=== PATIENT | male | born 1955 | race Caucasian/White ===

== ENCOUNTER 2017-08-17 10:33 | Observation (INO) | payer OTHER, SELFPAY ==
[2017-08-17] VITALS (12 sets, daily range): BP systolic 98–136; BP diastolic 63–79; PULSE 70–93; RESP 14–18; TEMP 36.7–36.9; O2SAT 91–100; BMI 30.1; BMI 30.2
--- NOTE | 2017-08-17 10:46 | EKG12_ITS ---
Test Reason : SYNCOPE Blood Pressure : / mmHG Vent. Rate : 090 BPM Atrial Rate : 090 BPM P-R Int : 170 ms QRS Dur : 106 ms QT Int : 398 ms P-R-T Axes : 035 -45 090 degrees QTc Int : 486 ms Normal sinus rhythm Left axis deviation T wave abnormality, consider lateral ischemia Abnormal ECG Confirmed by ASIYA FERREIRA, MINNIE ([id number]), video tape editor LUIS JAMES ([id number]) on 08/19/2017 4:05:46 PM Referred By: TEGAN Confirmed By:MINNIE BRADEN MD
--- NOTE | 2017-08-17 10:46 | RAD_ITS ---
STUDY: X-RAY CHEST REASON FOR EXAM: Male, 62 years old. Syncopal episode today. TECHNIQUE: Single AP portable view of the chest. COMPARISON: April 17, 2016. FINDINGS: Cardiac monitoring leads are present. The lungs are underexpanded with crowding of the bronchovascular markings. There is no demonstrated pleural abnormality. There is borderline cardiomegaly. Normal mediastinum and orin. Normal visualized pulmonary arteries. There is atherosclerotic tortuosity of the aortic arch and descending thoracic aorta. There is demineralization of the osseous structures. Normal visualized ribs, clavicles, and shoulders. There is no demonstrated abnormality of the visualized soft tissue structures of the upper abdomen. RAD/Chest 1 View (Portable) IMPRESSION: No radiographic evidence of acute cardiopulmonary disease. Electronically Signed: Melvina Isaac MD at 11:39 EST , Service support ,
--- NOTE | 2017-08-17 10:46 | CT_ITS ---
STUDY: CT BRAIN WITHOUT CONTRAST REASON FOR EXAM: Male, 62 years old. Syncope. Patient fell on back of head. RADIATION DOSAGE (If Supplied By Facility): CTDIvol = ( 44.99 ) mGy, DLP = ( 745.49 ) mGycm TECHNIQUE: Transaxial CT imaging of the brain was performed without administration of intravenous contrast material. Multiplanar reformations are submitted for interpretation. Individualized dose optimization techniques were used for this CT. COMPARISON: None. FINDINGS: Normal soft tissue structures. Normal calvarium. There is mild cerebral atrophy with widening of the extra-axial spaces and ventricular dilatation. There are areas of decreased attenuation within the white matter tracts of the supratentorial brain, consistent with microvascular disease changes. Normal basal ganglia and thalami. Normal brainstem. There is mild cerebellar atrophy. There is no intracranial hemorrhage. There is moderate atherosclerotic calcification of intracranial arteries. There may be mucous retention cyst within the posterior left-sided ethmoid sinus. There is deviation nasal septum towards the left. CT/Brain/Head without Contrast IMPRESSION: 1. Chronic involutional changes of the brain. Electronically Signed: Melvina Isaac MD at 11:58 EST , Service support ,
[2017-08-17] MEDS: 0.9% Normal Saline 1,000 ML 150 ML IV (11:08)
[2017-08-17 11:16] LABS: Anion Gap 8 (5-15); BUN 32 mg/dL (7-18); BUN/Creat Ratio 24.2 RATIO (10-20); Calcium,Total 9.7 mg/dL (8.5-10.1); Chloride 100 mmol/L (98-107); Creatinine, Serum 1.32 mg/dL (0.70-1.30); EST Glomerular Filtration Rate 59 mL/min (>60); Est Glom Filt Rate - Afr Amer 71 mL/min (>60); Estimated Creatinine Clearance 54.94 ml/min; Glucose 101 mg/dL (74-106); Potassium 3.6 mmol/L (3.5-5.1); Sodium Level 137 mmol/L (136-145)
[2017-08-17 11:24] LABS: Absolute Lymphocyte Count 1.85 X10^3/ul (0.83-4.51); Absolute Neutrophil Count 5.2 X10^3/uL (2.0-7.7); Basophil# 0.02 X10^3/uL; Basophil% 0.3 % (0-1); Eosinophil# 0.16 X10^3/uL; Eosinophils% 2.1 % (0-5); Hemoglobin 15.2 g/dl (13.0-16.5); Lymphocyte # 1.85 X10^3/ul (4.0); Lymphocyte % 23.8 % (19-41); Mean Corp Hgb Conc 36.2 g/gl (32-36); Mean Platelet Vol. 10.3 fl (6.2-12.0); Monocyte# 0.56 X10^3/uL; Monocyte% 7.2 % (0-10); Neutrophil # 5.18 X10^3/uL (2.7-7.7); Neutrophil % 66.5 % (47-70); Platelet Count 182 K/mm3 (150-450); RBC Distribution Width CV 12.5 % (11.6-14.6); RBC Distribution Width SD 37.3 fl (35.1-43.9); Red Blood Count 5.06 M/mm3 (4.6-6.2); White Blood Count 7.8 K/mm3 (4.4-11.0)
[2017-08-17 11:25] LABS: POSITIVE COUNT NO; POSITIVE DIFFERENTIAL NO; POSITIVE MORPHOLOGY NO
--- NOTE | 2017-08-17 12:06 | HP.PCM_ITS ---
Problem List (1) Syncope and collapse Status: Acute (2) Essential (primary) hypertension Status: Chronic (3) DM2 (diabetes mellitus, type 2) Status: Chronic History of Present Illness Date of Admission: 08/17/17 Chief Complaint: Passed out The patient is a 62 year old M with past medical history cigar for hypertension BPH coronary artery disease managed with only medications who presents after passing out. 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 He did not recall feeling lightheaded prior to the fall. He did not experience any chest pain prior to his passing out there was no witness account of his seizure activity. He was brought to the emergency department where his initial workup was unremarkable. Patient filled his syncopal episode was related to his low glucose however glucose level on admission was 110. Past Medical History Past Medical History (Chronic Problems): Chronic Problems Essential (primary) hypertension (Chronic) DM2 (diabetes mellitus, type 2) (Chronic) Allergies No Known Allergies Allergy (Verified 08/17/17 10:34) Home Medications: Ambulatory Orders Medication Instructions Recorded Amlodipine [Norvasc] 5 mg PO DAILY 10/05/16 Insulin Aspart [Novolog Flexpen 0 units SC 4X/DAY 10/05/16 ([facility])] Lisinopril [Prinivil] 10 mg PO DAILY 10/05/16 Metformin HCl [Glucophage] 500 mg PO DAILY 10/05/16 Metoprolol Tartrate [Lopressor 150 mg PO BID 10/05/16 (Beta Keisha)] Nortriptyline HCl 30 mg PO DAILY 10/05/16 Calcium Carbonate [Calcium] 100 mg PO DAILY 08/17/17 Indomethacin [Indocin] 25 mg PO BIDCM 08/17/17 [place]-3 Fatty Acids/Fish Oil [Fish 100 mg PO BID 08/17/17 Oil 1,000 mg Capsule] Pregabalin [Lyrica] 25 mg PO BID 08/17/17 Tamsulosin HCl [Flomax] 0.4 mg PO DAILY 08/17/17 Smoking Status: Never smoker - *Family History Paternal History Items: Heart Disease Sibling History Items: Heart Disease Review of Systems Constitutional: Denies: Anorexia, Chills, Fever, Night Sweats, Weight Change HEENT: Denies: Head Aches, Sinus Congestion, Sinus Drainage Cardiovascular: Reports: Syncope. Denies: Chest Pain, Orthopnea, Palpitations, Paroxysmal Noc. Dyspnea Respiratory: Denies: Cough, Shortness of breath at rest, Shortness of breath upon exertion, Sputum production Gastrointestinal: Denies: Abdominal Pain, Hematemesis, Hematochezia, Nausea, Melena, Vomiting Genitourinary: Denies: Dysuria, Frequency, Hematuria, Urgency Musculoskeletal: Denies: Joint Pain, Joint Tenderness Skin: Denies: Rash Neurological: Denies: Focal weakness, Numbness, Tingling Psychiatric: Denies: Homicidal Ideations, Suicidal Ideations Hematologic/ Lymphatic: Denies: Easy Bruising, Easy Bleeding VTE Information - Inpt Only VTE Present on Admission: No VTE Mechan Device Prophylaxis: Knee High RICKIE Hose VTE Pharm Prophylaxis ordered?: Yes Patient Problems: Active and Suspected Problems Syncope and collapse (Acute) Objective: GENERAL: cooperative HEENT: Clear conjunctiva, NECK; supple, normal thyroid, CHEST: Clear to auscultation bilaterally, HEART: Regular S1 S2, no audible murmurs ABDOMEN: soft, non-tender, normoactive bowel sounds, RECTAL: deferred EXTREMITIES: No edema, no clubbing, no cyanosis. 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 SKIN: No rash - Physical Exam Vital Signs Temp Pulse Resp BP Pulse Ox 98.0 F 92 17 107/78 95 08/17/17 10:34 08/17/17 11:36 08/17/17 11:36 08/17/17 11:36 08/17/17 11:36 Oxygen Delivery Method Room Air Weight: 87.3 kg Body Mass Index (BMI) 30.1 Finger Stick Blood Glucose 76 Laboratory Tests Past 24 Hrs 08/17/17 08/17/17 10:54 10:54 WBC 7.8 RBC 5.06 Hgb 15.2 Hct 42.0 MCV 83.0 MCH 30.0 MCHC 36.2 H RDW 12.5 RDW Differential 37.3 Plt Count 182 MPV 10.3 Immature Gran % (Auto) 0.100 Neut % (Auto) 66.5 Lymph % (Auto) 23.8 [place] % (Auto) 7.2 Eos % (Auto) 2.1 Baso % (Auto) 0.3 Absolute Neuts (auto) 5.2 Absolute Lymphs (auto) 1.85 Total Counted Not Reportable Sodium 137 Potassium 3.6 Chloride 100 Carbon Dioxide 29.0 Anion Gap 8 BUN 32 H Creatinine 1.32 H Estim Creat Clear Calc 54.94 Est GFR (MDRD) Af Amer 71 Est GFR (MDRD) Non-Af 59 L BUN/Creatinine Ratio 24.2 H Glucose 101 Calcium 9.7 Troponin I < 0.02 Assessment/Plan Active and Suspected Problems Syncope and collapse (Acute) Patient is a 62-year-old gentleman presented with syncopal episode 1. Syncopal episode: Patient has been admitted to monitored bed for continuous telemetry monitoring. Requested for every shift orthostatic checks. As part of his management ordered serial cardiac enzymes 2D echo and a nuclear stress test in a.m. 2. CAD with no previous intervention per patient managed with only medical therapy 3. BPH symptoms controlled on Flomax 4. Diabetes mellitus type 2: he is on metformin held on admission please and Accu-Cheks before meals and at bedtime with sliding scale coverage 5. DVT prophylaxis SC Lovenox Code Visit OBSV E&M: [id number] Initial observation care L3
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
--- NOTE | 2017-08-17 12:19 | ED.RN ---
JACOB FROM [facility]; WILL PASS INFORMATION ON TO A NURSE AND WILL HAVE SOMEONE CALL US BACK
--- NOTE | 2017-08-17 14:03 | ED.RN ---
JACOB WITH [facility]; DOES NOT HAVE AN FURTHER INFORMATION IN REGARDS TO ADMITTING PT IF WE FEEL THE NEED TO ADMIT THE PT TO OUR FLOOR WE CAN BUT HE (JACOB) CANNOT AUTHORIZE IT
--- NOTE | 2017-08-17 15:31 | ED.RN ---
[facility] TO [facility]ACH [facility] WITH NO SUCCESS
--- NOTE | 2017-08-17 17:14 | ED.RN ---
ATTEMPTED CONTACTING THE [facility] FOR STATUS ON THE PT; TRIED ALL BED CONTROL EXTENSIONS LISTED AND THERE WAS NO ANSWER OR WAY TO LEAVE A MESSAGE
--- NOTE | 2017-08-17 17:53 | ED.RN ---
ATTEMPTED TO CALL [facility]; NO ANSWER AND NO OPTION TO LEAVE A MESSAGE
--- NOTE | 2017-08-17 19:06 | NURSING ---
CALLED [facility] AND SPOKE [facility] BENJI AND SHE SAID THEY ARE NOT TAKING ANY OUTSIDE TRANSFERS SO THE PATIENT IS ALLOWED TO STAY HERE.
[2017-08-17] MEDS: 0.9% Normal Saline 1,000 ML 100 ML IV (20:37)
[2017-08-17] MEDS: Metoprolol Tartrate 100 MG Tablet 150 MG PO (21:58)
[2017-08-17] MEDS: Pregabalin 25 MG Capsule PO (22:04)
[2017-08-18 03:00] VITALS: PULSE 79
[2017-08-18 03:04] LABS: Partial Thromboplast Time 27.9 Seconds (24.1-36.2)
[2017-08-18 03:20] LABS: Hematocrit 40.6 % (40-54); Hemoglobin 14.6 g/dl (13.0-16.5); Mean Corpuscular Hgb 29.7 pg (27.0-32.0); Mean Corpuscular Volume 82.7 fL (80-94); Mean Platelet Vol. 10.5 fl (6.2-12.0); Platelet Count 172 K/mm3 (150-450); RBC Distribution Width CV 12.4 % (11.6-14.6); Red Blood Count 4.91 M/mm3 (4.6-6.2)
[2017-08-18 03:23] LABS: Scan Indicated on CBC? Y/N NO
[2017-08-18 03:31] LABS: Anion Gap 10 (5-15); BUN 23 mg/dL (7-18); BUN/Creat Ratio 22.3 RATIO (10-20); Calcium,Total 8.7 mg/dL (8.5-10.1); Chloride 104 mmol/L (98-107); Creatinine, Serum 1.03 mg/dL (0.70-1.30); EST Glomerular Filtration Rate 78 mL/min (>60); Est Glom Filt Rate - Afr Amer 94 mL/min (>60); Estimated Creatinine Clearance 67.96 ml/min; Glucose 67 mg/dL (74-106); Magnesium 1.9 mg/dL (1.6-2.6); Sodium Level 142 mmol/L (136-145)
[2017-08-18 04:00] VITALS: BP 144/93; PULSE 78; RESP 16; TEMP 36.9; O2SAT 99
[2017-08-18 04:49] VITALS: BP 140/86; BP 144/93; BP 146/94; PULSE 77; PULSE 78; PULSE 80
[2017-08-18] MEDS: Lisinopril 10 MG Tablet PO (05:17)
--- NOTE | 2017-08-18 05:55 | EKGRS_ITS ---
Test Reason : AM EKG Blood Pressure : / mmHG Vent. Rate : 079 BPM Atrial Rate : 079 BPM P-R Int : 168 ms QRS Dur : 106 ms QT Int : 438 ms P-R-T Axes : 038 -21 098 degrees QTc Int : 502 ms Normal sinus rhythm T wave abnormality, consider lateral ischemia Abnormal ECG When compared with ECG of 17-AUG-2017 10:38, MANUAL COMPARISON REQUIRED, DATA IS UNCONFIRMED Confirmed by ASIYA FERREIRA, MINNIE ([id number]), legal editor LUIS JAMES ([id number]) on 08/20/2017 1:43:04 PM Referred By: Confirmed By:MINNIE BRADEN MD
--- NOTE | 2017-08-18 05:55 | ECHOD_ITS ---
Reason For Study: Syncope/Near Syncope Procedure This was a 2D Doppler, Color Flow transthoracic echocardiogram. Exam performed portable in patient room. Left Ventricle Normal LV size. Left ventricular systolic function is normal. The estimated ejection fraction is 60 %. No evidence for diastolic dysfunction. No regional wall motion abnormalities noted. Right Ventricle Normal RV size. Normal systolic function. Atria Normal left atrium. Normal right atrium. Mitral Valve Normal mitral valve. Trivial eccentric mitral valve insufficiency. Tricuspid Valve Normal tricuspid valve. Trivial tricuspid valve insufficiency. Normal pulmonary artery pressure. Aortic Valve Normal aortic valve. Trisinus/trileaflet aortic valve. Pulmonic Valve Normal pulmonic valve. Great Vessels Normal aortic root. The pulmonary artery is normal size. Normal inferior vena cava. Pericardium/Pleural No pericardial effusion. MMode/2D Measurements & Calculations LVIDd: 4.5 cm IVSd: 1.1 cm Ao root diam: 3.1 cm LVIDs: 3.0 cm LVPWd: 0.97 cm LA dimension: 4.5 cm RVDd: 3.0 cm FS: 33.6 % LAV(MOD-bp): 26.6 ml LA A4 area: 10.1 cm2 RA A4 area: 5.8 cm2 LAV(MOD-bp) Indexed: 13.7 ml/m2 LAV(MOD-sp2): 30.8 ml LAV(MOD-sp4): 20.6 ml Doppler Measurements & Calculations MV E max eric: 54.4 cm/sec Lat Peak E' Eric: 7.1 cm/sec Med Peak E' Eric: 4.4 cm/sec MV A max eric: 79.0 cm/sec E/E' lat: 7.7 E/E' med: 12.4 MV E/A: 0.69 Ao V2 max: 105.4 cm/sec LV V1 max: 89.8 cm/sec Ao max P.4 mmHg LV V1 max P.2 mmHg Ao V2 mean: 85.7 cm/sec Ao mean P.1 mmHg Ao V2 VTI: 21.4 cm Interpretation Summary No evidence for diastolic dysfunction. Normal LV size. Left ventricular systolic function is normal. The estimated ejection fraction is 60 %. Ordering Physician: Tr Gutierrez Referring Physician: [facility] Performed By: Chandni Hull RDCS, RVT
[2017-08-18 06:35] LABS: Bedside Glucose 92 mg/dL (70-110)
[2017-08-18 09:57] VITALS: BP 146/86; PULSE 88; RESP 15; TEMP 36.6; O2SAT 96
[2017-08-18 10:00] VITALS: BP 146/86; PULSE 88
[2017-08-18] MEDS: Tamsulosin HCl 0.4 MG Capsule PO (10:00)
[2017-08-18] MEDS: Metoprolol Tartrate 100 MG Tablet 150 MG PO (10:00)
[2017-08-18] MEDS: amLODIPine 5 MG Tablet PO (10:01)
--- NOTE | 2017-08-18 10:08 | CASEMGMT ---
Received message from Kathleen at [place] and she would like update on pt. Message left with Kathleen at this time and updated that pt is observation and is getting ECHO and Stress test here this am. Augustus TOLEDO CM
[2017-08-18] MEDS: Pregabalin 25 MG Capsule PO (10:13)
[2017-08-18] MEDS: Calcium (Elemental) 500 MG Tablet PO (10:14)
[2017-08-18] MEDS: Nortriptyline 10 MG Capsule 30 MG PO (10:15)
--- NOTE | 2017-08-18 12:09 | STRESSREP ---
Stress Test Report Pharmacologic myocardial perfusion stress test. 62-year-old man with a history of syncope. Stress protocol: Resting EKG demonstrated normal sinus rhythm with rate of 87 bpm. Resting blood pressure is 130/88 mmHg. The patient exercised according to the regular Elvis protocol for total duration of 3 minutes attaining 69% of the maximum predicted heart rate and a workload of 4.9 metabolic equivalents. The patient was noted to have shortness of breath and with failure to obtain the exercise goal it was switched to a pharmacologic stress test. 0.4 mg regadenoson was infused per usual protocol followed by rapid intravenous saline flush injection continuous EKG monitoring was performed. At rest there were no ST or T-wave changes noted suggest abnormal flow reserve at peak infusion no ST or T-wave changes were noted suggest abnormal flow reserve. The resting blood pressure was with a final blood pressure 132/80 mmHg. Myocardial perfusion protocol. 11.6 mCi of technetium 99m sestamibi was injected at rest. 0.4 mg regadenoson was infused per usual protocol. At peak infusion 33.9 mCi of technetium 99m sestamibi was injected. Stress images were obtained. Stress and rest images were reconstructed and compared in the short axis vertical long and horizontal long axis. Gated images were also obtained. Perfusion SPECT analysis. Review of the stress images demonstrated normal uptake of tracer noted in all areas of the myocardium. The resting images similarly demonstrated normal uptake of tracer in all areas of the myocardium. There is significant GI and diaphragmatic attenuation artifact noted. No obvious reversibility is noted and no previous infarct is noted. Gated SPECT analysis. Gated ejection fraction is 56%. Conclusion: Normal pharmacologic myocardial perfusion stress test. Normal ejection fraction.
[2017-08-18 12:30] LABS: Bedside Glucose 52 mg/dL (70-110)
--- NOTE | 2017-08-18 12:55 | PCM.PN.HOSP ---
Patient Problems: Active and Suspected Problems Syncope and collapse (Acute) Subjective: No new events. Vitals/I&O's: Vital Signs Temp Pulse Resp BP Pulse Ox 36.6 C 88 15 146/86 H 96 08/18/17 09:57 08/18/17 10:00 08/18/17 09:57 08/18/17 10:00 08/18/17 09:57 Oxygen Delivery Method Room Air Weight: 84.9 kg Body Mass Index (BMI) 30.2 Orthostatic Vital Signs Start: 08/18/17 04:49 Freq: q24h Status: Active Protocol: Activity Type Activity Date Activity User E-Sign Co-Sign Detail Recorded Client Recorded Date Recorded By Document 08/18/17 04:49 [employer] [id number] 08/18/17 04:51 [employer] 08/18/17 04:49 Orthostatic Vitals Standing -Blood Pressure (90/60-120/80 mm Hg) 140/86 H -Extremity Use Right Arm -Pulse Rate (60-100 beats/min) 80 Sitting -Blood Pressure (90/60-120/80 mm Hg) 146/94 H -Extremity Use Right Arm -Pulse Rate (60-100 beats/min) 77 Lying -Blood Pressure (90/60-120/80 mm Hg) 144/93 H -Extremity Use Right Arm -Pulse Rate (60-100 beats/min) 78 Intake and Output for Last 24 Hours 08/16/17 08/17/17 08/18/17 23:59 23:59 23:59 Intake Total 2318 / 2318 Output Total 250 / 250 Balance 2067 / 2067 General: Alert HEENT: Atraumatic, Normocephalic Neck: No Nodes, Thyroid Normal Size and Texture Lungs: Clear to auscultation, Normal air movement, No rhonchi, No wheeze Cardiovascular: Regular rate, Regular Rhythm, Normal S1, Normal S2, No murmurs Abdomen: Bowel Sounds Present, Soft, Non Tender, Non-Distended, No Hepato-splenomegaly Extremities: No edema, No Calf Tenderness Psych/Mental Status: Normal Affect, Appropriate Laboratory Results 08/18/17 02:20: WBC 8.0, RBC 4.91, Hgb 14.6, Hct 40.6, MCV 82.7, MCH 29.7, MCHC 36.0, RDW 12.4, RDW Differential 37.0, Plt Count 172, MPV 10.5 08/18/17 02:20: Sodium 142, Potassium 4.0, Chloride 104, Carbon Dioxide 28.0, Anion Gap 10, BUN 23 H, Creatinine 1.03, Estim Creat Clear Calc 67.96, Est GFR (MDRD) Af Amer 94, Est GFR (MDRD) Non-Af 78, BUN/Creatinine Ratio 22.3 H, Glucose 67 L, Calcium 8.7, Magnesium 1.9 08/18/17 02:20: APTT 27.9 08/18/17 02:20: Troponin I < 0.02 08/18/17 06:10: Troponin I < 0.02 08/18/17 06:18: POC Glucose 92 08/18/17 12:11: POC Glucose 52 L Current Medications Acetaminophen (Tylenol) 650 mg PO Q6H PRN PRN PRN Reason: Mild Pain (scale 0-3)/T>100.7 Al Hydroxide/Mg Hydroxide (Mylanta Ii) 30 ml PO Q6H PRN PRN PRN Reason: Gastric burning Amlodipine Besylate (Norvasc) 5 mg PO DAILY [facility] Last Admin: 08/18/17 10:01 Dose: 5 mg Calcium Carbonate (Os-Larry 500) 500 mg PO DAILY [facility] Last Admin: 08/18/17 10:14 Dose: 500 mg Dextrose (D50w Syringe) 0 gm IV X1 PRN; Protocol PRN Reason: Hypoglycemia Enoxaparin Sodium (Lovenox) 40 mg SC DAILY@1000 DIMPLE Glucagon () 1 mg IM .X1 PRN PRN Reason: Hypoglycemia Sodium Chloride () 1,000 mls @ 100 mls/hr IV .Q10H [facility] Stop: 08/19/17 01:24 Last Admin: 08/17/17 20:37 Dose: 100 mls/hr Insulin Aspart (Novolog Flexpen ([facility])) 0 units SC ACHS DIMPLE PRN Reason: Protocol Last Admin: 08/18/17 12:15 Dose: Not Given Lisinopril (Zestril) 10 mg PO DAILY [facility] Last Admin: 08/18/17 05:17 Dose: 10 mg Magnesium Hydroxide (Milk Of Magnesia) 30 ml PO DAILY PRN PRN Reason: Constipation Metoprolol Tartrate (Lopressor (Beta Keisha)) 150 mg PO BID [facility] Last Admin: 08/18/17 10:00 Dose: 150 mg Nortriptyline HCl (Pamelor) 30 mg PO DAILY [facility] Last Admin: 08/18/17 10:15 Dose: 30 mg Oxycodone HCl (Oxyir) 5 mg PO Q4H PRN PRN PRN Reason: Moderate Pain (pain scale 4-5) Pregabalin (Lyrica) 25 mg PO BID [facility] Last Admin: 08/18/17 10:13 Dose: 25 mg Promethazine HCl (Phenergan (Ll)) 12.5 mg IV Q6H PRN PRN PRN Reason: NAUSEA/VOMITING Sodium Chloride () 5 - 30 ml IV UD PRN PRN Reason: SALINE FLUSH Tamsulosin HCl (Flomax) 0.4 mg PO DAILY [facility] Last Admin: 08/18/17 10:00 Dose: 0.4 mg Zolpidem Tartrate (Ambien (Generic)) 5 mg PO QHS PRN PRN PRN Reason: INSOMNIA Assessment/Plan Active and Suspected Problems Syncope and collapse (Acute) 1. Syncope Suspect vasovagal but still unclear what the etiology was. Stress test and echocardiogram are unremarkable. Patient states that he does not drink alcohol and states that he drinks about a liter of non-caffeinated fluid per day. States he drinks about a cup of coffee per day and on relocation may be one more cup of coffee a later. Patient said he did have some ptosis in the morning. Patient blood sugar was in the 1 teens when I assessed him so and patient states that he has tolerated those blood sugars even though his blood sugars normally in the 200 300 range. No feel that it was related with hypoglycemia but this single episode may been a multifactorial issue in regards to lower blood sugar for him plus may be some dehydration as well. Advised patient to drink more fluids per day. But no additional cardiac workup is necessary at this time.
--- NOTE | 2017-08-18 12:58 | PCM.DC ---
- Discharge Diagnoses Current Active Problems: Current Active and Chronic Problems Syncope and collapse (Acute) Essential (primary) hypertension (Chronic) DM2 (diabetes mellitus, type 2) (Chronic) You will use the following diet at home:: Calorie/Carbohydrate Controlled (specify 1200, 1400, etc) - 1800 kcal/day., Other - drink more non-caffeinated fluids Your food should be the consistency of: Regular Discharge Activity: Return to Normal Activity Call your doctor if you observe: Fever of 101 or Higher, Shortness of breath, Fainting spells, Chest pain Allergies/Adverse Reactions: Allergies No Known Allergies Allergy (Verified 08/17/17 10:34) Medications to take at Discharge Amlodipine [Norvasc] 10 mg PO DAILY 10/05/16 Insulin Aspart [Novolog Flexpen] See Protocol SC 4X/DAY 10/05/16 Lisinopril [Prinivil] 20 mg PO DAILY 10/05/16 Metformin HCl [Glucophage] 500 mg PO DAILY 10/05/16 Metoprolol Tartrate [Lopressor (beta jay)] 150 mg PO BID 10/05/16 Nortriptyline HCl 20 mg PO DAILY 10/05/16 Calcium Carbonate [Calcium] 500 mg PO DAILY 08/17/17 Cholecalciferol (VIT D3) [Vitamin D3] 1,000 unit PO DAILY 08/17/17 Indomethacin [Indocin] 25 mg PO BIDCM 08/17/17 Insulin Glargine,Hum.rec.anlog [Lantus] 65 unit SQ BID 08/17/17 Liraglutide [Victoza] 1.8 mg SQ DAILY 08/17/17 [place]-3 Fatty Acids/Fish Oil [Fish Oil 1,000 mg Capsule] 1,000 mg PO BID 08/17/17 Pregabalin [Lyrica] 25 mg PO BID 08/17/17 Tamsulosin HCl [Flomax] 0.4 mg PO DAILY 08/17/17 Primary Care Physician: [facility] [Primary Care Provider] - Within 2 Weeks Proposed Discharge Date: 08/18/17
--- NOTE | 2017-08-18 13:00 | PCM.DC.SUM ---
Discharge Date and Diagnosis - Problem List Patient Problems: Active and Suspected Problems Syncope and collapse (Acute) Date of Admission: 08/17/17 Date of Discharge: 08/18/17 - Primary Discharge Diagnosis Active and Suspected Problems Syncope and collapse (Acute) - Secondary Discharge Diagnosis Chronic Problems Essential (primary) hypertension (Chronic) DM2 (diabetes mellitus, type 2) (Chronic) Hospital Course and Treatment Imaging Results: 08/18/17 05:55 Echo Complete [ECHO] AM (NON MEDS) Nuclear Stress Test - Chemical [NM] Routine Operations: None Procedures: 2-D Echocardiogram, Stress test Summary of Care Provided: The patient is a 62 year old M presented with a syncopal episode. 1. Syncope Suspect vasovagal but still unclear what the etiology was. Stress test and echocardiogram are unremarkable. Patient states that he does not drink alcohol and states that he drinks about a liter of non-caffeinated fluid per day. States he drinks about a cup of coffee per day and on relocation may be one more cup of coffee a later. Patient said he did have some ptosis in the morning. Patient blood sugar was in the 1 teens when I assessed him so and patient states that he has tolerated those blood sugars even though his blood sugars normally in the 200 300 range. No feel that it was related with hypoglycemia but this single episode may been a multifactorial issue in regards to lower blood sugar for him plus may be some dehydration as well. Advised patient to drink more fluids per day. But no additional cardiac workup is necessary at this time.[] Discharge Diet: 1800 Calorie Control Diet Discharge Activity: Return to Normal Activity Call your doctor if you observe: Fever of 101 or Higher, Shortness of breath, Fainting spells, Chest pain Home Medications: Medications to take at Discharge Amlodipine [Norvasc] 10 mg PO DAILY 10/05/16 Insulin Aspart [Novolog Flexpen] See Protocol SC 4X/DAY 10/05/16 Lisinopril [Prinivil] 20 mg PO DAILY 10/05/16 Metformin HCl [Glucophage] 500 mg PO DAILY 10/05/16 Metoprolol Tartrate [Lopressor (beta jay)] 150 mg PO BID 10/05/16 Nortriptyline HCl 20 mg PO DAILY 10/05/16 Calcium Carbonate [Calcium] 500 mg PO DAILY 08/17/17 Cholecalciferol (VIT D3) [Vitamin D3] 1,000 unit PO DAILY 08/17/17 Indomethacin [Indocin] 25 mg PO BIDCM 08/17/17 Insulin Glargine,Hum.rec.anlog [Lantus] 65 unit SQ BID 08/17/17 Liraglutide [Victoza] 1.8 mg SQ DAILY 08/17/17 [facility]-3 Fatty Acids/Fish Oil [Fish Oil 1,000 mg Capsule] 1,000 mg PO BID 08/17/17 Pregabalin [Lyrica] 25 mg PO BID 08/17/17 Tamsulosin HCl [Flomax] 0.4 mg PO DAILY 08/17/17 Primary Care Physician: [facility],[place] [Primary Care Provider] - Within 2 Weeks Disposition: Home Minutes spent on discharge:: 28 Patient Condition:: Fair Meaningful Use Info Meaningful Use Diagnoses (Choose all that apply): None applicable Code Visit OBSV E&M: 51138 Observation care discharge
[2017-08-18 13:57] VITALS: BP 127/78; PULSE 90; RESP 14; TEMP 36.5; O2SAT 99
[2017-08-19 09:36] LABS: Bedside Glucose 46 mg/dL (70-110)
[2017-08-19 09:36] LABS: Bedside Glucose 94 mg/dL (70-110)
[2017-08-19 09:36] LABS: Bedside Glucose 66 mg/dL (70-110)
--- NOTE | 2017-08-19 09:50 | CASEMGMT ---
Call received from JENNIFER Wang @ [facility] requesting clinical. Information faxed to [phone] and dc date given. Osorio HUIZARN RN ACM
== END 2017-08-18 12:59 | disposition home or self-care (01) ==
LOC: ED 11:23 → PCU 12:16
PROVIDERS: Admitting Provider Internal Medicine; Emergency Provider Emergency Medicine
DX: R55 Syncope and collapse (principal); I10 Essential (primary) hypertension; E11.9 Type 2 diabetes mellitus without complications; N40.0 Benign prostatic hyperplasia without lower urinary tract symptoms; I25.10 Atherosclerotic heart disease of native coronary artery without angina pectoris; Z79.899 Other long term (current) drug therapy; Z79.4 Long term (current) use of insulin
CPT/HCPCS: 36415; 70450; 71045; 78452; 80048; 82962; 83735; 84484; 85025; 85027; 85730; 93005; 93017; 93306; 96360; 96361; 99218; 99285; A9500; J7030; A4216; G0378; J2785

== ENCOUNTER 2018-01-26 21:44 | Emergency (ER) | payer OTHER, SELFPAY ==
[2018-01-26 21:44] VITALS: BP 147/94; PULSE 103; RESP 16; TEMP 37.1; O2SAT 95; BMI 31.4
--- NOTE | 2018-01-26 23:18 | ED.VISSUMM ---
- ER Visit Summary Date of Service: 01/26/18 Chief Complaint: Left earache History of Present Illness: The patient is a 62 M history of noncemented diabetes, hypertension and spinal stenosis. Basically states for 1 week he has had left ear pain. He was seen at the [facility] and started on both amoxicillin and eardrops. On Friday. States is getting worse instead of better. Denies other symptoms. Physical Examination: Well-appearing white male. Vital signs are stable afebrile. He does not look septic toxic. No acute distress. Posterior pharynx unremarkable. Some dental decay and cavities. Right ear is unremarkable. Left has obvious otitis externa and the ear canal is completely closed I cannot see the eardrum at all. Currently there is no discharge or blood. Neck nontender. No lymphadenopathy. Lungs are clear to auscultation. Heart regular rhythm no murmur. Abdomen soft nontender. Neurologically is awake and alert. Test Results: None Emergency Department Course and Treatment: I placed a left ear wick in his left ear. That should help and now we will get the eardrops down the ear. He will continue both the amoxicillin and the Corticosporin eardrops. He knows if this is not improving he will follow-up with ENT. Treatment Plan: Discharged on current therapy. Disposition: Discharge Impression: Acute left otitis externa Ear wick placed by ER physician This note was generated with [employer] dictation software. It may contain incorrect words, spelling, and punctuation that were not noted in review of the chart prior to signing ED Disposition - Plan for ED Patient: Chief Complaint: Ear Problem [facility]errals: [facility] [Primary Care Provider] -
--- NOTE | 2018-01-26 23:20 | ED.DEP ---
ED Disposition - Plan for ED Patient: Disposition: Home or Assisted Living Chief Complaint: Ear Problem Instructions: ED Otitis Externa Referrals: [facility] [Primary Care Provider] - As Needed Tito Cantu MD [STAFF PHYSICIAN] - 1-2 Days if not improving Additional Instructions: Continue eardrops to left ear 3 drops 4 times a day. The canal was too swollen for the drops to go in. The earwax should help that. Continue the amoxicillin 3 times a day. If not improving in 2 days follow-up with the ear nose and throat Dr. Cantu. Tylenol and Motrin for pain.
== END 2018-01-26 23:36 | disposition home or self-care (01) ==
PROVIDERS: Emergency Provider Emergency Medicine
DX: H60.502 Unspecified acute noninfective otitis externa, left ear (principal); K02.9 Dental caries, unspecified; E11.9 Type 2 diabetes mellitus without complications; I10 Essential (primary) hypertension
CPT/HCPCS: 99282

== ENCOUNTER 2018-01-29 21:33 | Emergency (ER) | payer OTHER, SELFPAY ==
[2018-01-29 21:34] VITALS: BP 154/101; PULSE 112; RESP 20; TEMP 37.1; O2SAT 95; BMI 31.8
--- NOTE | 2018-01-29 22:00 | ED.VISSUMM ---
- ER Visit Summary Date of Service: 01/29/18 Chief Complaint: [Left ear pain] History of Present Illness: The patient is a 62 M [presents the emergency department complaint left ear pain that he has had for about 5 days. Patient states that initially about 4 days ago was seen at the [place] [facility] and started on Cortisporin Otic drops and amoxicillin. Patient continued to have pain and was seen 2 days ago in this emergency department and had a wick placed to the left ear and continued on the same medications. Patient states that he felt better yesterday but today started having more discomfort. Patient denies any fevers.] Physical Examination: [HEENT-PERRLA, EOMI. Cranial nerves II through XII grossly intact. Right TM clear.. Mucous membranes moist. No adenopathy. Left ear-patient does have pain with traction on the left pinna. No drainage noted. Patient does have edema of the ear canal however with traction on the pinna I am able to open up the ear canal slightly and see that the wick is still in place. Patient has no tenderness over the mastoid. No erythema over the mastoid. Cardiovascular-regular rate and rhythm without murmur or ectopy Lungs-clear to auscultation, chest wall stable without crepitus or subcu emphysema Abdomen-normoactive bowel sounds, soft, nontender, no rebound or rigidity, no peritoneal signs. Extremities-intact ?4, normal range of motion, normal pulses, atraumatic] Test Results: [None indicated] Emergency Department Course and Treatment: [Case was discussed with Dr. Ventura Venegas who is on-call for ENT who recommended that we start patient on Cipro oral medication. Patient also will be given [place] for pain] Treatment Plan: [Cipro and [place] for pain.] Patient to follow-up with Dr. Ventura Venegas in the office early next week. Disposition: [Discharged home in stable condition] Impression: [Left otitis externa.] This note was generated with [employer] dictation software. It may contain incorrect words, spelling, and punctuation that were not noted in review of the chart prior to signing ED Disposition - Plan for ED Patient: Chief Complaint: Ear Problem Referrals: [facility] [Primary Care Provider] -
--- NOTE | 2018-01-29 22:03 | ED.DEP ---
ED Disposition - Plan for ED Patient: Chief Complaint: Ear Problem Instructions: ED Otitis Externa Prescriptions: Hydrocodone/Acetaminophen [[place] 5-325 Tablet] 1 - 2 ea PO 4X/DAY PRN PRN 3 Days #12 tab PRN Reason: Pain Ciprofloxacin [Cipro] 500 mg PO BID #14 tab Referrals: [facility],[place] [Primary Care Provider] - Ventura Meeks MD [STAFF PHYSICIAN] - 3-5 Days
[2018-01-29] MEDS: Ciprofloxacin 250 MG Tablet 500 MG PO (22:23)
[2018-01-29] MEDS: HYDROcodone Bitartrate/Apap 5/325 Tablet PO (22:23)
== END 2018-01-29 22:25 | disposition home or self-care (01) ==
LOC: ED 22:04
PROVIDERS: Emergency Provider Emergency Medicine
DX: H92.02 Otalgia, left ear (principal); H60.92 Unspecified otitis externa, left ear; E11.9 Type 2 diabetes mellitus without complications; I10 Essential (primary) hypertension
CPT/HCPCS: 99283

== ENCOUNTER 2018-03-21 22:01 | Emergency (ER) | payer OTHER, SELFPAY ==
[2018-03-21 22:01] VITALS: BP 161/96; PULSE 114; RESP 15; TEMP 37.3; O2SAT 97; BMI 32.3
--- NOTE | 2018-03-21 22:19 | ED.DCSUM_ITS ---
- ER Visit Summary Date of Service: 03/21/18 Chief Complaint: Left eye swelling History of Present Illness: The patient is a 63 M who has swelling around his left eye. It started today. He had [facility] on at the [facility]. He states that they operated on his mastoid bone. He was found to have a fungal infection. He is currently on ciprofloxacin and an antifungal. He states he woke up today with swelling around the left eye. He also has some throat discomfort as well. Denies any eye drainage. No fevers. Physical Examination: Vital signs reviewed. HEENT exam reveals some erythema around the left eye. He has no pain with extraocular movements. The left mastoid wound is clean dry and intact. There is no erythema. Heart is regular rate and rhythm. Lungs are clear. Abdomen is soft. Neurologic exam normal Test Results: None performed Emergency Department Course and Treatment: Patient has an element of preseptal cellulitis. I do not feel that this is orbital cellulitis. He will be treated with Augmentin and bacitracin ophthalmic. He will continue his other medications and [facility] Treatment Plan: [] Disposition: Discharge Impression: Pre-septal cellulitis This note was generated with [employer] dictation software. It may contain incorrect words, spelling, and punctuation that were not noted in review of the chart prior to signing ED Disposition - Plan for ED Patient: Chief Complaint: Other, Pain/Inj [facility] [Primary [facility]] -
--- NOTE | 2018-03-21 22:19 | ED.DEP ---
ED Disposition - Plan for ED Patient: Disposition: Home or Assisted Living Chief Complaint: Other, Pain/Inj Instructions: ED Cellulitis Facial Prescriptions: Amox/Clavulanate Tablet [Augmentin Tablet] 875 mg PO Q12H #14 tab [facility] [Primary [facility] Provider] -
[2018-03-21] MEDS: Amox/Clavulanate 875 MG Tablet PO (22:20)
[2018-03-21 22:22] VITALS: RESP 18
== END 2018-03-21 22:24 | disposition home or self-care (01) ==
PROVIDERS: Emergency Provider Emergency Medicine
DX: L03.213 Periorbital cellulitis (principal); B49 Unspecified mycosis; E11.9 Type 2 diabetes mellitus without complications; I10 Essential (primary) hypertension
CPT/HCPCS: 99283

== ENCOUNTER 2018-03-22 13:36 | Emergency (ER) | payer OTHER, SELFPAY ==
[2018-03-22 13:36] VITALS: BP 125/83; PULSE 118; RESP 19; TEMP 36.8; O2SAT 99; BMI 32.3
--- NOTE | 2018-03-22 13:53 | RAD_ITS ---
STUDY: X-RAY - ABDOMEN/PELVIS REASON FOR EXAM: Male, 63 years old. Constipation TECHNIQUE: 3 views COMPARISON: None. FINDINGS: Normal visualized lung bases. There is an unremarkable bowel gas pattern. Mild fecal retention. There is no demonstrated free abdominal air. Surgical clips in the right upper quadrant. Normal soft tissue structures. Degenerative vertebral changes. Prior vertebroplasty of L4. RAD/Abdomen Single View IMPRESSION: Mild fecal retention without bowel obstruction. Electronically Signed: Juan A Vargas DO at 14:57 EDT Tel [phone], Service support ,
--- NOTE | 2018-03-22 13:53 | ED.VISSUMM ---
- ER Visit Summary Date of Service: 03/22/18 Chief Complaint: Constipation History of Present Illness: The patient is a 63 M history of spinal stenosis and insulin-dependent diabetes and hypertension. Patient states that for the last 4-5 days he has not had any bowel movement since Friday or Friday. Denies nausea or vomiting. Mild abdominal and discomfort. He denies any diarrhea. He denies any dish she is able to urinate. Denies any fever. No abdominal trauma. He has had a prior cholecystectomy. Also 2 prior hernia surgeries. Physical Examination: Well-appearing older male vital signs are stable afebrile. Pulse ox 99% room air no signs of hypoxia. Initial blood pressure 125/83. HEENT exam unremarkable. Moist wheeze membranes. Neck nontender. Lungs clear to auscultation bilaterally. Heart regular rhythm rate about 100 no murmur. Abdomen soft. Nondistended. Normal bowel sounds. No peritoneal signs. No hernias or masses. No signs of obstruction. No right or left upper quadrant tenderness. Moving all 4 extremities. Neurovascular intact. No cauda equina. No saddle anesthesia. Normal medial thigh sensation. Normal dorsi and plantarflexion. Back nontender. Neurologically is awake alert with no focal motor deficits currently. Test Results: KUB was obtained shows stool in the rectum and throughout the colon. No signs of obstruction. No free air. Emergency Department Course and Treatment: Patient was initially treated with p.o. mag citrate 300 mL's. Pleasant have any significant results. Then received a soapsuds enema and is currently on the bedside commode having a bowel movement and states he is feeling better. Treatment Plan: Discharged home with treatment for constipation. Fluids. Fiber. Stool softener as needed. Disposition: Discharge Impression: Acute constipation This note was generated with [employer] dictation software. It may contain incorrect words, spelling, and punctuation that were not noted in review of the chart prior to signing ED Disposition - Plan for ED Patient: Chief Complaint: Constipation Referrals: [facility],[place] [Primary Care Provider] -
--- NOTE | 2018-03-22 13:59 | ED.DCSUM_ITS ---
- ER Visit Summary Date of Service: 03/22/18 Chief Complaint: Constipation History of Present Illness: The patient is a 63 M history of spinal stenosis and insulin-dependent diabetes and hypertension. Patient states that for the last 4-5 days he has not had any bowel movement since Friday or Friday. Denies nausea or vomiting. Mild abdominal and discomfort. He denies any diarrhea. He denies any dish she is able to urinate. Denies any fever. No abdominal trauma. He has had a prior cholecystectomy. Also 2 prior hernia surgeries. Physical Examination: Well-appearing older male vital signs are stable afebrile. Pulse ox 99% room air no signs of hypoxia. Initial blood pressure 125/83. HEENT exam unremarkable. Moist wheeze membranes. Neck nontender. Lungs clear to auscultation bilaterally. Heart regular rhythm rate about 100 no murmur. Abdomen soft. Nondistended. Normal bowel sounds. No peritoneal signs. No hernias or masses. No signs of obstruction. No right or left upper quadrant tenderness. Moving all 4 extremities. Neurovascular intact. No cauda equina. No saddle anesthesia. Normal medial thigh sensation. Normal dorsi and plantarflexion. Back nontender. Neurologically is awake alert with no focal motor deficits currently. Test Results: KUB was obtained shows stool in the rectum and throughout the colon. No signs of obstruction. No free air. Emergency Department Course and Treatment: Patient was initially treated with p.o. mag citrate 300 mL's. Pleasant have any significant results. Then received a soapsuds enema and is currently on the bedside commode having a bowel movement and states he is feeling better. Treatment Plan: Discharged home with treatment for constipation. Fluids. Fiber. Stool softener as needed. Disposition: Discharge Impression: Acute constipation This note was generated with [employer] dictation software. It may contain incorrect words, spelling, and punctuation that were not noted in review of the chart prior to signing ED Disposition - Plan for ED Patient: Chief Complaint: Constipation Referrals: [facility],[place] [Primary Care Provider] -
[2018-03-22] MEDS: Magnesium Citrate 300 ML PO (14:17)
--- NOTE | 2018-03-22 15:46 | ED.DEP ---
ED Disposition - Plan for ED Patient: Disposition: Home or Assisted Living Chief Complaint: Constipation Instructions: ED Constipation [facility] - As Needed Additional Instructions: Plenty of fluids, fruits, vegetables and fiber. Stool softener as needed. Xhcb-sab-tmorogn magnesium citrate as needed for constipation. Return to the ER if feeling worse such as increasing abdominal pain or fever. [facility] with [facility] as [facility].
[2018-03-22 16:23] VITALS: BP 124/79; PULSE 110; RESP 16
== END 2018-03-22 16:25 | disposition home or self-care (01) ==
PROVIDERS: Emergency Provider Emergency Medicine
DX: K59.00 Constipation, unspecified (principal); I10 Essential (primary) hypertension; E11.9 Type 2 diabetes mellitus without complications; Z79.4 Long term (current) use of insulin; Z90.49 Acquired absence of other specified parts of digestive tract
CPT/HCPCS: 74018; 99284

== ENCOUNTER 2019-06-17 01:36 | Emergency (ER) | payer OTHER, SELFPAY ==
[2019-06-17 01:37] VITALS: BP 155/88; PULSE 85; RESP 17; TEMP 36.9; O2SAT 96; BMI 29.4
[2019-06-17 01:46] LABS: Bedside Glucose > 500 mg/dL (70-110)
--- NOTE | 2019-06-17 01:47 | ED.RN ---
PT REPORTS TAKING LANTUS TONIGHT AROUND 11 PM.
[2019-06-17 02:16] LABS: Absolute Lymphocyte Count 1.78 X10^3/uL (0.83-4.51); Absolute Neutrophil Count 3.4 X10^3/uL (2.0-7.7); Basophil# 0.04 X10^3/uL; Basophil% 0.7 % (0-1); Eosinophil# 0.08 X10^3/uL; Eosinophils% 1.3 % (0-5); Hematocrit 39.8 % (40-54); Lymphocyte # 1.78 X10^3/ul (4.0); Lymphocyte % 29.8 % (19-41); Mean Corp Hgb Conc 35.2 g/dL (32-36); Mean Corpuscular Hgb 28.9 pg (27.0-32.0); Mean Corpuscular Volume 82.2 fL (80-94); Mean Platelet Vol. 10.7 fl (6.2-12.0); Monocyte# 0.68 X10^3/uL; Monocyte% 11.4 % (0-10); NRBC Flagged by Analyzer 0 % (0-5); Neutrophil # 3.39 X10^3/uL (2.7-7.7); Neutrophil % 56.6 % (47-70); Platelet Count 187 K/mm3 (150-450); RBC Distribution Width CV 11.9 % (11.6-14.6); RBC Distribution Width SD 35.5 fl (35.1-43.9); Red Blood Count 4.84 M/mm3 (4.6-6.2)
[2019-06-17 02:39] LABS: Anion Gap 9 (5-15); BUN 11 mg/dL (7-18); BUN/Creat Ratio 7.1 RATIO (10-20); Chloride 92 mmol/L (98-107); Creatinine, Serum 1.54 mg/dL (0.70-1.30); EST Glomerular Filtration Rate 49 mL/min (>60); Est Glom Filt Rate - Afr Amer 59 mL/min (>60); Estimated Creatinine Clearance 44.31 ml/min; Glucose 778 mg/dL (74-106); Potassium 4.2 mmol/L (3.5-5.1); Sodium Level 128 mmol/L (136-145)
--- NOTE | 2019-06-17 02:42 | ED.RN ---
DR DELGADILLO AWARE OF BLOOD SUGAR 778.
[2019-06-17] MEDS: Insulin Lispro 100 UNIT/ML INSULN.PEN 30 UNIT SC (02:55)
[2019-06-17] MEDS: 0.9% Normal Saline 1,000 ML 1000 ML IV ×2 (02:55→02:56)
[2019-06-17 03:40] VITALS: BP 133/85; RESP 18; O2SAT 95
[2019-06-17 04:06] LABS: Bedside Glucose 379 mg/dL (70-110)
--- NOTE | 2019-06-17 04:21 | ED.DCSUM_ITS ---
History of Present Illness Chief Complaint: Hyperglycemia Informant: Patient Narrative: Patient stated that he felt some numbness and tingling while he was trying to urinate side. He has chronic neuropathy in his lower extremities. He stated that his left lower leg started to cramp up and he had to be assisted to the ground and helped up by his family member. EMS brought him in for further evaluation. He stated he has been eating unhealthy throughout the holidays. He has not been checking his blood sugars frequently. He is on insulin therapy both long-acting and short acting as well as oral treatment. Denies any polyuria or polydipsia. States his neuropathy is at baseline. The cramping in his leg has resolved. He has no active symptoms at this time. - Past Medical History (1) Syncope and collapse Status: Acute (2) DM2 (diabetes mellitus, type 2) Status: Chronic (3) Essential (primary) hypertension Status: Chronic Past Medical History - Allergies and Home Meds Allergies/Adverse Reactions: Allergies No Known Allergies Allergy (Verified 06/17/19 01:36) Primary Care Physician: [facility],[place] [Primary Care Provider] - Prior records reviewed: Yes Past Medical History: - - See problem list Surgical History: noncontributory Smoking Status: Former smoker Alcohol: Occasional Drugs: None - Family History Paternal Family History: Reports: Heart Disease Sibling Family History: Reports: Heart Disease Review of Systems General: Denies: Chills, Fever, Sweats Eyes: Denies: Visual changes - bilaterally, Diplopia ENT: Denies: Rhinorrhea, Sore throat Cardiovascular: Denies: Chest pain, Palpitations Respiratory: Denies: Dyspnea, Cough, Dyspnea on exertion Gastrointestinal: Denies: Abdominal pain, Nausea, Vomiting, Diarrhea, Melena, Hematochezia Genitourinary: Denies: Dysuria, Hematuria, Frequency Musculoskeletal: Denies: Back pain, Extremity Pain Skin: Denies: Rash, Wounds Neurological: Reports: Parasthesia. Denies: Headache, Weakness, Numbness Physical Exam Vital Signs/Narrative: Vital Signs Temp Pulse Resp BP Pulse Ox 06/17/19 03:40 18 133/85 H 95 06/17/19 01:37 98.4 F 85 17 155/88 H 96 General: Well nourished, Well developed, No Acute Distress Head: Normocephalic, Atraumatic Eyes: Perrl, EOMI ENT: Moist mucous membranes, No rhinorrhea Neck: Supple, Nontender Cardiovascular: Regular rate, Regular rhythm, No murmurs Respiratory: No distress, CTA bilaterally, Chest nontender Abdomen: Soft, Nontender, Nondistended, Normal bowel sounds Back: Nontender, Normal Inspection Extremities: Nontender, No edema Skin: Normal color, No rash Neurological: Alert, Oriented x3, Cranial nerves II-XII grossly intact, Normal Strength, Normal Sensation Psychological: Normal affect, Normal Mood Diagnostic/Tx/Re-eval Laboratory Results 06/17/19 06/17/19 06/17/19 01:42 01:55 01:55 WBC 6.0 RBC 4.84 Hgb 14.0 Hct 39.8 L MCV 82.2 MCH 28.9 MCHC 35.2 RDW Std Deviation 35.5 RDW Coeff of Eben 11.9 Plt Count 187 MPV 10.7 Immature Gran % (Auto) 0.200 Neut % (Auto) 56.6 Lymph % (Auto) 29.8 Charles % (Auto) 11.4 H Eos % (Auto) 1.3 Baso % (Auto) 0.7 Absolute Neuts (auto) 3.4 Absolute Lymphs (auto) 1.78 Nucleated RBC % 0 Sodium 128 L Potassium 4.2 Chloride 92 L Carbon Dioxide 27.0 Anion Gap 9 BUN 11 Creatinine 1.54 H Estim Creat Clear Calc 44.31 Est GFR (MDRD) Af Amer 59 L Est GFR (MDRD) Non-Af 49 L BUN/Creatinine Ratio 7.1 L Glucose 778 H* Calcium 9.0 POC Glucose > 500 H* 06/17/19 04:00 WBC RBC Hgb Hct MCV MCH MCHC RDW Std Deviation RDW Coeff of Eben Plt Count MPV Immature Gran % (Auto) Neut % (Auto) Lymph % (Auto) Charles % (Auto) Eos % (Auto) Baso % (Auto) Absolute Neuts (auto) Absolute Lymphs (auto) Nucleated RBC % Sodium Potassium Chloride Carbon Dioxide Anion Gap BUN Creatinine Estim Creat Clear Calc Est GFR (MDRD) Af Amer Est GFR (MDRD) Non-Af BUN/Creatinine Ratio Glucose Calcium POC Glucose 379 H - Medical Decision Making Patient given IV fluids and insulin. Initial sodium was 128 secondary to pseudo-hyponatremia from hyperglycemia. Initial blood sugar 778. No evidence of diabetic ketoacidosis on lab work otherwise. Bicarb normal. Chloride mildly low. Creatinine 1.5. Patient felt much better after treatment is remains at baseline. Initial blood sugar was high. There is no evidence of altered mental status to suggest hyperosmotic state. Patient's blood sugar after treatment is 379. He is comfortable continuing his insulin therapy and monitoring his sugars at home. He will be discharged ED Disposition - Plan for ED Patient: Disposition: Home or Assisted Living Diagnosis: Diabetic neuropathy, Diabetes mellitus with hyperglycemia Instructions: ED Diabetic Hyperglycemia Referrals: [facility],[place] [Primary Care Provider] -
[2019-06-17 04:31] VITALS: BP 139/84; PULSE 79; RESP 16; O2SAT 95
== END 2019-06-17 04:32 | disposition home or self-care (01) ==
PROVIDERS: Emergency Provider Emergency Medicine
DX: E11.40 Type 2 diabetes mellitus with diabetic neuropathy, unspecified (principal); E11.65 Type 2 diabetes mellitus with hyperglycemia; I10 Essential (primary) hypertension; Z79.4 Long term (current) use of insulin; Z82.49 Family history of ischemic heart disease and other diseases of the circulatory system; Z87.891 Personal history of nicotine dependence
CPT/HCPCS: 80048; 82962; 85025; 96360; 96361; 99285; J7030; A4216

== ENCOUNTER 2019-08-17 01:58 | Inpatient (IN) | payer MEDICARE, OTHER, SELFPAY ==
[2019-08-17] VITALS (17 sets, daily range): BP systolic 126–174; BP diastolic 82–113; PULSE 79–113; RESP 16–20; TEMP 36.6–36.9; O2SAT 90–97; BMI 28.7; BMI 28.4
--- NOTE | 2019-08-17 02:33 | EKG12_ITS ---
Test Reason : DYSRHYTHMIA Blood Pressure : / mmHG Vent. Rate : 108 BPM Atrial Rate : 108 BPM P-R Int : 160 ms QRS Dur : 100 ms QT Int : 370 ms P-R-T Axes : 032 156 081 degrees QTc Int : 495 ms Sinus tachycardia Left posterior fascicular block Poor R- wave Progression Abnormal ECG Confirmed by REX FERREIRA, URSZULA ([id number]), editor greeting card CHINO MOHAN ([id number]) on 08/18/2019 1:39:36 PM Referred By: Confirmed By:URSZULA GOODMAN MD
[2019-08-17 02:53] LABS: Absolute Lymphocyte Count 1.59 X10^3/uL (0.83-4.51); Absolute Neutrophil Count 4.8 X10^3/uL (2.0-7.7); Basophil# 0.03 X10^3/uL; Basophil% 0.4 % (0-1); Eosinophil# 0.06 X10^3/uL; Eosinophils% 0.8 % (0-5); Hematocrit 44.1 % (40-54); Hemoglobin 15.9 g/dL (13.0-16.5); Lymphocyte # 1.59 X10^3/ul (4.0); Lymphocyte % 22.2 % (19-41); Mean Corp Hgb Conc 36.1 g/dL (32-36); Mean Corpuscular Hgb 30.2 pg (27.0-32.0); Mean Corpuscular Volume 83.8 fL (80-94); Monocyte# 0.67 X10^3/uL; Monocyte% 9.3 % (0-10); NRBC Flagged by Analyzer 0 % (0-5); Platelet Count 205 K/mm3 (150-450); RBC Distribution Width CV 11.7 % (11.6-14.6); RBC Distribution Width SD 35.3 fl (35.1-43.9); Red Blood Count 5.26 M/mm3 (4.6-6.2); White Blood Count 7.2 K/mm3 (4.4-11.0)
--- NOTE | 2019-08-17 02:55 | CT_ITS ---
HISTORY: N/V, VOMITED BLOOD CLOTS, DARKER STOOL, NG TUBE PLACED EXAMINATION: CT Abdomen And Pelvis W/ Contrast Injection TECHNIQUE: Helically acquired images were obtained of the abdomen and pelvis following IV contrast. A radiation dose optimization technique was used for this scan. IV Contrast dosage and agent: IV 100mL [id number] Oral contrast: None. COMPARISON: None FINDINGS: LOWER CHEST: NG tube in place with the tube tip within the body of the stomach. Mild circumferential mural thickening of the lower esophagus compatible with esophagitis. No pleural effusion or pericardial effusion. Age-indeterminate minimally displaced fractures of the anterior right fifth and sixth ribs. Cholecystectomy with surgical clips within the gallbladder fossa. No biliary dilatation. Fatty liver which is normal in size. Hepatic contour appears smooth and no overt CT findings of cirrhosis. The portal vein is patent and not enlarged. Normal spleen and pancreas. Both kidneys are normal in position. Bilateral renal opacification without evidence of hydronephrosis, pyelonephritis, or suspicious renal lesion. The adrenal glands are not enlarged. Abdominal aorta is atherosclerotic and normal in caliber. No ascites or retroperitoneal lymph node enlargement. Patent IVC. GI tract: No obstruction. Normal appendix. Moderate colonic stool. No colitis identified. Pelvis: The prostate gland is upper normal in size. Urinary bladder volume is upper normal. No free fluid or lymph node enlargement. Small fat-containing left inguinal hernia. Bones: No acute osseous abnormality. L4 remote compression fracture with kyphoplasty at this level and stable cement extravasation to the left of the L4 vertebral body at the left psoas region. Remote compression deformity with Schmorl's node of the L1 superior endplate. Ventral abdominal Wall: Tiny fat-containing umbilical hernia. CT/Abdomen/Pelvis W IV Cont ONLY IMPRESSION: 1. Good position of the NG tube. The lower esophagus shows mild circumferential mural thickening in keeping with esophagitis. 2. Fatty liver and otherwise no overt CT findings of cirrhosis or portal hypertension. No splenomegaly or ascites. 3. Age-indeterminate minimally displaced fractures of the anterior right fifth and sixth ribs. 4. Small fat-containing left inguinal hernia. Additional nonacute findings, as above. Individualized dose optimization techniques were used for this CT. at 0459 Reported and signed by: Peewee العراقي MD Electronically Signed: Peewee العراقي, at 4:58 EST Tel , Service support ,
[2019-08-17] MEDS: 0.9% Normal Saline 1,000 ML 1000 ML IV (02:59)
[2019-08-17] MEDS: Morphine 4 MG/ML Syringe IV (02:59)
[2019-08-17] MEDS: Ondansetron 4 MG/2 ML Vial IV (02:59)
[2019-08-17 03:02] LABS: International Normalized Ratio 1.1; Prothrombin Time (Protime)PT. 13.8 SECONDS (11.7-14.9)
[2019-08-17 03:03] LABS: Partial Thromboplast Time 23.2 Seconds (24.1-36.2)
[2019-08-17] MEDS: Lidocaine 4% 5 ML Ampul 2 ML INHALATION (03:08)
--- NOTE | 2019-08-17 03:13 | CPS ---
Lidocaine administered for NG tube placement
--- NOTE | 2019-08-17 03:30 | ED.VISSUMM ---
- ER Visit Summary Date of Service: 08/17/19 Chief Complaint: Vomiting History of Present Illness: The patient is a 64 M presenting with vomiting. Patient states this started on Friday. He has had several episodes of vomiting over the past 2 days. He states he had one episode where he vomited with blood clots. He believes his stool looks darker than usual. He denies diarrhea. Denies abdominal pain. Denies lightheadedness or syncope. He states he has acid reflux symptoms for the past 2 days prior to this starting. Denies fever. Denies other complaints. Physical Examination: Vitals are stable. Patient is afebrile. Alert no acute distress. HEENT exam is unremarkable. Neck is supple. Lungs are clear and equal bilaterally. Heart is regular rate and rhythm. Abdomen is soft nontender nondistended. No guarding or rebound Extremities are unremarkable. Skin is warm and dry. No focal neurologic deficit. Remainder of exam is unremarkable. Emergency Department Course and Treatment: EKG is sinus tachycardia rate of 108. Patient was given morphine, Zofran, IV fluids, lidocaine aerosol. NG tube was placed and coffee ground emesis returned. CBC, chemistries unremarkable other than sodium 131, glucose 482, creatinine 1.33. Lipase 440. INR 1.1. Troponin negative. CT abdomen pelvis shows good position of the NG tube. The lower esophagus shows mild circumferential mural thickening in keeping with esophagitis. Fatty liver and otherwise no overt CT findings of cirrhosis or portal hypertension. No splenomegaly or ascites. Age-indeterminate minimally displaced fractures of the anterior right fifth and sixth ribs. Small fat-containing left inguinal hernia. Discussed with Dr. Gutierrez. Patient was started on Protonix IV. Discussed with the hospitalist for admission. Disposition: Admission Impression: Upper GI Bleed This note was generated with Doorman dictation software. It may contain incorrect words, spelling, and punctuation that were not noted in review of the chart prior to signing ED Disposition - Plan for ED Patient: [facility] Provider] -
[2019-08-17 03:59] LABS: AST(SGOT) 18 U/L (15-37); Alanine Aminotransfer ALT/SGPT 29 U/L (16-61); Albumin, Serum 3.9 g/dL (3.2-5.0); Alkaline Phosphatase 100 U/L (45-117); Anion Gap 10 (5-15); BUN 17 mg/dL (7-18); BUN/Creat Ratio 12.8 RATIO (10-20); Calcium,Total 9.6 mg/dL (8.5-10.1); Chloride 90 mmol/L (98-107); Creatinine, Serum 1.33 mg/dL (0.70-1.30); EST Glomerular Filtration Rate 58 mL/min (>60); Est Glom Filt Rate - Afr Amer 70 mL/min (>60); Globulin 4.1 g/dL (2.2-4.2); Glucose 482 mg/dL (74-106); Lipase 440 U/L (73-393); Potassium 3.5 mmol/L (3.5-5.1); Sodium Level 131 mmol/L (136-145)
--- NOTE | 2019-08-17 03:59 | ED.RN ---
dr flanagan notified of glucose 482
--- NOTE | 2019-08-17 04:28 | EKG12_ITS ---
Test Reason : DYSRHYTHMIA Blood Pressure : / mmHG Vent. Rate : 114 BPM Atrial Rate : 114 BPM P-R Int : 156 ms QRS Dur : 102 ms QT Int : 356 ms P-R-T Axes : 022 189 044 degrees QTc Int : 490 ms Sinus tachycardia Right superior axis deviation Inferior infarct , age undetermined Cannot rule out Anterior infarct , age undetermined Nonspecific T- wave abnormality Abnormal ECG Confirmed by REX FERREIRA, URSZULA ([id number]), index editor CHINO MOHAN ([id number]) on 08/18/2019 1:40:05 PM Referred By: Confirmed By:URSZULA GOODMAN MD
--- NOTE | 2019-08-17 05:34 | HP.PCM_ITS ---
Problem List (1) Acute gastroenteritis Status: Acute (2) Essential (primary) hypertension Status: Chronic (3) DM2 (diabetes mellitus, type 2) Status: Chronic History of Present Illness Date of Admission: 08/17/19 Chief Complaint: nausea and vomiting The patient is a 64 year old M with a significant history of hypertension and diabetes mellitus who presents emergency department with nausea and vomiting. His symptoms started about 3 days ago after eating a sandwich from [facility]. Originally he attributed his symptoms from probable the dressing on the sandwich. His nausea and vomiting persisted. Patient reported that even with a popsicle he continued to throw up. Further he reports heartburn going up his throat. Further he reports hematemesis and dark stools. He denies any abdominal pain. At the emergency department his stool was found to be brown. Occult stools was negative. Emergency Department discussed the case with general surgery Dr. Gutierrez who will follow when consulted. Past Medical History Past Medical History (Chronic Problems): Chronic Problems Essential (primary) hypertension (Chronic) DM2 (diabetes mellitus, type 2) (Chronic) Allergies No Known Allergies Allergy (Verified 06/17/19 01:36) Home Medications: Ambulatory Orders Medication Instructions Recorded Amlodipine [Norvasc] 10 mg PO DAILY 10/05/16 Insulin Aspart [Novolog Flexpen] See Protocol SC 4X/DAY 10/05/16 Lisinopril [Prinivil] 20 mg PO DAILY 10/05/16 Metoprolol Tartrate [Lopressor 150 mg PO BID 10/05/16 (beta jay)] Nortriptyline HCl 20 mg PO DAILY 10/05/16 metFORMIN HCl [Glucophage] 100 mg PO DAILY 10/05/16 Calcium Carbonate [Calcium] 500 mg PO DAILY 08/17/17 Cholecalciferol (VIT D3) [Vitamin 1,000 unit PO DAILY 08/17/17 D3] Insulin Glargine,Hum.rec.anlog 100 unit SQ BID 08/17/17 [Lantus] Liraglutide [Victoza] 1.8 mg SQ DAILY 08/17/17 [place]-3 Fatty Acids/Fish Oil [Fish 1,000 mg PO BID 08/17/17 Oil 1,000 mg Capsule] Pregabalin [Lyrica] 25 mg PO BID 08/17/17 Tamsulosin HCl [Flomax] 0.4 mg PO DAILY 08/17/17 Buspirone HCl 10 mg PO DAILY 06/17/19 Modafinil 200 mg PO DAILY 06/17/19 Sertraline HCl [Zoloft] 150 mg PO DAILY 06/17/19 Surgical History: cholecystectomy, herniorrhaphy, - - Back surgery x3 with the last surgery being a repair for spinal stenosis. Smoking Status: Former smoker Alcohol: None - *Family History Paternal History Items: Diabetes, Heart Disease Sibling History Items: Heart Disease, Stroke Review of Systems Constitutional: Denies: Chills, Fever, Weight Change HEENT: Denies: Head Aches, Sinus Congestion, Sinus Drainage Cardiovascular: Denies: Chest Pain, Palpitations Respiratory: Denies: Cough, Shortness of breath at rest, Sputum production Gastrointestinal: Reports: Dyspepsia, Nausea, Vomiting. Denies: Abdominal Pain Genitourinary: Denies: Dysuria Musculoskeletal: Denies: Joint Pain, Joint Tenderness Skin: Denies: Rash, Wounds Neurological: Denies: Numbness, Tingling, Focal weakness Psychiatric: Denies: Anxiety, Depression, Homicidal Ideations, Suicidal Ideations Hematologic/ Lymphatic: Denies: Easy Bruising, Easy Bleeding VTE Information - Inpt Only VTE Present on Admission: No VTE Mechan Device Prophylaxis: SCD's VTE Pharm Prophylaxis ordered?: No Patient Problems: Active and Suspected Problems Acute gastroenteritis (Acute) - Physical Exam Vitals/I&O's: Vital Signs Temp Pulse Resp BP Pulse Ox 98.2 F 85 16 168/98 H 97 08/17/19 01:59 08/17/19 04:00 08/17/19 04:00 08/17/19 04:00 08/17/19 04:00 Oxygen Delivery Method Room Air Weight: 80.739 kg Body Mass Index (BMI) 28.7 Finger Stick Blood Glucose 379 General: Alert, Oriented x3, Cooperative HEENT: Atraumatic, PERRLA, EOMI, Normocephalic Neck: Supple, No JVD, Negative Carotid Bruits Lungs: Clear to auscultation, Normal air movement Cardiovascular: Regular rate, Normal S1, Normal S2, No murmurs Abdomen: Bowel Sounds Present, Soft, Non Tender, - - Emergency department that there was no masses or hemorrhoids with rectal exams. Extremities: No edema, Capillary Refill Less than 3 Seconds Skin: No rashes, No breakdown Musculoskeletal: No Tenderness to Palpation of Joints or Extremities Neurological: Cranial nerves II-XII grossly intact, Neuro grossly intact Psych/Mental Status: Normal Affect, Appropriate Microbiology Past 72 Hours 08/17/19 03:30 Stool Stool Occult Blood (ANJELICA) - Final Laboratory Results 08/17/19 02:45: WBC 7.2, RBC 5.26, Hgb 15.9, Hct 44.1, MCV 83.8, MCH 30.2, MCHC 36.1 H, RDW Std Deviation 35.3, RDW Coeff of Eben 11.7, Plt Count 205, MPV 10.0, Immature Gran % (Auto) 0.300, Neut % (Auto) 67.0, Lymph % (Auto) 22.2, [place] % (Auto) 9.3, Eos % (Auto) 0.8, Baso % (Auto) 0.4, Absolute Neuts (auto) 4.8, Absolute Lymphs (auto) 1.59, Nucleated RBC % 0 08/17/19 02:45: PT 13.8, INR 1.1, APTT 23.2 L 08/17/19 02:45: Sodium 131 L, Potassium 3.5, Chloride 90 L, Carbon Dioxide 31.0, Anion Gap 10, BUN 17, Creatinine 1.33 H, Estim Creat Clear Calc 51.30, Est GFR (MDRD) Af Amer 70, Est GFR (MDRD) Non-Af 58 L, BUN/Creatinine Ratio 12.8, Glucose 482 H*, Calcium 9.6, Total Bilirubin 0.80, AST 18, ALT 29, Alkaline Phosphatase 100, Troponin I < 0.015, Total Protein 8.0, Albumin 3.9, Globulin 4.1, Albumin/Globulin Ratio 1.0, Lipase 440 H Assessment/Plan All Active Problems Acute gastroenteritis (Acute) The patient is a 64 year old M with a significant history of hypertension and diabetes mellitus who presents emergency department with nausea and vomiting; and also reports of hematemesis and dark stool consistent with acute gastroenteritis with probable GI bleed. Gastroenteritis Likely viral Supportive treatment with normal saline with potassium supplementation. Check magnesium. Compazine for nausea vomiting. Of note patient has elevation QTC. Placed on NG tube with suction at emergency department; continue. Acute GI bleed Reports of hematemesis and dark stools. However occult blood was negative at emergency department. Of note hemoglobin is 15.9. We will trend hemoglobin. Received Protonix at the emergency department. Protonix IV continued. No chemical thromboprophylaxis. General surgery consult. Diabetes mellitus On presentation blood glucose was severely elevated. However patient reports that in the past couple days has not been taking his insulin because he has not been eating. Will de-escalate basal insulin. Hold metformin. Hold Victoza. Put on Accu-Chek every 4 hours with correction scale insulin. QTC prolongation His QTC on presentation was 495. Avoid QT C prolongation drugs. Depression/anxiety/Narcolepsy In the setting of n.p.o. hold buspirone,modafinil, nortriptyline, and Zoloft, Chronic back pain Home Lyrica hold for now. Hypertension Presentation blood pressure was not within goal. In the setting of patient being n.p.o. with NG tube hold home metoprolol and lisinopril. Hold amlodipine. Put on scheduled Vasotec and PRN labetalol. Trend blood pressure and adjust blood pressure medications. DVT prophylaxis SCD Code Visit Inpatient E&M: 08787 Init Hosp L3
[2019-08-17 06:26] LABS: Bedside Glucose 349 mg/dL (70-110)
[2019-08-17] MEDS: Enalaprilat 1.25 MG/ML Vial IV (06:51)
[2019-08-17] MEDS: Potassium Chloride 40 MEQ in 0.9% Normal Saline 1,000 ML 100 MEQ IV (06:52)
[2019-08-17] MEDS: Insulin Lispro 100 UNIT/ML INSULN.PEN SC ×2 (06:54→11:36)
[2019-08-17 07:16] LABS: Hematocrit 41.5 % (40-54); Hemoglobin 14.6 g/dL (13.0-16.5)
[2019-08-17 07:37] LABS: Magnesium 1.8 mg/dL (1.6-2.6)
--- NOTE | 2019-08-17 08:29 | CON.PCM_ITS ---
Reason for Consult Date of Consultation: 08/17/19 History of Present Illness: The patient is a 64 year old M presented to the ER due to nausea and vomiting and coffee-ground emesis. Patient states that he had been having nausea and vomiting since Friday night as well as having some diarrhea. However more re cently patient describes some coffee-ground emesis with his vomiting. Patient states he did have symptoms of reflux over the last 3 days however does not normally have issues with reflux maybe once a month. Patient has had a previous EGD when he was 51, patient states that was just something that was done at the [facility] denied any abdominal pain at that time. Patient also had a colonoscopy at that time as well as another one more recently-both were done at the [facility]. Patient currently has an NG in place denies any nausea or vomiting minimal output out of the NG, denies any abdominal pain, passing small amount of flatus. Past Medical History Past Medical History (Chronic Problems): Chronic Problems Essential (primary) hypertension (Chronic) DM2 (diabetes mellitus, type 2) (Chronic) Allergies No Known Allergies Allergy (Verified 06/17/19 01:36) Home Medications: Ambulatory Orders Medication Instructions Recorded Amlodipine [Norvasc] 10 mg PO DAILY 10/05/16 Insulin Aspart [Novolog Flexpen] 45 units SC TID 10/05/16 Lisinopril [Prinivil] 20 mg PO DAILY 10/05/16 Metoprolol Tartrate [Lopressor 150 mg PO BID 10/05/16 (beta jay)] Nortriptyline HCl 20 mg PO DAILY 10/05/16 metFORMIN HCl [Glucophage] 1,000 mg PO DAILY 10/05/16 Calcium Carbonate [Calcium] 500 mg PO BID 08/17/17 Cholecalciferol (VIT D3) [Vitamin 1,000 unit PO DAILY 08/17/17 D3] Insulin Glargine,Hum.rec.anlog 100 unit SQ BID 08/17/17 [Lantus] Liraglutide [Victoza] 1.8 mg SQ DAILY 08/17/17 [place]-3 Fatty Acids/Fish Oil [Fish 1,000 mg PO BID 08/17/17 Oil 1,000 mg Capsule] Pregabalin [Lyrica] 100 mg PO BID 08/17/17 Tamsulosin HCl [Flomax] 0.4 mg PO DAILY 08/17/17 Buspirone HCl 10 mg PO QHS 06/17/19 Modafinil 200 mg PO DAILY 06/17/19 Sertraline HCl [Zoloft] 150 mg PO DAILY 06/17/19 Aspirin [Aspirin, Baby] 81 mg PO DAILY@0800 08/17/19 Atorvastatin Calcium [Lipitor] 40 mg PO QHS 08/17/19 Pantoprazole Sodium [Protonix] 40 mg PO BID 14 Days #28 tab 08/18/19 Surgical History: cholecystectomy, herniorrhaphy, - - Back surgery x3 with the last surgery being a repair for spinal stenosis. Smoking Status: Former smoker Tobacco Use: Cigarettes Alcohol: None - *Family History Paternal History Items: Diabetes, Heart Disease Sibling History Items: Heart Disease, Stroke Review of Systems Constitutional: Denies: Fever Eyes: Denies: Blurred vision HEENT: Denies: Difficulty Swallowing Cardiovascular: Denies: Chest Pain Respiratory: Denies: Shortness of breath at rest Gastrointestinal: Denies: Abdominal Pain, Nausea, Vomiting Genitourinary: Denies: Dysuria Musculoskeletal: Denies: Joint Tenderness Skin: Denies: Rash Neurological: Denies: Balance problems Psychiatric: Denies: Depression Hematologic/ Lymphatic: Denies: Easy Bleeding - Physical Exam Vitals/I&O's: Vital Signs Temp Pulse Resp BP Pulse Ox 98.3 F 113 H 20 H 154/90 H 92 08/17/19 07:31 08/17/19 07:31 08/17/19 07:31 08/17/19 07:31 08/17/19 07:31 Oxygen Delivery Method Room Air Weight: 176 lb 2.389 oz Body Mass Index (BMI) 28.4 Finger Stick Blood Glucose 379 Intake and Output for Last 24 Hours 08/15/19 08/16/19 08/17/19 23:59 23:59 23:59 Intake Total 1035 / 1035 Balance 1035 / 1035 General: Alert, Oriented x3, Cooperative, No apparent distress HEENT: - - NG in place Lungs: Normal air movement Cardiovascular: Regular rate Abdomen: Soft, Non Tender, Non-Distended Extremities: No clubbing, No cyanosis, No edema Neurological: Cranial nerves II-XII grossly intact Psych/Mental Status: Normal Affect Microbiology Past 72 Hours 08/17/19 03:30 Stool Stool Occult Blood (ANJELICA) - Final Laboratory Results 08/17/19 02:45: WBC 7.2, RBC 5.26, Hgb 15.9, Hct 44.1, MCV 83.8, MCH 30.2, MCHC 36.1 H, RDW Std Deviation 35.3, RDW Coeff of Eben 11.7, Plt Count 205, MPV 10.0, Immature Gran % (Auto) 0.300, Neut % (Auto) 67.0, Lymph % (Auto) 22.2, [place] % (Auto) 9.3, Eos % (Auto) 0.8, Baso % (Auto) 0.4, Absolute Neuts (auto) 4.8, Absolute Lymphs (auto) 1.59, Nucleated RBC % 0 08/17/19 02:45: PT 13.8, INR 1.1, APTT 23.2 L 08/17/19 02:45: Sodium 131 L, Potassium 3.5, Chloride 90 L, Carbon Dioxide 31.0, Anion Gap 10, BUN 17, Creatinine 1.33 H, Estim Creat Clear Calc 51.30, Est GFR (MDRD) Af Amer 70, Est GFR (MDRD) Non-Af 58 L, BUN/Creatinine Ratio 12.8, Glucose 482 H*, Calcium 9.6, Total Bilirubin 0.80, AST 18, ALT 29, Alkaline Phosphatase 100, Troponin I < 0.015, Total Protein 8.0, Albumin 3.9, Globulin 4.1, Albumin/Globulin Ratio 1.0, Lipase 440 H 08/17/19 06:22: POC Glucose 349 H 08/17/19 07:06: Magnesium 1.8 08/17/19 07:06: Hgb 14.6, Hct 41.5 Current Medications Enalaprilat (Vasotec) 1.25 mg IV Q6 [facility] Last Admin: 08/17/19 06:51 Dose: 1.25 mg Documented by: Glucagon () 1 mg IM .X1 PRN PRN Reason: Hypoglycemia Potassium Chloride 40 meq/ (Sodium Chloride) 1,020 mls @ 130 mls/hr IV .Q7H51M [facility] Last Admin: 08/17/19 06:52 Dose: 100 mls/hr Documented by: Pantoprazole Sodium 40 mg/ (Sodium Chloride) 110 mls @ 330 mls/hr IV Q12 [facility] Dextrose (Dextrose 10%-Water) 250 mls @ 999 mls/hr IV .Q16M PRN; Protocol PRN Reason: HYPOGLYCEMIA Sodium Chloride () 1,000 mls @ 999 mls/hr IV .Q1H1M ONE Stop: 08/17/19 09:25 Insulin Glargine (Lantus (Bkc)) 50 units SC BID DIMPLE Insulin Human Lispro (Humalog Kwikpen (Bkc)) 0 unit SC Q4 DIMPLE; Protocol Last Admin: 08/17/19 06:54 Dose: 5 u Documented by: Labetalol HCl (Trandate) 10 mg IV Q4H PRN PRN PRN Reason: sbp > 160 Prochlorperazine Edisylate (Compazine Iv) 5 mg IV Q4H PRN PRN PRN Reason: Breakthrough nausea/vomiting Sodium Chloride () 10 - 40 ml IV UD PRN PRN Reason: SALINE FLUSH Assessment/Plan All Active Problems Acute gastroenteritis (Acute) 64-year-old male with nausea and vomiting x 3 days, coffee-ground emesis 1. We will clamp NG and have minimal output in 4 hours will remove and okay to start clears as long as patient's not having any nausea. 2. Continue IV Protonix, gave liter bolus & increased IVF to 130 3. Discussed with patient procedure of an esophagogastroduodenoscopy plan to schedule for tomorrow patient was agreeable with plan. I have discussed the above with the patient. I have offered the patient EGD for evaluation. I have explained the risks/benefits of the procedure and described the procedure. I have discussed the risks with the patient, including but not limited to: infection, bleeding, perforation of the GI tract requiring emergency surgery, inability to complete the procedure, injury to any internal organs, complications of anesthesia, etc. - the patient understands and agrees to proceed. I have answered all the patient's questions to the patient's satisfaction and the patient has no further questions. Vandana Gutierrez M.D. Pager: [phone] [facility] [address] [place] [address], [facility], [address] [place] [address] Office: [phone] Inpatient E&M: 29412 Init Hosp L2
[2019-08-17] MEDS: 0.9% Normal Saline 1,000 ML 999 ML IV (08:33)
--- NOTE | 2019-08-17 11:38 | CASEMGMT ---
RN CM Assessment Introduced role of RN CM to patient.? Patient is alert, oriented and able?to participate in RN CM Assessment. ?Care providers, pharmacy, and demographics verified. Presentation: N/V, Hematemesis and dark stools Admit Dx: Acute gastroenteritis & GIB Re-Admit: No Barriers/Issues: None. Patient is a and service connected. Discussed with patient wish to be transferred to [facility] hospital. Patient at this time is agreeable to transfer in order for [place] to cover this hospital Bill. No declination form signed at this time. Primary CM Kinsey Chao made aware. PCP: [facility] [place]- cannot recall PCP name, states that it switches often Specialists: Neuro- [facility] Philip, Endo- [facility] Jose Preferred Pharmacy: [facility]. States if able to give a written script- can fill with the [facility] and they fill immediate need medications. Insurance: [facility], [facility] A Rx Benefit:?Yes with the [place] ?LNOK: Viji Rodrigues LW/HPOA: States has both but needs to complete another HPOA as current is his friend Brian Toth but lives far and wants to change HPOA. Offered completion this admission with dept but patient declining as he states his needs to be here. Information with rack card provided and made aware if changes his mind to complete this admission to notify staff and also can return as an outpatient to complete. Living Arrangements:? Lives with his and adult step son in a [facility], no steps to enter ADL?s: Independent with ambulation, uses a 3 point cane or 4ww sometimes. Independent with ADLs. Transportation: or step son, [facility] DME: [facility], Glucometer, 4ww, 3-point cane, BP cuff, Shower chair- currently not using. HHC: None, states had a machine in the past that was hooked up to the phone that checked his blood sugar and VS. SNF: None Goal: Home and does not think will have any needs. Denies any issues, concerns, needs, or questions with DC planning at this time. Aware CM remains available should any emerging needs arise. DC PLAN: Home with no anticipated needs identified at this time. ZACH Rodriguez
[2019-08-17] MEDS: Metoprolol Tartrate 50 MG Tablet 150 MG PO ×2 (11:39→21:37)
--- NOTE | 2019-08-17 13:32 | NURSING ---
Student documentation reviewed.
[2019-08-17 14:20] LABS: Hematocrit 41.3 % (40-54); Hemoglobin 14.4 g/dL (13.0-16.5)
[2019-08-17] MEDS: Insulin Lispro 100 UNIT/ML INSULN.PEN 45 UNIT SC (14:20)
[2019-08-17 14:25] LABS: Bedside Glucose 321 mg/dL (70-110)
--- NOTE | 2019-08-17 15:55 | PCM.PN.BLA ---
Progress Note Patient was seen and examined. His NG tube has been clamped. His routine medications have been reordered. No melena or hematochezia seen. Denied any abdominal pain. Vitals are stable. Will continue per surgery meds STROKE Vital Signs/Narrative: Vital Signs Temp Pulse Resp BP Pulse Ox 08/17/19 12:10 98.5 F 101 H 20 H 158/92 H 90
--- NOTE | 2019-08-17 16:45 | NURSING ---
Patient found to be diaphoretic and stated that he felt really tired. This RN obtained an accucheck that read 46 mg/dl. Patients meal tray arrived in the meantime. Patient drank aglass of orange juice and started eating his meal. Patient educated on S&S of hypoglycemia and instructed to call out if he feels his glucose is dropping. Will continue to monitor and reassess
[2019-08-17 16:55] LABS: Bedside Glucose 46 mg/dL (70-110)
[2019-08-17] MEDS: Potassium Chloride 40 MEQ in 0.9% Normal Saline 1,000 ML 130 MEQ IV (17:15)
[2019-08-17] MEDS: Tamsulosin HCl 0.4 MG Capsule PO (17:18)
[2019-08-17 17:21] LABS: Bedside Glucose 134 mg/dL (70-110)
[2019-08-17] MEDS: Atorvastatin Calcium 10 MG Tablet PO (21:37)
[2019-08-17] MEDS: Pregabalin 25 MG Capsule PO (21:45)
[2019-08-17] MEDS: busPIRone 5 MG Tablet 10 MG PO (21:46)
[2019-08-17 22:26] LABS: Bedside Glucose 102 mg/dL (70-110)
[2019-08-17 22:34] LABS: Hematocrit 40.1 % (40-54)
[2019-08-18] VITALS (17 sets, daily range): BP systolic 88–143; BP diastolic 60–92; PULSE 75–80; RESP 16–20; TEMP 36.5–37.4; O2SAT 94–98; BMI 28.4
[2019-08-18] MEDS: Potassium Chloride 40 MEQ in 0.9% Normal Saline 1,000 ML 130 MEQ IV (03:19)
[2019-08-18 06:55] LABS: Anion Gap 5 (5-15); BUN 14 mg/dL (7-18); BUN/Creat Ratio 15.5 RATIO (10-20); Calcium,Total 7.9 mg/dL (8.5-10.1); Chloride 107 mmol/L (98-107); EST Glomerular Filtration Rate 90 mL/min (>60); Est Glom Filt Rate - Afr Amer 109 mL/min (>60); Estimated Creatinine Clearance 75.81 ml/min; Glucose 91 mg/dL (74-106); Potassium 3.8 mmol/L (3.5-5.1); Sodium Level 140 mmol/L (136-145)
[2019-08-18 07:51] LABS: Bedside Glucose 125 mg/dL (70-110)
[2019-08-18] MEDS: Metoprolol Tartrate 50 MG Tablet 150 MG PO (07:57)
[2019-08-18] MEDS: amLODIPine 10 MG Tablet PO (07:58)
--- NOTE | 2019-08-18 08:38 | PCM.PN.SRG ---
Patient Problems: Active and Suspected Problems Acute gastroenteritis (Acute) Subjective: Patient tolerating clears, denies any abdominal pain, having flatus does state he may have some abdominal bloating - Physical Exam Vitals/I&O's: Vital Signs Temp Pulse Resp BP Pulse Ox 99.3 F H 78 17 143/92 H 94 08/18/19 08:00 08/18/19 08:00 08/18/19 08:00 08/18/19 08:00 08/18/19 08:00 Oxygen Delivery Method Room Air Weight: 176 lb 2.389 oz Body Mass Index (BMI) 28.4 Finger Stick Blood Glucose 379 Intake and Output for Last 24 Hours 08/16/19 08/17/19 08/18/19 23:59 23:59 23:59 Intake Total 3838.83 / 4128.83 980.17 / 980.17 Output Total 280 / 705 425 / 425 Balance 3558.83 / 3423.83 555.17 / 555.17 General: Alert, Oriented x3, Cooperative, No apparent distress HEENT: Atraumatic Lungs: Normal air movement Cardiovascular: Regular rate Abdomen: Soft, Non Tender, Non-Distended Neurological: Cranial nerves II-XII grossly intact Psych/Mental Status: Normal Affect Microbiology Past 72 Hours 08/17/19 03:30 Stool Stool Occult Blood (ANJELICA) - Final Laboratory Results 08/17/19 11:34: POC Glucose 321 H 08/17/19 14:13: Hgb 14.4, Hct 41.3 08/17/19 16:42: POC Glucose 46 L 08/17/19 17:12: POC Glucose 134 H 08/17/19 21:59: POC Glucose 102 08/17/19 22:25: Hgb 14.0, Hct 40.1 08/18/19 05:30: Sodium 140, Potassium 3.8, Chloride 107, Carbon Dioxide 28.0, Anion Gap 5, BUN 14, Creatinine 0.90, Estim Creat Clear Calc 75.81, Est GFR (MDRD) Af Amer 109, Est GFR (MDRD) Non-Af 90, BUN/Creatinine Ratio 15.5, Glucose 91, Calcium 7.9 L 08/18/19 05:30: Hemoglobin A1c 12.0 H 08/18/19 07:45: POC Glucose 125 H Current Medications Amlodipine Besylate (Norvasc) 10 mg PO DAILY [facility] Last Admin: 08/18/19 07:58 Dose: 10 mg Documented by: Atorvastatin Calcium (Lipitor) 10 mg PO QHS [facility] Last Admin: 08/17/19 21:37 Dose: 10 mg Documented by: Buspirone HCl (Buspar) 10 mg PO QHS [facility] Last Admin: 08/17/19 21:46 Dose: 10 mg Documented by: Calcium Carbonate (Os-Larry 500) [facility] Cholecalciferol (Vitamin D (25mcg)) 1,000 unit PO [facility] Glucagon () 1 mg IM .X1 PRN PRN Reason: Hypoglycemia Potassium Chloride 40 meq/ (Sodium Chloride) 1,020 mls @ 130 mls/hr IV .Q7H51M [facility] Last Admin: 08/18/19 03:19 Dose: 130 mls/hr Documented by: Pantoprazole Sodium 40 mg/ (Sodium Chloride) 110 mls @ 330 mls/hr IV Q12 [facility] Last Infusion: 08/17/19 21:55 Dose: Infused Documented by: Dextrose (Dextrose 10%-Water) 250 mls @ 999 mls/hr IV .Q16M PRN; Protocol PRN Reason: HYPOGLYCEMIA Insulin Glargine (Lantus (Bkc)) 50 units SC BID [facility] Last Admin: 08/17/19 22:01 Dose: 50 u Documented by: Insulin Human Lispro (Humalog Kwikpen (Bk)) 45 unit SC 0800,1200,1700 [facility] Last Admin: 08/18/19 07:53 Dose: Not Given Documented by: Insulin Human Lispro (Humalog Kwikpen (Bk)) 0 unit SC ACHS [facility]; Protocol Last Admin: 08/18/19 07:52 Dose: Not Given Documented by: Labetalol HCl (Trandate) 10 mg IV Q4H PRN PRN PRN Reason: sbp > 160 Metoprolol Tartrate (Lopressor (Beta Keisha)) 150 mg PO BID [facility] Last Admin: 08/18/19 07:57 Dose: 150 mg Documented by: Pregabalin (Lyrica) 25 mg PO BID [facility] Last Admin: 08/17/19 21:45 Dose: 25 mg Documented by: Prochlorperazine Edisylate (Compazine Iv) 5 mg IV Q4H PRN PRN PRN Reason: Breakthrough nausea/vomiting Sertraline HCl (Zoloft) 150 mg PO DAILY [facility] Sodium Chloride () 10 - 40 ml IV UD PRN PRN Reason: SALINE FLUSH Tamsulosin HCl (Flomax) 0.4 mg PO DAILY@1730 [facility] Last Admin: 08/17/19 17:18 Dose: 0.4 mg Documented by: Medical Necessity - Tobacco Use Smoking Status: Former smoker Tobacco Use: Cigarettes Assessment/Plan All Active Problems Acute gastroenteritis (Acute) 64-year-old male with nausea and vomiting x 3 days?resolved, coffee-ground emesis?resolved 1. EGD today about 11 AM, continue Protonix Vandana Gutierrez M.D. Pager: [phone] [facility] [address] [place] [address], Outpatient [place], [address] [place] [address] Office: [phone] Code Visit Inpatient E&M: 32542 Subs Hosp L1
[2019-08-18] MEDS: 0.9% Normal Saline 1,000 ML 100 ML IV (10:10)
--- NOTE | 2019-08-18 11:00 | IMM_PTH ---
PATIENT: OPAL CRUZ LOC: MS3 U#:[id number] AGE/SX: 64/M ROOM: OR311 RE08/17/[address]: Dr. Carolin Carter MD : 1955 BED: 1 DIS: 08/18/2019 SPEC #: [id number] RECD: 08/18/19 15:30 STATUS: ARAMIS REQ #: [id number] BETTY: 08/18/19 11:[address]: Vandana Gutierrez DEPT: IMMUNOHISTOCHEMISTRY RECD BY: Gertrude Valles ENTERED: 08/18/19 15:32 SP TYPE: IMMUNO OTHR DR: MD Dr. Rocael Henry MD [facility] Tissues: A - Stomach, NOS B - Gastric mucous membrane Procedures: H Pylori (initial) P53 (initial) PHYSICIAN & INSTITUTION [place] [address] SPECIMEN INFORMATION: Tissue Source: A - Antrum biopsy, B - GE junction Clinical Info: Allan lion Specimen Number: [id number] A & B CPT code: 50240 x2 METHODOLOGY: Deparaffinized sections of prefer/formalin-fixed tissue or PAP/DQ stained slides are incubated with monoclonal/polyclonal antibodies/oligonucleotide probes. Localization is made via biotin free immunoperoxidase method. Appropriate controls are performed and reacted as expected. Results on target cell population are indicated in the following table: RESULTS: ANTIBODY / CLONE RESULT Block A H Pylori (polyclonal) negative Block B P53 (DO-7) positive, weak, a few cells These tests were developed and their performance characteristics determined by [facility]. They may not have been cleared or approved by the U.S. Food and Drug Administration. The FDA has determined that such clearance or approval is not necessary. The above immunohistochemical/dualISH markers are ordered and reviewed by the pathologist. INTERPRETATION: A. Antrum biopsy: Negative for Helicobacter pylori organisms. B. GE junction, biopsy: Indefinite for low grade dysplasia. SJ:ester 08/19/19
--- NOTE | 2019-08-18 11:00 | GASB_PTH ---
PATIENT: OPAL CRUZ LOC: MS3 U#:[id number] AGE/SX: 64/M ROOM: AK311 RE08/17/[address]: Dr. Carolin Carter MD : 1955 BED: 1 DIS: 08/18/2019 SPEC #: [id number] RECD: 08/18/19 11:40 STATUS: ARAMIS REQ #: [id number] BETTY: 08/18/19 11:[address]: Vandana Gutierrez DEPT: SURGICAL PATHOLOGY RECD BY: Efraín Sandhu ENTERED: 08/18/19 12:38 SP TYPE: Gastric Bx OTHR DR: MD Dr. Rocael Henry MD Dr. Tamera Robotham, MD [facility] Tissues: A - Gastric mucous membrane B - Gastric mucous membrane Procedures: Surgery Specimen Level IV Comments: @ Ordering doctor for SUIV edited from to @ by RGOOD at 08/19/19 0753 @ Submitting doctor edited from to @ by RGOOD at 08/19/19 0753 HEADER OPERATION: [facility] ([facility] PRE-OP DIAGNOSIS: Coffee ground emesis TISSUE SUBMITTED: A. Antrum biopsy for histo and H. pylori, B. GE junction MICROSCOPIC DIAGNOSIS A. Antrum, biopsy: Mild gastritis. See microscopic description and comment. B. GE junction, biopsy: Fragments of gastroesophageal mucosa with focal intestinal metaplasia (goblet cell metaplasia), consistent with Jeff's esophagus. Moderate chronic inflammation. Indefinite for low-grade dysplasia. See comment. SJ:rg 08/19/19 COMMENT A. The results of immunohistochemistry for Helicobacter pylori will be reported separately ([id number]). B. Immunohistochemistry ([id number]) supports the above diagnosis. MICROSCOPIC DESCRIPTION Slides are reviewed. A. The specimen shows fragments of gastric mucosa with chronic inflammatory cell infiltrates in the lamina propria consisting of lymphocytes and plasma cells, consistent with mild chronic gastritis. GROSS DESCRIPTION A - Received in fixative is one container labeled with the patient's name and designated antrum biopsy. The specimen consists of one irregular fragment of light li soft tissue that measures 0.3 x 0.2 x 0.1 cm. The specimen is totally submitted in one cassette. B - Received in fixative is one container labeled with the patient's name and designated GE junction biopsy. The specimen consists of two irregular fragments of light li soft tissue that in aggregate measure 0.4 x 0.2 x 0.1 cm. The specimen is totally submitted in one cassette. / SJ:rg 08/18/19 TC:3 CPT: 47547 x2
--- NOTE | 2019-08-18 11:23 | OP.EGD_ITS ---
Patient Name: Faraz Rodrigues Procedure Date: 08/18/2019 10:42 AM Date of : 1955 Age: 64 Procedure: Upper GI endoscopy Indications: Coffee-ground emesis Providers: Vandana Gutierrez MD Medicines: Monitored Anesthesia Care Patient Profile: This is a 64 year old male. Complications: No immediate complications. Procedure: Pre-Anesthesia Assessment: - Prior to the procedure, a History and Physical was performed, and patient medications and allergies were reviewed. The patient's tolerance of previous anesthesia was also reviewed. The risks and benefits of the procedure and the sedation options and risks were discussed with the patient. All questions were answered, and informed consent was obtained. Prior Anticoagulants: The patient has taken no previous anticoagulant or antiplatelet agents. ASA Grade Assessment: II - A patient with mild systemic disease. After reviewing the risks and benefits, the patient was deemed in satisfactory condition to undergo the procedure. After obtaining informed consent, the endoscope was passed under direct vision. Throughout the procedure, the patient's blood pressure, pulse, and oxygen saturations were monitored continuously. The gastroscope was introduced through the mouth, and advanced to the second part of duodenum. The upper GI endoscopy was accomplished without difficulty. The patient tolerated the procedure well. Scope In: 11:06:49 AM Scope Out: 11:13:02 AM Total Procedure Duration Time 0 hours 6 minutes 13 seconds Findings: The Z-line was irregular and was found 39 cm from the incisors. Biopsies were taken with a cold forceps for histology. Mildly erythematous mucosa without bleeding was found in the cardia and in the gastric antrum. Biopsies were taken with a cold forceps for histology. Biopsies were taken with a cold forceps for Helicobacter pylori cultures. The cardia and gastric fundus were normal on retroflexion. The examined duodenum was normal. Impression: - Z-line irregular, 39 cm from the incisors. Biopsied. - Erythematous mucosa in the cardia and antrum. Biopsied. - Normal examined duodenum. Recommendation: - Await pathology results. - [facility] patient [facility] for possible discharge same day. - Resume regular diet. - Use Protonix (pantoprazole) 40 mg PO daily for 2 weeks. - Continue present medications. Procedure Code(s): --- Professional --- 48499, Esophagogastroduodenoscopy, flexible, transoral; with biopsy, single or multiple Diagnosis Code(s): --- Professional --- K22.8, Other specified diseases of esophagus K31.89, Other diseases of stomach and duodenum K92.0, Hematemesis CPT copyright 2017 [employer]. All rights reserved. The codes documented in this report are preliminary and upon beef cattle farm manager review may be revised to meet current compliance requirements. MD Vandana Tian MD 08/18/2019 11:22:31 AM This report has been signed electronically. Number of Addenda: 0 Note Initiated On: 08/18/2019 10:42 AM
--- NOTE | 2019-08-18 11:23 | OP.CCLET_ITS ---
08/18/2019 [facility] Re : Upper GI endoscopy procedure for Faraz [facility] This procedure was performed on Sunday, August 18, 2019. My impressions and recommendations are as follows: Impressions : - Z-line irregular, 39 cm from the incisors. Biopsied. - Erythematous mucosa in the cardia and antrum. Biopsied. - Normal examined duodenum. Recommendations : - Await pathology results. - Return patient to [facility] for possible discharge same day. - Resume regular diet. - Use Protonix (pantoprazole) 40 mg PO daily for 2 weeks. - Continue present medications. My findings are described in the full procedure note, which is enclosed. If I can be of further assistance, please feel free to contact me at Doctor phone number(s): , Work: . Sincerely, MD Vandana Tian MD 08/18/2019 11:22:31 AM This report has been signed electronically.
[2019-08-18 12:30] LABS: Bedside Glucose 111 mg/dL (70-110)
--- NOTE | 2019-08-18 12:48 | DCINST_ITS ---
- Discharge Diagnoses Current Active Problems: Current Active and Chronic Problems Acute gastroenteritis (Acute) Reason(s) for Visit for Discharge Instructions: GI bleed You will use the following diet at home:: Regular Your food should be the consistency of: Regular Your liquids should be the consistency of: Regular/Thin Discharge Activity: Return to Normal Activity Instructions: Treating Gastritis, Understanding Gastritis Additional Instructions: Cotinue to hydrate yourself. Monitor your blood sugar closely. Allergies/Adverse Reactions: Allergies No Known Allergies Allergy (Verified 06/17/19 01:36) Medications to take at Discharge Amlodipine [Norvasc] 10 mg PO DAILY 10/05/16 Insulin Aspart [Novolog Flexpen] 45 units SC TID 10/05/16 Lisinopril [Prinivil] 20 mg PO DAILY 10/05/16 Metoprolol Tartrate [Lopressor (beta jay)] 150 mg PO BID 10/05/16 Nortriptyline HCl 20 mg PO DAILY 10/05/16 metFORMIN HCl [Glucophage] 1,000 mg PO DAILY 10/05/16 Calcium Carbonate [Calcium] 500 mg PO BID 08/17/17 Cholecalciferol (VIT D3) [Vitamin D3] 1,000 unit PO DAILY 08/17/17 Insulin Glargine,Hum.rec.anlog [Lantus] 100 unit SQ BID 08/17/17 Liraglutide [Victoza] 1.8 mg SQ DAILY 08/17/17 Freedom-3 Fatty Acids/Fish Oil [Fish Oil 1,000 mg Capsule] 1,000 mg PO BID 08/17/17 Pregabalin [Lyrica] 100 mg PO BID 08/17/17 Tamsulosin HCl [Flomax] 0.4 mg PO DAILY 08/17/17 Buspirone HCl 10 mg PO QHS 06/17/19 Modafinil 200 mg PO DAILY 06/17/19 Sertraline HCl [Zoloft] 150 mg PO DAILY 06/17/19 Aspirin [Aspirin, Baby] 81 mg PO DAILY@0800 08/17/19 Atorvastatin Calcium [Lipitor] 40 mg PO QHS 08/17/19 Pantoprazole Sodium [Protonix] 40 mg PO BID 14 Days #28 tab 08/18/19 The following prescriptions were given: Pantoprazole Sodium [Protonix] 40 mg PO BID 30 Days #60 tab Transmission Status: Pending to [id number] Primary Care Physician: [facility],[place] [Primary Care Provider] - Please follow up with your Primary Care Physician in: within 1-2 weeks Test Results: Test results from this visit will be discussed in further detail at your follow- up appointment, if applicable. Please Follow Up With: Vandana Gutierrez MD When: in 2 weeks Proposed Discharge Date: 08/18/19
--- NOTE | 2019-08-18 12:51 | DS.PCM_ITS ---
Discharge Date and Diagnosis - Problem List Patient Problems: Active and Suspected Problems Acute gastroenteritis (Acute) Date of Admission: 08/17/19 Date of Discharge: 08/18/19 - Primary Discharge Diagnosis Active and Suspected Problems Acute gastroenteritis (Acute) Acute gastritis Acute GI bleed secondary to gastritis - Secondary Discharge Diagnosis Chronic Problems Essential (primary) hypertension (Chronic) DM2 (diabetes mellitus, type 2) (Chronic) Hospital Course and Treatment Imaging Results: Clinical Impression(s) from Imaging Studies Abdomen/Pelvis CT 08/17/19 02:55 IMPRESSION: 1. Good position of the NG tube. The lower esophagus shows mild circumferential mural thickening in keeping with esophagitis. 2. Fatty liver and otherwise no overt CT findings of cirrhosis or portal hypertension. No splenomegaly or ascites. 3. Age-indeterminate minimally displaced fractures of the anterior right fifth and sixth ribs. 4. Small fat-containing left inguinal hernia. Additional nonacute findings, as above. Individualized dose optimization techniques were used for this CT. at 0459 Reported and signed by: Peewee العراقي MD Electronically Signed: Peewee العراقي, at 4:58 EST Tel , Service support , General surgery Operations: None Procedures: EGD Summary of Care Provided: The patient is a 64 year old M with past medical history of hypertension and type II DM who was admitted with intractable nausea and vomiting that started 3 days prior after eating a sandwich from [facility]. Associated with the nausea vomiting was hematemesis and dark stools. Work-up in the ED showed stable hemoglobin. FOBT was negative. General surgery was consulted. Patient had an NG tube placed. The NG tube was later clamped. No residuals. Patient started on clear liquid diet. He underwent EGD on 08/17/2014 showed mild gastritis. Biopsies were taken. Patient was discharged on oral PPIs. He would be on this for 2 weeks. He will follow-up with general surgery in 2 weeks for results of his biopsies. He was discharged in a stable state. Patient Problems: Active and Suspected Problems Acute gastroenteritis (Acute) Subjective: On the day of discharge, patient was seen and examined. He denied any new complaints. He had EGD that showed some gastritis. Biopsies were taken. - Physical Exam Vitals/I&O's: Vital Signs Temp Pulse Resp BP Pulse Ox 98.0 F 76 18 117/65 95 08/18/19 12:17 08/18/19 12:17 08/18/19 12:17 08/18/19 12:17 08/18/19 12:17 Oxygen Flow Rate (L/min) 3 Oxygen Delivery Method Room Air Weight: 79.9 kg Body Mass Index (BMI) 28.4 Finger Stick Blood Glucose 379 Intake and Output for Last 24 Hours 08/16/19 08/17/19 08/18/19 23:59 23:59 23:59 Intake Total 3838.83 / 4128.83 1090.17 / 1090.17 Output Total 280 / 705 425 / 425 Balance 3558.83 / 3423.83 665.17 / 665.17 General: Alert, Oriented x3, Cooperative, No apparent distress HEENT: Atraumatic, PERRLA, EOMI, Normocephalic Oral: Moist Mucosa Neck: Supple Lungs: Clear to auscultation, Normal air movement Cardiovascular: Regular rate, Regular Rhythm, Normal S1, Normal S2, No murmurs Abdomen: Bowel Sounds Present, Soft, Non Tender, Non-Distended, No Hepato- splenomegaly Extremities: No edema Skin: No rashes, No breakdown Musculoskeletal: No Tenderness to Palpation of Joints or Extremities Lymphatic: No Cervical, Supraclavicular, or Inguinal Adenopathy Neurological: Cranial nerves II-XII grossly intact, Neuro grossly intact Psych/Mental Status: Normal Affect, Appropriate Microbiology Past 72 Hours 08/17/19 03:30 Stool Stool Occult Blood (ANJELICA) - Final Laboratory Results 08/17/19 11:34: POC Glucose 321 H 08/17/19 14:13: Hgb 14.4, Hct 41.3 08/17/19 16:42: POC Glucose 46 L 08/17/19 17:12: POC Glucose 134 H 08/17/19 21:59: POC Glucose 102 08/17/19 22:25: Hgb 14.0, Hct 40.1 08/18/19 05:30: Sodium 140, Potassium 3.8, Chloride 107, Carbon Dioxide 28.0, Anion Gap 5, BUN 14, Creatinine 0.90, Estim Creat Clear Calc 75.81, Est GFR (MDRD) Af Amer 109, Est GFR (MDRD) Non-Af 90, BUN/Creatinine Ratio 15.5, Glucose 91, Calcium 7.9 L 08/18/19 05:30: Hemoglobin A1c 12.0 H 08/18/19 07:45: POC Glucose 125 H 08/18/19 12:27: POC Glucose 111 H Current Medications Amlodipine Besylate (Norvasc) 10 mg PO DAILY [facility] Last Admin: 08/18/19 07:58 Dose: 10 mg Documented by: Atorvastatin Calcium (Lipitor) 10 mg PO QHS [facility] Last Admin: 08/17/19 21:37 Dose: 10 mg Documented by: Buspirone HCl (Buspar) 10 mg PO QHS [facility] Last Admin: 08/17/19 21:46 Dose: 10 mg Documented by: Calcium Carbonate (Os-Larry 500) [facility] Last Admin: 08/18/19 08:55 Dose: Not Given Documented by: Cholecalciferol (Vitamin D (25mcg)) 1,000 [facility] Last Admin: 08/18/19 08:55 Dose: Not Given Documented by: Glucagon () 1 mg IM .X1 PRN PRN Reason: Hypoglycemia Potassium Chloride 40 meq/ (Sodium Chloride) 1,020 mls @ 130 mls/hr IV .Q7H51M [facility] Last Admin: 08/18/19 03:19 Dose: 130 mls/hr Documented by: Pantoprazole Sodium 40 mg/ (Sodium Chloride) 110 mls @ 330 mls/hr IV Q12 [facility] Last Infusion: 08/18/19 09:13 Dose: Infused Documented by: Dextrose (Dextrose 10%-Water) 250 mls @ 999 mls/hr IV .Q16M PRN; Protocol PRN Reason: HYPOGLYCEMIA Insulin Glargine (Lantus (Bkc)) 50 units SC BID [facility] Last Admin: 08/17/19 22:01 Dose: 50 u Documented by: Insulin Human Lispro (Humalog Kwikpen (Bkc)) 45 unit SC 0800,1200,1700 [facility] Last Admin: 08/18/19 07:53 Dose: Not Given Documented by: Insulin Human Lispro (Humalog Kwikpen (Bkc)) 0 unit SC ACHS [facility]; Protocol Last Admin: 08/18/19 07:52 Dose: Not Given Documented by: Labetalol HCl (Trandate) 10 mg IV Q4H PRN PRN PRN Reason: sbp > 160 Metoprolol Tartrate (Lopressor (Beta Keisha)) 150 mg PO BID [facility] Last Admin: 08/18/19 07:57 Dose: 150 mg Documented by: Pregabalin (Lyrica) 25 mg PO BID [facility] Last Admin: 08/17/19 21:45 Dose: 25 mg Documented by: Prochlorperazine Edisylate (Compazine Iv) 5 mg IV Q4H PRN PRN PRN Reason: Breakthrough nausea/vomiting Sertraline HCl (Zoloft) 150 mg PO DAILY [facility] Sodium Chloride () 10 - 40 ml IV UD PRN PRN Reason: SALINE FLUSH Tamsulosin HCl (Flomax) 0.4 mg PO DAILY@1730 [facility] Last Admin: 08/17/19 17:18 Dose: 0.4 mg Documented by: Discharge Diet: Low fat/ Low Cholesterol, 2000 mg Sodium Diet, Carb Control Diet Discharge Activity: Return to Normal Activity Home Medications: Medications to take at Discharge Amlodipine [Norvasc] 10 mg PO DAILY 10/05/16 Insulin Aspart [Novolog Flexpen] 45 units SC TID 10/05/16 Lisinopril [Prinivil] 20 mg PO DAILY 10/05/16 Metoprolol Tartrate [Lopressor (beta keisha)] 150 mg PO BID 10/05/16 Nortriptyline HCl 20 mg PO DAILY 10/05/16 metFORMIN HCl [Glucophage] 1,000 mg PO DAILY 10/05/16 Calcium Carbonate [Calcium] 500 mg PO BID 08/17/17 Cholecalciferol (VIT D3) [Vitamin D3] 1,000 unit PO DAILY 08/17/17 Insulin Glargine,Hum.rec.anlog [Lantus] 100 unit SQ BID 08/17/17 Liraglutide [Victoza] 1.8 mg SQ DAILY 08/17/17 [place]-3 Fatty Acids/Fish Oil [Fish Oil 1,000 mg Capsule] 1,000 mg PO BID 08/17/17 Pregabalin [Lyrica] 100 mg PO BID 08/17/17 Tamsulosin HCl [Flomax] 0.4 mg PO DAILY 08/17/17 Buspirone HCl 10 mg PO QHS 06/17/19 Modafinil 200 mg PO DAILY 06/17/19 Sertraline HCl [Zoloft] 150 mg PO DAILY 06/17/19 Aspirin [Aspirin, Baby] 81 mg PO DAILY@0800 08/17/19 Atorvastatin Calcium [Lipitor] 40 mg PO QHS 08/17/19 Pantoprazole Sodium [Protonix] 40 mg PO BID 14 Days #28 tab 08/18/19 Following Prescrptions Were Given to Patient: Pantoprazole Sodium [Protonix] 40 mg PO BID 14 Days #28 tab Transmission Status: Received by [facility] Primary Care Physician: [facility],[place] [Primary Care Provider] - Please follow up with your Primary Care Physician in: within 1-2 weeks Please Follow Up With: Vandana Gutierrez MD When: in 2 weeks Patient Instructions: Treating Gastritis, Understanding Gastritis Disposition: Home Minutes spent on discharge:: 38 Patient Condition:: Stable Medical Necessity - Tobacco Use Smoking Status: Former smoker Tobacco Use: Cigarettes Meaningful Use Info Meaningful Use Diagnoses (Choose all that apply): None applicable Code Visit Inpatient E&M: 82900 Disch Hosp
--- NOTE | 2019-08-18 12:59 | NURSING ---
Student documentation reviewed.
[2019-08-18] MEDS: Sertraline 50 MG Tablet 150 MG PO (13:35)
[2019-08-18] MEDS: Pregabalin 25 MG Capsule PO (13:53)
[2019-08-18] MEDS: Insulin Lispro 100 UNIT/ML INSULN.PEN 45 UNIT SC (15:03)
== END 2019-08-18 16:29 | disposition home or self-care (01) | DRG 391 ==
LOC: ED 05:40 → MS3 06:10
PROVIDERS: Anesthesiology; Surgery; Admitting Provider Hospitalist; Emergency Provider Emergency Medicine; Visit Provider Internal Medicine
PROC: 0DJ08ZZ Inspection of Upper Intestinal Tract, Via Natural or Artificial Opening Endoscopic (ICD-10-PCS; CPT 43235; principal; 2019-08-18 10:55)
DX: K52.9 Noninfective gastroenteritis and colitis, unspecified (principal); K29.01 Acute gastritis with bleeding; E11.9 Type 2 diabetes mellitus without complications; G89.29 Other chronic pain; M54.9 Dorsalgia, unspecified; I10 Essential (primary) hypertension; Z79.4 Long term (current) use of insulin; Z87.891 Personal history of nicotine dependence
CPT/HCPCS: 36415; 74177; 80048; 80053; 82274; 82962; 83036; 83690; 83735; 84484; 85014; 85018; 85025; 85610; 85730; 88305; 88342; 93005; 94640; 97802; 99285; J7030; J7050; Q9967; A4216; J2405; J3490

== ENCOUNTER 2021-03-29 19:08 | Observation (INO) | payer OTHER, MEDICARE, SELFPAY ==
[2021-03-29] VITALS (8 sets, daily range): BP systolic 145–180; BP diastolic 81–109; PULSE 92–140; RESP 18–22; TEMP 35.8–37.8; O2SAT 96–99; BMI 29.5
--- NOTE | 2021-03-29 20:00 | EKG12_ITS ---
Test Reason : SYNCOPE Blood Pressure : / mmHG Vent. Rate : 119 BPM Atrial Rate : 119 BPM P-R Int : 158 ms QRS Dur : 100 ms QT Int : 356 ms P-R-T Axes : 042 196 055 degrees QTc Int : 500 ms Sinus tachycardia Otherwise normal ECG Confirmed by ASIYA FERREIRA, MINNIE ([id number]), college scouting coordinator GENARO JIMENEZ ([id number]) on 04/03/2021 6:48:19 AM Referred By: ROSALIA Confirmed By:MINNIE BRADEN MD
--- NOTE | 2021-03-29 20:01 | EDS_ITS ---
HPI History of Present Illness Chief Complaint: Hypertension Narrative Narrative: 66-year-old male with history of GA and states he had 2 mild heart attacks. He states that a couple of years ago when he was at a wedding he had to go to the hospital for chest pain and he was told he had a mild heart attack. At that time he had a catheterization and was told he had blockages. He says he believes he has a 70% blockage as well. He does not know where these blockages were. Patient has hyperlipidemia, diabetes. Patient states that he became ill about 3 days ago. He tested positive for Covid 2 days ago. Patient has fevers as high as 101. These do respond to Tylenol or ibuprofen. Patient is able to eat and drink without vomiting but states he is sleeping a lot and not drinking enough fluids. He does have body aches and chills. He does have a little bit of dyspnea but states he is not severely short of breath. He denies chest pain. He does admit to some epigastric discomfort and nausea. [facility] Medical History (Updated 03/29/21 @ 19:52 by Mayra Adkins) Depression Diabetes Hypertension Myocardial infarct Home Medications amlodipine 10 mg PO DAILY 10/05/16 [History Last Taken 08/14/19] insulin aspart U-100 [Novolog Flexpen U-100 Insulin] 50 units SUBCUT TID 10/05/16 [History Last Taken 08/14/19] lisinopril [Prinivil] 20 mg PO DAILY 10/05/16 [History Last Taken 08/14/19] metformin 1,000 mg PO DAILY 10/05/16 [History Last Taken 08/14/19] metoprolol tartrate 150 mg PO BID 10/05/16 [History Last Taken 08/14/19] nortriptyline 20 mg PO DAILY 10/05/16 [History Last Taken 08/14/19] Fish Oil 1,000 mg PO BID 08/17/17 [History Last Taken 08/14/19] Lantus U-100 Insulin 100 unit SQ BID 08/17/17 [History Last Taken 08/14/19] Victoza 2-Adan 1.8 mg SQ DAILY 08/17/17 [History Last Taken 08/14/19] calcium carbonate 500 mg PO BID 08/17/17 [History Last Taken 08/14/19] cholecalciferol (vitamin D3) [Vitamin D3] 1,000 unit PO DAILY 08/17/17 [History Last Taken 08/14/19] pregabalin 100 mg PO BID 08/17/17 [History Last Taken 08/14/19] buspirone 10 mg PO QHS 06/17/19 [History Last Taken 08/14/19] modafinil 200 mg PO DAILY 06/17/19 [History Last Taken 08/14/19] sertraline 150 mg PO DAILY 06/17/19 [History Last Taken 08/14/19] aspirin 81 mg PO DAILY@0800 08/17/19 [History Last Taken Unknown] atorvastatin 40 mg PO QHS 08/17/19 [History Last Taken 08/14/19] Allergy/AdvReac Type Severity Reaction Status Date / Time No Known Allergies Allergy Verified 03/29/21 22:21 Social History Smoking Status: Former smoker ROS ROS ED Constitutional Constitutional ED: Denies chills, fever(s) or sweats Eyes Eyes: Denies blurry vision or change in vision ENT ENT ED: Denies ear pain or sore throat Cardiovascular Cardiovascular: Reports racing heartbeat; Denies chest pain Respiratory/Chest Respiratory/Chest: Reports cough and dyspnea; Denies sputum Gastrointestinal Gastrointestinal: Reports abdominal pain and nausea; Denies constipation, diarrhea or vomiting Genitourinary Genitourinary ED: Denies dysuria, hematuria or urinary frequency Musculoskeletal Musculoskeletal: Reports myalgias; Denies arthralgias or neck pain Integumentary Denies abscess, Abrasions or rash Neurologic Neurologic: Denies headache(s), paresthesias or weakness Psychiatric Psychiatric: Denies anxiety, depression, suicidal ideation or suicidal thoughts Endocrine Endocrinology: Denies polydipsia or polyuria EXAM Physical Exam Const Vital Signs: 03/29/21 19:09 03/29/21 19:51 03/29/21 20:28 Temperature 96.5 F L 100.1 F H Temperature Source Temporal Oral Pulse Rate 140 H 124 H Respiratory Rate 22 H 20 H Respiratory Effort Normal Respiratory Pattern Normal Blood Pressure 158/97 H 175/95 H 164/103 H Blood Pressure Mean 117 121 123 Pulse Ox 99 98 Oxygen Delivery Method Room Air Room Air 03/29/21 20:53 03/29/21 21:25 03/29/21 22:20 Temperature 99.5 F H 98 F Temperature Source Oral Oral Pulse Rate 122 H 107 H Respiratory Rate 20 H 18 Respiratory Effort Respiratory Pattern Blood Pressure 145/99 H 174/98 H 180/109 H Blood Pressure Mean 114 123 132 Pulse Ox 96 98 Oxygen Delivery Method Room Air Room Air 03/29/21 22:26 03/29/21 23:20 Temperature 98.9 F Temperature Source Oral Pulse Rate 94 92 Respiratory Rate 20 H Respiratory Effort Respiratory Pattern Blood Pressure 156/91 H 156/81 H Blood Pressure Mean 112 106 Pulse Ox 97 Oxygen Delivery Method Room Air Positive well nourished, oriented x3 and no apparent distress HEENT Reports normocephalic and moist mucous membranes atraumatic Eyes PERRL and EOMs intact bilaterally Resp Effort and Inspection: able to speak in complete sentences and symmetric chest movement; Negative for respiratory distress or decreased respiratory effort Auscultation: clear to auscultation bilaterally Cardio regular rhythm Cardio Narrative: tahcycardic GI GI Narrative: Mild epigastric discomfort. Abdomen nonperitoneal. Negative Mu rphy sign. Neuro Meningeal Signs: no meningeal signs Motor Exam: strength 5/5 throughout Psych Appearance: grossly normal Skin no rashes or lesions noted, no wounds and No no jaundice MDM MDM MDM Narrative Medical decision making narrative: Male with history of CAD, diabetes, hypertension presenting with elevated blood pressure, body aches, chills and shortness of breath. He states he does not have specifically any chest pain. He states he has had the sweats. Patient is on day 3 of Covid symptoms and has tested positive however do not have the results were did retest him today and he is positive. Patient CBC shows his white blood count is 4.8, hemoglobin 16.7, hematocrit 47.5, platelets 165, patient is lymphopenic. Creatinine is normal. Sodium slightly decreased but otherwise electrolytes are normal. Patient's LFTs are normal however his lipase is 853. D-dimer is elevated at 0.69. EKG on my interpretation shows a normal sinus rhythm with a ventricular rate of 119 bpm without sign of ischemic change or dysrhythmia. Chest x-ray my interpretation shows no acute cardiopulmonary process. The radiologist does agree. Troponin came back elevated at 147. CTA of the chest is performed which is negative for PE, dissection, other acute process. Given patient's elevated troponin I will delta delta. I believe the patient will need to be admitted due to his risk factors and elevated troponin with a negative work-up for PE and COVID-19 findings with exception of a positive COVID-19 test. Second troponin is pending. If this is elevated he will likely need heparin drip. Impression: 1. COVID-19 2. Hypertension established [id number] 3. Epigastric pain 4. Elevated troponin Lab Data Attestation: I reviewed the patient's lab results. Labs: Laboratory Results - last 24 hr 03/29/21 03/29/21 03/29/21 20:33 20:33 20:33 WBC 4.8 RBC 5.67 Hgb 16.7 H Hct 47.5 MCV 83.8 MCH 29.5 MCHC 35.2 RDW Std Deviation 36.1 RDW Coeff of Eben 12.0 Plt Count 165 MPV 9.3 Immature Gran % (Auto) 0.200 Neut % (Auto) 65.4 Lymph % (Auto) 17.0 L [place] % (Auto) 17.0 H Eos % (Auto) 0.0 Baso % (Auto) 0.4 Absolute Neuts (auto) 3.1 Absolute Lymphs (auto) 0.81 L Nucleated RBC % 0 D-Dimer Quant (PE/DVT) Sodium 133 L Potassium 3.5 Chloride 97 L Carbon Dioxide 27.0 Anion Gap 9 BUN 21 H Creatinine 1.28 Estim Creat Clear Calc 51.92 Est GFR (MDRD) Af Amer 73 Est GFR (MDRD) Non-Af 60 BUN/Creatinine Ratio 16.4 Glucose 250 H Calcium 8.8 Total Bilirubin 0.90 AST 41 H ALT 55 Alkaline Phosphatase 115 Troponin I High Sens 147 H* Total Protein 8.2 Albumin 3.4 Globulin 4.8 H Albumin/Globulin Ratio 0.7 L Lipase 853 H Procalcitonin 0.07 03/29/21 20:33 WBC RBC Hgb Hct MCV MCH MCHC RDW Std Deviation RDW Coeff of Eben Plt Count MPV Immature Gran % (Auto) Neut % (Auto) Lymph % (Auto) [place] % (Auto) Eos % (Auto) Baso % (Auto) Absolute Neuts (auto) Absolute Lymphs (auto) Nucleated RBC % D-Dimer Quant (PE/DVT) 0.69 H* Sodium Potassium Chloride Carbon Dioxide Anion Gap BUN Creatinine Estim Creat Clear Calc Est GFR (MDRD) Af Amer Est GFR (MDRD) Non-Af BUN/Creatinine Ratio Glucose Calcium Total Bilirubin AST ALT Alkaline Phosphatase Troponin I High Sens Total Protein Albumin Globulin Albumin/Globulin Ratio Lipase Procalcitonin Radiography Diagnostic Testing: Clinical Impression(s) from Imaging Studies Chest X-Ray 03/29/21 20:42 IMPRESSION: No acute cardiopulmonary disease or interval change. Electronically Signed: Jamaal SerinaDO at 21:23 EDT Tel [phone], Service support , Chest CTA 03/29/21 22:51 IMPRESSION: Normal CTA chest examination, without a demonstrated pulmonary embolism or arterial dissection. Electronically Signed: Jamaal SonoraDO pooja at 23:47 EDT Tel [phone], Service support , Discharge Plan Triage Chief Complaint: Hypertension ED Provider: Cralo Santana Dx/Rx/DC Orders Prescriptions: No Action metoprolol tartrate 100 MG tablet 150 mg PO BID RF: 0 amlodipine 5 MG tablet 10 mg PO DAILY RF: 0 nortriptyline 10 MG capsule 20 mg PO DAILY RF: 0 metformin 1,000 MG tablet 1,000 mg PO DAILY RF: 0 lisinopril [Prinivil] 10 MG tablet 20 mg PO DAILY RF: 0 insulin aspart U-100 [Novolog Flexpen U-100 Insulin] 100 UNITS/ML insulin pen 50 units subcut TID RF: 0 pregabalin 25 MG capsule 100 mg PO BID RF: 0 calcium carbonate 500 MG tablet 500 mg PO BID RF: 0 Fish Oil 1 EACH capsule 1,000 mg PO BID RF: 0 Lantus U-100 Insulin 100 UNIT/ML solution 100 unit SQ BID RF: 0 cholecalciferol (vitamin D3) [Vitamin D3] 1,000 UNIT tablet 1,000 unit PO DAILY RF: 0 Victoza 2-Adan 0.6 MG/0.1 ML pen injector 1.8 mg SQ DAILY RF: 0 sertraline 100 MG tablet 150 mg PO DAILY RF: 0 modafinil 200 MG tablet 200 mg PO DAILY RF: 0 buspirone 10 MG tablet 10 mg PO QHS RF: 0 atorvastatin 10 MG tablet 40 mg PO QHS RF: 0 aspirin 81 MG tablet,chewable 81 mg PO DAILY@0800 RF: 0 Primary Care Provider: [facility]
--- NOTE | 2021-03-29 20:42 | RAD_ITS ---
STUDY: X-RAY CHEST REASON FOR EXAM: Male, 66 years old. Cough for 3 days. COVID positive. Hypertension. TECHNIQUE: Single AP portable view of the chest. COMPARISON: 08/17/2017. FINDINGS: The lungs are mildly hypoexpanded. There is no infiltrate or mass within the lungs. There is no demonstrated pleural abnormality. Normal size heart. Normal mediastinum and orin. Normal visualized pulmonary arteries. Normal visualized aortic arch and descending thoracic aorta. No osseous changes. There is no demonstrated abnormality of the visualized soft tissue structures of the upper abdomen. RAD/Chest 1 View (Portable) IMPRESSION: No acute cardiopulmonary disease or interval change. Electronically Signed: Jamaal Smalls DO at 21:23 EDT Tel [phone], Service support ,
[2021-03-29 20:50] LABS: Absolute Lymphocyte Count 0.81 X10^3/uL (0.83-4.51); Absolute Neutrophil Count 3.1 X10^3/uL (2.0-7.7); Basophil# 0.02 X10^3/uL; Basophil% 0.4 % (0-1); Hematocrit 47.5 % (40-54); Hemoglobin 16.7 g/dL (13.0-16.5); Lymphocyte # 0.81 X10^3/ul (0.83-4.51); Mean Corp Hgb Conc 35.2 g/dL (32-36); Mean Corpuscular Hgb 29.5 pg (27.0-32.0); Mean Corpuscular Volume 83.8 fL (80-94); Mean Platelet Vol. 9.3 fl (6.2-12.0); Monocyte# 0.81 X10^3/uL; NRBC Flagged by Analyzer 0 % (0-5); Neutrophil # 3.12 X10^3/uL (2.7-7.7); Neutrophil % 65.4 % (47-70); Platelet Count 165 K/mm3 (150-450); RBC Distribution Width SD 36.1 fl (35.1-43.9); Red Blood Count 5.67 M/mm3 (4.6-6.2); White Blood Count 4.8 K/mm3 (4.4-11.0)
[2021-03-29 21:11] LABS: D-Dimer Quantitative (DVT/PE) 0.69 FEU/ug/m (0.27-0.49)
[2021-03-29 21:21] LABS: Procalcitonin 0.07 ng/mL (0.00-0.09)
[2021-03-29 21:25] LABS: ALB/GLOB Ratio 0.7 RATIO (0.9-2.4); AST(SGOT) 41 U/L (15-37); Alanine Aminotransfer ALT/SGPT 55 U/L (16-61); Albumin, Serum 3.4 g/dL (3.2-5.0); Alkaline Phosphatase 115 U/L (45-117); Anion Gap 9 (5-15); BUN 21 mg/dL (7-18); BUN/Creat Ratio 16.4 RATIO (10-20); Calcium,Total 8.8 mg/dL (8.5-10.1); Chloride 97 mmol/L (98-107); Creatinine, Serum 1.28 mg/dL (0.70-1.30); EST Glomerular Filtration Rate 60 mL/min (>60); Est Glom Filt Rate - Afr Amer 73 mL/min (>60); Estimated Creatinine Clearance 51.92 ml/min; Globulin 4.8 g/dL (2.2-4.2); Glucose 250 mg/dL (74-106); Lipase 853 U/L (73-393); Potassium 3.5 mmol/L (3.5-5.1); Protein, Total 8.2 g/dL (6.4-8.2); Sodium Level 133 mmol/L (136-145); Troponin-I HS 147 pg/mL (3.0-78.0)
[2021-03-29] MEDS: Aspirin 81 MG TAB.CHEW 324 MG PO (21:49)
[2021-03-29] MEDS: Labetalol (Prefilled) 20 MG/4 ML IV (22:18)
--- NOTE | 2021-03-29 22:51 | CT_ITS ---
STUDY: CTA CHEST REASON FOR EXAM: Male, 66 years old. Chest pain. Elevated blood pressure. Sweats. COVID +2 days ago. History of diabetes, hypertension reflux and prior CT. RADIATION DOSAGE (If Supplied By Facility): CTDIvol = ( 29.15 ) mGy, DLP = ( 515.97 ) mGycm TECHNIQUE: The examination was performed with the intravenous administration of IV 100mL Isovue-370. Post-processing of the angiographic images was performed, with multiplanar reformation and 3D reconstruction. Individualized dose optimization techniques were used for this CT. COMPARISON: Chest, 03/29/2021 FINDINGS: Normal enhancement of the main pulmonary artery and right and left pulmonary arteries. Normal enhancement of the bilateral peripheral pulmonary arteries. There is no demonstrated pulmonary embolism. Bilateral atherosclerotic changes of the thoracic aorta without aneurysm. There is no demonstrated aortic dissection. Normal heart and pericardium. There are calcifications of the coronary arteries. Normal mediastinum. Normal hilar regions. Normal visualized trachea and bronchi. The lungs are well expanded. Normal pulmonary parenchyma. Normal pleura. Normal chest wall structures. There are degenerative changes of thoracic spine. Normal visualized upper abdomen. CT/CTA Chest W/WO Contrast IMPRESSION: Normal CTA chest examination, without a demonstrated pulmonary embolism or arterial dissection. Electronically Signed: Jamaal Smalls DO at 23:47 EDT Tel [phone], Service support ,
[2021-03-30] VITALS (17 sets, daily range): BP systolic 139–171; BP diastolic 73–93; PULSE 74–99; RESP 13–20; TEMP 37.3–38.1; O2SAT 92–97; BMI 29.5
[2021-03-30 00:46] LABS: Troponin-I HS 140 pg/mL (3.0-78.0)
--- NOTE | 2021-03-30 01:07 | PCM.HP.STD ---
HPI - General General Date of Admission: 03/30/21 Date of Service: 03/30/21 Chief Complaint: Elevated blood pressure HPI Narrative OPAL CRUZ, is a 66 M with a significant history of high blood pressure; diabetes mellitus; and obstructive sleep apnea who presents to the emergency department because of elevated blood pressure. Of notes patient was diagnosed with Covid 2 days prior to presentation. He was told that if his blood pressure is [id number] he should return to the urgent care. Because of lethargy patient has not been taking her blood pressure medicine. He reported the last time he took his blood pressure medicine was Friday evening 03/27/2021. On the day of presentation his blood pressure was 156/98. And following the instructions given at the urgent care for elevated blood pressure above 140/80 patient came to the emergency department. Patient denies shortness of breath. He reports a profuse dry cough. He reports fatigue; myalgia; loss of appetite; and dysgeusia. He denies anosmia. He denies dyspnea. Patient his unvaccinated and his stepson tested positive before patient did. [facility] Medical History (Updated 03/30/21 @ 02:54 by Valerie Corona) Anxiety Chest pain Chronic pain Coronary artery disease CPAP (continuous positive airway pressure) dependence Depression Diabetes Former smoker GERD (gastroesophageal reflux disease) GI bleed Hearing loss, left Hearing loss, right Hypertension Hypothyroidism Migraines Myocardial infarct Osteoporosis Sleep apnea Vision loss of right eye Home Medications amlodipine 10 mg PO DAILY 10/05/16 [History Last Taken 08/14/19] insulin aspart U-100 [Novolog Flexpen U-100 Insulin] 50 units SUBCUT TID 10/05/16 [History Last Taken 08/14/19] lisinopril [Prinivil] 20 mg PO DAILY 10/05/16 [History Last Taken 08/14/19] metformin 1,000 mg PO DAILY 10/05/16 [History Last Taken 08/14/19] metoprolol tartrate 150 mg PO BID 10/05/16 [History Last Taken 08/14/19] nortriptyline 20 mg PO DAILY 10/05/16 [History Last Taken 08/14/19] Fish Oil 1,000 mg PO BID 08/17/17 [History Last Taken 08/14/19] Lantus U-100 Insulin 100 unit SQ BID 08/17/17 [History Last Taken 08/14/19] Victoza 2-Adan 1.8 mg SQ DAILY 08/17/17 [History Last Taken 08/14/19] calcium carbonate 500 mg PO BID 08/17/17 [History Last Taken 08/14/19] cholecalciferol (vitamin D3) [Vitamin D3] 1,000 unit PO DAILY 08/17/17 [History Last Taken 08/14/19] pregabalin 100 mg PO BID 08/17/17 [History Last Taken 08/14/19] buspirone 10 mg PO QHS 06/17/19 [History Last Taken 08/14/19] modafinil 200 mg PO DAILY 06/17/19 [History Last Taken 08/14/19] sertraline 150 mg PO DAILY 06/17/19 [History Last Taken 08/14/19] aspirin 81 mg PO DAILY@0800 08/17/19 [History Last Taken Unknown] atorvastatin 40 mg PO QHS 08/17/19 [History Last Taken 08/14/19] tamsulosin 0.4 mg PO DAILY 03/30/21 [History Last Taken Unknown] Allergy/AdvReac Type Severity Reaction Status Date / Time No Known Allergies Allergy Verified 03/29/21 22:21 Family History (Updated 03/30/21 @ 02:54 by Valerie Corona) Mother Diabetes Father Heart disease CVA (cerebral vascular accident) Surgical History History of back surgery History of cholecystectomy Social History household members: spouse and children housing: apartment financial difficulty paying for basics: not very hard service: Yes current occupational status: disabled Smoking Status: Former smoker Tobacco: How many years used: 30 diet: diabetic what type of physical activity do you participate in: walking How many days of moderate to strenuous exercise, like a brisk walk, did you do in the last 7 days: 7 ROS ROS Narrative Constitutional: Reports anorexia and fatigue. Denies fever, chills, and change in weight Eyes: Denies blurry vision, change in eye color, change in vision, discharge from eye(s), double vision, erythema, eye pain, loss of vision or other HEENT: Denies abnormal hearing, dysphagia, ear pain, epistaxis, headache(s), hearing loss, nasal congestion, nasal discharge, post nasal drip, sinus pressure, sore throat or other Cardiovascular: Denies chest pain or palpitations. Denies dyspnea on exertion, orthopnea and paroxysmal nocturnal dyspnea Respiratory/Chest: Reports dry cough. Denies excessive phlegm production, shortness of breath with exertion and wheezing Gastrointestinal: Reports epigastric pain. Denies coffee ground emesis, constipation, diarrhea, dyspepsia, hematemesis, hematochezia, loose stools, melena, nausea, vomiting or other Genitourinary: Denies burning urination, difficulty urinating, dysuria, hematuria, nocturia, urinary frequency, urinary hesitancy, urinary incontinence, urinary urgency or other Musculoskeletal: Reports myalgia. Denies arthralgias, back pain, joint pain, joint stiffness, joint swelling, neck pain or other Neurologic: Denies abnormal gait, abnormal speech, confusion, disequilibrium, dizziness, focal weakness, headache(s), numbness, paresthesias, seizure-like activity, seizures, syncope, tingling, tremor(s) or other Psychiatric: Denies anxiety, depression, homicidal ideation, suicidal ideation or other Endocrinology: Denies change in body appearance, cold intolerance, excessive sweating, heat intolerance, polydipsia, polyuria or other Hematologic/Lymphatic: Denies anemia, easy bleeding, easy bruising, lymphadenopathy or other Integumentary: Denies rashes Allergic/Immunologic: Denies rhinitis, hives, eczema, asthma or other Vital Signs Vital Signs Vital Signs: 03/29/21 19:09 03/29/21 19:51 03/29/21 20:28 Temperature 96.5 F L 100.1 F H Temperature Source Temporal Oral Pulse Rate 140 H 124 H Respiratory Rate 22 H 20 H Respiratory Effort Normal Respiratory Pattern Normal Blood Pressure 158/97 H 175/95 H 164/103 H Blood Pressure Mean 117 121 123 Pulse Ox 99 98 Oxygen Delivery Method Room Air Room Air 03/29/21 20:53 03/29/21 21:25 03/29/21 22:20 Temperature 99.5 F H 98 F Temperature Source Oral Oral Pulse Rate 122 H 107 H Respiratory Rate 20 H 18 Respiratory Effort Respiratory Pattern Blood Pressure 145/99 H 174/98 H 180/109 H Blood Pressure Mean 114 123 132 Pulse Ox 96 98 Oxygen Delivery Method Room Air Room Air 03/29/21 22:26 03/29/21 23:20 03/30/21 00:20 Temperature 98.9 F 99.1 F Temperature Source Oral Oral Pulse Rate 94 92 94 Respiratory Rate 20 H 20 H Respiratory Effort Respiratory Pattern Blood Pressure 156/91 H 156/81 H 169/93 H Blood Pressure Mean 112 106 118 Pulse Ox 97 94 Oxygen Delivery Method Room Air Room Air Weight Weight: 83.098 kg Body Mass Index (BMI) 29.5 Physical Exam Narrative Physical exam: General: Well-nourished, well-developed. Head: Normocephalic, atraumatic, no tenderness Eyes: PERRLA, EOMI ENT, no trauma, moist mucous membranes, no rhinorrhea Neck: Nontender, full range of motion, no spinal tenderness, deformities, step-off CVS: Regular rate and rhythm. S1-S2 present. No murmur, gallop or rub. Respiratory : clear to auscultation bilaterally, chest wall nontender, no wheezing Abdomen: Soft, nontender, nondistended, normal bowel sounds, no masses : Deferred Back: Nontender, no CVA tenderness, no midline spinal tenderness, deformities, step-offs Extremities: Nontender full range of motion, no trauma Skin: Normal color, no trauma, abrasions Neuro: Alert, oriented, cranial nerves II through XII grossly intact. Psychiatry: Normal mood. Normal affect. Not depressed. Not anxious. Results Lab / Micro Data Result Diagrams: 03/30/21 03:07 03/30/21 03:07 Labs: Laboratory Results - last 24 hr 03/29/21 20:33: Procalcitonin 0.07 03/29/21 20:33: WBC 4.8, RBC 5.67, Hgb 16.7 H, Hct 47.5, MCV 83.8, MCH 29.5, MCHC 35.2, RDW Std Deviation 36.1, RDW Coeff of Eben 12.0, Plt Count 165, MPV 9.3, Immature Gran % (Auto) 0.200, Neut % (Auto) 65.4, Lymph % (Auto) 17.0 L, [place] % (Auto) 17.0 H, Eos % (Auto) 0.0, Baso % (Auto) 0.4, Absolute Neuts (auto) 3.1, Absolute Lymphs (auto) 0.81 L, Nucleated RBC % 0 03/29/21 20:33: Sodium 133 L, Potassium 3.5, Chloride 97 L, Carbon Dioxide 27.0, Anion Gap 9, BUN 21 H, Creatinine 1.28, Estim Creat Clear Calc 51.92, Est GFR (MDRD) Af Amer 73, Est GFR (MDRD) Non-Af 60, BUN/Creatinine Ratio 16.4, Glucose 250 H, Calcium 8.8, Total Bilirubin 0.90, AST 41 H, ALT 55, Alkaline Phosphatase 115, Troponin I High Sens 147 H*, Total Protein 8.2, Albumin 3.4, Globulin 4.8 H, Albumin/Globulin Ratio 0.7 L, Lipase 853 H 03/29/21 20:33: D-Dimer Quant (PE/DVT) 0.69 H* 03/29/21 23:50: Troponin I High Sens 140 H* Micro: Microbiology 03/29/21 20:05 Nasal Secretion SARS-CoV-2 Antigen (Rapid) - Final SARS-CoV-2 (COVID 19) Radiology Impression Chest X-Ray 03/29/21 20:42 IMPRESSION: No acute cardiopulmonary disease or interval change. Electronically Signed: Jamaal Smalls DO at 21:23 EDT Tel [phone], Service support , Chest CTA 03/29/21 22:51 IMPRESSION: Normal CTA chest examination, without a demonstrated pulmonary embolism or arterial dissection. 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 Highest systolic blood pressure of 180. Received labetalol at the emergency department. Home blood pressure medication continued. Order to give home dose of metoprolol now. Trend blood pressure and adjust blood pressure medications. Elevated troponin High sensitive troponin at the ED initially was 140. Repeat was 147. Likely demand ischemia from hypertensive urgency. EKG with sinus tach. Received aspirin 324 mg at emergency department. Continue daily aspirin and daily high intensity Lipitor. Trend troponin. Elevated lipase His lipase is mildly elevated at 853. Review of records on 08/17/2019 his lipase was 440. Patient with no nausea or vomiting. Patient has epigastric pain that could be from coughing. We will trend lipase. Gentle IV hydration. We will not overload patient with IV fluids in the setting of COVID-19 infection. Patient is status post cholecystectomy. COVID-19 virus infection D-dimer was 0.69. Chest CTA independently interpreted did not show any pulmonary embolism or acute dissection. I agree with radiologist interpretation above. Patient is not hypoxic. Clinical monitoring. Diabetes mellitus with complications of neuropathy Patient with hyperglycemia presented Home basal insulin and prandial insulin continued. Accu-Chek with correction scale insulin ordered. Hold Metformin and Victoza. Pregabalin continued Depression/anxiety Sertraline continued DVT prophylaxis: SCD ordered. Charges/Coding Multi Select Codes Visit Charges Observation E&M Codin Initial observation care L3
--- NOTE | 2021-03-30 02:19 | EKG12_ITS ---
Test Reason : Blood Pressure : / mmHG Vent. Rate : 074 BPM Atrial Rate : 074 BPM P-R Int : 160 ms QRS Dur : 108 ms QT Int : 446 ms P-R-T Axes : 047 138 135 degrees QTc Int : 495 ms Normal sinus rhythm Left posterior fascicular block Inferior infarct , age undetermined Abnormal ECG When compared with ECG of 30-MAR-2021 05:43, MANUAL COMPARISON REQUIRED, DATA IS UNCONFIRMED Confirmed by ASIYA FERREIRA, MINNIE ([id number]), science editor GENARO JIMENEZ ([id number]) on 04/04/2021 9:32:42 AM Referred By: ARNIE Confirmed By:MINNIE BRADEN MD
[2021-03-30] MEDS: 0.9% Normal Saline 1,000 ML 75 ML IV ×2 (03:02→16:48)
[2021-03-30] MEDS: Metoprolol Tartrate 50 MG Tablet 150 MG PO ×3 (03:02→21:25)
[2021-03-30 03:26] LABS: Absolute Lymphocyte Count 1.09 X10^3/uL (0.83-4.51); Absolute Neutrophil Count 2.3 X10^3/uL (2.0-7.7); Basophil# 0.02 X10^3/uL; Basophil% 0.5 % (0-1); Eosinophil# 0.01 X10^3/uL; Eosinophils% 0.2 % (0-5); Hematocrit 48.3 % (40-54); Hemoglobin 16.7 g/dL (13.0-16.5); Lymphocyte # 1.09 X10^3/ul (0.83-4.51); Lymphocyte % 26.9 % (19-41); Mean Corp Hgb Conc 34.6 g/dL (32-36); Mean Corpuscular Volume 83.9 fL (80-94); Mean Platelet Vol. 9.5 fl (6.2-12.0); Monocyte# 0.59 X10^3/uL; Monocyte% 14.6 % (0-10); NRBC Flagged by Analyzer 0 % (0-5); Neutrophil # 2.33 X10^3/uL (2.7-7.7); Neutrophil % 57.6 % (47-70); Platelet Count 171 K/mm3 (150-450); RBC Distribution Width CV 12.2 % (11.6-14.6); RBC Distribution Width SD 36.4 fl (35.1-43.9); Red Blood Count 5.76 M/mm3 (4.6-6.2); White Blood Count 4.1 K/mm3 (4.4-11.0)
[2021-03-30 03:49] LABS: Troponin-I HS 169 pg/mL (3.0-78.0)
[2021-03-30 03:56] LABS: Anion Gap 9 (5-15); BUN 21 mg/dL (7-18); BUN/Creat Ratio 18.4 RATIO (10-20); Calcium,Total 8.7 mg/dL (8.5-10.1); Chloride 98 mmol/L (98-107); Cholesterol 98 mg/dL (200); Creatinine, Serum 1.14 mg/dL (0.70-1.30); EST Glomerular Filtration Rate 69 mL/min (>60); Est Glom Filt Rate - Afr Amer 83 mL/min (>60); Glucose 227 mg/dL (74-106); High Density Lipoprotein 29 mg/dL; Lipase 274 U/L (73-393); Potassium 3.6 mmol/L (3.5-5.1); Sodium Level 133 mmol/L (136-145); Triglycerides 134 mg/dL; Very Low Density Lipoprotein 27 mg/dL (5-40)
[2021-03-30] MEDS: Lisinopril 20 MG Tablet PO (08:33)
[2021-03-30] MEDS: Sertraline 50 MG Tablet 150 MG PO (08:33)
[2021-03-30] MEDS: Pregabalin 50 MG Capsule 100 MG PO ×2 (08:34→21:25)
[2021-03-30] MEDS: Cholecalciferol (VIT D3) 25 MCG TABLET (1,000 UNITS) PO (08:34)
[2021-03-30] MEDS: Insulin Lispro 100 UNIT/ML INSULN.PEN 50 UNIT SC ×2 (08:35→12:49)
[2021-03-30] MEDS: amLODIPine 10 MG Tablet PO (08:35)
[2021-03-30] MEDS: Omega-3 Acid Ethyl Esters 1 GM Capsule PO ×2 (08:35→21:26)
[2021-03-30] MEDS: Enoxaparin 30 MG/0.3 ML Syringe SC (08:35)
[2021-03-30] MEDS: Calcium (Elemental) 500 MG Tablet PO ×2 (08:35→21:26)
[2021-03-30] MEDS: Aspirin 81 MG TAB.CHEW PO (08:35)
[2021-03-30] MEDS: Insulin Lispro 100 UNIT/ML INSULN.PEN SC ×3 (08:36→21:27)
[2021-03-30] MEDS: Modafinil 200 MG Tablet PO (08:42)
[2021-03-30 08:51] LABS: Bedside Glucose 331 mg/dL (70-110)
--- NOTE | 2021-03-30 10:07 | CON.PCM.CA_ITS ---
Documented by User: Zeynep VIRK, PA 03/30/21 15:18 Assessment & Plan Assessment/Plan (1) Elevated troponin: (2) Hypertensive urgency: (3) COVID-19 virus infection: PLAN: * Pt does have elevated troponin, this could be demand ischemia from his elevated BP. Will obtain echo. Based on findings will decide further treatment. He does have active COVID infection this will also decide how to pursue cardiac care if he will require additional procedures besides aggressive medical management. * with his elevated troponin will start on Plavix. Discussed heparin drip, however with him being COVID + and that he is stable he will do further cardiac testing on OP basis. * will attempt to obtain [facility] cardiac medical records * Will continue with Norvasc, atorvastatin, ASA, metoprolol, Lisinopril HPI Consult Data Date of Consult: 03/30/21 HPI Narrative HPI Narrative: OPAL CRUZ, is a 66 M who presented to [facility] ER for elevated BP readings of 180/100. He notes that he was diagnosed with COVID earlier this week. he does have a cardiac HX of HTN, CAD, HL. High sensitivity troponin was noted to be 147/140/169. Pt had stopped his BP medications a few days prior to being seen this was d/t not feeling well. He notes that he he started with covid symptoms on Friday. Prior to this he was hospital stay he did not have cardiac symptoms. [facility]LY [facility] Medical History (Updated 03/30/21 @ 02:54 by Valerie Corona) Anxiety Chest pain Chronic pain Coronary artery disease CPAP (continuous positive airway pressure) dependence Depression Diabetes Former smoker GERD (gastroesophageal reflux disease) GI bleed Hearing loss, left Hearing loss, right Hypertension Hypothyroidism Migraines Myocardial infarct Osteoporosis Sleep apnea Vision loss of right eye Home Medications amlodipine 10 mg PO DAILY 10/05/16 [History Last Taken 08/14/19] insulin aspart U-100 [Novolog Flexpen U-100 Insulin] 50 units SUBCUT TID 10/05/16 [History Last Taken 08/14/19] lisinopril [Prinivil] 20 mg PO DAILY 10/05/16 [History Last Taken 08/14/19] metformin 1,000 mg PO DAILY 10/05/16 [History Last Taken 08/14/19] metoprolol tartrate 150 mg PO BID 10/05/16 [History Last Taken 08/14/19] nortriptyline 20 mg PO DAILY 10/05/16 [History Last Taken 08/14/19] Fish Oil 1,000 mg PO BID 08/17/17 [History Last Taken 08/14/19] Lantus U-100 Insulin 100 unit SQ BID 08/17/17 [History Last Taken 08/14/19] Victoza 2-Adan 1.8 mg SQ DAILY 08/17/17 [History Last Taken 08/14/19] calcium carbonate 500 mg PO BID 08/17/17 [History Last Taken 08/14/19] cholecalciferol (vitamin D3) [Vitamin D3] 1,000 unit PO DAILY 08/17/17 [History Last Taken 08/14/19] pregabalin 100 mg PO BID 08/17/17 [History Last Taken 08/14/19] buspirone 10 mg PO QHS 06/17/19 [History Last Taken 08/14/19] modafinil 200 mg PO DAILY 06/17/19 [History Last Taken 08/14/19] sertraline 150 mg PO DAILY 06/17/19 [History Last Taken 08/14/19] aspirin 81 mg PO DAILY@0800 08/17/19 [History Last Taken Unknown] atorvastatin 40 mg PO QHS 08/17/19 [History Last Taken 08/14/19] tamsulosin 0.4 mg PO DAILY 03/30/21 [History Last Taken Unknown] Allergy/AdvReac Type Severity Reaction Status Date / Time No Known Allergies Allergy Verified 03/29/21 22:21 Family History (Updated 03/30/21 @ 02:54 by Valerie Corona) Mother Diabetes Father Heart disease CVA (cerebral vascular accident) Surgical History History of back surgery History of cholecystectomy Social History household members: spouse and children housing: apartment current occupational status: disabled Smoking Status: Former smoker Tobacco: How many years used: 30 diet: diabetic what type of physical activity do you participate in: walking ROS Constitutional Constitutional: Reports systems reviewed and no addt'l complaints, except as documented Eyes Eyes: Reports systems reviewed and no addt'l complaints, except as documented ENT HEENT: Reports systems reviewed and no addt'l complaints, except as documented Cardiovascular Cardiovascular: Reports systems reviewed and no addt'l complaints, except as documented Respiratory/Chest Respiratory/Chest: Reports systems reviewed and no addt'l complaints, except as documented Gastrointestinal Gastrointestinal: Reports systems reviewed and no addt'l complaints, except as documented Genitourinary Genitourinary: Reports systems reviewed and no addt'l complaints, except as documented Musculoskeletal Musculoskeletal: Reports systems reviewed and no addt'l complaints, except as documented Physical Exam Const alert, oriented x3, no apparent distress, average body habitus, no limitations and healthy appearing HEENT normocephalic, head/scalp atraumatic, hearing grossly normal bilaterally, external ears normal, nasal mucous membranes and turbinates normal and moist oral mucous membranes Eyes PERRL, EOMs intact bilaterally, conjunctivae normal and no scleral icterus Neck full ROM, nuchal rigidity, no lymphadenopathy and supple Chest inspection of chest normal Resp normal respiratory effort, normal air movement, no retractions, no use of acce ssory muscles and clear to auscultation bilaterally Cardio regular rate, regular rhythm, S1 normal heart sound, S2 normal heart sound, no murmurs, no rub, no gallops, no clicks and no JVD GI normal to inspection, nondistended, normoactive bowel sounds, soft to palpation, non-tender and non-distended Extremity Peripheral Pulses: Yes posterior tibial pulses present bilateral diminished Neuro oriented x3, CN's II-XII intact bilaterally and moves all extremities Charges/Coding Visit Charges Office Visits / Consults: [id number] IP Consult L4 Objective Data Vital Signs: Vital Signs Temp Pulse Resp BP Pulse Ox 100.1 F H 76 16 162/83 H 95 03/30/21 06:06 03/30/21 08:34 03/30/21 06:06 03/30/21 06:06 03/30/21 06:06 Oxygen Delivery Method Room Air Weight: 182 lb 15.739 oz Body Mass Index (BMI) 29.5 Intake & Output: Intake and Output for Last 24 Hours 03/28/21 03/29/21 03/30/21 23:59 23:59 23:59 Intake Total 500 / 500 240 / 240 Balance 500 / 500 240 / 240 Lab / Micro Data Result Diagrams: 03/30/21 03:07 03/30/21 03:07 Labs: Laboratory Results - last 24 hr 03/29/21 20:33: Procalcitonin 0.07 03/29/21 20:33: WBC 4.8, RBC 5.67, Hgb 16.7 H, Hct 47.5, MCV 83.8, MCH 29.5, MCHC 35.2, RDW Std Deviation 36.1, RDW Coeff of Eben 12.0, Plt Count 165, MPV 9.3, Immature Gran % (Auto) 0.200, Neut % (Auto) 65.4, Lymph % (Auto) 17.0 L, [place] % (Auto) 17.0 H, Eos % (Auto) 0.0, Baso % (Auto) 0.4, Absolute Neuts (auto) 3.1, Absolute Lymphs (auto) 0.81 L, Nucleated RBC % 0 03/29/21 20:33: Sodium 133 L, Potassium 3.5, Chloride 97 L, Carbon Dioxide 27.0, Anion Gap 9, BUN 21 H, Creatinine 1.28, Estim Creat Clear Calc 51.92, Est GFR (MDRD) Af Amer 73, Est GFR (MDRD) Non-Af 60, BUN/Creatinine Ratio 16.4, Glucose 250 H, Calcium 8.8, Total Bilirubin 0.90, AST 41 H, ALT 55, Alkaline Phosphatase 115, Troponin I High Sens 147 H*, Total Protein 8.2, Albumin 3.4, Globulin 4.8 H , Albumin/Globulin Ratio 0.7 L, Lipase 853 H 03/29/21 20:33: D-Dimer Quant (PE/DVT) 0.69 H* 03/29/21 23:50: Troponin I High Sens 140 H* 03/30/21 03:07: WBC 4.1 L, RBC 5.76, Hgb 16.7 H, Hct 48.3, MCV 83.9, MCH 29.0, MCHC 34.6, RDW Std Deviation 36.4, RDW Coeff of Eben 12.2, Plt Count 171, MPV 9.5, Immature Gran % (Auto) 0.200, Neut % (Auto) 57.6, Lymph % (Auto) 26.9, [place] % (Auto) 14.6 H, Eos % (Auto) 0.2, Baso % (Auto) 0.5, Absolute Neuts (auto) 2.3, Absolute Lymphs (auto) 1.09, Nucleated RBC % 0 03/30/21 03:07: Sodium 133 L, Potassium 3.6, Chloride 98, Carbon Dioxide 26.0, Anion Gap 9, BUN 21 H, Creatinine 1.14, Estim Creat Clear Calc 58.30, Est GFR (MDRD) Af Amer 83, Est GFR (MDRD) Non-Af 69, BUN/Creatinine Ratio 18.4, Glucose 227 H, Calcium 8.7, Triglycerides 134, Cholesterol 98, LDL Cholesterol 42, VLDL Cholesterol 27, HDL Cholesterol 29 L, Lipase 274 03/30/21 03:07: Troponin I High Sens 169 H* 03/30/21 08:32: POC Glucose 331 H Micro: Microbiology 03/29/21 20:05 Nasal Secretion SARS-CoV-2 Antigen (Rapid) - Final SARS-CoV-2 (COVID 19) Cardiology Labs/Tests 03/29/21 20:33: WBC 4.8, RBC 5.67, Hgb 16.7 H, Hct 47.5, MCV 83.8, MCH 29.5, MCHC 35.2, Plt Count 165, MPV 9.3, Immature Gran % (Auto) 0.200, Neut % (Auto) 65.4, Lymph % (Auto) 17.0 L, [place] % (Auto) 17.0 H, Eos % (Auto) 0.0, Baso % (Auto) 0.4, Absolute Neuts (auto) 3.1, Nucleated RBC % 0 03/29/21 20:33: Sodium 133 L, Potassium 3.5, Chloride 97 L, Carbon Dioxide 27.0, Anion Gap 9, BUN 21 H, Creatinine 1.28, Est GFR (MDRD) Af Amer 73, Est GFR (MDRD) Non-Af 60, BUN/Creatinine Ratio 16.4, Glucose 250 H, Calcium 8.8, Total Bilirubin 0.90 03/29/21 20:33: D-Dimer Quant (PE/DVT) 0.69 H* 03/30/21 03:07: WBC 4.1 L, RBC 5.76, Hgb 16.7 H, Hct 48.3, MCV 83.9, MCH 29.0, MCHC 34.6, Plt Count 171, MPV 9.5, Immature Gran % (Auto) 0.200, Neut % (Auto) 57.6, Lymph % (Auto) 26.9, [place] % (Auto) 14.6 H, Eos % (Auto) 0.2, Baso % (Auto) 0.5, Absolute Neuts (auto) 2.3, Nucleated RBC % 0 03/30/21 03:07: Sodium 133 L, Potassium 3.6, Chloride 98, Carbon Dioxide 26.0, Anion Gap 9, BUN 21 H, Creatinine 1.14, Est GFR (MDRD) Af Amer 83, Est GFR (MDRD) Non-Af 69, BUN/Creatinine Ratio 18.4, Glucose 227 H, Calcium 8.7, Triglycerides 134, Cholesterol 98, LDL Cholesterol 42, VLDL Cholesterol 27, HDL Cholesterol 29 L Rhythm: EKG: ECHO: 2018: No evidence for diastolic dysfunction. Normal LV size. Left ventricular systolic function is normal. The estimated ejection fraction is 60 %. Stress Test: 2018 Pharmacologic myocardial perfusion stress test. 62-year-old man with a history of syncope. Stress protocol: Resting EKG demonstrated normal sinus rhythm with rate of 87 bpm. Resting blood pressure is 130/88 mmHg. The patient exercised according to the regular Elvis protocol for total duration of 3 minutes attaining 69% of the maximum predicted heart rate and a workload of 4.9 metabolic equivalents. The patient was noted to have shortness of breath and with failure to obtain the exercise goal it was switched to a pharmacologic stress test. 0.4 mg regadenoson was infused per usual protocol followed by rapid intravenous saline flush injection continuous EKG monitoring was performed. At rest there were no ST or T-wave changes noted suggest abnormal flow reserve at peak infusion no ST or T-wave changes were noted suggest abnormal flow reserve. The resting blood pressure was with a final blood pressure 132/80 mmHg. Myocardial perfusion protocol. 11.6 mCi of technetium 99m sestamibi was injected at rest. 0.4 mg regadenoson was infused per usual protocol. At peak infusion 33.9 mCi of technetium 99m sestamibi was injected. Stress images were obtained. Stress and rest images were reconstructed and compared in the short axis vertical long and horizontal long axis. Gated images were also obtained. Perfusion SPECT analysis. Review of the stress images demonstrated normal uptake of tracer noted in all areas of the myocardium. The resting images similarly demonstrated normal uptake of tracer in all areas of the myocardium. There is significant GI and diaphragmatic attenuation artifact noted. No obvious reversibility is noted and no previous infarct is noted. Gated SPECT analysis. Gated ejection fraction is 56%. Conclusion: Normal pharmacologic myocardial perfusion stress test. Normal ejection fraction. Radiography Diagnostic Testing: Radiology Impression Chest X-Ray 03/29/21 20:42 IMPRESSION: No acute cardiopulmonary disease or interval change. Electronically Signed: Jamaal Smalls DO at 21:23 EDT Tel [phone], Service support , Chest CTA 03/29/21 22:51 IMPRESSION: Normal CTA chest examination, without a demonstrated pulmonary embolism or arterial dissection. Electronically Signed: Jamaal Smalls DO at 23:47 EDT Tel [phone], Service support , Documented by User: Dr. 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 Patient establish as an outpatient and follow-up with the cardiology team at [facility]. HPI Consult Data Date of Consult: 03/30/21 [facility] Medical History (Updated 03/30/21 @ 02:54 by Valerie Corona) Anxiety Chest pain Chronic pain Coronary artery disease CPAP (continuous positive airway pressure) dependence Depression Diabetes Former smoker GERD (gastroesophageal reflux disease) GI bleed Hearing loss, left Hearing loss, right Hypertension Hypothyroidism Migraines Myocardial infarct Osteoporosis Sleep apnea Vision loss of right eye Home Medications amlodipine 10 mg PO DAILY 10/05/16 [History Last Taken 08/14/19] insulin aspart U-100 [Novolog Flexpen U-100 Insulin] 50 units SUBCUT TID 10/05/16 [History Last Taken 08/14/19] lisinopril [Prinivil] 20 mg PO DAILY 10/05/16 [History Last Taken 08/14/19] metformin 1,000 mg PO DAILY 10/05/16 [History Last Taken 08/14/19] metoprolol tartrate 150 mg PO BID 10/05/16 [History Last Taken 08/14/19] nortriptyline 20 mg PO DAILY 10/05/16 [History Last Taken 08/14/19] Fish Oil 1,000 mg PO BID 08/17/17 [History Last Taken 08/14/19] Lantus U-100 Insulin 100 unit SQ BID 08/17/17 [History Last Taken 08/14/19] Victoza 2-Adan 1.8 mg SQ DAILY 08/17/17 [History Last Taken 08/14/19] calcium carbonate 500 mg PO BID 08/17/17 [History Last Taken 08/14/19] cholecalciferol (vitamin D3) [Vitamin D3] 1,000 unit PO DAILY 08/17/17 [History Last Taken 08/14/19] pregabalin 100 mg PO BID 08/17/17 [History Last Taken 08/14/19] buspirone 10 mg PO QHS 06/17/19 [History Last Taken 08/14/19] modafinil 200 mg PO DAILY 06/17/19 [History Last Taken 08/14/19] sertraline 150 mg PO DAILY 06/17/19 [History Last Taken 08/14/19] aspirin 81 mg PO DAILY@0800 08/17/19 [History Last Taken Unknown] atorvastatin 40 mg PO QHS 08/17/19 [History Last Taken 08/14/19] tamsulosin 0.4 mg PO DAILY 10/15/21 [History Last Taken Unknown] Allergy/AdvReac Type Severity Reaction Status Date / Time No Known Allergies Allergy Verified 03/29/21 22:21 Family History (Updated 03/30/21 @ 02:54 by Valerie Corona) Mother Diabetes Father Heart disease CVA (cerebral vascular accident) Surgical History History of back surgery History of cholecystectomy Social History household members: spouse and children housing: apartment current occupational status: disabled Smoking Status: Former smoker Tobacco: How many years used: 30 diet: diabetic what type of physical activity do you participate in: walking Lab / Micro Data Result Diagrams: 03/30/21 03:07 03/30/21 03:07
--- NOTE | 2021-03-30 12:55 | ECHOD_ITS ---
Reason For Study: NSTEMI Procedure This was a 2D Doppler, Color Flow transthoracic echocardiogram. Exam performed portable in patient room. The exam was abbreviated due to the COVID 19 protocol. Left Ventricle Normal left ventricle. The estimated ejection fraction is EF 55-60 %. Right Ventricle Normal right ventricle. Normal systolic function. Atria Normal left atrium. Normal right atrium. Mitral Valve The mitral valve is structurally normal. No prolapse or stenosis seen. Mild (1+) mitral valve insufficiency. Tricuspid Valve Normal tricuspid valve. Trivial tricuspid valve insufficiency. Aortic Valve Normal aortic valve. Pulmonic Valve The pulmonic valve is not well visualized. Great Vessels Normal aortic root. Pericardium/Pleural No pericardial effusion. MMode/2D Measurements & Calculations LVIDd: 4.9 cm IVSd: 1.5 cm LA dimension: 3.5 cm LVIDs: 3.0 cm LVPWd: 1.3 cm FS: 38.7 % LAV(MOD-bp): 41.2 ml LA A4 area: 14.9 cm2 RA A4 area: 10.1 cm2 LAV(MOD-bp) Indexed: 21.4 ml/m2 LAV(MOD-sp2): 46.1 ml LAV(MOD-sp4): 35.8 ml ECHO/Echo Complete Interpretation Summary The estimated ejection fraction is EF 55-60 %. Normal LV systolic functhion Ordering Physician: Zeynep Blackman Referring Physician: [place] Performed By: Gilles Aleman RCS
[2021-03-30 13:19] LABS: Bedside Glucose 187 mg/dL (70-110)
--- NOTE | 2021-03-30 13:43 | PCM.PN.HOSP ---
Subjective Subjective Patient seen and examined at bedside. He reports no issues in the interim. He is chronically on 2 L via nasal cannula. He reports having intermittent palpitations and weird sensations within his chest, he denies shortness of breath or chest pain. Objective Data Objective Data Vital Signs: Vital Signs Temp Pulse Resp BP Pulse Ox 99.5 F H 76 18 140/77 H 95 03/30/21 12:46 03/30/21 12:46 03/30/21 12:46 03/30/21 12:46 03/30/21 12:46 Oxygen Delivery Method Room Air Weight: 83 kg Body Mass Index (BMI) 29.5 Intake & Output: Intake and Output for Last 24 Hours 03/28/21 03/29/21 03/30/21 23:59 23:59 23:59 Intake Total 500 / 500 680 / 680 Balance 500 / 500 680 / 680 Lab / Micro Data Result Diagrams: 03/30/21 03:07 03/30/21 03:07 Labs: Laboratory Results - last 24 hr 03/29/21 20:33: Procalcitonin 0.07 03/29/21 20:33: WBC 4.8, RBC 5.67, Hgb 16.7 H, Hct 47.5, MCV 83.8, MCH 29.5, MCHC 35.2, RDW Std Deviation 36.1, RDW Coeff of Eben 12.0, Plt Count 165, MPV 9.3, Immature Gran % (Auto) 0.200, Neut % (Auto) 65.4, Lymph % (Auto) 17.0 L, [place] % (Auto) 17.0 H, Eos % (Auto) 0.0, Baso % (Auto) 0.4, Absolute Neuts (auto) 3.1, Absolute Lymphs (auto) 0.81 L, Nucleated RBC % 0 03/29/21 20:33: Sodium 133 L, Potassium 3.5, Chloride 97 L, Carbon Dioxide 27.0, Anion Gap 9, BUN 21 H, Creatinine 1.28, Estim Creat Clear Calc 51.92, Est GFR (MDRD) Af Amer 73, Est GFR (MDRD) Non-Af 60, BUN/Creatinine Ratio 16.4, Glucose 250 H, Calcium 8.8, Total Bilirubin 0.90, AST 41 H, ALT 55, Alkaline Phosphatase 115, Troponin I High Sens 147 H*, Total Protein 8.2, Albumin 3.4, Globulin 4.8 H, Albumin/Globulin Ratio 0.7 L, Lipase 853 H 03/29/21 20:33: D-Dimer Quant (PE/DVT) 0.69 H* 03/29/21 23:50: Troponin I High Sens 140 H* 03/30/21 03:07: WBC 4.1 L, RBC 5.76, Hgb 16.7 H, Hct 48.3, MCV 83.9, MCH 29.0, MCHC 34.6, RDW Std Deviation 36.4, RDW Coeff of Been 12.2, Plt Count 171, MPV 9.5, Immature Gran % (Auto) 0.200, Neut % (Auto) 57.6, Lymph % (Auto) 26.9, [place] % (Auto) 14.6 H, Eos % (Auto) 0.2, Baso % (Auto) 0.5, Absolute Neuts (auto) 2.3, Absolute Lymphs (auto) 1.09, Nucleated RBC % 0 03/30/21 03:07: Sodium 133 L, Potassium 3.6, Chloride 98, Carbon Dioxide 26.0, Anion Gap 9, BUN 21 H, Creatinine 1.14, Estim Creat Clear Calc 58.30, Est GFR (MDRD) Af Amer 83, Est GFR (MDRD) Non-Af 69, BUN/Creatinine Ratio 18.4, Glucose 227 H, Calcium 8.7, Triglycerides 134, Cholesterol 98, LDL Cholesterol 42, VLDL Cholesterol 27, HDL Cholesterol 29 L, Lipase 274 03/30/21 03:07: Troponin I High Sens 169 H* 03/30/21 08:32: POC Glucose 331 H 03/30/21 12:42: POC Glucose 187 H Micro: Microbiology 03/29/21 20:05 Nasal Secretion SARS-CoV-2 Antigen (Rapid) - Final SARS-CoV-2 (COVID 19) Radiography Diagnostic Testing: Radiology Impression Chest X-Ray 03/29/21 20:42 IMPRESSION: No acute cardiopulmonary disease or interval change. Electronically Signed: Jamaal Smalls DO at 21:23 EDT Tel [phone], Service support , Chest CTA 03/29/21 22:51 IMPRESSION: Normal CTA chest examination, without a demonstrated pulmonary embolism or arterial dissection. Electronically Signed: Jamaal Smalls DO at 23:47 EDT Tel [phone], Service support , Physical Exam Narrative Physical exam: General: Well-nourished, well-developed. Head: Normocephalic, atraumatic, no tenderness Eyes: PERRLA, EOMI ENT, no trauma, moist mucous membranes, no rhinorrhea Neck: Nontender, full range of motion, no spinal tenderness, deformities, step-off CVS: Regular rate and rhythm. S1-S2 present. No murmur, gallop or rub. Respiratory : clear to auscultation bilaterally, chest wall nontender, no wheezing Abdomen: Soft, nontender, nondistended, normal bowel sounds, no masses : Deferred Back: Nontender, no CVA tenderness, no midline spinal tenderness, deformities, step-offs Extremities: Nontender full range of motion, no trauma Skin: Normal color, no trauma, abrasions Neuro: Alert, oriented, cranial nerves II through XII grossly intact. Psychiatry: Normal mood. Normal affect. Not depressed. Not anxious. Const oriented x3 and no apparent distress General Appearance: cooperative, comfortable, well kempt and well developed Orientation / Consciousness: awake, oriented to person, oriented to place and oriented to time Exam Limitations: no limitations Nutritional Appearance: obese HEENT normocephalic, head/scalp atraumatic, hearing grossly normal bilaterally and oropharynx normal Eyes PERRL and EOMs intact bilaterally Neck General: normal visual inspection and trachea midline Lymph Lymphatic: no lymphadenopathy noted Chest inspection of chest normal and palpation of chest normal Resp normal respiratory effort and normal air movement Auscultation: clear to auscultation bilaterally Cardio regular rate, regular rhythm, S1 normal heart sound, S2 normal heart sound, no murmurs, no rub and no gallops GI normal to inspection, nondistended, normoactive bowel sounds Extremity normal to inspection, normal capillary refill and no pedal edema Peripheral Pulses: Yes pulses 2+ throughout Skin no rashes or lesions noted General Skin Exam: no breakdown Neuro oriented x3, CN's II-XII intact bilaterally and moves all extremities Psych mental status grossly normal Assessment & Plan Assessment/Plan (1) Elevated troponin: (2) Hypertensive urgency: (3) COVID-19 virus infection: PLAN: 03/30/21: Cardiology placed on consult, recommended starting patient on heparin drip due to troponin trending up to 169, cardiac echo pending. #Hypertension urgency #Elevated troponin Etiology from not taking home blood pressure medication Highest systolic blood pressure of 180. Received labetalol at the emergency department. Home blood pressure medication continued Trend blood pressure and adjust blood pressure medications. High sensitive troponin at the ED initially was 140. Repeat was 147. up to 169. Received aspirin 324 mg at emergency department. Continue daily aspirin and daily high intensity Lipitor. cardiology placed on consult Echocardiogram pending Cardiology recommended patient be started on Heparin GTT #Elevated lipase His lipase is mildly elevated at 853. trended down Review of records on 08/17/2019 his lipase was 440. Patient with no nausea or vomiting, no epigastric pain Gentle IV hydration. We will not overload patient with IV fluids in the setting of COVID-19 infection. Patient is status post cholecystectomy. #COVID-19 virus infection D-dimer was 0.69. CTA negative for PE Patient is not hypoxic. Clinical monitoring. #Diabetes mellitus with complications of neuropathy Patient with hyperglycemia presented Home basal insulin and prandial insulin continued. Accu-Chek with correction scale insulin ordered. Hold Metformin and Victoza. Pregabalin continued #Depression/anxiety Sertraline continued #DVT prophylaxis: Heparin GTT Charges/Coding Visit Charges OBSV E&M: 84796 Subsequent observation care L3
--- NOTE | 2021-03-30 16:21 | EKG12_ITS ---
Test Reason : PRE-OP Blood Pressure : / mmHG Vent. Rate : 081 BPM Atrial Rate : 081 BPM P-R Int : 176 ms QRS Dur : 104 ms QT Int : 428 ms P-R-T Axes : 045 263 147 degrees QTc Int : 497 ms Normal sinus rhythm T wave abnormality, consider anterolateral ischemia Prolonged QT Abnormal ECG When compared with ECG of 29-MAR-2021 20:16, MANUAL COMPARISON REQUIRED, DATA IS UNCONFIRMED Confirmed by ASIYA FERREIRA, MINNIE ([id number]), society editor GENARO JIMENEZ ([id number]) on 04/04/2021 9:51:10 AM Referred By: SERVANDO Confirmed By:MINNIE BRADEN MD
[2021-03-30] MEDS: Heparin Injection (Vial) 5,000 UNIT/ML VIAL 5000 UNIT SC ×2 (16:50→21:26)
[2021-03-30 17:01] LABS: Bedside Glucose 80 mg/dL (70-110)
[2021-03-30] MEDS: Acetaminophen 325 MG Tablet 650 MG PO (17:19)
[2021-03-30] MEDS: 0.9% Saline Lock 10 ML Syringe IV (17:20)
[2021-03-30] MEDS: Nortriptyline 10 MG Capsule 20 MG PO (21:25)
[2021-03-30] MEDS: Atorvastatin Calcium 40 MG Tablet PO (21:26)
[2021-03-30] MEDS: busPIRone 5 MG Tablet 10 MG PO (21:26)
[2021-03-30 22:01] LABS: Bedside Glucose 264 mg/dL (70-110)
[2021-03-31] VITALS (10 sets, daily range): BP systolic 142–179; BP diastolic 79–99; PULSE 76–84; RESP 16–18; TEMP 37.8–38.2; O2SAT 94–98
[2021-03-31] MEDS: hydrALAZINE 20 MG/ML Vial 10 MG IV (04:11)
[2021-03-31] MEDS: 0.9% Normal Saline 1,000 ML 75 ML IV (04:11)
[2021-03-31] MEDS: Acetaminophen 325 MG Tablet 650 MG PO (04:11)
[2021-03-31] MEDS: 0.9% Saline Lock 10 ML Syringe IV (04:12)
[2021-03-31] MEDS: Benzonatate 100 MG Capsule PO (04:12)
[2021-03-31 07:42] LABS: Absolute Lymphocyte Count 1.28 X10^3/uL (0.83-4.51); Basophil# 0.02 X10^3/uL; Basophil% 0.3 % (0-1); Eosinophil# 0.03 X10^3/uL; Eosinophils% 0.5 % (0-5); Hematocrit 41.5 % (40-54); Hemoglobin 14.6 g/dL (13.0-16.5); Lymphocyte # 1.28 X10^3/ul (0.83-4.51); Lymphocyte % 21.4 % (19-41); Mean Corp Hgb Conc 35.2 g/dL (32-36); Mean Corpuscular Hgb 29.4 pg (27.0-32.0); Mean Corpuscular Volume 83.5 fL (80-94); Mean Platelet Vol. 9.3 fl (6.2-12.0); NRBC Flagged by Analyzer 0 % (0-5); Neutrophil # 4.04 X10^3/uL (2.7-7.7); Neutrophil % 67.5 % (47-70); Platelet Count 173 K/mm3 (150-450); RBC Distribution Width CV 12.1 % (11.6-14.6); RBC Distribution Width SD 36.6 fl (35.1-43.9); Red Blood Count 4.97 M/mm3 (4.6-6.2)
[2021-03-31 08:13] LABS: Anion Gap 8 (5-15); BUN 17 mg/dL (7-18); BUN/Creat Ratio 20.9 RATIO (10-20); Calcium,Total 8.5 mg/dL (8.5-10.1); Chloride 104 mmol/L (98-107); Creatinine, Serum 0.82 mg/dL (0.70-1.30); EST Glomerular Filtration Rate 101 mL/min (>60); Est Glom Filt Rate - Afr Amer 122 mL/min (>60); Estimated Creatinine Clearance 81.05 ml/min; Glucose 58 mg/dL (74-106); Potassium 3.4 mmol/L (3.5-5.1); Sodium Level 139 mmol/L (136-145); Troponin-I HS 144 pg/mL (3.0-78.0)
[2021-03-31] MEDS: Pregabalin 50 MG Capsule 100 MG PO (08:56)
[2021-03-31] MEDS: Metoprolol Tartrate 50 MG Tablet 150 MG PO (08:56)
[2021-03-31] MEDS: Modafinil 200 MG Tablet PO (08:57)
[2021-03-31] MEDS: Calcium (Elemental) 500 MG Tablet PO (08:57)
[2021-03-31] MEDS: Sertraline 50 MG Tablet 150 MG PO (08:58)
[2021-03-31] MEDS: Omega-3 Acid Ethyl Esters 1 GM Capsule PO (08:59)
[2021-03-31] MEDS: Aspirin 81 MG TAB.CHEW PO (08:59)
[2021-03-31] MEDS: amLODIPine 10 MG Tablet PO (08:59)
[2021-03-31] MEDS: Heparin Injection (Vial) 5,000 UNIT/ML VIAL 5000 UNIT SC (09:00)
[2021-03-31] MEDS: Clopidogrel Bisulfate 75 MG Tablet PO (09:01)
[2021-03-31] MEDS: Cholecalciferol (VIT D3) 25 MCG TABLET (1,000 UNITS) PO (09:02)
[2021-03-31] MEDS: Lisinopril 20 MG Tablet PO (09:15)
[2021-03-31 09:31] LABS: Bedside Glucose 101 mg/dL (70-110)
[2021-03-31 09:31] LABS: Bedside Glucose 57 mg/dL (70-110)
--- NOTE | 2021-03-31 12:46 | PCM.DC ---
Discharge Instructions Diet Discharge Diet: 1800 Calorie Control Diet Activity Discharge Activity: Return to Normal Activity Weight Bearing Status: Full weight bearing Follow Up Care Test Results: Test results from this visit will be discussed in further detail at your follow-up appointment, if applicable. Discharge Plan Admission Admit Date/Time: 03/30/21 00:52 Primary Reason for Your Visit: NSTEMI Attending Provider: Stevenson Rodriguez Primary Care Provider: [facility] Consulting Providers: Tank Ibanez ; Anant Artis ; Kt Trivedi ; Simone Perez ; Tito Moreno ; Michelle Conde ; Parveen Barrios ; Selwyn Yañez ; Adilson Gavin ; Shade Palmer ; Irwin Hull NP ; Aurora Vega NP ; Zeynep Blackman PA Instructions Additional Instructions / Restrictions: Quarantine for 10 days after onset of COVID symptoms Call [phone] if you are not contacted by Friday of this week to get the outpatient antibody infusion Discharge Orders/Prescriptions Prescriptions: New clopidogrel 75 mg Tablet 75 mg PO DAILY Qty: 30 RF: 0 Continued metoprolol tartrate 100 MG tablet 150 mg PO BID RF: 0 amlodipine 5 MG tablet 10 mg PO DAILY RF: 0 nortriptyline 10 MG capsule 20 mg PO DAILY RF: 0 metformin 1,000 MG tablet 1,000 mg PO DAILY RF: 0 lisinopril [Prinivil] 10 MG tablet 20 mg PO DAILY RF: 0 pregabalin 25 MG capsule 100 mg PO BID RF: 0 calcium carbonate 500 MG tablet 500 mg PO BID RF: 0 Fish Oil 1 EACH capsule 1,000 mg PO BID RF: 0 cholecalciferol (vitamin D3) [Vitamin D3] 1,000 UNIT tablet 1,000 unit PO DAILY RF: 0 Victoza 2-Adan 0.6 MG/0.1 ML pen injector 1.8 mg SQ DAILY RF: 0 sertraline 100 MG tablet 150 mg PO DAILY RF: 0 modafinil 200 MG tablet 200 mg PO DAILY RF: 0 buspirone 10 MG tablet 10 mg PO QHS RF: 0 atorvastatin 10 MG tablet 40 mg PO QHS RF: 0 aspirin 81 MG tablet,chewable 81 mg PO DAILY@0800 RF: 0 tamsulosin 0.4 mg Capsule 0.4 mg PO DAILY RF: 0 Discontinued insulin aspart U-100 [Novolog Flexpen U-100 Insulin] 100 UNITS/ML insulin pen 50 units subcut TID RF: 0 Lantus U-100 Insulin 100 UNIT/ML solution 100 unit SQ BID RF: 0 Referrals / Follow Up: Zeynep Blackman PA [PHYSICIAN HAND WOVEN CARPET AND RUG MENDER] - 05/01/21 3:30 pm [facility]Primary [facility] - Within 2 Weeks Disposition Disposition (needs filled in before D/C Order can be placed): Home, Self Care
--- NOTE | 2021-03-31 13:00 | CASEMGMT ---
TRE RODRIGUEZ Assessment: Face to Face with pt for initial transition planning/care coordination assessment. TRE RODRIGUEZ introduced self and role at [facility], pt voices understanding and consents to assessment. Pt is A/O x4 and answers all questions appropriately at this time. Pt lying in bed in no distress on RA. Care providers, pharmacy, and demographics verified/updated. Admitting Dx: COVID 19 infection, elevated troponin PCP:Pt is unsure of the name of his PCP at the [facility]. He states he goes to all branches of the [facility] depending on which physician he goes to. Specialists:Olivier, for rx; pt has a imaging manager but unsure of the name. Preferred Pharmacy: [facility] Insurance: [facility] benefit, [employer] Prescription Benefit: yes, through [facility] LW/HPOA: Pt states he has a LW/DPOA and his DPOA is his son Colt Rodrigues. LNOK: Colt Rodrigues, son; Viji Rodrigues, Living Arrangements: Pt lives with and stepson in a single story house with no steps to enter. Pt reports being I in ADL's and denies concerns at home. Transportation: Pt states he is able to drive but has not been because he has cataracts that are getting worse. Pt states his stepson transports him to medical appts. DME/HHC/SNF: Pt has a BP machine, pulse ox, BGM with all supplies and also insulin. [facility] During the assessment Dr. Rodriguez came in to pt room to discuss insulin. He is planning on not having pt take insulin as he is on a high dosage. Pt aware to follow up on this. Pt has previously had HHC through the [facility] and denies hx of SNF stays. Pt states no concerns with going home at time of dc. Pt states no further concerns/needs. CM to follow. Advised pt to ask CM if any further question/concerns/needs arise, voices understanding. Pt Goal: Home Plan: Home TRE RODRIGUEZ in to discuss CALLE form with patient. TRE RODRIGUEZ explained CALLE form, patient voiced understanding. Pt signed form and filed in chart. Pt provided with a copy of signed CALLE form. Patient had no further questions or concerns at this time.
[2021-03-31 13:05] LABS: Bedside Glucose 117 mg/dL (70-110)
--- NOTE | 2021-03-31 18:47 | PCM.DC.SUM ---
Providers Date of Admission: 03/30/21 Date of Discharge: 03/31/21 Primary Care Physician: [facility] Consultations 03/30/21 08:25 Consult: Cardiology Routine Consulting Provider: Katt Escalera Reason for Consult: elevated troponin EMERGENT Consult: No MD Notified: Yes Date Notified: 03/30/21 Time Notified: 08:25 Method of Notification: Text Reason For Visit: COVID 19 INFECTION, ELEVATED TROPONIN Diagnosis Discharge Diagnosis (1) Elevated troponin: Status: Acute Code(s): R77.8 - Other specified abnormalities of plasma proteins (2) Hypertensive urgency: Status: Acute Code(s): I16.0 - Hypertensive urgency (3) COVID-19 virus infection: Status: Acute Code(s): U07.1 - COVID-19 (4) Essential (primary) hypertension: Status: Chronic Code(s): I10 - Essential (primary) hypertension (5) DM2 (diabetes mellitus, type 2): Status: Chronic Code(s): E11.9 - Type 2 diabetes mellitus without complications Qualifiers: Diabetes mellitus complication status: without complication Diabetes mellitus fdc insulin use: with rat exterminator use Qualified Code(s): E11.9 - Type 2 diabetes mellitus without complications; Z79.4 - ferry terminal supervisor (current) use of insulin Plan: Final diagnosis: #1 elevated troponin-not a non-STEMI #2 uncontrolled hypertension #3 COVID-19 infection without pneumonia #4 type 2 diabetes #5 diabetic neuropathy #6 coronary artery disease Medications at Discharge Home Medications amlodipine 10 mg PO DAILY 10/05/16 lisinopril [Prinivil] 20 mg PO DAILY 10/05/16 metformin 1,000 mg PO DAILY 10/05/16 metoprolol tartrate 150 mg PO BID 10/05/16 nortriptyline 20 mg PO DAILY 10/05/16 Fish Oil 1,000 mg PO BID 08/17/17 Victoza 2-Adan 1.8 mg SQ DAILY 08/17/17 calcium carbonate 500 mg PO BID 08/17/17 cholecalciferol (vitamin D3) [Vitamin D3] 1,000 unit PO DAILY 08/17/17 pregabalin 100 mg PO BID 08/17/17 buspirone 10 mg PO QHS 06/17/19 modafinil 200 mg PO DAILY 06/17/19 sertraline 150 mg PO DAILY 06/17/19 aspirin 81 mg PO DAILY@0800 08/17/19 atorvastatin 40 mg PO QHS 08/17/19 tamsulosin 0.4 mg PO DAILY 03/30/21 clopidogrel 75 mg PO DAILY #30 tab 03/31/21 Hospital Course Operations None Procedures 2-D Echocardiogram Summary of Care Provided Minutes Spent on Discharge: 30 Hospital Course: 66-year-old white male was seen in the emergency room at [facility] with complaints of elevated blood pressure, he had been diagnosed with COVID-19 2 days prior, work-up in the emergency room included labs which showed a normal creatinine, normal white blood cell count, an EKG was performed which showed a tachycardia without ischemic changes, chest x-ray showed no acute process, CTA of the chest was performed which showed no evidence of PE dissection or other acute process. Patient had an elevated troponin. Patient's blood pressure was elevated at 164/103. Patient was placed in observation status on PCU, he had an echocardiogram performed shows normal ejection fraction was seen by cardiology, cardiology adjusted his medications. On 04/01/2021, patient was seen and examined: On examination he appeared in good health and spirits. Vital signs as documented. Skin warm and dry and without overt rashes. Neck without JVD, neck was supple, trachea midline, thyroid was normal. Lungs clear bilaterally, normal air movement was noted. Heart exam notable for regular rhythm, normal sounds and absence of murmurs, rubs or gallops. Abdomen unremarkable and without evidence of organomegaly, masses, or abdominal aortic enlargement. Bowel sounds are present, abdomen is not distended. Extremities nonedematous, no cyanosis was noted, no clubbing was noted. Neuro: Cranial nerves II through XII are grossly intact, no focal motor deficits were noted, sensation to light touch and pinprick intact, motor exam 5/5 throughout. Psych: Patient is alert and oriented x3, he does not appear anxious or depressed, he does not appear agitated. On 04/01/2021, patient was felt to be stable for discharge home. Weight / BMI Weight Weight: 83 kg Body Mass Index (BMI) 29.5 ABG / Lab / Microbiology Data Result Diagrams: 03/31/21 07:18 03/31/21 07:18 Laboratory: Laboratory Results - last 24 hr 03/30/21 21:20: POC Glucose 264 H 03/31/21 07:18: WBC 6.0, RBC 4.97, Hgb 14.6, Hct 41.5, MCV 83.5, MCH 29.4, MCHC 35.2, RDW Std Deviation 36.6, RDW Coeff of Eben 12.1, Plt Count 173, MPV 9.3, Immature Gran % (Auto) 0.300, Neut % (Auto) 67.5, Lymph % (Auto) 21.4, [place] % (Auto) 10.0, Eos % (Auto) 0.5, Baso % (Auto) 0.3, Absolute Neuts (auto) 4.0, Absolute Lymphs (auto) 1.28, Nucleated RBC % 0 03/31/21 07:18: Sodium 139, Potassium 3.4 L, Chloride 104, Carbon Dioxide 27.0, Anion Gap 8, BUN 17, Creatinine 0.82, Estim Creat Clear Calc 81.05, Est GFR (MDRD) Af Amer 122, Est GFR (MDRD) Non-Af 101, BUN/Creatinine Ratio 20.9 H, Glucose 58 L, Calcium 8.5, Troponin I High Sens 144 H* 03/31/21 08:51: POC Glucose 57 L 03/31/21 09:18: POC Glucose 101 03/31/21 12:13: POC Glucose 117 H Microbiology: Microbiology 03/29/21 20:05 Nasal Secretion SARS-CoV-2 Antigen (Rapid) - Final SARS-CoV-2 (COVID 19) D/C Instructions Discharge Diet: 1800 Calorie Control Diet Weight Bearing Status: Full weight bearing Meaningful Use Info Meaningful Use Diagnoses (Choose all that apply): None applicable Discharge Plan Admission Admit Date/Time: 03/30/21 00:52 Primary Reason for Your Visit: NSTEMI Attending Provider: Stevenson Rodriguez Primary Care Provider: [facility] Consulting Providers: Tank Ibanez ; Anant Artis ; Kt Trivedi ; Simone Perez ; Tito Moreno ; Michelle Conde ; Parveen Barrios ; Selwyn Yañez ; Adilson Gavin ; Shade Palmer ; Irwin Hull YOKER ; Aurora Vega YOKER ; Zeynep Blackman PA Instructions Additional Instructions / Restrictions: Quarantine for 10 days after onset of COVID symptoms Call [phone] if you are not contacted by Friday of this week to get the outpatient antibody infusion Discharge Orders/Prescriptions Prescriptions: New clopidogrel 75 mg Tablet 75 mg PO DAILY Qty: 30 RF: 0 Continued metoprolol tartrate 100 MG tablet 150 mg PO BID RF: 0 amlodipine 5 MG tablet 10 mg PO DAILY RF: 0 nortriptyline 10 MG capsule 20 mg PO DAILY RF: 0 metformin 1,000 MG tablet 1,000 mg PO DAILY RF: 0 lisinopril [Prinivil] 10 MG tablet 20 mg PO DAILY RF: 0 pregabalin 25 MG capsule 100 mg PO BID RF: 0 calcium carbonate 500 MG tablet 500 mg PO BID RF: 0 Fish Oil 1 EACH capsule 1,000 mg PO BID RF: 0 cholecalciferol (vitamin D3) [Vitamin D3] 1,000 UNIT tablet 1,000 unit PO DAILY RF: 0 Victoza 2-Adan 0.6 MG/0.1 ML pen injector 1.8 mg SQ DAILY RF: 0 sertraline 100 MG tablet 150 mg PO DAILY RF: 0 modafinil 200 MG tablet 200 mg PO DAILY RF: 0 buspirone 10 MG tablet 10 mg PO QHS RF: 0 atorvastatin 10 MG tablet 40 mg PO QHS RF: 0 aspirin 81 MG tablet,chewable 81 mg PO DAILY@0800 RF: 0 tamsulosin 0.4 mg Capsule 0.4 mg PO DAILY RF: 0 Discontinued insulin aspart U-100 [Novolog Flexpen U-100 Insulin] 100 UNITS/ML insulin pen 50 units subcut TID RF: 0 Lantus U-100 Insulin 100 UNIT/ML solution 100 unit SQ BID RF: 0 Referrals / Follow Up: Zeynep Blackman PA [PHYSICIAN SPRING MANUFACTURING SET UP TECHNICIAN] - 05/01/21 3:30 pm [facility] [Primary Care Provider] - Within 2 Weeks Disposition Disposition (needs filled in before D/C Order can be placed): Home, Self Care Charges/Coding Visit Charges OBSV E&M: 91119 Observation care discharge
== END 2021-03-31 14:38 | disposition home or self-care (01) ==
LOC: ED 23:50 → PCU 03-30 01:15
PROVIDERS: Internal Medicine; Admitting Provider Hospitalist; Emergency Provider Student in an Organized Health Care Education/Training Program; Visit Provider Internal Medicine
DX: U07.1 COVID-19 (principal); I16.0 Hypertensive urgency; I10 Essential (primary) hypertension; I25.2 Old myocardial infarction; E11.40 Type 2 diabetes mellitus with diabetic neuropathy, unspecified; G47.33 Obstructive sleep apnea (adult) (pediatric); E11.65 Type 2 diabetes mellitus with hyperglycemia; E78.5 Hyperlipidemia, unspecified; F32.A Depression, unspecified; F41.9 Anxiety disorder, unspecified; H91.93 Unspecified hearing loss, bilateral; K21.9 Gastro-esophageal reflux disease without esophagitis; I25.10 Atherosclerotic heart disease of native coronary artery without angina pectoris; Z79.899 Other long term (current) drug therapy; Z79.4 Long term (current) use of insulin; Z79.82 Long term (current) use of aspirin; Z87.891 Personal history of nicotine dependence; Z28.3 Underimmunization status
CPT/HCPCS: 36415; 71045; 71275; 80048; 80053; 80061; 82962; 83690; 84145; 84484; 85025; 85379; 85730; 87040; 87426; 93005; 93306; 96361; 96372; 96374; 96375; 99218; 99285; 99406; J7030; J7040; Q9967; A4216; G0378

== ENCOUNTER 2021-04-04 00:24 | Inpatient (IN) | payer OTHER, MEDICARE, SELFPAY ==
[2021-04-04] VITALS (17 sets, daily range): BP systolic 101–168; BP diastolic 56–89; PULSE 76–118; RESP 15–28; TEMP 36.8–38.8; O2SAT 91–95; BMI 29.5
--- NOTE | 2021-04-04 02:51 | RAD_ITS ---
STUDY: X-RAY CHEST REASON FOR EXAM: Male, 66 years old. COVID +, SOB TECHNIQUE: Portable, upright, AP chest radiograph COMPARISON: 03/29/2021 FINDINGS: Scattered streaky opacities in both mid to lower lungs. There is no demonstrated pleural abnormality. Normal size heart. Normal mediastinum and orin. Normal visualized pulmonary arteries. There is atherosclerotic calcification of the aortic arch with tortuosity. There is no demonstrated abnormality of the visualized soft tissue structures of the upper abdomen. RAD/Chest 1 View (Portable) IMPRESSION: Findings suggest developing multifocal pneumonia. Electronically Signed: Adilson Lezama MD at 3:43 EDT Tel , Service support ,
[2021-04-04] MEDS: Acetaminophen 500 MG Tablet 1000 MG PO (03:03)
[2021-04-04 03:28] LABS: Absolute Lymphocyte Count 0.61 X10^3/uL (0.83-4.51); Absolute Neutrophil Count 2.8 X10^3/uL (2.0-7.7); Basophil# 0.01 X10^3/uL; Basophil% 0.3 % (0-1); Hematocrit 41.9 % (40-54); Hemoglobin 15.1 g/dL (13.0-16.5); Lymphocyte # 0.61 X10^3/ul (0.83-4.51); Lymphocyte % 16.5 % (19-41); Mean Corpuscular Hgb 29.1 pg (27.0-32.0); Mean Corpuscular Volume 80.7 fL (80-94); Mean Platelet Vol. 9.6 fl (6.2-12.0); Monocyte# 0.27 X10^3/uL; Monocyte% 7.3 % (0-10); NRBC Flagged by Analyzer 0 % (0-5); Neutrophil # 2.79 X10^3/uL (2.7-7.7); Neutrophil % 75.6 % (47-70); Platelet Count 160 K/mm3 (150-450); RBC Distribution Width CV 11.7 % (11.6-14.6); RBC Distribution Width SD 34.2 fl (35.1-43.9); Red Blood Count 5.19 M/mm3 (4.6-6.2); White Blood Count 3.7 K/mm3 (4.4-11.0)
[2021-04-04 03:40] LABS: ALB/GLOB Ratio 0.5 RATIO (0.9-2.4); AST(SGOT) 47 U/L (15-37); Alanine Aminotransfer ALT/SGPT 35 U/L (16-61); Albumin, Serum 2.5 g/dL (3.2-5.0); Alkaline Phosphatase 91 U/L (45-117); Anion Gap 11 (5-15); BUN 29 mg/dL (7-18); BUN/Creat Ratio 27.4 RATIO (10-20); Calcium,Total 8.1 mg/dL (8.5-10.1); Chloride 94 mmol/L (98-107); Creatinine, Serum 1.06 mg/dL (0.70-1.30); EST Glomerular Filtration Rate 75 mL/min (>60); Est Glom Filt Rate - Afr Amer 90 mL/min (>60); Globulin 4.6 g/dL (2.2-4.2); Glucose 316 mg/dL (74-106); Potassium 3.3 mmol/L (3.5-5.1); Protein, Total 7.1 g/dL (6.4-8.2); Sodium Level 131 mmol/L (136-145)
[2021-04-04 03:48] LABS: Lactic Acid 1.9 mmol/L (0.4-1.9)
--- NOTE | 2021-04-04 04:19 | ED.RN ---
PT DID NOT TOLERATE THE WALK TEST. THIS RN ASSISTED HIM BY HOLDING ONE ARM. PT TOOK TWO STEPS AND HIS HR WENT TO 125 BPM, SPO2 86% ON RA AND PT BECAME VERY DIZZY, ALMOST FALLING. MADE AWARE OF WALK TEST RESULTS
--- NOTE | 2021-04-04 04:26 | PCM.HP.STD ---
HPI - General General Date of Admission: 04/04/21 Date of Service: 04/04/21 Chief Complaint: COVID +, worsening dyspnea. HPI Narrative The patient is a 66 y/o M w/ PMHx: CAD, HTN, HLD, Anxiety and Depression, Diabetes mellitus type II w/ neuropathy, SEBASTIAN, BPH, Hypothyroidism, Chronic pain syndrome, 03/30/21 admitted with COVID positive status initially testing positive per discussions on 03/27/2021 following onset of symptoms same day with immediate testing as his grandson had recently been tested positive with Covid, elevated trop at that time but per records reportedly not an NSTEMI with hypertensive urgency discharged on Plavix at that time who now represents to the [facility] ED on 04/04/21 with history of worsening Covid type symptoms including fever, chills, headache, sore throat, decreased sense of taste and smell and progressively worsening fatigue, malaise, cough and dyspnea prompting repeat evaluation. Work-up in the ED included T 99.5, heart rate 118, BP 136/89, respiratory rate up to 27, 91% on room air at rest however patient with exertions became hypoxic with oxygenation 87% with lightheadedness and dizziness, CBC with WBC 3.7, hemoglobin 15.1, platelet 160 with lymphopenia, CMP with sodium 131, potassium 3.3, chloride 94, BUN/creatinine 29/1.06, glucose 316, lactic acid 1.8, not marked appearing hepatic profile, chest x-ray with developing multifocal pneumonia. In ED patient ministered Tylenol as well as albuterol per ED physician. Patient is not vaccinated against COVID-19. [facility] Medical History (Updated 04/04/21 @ 05:[address] Naomi Starks MD) Anxiety Chest pain Chronic pain Coronary artery disease CPAP (continuous positive airway pressure) dependence Depression Diabetes Former smoker GERD (gastroesophageal reflux disease) GI bleed Hearing loss, left Hearing loss, right Hypertension Hypothyroidism Migraines Myocardial infarct Osteoporosis Sleep apnea Vision loss of right eye Home Medications amlodipine 10 mg PO DAILY 10/05/16 [History Last Taken 08/14/19] lisinopril [Prinivil] 20 mg PO DAILY 10/05/16 [History Last Taken 08/14/19] metformin 1,000 mg PO DAILY 10/05/16 [History Last Taken 08/14/19] metoprolol tartrate 150 mg PO BID 10/05/16 [History Last Taken 08/14/19] nortriptyline 20 mg PO DAILY 10/05/16 [History Last Taken 08/14/19] Fish Oil 1,000 mg PO BID 08/17/17 [History Last Taken 08/14/19] Victoza 2-Adan 1.8 mg SQ DAILY 08/17/17 [History Last Taken 08/14/19] calcium carbonate 500 mg PO BID 08/17/17 [History Last Taken 08/14/19] cholecalciferol (vitamin D3) [Vitamin D3] 1,000 unit PO DAILY 08/17/17 [History Last Taken 08/14/19] pregabalin 100 mg PO BID 08/17/17 [History Last Taken 08/14/19] buspirone 10 mg PO QHS 06/17/19 [History Last Taken 08/14/19] modafinil 200 mg PO DAILY 06/17/19 [History Last Taken 08/14/19] sertraline 150 mg PO DAILY 06/17/19 [History Last Taken 08/14/19] aspirin 81 mg PO DAILY@0800 08/17/19 [History Last Taken Unknown] atorvastatin 40 mg PO QHS 08/17/19 [History Last Taken 08/14/19] tamsulosin 0.4 mg PO DAILY 03/30/21 [History Last Taken Unknown] clopidogrel 75 mg PO DAILY #30 tab 03/31/21 [Rx Last Taken Unknown] Allergy/AdvReac Type Severity Reaction Status Date / Time No Known Allergies Allergy Verified 04/04/21 00:25 Family History (Updated 03/30/21 @ 02:54 by Valerie Corona) Mother Diabetes Father Heart disease CVA (cerebral vascular accident) Surgical History History of back surgery History of cholecystectomy Social History household members: spouse and children housing: apartment current occupational status: disabled Smoking Status: Former smoker Tobacco: How many years used: 30 diet: diabetic what type of physical activity do you participate in: walking ROS ROS Narrative Admission Review of Systems: CONSTITUTIONAL: No weight loss, + fever, chills, weakness or fatigue. HEENT: + STANTON, sore throat, decreased taste/smell. Eyes: No visual loss, blurred vision, double vision or yellow sclerae. Ears, Nose, Throat: No hearing loss, sneezing. SKIN: No rash or itching, lesions, wounds. CARDIOVASCULAR: No chest pain, chest pressure or chest discomfort, palpitations, edema, orthopnea, syncopal events. RESPIRATORY: + shortness of breath, cough, No marked sputum, wheezing, hemoptysis. GASTROINTESTINAL: + anorexia, No nausea, vomiting or diarrhea, abdominal pain, melena, BRBPR. GENITOURINARY: No dysuria, frequency, urgency or retention. NEUROLOGICAL: No headache, dizziness, syncope, paralysis, ataxia, numbness or tingling in the extremities, focal weakness, change in bowel or bladder control, seizure. MUSCULOSKELETAL: + muscle, back pain, joint pain or stiffness. HEMATOLOGIC: No anemia, bleeding or bruising. LYMPHATICS: No enlarged nodes. No history of splenectomy. PSYCHIATRIC: + history of depression or anxiety. ENDOCRINOLOGIC: No reports of sweating, cold or heat intolerance. No polyuria or polydipsia. ALLERGIES: No history of asthma, hives, eczema or rhinitis. Vital Signs Vital Signs Vital Signs: 04/04/21 00:26 04/04/21 01:25 04/04/21 03:06 Temperature 98.2 F 99.5 F H Temperature Source Temporal Oral Pulse Rate 118 H 118 H Respiratory Rate 15 22 H Respiratory Effort Normal Respiratory Depth Normal Respiratory Pattern Normal Blood Pressure 157/84 H 136/89 H Blood Pressure Mean 108 104 Pulse Ox 94 91 Oxygen Delivery Method Room Air Room Air 04/04/21 03:07 Temperature 99.5 F H Temperature Source Oral Pulse Rate 116 H Respiratory Rate 27 H Respiratory Effort Respiratory Depth Respiratory Pattern Blood Pressure 136/89 H Blood Pressure Mean 104 Pulse Ox 91 Oxygen Delivery Method Room Air Weight Weight: 183 lb Body Mass Index (BMI) 29.5 Physical Exam Narrative Physical Examination: General: Awake, alert, oriented x 3 and cooperative, seated upright in the ED bed, fatigued and ill-appearing. Skin: Normal color, normal turgor, no icterus, no cyanosis. HEENT: AT/NC, EOMI, PERRLA, mildly dry MM, no carotid bruits or JVD noted. Lungs: Diffusely diminished, greater bases, increased respiratory rate, no rales, ronchi or wheezing. Heart: Mildly tachycardic with regular rhythm; no gallop, rub audible. Abdomen: Soft, NTTP, ND, normal BS, no HSM. Extremities: No cyanosis, clubbing, or edema. Neurological: Patient awake, alert, oriented as noted, cognitive function intact; pupils equally reactive to light and accommodation, cranial nerves II-XII grossly normal, moving all 4 extremities, no focal deficits, strength severely global decrease secondary to acute presentation. Psychiatric: Affect appears fatigued, ill-appearing, no acute evidence of depressive or anxiety feelings. Results Lab / Micro Data Result Diagrams: 04/04/21 03:04 04/04/21 03:04 Labs: Laboratory Results - last 24 hr 04/04/21 03:04: WBC 3.7 L, RBC 5.19, Hgb 15.1, Hct 41.9, MCV 80.7, MCH 29.1, MCHC 36.0, RDW Std Deviation 34.2 L, RDW Coeff of Eben 11.7, Plt Count 160, MPV 9.6, Immature Gran % (Auto) 0.300, Neut % (Auto) 75.6 H, Lymph % (Auto) 16.5 L, [place] % (Auto) 7.3, Eos % (Auto) 0.0, Baso % (Auto) 0.3, Absolute Neuts (auto) 2.8, Absolute Lymphs (auto) 0.61 L, Nucleated RBC % 0 04/04/21 03:04: Sodium 131 L, Potassium 3.3 L, Chloride 94 L, Carbon Dioxide 26.0, Anion Gap 11, BUN 29 H, Creatinine 1.06, Estim Creat Clear Calc 62.70, Est GFR (MDRD) Af Amer 90, Est GFR (MDRD) Non-Af 75, BUN/Creatinine Ratio 27.4 H, Glucose 316 H, Calcium 8.1 L, Total Bilirubin 0.60, AST 47 H, ALT 35, Alkaline Phosphatase 91, Total Protein 7.1, Albumin 2.5 L, Globulin 4.6 H, Albumin/Globulin Ratio 0.5 L 04/04/21 03:04: Lactic Acid 1.9 Radiology Impression Chest X-Ray 04/04/21 02:51 IMPRESSION: Findings suggest developing multifocal pneumonia. Electronically Signed: Adilson Lezama MD at 3:43 EDT Tel , Service support , Assessment & Plan Assessment/Plan (1) Pneumonia due to COVID-19 virus: (2) Hypoxia: PLAN: The patient is a 66 y/o M w/ PMHx: CAD, HTN, HLD, Anxiety and Depression, Diabetes mellitus type II w/ neuropathy, SEBASTIAN, BPH, Hypothyroidism, Chronic pain syndrome, 03/30/21 admitted with COVID positive status initially testing positive per discussions on 03/27/2021 following onset of symptoms same day with immediate testing as his grandson had recently been tested positive with Covid, elevated trop at that time but per records reportedly not an NSTEMI with hypertensive urgency discharged on Plavix at that time who now represents to the [facility] ED on 04/04/21 with history of worsening Covid type symptoms including cough and dyspnea prompting repeat evaluation. 1. Acute Hypoxia secondary to Acute Bilateral Pneumonia secondary to Acute Viral Syndrome, COVID-19: Will admit to [facility] telemetry, maintain on COVID precautions, will need to extend patient quarantine given hypoxia presentation, will maintain on oxygen with wean as tolerated to room air, PRN albuterol, HOB, IS parameters w/ pending sputum cultures, respiratory viral panel and urine antigens, will obtain D-dimer, procalcitonin, CRP, CPK, Ferritin, LDH, trop and BNP, continue supportive care including q 2 hour turning including prone given no prone bed availability and judicious hydration, closely monitor for worsening status for ARDS and multiorgan failure, will initiate and continue IV decadron x 10 doses, given presentation will also initiate IV remdesivir but defer to discretion of Infectious disease. 2. Hypokalemia: Admission K+ 3.3, magnesium level requested, supplementation given, repeat level in AM. 3. CAD with recent troponin elevations: We will continue patient recently initiated Plavix, aspirin, statin, metoprolol, lisinopril regimen being clarified. Troponin x1 requested especially given recent presentation with mild elevation per review of records with last 03/31/2021 144 and up to 169 on 03/30/2021. Patient denies any chest discomfort and EKGs with sinus rhythm with no acute evidence of ischemia. 4. Hypertension: Continue home regimen including amlodipine, metoprolol, lisinopril being clarified, PRN hydralazine. 5. Hyperlipidemia: Continue home statin regimen. 6. Anxiety and depression: We will continue patient home BuSpar and sertraline regimen. 7. Diabetes mellitus type II with neuropathy: Hold oral home regimen, continue home insulin regimen, ADA diet, accu checks w/ ISS, continue patient home pregabalin regimen. 8. Hypothyroidism: Reported history, per current list not on regimen, TSH and free T4 requested. 9. SEBASTIAN: CPAP nightly. 10. BPH: We will continue patient home Flomax regimen. 11. DVT prophylaxis: SCDs, Lovenox. 12. CODE status: Given Covid pneumonia with hypoxia presentation, discussed CODE status at length including difference between FULL code, DNR-CCA and DNR-CC status. Following discussions about the differences in these status, requested Full Code status. Amenable to airvo and BIPAP usage if needed. Advanced Care Planning Face to Face Time: 16 minutes. Charges/Coding Visit Charges Inpatient E&M: 73380 Init Hosp L3 Procedures Hospitalists Procedures: 42032 Advncd Care Plan 30 Min
[2021-04-04 05:30] LABS: Ferritin 699 ng/mL (26-388); LDH 338 U/L (87-241); Magnesium 1.9 mg/dL (1.6-2.6); Troponin-I HS 128 pg/mL (3.0-78.0)
[2021-04-04 05:32] LABS: D-Dimer Quantitative (DVT/PE) 1.47 FEU/ug/m (0.27-0.49)
--- NOTE | 2021-04-04 05:45 | CT_ITS ---
STUDY: CTA CHEST REASON FOR EXAM: Male, 66 years old. Suspect pulmonary embolus RADIATION DOSAGE (If Supplied By Facility): CTDIvol = ( 10.81 ) mGy, DLP = ( 438.61 ) mGycm TECHNIQUE: The examination was performed with the intravenous administration of IV 100mL Isovue-370. Post-processing of the angiographic images was performed, with multiplanar reformation and 3D reconstruction. Individualized dose optimization techniques were used for this CT. COMPARISON: None. FINDINGS: Normal enhancement of the main pulmonary artery and right and left pulmonary arteries. Normal enhancement of the bilateral peripheral pulmonary arteries. There is no demonstrated pulmonary embolism. Normal thoracic aorta and visualized great vessels. There is no demonstrated aortic dissection. Normal heart and pericardium. Normal mediastinum. Normal hilar regions. Normal visualized trachea and bronchi. Diffuse bronchiectasis. The lungs are well expanded. Groundglass and consolidative opacities scattered throughout both lungs. Normal pleura. Normal chest wall structures. There are degenerative changes of thoracic spine. Normal visualized upper abdomen. CT/CTA Chest W/WO Contrast IMPRESSION: Multifocal pneumonia with bronchiectasis. Normal CTA chest examination, without a demonstrated pulmonary embolism or arterial dissection. Electronically Signed: Adilson Lezama MD at 7:17 EDT Tel , Service support ,
--- NOTE | 2021-04-04 05:50 | PCS.PANDOC ---
PANDEMIC DOCUMENTATION INITIATED: Date: 01/29/2021 Time: 190
--- NOTE | 2021-04-04 05:58 | PCS.PANDOC ---
PANDEMIC DOCUMENTATION INITIATED: Date: 04/04/2021 Time: 514
--- NOTE | 2021-04-04 06:22 | EDS_ITS ---
HPI History of Present Illness Chief Complaint: Shortness of Breath Informant: patient Onset/Context/Timing Onset: Weeks (1) Context: gradual Timing: Continuous Quality: Positive for Dyspnea on exertion Worsened by: Nothing Relieved by: Nothing Associated Symptoms cough, rhinorrhea, fever, sore throat and yellow sputum; Negative for post nasal drip, ear pain, chills, sweats, clear sputum, white sputum or green sputum Chest Pain: Positive for None Narrative Narrative: Patient presents with shortness of breath that has been getting worse over the past week. Patient was recently admitted for COVID-19 and elevated troponin. Patient was discharged home. Patient states that he feels like his breathing is heavy. Patient states nothing makes it worse and nothing makes it better. Patient admits to cough with some yellow sputum production. Patient also admits to some rhinorrhea and a sore throat. Patient states he had a fever of 101 at home. Patient denies any chest pain. [facility] Medical History Anxiety Chest pain Chronic pain Coronary artery disease CPAP (continuous positive airway pressure) dependence Depression Diabetes Former smoker GERD (gastroesophageal reflux disease) GI bleed Hearing loss, left Hearing loss, right Hypertension Hypothyroidism Migraines Myocardial infarct Osteoporosis Sleep apnea Vision loss of right eye Home Medications amlodipine 10 mg PO DAILY 10/05/16 [History Last Taken 04/03/21 22:00] lisinopril [Prinivil] 20 mg PO DAILY 10/05/16 [History Last Taken 04/03/21 08:00] metformin 1,000 mg PO DAILY 10/05/16 [History Last Taken 04/03/21 08:00] metoprolol tartrate 150 mg PO BID 10/05/16 [History Last Taken 04/03/21 08:00] nortriptyline 20 mg PO DAILY 10/05/16 [History Last Taken 04/03/21 08:00] Fish Oil 1,000 mg PO BID 08/17/17 [History Last Taken 04/03/21 08:00] Victoza 2-Adan 1.8 mg SQ DAILY 08/17/17 [History Last Taken 04/03/21 14:00] calcium carbonate 500 mg PO BID 08/17/17 [History Last Taken 04/03/21 08:00] cholecalciferol (vitamin D3) [Vitamin D3] 1,000 unit PO DAILY 08/17/17 [History Last Taken 04/03/21 08:00] pregabalin 100 mg PO BID 08/17/17 [History Last Taken 04/03/21 08:00] buspirone 10 mg PO QHS 06/17/19 [History Last Taken 04/03/21 22:00] modafinil 200 mg PO DAILY 06/17/19 [History Last Taken 04/03/21 08:00] sertraline 150 mg PO DAILY 06/17/19 [History Last Taken 04/03/21 08:00] aspirin 81 mg PO DAILY@0800 08/17/19 [History Last Taken 04/03/21 08:00] atorvastatin 40 mg PO QHS 08/17/19 [History Last Taken 04/03/21 22:00] tamsulosin 0.4 mg PO DAILY 03/30/21 [History Last Taken 04/03/21 08:00] clopidogrel 75 mg PO DAILY #30 tab 03/31/21 [Rx Last Taken 04/03/21 08:00] Allergy/AdvReac Type Severity Reaction Status Date / Time No Known Allergies Allergy Verified 04/04/21 00:25 Family History (Updated 03/30/21 @ 02:54 by Valerie Corona) Mother Diabetes Father Heart disease CVA (cerebral vascular accident) Surgical History History of back surgery History of cholecystectomy Social History household members: spouse and children housing: apartment current occupational status: disabled Smoking Status: Former smoker Tobacco: How many years used: 30 diet: diabetic what type of physical activity do you participate in: walking ROS ROS ED Constitutional Constitutional ED: Reports chills and fever(s) Eyes Eyes: Denies blurry vision or change in vision ENT ENT ED: Reports rhinorrhea and sore throat Cardiovascular Cardiovascular: Denies chest pain or palpitations Respiratory/Chest Respiratory/Chest: Reports cough and dyspnea Gastrointestinal Gastrointestinal: Denies nausea or vomiting Genitourinary Genitourinary ED: Denies dysuria or hematuria Musculoskeletal Musculoskeletal: Denies back pain or neck pain Integumentary Denies abscess or rash Neurologic Neurologic: Denies headache(s) or weakness Allergic/Immunologic Allergic/Immunologic ED: Denies mouth swelling or urticaria EXAM Physical Exam Const Vital Signs: 04/04/21 00:26 04/04/21 01:25 04/04/21 03:06 Temperature 98.2 F 99.5 F H Temperature Source Temporal Oral Pulse Rate 118 H 118 H Respiratory Rate 15 22 H Respiratory Effort Normal Respiratory Depth Normal Respiratory Pattern Normal Blood Pressure 157/84 H 136/89 H Blood Pressure Mean 108 104 Pulse Ox 94 91 Oxygen Delivery Method Room Air Room Air 04/04/21 03:07 Temperature 99.5 F H Temperature Source Oral Pulse Rate 116 H Respiratory Rate 27 H Respiratory Effort Respiratory Depth Respiratory Pattern Blood Pressure 136/89 H Blood Pressure Mean 104 Pulse Ox 91 Oxygen Delivery Method Room Air Positive well nourished and well developed General Appearance ED: well developed HEENT Reports moist mucous membranes Neck supple and no JVD Resp normal respiratory effort Auscultation: diminished lung sounds bilateral Cardio regular rate, regular rhythm and no murmurs GI normal to inspection, nondistended, normoactive bowel sounds and non-tender Palpation: soft Extremity normal to inspection General Extremety ED: Negative for edema or tenderness General Extremity: Negative for edema Neuro oriented x3, CN's II-XII intact bilaterally and no sensory deficits noted Sensorium / Orientation: alert Motor Exam: strength 5/5 throughout Psych mental status grossly normal Skin no rashes or lesions noted MDM MDM MDM Narrative Medical decision making narrative: Portable chest x-ray was obtained. There is one view. On my interpretation, there are bilateral lower lobe infiltrates. These are consistent with typical COVID-19 infiltrates. There is no cardiomegaly. Bony thorax is normal. Radiologist also interpreted the x-ray and agrees. CBC and comprehensive metabolic profile were obtained and were essentially within normal limits. Glucose was elevated at 316. Anion gap was normal. Lactate was normal. Patient ambulated in the emergency department and his oxygen saturations dropped to 86%. Case was discussed with the hospitalist. She will admit the patient to her service. Patient understood and was agreeable with the plan. All questions were answered. Lab Data Attestation: I reviewed the patient's lab results. Labs: Laboratory Results - last 24 hr 04/04/21 04/04/21 04/04/21 03:04 03:04 03:04 WBC 3.7 L RBC 5.19 Hgb 15.1 Hct 41.9 MCV 80.7 MCH 29.1 MCHC 36.0 RDW Std Deviation 34.2 L RDW Coeff of Eben 11.7 Plt Count 160 MPV 9.6 Immature Gran % (Auto) 0.300 Neut % (Auto) 75.6 H Lymph % (Auto) 16.5 L [place] % (Auto) 7.3 Eos % (Auto) 0.0 Baso % (Auto) 0.3 Absolute Neuts (auto) 2.8 Absolute Lymphs (auto) 0.61 L Nucleated RBC % 0 Sodium 131 L Potassium 3.3 L Chloride 94 L Carbon Dioxide 26.0 Anion Gap 11 BUN 29 H Creatinine 1.06 Estim Creat Clear Calc 62.70 Est GFR (MDRD) Af Amer 90 Est GFR (MDRD) Non-Af 75 BUN/Creatinine Ratio 27.4 H Glucose 316 H Lactic Acid 1.9 Calcium 8.1 L Total Bilirubin 0.60 AST 47 H ALT 35 Alkaline Phosphatase 91 Total Protein 7.1 Albumin 2.5 L Globulin 4.6 H Albumin/Globulin Ratio 0.5 L Radiography Chest X-Ray - ED: 1 View, Read by ED Physician, Read by Radiologist, Right Infiltrate and Left Infiltrate Diagnostic Testing: Clinical Impression(s) from Imaging Studies Chest X-Ray 04/04/21 02:51 IMPRESSION: Findings suggest developing multifocal pneumonia. Electronically Signed: Adilson Lezama MD at 3:43 EDT Tel , Service support , Treatment and Re-Evaluation Vital Sign Attestation:: Vital signs reviewed prior to admission. They are stable. Discharge Plan Triage Chief Complaint: Shortness of Breath ED Provider: Tito Alberto Dx/Rx/DC Orders Clinical Impression: Pneumonia due to COVID-19 virus, Hypoxia [facility] Dis[facility] Disposition: Acute Care Hospital [facility]
[2021-04-04] MEDS: Insulin Lispro 100 UNIT/ML INSULN.PEN SC ×4 (08:34→23:14)
[2021-04-04] MEDS: Potassium Chloride Oral Tablet 20 MEQ 40 MEQ PO (08:34)
[2021-04-04] MEDS: Tamsulosin HCl 0.4 MG Capsule PO (08:35)
[2021-04-04] MEDS: Enoxaparin 30 MG/0.3 ML Syringe SC ×2 (08:35→23:13)
[2021-04-04] MEDS: Metoprolol Tartrate 50 MG Tablet 150 MG PO ×2 (08:35→23:14)
[2021-04-04] MEDS: Sertraline 50 MG Tablet 150 MG PO (08:36)
[2021-04-04] MEDS: Clopidogrel Bisulfate 75 MG Tablet PO (08:36)
[2021-04-04] MEDS: Pregabalin 50 MG Capsule 100 MG PO ×2 (08:36→23:14)
[2021-04-04] MEDS: amLODIPine 10 MG Tablet PO (08:37)
[2021-04-04] MEDS: Aspirin 81 MG TAB.CHEW PO (08:37)
[2021-04-04] MEDS: Lisinopril 20 MG Tablet PO (08:37)
[2021-04-04 09:06] LABS: Bedside Glucose 286 mg/dL (70-110)
[2021-04-04 10:17] LABS: ALB/GLOB Ratio 0.6 RATIO (0.9-2.4); AST(SGOT) 45 U/L (15-37); Alanine Aminotransfer ALT/SGPT 34 U/L (16-61); Albumin, Serum 2.5 g/dL (3.2-5.0); Alkaline Phosphatase 83 U/L (45-117); Anion Gap 9 (5-15); BUN 31 mg/dL (7-18); BUN/Creat Ratio 26.5 RATIO (10-20); Calcium,Total 7.9 mg/dL (8.5-10.1); Chloride 95 mmol/L (98-107); Creatinine, Serum 1.17 mg/dL (0.70-1.30); EST Glomerular Filtration Rate 67 mL/min (>60); Est Glom Filt Rate - Afr Amer 80 mL/min (>60); Globulin 4.4 g/dL (2.2-4.2); Glucose 324 mg/dL (74-106); Potassium 3.1 mmol/L (3.5-5.1); Protein, Total 6.9 g/dL (6.4-8.2); Sodium Level 131 mmol/L (136-145); T4 Free Direct 1.12 ng/dL (0.76-1.46)
[2021-04-04 11:25] LABS: Bedside Glucose 330 mg/dL (70-110)
--- NOTE | 2021-04-04 11:42 | PN.HOSP_ITS ---
Subjective Subjective Patient seen and examined. He was admitted with a complaint of worsening COVID- 19 symptoms. Patient tested positive for Covid on 03/27/2021 was admitted on 03/30/2021 for fever with symptoms. He was discharged on 03/31/2021. However his symptoms have been worsening, with worsening shortness of breath, malaise a nd cough. He is being managed for covid 19 pneumonia HE still feels weak this morning, but denies shortness of breath. He denies cough, chest pain, palpitations, nausea or vomiting. Review of systems otherwise negative. Objective Data Objective Data Vital Signs: Vital Signs Temp Pulse Resp BP Pulse Ox 99.3 F H 99 28 H 168/82 H 91 04/04/21 08:26 04/04/21 08:35 04/04/21 08:26 04/04/21 08:26 04/04/21 08:26 Oxygen Flow Rate (L/min) 1 Oxygen Delivery Method Nasal Cannula Weight: 179 lb 10.828 oz Body Mass Index (BMI) 0.0 Lab / Micro Data Result Diagrams: 04/04/21 03:04 04/04/21 04:52 Labs: Laboratory Results - last 24 hr 04/04/21 03:04: WBC 3.7 L, RBC 5.19, Hgb 15.1, Hct 41.9, MCV 80.7, MCH 29.1, MCHC 36.0, RDW Std Deviation 34.2 L, RDW Coeff of Eben 11.7, Plt Count 160, MPV 9.6, Immature Gran % (Auto) 0.300, Neut % (Auto) 75.6 H, Lymph % (Auto) 16.5 L, [place] % (Auto) 7.3, Eos % (Auto) 0.0, Baso % (Auto) 0.3, Absolute Neuts (auto) 2.8, Absolute Lymphs (auto) 0.61 L, Nucleated RBC % 0 04/04/21 03:04: Sodium 131 L, Potassium 3.3 L, Chloride 94 L, Carbon Dioxide 26.0, Anion Gap 11, BUN 29 H, Creatinine 1.06, Estim Creat Clear Calc 62.70, Est GFR (MDRD) Af Amer 90, Est GFR (MDRD) Non-Af 75, BUN/Creatinine Ratio 27.4 H, Glucose 316 H, Calcium 8.1 L, Total Bilirubin 0.60, AST 47 H, ALT 35, Alkaline Phosphatase 91, Total Protein 7.1, Albumin 2.5 L, Globulin 4.6 H, Albumin /Globulin Ratio 0.5 L 04/04/21 03:04: Lactic Acid 1.9 04/04/21 04:52: D-Dimer Quant (PE/DVT) 1.47 H* 04/04/21 04:52: Magnesium 1.9, Ferritin 699 H, Lactate Dehydrogenase 338 H, Troponin I High Sens 128 H*, C-React Prot Ext Range 77.30 H 04/04/21 04:52: Sodium 131 L, Potassium 3.1 L, Chloride 95 L, Carbon Dioxide 27.0, Anion Gap 9, BUN 31 H, Creatinine 1.17, Estim Creat Clear Calc 56.80, Est GFR (MDRD) Af Amer 80, Est GFR (MDRD) Non-Af 67, BUN/Creatinine Ratio 26.5 H, Glucose 324 H, Calcium 7.9 L, Total Bilirubin 0.70, AST 45 H, ALT 34, Alkaline Phosphatase 83, Total Protein 6.9, Albumin 2.5 L, Globulin 4.4 H, Albumin/Globulin Ratio 0.6 L, TSH 1.10, Free T4 1.12 04/04/21 08:15: POC Glucose 286 H 04/04/21 10:58: POC Glucose 330 H Micro: Microbiology 04/04/21 07:49 Mucosa - Nasopharyngeal Respiratory Panel (PCR) - Final 04/04/21 08:50 Urine, Clean Catch Legionella Antigen - Final 04/04/21 08:50 Urine, Clean Catch Streptococcus pneumoniae Antigen (M - Final Radiography Diagnostic Testing: Radiology Impression Chest X-Ray 04/04/21 02:51 IMPRESSION: Findings suggest developing multifocal pneumonia. Electronically Signed: Adilson Lezama MD at 3:43 EDT Tel , Service support , Chest CTA 04/04/21 05:45 IMPRESSION: Multifocal pneumonia with bronchiectasis. Normal CTA chest examination, without a demonstrated pulmonary embolism or arterial dissection. Electronically Signed: Adilson Lezama MD at 7:17 EDT Tel , Service support , Physical Exam Const alert, oriented x3 and no apparent distress Orientation / Consciousness: lethargic Exam Limitations: no limitations HEENT head/scalp atraumatic and moist oral mucous membranes Head and Scalp: normocephalic Eyes PERRL, EOMs intact bilaterally and conjunctivae normal Neck no lymphadenopathy Resp Resp Narrative: tachypneic, bilateral crackles. No wheezes. now on 1L of oxygen by nasal cannula Cardio regular rate, regular rhythm, S1 normal heart sound, S2 normal heart sound and no murmurs GI normal to inspection, nondistended, normoactive bowel sounds, soft to palpation, non-tender and non-distended Extremity normal to inspection, full ROM and no clubbing, cyanosis or edema Peripheral Pulses: Yes pulses 2+ throughout Skin no rashes or lesions noted Neuro oriented x3, CN's II-XII intact bilaterally and moves all extremities Sensorium / Orientation: awake and alert Psych affect normal Assessment & Plan Assessment/Plan (1) Pneumonia due to COVID-19 virus: (2) Hypoxia: PLAN: #Acute hypoxic respiratory insufficiency due to COVID 19 pneumonia * now on 1L of oxygen * on decadron. On remdesivir * titrate oxygen to maintain sats >90% * breathing treatment with bronchodilators * #Hypokalemia: resolved #CAD * troponin was elevated during recent admission, with a peak of 169. * on aspirin and plavix as well as statin and metoprolol * check 2D echo. * #Hypertension: On amlodipine, metoprolol, lisinopril and IV hydralazine as needed #Hyperlipidemia: On statin #Anxiety and depression: On BuSpar and sertraline #TYpe 2 diabetes melllitus with neuropathy * on Victoza * ISS. Accuchecks ACHS. * on gabapentin * #SEBASTIAN: on CPAP qhs #BPH: on flomax DVT prophylaxis: lovenox 30mg bid Charges/Coding Visit Charges Inpatient E&M: 72040 Subs Hosp L3
[2021-04-04 12:17] LABS: BNP,B-Type NATRIURETIC PEPTIDE 21.7 pg/mL (0-100)
[2021-04-04] MEDS: Modafinil 200 MG Tablet PO (12:17)
[2021-04-04 12:45] LABS: Procalcitonin 0.13 ng/mL (0.00-0.09)
[2021-04-04] MEDS: Acetaminophen 325 MG Tablet 650 MG PO ×2 (14:21→23:24)
--- NOTE | 2021-04-04 16:10 | CASEMGMT ---
Addendum entered by Rae Mejias 04/05/21 11:26: Assessment done prior on 03/31/21. See assessment. Original Note: RN CM in to pt room. Pt dc'd this past weekend with no need for home O2. Pt states should he need O[facility], [facility] RN CM to follow with patient for any dc needs.
[2021-04-04] MEDS: 0.9% Saline Lock 10 ML Syringe IV (17:11)
[2021-04-04 22:05] LABS: Bedside Glucose 244 mg/dL (70-110)
--- NOTE | 2021-04-04 22:06 | NURSING ---
called in for update.
--- NOTE | 2021-04-04 22:19 | NURSING ---
Called respiratory therapy to see if they could take a look at this pt at some point since he went from 5L n/c to 11 L high flow. Hx of sleep apnea as well. Want to make sure we are doing everything we need to do for this pt.
[2021-04-04] MEDS: Atorvastatin Calcium 40 MG Tablet PO (23:14)
[2021-04-04] MEDS: Nortriptyline 10 MG Capsule 20 MG PO (23:36)
[2021-04-04] MEDS: busPIRone 5 MG Tablet 10 MG PO (23:36)
[2021-04-04 23:46] LABS: Bedside Glucose 229 mg/dL (70-110)
[2021-04-05] VITALS (19 sets, daily range): BP systolic 85–121; BP diastolic 44–67; PULSE 66–79; RESP 16–28; TEMP 36.2–38.9; O2SAT 91–96
[2021-04-05] MEDS: Acetaminophen 325 MG Tablet 650 MG PO (03:43)
[2021-04-05] MEDS: Ibuprofen 400 MG Tablet PO (04:32)
[2021-04-05] MEDS: Insulin Lispro 100 UNIT/ML INSULN.PEN SC ×4 (06:25→22:26)
[2021-04-05 06:35] LABS: Bedside Glucose 208 mg/dL (70-110)
[2021-04-05 08:38] LABS: Absolute Lymphocyte Count 0.82 X10^3/uL (0.83-4.51); Absolute Neutrophil Count 5.2 X10^3/uL (2.0-7.7); Basophil# 0.01 X10^3/uL; Basophil% 0.2 % (0-1); Hematocrit 37.5 % (40-54); Hemoglobin 13.4 g/dL (13.0-16.5); Lymphocyte # 0.82 X10^3/ul (0.83-4.51); Lymphocyte % 13.3 % (19-41); Mean Corp Hgb Conc 35.7 g/dL (32-36); Mean Corpuscular Hgb 29.4 pg (27.0-32.0); Mean Corpuscular Volume 82.2 fL (80-94); Mean Platelet Vol. 9.8 fl (6.2-12.0); Monocyte# 0.13 X10^3/uL; Monocyte% 2.1 % (0-10); NRBC Flagged by Analyzer 0 % (0-5); Neutrophil # 5.18 X10^3/uL (2.7-7.7); Neutrophil % 84.1 % (47-70); POSITIVE MORPHOLOGY YES; Platelet Count 169 K/mm3 (150-450); RBC Distribution Width CV 11.8 % (11.6-14.6); RBC Distribution Width SD 35.7 fl (35.1-43.9); Red Blood Count 4.56 M/mm3 (4.6-6.2); White Blood Count 6.2 K/mm3 (4.4-11.0)
[2021-04-05 08:43] LABS: Differential Indicated SCAN CRITERIA MET
[2021-04-05 09:03] LABS: Anion Gap 8 (5-15); BUN 47 mg/dL (7-18); BUN/Creat Ratio 28.1 RATIO (10-20); Calcium,Total 7.9 mg/dL (8.5-10.1); Chloride 96 mmol/L (98-107); Creatinine, Serum 1.67 mg/dL (0.70-1.30); EST Glomerular Filtration Rate 44 mL/min (>60); Est Glom Filt Rate - Afr Amer 53 mL/min (>60); Glucose 198 mg/dL (74-106); Potassium 3.4 mmol/L (3.5-5.1); Sodium Level 132 mmol/L (136-145)
[2021-04-05] MEDS: Sertraline 50 MG Tablet 150 MG PO (09:33)
[2021-04-05] MEDS: Enoxaparin 30 MG/0.3 ML Syringe SC ×2 (09:34→22:26)
[2021-04-05] MEDS: Clopidogrel Bisulfate 75 MG Tablet PO (09:34)
[2021-04-05] MEDS: Modafinil 200 MG Tablet PO (09:34)
[2021-04-05] MEDS: Aspirin 81 MG TAB.CHEW PO (09:36)
--- NOTE | 2021-04-05 11:23 | CASEMGMT ---
[facility] to [facility] to [facility], spoke with Theresa. Pt currently needed O2 increased to 11L. She states at this time, it would be too early to start O2 paperwork. Should pt need O2 for a weekend dc, paperwork would need to be turned in tomorrow by 1pm. TRE RODRIGUEZ to follow to see what liter flow pt is on tomorrow. She states if it is unknown, pt could use a local DME then the referral could be [facility] to the [facility]. TRE RODRIGUEZ to follow.
--- NOTE | 2021-04-05 11:43 | PN.HOSP_ITS ---
Subjective Subjective Patient seen and examined. He has no active complaints today. He was noted to be a bit more drowsy than usual. He is now up to 11 L of oxygen. He however does not feel his breathing is any worse. Review of systems otherwise negative. Potassium is 3.4 today. Objective Data Objective Data Vital Signs: Vital Signs Temp Pulse Resp BP Pulse Ox 97.2 F L 66 22 H 85/44 L 93 04/05/21 09:26 04/05/21 09:29 04/05/21 09:26 04/05/21 09:26 04/05/21 09:26 Oxygen Flow Rate (L/min) 11 Oxygen Delivery Method Nasal Cannula Weight: 184 lb 11.958 oz Body Mass Index (BMI) 0.0 Intake & Output: Intake and Output for Last 24 Hours 04/03/21 04/04/21 04/05/21 23:59 23:59 23:59 Intake Total 262.75 / 562.75 400 / 400 Output Total 400 / 525 250 / 250 Balance -137.25 / 37.75 150 / 150 Lab / Micro Data Result Diagrams: 04/05/21 08:26 04/05/21 08:26 Labs: Laboratory Results - last 24 hr 04/04/21 04:52: B-Natriuretic Peptide 21.7 04/04/21 04:52: Procalcitonin 0.13 H 04/04/21 15:53: POC Glucose 244 H 04/04/21 23:09: POC Glucose 229 H 04/05/21 06:22: POC Glucose 208 H 04/05/21 08:26: WBC 6.2, RBC 4.56 L, Hgb 13.4, Hct 37.5 L, MCV 82.2, MCH 29.4, MCHC 35.7, RDW Std Deviation 35.7, RDW Coeff of Eben 11.8, Plt Count 169, MPV 9.8, Immature Gran % (Auto) 0.300, Neut % (Auto) 84.1 H, Lymph % (Auto) 13.3 L, [place] % (Auto) 2.1, Eos % (Auto) 0.0, Baso % (Auto) 0.2, Absolute Neuts (auto) 5.2, Absolute Lymphs (auto) 0.82 L, Nucleated RBC % 0 04/05/21 08:26: Sodium 132 L, Potassium 3.4 L, Chloride 96 L, Carbon Dioxide 28.0, Anion Gap 8, BUN 47 H, Creatinine 1.67 H, Estim Creat Clear Calc 39.80, Est GFR (MDRD) Af Amer 53 L, Est GFR (MDRD) Non-Af 44 L, BUN/Creatinine Ratio 28.1 H, Glucose 198 H, Calcium 7.9 L Micro: Microbiology 04/04/21 07:49 Mucosa - Nasopharyngeal Respiratory Panel (PCR) - Final 04/04/21 08:50 Urine, Clean Catch Legionella Antigen - Final 04/04/21 08:50 Urine, Clean Catch Streptococcus pneumoniae Antigen (M - Final Physical Exam Const alert, oriented x3 and no apparent distress Orientation / Consciousness: lethargic Exam Limitations: no limitations HEENT head/scalp atraumatic and moist oral mucous membranes Head and Scalp: normocephalic Eyes PERRL, EOMs intact bilaterally and conjunctivae normal Neck no lymphadenopathy Resp Resp Narrative: tachypneic, bilateral crackles. No wheezes. now on 11L of oxygen by nasal cannula Cardio regular rate, regular rhythm, S1 normal heart sound, S2 normal heart sound and no murmurs GI normal to inspection, nondistended, normoactive bowel sounds, soft to palpation, non-tender and non-distended Extremity normal to inspection, full ROM and no clubbing, cyanosis or edema Skin no rashes or lesions noted Neuro oriented x3, CN's II-XII intact bilaterally and moves all extremities Sensorium / Orientation: awake and alert Psych affect normal Assessment & Plan Assessment/Plan (1) Pneumonia due to COVID-19 virus: (2) Hypoxia: PLAN: #Acute hypoxic respiratory insufficiency due to COVID 19 pneumonia * now on 11L of oxygen * on decadron. On remdesivir * titrate oxygen to maintain sats >90% * breathing treatment with bronchodilators * pulmonology consulted due to increasing oxygen requirements * #Hypokalemia: resolved #CAD * troponin was elevated during recent admission, with a peak of 169. * on aspirin and plavix as well as statin and metoprolol * 2D echo (03/30/2021): EF of 55-60%, with normal LV systolic function * #Hypertension: On amlodipine, metoprolol, lisinopril and IV hydralazine as needed #Hyperlipidemia: On statin #Anxiety and depression: On BuSpar and sertraline #TYpe 2 diabetes melllitus with neuropathy * on Victoza * ISS. Accuchecks ACHS. * on gabapentin * #SEBASTIAN: on CPAP qhs #BPH: on flomax DVT prophylaxis: lovenox 30mg bid Charges/Coding Visit Charges Inpatient E&M: 01909 Subs Hosp L3
[2021-04-05] MEDS: dexAMETHasone 10 MG/ML Vial 6 MG IV (11:50)
[2021-04-05 13:00] LABS: Base Excess 2 mmol/L (-2 to +2); Blood Gas Specimen Type ART; O2 Delivery Device Cannula; PO2 65 mmHG (75-100); SITE R Brach; SO2 93 % (95-99); Total Carbon Dioxide 27 mmol/L; pCO2 40.2 mmHg (35-45); pH 7.42 (7.35-7.45)
--- NOTE | 2021-04-05 13:15 | CON.PCM.CC_ITS ---
Assessment & Plan Assessment/Plan (1) Pneumonia due to COVID-19 virus: PLAN: RECOMMENDATIONS: 1. Continue supplemental oxygen to maintain saturations at or above 90%. 2. Continue remdesivir, Decadron and Lovenox as ordered. Continue to monitor liver and renal function. 3. Given interval worsening in oxygenation status, obtain infectious diseases consultation. 4. We will start empiric antimicrobials. We will check MRSA screen. 5. Awake prone positioning was encouraged. 6. Hemodynamic status and renal insufficiency would preclude the use of diuretics. 7. Heated high flow or BiPAP can be utilized, if escalation in oxygen delivery is required. IMPRESSIONS: 1. Acute hypoxemic respiratory failure secondary to COVID-19 pneumonia The patient presented to the hospital with worsening dyspnea and hypoxemia, having previously been diagnosed with COVID-19 pneumonia with symptom onset sometime around March 27. The patients oxygenation status is worsening with time. He has already been initiated on remdesivir, Decadron and Lovenox. Given clinical worsening, will start him empirically on antimicrobials. His current hemodynamic and renal status would preclude the use of diuretics. Awake prone positioning was encouraged. Consider infectious diseases consultation for consideration of baricitinib. 2. Acute kidney injury Likely prerenal in etiology. Continue to monitor urine output for now. No c urrent indication for renal replacement therapy. Avoid nephrotoxic medications. 3. Hypokalemia Electrolyte repletion as ordered. Recheck levels in the morning. 4. Hypertension/hyperlipidemia/anxiety/depression/diabetes mellitus/sleep apnea/hypothyroidism Complicates care, management, recovery and prognosis. Recommend holding antihypertensives given tenuous hemodynamics. This note was generated with [employer] dictation software. It may contain incorrect words, spelling, and punctuation that were not noted in checking the note before signing. HPI Consult Data Date of Consult: 04/06/21 HPI Narrative Reason for Consultation: Acute hypoxemic respiratory failure secondary to COVID- 19 pneumonia HPI Narrative: The patient is a 66-year-old male, with a history as outlined below, who presented to the emergency department on April 04 with progressive dyspnea. The patient had just been admitted to the hospital for 48 hours with COVID-19 pneumonia and NSTEMI. The patient was medically managed and discharged on March 31. The patient had initially tested positive on March 27. On presentation to the emergency department, the patient was noted to be febrile and tachycardic. Initial laboratory evaluation revealed no evidence of a l eukocytosis. Coagulation profile revealed a D-dimer of 1.47. Chemistry profile was notable for a sodium of 131, potassium of 3.3, chloride of 94 and creatinine of 1.06. CRP was elevated to 77. Procalcitonin was noted to be 0.13. CTA chest showed no evidence for PE, but did demonstrate significant bilateral airspace disease along with scattered bronchiectasis. The patient was subsequently placed on remdesivir, Decadron and Lovenox. Over the course of his hospitalization, to date, the patient's oxygenation requirement has been steadily increasing. He is currently documented to be overall net even, but has developed acute kidney injury with a creatinine of 1.67 this morning. [facility] Medical History Anxiety Chest pain Chronic pain Coronary artery disease CPAP (continuous positive airway pressure) dependence Depression Diabetes Former smoker GERD (gastroesophageal reflux disease) GI bleed Hearing loss, left Hearing loss, right Hypertension Hypothyroidism Migraines Myocardial infarct Osteoporosis Sleep apnea Vision loss of right eye Home Medications amlodipine 10 mg PO DAILY 10/05/16 [History Last Taken 04/03/21 22:00] lisinopril [Prinivil] 20 mg PO DAILY 10/05/16 [History Last Taken 04/03/21 08:00] metformin 1,000 mg PO DAILY 10/05/16 [History Last Taken 04/03/21 08:00] metoprolol tartrate 150 mg PO BID 10/05/16 [History Last Taken 04/03/21 08:00] nortriptyline 20 mg PO DAILY 10/05/16 [History Last Taken 04/03/21 08:00] Fish Oil 1,000 mg PO BID 08/17/17 [History Last Taken 04/03/21 08:00] Victoza 2-Adan 1.8 mg SQ DAILY 08/17/17 [History Last Taken 04/03/21 14:00] calcium carbonate 500 mg PO BID 08/17/17 [History Last Taken 04/03/21 08:00] cholecalciferol (vitamin D3) [Vitamin D3] 1,000 unit PO DAILY 08/17/17 [History Last Taken 04/03/21 08:00] pregabalin 100 mg PO BID 08/17/17 [History Last Taken 04/03/21 08:00] buspirone 10 mg PO QHS 06/17/19 [History Last Taken 04/03/21 22:00] modafinil 200 mg PO DAILY 06/17/19 [History Last Taken 04/03/21 08:00] sertraline 150 mg PO DAILY 06/17/19 [History Last Taken 04/03/21 08:00] aspirin 81 mg PO DAILY@0800 08/17/19 [History Last Taken 04/03/21 08:00] atorvastatin 40 mg PO QHS 08/17/19 [History Last Taken 04/03/21 22:00] tamsulosin 0.4 mg PO DAILY 03/30/21 [History Last Taken 04/03/21 08:00] clopidogrel 75 mg PO DAILY #30 tab 03/31/21 [Rx Last Taken 04/03/21 08:00] Allergy/AdvReac Type Severity Reaction Status Date / Time No Known Allergies Allergy Verified 04/04/21 00:25 Family History (Updated 03/30/21 @ 02:54 by Valerie Corona) Mother Diabetes Father Heart disease CVA (cerebral vascular accident) Surgical History History of back surgery History of cholecystectomy Social History household members: spouse and children housing: apartment current occupational status: disabled Smoking Status: Former smoker Tobacco: How many years used: 30 diet: diabetic what type of physical activity do you participate in: walking ROS Constitutional Constitutional: Reports fatigue and fever(s) Eyes Eyes: Denies blurry vision or change in vision ENT HEENT: Reports headache(s); Denies dizziness or dysphagia Cardiovascular Cardiovascular: Reports dyspnea; Denies chest pain Respiratory/Chest Respiratory/Chest: Reports cough and dyspnea Gastrointestinal Gastrointestinal: Denies abdominal pain, diarrhea, nausea or vomiting Genitourinary Genitourinary: Denies difficulty urinating or dysuria Musculoskeletal Musculoskeletal: Denies arthralgias or back pain Integumentary Integumentary: Denies lesions, rash or skin ulcer Neurologic Neurologic: Denies abnormal gait or abnormal speech Psychiatric Psychiatric: Denies anxiety or depression Endocrine Endocrinology: Reports fatigue Hematologic/Lymphatic Hematologic/Lymphatic: Denies easy bleeding or easy bruising Physical Exam Const alert and no apparent distress General Appearance: cooperative HEENT normocephalic and head/scalp atraumatic Eyes PERRL, EOMs intact bilaterally and conjunctivae normal Neck supple General: trachea midline Chest inspection of chest normal Resp Effort and Inspection: tachypneic; Negative for labored Auscultation: diminished lung sounds Cardio regular rate and regular rhythm GI normal to inspection, nondistended, normoactive bowel sounds Extremity no clubbing, cyanosis or edema Skin no rashes or lesions noted Neuro CN's II-XII intact bilaterally, moves all extremities and no focal motor deficits Psych Mood & Affect: flat affect Lab / Micro Data Result Diagrams: 04/06/21 08:45 04/06/21 08:45 Labs: Laboratory Results - last 24 hr 04/04/21 15:53: POC Glucose 244 H 04/04/21 23:09: POC Glucose 229 H 04/05/21 06:22: POC Glucose 208 H 04/05/21 08:26: WBC 6.2, RBC 4.56 L, Hgb 13.4, Hct 37.5 L, MCV 82.2, MCH 29.4, MCHC 35.7, RDW Std Deviation 35.7, RDW Coeff of Eben 11.8, Plt Count 169, MPV 9.8, Immature Gran % (Auto) 0.300, Neut % (Auto) 84.1 H, Lymph % (Auto) 13.3 L, [place] % (Auto) 2.1, Eos % (Auto) 0.0, Baso % (Auto) 0.2, Absolute Neuts (auto) 5.2, Absolute Lymphs (auto) 0.82 L, Nucleated RBC % 0 04/05/21 08:26: Sodium 132 L, Potassium 3.4 L, Chloride 96 L, Carbon Dioxide 28.0, Anion Gap 8, BUN 47 H, Creatinine 1.67 H, Estim Creat Clear Calc 39.80, Est GFR (MDRD) Af Amer 53 L, Est GFR (MDRD) Non-Af 44 L, BUN/Creatinine Ratio 28.1 H, Glucose 198 H, Calcium 7.9 L Micro: Microbiology 04/04/21 07:49 Mucosa - Nasopharyngeal Respiratory Panel (PCR) - Final 04/04/21 08:50 Urine, Clean Catch Legionella Antigen - Final 04/04/21 08:50 Urine, Clean Catch Streptococcus pneumoniae Antigen (M - Final ABG Data ABG results: ABG 04/05/21 12:42 Specimen Type ART Sample Site R Brach pH 7.42 Bicarbonate Actual 26.0 Total CO2 27 Base Excess 2 O2 Saturation 93 L ABG pCO2 40.2 ABG pO2 65 L Dash Test N/A O2 Delivery Device Cannula Liter Flow 9.0 Charges/Coding Visit Charges Inpatient E&M: 34406 Init Hosp L3
[2021-04-05] MEDS: 0.9% Saline Lock 10 ML Syringe IV ×3 (13:56→22:53)
[2021-04-05 19:17] LABS: M R Staph aureus DNA By PCR Negative (Negative); Probe Check PASS; Specimen Processing Control PASS
[2021-04-05] MEDS: Atorvastatin Calcium 40 MG Tablet PO (22:24)
[2021-04-05] MEDS: Metoprolol Tartrate 50 MG Tablet 150 MG PO (22:24)
[2021-04-05] MEDS: Nortriptyline 10 MG Capsule 20 MG PO (22:24)
[2021-04-05] MEDS: busPIRone 5 MG Tablet 10 MG PO (22:26)
[2021-04-05] MEDS: Pregabalin 50 MG Capsule 100 MG PO (22:26)
[2021-04-05 23:15] LABS: Bedside Glucose 253 mg/dL (70-110)
[2021-04-05 23:15] LABS: Bedside Glucose 390 mg/dL (70-110)
[2021-04-06] VITALS (22 sets, daily range): BP systolic 105–118; BP diastolic 55–68; PULSE 63–85; RESP 12–21; TEMP 35.4–36.8; O2SAT 90–96
[2021-04-06 00:21] LABS: Bedside Glucose 417 mg/dL (70-110)
[2021-04-06] MEDS: BENZOCAINE/MENTHOL 1 LOZENGE MUCOUS MEM (00:44)
[2021-04-06] MEDS: 0.9% Saline Lock 10 ML Syringe IV (06:29)
[2021-04-06] MEDS: Insulin Lispro 100 UNIT/ML INSULN.PEN SC ×3 (07:51→16:59)
[2021-04-06] MEDS: Potassium Chloride Oral Tablet 20 MEQ 60 MEQ PO (07:58)
--- NOTE | 2021-04-06 08:07 | PN.CC_ITS ---
Assessment & Plan Assessment/Plan (1) Pneumonia due to COVID-19 virus: PLAN: RECOMMENDATIONS: 1. Start patient on Airvo heated high flow and wean FiO2 for saturations greater than 90%. 2. Continue remdesivir, Decadron and Lovenox as ordered. Continue to monitor liver and renal function. 3. Consider initiation of baricitinib. 4. Continue empiric antimicrobials. 5. Awake prone positioning was encouraged. 6. Renal insufficiency would preclude the use of diuretics. 7. Start BiPAP therapy with naps and nightly. IMPRESSIONS: 1. Acute hypoxemic respiratory failure secondary to COVID-19 pneumonia The patient presented to the hospital with worsening dyspnea and hypoxemia, having previously been diagnosed with COVID-19 pneumonia with symptom onset sometime around March 27. The patients oxygenation status is worsening with time. He has already been initiated on remdesivir, Decadron and Lovenox. Given clinical worsening, the patient was also started empirically on antimicrobials. His current renal status would preclude the use of diuretics. Awake prone positioning was encouraged. Consider infectious diseases consultation for consideration of baricitinib. 2. Acute kidney injury Improving. Likely prerenal in etiology. Continue to monitor urine output for now. No current indication for renal replacement therapy. Avoid nephrotoxic medications. 3. Hypertension/hyperlipidemia/anxiety/depression/diabetes mellitus/sleep apnea/hypothyroidism Complicates care, management, recovery and prognosis. Continue home medications as indicated. Start nocturnal BiPAP therapy given history of SEBASTIAN. This note was generated with [employer] dictation software. It may contain incorrect words, spelling, and punctuation that were not noted in checking the note before signing. Subjective Subjective The patient was seen and examined at the bedside this morning. Events from the last 24 hours have been reviewed. The patient is currently afebrile, hemodynamically stable and maintaining appropriate oxygen saturations on a combination of high flow oxygen and nonrebreather. The patient does report feeling tired. He is currently documented to be overall net +500 mL for the hospital admission. He remains on remdesivir, empiric antimicrobials, Decadron and Lovenox. Creatinine remains elevated at 1.42. Objective Data Objective Data The patient's most recent lab work, culture data and imaging studies have all been personally reviewed. Strep and urine Legionella antigens were negative. Respiratory viral panel was negative. Vital Signs: Vital Signs Temp Pulse Resp BP Pulse Ox 97.2 F L 68 20 H 117/65 92 04/06/21 07:43 04/06/21 07:43 04/06/21 07:43 04/06/21 07:43 04/06/21 07:43 Oxygen Flow Rate (L/min) 15 Oxygen Delivery Method Non-Rebreather Weight: 83.5 kg Body Mass Index (BMI) 0.0 Intake & Output: Intake and Output for Last 24 Hours 04/04/21 04/05/21 04/06/21 23:59 23:59 23:59 Intake Total 262.75 / 562.75 450 / 450 300 / 300 Output Total 400 / 525 450 / 450 Balance -137.25 / 37.75 0 / 0 300 / 300 Lab / Micro Data Attestation: I reviewed the patient's lab results. Result Diagrams: 04/06/21 08:45 04/06/21 08:45 Labs: Laboratory Results - last 24 hr 04/05/21 08:26: WBC 6.2, RBC 4.56 L, Hgb 13.4, Hct 37.5 L, MCV 82.2, MCH 29.4, MCHC 35.7, RDW Std Deviation 35.7, RDW Coeff of Eben 11.8, Plt Count 169, MPV 9.8, Immature Gran % (Auto) 0.300, Neut % (Auto) 84.1 H, Lymph % (Auto) 13.3 L, [place] % (Auto) 2.1, Eos % (Auto) 0.0, Baso % (Auto) 0.2, Absolute Neuts (auto) 5.2, Absolute Lymphs (auto) 0.82 L, Nucleated RBC % 0 04/05/21 08:26: Sodium 132 L, Potassium 3.4 L, Chloride 96 L, Carbon Dioxide 28.0, Anion Gap 8, BUN 47 H, Creatinine 1.67 H, Estim Creat Clear Calc 39.80, Est GFR (MDRD) Af Amer 53 L, Est GFR (MDRD) Non-Af 44 L, BUN/Creatinine Ratio 28.1 H, Glucose 198 H, Calcium 7.9 L 04/05/21 11:16: POC Glucose 253 H 04/05/21 16:10: MRSA (PCR) Negative 04/05/21 16:17: POC Glucose 390 H 04/05/21 22:22: POC Glucose 417 H Micro: Microbiology 04/04/21 07:49 Mucosa - Nasopharyngeal Respiratory Panel (PCR) - Final 04/04/21 08:50 Urine, Clean Catch Legionella Antigen - Final 04/04/21 08:50 Urine, Clean Catch Streptococcus pneumoniae Antigen (M - Final ABG Data ABG results: ABG 04/05/21 12:42 Specimen Type ART Sample Site R Brach pH 7.42 Bicarbonate Actual 26.0 Total CO2 27 Base Excess 2 O2 Saturation 93 L ABG pCO2 40.2 ABG pO2 65 L Dash Test N/A O2 Delivery Device Cannula Liter Flow 9.0 Physical Exam Const alert General Appearance: cooperative and ill appearing HEENT normocephalic and head/scalp atraumatic Eyes PERRL, EOMs intact bilaterally and conjunctivae normal Neck supple General: trachea midline Chest inspection of chest normal Resp Effort and Inspection: tachypneic; Negative for labored Auscultation: rales and diminished lung sounds Cardio regular rate and regular rhythm GI normal to inspection, nondistended, normoactive bowel sounds Extremity no clubbing, cyanosis or edema Skin no rashes or lesions noted Neuro CN's II-XII intact bilaterally, moves all extremities and no focal motor deficits Psych Mood & Affect: flat affect Charges/Coding Visit Charges Inpatient E&M: 03200 Subs Hosp L3
[2021-04-06 08:58] LABS: Absolute Lymphocyte Count 0.65 X10^3/uL (0.83-4.51); Absolute Neutrophil Count 5.6 X10^3/uL (2.0-7.7); Basophil# 0.01 X10^3/uL; Basophil% 0.2 % (0-1); Hematocrit 41.2 % (40-54); Hemoglobin 14.3 g/dL (13.0-16.5); Lymphocyte # 0.65 X10^3/ul (0.83-4.51); Mean Corp Hgb Conc 34.7 g/dL (32-36); Mean Corpuscular Hgb 29.1 pg (27.0-32.0); Mean Corpuscular Volume 83.7 fL (80-94); Mean Platelet Vol. 9.5 fl (6.2-12.0); Monocyte# 0.21 X10^3/uL; Monocyte% 3.2 % (0-10); NRBC Flagged by Analyzer 0 % (0-5); Neutrophil % 86.1 % (47-70); POSITIVE MORPHOLOGY YES; Platelet Count 215 K/mm3 (150-450); RBC Distribution Width CV 11.9 % (11.6-14.6); Red Blood Count 4.92 M/mm3 (4.6-6.2); White Blood Count 6.5 K/mm3 (4.4-11.0)
[2021-04-06 09:01] LABS: Differential Indicated SCAN CRITERIA MET
[2021-04-06 09:13] LABS: ALB/GLOB Ratio 0.5 RATIO (0.9-2.4); AST(SGOT) 42 U/L (15-37); Alanine Aminotransfer ALT/SGPT 36 U/L (16-61); Albumin, Serum 2.3 g/dL (3.2-5.0); Alkaline Phosphatase 89 U/L (45-117); Anion Gap 7 (5-15); BUN 51 mg/dL (7-18); BUN/Creat Ratio 35.9 RATIO (10-20); Calcium,Total 8.3 mg/dL (8.5-10.1); Chloride 98 mmol/L (98-107); Creatinine, Serum 1.42 mg/dL (0.70-1.30); EST Glomerular Filtration Rate 53 mL/min (>60); Est Glom Filt Rate - Afr Amer 64 mL/min (>60); Globulin 4.7 g/dL (2.2-4.2); Glucose 328 mg/dL (74-106); Potassium 3.7 mmol/L (3.5-5.1); Sodium Level 134 mmol/L (136-145)
[2021-04-06 09:21] LABS: Atypical Lymphocyte RARE %; Differential Comment SCANNED
[2021-04-06] MEDS: Enoxaparin 30 MG/0.3 ML Syringe SC (09:48)
[2021-04-06] MEDS: Metoprolol Tartrate 50 MG Tablet 150 MG PO (09:48)
[2021-04-06] MEDS: Sertraline 50 MG Tablet 150 MG PO (09:48)
[2021-04-06] MEDS: Lisinopril 20 MG Tablet PO (09:49)
[2021-04-06] MEDS: Tamsulosin HCl 0.4 MG Capsule PO (09:49)
[2021-04-06] MEDS: dexAMETHasone 10 MG/ML Vial 6 MG IV (09:49)
[2021-04-06] MEDS: Clopidogrel Bisulfate 75 MG Tablet PO (09:49)
[2021-04-06] MEDS: amLODIPine 10 MG Tablet PO (09:49)
[2021-04-06] MEDS: Pregabalin 50 MG Capsule 100 MG PO (09:51)
[2021-04-06] MEDS: Aspirin 81 MG TAB.CHEW PO (09:51)
[2021-04-06 10:21] LABS: Bedside Glucose 317 mg/dL (70-110)
--- NOTE | 2021-04-06 10:52 | PN.HOSP_ITS ---
Subjective Subjective Patient seen and examined. He feels weak, but has no other active complaints. Review of systems otherwise negative. His oxygen requirements have gone up and he is now on 15L of oxygen. He is in cumulative positive balance by 162.75. Review of systems is otherwise negative. Objective Data Objective Data Vital Signs: Vital Signs Temp Pulse Resp BP Pulse Ox 97.2 F L 68 20 H 117/65 92 04/06/21 07:43 04/06/21 09:48 04/06/21 10:00 04/06/21 07:43 04/06/21 07:43 Oxygen Flow Rate (L/min) 15 Oxygen Delivery Method Nasal Cannula Weight: 184 lb 1.376 oz Body Mass Index (BMI) 0.0 Intake & Output: Intake and Output for Last 24 Hours 04/04/21 04/05/21 04/06/21 23:59 23:59 23:59 Intake Total 262.75 / 562.75 450 / 450 300 / 300 Output Total 400 / 525 450 / 450 Balance -137.25 / 37.75 0 / 0 300 / 300 Lab / Micro Data Result Diagrams: 04/06/21 08:45 04/06/21 08:45 Labs: Laboratory Results - last 24 hr 04/05/21 11:16: POC Glucose 253 H 04/05/21 16:10: MRSA (PCR) Negative 04/05/21 16:17: POC Glucose 390 H 04/05/21 22:22: POC Glucose 417 H 04/06/21 07:47: POC Glucose 317 H 04/06/21 08:45: WBC 6.5, RBC 4.92, Hgb 14.3, Hct 41.2, MCV 83.7, MCH 29.1, MCHC 34.7, RDW Std Deviation 36.0, RDW Coeff of Eben 11.9, Plt Count 215, MPV 9.5, Immature Gran % (Auto) 0.500, Neut % (Auto) 86.1 H, Lymph % (Auto) 10.0 L, [place] % (Auto) 3.2, Eos % (Auto) 0.0, Baso % (Auto) 0.2, Absolute Neuts (auto) 5.6, Absolute Lymphs (auto) 0.65 L, Nucleated RBC % 0, Differential Comment SCANNED, Atypical Lymphocytes RARE 04/06/21 08:45: Sodium 134 L, Potassium 3.7, Chloride 98, Carbon Dioxide 29.0, Anion Gap 7, BUN 51 H, Creatinine 1.42 H, Estim Creat Clear Calc 46.80, Est GFR (MDRD) Af Amer 64, Est GFR (MDRD) Non-Af 53 L, BUN/Creatinine Ratio 35.9 H, Glucose 328 H, Calcium 8.3 L, Total Bilirubin 0.60, AST 42 H, ALT 36, Alkaline Phosphatase 89, Total Protein 7.0, Albumin 2.3 L, Globulin 4.7 H, Albumin/Globulin Ratio 0.5 L Micro: Microbiology 04/04/21 07:49 Mucosa - Nasopharyngeal Respiratory Panel (PCR) - Final 04/04/21 08:50 Urine, Clean Catch Legionella Antigen - Final 04/04/21 08:50 Urine, Clean Catch Streptococcus pneumoniae Antigen (M - Final ABG Data ABG results: ABG 04/05/21 12:42 Specimen Type ART Sample Site R Brach pH 7.42 Bicarbonate Actual 26.0 Total CO2 27 Base Excess 2 O2 Saturation 93 L ABG pCO2 40.2 ABG pO2 65 L Dash Test N/A O2 Delivery Device Cannula Liter Flow 9.0 Physical Exam Const alert, oriented x3 and no apparent distress Orientation / Consciousness: lethargic Exam Limitations: no limitations HEENT head/scalp atraumatic and moist oral mucous membranes Head and Scalp: normocephalic Eyes PERRL, EOMs intact bilaterally and conjunctivae normal Neck no lymphadenopathy Resp Resp Narrative: tachypneic, bilateral crackles. No wheezes. now on 15L of oxygen by nasal cannula Cardio regular rate, regular rhythm, S1 normal heart sound, S2 normal heart sound and no murmurs GI normal to inspection, nondistended, normoactive bowel sounds, soft to palpation, non-tender and non-distended Extremity normal to inspection, full ROM and no clubbing, cyanosis or edema Peripheral Pulses: Yes pulses 2+ throughout Skin no rashes or lesions noted Neuro oriented x3, CN's II-XII intact bilaterally and moves all extremities Sensorium / Orientation: awake and alert Psych affect normal Assessment & Plan Assessment/Plan (1) Pneumonia due to COVID-19 virus: (2) Hypoxia: PLAN: #Acute hypoxic respiratory failure due to COVID 19 pneumonia * now on 15L of oxygen * on decadron. On remdesivir * titrate oxygen to maintain sats >90% * breathing treatment with bronchodilators * pulmonology on board. * Consult ID to see if patient will benefit from baricitinib. * will likely need to transition to AIrvo or BIPAP. Patient indicates he will want to be intubated if he gets to that point. * #Hypokalemia: resolved #CAD * on aspirin and plavix as well as statin and metoprolol * 2D echo (03/30/2021): EF of 55-60%, with normal LV systolic function * #Hypertension: On amlodipine, metoprolol, lisinopril and IV hydralazine as needed #Hyperlipidemia: On statin #Anxiety and depression: On BuSpar and sertraline #TYpe 2 diabetes melllitus with neuropathy * on Victoza * ISS. Accuchecks ACHS. * on gabapentin * #SEBASTIAN: on CPAP qhs #BPH: on flomax DVT prophylaxis: lovenox 30mg bid Charges/Coding Visit Charges Inpatient E&M: 81681 Subs Hosp L3
[2021-04-06] MEDS: Modafinil 200 MG Tablet PO (11:15)
[2021-04-06 11:55] LABS: Bedside Glucose 402 mg/dL (70-110)
--- NOTE | 2021-04-06 15:29 | CON.PCM.ID_ITS ---
Assessment & Plan Assessment/Plan (1) Pneumonia due to COVID-19 virus: PLAN: Sx started 03/28. Isolate until 04/18. Recommend vaccine in next 1-2 months. Unvaccinated. Now worsening O2. Some yellow sputum, encouraged him to give sample for culture. On dex, remdesivir. CT neg for PE, on lovenox 30mg bid. Reviewed EUA and risks/benefits, we agree to start baricitinib. Ordering labs for monitoring. Will follow, thank you (2) Hypoxia: HPI Consult Data Date of Consult: 04/06/21 HPI Narrative HPI Narrative: OPAL CRUZ, is a 66 M with h/o DM, CAD, depression, presented 04/04 with sx since 03/28. Son in law with covid. is asymptomatic, tested neg. He is unvaccinated. C/o fever, chills, cough with yellow sputum, progressive dyspnea, loss of taste. Came to ED, admitted on dex and remdesivir. Now worsened O2, zosyn started, pulm consulted. Full ROS performed and neg except as noted above. [facility] Medical History Anxiety Chest pain Chronic pain Coronary artery disease CPAP (continuous positive airway pressure) dependence Depression Diabetes Former smoker GERD (gastroesophageal reflux disease) GI bleed Hearing loss, left Hearing loss, right Hypertension Hypothyroidism Migraines Myocardial infarct Osteoporosis Sleep apnea Vision loss of right eye Home Medications amlodipine 10 mg PO DAILY 10/05/16 [History Last Taken 04/03/21 22:00] lisinopril [Prinivil] 20 mg PO DAILY 10/05/16 [History Last Taken 04/03/21 08:00] metformin 1,000 mg PO DAILY 10/05/16 [History Last Taken 04/03/21 08:00] metoprolol tartrate 150 mg PO BID 10/05/16 [History Last Taken 04/03/21 08:00] nortriptyline 20 mg PO DAILY 10/05/16 [History Last Taken 04/03/21 08:00] Fish Oil 1,000 mg PO BID 08/17/17 [History Last Taken 04/03/21 08:00] Victoza 2-Adan 1.8 mg SQ DAILY 08/17/17 [History Last Taken 04/03/21 14:00] calcium carbonate 500 mg PO BID 08/17/17 [History Last Taken 04/03/21 08:00] cholecalciferol (vitamin D3) [Vitamin D3] 1,000 unit PO DAILY 08/17/17 [History Last Taken 04/03/21 08:00] pregabalin 100 mg PO BID 08/17/17 [History Last Taken 04/03/21 08:00] buspirone 10 mg PO QHS 06/17/19 [History Last Taken 04/03/21 22:00] modafinil 200 mg PO DAILY 06/17/19 [History Last Taken 04/03/21 08:00] sertraline 150 mg PO DAILY 06/17/19 [History Last Taken 04/03/21 08:00] aspirin 81 mg PO DAILY@0800 08/17/19 [History Last Taken 04/03/21 08:00] atorvastatin 40 mg PO QHS 08/17/19 [History Last Taken 04/03/21 22:00] tamsulosin 0.4 mg PO DAILY 03/30/21 [History Last Taken 04/03/21 08:00] clopidogrel 75 mg PO DAILY #30 tab 03/31/21 [Rx Last Taken 04/03/21 08:00] Allergy/AdvReac Type Severity Reaction Status Date / Time No Known Allergies Allergy Verified 04/04/21 00:25 Family History (Updated 03/30/21 @ 02:54 by Valerie Corona) Mother Diabetes Father Heart disease CVA (cerebral vascular accident) Surgical History History of back surgery History of cholecystectomy Social History household members: spouse and children housing: apartment current occupational status: disabled Smoking Status: Former smoker Tobacco: How many years used: 30 diet: diabetic what type of physical activity do you participate in: walking Physical Exam Const alert and oriented x3 General Appearance: cooperative Exam Limitations: no limitations HEENT normocephalic and head/scalp atraumatic Eyes PERRL and EOMs intact bilaterally Neck supple and No nodes Resp Auscultation: diminished lung sounds Cardio regular rate and regular rhythm GI normal to inspection, nondistended, normoactive bowel sounds Extremity no clubbing, cyanosis or edema Skin no rashes or lesions noted Neuro CN's II-XII intact bilaterally Lab / Micro Data Result Diagrams: 04/06/21 08:45 04/06/21 08:45 Labs: Laboratory Results - last 24 hr 04/05/21 11:16: POC Glucose 253 H 04/05/21 16:10: MRSA (PCR) Negative 04/05/21 16:17: POC Glucose 390 H 04/05/21 22:22: POC Glucose 417 H 04/06/21 07:47: POC Glucose 317 H 04/06/21 08:45: WBC 6.5, RBC 4.92, Hgb 14.3, Hct 41.2, MCV 83.7, MCH 29.1, MCHC 34.7, RDW Std Deviation 36.0, RDW Coeff of Eben 11.9, Plt Count 215, MPV 9.5, Immature Gran % (Auto) 0.500, Neut % (Auto) 86.1 H, Lymph % (Auto) 10.0 L, [place] % (Auto) 3.2, Eos % (Auto) 0.0, Baso % (Auto) 0.2, Absolute Neuts (auto) 5.6, Absolute Lymphs (auto) 0.65 L, Nucleated RBC % 0, Differential Comment SCANNED, Atypical Lymphocytes RARE 04/06/21 08:45: Sodium 134 L, Potassium 3.7, Chloride 98, Carbon Dioxide 29.0, Anion Gap 7, BUN 51 H, Creatinine 1.42 H, Estim Creat Clear Calc 46.80, Est GFR (MDRD) Af Amer 64, Est GFR (MDRD) Non-Af 53 L, BUN/Creatinine Ratio 35.9 H, Glucose 328 H, Calcium 8.3 L, Total Bilirubin 0.60, AST 42 H, ALT 36, Alkaline Phosphatase 89, Total Protein 7.0, Albumin 2.3 L, Globulin 4.7 H, Albumin/Globulin Ratio 0.5 L 04/06/21 11:13: POC Glucose 402 H
[2021-04-07] VITALS (32 sets, daily range): BP systolic 89–138; BP diastolic 55–93; PULSE 61–76; RESP 12–25; TEMP 36.3–37.1; O2SAT 90–100
[2021-04-07 01:41] LABS: Bedside Glucose 314 mg/dL (70-110)
[2021-04-07 01:41] LABS: Bedside Glucose 334 mg/dL (70-110)
[2021-04-07 07:37] LABS: Hematocrit 40.6 % (40-54); Hemoglobin 13.8 g/dL (13.0-16.5); Mean Corpuscular Hgb 29.8 pg (27.0-32.0); Mean Corpuscular Volume 87.7 fL (80-94); Mean Platelet Vol. 10.5 fl (6.2-12.0); Platelet Count 208 K/mm3 (150-450); RBC Distribution Width CV 12.1 % (11.6-14.6); RBC Distribution Width SD 38.9 fl (35.1-43.9); Red Blood Count 4.63 M/mm3 (4.6-6.2); White Blood Count 7.9 K/mm3 (4.4-11.0)
[2021-04-07 07:56] LABS: Bedside Glucose 338 mg/dL (70-110)
[2021-04-07] MEDS: Insulin Lispro 100 UNIT/ML INSULN.PEN SC ×4 (08:03→17:36)
--- NOTE | 2021-04-07 08:55 | PCM.PN.INT ---
Assessment & Plan Assessment/Plan (1) Pneumonia due to COVID-19 virus: PLAN: RECOMMENDATIONS: 1. Given worsening respiratory status, transfer to ICU. 2. Continue AVAPS and wean FiO2 for saturations greater than 90%. 3. Continue remdesivir, Decadron, Lovenox and baricitinib as ordered. 4. Continue empiric antimicrobials. 5. Renal insufficiency would preclude the use of diuretics. IMPRESSIONS: 1. Acute hypoxemic respiratory failure secondary to COVID-19 pneumonia The patient presented to the hospital with worsening dyspnea and hypoxemia, having previously been diagnosed with COVID-19 pneumonia with symptom onset sometime around March 27. The patients oxygenation status is worsening with time. He has already been initiated on remdesivir, Decadron and Lovenox. Following evaluation by infectious diseases, the patient was initiated on baricitinib. His current renal status would preclude the use of diuretics. Given the rapid escalation in oxygen demand over the last 12 hours, recommend transfer to medical intensive care unit. For now, continue AVAPS and wean FiO2 to maintain oxygen saturations at or above 90%. 2. Acute kidney injury Improving. Likely prerenal in etiology. Continue to monitor urine output for now. No current indication for renal replacement therapy. Avoid nephrotoxic medications. 3. Hypertension/hyperlipidemia/anxiety/depression/diabetes mellitus/sleep apnea/hypothyroidism Complicates care, management, recovery and prognosis. Continue home medications as indicated. This note was generated with [employer] dictation software. It may contain incorrect words, spelling, and punctuation that were not noted in checking the note before signing. Subjective Subjective The patient was seen and examined at the bedside this morning. Events from the last 24 hours have been reviewed. The patient is currently afebrile and hemodynamically stable. The patient was ultimately started on AVAPS yesterday and currently has an FiO2 requirement of 100%. He is documented to be overall net +860 mL for the hospital admission. He remains on remdesivir, empiric antimicrobials, Decadron and Lovenox. In addition, he was started on baricitinib yesterday. Objective Data Objective Data The patient's most recent lab work, culture data and imaging studies have all been personally reviewed. Strep and urine Legionella antigens were negative. Respiratory viral panel was negative. Vital Signs: Vital Signs Temp Pulse Resp BP Pulse Ox 97.4 F L 64 19 H 117/62 95 04/07/21 07:45 04/07/21 07:45 04/07/21 07:45 04/07/21 07:45 04/07/21 07:45 Oxygen Flow Rate (L/min) 15 Oxygen Delivery Method Bi-pap Weight: 83.7 kg Body Mass Index (BMI) 0.0 Intake & Output: Intake and Output for Last 24 Hours 04/05/21 04/06/21 04/07/21 23:59 23:59 23:59 Intake Total 450 / 450 1100 / 1100 300 / 300 Output Total 450 / 450 400 / 400 Balance 0 / 0 1100 / 900 -100 / -100 Lab / Micro Data Attestation: I reviewed the patient's lab results. Result Diagrams: 04/07/21 07:09 04/06/21 08:45 Labs: Laboratory Results - last 24 hr 04/06/21 07:47: POC Glucose 317 H 04/06/21 08:45: WBC 6.5, RBC 4.92, Hgb 14.3, Hct 41.2, MCV 83.7, MCH 29.1, MCHC 34.7, RDW Std Deviation 36.0, RDW Coeff of Eben 11.9, Plt Count 215, MPV 9.5, Immature Gran % (Auto) 0.500, Neut % (Auto) 86.1 H, Lymph % (Auto) 10.0 L, [place] % (Auto) 3.2, Eos % (Auto) 0.0, Baso % (Auto) 0.2, Absolute Neuts (auto) 5.6, Absolute Lymphs (auto) 0.65 L, Nucleated RBC % 0, Differential Comment SCANNED, Atypical Lymphocytes RARE 04/06/21 08:45: Sodium 134 L, Potassium 3.7, Chloride 98, Carbon Dioxide 29.0, Anion Gap 7, BUN 51 H, Creatinine 1.42 H, Estim Creat Clear Calc 46.80, Est GFR (MDRD) Af Amer 64, Est GFR (MDRD) Non-Af 53 L, BUN/Creatinine Ratio 35.9 H, Glucose 328 H, Calcium 8.3 L, Total Bilirubin 0.60, AST 42 H, ALT 36, Alkaline Phosphatase 89, Total Protein 7.0, Albumin 2.3 L, Globulin 4.7 H, Albumin/Globulin Ratio 0.5 L 04/06/21 11:13: POC Glucose 402 H 04/06/21 16:58: POC Glucose 314 H 04/07/21 00:06: POC Glucose 334 H 04/07/21 07:09: WBC 7.9, RBC 4.63, Hgb 13.8, Hct 40.6, MCV 87.7, MCH 29.8, MCHC 34.0, RDW Std Deviation 38.9, RDW Coeff of Eben 12.1, Plt Count 208, MPV 10.5 04/07/21 07:43: POC Glucose 338 H Micro: Microbiology 04/04/21 07:49 Mucosa - Nasopharyngeal Respiratory Panel (PCR) - Final 04/04/21 08:50 Urine, Clean Catch Legionella Antigen - Final 04/04/21 08:50 Urine, Clean Catch Streptococcus pneumoniae Antigen (M - Final Physical Exam Const alert General Appearance: cooperative, ill appearing and on BiPAP HEENT normocephalic and head/scalp atraumatic Eyes PERRL, EOMs intact bilaterally and conjunctivae normal Neck supple General: trachea midline Chest inspection of chest normal Resp Effort and Inspection: tachypneic; Negative for labored Auscultation: diminished lung sounds Cardio regular rate and regular rhythm GI normal to inspection, nondistended, normoactive bowel sounds Extremity no clubbing, cyanosis or edema Skin no rashes or lesions noted Neuro CN's II-XII intact bilaterally, moves all extremities and no focal motor deficits Psych Mood & Affect: flat affect Charges/Coding Visit Charges Inpatient E&M: 82516 Subs Hosp L3
--- NOTE | 2021-04-07 09:29 | NURSING ---
report called to Sumaya TOLEDO.
--- NOTE | 2021-04-07 10:12 | NURSING ---
0950 transferred to ICU.
--- NOTE | 2021-04-07 10:19 | PN.HOSP_ITS ---
Subjective Subjective Patient seen and examined. He was on BiPAP at time of review. He was tachypneic. He had no active complaints and review of systems otherwise negative. He was started on baricitinib per ID yesterday. Patient emergently transferred to ICU at request of critical care attending due to his compromised respiratory status. Objective Data Objective Data Vital Signs: Vital Signs Temp Pulse Resp BP Pulse Ox 97.4 F L 73 22 H 117/62 92 04/07/21 07:45 04/07/21 09:55 04/07/21 09:55 04/07/21 07:45 04/07/21 09:55 Oxygen Flow Rate (L/min) 15 Oxygen Delivery Method Bi-pap Weight: 184 lb 8.43 oz Body Mass Index (BMI) 0.0 Intake & Output: Intake and Output for Last 24 Hours 04/05/21 04/06/21 04/07/21 23:59 23:59 23:59 Intake Total 450 / 450 1100 / 1100 300 / 300 Output Total 450 / 450 400 / 400 Balance 0 / 0 1100 / 900 -100 / -100 Lab / Micro Data Result Diagrams: 04/07/21 07:09 04/06/21 08:45 Labs: Laboratory Results - last 24 hr 04/06/21 07:47: POC Glucose 317 H 04/06/21 11:13: POC Glucose 402 H 04/06/21 16:58: POC Glucose 314 H 04/07/21 00:06: POC Glucose 334 H 04/07/21 07:09: WBC 7.9, RBC 4.63, Hgb 13.8, Hct 40.6, MCV 87.7, MCH 29.8, MCHC 34.0, RDW Std Deviation 38.9, RDW Coeff of Eben 12.1, Plt Count 208, MPV 10.5 04/07/21 07:43: POC Glucose 338 H Micro: Microbiology 04/04/21 07:49 Mucosa - Nasopharyngeal Respiratory Panel (PCR) - Final 04/04/21 08:50 Urine, Clean Catch Legionella Antigen - Final 04/04/21 08:50 Urine, Clean Catch Streptococcus pneumoniae Antigen (M - Fin al Physical Exam Const alert, oriented x3 and no apparent distress Orientation / Consciousness: lethargic Exam Limitations: no limitations HEENT head/scalp atraumatic and moist oral mucous membranes Head and Scalp: normocephalic Eyes PERRL, EOMs intact bilaterally and conjunctivae normal Neck no lymphadenopathy Resp Resp Narrative: tachypneic, bilateral crackles. No wheezes. on BIPAP Cardio regular rate, regular rhythm, S1 normal heart sound, S2 normal heart sound and no murmurs GI normal to inspection, nondistended, normoactive bowel sounds, soft to palpation, non-tender and non-distended Extremity normal to inspection, full ROM and no clubbing, cyanosis or edema Peripheral Pulses: Yes pulses 2+ throughout Skin no rashes or lesions noted Neuro oriented x3, CN's II-XII intact bilaterally and moves all extremities Sensorium / Orientation: awake and alert Psych affect normal Assessment & Plan Assessment/Plan (1) Pneumonia due to COVID-19 virus: (2) Hypoxia: PLAN: #Acute hypoxic respiratory failure due to COVID 19 pneumonia * now on BIPAP. * being emergently transferred to the ICU * ID on board; started on baricitinib yesterday * on decadron. On remdesivir * titrate oxygen to maintain sats >90% * breathing treatment with bronchodilators * pulmonology on board. * #Hypokalemia: resolved #CAD * on aspirin and plavix as well as statin and metoprolol * 2D echo (03/30/2021): EF of 55-60%, with normal LV systolic function * #Hypertension: On amlodipine, metoprolol, lisinopril and IV hydralazine as need ed #Hyperlipidemia: On statin #Anxiety and depression: On BuSpar and sertraline #TYpe 2 diabetes melllitus with neuropathy * on Victoza * ISS. Accuchecks ACHS. * on gabapentin * #SEBASTIAN: on CPAP qhs #BPH: on flomax DVT prophylaxis: lovenox 30mg bid Disposition: transferred to ICU today Charges/Coding Visit Charges Inpatient E&M: 76703 Subs Hosp L3
[2021-04-07] MEDS: dexAMETHasone 10 MG/ML Vial 6 MG IV (12:42)
[2021-04-07] MEDS: Metoprolol Tartrate 50 MG Tablet 150 MG PO ×3 (12:43→21:13)
[2021-04-07] MEDS: Pregabalin 50 MG Capsule 100 MG PO ×3 (12:43→21:14)
[2021-04-07] MEDS: Tamsulosin HCl 0.4 MG Capsule PO (12:44)
[2021-04-07] MEDS: Aspirin 81 MG TAB.CHEW PO (12:44)
[2021-04-07] MEDS: Clopidogrel Bisulfate 75 MG Tablet PO (12:44)
[2021-04-07] MEDS: Sertraline 50 MG Tablet 150 MG PO (12:44)
[2021-04-07] MEDS: Enoxaparin 30 MG/0.3 ML Syringe SC ×3 (12:45→21:12)
[2021-04-07] MEDS: Modafinil 200 MG Tablet PO (14:27)
[2021-04-07] MEDS: amLODIPine 10 MG Tablet PO (14:27)
[2021-04-07] MEDS: Lisinopril 20 MG Tablet PO (14:27)
[2021-04-07 14:37] LABS: Bedside Glucose 286 mg/dL (70-110)
[2021-04-07] MEDS: busPIRone 5 MG Tablet 10 MG PO ×2 (21:13)
[2021-04-07] MEDS: Atorvastatin Calcium 40 MG Tablet PO ×2 (21:13)
[2021-04-07] MEDS: Nortriptyline 10 MG Capsule 20 MG PO ×2 (21:14)
[2021-04-08] VITALS (35 sets, daily range): BP systolic 81–151; BP diastolic 56–97; PULSE 62–76; RESP 11–24; TEMP 36.7–37.4; O2SAT 87–98
[2021-04-08] MEDS: Insulin Lispro 100 UNIT/ML INSULN.PEN SC ×4 (00:44→21:55)
[2021-04-08 00:56] LABS: Bedside Glucose 231 mg/dL (70-110)
--- NOTE | 2021-04-08 05:31 | PCM.PN.INT ---
Objective Data Objective Data Vital Signs: Vital Signs Temp Pulse Resp BP Pulse Ox 98.2 F 65 17 108/68 93 04/08/21 04:00 04/08/21 04:45 04/08/21 04:45 04/08/21 04:00 04/08/21 04:45 Oxygen Flow Rate (L/min) 15 Oxygen Delivery Method Bi-pap Weight: 82.3 kg Body Mass Index (BMI) 0.0 Intake & Output: Intake and Output for Last 24 Hours 04/06/21 04/07/21 04/08/21 23:59 23:59 23:59 Intake Total 1100 / 1100 687.75 / 687.75 108.25 / 108.25 Output Total 1275 / 1275 Balance 1100 / 900 -587.25 / -587.25 108.25 / 108.25 Lab / Micro Data Result Diagrams: 04/07/21 07:09 04/06/21 08:45 Labs: Laboratory Results - last 24 hr 04/07/21 07:09: WBC 7.9, RBC 4.63, Hgb 13.8, Hct 40.6, MCV 87.7, MCH 29.8, MCHC 34.0, RDW Std Deviation 38.9, RDW Coeff of Eben 12.1, Plt Count 208, MPV 10.5 04/07/21 07:43: POC Glucose 338 H 04/07/21 12:28: POC Glucose 286 H 04/07/21 17:35: POC Glucose 231 H Micro: Microbiology 04/04/21 07:49 Mucosa - Nasopharyngeal Respiratory Panel (PCR) - Final 04/04/21 08:50 Urine, Clean Catch Legionella Antigen - Final 04/04/21 08:50 Urine, Clean Catch Streptococcus pneumoniae Antigen (M - Final
[2021-04-08 06:21] LABS: Absolute Lymphocyte Count 0.99 X10^3/uL (0.83-4.51); Absolute Neutrophil Count 7.1 X10^3/uL (2.0-7.7); Basophil# 0.02 X10^3/uL; Basophil% 0.2 % (0-1); Hemoglobin 14.2 g/dL (13.0-16.5); Lymphocyte # 0.99 X10^3/ul (0.83-4.51); Lymphocyte % 11.6 % (19-41); Mean Corp Hgb Conc 33.8 g/dL (32-36); Mean Corpuscular Hgb 28.9 pg (27.0-32.0); Mean Corpuscular Volume 85.4 fL (80-94); Mean Platelet Vol. 10.1 fl (6.2-12.0); Monocyte# 0.34 X10^3/uL; NRBC Flagged by Analyzer 0 % (0-5); Neutrophil # 7.13 X10^3/uL (2.7-7.7); Neutrophil % 83.3 % (47-70); POSITIVE MORPHOLOGY YES; Platelet Count 278 K/mm3 (150-450); RBC Distribution Width CV 11.9 % (11.6-14.6); Red Blood Count 4.92 M/mm3 (4.6-6.2); White Blood Count 8.6 K/mm3 (4.4-11.0)
[2021-04-08 06:30] LABS: Differential Indicated SCAN CRITERIA MET
[2021-04-08 06:34] LABS: Anion Gap 5 (5-15); BUN 38 mg/dL (7-18); BUN/Creat Ratio 36.2 RATIO (10-20); Calcium,Total 8.1 mg/dL (8.5-10.1); Chloride 106 mmol/L (98-107); Creatinine, Serum 1.05 mg/dL (0.70-1.30); EST Glomerular Filtration Rate 75 mL/min (>60); Est Glom Filt Rate - Afr Amer 91 mL/min (>60); Estimated Creatinine Clearance 63.29 ml/min; Glucose 200 mg/dL (74-106); Potassium 4.5 mmol/L (3.5-5.1); Sodium Level 140 mmol/L (136-145)
--- NOTE | 2021-04-08 06:38 | PN.CC_ITS ---
Assessment & Plan Assessment/Plan (1) Pneumonia due to COVID-19 virus: PLAN: RECOMMENDATIONS: 1. Continue Airvo heated high flow throughout the day. Wean FiO2 to maintain oxygen saturations at or above 90%. 2. Continue AVAPS therapy, at a minimum, on a nightly basis. 3. Continue remdesivir, Decadron, Lovenox and baricitinib as ordered. 4. Continue empiric antimicrobials. 5. Awake prone positioning was encouraged. 6. Diuretics, as needed, to maintain euvolemic state. IMPRESSIONS: 1. Acute hypoxemic respiratory failure secondary to COVID-19 pneumonia The patient presented to the hospital with worsening dyspnea and hypoxemia, having previously been diagnosed with COVID-19 pneumonia with symptom onset sometime around March 27. The patients oxygenation status worsened with time. He has already been initiated on remdesivir, Decadron and Lovenox. Following evaluation by infectious diseases, the patient was initiated on baricitinib. His current renal status would preclude the use of diuretics. The patient was ultimately transferred to the ICU on April 07 with increasing oxygen demand. For now, it is reasonable to continue the patient on heated high flow throughout the day to maintain oxygen saturations at or above 90%. I would recommend that he be continued on AVAPS therapy, at a minimum, on a nightly basis. 2. Acute kidney injury Improving. Likely prerenal in etiology. Continue to monitor urine output for now. No current indication for renal replacement therapy. Avoid nephrotoxic medications. 3. Hypertension/hyperlipidemia/anxiety/depression/diabetes mellitus/sleep apnea/hypothyroidism Complicates care, management, recovery and prognosis. Continue home medications as indicated. This note was generated with [employer] dictation software. It may contain incorrect words, spelling, and punctuation that were not noted in checking the note before signing. Subjective Subjective The patient was seen and examined at the bedside this morning. Events from the last 24 hours have been reviewed. The patient is currently afebrile, hemodynamically stable and maintaining appropriate oxygen saturations on Airvo heated high flow. The patient did have to be transferred to the ICU yesterday due to rapidly worsening respiratory status and increasing oxygen demand. He was maintained on AVAPS therapy overnight without complication. The patient remains on remdesivir, empiric antimicrobials, Decadron, prophylactic Lovenox and baricitinib. Creatinine has improved to 1.05. Objective Data Objective Data The patient's most recent lab work, culture data and imaging studies have all been personally reviewed. Strep and urine Legionella antigens were negative. Respiratory viral panel was negative. Vital Signs: Vital Signs Temp Pulse Resp BP Pulse Ox 98.1 F 65 17 142/77 H 96 04/08/21 05:00 04/08/21 06:25 04/08/21 06:25 04/08/21 06:25 04/08/21 06:25 Oxygen Flow Rate (L/min) 15 Oxygen Delivery Method Bi-pap Weight: 82.3 kg Body Mass Index (BMI) 0.0 Intake & Output: Intake and Output for Last 24 Hours 04/06/21 04/07/21 04/08/21 23:59 23:59 23:59 Intake Total 1100 / 1100 687.75 / 687.75 168.25 / 168.25 Output Total 1275 / 1275 300 / 300 Balance 1100 / 900 -587.25 / -587.25 -131.75 / -131.75 Lab / Micro Data Attestation: I reviewed the patient's lab results. Result Diagrams: 04/08/21 05:25 04/08/21 05:25 Labs: Laboratory Results - last 24 hr 04/07/21 07:09: WBC 7.9, RBC 4.63, Hgb 13.8, Hct 40.6, MCV 87.7, MCH 29.8, MCHC 34.0, RDW Std Deviation 38.9, RDW Coeff of Eben 12.1, Plt Count 208, MPV 10.5 04/07/21 07:43: POC Glucose 338 H 04/07/21 12:28: POC Glucose 286 H 04/07/21 17:35: POC Glucose 231 H 04/08/21 05:25: WBC 8.6, RBC 4.92, Hgb 14.2, Hct 42.0, MCV 85.4, MCH 28.9, MCHC 33.8, RDW Std Deviation 37.0, RDW Coeff of Eben 11.9, Plt Count 278, MPV 10.1, Immature Gran % (Auto) 0.900, Neut % (Auto) 83.3 H, Lymph % (Auto) 11.6 L, [place] % (Auto) 4.0, Eos % (Auto) 0.0, Baso % (Auto) 0.2, Absolute Neuts (auto) 7.1, Absolute Lymphs (auto) 0.99, Nucleated RBC % 0 04/08/21 05:25: Sodium 140, Potassium 4.5, Chloride 106, Carbon Dioxide 29.0, Anion Gap 5, BUN 38 H, Creatinine 1.05, Estim Creat Clear Calc 63.29, Est GFR (MDRD) Af Amer 91, Est GFR (MDRD) Non-Af 75, BUN/Creatinine Ratio 36.2 H, Glu cose 200 H, Calcium 8.1 L Micro: Microbiology 04/04/21 07:49 Mucosa - Nasopharyngeal Respiratory Panel (PCR) - Final 04/04/21 08:50 Urine, Clean Catch Legionella Antigen - Final 04/04/21 08:50 Urine, Clean Catch Streptococcus pneumoniae Antigen (M - Final Physical Exam Const alert Constitutional Narrative: Currently tolerating Airvo heated high flow. General Appearance: cooperative and ill appearing HEENT normocephalic and head/scalp atraumatic Eyes PERRL, EOMs intact bilaterally and conjunctivae normal Neck supple General: trachea midline Chest inspection of chest normal Resp Effort and Inspection: tachypneic; Negative for labored Auscultation: diminished lung sounds; Negative for rales, rhonchi or wheezes Cardio regular rate and regular rhythm GI normal to inspection, nondistended, normoactive bowel sounds Extremity no clubbing, cyanosis or edema Skin no rashes or lesions noted Neuro CN's II-XII intact bilaterally, moves all extremities and no focal motor deficits Psych Mood & Affect: flat affect Charges/Coding Visit Charges Inpatient E&M: 08458 Subs Hosp L3
[2021-04-08 06:57] LABS: Atypical Lymphocyte RARE %; Differential Comment SCANNED
[2021-04-08] MEDS: Enoxaparin 30 MG/0.3 ML Syringe SC ×2 (10:15→21:48)
[2021-04-08] MEDS: Pregabalin 50 MG Capsule 100 MG PO ×2 (10:15→21:47)
[2021-04-08] MEDS: dexAMETHasone 10 MG/ML Vial 6 MG IV (10:15)
[2021-04-08] MEDS: Lisinopril 20 MG Tablet PO (10:16)
[2021-04-08] MEDS: Modafinil 200 MG Tablet PO (10:16)
[2021-04-08] MEDS: Aspirin 81 MG TAB.CHEW PO (10:16)
[2021-04-08] MEDS: Tamsulosin HCl 0.4 MG Capsule PO (10:16)
[2021-04-08] MEDS: amLODIPine 10 MG Tablet PO (10:16)
[2021-04-08] MEDS: Clopidogrel Bisulfate 75 MG Tablet PO (10:16)
[2021-04-08] MEDS: Metoprolol Tartrate 50 MG Tablet 150 MG PO ×2 (10:16→21:47)
[2021-04-08] MEDS: Sertraline 50 MG Tablet 150 MG PO (10:16)
--- NOTE | 2021-04-08 11:19 | PN.HOSP_ITS ---
Subjective Subjective Patient seen and examined. He was alert but did look lethargic. He was now on air Vo. He has remained more dynamically stable otherwise. He had no active complaints and review of systems otherwise negative. Objective Data Objective Data Vital Signs: Vital Signs Temp Pulse Resp BP Pulse Ox 98.0 F 72 15 136/76 H 94 04/08/21 08:00 04/08/21 10:16 04/08/21 08:00 04/08/21 10:16 04/08/21 09:00 Oxygen Flow Rate (L/min) 60 Oxygen Delivery Method Airvo Weight: 181 lb 7.047 oz Body Mass Index (BMI) 0.0 Intake & Output: Intake and Output for Last 24 Hours 04/06/21 04/07/21 04/08/21 23:59 23:59 23:59 Intake Total 1100 / 1100 687.75 / 687.75 218.25 / 218.25 Output Total 1275 / 1275 300 / 300 Balance 1100 / 900 -587.25 / -587.25 -81.75 / -81.75 Lab / Micro Data Result Diagrams: 04/08/21 05:25 04/08/21 05:25 Labs: Laboratory Results - last 24 hr 04/07/21 12:28: POC Glucose 286 H 04/07/21 17:35: POC Glucose 231 H 04/08/21 05:25: WBC 8.6, RBC 4.92, Hgb 14.2, Hct 42.0, MCV 85.4, MCH 28.9, MCHC 33.8, RDW Std Deviation 37.0, RDW Coeff of Eben 11.9, Plt Count 278, MPV 10.1, Immature Gran % (Auto) 0.900, Neut % (Auto) 83.3 H, Lymph % (Auto) 11.6 L, [place] % (Auto) 4.0, Eos % (Auto) 0.0, Baso % (Auto) 0.2, Absolute Neuts (auto) 7.1, Absolute Lymphs (auto) 0.99, Nucleated RBC % 0, Differential Comment SCANNED, Atypical Lymphocytes RARE 04/08/21 05:25: Sodium 140, Potassium 4.5, Chloride 106, Carbon Dioxide 29.0, Anion Gap 5, BUN 38 H, Creatinine 1.05, Estim Creat Clear Calc 63.29, Est GFR (MDRD) Af Amer 91, Est GFR (MDRD) Non-Af 75, BUN/Creatinine Ratio 36.2 H, Glucose 200 H, Calcium 8.1 L Micro: Microbiology 04/04/21 07:49 Mucosa - Nasopharyngeal Respiratory Panel (PCR) - Final 04/04/21 08:50 Urine, Clean Catch Legionella Antigen - Final 04/04/21 08:50 Urine, Clean Catch Streptococcus pneumoniae Antigen (M - Final Physical Exam Const alert, oriented x3 and no apparent distress Orientation / Consciousness: lethargic Exam Limitations: no limitations HEENT head/scalp atraumatic and moist oral mucous membranes Eyes PERRL, EOMs intact bilaterally and conjunctivae normal Neck no lymphadenopathy Resp Resp Narrative: tachypneic, bilateral crackles. No wheezes. on AirVO Cardio regular rate, regular rhythm, S1 normal heart sound, S2 normal heart sound and no murmurs GI normal to inspection, nondistended, normoactive bowel sounds, soft to palpation, non-tender and non-distended Extremity normal to inspection, full ROM and no clubbing, cyanosis or edema Skin no rashes or lesions noted Neuro oriented x3, CN's II-XII intact bilaterally and moves all extremities Sensorium / Orientation: awake and alert Psych affect normal Assessment & Plan Assessment/Plan (1) Pneumonia due to COVID-19 virus: (2) Hypoxia: PLAN: #Acute hypoxic respiratory failure due to COVID 19 pneumonia * emergently transferred to the ICU yesterday * now on AirVo * on baricitinib, decadron and remdesivir. * started on zosyn due to concerns for superimposed bacterial pneumonia * titrate oxygen to maintain sats >90% * breathing treatment with bronchodilators * pulmonology on board. * diurese prn to maintain euvolemic status. #CAD * on aspirin and plavix as well as statin and metoprolol * 2D echo (03/30/2021): EF of 55-60%, with normal LV systolic function * #Hypertension: On amlodipine, metoprolol, lisinopril and IV hydralazine as needed #Hyperlipidemia: On statin #Anxiety and depression: On BuSpar and sertraline #TYpe 2 diabetes melllitus with neuropathy * on Victoza * ISS. Accuchecks ACHS. * on gabapentin * #SEBASTIAN: on CPAP qhs #BPH: on flomax DVT prophylaxis: lovenox 30mg bid Charges/Coding Visit Charges Inpatient E&M: 13048 Subs Hosp L3
[2021-04-08 11:45] LABS: Bedside Glucose 222 mg/dL (70-110)
[2021-04-08 12:05] LABS: Bedside Glucose 148 mg/dL (70-110)
--- NOTE | 2021-04-08 13:36 | CPS ---
Patient keeps removing he AIRVO cannula from his nose and placing it on the bridge of his nose or on is forehead. Needs frequent reminders to leave it in his nose.
[2021-04-08 16:55] LABS: Bedside Glucose 274 mg/dL (70-110)
[2021-04-08] MEDS: Atorvastatin Calcium 40 MG Tablet PO (21:47)
[2021-04-08] MEDS: busPIRone 5 MG Tablet 10 MG PO (21:47)
[2021-04-08] MEDS: Nortriptyline 10 MG Capsule 20 MG PO (21:48)
[2021-04-08 23:40] LABS: Bedside Glucose 288 mg/dL (70-110)
[2021-04-09] VITALS (36 sets, daily range): BP systolic 110–145; BP diastolic 61–107; PULSE 60–88; RESP 12–26; TEMP 36.8–38.2; O2SAT 87–99
[2021-04-09 05:38] LABS: Hematocrit 41.5 % (40-54); Hemoglobin 14.3 g/dL (13.0-16.5); Mean Corp Hgb Conc 34.5 g/dL (32-36); Mean Corpuscular Hgb 29.4 pg (27.0-32.0); Mean Corpuscular Volume 85.2 fL (80-94); Mean Platelet Vol. 9.9 fl (6.2-12.0); Platelet Count 291 K/mm3 (150-450); RBC Distribution Width CV 11.7 % (11.6-14.6); RBC Distribution Width SD 36.2 fl (35.1-43.9); Red Blood Count 4.87 M/mm3 (4.6-6.2); White Blood Count 7.8 K/mm3 (4.4-11.0)
[2021-04-09 05:57] LABS: ALB/GLOB Ratio 0.5 RATIO (0.9-2.4); AST(SGOT) 36 U/L (15-37); Alanine Aminotransfer ALT/SGPT 36 U/L (16-61); Albumin, Serum 2.1 g/dL (3.2-5.0); Alkaline Phosphatase 100 U/L (45-117); Anion Gap 6 (5-15); BUN 34 mg/dL (7-18); BUN/Creat Ratio 33.7 RATIO (10-20); Calcium,Total 8.2 mg/dL (8.5-10.1); Chloride 101 mmol/L (98-107); Creatinine, Serum 1.01 mg/dL (0.70-1.30); EST Glomerular Filtration Rate 79 mL/min (>60); Est Glom Filt Rate - Afr Amer 95 mL/min (>60); Globulin 4.5 g/dL (2.2-4.2); Glucose 204 mg/dL (74-106); Potassium 4.3 mmol/L (3.5-5.1); Protein, Total 6.6 g/dL (6.4-8.2); Sodium Level 136 mmol/L (136-145)
--- NOTE | 2021-04-09 07:00 | PN.CC_ITS ---
Assessment & Plan Assessment/Plan (1) Pneumonia due to COVID-19 virus: PLAN: RECOMMENDATIONS: 1. Continue Airvo heated high flow throughout the day. Wean FiO2 to maintain oxygen saturations at or above 90%. 2. Continue AVAPS therapy, at a minimum, on a nightly basis. 3. Completed Remdesivir. Continue Decadron, Lovenox and baricitinib as ordered. 4. Continue empiric antimicrobials. 5. Awake prone positioning was encouraged. 6. Diuretics, as needed, to maintain euvolemic state. IMPRESSIONS: 1. Acute hypoxemic respiratory failure secondary to COVID-19 pneumonia The patient presented to the hospital with worsening dyspnea and hypoxemia, having previously been diagnosed with COVID-19 pneumonia with symptom onset sometime around March 27. The patients oxygenation status worsened with time. He has already completed remdesivir. Continue Decadron and Lovenox. Following evaluation by infectious diseases, the patient was initiated on baricitinib. His current renal status would preclude the use of diuretics for another 24 hours. The patient was ultimately transferred to the ICU on April 07 with increasing oxygen demand. For now, it is reasonable to continue the patient on heated high flow throughout the day to maintain oxygen saturations at or above 90%. I would recommend that he be continued on AVAPS therapy, at a minimum, on a nightly basis. 2. Acute kidney injury Improving slowly. Likely prerenal in etiology. Continue to monitor urine output for now. No current indication for renal replacement therapy. Avoid nephrotoxic medications. Likely challenge with diuretics tomorrow 3. Hypertension/hyperlipidemia/anxiety/depression/diabetes mellitus/sleep apnea/hypothyroidism Complicates care, management, recovery and prognosis. Continue home medications as indicated. This note was generated with [employer] dictation software. It may contain incorrect words, spelling, and punctuation that were not noted in checking the note before signing. Subjective Subjective Patient did okay overnight. Patient is not reporting any dyspnea or pain this morning. Nursing continues to report confusion. Patient did have a bowel movement yesterday. Patient able to tolerate BiPAP with sleep, but has been on Airvo during the day. Objective Data Objective Data Vital Signs: Vital Signs Temp Pulse Resp BP Pulse Ox 36.9 C 72 18 138/78 H 90 04/09/21 06:00 04/09/21 06:00 04/09/21 06:00 04/09/21 06:00 04/09/21 06:00 Oxygen Flow Rate (L/min) 60 Oxygen Delivery Method Bi-pap Weight: 82.7 kg Body Mass Index (BMI) 0.0 Intake & Output: Intake and Output for Last 24 Hours 04/07/21 04/08/21 04/09/21 23:59 23:59 23:59 Intake Total 687.75 / 687.75 632.00 / 632.00 74.75 / 74.75 Output Total 1275 / 1275 1175 / 1175 500 / 500 Balance -587.25 / -587.25 -543.00 / -543.00 -425.25 / -425.25 Lab / Micro Data Result Diagrams: 04/09/21 03:50 04/09/21 03:50 Labs: Laboratory Results - last 24 hr 04/08/21 00:42: POC Glucose 222 H 04/08/21 11:52: POC Glucose 148 H 04/08/21 16:47: POC Glucose 274 H 04/08/21 21:46: POC Glucose 288 H 04/09/21 03:50: WBC 7.8, RBC 4.87, Hgb 14.3, Hct 41.5, MCV 85.2, MCH 29.4, MCHC 34.5, RDW Std Deviation 36.2, RDW Coeff of Eben 11.7, Plt Count 291, MPV 9.9 04/09/21 03:50: Sodium 136, Potassium 4.3, Chloride 101, Carbon Dioxide 29.0, Anion Gap 6, BUN 34 H, Creatinine 1.01, Estim Creat Clear Calc 65.80, Est GFR (MDRD) Af Amer 95, Est GFR (MDRD) Non-Af 79, BUN/Creatinine Ratio 33.7 H, Glucose 204 H, Calcium 8.2 L, Total Bilirubin 0.90, AST 36, ALT 36, Alkaline Phosphatase 100, Total Protein 6.6, Albumin 2.1 L, Globulin 4.5 H, Albumin/Globulin Ratio 0.5 L Micro: Microbiology 04/04/21 07:49 Mucosa - Nasopharyngeal Respiratory Panel (PCR) - Final 04/04/21 08:50 Urine, Clean Catch Legionella Antigen - Final 04/04/21 08:50 Urine, Clean Catch Streptococcus pneumoniae Antigen (M - Final Physical Exam Const alert Constitutional Narrative: Currently tolerating BiPAP with sleep General Appearance: cooperative HEENT normocephalic and head/scalp atraumatic Eyes PERRL, EOMs intact bilaterally and conjunctivae normal Neck supple General: trachea midline Chest inspection of chest normal Chest: symmetrical chest wall rise; Negative for crepitus Resp Effort and Inspection: tachypneic; Negative for labored Auscultation: diminished lung sounds; Negative for rales, rhonchi or wheezes Cardio regular rate and regular rhythm GI normal to inspection, nondistended, normoactive bowel sounds Extremity no clubbing, cyanosis or edema Skin no rashes or lesions noted Neuro CN's II-XII intact bilaterally, moves all extremities and no focal motor deficits Psych Mood & Affect: flat affect Charges/Coding Visit Charges Inpatient E&M: 79554 Subs Hosp L3
[2021-04-09] MEDS: Enoxaparin 30 MG/0.3 ML Syringe SC ×2 (08:51→20:57)
[2021-04-09] MEDS: Metoprolol Tartrate 50 MG Tablet 150 MG PO ×2 (08:51→20:58)
[2021-04-09] MEDS: Sertraline 50 MG Tablet 150 MG PO (08:52)
[2021-04-09] MEDS: Pregabalin 50 MG Capsule 100 MG PO ×2 (08:52→20:58)
[2021-04-09] MEDS: Lisinopril 20 MG Tablet PO (08:53)
[2021-04-09] MEDS: Tamsulosin HCl 0.4 MG Capsule PO (08:53)
[2021-04-09] MEDS: Aspirin 81 MG TAB.CHEW PO (08:53)
[2021-04-09] MEDS: amLODIPine 10 MG Tablet PO (08:54)
[2021-04-09] MEDS: Clopidogrel Bisulfate 75 MG Tablet PO (08:54)
[2021-04-09] MEDS: Insulin Lispro 100 UNIT/ML INSULN.PEN SC ×4 (08:57→21:12)
--- NOTE | 2021-04-09 10:32 | PN.HOSP_ITS ---
Subjective Subjective Patient seen and examined. He remains on BIPAP. He was alert but lethargic. He had no active complaints. He is tachypneic, but vitals are otherwise stable. Review of systems otherwise negative. Objective Data Objective Data Vital Signs: Vital Signs Temp Pulse Resp BP Pulse Ox 99.8 F H 80 26 H 121/97 H 95 04/09/21 09:00 04/09/21 09:51 04/09/21 09:51 04/09/21 09:00 04/09/21 09:51 Oxygen Flow Rate (L/min) 60 Oxygen Delivery Method Airvo Weight: 182 lb 5.156 oz Body Mass Index (BMI) 0.0 Intake & Output: Intake and Output for Last 24 Hours 04/07/21 04/08/21 04/09/21 23:59 23:59 23:59 Intake Total 687.75 / 687.75 632.00 / 632.00 74.75 / 74.75 Output Total 1275 / 1275 1175 / 1175 500 / 500 Balance -587.25 / -587.25 -543.00 / -543.00 -425.25 / -425.25 Lab / Micro Data Result Diagrams: 04/09/21 03:50 04/09/21 03:50 Labs: Laboratory Results - last 24 hr 04/08/21 00:42: POC Glucose 222 H 04/08/21 11:52: POC Glucose 148 H 04/08/21 16:47: POC Glucose 274 H 04/08/21 21:46: POC Glucose 288 H 04/09/21 03:50: WBC 7.8, RBC 4.87, Hgb 14.3, Hct 41.5, MCV 85.2, MCH 29.4, MCHC 34.5, RDW Std Deviation 36.2, RDW Coeff of Eben 11.7, Plt Count 291, MPV 9.9 04/09/21 03:50: Sodium 136, Potassium 4.3, Chloride 101, Carbon Dioxide 29.0, Anion Gap 6, BUN 34 H, Creatinine 1.01, Estim Creat Clear Calc 65.80, Est GFR (MDRD) Af Amer 95, Est GFR (MDRD) Non-Af 79, BUN/Creatinine Ratio 33.7 H, Glucose 204 H, Calcium 8.2 L, Total Bilirubin 0.90, AST 36, ALT 36, Alkaline Phosphatase 100, Total Protein 6.6, Albumin 2.1 L, Globulin 4.5 H, Albumin/Globu haylee Ratio 0.5 L Micro: Microbiology 04/04/21 07:49 Mucosa - Nasopharyngeal Respiratory Panel (PCR) - Final 04/04/21 08:50 Urine, Clean Catch Legionella Antigen - Final 04/04/21 08:50 Urine, Clean Catch Streptococcus pneumoniae Antigen (M - Final Physical Exam Const alert, oriented x3 and no apparent distress Orientation / Consciousness: lethargic Exam Limitations: no limitations HEENT head/scalp atraumatic and moist oral mucous membranes Head and Scalp: normocephalic Eyes PERRL, EOMs intact bilaterally and conjunctivae normal Neck no lymphadenopathy Resp Resp Narrative: tachypneic, bilateral crackles. No wheezes. on BIPAP Cardio regular rate, regular rhythm, S1 normal heart sound, S2 normal heart sound and no murmurs GI normal to inspection, nondistended, normoactive bowel sounds, soft to palpation, non-tender and non-distended Extremity normal to inspection, full ROM and no clubbing, cyanosis or edema Peripheral Pulses: Yes pulses 2+ throughout Skin no rashes or lesions noted Neuro oriented x3, CN's II-XII intact bilaterally and moves all extremities Sensorium / Orientation: awake and alert Psych affect normal Assessment & Plan Assessment/Plan (1) Pneumonia due to COVID-19 virus: (2) Hypoxia: PLAN: #Acute hypoxic respiratory failure due to COVID 19 pneumonia * on BIPAP. Remains tachypneic. * now on AirVo * on baricitinib, decadron and remdesivir. * on zosyn due to concerns for superimposed bacterial pneumonia * titrate oxygen to maintain sats >90% * breathing treatment with bronchodilators * pulmonology on board. * diurese prn to maintain euvolemic status. #CAD * on aspirin and plavix as well as statin and metoprolol * 2D echo (03/30/2021): EF of 55-60%, with normal LV systolic function * #Hypertension: On amlodipine, metoprolol, lisinopril and IV hydralazine as needed #Hyperlipidemia: On statin #Anxiety and depression: On BuSpar and sertraline #TYpe 2 diabetes melllitus with neuropathy * on Victoza * ISS. Accuchecks ACHS. * on gabapentin * #SEBASTIAN: on CPAP qhs #BPH: on flomax DVT prophylaxis: lovenox 30mg bid Charges/Coding Visit Charges Inpatient E&M: 37918 [facility] Hosp L3
[2021-04-09] MEDS: dexAMETHasone 10 MG/ML Vial 6 MG IV (12:42)
[2021-04-09] MEDS: Modafinil 200 MG Tablet PO (12:45)
[2021-04-09 12:55] LABS: Bedside Glucose 217 mg/dL (70-110)
--- NOTE | 2021-04-09 15:16 | PCM.PN.ID ---
Physical Exam Narrative Feeling about the same, no fever, some dyspnea Const no apparent distress Resp clear to auscultation bilaterally Auscultation: diminished lung sounds Cardio regular rate and regular rhythm GI normal to inspection, nondistended, normoactive bowel sounds Skin no rashes or lesions noted ID ID: Route of nutrition/ use of supplements: [] Nutritional Intake: [] IV Site: [] Hartley Catheter: [] Assessment & Plan Assessment/Plan (1) Pneumonia due to COVID-19 virus: PLAN: Sx started 03/28. Isolate until 04/18. Recommend vaccine in next 1-2 months. Unvaccinated. On dex, remdesivir (completed), baricitinib. CT neg for PE, on lovenox 30mg bid. Finishes zosyn tomorrow. Will follow, (2) Hypoxia:
[2021-04-09 16:51] LABS: Bedside Glucose 224 mg/dL (70-110)
[2021-04-09] MEDS: Nortriptyline 10 MG Capsule 20 MG PO (20:58)
[2021-04-09] MEDS: Atorvastatin Calcium 40 MG Tablet PO (20:59)
[2021-04-09] MEDS: busPIRone 5 MG Tablet 10 MG PO (20:59)
[2021-04-10] VITALS (37 sets, daily range): BP systolic 105–142; BP diastolic 61–111; PULSE 60–119; RESP 12–27; TEMP 36.4–37.3; O2SAT 88–100
[2021-04-10 01:12] LABS: Bedside Glucose 198 mg/dL (70-110)
[2021-04-10 05:36] LABS: Absolute Lymphocyte Count 0.51 X10^3/uL (0.83-4.51); Absolute Neutrophil Count 7.4 X10^3/uL (2.0-7.7); Basophil# 0.01 X10^3/uL; Basophil% 0.1 % (0-1); Hematocrit 38.9 % (40-54); Hemoglobin 13.6 g/dL (13.0-16.5); Lymphocyte # 0.51 X10^3/ul (0.83-4.51); Lymphocyte % 6.1 % (19-41); Mean Corpuscular Hgb 29.2 pg (27.0-32.0); Mean Corpuscular Volume 83.5 fL (80-94); Monocyte# 0.36 X10^3/uL; Monocyte% 4.3 % (0-10); NRBC Flagged by Analyzer 0 % (0-5); Neutrophil # 7.41 X10^3/uL (2.7-7.7); POSITIVE DIFFERENTIAL YES; Platelet Count 298 K/mm3 (150-450); RBC Distribution Width CV 11.7 % (11.6-14.6); RBC Distribution Width SD 35.4 fl (35.1-43.9); Red Blood Count 4.66 M/mm3 (4.6-6.2); White Blood Count 8.3 K/mm3 (4.4-11.0)
[2021-04-10 05:37] LABS: Differential Indicated SCAN CRITERIA MET
[2021-04-10 05:49] LABS: ALB/GLOB Ratio 0.4 RATIO (0.9-2.4); AST(SGOT) 25 U/L (15-37); Alanine Aminotransfer ALT/SGPT 30 U/L (16-61); Albumin, Serum 2.2 g/dL (3.2-5.0); Alkaline Phosphatase 92 U/L (45-117); Anion Gap 8 (5-15); BUN 32 mg/dL (7-18); BUN/Creat Ratio 30.8 RATIO (10-20); Calcium,Total 8.4 mg/dL (8.5-10.1); Chloride 101 mmol/L (98-107); Creatinine, Serum 1.04 mg/dL (0.70-1.30); EST Glomerular Filtration Rate 76 mL/min (>60); Est Glom Filt Rate - Afr Amer 92 mL/min (>60); Globulin 4.9 g/dL (2.2-4.2); Glucose 227 mg/dL (74-106); Potassium 4.4 mmol/L (3.5-5.1); Protein, Total 7.1 g/dL (6.4-8.2); Sodium Level 138 mmol/L (136-145)
[2021-04-10 05:57] LABS: Differential Comment SCANNED
--- NOTE | 2021-04-10 07:47 | PCM.PN.INT ---
Assessment & Plan Assessment/Plan (1) Pneumonia due to COVID-19 virus: PLAN: RECOMMENDATIONS: 1. Attempt Airvo heated high flow throughout the day. Wean FiO2 to maintain oxygen saturations at or above 90%. 2. Continue AVAPS therapy, at a minimum, on a nightly basis. 3. Completed Remdesivir. Continue Decadron, Lovenox and baricitinib as ordered. 4. Await ID recommendations to fever 5. Awake prone positioning was encouraged. 6. Diuretics, as needed, to maintain euvolemic state. Challenge today IMPRESSIONS: 1. Acute hypoxemic respiratory failure secondary to COVID-19 pneumonia The patient presented to the hospital with worsening dyspnea and hypoxemia, having previously been diagnosed with COVID-19 pneumonia with symptom onset sometime around March 27. The patients oxygenation status worsened with time. He has already completed remdesivir. Continue Decadron and Lovenox. Following evaluation by infectious diseases, the patient was initiated on baricitinib. His current renal status would preclude the use of diuretics for another 24 hours. The patient was ultimately transferred to the ICU on April 07 with increasing oxygen demand. For now, it is reasonable to continue the patient on heated high flow throughout the day to maintain oxygen saturations at or above 90%. Will attempt patient on Airvo during the day. Patient did have a fever in the last 24 hours and is on baricitinib. ID following. 2. Acute kidney injury Improving slowly. Likely prerenal in etiology. Continue to monitor urine output for now. No current indication for renal replacement therapy. Avoid nephrotoxic medications. We will challenge with diuretics 3. Hypertension/hyperlipidemia/anxiety/depression/diabetes mellitus/sleep apnea/hypothyroidism Complicates care, management, recovery and prognosis. Continue home medications as indicated. This note was generated with [employer] dictation software. It may contain incorrect words, spelling, and punctuation that were not noted in checking the note before signing. Subjective Subjective Patient did okay overnight. Patient did have a bowel movement. Patient did not have much time on Airvo yesterday, but oxygen requirements on BiPAP have not really changed. Patient did have a fever in the last 24 hours, but no hemodynamic instability was reported. Patient continues to be highly variable mental status with some possibility of hallucination. Nursing reporting patient is picking up pills that are not there. Objective Data Objective Data Vital Signs: Vital Signs Temp Pulse Resp BP Pulse Ox 36.4 C L 69 16 129/71 H 93 04/10/21 07:00 04/10/21 07:40 04/10/21 07:12 04/10/21 07:00 04/10/21 07:12 Oxygen Flow Rate (L/min) 60 Oxygen Delivery Method Bi-pap Weight: 82.6 kg Body Mass Index (BMI) 0.0 Intake & Output: Intake and Output for Last 24 Hours 04/08/21 04/09/21 04/10/21 23:59 23:59 23:59 Intake Total 632.00 / 632.00 374.75 / 374.75 50 / 50 Output Total 1175 / 1175 1000 / 1000 475 / 475 Balance -543.00 / -543.00 -625.25 / -625.25 -425 / -425 Lab / Micro Data Result Diagrams: 04/10/21 04:30 04/10/21 04:30 Labs: Laboratory Results - last 24 hr 04/09/21 12:40: POC Glucose 217 H 04/09/21 16:39: POC Glucose 224 H 04/09/21 20:56: POC Glucose 198 H 04/10/21 04:30: WBC 8.3, RBC 4.66, Hgb 13.6, Hct 38.9 L, MCV 83.5, MCH 29.2, MCHC 35.0, RDW Std Deviation 35.4, RDW Coeff of Eben 11.7, Plt Count 298, MPV 10.0, Immature Gran % (Auto) 0.500, Neut % (Auto) 89.0 H, Lymph % (Auto) 6.1 L, [place] % (Auto) 4.3, Eos % (Auto) 0.0, Baso % (Auto) 0.1, Absolute Neuts (auto) 7.4, Absolute Lymphs (auto) 0.51 L, Nucleated RBC % 0, Differential Comment SCANNED 04/10/21 04:30: Sodium 138, Potassium 4.4, Chloride 101, Carbon Dioxide 29.0, Anion Gap 8, BUN 32 H, Creatinine 1.04, Estim Creat Clear Calc 63.90, Est GFR (MDRD) Af Amer 92, Est GFR (MDRD) Non-Af 76, BUN/Creatinine Ratio 30.8 H, Glucose 227 H, Calcium 8.4 L, Total Bilirubin 1.00, AST 25, ALT 30, Alkaline Phosphatase 92, Total Protein 7.1, Albumin 2.2 L, Globulin 4.9 H, Albumin/Globulin Ratio 0.4 L Micro: Microbiology 04/04/21 07:49 Mucosa - Nasopharyngeal Respiratory Panel (PCR) - Final 04/04/21 08:50 Urine, Clean Catch Legionella Antigen - Final 04/04/21 08:50 Urine, Clean Catch Streptococcus pneumoniae Antigen (M - Final Physical Exam Const alert Constitutional Narrative: Currently tolerating BiPAP General Appearance: cooperative and on BiPAP Orientation / Consciousness: oriented to person; Negative for oriented to place or oriented to time HEENT normocephalic and head/scalp atraumatic Eyes PERRL, EOMs intact bilaterally and conjunctivae normal Neck supple General: trachea midline Chest inspection of chest normal Chest: symmetrical chest wall rise; Negative for crepitus Resp Effort and Inspection: Negative for labored Auscultation: diminished lung sounds; Negative for rales, rhonchi or wheezes Cardio regular rate and regular rhythm GI normal to inspection, nondistended, normoactive bowel sounds Extremity no clubbing, cyanosis or edema Skin no rashes or lesions noted Neuro CN's II-XII intact bilaterally, moves all extremities and no focal motor deficits Psych Mood & Affect: flat affect Charges/Coding Visit Charges Inpatient E&M: 26898 Subs Hosp L3
[2021-04-10] MEDS: Insulin Lispro 100 UNIT/ML INSULN.PEN SC ×4 (08:05→22:28)
[2021-04-10] MEDS: Enoxaparin 30 MG/0.3 ML Syringe SC ×2 (08:07→22:29)
[2021-04-10] MEDS: dexAMETHasone 10 MG/ML Vial 6 MG IV (08:08)
[2021-04-10] MEDS: Furosemide 40 MG/4 ML Vial IV (08:10)
[2021-04-10] MEDS: Pregabalin 50 MG Capsule 100 MG PO ×2 (08:15→22:30)
[2021-04-10] MEDS: Sertraline 50 MG Tablet 150 MG PO (08:15)
[2021-04-10] MEDS: Tamsulosin HCl 0.4 MG Capsule PO (08:16)
[2021-04-10] MEDS: Aspirin 81 MG TAB.CHEW PO (08:16)
[2021-04-10] MEDS: Metoprolol Tartrate 50 MG Tablet 150 MG PO ×2 (08:16→22:29)
[2021-04-10] MEDS: Clopidogrel Bisulfate 75 MG Tablet PO (08:17)
[2021-04-10] MEDS: Lisinopril 20 MG Tablet PO (08:17)
[2021-04-10] MEDS: Modafinil 200 MG Tablet PO (08:18)
[2021-04-10] MEDS: amLODIPine 10 MG Tablet PO (08:18)
[2021-04-10] MEDS: CHLORHEXIDINE GLUC 2% CLOTH 1 EACH TOWELETTE TOPICAL (08:42)
--- NOTE | 2021-04-10 10:54 | PCM.PN.ID ---
Physical Exam Narrative Feeling a little better, no fever overnight Const alert General Appearance: cooperative Resp clear to auscultation bilaterally Auscultation: diminished lung sounds Cardio regular rate and regular rhythm GI normal to inspection, nondistended, normoactive bowel sounds Skin no rashes or lesions noted ID ID: Route of nutrition/ use of supplements: [] Nutritional Intake: [] IV Site: [] Hartley Catheter: [] Assessment & Plan Assessment/Plan (1) Pneumonia due to COVID-19 virus: PLAN: Sx started 03/28. Isolate until 04/18. Recommend vaccine in next 1-2 months. Unvaccinated. On dex, remdesivir (completed), baricitinib. CT neg for PE, on lovenox 30mg bid. Low grade fever yesterday afternoon, none overnight. Wbc normal. O2 slowly improving over past few days. Will cont zosyn for now. Will follow, (2) Hypoxia:
[2021-04-10 12:31] LABS: Bedside Glucose 324 mg/dL (70-110)
[2021-04-10 17:00] LABS: Bedside Glucose 430 mg/dL (70-110)
--- NOTE | 2021-04-10 19:56 | PN.HOSP_ITS ---
Subjective Subjective Patient seen and examined today, he is currently on Airvo at the time my examination, he does not complain of any severe shortness of breath at rest, no complaints of any fevers or chills. Objective Data Objective Data Vital Signs: Vital Signs Temp Pulse Resp BP Pulse Ox 99 F 81 18 133/70 H 90 04/10/21 13:00 04/10/21 19:30 04/10/21 19:30 04/10/21 18:00 04/10/21 19:30 Oxygen Flow Rate (L/min) 60 Oxygen Delivery Method Airvo Weight: 82.6 kg Body Mass Index (BMI) 0.0 Intake & Output: Intake and Output for Last 24 Hours 04/08/21 04/09/21 04/10/21 23:59 23:59 23:59 Intake Total 632.00 / 632.00 374.75 / 374.75 1000 / 1000 Output Total 1175 / 1175 1000 / 1000 2375 / 2375 Balance -543.00 / -543.00 -625.25 / -625.25 -1375 / -1375 Lab / Micro Data Result Diagrams: 04/11/21 03:00 04/11/21 03:00 Labs: Laboratory Results - last 24 hr 04/09/21 20:56: POC Glucose 198 H 04/10/21 04:30: WBC 8.3, RBC 4.66, Hgb 13.6, Hct 38.9 L, MCV 83.5, MCH 29.2, MCHC 35.0, RDW Std Deviation 35.4, RDW Coeff of Eben 11.7, Plt Count 298, MPV 10.0, Immature Gran % (Auto) 0.500, Neut % (Auto) 89.0 H, Lymph % (Auto) 6.1 L, [place] % (Auto) 4.3, Eos % (Auto) 0.0, Baso % (Auto) 0.1, Absolute Neuts (auto) 7.4, Absolute Lymphs (auto) 0.51 L, Nucleated RBC % 0, Differential Comment SCANNED 04/10/21 04:30: Sodium 138, Potassium 4.4, Chloride 101, Carbon Dioxide 29.0, Anion Gap 8, BUN 32 H, Creatinine 1.04, Estim Creat Clear Calc 63.90, Est GFR (MDRD) Af Amer 92, Est GFR (MDRD) Non-Af 76, BUN/Creatinine Ratio 30.8 H, Glucose 227 H, Calcium 8.4 L, Total Bilirubin 1.00, AST 25, ALT 30, Alkaline Phosphatase 92, Total Protein 7.1, Albumin 2.2 L, Globulin 4.9 H, Albumin/Globulin Ratio 0.4 L 04/10/21 12:13: POC Glucose 324 H 04/10/21 16:52: POC Glucose 430 H Micro: Microbiology 04/04/21 07:49 Mucosa - Nasopharyngeal Respiratory Panel (PCR) - Final 04/04/21 08:50 Urine, Clean Catch Legionella Antigen - Final 04/04/21 08:50 Urine, Clean Catch Streptococcus pneumoniae Antigen (M - Final Physical Exam Const alert and no apparent distress Constitutional Narrative: Patient exhibits mild confusion General Appearance: cooperative, well kempt and well developed Orientation / Consciousness: awake, oriented to person, oriented to place and oriented to time HEENT normocephalic, head/scalp atraumatic and moist oral mucous membranes Head and Scalp: normocephalic Eyes PERRL, EOMs intact bilaterally and conjunctivae normal Neck nuchal rigidity, supple, no JVD, thyroid normal and no carotid bruits General: trachea midline Resp normal respiratory effort, no retractions, no use of accessory muscles and clear to auscultation bilaterally Auscultation: Negative for rales, rhonchi or wheezes Cardio regular rate, regular rhythm, S1 normal heart sound, S2 normal heart sound, no murmurs, no rub and no gallops GI normal to inspection, nondistended, normoactive bowel sounds, soft to palpation, non-tender and non-distended Extremity normal to inspection and no clubbing, cyanosis or edema Skin no rashes or lesions noted General Skin Exam: no breakdown Neuro CN's II-XII intact bilaterally, no focal motor deficits and no sensory deficits noted Sensorium / Orientation: awake and alert Speech: speech normal Psych thought process normal Psych Narrative: Patient exhibits mild confusion Assessment & Plan Assessment/Plan (1) Pneumonia due to COVID-19 virus: PLAN: 1. COVID-19 pneumonia-patient is currently on dexamethasone and baricitinib, pulmonary medicine is participating in his care as well as infectious diseases #2 acute hypoxic respiratory failure secondary to #1-pulmonary medicine is participating in his care, pulse ox will be monitored #3 type 2 diabetes-blood sugars will be monitored #4 essential hypertension #5 coronary artery disease-stable at this time #6 obstructive sleep apnea #7 hyperlipidemia #8 chronic depression/anxiety Charges/Coding Visit Charges Inpatient E&M: 59557 Subs Hosp L2
[2021-04-10] MEDS: busPIRone 5 MG Tablet 10 MG PO (22:29)
[2021-04-10] MEDS: Nortriptyline 10 MG Capsule 20 MG PO (22:29)
[2021-04-10] MEDS: Atorvastatin Calcium 40 MG Tablet PO (22:30)
[2021-04-10 22:46] LABS: Bedside Glucose 384 mg/dL (70-110)
[2021-04-11] VITALS (40 sets, daily range): BP systolic 92–160; BP diastolic 61–114; PULSE 58–107; RESP 12–24; TEMP 36.2–37.9; O2SAT 86–100
[2021-04-11 03:19] LABS: Hemoglobin 12.7 g/dL (13.0-16.5); Mean Corp Hgb Conc 34.3 g/dL (32-36); Mean Corpuscular Hgb 29.3 pg (27.0-32.0); Mean Corpuscular Volume 85.5 fL (80-94); Mean Platelet Vol. 9.7 fl (6.2-12.0); Platelet Count 321 K/mm3 (150-450); RBC Distribution Width CV 11.5 % (11.6-14.6); RBC Distribution Width SD 35.8 fl (35.1-43.9); Red Blood Count 4.33 M/mm3 (4.6-6.2); White Blood Count 9.4 K/mm3 (4.4-11.0)
[2021-04-11 03:56] LABS: ALB/GLOB Ratio 0.4 RATIO (0.9-2.4); AST(SGOT) 17 U/L (15-37); Alanine Aminotransfer ALT/SGPT 26 U/L (16-61); Albumin, Serum 1.9 g/dL (3.2-5.0); Alkaline Phosphatase 92 U/L (45-117); Anion Gap 7 (5-15); BUN 37 mg/dL (7-18); BUN/Creat Ratio 31.9 RATIO (10-20); Calcium,Total 8.3 mg/dL (8.5-10.1); Chloride 99 mmol/L (98-107); Creatinine, Serum 1.16 mg/dL (0.70-1.30); EST Glomerular Filtration Rate 67 mL/min (>60); Est Glom Filt Rate - Afr Amer 81 mL/min (>60); Estimated Creatinine Clearance 57.29 ml/min; Globulin 4.8 g/dL (2.2-4.2); Glucose 300 mg/dL (74-106); Potassium 3.8 mmol/L (3.5-5.1); Protein, Total 6.7 g/dL (6.4-8.2); Sodium Level 135 mmol/L (136-145)
[2021-04-11] MEDS: Furosemide 40 MG/4 ML Vial IV (05:53)
--- NOTE | 2021-04-11 07:29 | PCM.PN.INT ---
Assessment & Plan Assessment/Plan (1) Pneumonia due to COVID-19 virus: PLAN: RECOMMENDATIONS: 1. Attempt Airvo heated high flow throughout the day. Wean FiO2 to maintain oxygen saturations at or above 90%. 2. Continue AVAPS therapy, at a minimum, on a nightly basis. Increase EPAP by 2. Likely needs sleep study as an outpatient 3. Completed Remdesivir. Continue Decadron (04/14/2021), Lovenox and baricitinib (04/19/2021) as ordered. 4. Continue to monitor off antibiotics 5. Awake prone positioning was encouraged. 6. Diuretics, as needed, to maintain euvolemic state. Challenge today IMPRESSIONS: 1. Acute hypoxemic respiratory failure secondary to COVID-19 pneumonia The patient presented to the hospital with worsening dyspnea and hypoxemia, having previously been diagnosed with COVID-19 pneumonia with symptom onset sometime around March 27. The patients oxygenation status worsened with time. He has already completed remdesivir. Continue Decadron and Lovenox. Following evaluation by infectious diseases, the patient was initiated on baricitinib. His current renal status would preclude the use of diuretics for another 24 hours. The patient was ultimately transferred to the ICU on April 07 with increasing oxygen demand. For now, it is reasonable to continue the patient on heated high flow throughout the day to maintain oxygen saturations at or above 90%. Will attempt patient on Airvo during the day. Patient with periodic desaturation at night, likely secondary to obstructive sleep apnea. EPAP will be increased. 2. Acute kidney injury Improving slowly. Likely prerenal in etiology. Continue to monitor urine output for now. No current indication for renal replacement therapy. Avoid nephrotoxic medications. We will challenge with diuretics 3. Hypertension/hyperlipidemia/anxiety/depression/diabetes mellitus/sleep apnea/hypothyroidism Complicates care, management, recovery and prognosis. Continue home medications as indicated. Blood sugars are currently poorly controlled. Patient will be placed on Lantus. This note was generated with [employer] dictation software. It may contain incorrect words, spelling, and punctuation that were not noted in checking the note before signing. Subjective Subjective Patient did okay overnight. Nursing is reporting improved confusion compared to previous. Patient did have significantly elevated blood sugars. Patient was on BiPAP overnight with periodic desaturations. Objective Data Objective Data Vital Signs: Vital Signs Temp Pulse Resp BP Pulse Ox 36.8 C 64 19 H 141/75 H 90 04/11/21 07:00 04/11/21 07:00 04/11/21 07:00 04/11/21 07:00 04/11/21 07:00 Oxygen Flow Rate (L/min) 60 Oxygen Delivery Method Bi-pap Weight: 82.4 kg Body Mass Index (BMI) 0.0 Intake & Output: Intake and Output for Last 24 Hours 04/09/21 04/10/21 04/11/21 23:59 23:59 23:59 Intake Total 374.75 / 374.75 1050 / 1050 272 / 272 Output Total 1000 / 1000 2375 / 3050 800 / 800 Balance -625.25 / -625.25 -1325 / -2000 -528 / -528 Lab / Micro Data Result Diagrams: 04/11/21 03:00 04/11/21 03:00 Labs: Laboratory Results - last 24 hr 04/10/21 12:13: POC Glucose 324 H 04/10/21 16:52: POC Glucose 430 H 04/10/21 22:26: POC Glucose 384 H 04/11/21 03:00: WBC 9.4, RBC 4.33 L, Hgb 12.7 L, Hct 37.0 L, MCV 85.5, MCH 29.3, MCHC 34.3, RDW Std Deviation 35.8, RDW Coeff of Eben 11.5 L, Plt Count 321, MPV 9.7 04/11/21 03:00: Sodium 135 L, Potassium 3.8, Chloride 99, Carbon Dioxide 29.0, Anion Gap 7, BUN 37 H, Creatinine 1.16, Estim Creat Clear Calc 57.29, Est GFR (MDRD) Af Amer 81, Est GFR (MDRD) Non-Af 67, BUN/Creatinine Ratio 31.9 H, Glucose 300 H, Calcium 8.3 L, Total Bilirubin 0.50, AST 17, ALT 26, Alkaline Phosphatase 92, Total Protein 6.7, Albumin 1.9 L, Globulin 4.8 H, Albumin/Globulin Ratio 0.4 L Micro: Microbiology 04/04/21 07:49 Mucosa - Nasopharyngeal Respiratory Panel (PCR) - Final 04/04/21 08:50 Urine, Clean Catch Legionella Antigen - Final 04/04/21 08:50 Urine, Clean Catch Streptococcus pneumoniae Antigen (M - Final Physical Exam Const alert Constitutional Narrative: Currently tolerating BiPAP General Appearance: cooperative and on BiPAP Orientation / Consciousness: oriented to person; Negative for oriented to place or oriented to time HEENT normocephalic and head/scalp atraumatic Eyes PERRL, EOMs intact bilaterally and conjunctivae normal Neck supple General: trachea midline Chest inspection of chest normal Chest: symmetrical chest wall rise; Negative for crepitus Resp Effort and Inspection: Negative for labored Auscultation: diminished lung sounds; Negative for rales, rhonchi or wheezes Cardio regular rate and regular rhythm GI normal to inspection, nondistended, normoactive bowel sounds Extremity no clubbing, cyanosis or edema Skin no rashes or lesions noted Neuro CN's II-XII intact bilaterally, moves all extremities and no focal motor deficits Psych Mood & Affect: flat affect Charges/Coding Visit Charges Inpatient E&M: 16720 Subs Hosp L3
[2021-04-11] MEDS: dexAMETHasone 10 MG/ML Vial 6 MG IV (08:19)
[2021-04-11] MEDS: Metoprolol Tartrate 50 MG Tablet 150 MG PO ×2 (08:20→22:42)
[2021-04-11] MEDS: Lisinopril 20 MG Tablet PO (08:22)
[2021-04-11] MEDS: Sertraline 50 MG Tablet 150 MG PO (08:22)
[2021-04-11] MEDS: Modafinil 200 MG Tablet PO (08:23)
[2021-04-11] MEDS: amLODIPine 10 MG Tablet PO (08:23)
[2021-04-11] MEDS: Clopidogrel Bisulfate 75 MG Tablet PO (08:23)
[2021-04-11] MEDS: Tamsulosin HCl 0.4 MG Capsule PO (08:23)
[2021-04-11] MEDS: Aspirin 81 MG TAB.CHEW PO (08:23)
[2021-04-11] MEDS: Enoxaparin 30 MG/0.3 ML Syringe SC ×2 (08:26→22:44)
[2021-04-11] MEDS: Pregabalin 50 MG Capsule 100 MG PO ×2 (08:26→22:43)
[2021-04-11] MEDS: CHLORHEXIDINE GLUC 2% CLOTH 1 EACH TOWELETTE TOPICAL (08:28)
[2021-04-11] MEDS: Potassium Chloride Oral Tablet 20 MEQ PO ×2 (08:29→15:14)
[2021-04-11] MEDS: Insulin Lispro 100 UNIT/ML INSULN.PEN SC ×4 (08:33→22:45)
--- NOTE | 2021-04-11 10:51 | CASEMGMT ---
Social Work SW spoke to DONNA Washington at [facility] who confirms pt is service connected for [facility]. Facilities in network with [facility] are [facility] [place], [facility] and [facility]. DONNA will continue to follow for discharge planning and will provide this info to pt and if needed. ANA Summers
[2021-04-11 12:45] LABS: Bedside Glucose 340 mg/dL (70-110)
[2021-04-11 15:20] LABS: Bedside Glucose 337 mg/dL (70-110)
--- NOTE | 2021-04-11 17:18 | PCM.PN.HOSP ---
Subjective Subjective Patient was seen and examined today, he is currently on Airvo, he appears to be comfortable and less confused today. Objective Data Objective Data Vital Signs: Vital Signs Temp Pulse Resp BP Pulse Ox 97.1 F L 71 16 92/67 92 04/11/21 15:00 04/11/21 16:56 04/11/21 15:00 04/11/21 15:00 04/11/21 16:56 Oxygen Flow Rate (L/min) 60 Oxygen Delivery Method Mechanical Ventilator Weight: 82.4 kg Body Mass Index (BMI) 0.0 Intake & Output: Intake and Output for Last 24 Hours 04/09/21 04/10/21 04/11/21 23:59 23:59 23:59 Intake Total 374.75 / 374.75 1050 / 1050 722 / 722 Output Total 1000 / 1000 2375 / 3050 2350 / 2350 Balance -625.25 / -625.25 -1325 / -2000 -1628 / -1628 Lab / Micro Data Result Diagrams: 04/11/21 03:00 04/11/21 03:00 Labs: Laboratory Results - last 24 hr 04/10/21 22:26: POC Glucose 384 H 04/11/21 03:00: WBC 9.4, RBC 4.33 L, Hgb 12.7 L, Hct 37.0 L, MCV 85.5, MCH 29.3, MCHC 34.3, RDW Std Deviation 35.8, RDW Coeff of Eben 11.5 L, Plt Count 321, MPV 9.7 04/11/21 03:00: Sodium 135 L, Potassium 3.8, Chloride 99, Carbon Dioxide 29.0, Anion Gap 7, BUN 37 H, Creatinine 1.16, Estim Creat Clear Calc 57.29, Est GFR (MDRD) Af Amer 81, Est GFR (MDRD) Non-Af 67, BUN/Creatinine Ratio 31.9 H, Glucose 300 H, Calcium 8.3 L, Total Bilirubin 0.50, AST 17, ALT 26, Alkaline Phosphatase 92, Total Protein 6.7, Albumin 1.9 L, Globulin 4.8 H, Albumin/Globulin Ratio 0.4 L 04/11/21 12:27: POC Glucose 340 H 04/11/21 15:11: POC Glucose 337 H Micro: Microbiology 10/20/21 07:49 Mucosa - Nasopharyngeal Respiratory Panel (PCR) - Final 04/04/21 08:50 Urine, Clean Catch Legionella Antigen - Final 04/04/21 08:50 Urine, Clean Catch Streptococcus pneumoniae Antigen (M - Final Physical Exam Const alert, no apparent distress and healthy appearing Constitutional Narrative: Patient exhibits some mild confusion General Appearance: cooperative, well kempt and well developed Orientation / Consciousness: awake, oriented to person, oriented to place and oriented to time HEENT normocephalic, head/scalp atraumatic and moist oral mucous membranes Head and Scalp: normocephalic Eyes PERRL, EOMs intact bilaterally and conjunctivae normal Neck nuchal rigidity, supple, no JVD, thyroid normal and no carotid bruits General: trachea midline Resp normal respiratory effort, no retractions, no use of accessory muscles and clear to auscultation bilaterally Auscultation: Negative for rales, rhonchi or wheezes Cardio regular rate, regular rhythm, S1 normal heart sound, S2 normal heart sound, no murmurs, no rub and no gallops GI normal to inspection, nondistended, normoactive bowel sounds, soft to palpation, non-tender and non-distended Extremity no clubbing, cyanosis or edema Skin no rashes or lesions noted, no wounds and skin turgor normal General Skin Exam: no breakdown Neuro CN's II-XII intact bilaterally, no focal motor deficits and no sensory deficits noted Sensorium / Orientation: awake and alert Speech: speech normal Psych thought process normal Psych Narrative: Patient exhibits mild confusion, he does follow commands Assessment & Plan Assessment/Plan (1) Pneumonia due to COVID-19 virus: PLAN: 1. COVID-19 pneumonia-patient is currently on dexamethasone and baricitinib, pulmonary medicine is participating in his care as well as infectious diseases #2 acute hypoxic respiratory failure secondary to #1-pulmonary medicine is participating in his care, pulse ox will be monitored #3 type 2 diabetes-blood sugars will be monitored #4 essential hypertension #5 coronary artery disease-stable at this time #6 obstructive sleep apnea #7 hyperlipidemia #8 chronic depression/anxiety #9 mild encephalopathy due to #1-patient appears less confused today than yesterday Charges/Coding Visit Charges Inpatient E&M: 94890 Subs Hosp L2
[2021-04-11] MEDS: Nortriptyline 10 MG Capsule 20 MG PO (22:43)
[2021-04-11] MEDS: Atorvastatin Calcium 40 MG Tablet PO (22:43)
[2021-04-11] MEDS: busPIRone 5 MG Tablet 10 MG PO (22:44)
[2021-04-11 23:00] LABS: Bedside Glucose 338 mg/dL (70-110)
[2021-04-12] VITALS (39 sets, daily range): BP systolic 105–151; BP diastolic 58–89; PULSE 53–100; RESP 12–21; TEMP 36.7–37.2; O2SAT 90–98
--- NOTE | 2021-04-12 02:31 | CPS ---
Increased MaxP pressure to 26 for continued worsening tidal volumes observed. Have been ranging 300-350 when asleep. Change resulted in improved VT.
--- NOTE | 2021-04-12 07:57 | PN.CC_ITS ---
Assessment & Plan Assessment/Plan (1) Pneumonia due to COVID-19 virus: PLAN: RECOMMENDATIONS: 1. Continue Airvo heated high flow throughout the day. Wean FiO2 to maintain oxygen saturations at or above 90%. 2. Continue AVAPS therapy, at a minimum, on a nightly basis on the current settings. Likely needs sleep study as an outpatient 3. Completed Remdesivir. Continue Decadron (04/14/2021), Lovenox and baricitinib (04/19/2021) as ordered. 4. Continue to monitor off antibiotics 5. Awake prone positioning was encouraged. 6. Diuretics, as needed, to maintain euvolemic state. Await morning labs IMPRESSIONS: 1. Acute hypoxemic respiratory failure secondary to COVID-19 pneumonia The patient presented to the hospital with worsening dyspnea and hypoxemia, having previously been diagnosed with COVID-19 pneumonia with symptom onset sometime around March 27. The patients oxygenation status worsened with time. He has already completed remdesivir. Continue Decadron and Lovenox. Following evaluation by infectious diseases, the patient was initiated on baricitinib. His current renal status would preclude the use of diuretics for another 24 hours. The patient was ultimately transferred to the ICU on April 07 with increasing oxygen demand. For now, it is reasonable to continue the patient on heated high flow throughout the day to maintain oxygen saturations at or above 90%. We will continue Airvo during the day. Wean FiO2 as tolerated. 2. Acute kidney injury Improving slowly. Likely prerenal in etiology. Continue to monitor urine output for now. No current indication for renal replacement therapy. Avoid nephrotoxic medications. We will challenge with diuretics once morning labs are available. 3. Hypertension/hyperlipidemia/anxiety/depression/diabetes mellitus/sleep apnea/hypothyroidism Complicates care, management, recovery and prognosis. Continue home medications as indicated. Blood sugars are currently poorly controlled. Bert hernandez will be placed on Lantus. This note was generated with [email or web address] dictation software. It may contain incorrect words, spelling, and punctuation that were not noted in checking the note before signing. Subjective Subjective Patient did okay overnight. Patient was able to tolerate BiPAP therapy with sleep and Airvo during the day. Nursing continues to report some confusion during the day, but does respond to redirection. Objective Data Objective Data Vital Signs: Vital Signs Temp Pulse Resp BP Pulse Ox 37.2 C 61 16 131/86 H 98 10/28/21 05:00 04/12/21 07:10 04/12/21 07:10 04/12/21 07:00 04/12/21 07:10 Oxygen Flow Rate (L/min) 60 Oxygen Delivery Method Bi-pap Weight: 82.4 kg Body Mass Index (BMI) 0.0 Intake & Output: Intake and Output for Last 24 Hours 04/10/21 04/11/21 04/12/21 23:59 23:59 23:59 Intake Total 1050 / 1050 1412 / 1412 50 / 50 Output Total 2375 / 3050 3200 / 3600 550 / 550 Balance -1325 / -2000 -1788 / -2188 -500 / -500 Lab / Micro Data Result Diagrams: 04/11/21 03:00 04/11/21 03:00 Labs: Laboratory Results - last 24 hr 04/11/21 12:27: POC Glucose 340 H 04/11/21 15:11: POC Glucose 337 H 04/11/21 22:41: POC Glucose 338 H Micro: Microbiology 04/04/21 07:49 Mucosa - Nasopharyngeal Respiratory Panel (PCR) - Final 04/04/21 08:50 Urine, Clean Catch Legionella Antigen - Final 04/04/21 08:50 Urine, Clean Catch Streptococcus pneumoniae Antigen (M - Final Physical Exam Const alert Constitutional Narrative: Currently tolerating BiPAP General Appearance: cooperative and on BiPAP Orientation / Consciousness: oriented to person; Negative for oriented to place or oriented to time HEENT normocephalic and head/scalp atraumatic Eyes PERRL, EOMs intact bilaterally and conjunctivae normal Neck supple General: trachea midline Chest inspection of chest normal Chest: symmetrical chest wall rise; Negative for crepitus Resp Effort and Inspection: Negative for labored Auscultation: diminished lung sounds; Negative for rales, rhonchi or wheezes Cardio regular rate and regular rhythm GI normal to inspection, nondistended, normoactive bowel sounds Extremity no clubbing, cyanosis or edema Skin no rashes or lesions noted Neuro CN's II-XII intact bilaterally, moves all extremities and no focal motor deficits Psych Mood & Affect: flat affect Charges/Coding Visit Charges Inpatient E&M: 25656 Subs Hosp L3
[2021-04-12 09:05] LABS: Bedside Glucose 153 mg/dL (70-110)
[2021-04-12] MEDS: Metoprolol Tartrate 50 MG Tablet 150 MG PO ×2 (09:05→21:09)
[2021-04-12] MEDS: Enoxaparin 30 MG/0.3 ML Syringe SC ×2 (09:05→21:07)
[2021-04-12] MEDS: Tamsulosin HCl 0.4 MG Capsule PO (09:06)
[2021-04-12] MEDS: Clopidogrel Bisulfate 75 MG Tablet PO (09:06)
[2021-04-12] MEDS: Lisinopril 20 MG Tablet PO (09:06)
[2021-04-12] MEDS: Sertraline 50 MG Tablet 150 MG PO (09:06)
[2021-04-12] MEDS: Pregabalin 50 MG Capsule 100 MG PO ×2 (09:07→21:09)
[2021-04-12] MEDS: amLODIPine 10 MG Tablet PO (09:07)
[2021-04-12] MEDS: Aspirin 81 MG TAB.CHEW PO (09:07)
[2021-04-12] MEDS: dexAMETHasone 10 MG/ML Vial 6 MG IV (09:08)
[2021-04-12] MEDS: Modafinil 200 MG Tablet PO (09:16)
[2021-04-12] MEDS: CHLORHEXIDINE GLUC 2% CLOTH 1 EACH TOWELETTE TOPICAL (09:16)
[2021-04-12 10:06] LABS: Absolute Lymphocyte Count 0.66 X10^3/uL (0.83-4.51); Absolute Neutrophil Count 7.4 X10^3/uL (2.0-7.7); Basophil# 0.02 X10^3/uL; Basophil% 0.2 % (0-1); Eosinophil# 0.15 X10^3/uL; Eosinophils% 1.7 % (0-5); Hematocrit 42.8 % (40-54); Hemoglobin 14.6 g/dL (13.0-16.5); Lymphocyte # 0.66 X10^3/ul (0.83-4.51); Lymphocyte % 7.5 % (19-41); Mean Corp Hgb Conc 34.1 g/dL (32-36); Mean Corpuscular Hgb 29.1 pg (27.0-32.0); Mean Corpuscular Volume 85.4 fL (80-94); Mean Platelet Vol. 9.6 fl (6.2-12.0); Monocyte# 0.44 X10^3/uL; NRBC Flagged by Analyzer 0 % (0-5); Neutrophil # 7.43 X10^3/uL (2.7-7.7); Neutrophil % 84.6 % (47-70); Platelet Count 386 K/mm3 (150-450); RBC Distribution Width CV 11.8 % (11.6-14.6); RBC Distribution Width SD 37.1 fl (35.1-43.9); Red Blood Count 5.01 M/mm3 (4.6-6.2); White Blood Count 8.8 K/mm3 (4.4-11.0)
--- NOTE | 2021-04-12 10:37 | PCM.PN.ID ---
Physical Exam Narrative Feeling better, breathing easier. Const alert and no apparent distress General Appearance: cooperative Resp clear to auscultation bilaterally Auscultation: diminished lung sounds Cardio regular rate and regular rhythm GI normal to inspection, nondistended, normoactive bowel sounds Skin no rashes or lesions noted ID ID: Route of nutrition/ use of supplements: [] Nutritional Intake: [] IV Site: [] Hartley Catheter: [] Assessment & Plan Assessment/Plan (1) Pneumonia due to COVID-19 virus: PLAN: Sx started 03/28. Isolate until 04/18. Recommend vaccine in next 1-2 months. Unvaccinated. On dex, remdesivir (completed), baricitinib. CT neg for PE, on lovenox 30mg bid. Low grade temps occasionally. Wbc normal. O2 stable. Will stop zosyn today. Will follow (2) Hypoxia:
[2021-04-12 10:45] LABS: ALB/GLOB Ratio 0.4 RATIO (0.9-2.4); AST(SGOT) 23 U/L (15-37); Alanine Aminotransfer ALT/SGPT 34 U/L (16-61); Albumin, Serum 2.1 g/dL (3.2-5.0); Alkaline Phosphatase 96 U/L (45-117); Anion Gap 7 (5-15); BUN 35 mg/dL (7-18); BUN/Creat Ratio 28.7 RATIO (10-20); Calcium,Total 8.9 mg/dL (8.5-10.1); Chloride 101 mmol/L (98-107); Creatinine, Serum 1.22 mg/dL (0.70-1.30); EST Glomerular Filtration Rate 63 mL/min (>60); Est Glom Filt Rate - Afr Amer 77 mL/min (>60); Estimated Creatinine Clearance 54.47 ml/min; Globulin 5.2 g/dL (2.2-4.2); Glucose 202 mg/dL (74-106); Phosphorus 3.6 mg/dL (2.5-4.9); Potassium 4.6 mmol/L (3.5-5.1); Protein, Total 7.3 g/dL (6.4-8.2); Sodium Level 138 mmol/L (136-145)
[2021-04-12] MEDS: Insulin Lispro 100 UNIT/ML INSULN.PEN SC ×3 (11:34→21:04)
[2021-04-12 13:36] LABS: Bedside Glucose 289 mg/dL (70-110)
[2021-04-12 14:51] LABS: Bedside Glucose 419 mg/dL (70-110)
--- NOTE | 2021-04-12 16:48 | PN.HOSP_ITS ---
Subjective Subjective Patient was seen and examined today in ICU, he is alert and appropriate. Patient is currently on Airvo Objective Data Objective Data Vital Signs: Vital Signs Temp Pulse Resp BP Pulse Ox 98.5 F 69 18 105/66 92 04/12/21 16:00 04/12/21 16:00 04/12/21 16:00 04/12/21 16:00 04/12/21 16:00 Oxygen Flow Rate (L/min) 60 Oxygen Delivery Method Bi-pap Weight: 82.4 kg Body Mass Index (BMI) 0.0 Intake & Output: Intake and Output for Last 24 Hours 04/10/21 04/11/21 04/12/21 23:59 23:59 23:59 Intake Total 1050 / 1050 1412 / 1412 350 / 350 Output Total 2375 / 3050 3200 / 3600 550 / 550 Balance -1325 / -2000 -1788 / -2188 -200 / -200 Lab / Micro Data Result Diagrams: 04/12/21 09:50 04/12/21 09:50 Labs: Laboratory Results - last 24 hr 04/11/21 22:41: POC Glucose 338 H 04/12/21 08:54: POC Glucose 153 H 04/12/21 09:50: WBC 8.8, RBC 5.01, Hgb 14.6, Hct 42.8, MCV 85.4, MCH 29.1, MCHC 34.1, RDW Std Deviation 37.1, RDW Coeff of Eben 11.8, Plt Count 386, MPV 9.6, Immature Gran % (Auto) 1.000 H, Neut % (Auto) 84.6 H, Lymph % (Auto) 7.5 L, [place] % (Auto) 5.0, Eos % (Auto) 1.7, Baso % (Auto) 0.2, Absolute Neuts (auto) 7.4, Absolute Lymphs (auto) 0.66 L, Nucleated RBC % 0 04/12/21 09:50: Phosphorus Cancelled, Magnesium Cancelled 04/12/21 09:50: Sodium 138, Potassium 4.6, Chloride 101, Carbon Dioxide 30.0, Anion Gap 7, BUN 35 H, Creatinine 1.22, Estim Creat Clear Calc 54.47, Est GFR (MDRD) Af Amer 77, Est GFR (MDRD) Non-Af 63, BUN/Creatinine Ratio 28.7 H, Glucose 202 H, Calcium 8.9, Phosphorus 3.6, Magnesium 2.0, Total Bilirubin 0.60, AST 23, ALT 34, Alkaline Phosphatase 96, Total Protein 7.3, Albumin 2.1 L, Globulin 5.2 H, Albumin/Globulin Ratio 0.4 L 04/12/21 11:31: POC Glucose 289 H 04/12/21 14:47: POC Glucose 419 H Micro: Microbiology 04/04/21 07:49 Mucosa - Nasopharyngeal Respiratory Panel (PCR) - Final 04/04/21 08:50 Urine, Clean Catch Legionella Antigen - Final 04/04/21 08:50 Urine, Clean Catch Streptococcus pneumoniae Antigen (M - Final Physical Exam Const alert, oriented x3, no apparent distress and healthy appearing General Appearance: cooperative, well kempt and well developed Orientation / Consciousness: awake, oriented to person, oriented to place and oriented to time HEENT normocephalic, head/scalp atraumatic and moist oral mucous membranes Head and Scalp: normocephalic Eyes PERRL, EOMs intact bilaterally and conjunctivae normal Neck nuchal rigidity, supple, no JVD, thyroid normal and no carotid bruits General: trachea midline Resp normal respiratory effort, no retractions, no use of accessory muscles and clear to auscultation bilaterally Auscultation: Negative for rales, rhonchi or wheezes Cardio regular rate, regular rhythm, S1 normal heart sound, S2 normal heart sound, no murmurs, no rub and no gallops GI normal to inspection, nondistended, normoactive bowel sounds, soft to palpation, non-tender and non-distended Extremity no clubbing, cyanosis or edema Skin no rashes or lesions noted General Skin Exam: no breakdown Neuro oriented x3, CN's II-XII intact bilaterally, no focal motor deficits and no sensory deficits noted Sensorium / Orientation: awake and alert Speech: speech normal Psych thought process normal and affect normal Assessment & Plan Assessment/Plan (1) Pneumonia due to COVID-19 virus: PLAN: 1. COVID-19 pneumonia-patient is currently on dexamethasone and baricitinib, pulmonary medicine is participating in his care as well as infectious diseases #2 acute hypoxic respiratory failure secondary to #1-pulmonary medicine is participating in his care, pulse ox will be monitored #3 type 2 diabetes-blood sugars will be monitored #4 essential hypertension #5 coronary artery disease-stable at this time #6 obstructive sleep apnea #7 hyperlipidemia #8 chronic depression/anxiety #9 mild encephalopathy due to #1-patient is alert and appropriate today Charges/Coding Visit Charges Inpatient E&M: 81153 Subs Hosp L2
[2021-04-12] MEDS: Atorvastatin Calcium 40 MG Tablet PO (21:09)
[2021-04-12] MEDS: Nortriptyline 10 MG Capsule 20 MG PO (21:09)
[2021-04-12] MEDS: busPIRone 5 MG Tablet 10 MG PO (21:09)
[2021-04-12] MEDS: 0.9% Saline Lock 10 ML Syringe IV (21:10)
[2021-04-12 22:16] LABS: Bedside Glucose 388 mg/dL (70-110)
[2021-04-13] VITALS (33 sets, daily range): BP systolic 92–147; BP diastolic 62–101; PULSE 51–84; RESP 12–24; TEMP 36.5–37.7; O2SAT 86–98
[2021-04-13 05:20] LABS: Hematocrit 42.6 % (40-54); Hemoglobin 14.4 g/dL (13.0-16.5); Mean Corp Hgb Conc 33.8 g/dL (32-36); Mean Corpuscular Hgb 28.7 pg (27.0-32.0); Mean Platelet Vol. 9.3 fl (6.2-12.0); Platelet Count 367 K/mm3 (150-450); RBC Distribution Width CV 11.8 % (11.6-14.6); RBC Distribution Width SD 35.8 fl (35.1-43.9); Red Blood Count 5.01 M/mm3 (4.6-6.2)
[2021-04-13 05:57] LABS: ALB/GLOB Ratio 0.4 RATIO (0.9-2.4); AST(SGOT) 24 U/L (15-37); Alanine Aminotransfer ALT/SGPT 44 U/L (16-61); Albumin, Serum 2.2 g/dL (3.2-5.0); Alkaline Phosphatase 109 U/L (45-117); Anion Gap 5 (5-15); BUN 32 mg/dL (7-18); BUN/Creat Ratio 30.8 RATIO (10-20); Calcium,Total 9.2 mg/dL (8.5-10.1); Chloride 103 mmol/L (98-107); Creatinine, Serum 1.04 mg/dL (0.70-1.30); EST Glomerular Filtration Rate 76 mL/min (>60); Est Glom Filt Rate - Afr Amer 92 mL/min (>60); Globulin 5.5 g/dL (2.2-4.2); Glucose 211 mg/dL (74-106); Potassium 4.3 mmol/L (3.5-5.1); Protein, Total 7.7 g/dL (6.4-8.2); Sodium Level 138 mmol/L (136-145)
--- NOTE | 2021-04-13 07:52 | PN.CC_ITS ---
Assessment & Plan Assessment/Plan (1) Pneumonia due to COVID-19 virus: PLAN: RECOMMENDATIONS: 1. Continue Airvo heated high flow throughout the day. Wean FiO2 to maintain oxygen saturations at or above 90%. 2. Continue AVAPS therapy, at a minimum, on a nightly basis on the current settings. Likely needs sleep study as an outpatient 3. Completed Remdesivir. Continue Decadron (04/14/2021), Lovenox and baricitinib (04/19/2021) as ordered. 4. Continue to monitor off antibiotics 5. Awake prone positioning was encouraged. 6. Diuretics, as needed, to maintain euvolemic state. Challenge with diuretics 7. Stable for over 48 hours. Could leave the intensive care unit from my perspective IMPRESSIONS: 1. Acute hypoxemic respiratory failure secondary to COVID-19 pneumonia The patient presented to the hospital with worsening dyspnea and hypoxemia, having previously been diagnosed with COVID-19 pneumonia with symptom onset sometime around March 27. The patients oxygenation status worsened with time. He has already completed remdesivir. Continue Decadron and Lovenox. Following evaluation by infectious diseases, the patient was initiated on baricitinib. His current renal status would preclude the use of diuretics for another 24 hours. The patient was ultimately transferred to the ICU on April 07 with increasing oxygen demand. For now, it is reasonable to continue the patient on heated high flow throughout the day to maintain oxygen saturations at or above 90%. We will continue Airvo during the day. Wean FiO2 as tolerated. Patient still requiring BiPAP and Airvo, but has been stable for days. Likely okay to leave the intensive care unit. 2. Acute kidney injury Resolved. Likely prerenal in etiology. Continue to monitor urine output for now. No current indication for renal replacement therapy. Avoid nephrotoxic medications. Challenge with diuretics 3. Hypertension/hyperlipidemia/anxiety/depression/diabetes mellitus/sleep apnea/hypothyroidism Complicates care, management, recovery and prognosis. Continue home medications as indicated. Blood sugars are currently poorly controlled. Patient will be placed on Lantus. This note was generated with [employer] dictation software. It may contain incorrect words, spelling, and punctuation that were not noted in checking the note before signing. Subjective Subjective Patient did okay overnight. Nursing is reporting the patient is more receptive and appropriate. Patient has tolerated Airvo during the day and BiPAP with sleep. Objective Data Objective Data Vital Signs: Vital Signs Temp Pulse Resp BP Pulse Ox 36.7 C 55 L 14 114/68 91 04/13/21 07:00 04/13/21 07:13 04/13/21 07:13 04/13/21 07:00 04/13/21 07:13 Oxygen Flow Rate (L/min) 5 Oxygen Delivery Method Bi-pap Weight: 79.4 kg Body Mass Index (BMI) 0.0 Intake & Output: Intake and Output for Last 24 Hours 04/11/21 04/12/21 04/13/21 23:59 23:59 23:59 Intake Total 1412 / 1412 350 / 350 60 / 60 Output Total 3200 / 3600 1400 / 1800 550 / 550 Balance -1788 / -2188 -1050 / -1450 -490 / -490 Lab / Micro Data Result Diagrams: 04/13/21 05:10 04/13/21 05:10 Labs: Laboratory Results - last 24 hr 04/12/21 08:54: POC Glucose 153 H 04/12/21 09:50: WBC 8.8, RBC 5.01, Hgb 14.6, Hct 42.8, MCV 85.4, MCH 29.1, MCHC 34.1, RDW Std Deviation 37.1, RDW Coeff of Eben 11.8, Plt Count 386, MPV 9.6, Immature Gran % (Auto) 1.000 H, Neut % (Auto) 84.6 H, Lymph % (Auto) 7.5 L, [place] % (Auto) 5.0, Eos % (Auto) 1.7, Baso % (Auto) 0.2, Absolute Neuts (auto) 7.4, Absolute Lymphs (auto) 0.66 L, Nucleated RBC % 0 04/12/21 09:50: Phosphorus Cancelled, Magnesium Cancelled 04/12/21 09:50: Sodium 138, Potassium 4.6, Chloride 101, Carbon Dioxide 30.0, Anion Gap 7, BUN 35 H, Creatinine 1.22, Estim Creat Clear Calc 54.47, Est GFR (MDRD) Af Amer 77, Est GFR (MDRD) Non-Af 63, BUN/Creatinine Ratio 28.7 H, Glucose 202 H, Calcium 8.9, Phosphorus 3.6, Magnesium 2.0, Total Bilirubin 0.60, AST 23, ALT 34, Alkaline Phosphatase 96, Total Protein 7.3, Albumin 2.1 L, Globulin 5.2 H, Albumin/Globulin Ratio 0.4 L 04/12/21 11:31: POC Glucose 289 H 04/12/21 14:47: POC Glucose 419 H 04/12/21 21:02: POC Glucose 388 H 04/13/21 05:10: WBC 8.0, RBC 5.01, Hgb 14.4, Hct 42.6, MCV 85.0, MCH 28.7, MCHC 33.8, RDW Std Deviation 35.8, RDW Coeff of Eben 11.8, Plt Count 367, MPV 9.3 04/13/21 05:10: Sodium 138, Potassium 4.3, Chloride 103, Carbon Dioxide 30.0, Anion Gap 5, BUN 32 H, Creatinine 1.04, Estim Creat Clear Calc 63.90, Est GFR (MDRD) Af Amer 92, Est GFR (MDRD) Non-Af 76, BUN/Creatinine Ratio 30.8 H, Glucose 211 H, Calcium 9.2, Total Bilirubin 0.40, AST 24, ALT 44, Alkaline Phosphatase 109, Total Protein 7.7, Albumin 2.2 L, Globulin 5.5 H, Albumin/Globulin Ratio 0.4 L Micro: Microbiology 04/04/21 07:49 Mucosa - Nasopharyngeal Respiratory Panel (PCR) - Final 04/04/21 08:50 Urine, Clean Catch Legionella Antigen - Final 04/04/21 08:50 Urine, Clean Catch Streptococcus pneumoniae Antigen (M - Final Physical Exam Const alert Constitutional Narrative: Currently tolerating BiPAP General Appearance: cooperative and on BiPAP Orientation / Consciousness: oriented to person; Negative for oriented to place or oriented to time HEENT normocephalic and head/scalp atraumatic Eyes PERRL, EOMs intact bilaterally and conjunctivae normal Neck supple General: trachea midline Chest inspection of chest normal Chest: symmetrical chest wall rise; Negative for crepitus Resp Effort and Inspection: Negative for labored Auscultation: diminished lung sounds; Negative for rales, rhonchi or wheezes Cardio regular rate and regular rhythm GI normal to inspection, nondistended, normoactive bowel sounds Extremity no clubbing, cyanosis or edema Skin no rashes or lesions noted Neuro CN's II-XII intact bilaterally, moves all extremities and no focal motor deficits Psych thought process normal Appearance: grossly normal and appropriate Charges/Coding Visit Charges Inpatient E&M: 49686 Subs Hosp L3
[2021-04-13] MEDS: Furosemide 40 MG/4 ML Vial IV (08:45)
[2021-04-13 11:36] LABS: Bedside Glucose 136 mg/dL (70-110)
[2021-04-13] MEDS: Pregabalin 50 MG Capsule 100 MG PO ×2 (11:56→21:00)
[2021-04-13] MEDS: dexAMETHasone 10 MG/ML Vial 6 MG IV (11:56)
[2021-04-13] MEDS: Enoxaparin 30 MG/0.3 ML Syringe SC ×2 (11:56→21:00)
[2021-04-13] MEDS: Modafinil 200 MG Tablet PO (11:57)
[2021-04-13] MEDS: Tamsulosin HCl 0.4 MG Capsule PO (11:57)
[2021-04-13] MEDS: Sertraline 50 MG Tablet 150 MG PO (11:57)
[2021-04-13] MEDS: Aspirin 81 MG TAB.CHEW PO (11:57)
[2021-04-13] MEDS: Clopidogrel Bisulfate 75 MG Tablet PO (11:57)
[2021-04-13] MEDS: Lisinopril 20 MG Tablet PO (12:02)
[2021-04-13] MEDS: amLODIPine 10 MG Tablet PO (12:02)
[2021-04-13] MEDS: Metoprolol Tartrate 50 MG Tablet 150 MG PO ×2 (12:06→21:01)
[2021-04-13] MEDS: Insulin Lispro 100 UNIT/ML INSULN.PEN SC ×3 (12:10→22:00)
[2021-04-13] MEDS: CHLORHEXIDINE GLUC 2% CLOTH 1 EACH TOWELETTE TOPICAL (14:49)
--- NOTE | 2021-04-13 14:54 | CASEMGMT ---
Message received from [facility] that they have a bed available for patient if he wishes to transfer. TRE RODRIGUEZ updated patient and he would like to stay at [facility] and have stay billed under his MCR. Patient signed declination form [facility]. TRE RODRIGUEZ left message for [place] transfer center. Declination form also faxed to registration.
[2021-04-13 17:01] LABS: Bedside Glucose 290 mg/dL (70-110)
[2021-04-13 17:15] LABS: Bedside Glucose 324 mg/dL (70-110)
--- NOTE | 2021-04-13 18:43 | PN.HOSP_ITS ---
Subjective Subjective And examined today, he is alert and responds appropriately to simple questions. Patient remains on Airvo at this time Objective Data Objective Data Vital Signs: Vital Signs Temp Pulse Resp BP Pulse Ox 99.8 F H 71 22 H 129/101 H 97 04/13/21 12:00 04/13/21 18:00 04/13/21 18:00 04/13/21 18:00 04/13/21 18:00 Oxygen Flow Rate (L/min) 60 Oxygen Delivery Method Airvo Weight: 79.4 kg Body Mass Index (BMI) 0.0 Intake & Output: Intake and Output for Last 24 Hours 04/11/21 04/12/21 04/13/21 23:59 23:59 23:59 Intake Total 1412 / 1412 350 / 350 60 / 60 Output Total 3200 / 3600 1400 / 1800 1200 / 1200 Balance -1788 / -2188 -1050 / -1450 -1140 / -1140 Lab / Micro Data Result Diagrams: 04/13/21 05:10 04/13/21 05:10 Labs: Laboratory Results - last 24 hr 04/12/21 21:02: POC Glucose 388 H 04/13/21 05:10: WBC 8.0, RBC 5.01, Hgb 14.4, Hct 42.6, MCV 85.0, MCH 28.7, MCHC 33.8, RDW Std Deviation 35.8, RDW Coeff of Eben 11.8, Plt Count 367, MPV 9.3 04/13/21 05:10: Sodium 138, Potassium 4.3, Chloride 103, Carbon Dioxide 30.0, Anion Gap 5, BUN 32 H, Creatinine 1.04, Estim Creat Clear Calc 63.90, Est GFR (MDRD) Af Amer 92, Est GFR (MDRD) Non-Af 76, BUN/Creatinine Ratio 30.8 H, Glucose 211 H, Calcium 9.2, Total Bilirubin 0.40, AST 24, ALT 44, Alkaline Phos phatase 109, Total Protein 7.7, Albumin 2.2 L, Globulin 5.5 H, Albumin/Globulin Ratio 0.4 L 04/13/21 08:44: POC Glucose 136 H 04/13/21 11:54: POC Glucose 290 H 04/13/21 16:58: POC Glucose 324 H Micro: Microbiology 04/04/21 07:49 Mucosa - Nasopharyngeal Respiratory Panel (PCR) - Final 04/04/21 08:50 Urine, Clean Catch Legionella Antigen - Final 04/04/21 08:50 Urine, Clean Catch Streptococcus pneumoniae Antigen (M - Final Physical Exam Const alert, oriented x3 and no apparent distress General Appearance: cooperative, well kempt and well developed Orientation / Consciousness: awake, oriented to person, oriented to place and oriented to time HEENT normocephalic and moist oral mucous membranes Eyes PERRL, EOMs intact bilaterally and conjunctivae normal Neck nuchal rigidity, supple, no JVD, thyroid normal and no carotid bruits General: trachea midline Resp normal respiratory effort, no retractions, no use of accessory muscles and clear to auscultation bilaterally Auscultation: Negative for rales, rhonchi or wheezes Cardio regular rate, regular rhythm, S1 normal heart sound, S2 normal heart sound, no murmurs, no rub and no gallops GI normal to inspection, nondistended, normoactive bowel sounds, soft to palpation, non-tender and non-distended Extremity no clubbing, cyanosis or edema Skin no rashes or lesions noted General Skin Exam: no breakdown Neuro CN's II-XII intact bilaterally, no focal motor deficits and no sensory deficits noted Sensorium / Orientation: awake and alert Speech: speech normal Psych thought process normal and affect normal Assessment & Plan Assessment/Plan (1) Pneumonia due to COVID-19 virus: PLAN: 1. COVID-19 pneumonia-patient is currently on dexamethasone and baricitinib, pulmonary medicine is participating in his care as well as infectious diseases #2 acute hypoxic respiratory failure secondary to #1-pulmonary medicine is participating in his care, pulse ox will be monitored, patient continues on Airvo #3 type 2 diabetes-blood sugars will be monitored #4 essential hypertension #5 coronary artery disease-stable at this time #6 obstructive sleep apnea #7 hyperlipidemia #8 chronic depression/anxiety #9 mild encephalopathy due to #1-patient is alert and appropriate today
[2021-04-13] MEDS: Atorvastatin Calcium 40 MG Tablet PO (21:00)
[2021-04-13] MEDS: Nortriptyline 10 MG Capsule 20 MG PO (21:01)
[2021-04-13] MEDS: busPIRone 5 MG Tablet 10 MG PO (21:59)
[2021-04-13 22:16] LABS: Bedside Glucose 361 mg/dL (70-110)
[2021-04-14] VITALS (40 sets, daily range): BP systolic 107–157; BP diastolic 43–85; PULSE 53–86; RESP 12–25; TEMP 36.4–37.2; O2SAT 92–98
--- NOTE | 2021-04-14 07:03 | PN.CC_ITS ---
Assessment & Plan Assessment/Plan (1) Pneumonia due to COVID-19 virus: PLAN: RECOMMENDATIONS: 1. Continue Airvo heated high flow throughout the day. Wean FiO2 to maintain oxygen saturations at or above 90%. 2. Continue AVAPS therapy, at a minimum, on a nightly basis on the current settings. Likely needs sleep study as an outpatient. 3. Completed Remdesivir. Continue Decadron (04/14/2021), Lovenox and baricitinib (04/19/2021) as ordered. 4. Awake prone positioning was encouraged. 5. Diuretics, as needed, to maintain euvolemic state. IMPRESSIONS: 1. Acute hypoxemic respiratory failure secondary to COVID-19 pneumonia The patient presented to the hospital with worsening dyspnea and hypoxemia, having previously been diagnosed with COVID-19 pneumonia with symptom onset sometime around March 27. The patients oxygenation status worsened with time. He has already completed remdesivir. Continue Decadron and Lovenox. Following evaluation by infectious diseases, the patient was initiated on baricitinib. The patient was ultimately transferred to the ICU on April 07 with increasing oxygen demand. For now, it is reasonable to continue the patient on heated high flow throughout the day to maintain oxygen saturations at or above 90%. Continue AVAPS support nightly. 2. Acute kidney injury Resolved. Likely prerenal in etiology. Continue to monitor urine output for now. No current indication for renal replacement therapy. Avoid nephrotoxic medications. Continue diuretics as needed to maintain euvolemic state. 3. Hypertension/hyperlipidemia/anxiety/depression/diabetes mellitus/sleep apnea/hypothyroidism Complicates care, management, recovery and prognosis. Continue home medications as indicated. Continue basal and sliding scale insulin coverage. This note was generated with [employer] dictation software. It may contain incorrect words, spelling, and punctuation that were not noted in checking the note before signing. Subjective Subjective The patient was seen and examined at the bedside this morning. Events from the last 24 hours have been reviewed. The patient is currently afebrile, hemodynamically stable and maintaining appropriate oxygen saturations on BiPAP with an FiO2 requirement of 45%. The patient is currently documented to be overall net -6 L for the hospitalization. The patient remains on Decadron, Lovenox and baricitinib. Objective Data Objective Data The patient's most recent lab work, culture data and imaging studies have all been personally reviewed. Strep and urine Legionella antigens were negative. Respiratory viral panel was negative. Vital Signs: Vital Signs Temp Pulse Resp BP Pulse Ox 98.1 F 53 L 16 117/71 94 04/14/21 00:00 04/14/21 06:55 04/14/21 06:55 04/14/21 06:00 04/14/21 06:55 Oxygen Flow Rate (L/min) 60 Oxygen Delivery Method Bi-pap Weight: 79.8 kg Body Mass Index (BMI) 0.0 Intake & Output: Intake and Output for Last 24 Hours 04/12/21 04/13/21 04/14/21 23:59 23:59 23:59 Intake Total 350 / 350 60 / 60 50 / 50 Output Total 1400 / 1800 1200 / 1200 Balance -1050 / -1450 -1140 / -1140 Lab / Micro Data Attestation: I reviewed the patient's lab results. Result Diagrams: 04/13/21 05:10 04/13/21 05:10 Labs: Laboratory Results - last 24 hr 04/13/21 08:44: POC Glucose 136 H 04/13/21 11:54: POC Glucose 290 H 04/13/21 16:58: POC Glucose 324 H 04/13/21 21:57: POC Glucose 361 H Micro: Microbiology 04/04/21 07:49 Mucosa - Nasopharyngeal Respiratory Panel (PCR) - Final 04/04/21 08:50 Urine, Clean Catch Legionella Antigen - Final 04/04/21 08:50 Urine, Clean Catch Streptococcus pneumoniae Antigen (M - Fi nal Physical Exam Const no apparent distress General Appearance: cooperative and on BiPAP HEENT normocephalic and head/scalp atraumatic Eyes PERRL, EOMs intact bilaterally and conjunctivae normal Neck supple General: trachea midline Chest inspection of chest normal Resp Auscultation: diminished lung sounds; Negative for rales, rhonchi or wheezes Cardio regular rate and regular rhythm GI normal to inspection, nondistended, normoactive bowel sounds Extremity no clubbing, cyanosis or edema Skin no rashes or lesions noted Neuro moves all extremities and no focal motor deficits Psych cooperative Charges/Coding Visit Charges Inpatient E&M: 00508 Subs Hosp L3
[2021-04-14] MEDS: dexAMETHasone 10 MG/ML Vial 6 MG IV (08:44)
[2021-04-14] MEDS: Insulin Lispro 100 UNIT/ML INSULN.PEN SC ×4 (08:44→21:00)
[2021-04-14] MEDS: Clopidogrel Bisulfate 75 MG Tablet PO (08:44)
[2021-04-14] MEDS: Enoxaparin 30 MG/0.3 ML Syringe SC ×2 (08:44→20:58)
[2021-04-14] MEDS: Tamsulosin HCl 0.4 MG Capsule PO (08:45)
[2021-04-14] MEDS: Sertraline 50 MG Tablet 150 MG PO (08:45)
[2021-04-14] MEDS: Aspirin 81 MG TAB.CHEW PO (08:45)
[2021-04-14] MEDS: Metoprolol Tartrate 50 MG Tablet 150 MG PO ×2 (08:46→20:58)
[2021-04-14] MEDS: amLODIPine 10 MG Tablet PO (08:46)
[2021-04-14] MEDS: Lisinopril 20 MG Tablet PO (08:46)
[2021-04-14] MEDS: CHLORHEXIDINE GLUC 2% CLOTH 1 EACH TOWELETTE TOPICAL (08:54)
[2021-04-14] MEDS: Pregabalin 50 MG Capsule 100 MG PO ×2 (10:44→20:59)
[2021-04-14] MEDS: Modafinil 200 MG Tablet PO (10:44)
[2021-04-14 12:01] LABS: Bedside Glucose 276 mg/dL (70-110)
[2021-04-14 16:46] LABS: Bedside Glucose 414 mg/dL (70-110)
--- NOTE | 2021-04-14 18:54 | PCM.PN.HOSP ---
Subjective Subjective Patient was seen and examined today, he remains on Airvo, he does not appear dyspneic at rest however. Objective Data Objective Data Vital Signs: Vital Signs Temp Pulse Resp BP Pulse Ox 97.6 F L 81 18 132/70 H 97 04/14/21 15:00 04/14/21 17:27 04/14/21 16:01 04/14/21 16:00 04/14/21 17:27 Oxygen Flow Rate (L/min) 97 Oxygen Delivery Method Airvo Weight: 79.8 kg Body Mass Index (BMI) 0.0 Intake & Output: Intake and Output for Last 24 Hours 04/12/21 04/13/21 04/14/21 23:59 23:59 23:59 Intake Total 350 / 350 60 / 60 410 / 410 Output Total 1400 / 1800 1200 / 1200 200 / 200 Balance -1050 / -1450 -1140 / -1140 210 / 210 Lab / Micro Data Result Diagrams: 04/13/21 05:10 04/13/21 05:10 Labs: Laboratory Results - last 24 hr 04/13/21 21:57: POC Glucose 361 H 04/14/21 11:52: POC Glucose 276 H 04/14/21 16:21: POC Glucose 414 H Micro: Microbiology 04/04/21 07:49 Mucosa - Nasopharyngeal Respiratory Panel (PCR) - Final 04/04/21 08:50 Urine, Clean Catch Legionella Antigen - Final 04/04/21 08:50 Urine, Clean Catch Streptococcus pneumoniae Antigen (M - Final Physical Exam Narrative alert, oriented x3 and no apparent distress General Appearance: cooperative, well kempt and well developed Orientation / Consciousness: awake, oriented to person, oriented to place and oriented to time HEENT normocephalic and moist oral mucous membranes Eyes PERRL, EOMs intact bilaterally and conjunctivae normal Neck nuchal rigidity, supple, no JVD, thyroid normal and no carotid bruits General: trachea midline Resp normal respiratory effort, no retractions, no use of accessory muscles and clear to auscultation bilaterally Auscultation: Negative for rales, rhonchi or wheezes Cardio regular rate, regular rhythm, S1 normal heart sound, S2 normal heart sound, no murmurs, no rub and no gallops GI normal to inspection, nondistended, normoactive bowel sounds, soft to palpation, non-tender and non-distended Extremity no clubbing, cyanosis or edema Skin no rashes or lesions noted General Skin Exam: no breakdown Neuro CN's II-XII intact bilaterally, no focal motor deficits and no sensory deficits noted Sensorium / Orientation: awake and alert Speech: speech normal Psych thought process normal and affect normal Assessment & Plan Assessment/Plan (1) Pneumonia due to COVID-19 virus: PLAN: 1. COVID-19 pneumonia-patient is currently on baricitinib, pulmonary medicine is participating in his care as well as infectious diseases, patient completed his dexamethasone. #2 acute hypoxic respiratory failure secondary to #1-pulmonary medicine is participating in his care, pulse ox will be monitored, patient continues on Airvo #3 type 2 diabetes-blood sugars will be monitored #4 essential hypertension #5 coronary artery disease-stable at this time #6 obstructive sleep apnea #7 hyperlipidemia #8 chronic depression/anxiety #9 mild encephalopathy due to #1-patient is alert and appropriate today Charges/Coding Visit Charges Inpatient E&M: 16246 Subs Hosp L2
[2021-04-14] MEDS: busPIRone 5 MG Tablet 10 MG PO (20:59)
[2021-04-14] MEDS: Atorvastatin Calcium 40 MG Tablet PO (20:59)
[2021-04-14] MEDS: Nortriptyline 10 MG Capsule 20 MG PO (20:59)
[2021-04-14 21:45] LABS: Bedside Glucose 340 mg/dL (70-110)
[2021-04-15] VITALS (25 sets, daily range): BP systolic 102–160; BP diastolic 50–90; PULSE 64–78; RESP 12–94; TEMP 35.8–37.1; O2SAT 18–96
--- NOTE | 2021-04-15 06:35 | PCM.PN.INT ---
Assessment & Plan Assessment/Plan (1) Pneumonia due to COVID-19 virus: PLAN: RECOMMENDATIONS: 1. Continue Airvo heated high flow throughout the day. Wean FiO2 to maintain oxygen saturations at or above 90%. 2. Continue AVAPS therapy, at a minimum, on a nightly basis on the current settings. Likely needs sleep study as an outpatient. 3. Completed Remdesivir and Decadron. Continue Lovenox and baricitinib (04/19/2021) as ordered. 4. Diuretics, as needed, to maintain euvolemic state. 5. The patient can be transferred out of the ICU from my perspective. IMPRESSIONS: 1. Acute hypoxemic respiratory failure secondary to COVID-19 pneumonia The patient presented to the hospital with worsening dyspnea and hypoxemia, having previously been diagnosed with COVID-19 pneumonia with symptom onset sometime around March 27. The patients oxygenation status worsened with time. He has already completed remdesivir and decadron. Continue Lovenox and baricitinib. The patient was ultimately transferred to the ICU on April 07 with increasing oxygen demand. For now, it is reasonable to continue the patient on heated high flow throughout the day to maintain oxygen saturations at or above 90%. Continue AVAPS support nightly. 2. Acute kidney injury Resolved. Likely prerenal in etiology. Continue to monitor urine output for now. No current indication for renal replacement therapy. Avoid nephrotoxic medications. Continue diuretics as needed to maintain euvolemic state. 3. Hypertension/hyperlipidemia/anxiety/depression/diabetes mellitus/sleep apnea/hypothyroidism Complicates care, management, recovery and prognosis. Continue home medications as indicated. Continue basal and sliding scale insulin coverage. This note was generated with [facility] dictation software. It may contain incorrect words, spelling, and punctuation that were not noted in checking the note before signing. Subjective Subjective The patient was seen and examined at the bedside this morning. Events from the last 24 hours have been reviewed. The patient is afebrile and hemodynamically stable. The patient continues to alternate between heated high flow oxygen throughout the day and BiPAP at night. The patient was able to be maintained on Airvo heated high flow throughout the day yesterday with an FiO2 requirement of 65% and flow rate of 60 L/min. He has done well on BiPAP overnight with an FiO2 requirement of 40%. The patient is currently documented to be overall net -6.3 L for the hospitalization. The patient has completed his treatment course of Decadron. He remains on Lovenox and baricitinib. Objective Data Objective Data The patient's most recent lab work, culture data and imaging studies have all been personally reviewed. Strep and urine Legionella antigens were negative. Respiratory viral panel was negative. Vital Signs: Vital Signs Temp Pulse Resp BP Pulse Ox 98.6 F 66 19 H 129/70 H 94 04/15/21 04:00 04/15/21 06:00 04/15/21 06:00 04/15/21 06:00 04/15/21 06:00 Oxygen Flow Rate (L/min) 60 Oxygen Delivery Method Bi-pap Weight: 81.4 kg Body Mass Index (BMI) 0.0 Intake & Output: Intake and Output for Last 24 Hours 04/13/21 04/14/21 04/15/21 23:59 23:59 23:59 Intake Total 60 / 60 610 / 610 120 / 120 Output Total 1200 / 1200 300 / 300 675 / 675 Balance -1140 / -1140 310 / 310 -555 / -555 Lab / Micro Data Attestation: I reviewed the patient's lab results. Result Diagrams: 04/15/21 07:25 04/15/21 07:25 Labs: Laboratory Results - last 24 hr 04/14/21 11:52: POC Glucose 276 H 04/14/21 16:21: POC Glucose 414 H 04/14/21 20:56: POC Glucose 340 H Micro: Microbiology 04/04/21 07:49 Mucosa - Nasopharyngeal Respiratory Panel (PCR) - Final 04/04/21 08:50 Urine, Clean Catch Legionella Antigen - Final 04/04/21 08:50 Urine, Clean Catch Streptococcus pneumoniae Antigen (M - Final Physical Exam Const no apparent distress General Appearance: cooperative and on BiPAP HEENT normocephalic and head/scalp atraumatic Eyes PERRL, EOMs intact bilaterally and conjunctivae normal Neck supple General: trachea midline Chest inspection of chest normal Resp Auscultation: diminished lung sounds; Negative for rales, rhonchi or wheezes Cardio regular rate and regular rhythm GI normal to inspection, nondistended, normoactive bowel sounds Extremity no clubbing, cyanosis or edema Skin no rashes or lesions noted Neuro moves all extremities and no focal motor deficits Psych cooperative Charges/Coding Visit Charges Inpatient E&M: 41237 Subs Hosp L3
[2021-04-15 07:39] LABS: Absolute Lymphocyte Count 1.19 X10^3/uL (0.83-4.51); Absolute Neutrophil Count 7.6 X10^3/uL (2.0-7.7); Basophil# 0.02 X10^3/uL; Basophil% 0.2 % (0-1); Eosinophil# 0.07 X10^3/uL; Eosinophils% 0.7 % (0-5); Hematocrit 38.7 % (40-54); Hemoglobin 13.4 g/dL (13.0-16.5); Lymphocyte # 1.19 X10^3/ul (0.83-4.51); Lymphocyte % 12.7 % (19-41); Mean Corp Hgb Conc 34.6 g/dL (32-36); Mean Corpuscular Volume 83.8 fL (80-94); Mean Platelet Vol. 9.2 fl (6.2-12.0); Monocyte# 0.41 X10^3/uL; Monocyte% 4.4 % (0-10); NRBC Flagged by Analyzer 0 % (0-5); Neutrophil % 81.5 % (47-70); Platelet Count 326 K/mm3 (150-450); RBC Distribution Width CV 11.3 % (11.6-14.6); RBC Distribution Width SD 34.3 fl (35.1-43.9); Red Blood Count 4.62 M/mm3 (4.6-6.2); White Blood Count 9.3 K/mm3 (4.4-11.0)
[2021-04-15 08:05] LABS: Anion Gap 4 (5-15); BUN 31 mg/dL (7-18); BUN/Creat Ratio 35.3 RATIO (10-20); Calcium,Total 8.9 mg/dL (8.5-10.1); Chloride 101 mmol/L (98-107); Creatinine, Serum 0.88 mg/dL (0.70-1.30); EST Glomerular Filtration Rate 93 mL/min (>60); Est Glom Filt Rate - Afr Amer 112 mL/min (>60); Estimated Creatinine Clearance 75.52 ml/min; Glucose 169 mg/dL (74-106); Potassium 4.6 mmol/L (3.5-5.1); Sodium Level 137 mmol/L (136-145)
[2021-04-15] MEDS: Insulin Lispro 100 UNIT/ML INSULN.PEN SC ×4 (09:00→21:43)
[2021-04-15 09:10] LABS: Bedside Glucose 167 mg/dL (70-110)
[2021-04-15] MEDS: amLODIPine 10 MG Tablet PO (10:12)
[2021-04-15] MEDS: Lisinopril 20 MG Tablet PO (10:12)
[2021-04-15] MEDS: Aspirin 81 MG TAB.CHEW PO (10:12)
[2021-04-15] MEDS: Tamsulosin HCl 0.4 MG Capsule PO (10:12)
[2021-04-15] MEDS: Metoprolol Tartrate 50 MG Tablet 150 MG PO ×2 (10:13→21:42)
[2021-04-15] MEDS: Sertraline 50 MG Tablet 150 MG PO (10:13)
[2021-04-15] MEDS: Clopidogrel Bisulfate 75 MG Tablet PO (10:13)
[2021-04-15] MEDS: Enoxaparin 30 MG/0.3 ML Syringe SC ×2 (10:14→21:42)
[2021-04-15] MEDS: CHLORHEXIDINE GLUC 2% CLOTH 1 EACH TOWELETTE TOPICAL (10:14)
[2021-04-15] MEDS: Modafinil 200 MG Tablet PO (10:14)
[2021-04-15] MEDS: Pregabalin 50 MG Capsule 100 MG PO ×2 (10:16→21:42)
[2021-04-15 12:20] LABS: Bedside Glucose 253 mg/dL (70-110)
[2021-04-15 14:15] LABS: ALB/GLOB Ratio 0.4 RATIO (0.9-2.4); AST(SGOT) 36 U/L (15-37); Alanine Aminotransfer ALT/SGPT 70 U/L (16-61); Alkaline Phosphatase 135 U/L (45-117); Globulin 4.5 g/dL (2.2-4.2); Protein, Total 6.5 g/dL (6.4-8.2)
[2021-04-15 16:30] LABS: Bedside Glucose 293 mg/dL (70-110)
[2021-04-15] MEDS: busPIRone 5 MG Tablet 10 MG PO (21:42)
[2021-04-15] MEDS: Nortriptyline 10 MG Capsule 20 MG PO (21:42)
[2021-04-15] MEDS: Atorvastatin Calcium 40 MG Tablet PO (21:42)
[2021-04-15 21:56] LABS: Bedside Glucose 249 mg/dL (70-110)
[2021-04-16] VITALS (16 sets, daily range): BP systolic 106–140; BP diastolic 60–72; PULSE 65–86; RESP 12–20; TEMP 36.5–37.1; O2SAT 91–95
[2021-04-16] MEDS: Insulin Lispro 100 UNIT/ML INSULN.PEN SC ×4 (06:26→21:04)
[2021-04-16 06:31] LABS: Bedside Glucose 167 mg/dL (70-110)
[2021-04-16] MEDS: Sertraline 50 MG Tablet 150 MG PO (09:37)
[2021-04-16] MEDS: Metoprolol Tartrate 50 MG Tablet 150 MG PO ×2 (09:38→21:05)
[2021-04-16] MEDS: Lisinopril 20 MG Tablet PO (09:38)
[2021-04-16] MEDS: Clopidogrel Bisulfate 75 MG Tablet PO (09:38)
[2021-04-16] MEDS: amLODIPine 10 MG Tablet PO (09:38)
[2021-04-16] MEDS: Aspirin 81 MG TAB.CHEW PO (09:39)
[2021-04-16] MEDS: Tamsulosin HCl 0.4 MG Capsule PO (09:39)
[2021-04-16] MEDS: Enoxaparin 30 MG/0.3 ML Syringe SC ×2 (09:41→21:04)
[2021-04-16] MEDS: Pregabalin 50 MG Capsule 100 MG PO ×2 (09:55→21:12)
[2021-04-16] MEDS: Modafinil 200 MG Tablet PO (09:59)
[2021-04-16 11:20] LABS: Bedside Glucose 250 mg/dL (70-110)
--- NOTE | 2021-04-16 15:22 | NURSING ---
Dr Stevens spoke to this nurse concerning pt Faraz Rodrigues in room PCU 110. Pt may come out of Covid precautions.
[2021-04-16 16:20] LABS: Bedside Glucose 249 mg/dL (70-110)
--- NOTE | 2021-04-16 16:28 | PN.HOSP_ITS ---
Subjective Subjective Patient on air Vo. Was transferred from ICU on 04/15. Objective Data Objective Data Vital Signs: Vital Signs Temp Pulse Resp BP Pulse Ox 98.7 F 72 16 106/60 94 04/16/21 15:35 04/16/21 15:35 04/16/21 15:35 04/16/21 15:35 04/16/21 15:35 Oxygen Flow Rate (L/min) 5 Oxygen Delivery Method Nasal Cannula Weight: 177 lb 7.554 oz Body Mass Index (BMI) 0.0 Intake & Output: Intake and Output for Last 24 Hours 04/14/21 04/15/21 04/16/21 23:59 23:59 23:59 Intake Total 610 / 610 360 / 600 720 / 720 Output Total 300 / 300 1250 / 1450 1050 / 1050 Balance 310 / 310 -890 / -850 -330 / -330 Lab / Micro Data Result Diagrams: 04/15/21 07:25 04/15/21 07:25 Labs: Laboratory Results - last 24 hr 04/15/21 16:17: POC Glucose 293 H 04/15/21 21:41: POC Glucose 249 H 04/16/21 06:25: POC Glucose 167 H 04/16/21 11:12: POC Glucose 250 H 04/16/21 16:10: POC Glucose 249 H Micro: Microbiology 04/04/21 07:49 Mucosa - Nasopharyngeal Respiratory Panel (PCR) - Final 04/04/21 08:50 Urine, Clean Catch Legionella Antigen - Final 04/04/21 08:50 Urine, Clean Catch Streptococcus pneumoniae Antigen (M - Final Physical Exam Narrative General: Alert, Oriented x3, Cooperative HEENT: Atraumatic, PERRLA, EOMI, Normocephalic Oral: No Gingival or Mucosal Lesions/ Ulcerations Neck: Supple, No JVD, Negative Carotid Bruits Lungs: Air entry diminished in bilateral lung bases. No crepitation/rhonchi, no high flow oxygen/AIRVO Cardiovascular: Regular rate, Regular Rhythm, Normal S1, Normal S2, No murmurs Abdomen: Bowel Sounds Present, Soft, Non Tender, Non-Distended : No renal angle tenderness. No suprapubic tenderness. Extremities: No edema, Capillary Refill Less than 3 Seconds Skin: No rashes, No breakdown Musculoskeletal: No Tenderness to Palpation of Joints or Extremities Neurological: Cranial nerves II-XII grossly intact, DTR 2+/4 and Symmetrical Psych/Mental Status: Normal Affect, Appropriate. Assessment & Plan Assessment/Plan (1) Pneumonia due to COVID-19 virus: PLAN: 1. COVID-19 pneumonia-patient is currently on baricitinib. Patient completed dexamethasone and remdesivir. Seen by trucker/lead web application developer. Continue AVAPS with a nightly basis. #2 acute hypoxic respiratory failure secondary to to bilateral COVID-19 pneumonia-as mentioned above #3 type 2 diabetes-blood sugars are monitored. Blood sugars around 250. Started on Lantus 10 units subcutaneously at bedtime daily along with sliding scale insulin lispro coverage. #4 essential hypertension: Blood pressure normotensive. #5 coronary artery disease-stable at this time #6 obstructive sleep apnea #7 hyperlipidemia #8 chronic depression/anxiety #9 mild encephalopathy due to -patient is alert and appropriate today Charges/Coding Visit Charges Inpatient E&M: 76391 Subs Hosp L3
[2021-04-16] MEDS: Atorvastatin Calcium 40 MG Tablet PO (21:05)
[2021-04-16 21:20] LABS: Bedside Glucose 242 mg/dL (70-110)
[2021-04-16] MEDS: Nortriptyline 10 MG Capsule 20 MG PO (21:40)
[2021-04-16] MEDS: busPIRone 5 MG Tablet 10 MG PO (21:40)
[2021-04-17] VITALS (15 sets, daily range): BP systolic 96–144; BP diastolic 60–79; PULSE 0–78; RESP 12–19; TEMP 36.5–36.9; O2SAT 86–96
[2021-04-17 06:41] LABS: Bedside Glucose 84 mg/dL (70-110)
[2021-04-17] MEDS: Clopidogrel Bisulfate 75 MG Tablet PO (09:13)
[2021-04-17] MEDS: Metoprolol Tartrate 50 MG Tablet 150 MG PO ×2 (09:13→21:18)
[2021-04-17] MEDS: Sertraline 50 MG Tablet 150 MG PO (09:13)
[2021-04-17] MEDS: Enoxaparin 30 MG/0.3 ML Syringe SC ×2 (09:13→21:18)
[2021-04-17] MEDS: Lisinopril 20 MG Tablet PO (09:14)
[2021-04-17] MEDS: Tamsulosin HCl 0.4 MG Capsule PO (09:14)
[2021-04-17] MEDS: amLODIPine 10 MG Tablet PO (09:15)
[2021-04-17] MEDS: Aspirin 81 MG TAB.CHEW PO (09:15)
[2021-04-17] MEDS: Pregabalin 50 MG Capsule 100 MG PO ×2 (09:18→21:18)
[2021-04-17] MEDS: Modafinil 200 MG Tablet PO (09:20)
--- NOTE | 2021-04-17 10:37 | CASEMGMT ---
SW spoke with patient regarding d/c plan. Patient thinks he is okay to go home at d/c. SW explained Medicare coverage for SNF and home health. Patient was undecided. SW will talk with PT/OT regarding their recommendations. Mayte BRISENO
[2021-04-17] MEDS: Insulin Lispro 100 UNIT/ML INSULN.PEN SC ×3 (11:54→21:24)
[2021-04-17 12:10] LABS: Bedside Glucose 215 mg/dL (70-110)
--- NOTE | 2021-04-17 15:20 | PCM.PN.HOSP ---
Subjective Subjective Patient is still short of breath but not significant difference from yesterday. Objective Data Objective Data Vital Signs: Vital Signs Temp Pulse Resp BP Pulse Ox 97.7 F L 78 18 144/79 H 87 04/17/21 08:55 04/17/21 15:00 04/17/21 08:55 04/17/21 09:13 04/17/21 09:28 Oxygen Flow Rate (L/min) [ 6 AMBULATING with Oxygen #1] Oxygen Flow Rate (L/min) [At 3 REST with Oxygen] Oxygen Flow Rate (L/min) [At 0 REST on Room Air] Oxygen Flow Rate (L/min) 3 Oxygen Delivery Method Nasal Cannula Weight: 178 lb 9.191 oz Body Mass Index (BMI) 0.0 Intake & Output: Intake and Output for Last 24 Hours 04/15/21 04/16/21 04/17/21 23:59 23:59 23:59 Intake Total 360 / 600 1080 / 1200 480 / 480 Output Total 1250 / 1450 1275 / 1475 750 / 750 Balance -890 / -850 -195 / -275 -270 / -270 Lab / Micro Data Result Diagrams: 04/15/21 07:25 04/15/21 07:25 Labs: Laboratory Results - last 24 hr 04/16/21 16:10: POC Glucose 249 H 04/16/21 21:02: POC Glucose 242 H 04/17/21 06:33: POC Glucose 84 04/17/21 11:53: POC Glucose 215 H Micro: Microbiology 04/04/21 07:49 Mucosa - Nasopharyngeal Respiratory Panel (PCR) - Final 04/04/21 08:50 Urine, Clean Catch Legionella Antigen - Final 04/04/21 08:50 Urine, Clean Catch Streptococcus pneumoniae Antigen (M - Final Physical Exam Narrative General: Alert, Oriented x3, Cooperative HEENT: Atraumatic, PERRLA, EOMI, Normocephalic Oral: No Gingival or Mucosal Lesions/ Ulcerations Neck: Supple, No JVD, Negative Carotid Bruits Lungs: Air entry diminished in bilateral lung bases. No crepitation/rhonchi Cardiovascular: Regular rate, Regular Rhythm, Normal S1, Normal S2, No murmurs Abdomen: Bowel Sounds Present, Soft, Non Tender, Non-Distended : No renal angle tenderness. No suprapubic tenderness. Extremities: No edema, Capillary Refill Less than 3 Seconds Skin: No rashes, No breakdown Musculoskeletal: No Tenderness to Palpation of Joints or Extremities Neurological: Cranial nerves II-XII grossly intact, DTR 2+/4 and Symmetrical Psych/Mental Status: Normal Affect, Appropriate. Assessment & Plan Assessment/Plan (1) Pneumonia due to COVID-19 virus: PLAN: 1. COVID-19 pneumonia-patient is currently on baricitinib. Patient completed dexamethasone and remdesivir. Seen by supervisor of communications/reinforcing metal worker. Continue AVAPS with a nightly basis. #2 acute hypoxic respiratory failure secondary to to bilateral COVID-19 pneumonia-as mentioned above #3 type 2 diabetes-blood sugars are monitored. Blood sugars around 250. Started on Lantus 10 units subcutaneously at bedtime daily along with sliding scale insulin lispro coverage. 04/17: Patient has glucose 84 in the morning. Lantus dose decreased at night. Lantus was changed to twice daily along with scheduled Humalog insulin. #4 essential hypertension: Blood pressure normotensive. #5 coronary artery disease-stable at this time #6 obstructive sleep apnea #7 hyperlipidemia #8 chronic depression/anxiety #9 mild encephalopathy due to -patient is alert and appropriate today Charges/Coding Visit Charges Inpatient E&M: 26428 Subs Hosp L2
[2021-04-17] MEDS: Insulin Lispro 100 UNIT/ML INSULN.PEN 10 UNIT SC (17:08)
[2021-04-17 17:40] LABS: Bedside Glucose 262 mg/dL (70-110)
[2021-04-17] MEDS: Atorvastatin Calcium 40 MG Tablet PO (21:18)
[2021-04-17] MEDS: busPIRone 5 MG Tablet 10 MG PO (21:18)
[2021-04-17] MEDS: Nortriptyline 10 MG Capsule 20 MG PO (21:18)
[2021-04-17 22:25] LABS: Bedside Glucose 177 mg/dL (70-110)
[2021-04-18] VITALS (16 sets, daily range): BP systolic 113–133; BP diastolic 62–87; PULSE 66–78; RESP 12–18; TEMP 36.6–37.3; O2SAT 87–97
[2021-04-18 07:58] LABS: Hematocrit 34.7 % (40-54); Hemoglobin 11.8 g/dL (13.0-16.5); Mean Corpuscular Volume 85.3 fL (80-94); Mean Platelet Vol. 9.7 fl (6.2-12.0); Platelet Count 257 K/mm3 (150-450); RBC Distribution Width CV 11.4 % (11.6-14.6); RBC Distribution Width SD 35.5 fl (35.1-43.9); Red Blood Count 4.07 M/mm3 (4.6-6.2); White Blood Count 6.6 K/mm3 (4.4-11.0)
[2021-04-18 08:02] LABS: Scan Indicated on CBC? Y/N NO
[2021-04-18 08:20] LABS: ALB/GLOB Ratio 0.5 RATIO (0.9-2.4); AST(SGOT) 34 U/L (15-37); Alanine Aminotransfer ALT/SGPT 79 U/L (16-61); Alkaline Phosphatase 129 U/L (45-117); Anion Gap 3 (5-15); BUN 22 mg/dL (7-18); BUN/Creat Ratio 26.2 RATIO (10-20); Calcium,Total 8.4 mg/dL (8.5-10.1); Chloride 102 mmol/L (98-107); Creatinine, Serum 0.84 mg/dL (0.70-1.30); EST Glomerular Filtration Rate 98 mL/min (>60); Est Glom Filt Rate - Afr Amer 118 mL/min (>60); Estimated Creatinine Clearance 79.12 ml/min; Globulin 4.1 g/dL (2.2-4.2); Glucose 64 mg/dL (74-106); Potassium 4.1 mmol/L (3.5-5.1); Protein, Total 6.1 g/dL (6.4-8.2); Sodium Level 137 mmol/L (136-145)
[2021-04-18] MEDS: Enoxaparin 30 MG/0.3 ML Syringe SC ×2 (08:50→22:12)
[2021-04-18] MEDS: Tamsulosin HCl 0.4 MG Capsule PO (08:51)
[2021-04-18] MEDS: Sertraline 50 MG Tablet 150 MG PO (08:51)
[2021-04-18] MEDS: Aspirin 81 MG TAB.CHEW PO (08:51)
[2021-04-18] MEDS: Lisinopril 20 MG Tablet PO (08:52)
[2021-04-18] MEDS: amLODIPine 10 MG Tablet PO (08:52)
[2021-04-18] MEDS: Clopidogrel Bisulfate 75 MG Tablet PO (08:52)
[2021-04-18] MEDS: Metoprolol Tartrate 50 MG Tablet 150 MG PO ×2 (08:52→22:10)
[2021-04-18] MEDS: Insulin Lispro 100 UNIT/ML INSULN.PEN 10 UNIT SC ×3 (08:54→18:01)
[2021-04-18] MEDS: Pregabalin 50 MG Capsule 100 MG PO ×2 (09:07→22:09)
[2021-04-18] MEDS: Modafinil 200 MG Tablet PO (09:07)
[2021-04-18 09:11] LABS: Bedside Glucose 102 mg/dL (70-110)
[2021-04-18 11:56] LABS: Bedside Glucose 136 mg/dL (70-110)
--- NOTE | 2021-04-18 14:50 | CASEMGMT ---
This RN CM to room to discuss discharge plan with pt and pt states no concerns with going home at time of discharge. Pt states he would like the [place] for home oxygen if qualifies at discharge. Pt declines any further therapy at discharge, stating his /stepson can assist and he has a WW at home. CM to follow. Augustus TOLEDO CM
[2021-04-18 17:15] LABS: Bedside Glucose 171 mg/dL (70-110)
--- NOTE | 2021-04-18 17:15 | PCM.PN.HOSP ---
Subjective Subjective Patient is still on 4 L of oxygen. [facility] is [facility] and therefore it cannot be arranged until tomorrow because [facility] Objective Data Objective Data Vital Signs: Vital Signs Temp Pulse Resp BP Pulse Ox 98.2 F 72 17 113/67 87 04/18/21 15:01 04/18/21 16:41 04/18/21 15:01 04/18/21 15:01 04/18/21 15:10 Oxygen Flow Rate (L/min) [ 4 AMBULATING with Oxygen #1] Oxygen Flow Rate (L/min) [At 4 REST with Oxygen] Oxygen Flow Rate (L/min) [At 0 REST on Room Air] Oxygen Flow Rate (L/min) 4 Oxygen Delivery Method Nasal Cannula Weight: 179 lb 10.828 oz Body Mass Index (BMI) 0.0 Intake & Output: Intake and Output for Last 24 Hours 04/16/21 04/17/21 04/18/21 23:59 23:59 23:59 Intake Total 1080 / 1200 960 / 960 0 / 0 Output Total 1275 / 1475 1100 / 1100 1100 / 1100 Balance -195 / -275 -140 / -140 -1100 / -1100 Lab / Micro Data Result Diagrams: 04/18/21 06:05 04/18/21 06:05 Labs: Laboratory Results - last 24 hr 04/17/21 17:05: POC Glucose 262 H 04/17/21 21:23: POC Glucose 177 H 04/18/21 06:05: WBC 6.6, RBC 4.07 L, Hgb 11.8 L, Hct 34.7 L, MCV 85.3, MCH 29.0, MCHC 34.0, RDW Std Deviation 35.5, RDW Coeff of Eben 11.4 L, Plt Count 257, MPV 9.7 04/18/21 06:05: Sodium 137, Potassium 4.1, Chloride 102, Carbon Dioxide 32.0, Anion Gap 3 L, BUN 22 H, Creatinine 0.84, Estim Creat Clear Calc 79.12, Est GFR (MDRD) Af Amer 118, Est GFR (MDRD) Non-Af 98, BUN/Creatinine Ratio 26.2 H, Glucose 64 L, Calcium 8.4 L, Total Bilirubin 0.30, AST 34, ALT 79 H, Alkaline Phosphatase 129 H, Total Protein 6.1 L, Albumin 2.0 L, Globulin 4.1, Albumin/Globulin Ratio 0.5 L 04/18/21 08:39: POC Glucose 102 04/18/21 11:49: POC Glucose 136 H Micro: Microbiology 04/04/21 07:49 Mucosa - Nasopharyngeal Respiratory Panel (PCR) - Final 04/04/21 08:50 Urine, Clean Catch Legionella Antigen - Final 04/04/21 08:50 Urine, Clean Catch Streptococcus pneumoniae Antigen (M - Final Physical Exam Narrative Patient mild short of breath but otherwise much improvement. General: Alert, Oriented x3, Cooperative HEENT: Atraumatic, PERRLA, EOMI, Normocephalic Oral: No Gingival or Mucosal Lesions/ Ulcerations Neck: Supple, No JVD, Negative Carotid Bruits Lungs: Air entry diminished in bilateral lung bases. No crepitation/rhonchi Cardiovascular: Regular rate, Regular Rhythm, Normal S1, Normal S2, No murmurs Abdomen: Bowel Sounds Present, Soft, Non Tender, Non-Distended : No renal angle tenderness. No suprapubic tenderness. Extremities: No edema, Capillary Refill Less than 3 Seconds Skin: No rashes, No breakdown Musculoskeletal: No Tenderness to Palpation of Joints or Extremities Neurological: Cranial nerves II-XII grossly intact, DTR 2+/4 and Symmetrical Psych/Mental Status: Normal Affect, Appropriate. Assessment & Plan Assessment/Plan (1) Pneumonia due to COVID-19 virus: PLAN: 1. COVID-19 pneumonia-patient is currently on baricitinib. Patient completed dexamethasone and remdesivir. Seen by tangled yarn spool straightener/health clinician. Continue AVAPS with a nightly basis. 04/19: On 4 L of oxygen. Need oxygen set up through [facility] which might not be done until tomorrow. #2 acute hypoxic respiratory failure secondary to to bilateral COVID-19 pneumonia-as mentioned above #3 type 2 diabetes-blood sugars are monitored. Blood sugars around 250. Started on Lantus 10 units subcutaneously at bedtime daily along with sliding scale insulin lispro coverage. 04/17: Patient has glucose 84 in the morning. Lantus dose decreased at night. Lantus was changed to twice daily along with scheduled Humalog insulin. 04/18: Blood sugar low. Insulin dosage adjusted. #4 essential hypertension: Blood pressure normotensive. #5 coronary artery disease-stable at this time #6 obstructive sleep apnea #7 hyperlipidemia #8 chronic depression/anxiety #9 mild encephalopathy due to -patient is alert and appropriate today Charges/Coding Visit Charges Inpatient E&M: 37609 Subs Hosp L2
[2021-04-18] MEDS: Insulin Lispro 100 UNIT/ML INSULN.PEN SC ×2 (18:01→22:10)
[2021-04-18] MEDS: busPIRone 5 MG Tablet 10 MG PO (22:09)
[2021-04-18] MEDS: Nortriptyline 10 MG Capsule 20 MG PO (22:10)
[2021-04-18] MEDS: Atorvastatin Calcium 40 MG Tablet PO (22:10)
[2021-04-18 22:11] LABS: Bedside Glucose 169 mg/dL (70-110)
[2021-04-19] VITALS (13 sets, daily range): BP systolic 112–150; BP diastolic 65–76; PULSE 65–76; RESP 12–19; TEMP 36.5–36.8; O2SAT 93–96
[2021-04-19 08:35] LABS: Bedside Glucose 74 mg/dL (70-110)
[2021-04-19] MEDS: Pregabalin 50 MG Capsule 100 MG PO ×2 (08:36→20:00)
[2021-04-19] MEDS: Enoxaparin 30 MG/0.3 ML Syringe SC ×2 (08:36→19:55)
[2021-04-19] MEDS: Tamsulosin HCl 0.4 MG Capsule PO (08:37)
[2021-04-19] MEDS: Aspirin 81 MG TAB.CHEW PO (08:37)
[2021-04-19] MEDS: Clopidogrel Bisulfate 75 MG Tablet PO (08:38)
[2021-04-19] MEDS: Metoprolol Tartrate 50 MG Tablet 150 MG PO ×2 (08:38→19:50)
[2021-04-19] MEDS: Sertraline 50 MG Tablet 150 MG PO (08:38)
[2021-04-19] MEDS: Lisinopril 20 MG Tablet PO (08:38)
[2021-04-19] MEDS: amLODIPine 10 MG Tablet PO (08:38)
[2021-04-19] MEDS: Modafinil 200 MG Tablet PO (09:44)
--- NOTE | 2021-04-19 10:18 | CASEMGMT ---
Addendum entered by Kinsey Pichardo 04/19/21 10:34: Call from RT Aniya at [facility], and she states all necessary paperwork received and she will get it sent to [facility]. Augustus TOLEDO CM Original Note: Pt qualifies for home oxygen, 4L continuous and order faxed to [facility] after all paperwork completed. Pt states no need for any further therapy/resources at this time. Pt provided copy of [facility] paperwork. CM to follow. Augustus TOLEDO CM
--- NOTE | 2021-04-19 11:13 | DCINST_ITS ---
Discharge Instructions Diet Discharge Diet: Low fat / Low cholesterol, 1800 Calorie Control Diet and 2000 mg Sodium Diet Activity Discharge Activity: Return to Normal Activity and May Not Drive Weight Bearing Status: Weight bearing as tolerated Dressing / Incision Call your doctor if you observe: Fever of 101 or Higher, Coldness, Increased Pain, Numbness or Tingling, Change in Color, Inability to urinate, Inability to have a bowel movement, Shortness of breath, Dizziness, Fainting spells, Swelling in the ankles, Chest pain, Prolonged hiccupping, Increased palpitations (irregular heartbeat) and Calf discomfort Follow Up Care Test Results: Test results from this visit will be discussed in further detail at your follow-up appointment, if applicable. Discharge Plan Admission Admit Date/Time: 04/04/21 04:27 Primary Reason for Your Visit: COVID-19 pneumonia Attending Provider: Anthony Mason Primary Care Provider: [place] Consulting Providers: Darrell Stevens ; Elvis Bowie ; Terrell Rendon ; Criss Parish MANAGER OUTPATIENT Instructions Additional Instructions / Restrictions: [id number] Mucinex DM 1 tablet twice daily as needed for cough. Discharge Orders/Prescriptions Prescriptions: New Eliquis 2.5 mg tablet 2.5 mg PO BID Qty: 30 RF: 0 Continued metoprolol tartrate 100 MG tablet 150 mg PO BID RF: 0 amlodipine 5 MG tablet 10 mg PO DAILY RF: 0 nortriptyline 10 MG capsule 20 mg PO DAILY RF: 0 metformin 1,000 MG tablet 1,000 mg PO DAILY RF: 0 lisinopril [Prinivil] 10 MG tablet 20 mg PO DAILY RF: 0 pregabalin 25 MG capsule 100 mg PO BID RF: 0 calcium carbonate 500 MG tablet 500 mg PO BID RF: 0 Fish Oil 1 EACH capsule 1,000 mg PO BID RF: 0 cholecalciferol (vitamin D3) [Vitamin D3] 1,000 UNIT tablet 1,000 unit PO DAILY RF: 0 Victoza 2-Adan 0.6 MG/0.1 ML pen injector 1.8 mg SQ DAILY RF: 0 sertraline 100 MG tablet 150 mg PO DAILY RF: 0 modafinil 200 MG tablet 200 mg PO DAILY RF: 0 buspirone 10 MG tablet 10 mg PO QHS RF: 0 atorvastatin 10 MG tablet 40 mg PO QHS RF: 0 aspirin 81 MG tablet,chewable 81 mg PO DAILY@0800 RF: 0 tamsulosin 0.4 mg Capsule 0.4 mg PO DAILY RF: 0 clopidogrel 75 mg Tablet 75 mg PO DAILY Qty: 30 RF: 0 [facility] Provider[facility] -
[2021-04-19] MEDS: Insulin Lispro 100 UNIT/ML INSULN.PEN SC ×2 (11:17→16:21)
[2021-04-19] MEDS: Insulin Lispro 100 UNIT/ML INSULN.PEN 10 UNIT SC ×2 (11:18→16:21)
--- NOTE | 2021-04-19 11:19 | PCM.DC.SUM ---
Providers Date of Admission: 04/04/21 Primary Care Physician: [facility] Consultations 04/05/21 07:34 Consult: [place] [facility] / Pulmonary Medicine Routine Consulting Provider: Pulmonary Medicine billy Bolivar Reason for Consult: acute hypoxic respiratory failure due to covid EMERGENT Consult: No Notified: Yes Date Notified: 04/05/21 Time Notified: 07:34 Method of Notification: Text 04/06/21 07:25 Consult: Infectious Disease Routine Consulting Provider: Darrell Stevens Reason for Consult: acute hypoxic respiratory failure due to covid EMERGENT Consult: No Notified: Yes Date Notified: 04/06/21 Time Notified: 09:13 Method of Notification: Text Reason For Visit: COVID PNA, HYPOXIA Diagnosis Discharge Diagnosis (1) Pneumonia due to COVID-19 virus: Status: Acute Code(s): U07.1 - COVID-19; J12.82 - Pneumonia due to coronavirus disease 2019 Medications at Discharge Home Medications amlodipine 10 mg PO DAILY 10/05/16 lisinopril [Prinivil] 20 mg PO DAILY 10/05/16 metformin 1,000 mg PO DAILY 10/05/16 metoprolol tartrate 150 mg PO BID 10/05/16 nortriptyline 20 mg PO DAILY 10/05/16 Fish Oil 1,000 mg PO BID 08/17/17 Victoza 2-Adan 1.8 mg SQ DAILY 08/17/17 calcium carbonate 500 mg PO BID 08/17/17 cholecalciferol (vitamin D3) [Vitamin D3] 1,000 unit PO DAILY 08/17/17 pregabalin 100 mg PO BID 08/17/17 buspirone 10 mg PO QHS 06/17/19 modafinil 200 mg PO DAILY 06/17/19 sertraline 150 mg PO DAILY 06/17/19 aspirin 81 mg PO DAILY@0800 08/17/19 atorvastatin 40 mg PO QHS 08/17/19 tamsulosin 0.4 mg PO DAILY 03/30/21 clopidogrel 75 mg PO DAILY #30 tab 03/31/21 apixaban [Eliquis] 2.5 mg PO BID #30 tab 04/19/21 Hospital Course Summary of Care Provided Hospital Course: This 66-year-old gentleman with multiple comorbidities including diabetes mellitus type 2, hypertension was originally admitted on 03/30 Covid symptoms started on 03/27 headache, fever chills and decreased sense of taste. Patient was discharged and then readmitted on 04/04 for COVID-19 pneumonia. His further hospital course and management as follows. 1. COVID-19 pneumonia-patient is currently on baricitinib. Patient completed dexamethasone and remdesivir. 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 Patient had AVAPS with a nightly basis. Currently on 4 L of oxygen. The oxygen was set up through [facility]. Patient is ambulatory in home and in the community and requires home oxygen with portability. #2 acute hypoxic respiratory failure secondary to to bilateral COVID-19 pneumonia-as mentioned above #3 type 2 diabetes-blood sugars are monitored. Blood sugars around 250. Started on Lantus 10 units subcutaneously at bedtime daily along with sliding scale insulin lispro coverage. Lantus and lispro dose was adjusted while the patient was in the hospital. At home patient is on Victoza and continued. Follow with PCP. #4 essential hypertension: Blood pressure normotensive. #5 coronary artery disease-stable at this time #6 obstructive sleep apnea #7 hyperlipidemia #8 chronic depression/anxiety #9 mild encephalopathy due to -patient is alert and appropriate today: Resolved. Discharge medication reconciliation done. Discharge follow-up instructions completed. Discharge process discussed with the patient and all questions were answered to patient's satisfaction. Total time spent, exact 35 minutes on discharge meds reconciliation, examination, coordination of care with nurses and ancillary staff, review of imaging and blood test and discussion with the patient on follow-up instructions Physical Exam Narrative Patient not short of breath at rest. On 4 L of oxygen. General: Alert, Oriented x3, Cooperative HEENT: Atraumatic, PERRLA, EOMI, Normocephalic Oral: No Gingival or Mucosal Lesions/ Ulcerations Neck: Supple, No JVD, Negative Carotid Bruits Lungs: Air entry diminished in bilateral lung bases. No crepitation/rhonchi Cardiovascular: Regular rate, Regular Rhythm, Normal S1, Normal S2, No murmurs Abdomen: Bowel Sounds Present, Soft, Non Tender, Non-Distended : No renal angle tenderness. No suprapubic tenderness. Extremities: No edema, Capillary Refill Less than 3 Seconds Skin: No rashes, No breakdown Musculoskeletal: No Tenderness to Palpation of Joints or Extremities Neurological: Cranial nerves II-XII grossly intact, DTR 2+/4 and Symmetrical Psych/Mental Status: Normal Affect, Appropriate. Weight / BMI Weight Weight: 179 lb 0.246 oz Body Mass Index (BMI) 0.0 ABG / Lab / Microbiology Data Result Diagrams: 04/18/21 06:05 04/18/21 06:05 Laboratory: Laboratory Results - last 24 hr 04/18/21 11:49: POC Glucose 136 H 04/18/21 17:07: POC Glucose 171 H 04/18/21 22:04: POC Glucose 169 H 04/19/21 08:20: POC Glucose 74 Microbiology: Microbiology 04/04/21 07:49 Mucosa - Nasopharyngeal Respiratory Panel (PCR) - Final 04/04/21 08:50 Urine, Clean Catch Legionella Antigen - Final 04/04/21 08:50 Urine, Clean Catch Streptococcus pneumoniae Antigen (M - Final D/C Instructions Discharge Diet: Low fat / Low cholesterol, 1800 Calorie Control Diet and 2000 mg Sodium Diet Weight Bearing Status: Weight bearing as tolerated Call your doctor if you observe: Fever of 101 or Higher, Coldness, Increased Pain, Numbness or Tingling, Change in Color, Inability to urinate, Inability to have a bowel movement, Shortness of breath, Dizziness, Fainting spells, Swelling in the ankles, Chest pain, Prolonged hiccupping, Increased palpitations (irregular heartbeat) and Calf discomfort Meaningful Use Info Meaningful Use Diagnoses (Choose all that apply): None applicable Discharge Plan Admission Admit Date/Time: 04/04/21 04:27 Primary Reason for Your Visit: COVID-19 pneumonia Attending Provider: Anthony Mason Primary Care Provider: [facility] Consulting Providers: Darrell Stevens ; Elvis Bowie ; Terrell Rendon ; [place] GREEN MEAT PACKER Instructions Additional Instructions / Restrictions: [id number] Mucinex DM 1 tablet twice daily as needed for cough. Discharge Orders/Prescriptions Prescriptions: New Eliquis 2.5 mg tablet 2.5 mg PO BID Qty: 30 RF: 0 Continued metoprolol tartrate 100 MG tablet 150 mg PO BID RF: 0 amlodipine 5 MG tablet 10 mg PO DAILY RF: 0 nortriptyline 10 MG capsule 20 mg PO DAILY RF: 0 metformin 1,000 MG tablet 1,000 mg PO DAILY RF: 0 lisinopril [Prinivil] 10 MG tablet 20 mg PO DAILY RF: 0 pregabalin 25 MG capsule 100 mg PO BID RF: 0 calcium carbonate 500 MG tablet 500 mg PO BID RF: 0 Fish Oil 1 EACH capsule 1,000 mg PO BID RF: 0 cholecalciferol (vitamin D3) [Vitamin D3] 1,000 UNIT tablet 1,000 unit PO DAILY RF: 0 Victoza 2-Adan 0.6 MG/0.1 ML pen injector 1.8 mg SQ DAILY RF: 0 sertraline 100 MG tablet 150 mg PO DAILY RF: 0 modafinil 200 MG tablet 200 mg PO DAILY RF: 0 buspirone 10 MG tablet 10 mg PO QHS RF: 0 atorvastatin 10 MG tablet 40 mg PO QHS RF: 0 aspirin 81 MG tablet,chewable 81 mg PO DAILY@0800 RF: 0 tamsulosin 0.4 mg Capsule 0.4 mg PO DAILY RF: 0 clopidogrel 75 mg Tablet 75 mg PO DAILY Qty: 30 RF: 0 [facility] - Charges/Coding Visit Charges Inpatient E&M: 23224 Disch Hosp
[2021-04-19 11:31] LABS: Bedside Glucose 232 mg/dL (70-110)
[2021-04-19 17:05] LABS: Bedside Glucose 255 mg/dL (70-110)
[2021-04-19] MEDS: Atorvastatin Calcium 40 MG Tablet PO (19:49)
[2021-04-19] MEDS: Nortriptyline 10 MG Capsule 20 MG PO (19:49)
[2021-04-19] MEDS: busPIRone 5 MG Tablet 10 MG PO (20:00)
--- NOTE | 2021-04-19 20:02 | NURSING ---
Addendum entered by Maria Guadalupe Montiel 04/19/21 20:15: Krystian education on home oxygen use also given to the family. Emphasized the importance of having eliquis filled tomorrow at [facility] his preferred pharmacy Original Note: Discharge Instructions given pt and family state understanding. IV and tele removed. Discussed new prescription for eliquis. HS medications except insulins given prior to dc per family request. PT was discharged home at this time with belongings.
--- NOTE | 2021-04-20 15:20 | CASEMGMT ---
TRE RODRIGUEZ Discharge Follow-Up Phone Call. Lace: 10 Strata: 3 Discharge Date: 04/19/21 Adm Dx: COVID PNA, hypoxia Attempted discharge f/u phone call. No answer and VM full. Called pt's 's #. No answer and her VM also full. Noted pt discharged home on Eliquis and unsure if pt received Eliquis 30-day savings card prior to discharge. TC to Yocasta @ [facility] to inquire if pt has picked up the Eliquis. She states Eliquis is on hold and she is not sure why. Cost for Eliquis w/out the savings card is $266.03. Yocasta provided w/Eliquis savings card and she applied it. She confirms pt has no co-pay after savings card applied. TC to pt's daughter, Marie. She was made aware TRE RORDIGUEZ unable to reach pt or his for d/c f/u phone call and to inform pt about Eliquis savings card. She was informed that Eliquis savings card has been applied, Eliquis will be free for pt, and it is ready to be picked up @ [facility]. She states she will relay this information to her father and will have him contact TRE RODRIGUEZ if he has any questions re: medication or discharge instructions. She was provided w/this TRE RODRIGUEZ's #. Vijay HRENANDEZ RN, CM
== END 2021-04-19 20:15 | disposition home or self-care (01) | DRG 177 ==
LOC: ED 04:30 → MS3 05:13 → ICU 04-07 09:46 → PCU 04-15 12:59
PROVIDERS: Internal Medicine; Internal Medicine Critical Care Medicine; Internal Medicine Infectious Disease; Student in an Organized Health Care Education/Training Program; Admitting Provider Family Medicine; Emergency Provider Emergency Medicine; Visit Provider Internal Medicine
DX: U07.1 COVID-19 (principal); J12.82 Pneumonia due to coronavirus disease 2019; J96.01 Acute respiratory failure with hypoxia; N17.9 Acute kidney failure, unspecified; G93.49 Other encephalopathy; J47.0 Bronchiectasis with acute lower respiratory infection; E87.6 Hypokalemia; I25.10 Atherosclerotic heart disease of native coronary artery without angina pectoris; I10 Essential (primary) hypertension; E78.5 Hyperlipidemia, unspecified; E03.9 Hypothyroidism, unspecified; G47.33 Obstructive sleep apnea (adult) (pediatric); N40.0 Benign prostatic hyperplasia without lower urinary tract symptoms; E11.40 Type 2 diabetes mellitus with diabetic neuropathy, unspecified; E11.65 Type 2 diabetes mellitus with hyperglycemia; Z79.4 Long term (current) use of insulin; F41.9 Anxiety disorder, unspecified; F32.A Depression, unspecified; Z66 Do not resuscitate; G89.4 Chronic pain syndrome; Z28.3 Underimmunization status; H54.61 Unqualified visual loss, right eye, normal vision left eye; H91.93 Unspecified hearing loss, bilateral; K21.9 Gastro-esophageal reflux disease without esophagitis; M81.0 Age-related osteoporosis without current pathological fracture; Z79.02 Long term (current) use of antithrombotics/antiplatelets; Z79.82 Long term (current) use of aspirin; Z82.49 Family history of ischemic heart disease and other diseases of the circulatory system; Z83.3 Family history of diabetes mellitus; Z86.73 Personal history of transient ischemic attack (TIA), and cerebral infarction without residual deficits; Z90.49 Acquired absence of other specified parts of digestive tract; Z87.891 Personal history of nicotine dependence
CPT/HCPCS: 36415; 36600; 71045; 71275; 80048; 80053; 82728; 82803; 82962; 83605; 83615; 83735; 83880; 84100; 84145; 84439; 84443; 84484; 85025; 85027; 85379; 86140; 87449; 87633; 87641; 94002; 94003; 94660; 97110; 97150; 97162; 97166; 97530; 97535; 99285; J7050; Q9967; A4216; J1940

== ENCOUNTER 2021-10-05 14:35 | Emergency (ER) | payer OTHER, SELFPAY ==
[2021-10-05 14:36] VITALS: BP 168/107; PULSE 97; RESP 14; TEMP 36.4; O2SAT 100; BMI 29.7
--- NOTE | 2021-10-05 15:19 | EKG12_ITS ---
Test Reason : HIGH BP Blood Pressure : / mmHG Vent. Rate : 092 BPM Atrial Rate : 092 BPM P-R Int : 186 ms QRS Dur : 106 ms QT Int : 388 ms P-R-T Axes : 030 -17 092 degrees QTc Int : 479 ms Normal sinus rhythm Poor R wave progression Confirmed by REX FERREIRA, URSZULA ([id number]), photograph editor GENARO JIMENEZ ([id number]) on 10/09/2021 9:08:22 AM Referred By: Confirmed By:URSZULA GOODMAN MD
--- NOTE | 2021-10-05 15:22 | EDS_ITS ---
HPI <MARY Sung - Last Filed: 10/05/21 17:30> History of Present Illness Chief Complaint: Hypertension Narrative Narrative: 66-year-old male with history of CAD, hypertension, diabetes presents to the emergency department with left-sided chest pain, epigastric area, left arm muscle aches as well as left shoulder blade pain. Patient states this started on 10 AM when he was in bed. Patient has had increased blood pressure today, also states he felt more dizzy than he is usually. Patient's last echocardiogram was 1 year ago, patient denies any shortness of breath. Patient states the pain is still consistent at around a 4 and he describes it as a cramping, ache pain to his left arm, left shoulder blade. Patient denies any injury, fever chills nausea or vomiting. [facility] <MARY Sung - Last Filed: 10/05/21 17:30> [facility] Medical History (Updated 10/05/21 @ 16:57 by MARY Sung) Anxiety Chest pain Chronic pain Coronary artery disease CPAP (continuous positive airway pressure) dependence Depression Diabetes Elevated lipase Former smoker GERD (gastroesophageal reflux disease) GI bleed Hearing loss, left Hearing loss, right History of COVID-19 Hypertension Hypothyroidism Migraines Myocardial infarct Osteoporosis Sleep apnea Vision loss of right eye Home Medications amlodipine 10 mg PO DAILY 10/05/16 [History Last Taken 04/03/21 22:00] lisinopril [Prinivil] 20 mg PO DAILY 10/05/16 [History Last Taken 04/03/21 08:00] metformin 1,000 mg PO DAILY 10/05/16 [History Last Taken 04/03/21 08:00] metoprolol tartrate 150 mg PO BID 10/05/16 [History Last Taken 04/03/21 08:00] nortriptyline 20 mg PO DAILY 10/05/16 [History Last Taken 04/03/21 08:00] Fish Oil 1,000 mg PO BID 08/17/17 [History Last Taken 04/03/21 08:00] Victoza 2-Adan 1.8 mg SQ DAILY 08/17/17 [History Last Taken 04/03/21 14:00] calcium carbonate 500 mg PO BID 08/17/17 [History Last Taken 04/03/21 08:00] cholecalciferol (vitamin D3) [Vitamin D3] 1,000 unit PO DAILY 08/17/17 [History Last Taken 04/03/21 08:00] pregabalin 100 mg PO BID 08/17/17 [History Last Taken 04/03/21 08:00] buspirone 10 mg PO QHS 06/17/19 [History Last Taken 04/03/21 22:00] modafinil 200 mg PO DAILY 06/17/19 [History Last Taken 04/03/21 08:00] sertraline 150 mg PO DAILY 06/17/19 [History Last Taken 04/03/21 08:00] aspirin 81 mg PO DAILY@0800 08/17/19 [History Last Taken 04/03/21 08:00] atorvastatin 40 mg PO QHS 08/17/19 [History Last Taken 04/03/21 22:00] tamsulosin 0.4 mg PO DAILY 03/30/21 [History Last Taken 04/03/21 08:00] clopidogrel 75 mg PO DAILY #30 tab 03/31/21 [Rx Last Taken 04/03/21 08:00] apixaban [Eliquis] 2.5 mg PO BID #30 tab 04/19/21 [Rx Last Taken Unknown] hydrocodone-acetaminophen 1 tab PO Q6H PRN 3 Days #10 tab 10/05/21 [Rx Last Taken Unknown] ondansetron 4 mg PO Q8H PRN #10 tab 10/05/21 [Rx Last Taken Unknown] Allergy/AdvReac Type Severity Reaction Status Date / Time No Known Allergies Allergy Verified 10/05/21 14:36 Family History (Updated 03/30/21 @ 02:54 by Valerie Corona) Mother Diabetes Father Heart disease CVA (cerebral vascular accident) Surgical History History of back surgery History of cholecystectomy Social History household members: spouse and children housing: apartment current occupational status: disabled Smoking Status: Former smoker Tobacco: How many years used: 30 diet: diabetic what type of physical activity do you participate in: walking ROS <MARY Sung - Last Filed: 10/05/21 17:30> ROS ED ROS Narrative Constitutional: Negative for fever, chills, weight loss, weakness Eyes: Negative for vision loss, vision change, double vision ENT: Negative for any sore throat, ear pain, congestion Cardiovascular: Negative for any tightness, palpitations, racing heartbeat. Positive for chest pain, epigastric pain Respiratory: Negative for any cough, sputum production, hemoptysis, shortness of breath, shortness of breath on exertion, orthopnea Gastrointestinal: Negative for any abdominal pain, nausea, vomiting, diarrhea, constipation, blood in stool, blood in vomit : Negative for any urinary frequency, incontinence, dysuria, retention, blood in urine Muscle skeletal: Negative for any muscle joint pain, stiffness, myalgias, arthralgias, neck pain, back pain. Positive for left shoulder blade pain, left arm achiness Neurological: Negative for any headache, dizziness, syncope, numbness or tingling Skin: Negative for any rashes, lumps, itching, abrasions, lacerations Psychiatric: Negative for any depression, anxiety, stress, suicidal ideation, homicidal ideation Hematologic: Negative for any easy bruising, excessive bruising, easy bleeding Allergies: Negative for any eczema, hives, rash EXAM <MARY Sung - Last Filed: 10/05/21 17:30> Physical Exam Narrative Exam Narrative: Vital signs reviewed. Patient's blood pressure 160/112, patient is stable, no distress. HEET: Head normocephalic atraumatic, TMs clear bilaterally. Posterior pharynx is clear, moist mucous membranes. Nares clear bilaterally. Neck: Supple with no lymphadenopathy or tenderness. No signs of meningismus, negative jolt sign. Cardiac: Regular rate and rhythm no murmurs gallops or rubs, equal peripheral pulses bilaterally. Respiratory: Lungs clear to auscultation bilaterally. No chest tenderness. Abdomen: Soft, nontender, nondistended. No abdominal bruit or pulsatile masses. No hepatosplenomegaly Extremities: No peripheral edema, no signs of gross trauma or deformity. Active full range of motion of all extremities. Neuro: Cranial nerves II through XII intact, no focal neurological deficits. Skin: Clean dry and intact with no rash, purpura, petechiae, vesicles or pustules. Backslash flank: No CVA tenderness, no midline spinal tenderness, no deformity. Psych: Normal mood and affect. No SI, HI or acute psychosis. Const Vital Signs: 10/05/21 14:36 10/05/21 15:48 10/05/21 16:30 Temperature 97.6 F L Temperature Source Temporal Pulse Rate 97 94 95 Respiratory Rate 14 20 H 20 H Respiratory Effort Normal Non-Labored Blood Pressure 168/107 H 167/102 H 178/111 H Blood Pressure Mean 127 123 133 Pulse Ox 100 98 98 Oxygen Delivery Method Room Air Room Air Room Air 10/05/21 17:55 Temperature Temperature Source Pulse Rate 84 Respiratory Rate 17 Respiratory Effort Blood Pressure 176/100 H Blood Pressure Mean Pulse Ox 98 Oxygen Delivery Method Positive well nourished and well developed General Appearance ED: well developed <Dr. Real Mendoza MD - Last Filed: 10/05/21 22:14> Physical Exam Const Vital Signs: 10/05/21 14:36 10/05/21 15:48 10/05/21 16:30 Temperature 97.6 F L Temperature Source Temporal Pulse Rate 97 94 95 Respiratory Rate 14 20 H 20 H Respiratory Effort Normal Non-Labored Blood Pressure 168/107 H 167/102 H 178/111 H Blood Pressure Mean 127 123 133 Pulse Ox 100 98 98 Oxygen Delivery Method Room Air Room Air Room Air 10/05/21 17:55 Temperature Temperature Source Pulse Rate 84 Respiratory Rate 17 Respiratory Effort Blood Pressure 176/100 H Blood Pressure Mean Pulse Ox 98 Oxygen Delivery Method MDM <MARY Sung - Last Filed: 10/05/21 17:30> [facility] Narrative Medical decision making narrative: Patient appears well, patient appears nontoxi c, vital signs are stable. Patient presents to the emergency department with epigastric pain, left shoulder pain. Patient also states that he noticed his blood pressure was a bit more elevated today. Patient did receive a full work- up, patient CBC was unremarkable, patient's chemistries showed elevated blood glucose at 257, patient's ALT was 67 with an alkaline phosphatase of 120, this is baseline for the patient. However patient did have an elevated lipase at 1086. This is consistent with acute pancreatitis, this could also cause his symptoms. Patient's troponin was negative. Patient EKG showed normal sinus rhythm with no acute ST elevation. Patient's chest x-ray showed no cardiopulmonary process. At this time, patient is not vomiting, patient is not febrile, negative for any endorgan damage. Patient meets criteria to follow-up outpatient. Patient be given pain medicine, nausea medicine, he will follow-up with his PCP. Patient will also follow-up with his PCP regarding his blood pressure. At this time, patient is stable for discharge Lab Data Labs: Laboratory Results - last 24 hr 10/05/21 10/05/21 10/05/21 15:28 15:28 15:28 WBC 6.3 RBC 4.99 Hgb 14.7 Hct 41.6 MCV 83.4 MCH 29.5 MCHC 35.3 RDW Std Deviation 36.8 RDW Coeff of Eben 12.1 Plt Count 182 MPV 10.2 Immature Gran % (Auto) 0.300 Neut % (Auto) 59.9 Lymph % (Auto) 27.5 Bailey % (Auto) 8.5 Eos % (Auto) 3.3 Baso % (Auto) 0.5 Absolute Neuts (auto) 3.8 Absolute Lymphs (auto) 1.74 Nucleated RBC % 0 Sodium 137 Potassium 3.9 Chloride 102 Carbon Dioxide 31.0 Anion Gap 4 L BUN 13 Creatinine 1.09 Estim Creat Clear Calc 60.97 Est GFR (MDRD) Af Amer 87 Est GFR (MDRD) Non-Af 72 BUN/Creatinine Ratio 11.9 Glucose 257 H Calcium 8.9 Total Bilirubin 0.60 Direct Bilirubin 0.15 AST 34 ALT 67 H Alkaline Phosphatase 120 H Troponin I High Sens 54 Total Protein 7.6 Albumin 3.5 Globulin 4.1 Lipase 1086 H Radiography Chest X-Ray - ED: 1 View Diagnostic Testing: Clinical Impression(s) from Imaging Studies Chest X-Ray 10/05/21 15:56 IMPRESSION: Normal x-ray examination of the chest. Electronically Signed: Ventura Hoffman MD at 16:46 EDT Reading Location ID and State: [facility] / [place] , Service support , EKG Normal sinus rhythm: Attestation: I personally reviewed and interpreted this EKG as follows: Comments: Normal sinus rhythm, rate of 92 bpm, AZ interval 186 ms, QRS duration 106 ms, no acute ST elevation, no acute infarct noted <Dr. Real Mendoza MD - Last Filed: 10/05/21 22:14> MDM MDM Narrative Medical decision making narrative: I have personally performed a face to face assessment of the patient and have reviewed the TRANG Note. I performed a substantive portion of the visit including all aspects of the following. My mcmillan findings include: History is remarkable for pain in the left arm, scapula. Patient denies dyspnea on exertion. Denies orthopnea PND. He denies history of VTE. Denies leg pain, swelling discoloration. He denies fever, chills night sweats. He denies upper respiratory symptoms. He has a remote history of pancreatitis due to alcohol use. Has not had alcohol in 6 years. He denies hematemesis, melena medic easier. He denies change in color of urine or stool. Exam is is unremarkable for anything acute. HEENT exams unremarkable. Heart lung exams unremarkable. Abdomen soft nontender. There is no paraspinal megaly. There is negative clinical Akbar sign. There is no CVA tenderness noted. There is no neurovascular findings to the upper or lower extremities. Axillary, median, radial and ulnar function intact. Medical Decision Making differential diagnosis would be atypical presentation for cardiac versus GI etiology and specifically GERD. Will obtain EKG, chest x- ray and appropriate blood work. Other additions or changes: [None] Lab Data Attestation: I reviewed the patient's lab results. Lab results narrative: CBC is unremarkable. Comprehensive metabolic panel is remarkable for slight elevation ALT and alk phos with a lipase of 1086. Since patient is not vomiting has minimal discomfort he is a candidate for outpatient treatment with pain medicine and antiemetic. Labs: Laboratory Results - last 24 hr 10/05/21 10/05/21 10/05/21 15:28 15:28 15:28 WBC 6.3 RBC 4.99 Hgb 14.7 Hct 41.6 MCV 83.4 MCH 29.5 MCHC 35.3 RDW Std Deviation 36.8 RDW Coeff of Eben 12.1 Plt Count 182 MPV 10.2 Immature Gran % (Auto) 0.300 Neut % (Auto) 59.9 Lymph % (Auto) 27.5 Bailey % (Auto) 8.5 Eos % (Auto) 3.3 Baso % (Auto) 0.5 Absolute Neuts (auto) 3.8 Absolute Lymphs (auto) 1.74 Nucleated RBC % 0 Sodium 137 Potassium 3.9 Chloride 102 Carbon Dioxide 31.0 Anion Gap 4 L BUN 13 Creatinine 1.09 Estim Creat Clear Calc 60.97 Est GFR (MDRD) Af Amer 87 Est GFR (MDRD) Non-Af 72 BUN/Creatinine Ratio 11.9 Glucose 257 H Calcium 8.9 Total Bilirubin 0.60 Direct Bilirubin 0.15 AST 34 ALT 67 H Alkaline Phosphatase 120 H Troponin I High Sens 54 Total Protein 7.6 Albumin 3.5 Globulin 4.1 Lipase 1086 H Radiography Chest X-Ray - ED: 1 View, Read by ED Physician, Unchanged, Normal, Heart, Mediastinum, Bony Structures, No Acute Disease and Chronic Changes Diagnostic Testing: Clinical Impression(s) from Imaging Studies Chest X-Ray 10/05/21 15:56 IMPRESSION: Normal x-ray examination of the chest. Electronically Signed: Ventura Hoffman MD at 16:46 EDT Reading Location ID and State: [address] [place] [address] , Service support , Discharge Plan Triage Chief Complaint: Hypertension ED Midlevel Provider: Adilson Hankins ED Provider: Real Mendoza Dx/Rx/DC Orders Clinical Impression: Acute pancreatitis, Essential (primary) hypertension, DM2 (diabetes mellitus, type 2) Instructions: Diabetes and Heart Disease, Pancreatitis Acute Dc, ED Pancreatitis Prescriptions: New hydrocodone-acetaminophen 5-325 mg tablet 1 tab PO Q6H PRN (Reason: pain) 3 Days Qty: 10 RF: 0 ondansetron 4 mg tablet,disintegrating 4 mg PO Q8H PRN (Reason: nausea and vomiting) Qty: 10 RF: 0 No Action metoprolol tartrate 100 MG tablet 150 mg PO BID RF: 0 amlodipine 5 MG tablet 10 mg PO DAILY RF: 0 nortriptyline 10 MG capsule 20 mg PO DAILY RF: 0 metformin 1,000 MG tablet 1,000 mg PO DAILY RF: 0 lisinopril [Prinivil] 10 MG tablet 20 mg PO DAILY RF: 0 pregabalin 25 MG capsule 100 mg PO BID RF: 0 calcium carbonate 500 MG tablet 500 mg PO BID RF: 0 Fish Oil 1 EACH capsule 1,000 mg PO BID RF: 0 cholecalciferol (vitamin D3) [Vitamin D3] 1,000 UNIT tablet 1,000 unit PO DAILY RF: 0 Victoza 2-Adan 0.6 MG/0.1 ML pen injector 1.8 mg SQ DAILY RF: 0 sertraline 100 MG tablet 150 mg PO DAILY RF: 0 modafinil 200 MG tablet 200 mg PO DAILY RF: 0 buspirone 10 MG tablet 10 mg PO QHS RF: 0 atorvastatin 10 MG tablet 40 mg PO QHS RF: 0 aspirin 81 MG tablet,chewable 81 mg PO DAILY@0800 RF: 0 tamsulosin 0.4 mg Capsule 0.4 mg PO DAILY RF: 0 clopidogrel 75 mg Tablet 75 mg PO DAILY Qty: 30 RF: 0 Eliquis 2.5 mg tablet 2.5 mg PO BID Qty: 30 RF: 0 [facility] [Primary Care Provider] - Activity Restrictions/Additional Instructions: Please follow-up for your blood pressure, please follow-up with your acute pancreatitis with your PCP. Please have a bland diet, clear liquids for the nex t 24 hours. Please use pain medicine, nausea medicine as needed. Please return for any worsening symptoms. Print Language: Faroese Disposition Disposition: Home, Self Care Discharge Date/Time: 10/05/21 17:56
[2021-10-05 15:38] LABS: Absolute Lymphocyte Count 1.74 X10^3/uL (0.83-4.51); Absolute Neutrophil Count 3.8 X10^3/uL (2.0-7.7); Basophil# 0.03 X10^3/uL; Basophil% 0.5 % (0-1); Eosinophil# 0.21 X10^3/uL; Eosinophils% 3.3 % (0-5); Hematocrit 41.6 % (40-54); Hemoglobin 14.7 g/dL (13.0-16.5); Lymphocyte # 1.74 X10^3/ul (0.83-4.51); Lymphocyte % 27.5 % (19-41); Mean Corp Hgb Conc 35.3 g/dL (32-36); Mean Corpuscular Hgb 29.5 pg (27.0-32.0); Mean Corpuscular Volume 83.4 fL (80-94); Mean Platelet Vol. 10.2 fl (6.2-12.0); Monocyte# 0.54 X10^3/uL; Monocyte% 8.5 % (0-10); NRBC Flagged by Analyzer 0 % (0-5); Neutrophil # 3.79 X10^3/uL (2.7-7.7); Neutrophil % 59.9 % (47-70); Platelet Count 182 K/mm3 (150-450); RBC Distribution Width CV 12.1 % (11.6-14.6); RBC Distribution Width SD 36.8 fl (35.1-43.9); Red Blood Count 4.99 M/mm3 (4.6-6.2); White Blood Count 6.3 K/mm3 (4.4-11.0)
[2021-10-05 15:48] VITALS: BP 167/102; PULSE 94; RESP 20; O2SAT 98; O2SAT 99
[2021-10-05] MEDS: Aspirin 81 MG TAB.CHEW 324 MG PO (15:53)
--- NOTE | 2021-10-05 15:56 | RAD_ITS ---
STUDY: X-RAY CHEST REASON FOR EXAM: Male, 66 years old. chest pain TECHNIQUE: Single frontal view of the chest. COMPARISON: CT chest 04/04/2021 and chest x-ray 04/04/2021 FINDINGS: The lungs are clear and expanded. There is no demonstrated pleural abnormality. Normal size heart. Normal mediastinum and orin. Normal visualized pulmonary arteries. Normal visualized aortic arch and descending thoracic aorta. Normal visualized thoracic spine. Normal visualized ribs, clavicles, and shoulders. There is no demonstrated abnormality of the visualized soft tissue structures of the upper abdomen. RAD/Chest 1 View (Portable) IMPRESSION: Normal x-ray examination of the chest. Electronically Signed: Ventura Hoffman MD at 16:46 EDT ,
[2021-10-05 15:57] LABS: AST(SGOT) 34 U/L (15-37); Alanine Aminotransfer ALT/SGPT 67 U/L (16-61); Albumin, Serum 3.5 g/dL (3.2-5.0); Alkaline Phosphatase 120 U/L (45-117); Anion Gap 4 (5-15); BUN 13 mg/dL (7-18); BUN/Creat Ratio 11.9 RATIO (10-20); Bilirubin, Direct 0.15 mg/dL (0.00-0.30); Calcium,Total 8.9 mg/dL (8.5-10.1); Chloride 102 mmol/L (98-107); Creatinine, Serum 1.09 mg/dL (0.70-1.30); EST Glomerular Filtration Rate 72 mL/min (>60); Est Glom Filt Rate - Afr Amer 87 mL/min (>60); Estimated Creatinine Clearance 60.97 ml/min; Globulin 4.1 g/dL (2.2-4.2); Glucose 257 mg/dL (74-106); Lipase 1086 U/L (73-393); Potassium 3.9 mmol/L (3.5-5.1); Protein, Total 7.6 g/dL (6.4-8.2); Sodium Level 137 mmol/L (136-145)
[2021-10-05 16:30] VITALS: BP 178/111; PULSE 95; RESP 20; O2SAT 98
[2021-10-05 17:23] LABS: Troponin-I HS (w/2H Reflex) 54 pg/mL (3.0-78.0)
[2021-10-05] MEDS: Ondansetron ODT 4 MG Tablet PO (17:53)
[2021-10-05] MEDS: HYDROcodone Bitartrate/Apap 5/325 Tablet PO (17:53)
[2021-10-05 17:55] VITALS: BP 176/100; PULSE 84; RESP 17; O2SAT 98
[2021-10-05 18:46] LABS: Reflex Troponin-HS? (from REC) Y
== END 2021-10-05 17:56 | disposition home or self-care (01) ==
PROVIDERS: Nurse Practitioner; Emergency Provider Emergency Medicine; Visit Provider Emergency Medicine
DX: K85.90 Acute pancreatitis without necrosis or infection, unspecified (principal); E11.65 Type 2 diabetes mellitus with hyperglycemia; I25.10 Atherosclerotic heart disease of native coronary artery without angina pectoris; M79.622 Pain in left upper arm; R11.0 Nausea; Z87.891 Personal history of nicotine dependence; I10 Essential (primary) hypertension; R74.8 Abnormal levels of other serum enzymes
CPT/HCPCS: 71045; 80048; 80076; 83690; 84484; 85025; 93005; 99285; A4216

== ENCOUNTER 2022-03-16 06:12 | Inpatient (IN) | payer MEDICARE, SELFPAY ==
[2022-03-16] VITALS (17 sets, daily range): BP systolic 110–140; BP diastolic 70–101; PULSE 72–78; RESP 16–24; TEMP 36.2–36.7; O2SAT 95–100; BMI 31.8; BMI 31.6
--- NOTE | 2022-03-16 06:23 | CT_ITS ---
We are attempting to reach an attending provider to discuss findings. An addendum with communication details will be sent when the communication is complete. STUDY: CT BRAIN WITHOUT CONTRAST REASON FOR EXAM: Male, 67 years old. Acute neuro deficit. Left greater than right leg weakness. TECHNIQUE: Transaxial CT imaging of the brain was performed without administration of intravenous contrast material. Individualized dose optimization techniques were used for this CT. COMPARISON: 08/17/2017 CT brain. FINDINGS: INTRACRANIAL: No evidence of intracranial hemorrhage, mass, acute infarct, or hydrocephalus. Chronic microangiopathic changes in the white matter. ASPECTS 03/25 VESSELS: Calcific atherosclerosis of the carotid siphons and intracranial vertebral arteries. BONES: No skull fracture or acute osseous abnormality. Status post interval left canal wall up mastoidectomy. The inferior aspect of the mastoid bowl is opacified. There is a partial opacification of right mastoid air cells. PARANASAL SINUSES: No air-fluid levels within the visualized portions of the paranasal sinuses. EXTRACRANIAL SOFT TISSUES: Visualized extracranial soft tissues with no acute findings. CT/STROKE Brain/Head without Cont IMPRESSION: No acute intracranial findings. Status post interval left canal wall up mastoidectomy. Electronically Signed: Tristian Claudio MD at 6:54 EDT Reading Location ID and State: [facility] / [place] Tel , Service support ,
--- NOTE | 2022-03-16 06:23 | CT_ITS ---
STUDY: CTA HEAD AND NECK WITH CONTRAST REASON FOR EXAM: Male, 67 years old. Left greater than right lower extremity weakness. Hypertension. RADIATION DOSAGE (If Supplied By Facility): CTDIvol = ( 22.39 ) mGy, DLP = ( 672.28 ) mGycm TECHNIQUE: CT angiography was performed with a multi-detector CT scanner. Data acquisition was obtained from the skull base through the vertex following intravenous administration of IV 100mL [id number]-[id number] with MIP and 3D reconstructed images. Individualized dose optimization techniques were used for this CT. COMPARISON: CT brain earlier same date. CT chest 03/29/2021. FINDINGS: Cervical ICA narrowing is measured per NASCET criteria (% ICA stenosis = (1 - [narrowest ICA diameter/diameter normal distal cervical ICA]) x 100. CTA NECK: Aortic arch: Left-sided 3 vessel aortic arch with calcific atherosclerosis but only mild narrowing of the great vessel origins and visualized subclavian arteries. Right carotids: Right CCA: No significant narrowing or dissection. Right ICA: No significant narrowing or dissection. Calcific plaque causes mild narrowing proximally. Right ECA: No significant narrowing or dissection. Left carotids Left CCA:No significant narrowing or dissection. Left ICA: No significant narrowing or dissection. Calcific plaque causes mild narrowing proximally. Left ECA: No significant narrowing or dissection. Vertebrals: Codominant vertebral arteries with no significant narrowing and no dissection. CTA HEAD: Intracranial carotids:Multifocal mild narrowing due to calcific plaque. MCAs: Left M2 branch in the sylvian fissure shows poor filling and luminal narrowing for a length of 8 mm (series 2 images 358-367) secondary to low density filling defect. Otherwise only mild atherosclerotic irregularity bilaterally. Anatomic variant early takeoff of an anterior left MCA branch arising from the anterior communicating artery. ACAs:No aneurysm or significant stenosis. Basilar:Normal caliber. No aneurysm. plate glass grinder:Multifocal mild atherosclerotic irregularity. No high-grade narrowing. Fed by dominant P1 segments bilaterally. Patent bilateral posterior and anterior inferior and superior cerebellar arteries are identified. No evidence of AVM or aneurysm. No intracranial DVT. Nonvascular structures: Left canal wall down mastoidectomy, partial opacification of the residual left and many of the right mastoid air cells and of the mastoidectomy operative bed again demonstrated. Degenerative changes cervical spine. No evidence of high-grade spinal canal narrowing. Moderate to severe bilateral foraminal narrowing at C3-4 and C4-5 secondary to osteophytes. Mild superior mediastinal lymphadenopathy partially visible similar to 03/29/2021 CT chest. Numerous missing teeth and dental caries. CT/STROKE CTA Head AND Neck W/Con IMPRESSION: Left MCA M2 branch focal narrowing for a length of 8 mm due to low-density plaque. This could represent nonocclusive acute embolus or chronic atherosclerosis. No other significant arterial narrowing in the head or neck. N.B. : The above Results were Read Back by Tristian Claudio MD to Alfredo Oglesby MD, and understanding confirmed on 03/16/2022 07:23:32 (ET). Electronically Signed: Tristian Claudio MD at 7:24 EDT Reading Location ID and State: [facility] / [place] Tel , Service support ,
--- NOTE | 2022-03-16 06:23 | EKG12_ITS ---
Test Reason : STROKE TEAM Blood Pressure : / mmHG Vent. Rate : 075 BPM Atrial Rate : 075 BPM P-R Int : 172 ms QRS Dur : 108 ms QT Int : 460 ms P-R-T Axes : 032 002 146 degrees QTc Int : 513 ms Normal sinus rhythm Inferior infarct , age undetermined ST & T wave abnormality, consider lateral ischemia Prolonged QT Abnormal ECG Confirmed by ASIYA FERREIRA, MINNIE ([id number]), clinical editor GENARO JIMENEZ ([id number]) on 03/19/2022 12:35:53 PM Referred By: Confirmed By:MINNIE BRADEN MD
[2022-03-16 06:51] LABS: Absolute Lymphocyte Count 1.77 X10^3/uL (0.83-4.51); Absolute Neutrophil Count 4.5 X10^3/uL (2.0-7.7); Basophil# 0.06 X10^3/uL; Basophil% 0.8 % (0-1); Eosinophil# 0.12 X10^3/uL; Eosinophils% 1.6 % (0-5); Hemoglobin 14.5 g/dL (13.0-16.5); Lymphocyte # 1.77 X10^3/ul (0.83-4.51); Lymphocyte % 24.1 % (19-41); Mean Corp Hgb Conc 34.5 g/dL (32-36); Mean Corpuscular Hgb 29.8 pg (27.0-32.0); Mean Corpuscular Volume 86.4 fL (80-94); Monocyte# 0.84 X10^3/uL; Monocyte% 11.4 % (0-10); NRBC Flagged by Analyzer 0 % (0-5); Neutrophil # 4.54 X10^3/uL (2.7-7.7); Neutrophil % 61.8 % (47-70); Platelet Count 214 K/mm3 (150-450); RBC Distribution Width CV 12.4 % (11.6-14.6); RBC Distribution Width SD 38.6 fl (35.1-43.9); Red Blood Count 4.86 M/mm3 (4.6-6.2); White Blood Count 7.4 K/mm3 (4.4-11.0)
--- NOTE | 2022-03-16 06:55 | NURSING ---
blue top too short
--- NOTE | 2022-03-16 07:03 | RAD_ITS ---
STUDY: X-RAY CHEST REASON FOR EXAM: Male, 67 years old. Stroke symptoms. TECHNIQUE: AP COMPARISON: 10/05/2021 CXR FINDINGS: LUNGS: No evidence of pneumonia, pulmonary edema, pneumothorax or pleural effusion. Low lung volumes with mild subsegmental bibasilar atelectasis, similar to prior. MEDIASTINUM, ALKA: Cardiac silhouette, hilar and mediastinal contours with no acute findings. Heart size normal. Atherosclerosis of the thoracic aorta. BONES: Degenerative osseous changes with no acute osseous abnormality. UPPER ABDOMEN: No apparent free intraperitoneal air. Surgical clips right upper quadrant. RAD/Chest 1 View IMPRESSION: No acute findings. Mild hypoventilatory changes. Electronically Signed: Tristian Claudio MD at 7:48 EDT Reading Location ID and State: [facility] / [place] Tel , Service support ,
--- NOTE | 2022-03-16 07:04 | EX.ED.DYSGE1 ---
HPI History of Present Illness Chief Complaint: Stroke Alert Narrative Narrative: Patient is a 67-year-old male with past medical history of type 2 diabetes and hypertension. He states that he went to bed normally as he would at around 11 PM last night. He states he woke this morning and went to get a bed and realized that he had a weakness in his legs and could not walk secondary to this. He reports he fell because of the leg weakness but denies striking his head or any loss of consciousness. He states he only takes a baby aspirin and when he does this on the days he remembers. Because of his leg weakness there was concern for stroke and EMS was called [facility] Medical History Anxiety Chest pain Chronic pain Coronary artery disease CPAP (continuous positive airway pressure) dependence Depression Diabetes Elevated lipase Former smoker GERD (gastroesophageal reflux disease) GI bleed Hearing loss, left Hearing loss, right History of COVID-19 Hypertension Hypothyroidism Migraines Myocardial infarct Osteoporosis Sleep apnea Vision loss of right eye Home Medications amlodipine 5 mg tablet 10 mg PO DAILY blood pressure 10/05/16 [History Last Taken 04/03/21 22:00] lisinopril 10 mg tablet (Prinivil) 20 mg PO DAILY blood pressure 10/05/16 [History Last Taken 04/03/21 08:00] metformin 1,000 mg tablet 1,000 mg PO DAILY blood sugar 10/05/16 [History Last Taken 04/03/21 08:00] metoprolol tartrate 100 mg tablet 150 mg PO BID blood pressure 10/05/16 [History Last Taken 04/03/21 08:00] nortriptyline 10 mg capsule 20 mg PO DAILY migraines 10/05/16 [History Last Taken 04/03/21 08:00] calcium carbonate 500 mg calcium (1,250 mg) tablet 500 mg PO BID supplement 08/17/17 [History Last Taken 04/03/21 08:00] cholecalciferol (vitamin D3) 25 mcg (1,000 unit) tablet (Vitamin D3) 1,000 unit PO DAILY vitamin 08/17/17 [History Last Taken 04/03/21 08:00] liraglutide 0.6 mg/0.1 mL (18 mg/3 mL) subcutaneous pen injector (Victoza 2-Adan) 1.8 mg SQ DAILY blood sugar 08/17/17 [History Last Taken 04/03/21 14:00] omega-3 fatty acids-fish oil 340 mg-1,000 mg capsule (Fish Oil) 1,000 mg PO BID supplement 08/17/17 [History Last Taken 04/03/21 08:00] pregabalin 25 mg capsule 100 mg PO BID pain 08/17/17 [History Last Taken 04/03/21 08:00] buspirone 10 mg tablet 10 mg PO QHS mood 06/17/19 [History Last Taken 04/03/21 22:00] modafinil 200 mg tablet 200 mg PO DAILY narcolepsy 06/17/19 [History Last Taken 04/03/21 08:00] sertraline 100 mg tablet 150 mg PO DAILY mood 06/17/19 [History Last Taken 04/03/21 08:00] aspirin 81 mg chewable tablet 81 mg PO DAILY@0800 heart health 08/17/19 [History Last Taken 04/03/21 08:00] atorvastatin 10 mg tablet 40 mg PO QHS cholesterol 08/17/19 [History Last Taken 04/03/21 22:00] tamsulosin 0.4 mg capsule 0.4 mg PO DAILY urine 03/30/21 [History Last Taken 04/03/21 08:00] clopidogrel 75 mg tablet 75 mg PO DAILY #30 tabs 03/31/21 [Rx Last Taken 04/03/21 08:00] apixaban 2.5 mg tablet (Eliquis) 2.5 mg PO BID #30 tabs 04/19/21 [Rx Last Taken Unknown] hydrocodone-acetaminophen 5-325mg 5mg-325mg 1 tab PO Q6H PRN pain 3 days #10 tabs 10/05/21 [Rx Last Taken Unknown] ondansetron 4 mg disintegrating tablet 4 mg PO Q8H PRN nausea and vomiting #10 tabs 10/05/21 [Rx Last Taken Unknown] Allergy/AdvReac Type Severity Reaction Status Date / Time No Known Allergies Allergy Verified 10/05/21 14:36 Family History (Updated 03/30/21 @ 02:54 by Valerie Corona) Mother Diabetes Father Heart disease CVA (cerebral vascular accident) Surgical History History of back surgery History of cholecystectomy Social History household members: spouse and children housing: apartment current occupational status: disabled Smoking Status: Former smoker Tobacco: How many years used: 30 diet: diabetic what type of physical activity do you participate in: walking ROS ROS ED Constitutional Constitutional ED: Denies chills or fever(s) Eyes Eyes: Denies change in vision ENT ENT ED: Denies sore throat Cardiovascular Cardiovascular: Denies chest pain or palpitations Respiratory/Chest Respiratory/Chest: Denies cough or dyspnea Gastrointestinal Gastrointestinal: Denies abdominal pain, diarrhea, nausea or vomiting Genitourinary Genitourinary ED: Denies dysuria Musculoskeletal Musculoskeletal: Denies back pain, myalgias or neck pain Integumentary Denies rash Neurologic Neurologic: Reports paresthesias and weakness; Denies headache(s) Hematologic/Lymphatic Hematologic/Lymphatic: Denies easy bleeding or easy bruising EXAM Physical Exam Const Vital Signs: 03/16/22 06:13 03/16/22 06:23 03/16/22 06:20 Temperature 97.9 F Temperature Source Temporal Pulse Rate 78 78 Respiratory Rate 16 16 Blood Pressure 131/101 H 131/101 H Blood Pressure Mean 111 111 Pulse Ox 98 95 98 Oxygen Delivery Method Room Air Room Air Room Air 03/16/22 06:46 03/16/22 07:06 03/16/22 07:46 Temperature Temperature Source Pulse Rate 74 74 75 Respiratory Rate 18 21 H 19 H Blood Pressure 140/87 H 139/81 H 128/79 H Blood Pressure Mean 104 100 95 Pulse Ox 98 98 99 Oxygen Delivery Method Room Air Room Air Room Air Positive well nourished and well developed General Appearance ED: well developed HEENT Reports moist mucous membranes Eyes PERRL and EOMs intact bilaterally Neck supple Neck Narrative: No bony deformity or step-off of the cervical spine no midline pain with palpation Chest Wall palpation of chest normal Resp normal respiratory effort and clear to auscultation bilaterally Cardio regular rate and regular rhythm Rate: other Other Details: Radial pulses are plus 2 out of 4 bilaterally are equal and symmetric Carotid pulses are equal as well GI normal to inspection, nondistended, normoactive bowel sounds, non-tender, non-distended and no masses GI Narrative: No voluntary guarding or rigidity no pulsatile mass Auscultation: normoactive bowel sounds Palpation: soft Extremity normal to inspection Extremity Narrative: Pelvis is stable there is no shortening or external rotation of either lower extremity Neuro oriented x3 Neuro Narrative: Patient is awake and alert to person place and time. However he has slurred speech he has altered sensation in the left leg. He has weakness of both legs but it is greatest on the left as this leg will hit the bed and then be elevated afterwards. He also has dysmetria in the left arm and leg and these findings provide him with NIH stroke scale score of 7. Sensorium / Orientation: alert Psych mental status grossly normal Skin no rashes or lesions noted Skin Narrative: No abrasions or ecchymosis noted MDM MDM MDM Narrative Medical decision making narrative: Patient presented to the ER awake and alert with no signs of trauma from the fall. However he was slurring his speech and had weakness in his legs and altered sensation consistent with stroke. Secondary to this a stroke alert was activated. The noncontrast CT revealed no acute bleed but as the patient awoke with symptoms he is outside the window and we cannot provide tPA. The CTA showed a MCA M2 lesion which could be acute embolus versus atherosclerosis. Secondary to this I contacted [facility] stroke center once again. They feel that based on this reading his symptoms that patient was still being managed medically and that this is most likely atherosclerosis and not a large vessel occlusion. Therefore patient was medicated with aspirin and Plavix and he will be admitted to the hospital for further stroke care Lab Data Attestation: I reviewed the patient's lab results. Labs: Laboratory Results - last 24 hr 03/16/22 03/16/22 03/16/22 06:43 06:43 06:43 WBC 7.4 RBC 4.86 Hgb 14.5 Hct 42.0 MCV 86.4 MCH 29.8 MCHC 34.5 RDW Std Deviation 38.6 RDW Coeff of Eben 12.4 Plt Count 214 MPV 11.0 Immature Gran % (Auto) 0.300 Neut % (Auto) 61.8 Lymph % (Auto) 24.1 Guadalupe % (Auto) 11.4 H Eos % (Auto) 1.6 Baso % (Auto) 0.8 Absolute Neuts (auto) 4.5 Absolute Lymphs (auto) 1.77 Nucleated RBC % 0 PT Cancelled INR Cancelled APTT Cancelled Sodium 139 Potassium 3.6 Chloride 104 Carbon Dioxide 29.0 Anion Gap 6 BUN 21 H Creatinine 1.28 Estim Creat Clear Calc 71.94 Est GFR (MDRD) Af Amer 72 Est GFR (MDRD) Non-Af 60 BUN/Creatinine Ratio 16.4 Glucose 131 H Calcium 8.9 Troponin I High Sens 112 H 03/16/22 07:00 WBC RBC Hgb Hct MCV MCH MCHC RDW Std Deviation RDW Coeff of Eben Plt Count MPV Immature Gran % (Auto) Neut % (Auto) Lymph % (Auto) Guadalupe % (Auto) Eos % (Auto) Baso % (Auto) Absolute Neuts (auto) Absolute Lymphs (auto) Nucleated RBC % PT 12.9 INR 1.0 APTT 23.1 L Sodium Potassium Chloride Carbon Dioxide Anion Gap BUN Creatinine Estim Creat Clear Calc Est GFR (MDRD) Af Amer Est GFR (MDRD) Non-Af BUN/Creatinine Ratio Glucose Calcium Troponin I High Sens Radiography Diagnostic Testing: Clinical Impression(s) from Imaging Studies Brain CT 03/16/22 06:23 IMPRESSION: No acute intracranial findings. Status post interval left canal wall up mastoidectomy. Electronically Signed: Tristian Claudio MD at 6:54 EDT Reading Location ID and State: [address] [place] [address] Tel , Service support , ADDENDUM: 03/16/22 0702 IMPRESSION: No acute intracranial findings. Status post interval left canal wall up mastoidectomy. N.B. : The above Results were Read Back by Tristian Claudio MD to Alfredo Oglesby MD, and understanding confirmed on 03/16/2022 06:55:20 (ET). Electronically Signed: Tristian Claudio MD at 6:54 EDT Reading Location ID and State: [address] [place] [address] Tel , Service support , Head/Neck CTA 03/16/22 06:23 IMPRESSION: Left MCA M2 branch focal narrowing for a length of 8 mm due to low-density plaque. This could represent nonocclusive acute embolus or chronic atherosclerosis. No other significant arterial narrowing in the head or neck. N.B. : The above Results were Read Back by Tristian Claudio MD to Alfredo Oglesby MD, and understanding confirmed on 03/16/2022 07:23:32 (ET). Electronically Signed: Tristian Claudio MD at 7:24 EDT Reading Location ID and State: [address] [place] [address] Tel , Service support , ADDENDUM: 03/16/22 0731 IMPRESSION: Left MCA M2 branch focal narrowing for a length of 8 mm due to low-density plaque. This could represent nonocclusive acute embolus or chronic atherosclerosis. No other significant arterial narrowing in the head or neck. N.B. : The above Results were Read Back by Tristian Claudio MD to Alfredo Oglesby MD, and understanding confirmed on 03/16/2022 07:23:32 (ET). Electronically Signed: Tristian Claudio MD at 7:24 EDT Reading Location ID and State: [address] [place] [address] Tel , Service support , Chest X-Ray 03/16/22 07:03 IMPRESSION: No acute findings. Mild hypoventilatory changes. Electronically Signed: Tristian Claudio MD at 7:48 EDT Reading Location ID and State: [address] [place] [address] Tel , Service support , 1 view chest x-ray as interpreted by the emergency medicine physician reveals poor inspiration without infiltrate pneumothorax or pleural effusion Critical Care Time Critical Care Time: Yes Critical care time (excluding procedures): - (Please note critical care time of 33 minutes) Discharge Plan Dx/Rx/DC Orders Clinical Impression: Acute CVA (cerebrovascular accident), Elevated troponin, Essential (primary) hypertension, DM2 (diabetes mellitus, type 2) Disposition Disposition: Acute Care [facility]
[2022-03-16 07:15] LABS: Anion Gap 6 (5-15); BUN 21 mg/dL (7-18); BUN/Creat Ratio 16.4 RATIO (10-20); Calcium,Total 8.9 mg/dL (8.5-10.1); Chloride 104 mmol/L (98-107); Creatinine, Serum 1.28 mg/dL (0.70-1.30); EST Glomerular Filtration Rate 60 mL/min (>60); Est Glom Filt Rate - Afr Amer 72 mL/min (>60); Estimated Creatinine Clearance 71.94 ml/min; Glucose 131 mg/dL (74-106); Potassium 3.6 mmol/L (3.5-5.1); Sodium Level 139 mmol/L (136-145); Troponin-I HS 112 pg/mL (3.0-78.0)
[2022-03-16] MEDS: Aspirin 325 MG Tablet PO (07:20)
[2022-03-16 07:24] LABS: Prothrombin Time (Protime)PT. 12.9 SECONDS (11.7-14.9)
[2022-03-16 07:25] LABS: Partial Thromboplast Time 23.1 Seconds (24.1-36.2)
[2022-03-16] MEDS: Clopidogrel Bisulfate 300 MG Tablet PO (07:44)
--- NOTE | 2022-03-16 07:48 | NURSING ---
DR SRIVASTAVA FOR DR ROBLERO
--- NOTE | 2022-03-16 08:01 | NURSING ---
122 ATIF CVA OBS
--- NOTE | 2022-03-16 08:05 | NURSING ---
CALLED [facility]. TALKED TO KAITLIN IN TRANSFER. GAVE HIM ALL THE INFO
--- NOTE | 2022-03-16 08:44 | MRI_ITS ---
We are attempting to reach an attending provider to discuss findings. An addendum with communication details will be sent when the communication is complete. STUDY: MRI BRAIN WITHOUT CONTRAST REASON FOR EXAM: Male, 67 years old. leg weakness, dysarthria woke up this AM with L leg weakness and slurred speech TECHNIQUE: Standardized multiplanar fat and water weighted pulse sequences were obtained. COMPARISON: Head CT dated March 16, 2022 FINDINGS: Small acute infarct is present on the right side of the pina. No additional infarcts are seen in the bilateral cerebral hemispheres or in the posterior fossa. There is mild cerebral atrophy with widening of the extra-axial spaces and ventricular dilatation. There are a limited number of small white matter hyperintensities, distributed throughout the deep white matter tracts of the cerebral hemispheres, consistent with mild chronic white matter ischemic changes. Normal T2* images of the brain without demonstrated susceptibility artifact. There is no demonstrated hemosiderin stain. Normal bilateral basal ganglia. Normal thalami. There is no extra-axial fluid accumulation. Normal flow voids within the major intracranial circulation suggesting patency by spin echo criteria. Normal sella turcica, pituitary gland, infundibular stalk, optic chiasm and hypothalamus. Normal tectal plate and pineal gland. Normal midbrain and medulla. Normal cerebellum. Normal basal cisterns. Normal bilateral temporal bones. Normal bilateral internal auditory canals. No demonstrated orbital abnormality, within the constraints of a routine brain study. Normal visualized paranasal sinuses. Normal calvarium and skull base. Normal visualized soft tissue structures. Normal visualized upper cervical spine. Severe right mastoiditis/opacification of the air cells. Chronic postsurgical signal and defect from left mastoidectomy. MRI/Brain without Contrast IMPRESSION: Acute small right pontine infarct 1. Small acute infarct is present on the right side of the pina. No additional infarcts are seen in the bilateral cerebral hemispheres or in the posterior fossa. Electronically Signed: Joe Johnson MD at 11:45 EDT ,
--- NOTE | 2022-03-16 10:54 | CPS ---
continuous pulse ox placed at bedside.
--- NOTE | 2022-03-16 12:42 | NURSING ---
Blood glucose 89
[2022-03-16 13:06] LABS: Bedside Glucose 92 mg/dL (74-106)
[2022-03-16] MEDS: Tamsulosin HCl 0.4 MG Capsule PO (13:39)
[2022-03-16] MEDS: Metoprolol Tartrate 100 MG Tablet 150 MG PO ×2 (13:39→21:48)
[2022-03-16] MEDS: APIXABAN 2.5 MG TABLET PO ×2 (13:39→21:50)
[2022-03-16] MEDS: amLODIPine 10 MG Tablet PO (13:41)
[2022-03-16] MEDS: Pregabalin 50 MG Capsule 100 MG PO ×2 (13:41→21:49)
[2022-03-16] MEDS: Clopidogrel Bisulfate 75 MG Tablet PO (13:42)
[2022-03-16] MEDS: Lisinopril 20 MG Tablet PO (13:42)
[2022-03-16] MEDS: Nortriptyline 10 MG Capsule 20 MG PO (13:42)
[2022-03-16] MEDS: Sertraline 100 MG Tablet 150 MG PO (13:43)
--- NOTE | 2022-03-16 14:11 | CM.ED ---
Addendum entered by Sonal Tobar 03/16/22 14:26: DONNA provided patient with counseling list. Patient has a psychologist that he sees every 3 months. No current medications for psych. Sonal BRISENO Original Note: SW met with patient and his in patient's room. Patient gave this handbook writer verbal consent to speak to him in the presence of his . Patient voiced that he is retired. Patient reports he has been on psych med before but is currently not on psych medications. Patient reports he was on buspar and zoloft in the past. Patient not currently on medications. He felt that medication was helpful. SW discussed with patient that if he has any symptoms of depression to contact his PCP and then patient voiced that he a psychologist. Patient sees his psychologist every 3 months. Patient is bright and reactive. Good eye contact. Engaging in conversation easily. PHQ 9 completed with score of 5 Sonal NIEVES
--- NOTE | 2022-03-16 14:39 | CASEMGMT ---
RN CM in to pt room as therapy is recommending additional therapy. Pt is agreeable to outpt therapy. He states he has trouble with transportation as he does not drive. Discussed [facility] transportation should he chose to have his therapy at [facility]. He is aware they can coordinate his appts with the van. Script on chart for PT/OT and ST to be given to pt upon dc as well as van information. Pt states that he has to leave his home within 30 days per landlord. He states he is not sure what they will do for housing due to credit. Updated SW as pt was interested in any housing info. Pt has a FWW at home. Pt denies further homegoing needs.
--- NOTE | 2022-03-16 14:55 | CM.ED ---
SW went to patient's room as per CM patient has poor credit and difficulty securing housing and has to be out at the end of the month. SW spoke to patient and [facility] Patient said that he could pay 1200 -1300 month but the houses are small. Patient voiced frustration with his low credit score but is aware of agencies that state they will assist in increasing the credit score. SW also advised to call [facility]. SW also clarified and patient sees a psychologist at [facility] in [place] but was unable to recall the name of the provider. Sonal NIEVES
--- NOTE | 2022-03-16 15:58 | PCM.HP.STD ---
HPI - General General Date of Admission: 03/16/22 Date of Service: 03/16/22 Chief Complaint: Lower extremity weakness, slurred speech HPI Narrative OPAL CRUZ, is a 67 M who presents to the emergency room for evaluation of lower extremity weakness and slurred speech which he noticed this morning when he woke up from sleep. Patient went to bed at 11:00 last night and had the symptoms when he woke up. A stroke team was not called, patient underwent a CTA of the head and neck, there is no evidence of occlusive vascular disease and no evidence of an acute stroke on the CAT scan. Patient's NIH score was 7. Labs were remarkable for BUN of 21, patient's troponin was 112. Patient had no complaints of any chest discomfort or shortness of breath. Teleneurology was contacted by the emergency room physician, they recommended 300 mg of Plavix, patient was taking aspirin at home but only on an intermittent basis. Patient will be placed in observation status for lower extremity weakness and slurred speech, an MRI of the brain will be obtained today, patient will be maintained on Plavix and aspirin. Patient is already on a statin as an outpatient. [facility] Medical History (Updated 03/16/22 @ 10:49 by Lida Jennings) Anxiety Chest pain Chronic pain Coronary artery disease CPAP (continuous positive airway pressure) dependence Depression Diabetes Elevated lipase Former smoker GERD (gastroesophageal reflux disease) GI bleed Hearing loss, left Hearing loss, right Hernia History of COVID-19 Hypertension Hypothyroidism Migraines Myocardial infarct Osteoporosis Sleep apnea Vision loss of right eye Home Medications amlodipine 5 mg tablet 10 mg PO DAILY blood pressure 10/05/16 [History Last Taken 04/03/21 22:00] lisinopril 10 mg tablet (Prinivil) 20 mg PO DAILY blood pressure 10/05/16 [History Last Taken 04/03/21 08:00] metformin 1,000 mg tablet 1,000 mg PO DAILY blood sugar 10/05/16 [History Last Taken 04/03/21 08:00] metoprolol tartrate 100 mg tablet 150 mg PO BID blood pressure 10/05/16 [History Last Taken 04/03/21 08:00] nortriptyline 10 mg capsule 20 mg PO DAILY migraines 10/05/16 [History Last Taken 04/03/21 08:00] calcium carbonate 500 mg calcium (1,250 mg) tablet 500 mg PO BID supplement 08/17/17 [History Last Taken 04/03/21 08:00] cholecalciferol (vitamin D3) 25 mcg (1,000 unit) tablet (Vitamin D3) 1,000 unit PO DAILY vitamin 08/17/17 [History Last Taken 04/03/21 08:00] liraglutide 0.6 mg/0.1 mL (18 mg/3 mL) subcutaneous pen injector (Victoza 2-Adan) 1.8 mg SQ DAILY blood sugar 08/17/17 [History Last Taken 04/03/21 14:00] omega-3 fatty acids-fish oil 340 mg-1,000 mg capsule (Fish Oil) 1,000 mg PO BID supplement 08/17/17 [History Last Taken 04/03/21 08:00] pregabalin 25 mg capsule 100 mg PO BID pain 08/17/17 [History Last Taken 04/03/21 08:00] buspirone 10 mg tablet 10 mg PO QHS mood 06/17/19 [History Last Taken 04/03/21 22:00] modafinil 200 mg tablet 200 mg PO DAILY narcolepsy 06/17/19 [History Last Taken 04/03/21 08:00] sertraline 100 mg tablet 150 mg PO DAILY mood 06/17/19 [History Last Taken 04/03/21 08:00] aspirin 81 mg chewable tablet 81 mg PO DAILY@0800 heart health 08/17/19 [History Last Taken 04/03/21 08:00] atorvastatin 10 mg tablet 40 mg PO QHS cholesterol 08/17/19 [History Last Taken 04/03/21 22:00] tamsulosin 0.4 mg capsule 0.4 mg PO DAILY urine 03/30/21 [History Last Taken 04/03/21 08:00] clopidogrel 75 mg tablet 75 mg PO DAILY #30 tabs 03/31/21 [Rx Last Taken 04/03/21 08:00] apixaban 2.5 mg tablet (Eliquis) 2.5 mg PO BID #30 tabs 04/19/21 [Rx Last Taken Unknown] hydrocodone-acetaminophen 5-325mg 5mg-325mg 1 tab PO Q6H PRN pain 3 days #10 tabs 10/05/21 [Rx Last Taken Unknown] ondansetron 4 mg disintegrating tablet 4 mg PO Q8H PRN nausea and vomiting #10 tabs 10/05/21 [Rx Last Taken Unknown] Allergy/AdvReac Type Severity Reaction Status Date / Time No Known Allergies Allergy Verified 10/05/21 14:36 Family History (Updated 03/30/21 @ 02:54 by Valerie Corona) Mother Diabetes Father Heart disease CVA (cerebral vascular accident) Surgical History History of back surgery History of cholecystectomy Social History household members: spouse and children housing: apartment current occupational status: disabled Smoking Status: Former smoker Tobacco: How many years used: 30 diet: diabetic what type of physical activity do you participate in: walking ROS Constitutional Constitutional: Denies anorexia, change in weight, fever(s), night sweats or weakness Eyes Eyes: Denies blurry vision, change in vision, discharge from eye(s) or eye pain ENT HEENT: Denies dysphagia, ear pain or headache(s) Cardiovascular Cardiovascular: Denies chest pain, claudication, dyspnea on exertion, edema, lightheadedness, orthopnea or palpitations Respiratory/Chest Respiratory/Chest: Denies cough, dyspnea, excessive phlegm production, hemoptysis, shortness of breath at rest or shortness of breath with exertion Gastrointestinal Gastrointestinal: Denies abdominal pain, coffee ground emesis, constipation, diarrhea, hematemesis, hematochezia, melena, nausea or vomiting Genitourinary Genitourinary: Denies dysuria, hematuria, urinary frequency, urinary hesitancy, urinary incontinence or urinary urgency Musculoskeletal Musculoskeletal: Denies back pain, joint pain, joint stiffness, joint swelling, myalgias or neck pain Neurologic Neurologic: Reports abnormal speech and focal weakness; Denies abnormal gait, dizziness, headache(s), loss of vision, numbness, other visual disturbances, paresthesias, syncope or tingling Psychiatric Psychiatric: Denies anxiety, cognitive impairment, depression, irritability, mood swings or suicidal ideation Endocrine Endocrinology: Denies change in body appearance, cold intolerance, excessive sweating, heat intolerance, polydipsia or polyuria Hematologic/Lymphatic Hematologic/Lymphatic: Denies none, anemia, easy bleeding, easy bruising or lymphadenopathy Allergic/Immunologic Allergic/Immunologic: Denies rhinitis, urticaria, eczemia or asthma Vital Signs Vital Signs Vital Signs: 03/16/22 06:13 03/16/22 06:23 03/16/22 06:20 Temperature 97.9 F Temperature Source Temporal Pulse Rate 78 78 Respiratory Rate 16 16 Respiratory Effort Respiratory Depth Respiratory Pattern Blood Pressure 131/101 H 131/101 H Blood Pressure Mean 111 111 Blood Pressure Source Blood Pressure Position Blood Pressure Location Pulse Ox 98 95 98 Oxygen Delivery Method Room Air Room Air Room Air 03/16/22 06:46 03/16/22 07:06 03/16/22 07:46 Temperature Temperature Source Pulse Rate 74 74 75 Respiratory Rate 18 21 H 19 H Respiratory Effort Respiratory Depth Respiratory Pattern Blood Pressure 140/87 H 139/81 H 128/79 H Blood Pressure Mean 104 100 95 Blood Pressure Source Blood Pressure Position Blood Pressure Location Pulse Ox 98 98 99 Oxygen Delivery Method Room Air Room Air Room Air 03/16/22 08:01 03/16/22 08:01 03/16/22 08:30 Temperature 97.5 F L 97.9 F Temperature Source Oral Oral Pulse Rate 76 74 76 Respiratory Rate 24 H 19 H 16 Respiratory Effort Respiratory Depth Respiratory Pattern Blood Pressure 132/88 H 132/88 H 132/70 H Blood Pressure Mean 102 102 90 Blood Pressure Source Monitor Blood Pressure Position Semi-Fowlers Blood Pressure Location Right Arm Pulse Ox 97 97 97 Oxygen Delivery Method Room Air Room Air Room Air 03/16/22 08:30 03/16/22 08:59 03/16/22 13:10 Temperature 97.5 F L Temperature Source Oral Pulse Rate 73 74 Respiratory Rate 16 Respiratory Effort Normal Non-Labored Respiratory Depth Normal Respiratory Pattern Normal Blood Pressure 122/80 H Blood Pressure Mean 94 Blood Pressure Source Monitor Blood Pressure Position Sitting Blood Pressure Location Left Arm Pulse Ox 100 Oxygen Delivery Method Room Air Room Air 03/16/22 13:39 03/16/22 15:41 03/16/22 15:30 Temperature Temperature Source Pulse Rate 74 Respiratory Rate Respiratory Effort Normal Non-Labored Respiratory Depth Normal Respiratory Pattern Normal Blood Pressure 122/80 H Blood Pressure Mean Blood Pressure Source Blood Pressure Position Blood Pressure Location Pulse Ox 95 Oxygen Delivery Method Room Air Room Air Weight Weight: 88.8 kg Body Mass Index (BMI) 31.6 Physical Exam Const alert, oriented x3, no apparent distress, average body habitus and healthy appearing General Appearance: cooperative, well kempt and well developed Orientation / Consciousness: awake, oriented to person, oriented to place and oriented to time HEENT normocephalic, head/scalp atraumatic, hearing grossly normal bilaterally and moist oral mucous membranes Eyes PERRL, EOMs intact bilaterally and conjunctivae normal Neck supple, no JVD, thyroid normal and no carotid bruits General: trachea midline Resp normal respiratory effort, no retractions, no use of accessory muscles and clear to auscultation bilaterally Auscultation: Negative for rales, rhonchi or wheezes Cardio regular rate, regular rhythm, S1 normal heart sound, S2 normal heart sound, no murmurs, no rub and no gallops GI normal to inspection, nondistended, normoactive bowel sounds, soft to palpation, non-tender and non-distended Extremity no clubbing, cyanosis or edema Skin no rashes or lesions noted General Skin Exam: no breakdown Neuro oriented x3, CN's II-XII intact bilaterally and no sensory deficits noted Neuro Narrative: Patient has generalized left and right leg weakness, he does exhibit some slurred speech-patient is edentulous however Sensorium / Orientation: awake, alert, oriented to person, oriented to place and oriented to time Psych affect normal Results Lab / Micro Data Result Diagrams: 03/16/22 06:43 03/16/22 06:43 Labs: Laboratory Results - last 24 hr 03/16/22 06:43: WBC 7.4, RBC 4.86, Hgb 14.5, Hct 42.0, MCV 86.4, MCH 29.8, MCHC 34.5, RDW Std Deviation 38.6, RDW Coeff of Eben 12.4, Plt Count 214, MPV 11.0, Immature Gran % (Auto) 0.300, Neut % (Auto) 61.8, Lymph % (Auto) 24.1, [place] % (Auto) 11.4 H, Eos % (Auto) 1.6, Baso % (Auto) 0.8, Absolute Neuts (auto) 4.5, Absolute Lymphs (auto) 1.77, Nucleated RBC % 0 03/16/22 06:43: PT Cancelled, INR Cancelled, APTT Cancelled 03/16/22 06:43: Sodium 139, Potassium 3.6, Chloride 104, Carbon Dioxide 29.0, Anion Gap 6, BUN 21 H, Creatinine 1.28, Estim Creat Clear Calc 71.94, Est GFR (MDRD) Af Amer 72, Est GFR (MDRD) Non-Af 60, BUN/Creatinine Ratio 16.4, Glucose 131 H, Calcium 8.9, Troponin I High Sens 112 H 03/16/22 07:00: PT 12.9, INR 1.0, APTT 23.1 L 03/16/22 12:39: POC Glucose [address] 03/16/22 06:23 IMPRESSION: No acute intracranial findings. Status post interval left canal wall up mastoidectomy. Electronically Signed: Tristian Claudio MD at 6:54 EDT Reading Location ID and State: [address] [place] [address] Tel , Service support , ADDENDUM: 03/16/2202 IMPRESSION: No acute intracranial findings. Status post interval left canal wall up mastoidectomy. N.B. : The above Results were Read Back by Tristian Claudio MD to Alfredo Oglesby MD, and understanding confirmed on 03/16/2022 06:55:20 (ET). Electronically Signed: Tristian Claudio MD at 6:54 EDT Reading Location ID and State: [address] [place] [address] Tel , Service support , Head/Neck CTA 03/16/22 06:23 IMPRESSION: Left MCA M2 branch focal narrowing for a length of 8 mm due to low-density plaque. This could represent nonocclusive acute embolus or chronic atherosclerosis. No other significant arterial narrowing in the head or neck. N.B. : The above Results were Read Back by Tristian Claudio MD to Alfredo Oglesby MD, and understanding confirmed on 03/16/2022 07:23:32 (ET). Electronically Signed: Tristian Claudio MD at 7:24 EDT Reading Location ID and State: [address] [place] [address] Tel , Service support , ADDENDUM: 03/16/22 0731 IMPRESSION: Left MCA M2 branch focal narrowing for a length of 8 mm due to low-density plaque. This could represent nonocclusive acute embolus or chronic atherosclerosis. No other significant arterial narrowing in the head or neck. N.B. : The above Results were Read Back by Tristian Claudio MD to Alfredo Oglesby MD, and understanding confirmed on 03/16/2022 07:23:32 (ET). Electronically Signed: Tristian Claudio MD at 7:24 EDT Reading Location ID and State: [address] [place] [address] Tel , Service support , Chest X-Ray 03/16/22 07:03 IMPRESSION: No acute findings. Mild hypoventilatory changes. Electronically Signed: Tristian Claudio MD at 7:48 EDT Reading Location ID and State: [address] [place] [address] Tel , Service support , Brain MRI 03/16/22 08:44 IMPRESSION: Acute small right pontine infarct 1. Small acute infarct is present on the right side of the pina. No additional infarcts are seen in the bilateral cerebral hemispheres or in the posterior fossa. Electronically Signed: Joe Johnson MD at 11:45 EDT Reading Location ID and State: [id number] [employer] , Service support , ADDENDUM: 03/16/22 1158 IMPRESSION: Acute small right pontine infarct 1. Small acute infarct is present on the right side of the pina. No additional infarcts are seen in the bilateral cerebral hemispheres or in the posterior fossa. N.B. : The above Results were Read Back by Joe Johnson MD to Lida [id number], and understanding confirmed on 03/16/2022 11:51:41 (ET). Electronically Signed: Joe Johnson MD at 11:45 EDT , Assessment & Plan Assessment/Plan (1) Essential (primary) hypertension: PLAN: Plan 1. Bilateral leg weakness-etiology unclear, patient will be placed in observation status on PCU, NIH scores will be monitored, patient will undergo an MRI of the brain, patient will be maintained on a statin, aspirin 81 mg, and Plavix 75 mg. #2 type 2 diabetes-blood sugars will be monitored, sliding scale insulin will be given as needed #3 essential hypertension-patient will remain on his home medications #4 history of coronary artery disease-patient is currently on a beta-jay and a statin, again patient states that he does not take 81 mg aspirin daily-he is intermittent with the use of this aspirin Charges/Coding Visit Charges OBSV E&M: 52605 Initial observation care L3
[2022-03-16] MEDS: Insulin Lispro 100 UNIT/ML INSULN.PEN SC ×2 (17:18→21:50)
[2022-03-16 17:30] LABS: Bedside Glucose 169 mg/dL (74-106)
[2022-03-16] MEDS: Atorvastatin Calcium 40 MG Tablet PO (21:48)
[2022-03-16] MEDS: busPIRone 5 MG Tablet 10 MG PO (21:48)
[2022-03-16 22:15] LABS: Bedside Glucose 272 mg/dL (74-106)
[2022-03-17] VITALS (14 sets, daily range): BP systolic 101–123; BP diastolic 68–75; PULSE 65–74; RESP 16–20; TEMP 35.7–36.8; O2SAT 94–98; BMI 31.6
[2022-03-17 06:09] LABS: Cholesterol 137 mg/dL (200); High Density Lipoprotein 36 mg/dL; Triglycerides 215 mg/dL; Very Low Density Lipoprotein 43 mg/dL (5-40)
[2022-03-17] MEDS: Insulin Lispro 100 UNIT/ML INSULN.PEN SC ×4 (06:30→21:45)
[2022-03-17 06:51] LABS: Bedside Glucose 298 mg/dL (74-106)
[2022-03-17] MEDS: Aspirin 81 MG TAB.CHEW PO (10:09)
[2022-03-17] MEDS: Metoprolol Tartrate 100 MG Tablet 150 MG PO ×2 (10:09→21:38)
[2022-03-17] MEDS: APIXABAN 2.5 MG TABLET PO ×2 (10:09→21:38)
[2022-03-17] MEDS: Tamsulosin HCl 0.4 MG Capsule PO (10:09)
[2022-03-17] MEDS: amLODIPine 10 MG Tablet PO (10:11)
[2022-03-17] MEDS: Sertraline 100 MG Tablet 150 MG PO (10:13)
[2022-03-17] MEDS: Clopidogrel Bisulfate 75 MG Tablet PO (10:13)
[2022-03-17] MEDS: Lisinopril 20 MG Tablet PO (10:13)
[2022-03-17] MEDS: Pregabalin 50 MG Capsule 100 MG PO ×2 (11:59→21:46)
[2022-03-17 12:30] LABS: Bedside Glucose 397 mg/dL (74-106)
--- NOTE | 2022-03-17 15:32 | ECHOD_ITS ---
Version 2 Reason For Study: TIA/CVA Procedure This was a 2D Doppler, Color Flow transthoracic echocardiogram. Exam performed portable in patient room. Left Ventricle Normal LV size. The estimated ejection fraction is 45 %. There is mild global hypokinesis of the left ventricle. Right Ventricle Normal RV size. Normal systolic function. Atria Normal left atrium. Normal right atrium. Bubble contrast study negative for right to left interatrial shunt. Mitral Valve Normal mitral valve. Tricuspid Valve Normal tricuspid valve. Aortic Valve Normal aortic valve. Trisinus/trileaflet aortic valve. Pulmonic Valve Normal pulmonic valve. Great Vessels Normal aortic root. The pulmonary artery is normal size. Normal inferior vena cava. Pericardium/Pleural No pericardial effusion. Medication Performed a rapid injection of agitated mix of 9 cc saline and 1cc air to assess for atrial septal defect. MMode/2D Measurements & Calculations LVIDd: 4.8 cm IVSd: 1.1 cm Ao root diam: 2.9 cm LVIDs: 3.5 cm LVPWd: 1.3 cm RVDd: 2.9 cm FS: 27.9 % LAV(MOD-bp): 67.3 ml LVAd ap4: 29.5 cm2 SV(MOD-sp4): 45.7 ml LAV(MOD-bp) Indexed: 34.0 ml/m2 LVLd ap4: 7.8 cm LAV(MOD-sp2): 60.9 ml EDV(MOD-sp4): 89.2 ml LAV(MOD-sp4): 68.7 ml EDV(sp4-el): 94.8 ml LVAs ap4: 18.5 cm2 LVLs ap4: 6.7 cm ESV(MOD-sp4): 43.5 ml ESV(sp4-el): 43.2 ml EF(MOD-sp4): 51.2 % EF(sp4-el): 54.4 % SV(sp4-el): 51.6 ml LA A4 area: 21.9 cm2 LA dimension(2D): 3.8 cm RA A4 area: 11.9 cm2 Time Measurements MV dec time: 0.13 sec Doppler Measurements & Calculations MV E max eric: 74.2 cm/sec Lat Peak E' Eric: 6.2 cm/sec Med Peak E' Eric: 5.3 cm/sec MV A max eric: 41.7 cm/sec E/E' lat: 12.0 E/E' med: 14.1 MV E/A: 1.8 MV V2 max: 79.5 cm/sec MV dec slope: 586.6 cm/sec2 Ao V2 max: 81.4 cm/sec MV max P.5 mmHg Ao max P.7 mmHg MV V2 mean: 44.4 cm/sec Ao V2 mean: 53.9 cm/sec MV mean P.92 mmHg Ao mean P.3 mmHg MV V2 VTI: 22.5 cm Ao V2 VTI: 18.1 cm LV V1 max: 59.1 cm/sec PA V2 max: 66.9 cm/sec LV V1 max P.4 mmHg PA V2 mean: 51.7 cm/sec LV V1 mean P.87 mmHg LV V1 mean: 44.0 cm/sec LV V1 VTI: 13.8 cm ECHO/Echo Complete Interpretation Summary Normal LV size. The estimated ejection fraction is 45 %. There is mild global hypokinesis of the left ventricle. Bubble contrast study negative for right to left interatrial shunt. Structurally normal valves. Ordering Physician: Stevenson Rodriguez Referring Physician: [facility] Performed By: Preethi Krause RCS
--- NOTE | 2022-03-17 16:21 | PCM.PN.HOSP ---
Subjective Subjective Patient was seen and examined today, physical therapy has recommended that the patient have inpatient rehab services, I talked to the patient briefly about this, there is some confusion on the patient's part of what insurance he has-it appears that he has Medicare and B card but he also appears to have a Medicare see card. Patient is unable to ambulate without maximal assistance at this time, I feel he would be better served to go to an extended care facility for short-term rehab services or to a rehab department such as [facility] at [facility]. I asked the patient to talk with rn social work tomorrow concerning possible short-term placement. Objective Data Objective Data Vital Signs: Vital Signs Temp Pulse Resp BP Pulse Ox O2 Del Method 98.2 F 68 16 101/71 95 Room Air 03/17/22 13:30 03/17/22 15:00 03/17/22 13:30 03/17/22 13:30 03/17/22 13:30 03/17/22 13:30 Oxygen Delivery Method Room Air Weight: 88.8 kg Body Mass Index (BMI) 31.6 Intake & Output: Intake and Output for Last 24 Hours 03/15/22 03/16/22 03/17/22 23:59 23:59 23:59 Intake Total 1030 / 1030 60 / 60 Output Total 0 / 0 200 / 200 Balance 1030 / 1030 -140 / -140 Lab / Micro Data Result Diagrams: 03/16/22 06:43 03/16/22 06:43 Labs: Laboratory Results - last 24 hr 03/16/22 17:12: POC Glucose 169 H 03/16/22 21:47: POC Glucose 272 H 03/17/22 05:35: Triglycerides 215 H, Cholesterol 137, LDL Cholesterol 58, VLDL Cholesterol 43 H, HDL Cholesterol 36 L 03/17/22 06:29: POC Glucose 298 H 03/17/22 11:58: POC Glucose 397 H Physical Exam Const alert, oriented x3 and no apparent distress General Appearance: cooperative, well kempt and well developed Orientation / Consciousness: awake, oriented to person, oriented to place and oriented to time HEENT normocephalic and moist oral mucous membranes Eyes PERRL, EOMs intact bilaterally and conjunctivae normal Neck supple, no JVD, thyroid normal and no carotid bruits General: trachea midline Resp normal respiratory effort and clear to auscultation bilaterally Auscultation: Negative for rales, rhonchi or wheezes Cardio regular rate, regular rhythm, S1 normal heart sound, S2 normal heart sound, no murmurs, no rub and no gallops GI normal to inspection, nondistended, normoactive bowel sounds, soft to palpation, non-tender and non-distended Extremity no clubbing, cyanosis or edema Skin no rashes or lesions noted General Skin Exam: no breakdown Neuro oriented x3, CN's II-XII intact bilaterally, moves all extremities and no sensory deficits noted Neuro Narrative: Patient has overall weakness of both lower extremities and is unable to get up without maximal assistance. Patient has some slurring of his speech when he talks Sensorium / Orientation: awake and alert Psych affect normal Assessment & Plan Assessment/Plan (1) Ischemic stroke: PLAN: Plan 1. Acute ischemic infarction of the right pina-patient will continue to be seen by PT and OT and speech therapy, he will need short-term placement in a senior care facility or rehab facility, we will have to get approval from his insurance carrier regarding this. Patient will have an echocardiogram performed tomorrow due to the fact his previous echocardiogram did not mention whether he had an ASD or not. He remains on aspirin and Plavix at this time. I do not feel that teleneurology needs to see the patient at this time. #2 type 2 diabetes-blood sugars will be monitored, sliding scale insulin will be used if needed, I have decided to place the patient on long-acting insulin twice a day, I will start out with 15 units Lantus twice daily. #3 essential hypertension-patient will remain on his present medications #4 hyperlipidemia-patient is currently on a statin #5 chronic depression-patient is on Zoloft Charges/Coding Visit Charges Inpatient E&M: 35021 Init Hosp L3
--- NOTE | 2022-03-17 18:30 | NURSING ---
Reviewed charting with Mary Burnett RN
[2022-03-17 18:51] LABS: Bedside Glucose 313 mg/dL (74-106)
[2022-03-17] MEDS: Atorvastatin Calcium 40 MG Tablet PO (21:37)
[2022-03-17] MEDS: busPIRone 5 MG Tablet 10 MG PO (21:38)
[2022-03-17 22:05] LABS: Bedside Glucose 315 mg/dL (74-106)
[2022-03-18] VITALS (14 sets, daily range): BP systolic 103–117; BP diastolic 59–89; PULSE 64–74; RESP 16–20; TEMP 36.1–36.9; O2SAT 92–95; BMI 31.6
[2022-03-18] MEDS: Insulin Lispro 100 UNIT/ML INSULN.PEN SC ×4 (06:17→20:26)
[2022-03-18 06:40] LABS: Bedside Glucose 284 mg/dL (74-106)
[2022-03-18] MEDS: Lisinopril 20 MG Tablet PO (08:33)
[2022-03-18] MEDS: Nortriptyline 10 MG Capsule 20 MG PO (08:33)
[2022-03-18] MEDS: amLODIPine 10 MG Tablet PO (08:33)
[2022-03-18] MEDS: Clopidogrel Bisulfate 75 MG Tablet PO (08:33)
[2022-03-18] MEDS: Sertraline 100 MG Tablet 150 MG PO (08:33)
[2022-03-18] MEDS: Metoprolol Tartrate 100 MG Tablet 150 MG PO ×3 (08:33→20:25)
[2022-03-18] MEDS: Aspirin 81 MG TAB.CHEW PO (08:33)
[2022-03-18] MEDS: APIXABAN 2.5 MG TABLET PO (08:34)
[2022-03-18] MEDS: Tamsulosin HCl 0.4 MG Capsule PO (08:34)
[2022-03-18] MEDS: Pregabalin 50 MG Capsule 100 MG PO ×2 (08:38→20:25)
--- NOTE | 2022-03-18 10:12 | CASEMGMT ---
SW reviewed chart and noted that therapy is recommending rehab at d/c. SW met with patient, introduced self and role at [facility]. SW asked patient if he was planning on going somewhere for rehab. Patient said he and his decided they do not want him to go somewhere for rehab. They would prefer home health. SW asked patient if SW could call his and he said she is not allowed to get phone calls at work. Patient's works at [employer] and they are cracking down on phone calls. SW asked patient if he feels he can manage at home by himself while his works and patient said he thinks he will be fine. SW will talk with therapy to see if they feel patient would be safe for home with home health. Mayte BRISENO
--- NOTE | 2022-03-18 11:15 | CASEMGMT ---
Per therapy, they recommend IP rehab for pt and do not feel that pt should be home alone. Per therapy, pt is agreeable but his is not. Call to pt's to discuss therapy recommendations and is agreeable to pt going to rehab. aware of need for precert from insurance and would like to be updated when pt to move to rehab, if accepted/precerted. Cordelia THOMPSON aware, voices understanding. SStsara TOLEDO CM
--- NOTE | 2022-03-18 11:23 | CASEMGMT ---
SW spoke with patient and he was just getting off the phone with his . Patient confirms he is in agreement with going to [facility] 4th floor Rehab Unit. Patient declined a list for any other facilities as he wants to stay in [place]. SW let patient know that he will stay here until his insurance approves him which will be a day or so. DONNA notified Dasia and she will start the pre-cert. Plan: d/c to [facility] 4th floor Rehab pending insurance approval. Mayte BRISENO
[2022-03-18 11:30] LABS: Bedside Glucose 327 mg/dL (74-106)
--- NOTE | 2022-03-18 13:07 | PN.HOSP_ITS ---
Subjective Subjective Patient seen and examined. He is complaining of diarrhea. He denies any fever, chills, cough, chest pain, palpitations, dizziness, nausea, vomiting or diarrhea. Review of systems is otherwise negative. He has remained hemodynamically stable. Objective Data Objective Data Vital Signs: Vital Signs Temp Pulse Resp BP Pulse Ox O2 Del Method 98.4 F 65 16 103/65 95 Room Air 03/18/22 12:35 03/18/22 12:35 03/18/22 12:35 03/18/22 12:35 03/18/22 12:35 03/18/22 12:35 Oxygen Delivery Method Room Air Weight: 195 lb 12.328 oz Body Mass Index (BMI) 31.6 Intake & Output: Intake and Output for Last 24 Hours 03/16/22 03/17/22 03/18/22 23:59 23:59 23:59 Intake Total 1030 / 1030 1050 / 1050 640 / 640 Output Total 0 / 0 450 / 450 250 / 250 Balance 1030 / 1030 600 / 600 390 / 390 Lab / Micro Data Result Diagrams: 03/16/22 06:43 03/16/22 06:43 Labs: Laboratory Results - last 24 hr 03/17/22 17:58: POC Glucose 313 H 03/17/22 21:44: POC Glucose 315 H 03/18/22 06:15: POC Glucose 284 H 03/18/22 11:08: POC Glucose 327 H Micro: Microbiology 03/18/22 09:45 Stool Enteric Bacteriology - Final Physical Exam Const alert, oriented x3 and no apparent distress HEENT head/scalp atraumatic, moist oral mucous membranes and oropharynx normal Head and Scalp: normocephalic Mouth: oral and palatal mucosa normal Eyes PERRL, EOMs intact bilaterally and conjunctivae normal Neck no lymphadenopathy, supple and no JVD Resp normal respiratory effort, no retractions, no use of accessory muscles and clear to auscultation bilaterally Cardio regular rate, regular rhythm, S1 normal heart sound, S2 normal heart sound and no murmurs GI normal to inspection, nondistended, normoactive bowel sounds Extremity normal to inspection, full ROM and no clubbing, cyanosis or edema Neuro oriented x3, CN's II-XII intact bilaterally, moves all extremities and no focal motor deficits Sensorium / Orientation: awake and alert Motor Exam: strength 5/5 throughout Psych affect normal Assessment & Plan Assessment/Plan (1) Ischemic stroke: PLAN: Plan #Acute ischemic CVA * on aspirin and plavix as well as high intensity statin * MRi of the brain showed acute small right pontine infarct * 2D echo done today and read is pending * #Diarrhea * Patient complaining of profuse diarrhea over the last couple of days. C. difficile screen ordered. Will monitor. If C. difficile is negative will start on immodium * #TYpe 2 diabetes mellitus * on ISS. Accuchecks ACHS * on lantus 15 units bid * on metformin * #Hypertension: On amlodipine and lisinopril as well as metoprolol #Hyperlipidemia: on high intensity statin #Depression: on zoloft DVT prophylaxis: On Eliquis 2.5 mg twice daily; * it is unclear why he was on eliquis. The dosage of 2.5 mg twice daily would not really treat anything for his age and kidney function. And therefore wondering if he was likely on this as DVT prophylaxis after he got COVID and has carried over on his chart. * I am concerned because he is on aspirin, Plavix and Eliquis and so has an increased bleeding risk if he continues to take all 3. Charges/Coding Visit Charges Inpatient E&M: 46917 Subs Hosp L2
[2022-03-18 16:35] LABS: Bedside Glucose 253 mg/dL (74-106)
[2022-03-18] MEDS: Atorvastatin Calcium 40 MG Tablet PO (20:25)
[2022-03-18] MEDS: busPIRone 5 MG Tablet 10 MG PO (20:41)
[2022-03-18 22:40] LABS: Bedside Glucose 343 mg/dL (74-106)
[2022-03-19] VITALS (12 sets, daily range): BP systolic 105–119; BP diastolic 66–81; PULSE 64–68; RESP 16–20; TEMP 36.4–36.9; O2SAT 93–95; BMI 31.6
[2022-03-19] MEDS: Insulin Lispro 100 UNIT/ML INSULN.PEN SC ×2 (06:17→11:17)
[2022-03-19 06:22] LABS: Absolute Lymphocyte Count 1.35 X10^3/uL (0.83-4.51); Absolute Neutrophil Count 4.4 X10^3/uL (2.0-7.7); Basophil# 0.03 X10^3/uL; Basophil% 0.5 % (0-1); Eosinophil# 0.14 X10^3/uL; Eosinophils% 2.1 % (0-5); Hematocrit 35.7 % (40-54); Hemoglobin 12.8 g/dL (13.0-16.5); Lymphocyte # 1.35 X10^3/ul (0.83-4.51); Lymphocyte % 20.6 % (19-41); Mean Corp Hgb Conc 35.9 g/dL (32-36); Mean Corpuscular Hgb 30.3 pg (27.0-32.0); Mean Corpuscular Volume 84.4 fL (80-94); Mean Platelet Vol. 11.3 fl (6.2-12.0); Monocyte# 0.62 X10^3/uL; Monocyte% 9.5 % (0-10); NRBC Flagged by Analyzer 0 % (0-5); Neutrophil # 4.41 X10^3/uL (2.7-7.7); Neutrophil % 67.1 % (47-70); Platelet Count 144 K/mm3 (150-450); RBC Distribution Width CV 12.1 % (11.6-14.6); RBC Distribution Width SD 36.8 fl (35.1-43.9); Red Blood Count 4.23 M/mm3 (4.6-6.2); White Blood Count 6.6 K/mm3 (4.4-11.0)
[2022-03-19 06:41] LABS: Bedside Glucose 304 mg/dL (74-106)
[2022-03-19 06:47] LABS: Anion Gap 7 (5-15); BUN 42 mg/dL (7-18); BUN/Creat Ratio 29.6 RATIO (10-20); Calcium,Total 8.8 mg/dL (8.5-10.1); Chloride 101 mmol/L (98-107); Creatinine, Serum 1.42 mg/dL (0.70-1.30); EST Glomerular Filtration Rate 53 mL/min (>60); Est Glom Filt Rate - Afr Amer 64 mL/min (>60); Estimated Creatinine Clearance 46.18 ml/min; Glucose 289 mg/dL (74-106); Potassium 4.1 mmol/L (3.5-5.1); Sodium Level 135 mmol/L (136-145)
[2022-03-19] MEDS: Sertraline 100 MG Tablet 150 MG PO (08:19)
[2022-03-19] MEDS: Lisinopril 20 MG Tablet PO (08:19)
[2022-03-19] MEDS: Aspirin 81 MG TAB.CHEW PO (08:19)
[2022-03-19] MEDS: Tamsulosin HCl 0.4 MG Capsule PO (08:19)
[2022-03-19] MEDS: Nortriptyline 10 MG Capsule 20 MG PO (08:19)
[2022-03-19] MEDS: Pregabalin 50 MG Capsule 100 MG PO (08:19)
[2022-03-19] MEDS: Clopidogrel Bisulfate 75 MG Tablet PO (08:20)
[2022-03-19] MEDS: Enoxaparin 40 MG/0.4 ML Syringe SC (08:20)
[2022-03-19] MEDS: amLODIPine 10 MG Tablet PO (08:20)
--- NOTE | 2022-03-19 09:47 | PN.HOSP_ITS ---
Subjective Subjective Patient seen and examined. He had no complaints. He had an uneventful night. His diarrhea has stopped and he did not even need the loperamide. Review of systems otherwise negative. He is awaiting placement. He has remained hemodynamically stable. Objective Data Objective Data Vital Signs: Vital Signs Temp Pulse Resp BP Pulse Ox O2 Del Method 97.5 F L 66 16 119/81 H 93 Room Air 03/19/22 08:30 03/19/22 08:30 03/19/22 08:30 03/19/22 08:30 03/19/22 08:30 03/19/22 08:30 Oxygen Delivery Method Room Air Weight: 195 lb 12.328 oz Body Mass Index (BMI) 31.6 Intake & Output: Intake and Output for Last 24 Hours 03/17/22 03/18/22 03/19/22 23:59 23:59 23:59 Intake Total 1050 / 1050 1120 / 1320 260 / 260 Output Total 450 / 450 250 / 250 0 / 0 Balance 600 / 600 870 / 1070 260 / 260 Lab / Micro Data Result Diagrams: 03/19/22 05:54 03/19/22 05:54 Labs: Laboratory Results - last 24 hr 03/18/22 11:08: POC Glucose 327 H 03/18/22 16:03: POC Glucose 253 H 03/18/22 20:09: POC Glucose 343 H 03/19/22 05:54: WBC 6.6, RBC 4.23 L, Hgb 12.8 L, Hct 35.7 L, MCV 84.4, MCH 30.3, MCHC 35.9, RDW Std Deviation 36.8, RDW Coeff of Eben 12.1, Plt Count 144 L, MPV 11.3, Immature Gran % (Auto) 0.200, Neut % (Auto) 67.1, Lymph % (Auto) 20.6, [place] % (Auto) 9.5, Eos % (Auto) 2.1, Baso % (Auto) 0.5, Absolute Neuts (auto) 4.4, Absolute Lymphs (auto) 1.35, Nucleated RBC % 0 03/19/22 05:54: Sodium 135 L, Potassium 4.1, Chloride 101, Carbon Dioxide 27.0, Anion Gap 7, BUN 42 H, Creatinine 1.42 H, Estim Creat Clear Calc 46.18, Est GFR (MDRD) Af Amer 64, Est GFR (MDRD) Non-Af 53 L, BUN/Creatinine Ratio 29.6 H, Glucose 289 H, Calcium 8.8 03/19/22 06:16: POC Glucose 304 H Micro: Microbiology 03/18/22 09:59 Stool C. difficile DNA Amplification - Final 03/18/22 09:45 Stool Enteric Bacteriology - Final Radiography Diagnostic Testing: Radiology Impression Echocardiogram 03/17/22 15:32 Interpretation Summary Normal LV size. The estimated ejection fraction is 45 %. There is mild global hypokinesis of the left ventricle. Bubble contrast study negative for right to left interatrial shunt. Structurally normal valves. Ordering Physician: Stevenson Rodriguez Referring Physician: [facility] Performed By: Preethi Krause RCS Physical Exam Const alert, oriented x3, no apparent distress, average body habitus and healthy appearing General Appearance: cooperative, well kempt and well developed Orientation / Consciousness: awake, oriented to person, oriented to place and oriented to time HEENT normocephalic, head/scalp atraumatic, hearing grossly normal bilaterally, moist oral mucous membranes and oropharynx normal Head and Scalp: normocephalic Mouth: oral and palatal mucosa normal Eyes PERRL, EOMs intact bilaterally and conjunctivae normal Neck no lymphadenopathy, supple, no JVD, thyroid normal and no carotid bruits General: trachea midline Resp normal respiratory effort, no retractions, no use of accessory muscles and clear to auscultation bilaterally Auscultation: Negative for rales, rhonchi or wheezes Cardio regular rate, regular rhythm, S1 normal heart sound, S2 normal heart sound, no murmurs, no rub and no gallops GI normal to inspection, nondistended, normoactive bowel sounds, soft to palpation, non-tender and non-distended Extremity normal to inspection, full ROM and no clubbing, cyanosis or edema Skin no rashes or lesions noted General Skin Exam: no breakdown Neuro oriented x3, CN's II-XII intact bilaterally, moves all extremities, no focal motor deficits and no sensory deficits noted Sensorium / Orientation: awake, alert, oriented to person, oriented to place and oriented to time Motor Exam: strength 5/5 throughout Psych affect normal Assessment & Plan Assessment/Plan (1) Ischemic stroke: PLAN: Plan #Acute ischemic CVA * on aspirin and plavix as well as high intensity statin * MRi of the brain showed acute small right pontine infarct * 2D echo done showed EF of 45% with mild global hypokinesis of the left ventricle, and bubble contrast study negative for right to left interatrial shunt and structurally normal valves- to follow up with cardiology on outpatient basis. * #Diarrhea * C diff was negative * diarrhea resolved even without initiation of immodium * * #TYpe 2 diabetes mellitus * on ISS. Accuchecks ACHS * on lantus 15 units bid * on metformin * #Hypertension: On amlodipine and lisinopril as well as metoprolol #Hyperlipidemia: on high intensity statin #Cardiomyopathy * 2D echo as above. Echo from August 2017 showed EF of 60%, and no evidence of diastolic dysfunction * on lisinopril and metoprolol as well as aspirin and plavix * will benefit from follow up with cardiology on outpatient basis. * #Depression: on zoloft DVT prophylaxis: lovenox 40mg daily. * patient was on eliquis 2.5mg bid, but it appears he was placed on this for DVT prophylaxis after he had covid some months back. * eliquis therefore discontinued * * Disposition: awaiting placement. Charges/Coding Visit Charges Inpatient E&M: 06880 Subs Hosp L2
[2022-03-19 11:45] LABS: Bedside Glucose 347 mg/dL (74-106)
--- NOTE | 2022-03-19 15:06 | DS.PCM_ITS ---
Providers Date of Admission: 03/17/22 Date of Discharge: 03/19/22 Primary Care Physician: [facility] Reason For Visit: LOWER EXTREMITY WEAKNESS, DYSARTHRIA Diagnosis Discharge Diagnosis (1) Ischemic stroke: Status: Acute Code(s): I63.9 - Cerebral infarction, unspecified Plan #Acute ischemic CVA * on aspirin and plavix as well as high intensity statin * MRi of the brain showed acute small right pontine infarct * 2D echo done showed EF of 45% with mild global hypokinesis of the left ventricle, and bubble contrast study negative for right to left interatrial shunt and structurally normal valves- to follow up with cardiology on outpatient basis. * #Diarrhea * C diff was negative * diarrhea resolved even without initiation of immodium * * #TYpe 2 diabetes mellitus * on ISS. Accuchecks ACHS * on lantus 15 units bid * on metformin * #Hypertension: On amlodipine and lisinopril as well as metoprolol #Hyperlipidemia: on high intensity statin #Cardiomyopathy * 2D echo as above. Echo from August 2017 showed EF of 60%, and no evidence of diastolic dysfunction * on lisinopril and metoprolol as well as aspirin and plavix * will benefit from follow up with cardiology on outpatient basis. * #Depression: on zoloft DVT prophylaxis: lovenox 40mg daily. * patient was on eliquis 2.5mg bid, but it appears he was placed on this for DVT prophylaxis after he had covid some months back. * eliquis therefore discontinued * * Disposition: awaiting placement. Medications at Discharge Home Medications amlodipine 5 mg tablet 10 mg PO BID blood pressure 10/05/16 lisinopril 10 mg tablet (Prinivil) 40 mg PO DAILY blood pressure 10/05/16 metformin 1,000 mg tablet 500 mg PO BID blood sugar 10/05/16 metoprolol tartrate 100 mg tablet 150 mg PO BID blood pressure 10/05/16 nortriptyline 10 mg capsule 30 mg PO DAILY migraines 10/05/16 calcium carbonate 500 mg calcium (1,250 mg) tablet 650 mg PO BID supplement 08/17/17 cholecalciferol (vitamin D3) 25 mcg (1,000 unit) tablet (Vitamin D3) 1,000 unit PO BID vitamin 08/17/17 omega-3 fatty acids-fish oil 340 mg-1,000 mg capsule (Fish Oil) 1,000 mg PO BID supplement 08/17/17 pregabalin 25 mg capsule 100 mg PO BID pain 08/17/17 buspirone 10 mg tablet 10 mg PO BID mood 06/17/19 modafinil 200 mg tablet 200 mg PO DAILY narcolepsy 06/17/19 sertraline 100 mg tablet 150 mg PO DAILY mood 06/17/19 aspirin 81 mg chewable tablet 81 mg PO DAILY@0800 heart health 08/17/19 atorvastatin 10 mg tablet 40 mg PO QHS cholesterol 08/17/19 tamsulosin 0.4 mg capsule 0.4 mg PO DAILY urine 03/30/21 clopidogrel 75 mg tablet 75 mg PO DAILY #30 tabs 03/31/21 ondansetron 4 mg disintegrating tablet 4 mg PO Q8H PRN nausea and vomiting #10 tabs 10/05/21 Hospital Course Operations None Procedures 2-D Echocardiogram Summary of Care Provided Minutes Spent on Discharge: 45 Hospital Course: Patient is a 67-year-old male with a past medical history as outlined was admitted through the ED on 03/16/2022 with a complaint of lower extremity weakness and slurred speech which started on the morning of admission when he woke up from sleep. He had gone to bed at around 11 PM on the night before admission and woke up with the above-mentioned symptoms. CT of the brain showed no evidence of acute stroke. NIH stroke scale was 7. CTA of the head and neck showed no evidence of hemodynamically significant occlusion. Teleneurology was contacted and he was placed on 300 mg of Plavix as well as aspirin. MRI of the brain done showed a small right acute pontine infarct. 2D echo done showed EF of 45% with mild global hypokinesis of the left ventricle and negative bubble study. He was placed on aspirin, Plavix and high intensity statin. He was scheduled for rehab. He was discharged to the inpatient rehab unit on 03/19/2022 and is to follow-up with his primary care doctor and outpatient neurology within 2 weeks. Patient seen and examined prior to discharge. He had no active complaints and had an uneventful night. He had had diarrhea and C. difficile was negative but diarrhea subsequently resolved on its own. Labs and vitals reviewed. [facility] ication reviewed and reconciled. Physical Exam Const alert, oriented x3, no apparent distress, average body habitus, no limitations and healthy appearing General Appearance: cooperative, comfortable, well kempt and well developed Orientation / Consciousness: awake, oriented to person, oriented to place and oriented to time HEENT normocephalic, head/scalp atraumatic, hearing grossly normal bilaterally, moist oral mucous membranes and oropharynx normal Eyes PERRL, EOMs intact bilaterally and conjunctivae normal Neck no lymphadenopathy, supple, no JVD, thyroid normal and no carotid bruits General: trachea midline Resp normal respiratory effort, no retractions, no use of accessory muscles and clear to auscultation bilaterally Auscultation: Negative for rales, rhonchi or wheezes Cardio regular rate, regular rhythm, S1 normal heart sound, S2 normal heart sound, no murmurs, no rub and no gallops GI normal to inspection, nondistended, normoactive bowel sounds, soft to palpation, non-tender and non-distended Extremity normal to inspection, full ROM and no clubbing, cyanosis or edema Skin no rashes or lesions noted General Skin Exam: no breakdown Neuro oriented x3, CN's II-XII intact bilaterally, moves all extremities, no focal motor deficits and no sensory deficits noted Sensorium / Orientation: awake, alert, oriented to person, oriented to place and oriented to time Motor Exam: strength 5/5 throughout Psych affect normal Weight / BMI Weight Weight: 195 lb 12.328 oz Body Mass Index (BMI) 31.6 ABG / Lab / Microbiology Data Result Diagrams: 03/19/22 05:54 03/19/22 05:54 Laboratory: Laboratory Results - last 24 hr 03/18/22 16:03: POC Glucose 253 H 03/18/22 20:09: POC Glucose 343 H 03/19/22 05:54: WBC 6.6, RBC 4.23 L, Hgb 12.8 L, Hct 35.7 L, MCV 84.4, MCH 30.3, MCHC 35.9, RDW Std Deviation 36.8, RDW Coeff of Eben 12.1, Plt Count 144 L, MPV 11.3, Immature Gran % (Auto) 0.200, Neut % (Auto) 67.1, Lymph % (Auto) 20.6, [place] % (Auto) 9.5, Eos % (Auto) 2.1, Baso % (Auto) 0.5, Absolute Neuts (auto) 4.4, Absolute Lymphs (auto) 1.35, Nucleated RBC % 0 03/19/22 05:54: Sodium 135 L, Potassium 4.1, Chloride 101, Carbon Dioxide 27.0, Anion Gap 7, BUN 42 H, Creatinine 1.42 H, Estim Creat Clear Calc 46.18, Est GFR (MDRD) Af Amer 64, Est GFR (MDRD) Non-Af 53 L, BUN/Creatinine Ratio 29.6 H, Gluc ose 289 H, Calcium 8.8 03/19/22 06:16: POC Glucose 304 H 03/19/22 11:15: POC Glucose 347 H Microbiology: Microbiology 03/18/22 09:59 Stool C. difficile DNA Amplification - Final 03/18/22 09:45 Stool Enteric Bacteriology - Final Radiography Diagnostic Testing: Radiology Impression Echocardiogram 03/17/22 15:32 Interpretation Summary Normal LV size. The estimated ejection fraction is 45 %. There is mild global hypokinesis of the left ventricle. Bubble contrast study negative for right to left interatrial shunt. Structurally normal valves. Ordering Physician: Stevenson Rodriguez Referring Physician: [facility] Performed By: Preethi Krause RCS D/C Instructions Discharge Diet: Low fat / Low cholesterol Discharge Activity: Return to Normal Activity Weight Bearing Status: Weight bearing as tolerated Call your doctor if you observe: Fever of 101 or Higher, Shortness of breath, Dizziness, Swelling in the ankles and Chest pain Meaningful Use Info Meaningful Use Diagnoses (Choose all that apply): Ischemic CVA CVA Therapy Assessed for PT,OT and/or ST?: Yes Ischemic Stroke Antithrombotic order at d/c?: Yes Dx of Atrial fib/flutter?: No Anticoagulant at discharge?: No Reason anticoagulant not ordered: Treatment not Indicated Statins at discharge?: Yes Primary Dx Acute Ischemic CVA?: Yes IV tPA ordered during stay?: No Reason IV t-PA not ordered: Treatment not Indicated Discharge Plan Admission Admit Date/Time: 03/17/22 15:32 Primary Reason for Your Visit: acute CVA Attending Provider: Julianna Malagon Primary Care Provider: [facility],[place] Consulting Providers: Stevenson Rodriguez Instructions Patient Instructions: Booklet - [facility] Stroke ED - Living After Stroke Discharge Orders/Prescriptions Prescriptions: Continued metoprolol tartrate 100 MG tablet 150 mg PO BID amlodipine 5 MG tablet 10 mg PO BID nortriptyline 10 MG capsule 30 mg PO DAILY metformin 1,000 MG tablet 500 mg PO BID lisinopril [Prinivil] 10 MG tablet 40 mg PO DAILY pregabalin 25 MG capsule 100 mg PO BID calcium carbonate 500 MG tablet 650 mg PO BID Fish Oil 1 EACH capsule 1,000 mg PO BID cholecalciferol (vitamin D3) [Vitamin D3] 1,000 UNIT tablet 1,000 unit PO BID sertraline 100 MG tablet 150 mg PO DAILY modafinil 200 MG tablet 200 mg PO DAILY buspirone 10 MG tablet 10 mg PO BID atorvastatin 10 MG tablet 40 mg PO QHS aspirin 81 MG tablet,chewable 81 mg PO DAILY@0800 tamsulosin 0.4 mg Capsule 0.4 mg PO DAILY clopidogrel 75 mg Tablet 75 mg PO DAILY Qty: 30 0RF ondansetron 4 mg tablet,disintegrating 4 mg PO Q8H PRN (Reason: nausea and vomiting) Qty: 10 0RF Discontinued Eliquis 2.5 mg tablet 2.5 mg PO BID Qty: 30 0RF hydrocodone-acetaminophen 5-325 mg tablet 1 tab PO Q6H PRN (Reason: pain) 3 Days Qty: 10 0RF Referrals / Follow Up: Osei Enciso MD [Non-Staff -Ordering Privileges] - Within 2 Weeks [facility],[place] [Primary Care Provider] - Within 2 Weeks Anant Artis MD [Med Staff - Active Staff] - Within 2 Weeks (see to establish care o/a of reduced EF on echo) Disposition Disposition (needs filled in before D/C Order can be placed): Inpatient Rehab Unit/Facility Charges/Coding Visit Charges Inpatient E&M: 43263 Disch Hosp
--- NOTE | 2022-03-19 15:09 | CASEMGMT ---
Patient was approved to go to Inpatient Rehab Unit. SW notified RN, medical unit secretary, lithopone charger, patient, physician, and patient's via phone. Plan: d/c to [facility] Inpatient Rehab Unit. Mayte BRISENO
--- NOTE | 2022-03-19 15:41 | NURSING ---
Report called to TRE Doherty at in patient rehab at 1537.
--- NOTE | 2022-03-19 16:21 | PHA.DC.MR ---
Pharmacy Service has performed discharge medication reconciliation for this patient. The patient's discharge medication list was reviewed for discrepancies and discrepancies were resolved. Home Medications amlodipine 5 mg tablet 10 mg PO BID blood pressure 10/05/16 lisinopril 10 mg tablet (Prinivil) 40 mg PO DAILY blood pressure 10/05/16 metformin 1,000 mg tablet 500 mg PO BID blood sugar 10/05/16 metoprolol tartrate 100 mg tablet 150 mg PO BID blood pressure 10/05/16 nortriptyline 10 mg capsule 30 mg PO DAILY migraines 10/05/16 calcium carbonate 500 mg calcium (1,250 mg) tablet 650 mg PO BID supplement 08/17/17 cholecalciferol (vitamin D3) 25 mcg (1,000 unit) tablet (Vitamin D3) 1,000 unit PO BID vitamin 08/17/17 omega-3 fatty acids-fish oil 340 mg-1,000 mg capsule (Fish Oil) 1,000 mg PO BID supplement 08/17/17 pregabalin 25 mg capsule 100 mg PO BID pain 08/17/17 buspirone 10 mg tablet 10 mg PO BID mood 06/17/19 modafinil 200 mg tablet 200 mg PO DAILY narcolepsy 06/17/19 sertraline 100 mg tablet 150 mg PO DAILY mood 06/17/19 aspirin 81 mg chewable tablet 81 mg PO DAILY@0800 heart health 08/17/19 atorvastatin 10 mg tablet 40 mg PO QHS cholesterol 08/17/19 tamsulosin 0.4 mg capsule 0.4 mg PO DAILY urine 03/30/21 clopidogrel 75 mg tablet 75 mg PO DAILY #30 tabs 03/31/21 ondansetron 4 mg disintegrating tablet 4 mg PO Q8H PRN nausea and vomiting #10 tabs 10/05/21
== END 2022-03-19 16:30 | DRG 65 ==
LOC: ED 07:54 → PCU 08:53
PROVIDERS: Admitting Provider Internal Medicine; Emergency Provider Emergency Medicine; Visit Provider Student in an Organized Health Care Education/Training Program
DX: I63.9 Cerebral infarction, unspecified (principal); I42.9 Cardiomyopathy, unspecified; E11.9 Type 2 diabetes mellitus without complications; I25.10 Atherosclerotic heart disease of native coronary artery without angina pectoris; I10 Essential (primary) hypertension; E78.5 Hyperlipidemia, unspecified; R19.7 Diarrhea, unspecified; G89.29 Other chronic pain; Z87.891 Personal history of nicotine dependence; Z79.01 Long term (current) use of anticoagulants; Z82.3 Family history of stroke; Z79.02 Long term (current) use of antithrombotics/antiplatelets; Z79.84 Long term (current) use of oral hypoglycemic drugs; Z86.16 Personal history of COVID-19; Z79.82 Long term (current) use of aspirin; F32.A Depression, unspecified
CPT/HCPCS: 36415; 70450; 70496; 70498; 70551; 71045; 80048; 80061; 82962; 84484; 85025; 85610; 85730; 87493; 87506; 92507; 92523; 92610; 93005; 93306; 94762; 97116; 97162; 97166; 97530; 97535; 97802; 99285; Q9967; A4216

== ENCOUNTER 2022-03-19 16:40 | Inpatient (IN) | payer MEDICARE, SELFPAY ==
[2022-03-19 16:53] VITALS: BMI 32.3
[2022-03-19 17:34] VITALS: BP 112/65; PULSE 71; RESP 16; TEMP 36.3; O2SAT 96
[2022-03-19 17:45] VITALS: BMI 32.3
[2022-03-19 19:04] VITALS: BP 112/65; PULSE 71; RESP 16; TEMP 36.3; O2SAT 96
--- NOTE | 2022-03-19 19:18 | HP.PCM_ITS ---
HPI - General General Date of Admission: 03/19/22 Date of Service: 03/20/22 Chief Complaint: Here for greater than 3 hours daily rehabilitation. HPI Narrative 03/16/2022 OPAL CRUZ, is a 67 Male who presents to [facility] Emergency Department with stroke alert. 03/16/2022 EKG normal sinus rhythm, inferior infarct, age undetermined, ST&T wave abnormality, consider lateral ischemia, prolonged QT. Went to bed 11PM, woke up with leg weakness, unable to walk. Fell due to leg weakness, no head injury, no loss of consciousness. He takes aspirin intermittently. Slurred speech, altered sensation consistent with stroke. CT head negative, TPA not recommended, outside window. CTA head showed MDA M2 lesion, [facility] recommended medical management. Aspirin, Plavix given. 03/16/2022 Admit to Hospital. MRI brain, aspirin, plavix, statin for stroke. 03/17/2022 Echo Normal LV size. EF 45%. Mild global LV hypokinesis. bubble study negative shunt. 03/17/2022 PT/OT recommended RU. MRI brain showed acute right pina infarct. Start Lantus 15 units twice daily for diabetes control. 03/18/2022 Diarrhea. Aspirin, Plavix, high intensity statin for stroke. Check c. diff for diarrhea. Consider stopping Eliquis 2.5mg bid, ?post covid DVT/PE prophylaxis. 03/19/2022 Diarrhea resolved. Follow up with cardiology outpatient for decrease EF 60% August 2017 to 45% 03/17/2022. 03/19/2022 Admit to for > 3 hours daily rehabilitation, strengthening, prior to discharge home with . [facility] Medical History Anxiety Chest pain Chronic pain Coronary artery disease CPAP (continuous positive airway pressure) dependence Depression Diabetes Elevated lipase Former smoker GERD (gastroesophageal reflux disease) GI bleed Hearing loss, left Hearing loss, right Hernia History of COVID-19 Hypertension Hypothyroidism Migraines Myocardial infarct Osteoporosis Sleep apnea Vision loss of right eye Home Medications amlodipine 5 mg tablet 10 mg PO BID blood pressure 10/05/16 [History Last Taken 03/19/22 08:00] lisinopril 10 mg tablet (Prinivil) 40 mg PO DAILY blood pressure 10/05/16 [History Last Taken 03/19/22 08:00] metoprolol tartrate 100 mg tablet 150 mg PO BID blood pressure 10/05/16 [History Last Taken 03/19/22 08:00] nortriptyline 10 mg capsule 30 mg PO DAILY migraines 10/05/16 [History Last Taken 03/19/22 08:00] calcium carbonate 500 mg calcium (1,250 mg) tablet 650 mg PO BID supplement 08/17/17 [History Last Taken 04/03/21 08:00] cholecalciferol (vitamin D3) 25 mcg (1,000 unit) tablet (Vitamin D3) 1,000 unit PO BID vitamin 08/17/17 [History Last Taken 04/03/21 08:00] omega-3 fatty acids-fish oil 340 mg-1,000 mg capsule (Fish Oil) 1,000 mg PO BID supplement 08/17/17 [History Last Taken 04/03/21 08:00] buspirone 10 mg tablet 10 mg PO BID mood 06/17/19 [History Last Taken 04/03/21 22:00] modafinil 200 mg tablet 200 mg PO DAILY narcolepsy 06/17/19 [History Last Taken 04/03/21 08:00] aspirin 81 mg chewable tablet 81 mg PO DAILY heart health 08/17/19 [History Last Taken 03/19/22 08:00] atorvastatin 10 mg tablet 40 mg PO QHS cholesterol 08/17/19 [History Last Taken 04/03/21 22:00] tamsulosin 0.4 mg capsule 0.4 mg PO DAILY urine 03/30/21 [History Last Taken 03/19/22 08:00] ondansetron 4 mg disintegrating tablet 4 mg PO Q8H PRN nausea and vomiting #10 tabs 10/05/21 [Rx Last Taken Unknown] clopidogrel 75 mg tablet 75 mg PO DAILY Check with primary doctor 03/19/22 [History Last Taken 03/19/22 08:00] enoxaparin 40 mg/0.4 mL subcutaneous syringe (Lovenox) 40 mg subcut DAILY DTV prevetnion 03/19/22 [History Last Taken Unknown] metformin 500 mg tablet 500 mg PO BID blood sugar 03/19/22 [History Last Taken Unknown] pregabalin 100 mg capsule 100 mg PO BID pain 03/19/22 [History Last Taken 03/19/22 08:00] sertraline 150 mg capsule 150 mg PO DAILY mood 03/19/22 [History Last Taken 03/19/22 08:00] Allergy/AdvReac Type Severity Reaction Status Date / Time No Known Allergies Allergy Verified 10/05/21 14:36 Family History Mother Diabetes Father Heart disease CVA (cerebral vascular accident) Surgical History History of back surgery History of cholecystectomy Social History (Updated 03/19/22 @ 19:[address] Asad Lester MD) household members: spouse and children housing: apartment current occupational status: disabled Smoking Status: Former smoker Tobacco: How many years used: 30 alcohol intake: never substance use type: does not use diet: diabetic what type of physical activity do you participate in: walking ROS Constitutional Constitutional: Denies chills, fever(s) or weight gain ENT HEENT: Denies headache(s), nasal congestion or nasal discharge Cardiovascular Cardiovascular: Denies chest pain or palpitations Respiratory/Chest Respiratory/Chest: Denies cough, excessive phlegm production or shortness of breath with exertion Gastrointestinal Gastrointestinal: Denies abdominal pain, nausea or vomiting Genitourinary Genitourinary: Denies dysuria Musculoskeletal Musculoskeletal: Denies joint pain or joint swelling Integumentary Integumentary: Denies rash or wounds Neurologic Neurologic: Reports abnormal speech and focal weakness; Denies numbness or tingling Psychiatric Psychiatric: Denies anxiety, auditory hallucinations, depression, homicidal ideation or suicidal ideation Vital Signs Vital Signs Vital Signs: 03/19/22 17:34 03/19/22 18:07 03/19/22 19:04 Temperature 97.4 F L 97.4 F L Temperature Source Temporal Oral Pulse Rate 71 71 Pulse Strength Normal (2+) Respiratory Rate 16 16 Blood Pressure 112/65 112/65 Blood Pressure Mean 80 80 Blood Pressure Source Monitor Monitor Blood Pressure Position Semi-Fowlers Semi-Fowlers Blood Pressure Location Left Arm Left Arm Pulse Ox 96 96 Oxygen Delivery Method Room Air Room Air Weight Weight: 90.718 kg Body Mass Index (BMI) 32.3 Indicators for Scoring Admitted with or Primary Diagnosis of CVA/Stroke: Yes Hx of CVA/Stroke: No Modified Ba Score MRS Score at time of Evaluation: 4-Moderate/severe disability NIHSS NIHSS 1a. Level of Consciousness: Alert; keenly responsive 1b. LOC Questions: Answers BOTH questions correctly. 1c. LOC Commands: Performs both tasks correctly. 2. Best Gaze: Normal 3. Visual: No visual loss 4. Facial Palsy: Minor paralysis (flattened nasolabial fold, asymmetry on smiling) 5a. Left Arm: Drift; arm drifts downward but doesn?t hit the bed 5b. Right Arm: No drift; arm holds 90 (or 45) degrees for full 10 seconds 6a. Left Leg: No effort against gravity; leg falls to bed immediately 6b. Right Leg: No drift; leg holds 30-degree position for full 5 seconds 7. Limb Ataxia: Absent 8. Sensory: Normal; no sensory loss 9. Best Language: [id number] aphasia; 10. Dysarthria: [id number] dysarthria; 11. Extinction and Inattention: No abnormality Total: 7 Stroke Questions Stroke Team Activated: Yes a.Reviewed Inclusion/Exclusion criteria: Yes Was Patient considered for Endovascular Intervention?: No IV TPA Administered: No No contraindications for IV Alteplase (t-PA) administration.: Yes Risks, Benefits, Alternatives Discussed: Yes Not given: Patient refusal: No Critical care time (excluding procedures): 30-74 minutes Physical Exam Const alert General Appearance: cooperative HEENT normocephalic Eyes PERRL and EOMs intact bilaterally Neck supple, no JVD and no carotid bruits Resp normal respiratory effort, normal air movement and clear to auscultation bilaterally Cardio regular rate and regular rhythm GI normal to inspection, nondistended, normoactive bowel sounds, non-tender and non-distended Extremity normal capillary refill General Extremity: Negative for edema Skin no rashes or lesions noted General Skin Exam: no breakdown Neuro Neuro Narrative: Left hemiparesis. 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 * Debility - PT/OT/ST. * Pain - Tylenol 1000mg q6h prn pain (1-10). * Bowel - senna/colace 2 tablets bid, Dulcolax 10mg pr x 1 prn, MOM 30ml po x 1 prn. * DVT prophylaxis - Lovenox 40mg sc daily. * Hypertension - Metoprolol 150mg bid, Lisinopril 40mg daily, Amlodipine 10mg daily. * Acute right pontine stroke - Aspirin 81mg daily, Plavix 75mg daily thru 04/16/2022. * Hyperlipidemia - Atorvastatin 40mg qhs, [place]-3 1gm bid. * Anxiety - Buspar 10mg bid. * Calcium deficiency - Calcium 500mg bidcm. * Diabetes Mellitus II - Metformin 500mg bidcm, Glucagon 1mg im x1 prn, Humalog 10 units tid. * Narcolepsy - Provigil 200mg daily. * Migraine - Nortriptyline 30mg daily. * Nausea - Zofran 4mg q8h prn. * Depression - Sertraline 150mg daily. * BPH - Tamsulosin 0.4mg daily, straight cath to empty PVR > 300ml. * Vitamin D deficiency - D3 25mcg daily. * Abnormal Echo - Patient goes to [place], will discuss with him where he would like to go for cardiology follow up.
[2022-03-19 20:05] VITALS: O2SAT 95
[2022-03-19 20:52] VITALS: BMI 32.3
[2022-03-19 21:40] VITALS: PULSE 73
[2022-03-19] MEDS: Metoprolol Tartrate 100 MG Tablet 150 MG PO (21:40)
[2022-03-19] MEDS: Omega-3 Acid Ethyl Esters 1 GM Capsule PO (21:40)
[2022-03-19] MEDS: busPIRone 5 MG Tablet 10 MG PO (21:41)
[2022-03-19] MEDS: Atorvastatin Calcium 40 MG Tablet PO (21:41)
[2022-03-19] MEDS: Pregabalin 50 MG Capsule 100 MG PO (21:48)
[2022-03-19 22:00] VITALS: PULSE 78; RESP 16; O2SAT 95
[2022-03-19 22:20] LABS: Bedside Glucose 415 mg/dL (74-106)
[2022-03-19] MEDS: Insulin Lispro 100 UNIT/ML INSULN.PEN 9 UNIT SC (22:52)
[2022-03-19 22:56] LABS: Bedside Glucose 299 mg/dL (74-106)
--- NOTE | 2022-03-19 22:59 | NURSING ---
Pt BS @ hs was 419. Pt states he usually takes U500 TID at home and Humalog DIMPLE had been cancelled. This RN paged the Hospitalist, Dr Piero Walls to make him aware of pt developments. Dr Walls asked for a BS recheck now which was 299. Dr Walls placed x1 dose of 9u Humalog order to MAR and that was administered. BS is ordered to be checked at 02:00 with a SS of Humalog is ordered.
[2022-03-20] MEDS: Insulin Lispro 100 UNIT/ML INSULN.PEN SC ×5 (02:19→21:53)
[2022-03-20 02:46] LABS: Bedside Glucose 269 mg/dL (74-106)
--- NOTE | 2022-03-20 05:38 | NURSING ---
pt set off BA for urinal use. Pt found attempting to get out of bed by staff. Pt had poor stability standing up and a heavy x1 assist, leaning heavily to the left. Staff was unavailable for x2 assist at that moment and pt had poor safety awareness.
[2022-03-20] MEDS: Enoxaparin 40 MG/0.4 ML Syringe SC ×2 (06:13→10:57)
[2022-03-20] MEDS: 0.9% Saline Lock 10 ML Syringe IV (06:15)
[2022-03-20 06:50] LABS: Bedside Glucose 181 mg/dL (74-106)
[2022-03-20 07:27] VITALS: BP 129/72; PULSE 71; RESP 15; TEMP 36.6; O2SAT 93
[2022-03-20] MEDS: Calcium (Elemental) 500 MG Tablet PO ×2 (07:48→16:39)
[2022-03-20] MEDS: busPIRone 5 MG Tablet 10 MG PO ×2 (07:48→21:48)
[2022-03-20] MEDS: Lisinopril 40 MG Tablet PO (07:49)
[2022-03-20] MEDS: Senna/Docusate Sodium 1 Tablet 2 TABLET PO ×2 (07:49→21:48)
[2022-03-20] MEDS: Sertraline 100 MG Tablet 150 MG PO (07:49)
[2022-03-20] MEDS: amLODIPine 10 MG Tablet PO (07:49)
[2022-03-20] MEDS: Aspirin 81 MG TAB.CHEW PO (07:49)
[2022-03-20] MEDS: Cholecalciferol (VIT D3) 25 MCG TABLET (1,000 UNITS) PO ×2 (07:49→16:39)
[2022-03-20] MEDS: Clopidogrel Bisulfate 75 MG Tablet PO (07:49)
[2022-03-20] MEDS: metFORMIN HCl 500 MG Tablet PO ×2 (07:49→16:39)
[2022-03-20] MEDS: Omega-3 Acid Ethyl Esters 1 GM Capsule PO ×2 (07:49→21:48)
[2022-03-20] MEDS: Tamsulosin HCl 0.4 MG Capsule PO (07:49)
[2022-03-20 07:50] VITALS: PULSE 72
[2022-03-20] MEDS: Nortriptyline 10 MG Capsule 30 MG PO (07:50)
[2022-03-20] MEDS: Metoprolol Tartrate 100 MG Tablet 150 MG PO ×2 (07:50→21:48)
[2022-03-20] MEDS: Pregabalin 50 MG Capsule 100 MG PO ×2 (07:55→21:48)
[2022-03-20 08:47] VITALS: BMI 32.3
[2022-03-20] MEDS: Modafinil 200 MG Tablet PO (08:51)
[2022-03-20 10:00] VITALS: O2SAT 93
[2022-03-20] MEDS: Insulin Lispro 100 UNIT/ML INSULN.PEN 10 UNIT SC ×2 (11:03→16:39)
[2022-03-20 11:25] LABS: Bedside Glucose 379 mg/dL (74-106)
--- NOTE | 2022-03-20 12:07 | NURSING ---
Notified Dr Lester of pt current B.S. after receiving 10 units of Humalog at 11am. Dr Lester ordered to give sliding scale of 14 units.
[2022-03-20 12:15] LABS: Bedside Glucose 404 mg/dL (74-106)
[2022-03-20 16:50] LABS: Bedside Glucose 188 mg/dL (74-106)
--- NOTE | 2022-03-20 17:29 | REHABEVAL_ITS ---
Admission Information Primary Diagnosis:: Acute right pontine stroke. Status Changes from Prescreening?: No changes Identified Actual Problem List:: Cognitve Impr/Memory Loss, Alteration in Sleep, Mobility Impaired, Self Care Deficit, Ineffective Communication, Diabetes, Hyperglycemia, BP, Hypertension and Alteration-Leisure Activ. Potential Problem List:: DVT, Bleeding, Infection, UTI, Aspiration, Falls, Skin Integrity and Depression Risk of Complications DVT: RICKIE Villarreal Bleeding: Monitor Lab Values, Nursing to Teach Precautions for anti-coagulation therapy. and Stroke patients assessed for lethargy or change in status. Infection: Clinical Staff to Monitor for S/S of infection: and S/S of infection include fever, redness, warmth, etc. Urinary Tract Infection: Monitor for frequency, burning, discomfort, or incontinence. and Nursing will obtain urine sample for urinalysis and C&S when ordered. Aspiration: Clinical staff will monitor for coughing, drooling, congestion., Speech will evaluate swallowing and dsyphasia. and Nursing will monitor patient swallowing during meals. Falls: Patient will be evaluated for Fall Precautions and Patient will be placed on Fall Precautions as indicated per protocol. Skin Breakdown: Nursing will assess skin daily using assessment tool. and Nursing will place on Skin Breakdown Precautions as indicated. Pain: Clinical staff will assess patient's pain level per protocol., Medications will be given, if needed, and the pain level reassessed. and Other methods: Massage, distraction, decrease stimulus, etc. used PRN. Plan of Care Patient requires physician specializing in physical medicine and rehab oversight to provide close medical supervision of rehab issues including: Pain Management, Sleep Problems, Bowel and Bladder, Medical and co-morbidity Management, DVT prophylaxis, Rehabilitation Leadership and Coordination of treatment team Patient needs Physical Therapy: For a minimum of 1 hour and At least 5 out of 7 days Patient needs Physical Therapy to improve:: Mobility, Strengthening, Transfers, Stretching, ROM, Endurance, Gait and Balance Patient needs Occupational Therapy: For a minimum of 1 hour and At least 5 out of 7 days Patient needs Occupational Therapy to improve ADL's incl.: Eating, Grooming, Bathing, Dressing, Toileting, Community Reintegration, Higher functioning activities, Household tasks, Adaptive Equipment, Splinting and Other activities as determined Patient requires speech therapy: For a minimum of 1 hour and At least 5 out of 7 days Patient requires speech therapy for: Swallowing, Cognition and Language Skills Patient requires / Rehabilitation Nursing for: Pain Issues, Identifying and preventing risk factors, Monitoring and reporting current medical conditions, Assisting with ambulation, transfer, and all ADL's, Teaching patients about disease process and medications, Family teaching, Providing safe environment, Bowel and Bladder Issues, Skin integrity and Medication Management Patient needs Water Treatment Plant Operator/ Case Management for: Discharge Planning, Arranging Home Equipment or Services and Family Interventions Patient needs Dietary and Nutrition Services for: Adequate Nutrition, Nutritional Supplements and Nutritional Education Goals Patient will remain: free from falls Patient will perform bed mobility at: Standby Assist. Patient will complete transfers from bed to chair at: MOD I level of assist. Patient will ambulate: 100 feet and with MOD I assist Patient will complete upper body dressing at: Standby Assist. Patient will complete lower body dressing at: Standby Assist. Patient will complete toileting at: Standby Assist. Patient will perform bathing at: Standby Assist. Patient will complete grooming at: Standby Assist. Patient will complete home management skills at: Standby Assist. Patient will have pain level of: of 3 or less Patient's skin will: remain intact and free from infection. Patient will receive: adequate nutrition. Discharge Planning Pt Prognosis for Sig. Practical Improv. w/in Reasonable Time: Good Estimated Length of stay (days): 14 Anticipated D/C Destination: Home with Home Health Was Preadmission Assessment Accurate?: Yes
[2022-03-20 19:25] VITALS: BP 114/58; PULSE 71; RESP 16; TEMP 36.9; O2SAT 93
[2022-03-20 21:00] VITALS: O2SAT 95
[2022-03-20 21:48] VITALS: BP 107/66; PULSE 67
[2022-03-20] MEDS: Atorvastatin Calcium 40 MG Tablet PO (21:48)
[2022-03-20] MEDS: Insulin Glargine-YFGN 100 UNIT/ML Pen 30 UNIT SC (21:53)
[2022-03-20 21:55] LABS: Bedside Glucose 212 mg/dL (74-106)
[2022-03-21 02:16] LABS: Bedside Glucose 203 mg/dL (74-106)
[2022-03-21] MEDS: Insulin Lispro 100 UNIT/ML INSULN.PEN SC ×5 (02:30→21:18)
[2022-03-21 06:45] LABS: Bedside Glucose 175 mg/dL (74-106)
[2022-03-21 07:31] VITALS: BP 102/59; PULSE 61; RESP 17; TEMP 36.1; O2SAT 94
[2022-03-21] MEDS: Insulin Lispro 100 UNIT/ML INSULN.PEN 10 UNIT SC ×3 (07:40→16:58)
[2022-03-21] MEDS: Calcium (Elemental) 500 MG Tablet PO ×2 (07:42→16:59)
[2022-03-21] MEDS: Aspirin 81 MG TAB.CHEW PO (07:42)
[2022-03-21] MEDS: busPIRone 5 MG Tablet 10 MG PO ×2 (07:42→20:38)
[2022-03-21] MEDS: Cholecalciferol (VIT D3) 25 MCG TABLET (1,000 UNITS) PO ×2 (07:42→16:59)
[2022-03-21] MEDS: metFORMIN HCl 500 MG Tablet PO ×2 (07:42→16:58)
[2022-03-21] MEDS: Sertraline 100 MG Tablet 150 MG PO (07:43)
[2022-03-21] MEDS: Omega-3 Acid Ethyl Esters 1 GM Capsule PO ×2 (07:43→20:35)
[2022-03-21] MEDS: Clopidogrel Bisulfate 75 MG Tablet PO (07:43)
[2022-03-21] MEDS: amLODIPine 10 MG Tablet PO (07:43)
[2022-03-21] MEDS: Lisinopril 40 MG Tablet PO (07:43)
[2022-03-21] MEDS: Nortriptyline 10 MG Capsule 30 MG PO (07:43)
[2022-03-21] MEDS: Senna/Docusate Sodium 1 Tablet 2 TABLET PO (07:43)
[2022-03-21] MEDS: Tamsulosin HCl 0.4 MG Capsule PO ×2 (07:43→20:38)
[2022-03-21 07:44] VITALS: PULSE 66
[2022-03-21] MEDS: Metoprolol Tartrate 100 MG Tablet 150 MG PO ×2 (07:44→20:36)
[2022-03-21] MEDS: Enoxaparin 40 MG/0.4 ML Syringe SC (07:44)
[2022-03-21] MEDS: Pregabalin 50 MG Capsule 100 MG PO ×2 (07:46→20:35)
[2022-03-21] MEDS: Modafinil 200 MG Tablet PO (07:47)
--- NOTE | 2022-03-21 08:54 | PN_ITS ---
Subjective Subjective Patient seen, examined. His blood sugars are improved. He notes at home he takes Humulin R U-500 80 units, 80 units, 90 units, and his CGM gave him average blood sugar of 204, A1c 8.2. His diet is different at home, because I am certain that high dose insulin would lead to hypoglycemia. Objective Data Objective Data Vital Signs: Vital Signs Temp Pulse Resp BP Pulse Ox O2 Del Method 96.9 F L 66 17 102/59 L 94 Room Air 03/21/22 07:31 03/21/22 07:44 03/21/22 07:31 03/21/22 07:31 03/21/22 07:31 03/21/22 07:31 Oxygen Delivery Method Room Air Weight: 90.7 kg Body Mass Index (BMI) 32.3 Intake & Output: Intake and Output for Last 24 Hours 03/19/22 03/20/22 03/21/22 23:59 23:59 23:59 Intake Total 200 / 200 Output Total 950 / 950 250 / 250 Balance -750 / -750 -250 / -250 Lab / Micro Data Labs: Laboratory Results - last 24 hr 03/20/22 11:00: POC Glucose 379 H 03/20/22 11:56: POC Glucose 404 H 03/20/22 16:29: POC Glucose 188 H 03/20/22 21:37: POC Glucose 212 H 03/21/22 01:55: POC Glucose 203 H 03/21/22 06:28: POC Glucose 175 H Physical Exam Const alert General Appearance: cooperative HEENT normocephalic Eyes PERRL and EOMs intact bilaterally Neck supple, no JVD and no carotid bruits Resp normal respiratory effort, normal air movement and clear to auscultation bilaterally Cardio regular rate and regular rhythm GI normal to inspection, nondistended, normoactive bowel sounds, non-tender and non-distended Extremity normal capillary refill General Extremity: Negative for edema Skin no rashes or lesions noted General Skin Exam: no breakdown Neuro Neuro Narrative: Left hemiparesis. Psych affect normal Appearance: appropriate Assessment & Plan Assessment/Plan (1) Debility: (2) Right pontine stroke: (3) DM2 (diabetes mellitus, type 2): QUALIFIERS: Diabetes mellitus complication status: without complication Diabetes mellitus long-term insulin use: with long-term use Qualified Code(s): E11.9 - Type 2 diabetes mellitus without complications; Z79.4 - care home (current) use of insulin (4) Essential (primary) hypertension: (5) Coronary artery disease: (6) Hyperlipidemia: (7) Obstructive sleep apnea: (8) Migraine headache: (9) Vitamin D deficiency: (10) Diabetic polyneuropathy: (11) Anxiety: (12) Depression: (13) Narcolepsy: PLAN: Plan 67 year old male with below past medical history hospitalized for acute right pontine stroke, complicated by decrease ejection fraction, admitted to for greater than 3 hours daily rehabilitation, strengthening, prior to discharge home with , family. * Debility - PT/OT/ST. * Pain - Tylenol 1000mg q6h prn pain (1-10). * Bowel - senna/colace 2 tablets bid, Dulcolax 10mg pr x 1 prn, MOM 30ml po x 1 prn. * DVT prophylaxis - Lovenox 40mg sc daily. * Hypertension - Metoprolol 150mg bid, Lisinopril 40mg daily, Amlodipine 10mg daily. * Acute right pontine stroke - Aspirin 81mg daily, Plavix 75mg daily thru 04/16/2022. * Hyperlipidemia - Atorvastatin 40mg qhs, [place]-3 1gm bid. * Anxiety - Buspar 10mg bid. * Calcium deficiency - Calcium 500mg bidcm. * Diabetes Mellitus II - Metformin 500mg bidcm, Glucagon 1mg im x1 prn, Lantus 30 units at bedtime, Humalog 10 units tid, Humalog sliding scale. * Narcolepsy - Provigil 200mg daily. * Migraine - Nortriptyline 30mg daily. * Nausea - Zofran 4mg q8h prn. * Depression - Sertraline 150mg daily. * BPH - Tamsulosin 0.4mg daily, straight cath to empty PVR > 300ml. * Vitamin D deficiency - D3 25mcg daily. * Abnormal Echo - Patient goes to [place], will discuss with him where he would like to go for cardiology follow up. Capacity Capacity Assessment Tool Can the patient make a choice & communicate that choice?: Yes Can the patient understand benefits, risks and alternatives?: Yes Can the patient make a logical, rational choice?: Yes Is the choice the patient makes consistent w/ their values?: Yes Is there an impending, emergent risk to the patient?: No Does the patient have an Advance Directive?: No Is there a Surrogate Available?: Yes i.e. HCPOA: Yes i.e. close relative (spouse, child, parent, sibling)?: Yes
[2022-03-21 11:15] LABS: Bedside Glucose 206 mg/dL (74-106)
[2022-03-21 11:19] VITALS: BMI 32.3
--- NOTE | 2022-03-21 11:33 | CASEMGMT ---
Patient requesting to complete advanced directives. SW to complete prior to pt DC. Taylor Lomeli, ENTRY LEVEL BUSINESS ANALYST BASE ENGINEER
--- NOTE | 2022-03-21 14:24 | CASEMGMT ---
Addendum entered by Taylor Lomeli 03/21/22 16:05: Spoke with pt to update on below conversation. Provided pt with application and listings of available and coming soon apartment choices from website. Pt would like to stay in the local area for 's job, but is open to relocating to [place] as could potentially transfer jobs. Completed HCPOA and LW documents with pt. Original and copy provided to pt. Copies placed on chart. Original Note: Social Work Met with patient for initial assessment. Educated to [facility] insurance with [employer] 03/25 and continued stay is not guaranteed. Explored housing situation per chart review. Pt explained he received a notice from his landlord stating pt is needing to move out of his rented duplex on or by April 15. Pt stated his and he have been trying to find housing, but have been unsuccessful so far. Pt stated the need for moving is because the storage solutions architect wants to remodel the duplex. Pt states the other side of the duplex has been started on renovations but not finished, but the storage solutions architect wants to start on pt's unit. SW offered to contact landlord/storage solutions architect to get further details and attempt to assist with housing placement. Pt agreed and will have bring in copy of notice with information. Pt stated the realtor is Jamil (?) through [employer] that owns the duplex. SW to inquire further. SW contacted [facility] and spoke with Jamil. Simtor confirmed the reason for displacement is due to remodeling and the notice was given February 22 to give the tenant extra time to find new housing. SW explained pt is having difficulty finding safe, affordable and available housing. Mary had no solution or suggestion to this. SW inquired if the storage solutions architect can finish remodeling the other side of the duplex, then pt move into that side, while storage solutions architect remodels pt's current unit and then pt can return. Mary was not clear on answering that question and said the storage solutions architect will work with the [pt] if housing is secured by April 15 and directed pt/SW to website to view available housing options through [employer]. SW viewed website during call and noted to mary that there is only one apartment currently available and 7 'coming soon'. Mary unable to provide specific timelines of when units will be available as contractors may have issues that stall the openings. Also, the realtor stated they must review all applications, then schedule a showing of the unit, and then make determination if pt is approved to rent. DONNA stated pt reports to have been a renter/tenant for the last 6 years, but he still needs to submit a new application, which has a fee by mail or person drop off in office in [place], and is not guaranteed housing through the same [employer] company? Mary replied their company just became owners in February and does not have pt's first application on file. Mary did confirm with this worker that the company cannot guarantee housing for the pt but would try to work with the tenant but needs to see tenant making progress, attempts in looking for housing. DONNA educated mary to current housing crisis for available and affordable housing, and if the company is the one displacing a tenant, for this realtor to assist pt in finding housing. Educated to mary this worker is assisting pt in searching for housing while pt remains in the hospital and unsure of discharge date. Mary still could not provide resolution or suggestion other than pt submitting new application for apartment preferences and the company to approve or deny for rental based on pts qualifications. SW to update pt with above information and will assist with application, if pt elects. DONNA thanked mary for information. DONNA to continue to follow. Taylor Lomeli, REJI PEREZ
--- NOTE | 2022-03-21 15:38 | NURSING ---
STRAIGHT CATHED PATIENT D/T URINARY RETENTION. BLADDER SCAN SHOWED 510CC. STRAIGHT CATH COMPLETED USING ASEPTIC TECHNIQUE. 450 CC CLEAR/YELLOW URINE OBTAINED. PT TOLERATED WELL. WILL CONTINUE VOIDING TRIALS.
[2022-03-21 16:20] LABS: Bedside Glucose 154 mg/dL (74-106)
[2022-03-21 19:07] VITALS: BP 113/68; PULSE 69; RESP 16; TEMP 36.7; O2SAT 97
[2022-03-21 20:36] VITALS: BP 113/68; PULSE 69
[2022-03-21] MEDS: Atorvastatin Calcium 40 MG Tablet PO (20:37)
[2022-03-21] MEDS: Insulin Glargine-YFGN 100 UNIT/ML Pen 30 UNIT SC (21:17)
[2022-03-21 21:40] LABS: Bedside Glucose 189 mg/dL (74-106)
[2022-03-22] MEDS: Insulin Lispro 100 UNIT/ML INSULN.PEN SC ×5 (02:31→22:11)
[2022-03-22 02:56] LABS: Bedside Glucose 244 mg/dL (74-106)
[2022-03-22 07:11] LABS: Bedside Glucose 190 mg/dL (74-106)
[2022-03-22] MEDS: Insulin Lispro 100 UNIT/ML INSULN.PEN 10 UNIT SC ×2 (07:42→12:13)
[2022-03-22 07:43] VITALS: PULSE 75
[2022-03-22] MEDS: Metoprolol Tartrate 100 MG Tablet 150 MG PO ×2 (07:43→22:20)
[2022-03-22] MEDS: Enoxaparin 40 MG/0.4 ML Syringe SC (07:43)
[2022-03-22] MEDS: Lisinopril 40 MG Tablet PO (07:45)
[2022-03-22] MEDS: Sertraline 100 MG Tablet 150 MG PO (07:45)
[2022-03-22] MEDS: metFORMIN HCl 500 MG Tablet PO ×2 (07:46→16:59)
[2022-03-22] MEDS: amLODIPine 10 MG Tablet PO (07:46)
[2022-03-22] MEDS: Omega-3 Acid Ethyl Esters 1 GM Capsule PO ×2 (07:46→22:09)
[2022-03-22] MEDS: Clopidogrel Bisulfate 75 MG Tablet PO (07:46)
[2022-03-22] MEDS: Cholecalciferol (VIT D3) 25 MCG TABLET (1,000 UNITS) PO ×2 (07:46→17:02)
[2022-03-22] MEDS: Nortriptyline 10 MG Capsule 30 MG PO (07:47)
[2022-03-22] MEDS: Aspirin 81 MG TAB.CHEW PO (07:47)
[2022-03-22] MEDS: Calcium (Elemental) 500 MG Tablet PO ×2 (07:48→17:02)
[2022-03-22] MEDS: busPIRone 5 MG Tablet 10 MG PO ×2 (07:48→22:10)
[2022-03-22 07:49] VITALS: BP 125/75; PULSE 64; RESP 16; TEMP 36.3; O2SAT 95
[2022-03-22] MEDS: Tamsulosin HCl 0.4 MG Capsule PO ×2 (10:55→22:09)
[2022-03-22] MEDS: Pregabalin 50 MG Capsule 100 MG PO ×2 (10:55→22:09)
[2022-03-22] MEDS: Modafinil 200 MG Tablet PO (10:56)
[2022-03-22 10:59] VITALS: BMI 32.3
[2022-03-22 11:21] LABS: Bedside Glucose 250 mg/dL (74-106)
--- NOTE | 2022-03-22 13:48 | PN_ITS ---
Subjective Subjective Patient seen. He is sleeping with CPAP. Objective Data Objective Data Vital Signs: Vital Signs Temp Pulse Resp BP Pulse Ox O2 Del Method 97.3 F L 64 16 125/75 H 95 Room Air 03/22/22 07:49 03/22/22 07:49 03/22/22 07:49 03/22/22 07:49 03/22/22 07:49 03/22/22 07:49 Oxygen Delivery Method Room Air Weight: 92.4 kg Body Mass Index (BMI) 32.3 Intake & Output: Intake and Output for Last 24 Hours 03/20/22 03/21/22 03/22/22 23:59 23:59 23:59 Intake Total 200 / 200 480 / 480 Output Total 950 / 950 250 / 250 575 / 575 Balance -750 / -750 -250 / -250 -95 / -95 Lab / Micro Data Labs: Laboratory Results - last 24 hr 03/21/22 16:00: POC Glucose 154 H 03/21/22 21:15: POC Glucose 189 H 03/22/22 02:30: POC Glucose 244 H 03/22/22 06:43: POC Glucose 190 H 03/22/22 11:01: POC Glucose 250 H Physical Exam Const alert General Appearance: cooperative HEENT normocephalic Eyes PERRL and EOMs intact bilaterally Neck supple, no JVD and no carotid bruits Resp normal respiratory effort, normal air movement and clear to auscultation bilaterally Cardio regular rate and regular rhythm GI normal to inspection, nondistended, normoactive bowel sounds, non-tender and non-distended Extremity normal capillary refill General Extremity: Negative for edema Skin no rashes or lesions noted General Skin Exam: no breakdown Neuro Neuro Narrative: Left hemiparesis. 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 Qualified Code(s): E11.9 - Type 2 diabetes mellitus without complications; Z79.4 - intermodal customer service (current) use of insulin (4) Essential (primary) hypertension: (5) Coronary artery disease: (6) Hyperlipidemia: (7) Obstructive sleep apnea: (8) Migraine headache: (9) Vitamin D deficiency: (10) Diabetic polyneuropathy: (11) Anxiety: (12) Depression: (13) Narcolepsy: PLAN: Plan 67 year old male with below past medical history hospitalized for acute right pontine stroke, complicated by decrease ejection fraction, admitted to for greater than 3 hours daily rehabilitation, strengthening, prior to discharge home with , family. * Debility - PT/OT/ST. * Pain - Tylenol 1000mg q6h prn pain (1-10). * Bowel - senna/colace 2 tablets bid, Dulcolax 10mg pr x 1 prn, MOM 30ml po x 1 prn. * DVT prophylaxis - Lovenox 40mg sc daily. * Hypertension - Metoprolol 150mg bid, Lisinopril 40mg daily, Amlodipine 10mg daily. * Acute right pontine stroke - Aspirin 81mg daily, Plavix 75mg daily thru 04/16/2022. * Hyperlipidemia - Atorvastatin 40mg qhs, [place]-3 1gm bid. * Anxiety - Buspar 10mg bid. * Calcium deficiency - Calcium 500mg bidcm. * Diabetes Mellitus II - Metformin 500mg bidcm, Glucagon 1mg im x1 prn, Increase Lantus 40 units at bedtime, Increase Humalog 13 units tid, Humalog sliding scale. * Narcolepsy - Provigil 200mg daily. * Migraine - Nortriptyline 30mg daily. * Nausea - Zofran 4mg q8h prn. * Depression - Sertraline 150mg daily. * BPH - Tamsulosin 0.4mg daily, straight cath to empty PVR > 300ml. * Vitamin D deficiency - D3 25mcg daily. * Abnormal Echo - Patient goes to [place], will discuss with him where he would like to go for cardiology follow up. Capacity Capacity Assessment Tool Can the patient make a choice & communicate that choice?: Yes Can the patient understand benefits, risks and alternatives?: Yes Can the patient make a logical, rational choice?: Yes Is the choice the patient makes consistent w/ their values?: Yes Is there an impending, emergent risk to the patient?: No Does the patient have an Advance Directive?: No Is there a Surrogate Available?: Yes i.e. HCPOA: Yes i.e. close relative (spouse, child, parent, sibling)?: Yes
[2022-03-22 16:40] LABS: Bedside Glucose 171 mg/dL (74-106)
[2022-03-22] MEDS: Insulin Lispro 100 UNIT/ML INSULN.PEN 13 UNIT SC (16:58)
[2022-03-22 19:05] VITALS: BP 112/56; PULSE 68; RESP 18; TEMP 36.5; O2SAT 93
[2022-03-22] MEDS: Atorvastatin Calcium 40 MG Tablet PO (22:09)
[2022-03-22] MEDS: Senna/Docusate Sodium 1 Tablet 2 TABLET PO (22:09)
[2022-03-22] MEDS: Insulin Glargine-YFGN 100 UNIT/ML Pen 40 UNIT SC (22:10)
[2022-03-22 22:19] VITALS: BP 139/76; PULSE 69
[2022-03-22 22:20] VITALS: BP 139/76; PULSE 69
[2022-03-22 22:45] LABS: Bedside Glucose 153 mg/dL (74-106)
[2022-03-23] MEDS: Insulin Lispro 100 UNIT/ML INSULN.PEN SC ×3 (02:45→21:32)
[2022-03-23 03:06] LABS: Bedside Glucose 165 mg/dL (74-106)
[2022-03-23 07:15] LABS: Bedside Glucose 166 mg/dL (74-106)
[2022-03-23] MEDS: Insulin Lispro 100 UNIT/ML INSULN.PEN 13 UNIT SC ×3 (07:43→16:46)
[2022-03-23 07:44] VITALS: BP 112/47; PULSE 61; RESP 16; TEMP 36.3; O2SAT 95
[2022-03-23] MEDS: Cholecalciferol (VIT D3) 25 MCG TABLET (1,000 UNITS) PO ×2 (07:44→16:46)
[2022-03-23] MEDS: Calcium (Elemental) 500 MG Tablet PO ×2 (07:44→16:46)
[2022-03-23] MEDS: Aspirin 81 MG TAB.CHEW PO (07:44)
[2022-03-23] MEDS: metFORMIN HCl 500 MG Tablet PO ×2 (07:44→16:46)
[2022-03-23] MEDS: Nortriptyline 10 MG Capsule 30 MG PO (09:02)
[2022-03-23] MEDS: Omega-3 Acid Ethyl Esters 1 GM Capsule PO ×2 (09:03→20:36)
[2022-03-23] MEDS: Sertraline 100 MG Tablet 150 MG PO (09:03)
[2022-03-23] MEDS: Tamsulosin HCl 0.4 MG Capsule PO ×2 (09:03→20:36)
[2022-03-23] MEDS: busPIRone 5 MG Tablet 10 MG PO ×2 (09:03→20:36)
[2022-03-23] MEDS: Clopidogrel Bisulfate 75 MG Tablet PO (09:03)
[2022-03-23] MEDS: Senna/Docusate Sodium 1 Tablet 2 TABLET PO ×2 (09:03→20:36)
[2022-03-23] MEDS: Enoxaparin 40 MG/0.4 ML Syringe SC (09:05)
[2022-03-23] MEDS: Modafinil 200 MG Tablet PO (09:08)
[2022-03-23] MEDS: Pregabalin 50 MG Capsule 100 MG PO ×2 (09:08→20:37)
[2022-03-23] MEDS: amLODIPine 10 MG Tablet PO (09:09)
[2022-03-23] MEDS: Lisinopril 40 MG Tablet PO (09:09)
[2022-03-23 09:10] VITALS: BP 116/74; PULSE 65
[2022-03-23] MEDS: Metoprolol Tartrate 100 MG Tablet 150 MG PO ×2 (09:10→20:35)
[2022-03-23 09:56] VITALS: PULSE 65; O2SAT 95
[2022-03-23 10:01] VITALS: BMI 32.3
[2022-03-23 12:10] LABS: Bedside Glucose 138 mg/dL (74-106)
[2022-03-23 16:20] LABS: Bedside Glucose 128 mg/dL (74-106)
[2022-03-23 20:15] VITALS: O2SAT 95
[2022-03-23 20:35] VITALS: BP 123/70; PULSE 68
[2022-03-23] MEDS: Atorvastatin Calcium 40 MG Tablet PO (20:36)
[2022-03-23 20:39] VITALS: BP 123/70; PULSE 68; RESP 18; TEMP 36.3; O2SAT 96
[2022-03-23] MEDS: Insulin Glargine-YFGN 100 UNIT/ML Pen 40 UNIT SC (21:32)
[2022-03-23 22:05] LABS: Bedside Glucose 162 mg/dL (74-106)
[2022-03-24] MEDS: Insulin Lispro 100 UNIT/ML INSULN.PEN SC ×4 (02:13→21:35)
[2022-03-24 02:36] LABS: Bedside Glucose 191 mg/dL (74-106)
[2022-03-24 07:20] LABS: Bedside Glucose 143 mg/dL (74-106)
[2022-03-24 08:04] VITALS: BMI 32.3
[2022-03-24 08:14] VITALS: BP 104/69; PULSE 65; RESP 18; TEMP 36.6; O2SAT 96
[2022-03-24] MEDS: Insulin Lispro 100 UNIT/ML INSULN.PEN 13 UNIT SC ×3 (08:39→17:02)
[2022-03-24] MEDS: Cholecalciferol (VIT D3) 25 MCG TABLET (1,000 UNITS) PO ×2 (08:40→17:02)
[2022-03-24] MEDS: metFORMIN HCl 500 MG Tablet PO ×2 (08:40→17:02)
[2022-03-24] MEDS: Aspirin 81 MG TAB.CHEW PO (08:40)
[2022-03-24] MEDS: Calcium (Elemental) 500 MG Tablet PO ×2 (08:40→17:02)
[2022-03-24] MEDS: Omega-3 Acid Ethyl Esters 1 GM Capsule PO ×2 (08:41→20:30)
[2022-03-24] MEDS: busPIRone 5 MG Tablet 10 MG PO ×2 (08:41→20:29)
[2022-03-24] MEDS: Tamsulosin HCl 0.4 MG Capsule PO ×2 (08:41→20:30)
[2022-03-24] MEDS: amLODIPine 10 MG Tablet PO (08:42)
[2022-03-24] MEDS: Enoxaparin 40 MG/0.4 ML Syringe SC (08:42)
[2022-03-24] MEDS: Lisinopril 40 MG Tablet PO (08:43)
[2022-03-24] MEDS: Clopidogrel Bisulfate 75 MG Tablet PO (08:43)
[2022-03-24] MEDS: Senna/Docusate Sodium 1 Tablet 2 TABLET PO ×2 (08:43→20:30)
[2022-03-24] MEDS: Sertraline 100 MG Tablet 150 MG PO (08:43)
[2022-03-24] MEDS: Nortriptyline 10 MG Capsule 30 MG PO (08:43)
[2022-03-24 08:50] VITALS: BP 112/61; PULSE 63
[2022-03-24] MEDS: Metoprolol Tartrate 100 MG Tablet 150 MG PO ×2 (08:50→20:30)
[2022-03-24] MEDS: Pregabalin 50 MG Capsule 100 MG PO ×2 (08:51→20:39)
[2022-03-24] MEDS: Modafinil 200 MG Tablet PO (08:51)
[2022-03-24 12:21] LABS: Bedside Glucose 156 mg/dL (74-106)
[2022-03-24] MEDS: Magnesium Hydroxide 30 ML UDC PO (16:08)
[2022-03-24 16:30] LABS: Bedside Glucose 169 mg/dL (74-106)
[2022-03-24 20:30] VITALS: BP 144/75; PULSE 77
[2022-03-24] MEDS: Atorvastatin Calcium 40 MG Tablet PO (20:30)
[2022-03-24 20:45] VITALS: O2SAT 95
[2022-03-24 20:48] VITALS: BP 144/75; PULSE 77; RESP 19; TEMP 36.3; O2SAT 95
[2022-03-24] MEDS: Insulin Glargine-YFGN 100 UNIT/ML Pen 40 UNIT SC (21:35)
[2022-03-24 22:06] LABS: Bedside Glucose 214 mg/dL (74-106)
[2022-03-25] MEDS: Insulin Lispro 100 UNIT/ML INSULN.PEN SC ×5 (02:18→21:33)
[2022-03-25 02:41] LABS: Bedside Glucose 249 mg/dL (74-106)
[2022-03-25] MEDS: Bisacodyl 10 MG Suppository RC (05:52)
[2022-03-25 07:22] VITALS: BP 136/82; PULSE 74; RESP 16; TEMP 36.2; O2SAT 94
[2022-03-25 07:31] LABS: Bedside Glucose 292 mg/dL (74-106)
[2022-03-25] MEDS: Modafinil 200 MG Tablet PO (07:46)
[2022-03-25] MEDS: busPIRone 5 MG Tablet 10 MG PO ×2 (07:46→21:12)
[2022-03-25] MEDS: Omega-3 Acid Ethyl Esters 1 GM Capsule PO ×2 (07:46→21:13)
[2022-03-25] MEDS: amLODIPine 10 MG Tablet PO (07:46)
[2022-03-25] MEDS: Sertraline 100 MG Tablet 150 MG PO (07:46)
[2022-03-25] MEDS: Lisinopril 40 MG Tablet PO (07:46)
[2022-03-25] MEDS: Calcium (Elemental) 500 MG Tablet PO ×2 (07:46→17:04)
[2022-03-25 07:47] VITALS: BP 136/82; PULSE 74
[2022-03-25] MEDS: Enoxaparin 40 MG/0.4 ML Syringe SC (07:47)
[2022-03-25] MEDS: Metoprolol Tartrate 100 MG Tablet 150 MG PO ×2 (07:47→21:13)
[2022-03-25] MEDS: Nortriptyline 10 MG Capsule 30 MG PO (07:47)
[2022-03-25] MEDS: metFORMIN HCl 500 MG Tablet PO ×2 (07:47→17:04)
[2022-03-25] MEDS: Aspirin 81 MG TAB.CHEW PO (07:47)
[2022-03-25] MEDS: Cholecalciferol (VIT D3) 25 MCG TABLET (1,000 UNITS) PO ×2 (07:47→17:04)
[2022-03-25] MEDS: Tamsulosin HCl 0.4 MG Capsule PO ×2 (07:47→21:13)
[2022-03-25] MEDS: Insulin Lispro 100 UNIT/ML INSULN.PEN 13 UNIT SC ×3 (07:48→17:04)
[2022-03-25] MEDS: Pregabalin 50 MG Capsule 100 MG PO ×2 (07:51→21:11)
--- NOTE | 2022-03-25 08:18 | CASEMGMT ---
Social Work IDT met with patient for Team meeting. not present. SW offered to call but pt stated worked late last night and declined the phone call. Discussed patient's progress in PT/OT/ST/SN. Educated to [facility] with [employer] 03/25 and continued stay is not guaranteed. Pts goal is to return home at [place] however, pt has a notice to move out of current home by 04/15/22. Currently, pt/family has not secured another house. SW to continue to assist as able. [facility] to inquire about list of available apartments. SW provided suggestions for pt to contact [facility], [facility] apartments for possible availability. Pt appreciative and voiced no other concerns. Will ReTeam next week. SW to continue to follow. REJI Guthrie [employer]
[2022-03-25] MEDS: Clopidogrel Bisulfate 75 MG Tablet PO (08:44)
[2022-03-25 11:21] LABS: Bedside Glucose 268 mg/dL (74-106)
--- NOTE | 2022-03-25 12:30 | PN_ITS ---
Subjective Subjective Patient seen, examined during IDT rounds. His blood sugars higher today due to [employer] for dinner last night. He has no new complaints, he is progressing in therapy. Objective Data Objective Data Vital Signs: Vital Signs Temp Pulse Resp BP Pulse Ox O2 Del Method 97.1 F L 74 16 136/82 H 94 Room Air 03/25/22 07:22 03/25/22 07:47 03/25/22 07:22 03/25/22 07:47 03/25/22 07:22 03/25/22 07:22 Oxygen Delivery Method Room Air Weight: 92.4 kg Body Mass Index (BMI) 32.3 Intake & Output: Intake and Output for Last 24 Hours 03/23/22 03/24/22 03/25/22 23:59 23:59 23:59 Intake Total 480 / 480 200 / 200 Output Total 900 / 900 Balance -420 / -420 200 / 200 Lab / Micro Data Labs: Laboratory Results - last 24 hr 03/24/22 16:13: POC Glucose 169 H 03/24/22 21:33: POC Glucose 214 H 03/25/22 02:12: POC Glucose 249 H 03/25/22 07:08: POC Glucose 292 H 03/25/22 11:00: POC Glucose 268 H Physical Exam Const alert General Appearance: cooperative HEENT normocephalic Eyes PERRL and EOMs intact bilaterally Neck supple, no JVD and no carotid bruits Resp normal respiratory effort, normal air movement and clear to auscultation bilaterally Cardio regular rate and regular rhythm GI normal to inspection, nondistended, normoactive bowel sounds, non-tender and non-distended Extremity normal capillary refill General Extremity: Negative for edema Skin no rashes or lesions noted General Skin Exam: no breakdown Neuro Neuro Narrative: Left hemiparesis. Psych affect normal Appearance: appropriate Assessment & Plan Assessment/Plan (1) Debility: (2) Right pontine stroke: (3) DM2 (diabetes mellitus, type 2): QUALIFIERS: Diabetes mellitus complication status: without complication Diabetes mellitus medical terminologist insulin use: with medical terminologist use Qualified Code(s): E11.9 - Type 2 diabetes mellitus without complications; Z79.4 - [facility] (current) use of insulin (4) Essential (primary) hypertension: (5) Coronary artery disease: (6) Hyperlipidemia: (7) Obstructive sleep apnea: (8) Migraine headache: (9) Vitamin D deficiency: (10) Diabetic polyneuropathy: (11) Anxiety: (12) Depression: (13) Narcolepsy: PLAN: Plan 67 year old male with below past medical history hospitalized for acute right pontine stroke, complicated by decrease ejection fraction, admitted to for greater than 3 hours daily rehabilitation, strengthening, prior to discharge home with , family. * Debility - PT/OT/ST. * Pain - Tylenol 1000mg q6h prn pain (1-10). * Bowel - senna/colace 2 tablets bid, Dulcolax 10mg pr x 1 prn, MOM 30ml po x 1 prn. * DVT prophylaxis - Lovenox 40mg sc daily. * Hypertension - Metoprolol 150mg bid, Lisinopril 40mg daily, Amlodipine 10mg daily. * Acute right pontine stroke - Aspirin 81mg daily, Plavix 75mg daily thru 04/16/2022. * Hyperlipidemia - Atorvastatin 40mg qhs, [place]-3 1gm bid. * Anxiety - Buspar 10mg bid. * Calcium deficiency - Calcium 500mg bidcm. * Diabetes Mellitus II - Metformin 500mg bidcm, Glucagon 1mg im x1 prn, Increase Lantus 40 units at bedtime, Increase Humalog 13 units tid, Humalog sliding scale. * Narcolepsy - Provigil 200mg daily. * Migraine - Nortriptyline 30mg daily. * Nausea - Zofran 4mg q8h prn. * Depression - Sertraline 150mg daily. * BPH - Tamsulosin 0.4mg daily, straight cath to empty PVR > 300ml. * Vitamin D deficiency - D3 25mcg daily. * Abnormal Echo - Patient goes to [place], will discuss with him where he would like to go for cardiology follow up. Capacity Capacity Assessment Tool Can the patient make a choice & communicate that choice?: Yes Can the patient understand benefits, risks and alternatives?: Yes Can the patient make a logical, rational choice?: Yes Is the choice the patient makes consistent w/ their values?: Yes Is there an impending, emergent risk to the patient?: No Does the patient have an Advance Directive?: No Is there a Surrogate Available?: Yes i.e. HCPOA: Yes i.e. close relative (spouse, child, parent, sibling)?: Yes
[2022-03-25 12:52] VITALS: BMI 32.3
--- NOTE | 2022-03-25 16:14 | NURSING ---
pt voided 100ml, bladder scanned for 326ml. pt request to wait until after dinner to tried and void again and to be rescanned before being st cathed. denies pressure or discomfort.
[2022-03-25 16:26] LABS: Bedside Glucose 239 mg/dL (74-106)
[2022-03-25 19:13] VITALS: BP 136/63; PULSE 73; RESP 18; TEMP 36.6; O2SAT 96
[2022-03-25] MEDS: Atorvastatin Calcium 40 MG Tablet PO (21:12)
[2022-03-25 21:13] VITALS: BP 136/63; PULSE 73
[2022-03-25] MEDS: Senna/Docusate Sodium 1 Tablet 2 TABLET PO (21:15)
[2022-03-25] MEDS: Insulin Glargine-YFGN 100 UNIT/ML Pen 40 UNIT SC (21:33)
[2022-03-25 21:50] LABS: Bedside Glucose 254 mg/dL (74-106)
[2022-03-26] MEDS: Insulin Lispro 100 UNIT/ML INSULN.PEN SC ×5 (02:27→20:28)
[2022-03-26 02:51] LABS: Bedside Glucose 206 mg/dL (74-106)
--- NOTE | 2022-03-26 03:17 | NURSING ---
Reviewed and agree with Mando Jimenez LPN documentation and assessment charting.
[2022-03-26] MEDS: Enoxaparin 40 MG/0.4 ML Syringe SC (05:09)
[2022-03-26 07:00] LABS: Bedside Glucose 165 mg/dL (74-106)
[2022-03-26] MEDS: Nortriptyline 10 MG Capsule 30 MG PO (07:27)
[2022-03-26] MEDS: Tamsulosin HCl 0.4 MG Capsule PO ×2 (07:27→20:19)
[2022-03-26] MEDS: Sertraline 100 MG Tablet 150 MG PO (07:27)
[2022-03-26] MEDS: Lisinopril 40 MG Tablet PO (07:27)
[2022-03-26] MEDS: Pregabalin 50 MG Capsule 100 MG PO ×2 (07:27→20:22)
[2022-03-26 07:28] VITALS: BP 125/62; PULSE 71
[2022-03-26] MEDS: Metoprolol Tartrate 100 MG Tablet 150 MG PO ×2 (07:28→20:19)
[2022-03-26] MEDS: Clopidogrel Bisulfate 75 MG Tablet PO (07:28)
[2022-03-26] MEDS: metFORMIN HCl 500 MG Tablet PO ×2 (07:28→17:23)
[2022-03-26] MEDS: Omega-3 Acid Ethyl Esters 1 GM Capsule PO ×2 (07:28→20:19)
[2022-03-26] MEDS: amLODIPine 10 MG Tablet PO (07:28)
[2022-03-26] MEDS: busPIRone 5 MG Tablet 10 MG PO ×2 (07:28→20:21)
[2022-03-26] MEDS: Calcium (Elemental) 500 MG Tablet PO ×2 (07:28→17:24)
[2022-03-26] MEDS: Aspirin 81 MG TAB.CHEW PO (07:28)
[2022-03-26] MEDS: Senna/Docusate Sodium 1 Tablet 2 TABLET PO ×2 (07:28→20:19)
[2022-03-26] MEDS: Cholecalciferol (VIT D3) 25 MCG TABLET (1,000 UNITS) PO ×2 (07:28→17:24)
[2022-03-26] MEDS: Insulin Lispro 100 UNIT/ML INSULN.PEN 13 UNIT SC ×3 (07:29→17:21)
[2022-03-26 08:27] VITALS: BP 125/62; PULSE 71; RESP 14; TEMP 36.7; O2SAT 93
--- NOTE | 2022-03-26 08:45 | PN_ITS ---
Subjective Subjective Patient seen, examined. We discussed his EF drop from 60% to 45% over 4 years. Patient used to have a cutter barrel drum at [facility], but reportedly is no longer there. Patient lives in [place], and would benefit from having a local cutter barrel drum. Schedule appt with Dr. Artis with [facility] for outpatient follow up. Objective Data Objective Data Vital Signs: Vital Signs Temp Pulse Resp BP Pulse Ox O2 Del Method 98.0 F 71 14 125/62 H 93 Room Air 03/26/22 08:27 03/26/22 08:27 03/26/22 08:27 03/26/22 08:27 03/26/22 08:27 03/26/22 08:27 Oxygen Delivery Method Room Air Weight: 92.4 kg Body Mass Index (BMI) 32.3 Intake & Output: Intake and Output for Last 24 Hours 03/24/22 03/25/22 03/26/22 23:59 23:59 23:59 Intake Total 1060 / 1060 Output Total 600 / 600 600 / 600 Balance 460 / 460 -600 / -600 Lab / Micro Data Labs: Laboratory Results - last 24 hr 03/25/22 11:00: POC Glucose 268 H 03/25/22 16:00: POC Glucose 239 H 03/25/22 21:08: POC Glucose 254 H 03/26/22 02:23: POC Glucose 206 H 03/26/22 06:42: POC Glucose 165 H Physical Exam Const alert General Appearance: cooperative HEENT normocephalic Eyes PERRL and EOMs intact bilaterally Neck supple, no JVD and no carotid bruits Resp normal respiratory effort, normal air movement and clear to auscultation bilaterally Cardio regular rate and regular rhythm GI normal to inspection, nondistended, normoactive bowel sounds, non-tender and non-distended Extremity normal capillary refill General Extremity: Negative for edema Skin no rashes or lesions noted General Skin Exam: no breakdown Neuro Neuro Narrative: Left hemiparesis. 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 * Debility - PT/OT/ST. * Pain - Tylenol 1000mg q6h prn pain (1-10). * Bowel - senna/colace 2 tablets bid, Dulcolax 10mg pr x 1 prn, MOM 30ml po x 1 prn. * DVT prophylaxis - Lovenox 40mg sc daily. * Hypertension - Metoprolol 150mg bid, Lisinopril 40mg daily, Amlodipine 10mg daily. * Acute right pontine stroke - Aspirin 81mg daily, Plavix 75mg daily thru 04/16/2022. * Hyperlipidemia - Atorvastatin 40mg qhs, [place]-3 1gm bid. * Anxiety - Buspar 10mg bid. * Calcium deficiency - Calcium 500mg bidcm. * Diabetes Mellitus II - Metformin 500mg bidcm, Glucagon 1mg im x1 prn, Increase Lantus 40 units at bedtime, Increase Humalog 13 units tid, Humalog sliding scale. * Narcolepsy - Provigil 200mg daily. * Migraine - Nortriptyline 30mg daily. * Nausea - Zofran 4mg q8h prn. * Depression - Sertraline 150mg daily. * BPH - Tamsulosin 0.4mg daily, straight cath to empty PVR > 300ml. * Vitamin D deficiency - D3 25mcg daily. * Abnormal Echo - EF 60% to 45% over 4 years, schedule [facility] appointment for outpatient followup. Capacity Capacity Assessment Tool Can the patient make a choice & communicate that choice?: Yes Can the patient understand benefits, risks and alternatives?: Yes Can the patient make a logical, rational choice?: Yes Is the choice the patient makes consistent w/ their values?: Yes Is there an impending, emergent risk to the patient?: No Does the patient have an Advance Directive?: No Is there a Surrogate Available?: Yes i.e. HCPOA: Yes i.e. close relative (spouse, child, parent, sibling)?: Yes
[2022-03-26 12:05] LABS: Bedside Glucose 170 mg/dL (74-106)
[2022-03-26] MEDS: Modafinil 200 MG Tablet PO (12:18)
--- NOTE | 2022-03-26 14:04 | CASEMGMT ---
Social Work Updated pt on insurance approval with [employer] 04/02. Inquired about housing search. Pt stated his and son are actively searching for rentals but are unsuccessful so far. Encouraged to keep records of search and denials to show landlord on progress. Pt agrees. Offered continued assistance as able. Taylor Lomeli, SEARCH ENGINE MARKETING SPECIALIST [employer]
[2022-03-26 14:31] VITALS: BMI 32.3
[2022-03-26 17:10] LABS: Bedside Glucose 164 mg/dL (74-106)
[2022-03-26 19:30] VITALS: BP 136/72; PULSE 72; RESP 17; TEMP 36.7; O2SAT 94; O2SAT 97; BMI 32.3
[2022-03-26 20:19] VITALS: BP 136/72; PULSE 72
[2022-03-26] MEDS: Atorvastatin Calcium 40 MG Tablet PO (20:22)
[2022-03-26] MEDS: Insulin Glargine-YFGN 100 UNIT/ML Pen 40 UNIT SC (20:29)
[2022-03-26 22:25] LABS: Bedside Glucose 155 mg/dL (74-106)
[2022-03-27] VITALS (7 sets, daily range): BP systolic 130–140; BP diastolic 71–78; PULSE 77–150; RESP 16–18; TEMP 36.2–36.8; O2SAT 94–98; BMI 32.3
--- NOTE | 2022-03-27 01:39 | NURSING ---
Reviewed and agree with Kelly Mckinney LPN, documentation and assessment charting.
[2022-03-27 02:16] LABS: Bedside Glucose 128 mg/dL (74-106)
[2022-03-27] MEDS: Enoxaparin 40 MG/0.4 ML Syringe SC (05:02)
[2022-03-27 06:40] LABS: Bedside Glucose 95 mg/dL (74-106)
[2022-03-27] MEDS: Insulin Lispro 100 UNIT/ML INSULN.PEN 13 UNIT SC ×3 (08:10→17:30)
[2022-03-27] MEDS: Aspirin 81 MG TAB.CHEW PO (08:17)
[2022-03-27] MEDS: metFORMIN HCl 500 MG Tablet PO ×2 (08:17→17:31)
[2022-03-27] MEDS: Sertraline 100 MG Tablet 150 MG PO (08:17)
[2022-03-27] MEDS: Calcium (Elemental) 500 MG Tablet PO ×2 (08:17→17:31)
[2022-03-27] MEDS: Metoprolol Tartrate 100 MG Tablet 150 MG PO ×2 (08:18→20:02)
[2022-03-27] MEDS: busPIRone 5 MG Tablet 10 MG PO ×2 (08:18→20:02)
[2022-03-27] MEDS: Omega-3 Acid Ethyl Esters 1 GM Capsule PO ×2 (08:18→20:02)
[2022-03-27] MEDS: Lisinopril 40 MG Tablet PO (08:18)
[2022-03-27] MEDS: Nortriptyline 10 MG Capsule 30 MG PO (08:19)
[2022-03-27] MEDS: Senna/Docusate Sodium 1 Tablet 2 TABLET PO ×2 (08:20→20:01)
[2022-03-27] MEDS: Clopidogrel Bisulfate 75 MG Tablet PO (08:21)
[2022-03-27] MEDS: Tamsulosin HCl 0.4 MG Capsule PO ×2 (08:21→20:03)
[2022-03-27] MEDS: amLODIPine 10 MG Tablet PO (08:21)
[2022-03-27] MEDS: Cholecalciferol (VIT D3) 25 MCG TABLET (1,000 UNITS) PO ×2 (08:22→17:31)
[2022-03-27] MEDS: Pregabalin 50 MG Capsule 100 MG PO ×2 (08:25→20:04)
[2022-03-27] MEDS: Modafinil 200 MG Tablet PO (08:26)
--- NOTE | 2022-03-27 09:15 | RAD_ITS ---
STUDY: X-RAY CHEST REASON FOR EXAM: Male, 67 years old. Bibasilar crackles. TECHNIQUE: PA and lateral views of the chest. COMPARISON: Comparison is made with prior study dated 03/16/2022. FINDINGS: Since prior study, there is an increase in the interstitial markings with areas of complex more prominent at the lung bases. This may represent either CHF versus bibasilar atelectasis. Follow-up is recommended. There is no demonstrated pleural abnormality. Normal size heart. Normal mediastinum and orin. Normal visualized pulmonary arteries. There is atherosclerotic calcification of the aortic arch with tortuosity. Normal visualized thoracic spine. Normal visualized ribs, clavicles, and shoulders. Surgical clips are seen in the right upper quadrant. RAD/Chest PA and Lateral IMPRESSION: Progressive increased linear markings at the lung bases as compared to prior study. Electronically Signed: Adi Burroughs MD at 14:49 EDT ,
[2022-03-27] MEDS: Potassium Chloride Oral Tablet 20 MEQ PO (10:09)
[2022-03-27] MEDS: Furosemide 40 MG Tablet PO (10:09)
--- NOTE | 2022-03-27 10:40 | PN_ITS ---
Subjective Subjective Patient seen, examined. Overnight, patient had crackles on exam, shortness of breath, bilateral lower extremity swelling. He notes swelling in feet is new. Objective Data Objective Data Vital Signs: Vital Signs Temp Pulse Resp BP Pulse Ox O2 Del Method 97.1 F L 150 H 16 130/71 H 94 Room Air 03/27/22 07:47 03/27/22 08:18 03/27/22 07:47 03/27/22 07:47 03/27/22 07:47 03/27/22 07:47 Oxygen Delivery Method Room Air Weight: 92.4 kg Body Mass Index (BMI) 32.3 Intake & Output: Intake and Output for Last 24 Hours 03/25/22 03/26/22 03/27/22 23:59 23:59 23:59 Intake Total 1060 / 1060 Output Total 600 / 600 600 / 600 Balance 460 / 460 -600 / -600 Lab / Micro Data Labs: Laboratory Results - last 24 hr 03/26/22 11:48: POC Glucose 170 H 03/26/22 16:31: POC Glucose 164 H 03/26/22 20:27: POC Glucose 155 H 03/27/22 01:58: POC Glucose 128 H 03/27/22 06:22: POC Glucose 95 Physical Exam Const alert General Appearance: cooperative HEENT normocephalic Eyes PERRL and EOMs intact bilaterally Neck supple, no JVD and no carotid bruits Resp normal air movement Auscultation: rales bilateral Cardio regular rate and regular rhythm GI normal to inspection, nondistended, normoactive bowel sounds, non-tender and non-distended Extremity normal capillary refill Extremity Narrative: Bilateral lower extremity edema. General Extremity: Negative for edema Skin no rashes or lesions noted General Skin Exam: no breakdown Neuro Neuro Narrative: Left hemiparesis. Psych affect normal Appearance: appropriate Assessment & Plan Assessment/Plan (1) Debility: (2) Right pontine stroke: (3) DM2 (diabetes mellitus, type 2): QUALIFIERS: Diabetes mellitus complication status: without complication Diabetes mellitus detention insulin use: with detention use Qualified Code(s): E11.9 - Type 2 diabetes mellitus without complications; Z79.4 - [facility] (current) use of insulin (4) Essential (primary) hypertension: (5) Coronary artery disease: (6) Hyperlipidemia: (7) Obstructive sleep apnea: (8) Migraine headache: (9) Vitamin D deficiency: (10) Diabetic polyneuropathy: (11) Anxiety: (12) Depression: (13) Narcolepsy: PLAN: Plan 67 year old male with below past medical history hospitalized for acute right pontine stroke, complicated by decrease ejection fraction, admitted to for greater than 3 hours daily rehabilitation, strengthening, prior to discharge home with , family. * Debility - PT/OT/ST. * Pain - Tylenol 1000mg q6h prn pain (1-10). * Bowel - senna/colace 2 tablets bid, Dulcolax 10mg pr x 1 prn, MOM 30ml po x 1 prn. * DVT prophylaxis - Lovenox 40mg sc daily. * Hypertension - Metoprolol 150mg bid, Lisinopril 40mg daily, Amlodipine 10mg daily. * Acute right pontine stroke - Aspirin 81mg daily, Plavix 75mg daily thru 04/16/2022. * Hyperlipidemia - Atorvastatin 40mg qhs, [place]-3 1gm bid. * Anxiety - Buspar 10mg bid. * Calcium deficiency - Calcium 500mg bidcm. * Diabetes Mellitus II - Metformin 500mg bidcm, Glucagon 1mg im x1 prn, Increase Lantus 40 units at bedtime, Increase Humalog 13 units tid, Humalog sliding scale. * Narcolepsy - Provigil 200mg daily. * Migraine - Nortriptyline 30mg daily. * Nausea - Zofran 4mg q8h prn. * Depression - Sertraline 150mg daily. * BPH - Tamsulosin 0.4mg daily, straight cath to empty PVR > 300ml. * Vitamin D deficiency - D3 25mcg daily. * Abnormal Echo - EF 60% to 45% over 4 years, schedule [facility] appointment for outpatient followup. * Fluid overload - Chest X-ray appears fluid overload by my read, wait for radiology interpretation, Rx Furosemide 40mg daily x 5 days, Rx Potassium chloride 20meq daily x 5 days. Capacity Capacity Assessment Tool Can the patient make a choice & communicate that choice?: Yes Can the patient understand benefits, risks and alternatives?: Yes Can the patient make a logical, rational choice?: Yes Is the choice the patient makes consistent w/ their values?: Yes Is there an impending, emergent risk to the patient?: No Does the patient have an Advance Directive?: No Is there a Surrogate Available?: Yes i.e. HCPOA: Yes i.e. close relative (spouse, child, parent, sibling)?: Yes
[2022-03-27 11:55] LABS: Bedside Glucose 111 mg/dL (74-106)
[2022-03-27 16:30] LABS: Bedside Glucose 109 mg/dL (74-106)
[2022-03-27] MEDS: Atorvastatin Calcium 40 MG Tablet PO (20:02)
[2022-03-27] MEDS: Insulin Glargine-YFGN 100 UNIT/ML Pen 40 UNIT SC (20:22)
[2022-03-27 23:31] LABS: Bedside Glucose 139 mg/dL (74-106)
[2022-03-28 02:45] LABS: Bedside Glucose 71 mg/dL (74-106)
--- NOTE | 2022-03-28 03:30 | NURSING ---
Reviewed and agree with Kelly SWANSON, documentation and assessment charting.
[2022-03-28] MEDS: Enoxaparin 40 MG/0.4 ML Syringe SC (05:20)
--- NOTE | 2022-03-28 05:49 | NURSING ---
pt noted to have some wheezes this am when siting up on the side of the bed along with some mild sob. this lessened the longer the pt sat up. rn to listen to lungs sounds and faint crackles were heard in the rt post field.
[2022-03-28 07:10] LABS: Bedside Glucose 82 mg/dL (74-106)
[2022-03-28 07:27] VITALS: BP 129/68; PULSE 70; RESP 16; TEMP 36.7; O2SAT 96
[2022-03-28] MEDS: Nortriptyline 10 MG Capsule 30 MG PO (07:57)
[2022-03-28] MEDS: busPIRone 5 MG Tablet 10 MG PO ×2 (07:57→21:07)
[2022-03-28] MEDS: Clopidogrel Bisulfate 75 MG Tablet PO (07:58)
[2022-03-28] MEDS: Omega-3 Acid Ethyl Esters 1 GM Capsule PO ×2 (07:58→21:05)
[2022-03-28] MEDS: Aspirin 81 MG TAB.CHEW PO (07:58)
[2022-03-28] MEDS: Cholecalciferol (VIT D3) 25 MCG TABLET (1,000 UNITS) PO ×2 (07:59→16:57)
[2022-03-28] MEDS: metFORMIN HCl 500 MG Tablet PO ×2 (07:59→16:57)
--- NOTE | 2022-03-28 09:03 | SP.MBSS_ITS ---
Modified Barium Swallow - Patient Information Study Date: 03/28/22 Study Time: 08:30 Direct Billable Minutes: 70 Total Minutes procedure & reportin Diagnosis: Right pontine stroke (I63.50) Referring Physician: Asad Lester Chi Reason for Referral: Objectively assess swallow function, risk for aspiration, and determine recommendations for least restrictive diet textures and compensatory strategies to improve safety of swallow. Medical History: Clay Rodrigues is a 67-year-old male who presented to [facility] ED 03/16/2022 who presented to ED after waking with leg weakness and the inability to walk. He suffered a fall with no head injury prior to admission. Associated with leg weakness was slurred speech. Brain MRI showed acute right pina infarct. He was managed on acute care for CVA with PT and OT services ordered. 03/19/2022 he was transferred to inpatient RU for >3 hours daily rehabilitation, strengthening, prior to discharge home with . Pt was referred for ST consult and underwent cognitive-linguistic evaluation, BSE, and assessment of speech production. He was recommended for Easy to Chew textures / Thin liquids. Cognitive-linguistic function grossly WNL. ST POC initiated to target dysarthria. During stay on inpatient rehab, he presented with new shortness of breath and crackles. He was recommended for MBSS to rule out risk for silent aspiration. PMHX: Anxiety, Chest pain, Chronic pain, Coronary artery disease, CPAP (continuous positive airway pressure) dependence, Depression, Diabetes, Elevated lipase, Former smoker, GERD (gastroesophageal reflux disease), GI bleed, Hearing loss, left, Hearing loss, right, Hernia, History of COVID-19, Hypertension, Hypothyroidism, Migraines, Myocardial infarct, Osteoporosis, Sleep apnea, Vision loss of right eye Current Diet Ordered: Easy to Chew textures / Thin liquids Dentition: Missing Teeth - 4 teeth total - pt reports he is in the process of getting dentures Mental Status: WNL Respiratory Status: Oxygenating on Room Air - Penetration-Aspiration Scale Penetration-Aspiration Scale: OBJECTIVE ASSESSMENT OF SWALLOW FUNCTION (QUANTITATIVE ? PER TRIAL): PENETRATION / ASPIRATION SCALE (YIN): 1 = does not enter airway 2 = enters airway/above vocal folds/ejected 3 = enters airway/above vocal folds/not ejected 4 = enters airway/contacts vocal folds/ejected 5 = enters airway/contacts vocal folds/not ejected 6 = enters airway/below vocal folds/ejected 7 = enters airway/below vocal folds/not ejected despite effort 8 = enters airway/below vocal folds/no effort VIDEOFLOROSCOPIC SCALE SCORE (YIN): Grade I = aspiration of material that has penetrated into the laryngeal vestibule, intact cough reflex Grade II = aspiration < 10 % of the bolus, intact cough reflex Grade III = aspiration of < 10 % of the bolus, reduced cough reflex or aspiration of > 10 % of the bolus, intact cough reflex Grade IV = aspiration of > 10 % of the bolus, reduced cough reflex - Penetration-Aspiration Scale Score Thin Liquid via teaspoon Result: 1= does not enter airway Thin Liquid via teaspoon Trial 2 Result: 1= does not enter airway Thin Liquid via small single sip from cup Result: 1= does not enter airway Thin Liquid via sequential sips from cup Result: 2= enter airway/above vocal folds/ejected [place] Thick Liquid via small single sip from cup Result: 1= does not enter airway [place] Thick Liquid via small single sip from cup Result: 1= does not enter airway Pudding via teaspoon Result: 1= does not enter airway Thin Liquid via sequential sips from straw Result: 2= enter airway/above vocal folds/ejected 1/2 Cookie with pudding coating Result: 1= does not enter airway - Oral Phase Labial Seal: No Labial Escape Tongue Control During Bolus Hold: Posterior escape of less than half of bolus Bolus Preparation/Mastication: Slow prolonged chewing/mashing with complete recollection Bolus Transport/Lingual Motion: Repetitive/disorganized tongue motion Oral Residue: Residue collection on oral structures - piecemeal deglutition of cookie with pudding coating - Pharyngeal Phase Initiation of Pharyngeal Swallow: Bolus head in pyriforms Soft Palate Elevation: No bolus between soft palate and pharyngeal wall Laryngeal Elevation: Comp. Superior move thyroid cart w/comp. apprx arytenoid cart-epig pet Anterior Hyoid Excursion: Partial anterior movement Epiglottic Movement: Complete inversion Laryngeal Vestibule Closure at Height of Swallow: Incomplete; narrow column of air/contrast in laryngeal vestibule Pharyngeal Stripping Wave: Present - complete Pharyngoesophageal Segment Opening: Complete distension and complete duration; no obstruction of flow Tongue Base Retraction: Narrow column of contrast between tongue base & post. pharyngeal wall Pharyngeal Residue: Trace residue within or on pharyngeal structures - Diagnosis/Impression Diagnosis: Mild oral phase dysphagia (R13.11) Impression: The oral phase is primarily marked by... -Decreased bolus control with <1/2 of the bolus spilling posteriorly to the pyriforms prior to swallow onset, which was especially observed with sequential sips of thin liquids -Prolonged mastication of cookie, likely due to presence of only 4 teeth. He does not currently have dentures, but he is in the process of getting them. -Lingual pumping for A-P transport of cookie. -Piecemeal deglutition observed with cookie. Pt effectively cleared oral residues with independent initiation of a second swallow. -The patient demonstrated decreased bolus control and delay in swallow onset with large, sequential sips of thin liquids. Trace, shallow laryngeal penetration of thin liquids via sequential sips by cup and straw was observed; however, the contrast fully ejected from the laryngeal vestibule after the swallow. Overall, he demonstrates good airway closure during the swallow and no aspiration was observed during the study. - Recommendations Diet: Thin Liquids - Easy to Chew textures (IDDSI Level 7) Compensatory Strategies: Small Bites, Small Sips, Slow Rate, Sitting upright Recommend Repeat Modified Barium Swallow: No Need for Skilled Speech Therapy Services: Yes Comment: The patient verbalized good understanding of results and recommendations of MBSS. Dysphagia therapy is not warranted at this time; however, will recommend continuation of oral motor exercises in current dysarthria therapy to promote improved lingual strength and coordination provided findings of mild oral phase deficits. Education Completed: 1. Described result of evaluation., 5. Patient demonstrates recommended strategies. - Status Active ST Patient: Active - Contact Information [facility] Speech Therapy:: Sumaya Carranza M.A. [facility]-[employer] Speech-Language Pathologist [facility] [address] [place] [address] [email or web address] [phone] 03/28/22 09:21
[2022-03-28] MEDS: Pregabalin 50 MG Capsule 100 MG PO ×2 (09:23→21:04)
[2022-03-28] MEDS: Potassium Chloride Oral Tablet 20 MEQ PO ×2 (09:23→16:57)
[2022-03-28 09:24] VITALS: PULSE 67
[2022-03-28] MEDS: Calcium (Elemental) 500 MG Tablet PO ×2 (09:24→16:56)
[2022-03-28] MEDS: Tamsulosin HCl 0.4 MG Capsule PO ×2 (09:24→21:07)
[2022-03-28] MEDS: Metoprolol Tartrate 100 MG Tablet 150 MG PO ×2 (09:24→21:05)
[2022-03-28] MEDS: amLODIPine 10 MG Tablet PO (09:28)
[2022-03-28] MEDS: Sertraline 100 MG Tablet 150 MG PO (09:29)
[2022-03-28] MEDS: Lisinopril 40 MG Tablet PO (09:30)
[2022-03-28] MEDS: 0.9% Saline Lock 10 ML Syringe IV ×2 (09:31→18:27)
[2022-03-28] MEDS: Furosemide 40 MG/4 ML Vial IV ×3 (09:36→18:13)
[2022-03-28] MEDS: Senna/Docusate Sodium 1 Tablet 2 TABLET PO ×2 (09:39→21:04)
[2022-03-28] MEDS: Modafinil 200 MG Tablet PO (09:39)
[2022-03-28 11:40] LABS: Bedside Glucose 145 mg/dL (74-106)
[2022-03-28] MEDS: Insulin Lispro 100 UNIT/ML INSULN.PEN 10 UNIT SC ×2 (12:27→16:58)
[2022-03-28 14:01] VITALS: BMI 32.3
[2022-03-28 16:56] LABS: Bedside Glucose 124 mg/dL (74-106)
[2022-03-28 19:15] VITALS: BP 132/74; PULSE 79; RESP 18; TEMP 37; O2SAT 92
--- NOTE | 2022-03-28 19:35 | PN_ITS ---
Subjective Subjective Patient seen, examined. He is still short of breath, with swelling in arms, hands, legs, feet. His Chest X-ray was consistent with congestive heart failure. Objective Data Objective Data Vital Signs: Vital Signs Temp Pulse Resp BP Pulse Ox O2 Del Method 98.6 F 79 18 132/74 H 92 Room Air 03/28/22 19:15 03/28/22 19:15 03/28/22 19:15 03/28/22 19:15 03/28/22 19:15 03/28/22 19:15 Oxygen Delivery Method Room Air Weight: 92.4 kg Body Mass Index (BMI) 32.3 Intake & Output: Intake and Output for Last 24 Hours 03/26/22 03/27/22 03/28/22 23:59 23:59 23:59 Intake Total 1760 / 1760 Output Total 600 / 600 1700 / 1700 Balance -600 / -600 60 / 60 Lab / Micro Data Labs: Laboratory Results - last 24 hr 03/27/22 20:20: POC Glucose 139 H 03/28/22 02:24: POC Glucose 71 L 03/28/22 06:37: POC Glucose 82 03/28/22 11:17: POC Glucose 145 H 03/28/22 16:37: POC Glucose 124 H Physical Exam Const alert General Appearance: cooperative HEENT normocephalic Eyes PERRL and EOMs intact bilaterally Neck supple, no JVD and no carotid bruits Resp normal respiratory effort, normal air movement and clear to auscultation bilaterally Auscultation: rales bilateral Cardio regular rate and regular rhythm GI normal to inspection, nondistended, normoactive bowel sounds, non-tender and non-distended Extremity normal capillary refill Extremity Narrative: Bilateral lower extremity edema. General Extremity: edema bilateral Skin no rashes or lesions noted General Skin Exam: no breakdown Neuro Neuro Narrative: Left hemiparesis. Psych affect normal Appearance: appropriate Assessment & Plan Assessment/Plan (1) Debility: (2) Right pontine stroke: (3) DM2 (diabetes mellitus, type 2): QUALIFIERS: Diabetes mellitus complication status: without complication Diabetes mellitus fdc insulin use: with roasterman use Qualified Code(s): E11.9 - Type 2 diabetes mellitus without complications; Z79.4 - salvage determiner (current) use of insulin (4) Essential (primary) hypertension: (5) Coronary artery disease: (6) Hyperlipidemia: (7) Obstructive sleep apnea: (8) Migraine headache: (9) Vitamin D deficiency: (10) Diabetic polyneuropathy: (11) Anxiety: (12) Depression: (13) Narcolepsy: PLAN: Plan 67 year old male with below past medical history hospitalized for acute right pontine stroke, complicated by decrease ejection fraction, admitted to for greater than 3 hours daily rehabilitation, strengthening, prior to discharge home with , family. * Debility - PT/OT/ST. * Pain - Tylenol 1000mg q6h prn pain (1-10). * Bowel - senna/colace 2 tablets bid, Dulcolax 10mg pr x 1 prn, MOM 30ml po x 1 prn. * DVT prophylaxis - Lovenox 40mg sc daily. * Hypertension - Metoprolol 150mg bid, Lisinopril 40mg daily, Amlodipine 10mg daily. * Acute right pontine stroke - Aspirin 81mg daily, Plavix 75mg daily thru 04/16/2022. * Hyperlipidemia - Atorvastatin 40mg qhs, [place]-3 1gm bid. * Anxiety - Buspar 10mg bid. * Calcium deficiency - Calcium 500mg bidcm. * Diabetes Mellitus II - Metformin 500mg bidcm, Glucagon 1mg im x1 prn, Increase Lantus 40 units at bedtime, Increase Humalog 13 units tid, Humalog sliding scale. * Narcolepsy - Provigil 200mg daily. * Migraine - Nortriptyline 30mg daily. * Nausea - Zofran 4mg q8h prn. * Depression - Sertraline 150mg daily. * BPH - Tamsulosin 0.4mg daily, straight cath to empty PVR > 300ml. * Vitamin D deficiency - D3 25mcg daily. * Abnormal Echo - EF 60% to 45% over 4 years, schedule [facility]. [facility] appointment for outpatient followup. * Acute on chronic heart failure with reduced ejection fractioni - Chest X-ray shows CHF, He had very little response to oral furosemide 40mg yesterday, he was given Furosemide 40mg IV this AM, then 80mg this PM, he is also on potassium chloride ER 20meq bid, tomorrow he will be on Furosemide 40mg iv twice daily. BMP ordered for tomorrow when Dr. Dee will return. Capacity Capacity Assessment Tool Can the patient make a choice & communicate that choice?: Yes Can the patient understand benefits, risks and alternatives?: Yes Can the patient make a logical, rational choice?: Yes Is the choice the patient makes consistent w/ their values?: Yes Is there an impending, emergent risk to the patient?: No Does the patient have an Advance Directive?: No Is there a Surrogate Available?: Yes i.e. HCPOA: Yes i.e. close relative (spouse, child, parent, sibling)?: Yes
[2022-03-28 21:00] VITALS: BP 144/69; PULSE 76
[2022-03-28 21:05] VITALS: BP 144/69; PULSE 76
[2022-03-28] MEDS: Atorvastatin Calcium 40 MG Tablet PO (21:06)
[2022-03-28] MEDS: Insulin Glargine-YFGN 100 UNIT/ML Pen 30 UNIT SC (21:06)
[2022-03-28 21:45] LABS: Bedside Glucose 130 mg/dL (74-106)
[2022-03-29] MEDS: Insulin Lispro 100 UNIT/ML INSULN.PEN SC ×3 (03:00→22:12)
[2022-03-29 03:20] LABS: Bedside Glucose 207 mg/dL (74-106)
[2022-03-29] MEDS: Enoxaparin 40 MG/0.4 ML Syringe SC (06:20)
[2022-03-29 06:25] LABS: Anion Gap 5 (5-15); BUN 27 mg/dL (7-18); BUN/Creat Ratio 23.7 RATIO (10-20); Calcium,Total 8.6 mg/dL (8.5-10.1); Chloride 101 mmol/L (98-107); Creatinine, Serum 1.14 mg/dL (0.70-1.30); EST Glomerular Filtration Rate 68 mL/min (>60); Est Glom Filt Rate - Afr Amer 83 mL/min (>60); Estimated Creatinine Clearance 57.52 ml/min; Glucose 147 mg/dL (74-106); Potassium 3.5 mmol/L (3.5-5.1); Sodium Level 137 mmol/L (136-145)
[2022-03-29 07:20] LABS: Bedside Glucose 141 mg/dL (74-106)
[2022-03-29 08:00] VITALS: BP 123/67; PULSE 67; RESP 20; TEMP 36.8; O2SAT 94
[2022-03-29] MEDS: Insulin Lispro 100 UNIT/ML INSULN.PEN 10 UNIT SC ×3 (08:05→16:44)
[2022-03-29] MEDS: Omega-3 Acid Ethyl Esters 1 GM Capsule PO ×2 (08:06→20:29)
[2022-03-29] MEDS: amLODIPine 10 MG Tablet PO (08:06)
[2022-03-29] MEDS: Tamsulosin HCl 0.4 MG Capsule PO ×2 (08:06→20:30)
[2022-03-29] MEDS: Lisinopril 40 MG Tablet PO (08:07)
[2022-03-29] MEDS: Aspirin 81 MG TAB.CHEW PO (08:07)
[2022-03-29] MEDS: Clopidogrel Bisulfate 75 MG Tablet PO (08:07)
[2022-03-29] MEDS: Nortriptyline 10 MG Capsule 30 MG PO (08:07)
[2022-03-29] MEDS: Cholecalciferol (VIT D3) 25 MCG TABLET (1,000 UNITS) PO ×2 (08:07→16:46)
[2022-03-29] MEDS: metFORMIN HCl 500 MG Tablet PO ×2 (08:07→16:45)
[2022-03-29] MEDS: Sertraline 100 MG Tablet 150 MG PO (08:12)
[2022-03-29] MEDS: Modafinil 200 MG Tablet PO (08:12)
[2022-03-29] MEDS: Pregabalin 50 MG Capsule 100 MG PO ×2 (08:12→20:34)
[2022-03-29] MEDS: Furosemide 40 MG/4 ML Vial IV ×2 (08:13→18:53)
[2022-03-29] MEDS: 0.9% Saline Lock 10 ML Syringe IV (08:13)
[2022-03-29] MEDS: busPIRone 5 MG Tablet 10 MG PO ×2 (08:14→20:29)
[2022-03-29 08:16] VITALS: PULSE 70
[2022-03-29] MEDS: Metoprolol Tartrate 100 MG Tablet 150 MG PO ×2 (08:16→20:30)
[2022-03-29] MEDS: Potassium Chloride Oral Tablet 20 MEQ PO ×2 (08:16→16:46)
[2022-03-29] MEDS: Calcium (Elemental) 500 MG Tablet PO ×2 (08:18→16:45)
[2022-03-29] MEDS: Senna/Docusate Sodium 1 Tablet 2 TABLET PO ×2 (08:19→20:29)
[2022-03-29 11:20] LABS: Bedside Glucose 139 mg/dL (74-106)
[2022-03-29 13:15] VITALS: BMI 32.3
--- NOTE | 2022-03-29 14:58 | PCM.PROGNOTE ---
Subjective Subjective I reviewed Dr. Lester's history and physical from 03/20/2022. Mr. Rodrigues is a 67-year-old male who went to bed at 11 PM on 03/15/2022 feeling well. The next morning he woke up with lower extremity weakness and slurred speech. NIH score was 7 at presentation to the emergency department. Stat noncontrast CT brain revealed no acute abnormalities. CTA of the head and neck showed no evidence of occlusive vascular disease and no evidence of acute stroke. Teleneurology was consulted and the patient received no tPA because he was outside of the window. They recommended 300 mg of Plavix. He had been taking intermittent aspirin daily at home. MRI of the brain showed a small acute infarct in the right pina. Echocardiogram showed an ejection fraction of 45% with mild global hypokinesis. EF in March 2021 was normal at 55 to 60%. Bubble contrast study was negative for intra-atrial shunt. There was no significant valvular heart disease. Past medical history significant for anxiety, chronic pain syndrome, coronary artery disease, sleep apnea, depression, diabetes mellitus, tobacco dependence in remission, GERD, noncompliance with medication follow-up, history of GI bleed, bilateral hearing loss, hypertension, hypothyroidism, migraines, osteoporosis and BPH. He was transferred to the acute inpatient rehab unit at [facility] on 03/19/2022 for 3 hours of therapy daily to restore function at or near his prior level of independence. He lives with his and family. He has recently been diuresed with Lasix IV for acute CHF. His weight at admission to the hospital on 03/16/2022 was 195 pounds and 12 ounces and today is 212 pounds and 5 ounces. So far today he has had 1740 in and 2049 out for a balance of -310 cc. This is likely not accurate due to incontinence. Post void residuals checked since admission to rehab have been erratic. They have been as high as 480 and on 1 occasion it was 0. All lab from today was personally reviewed. Potassium is 3.5 and the BUN is 27 with a creatinine of 1.14. BUN was 42 on 03/19/2022 with a creatinine of 1.42. LDL at admission to the hospital was 58 with a low HDL at 36. Triglycerides were mildly elevated at 215, likely secondary to uncontrolled diabetes mellitus. Hemoglobin A1c in the past has been as high as 12 on 08/18/2019. Afebrile VSS Maintaining appropriate oxygen saturation on RA Oral intake is being monitored. Blood sugar record was reviewed. Blood sugars are currently fairly well controlled. He did have 1 hypoglycemic episode on 03/28/2022 at 0224. He did not have hypoglycemia last night. No HGBA1C was done this admission. The last TSH on record was 04/04/2021 and it was 1.1. Also on that date T4 was within normal limits. Discussed with nursing - no problems that need addressed Reviewed the PT/OT/ST notes Medication list reviewed. Tells me that his breathing is much better since the Lasix. He used to be on Lasix once a day and then his doctor stopped it.......he says it was stopped because he no longer had swelling. 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 He tells me that he takes U 500 insulin 3 times a day at home and that he has a dex scan and his BS's at home have been all less than 130 recently. Had 1 low BS at night in the 70's at home and he uses glucose tabs when it is low. Denies palpitations, hx of CHF, recent CP, hx of AF. He does not drink alcohol. Tells me that he had a stress test about 6 months ago and it looked good. He has PERALTA. Slept with the HOB raised only a little at night. His stepson does the cooking at home.......he does not add salt BUT, he has a box of Cheez IT's and a bag of cheese balls in his room currently. He denies dysuria, nausea, abd pain, calf pain. Tells me that he has had a few times in the past when he could not get his words out and it passed without him having to go to the hospital or the ED. He admits to having trouble with balance prior to this stroke and also admits to numbness in both feet and in the 4th and little finger on each hand. Objective Data Objective Data Vital Signs: Vital Signs Temp Pulse Resp BP Pulse Ox O2 Del Method 98.2 F 70 20 H 123/67 H 94 Room Air 03/29/22 08:00 03/29/22 08:16 03/29/22 08:00 03/29/22 08:00 03/29/22 08:00 03/29/22 08:00 Oxygen Delivery Method Room Air Weight: 212 lb 4.882 oz Body Mass Index (BMI) 32.3 Intake & Output: Intake and Output for Last 24 Hours 03/27/22 03/28/22 03/29/22 23:59 23:59 23:59 Intake Total 1760 / 1760 680 / 680 Output Total 2400 / 2400 600 / 600 Balance -640 / -640 80 / 80 Lab / Micro Data Result Diagrams: 03/29/22 05:43 Labs: Laboratory Results - last 24 hr 03/28/22 16:37: POC Glucose 124 H 03/28/22 21:02: POC Glucose 130 H 03/29/22 02:57: POC Glucose 207 H 03/29/22 05:43: Sodium 137, Potassium 3.5, Chloride 101, Carbon Dioxide 31.0, Anion Gap 5, BUN 27 H, Creatinine 1.14, Estim Creat Clear Calc 57.52, Est GFR (MDRD) Af Amer 83, Est GFR (MDRD) Non-Af 68, BUN/Creatinine Ratio 23.7 H, Glucose 147 H, Calcium 8.6 03/29/22 06:24: POC Glucose 141 H 03/29/22 11:02: POC Glucose 139 H Physical Exam Const alert, oriented x3 and no apparent distress Constitutional Narrative: Sitting in the recliner at the bedside resting. General Appearance: cooperative and well developed HEENT HEENT Narrative: Mucous membranes are very dry. The tongue protrudes on the midline. Eyes PERRL and EOMs intact bilaterally Eyes Narrative: He tells me that he has blurred vision in the R eye and that he needs to have a laser done to stop the bleeding. Neck No nuchal rigidity General: trachea midline Resp normal respiratory effort Resp Narrative: Decreased BS's throughout. No crackles and no wheezes. No conversational dyspnea. Not tachypneic when speaking to me. Cardio Cardio Narrative: Distant heart sounds. Regular rhythm with no ectopy. No gallop appreciated and no MM or rub. GI non-tender GI Narrative: No guarding with palpation. BS's present in all quadrants. Inspection: Negative for abdominal distention Extremity no calf tenderness Extremity Narrative: He has pitting edema of both ankles and some pitting in the posterior thighs BL. No pitting in the flanks. He has non-pitting edema of the Left hand....but, not the R. He has weakness on the left side from the stroke and may not be moving it as much. Skin General Skin Exam: no breakdown Rashes: no rashes Neuro Neuro Narrative: L facial droop. Some weakness in the LUE when compared to the left but with no drift. No Ataxia. The left leg has a slight drift but did not fall to the bed. No tremors. No slurred speech and no trouble with word finding. No nystagmus Coordination / Balance: [id number] test normal and [id number] test normal Speech: speech normal Psych cooperative and affect normal Appearance: appropriate Activity / Motor Behavior: Negative for restless Assessment & Plan Assessment/Plan (1) Debility: (2) Right pontine stroke: (3) Facial droop due to acute cerebrovascular accident (CVA): (4) Acute left-sided weakness: (5) Acute systolic CHF (congestive heart failure): (6) Cardiomyopathy: (7) DM2 (diabetes mellitus, type 2): QUALIFIERS: Diabetes mellitus complication status: without complication Diabetes mellitus terminal makeup operator insulin use: with terminal makeup operator use Qualified Code(s): E11.9 - Type 2 diabetes mellitus without complications; Z79.4 - correction (current) use of insulin (8) Diabetic retinopathy: PLAN: Needs laser coagulation but has not had it yet. (9) Diabetic polyneuropathy: (10) Obstructive sleep apnea: (11) Coronary artery disease: (12) Hyperlipidemia: (13) Vitamin D deficiency: (14) Migraine headache: (15) Anxiety: (16) Depression: (17) Narcolepsy: PLAN: Plan 1. Continue PT/OT/ST 2. daily weights and accurate I&O's. 3. order 3 more post void residuals. 4. BNP, BMP, MAG, TSH HGBA1C in the AM 5. Obtain records from PCP and cardiology at [facility]. Why does he have a CM now? does not drink. No hx of AF. No significant vascular disease on the Head or neck. 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 This can contribute to the chronic dysequilibrium he c/o .....uses a WW to ambulate at home. 6. Continue the current insulin dosing........BS's controlled on Lantus, Lispro and Glucophage currently......tells me he takes U 500 insulin at home? will have his bring in his medications. Charges/Coding Visit Charges Inpatient E&M: 60732 Subs Hosp L2
[2022-03-29 16:40] LABS: Bedside Glucose 171 mg/dL (74-106)
[2022-03-29] MEDS: Potassium Chloride Oral Tablet 20 MEQ 40 MEQ PO (16:44)
[2022-03-29 20:30] VITALS: BP 138/71; PULSE 71
[2022-03-29] MEDS: Atorvastatin Calcium 40 MG Tablet PO (20:30)
[2022-03-29 21:55] LABS: Bedside Glucose 197 mg/dL (74-106)
[2022-03-29 22:00] VITALS: BP 107/61; PULSE 71; RESP 18; TEMP 36.8; O2SAT 95
[2022-03-29] MEDS: Insulin Glargine-YFGN 100 UNIT/ML Pen 30 UNIT SC (22:14)
--- NOTE | 2022-03-30 01:55 | NURSING ---
pt inc of a large amt of urine, voided per the urinal 200, bladder scanned for [address] cathed for 600.
[2022-03-30 03:31] LABS: Bedside Glucose 166 mg/dL (74-106)
[2022-03-30] MEDS: Insulin Lispro 100 UNIT/ML INSULN.PEN SC (03:37)
[2022-03-30 03:47] VITALS: BMI 32.3
[2022-03-30 04:56] LABS: Bedside Glucose 164 mg/dL (74-106)
[2022-03-30] MEDS: Enoxaparin 40 MG/0.4 ML Syringe SC (06:52)
[2022-03-30 07:10] LABS: Bedside Glucose 113 mg/dL (74-106)
[2022-03-30 07:20] LABS: BNP,B-Type NATRIURETIC PEPTIDE 82.5 pg/mL (0-100)
[2022-03-30 07:25] LABS: Hemoglobin A1c 7.7 % (3.8-5.6)
[2022-03-30 07:26] VITALS: BP 117/68; PULSE 63; RESP 16; TEMP 36.9; O2SAT 94
[2022-03-30] MEDS: Senna/Docusate Sodium 1 Tablet 2 TABLET PO (07:33)
[2022-03-30] MEDS: Nortriptyline 10 MG Capsule 30 MG PO (07:33)
[2022-03-30] MEDS: Lisinopril 40 MG Tablet PO (07:33)
[2022-03-30] MEDS: Calcium (Elemental) 500 MG Tablet PO ×2 (07:33→17:09)
[2022-03-30 07:34] VITALS: PULSE 78
[2022-03-30 07:34] LABS: Anion Gap 4 (5-15); BUN 28 mg/dL (7-18); BUN/Creat Ratio 22.2 RATIO (10-20); Calcium,Total 8.7 mg/dL (8.5-10.1); Chloride 104 mmol/L (98-107); Creatinine, Serum 1.26 mg/dL (0.70-1.30); EST Glomerular Filtration Rate 61 mL/min (>60); Est Glom Filt Rate - Afr Amer 74 mL/min (>60); Estimated Creatinine Clearance 52.04 ml/min; Glucose 131 mg/dL (74-106); Magnesium 1.9 mg/dL (1.6-2.6); Sodium Level 140 mmol/L (136-145); Thyroid Stim Hormone (TSH) 5.79 uIU/mL (0.358-3.74)
[2022-03-30] MEDS: Cholecalciferol (VIT D3) 25 MCG TABLET (1,000 UNITS) PO ×2 (07:34→17:09)
[2022-03-30] MEDS: Metoprolol Tartrate 100 MG Tablet 150 MG PO ×2 (07:34→22:17)
[2022-03-30] MEDS: metFORMIN HCl 500 MG Tablet PO ×2 (07:34→17:09)
[2022-03-30] MEDS: Clopidogrel Bisulfate 75 MG Tablet PO (07:35)
[2022-03-30] MEDS: busPIRone 5 MG Tablet 10 MG PO ×2 (07:35→22:17)
[2022-03-30] MEDS: Aspirin 81 MG TAB.CHEW PO (07:35)
[2022-03-30] MEDS: Insulin Lispro 100 UNIT/ML INSULN.PEN 10 UNIT SC ×3 (07:39→17:10)
[2022-03-30] MEDS: Tamsulosin HCl 0.4 MG Capsule PO ×2 (09:05→22:16)
[2022-03-30] MEDS: Omega-3 Acid Ethyl Esters 1 GM Capsule PO ×2 (09:05→22:17)
[2022-03-30] MEDS: Potassium Chloride Oral Tablet 20 MEQ PO ×2 (09:05→17:09)
[2022-03-30] MEDS: Sertraline 100 MG Tablet 150 MG PO (09:05)
[2022-03-30] MEDS: Furosemide 40 MG Tablet PO (09:06)
[2022-03-30] MEDS: 0.9% Saline Lock 10 ML Syringe IV (10:27)
[2022-03-30] MEDS: amLODIPine 10 MG Tablet PO (10:27)
[2022-03-30] MEDS: Pregabalin 50 MG Capsule 100 MG PO ×2 (10:27→22:16)
[2022-03-30] MEDS: Modafinil 200 MG Tablet PO (10:27)
[2022-03-30 11:50] LABS: Bedside Glucose 144 mg/dL (74-106)
[2022-03-30 13:24] LABS: T4 Free Direct 0.96 ng/dL (0.76-1.46)
[2022-03-30 14:59] VITALS: BMI 32.3
[2022-03-30 17:11] LABS: Bedside Glucose 164 mg/dL (74-106)
--- NOTE | 2022-03-30 19:27 | NURSING ---
This nurse has tried to fax to [facility] several times yesterday and today with no success. Will have nurse Friday call office again.
[2022-03-30 22:00] VITALS: BP 168/96; PULSE 75; RESP 18; TEMP 36.6; O2SAT 94
[2022-03-30 22:10] LABS: Bedside Glucose 234 mg/dL (74-106)
[2022-03-30 22:17] VITALS: PULSE 75
[2022-03-30] MEDS: Insulin Glargine-YFGN 100 UNIT/ML Pen 30 UNIT SC (22:17)
[2022-03-30] MEDS: Atorvastatin Calcium 40 MG Tablet PO (22:17)
[2022-03-31 03:51] VITALS: BMI 32.3
[2022-03-31] MEDS: Enoxaparin 40 MG/0.4 ML Syringe SC (05:38)
[2022-03-31 06:46] LABS: Bedside Glucose 232 mg/dL (74-106)
[2022-03-31 07:24] VITALS: BP 124/75; PULSE 68; RESP 16; TEMP 36.6; O2SAT 94
[2022-03-31 08:02] VITALS: PULSE 77
[2022-03-31] MEDS: busPIRone 5 MG Tablet 10 MG PO ×2 (08:02→21:03)
[2022-03-31] MEDS: Sertraline 100 MG Tablet 150 MG PO (08:02)
[2022-03-31] MEDS: Nortriptyline 10 MG Capsule 30 MG PO (08:02)
[2022-03-31] MEDS: Metoprolol Tartrate 100 MG Tablet 150 MG PO ×2 (08:02→21:04)
[2022-03-31] MEDS: Insulin Lispro 100 UNIT/ML INSULN.PEN 10 UNIT SC ×3 (08:02→16:54)
[2022-03-31] MEDS: metFORMIN HCl 500 MG Tablet PO ×2 (08:03→16:53)
[2022-03-31] MEDS: Calcium (Elemental) 500 MG Tablet PO ×2 (08:03→16:52)
[2022-03-31] MEDS: Aspirin 81 MG TAB.CHEW PO (08:03)
[2022-03-31] MEDS: amLODIPine 10 MG Tablet PO (08:03)
[2022-03-31] MEDS: Potassium Chloride Oral Tablet 20 MEQ PO ×2 (08:05→16:52)
[2022-03-31] MEDS: Cholecalciferol (VIT D3) 25 MCG TABLET (1,000 UNITS) PO ×2 (08:05→16:53)
[2022-03-31] MEDS: Pregabalin 50 MG Capsule 100 MG PO ×2 (09:50→21:23)
[2022-03-31] MEDS: Modafinil 200 MG Tablet PO (09:50)
[2022-03-31] MEDS: Tamsulosin HCl 0.4 MG Capsule PO ×2 (09:51→21:05)
[2022-03-31] MEDS: Omega-3 Acid Ethyl Esters 1 GM Capsule PO ×2 (09:51→21:03)
[2022-03-31] MEDS: Clopidogrel Bisulfate 75 MG Tablet PO (09:51)
[2022-03-31] MEDS: Furosemide 40 MG Tablet PO (09:52)
[2022-03-31] MEDS: Lisinopril 40 MG Tablet PO (09:55)
[2022-03-31 12:35] LABS: Bedside Glucose 178 mg/dL (74-106)
[2022-03-31 13:06] VITALS: BMI 32.3
[2022-03-31 17:31] LABS: Bedside Glucose 178 mg/dL (74-106)
[2022-03-31 19:55] VITALS: BP 132/74; PULSE 73; RESP 18; TEMP 36.4; O2SAT 97
[2022-03-31 21:04] VITALS: BP 132/74; PULSE 73
[2022-03-31] MEDS: Atorvastatin Calcium 40 MG Tablet PO (21:05)
[2022-03-31] MEDS: Insulin Glargine-YFGN 100 UNIT/ML Pen 30 UNIT SC (21:05)
[2022-03-31 21:50] LABS: Bedside Glucose 294 mg/dL (74-106)
[2022-04-01] VITALS (8 sets, daily range): BP systolic 125–154; BP diastolic 73–84; PULSE 69–74; RESP 16–18; TEMP 36.2–36.9; O2SAT 94–97; BMI 32.3
--- NOTE | 2022-04-01 03:35 | PCM.HOSP.N ---
Hospitalist Note Patient with fall onto his bottom, no injury visible, no head trauma or LOC. Will place patient on fall precautions and place bed alarm.
--- NOTE | 2022-04-01 03:42 | NURSING ---
Pt found on his bottom, sitting on the floor with florecita walker next to him and cpap on, stating he was trying to go to the bathroom, forgot to use call light. BP 125/80, T 97.6, P 73, SpO2 96 RA, BS 290. Denies pain, no signs of injury. Assisted back to bed, bed alarm applied.
[2022-04-01 03:56] LABS: Bedside Glucose 290 mg/dL (74-106)
[2022-04-01] MEDS: 0.9% Saline Lock 10 ML Syringe IV ×3 (05:12→21:27)
[2022-04-01] MEDS: Enoxaparin 40 MG/0.4 ML Syringe SC (05:19)
[2022-04-01 06:33] LABS: Anion Gap 6 (5-15); BUN 24 mg/dL (7-18); BUN/Creat Ratio 20.7 RATIO (10-20); Calcium,Total 8.7 mg/dL (8.5-10.1); Chloride 103 mmol/L (98-107); Creatinine, Serum 1.16 mg/dL (0.70-1.30); EST Glomerular Filtration Rate 67 mL/min (>60); Est Glom Filt Rate - Afr Amer 81 mL/min (>60); Estimated Creatinine Clearance 56.53 ml/min; Glucose 280 mg/dL (74-106); Magnesium 1.5 mg/dL (1.6-2.6); Potassium 4.1 mmol/L (3.5-5.1); Sodium Level 139 mmol/L (136-145)
--- NOTE | 2022-04-01 07:30 | NURSING ---
MESSAGE LEFT ON PT'S 'S PHONE ([phone]) INFORMING HER THAT PT FELL ON HIS BUTTOCKS DURING NIGHT WHEN HE GOT OOB, BUT THAT HE IS DOING FINE. PT HAD REQUESTED THAT NOT BE CALLED DURING THE NIGHT AFTER HIS FALL HE DID NOT WANT TO ALARM HER.
[2022-04-01] MEDS: Insulin Lispro 100 UNIT/ML INSULN.PEN 10 UNIT SC ×3 (07:52→17:15)
[2022-04-01] MEDS: busPIRone 5 MG Tablet 10 MG PO ×2 (07:53→21:13)
[2022-04-01] MEDS: Aspirin 81 MG TAB.CHEW PO (07:53)
[2022-04-01] MEDS: Metoprolol Tartrate 100 MG Tablet 150 MG PO ×2 (07:53→21:11)
[2022-04-01] MEDS: Calcium (Elemental) 500 MG Tablet PO ×2 (07:55→17:15)
[2022-04-01] MEDS: Lisinopril 40 MG Tablet PO (07:55)
[2022-04-01] MEDS: Tamsulosin HCl 0.4 MG Capsule PO ×2 (07:55→21:13)
[2022-04-01] MEDS: Sertraline 100 MG Tablet 150 MG PO (07:55)
[2022-04-01] MEDS: amLODIPine 10 MG Tablet PO (07:55)
[2022-04-01] MEDS: Cholecalciferol (VIT D3) 25 MCG TABLET (1,000 UNITS) PO ×2 (07:55→17:15)
[2022-04-01] MEDS: metFORMIN HCl 500 MG Tablet PO ×2 (07:55→17:16)
[2022-04-01] MEDS: Furosemide 40 MG Tablet PO (07:55)
[2022-04-01] MEDS: Clopidogrel Bisulfate 75 MG Tablet PO (07:56)
[2022-04-01] MEDS: Omega-3 Acid Ethyl Esters 1 GM Capsule PO ×2 (07:56→21:11)
[2022-04-01] MEDS: Nortriptyline 10 MG Capsule 30 MG PO (07:56)
[2022-04-01] MEDS: Modafinil 200 MG Tablet PO (08:00)
[2022-04-01] MEDS: Pregabalin 50 MG Capsule 100 MG PO ×2 (08:00→21:11)
[2022-04-01] MEDS: Potassium Chloride Oral Tablet 20 MEQ PO ×2 (08:00→17:15)
[2022-04-01] MEDS: Senna/Docusate Sodium 1 Tablet 2 TABLET PO ×2 (08:00→21:10)
--- NOTE | 2022-04-01 08:39 | NURSING ---
Contacted [facility] and spoke with Kinsey. Their fax# is [phone]. Faxed records request to them.
[2022-04-01 11:30] LABS: Bedside Glucose 254 mg/dL (74-106)
--- NOTE | 2022-04-01 13:54 | CASEMGMT ---
Social Work IDT met with patient in room for Team meeting. SW encouraged pt to contact via conference to be involved in Team meeting. did participate via phone. Discussed patients progress in PT/OT/ST/SN. Educated to [facility] insurance with [employer] 04/02 and continued stay is not guaranteed. expressed not being at Team meeting due to trying to pack in preparation for moving. SW inquired if housing has been secured. denied, stated they do not want an apartment, only a house. SW asked if is keeping landlord updated on progress - confirmed. SW reiterated to contact [facility] or other housing resources this worker provided, and offered ongoing assistance. SW wants to ensure pt has a DC location. Pt replied, I will; I'll be fine. Will ReTeam next week. Taylor Lomeli, TECHNOLOGY SERVICES MANAGER INTERNET MARKETING STRATEGIST
--- NOTE | 2022-04-01 14:19 | PN_ITS ---
Subjective Subjective Clay was seen on team rounds today. His Anastasia Albright participated by phone. Afebrile VSS - BP is often mildly above goal of < 130/80 Maintaining appropriate oxygen saturation on RA Oral intake is good. His family is bringing him food from outside and this is likely contributing to the uncontrolled BS's Discussed with nursing - no problems that need addressed Reviewed the PT/OT/ST notes Medication list reviewed. The blood sugar record was reviewed and the blood sugars are not adequately controlled. Part of this is due to the fact that he is not compliant with the hospital diet and also because he was taking U 500 insulin at home and he is not currently on U 500, he is on Glargine and mealtime Lispro. At home he was taking 80 units of U 500 with breakfast and lunch and 100 units at suppertime. He is also on Metformin. Lab from today was personally reviewed. Potassium is stable at 4.1 and the sodium is 139. The BUN is 24, down from 28 on 03/30/2022 and his creatinine is stable at 1.16. Magnesium is low at 1.5. SOB is much better. He had some PERALTA with ambulation today but, he walked f urther than he has been able to in the past. He denies CP, Cephalgia, lightheadedness, abd pain, nausea, dysuria, constipation, calf pain. Objective Data Objective Data Vital Signs: Vital Signs Temp Pulse Resp BP Pulse Ox O2 Del Method 98.5 F 74 18 144/77 H 97 Room Air 04/01/22 07:49 04/01/22 09:19 04/01/22 09:19 04/01/22 07:49 04/01/22 09:19 04/01/22 09:19 Oxygen Delivery Method Room Air Weight: 208 lb 8 oz Body Mass Index (BMI) 32.3 Intake & Output: Intake and Output for Last 24 Hours 03/30/22 03/31/22 04/01/22 23:59 23:59 23:59 Intake Total 1050 / 1050 1200 / 1200 660 / 660 Output Total 1350 / 1350 1375 / 1375 1850 / 1850 Balance -300 / -300 -175 / -175 -1190 / -1190 Lab / Micro Data Result Diagrams: 04/01/22 04:55 Labs: Laboratory Results - last 24 hr 03/31/22 16:48: POC Glucose 178 H 03/31/22 21:01: POC Glucose 294 H 04/01/22 03:35: POC Glucose 290 H 04/01/22 04:55: Sodium 139, Potassium 4.1, Chloride 103, Carbon Dioxide 30.0, Anion Gap 6, BUN 24 H, Creatinine 1.16, Estim Creat Clear Calc 56.53, Est GFR (MDRD) Af Amer 81, Est GFR (MDRD) Non-Af 67, BUN/Creatinine Ratio 20.7 H, Glucose 280 H, Calcium 8.7, Magnesium 1.5 L 04/01/22 10:59: POC Glucose 254 H Physical Exam Const alert, oriented x3 and no apparent distress Constitutional Narrative: Has not been eating the cheese balls since I told him not to last Friday. He was sitting in the recliner and looked to be in no distress. General Appearance: cooperative and well developed Resp normal respiratory effort, normal air movement and clear to auscultation bilaterally Cardio regular rate, regular rhythm and no gallops Cardio Narrative: heart sounds are somewhat distant. 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 Continue therapy 2. Start magnesium chloride 128 mg twice daily and recheck a magnesium level toward the end of the week. Continue current dose of potassium. 3. DC the Glargine and Lispro and start U 500 40 units with breakfast and lunch and 50 units with supper. Continue QID accuchecks AC and HS. 4. Continue Lasix 40 mg once daily and potassium 20 BID 5. Continue RICKIE hose......I suspect the ankle edema at this time is more likely due to SE of Narvasc and not CHF. Charges/Coding Visit Charges Inpatient E&M: 05177 Subs Hosp L2
[2022-04-01 16:40] LABS: Bedside Glucose 229 mg/dL (74-106)
[2022-04-01] MEDS: Magnesium Chloride 64 MG Delay Rel.Tablet 128 MG PO (21:11)
[2022-04-01] MEDS: Atorvastatin Calcium 40 MG Tablet PO (21:12)
[2022-04-01] MEDS: Insulin Glargine-YFGN 100 UNIT/ML Pen 30 UNIT SC (21:12)
[2022-04-01 22:06] LABS: Bedside Glucose 201 mg/dL (74-106)
[2022-04-02] MEDS: Enoxaparin 40 MG/0.4 ML Syringe SC (05:28)
[2022-04-02 06:40] LABS: Bedside Glucose 122 mg/dL (74-106)
[2022-04-02] MEDS: Omega-3 Acid Ethyl Esters 1 GM Capsule PO ×2 (07:57→21:11)
[2022-04-02] MEDS: Clopidogrel Bisulfate 75 MG Tablet PO (07:57)
[2022-04-02] MEDS: busPIRone 5 MG Tablet 10 MG PO ×2 (07:57→21:09)
[2022-04-02] MEDS: Calcium (Elemental) 500 MG Tablet PO ×2 (07:57→16:43)
[2022-04-02] MEDS: Aspirin 81 MG TAB.CHEW PO (07:57)
[2022-04-02] MEDS: Potassium Chloride Oral Tablet 20 MEQ PO ×2 (07:57→16:43)
[2022-04-02] MEDS: Sertraline 100 MG Tablet 150 MG PO (07:57)
[2022-04-02] MEDS: metFORMIN HCl 500 MG Tablet PO ×2 (07:57→16:42)
[2022-04-02] MEDS: Nortriptyline 10 MG Capsule 30 MG PO (07:58)
[2022-04-02 08:00] VITALS: PULSE 77
[2022-04-02] MEDS: Metoprolol Tartrate 100 MG Tablet 150 MG PO ×2 (08:00→21:10)
[2022-04-02] MEDS: Insulin Lispro 100 UNIT/ML INSULN.PEN 10 UNIT SC (08:02)
[2022-04-02 08:06] VITALS: BP 122/71; PULSE 61; RESP 16; TEMP 37.3; O2SAT 96
--- NOTE | 2022-04-02 09:16 | PCM.PROGNOTE ---
Subjective Subjective Afebrile VSS Maintaining appropriate oxygen saturation on RA Oral intake is good Fluid balance yesterday was -590 mL Discussed with nursing - no problems that need addressed Reviewed the PT/OT/ST notes Medication list reviewed. Magnesium supplement ordered yesterday and the insulin has been changed to U 500 Clay denies CP, SOB at rest, lightheadedness, abd pain, nausea, diarrhea, dysuria, calf pain. FBS today is 122 and I suspect that after our talk about fast food yesterday he is being more compliant with eating the hospital food and not [employer]. Objective Data Objective Data Vital Signs: Vital Signs Temp Pulse Resp BP Pulse Ox O2 Del Method 99.1 F 61 16 122/71 H 96 Room Air 04/02/22 08:06 04/02/22 08:06 04/02/22 08:06 04/02/22 08:06 04/02/22 08:06 04/02/22 08:06 Oxygen Delivery Method Room Air Weight: 208 lb 8 oz Body Mass Index (BMI) 32.3 Intake & Output: Intake and Output for Last 24 Hours 03/31/22 04/01/22 04/02/22 23:59 23:59 23:59 Intake Total 1200 / 1200 1510 / 1510 0 / 0 Output Total 1375 / 1375 2100 / 2100 400 / 400 Balance -175 / -175 -590 / -590 -400 / -400 Lab / Micro Data Result Diagrams: 04/05/22 23:16 Labs: Laboratory Results - last 24 hr 04/01/22 10:59: POC Glucose 254 H 04/01/22 16:07: POC Glucose 229 H 04/01/22 21:06: POC Glucose 201 H 04/02/22 06:19: POC Glucose 122 H Physical Exam Const alert, oriented x3 and no apparent distress Resp Resp Narrative: diminished in the bases but no rales. No conversational dypnea. Still with some PERALTA.....due to deconditioning? or CHF? BNP was normal. Effort and Inspection: Negative for tachypneic Cardio regular rate, regular rhythm and no gallops Cardio Narrative: distant heart sounds GI normal to inspection, nondistended, normoactive bowel sounds, soft to palpation and non-tender Extremity Extremity Narrative: still with piting edema of the ankles. No thigh edema today and no pretibial edema. Skin General Skin Exam: no breakdown Rashes: no rashes Assessment & Plan Assessment/Plan (1) Right pontine stroke: PLAN: Continue therapy. (2) Debility: (3) Acute systolic CHF (congestive heart failure): (4) Cardiomyopathy: PLAN: Etiology is unknown at this time......he has no wall motion abnormality but could be ischemic......could he have had PAF and tachycardia lead to the CM? Mag is low. Continue Lasix but, decrease to once a day and have him follow up with cardiology at the [place]......still awaiting the records from the [place]. (5) DM2 (diabetes mellitus, type 2): QUALIFIERS: Diabetes mellitus complication status: without complication Diabetes mellitus supervisor printing and stamping insulin use: with mcfp use Qualified Code(s): E11.9 - Type 2 diabetes mellitus without complications; Z79.4 - contract attorney (current) use of insulin Charges/Coding Visit Charges Inpatient E&M: 36422 Subs Hosp L2
[2022-04-02] MEDS: Lisinopril 40 MG Tablet PO (10:04)
[2022-04-02] MEDS: Magnesium Chloride 64 MG Delay Rel.Tablet 128 MG PO ×2 (10:04→21:12)
[2022-04-02] MEDS: Tamsulosin HCl 0.4 MG Capsule PO ×2 (10:04→21:10)
[2022-04-02] MEDS: Cholecalciferol (VIT D3) 25 MCG TABLET (1,000 UNITS) PO ×2 (10:04→16:43)
[2022-04-02] MEDS: Furosemide 40 MG Tablet PO (10:04)
[2022-04-02] MEDS: amLODIPine 10 MG Tablet PO (10:04)
[2022-04-02] MEDS: Modafinil 200 MG Tablet PO (10:04)
[2022-04-02] MEDS: Pregabalin 50 MG Capsule 100 MG PO ×2 (10:04→21:14)
[2022-04-02 11:35] LABS: Bedside Glucose 164 mg/dL (74-106)
[2022-04-02] MEDS: Insulin U-500 UNITS/ML PEN 40 UNITS SC (12:35)
[2022-04-02] MEDS: Insulin U-500 UNITS/ML PEN 50 UNITS SC (16:43)
[2022-04-02 17:00] VITALS: BMI 32.3
[2022-04-02 17:20] LABS: Bedside Glucose 126 mg/dL (74-106)
[2022-04-02 20:36] VITALS: BP 143/76; PULSE 69; RESP 16; TEMP 36.4; O2SAT 94
[2022-04-02 20:40] VITALS: BMI 32.3
[2022-04-02 21:10] VITALS: PULSE 69
[2022-04-02] MEDS: Atorvastatin Calcium 40 MG Tablet PO (21:10)
[2022-04-02 21:40] LABS: Bedside Glucose 131 mg/dL (74-106)
[2022-04-02 22:00] VITALS: PULSE 69; RESP 16; O2SAT 94
[2022-04-03] MEDS: Enoxaparin 40 MG/0.4 ML Syringe SC (06:11)
[2022-04-03 07:26] LABS: Bedside Glucose 154 mg/dL (74-106)
[2022-04-03 08:29] VITALS: BP 146/72; PULSE 64; RESP 15; TEMP 36.2; O2SAT 95
[2022-04-03] MEDS: Insulin U-500 UNITS/ML PEN 40 UNITS SC ×2 (09:06→11:36)
[2022-04-03] MEDS: Potassium Chloride Oral Tablet 20 MEQ PO ×2 (09:08→17:06)
[2022-04-03] MEDS: Aspirin 81 MG TAB.CHEW PO (09:08)
[2022-04-03] MEDS: Calcium (Elemental) 500 MG Tablet PO ×2 (09:08→17:06)
[2022-04-03] MEDS: metFORMIN HCl 500 MG Tablet PO ×2 (09:08→17:06)
[2022-04-03] MEDS: Cholecalciferol (VIT D3) 25 MCG TABLET (1,000 UNITS) PO ×2 (09:08→17:07)
[2022-04-03] MEDS: busPIRone 5 MG Tablet 10 MG PO ×2 (09:08→20:44)
[2022-04-03 09:09] VITALS: PULSE 64
[2022-04-03] MEDS: Metoprolol Tartrate 100 MG Tablet 150 MG PO ×2 (09:09→20:45)
[2022-04-03] MEDS: Tamsulosin HCl 0.4 MG Capsule PO ×2 (09:09→20:45)
[2022-04-03] MEDS: Furosemide 40 MG Tablet PO (09:09)
[2022-04-03] MEDS: Omega-3 Acid Ethyl Esters 1 GM Capsule PO ×2 (09:09→20:44)
[2022-04-03] MEDS: Sertraline 100 MG Tablet 150 MG PO (09:10)
[2022-04-03] MEDS: amLODIPine 10 MG Tablet PO (09:10)
[2022-04-03] MEDS: Nortriptyline 10 MG Capsule 30 MG PO (09:10)
[2022-04-03] MEDS: Clopidogrel Bisulfate 75 MG Tablet PO (09:10)
[2022-04-03] MEDS: Lisinopril 40 MG Tablet PO (09:10)
[2022-04-03] MEDS: Magnesium Chloride 64 MG Delay Rel.Tablet 128 MG PO ×2 (09:10→20:44)
[2022-04-03] MEDS: Modafinil 200 MG Tablet PO (09:18)
[2022-04-03] MEDS: Pregabalin 50 MG Capsule 100 MG PO ×2 (09:18→20:43)
[2022-04-03 11:50] LABS: Bedside Glucose 213 mg/dL (74-106)
[2022-04-03 14:07] VITALS: BMI 32.3
[2022-04-03 17:05] LABS: Bedside Glucose 84 mg/dL (74-106)
[2022-04-03] MEDS: Insulin U-500 UNITS/ML PEN 50 UNITS SC (17:09)
[2022-04-03 19:17] VITALS: BP 150/82; PULSE 70; RESP 17; TEMP 36.4; O2SAT 95
[2022-04-03] MEDS: 0.9% Saline Lock 10 ML Syringe IV (20:43)
[2022-04-03] MEDS: Senna/Docusate Sodium 1 Tablet 2 TABLET PO (20:44)
[2022-04-03 20:45] VITALS: PULSE 76
[2022-04-03] MEDS: Atorvastatin Calcium 40 MG Tablet PO (20:45)
[2022-04-03 21:20] LABS: Bedside Glucose 85 mg/dL (74-106)
[2022-04-03 21:22] VITALS: BMI 32.3
[2022-04-03 21:26] VITALS: PULSE 68; RESP 16; O2SAT 95
[2022-04-04] MEDS: Enoxaparin 40 MG/0.4 ML Syringe SC (05:19)
[2022-04-04 06:56] LABS: Bedside Glucose 100 mg/dL (74-106)
[2022-04-04 07:30] VITALS: BP 135/71; PULSE 59; RESP 17; TEMP 36.3; O2SAT 95
[2022-04-04] MEDS: Insulin U-500 UNITS/ML PEN 40 UNITS SC ×2 (08:11→13:29)
[2022-04-04] MEDS: Potassium Chloride Oral Tablet 20 MEQ PO ×2 (08:11→17:18)
[2022-04-04 08:12] VITALS: PULSE 59
[2022-04-04] MEDS: Metoprolol Tartrate 100 MG Tablet 150 MG PO ×2 (08:12→22:22)
[2022-04-04] MEDS: Calcium (Elemental) 500 MG Tablet PO ×2 (08:12→17:18)
[2022-04-04] MEDS: busPIRone 5 MG Tablet 10 MG PO ×2 (08:12→22:22)
[2022-04-04] MEDS: Nortriptyline 10 MG Capsule 30 MG PO (08:14)
[2022-04-04] MEDS: amLODIPine 10 MG Tablet PO (08:14)
[2022-04-04] MEDS: Sertraline 100 MG Tablet 150 MG PO (08:15)
[2022-04-04] MEDS: Magnesium Chloride 64 MG Delay Rel.Tablet 128 MG PO ×2 (08:16→22:23)
[2022-04-04] MEDS: Lisinopril 40 MG Tablet PO (08:17)
[2022-04-04] MEDS: Aspirin 81 MG TAB.CHEW PO (08:17)
[2022-04-04] MEDS: metFORMIN HCl 500 MG Tablet PO ×2 (08:17→17:18)
[2022-04-04] MEDS: Cholecalciferol (VIT D3) 25 MCG TABLET (1,000 UNITS) PO ×2 (08:17→17:18)
[2022-04-04] MEDS: Clopidogrel Bisulfate 75 MG Tablet PO (08:18)
[2022-04-04] MEDS: Omega-3 Acid Ethyl Esters 1 GM Capsule PO ×2 (08:18→22:23)
[2022-04-04] MEDS: Tamsulosin HCl 0.4 MG Capsule PO ×2 (08:18→22:23)
[2022-04-04] MEDS: Furosemide 40 MG Tablet PO (08:18)
[2022-04-04] MEDS: Pregabalin 50 MG Capsule 100 MG PO ×2 (08:22→22:23)
[2022-04-04] MEDS: Modafinil 200 MG Tablet PO (08:22)
--- NOTE | 2022-04-04 11:04 | CASEMGMT ---
Social Work Spoke with pt to update on insurance NRD 04/09 and inquired about housing. Pt stated there still isn't anything secured, but his is working on it, and I'm not going to stress out about it because I'm pretty sure the court isn't going to like knowing why they're kicking us out of the house. They can work around us until we find a new place. SW offered ongoing assistance and wants to ensure there is a discharge location when insurance cuts. Pt reiterated he has been in contact with [facility] and will be returning to his house until they secure another house. SW acknowledged. Taylor Lomeli ,DRUM STOCK CLERK SENIOR MECHANICAL ENGINEER
[2022-04-04 12:15] LABS: Bedside Glucose 153 mg/dL (74-106)
--- NOTE | 2022-04-04 16:27 | PN_ITS ---
Subjective Subjective Afebrile VSS Maintaining appropriate oxygen saturation on RA Oral intake is good The blood sugar record was reviewed and blood sugars are now under better control with the transition to U5 100 insulin with meals. No hypoglycemia. Discussed with nursing - no problems that need addressed Reviewed the PT/OT/ST notes Medication list reviewed. Breathing has improved with diuresis. He denies orthopnea. No cephalgia and no lightheadedness. No CP, palpitations, abd pain, dysuria, calf pain. Objective Data Objective Data Vital Signs: Vital Signs Temp Pulse Resp BP Pulse Ox O2 Del Method 97.3 F L 59 L 17 135/71 H 95 Room Air 04/04/22 07:30 04/04/22 08:12 04/04/22 07:30 04/04/22 07:30 04/04/22 07:30 04/04/22 07:30 Oxygen Delivery Method Room Air Weight: 202 lb 2.622 oz Body Mass Index (BMI) 32.3 Intake & Output: Intake and Output for Last 24 Hours 04/02/22 04/03/22 04/04/22 23:59 23:59 23:59 Intake Total 1050 / 1050 560 / 560 960 / 960 Output Total 1450 / 1450 1100 / 1100 350 / 350 Balance -400 / -400 -540 / -540 610 / 610 Lab / Micro Data Result Diagrams: 04/05/22 23:16 Labs: Laboratory Results - last 24 hr 04/03/22 16:45: POC Glucose 84 04/03/22 21:03: POC Glucose 85 04/04/22 06:33: POC Glucose 100 04/04/22 11:55: POC Glucose 153 H Physical Exam Const alert, oriented x3 and no apparent distress Constitutional Narrative: General Appearance: cooperative and well developed HEENT moist oral mucous membranes Eyes Eyes Narrative: He tells me that he has blurred vision in the R eye and that he needs to have a laser done to stop the bleeding. Neck General: trachea midline Resp normal respiratory effort, normal air movement and clear to auscultation bilaterally Resp Narrative: few coarse crackles in the bases and BS's in the bases are diminished. I encouraged him to do 10 breaths on the IS while he is awake. Effort and Inspection: Negative for tachypneic Cardio regular rate, regular rhythm and no gallops Cardio Narrative: Heart sounds are distant. I did not appreciate any MM's or gallops. He had no ectopy. GI normal to inspection, nondistended, normoactive bowel sounds, soft to palpation and non-tender GI Narrative: No guarding with palpation. Inspection: Negative for abdominal distention Extremity no calf tenderness Extremity Narrative: He has pitting edema of both ankles and some pitting in the posterior thighs BL. No pitting in the flanks. He has non-pitting edema of the Left hand....but, not the R. He has weakness on the left side from the stroke and may not be moving it as much. General Extremity: edema bilateral (trace ankle edema. TEDS are in place. ) Skin General Skin Exam: no breakdown Rashes: no rashes Neuro Neuro Narrative: Increased strength in the LUE now and in the leg. MRS is down to a 3 from a 5 at admission to rehab. He is walking up to 80 feet with a hemiwalker and also ambulated 65 feet and 80 feet with a Rollator at [facility]. Speech is improved and he rarely slurs now. He is now able to do biceps curls with the LUE now.......but, with the increased activity he is c/o shoulder pain. Coordination / Balance: [id number] test normal and [id number] test normal Speech: speech normal Psych cooperative and affect normal Appearance: appropriate Activity / Motor Behavior: Negative for restless Assessment & Plan Assessment/Plan (1) Debility: PLAN: Continue therapy. (2) Right pontine stroke: PLAN: Today for education we discussed the risk factors for strokes and heart attacks and what can be done to control the risk factors and prevent cardiovascu lar events going forward. 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 He will need to follow-up with his mail messenger contractor at the [place] post discharge. (6) DM2 (diabetes mellitus, type 2): QUALIFIERS: Diabetes mellitus complication status: without complication Diabetes mellitus regional intermodal truck driver insulin use: with alf use Qualified Code(s): E11.9 - Type 2 diabetes mellitus without complications; Z79.4 - regional intermodal truck driver (current) use of insulin PLAN: Diabetes has not been well controlled as an outpatient. He has been using U5 100 insulin at home and takes 80 units in the morning, 80 units at lunchtime and 100 units with breakfast. (7) Cardiomyopathy: PLAN: Etiology? (8) Hypomagnesemia: PLAN: Supplement and recheck the magnesium level next week. Charges/Coding Visit Charges Inpatient E&M: 61150 Subs Hosp L2
[2022-04-04 17:00] VITALS: BMI 32.3
[2022-04-04] MEDS: Insulin U-500 UNITS/ML PEN 50 UNITS SC (17:18)
[2022-04-04 17:50] LABS: Bedside Glucose 83 mg/dL (74-106)
[2022-04-04 19:26] VITALS: BMI 32.3
[2022-04-04 22:21] VITALS: BP 146/76; PULSE 70; RESP 16; TEMP 36.6; O2SAT 95
[2022-04-04 22:22] VITALS: PULSE 70
[2022-04-04] MEDS: Atorvastatin Calcium 40 MG Tablet PO (22:23)
[2022-04-04 22:50] LABS: Bedside Glucose 89 mg/dL (74-106)
--- NOTE | 2022-04-05 01:36 | NURSING ---
Pt had not yet voided on this nurse's shift. This nurse bladder scanned patient for 460ml. Patient stated he would try to void in urinal. Patient voided 225ml in urinal and stated Ok, thats half, that is good for now. This nurse informed patient to try to urinate again before 7a and patient agreed. Will continue to monitor.
[2022-04-05] MEDS: Enoxaparin 40 MG/0.4 ML Syringe SC (06:09)
--- NOTE | 2022-04-05 06:29 | NURSING ---
Pt did not void again on this nurse's shift. Patient refused to be bladder scanned at this time. Stated he will try and use the bathroom after breakfast.
--- NOTE | 2022-04-05 06:46 | NURSING ---
pt blood sugar this am was 56. patient asymptomatic and was given orange juice. patient rechecked and blood sugar was 114.
[2022-04-05 07:05] LABS: Bedside Glucose 56 mg/dL (74-106)
[2022-04-05 07:06] LABS: Bedside Glucose 114 mg/dL (74-106)
[2022-04-05] MEDS: Magnesium Chloride 64 MG Delay Rel.Tablet 128 MG PO ×2 (08:22→20:28)
[2022-04-05] MEDS: Nortriptyline 10 MG Capsule 30 MG PO (08:23)
[2022-04-05] MEDS: Clopidogrel Bisulfate 75 MG Tablet PO (08:23)
[2022-04-05] MEDS: Cholecalciferol (VIT D3) 25 MCG TABLET (1,000 UNITS) PO ×2 (08:23→17:05)
[2022-04-05] MEDS: Omega-3 Acid Ethyl Esters 1 GM Capsule PO ×2 (08:23→20:28)
[2022-04-05] MEDS: Tamsulosin HCl 0.4 MG Capsule PO ×2 (08:23→20:30)
[2022-04-05] MEDS: Senna/Docusate Sodium 1 Tablet 2 TABLET PO ×2 (08:23→20:28)
[2022-04-05] MEDS: busPIRone 5 MG Tablet 10 MG PO ×2 (08:23→20:29)
[2022-04-05] MEDS: Potassium Chloride Oral Tablet 20 MEQ PO ×2 (08:23→17:06)
[2022-04-05] MEDS: Aspirin 81 MG TAB.CHEW PO (08:23)
[2022-04-05] MEDS: Calcium (Elemental) 500 MG Tablet PO ×2 (08:23→17:05)
[2022-04-05] MEDS: Sertraline 100 MG Tablet 150 MG PO (08:24)
[2022-04-05] MEDS: Lisinopril 40 MG Tablet PO (08:24)
[2022-04-05] MEDS: Furosemide 40 MG Tablet PO (08:24)
[2022-04-05] MEDS: amLODIPine 10 MG Tablet PO (08:24)
[2022-04-05] MEDS: metFORMIN HCl 500 MG Tablet PO ×2 (08:24→17:07)
[2022-04-05 08:25] VITALS: PULSE 69
[2022-04-05] MEDS: Metoprolol Tartrate 100 MG Tablet 150 MG PO ×2 (08:25→20:28)
[2022-04-05] MEDS: Insulin U-500 UNITS/ML PEN 40 UNITS SC ×2 (08:26→11:57)
[2022-04-05 08:28] VITALS: BP 144/79; PULSE 63; RESP 16; TEMP 36.6; O2SAT 98
[2022-04-05] MEDS: Modafinil 200 MG Tablet PO (08:33)
[2022-04-05] MEDS: Pregabalin 50 MG Capsule 100 MG PO ×2 (08:34→20:28)
[2022-04-05 10:00] VITALS: PULSE 69; RESP 18; O2SAT 97
[2022-04-05 10:10] VITALS: BMI 32.3
[2022-04-05 11:36] LABS: Bedside Glucose 182 mg/dL (74-106)
[2022-04-05 16:35] LABS: Bedside Glucose 149 mg/dL (74-106)
[2022-04-05] MEDS: Insulin U-500 UNITS/ML PEN 50 UNITS SC (17:06)
[2022-04-05 19:18] VITALS: BP 128/68; PULSE 71; RESP 20; TEMP 36.5; O2SAT 97
[2022-04-05 20:25] VITALS: O2SAT 97
[2022-04-05 20:28] VITALS: BP 128/68; PULSE 71
[2022-04-05] MEDS: Atorvastatin Calcium 40 MG Tablet PO (20:29)
--- NOTE | 2022-04-05 22:54 | NURSING ---
Pt blood sugar 42, awakens easily, alert and oriented x3, skin warm and dry, pt denies feeling dizzy, shaky, lethargic. Rechecked on different finger, 45. Pt given orange juice with sugar, peanut butter and crackers, llab called for glucose lab backup per policy.
[2022-04-05 23:33] LABS: Glucose 60 mg/dL (74-106)
--- NOTE | 2022-04-05 23:35 | NURSING ---
Blood sugar up to 79. Pt sitting up in bed, ate another peanut butter and yogurt. Still denies symptoms, states usually at home when his blood sugar was low, he would get dizzy and have slurred speech. None noted at this time. Will recheck blood sugar at 0300 am.
[2022-04-05 23:55] LABS: Bedside Glucose 56 mg/dL (74-106)
[2022-04-05 23:55] LABS: Bedside Glucose 79 mg/dL (74-106)
[2022-04-06 03:26] LABS: Bedside Glucose 92 mg/dL (74-106)
[2022-04-06] MEDS: Enoxaparin 40 MG/0.4 ML Syringe SC (05:20)
[2022-04-06 07:06] LABS: Bedside Glucose 81 mg/dL (74-106)
[2022-04-06 08:31] VITALS: BP 147/80; PULSE 67; RESP 18; TEMP 36.4; O2SAT 96
[2022-04-06] MEDS: Magnesium Chloride 64 MG Delay Rel.Tablet 128 MG PO ×2 (08:38→21:29)
[2022-04-06] MEDS: Potassium Chloride Oral Tablet 20 MEQ PO ×2 (08:38→16:39)
[2022-04-06] MEDS: Clopidogrel Bisulfate 75 MG Tablet PO (08:38)
[2022-04-06] MEDS: Omega-3 Acid Ethyl Esters 1 GM Capsule PO ×2 (08:38→21:29)
[2022-04-06 08:39] VITALS: PULSE 67
[2022-04-06] MEDS: Calcium (Elemental) 500 MG Tablet PO ×2 (08:39→16:39)
[2022-04-06] MEDS: Metoprolol Tartrate 100 MG Tablet 150 MG PO ×2 (08:39→21:29)
[2022-04-06] MEDS: Tamsulosin HCl 0.4 MG Capsule PO ×2 (08:39→21:30)
[2022-04-06] MEDS: Cholecalciferol (VIT D3) 25 MCG TABLET (1,000 UNITS) PO ×2 (08:39→16:39)
[2022-04-06] MEDS: Aspirin 81 MG TAB.CHEW PO (08:39)
[2022-04-06] MEDS: Nortriptyline 10 MG Capsule 30 MG PO (08:39)
[2022-04-06] MEDS: Insulin U-500 UNITS/ML PEN 40 UNITS SC ×3 (08:41→16:40)
[2022-04-06] MEDS: Pregabalin 50 MG Capsule 100 MG PO ×2 (08:46→21:29)
[2022-04-06] MEDS: Modafinil 200 MG Tablet PO (08:46)
[2022-04-06] MEDS: busPIRone 5 MG Tablet 10 MG PO ×2 (08:48→21:30)
[2022-04-06] MEDS: metFORMIN HCl 500 MG Tablet PO ×2 (08:48→16:39)
[2022-04-06] MEDS: Senna/Docusate Sodium 1 Tablet 2 TABLET PO ×2 (08:49→21:29)
[2022-04-06] MEDS: Sertraline 100 MG Tablet 150 MG PO (08:50)
[2022-04-06] MEDS: Furosemide 40 MG Tablet PO (08:51)
[2022-04-06] MEDS: Lisinopril 40 MG Tablet PO (08:51)
[2022-04-06] MEDS: amLODIPine 10 MG Tablet PO (08:52)
--- NOTE | 2022-04-06 09:00 | NURSING ---
Dr. Dee aware of blood sugar readings. NNO's.
[2022-04-06 11:25] LABS: Bedside Glucose 199 mg/dL (74-106)
[2022-04-06 13:35] VITALS: BMI 32.3
[2022-04-06 16:21] LABS: Bedside Glucose 145 mg/dL (74-106)
[2022-04-06] MEDS: Magnesium Hydroxide 30 ML UDC PO (16:48)
[2022-04-06 19:06] VITALS: BP 139/77; PULSE 60; RESP 18; TEMP 36.8; O2SAT 95
[2022-04-06 21:29] VITALS: PULSE 60
[2022-04-06] MEDS: Atorvastatin Calcium 40 MG Tablet PO (21:30)
[2022-04-06 21:36] VITALS: BMI 32.3
[2022-04-06 21:45] LABS: Bedside Glucose 60 mg/dL (74-106)
[2022-04-06 22:00] VITALS: RESP 17; O2SAT 95
[2022-04-06 22:16] LABS: Bedside Glucose 70 mg/dL (74-106)
[2022-04-06 23:25] LABS: Bedside Glucose 103 mg/dL (74-106)
[2022-04-07 03:21] LABS: Bedside Glucose 123 mg/dL (74-106)
[2022-04-07] MEDS: Enoxaparin 40 MG/0.4 ML Syringe SC (05:56)
[2022-04-07] MEDS: Bisacodyl 10 MG Suppository RC (06:04)
[2022-04-07 06:40] LABS: Bedside Glucose 136 mg/dL (74-106)
[2022-04-07] MEDS: Omega-3 Acid Ethyl Esters 1 GM Capsule PO ×2 (07:41→22:07)
[2022-04-07] MEDS: amLODIPine 10 MG Tablet PO (07:41)
[2022-04-07] MEDS: Clopidogrel Bisulfate 75 MG Tablet PO (07:41)
[2022-04-07] MEDS: Cholecalciferol (VIT D3) 25 MCG TABLET (1,000 UNITS) PO ×2 (07:41→16:42)
[2022-04-07] MEDS: Magnesium Chloride 64 MG Delay Rel.Tablet 128 MG PO ×2 (07:41→22:07)
[2022-04-07] MEDS: Aspirin 81 MG TAB.CHEW PO (07:41)
[2022-04-07] MEDS: busPIRone 5 MG Tablet 10 MG PO ×2 (07:41→22:07)
[2022-04-07 07:42] VITALS: PULSE 80
[2022-04-07] MEDS: metFORMIN HCl 500 MG Tablet PO ×2 (07:42→16:42)
[2022-04-07] MEDS: Sertraline 100 MG Tablet 150 MG PO (07:42)
[2022-04-07] MEDS: Potassium Chloride Oral Tablet 20 MEQ PO ×2 (07:42→16:42)
[2022-04-07] MEDS: Senna/Docusate Sodium 1 Tablet 2 TABLET PO ×2 (07:42→22:07)
[2022-04-07] MEDS: Metoprolol Tartrate 100 MG Tablet 150 MG PO ×2 (07:42→22:12)
[2022-04-07] MEDS: Modafinil 200 MG Tablet PO (07:42)
[2022-04-07] MEDS: Furosemide 40 MG Tablet PO (07:43)
[2022-04-07] MEDS: Nortriptyline 10 MG Capsule 30 MG PO (07:43)
[2022-04-07] MEDS: Insulin U-500 UNITS/ML PEN 40 UNITS SC ×3 (07:44→16:42)
[2022-04-07 10:00] VITALS: BP 134/72; PULSE 65; RESP 16; TEMP 36.4; O2SAT 94
[2022-04-07] MEDS: Calcium (Elemental) 500 MG Tablet PO ×2 (10:32→16:41)
[2022-04-07] MEDS: Lisinopril 40 MG Tablet PO (10:32)
[2022-04-07] MEDS: Pregabalin 50 MG Capsule 100 MG PO ×2 (10:32→22:36)
[2022-04-07] MEDS: Tamsulosin HCl 0.4 MG Capsule PO ×2 (10:32→22:07)
[2022-04-07 11:35] LABS: Bedside Glucose 192 mg/dL (74-106)
[2022-04-07 13:05] VITALS: BMI 32.3
[2022-04-07 16:25] LABS: Bedside Glucose 163 mg/dL (74-106)
[2022-04-07 19:35] VITALS: BP 134/77; PULSE 74; RESP 16; TEMP 36.8; O2SAT 98
[2022-04-07 21:41] LABS: Bedside Glucose 152 mg/dL (74-106)
[2022-04-07 21:53] VITALS: BMI 32.3
[2022-04-07 22:00] VITALS: PULSE 74; RESP 15; O2SAT 96
[2022-04-07] MEDS: Atorvastatin Calcium 40 MG Tablet PO (22:07)
[2022-04-07 22:12] VITALS: PULSE 74
[2022-04-08 03:36] LABS: Bedside Glucose 95 mg/dL (74-106)
[2022-04-08] MEDS: Enoxaparin 40 MG/0.4 ML Syringe SC (05:41)
[2022-04-08 06:56] LABS: Bedside Glucose 129 mg/dL (74-106)
[2022-04-08 07:19] VITALS: BP 149/82; PULSE 72; RESP 17; TEMP 35.7; O2SAT 94
[2022-04-08] MEDS: Clopidogrel Bisulfate 75 MG Tablet PO (07:33)
[2022-04-08] MEDS: Magnesium Chloride 64 MG Delay Rel.Tablet 128 MG PO ×2 (07:33→21:01)
[2022-04-08] MEDS: Calcium (Elemental) 500 MG Tablet PO ×2 (07:33→17:04)
[2022-04-08] MEDS: busPIRone 5 MG Tablet 10 MG PO ×2 (07:34→21:00)
[2022-04-08] MEDS: Senna/Docusate Sodium 1 Tablet 2 TABLET PO ×2 (07:34→21:02)
[2022-04-08] MEDS: Potassium Chloride Oral Tablet 20 MEQ PO ×2 (07:34→17:04)
[2022-04-08] MEDS: Aspirin 81 MG TAB.CHEW PO (07:34)
[2022-04-08] MEDS: Omega-3 Acid Ethyl Esters 1 GM Capsule PO ×2 (07:34→21:01)
[2022-04-08] MEDS: Furosemide 40 MG Tablet PO (07:34)
[2022-04-08] MEDS: Lisinopril 40 MG Tablet PO (07:34)
[2022-04-08] MEDS: Sertraline 100 MG Tablet 150 MG PO (07:36)
[2022-04-08] MEDS: metFORMIN HCl 500 MG Tablet PO ×2 (07:36→17:04)
[2022-04-08] MEDS: Insulin U-500 UNITS/ML PEN 40 UNITS SC ×3 (07:37→17:06)
[2022-04-08] MEDS: amLODIPine 10 MG Tablet PO (07:39)
[2022-04-08] MEDS: Cholecalciferol (VIT D3) 25 MCG TABLET (1,000 UNITS) PO ×2 (07:40→17:03)
[2022-04-08] MEDS: Nortriptyline 10 MG Capsule 30 MG PO (07:40)
[2022-04-08] MEDS: Modafinil 200 MG Tablet PO (07:41)
[2022-04-08 08:36] LABS: Bedside Glucose 42 mg/dL (74-106)
[2022-04-08 08:36] LABS: Bedside Glucose 45 mg/dL (74-106)
[2022-04-08] MEDS: Pregabalin 50 MG Capsule 100 MG PO ×2 (10:31→21:00)
[2022-04-08] MEDS: Tamsulosin HCl 0.4 MG Capsule PO ×2 (10:31→21:01)
[2022-04-08 11:47] VITALS: PULSE 77
[2022-04-08] MEDS: Metoprolol Tartrate 100 MG Tablet 150 MG PO ×2 (11:47→21:01)
[2022-04-08 12:10] LABS: Bedside Glucose 166 mg/dL (74-106)
--- NOTE | 2022-04-08 12:18 | PN_ITS ---
Subjective Subjective Clay was seen on team rounds today. No family was present or available by phone. afebrile VSS Maintaining appropriate oxygen saturation on RA Oral intake is good The blood sugar record was reviewed. He is currently taking 40 units of U5 100 insulin 3 times daily with meals. The dose at suppertime had to be decreased to 40 from 58 due to hypoglycemia at night. The blood sugar last night at 3 AM was 95 and his fasting this morning was 129. Discussed with nursing - no problems that need addressed Reviewed the PT/OT/ST notes Medication list reviewed. He is feeling good. He sent the cheese balls and the cheez its home with family. He denies orthopnea. He denies PERALTA. Clay denies lightheadedness, chest pain, palpitations, nausea, vomiting, abdominal pain, dysuria, calf pain. He is sleeping well at night and he has been compliant with the hospital diet. I pointed out to him that he is on < 1/2 the insulin he was on at home and he knows it is because he was eating chips and soda and had a poor diet at home. We discussed the goal for his HGBA1C and he now understands that if he wants to prevent other cardiovascular events going forward he needs to keep the HGBA1C < 7.0. Objective Data Objective Data Vital Signs: Vital Signs Temp Pulse Resp BP Pulse Ox O2 Del Method 96.2 F L 77 17 149/82 H 94 Room Air 04/08/22 07:19 04/08/22 11:47 04/08/22 07:19 04/08/22 07:19 04/08/22 07:19 04/08/22 07:19 Oxygen Delivery Method Room Air Weight: 205 lb 0.478 oz Body Mass Index (BMI) 32.3 Intake & Output: Intake and Output for Last 24 Hours 04/06/22 04/07/22 04/08/22 23:59 23:59 23:59 Intake Total 1850 / 1850 1250 / 1250 Output Total 1100 / 1100 900 / 900 450 / 450 Balance 750 / 750 350 / 350 -450 / -450 Lab / Micro Data Result Diagrams: 04/05/22 23:16 Labs: Laboratory Results - last 24 hr 04/05/22 22:48: POC Glucose 42 L* 04/05/22 22:52: POC Glucose 45 L 04/07/22 16:06: POC Glucose 163 H 04/07/22 21:00: POC Glucose 152 H 04/08/22 03:12: POC Glucose 95 04/08/22 06:34: POC Glucose 129 H 04/08/22 11:35: POC Glucose 166 H Physical Exam Const alert, oriented x3 and no apparent distress Constitutional Narrative: Sitting in the recliner at the bedside and he is in NAD. He is pleasant and cooperative. General Appearance: cooperative HEENT moist oral mucous membranes Resp normal respiratory effort Resp Narrative: Better air exchange in the bases today. He has been using the IS. No cough. Lungs are CTA after several deep breaths. He had a few crackles in the left base initially but, they completely resolved by the end of the exam. No conversational dyspnea Effort and Inspection: Negative for tachypneic Cardio regular rate, regular rhythm and no gallops Cardio Narrative: Heart sounds are distant. I did not appreciate any MM's or gallops. He had no ectopy. GI normal to inspection, nondistended, normoactive bowel sounds and non-tender GI Narrative: No guarding with palpation. Extremity General Extremity: edema bilateral (trace ankle edema. TEDS are in place. ) Skin General Skin Exam: no breakdown Rashes: no rashes Neuro Neuro Narrative: Increased strength in the LUE now and in the leg. MRS is down to a 3 from a 5 at admission to rehab. He is walking up to 80 feet with a hemiwalker and also ambulated 65 feet and 80 feet with a Rollator at [facility]. Speech is improved and he rarely slurs now. He is now able to do biceps curls with the LUE now.......but, with the increased activity he is c/o shoulder pain. 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 Continue therapy. He is making good progress and will be able to go home at discharge rather than onto an SNF. 2. Continue compounded arthritis cream to the shoulder. 3. Check a BMP, magnesium and an H&H in the AM. 4. Educated him today on the goals for HGBA1C, LDL and BP to help prevent Strokes and heart attacks going forward. Charges/Coding Visit Charges Inpatient E&M: 05604 Subs Hosp L2
--- NOTE | 2022-04-08 13:07 | CASEMGMT ---
Social Work IDT met with patient for Team meeting. Discussed patient's progress in PT/OT/ST/SN. Educated to [facility] insurance with NRD 04/08 and continued stay is not guaranteed with each review. Pts goal is to return home with and son. SW to order [facility] PT/OT/ST/SN/SW and luiza, 3-in-1 commode at [place]. SW continued to offer to with housing assistance, but pt is adamant about returning to his current home until a new one is properly secured. SW to continue to follow. Taylor Lomeli, INSEMINATOR DYNAMITE RECLAIMER
[2022-04-08 13:39] VITALS: BMI 32.3
[2022-04-08 16:20] LABS: Bedside Glucose 82 mg/dL (74-106)
[2022-04-08 19:51] VITALS: BP 131/80; PULSE 62; RESP 14; TEMP 36.7; O2SAT 93
[2022-04-08 20:58] VITALS: BMI 32.3
[2022-04-08] MEDS: Arthritis Pain Compound 60 CLICK TUBE TOPICAL (21:00)
[2022-04-08 21:01] VITALS: PULSE 63
[2022-04-08] MEDS: Atorvastatin Calcium 40 MG Tablet PO (21:01)
[2022-04-08 22:00] VITALS: PULSE 73; RESP 15; O2SAT 95
[2022-04-08 22:26] LABS: Bedside Glucose 92 mg/dL (74-106)
[2022-04-09 03:05] LABS: Bedside Glucose 146 mg/dL (74-106)
[2022-04-09] MEDS: Enoxaparin 40 MG/0.4 ML Syringe SC (05:44)
[2022-04-09 06:15] LABS: Bedside Glucose 177 mg/dL (74-106)
[2022-04-09 06:18] LABS: ALB/GLOB Ratio 0.8 RATIO (0.9-2.4); AST(SGOT) 37 U/L (15-37); Alanine Aminotransfer ALT/SGPT 53 U/L (16-61); Albumin, Serum 3.3 g/dL (3.2-5.0); Alkaline Phosphatase 153 U/L (45-117); Anion Gap 4 (5-15); BUN 21 mg/dL (7-18); BUN/Creat Ratio 19.1 RATIO (10-20); Calcium,Total 8.6 mg/dL (8.5-10.1); Chloride 104 mmol/L (98-107); EST Glomerular Filtration Rate 71 mL/min (>60); Est Glom Filt Rate - Afr Amer 86 mL/min (>60); Estimated Creatinine Clearance 59.61 ml/min; Globulin 3.9 g/dL (2.2-4.2); Glucose 166 mg/dL (74-106); Magnesium 1.9 mg/dL (1.6-2.6); Potassium 3.9 mmol/L (3.5-5.1); Protein, Total 7.2 g/dL (6.4-8.2); Sodium Level 138 mmol/L (136-145)
[2022-04-09 07:21] VITALS: BP 130/69; PULSE 71; RESP 18; TEMP 37.1; O2SAT 97
[2022-04-09] MEDS: Insulin U-500 UNITS/ML PEN 40 UNITS SC ×2 (08:44→12:14)
[2022-04-09] MEDS: Nortriptyline 10 MG Capsule 30 MG PO (08:44)
[2022-04-09] MEDS: Arthritis Pain Compound 60 CLICK TUBE TOPICAL ×2 (08:44→22:14)
[2022-04-09] MEDS: Cholecalciferol (VIT D3) 25 MCG TABLET (1,000 UNITS) PO ×2 (08:45→18:33)
[2022-04-09] MEDS: busPIRone 5 MG Tablet 10 MG PO ×2 (08:45→22:19)
[2022-04-09] MEDS: Sertraline 100 MG Tablet 150 MG PO (08:45)
[2022-04-09] MEDS: Magnesium Chloride 64 MG Delay Rel.Tablet 128 MG PO ×2 (08:45→22:20)
[2022-04-09] MEDS: Omega-3 Acid Ethyl Esters 1 GM Capsule PO ×2 (08:45→22:20)
[2022-04-09] MEDS: Tamsulosin HCl 0.4 MG Capsule PO ×2 (08:46→22:19)
[2022-04-09] MEDS: metFORMIN HCl 500 MG Tablet PO ×2 (08:46→18:32)
[2022-04-09] MEDS: Potassium Chloride Oral Tablet 20 MEQ PO ×2 (08:46→18:33)
[2022-04-09] MEDS: Clopidogrel Bisulfate 75 MG Tablet PO (08:46)
[2022-04-09] MEDS: amLODIPine 10 MG Tablet PO (08:46)
[2022-04-09] MEDS: Lisinopril 40 MG Tablet PO (08:46)
[2022-04-09] MEDS: Calcium (Elemental) 500 MG Tablet PO ×2 (08:46→18:33)
[2022-04-09] MEDS: Furosemide 40 MG Tablet PO (08:46)
[2022-04-09] MEDS: Aspirin 81 MG TAB.CHEW PO (08:46)
[2022-04-09 08:47] VITALS: PULSE 71
[2022-04-09] MEDS: Metoprolol Tartrate 100 MG Tablet 150 MG PO ×2 (08:47→22:19)
[2022-04-09] MEDS: Pregabalin 50 MG Capsule 100 MG PO ×2 (08:54→22:22)
[2022-04-09 12:15] LABS: Bedside Glucose 239 mg/dL (74-106)
[2022-04-09 15:54] VITALS: BMI 32.3
--- NOTE | 2022-04-09 16:26 | PN_ITS ---
Subjective Subjective Afebrile VSS Maintaining appropriate oxygen saturation on RA Oral intake is good Blood sugar record was reviewed. Fasting blood sugar today was 177. The BS at 2 AM was 146 and the fasting was 177. Lunch was 239. The Lunch sugar is always a little high. Discussed with nursing - no problems that need addressed Reviewed the PT/OT/ST notes Medication list reviewed. The BMP today shows potassium of 3.9 and a normal sodium. The BUN is stable at 21 and the creatinine is down to 1.1 from a high of 1.42 on 03/19/2022. Is now baseline. Magnesium is 1.9, up from 1.5 on 04/01/2022 with supplementation. LFTs are within normal limits with the exception of the alkaline phosphatase which is mildly elevated at 153. Clay denies orthopnea. He has no CP and no lightheadedness. Denies palpitations. PERALTA is getting better as his strength and endurance improve. Denies N/V/D/C/abd pain/dysuria. He has been sticking with the hospital diet most of the time and he is no longer eating cheez its and cheese balls. He has a better understanding of how salt causes CHF and ankle swelling. We have also talked about the goals for BP control, BS control and LDL several times. Objective Data Objective Data Vital Signs: Vital Signs Temp Pulse Resp BP Pulse Ox O2 Del Method 98.7 F 71 18 130/69 H 97 Room Air 04/09/22 07:21 04/09/22 08:47 04/09/22 07:21 04/09/22 07:21 04/09/22 07:21 04/09/22 07:21 Oxygen Delivery Method Room Air Weight: 205 lb 4.006 oz Body Mass Index (BMI) 32.3 Intake & Output: Intake and Output for Last 24 Hours 04/07/22 04/08/22 04/09/22 23:59 23:59 23:59 Intake Total 1250 / 1250 1660 / 1660 640 / 640 Output Total 900 / 900 1400 / 1400 Balance 350 / 350 260 / 260 640 / 640 Lab / Micro Data Result Diagrams: 04/09/22 18:26 04/15/22 05:50 Labs: Laboratory Results - last 24 hr 04/08/22 22:00: POC Glucose 92 04/09/22 02:44: POC Glucose 146 H 04/09/22 05:35: Sodium 138, Potassium 3.9, Chloride 104, Carbon Dioxide 30.0, Anion Gap 4 L, BUN 21 H, Creatinine 1.10, Estim Creat Clear Calc 59.61, Est GFR (MDRD) Af Amer 86, Est GFR (MDRD) Non-Af 71, BUN/Creatinine Ratio 19.1, Glucose 166 H, Calcium 8.6, Magnesium 1.9, Total Bilirubin 0.30, AST 37, ALT 53, Alkaline Phosphatase 153 H, Total Protein 7.2, Albumin 3.3, Globulin 3.9, Albumin/Globulin Ratio 0.8 L 04/09/22 05:53: POC Glucose 177 H 04/09/22 11:48: POC Glucose 239 H Physical Exam Const alert and no apparent distress Resp normal respiratory effort and clear to auscultation bilaterally Cardio regular rate, regular rhythm and no gallops GI normal to inspection, nondistended, normoactive bowel sounds and soft to palp ation Extremity no calf tenderness General Extremity: edema bilateral (mild ankle edema, TEDS are in place) Assessment & Plan Assessment/Plan (1) Debility: (2) Right pontine stroke: (3) Hyperlipidemia: (4) DM2 (diabetes mellitus, type 2): QUALIFIERS: Diabetes mellitus complication status: without complication Diabetes mellitus long term acute care registered nurse insulin use: with correction use Qualified Code(s): E11.9 - Type 2 diabetes mellitus without complications; Z79.4 - [facility] (current) use of insulin (5) Cardiomyopathy: PLAN: Etiology is ? at this time. Will need to follow up with his underwriting account representative at the [place] post [place]. (6) Acute systolic CHF (congestive heart failure): PLAN: Much better. will continue with Lasix 40 mg daily. PLAN: Plan 1. Continue therapy 2. Went over the goals for BS, BP and LDL management. 3. He had no significant vascular stenosis on the CTA of the head and neck.....etiology of the stroke? Had been taking ASA but, not consistently at home. He has a hx of CAD. May need to consider and event monitor going forward but, will defer to cardiology. Charges/Coding Visit Charges Inpatient E&M: 14578 Subs Hosp L2
[2022-04-09 17:40] LABS: Bedside Glucose 252 mg/dL (74-106)
[2022-04-09 18:32] LABS: Hematocrit 39.8 % (40-54); Hemoglobin 13.6 g/dL (13.0-16.5)
[2022-04-09 22:00] VITALS: BP 130/70; PULSE 72; RESP 16; TEMP 36.7; O2SAT 96
[2022-04-09 22:19] VITALS: PULSE 72
[2022-04-09] MEDS: Atorvastatin Calcium 40 MG Tablet PO (22:19)
[2022-04-09] MEDS: Senna/Docusate Sodium 1 Tablet 2 TABLET PO (22:20)
[2022-04-09 22:35] VITALS: BMI 32.3
[2022-04-09 22:50] LABS: Bedside Glucose 191 mg/dL (74-106)
--- NOTE | 2022-04-10 05:23 | NURSING ---
pt to the br and bright red blood was noted in the attends, this was a small amt. pt did report that he has some burning with urination at hs but no other sx. staff checked surrounding tissue and found no open areas rn was made aware .
--- NOTE | 2022-04-10 05:28 | NURSING ---
will hold lovenox until we talk to the doctor, rn aware
[2022-04-10] MEDS: Enoxaparin 40 MG/0.4 ML Syringe SC (06:45)
[2022-04-10 07:21] LABS: Bedside Glucose 130 mg/dL (74-106)
[2022-04-10 07:49] VITALS: BP 154/81; PULSE 67; RESP 18; TEMP 36.4; O2SAT 96
[2022-04-10] MEDS: Pregabalin 50 MG Capsule 100 MG PO ×2 (08:41→21:38)
[2022-04-10] MEDS: Modafinil 200 MG Tablet PO (08:41)
[2022-04-10 08:42] VITALS: PULSE 67
[2022-04-10] MEDS: busPIRone 5 MG Tablet 10 MG PO (08:42)
[2022-04-10] MEDS: Metoprolol Tartrate 100 MG Tablet 150 MG PO ×2 (08:42→21:39)
[2022-04-10] MEDS: Nortriptyline 10 MG Capsule 30 MG PO (08:42)
[2022-04-10] MEDS: Lisinopril 40 MG Tablet PO (08:43)
[2022-04-10] MEDS: Tamsulosin HCl 0.4 MG Capsule PO ×2 (08:43→21:38)
[2022-04-10] MEDS: Furosemide 40 MG Tablet PO (08:44)
[2022-04-10] MEDS: Sertraline 100 MG Tablet 150 MG PO (08:44)
[2022-04-10] MEDS: Magnesium Chloride 64 MG Delay Rel.Tablet 128 MG PO ×2 (08:44→21:39)
[2022-04-10] MEDS: Potassium Chloride Oral Tablet 20 MEQ PO ×2 (08:44→17:14)
[2022-04-10] MEDS: metFORMIN HCl 500 MG Tablet PO (08:44)
[2022-04-10] MEDS: Cholecalciferol (VIT D3) 25 MCG TABLET (1,000 UNITS) PO ×2 (08:45→17:14)
[2022-04-10] MEDS: Aspirin 81 MG TAB.CHEW PO (08:45)
[2022-04-10] MEDS: Clopidogrel Bisulfate 75 MG Tablet PO (08:45)
[2022-04-10] MEDS: Omega-3 Acid Ethyl Esters 1 GM Capsule PO ×2 (08:45→21:38)
[2022-04-10] MEDS: Calcium (Elemental) 500 MG Tablet PO ×2 (08:46→17:14)
[2022-04-10] MEDS: Insulin U-500 UNITS/ML PEN 6 UNITS SC (08:46)
[2022-04-10] MEDS: amLODIPine 10 MG Tablet PO (08:46)
[2022-04-10] MEDS: Arthritis Pain Compound 60 CLICK TUBE TOPICAL ×2 (08:49→21:39)
[2022-04-10] MEDS: Insulin U-500 UNITS/ML PEN 40 UNITS SC ×2 (12:26→17:15)
[2022-04-10 12:30] LABS: Bedside Glucose 254 mg/dL (74-106)
--- NOTE | 2022-04-10 13:14 | PN_ITS ---
Subjective Subjective Afebrile VSS Maintaining appropriate oxygen saturation on RA Oral intake is good Discussed with nursing - he had a spot of blood in the Depends today per therapy. Denies any hx of hemorrhoids and BM's are soft. Tells me that his urine is pale yellow and clear with no blood. Reviewed the PT/OT/ST notes Medication list reviewed. Denies dysuria, rectal pain, hx of hemorrhoids. Has not noticed any blood in the urine. No CP, SOB, palpitations, orthopnea, PERALTA. Objective Data Objective Data Vital Signs: Vital Signs Temp Pulse Resp BP Pulse Ox O2 Del Method 97.6 F L 67 18 154/81 H 96 Room Air 04/10/22 07:49 04/10/22 08:42 04/10/22 07:49 04/10/22 07:49 04/10/22 07:49 04/10/22 07:49 Oxygen Delivery Method Room Air Weight: 205 lb 4.006 oz Body Mass Index (BMI) 32.3 Intake & Output: Intake and Output for Last 24 Hours 04/08/22 04/09/22 04/10/22 23:59 23:59 23:59 Intake Total 1660 / 1660 1010 / 1010 480 / 480 Output Total 1400 / 1400 300 / 300 Balance 260 / 260 1010 / 1010 180 / 180 Lab / Micro Data Result Diagrams: 04/09/22 18:26 04/15/22 05:50 Labs: Laboratory Results - last 24 hr 04/09/22 17:17: POC Glucose 252 H 04/09/22 18:26: Hgb 13.6, Hct 39.8 L 04/09/22 22:29: POC Glucose 191 H 04/10/22 06:44: POC Glucose 130 H 04/10/22 12:02: POC Glucose 254 H Physical Exam Narrative No lesions or blood on the glans penis. No DC from the urethra. No scabs or openings of the skin in the scrotum or groin area. No external hemorrhoids. No masses in the rectum. Stool is light brown. Tells me that he had a little burning with urination today. Resp clear to auscultation bilaterally Cardio regular rate and regular rhythm GI normal to inspection, nondistended, normoactive bowel sounds and soft to palpation Extremity General Extremity: Negative for edema Assessment & Plan Assessment/Plan (1) Debility: (2) Right pontine stroke: (3) Cardiomyopathy: (4) DM2 (diabetes mellitus, type 2): QUALIFIERS: Diabetes mellitus complication status: without complication Diabetes mellitus intermediate insulin use: with intermediate use Qualified Code(s): E11.9 - Type 2 diabetes mellitus without complications; Z79.4 - FPC (current) use of insulin PLAN: Plan 1. UA today. 2. Increase the breakfast U-500 to 50 units and continue to monitor the accuchecks AC and HS. 3. Continue therapy. 4. Is the BID Metformin really necessary in controlling the BS's? Will hold for a few days and see if there is any difference in the blood sugar control. Charges/Coding Visit Charges Inpatient E&M: 53413 Subs Hosp L2
[2022-04-10 14:38] LABS: Bacteria 0 SEEN /hpf (None Seen); Mucous, Urine 0 SEEN /hpf (<or=2+); Red Blood Cells-Urine 0 SEEN /hpf (0-5); Squamous Epithelial Cells - UA 0 SEEN /hpf (0-5); White Blood Cells 0 SEEN /hpf (0-5)
[2022-04-10 14:40] LABS: Color, Urine Yellow (Yellow); Glucose, Dipstick 50 mg/dl (Normal); Ketone-Dipstick Negative (Negative); Leukocyte Esterase-Dipstick Negative /ul (Negative); Nitrite-Dipstick Negative (Negative); Occult Blood-Urine Negative /ul (Negative); Protein-Dipstick 15 mg/dl (Negative); Urine Bilirubin Dipstick Negative (Negative); Urine Clarity Clear (Clear); Urine Urobilinogen Normal (Normal)
[2022-04-10 16:16] VITALS: BMI 32.3
[2022-04-10 18:20] LABS: Bedside Glucose 360 mg/dL (74-106)
[2022-04-10 21:36] VITALS: BP 167/85; PULSE 70; RESP 17; TEMP 36.5; O2SAT 95
[2022-04-10 21:39] VITALS: BP 167/85; PULSE 70
[2022-04-10] MEDS: Atorvastatin Calcium 40 MG Tablet PO (21:39)
[2022-04-10 22:10] LABS: Bedside Glucose 272 mg/dL (74-106)
[2022-04-10 22:35] VITALS: O2SAT 95
[2022-04-11] MEDS: Enoxaparin 40 MG/0.4 ML Syringe SC (06:15)
[2022-04-11 07:15] LABS: Bedside Glucose 222 mg/dL (74-106)
[2022-04-11 09:03] VITALS: BP 148/79; PULSE 65
[2022-04-11] MEDS: Sertraline 100 MG Tablet 150 MG PO (09:03)
[2022-04-11] MEDS: Metoprolol Tartrate 100 MG Tablet 150 MG PO ×2 (09:03→21:27)
[2022-04-11] MEDS: Clopidogrel Bisulfate 75 MG Tablet PO (09:03)
[2022-04-11] MEDS: Furosemide 40 MG Tablet PO (09:03)
[2022-04-11] MEDS: Lisinopril 40 MG Tablet PO (09:03)
[2022-04-11] MEDS: Calcium (Elemental) 500 MG Tablet PO ×2 (09:04→17:07)
[2022-04-11] MEDS: Modafinil 200 MG Tablet PO (09:04)
[2022-04-11] MEDS: amLODIPine 10 MG Tablet PO (09:04)
[2022-04-11] MEDS: Tamsulosin HCl 0.4 MG Capsule PO ×2 (09:04→21:29)
[2022-04-11] MEDS: Nortriptyline 10 MG Capsule 30 MG PO (09:04)
[2022-04-11] MEDS: Magnesium Chloride 64 MG Delay Rel.Tablet 128 MG PO ×2 (09:04→21:29)
[2022-04-11] MEDS: Pregabalin 50 MG Capsule 100 MG PO ×2 (09:05→21:30)
[2022-04-11] MEDS: Omega-3 Acid Ethyl Esters 1 GM Capsule PO ×2 (09:05→21:30)
[2022-04-11] MEDS: Aspirin 81 MG TAB.CHEW PO (09:05)
[2022-04-11] MEDS: Cholecalciferol (VIT D3) 25 MCG TABLET (1,000 UNITS) PO ×2 (09:05→17:07)
[2022-04-11] MEDS: Potassium Chloride Oral Tablet 20 MEQ PO ×2 (09:05→17:07)
[2022-04-11] MEDS: Insulin U-500 UNITS/ML PEN 50 UNITS SC (09:05)
[2022-04-11] MEDS: Arthritis Pain Compound 60 CLICK TUBE TOPICAL ×2 (09:13→21:29)
[2022-04-11 09:16] VITALS: BP 148/79; PULSE 65; RESP 18; TEMP 36.6; O2SAT 96
[2022-04-11 11:36] LABS: Bedside Glucose 245 mg/dL (74-106)
[2022-04-11] MEDS: Insulin U-500 UNITS/ML PEN 40 UNITS SC ×2 (12:25→17:07)
[2022-04-11 13:30] VITALS: O2SAT 99
[2022-04-11 14:00] VITALS: BMI 32.3
[2022-04-11 17:00] LABS: Bedside Glucose 200 mg/dL (74-106)
[2022-04-11 21:27] VITALS: BP 168/87; PULSE 72
[2022-04-11] MEDS: Atorvastatin Calcium 40 MG Tablet PO (21:30)
[2022-04-11 22:00] VITALS: BP 168/87; PULSE 72; RESP 18; TEMP 36.7; O2SAT 98
[2022-04-11 22:25] LABS: Bedside Glucose 189 mg/dL (74-106)
--- NOTE | 2022-04-12 03:36 | NURSING ---
REVIEWED AND AGREE WITH MOLD SHEET CLEANER'S FUNCTIONAL ASSESSMENT AND HANDOFF CHARTING.
[2022-04-12] MEDS: Enoxaparin 40 MG/0.4 ML Syringe SC (05:29)
[2022-04-12 07:26] LABS: Bedside Glucose 124 mg/dL (74-106)
[2022-04-12] MEDS: Arthritis Pain Compound 60 CLICK TUBE TOPICAL ×2 (08:29→22:08)
[2022-04-12] MEDS: Insulin U-500 UNITS/ML PEN 50 UNITS SC (08:34)
[2022-04-12] MEDS: Sertraline 100 MG Tablet 150 MG PO (08:35)
[2022-04-12] MEDS: Lisinopril 40 MG Tablet PO (08:36)
[2022-04-12] MEDS: Senna/Docusate Sodium 1 Tablet 2 TABLET PO (08:36)
[2022-04-12] MEDS: Modafinil 200 MG Tablet PO (08:36)
[2022-04-12] MEDS: Nortriptyline 10 MG Capsule 30 MG PO (08:36)
[2022-04-12] MEDS: amLODIPine 10 MG Tablet PO (08:36)
[2022-04-12] MEDS: Pregabalin 50 MG Capsule 100 MG PO ×2 (08:36→22:07)
[2022-04-12 08:37] VITALS: BP 140/75; PULSE 62
[2022-04-12] MEDS: Furosemide 40 MG Tablet PO (08:37)
[2022-04-12] MEDS: Metoprolol Tartrate 100 MG Tablet 150 MG PO ×2 (08:37→22:10)
[2022-04-12] MEDS: Calcium (Elemental) 500 MG Tablet PO ×2 (08:37→17:13)
[2022-04-12] MEDS: Omega-3 Acid Ethyl Esters 1 GM Capsule PO ×2 (08:37→22:07)
[2022-04-12] MEDS: Aspirin 81 MG TAB.CHEW PO (08:37)
[2022-04-12] MEDS: Tamsulosin HCl 0.4 MG Capsule PO ×2 (08:37→22:07)
[2022-04-12] MEDS: Magnesium Chloride 64 MG Delay Rel.Tablet 128 MG PO ×2 (08:37→22:06)
[2022-04-12] MEDS: Potassium Chloride Oral Tablet 20 MEQ PO ×2 (08:37→17:14)
[2022-04-12] MEDS: Clopidogrel Bisulfate 75 MG Tablet PO (08:38)
[2022-04-12] MEDS: Cholecalciferol (VIT D3) 25 MCG TABLET (1,000 UNITS) PO ×2 (08:38→17:13)
[2022-04-12 09:16] VITALS: BP 140/75; PULSE 62; RESP 14; TEMP 36.5; O2SAT 96
[2022-04-12 11:40] LABS: Bedside Glucose 189 mg/dL (74-106)
[2022-04-12] MEDS: Insulin U-500 UNITS/ML PEN 40 UNITS SC ×2 (12:13→17:14)
--- NOTE | 2022-04-12 13:19 | NURSING ---
Dr Dee made aware of Urine Culture results
[2022-04-12 14:34] VITALS: BMI 32.3
[2022-04-12 16:20] LABS: Bedside Glucose 252 mg/dL (74-106)
[2022-04-12] MEDS: Atorvastatin Calcium 40 MG Tablet PO (22:07)
[2022-04-12 22:09] VITALS: BP 155/75; PULSE 67; RESP 18; TEMP 36.7; O2SAT 97
[2022-04-12 22:10] VITALS: BP 155/75; PULSE 67
[2022-04-12 22:30] LABS: Bedside Glucose 224 mg/dL (74-106)
[2022-04-13] MEDS: Enoxaparin 40 MG/0.4 ML Syringe SC (05:51)
[2022-04-13 06:21] LABS: Bedside Glucose 143 mg/dL (74-106)
[2022-04-13] MEDS: Tamsulosin HCl 0.4 MG Capsule PO ×2 (07:27→21:50)
[2022-04-13] MEDS: Calcium (Elemental) 500 MG Tablet PO ×2 (07:27→17:39)
[2022-04-13] MEDS: Potassium Chloride Oral Tablet 20 MEQ PO ×2 (07:27→17:39)
[2022-04-13] MEDS: Aspirin 81 MG TAB.CHEW PO (07:27)
[2022-04-13] MEDS: Cholecalciferol (VIT D3) 25 MCG TABLET (1,000 UNITS) PO ×2 (07:27→07:43)
[2022-04-13 07:41] VITALS: PULSE 67
[2022-04-13] MEDS: Metoprolol Tartrate 100 MG Tablet 150 MG PO ×2 (07:41→21:49)
[2022-04-13] MEDS: Modafinil 200 MG Tablet PO (07:41)
[2022-04-13] MEDS: Sertraline 100 MG Tablet 150 MG PO (07:41)
[2022-04-13] MEDS: Pregabalin 50 MG Capsule 100 MG PO ×2 (07:41→21:49)
[2022-04-13] MEDS: Magnesium Chloride 64 MG Delay Rel.Tablet 128 MG PO ×2 (07:42→21:49)
[2022-04-13] MEDS: Nortriptyline 10 MG Capsule 30 MG PO (07:42)
[2022-04-13] MEDS: Lisinopril 40 MG Tablet PO (07:43)
[2022-04-13] MEDS: Furosemide 40 MG Tablet PO (07:43)
[2022-04-13] MEDS: amLODIPine 10 MG Tablet PO (07:44)
[2022-04-13] MEDS: Omega-3 Acid Ethyl Esters 1 GM Capsule PO ×2 (07:44→21:49)
[2022-04-13] MEDS: Clopidogrel Bisulfate 75 MG Tablet PO (07:44)
[2022-04-13] MEDS: Insulin U-500 UNITS/ML PEN 50 UNITS SC (07:46)
[2022-04-13] MEDS: Arthritis Pain Compound 60 CLICK TUBE TOPICAL ×2 (07:47→21:50)
[2022-04-13 07:55] VITALS: BP 148/71; PULSE 64; RESP 18; TEMP 36.6; O2SAT 94
--- NOTE | 2022-04-13 08:11 | NURSING ---
MEDICATIONS GIVEN EARLY THIS AM D/T PT ACUITY.
[2022-04-13] MEDS: Insulin U-500 UNITS/ML PEN 40 UNITS SC ×2 (12:09→17:39)
[2022-04-13 12:25] LABS: Bedside Glucose 166 mg/dL (74-106)
[2022-04-13 15:37] VITALS: BMI 32.3
[2022-04-13] MEDS: Magnesium Hydroxide 30 ML UDC PO (16:00)
[2022-04-13 16:15] LABS: Bedside Glucose 172 mg/dL (74-106)
[2022-04-13 20:03] VITALS: BP 144/75; PULSE 67; RESP 18; TEMP 36.4; O2SAT 98
[2022-04-13 20:05] VITALS: O2SAT 98
[2022-04-13 21:49] VITALS: BP 144/75; PULSE 67
[2022-04-13] MEDS: Senna/Docusate Sodium 1 Tablet 2 TABLET PO (21:49)
[2022-04-13] MEDS: Atorvastatin Calcium 40 MG Tablet PO (21:50)
[2022-04-13 23:15] LABS: Bedside Glucose 230 mg/dL (74-106)
[2022-04-14] MEDS: Enoxaparin 40 MG/0.4 ML Syringe SC (06:56)
[2022-04-14 07:21] VITALS: BP 146/78; PULSE 66; RESP 18; TEMP 37.1; O2SAT 96
[2022-04-14 07:25] LABS: Bedside Glucose 103 mg/dL (74-106)
[2022-04-14] MEDS: Senna/Docusate Sodium 1 Tablet 2 TABLET PO ×2 (07:53→21:17)
[2022-04-14] MEDS: Arthritis Pain Compound 60 CLICK TUBE TOPICAL ×2 (07:53→21:13)
[2022-04-14] MEDS: Insulin U-500 UNITS/ML PEN 50 UNITS SC ×2 (07:53→17:13)
[2022-04-14] MEDS: Magnesium Chloride 64 MG Delay Rel.Tablet 128 MG PO ×2 (07:54→21:17)
[2022-04-14] MEDS: Calcium (Elemental) 500 MG Tablet PO ×2 (07:54→17:14)
[2022-04-14] MEDS: Potassium Chloride Oral Tablet 20 MEQ PO ×2 (07:54→17:14)
[2022-04-14] MEDS: Nortriptyline 10 MG Capsule 30 MG PO (07:54)
[2022-04-14] MEDS: Aspirin 81 MG TAB.CHEW PO (07:55)
[2022-04-14] MEDS: Tamsulosin HCl 0.4 MG Capsule PO ×2 (07:56→21:16)
[2022-04-14] MEDS: Clopidogrel Bisulfate 75 MG Tablet PO (07:56)
[2022-04-14] MEDS: Omega-3 Acid Ethyl Esters 1 GM Capsule PO ×2 (07:56→21:17)
[2022-04-14 07:57] VITALS: PULSE 66
[2022-04-14] MEDS: Metoprolol Tartrate 100 MG Tablet 150 MG PO ×2 (07:57→21:16)
[2022-04-14] MEDS: Furosemide 40 MG Tablet PO (07:58)
[2022-04-14] MEDS: amLODIPine 10 MG Tablet PO (07:59)
[2022-04-14] MEDS: Sertraline 100 MG Tablet 150 MG PO (08:00)
[2022-04-14] MEDS: Lisinopril 40 MG Tablet PO (08:00)
[2022-04-14] MEDS: Cholecalciferol (VIT D3) 25 MCG TABLET (1,000 UNITS) PO ×2 (08:01→17:14)
[2022-04-14] MEDS: Modafinil 200 MG Tablet PO (08:10)
[2022-04-14] MEDS: Pregabalin 50 MG Capsule 100 MG PO ×2 (08:10→21:24)
[2022-04-14] MEDS: Insulin U-500 UNITS/ML PEN 40 UNITS SC (12:01)
[2022-04-14 12:11] LABS: Bedside Glucose 164 mg/dL (74-106)
--- NOTE | 2022-04-14 12:16 | PCM.PROGNOTE ---
Subjective Subjective Afebrile VSS Maintaining appropriate oxygen saturation on RA Oral intake is good Discussed with nursing - no problems that need addressed Reviewed the PT/OT/ST notes Medication list reviewed. The blood sugar record was reviewed. BS's are creeping up again. Denies SOB, orthopnea, calf tenderness, palpitations, dysuria, lightheadedness, abd pain, nausea and CP. No complaints. Objective Data Objective Data Vital Signs: Vital Signs Temp Pulse Resp BP Pulse Ox O2 Del Method 98.8 F 66 18 146/78 H 96 Room Air 04/14/22 07:21 04/14/22 07:57 04/14/22 07:21 04/14/22 07:21 04/14/22 07:21 04/14/22 07:21 Oxygen Delivery Method Room Air Weight: 202 lb 2.622 oz Body Mass Index (BMI) 32.3 Intake & Output: Intake and Output for Last 24 Hours 04/12/22 04/13/22 04/14/22 23:59 23:59 23:59 Intake Total 1100 / 1100 960 / 960 480 / 480 Output Total 1100 / 1100 1700 / 1700 900 / 900 Balance 0 / 0 -740 / -740 -420 / -420 Lab / Micro Data Result Diagrams: 04/09/22 18:26 04/15/22 05:50 Labs: Laboratory Results - last 24 hr 04/13/22 11:44: POC Glucose 166 H 04/13/22 15:57: POC Glucose 172 H 04/13/22 22:56: POC Glucose 230 H 04/14/22 06:59: POC Glucose 103 04/14/22 11:48: POC Glucose 164 H Micro: Microbiology 04/10/22 11:30 Urine, Catheterized Urine Culture - Final Enterococcus faecalis Physical Exam Const alert, oriented x3 and no apparent distress Constitutional Narrative: Sitting in the recliner at the bedside. General Appearance: cooperative Resp normal respiratory effort and normal air movement Resp Narrative: no rales Cardio regular rate, regular rhythm and no gallops Cardio Narrative: no ectopy GI normal to inspection, nondistended, normoactive bowel sounds, soft to palpation and non-tender Extremity no calf tenderness General Extremity: Negative for edema Skin General Skin Exam: no breakdown Rashes: no rashes Psych affect normal Appearance: appropriate Assessment & Plan Assessment/Plan (1) Debility: (2) Right pontine stroke: (3) DM2 (diabetes mellitus, type 2): QUALIFIERS: Diabetes mellitus complication status: without complication 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 Continue therapy 2. BMP and magnesium in the a.m. 3. Change the insulin dosing to 50 units of U5 100 insulin 3 times daily AC 4. Will need to follow up at the [place] with his appraiser land regarding new CM diagnosis Charges/Coding Visit Charges Inpatient E&M: 03112 Subs Hosp L2
[2022-04-14 15:26] VITALS: BMI 32.3
[2022-04-14 16:41] LABS: Bedside Glucose 213 mg/dL (74-106)
[2022-04-14 21:16] VITALS: BP 129/64; PULSE 73
[2022-04-14] MEDS: Atorvastatin Calcium 40 MG Tablet PO (21:17)
[2022-04-14 21:51] VITALS: BP 129/64; PULSE 73; RESP 16; TEMP 36.7; O2SAT 97
[2022-04-14 22:06] LABS: Bedside Glucose 204 mg/dL (74-106)
[2022-04-15 03:07] VITALS: BMI 32.3
[2022-04-15 06:28] LABS: Anion Gap 4 (5-15); BUN 25 mg/dL (7-18); BUN/Creat Ratio 20.5 RATIO (10-20); Calcium,Total 8.7 mg/dL (8.5-10.1); Chloride 104 mmol/L (98-107); Creatinine, Serum 1.22 mg/dL (0.70-1.30); EST Glomerular Filtration Rate 63 mL/min (>60); Est Glom Filt Rate - Afr Amer 76 mL/min (>60); Estimated Creatinine Clearance 53.75 ml/min; Glucose 164 mg/dL (74-106); Magnesium 1.9 mg/dL (1.6-2.6); Potassium 3.9 mmol/L (3.5-5.1); Sodium Level 138 mmol/L (136-145)
[2022-04-15] MEDS: Enoxaparin 40 MG/0.4 ML Syringe SC (06:35)
[2022-04-15 07:35] LABS: Bedside Glucose 186 mg/dL (74-106)
[2022-04-15] MEDS: Cholecalciferol (VIT D3) 25 MCG TABLET (1,000 UNITS) PO ×2 (08:01→17:00)
[2022-04-15] MEDS: Sertraline 100 MG Tablet 150 MG PO (08:01)
[2022-04-15] MEDS: Magnesium Chloride 64 MG Delay Rel.Tablet 128 MG PO ×2 (08:01→21:17)
[2022-04-15] MEDS: Calcium (Elemental) 500 MG Tablet PO ×2 (08:01→17:01)
[2022-04-15] MEDS: Lisinopril 40 MG Tablet PO (08:01)
[2022-04-15] MEDS: Nortriptyline 10 MG Capsule 30 MG PO (08:01)
[2022-04-15 08:02] VITALS: PULSE 65
[2022-04-15] MEDS: Modafinil 200 MG Tablet PO (08:02)
[2022-04-15] MEDS: Potassium Chloride Oral Tablet 20 MEQ PO ×2 (08:02→17:00)
[2022-04-15] MEDS: Aspirin 81 MG TAB.CHEW PO (08:02)
[2022-04-15] MEDS: Metoprolol Tartrate 100 MG Tablet 150 MG PO ×2 (08:02→21:17)
[2022-04-15] MEDS: Omega-3 Acid Ethyl Esters 1 GM Capsule PO ×2 (08:04→21:17)
[2022-04-15] MEDS: Insulin U-500 UNITS/ML PEN 50 UNITS SC ×3 (08:05→17:00)
[2022-04-15 08:58] VITALS: BP 150/82; PULSE 65; RESP 18; TEMP 36.6; O2SAT 95
[2022-04-15] MEDS: Arthritis Pain Compound 60 CLICK TUBE TOPICAL ×2 (09:00→21:19)
[2022-04-15] MEDS: amLODIPine 10 MG Tablet PO (09:00)
[2022-04-15] MEDS: Pregabalin 50 MG Capsule 100 MG PO ×2 (09:00→21:11)
[2022-04-15] MEDS: Furosemide 40 MG Tablet PO (09:00)
[2022-04-15] MEDS: Tamsulosin HCl 0.4 MG Capsule PO ×2 (09:00→21:18)
[2022-04-15] MEDS: Clopidogrel Bisulfate 75 MG Tablet PO (09:02)
[2022-04-15 09:30] VITALS: BMI 32.3
[2022-04-15 11:10] LABS: Bedside Glucose 266 mg/dL (74-106)
--- NOTE | 2022-04-15 13:10 | CASEMGMT ---
Addendum entered by Taylor Lomeli 04/16/22 11:21: [facility] responded and unable to accept d/t unable to meet pt's needs Addendum entered by Taylor Lomeli 04/16/22 09:44: [facility] is out of the service area. SW referred to the following agencies: [facility], [facility], [facility], [facility]. [facility], [facility] do not service pt's area. [facility] has not responded. [facility] can accept. SW spoke with pt on [facility]. Pt agreeable to use. Will send DC paperwork once completed by Addendum entered by Taylor Lomeli 04/15/22 14:08: Per [facility] website, [facility] is the agency that accepts pt's insurance. Spoke with pt if he is okay with that agency/referral. Pt states he has no preference and okay to referral. Referral sent via [employer]. Original Note: Social Work IDT met with patient for Team meeting. Discussed patient's progress in PT/OT/ST/SN. Educated to [facility] insurance with [facility] 04/17. Pt expressed wanting to go to his previously scheduled dentist appt to get his teeth on 04/17 at the [facility]. IDT agreeable to set DC for 04/17 for pt to make that appt. Pt appreciative. Pt agreeable to [facility] recommendation for PT/OT/SN/SW. SW to continue to assist with housing resources. Pt to provide [facility] list that accepts insurance. Confirmed pt needs luiza and ANGELIA. [facility]. Plan: DC home with and son 04/17, [facility] PT/OT/SN/DONNA, ANGELIA ajrrett, BRANCH ACCOUNT MANAGER HEADSTART TEACHER
[2022-04-15 16:35] LABS: Bedside Glucose 223 mg/dL (74-106)
--- NOTE | 2022-04-15 16:51 | PCM.PROGNOTE ---
Subjective Subjective Clay was seen on team rounds today. No family was present in the room for rounds or participated on the phone. Afebrile VSS Maintaining appropriate oxygen saturation on RA Oral intake is good Discussed with nursing - no problems that need addressed Reviewed the PT/OT/ST notes Medication list reviewed. The blood sugar record was reviewed. Blood sugar control is not as good since the Metformin was discontinued. The blood sugar prior to lunch today was still significantly elevated despite recently increasing the a.m. U 500 insulin to 50 units. Will increase to 60 units. He is eating 75-100% of all his meals and I do not see any snacks in the room. He has lost about 5 lbs since admission to rehab. Clay has no complaints today. He is looking forward to going home and is especially looking forward to seeing his dentist on Friday afternoon so that he can have teeth for [place]. Objective Data Objective Data Vital Signs: Vital Signs Temp Pulse Resp BP Pulse Ox O2 Del Method 97.8 F 65 18 150/82 H 95 Room Air 04/15/22 08:58 04/15/22 08:58 04/15/22 08:58 04/15/22 08:58 04/15/22 08:58 04/15/22 08:58 Oxygen Delivery Method Room Air Weight: 201 lb 14.4 oz Body Mass Index (BMI) 32.3 Intake & Output: Intake and Output for Last 24 Hours 04/13/22 04/14/22 04/15/22 23:59 23:59 23:59 Intake Total 960 / 960 1200 / 1200 540 / 540 Output Total 1700 / 1700 1925 / 1925 125 / 125 Balance -740 / -740 -725 / -725 415 / 415 Lab / Micro Data Result Diagrams: 04/09/22 18:26 04/15/22 05:50 Labs: Laboratory Results - last 24 hr 04/14/22 21:47: POC Glucose 204 H 04/15/22 05:50: Sodium 138, Potassium 3.9, Chloride 104, Carbon Dioxide 30.0, Anion Gap 4 L, BUN 25 H, Creatinine 1.22, Estim Creat Clear Calc 53.75, Est GFR (MDRD) Af Amer 76, Est GFR (MDRD) Non-Af 63, BUN/Creatinine Ratio 20.5 H, Glucose 164 H, Calcium 8.7, Magnesium 1.9 10/31/22 07:14: POC Glucose 186 H 04/15/22 10:50: POC Glucose 266 H 04/15/22 16:16: POC Glucose 223 H Micro: Microbiology 04/10/22 11:30 Urine, Catheterized Urine Culture - Final Enterococcus faecalis Physical Exam Const alert and no apparent distress General Appearance: cooperative Resp normal respiratory effort and clear to auscultation bilaterally Resp Narrative: No conversational dyspnea Cardio regular rate, regular rhythm and no gallops Cardio Narrative: No ectopy. No atrial fibrillation anytime I have examined him while he has been in rehab. GI normal to inspection, nondistended, normoactive bowel sounds and soft to palpation Extremity no calf tenderness General Extremity: Negative for edema Assessment & Plan Assessment/Plan (1) Debility: (2) Right pontine stroke: (3) DM2 (diabetes mellitus, type 2): QUALIFIERS: Diabetes mellitus complication status: without complication Diabetes mellitus long term care pharmacist insulin use: with longterm use Qualified Code(s): E11.9 - Type 2 diabetes mellitus without complications; Z79.4 - [facility] (current) use of insulin (4) Cardiomyopathy: (5) Hypomagnesemia: PLAN: Plan 1. The plan is to DC on Friday, before 9 AM, so that he can keep his dental appt in [place] that day. 2. will need to follow up with Neurology post DC. 3. Stressed the importance of taking his medication every day as instructed if he is to prevent TN's and strokes and other CV events going forward. 4. Restart Metformin. Increase the AM U500 to 60 units daily. Charges/Coding Visit Charges Inpatient E&M: 56940 Subs Hosp L2
[2022-04-15 19:41] VITALS: BP 135/72; PULSE 71; RESP 18; TEMP 36.9; O2SAT 95
[2022-04-15 21:17] VITALS: PULSE 71
[2022-04-15] MEDS: Atorvastatin Calcium 40 MG Tablet PO (21:17)
[2022-04-15] MEDS: Senna/Docusate Sodium 1 Tablet 2 TABLET PO (21:19)
[2022-04-15 21:35] LABS: Bedside Glucose 180 mg/dL (74-106)
[2022-04-15 22:32] VITALS: BMI 32.3
[2022-04-16] MEDS: Enoxaparin 40 MG/0.4 ML Syringe SC (05:17)
[2022-04-16 06:40] LABS: Bedside Glucose 120 mg/dL (74-106)
[2022-04-16 07:42] VITALS: BP 133/72; PULSE 60; RESP 16; TEMP 36.1; O2SAT 95
[2022-04-16] MEDS: Insulin U-500 UNITS/ML PEN 50 UNITS SC ×3 (08:15→17:33)
[2022-04-16] MEDS: Tamsulosin HCl 0.4 MG Capsule PO ×2 (08:15→21:36)
[2022-04-16 08:16] VITALS: BP 133/72; PULSE 60
[2022-04-16] MEDS: Potassium Chloride Oral Tablet 20 MEQ PO ×2 (08:16→17:34)
[2022-04-16] MEDS: Metoprolol Tartrate 100 MG Tablet 150 MG PO ×2 (08:16→21:35)
[2022-04-16] MEDS: Aspirin 81 MG TAB.CHEW PO (08:16)
[2022-04-16] MEDS: Magnesium Chloride 64 MG Delay Rel.Tablet 128 MG PO ×2 (08:16→21:35)
[2022-04-16] MEDS: Clopidogrel Bisulfate 75 MG Tablet PO (08:17)
[2022-04-16] MEDS: Sertraline 100 MG Tablet 150 MG PO (08:17)
[2022-04-16] MEDS: Furosemide 40 MG Tablet PO (08:17)
[2022-04-16] MEDS: Modafinil 200 MG Tablet PO (08:17)
[2022-04-16] MEDS: Omega-3 Acid Ethyl Esters 1 GM Capsule PO ×2 (08:17→21:36)
[2022-04-16] MEDS: Cholecalciferol (VIT D3) 25 MCG TABLET (1,000 UNITS) PO ×2 (08:17→17:34)
[2022-04-16] MEDS: amLODIPine 10 MG Tablet PO (08:17)
[2022-04-16] MEDS: Nortriptyline 10 MG Capsule 30 MG PO (08:17)
[2022-04-16] MEDS: Senna/Docusate Sodium 1 Tablet 2 TABLET PO ×2 (08:18→21:36)
[2022-04-16] MEDS: Lisinopril 40 MG Tablet PO (08:18)
[2022-04-16] MEDS: Arthritis Pain Compound 60 CLICK TUBE TOPICAL ×2 (08:24→21:36)
[2022-04-16] MEDS: Calcium (Elemental) 500 MG Tablet PO ×2 (10:05→17:35)
[2022-04-16 11:25] LABS: Bedside Glucose 262 mg/dL (74-106)
[2022-04-16] MEDS: Pregabalin 50 MG Capsule 100 MG PO ×2 (11:57→21:36)
--- NOTE | 2022-04-16 13:16 | PCM.DC ---
Discharge Instructions Diet Discharge Diet: - (1800 calorie, low salt and low fat diet. Do not skip meals. ) Activity Discharge Activity: May Not Drive (No driiving until released to drive by neurology. ) and May Shower (use a shower chair) May resume sexual activity in: No Restrictions Weight Bearing Status: Full weight bearing Lifting Restrictions: 10 lbs Keep extremity elevated above heart level: Legs Dressing / Incision Call your doctor if you observe: Fever of 101 or Higher, Dizziness, Fainting spells, Swelling in the ankles, Chest pain, Increased palpitations (irregular heartbeat), Calf discomfort and Uncontrolled pain Follow Up Care When: Please follow up with your PCP at the [facility] and with your head of transport logistics within the next 1-2 weeks. You will also need to follow up with a neurologist. Your PCP can probably recommend a neurologist at the [facility] for you to see. Test Results: Test results from this visit will be discussed in further detail at your follow-up appointment, if applicable. Pending Tests Upon Discharge: none Discharge Plan Admission Admit Date/Time: 03/19/22 16:40 Primary Reason for Your Visit: post stroke debility Attending Provider: Alison Dee Primary Care Provider: [facility] Consulting Providers: Asad Lester Chi Instructions Patient Instructions: Living with Cardiomyopathy, Discharge Instructions for Stroke, Low Salt Diet Dc Additional Instructions / Restrictions: 1. I do not know why you had a stroke. You have a lot of risk factors for strokes and heart attacks. These risks include diabetes, high blood pressure, high cholesterol, being a man over the age of 45, having a family history of heart disease and being a smoker in the past. In order to prevent strokes in the future we need to control your risk factors. Your HGBA1C should be 7 or less (yours was 7.7 recently). The LDL (bad cholesterol) should be < 70 Your LDL was good at 58 but, the good cholesterol (HDL) is low at 36. Regular daily exercise (30 minutes a day) will help to increase the HDL.....I would like to see the HDL > 40). the goal for BP is < 130/80 and most of the time your BP is less than 130/80. Losing a little weight will help decrease the BP and also help to control the Blood sugars. You should ALWAYS know your LDL and your HGBA1C. 2. Check your blood sugars before meals and at bedtime and write the dates and times down to take to your next visit with your PCP to review. This will help you to know what your blood sugars are doing and how well you are controlling you sugars. It will also help your doctor when making changes to your insulin regimen. You should not be having blood sugars over 200. If the blood sugars are consistently over 200 then you are eating too many calories and carbohydrates and you need to adjust your diet. 3. You had an ECHO while you were in the hospital. This is an ultra sound of the heart. Normally every time the heart beats it squeezes 55-65% of the blood out of the heart and this is called the ejection fraction or EF. Your heart is weak and now is squeezing only 45% of the blood out with each beat. The rest of the blood was backing up into the lungs and causing shortness of breath when exercising and when lying flat in bed. It also causes swelling in the ankles. We started you back on a water pill to get rid of the excess fluid. You are taking Lasix(also called Furosemide) 40 mg daily and you are doing well. the congestive heart failure has resolved. Eating too much salt makes your body hold onto fluid and can cause CHF. Make sure to read the literature you got about salt. One of the first signs you are retaining fluid is your weight will start increasing. Before you ever notice swelling in the legs your weight will have increased about 4 and 1/2 pounds. If this is addressed early then you can prevent admissions to the hospital for congestive heart failure. Buy a good scale. Weigh yourself daily in the AM after urinating with no clothes on and keep a record. If your weight increases by 5 pounds or more in 1 week then you are retaining fluid. Cut back on salt intake and fluids and increase Lasix to 2 times a day until your weight is back to baseline. If your weight continues to increase call your PCP or head of transport logistics for instructions. 4. You should know the symptoms of a stroke. If you have any symptoms of a stroke, even if they go away, you should call 911 and go to an ER. The debility caused by a stroke can often be minimized IF you get to an ER within 3 hours of onset of symptoms and get a clot busting drug called TPA or TNK. Time is brain so do not waste any time getting to the ED and DO NOT DRIVE YOURSELF. CALL 911. Go the ED or call 911 immediately if sudden onset: 1. facial droop 2. slurred speech or inability to get words out 3. weakness or numbness on 1 side of the face, arm or leg. 4. vertigo or room spinning 5. loss of vision or trouble seeing in one eye 6. Confusion 7. Trouble walking or maintaining balance and trouble with coordination 8. Sudden severe headache with no known cause 5. It has been a pleasure meeting you Clay and I hope we have been able to teach you how to better take care of yourself. If you have any questions after you leave rehab please do not hesitate to call me. Office: [phone] CELL: [phone] Discharge Orders/Prescriptions Prescriptions: New amlodipine 10 mg Tablet 10 mg PO DAILY Qty: 30 0RF lisinopril 40 mg Tablet 40 mg PO DAILY Qty: 30 0RF furosemide 40 mg Tablet 40 mg PO DAILY Qty: 30 0RF acetaminophen 500 mg Tablet 1,000 mg PO Q6H PRN PRN (Reason: Pain Score 1-10) Qty: 1 0RF potassium chloride [Klor-Con M20] 20 mEq Tablet,Er Particles/Crystals 20 meq PO BIDCM Qty: 60 0RF Mag 64 64 mg Tablet,Delayed Release (Dr/Ec) 128 mg PO BID Qty: 60 0RF Humulin R U-500 (Conc) Kwikpen 500 unit/mL (3 mL) Insulin Pen 60 units subcut BREAKFAST Qty: 0 0RF Humulin R U-500 (Conc) Kwikpen 500 unit/mL (3 mL) Insulin Pen 50 units subcut 1130 Qty: 0 0RF Humulin R U-500 (Conc) Kwikpen 500 unit/mL (3 mL) Insulin Pen 50 units subcut 1630 Qty: 0 0RF Continued metoprolol tartrate 100 MG tablet 150 mg PO BID nortriptyline 10 MG capsule 30 mg PO DAILY calcium carbonate 500 MG tablet 650 mg PO BID Fish Oil 1 EACH capsule 1,000 mg PO BID cholecalciferol (vitamin D3) [Vitamin D3] 1,000 UNIT tablet 1,000 unit PO BID modafinil 200 MG tablet 200 mg PO DAILY buspirone 10 MG tablet 10 mg PO BID atorvastatin 10 MG tablet 40 mg PO QHS aspirin 81 MG tablet,chewable 81 mg PO DAILY tamsulosin 0.4 mg Capsule 0.4 mg PO DAILY pregabalin 100 mg Capsule 100 mg PO BID sertraline 150 mg Capsule 150 mg PO DAILY clopidogrel 75 mg tablet 75 mg PO DAILY Qty: 30 0RF Changed metformin 500 mg Tablet 500 mg PO TID Qty: 90 0RF Rx Instructions: take this medication with meals Discontinued amlodipine 5 MG tablet 10 mg PO BID lisinopril [Prinivil] 10 MG tablet 40 mg PO DAILY ondansetron 4 mg tablet,disintegrating 4 mg PO Q8H PRN (Reason: nausea and vomiting) Qty: 10 0RF enoxaparin [Lovenox] 40 mg/0.4 mL Syringe 40 mg SUBCUT DAILY Referrals / Follow Up: Zeynep Blackman PA [Med Staff - Adv Practice Prof] - 04/30/22 1:[facility] - Disposition Disposition (needs filled in before D/C Order can be placed): Home Health Service
--- NOTE | 2022-04-16 14:25 | EX.DISCHREH ---
Providers Date of Admission: 03/19/22 Date of Discharge: 04/17/22 Primary Care Physician: [facility] Reason For Visit: Post stroke Debility Diagnosis Discharge Diagnosis (1) Debility: Status: Acute Code(s): R53.81 - Other malaise (2) Right pontine stroke: Status: Acute Code(s): I63.50 - Cerebral infarction due to unspecified occlusion or stenosis of unspecified cerebral artery (3) DM2 (diabetes mellitus, type 2): Status: Chronic Code(s): E11.9 - Type 2 diabetes mellitus without complications Qualifiers: Diabetes mellitus complication status: without complication Diabetes mellitus penitentiary insulin use: with penitentiary use Qualified Code(s): E11.9 - Type 2 diabetes mellitus without complications; Z79.4 - intermediate (current) use of insulin Plan: Not adequately controlled with HGBA1C of 7.7. Has been much higher in the past. (4) Cardiomyopathy: Status: Acute Code(s): I42.9 - Cardiomyopathy, unspecified Plan: EF in 2018 was 60% and now is 45% with global hypokinesis. (5) Hypomagnesemia: Status: Resolved Code(s): E83.42 - Hypomagnesemia Plan: Continue 128 mg BID of Magnesium chloride. (6) Facial droop due to acute cerebrovascular accident (CVA): Status: Acute Code(s): I63.9 - Cerebral infarction, unspecified; R29.810 - Facial weakness (7) Acute left-sided weakness: Status: Acute Code(s): R53.1 - Weakness (8) Acute systolic CHF (congestive heart failure): Status: Resolved Code(s): I50.21 - Acute systolic (congestive) heart failure Plan: On Lasix 40 mg daily at [facility]. (9) Hyperlipidemia: Status: Chronic Code(s): E78.5 - Hyperlipidemia, unspecified Plan: LDL was 58 and the HDL was low at 36 at the time of admission for stroke. (10) Hypertension: Status: Chronic Code(s): I10 - Essential (primary) hypertension Plan: Controlled (11) Obstructive sleep apnea: Status: Chronic Code(s): G47.33 - Obstructive sleep apnea (adult) (pediatric) Plan: Compliant with CPAP (12) Coronary artery disease: Status: Chronic Code(s): I25.10 - Atherosclerotic heart disease of [place] coronary artery without angina pectoris (13) Diabetic polyneuropathy: Status: Chronic Code(s): E11.42 - Type 2 diabetes mellitus with diabetic polyneuropathy (14) Narcolepsy: Status: Chronic Code(s): G47.419 - Narcolepsy without cataplexy Plan 1. DC home with [facility] for PT/OT/SW/SN. 2. DME at DC - florecita-walker, [facility] 3. Follow up with Zeynep Blackman for cardiology 4. Follow up with PCP at the [facility] 5. Follow up with neurology at the [facility] or with Dr. Enciso Medications at Discharge Home Medications metoprolol tartrate 100 mg tablet 150 mg PO BID blood pressure 10/05/16 nortriptyline 10 mg capsule 30 mg PO DAILY migraines 10/05/16 calcium carbonate 500 mg calcium (1,250 mg) tablet 650 mg PO BID supplement 08/17/17 cholecalciferol (vitamin D3) 25 mcg (1,000 unit) tablet (Vitamin D3) 1,000 unit PO BID vitamin 08/17/17 omega-3 fatty acids-fish oil 340 mg-1,000 mg capsule (Fish Oil) 1,000 mg PO BID supplement 08/17/17 buspirone 10 mg tablet 10 mg PO BID mood 06/17/19 modafinil 200 mg tablet 200 mg PO DAILY narcolepsy 06/17/19 aspirin 81 mg chewable tablet 81 mg PO DAILY heart health 08/17/19 atorvastatin 10 mg tablet 40 mg PO QHS cholesterol 08/17/19 tamsulosin 0.4 mg capsule 0.4 mg PO DAILY urine 03/30/21 pregabalin 100 mg capsule 100 mg PO BID pain 03/19/22 sertraline 150 mg capsule 150 mg PO DAILY mood 03/19/22 acetaminophen 500 mg tablet 1,000 mg PO Q6H PRN PRN Pain Score 1-10 #1 TAB 04/16/22 amlodipine 10 mg tablet 10 mg PO DAILY #30 tabs 04/16/22 clopidogrel 75 mg tablet 75 mg PO DAILY Check with primary doctor #30 tabs 04/16/22 furosemide 40 mg tablet 40 mg PO DAILY #30 tabs 04/16/22 insulin regular hum U-500 conc 500 unit/mL(3 mL) subcut pen (Humulin R U-500 (Conc) Insulin Kwikpen) 50 units (0.1 mL) subcut 1130 #0 mL 04/16/22 insulin regular hum U-500 conc 500 unit/mL(3 mL) subcut pen (Humulin R U-500 (Conc) Insulin Kwikpen) 50 units (0.1 mL) subcut 1630 #0 mL 04/16/22 insulin regular hum U-500 conc 500 unit/mL(3 mL) subcut pen (Humulin R U-500 (Conc) Insulin Kwikpen) 60 units (0.12 mL) subcut BREAKFAST #0 mL 04/16/22 lisinopril 40 mg tablet 40 mg PO DAILY #30 tabs 04/16/22 magnesium chloride 64 mg (magnesium chloride) tablet,delayed release (Mag 64) 128 mg PO BID #60 tabs 04/16/22 metformin 500 mg tablet 500 mg PO TID blood sugar #90 tabs 04/16/22 potassium chloride 20 mEq tablet,extended release(part/cryst) (Klor-Con M) 20 meq PO BIDCM #60 tabs 04/16/22 Hospital Course Operations None Procedures 2-D Echocardiogram (Interpretation Summary Normal LV size. The estimated ejection fraction is 45 %. There is mild globokinesis of the left ventricle. Bubble contrast study negative for right to left interatrial shunt. Structurally normal valves.) Summary of Care Provided Minutes Spent on Discharge: 45 Hospital Course: Mr. Rodrigues is a 67-year-old male who went to bed at 11 PM on 03/15/2022 feeling well.? The next morning he woke up with lower extremity weakness and slurred speech.? NIH score was 7 at presentation to the emergency department.? Stat noncontrast CT brain revealed no acute abnormalities.? CTA of the head and neck showed no evidence of occlusive vascular disease and no evidence of acute stroke.? Tele-neurology was consulted and the patient received no tPA because he was outside of the window.? They recommended 300 mg of Plavix.? He was prescribed ASA 81 mg daily but, had been missing doses prior to admission.? MRI of the brain showed a small acute infarct in the right pina.? Echocardiogram showed an ejection fraction of 45% with mild global hypokinesis.? EF in March 2021 was normal at 55 to 60%.? Bubble contrast study was negative for intra-atrial shunt.? There was no significant valvular heart disease.? Past medical history significant for anxiety, chronic pain syndrome, coronary artery disease, sleep apnea, depression, diabetes mellitus, tobacco dependence in remission, GERD, noncompliance with medication follow-up, history of GI bleed, bilateral hearing loss, hypertension, hypothyroidism, migraines, osteoporosis and BPH.? He was transferred to the acute inpatient rehab unit at [facility] on 03/19/2022 for 3 hours of therapy daily to restore function at or near his prior level of independence.? He lives with his and family. While in the hospital his wt had increased from 195 lbs to 212 lbs and he developed orthopnea and ankle edema. He was diuresed and at the time of DC the wt is stable at 202 lbs. He denied orthopnea, PERALTA and ankle swelling at the time of DC. At the time he arrived on rehab he was on Glargine and Lispro and the BS's were uncontrolled. After talking with him he related that he had been taking U 500 insulin at home. 80 units with breakfast and lunch and 100 units with supper. HGBA1C was 7.7%. Glargine and lispro were discontinued and he was started on U 500 insulin, 40 units with breakfast and lunch and 50 units with supper. He was also taking Metformin 500 mg BID. BS's came under good control with some adjustments in the dosing. For a short time the Metformin was discontinued to see if the blood sugars would remain controlled and the blood sugars increased and the Metformin was restarted. He had a low magnesium in rehab at 1.5 and he was placed on a supplement. Potassium was low with the initiation of Lasix and a supplement was added. At the time of DC the mag was 1.9 and the K was 3.9. Clay did well in therapy. He was cooperative and made excellent progress. At the time of discharge Clay was able to do 8 sit to stands in 30 seconds at standby assist using his upper extremities. He was able to complete a curb step with a hemiwalker at minimal assistance and also able to do 2 steps with bilateral handrails at contact-guard assist. He had ambulated up to 165 feet with a straight cane at min assist and he could also ambulate 200 feet on various surfaces with a Rollator walker at minimal assistance. Occasionally the left foot catches.......may be due to the Crocs he wears. He was independent with eating and supervision/set up with grooming. He was supervision/set up for upper body dressing and standby assist for lower body dressing. He was also standby assist for toileting and toilet transfer. With tub/shower transfer he was contact-guard assist. He was released from ST 2 days prior to DC and additional ST post DC was not recommended. Clay was discharged home on 04/17/22 with [facility] for PT/OT/SN and SW. He has an appt to follow up with Zeynep VIRK on 04/30 at 1300. He was also instructed to [facility] and to ask for a referral to neurology at the [facility]. Physical Exam Const alert, oriented x3 and no apparent distress Constitutional Narrative: Sitting in the recliner at the bedside. General Appearance: cooperative and well developed HEENT moist oral mucous membranes Eyes PERRL and EOMs intact bilaterally Eyes Narrative: He tells me that he has blurred vision in the R eye and that he needs to have a laser done to stop the bleeding. Neck No nuchal rigidity General: trachea midline Resp normal respiratory effort, normal air movement and clear to auscultation bilaterally Resp Narrative: No conversational dyspnea Effort and Inspection: Negative for tachypneic Cardio regular rate, regular rhythm and no gallops Cardio Narrative: No ectopy. No atrial fibrillation anytime I have examined him while he has been in rehab. GI normal to inspection, nondistended, normoactive bowel sounds, soft to palpation and non-tender GI Narrative: No guarding with palpation. Inspection: Negative for abdominal distention Extremity no calf tenderness Extremity Narrative: still with piting edema of the ankles. No thigh edema today and no pretibial edema. General Extremity: Negative for edema Skin General Skin Exam: no breakdown Rashes: no rashes Neuro Neuro Narrative: Increased strength in the LUE now and in the leg. is down to a 3 from a 5 at admission to rehab. He is walking up to 80 feet with a hemiwalker and also ambulated 65 feet and 80 feet with a Rollator at [facility]. Speech is improved and he rarely slurs now. He is now able to do biceps curls with the LUE now.......but, with the increased activity he is c/o shoulder pain. Coordination / Balance: [id number] test normal and [id number] test normal Speech: speech normal Psych cooperative and affect normal Appearance: appropriate Activity / Motor Behavior: Negative for restless Weight / BMI Weight Weight: 202 lb 2.622 oz Body Mass Index (BMI) 32.3 ABG / Lab / Microbiology Data Result Diagrams: 04/09/22 18:26 04/15/22 05:50 Laboratory: Laboratory Results - last 24 hr 04/15/22 16:16: POC Glucose 223 H 04/15/22 21:14: POC Glucose 180 H 04/16/22 06:20: POC Glucose 120 H 04/16/22 11:03: POC Glucose 262 H Microbiology: Microbiology 04/10/22 11:30 Urine, Catheterized Urine Culture - Final Enterococcus faecalis Indicators for Scoring Admitted with or Primary Diagnosis of CVA/Stroke: Yes Hx of CVA/Stroke: No Modified Ba Score MRS Score at time of Evaluation: 3-Moderate disability NIHSS NIHSS 1a. Level of Consciousness: Alert; keenly responsive 1b. LOC Questions: Answers BOTH questions correctly. 1c. LOC Commands: Performs both tasks correctly. 2. Best Gaze: Normal 3. Visual: No visual loss 4. Facial Palsy: Normal symmetrical movements 5a. Left Arm: No drift; arm holds 90 (or 45) degrees for full 10 seconds 5b. Right Arm: No drift; arm holds 90 (or 45) degrees for full 10 seconds 6a. Left Leg: No drift; leg holds 30-degree position for full 5 seconds 6b. Right Leg: No drift; leg holds 30-degree position for full 5 seconds 7. Limb Ataxia: Absent 8. Sensory: Axzi-pl-skvltdsr sensory loss; 9. Best Language: No aphasia; normal 10. Dysarthria: Normal 11. Extinction and Inattention: No abnormality Total: 1 D/C Instructions Discharge Diet: - (1800 calorie, low salt and low fat diet. Do not skip meals. ) May resume sexual activity in: No Restrictions Weight Bearing Status: Full weight bearing Keep extremity elevated above heart level: Legs Call your doctor if you observe: Fever of 101 or Higher, Dizziness, Fainting spells, Swelling in the ankles, Chest pain, Increased palpitations (irregular heartbeat), Calf discomfort and Uncontrolled pain Pending Tests Upon Discharge: none When: Please follow up with your PCP at the [facility] and with your broadcast operations manager within the next 1-2 weeks. You will also need to follow up with a neurologist. Your PCP can probably recommend a neurologist at the [facility] for you to see. Meaningful Use Info Meaningful Use Diagnoses (Choose all that apply): Ischemic CVA CVA Therapy Assessed for PT,OT and/or ST?: Yes Ischemic Stroke Antithrombotic order at d/c?: Yes Dx of Atrial fib/flutter?: No Anticoagulant at discharge?: No Reason anticoagulant not ordered: Treatment not Indicated Statins at discharge?: Yes Primary Dx Acute Ischemic CVA?: Yes IV tPA ordered during stay?: No Reason IV t-PA not ordered: Treatment not Indicated Discharge Plan Admission Admit Date/Time: 03/19/22 16:40 Primary Reason for Your Visit: post stroke debility Attending Provider: Alison Dee Primary Care Provider: [facility] Consulting Providers: Asad Lester Chi Instructions Patient Instructions: Living with Cardiomyopathy, Discharge Instructions for Stroke, Low Salt Diet Dc Additional Instructions / Restrictions: 1. I do not know why you had a stroke. You have a lot of risk factors for strokes and heart attacks. These risks include diabetes, high blood pressure, high cholesterol, being a man over the age of 45, having a family history of heart disease and being a smoker in the past. In order to prevent strokes in the future we need to control your risk factors. Your HGBA1C should be 7 or less (yours was 7.7 recently). The LDL (bad cholesterol) should be < 70 Your LDL was good at 58 but, the good cholesterol (HDL) is low at 36. Regular daily exercise (30 minutes a day) will help to increase the HDL.....I would like to see the HDL > 40). the goal for BP is < 130/80 and most of the time your BP is less than 130/80. Losing a little weight will help decrease the BP and also help to control the Blood sugars. You should ALWAYS know your LDL and your HGBA1C. 2. Check your blood sugars before meals and at bedtime and write the dates and times down to take to your next visit with your PCP to review. This will help you to know what your blood sugars are doing and how well you are controlling you sugars. It will also help your doctor when making changes to your insulin regimen. You should not be having blood sugars over 200. If the blood sugars are consistently over 200 then you are eating too many calories and carbohydrates and you need to adjust your diet. 3. You had an ECHO while you were in the hospital. This is an ultra sound of the heart. Normally every time the heart beats it squeezes 55-65% of the blood out of the heart and this is called the ejection fraction or EF. Your heart is weak and now is squeezing only 45% of the blood out with each beat. The rest of the blood was backing up into the lungs and causing shortness of breath when exercising and when lying flat in bed. It also causes swelling in the ankles. We started you back on a water pill to get rid of the excess fluid. You are taking Lasix(also called Furosemide) 40 mg daily and you are doing well. the congestive heart failure has resolved. Eating too much salt makes your body hold onto fluid and can cause CHF. Make sure to read the literature you got about salt. One of the first signs you are retaining fluid is your weight will start increasing. Before you ever notice swelling in the legs your weight will have increased about 4 and 1/2 pounds. If this is addressed early then you can prevent admissions to the hospital for congestive heart failure. Buy a good scale. Weigh yourself daily in the AM after urinating with no clothes on and keep a record. If your weight increases by 5 pounds or more in 1 week then you are retaining fluid. Cut back on salt intake and fluids and increase Lasix to 2 times a day until your weight is back to baseline. If your weight continues to increase call your PCP or broadcast operations manager for instructions. 4. You should know the symptoms of a stroke. If you have any symptoms of a stroke, even if they go away, you should call 911 and go to an ER. The debility caused by a stroke can often be minimized IF you get to an ER within 3 hours of onset of symptoms and get a clot busting drug called TPA or TNK. Time is brain so do not waste any time getting to the ED and DO NOT DRIVE YOURSELF. CALL 911. Go the ED or call 911 immediately if sudden onset: 1. facial droop 2. slurred speech or inability to get words out 3. weakness or numbness on 1 side of the face, arm or leg. 4. vertigo or room spinning 5. loss of vision or trouble seeing in one eye 6. Confusion 7. Trouble walking or maintaining balance and trouble with coordination 8. Sudden severe headache with no known cause 5. It has been a pleasure meeting you Clay and I hope we have been able to teach you how to better take care of yourself. If you have any questions after you leave rehab please do not hesitate to call me. Office: [phone] CELL: [phone] Discharge Orders/Prescriptions Prescriptions: New amlodipine 10 mg Tablet 10 mg PO DAILY Qty: 30 0RF lisinopril 40 mg Tablet 40 mg PO DAILY Qty: 30 0RF furosemide 40 mg Tablet 40 mg PO DAILY Qty: 30 0RF acetaminophen 500 mg Tablet 1,000 mg PO Q6H PRN PRN (Reason: Pain Score 1-10) Qty: 1 0RF potassium chloride [Klor-Con M20] 20 mEq Tablet,Er Particles/Crystals 20 meq PO BIDCM Qty: 60 0RF Mag 64 64 mg Tablet,Delayed Release (Dr/Ec) 128 mg PO BID Qty: 60 0RF Humulin R U-500 (Conc) Kwikpen 500 unit/mL (3 mL) Insulin Pen 60 units subcut BREAKFAST Qty: 0 0RF Humulin R U-500 (Conc) Kwikpen 500 unit/mL (3 mL) Insulin Pen 50 units subcut 1130 Qty: 0 0RF Humulin R U-500 (Conc) Kwikpen 500 unit/mL (3 mL) Insulin Pen 50 units subcut 1630 Qty: 0 0RF Continued metoprolol tartrate 100 MG tablet 150 mg PO BID nortriptyline 10 MG capsule 30 mg PO DAILY calcium carbonate 500 MG tablet 650 mg PO BID Fish Oil 1 EACH capsule 1,000 mg PO BID cholecalciferol (vitamin D3) [Vitamin D3] 1,000 UNIT tablet 1,000 unit PO BID modafinil 200 MG tablet 200 mg PO DAILY buspirone 10 MG tablet 10 mg PO BID atorvastatin 10 MG tablet 40 mg PO QHS aspirin 81 MG tablet,chewable 81 mg PO DAILY tamsulosin 0.4 mg Capsule 0.4 mg PO DAILY pregabalin 100 mg Capsule 100 mg PO BID sertraline 150 mg Capsule 150 mg PO DAILY clopidogrel 75 mg tablet 75 mg PO DAILY Qty: 30 0RF Changed metformin 500 mg Tablet 500 mg PO TID Qty: 90 0RF Rx Instructions: take this medication with meals Discontinued amlodipine 5 MG tablet 10 mg PO BID lisinopril [Prinivil] 10 MG tablet 40 mg PO DAILY ondansetron 4 mg tablet,disintegrating 4 mg PO Q8H PRN (Reason: nausea and vomiting) Qty: 10 0RF enoxaparin [Lovenox] 40 mg/0.4 mL Syringe 40 mg SUBCUT DAILY Referrals / Follow Up: Zeynep Blackman PA [Med Staff - Adv Practice Prof] - 04/30/22 1:00 [facility] [Primary [facility] - Disposition Disposition (needs filled in before D/C Order can be placed): Home Health Service Charges/Coding Visit Charges Inpatient E&M: 88229 Disch Hosp
[2022-04-16 16:45] LABS: Bedside Glucose 248 mg/dL (74-106)
[2022-04-16 16:57] VITALS: BMI 32.3
[2022-04-16] MEDS: metFORMIN HCl 500 MG Tablet PO (17:35)
[2022-04-16 19:24] VITALS: BP 111/72; PULSE 80; RESP 16; TEMP 36.5; O2SAT 96
[2022-04-16 19:46] VITALS: BMI 32.3
[2022-04-16 19:47] VITALS: PULSE 73; RESP 16
[2022-04-16 21:35] VITALS: PULSE 73
[2022-04-16] MEDS: Atorvastatin Calcium 40 MG Tablet PO (21:36)
[2022-04-16 21:45] LABS: Bedside Glucose 131 mg/dL (74-106)
[2022-04-17] MEDS: Enoxaparin 40 MG/0.4 ML Syringe SC (05:29)
[2022-04-17 06:45] LABS: Bedside Glucose 92 mg/dL (74-106)
[2022-04-17] MEDS: amLODIPine 10 MG Tablet PO (07:39)
[2022-04-17] MEDS: Tamsulosin HCl 0.4 MG Capsule PO (07:39)
[2022-04-17] MEDS: Nortriptyline 10 MG Capsule 30 MG PO (07:39)
[2022-04-17] MEDS: Pregabalin 50 MG Capsule 100 MG PO (07:39)
[2022-04-17] MEDS: Arthritis Pain Compound 60 CLICK TUBE TOPICAL (07:39)
[2022-04-17] MEDS: Modafinil 200 MG Tablet PO (07:39)
[2022-04-17] MEDS: Insulin U-500 UNITS/ML PEN 60 UNITS SC (07:40)
[2022-04-17] MEDS: Omega-3 Acid Ethyl Esters 1 GM Capsule PO (07:40)
[2022-04-17] MEDS: Magnesium Chloride 64 MG Delay Rel.Tablet 128 MG PO (07:40)
[2022-04-17] MEDS: Aspirin 81 MG TAB.CHEW PO (07:40)
[2022-04-17] MEDS: Potassium Chloride Oral Tablet 20 MEQ PO (07:40)
[2022-04-17] MEDS: Cholecalciferol (VIT D3) 25 MCG TABLET (1,000 UNITS) PO (07:40)
[2022-04-17] MEDS: Furosemide 40 MG Tablet PO (07:40)
[2022-04-17] MEDS: Calcium (Elemental) 500 MG Tablet PO (07:40)
[2022-04-17] MEDS: metFORMIN HCl 500 MG Tablet PO (07:40)
[2022-04-17 07:41] VITALS: BP 159/85; PULSE 62
[2022-04-17] MEDS: Metoprolol Tartrate 100 MG Tablet 150 MG PO (07:41)
[2022-04-17] MEDS: Lisinopril 40 MG Tablet PO (07:44)
[2022-04-17] MEDS: Sertraline 100 MG Tablet 150 MG PO (07:44)
[2022-04-17 08:26] VITALS: BP 159/85; PULSE 62; RESP 17; TEMP 36.2; O2SAT 100
[2022-04-17 08:51] VITALS: BMI 32.3
--- NOTE | 2022-04-17 08:55 | NURSING ---
discharged home with . discharge instructions, medications and appointments reviewed with [t denies question or concerns
== END 2022-04-17 08:56 | disposition home health service (06) | DRG 56 ==
PROVIDERS: Admitting Provider Family Medicine Geriatric Medicine; Visit Provider Internal Medicine
DX: I69.354 Hemiplegia and hemiparesis following cerebral infarction affecting left non-dominant side (principal); I50.23 Acute on chronic systolic (congestive) heart failure; I42.9 Cardiomyopathy, unspecified; E11.319 Type 2 diabetes mellitus with unspecified diabetic retinopathy without macular edema; E11.42 Type 2 diabetes mellitus with diabetic polyneuropathy; I11.0 Hypertensive heart disease with heart failure; Z79.4 Long term (current) use of insulin; G43.909 Migraine, unspecified, not intractable, without status migrainosus; E55.9 Vitamin D deficiency, unspecified; I25.10 Atherosclerotic heart disease of native coronary artery without angina pectoris; F41.9 Anxiety disorder, unspecified; E78.5 Hyperlipidemia, unspecified; G47.33 Obstructive sleep apnea (adult) (pediatric); K21.9 Gastro-esophageal reflux disease without esophagitis; I69.328 Other speech and language deficits following cerebral infarction; I69.392 Facial weakness following cerebral infarction; I25.2 Old myocardial infarction; Z87.891 Personal history of nicotine dependence; F32.A Depression, unspecified; Z79.02 Long term (current) use of antithrombotics/antiplatelets; Z79.84 Long term (current) use of oral hypoglycemic drugs; G47.419 Narcolepsy without cataplexy; G89.4 Chronic pain syndrome; Z79.82 Long term (current) use of aspirin; Z79.01 Long term (current) use of anticoagulants; Z79.899 Other long term (current) drug therapy; Z86.16 Personal history of COVID-19; N40.0 Benign prostatic hyperplasia without lower urinary tract symptoms
CPT/HCPCS: 36415; 71046; 74230; 80048; 80053; 81001; 82947; 82962; 83036; 83735; 83880; 84439; 84443; 85014; 85018; 87077; 87086; 87088; 87186; 92507; 92523; 92526; 92610; 92611; 97110; 97112; 97116; 97162; 97166; 97530; 97535; 97802; 99251; A4216; G0463; J1940

== ENCOUNTER 2022-05-07 07:21 | Emergency (ER) | payer MEDICARE, SELFPAY ==
[2022-05-07 07:22] VITALS: BP 104/68; PULSE 70; RESP 14; TEMP 36.2; O2SAT 100; BMI 29.0
[2022-05-07 07:30] VITALS: BP 117/81; PULSE 72; RESP 12; O2SAT 97
--- NOTE | 2022-05-07 07:35 | EKG12_ITS ---
Test Reason : LOW BP Blood Pressure : / mmHG Vent. Rate : 070 BPM Atrial Rate : 070 BPM P-R Int : 170 ms QRS Dur : 100 ms QT Int : 444 ms P-R-T Axes : 033 -16 133 degrees QTc Int : 479 ms Normal sinus rhythm Inferior infarct , age undetermined ST & T wave abnormality, consider lateral ischemia Abnormal ECG Confirmed by ASIYA FERREIRA, MINNIE ([id number]), subeditor GENARO JIMENEZ ([id number]) on 05/08/2022 9:15:58 AM Referred By: Confirmed By:MINNIE BRADEN MD
--- NOTE | 2022-05-07 07:35 | CT_ITS ---
STUDY: CT BRAIN WITHOUT CONTRAST REASON FOR EXAM: Male, 67 years old. weakness -- recent CVA, increased weakness RADIATION DOSAGE (If Supplied By Facility): CTDIvol = ( 28.57 ) mGy, DLP = ( 1521.80 ) mGycm TECHNIQUE: Transaxial CT imaging of the brain was performed without administration of intravenous contrast material. Individualized dose optimization techniques were used for this CT. COMPARISON: Head CT dated March 16, 2022 FINDINGS: Normal soft tissue structures. Normal calvarium. Normal size ventricles and extra-axial spaces for the patient''s age. There are areas of decreased attenuation within the white matter tracts of the supratentorial brain, consistent with microvascular disease changes. Normal basal ganglia and thalami. Normal brainstem. Normal cerebellum. There is no intracranial hemorrhage. There are no findings of an acute ischemic infarction. Normal visualized paranasal sinuses. IMPRESSION: Chronic ischemic changes of the brain. STUDY: CTA HEAD AND NECK WITH CONTRAST REASON FOR EXAM: Male, 67 years old. weakness -- recent CVA, increased weakness RADIATION DOSAGE (If Supplied By Facility): CTDIvol = ( 28.57 ) mGy, DLP = ( 1521.80 ) mGycm TECHNIQUE: CT angiography was performed with a multi-detector CT scanner. Data acquisition was obtained from the skull base through the vertex following intravenous administration of IV 100mL Isovue-300. MIP images were reconstructed from the axial data set. Post-processing of the angiographic images was performed, with multiplanar reformation and 3D reconstruction. Individualized dose optimization techniques were used for this CT. COMPARISON: CTA of the brain dated March 16, 2022 FINDINGS: Normal bilateral petrous carotid arteries. There is calcified plaque formation of the right cavernous carotid artery, with a moderate stenosis (50-75%). A short segment in the mid aspect of the right cavernous ICA demonstrates 75% focal luminal stenosis due to significant atherosclerotic calcified plaque. There is calcified plaque formation of the left cavernous carotid artery, with a moderate stenosis (50-75%). Normal right A1 segments of the anterior cerebral artery. Normal left A1 segments of the anterior cerebral artery. Normal intact anterior communicating artery (ACOM). Normal bilateral A2 segments of the anterior cerebral arteries. Normal right M1 and M2 segments of the middle cerebral arteries, with a normal M1 bifurcation. Normal left M1 and M2 segments of the middle cerebral arteries, with a normal M1 bifurcation. Normal right posterior communicating artery (PCOM). Normal left posterior communicating artery (PCOM). Normal bilateral vertebral arteries. Normal basilar artery with a normal basilar bifurcation. The visualized bilateral superior cerebellar (SCA) arteries are normal. Normal bilateral P1, P2 and visualized P3 segments of the posterior cerebral arteries. There is no demonstrated aneurysm of the [place]. There is no demonstrated abnormality of the visualized brain. AORTIC ARCH: There is atherosclerotic calcific plaque formation of the aortic arch and great vessels arising from the aortic arch, without a hemodynamically significant stenosis. There is a normal origin of the brachiocephalic, left common carotid, and left subclavian arteries. Mild atherosclerotic plaque calcified and noncalcified is present at the origins of the brachiocephalic, left common carotid, and left subclavian arteries, without a significant stenosis. RIGHT CAROTID ARTERIES: Normal right common carotid artery (CCA). There is moderate atherosclerotic plaque formation with moderate narrowing of the right carotid bulb. There is mild atherosclerotic plaque formation of the origin of the right internal carotid artery with less than 50% cross sectional diameter stenosis. Normal visualized cervical portion of the right internal carotid artery. Normal origin of the right external carotid artery (ECA). LEFT CAROTID ARTERIES: Normal left common carotid artery (CCA). Normal left common carotid bulb. There is moderate atherosclerotic plaque formation of the proximal one third of the left internal carotid artery with an estimated stenosis of 50-69% stenosis. Normal visualized cervical portion of the left internal carotid artery. Normal origin of the left external carotid artery (ECA). VERTEBRAL ARTERIES: Normal bilateral vertebral arteries. CT/CTA Head AND Neck W/ Contrast IMPRESSION: 1. Normal [place] without a demonstrated aneurysm or hemodynamically significant stenosis or intraluminal thrombus or occlusion. 2. 50-69% luminal stenosis of the proximal one third aspect of the left internal carotid artery of the neck due to atherosclerotic plaque 3. Less than 50% at the sclerotic stenosis of the right carotid bulb and origin of the ICA Electronically Signed: Joe Johnson MD at 9:20 EST ,
--- NOTE | 2022-05-07 07:37 | EDS_ITS ---
HPI History of Present Illness Chief Complaint: Hypotension Informant: patient and spouse/S.O. Onset/Context/Timing Onset: Today Narrative Narrative: Patient presents secondary to low blood pressure and dizziness. Patient had a stroke on March 16 with left-sided weakness and slurred speech. He states his strength in his left side is now about 60% of what it was. He states last evening his blood pressure was elevated. He took his blood pressure medication as prescribed and this morning woke up with blood pressure in the 90s systolic. He feels that his left-sided weakness is slightly worse than what it had been. Due to concern for another stroke he presented to the emergency room. Patient denies headache. He has no chest pain or shortness of breath. [facility] Medical History (Updated 05/07/22 @ 13:[address] Jil Dinero MD) Anxiety Chest pain Chronic pain Coronary artery disease CPAP (continuous positive airway pressure) dependence Depression Diabetic polyneuropathy Diabetic retinopathy DM2 (diabetes mellitus, type 2) Elevated lipase Elevated troponin Essential (primary) hypertension Former smoker GERD (gastroesophageal reflux disease) GI bleed Hearing loss, left Hearing loss, right Hernia History of COVID-19 Hyperlipidemia Hypothyroidism Ischemic stroke Migraine headache Myocardial infarct Narcolepsy Obstructive sleep apnea Osteoporosis Sleep apnea Vision loss of right eye Vitamin D deficiency Home Medications metoprolol tartrate 100 mg tablet 150 mg PO BID blood pressure 10/05/16 [History Last Taken 03/19/22 08:00] nortriptyline 10 mg capsule 30 mg PO DAILY migraines 10/05/16 [History Last Taken 03/19/22 08:00] calcium carbonate 500 mg calcium (1,250 mg) tablet 650 mg PO BID supplement 08/17/17 [History Last Taken 04/03/21 08:00] cholecalciferol (vitamin D3) 25 mcg (1,000 unit) tablet (Vitamin D3) 1,000 unit PO BID vitamin 08/17/17 [History Last Taken 04/03/21 08:00] omega-3 fatty acids-fish oil 340 mg-1,000 mg capsule (Fish Oil) 1,000 mg PO BID supplement 08/17/17 [History Last Taken 04/03/21 08:00] buspirone 10 mg tablet 10 mg PO BID mood 06/17/19 [History Last Taken 04/03/21 22:00] modafinil 200 mg tablet 200 mg PO DAILY narcolepsy 06/17/19 [History Last Taken 04/03/21 08:00] aspirin 81 mg chewable tablet 81 mg PO DAILY heart health 08/17/19 [History Last Taken 03/19/22 08:00] atorvastatin 10 mg tablet 40 mg PO QHS cholesterol 08/17/19 [History Last Taken 04/03/21 22:00] tamsulosin 0.4 mg capsule 0.4 mg PO DAILY urine 03/30/21 [History Last Taken 03/19/22 08:00] pregabalin 100 mg capsule 100 mg PO BID pain 03/19/22 [History Last Taken 03/19/22 08:00] sertraline 150 mg capsule 150 mg PO DAILY mood 03/19/22 [History Last Taken 03/19/22 08:00] acetaminophen 500 mg tablet 1,000 mg PO Q6H PRN PRN Pain Score 1-10 #1 TAB 04/16/22 [Rx Last Taken Unknown] insulin regular hum U-500 conc 500 unit/mL(3 mL) subcut pen (Humulin R U-500 (Conc) Insulin Kwikpen) 50 units (0.1 mL) subcut 1130 #0 mL 04/16/22 [Rx Last Taken Unknown] insulin regular hum U-500 conc 500 unit/mL(3 mL) subcut pen (Humulin R U-500 (Conc) Insulin Kwikpen) 50 units (0.1 mL) subcut 1630 #0 mL 04/16/22 [Rx Last Taken Unknown] insulin regular hum U-500 conc 500 unit/mL(3 mL) subcut pen (Humulin R U-500 (Conc) Insulin Kwikpen) 60 units (0.12 mL) subcut BREAKFAST #0 mL 04/16/22 [Rx Last Taken Unknown] magnesium chloride 64 mg (magnesium chloride) tablet,delayed release (Mag 64) 128 mg PO BID #60 tabs 04/16/22 [Rx Last Taken Unknown] metformin 500 mg tablet 500 mg PO TID blood sugar #90 tabs 04/16/22 [Rx Last Taken Unknown] potassium chloride 20 mEq tablet,extended release(part/cryst) (Klor-Con M) 20 meq PO BIDCM #60 tabs 04/16/22 [Rx Last Taken Unknown] amlodipine 10 mg tablet 10 mg PO DAILY 04/30/22 [History Last Taken Unknown] clopidogrel 75 mg tablet 75 mg PO DAILY Check with primary doctor #90 tabs 04/30/22 [Rx Last Taken Unknown] furosemide 40 mg tablet 40 mg PO DAILY #90 tabs 04/30/22 [Rx Last Taken Unknown] sacubitril 49 mg-valsartan 51 mg tablet (Entresto) 1 tab PO BID #180 tabs 04/30/22 [Rx Last Taken Unknown] Allergy/AdvReac Type Severity Reaction Status Date / Time No Known Allergies Allergy Verified 05/07/22 07:24 Family History Mother Diabetes Father Heart disease CVA (cerebral vascular accident) Surgical History History of back surgery History of cholecystectomy History of hernia surgery Social History household members: spouse and children housing: apartment current occupational status: disabled Smoking Status: Former smoker Tobacco: How many years used: 30 how long ago did patient quit smokin alcohol intake: never substance use type: does not use diet: diabetic caffeine: Yes Type: coffee Number of servings: 1 what type of physical activity do you participate in: walking ROS ROS ED Constitutional Constitutional ED: Denies chills or fever(s) Eyes Eyes: Denies change in vision or discharge from eye(s) ENT ENT ED: Denies discharge from eye(s), rhinorrhea or sore throat Cardiovascular Cardiovascular: Denies chest pain or palpitations Respiratory/Chest Respiratory/Chest: Denies cough or dyspnea Gastrointestinal Gastrointestinal: Denies abdominal pain, diarrhea, nausea or vomiting Genitourinary Genitourinary ED: Denies dysuria Musculoskeletal Musculoskeletal: Denies back pain or extremity pain Integumentary Denies Abrasions or rash Neurologic Neurologic: Reports weakness; Denies headache(s) Psychiatric Psychiatric: Denies anxiety or depression Allergic/Immunologic Allergic/Immunologic ED: Denies lip swelling or urticaria EXAM Physical Exam Const Vital Signs: 05/07/22 07:22 05/07/22 07:30 05/07/22 07:31 Temperature 97.1 F L Temperature Source Temporal Pulse Rate 70 72 Respiratory Rate 14 12 Respiratory Effort Normal Non-Labored Respiratory Pattern Normal Blood Pressure 104/68 117/81 H Blood Pressure Mean 80 93 Pulse Ox 100 97 Oxygen Delivery Method Room Air Room Air 05/07/22 10:34 Temperature Temperature Source Pulse Rate 67 Respiratory Rate 18 Respiratory Effort Respiratory Pattern Blood Pressure 134/76 H Blood Pressure Mean 95 Pulse Ox 97 Oxygen Delivery Method Room Air Positive well nourished and well developed General Appearance ED: well developed HEENT Reports normocephalic and head/scalp atraumatic Eyes PERRL and EOMs intact bilaterally Neck supple Chest Wall inspection of chest normal and palpation of chest normal Resp normal respiratory effort and clear to auscultation bilaterally Cardio regular rate and regular rhythm GI normal to inspection, nondistended, normoactive bowel sounds Palpation: soft Extremity normal to inspection Neuro oriented x3 Neuro Narrative: Left lower extremity weakness and unable to lift leg off bed. Good range of motion and strength in the left upper extremity. Sensorium / Orientation: alert Psych mental status grossly normal Skin no rashes or lesions noted MDM MDM MDM Narrative Medical decision making narrative: EKG and lab work obtained. Patient given 500 cc IV fluid bolus. CTA of the head and neck ordered. Lab Data Attestation: I reviewed the patient's lab results. Labs: Laboratory Results - last 24 hr 05/07/22 05/07/22 07:50 07:50 WBC 8.7 RBC 4.99 Hgb 14.9 Hct 40.7 MCV 81.6 MCH 29.9 MCHC 36.6 H RDW Std Deviation 35.1 RDW Coeff of Eben 11.9 Plt Count 234 MPV 10.2 Immature Gran % (Auto) 0.200 Neut % (Auto) 69.8 Lymph % (Auto) 19.9 [place] % (Auto) 8.3 Eos % (Auto) 1.5 Baso % (Auto) 0.3 Absolute Neuts (auto) 6.1 Absolute Lymphs (auto) 1.73 Nucleated RBC % 0 Sodium 136 Potassium 4.0 Chloride 101 Carbon Dioxide 27.0 Anion Gap 8 BUN 32 H Creatinine 1.63 H Estim Creat Clear Calc 40.23 Est GFR (MDRD) Af Amer 55 L Est GFR (MDRD) Non-Af 45 L BUN/Creatinine Ratio 19.6 Glucose 252 H Calcium 9.4 Radiography Diagnostic Testing: Clinical Impression(s) from Imaging Studies Head/Neck CTA 05/07/22 07:35 IMPRESSION: 1. Normal [place] without a demonstrated aneurysm or hemodynamically significant stenosis or intraluminal thrombus or occlusion. 2. 50-69% luminal stenosis of the proximal one third aspect of the left internal carotid artery of the neck due to atherosclerotic plaque 3. Less than 50% at the sclerotic stenosis of the right carotid bulb and origin of the ICA Electronically Signed: Joe Johnson MD at 9:20 EST , Brain MRI 05/07/22 10:19 IMPRESSION: 1. Near complete resolution of previously seen bright diffusion weighted signal on the right side of the pina related to a recent acute infarct as seen on March 16, 2022 study. Only faint signal remains in this region, see image #11/[id number] series 4. There are no new areas of diffusion weighted signal abnormality to indicate acute infarction. Electronically Signed: Joe Johnson MD at 13:12 EST , EKG Initial EKG: Attestation: I personally reviewed and interpreted this EKG as follows: Interpretation: Sinus Rhythm (Sinus at 70 with no acute ischemia.) Treatment and Re-Evaluation Narrative: Lab work is unremarkable. CTA of the head and neck reveal 50 to 69% luminal stenosis of the proximal left internal carotid. Less than 50% stenosis of the right carotid bulb. Patient continues to feel slightly more weak when compared to his previous. In light of this MRI of the brain is obtained. MRI reveals near complete resolution of this previously seen bright signal from his stroke. There is no new area of signal abnormality to indicate acute infarct. Patient is reassured with this. Blood pressure has been stable here. He will be discharged to home for follow-up. Discharge Plan Triage Chief Complaint: Hypotension ED Provider: Jil Dinero Dx/Rx/DC Orders Clinical Impression: Transient hypotension, Weakness Instructions: ED Low Blood Pressure, All Causes, ED Weakness (Uncertain Cause) Prescriptions: No Action amlodipine 10 mg tablet 10 mg PO DAILY Entresto 49-51 mg tablet 1 tab PO BID Qty: 180 3RF clopidogrel 75 mg tablet 75 mg PO DAILY Qty: 90 3RF furosemide 40 mg tablet 40 mg PO DAILY Qty: 90 3RF metoprolol tartrate 100 MG tablet 150 mg PO BID nortriptyline 10 MG capsule 30 mg PO DAILY calcium carbonate 500 MG tablet 650 mg PO BID Fish Oil 1 EACH capsule 1,000 mg PO BID cholecalciferol (vitamin D3) [Vitamin D3] 1,000 UNIT tablet 1,000 unit PO BID modafinil 200 MG tablet 200 mg PO DAILY buspirone 10 MG tablet 10 mg PO BID atorvastatin 10 MG tablet 40 mg PO QHS aspirin 81 MG tablet,chewable 81 mg PO DAILY tamsulosin 0.4 mg Capsule 0.4 mg PO DAILY pregabalin 100 mg Capsule 100 mg PO BID sertraline 150 mg Capsule 150 mg PO DAILY acetaminophen 500 mg Tablet 1,000 mg PO Q6H PRN PRN (Reason: Pain Score 1-10) Qty: 1 0RF potassium chloride [Klor-Con M20] 20 mEq Tablet,Er Particles/Crystals 20 meq PO BIDCM Qty: 60 0RF Mag 64 64 mg Tablet,Delayed Release (Dr/Ec) 128 mg PO BID Qty: 60 0RF Humulin R U-500 (Conc) Kwikpen 500 unit/mL (3 mL) Insulin Pen 60 units subcut BREAKFAST Qty: 0 0RF Humulin R U-500 (Conc) Kwikpen 500 unit/mL (3 mL) Insulin Pen 50 units subcut 1130 Qty: 0 0RF Humulin R U-500 (Conc) Kwikpen 500 unit/mL (3 mL) Insulin Pen 50 units subcut 1630 Qty: 0 0RF metformin 500 mg Tablet 500 mg PO TID Qty: 90 0RF Rx Instructions: take this medication with meals Primary Care Provider: [facility] Referrals: [facility] [Primary Care Provider] - 1-2 Weeks Disposition Disposition: Home, Self Care
[2022-05-07 08:00] LABS: Absolute Lymphocyte Count 1.73 X10^3/uL (0.83-4.51); Absolute Neutrophil Count 6.1 X10^3/uL (2.0-7.7); Basophil# 0.03 X10^3/uL; Basophil% 0.3 % (0-1); Eosinophil# 0.13 X10^3/uL; Eosinophils% 1.5 % (0-5); Hematocrit 40.7 % (40-54); Hemoglobin 14.9 g/dL (13.0-16.5); Lymphocyte # 1.73 X10^3/ul (0.83-4.51); Lymphocyte % 19.9 % (19-41); Mean Corp Hgb Conc 36.6 g/dL (32-36); Mean Corpuscular Hgb 29.9 pg (27.0-32.0); Mean Corpuscular Volume 81.6 fL (80-94); Mean Platelet Vol. 10.2 fl (6.2-12.0); Monocyte# 0.72 X10^3/uL; Monocyte% 8.3 % (0-10); NRBC Flagged by Analyzer 0 % (0-5); Neutrophil # 6.05 X10^3/uL (2.7-7.7); Neutrophil % 69.8 % (47-70); Platelet Count 234 K/mm3 (150-450); RBC Distribution Width CV 11.9 % (11.6-14.6); RBC Distribution Width SD 35.1 fl (35.1-43.9); Red Blood Count 4.99 M/mm3 (4.6-6.2); White Blood Count 8.7 K/mm3 (4.4-11.0)
[2022-05-07 08:10] LABS: Anion Gap 8 (5-15); BUN 32 mg/dL (7-18); BUN/Creat Ratio 19.6 RATIO (10-20); Calcium,Total 9.4 mg/dL (8.5-10.1); Chloride 101 mmol/L (98-107); Creatinine, Serum 1.63 mg/dL (0.70-1.30); EST Glomerular Filtration Rate 45 mL/min (>60); Est Glom Filt Rate - Afr Amer 55 mL/min (>60); Estimated Creatinine Clearance 40.23 ml/min; Glucose 252 mg/dL (74-106); Sodium Level 136 mmol/L (136-145)
--- NOTE | 2022-05-07 10:19 | MRI_ITS ---
STUDY: MRI BRAIN WITHOUT CONTRAST REASON FOR EXAM: Male, 67 years old. weakness -- recent stroke, increased weakness TECHNIQUE: Standardized multiplanar fat and water weighted pulse sequences were obtained. COMPARISON: Head CT dated May 07, 2022. MRI of the brain dated March 16, 2022 FINDINGS: Near complete resolution of previously seen bright diffusion weighted signal on the right side of the pina related to a recent acute infarct as seen on March 16, 2022 study. Only faint signal remains in this region, see image #[id number] series 4. There are no new areas of diffusion weighted signal abnormality to indicate acute infarction. There is mild cerebral atrophy with widening of the extra-axial spaces and ventricular dilatation. There are a limited number of small white matter hyperintensities, distributed throughout the deep white matter tracts of the cerebral hemispheres, consistent with mild chronic white matter ischemic changes. Normal T2* images of the brain without demonstrated susceptibility artifact. There is no demonstrated hemosiderin stain. Normal bilateral basal ganglia. Normal thalami. There is no extra-axial fluid accumulation. Normal flow voids within the major intracranial circulation suggesting patency by spin echo criteria. Normal sella turcica, pituitary gland, infundibular stalk, optic chiasm and hypothalamus. Normal tectal plate and pineal gland. Normal midbrain and medulla. Normal cerebellum. Normal basal cisterns. Normal bilateral temporal bones. Normal bilateral internal auditory canals. No demonstrated orbital abnormality, within the constraints of a routine brain study. Normal visualized paranasal sinuses. Normal calvarium and skull base. Normal visualized soft tissue structures. Normal visualized upper cervical spine. MRI/Brain without Contrast IMPRESSION: 1. Near complete resolution of previously seen bright diffusion weighted signal on the right side of the pina related to a recent acute infarct as seen on March 16, 2022 study. Only faint signal remains in this region, see image #[id number] series 4. There are no new areas of diffusion weighted signal abnormality to indicate acute infarction. Electronically Signed: Joe Johnson MD at 13:12 EST ,
[2022-05-07 10:34] VITALS: BP 134/76; PULSE 67; RESP 18; O2SAT 97
[2022-05-07 14:06] VITALS: BP 140/91; PULSE 65; RESP 16; O2SAT 95
== END 2022-05-07 14:07 | disposition home or self-care (01) ==
PROVIDERS: Emergency Provider Emergency Medicine; Visit Provider Emergency Medicine
DX: I95.89 Other hypotension (principal); E11.42 Type 2 diabetes mellitus with diabetic polyneuropathy; R53.1 Weakness; G47.33 Obstructive sleep apnea (adult) (pediatric); I10 Essential (primary) hypertension; I25.10 Atherosclerotic heart disease of native coronary artery without angina pectoris; E55.9 Vitamin D deficiency, unspecified; Z82.3 Family history of stroke; E78.5 Hyperlipidemia, unspecified; Z87.891 Personal history of nicotine dependence; M81.0 Age-related osteoporosis without current pathological fracture; E03.9 Hypothyroidism, unspecified
CPT/HCPCS: 70496; 70498; 70551; 80048; 85025; 93005; 96360; 99284; J7040; Q9967; A4216

== ENCOUNTER 2022-06-01 14:17 | Observation (INO) | payer MEDICARE, SELFPAY ==
[2022-06-01] VITALS (10 sets, daily range): BP systolic 136–204; BP diastolic 70–100; PULSE 61–80; RESP 15–23; TEMP 36.6–36.9; O2SAT 95–98; BMI 30.7; BMI 29.7
--- NOTE | 2022-06-01 14:22 | ED.RN ---
DR. FOSTER TO TRIAGE TO EVALUATE PATIENT. NO STROKE ALERT.
--- NOTE | 2022-06-01 14:31 | CT_ITS ---
STUDY: CTA HEAD AND NECK WITH CONTRAST REASON FOR EXAM: Male, 67 years old. dizziness RADIATION DOSAGE (If Supplied By Facility): CTDIvol = ( 20.18 ) mGy, DLP = ( 1482.27 ) mGycm TECHNIQUE: CT angiography was performed with a multi-detector CT scanner. Data acquisition was obtained from the skull base through the vertex following intravenous administration of ISOVUE 370 100 ML. MIP images were reconstructed from the axial data set. Post-processing of the angiographic images was performed, with multiplanar reformation and 3D reconstruction. Individualized dose optimization techniques were used for this CT. COMPARISON: CT June 01, 2022. CTA brain May 07, 2022 . MRI brain May 07, 2023. FINDINGS: Normal bilateral petrous carotid arteries. Normal right cavernous carotid artery with a normal supraclinoid bifurcation. Normal left cavernous carotid artery with a normal supraclinoid bifurcation. Normal right A1 segments of the anterior cerebral artery. Normal left A1 segments of the anterior cerebral artery. There is non-visualization of the anterior communicating artery (ACOM). Normal bilateral A2 segments of the anterior cerebral arteries. Normal right M1 and M2 segments of the middle cerebral arteries, with a normal M1 bifurcation. Normal left M1 and M2 segments of the middle cerebral arteries, with a normal M1 bifurcation. There is non-visualization of the right posterior communicating artery (PCOM). There is non-visualization of the left posterior communicating artery (PCOM). Normal bilateral vertebral arteries. Normal basilar artery with a normal basilar bifurcation. The visualized bilateral superior cerebellar (SCA) arteries are normal. Normal bilateral P1, P2 and visualized P3 segments of the posterior cerebral arteries. There is no demonstrated aneurysm of the [place]. There is no demonstrated abnormality of the visualized brain. AORTIC ARCH: Normal visualized aortic arch. Normal origins of the brachiocephalic, left common carotid, and left subclavian arteries. RIGHT CAROTID ARTERIES: Normal right common carotid artery (CCA). Normal right common carotid bulb. Normal origin of the right internal carotid (ICA) artery without a hemodynamically significant stenosis. Normal visualized cervical portion of the right internal carotid artery. Normal origin of the right external carotid artery (ECA). LEFT CAROTID ARTERIES: Normal left common carotid artery (CCA). Normal left common carotid bulb. Normal origin of the left internal carotid (ICA) artery without a hemodynamically significant stenosis. Normal visualized cervical portion of the left internal carotid artery. Normal origin of the left external carotid artery (ECA). VERTEBRAL ARTERIES: Small amount of plaque at the origins of the right and left vertebral arteries with no significant stenosis. CT/CTA Head AND Neck W/ Contrast IMPRESSION: Plaques the origin of the vertebral arteries bilaterally. No significant stenosis. Electronically Signed: Ventura Hoffman MD at 17:25 EST ,
--- NOTE | 2022-06-01 14:31 | CT_ITS ---
STUDY: CT BRAIN WITHOUT CONTRAST REASON FOR EXAM: Male, 67 years old. dizziness RADIATION DOSAGE (If Supplied By Facility): CTDIvol = ( 44.99 ) mGy, DLP = ( 1482.27 ) mGycm TECHNIQUE: Transaxial CT imaging of the brain was performed without administration of intravenous contrast material. Individualized dose optimization techniques were used for this CT. COMPARISON: MRI brain May 07, 2022. CTA brain May 07, 2012. CT brain March 16, 2022 FINDINGS: Normal soft tissue structures. Normal calvarium. Intracranial atherosclerosis. There is mild cerebral atrophy with widening of the extra-axial spaces and ventricular dilatation. There are areas of decreased attenuation within the white matter tracts of the supratentorial brain, consistent with microvascular disease changes. Normal basal ganglia and thalami. Normal brainstem. Normal cerebellum. There is no intracranial hemorrhage. There are no findings of an acute ischemic infarction. Normal visualized paranasal sinuses. CT/Brain/Head without Contrast IMPRESSION: Chronic involutional changes of the brain. Electronically Signed: Ventura Hoffman MD at 17:07 EST ,
--- NOTE | 2022-06-01 14:32 | EKG12_ITS ---
Test Reason : FALL Blood Pressure : / mmHG Vent. Rate : 072 BPM Atrial Rate : 072 BPM P-R Int : 184 ms QRS Dur : 094 ms QT Int : 460 ms P-R-T Axes : 052 013 108 degrees QTc Int : 503 ms Normal sinus rhythm Inferior infarct , age undetermined T wave abnormality, consider lateral ischemia Abnormal ECG Confirmed by ASIYA FERREIRA, MINNIE ([id number]), offline editor GENARO JIMENEZ [id number]) on 06/03/2022 12:47:02 PM Referred By: ROSALIA Confirmed By:MINNIE BRADEN MD
--- NOTE | 2022-06-01 14:33 | EX.ED.DYSGE1 ---
HPI History of Present Illness Chief Complaint: Dizziness Narrative Narrative: 67-year-old male presenting with lightheadedness. He describes it as feeling dizzy. Does not think it is vertiginous in nature. He states this started when he woke up at about 11 AM. He is not had any facial droop, slurred speech, paresthesias. He does feel weak. He states he felt well enough to go to breakfast today and when he arrived at [facility] he had a fall because he was feeling lightheaded. No head injury or LOC. Patient is on aspirin 81 mg p.o. daily and Plavix 75 mg p.o. daily. He is not on any other blood thinners. Patient is concerned because he has a history of stroke. He states it was then [facility] Medical History (Updated 05/15/22 @ 00:01 by Delia Guido) Anxiety Chest pain Chronic pain Coronary artery disease CPAP (continuous positive airway pressure) dependence Depression Diabetic polyneuropathy Diabetic retinopathy DM2 (diabetes mellitus, type 2) Elevated lipase Elevated troponin Essential (primary) hypertension Former smoker GERD (gastroesophageal reflux disease) GI bleed Hearing loss, left Hearing loss, right Hernia History of COVID-19 Hyperlipidemia Hypothyroidism Ischemic stroke Migraine headache Myocardial infarct Narcolepsy Obstructive sleep apnea Osteoporosis Sleep apnea Vision loss of right eye Vitamin D deficiency Home Medications metoprolol tartrate 100 mg tablet 150 mg PO BID blood pressure 10/05/16 [History Last Taken 03/19/22 08:00] nortriptyline 10 mg capsule 30 mg PO DAILY migraines 10/05/16 [History Last Taken 03/19/22 08:00] calcium carbonate 500 mg calcium (1,250 mg) tablet 650 mg PO BID supplement 08/17/17 [History Last Taken 04/03/21 08:00] cholecalciferol (vitamin D3) 25 mcg (1,000 unit) tablet (Vitamin D3) 1,000 unit PO BID vitamin 08/17/17 [History Last Taken 04/03/21 08:00] omega-3 fatty acids-fish oil 340 mg-1,000 mg capsule (Fish Oil) 1,000 mg PO BID supplement 08/17/17 [History Last Taken 04/03/21 08:00] buspirone 10 mg tablet 10 mg PO BID mood 06/17/19 [History Last Taken 04/03/21 22:00] modafinil 200 mg tablet 200 mg PO DAILY narcolepsy 06/17/19 [History Last Taken 04/03/21 08:00] aspirin 81 mg chewable tablet 81 mg PO DAILY heart health 08/17/19 [History Last Taken 03/19/22 08:00] atorvastatin 10 mg tablet 40 mg PO QHS cholesterol 08/17/19 [History Last Taken 04/03/21 22:00] tamsulosin 0.4 mg capsule 0.4 mg PO DAILY urine 03/30/21 [History Last Taken 03/19/22 08:00] pregabalin 100 mg capsule 100 mg PO BID pain 03/19/22 [History Last Taken 03/19/22 08:00] sertraline 150 mg capsule 150 mg PO DAILY mood 03/19/22 [History Last Taken 03/19/22 08:00] acetaminophen 500 mg tablet 1,000 mg PO Q6H PRN PRN Pain Score 1-10 #1 TAB 04/16/22 [Rx Last Taken Unknown] insulin regular hum U-500 conc 500 unit/mL(3 mL) subcut pen (Humulin R U-500 (Conc) Insulin Kwikpen) 50 units (0.1 mL) subcut 1130 #0 mL 04/16/22 [Rx Last Taken Unknown] insulin regular hum U-500 conc 500 unit/mL(3 mL) subcut pen (Humulin R U-500 (Conc) Insulin Kwikpen) 50 units (0.1 mL) subcut 1630 #0 mL 04/16/22 [Rx Last Taken Unknown] insulin regular hum U-500 conc 500 unit/mL(3 mL) subcut pen (Humulin R U-500 (Conc) Insulin Kwikpen) 60 units (0.12 mL) subcut BREAKFAST #0 mL 04/16/22 [Rx Last Taken Unknown] magnesium chloride 64 mg (magnesium chloride) tablet,delayed release (Mag 64) 128 mg PO BID #60 tabs 04/16/22 [Rx Last Taken Unknown] metformin 500 mg tablet 500 mg PO TID blood sugar #90 tabs 04/16/22 [Rx Last Taken Unknown] potassium chloride 20 mEq tablet,extended release(part/cryst) (Klor-Con M) 20 meq PO BIDCM #60 tabs 04/16/22 [Rx Last Taken Unknown] amlodipine 10 mg tablet 10 mg PO DAILY 04/30/22 [History Last Taken Unknown] clopidogrel 75 mg tablet 75 mg PO DAILY Check with primary doctor #90 tabs 04/30/22 [Rx Last Taken Unknown] furosemide 40 mg tablet 40 mg PO DAILY #90 tabs 04/30/22 [Rx Last Taken Unknown] sacubitril 49 mg-valsartan 51 mg tablet (Entresto) 1 tab PO BID #180 tabs 04/30/22 [Rx Last Taken Unknown] Allergy/AdvReac Type Severity Reaction Status Date / Time No Known Allergies Allergy Verified 06/01/22 14:20 Family History Mother Diabetes Father Heart disease CVA (cerebral vascular accident) Surgical History History of back surgery History of cholecystectomy History of hernia surgery Social History household members: spouse and children housing: apartment current occupational status: disabled Smoking Status: Former smoker Tobacco: How many years used: 30 how long ago did patient quit smokin alcohol intake: never substance use type: does not use diet: diabetic caffeine: Yes Type: coffee Number of servings: 1 what type of physical activity do you participate in: walking EXAM Physical Exam Const Vital Signs: 06/01/22 14:17 Temperature 98.4 F Temperature Source Temporal Pulse Rate 80 Respiratory Rate 16 Blood Pressure 159/98 H Blood Pressure Mean 118 Pulse Ox 95 Oxygen Delivery Method Room Air Discharge Plan Triage Chief Complaint: Dizziness Dx/Rx/DC Orders Prescriptions: No Action amlodipine 10 mg tablet 10 mg PO DAILY Entresto 49-51 mg tablet 1 tab PO BID Qty: 180 3RF clopidogrel 75 mg tablet 75 mg PO DAILY Qty: 90 3RF furosemide 40 mg tablet 40 mg PO DAILY Qty: 90 3RF metoprolol tartrate 100 MG tablet 150 mg PO BID nortriptyline 10 MG capsule 30 mg PO DAILY calcium carbonate 500 MG tablet 650 mg PO BID Fish Oil 1 EACH capsule 1,000 mg PO BID cholecalciferol (vitamin D3) [Vitamin D3] 1,000 UNIT tablet 1,000 unit PO BID modafinil 200 MG tablet 200 mg PO DAILY buspirone 10 MG tablet 10 mg PO BID atorvastatin 10 MG tablet 40 mg PO QHS aspirin 81 MG tablet,chewable 81 mg PO DAILY tamsulosin 0.4 mg Capsule 0.4 mg PO DAILY pregabalin 100 mg Capsule 100 mg PO BID sertraline 150 mg Capsule 150 mg PO DAILY acetaminophen 500 mg Tablet 1,000 mg PO Q6H PRN PRN (Reason: Pain Score 1-10) Qty: 1 0RF potassium chloride [Klor-Con M20] 20 mEq Tablet,Er Particles/Crystals 20 meq PO BIDCM Qty: 60 0RF Mag 64 64 mg Tablet,Delayed Release (Dr/Ec) 128 mg PO BID Qty: 60 0RF Humulin R U-500 (Conc) Kwikpen 500 unit/mL (3 mL) Insulin Pen 60 units subcut BREAKFAST Qty: 0 0RF Humulin R U-500 (Conc) Kwikpen 500 unit/mL (3 mL) Insulin Pen 50 units subcut 1130 Qty: 0 0RF Humulin R U-500 (Conc) Kwikpen 500 unit/mL (3 mL) Insulin Pen 50 units subcut 1630 Qty: 0 0RF metformin 500 mg Tablet 500 mg PO TID Qty: 90 0RF Rx Instructions: take this medication with meals [facility] [facility] [Primary Care Provider] -
--- NOTE | 2022-06-01 14:37 | EDS_ITS ---
HPI History of Present Illness Chief Complaint: Dizziness Narrative Narrative: 67-year-old male presenting with lightheadedness. He describes it as feeling dizzy. Does not think it is vertiginous in nature. He states this started when he woke up at about 11 AM. He is not had any facial droop, slurred speech, paresthesias. He does feel weak. He states he felt well enough to go to breakfast today and when he arrived at [facility] he had a fall because he was feeling lightheaded. No head injury or LOC. Patient is on aspirin 81 mg p.o. daily and Plavix 75 mg p.o. daily. He is not on any other blood thinners. Patient is concerned because he has a history of stroke. He states it was in March. He is in rehab currently for stroke. At that point he had weakness on the left side of his body. He reports that it is improved over time. He does not have a return of the weakness on the left side of the body. He denies chest pain or shortness of breath. No fever, chills. He felt otherwise well before going to last evening. [facility] Medical History Anxiety Chest pain Chronic pain Coronary artery disease CPAP (continuous positive airway pressure) dependence Depression Diabetic polyneuropathy Diabetic retinopathy DM2 (diabetes mellitus, type 2) Elevated lipase Elevated troponin Essential (primary) hypertension Former smoker GERD (gastroesophageal reflux disease) GI bleed Hearing loss, left Hearing loss, right Hernia History of COVID-19 Hyperlipidemia Hypothyroidism Ischemic stroke Migraine headache Myocardial infarct Narcolepsy Obstructive sleep apnea Osteoporosis Sleep apnea Vision loss of right eye Vitamin D deficiency Home Medications metoprolol tartrate 100 mg tablet 150 mg PO BID blood pressure 10/05/16 [History Last Taken 03/19/22 08:00] nortriptyline 10 mg capsule 30 mg PO DAILY migraines 10/05/16 [History Last Taken 03/19/22 08:00] calcium carbonate 500 mg calcium (1,250 mg) tablet 650 mg PO BID supplement 08/17/17 [History Last Taken 04/03/21 08:00] cholecalciferol (vitamin D3) 25 mcg (1,000 unit) tablet (Vitamin D3) 1,000 unit PO BID vitamin 08/17/17 [History Last Taken 04/03/21 08:00] omega-3 fatty acids-fish oil 340 mg-1,000 mg capsule (Fish Oil) 1,000 mg PO BID supplement 08/17/17 [History Last Taken 04/03/21 08:00] buspirone 10 mg tablet 10 mg PO BID mood 06/17/19 [History Last Taken 04/03/21 22:00] modafinil 200 mg tablet 200 mg PO DAILY narcolepsy 06/17/19 [History Last Taken 04/03/21 08:00] aspirin 81 mg chewable tablet 81 mg PO DAILY heart health 08/17/19 [History Last Taken 03/19/22 08:00] atorvastatin 10 mg tablet 40 mg PO QHS cholesterol 08/17/19 [History Last Taken 04/03/21 22:00] tamsulosin 0.4 mg capsule 0.4 mg PO DAILY urine 03/30/21 [History Last Taken 03/19/22 08:00] pregabalin 100 mg capsule 100 mg PO BID pain 03/19/22 [History Last Taken 03/19/22 08:00] sertraline 150 mg capsule 150 mg PO DAILY mood 03/19/22 [History Last Taken 03/19/22 08:00] acetaminophen 500 mg tablet 1,000 mg PO Q6H PRN PRN Pain Score 1-10 #1 TAB 04/16/22 [Rx Last Taken Unknown] insulin regular hum U-500 conc 500 unit/mL(3 mL) subcut pen (Humulin R U-500 (Conc) Insulin Kwikpen) 50 units (0.1 mL) subcut 1130 #0 mL 04/16/22 [Rx Last Taken Unknown] insulin regular hum U-500 conc 500 unit/mL(3 mL) subcut pen (Humulin R U-500 (Conc) Insulin Kwikpen) 50 units (0.1 mL) subcut 1630 #0 mL 04/16/22 [Rx Last Taken Unknown] insulin regular hum U-500 conc 500 unit/mL(3 mL) subcut pen (Humulin R U-500 (Conc) Insulin Kwikpen) 60 units (0.12 mL) subcut BREAKFAST #0 mL 04/16/22 [Rx Last Taken Unknown] magnesium chloride 64 mg (magnesium chloride) tablet,delayed release (Mag 64) 128 mg PO BID #60 tabs 04/16/22 [Rx Last Taken Unknown] potassium chloride 20 mEq tablet,extended release(part/cryst) (Klor-Con M) 20 meq PO BIDCM #60 tabs 04/16/22 [Rx Last Taken Unknown] amlodipine 10 mg tablet 10 mg PO DAILY 04/30/22 [History Last Taken Unknown] clopidogrel 75 mg tablet 75 mg PO DAILY Check with primary doctor #90 tabs 04/30/22 [Rx Last Taken Unknown] furosemide 40 mg tablet 40 mg PO DAILY #90 tabs 04/30/22 [Rx Last Taken Unknown] sacubitril 49 mg-valsartan 51 mg tablet (Entresto) 1 tab PO BID #180 tabs 04/30/22 [Rx Last Taken Unknown] Allergy/AdvReac Type Severity Reaction Status Date / Time No Known Allergies Allergy Verified 06/01/22 14:20 Family History Mother Diabetes Father Heart disease CVA (cerebral vascular accident) Surgical History History of back surgery History of cholecystectomy History of hernia surgery Social History household members: spouse and children housing: apartment current occupational status: disabled Smoking Status: Former smoker Tobacco: How many years used: 30 how long ago did patient quit smokin alcohol intake: never substance use type: does not use diet: diabetic caffeine: Yes Type: coffee Number of servings: 1 what type of physical activity do you participate in: walking ROS ROS ED ROS Narrative Lightheadedness Constitutional Constitutional ED: Denies chills or fever(s) Eyes Eyes: Denies change in vision or diplopia ENT ENT ED: Denies rhinorrhea or sore throat Cardiovascular Cardiovascular: Denies chest pain or palpitations Respiratory/Chest Respiratory/Chest: Denies cough or dyspnea Gastrointestinal Gastrointestinal: Denies abdominal pain or constipation Genitourinary Genitourinary ED: Denies dysuria or hematuria Musculoskeletal Musculoskeletal: Denies arthralgias or back pain Integumentary Denies abscess Neurologic Neurologic: Denies headache(s) or paresthesias Psychiatric Psychiatric: Denies anxiety or depression EXAM Physical Exam Const Vital Signs: 06/01/22 14:17 06/01/22 15:27 06/01/22 15:27 Temperature 98.4 F Temperature Source Temporal Pulse Rate 80 70 Pulse Rate [Lying] Pulse Rate [Sitting (for 1 minute prior to obtaining)] Pulse Rate [Standing (for 1 minute prior to obtaining)] Respiratory Rate 16 23 H Respiratory Effort Normal Respiratory Pattern Normal Blood Pressure 159/98 H 166/89 H Blood Pressure [Lying] Blood Pressure [Sitting (for 1 minute prior to obtaining)] Blood Pressure [Standing (for 1 minute prior to obtaining)] Blood Pressure Mean 118 114 Blood Pressure Mean [Lying] Blood Pressure Mean [Sitting (for 1 minute prior to obtaining)] Blood Pressure Mean [Standing (for 1 minute prior to obtaining)] Pulse Ox 95 95 Oxygen Delivery Method Room Air Room Air 06/01/22 16:56 06/01/22 17:34 06/01/22 19:04 Temperature Temperature Source Pulse Rate 70 65 Pulse Rate [Lying] 72 Pulse Rate [Sitting (for 1 minute prior to obtaining)] 73 Pulse Rate [Standing (for 1 minute prior to obtaining)] 75 Respiratory Rate 20 H 15 Respiratory Effort Respiratory Pattern Blood Pressure 185/97 H 204/100 H Blood Pressure [Lying] 188/91 H Blood Pressure [Sitting (for 1 minute prior to obtaining)] 174/78 H Blood Pressure [Standing (for 1 minute prior to obtaining)] 152/78 H Blood Pressure Mean 126 134 Blood Pressure Mean [Lying] 123 Blood Pressure Mean [Sitting (for 1 minute prior to obtaining)] 110 Blood Pressure Mean [Standing (for 1 minute prior to obtaining)] 102 Pulse Ox 97 98 Oxygen Delivery Method Room Air Room Air Positive well nourished General Appearance ED: NAD HEENT Reports moist mucous membranes and dry mucous membranes Mouth ED: Yes dry mucous membranes Mouth: dry mucous membranes Eyes PERRL and EOMs intact bilaterally Neck no lymphadenopathy Chest Wall inspection of chest normal and palpation of chest normal Resp normal respiratory effort and clear to auscultation bilaterally Auscultation: Negative for rales, rhonchi or wheezes GI normal to inspection, nondistended, normoactive bowel sounds Back/Spine no CVA tenderness Neuro oriented x3 and CN's II-XII intact bilaterally Sensorium / Orientation: alert Speech: speech normal Motor Exam: strength 5/5 throughout Psych mental status grossly normal Skin no wounds NIHSS NIHSS Initial: 1a Level of Consciousness: 0 1b LOC Questions (Score 2 if aphasic/stupor): 0 1c LOC Commands (Only score 1st attempt): 0 2 Best Gaze (If aphasic, use reflexive mvmts.): 0 3 Visual: 0 4 Facial Palsy: 0 5 Motor Arm Right (UN = amputation/fusion): 0 5 Motor Arm Left: 0 6 Motor Leg Right: 0 6 Motor Leg Left: 0 7 Limb ataxia (Only + if out of proportion): 0 8 Sensory (Aphasia/stupor=0 or 1, coma=2): 0 9 Best Language: 0 10 Dysarthria (mute, coma=2, intubated=UN): 0 11 Extinction and Inattention (only scored if +): 0 Total Score: 0 MDM MDM MDM Narrative Medical decision making narrative: Patient presenting with lightheadedness. He is concerned because he has a history of stroke although he does not have any neurologic deficits. His NIH stroke scale score is 0. Blood work today shows a normal CBC. Creatinine is actually improving to 1.37. Electrolytes unremarkable. LFTs are normal. Glucose is elevated at 426 without anion gap. High-sensitivity troponin 44. EKG on my interpretation shows sinus rhythm with a ventricular rate of 72 bpm. T wave inversions noted with depressions in 1 and aVL. There is no significant interval change from previous EKG. Chest x-ray on my interpretation shows no acute cardiopulmonary process. CT brain and CTA show no significant findings. I checked orthostatic vital signs and he has significantly orthostatic. He is blood pressure drops from 188/52-152/78. He is symptomatic with this. He was given a liter of IV fluids. Did attempt to ambulate him again and he is very symptomatic and unstable. Given this I feel he would benefit from admission. Discussed with the hospitalist. I do not believe he is had a stroke. Impression: 1. Orthostatic hypotension 2. Lightheadedness 3. Falls Lab Data Attestation: I reviewed the patient's lab results. Labs: Laboratory Results - last 24 hr 06/01/22 06/01/22 06/01/22 15:03 15:03 15:34 WBC 5.9 RBC 5.35 Hgb 15.3 Hct 45.0 MCV 84.1 MCH 28.6 MCHC 34.0 RDW Std Deviation 36.8 RDW Coeff of Eben 12.2 Plt Count 189 MPV 10.2 Immature Gran % (Auto) 0.300 Neut % (Auto) 75.2 H Lymph % (Auto) 15.6 L [place] % (Auto) 7.0 Eos % (Auto) 1.2 Baso % (Auto) 0.7 Absolute Neuts (auto) 4.4 Absolute Lymphs (auto) 0.92 Nucleated RBC % 0 Sodium 133 L Potassium 3.9 Chloride 97 L Carbon Dioxide 30.0 Anion Gap 6 BUN 18 Creatinine 1.37 H Estim Creat Clear Calc 47.86 Est GFR (MDRD) Af Amer 67 Est GFR (MDRD) Non-Af 55 L BUN/Creatinine Ratio 13.1 Glucose 426 H Calcium 9.3 Total Bilirubin 0.70 AST 16 ALT 40 Alkaline Phosphatase 112 Troponin I High Sens 44 Total Protein 8.1 Albumin 3.8 Globulin 4.3 H Albumin/Globulin Ratio 0.9 POC Glucose 372 H Radiography Diagnostic Testing: Clinical Impression(s) from Imaging Studies Brain CT 06/01/22 14:31 IMPRESSION: Chronic involutional changes of the brain. Electronically Signed: Ventura Hoffman MD at 17:07 EST Reading Location ID and State: [facility] / [place] , Service support , Head/Neck CTA 06/01/22 14:31 IMPRESSION: Plaques the origin of the vertebral arteries bilaterally. No significant stenosis. Electronically Signed: Ventura Hoffman MD at 17:25 EST , Discharge Plan Triage Chief Complaint: Dizziness ED Provider: Carlo Santana Dx/Rx/DC Orders Primary Care Provider: [facility]
[2022-06-01 15:28] LABS: Absolute Lymphocyte Count 0.92 X10^3/uL (0.83-4.51); Absolute Neutrophil Count 4.4 X10^3/uL (2.0-7.7); Basophil# 0.04 X10^3/uL; Basophil% 0.7 % (0-1); Eosinophil# 0.07 X10^3/uL; Eosinophils% 1.2 % (0-5); Hemoglobin 15.3 g/dL (13.0-16.5); Lymphocyte # 0.92 X10^3/ul (0.83-4.51); Lymphocyte % 15.6 % (19-41); Mean Corpuscular Hgb 28.6 pg (27.0-32.0); Mean Corpuscular Volume 84.1 fL (80-94); Mean Platelet Vol. 10.2 fl (6.2-12.0); Monocyte# 0.41 X10^3/uL; NRBC Flagged by Analyzer 0 % (0-5); Neutrophil # 4.43 X10^3/uL (2.7-7.7); Neutrophil % 75.2 % (47-70); Platelet Count 189 K/mm3 (150-450); RBC Distribution Width CV 12.2 % (11.6-14.6); RBC Distribution Width SD 36.8 fl (35.1-43.9); Red Blood Count 5.35 M/mm3 (4.6-6.2); White Blood Count 5.9 K/mm3 (4.4-11.0)
[2022-06-01 15:51] LABS: ALB/GLOB Ratio 0.9 RATIO (0.9-2.4); AST(SGOT) 16 U/L (15-37); Alanine Aminotransfer ALT/SGPT 40 U/L (16-61); Albumin, Serum 3.8 g/dL (3.2-5.0); Alkaline Phosphatase 112 U/L (45-117); Anion Gap 6 (5-15); BUN 18 mg/dL (7-18); BUN/Creat Ratio 13.1 RATIO (10-20); Calcium,Total 9.3 mg/dL (8.5-10.1); Chloride 97 mmol/L (98-107); Creatinine, Serum 1.37 mg/dL (0.70-1.30); EST Glomerular Filtration Rate 55 mL/min (>60); Est Glom Filt Rate - Afr Amer 67 mL/min (>60); Estimated Creatinine Clearance 47.86 ml/min; Globulin 4.3 g/dL (2.2-4.2); Glucose 426 mg/dL (74-106); Potassium 3.9 mmol/L (3.5-5.1); Protein, Total 8.1 g/dL (6.4-8.2); Sodium Level 133 mmol/L (136-145); Troponin-I HS 44 pg/mL (3.0-78.0)
[2022-06-01 15:55] LABS: Bedside Glucose 372 mg/dL (74-106)
[2022-06-01] MEDS: 0.9% Normal Saline 1,000 ML 999 ML IV (17:33)
--- NOTE | 2022-06-01 19:46 | PCM.HP.STD ---
HPI - General General Date of Admission: 06/01/22 Date of Service: 06/01/22 Chief Complaint: Lightheadedness HPI Narrative OPAL CRUZ, is a 67 M with a significant history of a CVA in March 2022 who presented to the emergency department with persistent lightheadedness. Reportedly patient's was lightheaded when he woke up from the bed. His lightheadedness persisted. Patient and family was going to eat out at [facility]. When patient was opening the door at [facility] he was so lightheaded that he fell. At the emergency department patient was found to be orthostatic positive. Patient was too lightheaded to walk at the ED so decision was made for patient to stay at the hospital. Of notes in March 2022 patient's CVA affected his left side. He reports gaining about 90% of his strength back. In April 2022 he got lightheaded and he fell. Imaging at that time showed near complete resolution of his previous infarct. [facility] Medical History Anxiety Chest pain Chronic pain Coronary artery disease CPAP (continuous positive airway pressure) dependence Depression Diabetic polyneuropathy Diabetic retinopathy DM2 (diabetes mellitus, type 2) Elevated lipase Elevated troponin Essential (primary) hypertension Former smoker GERD (gastroesophageal reflux disease) GI bleed Hearing loss, left Hearing loss, right Hernia History of COVID-19 Hyperlipidemia Hypothyroidism Ischemic stroke Migraine headache Myocardial infarct Narcolepsy Obstructive sleep apnea Osteoporosis Sleep apnea Vision loss of right eye Vitamin D deficiency Home Medications metoprolol tartrate 100 mg tablet 150 mg PO BID blood pressure 10/05/16 [History Last Taken 03/19/22 08:00] nortriptyline 10 mg capsule 30 mg PO DAILY migraines 10/05/16 [History Last Taken 03/19/22 08:00] calcium carbonate 500 mg calcium (1,250 mg) tablet 650 mg PO BID supplement 08/17/17 [History Last Taken 04/03/21 08:00] cholecalciferol (vitamin D3) 25 mcg (1,000 unit) tablet (Vitamin D3) 1,000 unit PO BID vitamin 08/17/17 [History Last Taken 04/03/21 08:00] omega-3 fatty acids-fish oil 340 mg-1,000 mg capsule (Fish Oil) 1,000 mg PO BID supplement 08/17/17 [History Last Taken 04/03/21 08:00] buspirone 10 mg tablet 10 mg PO BID mood 06/17/19 [History Last Taken 04/03/21 22:00] modafinil 200 mg tablet 200 mg PO DAILY narcolepsy 06/17/19 [History Last Taken 04/03/21 08:00] aspirin 81 mg chewable tablet 81 mg PO DAILY heart health 08/17/19 [History Last Taken 03/19/22 08:00] atorvastatin 10 mg tablet 40 mg PO QHS cholesterol 08/17/19 [History Last Taken 04/03/21 22:00] tamsulosin 0.4 mg capsule 0.4 mg PO DAILY urine 03/30/21 [History Last Taken 03/19/22 08:00] pregabalin 100 mg capsule 100 mg PO BID pain 03/19/22 [History Last Taken 03/19/22 08:00] sertraline 150 mg capsule 150 mg PO DAILY mood 03/19/22 [History Last Taken 03/19/22 08:00] acetaminophen 500 mg tablet 1,000 mg PO Q6H PRN PRN Pain Score 1-10 #1 TAB 04/16/22 [Rx Last Taken Unknown] insulin regular hum U-500 conc 500 unit/mL(3 mL) subcut pen (Humulin R U-500 (Conc) Insulin Kwikpen) 50 units (0.1 mL) subcut 1130 #0 mL 04/16/22 [Rx Last Taken Unknown] insulin regular hum U-500 conc 500 unit/mL(3 mL) subcut pen (Humulin R U-500 (Conc) Insulin Kwikpen) 50 units (0.1 mL) subcut 1630 #0 mL 04/16/22 [Rx Last Taken Unknown] insulin regular hum U-500 conc 500 unit/mL(3 mL) subcut pen (Humulin R U-500 (Conc) Insulin Kwikpen) 60 units (0.12 mL) subcut BREAKFAST #0 mL 04/16/22 [Rx Last Taken Unknown] magnesium chloride 64 mg (magnesium chloride) tablet,delayed release (Mag 64) 128 mg PO BID #60 tabs 04/16/22 [Rx Last Taken Unknown] potassium chloride 20 mEq tablet,extended release(part/cryst) (Klor-Con M) 20 meq PO BIDCM #60 tabs 04/16/22 [Rx Last Taken Unknown] amlodipine 10 mg tablet 10 mg PO DAILY 04/30/22 [History Last Taken Unknown] clopidogrel 75 mg tablet 75 mg PO DAILY Check with primary doctor #90 tabs 04/30/22 [Rx Last Taken Unknown] furosemide 40 mg tablet 40 mg PO DAILY #90 tabs 04/30/22 [Rx Last Taken Unknown] sacubitril 49 mg-valsartan 51 mg tablet (Entresto) 1 tab PO BID #180 tabs 04/30/22 [Rx Last Taken Unknown] Allergy/AdvReac Type Severity Reaction Status Date / Time No Known Allergies Allergy Verified 06/01/22 14:20 Family History Mother Diabetes Father Heart disease CVA (cerebral vascular accident) Surgical History History of back surgery History of cholecystectomy History of hernia surgery Social History household members: spouse and children housing: apartment current occupational status: disabled Smoking Status: Former smoker Tobacco: How many years used: 30 how long ago did patient quit smokin alcohol intake: never substance use type: does not use diet: diabetic caffeine: Yes Type: coffee Number of servings: 1 what type of physical activity do you participate in: walking ROS ROS Narrative Pertinent positives and pertinent negatives as noted in HPI. All other systems were reviewed and are negative Vital Signs Vital Signs Vital Signs: 06/01/22 14:17 06/01/22 15:27 06/01/22 15:27 Temperature 98.4 F Temperature Source Temporal Pulse Rate 80 70 Pulse Rate [Lying] Pulse Rate [Sitting (for 1 minute prior to obtaining)] Pulse Rate [Standing (for 1 minute prior to obtaining)] Respiratory Rate 16 23 H Respiratory Effort Normal Respiratory Pattern Normal Blood Pressure 159/98 H 166/89 H Blood Pressure [Lying] Blood Pressure [Sitting (for 1 minute prior to obtaining)] Blood Pressure [Standing (for 1 minute prior to obtaining)] Blood Pressure Mean 118 114 Blood Pressure Mean [Lying] Blood Pressure Mean [Sitting (for 1 minute prior to obtaining)] Blood Pressure Mean [Standing (for 1 minute prior to obtaining)] Pulse Ox 95 95 Oxygen Delivery Method Room Air Room Air 06/01/22 16:56 06/01/22 17:34 06/01/22 19:04 Temperature Temperature Source Pulse Rate 70 65 Pulse Rate [Lying] 72 Pulse Rate [Sitting (for 1 minute prior to obtaining)] 73 Pulse Rate [Standing (for 1 minute prior to obtaining)] 75 Respiratory Rate 20 H 15 Respiratory Effort Respiratory Pattern Blood Pressure 185/97 H 204/100 H Blood Pressure [Lying] 188/91 H Blood Pressure [Sitting (for 1 minute prior to obtaining)] 174/78 H Blood Pressure [Standing (for 1 minute prior to obtaining)] 152/78 H Blood Pressure Mean 126 134 Blood Pressure Mean [Lying] 123 Blood Pressure Mean [Sitting (for 1 minute prior to obtaining)] 110 Blood Pressure Mean [Standing (for 1 minute prior to obtaining)] 102 Pulse Ox 97 98 Oxygen Delivery Method Room Air Room Air Weight Weight: 86.183 kg Body Mass Index (BMI) 30.7 Physical Exam Narrative Physical exam: General: Well-nourished, well-developed. Head: Normocephalic, atraumatic, no tenderness Eyes: Vision is grossly intact. EOMI ENT, no trauma, moist mucous membranes, no rhinorrhea Neck: Nontender, No thyromegaly. CVS: Regular rate and rhythm. S1-S2 present. No murmur, gallop or rub. Respiratory : clear to auscultation bilaterally, chest wall nontender, no wheezing Abdomen: Soft, nontender, nondistended, normal bowel sounds, no masses : Deferred Back: Nontender, no CVA tenderness, no midline spinal tenderness, deformities, step-offs Extremities: Nontender full range of motion, no trauma Skin: Normal color, no trauma, abrasions Neuro: Alert, oriented, cranial nerves II through XII grossly intact. Strength in left upper and left lower extremity 4 out of 5. Strength in the right upper and right lower extremity 5 out of 5. No dysmetria with [id number] test or clark to heel test Psychiatry: Normal mood. Normal affect. Not depressed. Not anxious. Results Lab / Micro Data Result Diagrams: 06/01/22 15:03 06/01/22 15:03 Labs: Laboratory Results - last 24 hr 06/01/22 15:03: WBC 5.9, RBC 5.35, Hgb 15.3, Hct 45.0, MCV 84.1, MCH 28.6, MCHC 34.0, RDW Std Deviation 36.8, RDW Coeff of Eben 12.2, Plt Count 189, MPV 10.2, Immature Gran % (Auto) 0.300, Neut % (Auto) 75.2 H, Lymph % (Auto) 15.6 L, [place] % (Auto) 7.0, Eos % (Auto) 1.2, Baso % (Auto) 0.7, Absolute Neuts (auto) 4.4, Absolute Lymphs (auto) 0.92, Nucleated RBC % 0 06/01/22 15:03: Sodium 133 L, Potassium 3.9, Chloride 97 L, Carbon Dioxide 30.0, Anion Gap 6, BUN 18, Creatinine 1.37 H, Estim Creat Clear Calc 47.86, Est GFR (MDRD) Af Amer 67, Est GFR (MDRD) Non-Af 55 L, BUN/Creatinine Ratio 13.1, Glucose 426 H, Calcium 9.3, Total Bilirubin 0.70, AST 16, ALT 40, Alkaline Phosphatase 112, Troponin I High Sens 44, Total Protein 8.1, Albumin 3.8, Globulin 4.3 H, Albumin/Globulin Ratio 0.9 06/01/22 15:34: POC Glucose 372 H Radiology Impression Brain CT 06/01/22 14:31 IMPRESSION: Chronic involutional changes of the brain. Electronically Signed: Ventura Hoffman MD at 17:07 EST Reading Location ID and State: [facility] / [place] , Service support , Head/Neck CTA 06/01/22 14:31 IMPRESSION: Plaques the origin of the vertebral arteries bilaterally. No significant stenosis. Electronically Signed: Ventura Hoffman MD at 17:25 EST , Assessment & Plan Assessment/Plan (1) Lightheadedness: (2) Orthostatic hypotension: (3) Fall: (4) Essential hypertension: (5) Diabetes: PLAN: Plan Lightheadedness/orthostatic hypotension/fall Although blood pressure was elevated at the emergency department patient was found to be orthostatic positive. Repeat orthostatic blood pressures. Hold home Flomax. Head/neck CTA on presentation did not show hemodynamically significant stenosis. Brain CT was visualized and independently interpreted. Brain CT with chronic involutional changes. I agree with radiologist interpretation With history of stroke check MRI of brain. Observe at progressive care unit with telemetry. Essential hypertension Blood pressure is not within goal Amlodipine, metoprolol and Lasix continued. Trend blood pressures. Depression/anxiety Stable Buspirone, sertraline and nortriptyline continued. BPH With orthostasis Flomax discontinued at this time. Heart failure with reduced ejection fraction Echocardiogram on 03/17/2022 showed ejection fraction of 50% with mild global hypokinesis of the left ventricle. Lasix continue Metoprolol continued Entresto continued. Diabetes mellitus Patient with hyperglycemia on presentation Home regular insulin continued. Monitor Accu-Cheks Basal insulin ordered. DVT prophylaxis Subcutaneous Lovenox ordered. Charges/Coding Visit Charges OBSV E&M: 35162 Initial observation care L3
[2022-06-01] MEDS: 0.9% Normal Saline 1,000 ML 100 ML IV (21:31)
[2022-06-01 22:01] LABS: Bedside Glucose 183 mg/dL (74-106)
[2022-06-01] MEDS: Insulin Glargine-YFGN 100 UNIT/ML Pen 20 UNIT SC (23:48)
[2022-06-02] VITALS (9 sets, daily range): BP systolic 134–179; BP diastolic 65–86; PULSE 60–70; RESP 16; TEMP 36.5–36.9; O2SAT 94–99
[2022-06-02] MEDS: CLARIFY ORDER 1 EACH NOTE (04:35)
[2022-06-02 06:15] LABS: Absolute Lymphocyte Count 1.63 X10^3/uL (0.83-4.51); Absolute Neutrophil Count 3.5 X10^3/uL (2.0-7.7); Basophil# 0.03 X10^3/uL; Basophil% 0.5 % (0-1); Eosinophil# 0.13 X10^3/uL; Eosinophils% 2.2 % (0-5); Hematocrit 39.4 % (40-54); Hemoglobin 13.5 g/dL (13.0-16.5); Lymphocyte # 1.63 X10^3/ul (0.83-4.51); Lymphocyte % 27.9 % (19-41); Mean Corp Hgb Conc 34.3 g/dL (32-36); Mean Corpuscular Hgb 28.7 pg (27.0-32.0); Mean Corpuscular Volume 83.8 fL (80-94); Mean Platelet Vol. 10.1 fl (6.2-12.0); Monocyte# 0.59 X10^3/uL; Monocyte% 10.1 % (0-10); NRBC Flagged by Analyzer 0 % (0-5); Neutrophil # 3.46 X10^3/uL (2.7-7.7); Neutrophil % 59.1 % (47-70); Platelet Count 164 K/mm3 (150-450); RBC Distribution Width SD 36.2 fl (35.1-43.9); White Blood Count 5.9 K/mm3 (4.4-11.0)
[2022-06-02 06:48] LABS: Anion Gap 6 (5-15); BUN 15 mg/dL (7-18); BUN/Creat Ratio 17.9 RATIO (10-20); Calcium,Total 8.4 mg/dL (8.5-10.1); Chloride 102 mmol/L (98-107); Creatinine, Serum 0.84 mg/dL (0.70-1.30); EST Glomerular Filtration Rate 97 mL/min (>60); Est Glom Filt Rate - Afr Amer 118 mL/min (>60); Estimated Creatinine Clearance 78.06 ml/min; Glucose 210 mg/dL (74-106); Potassium 3.1 mmol/L (3.5-5.1); Sodium Level 136 mmol/L (136-145)
[2022-06-02 07:00] LABS: Bedside Glucose 218 mg/dL (74-106)
--- NOTE | 2022-06-02 08:49 | PN.HOSP_ITS ---
Subjective Subjective Patient is a 67-year-old gentleman admitted with lightheadedness. Placed on monitored bed where he is currently undergoing evaluation including MRI of the brain to rule out posterior circulation CVA. Patient was reported to be orthostatic in the ED Objective Data Objective Data Vital Signs: Vital Signs Temp Pulse Resp BP Pulse Ox O2 Del Method 97.8 F 61 16 158/82 H 96 Room Air 06/02/22 04:26 06/02/22 06:59 06/02/22 04:26 06/02/22 06:46 06/02/22 04:26 06/02/22 04:31 Oxygen Delivery Method Room Air Weight: 83.4 kg Body Mass Index (BMI) 29.7 Intake & Output: Intake and Output for Last 24 Hours 05/31/22 06/01/22 06/02/22 23:59 23:59 23:59 Intake Total 1000 / 1000 Balance 1000 / 1000 Lab / Micro Data Result Diagrams: 06/02/22 05:39 06/02/22 05:39 Labs: Laboratory Results - last 24 hr 06/01/22 15:03: WBC 5.9, RBC 5.35, Hgb 15.3, Hct 45.0, MCV 84.1, MCH 28.6, MCHC 34.0, RDW Std Deviation 36.8, RDW Coeff of Eben 12.2, Plt Count 189, MPV 10.2, Immature Gran % (Auto) 0.300, Neut % (Auto) 75.2 H, Lymph % (Auto) 15.6 L, [place] % (Auto) 7.0, Eos % (Auto) 1.2, Baso % (Auto) 0.7, Absolute Neuts (auto) 4.4, Absolute Lymphs (auto) 0.92, Nucleated RBC % 0 06/01/22 15:03: Sodium 133 L, Potassium 3.9, Chloride 97 L, Carbon Dioxide 30.0, Anion Gap 6, BUN 18, Creatinine 1.37 H, Estim Creat Clear Calc 47.86, Est GFR (MDRD) Af Amer 67, Est GFR (MDRD) Non-Af 55 L, BUN/Creatinine Ratio 13.1, Glucose 426 H, Calcium 9.3, Total Bilirubin 0.70, AST 16, ALT 40, Alkaline Phosphatase 112, Troponin I High Sens 44, Total Protein 8.1, Albumin 3.8, Globulin 4.3 H, Albumin/Globulin Ratio 0.9 06/01/22 15:34: POC Glucose 372 H 06/01/22 21:40: POC Glucose 183 H 06/02/22 05:39: WBC 5.9, RBC 4.70, Hgb 13.5, Hct 39.4 L, MCV 83.8, MCH 28.7, MCHC 34.3, RDW Std Deviation 36.2, RDW Coeff of Eben 12.0, Plt Count 164, MPV 10.1, Immature Gran % (Auto) 0.200, Neut % (Auto) 59.1, Lymph % (Auto) 27.9, [place] % (Auto) 10.1 H, Eos % (Auto) 2.2, Baso % (Auto) 0.5, Absolute Neuts (auto) 3.5, Absolute Lymphs (auto) 1.63, Nucleated RBC % 0 06/02/22 05:39: Sodium 136, Potassium 3.1 L, Chloride 102, Carbon Dioxide 28.0, Anion Gap 6, BUN 15, Creatinine 0.84, Estim Creat Clear Calc 78.06, Est GFR (MDRD) Af Amer 118, Est GFR (MDRD) Non-Af 97, BUN/Creatinine Ratio 17.9, Glucose 210 H, Calcium 8.4 L 06/02/22 06:36: POC Glucose 218 H Radiography Diagnostic Testing: Radiology Impression Brain CT 06/01/22 14:31 IMPRESSION: Chronic involutional changes of the brain. Electronically Signed: Ventura Hoffman MD at 17:07 EST Reading Location ID and State: [address] [place] [address] , Service support , Head/Neck CTA 06/01/22 14:31 IMPRESSION: Plaques the origin of the vertebral arteries bilaterally. No significant stenosis. Electronically Signed: Ventura Hoffman MD at 17:25 EST , Physical Exam Narrative GENERAL: cooperative HEENT: Atraumatic; normocephalic EYES; Anicteric, Normal Conjunctiva NECK; supple, normal thyroid, RESPIRATORY: Diminished to auscultation CARDIOVASCULAR: Regular S1 S2, GI: soft, normoactive bowel sounds, : No Renal angle tenderness; EXTREMITIES: No edema, no clubbing, MUSCULOSKELETAL: no muscle wasting NEURO: Awake; no lateralizing signs. SKIN: No Rash PSYCH; Flat affect Assessment & Plan Assessment/Plan (1) Lightheadedness: (2) Orthostatic hypotension: PLAN: Plan Patient is a 67-year-old gentleman admitted with lightheadedness. Placed on monitored bed where he is currently undergoing evaluation including MRI of the brain to rule out posterior circulation CVA. Patient was reported to be orthostatic in the ED 1. Dizziness ? Patient was reported to be orthostatic in the ED.. Patient is on Flomax held on admission. An MRI was ordered to rule out posterior circulation CVA 2. Essential hypertension ? Patient blood pressure labile Home medications include amlodipine metoprolol continued with close monitoring 3. Depression with anxiety ? Patient is on sertraline and nortriptyline as well as buspirone did continue 5. BPH ? Patient Flomax held in view of orthostatic hypotension 6. Diabetes mellitus type II -patient's oral hypoglycemics held. Placed on long acting insulin, Accu-Cheks a.c. and at bedtime and covered with sliding scale insulin 7. Dyslipidemia -Patient is on statin therapy, continued at home dose 8. 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 Currently with no residual effect patient is on dual antiplatelet therapy as well as statin therapy continue 9. Vitamin D deficiency ? Vitamin D supplement 10. Nonischemic cardiomyopathy ? With known EF of 45%. Patient is on Entresto continue 11. DVT prophylaxis SC Lovenox Charges/Coding Visit Charges OBSV E&M: 38232 Subsequent observation care L2
[2022-06-02] MEDS: Enoxaparin 40 MG/0.4 ML Syringe SC (09:23)
[2022-06-02] MEDS: Potassium Chloride Oral Tablet 20 MEQ PO ×2 (09:23→16:33)
[2022-06-02] MEDS: Modafinil 200 MG Tablet PO (09:23)
[2022-06-02] MEDS: Cholecalciferol (VIT D3) 25 MCG TABLET (1,000 UNITS) PO (09:24)
[2022-06-02] MEDS: Nortriptyline 10 MG Capsule 30 MG PO (09:24)
[2022-06-02] MEDS: Furosemide 40 MG Tablet PO (09:24)
[2022-06-02] MEDS: Metoprolol Tartrate 100 MG Tablet 150 MG PO (09:24)
[2022-06-02] MEDS: SACUBITRIL/VALSARTAN 49-51 MG TABLET 1 EACH PO (09:25)
[2022-06-02] MEDS: amLODIPine 10 MG Tablet PO (09:25)
[2022-06-02] MEDS: busPIRone 5 MG Tablet 10 MG PO (09:25)
[2022-06-02] MEDS: Aspirin 81 MG TAB.CHEW PO (09:25)
[2022-06-02] MEDS: Calcium (Elemental) 500 MG Tablet PO (09:25)
[2022-06-02] MEDS: Clopidogrel Bisulfate 75 MG Tablet PO (09:25)
[2022-06-02] MEDS: Pregabalin 50 MG Capsule 100 MG PO (09:25)
[2022-06-02] MEDS: Magnesium Chloride 64 MG Delay Rel.Tablet 128 MG PO (09:25)
[2022-06-02] MEDS: Sertraline 50 MG Tablet 150 MG PO (09:29)
[2022-06-02] MEDS: 0.9% Normal Saline 1,000 ML 100 ML IV (09:29)
--- NOTE | 2022-06-02 10:20 | MRI_ITS ---
HISTORY: STROKE. TECHNIQUE: Multiplanar and multisequence MR images of the brain were obtained without contrast. 279 images. COMPARISON: CT prior day, MRI 05/07/2022. FINDINGS: BRAIN PARENCHYMA: Multiple foci and small zones of increased T2 FLAIR signal in the bilateral cerebral white matter. No abnormal focus of restricted diffusion. No acute intracranial hemorrhage identified. CSF SPACES: Mild generalized volume loss. No significant midline shift or other mass effect.No extra-axial fluid collection. VASCULAR SYSTEM: Major intracranial flow voids are maintained. PARANASAL SINUSES AND MASTOID AIR CELLS: Small left sphenoid mucous retention cyst and mild fluid in the bilateral mastoid air cells again seen. ORBITS: Right lens resection. MRI/Brain without Contrast IMPRESSION: No evidence for acute infarct. Chronic involutional and white matter changes. Electronically Signed: Iram Zelaya MD at 11:04 EST ,
[2022-06-02] MEDS: Insulin U-500 UNITS/ML PEN 50 UNITS SC ×2 (11:34→16:32)
[2022-06-02 12:00] LABS: Bedside Glucose 401 mg/dL (74-106)
[2022-06-02 16:50] LABS: Bedside Glucose 408 mg/dL (74-106)
--- NOTE | 2022-06-02 16:54 | DS.PCM_ITS ---
Providers Date of Admission: 06/01/22 Date of Discharge: 06/02/22 Primary Care Physician: [facility] Reason For Visit: ORTHOSTATIC HYPOTENSION Diagnosis Discharge Diagnosis (1) Lightheadedness: Status: Acute Code(s): R42 - Dizziness and giddiness (2) Orthostatic hypotension: Status: Acute Code(s): I95.1 - Orthostatic hypotension Plan Patient is a 67-year-old gentleman admitted with lightheadedness. Placed on monitored bed where he is currently undergoing evaluation including MRI of the brain to rule out posterior circulation CVA. Patient was reported to be orthostatic in the ED 1. Dizziness ? Patient was reported to be orthostatic in the ED.. Patient is on Flomax held on admission. An MRI was ordered to rule out posterior circulation CVA ? Flomax was resumed on discharge. MRI was negative for acute CVA patient was discharged instructed to follow-up with primary care physician for subsequent management 2. Essential hypertension ? Patient blood pressure labile Home medications include amlodipine metoprolol continued with close monitoring 3. Depression with anxiety ? Patient is on sertraline and nortriptyline as well as buspirone did continue 5. BPH ? Patient Flomax held in view of orthostatic hypotension 6. Diabetes mellitus type II -patient's oral hypoglycemics held. Placed on long acting insulin, Accu-Cheks a.c. and at bedtime and covered with sliding scale insulin 7. Dyslipidemia -Patient is on statin therapy, continued at home dose 8. 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 Currently with no residual effect patient is on dual antiplatelet therapy as well as statin therapy continue 9. Vitamin D deficiency ? Vitamin D supplement 10. Nonischemic cardiomyopathy ? With known EF of 45%. Patient is on Entresto continue 11. DVT prophylaxis SC Lovenox Medications at Discharge Home Medications metoprolol tartrate 100 mg tablet 150 mg PO BID blood pressure 10/05/16 nortriptyline 10 mg capsule 30 mg PO DAILY migraines 10/05/16 calcium carbonate 500 mg calcium (1,250 mg) tablet 650 mg PO BID supplement 08/17/17 cholecalciferol (vitamin D3) 25 mcg (1,000 unit) tablet (Vitamin D3) 1,000 unit PO BID vitamin 08/17/17 omega-3 fatty acids-fish oil 340 mg-1,000 mg capsule (Fish Oil) 1,000 mg PO BID supplement 08/17/17 buspirone 10 mg tablet 10 mg PO BID mood 06/17/19 modafinil 200 mg tablet 200 mg PO DAILY narcolepsy 06/17/19 aspirin 81 mg chewable tablet 81 mg PO DAILY heart health 08/17/19 atorvastatin 10 mg tablet 40 mg PO QHS cholesterol 08/17/19 tamsulosin 0.4 mg capsule 0.4 mg PO DAILY urine 03/30/21 pregabalin 100 mg capsule 100 mg PO BID pain 03/19/22 sertraline 150 mg capsule 150 mg PO DAILY mood 03/19/22 acetaminophen 500 mg tablet 1,000 mg PO Q6H PRN PRN Pain Score 1-10 #1 TAB 04/16/22 insulin regular hum U-500 conc 500 unit/mL(3 mL) subcut pen (Humulin R U-500 (Conc) Insulin Kwikpen) 50 units (0.1 mL) subcut 1130 #0 mL 04/16/22 insulin regular hum U-500 conc 500 unit/mL(3 mL) subcut pen (Humulin R U-500 (Conc) Insulin Kwikpen) 50 units (0.1 mL) subcut 1630 #0 mL 04/16/22 insulin regular hum U-500 conc 500 unit/mL(3 mL) subcut pen (Humulin R U-500 (Conc) Insulin Kwikpen) 60 units (0.12 mL) subcut BREAKFAST #0 mL 04/16/22 magnesium chloride 64 mg (magnesium chloride) tablet,delayed release (Mag 64) 128 mg PO BID #60 tabs 04/16/22 potassium chloride 20 mEq tablet,extended release(part/cryst) (Klor-Con M) 20 meq PO BIDCM #60 tabs 04/16/22 amlodipine 10 mg tablet 10 mg PO DAILY 04/30/22 clopidogrel 75 mg tablet 75 mg PO DAILY Check with primary doctor #90 tabs 04/30/22 furosemide 40 mg tablet 40 mg PO DAILY #90 tabs 04/30/22 sacubitril 49 mg-valsartan 51 mg tablet (Entresto) 1 tab PO BID #180 tabs 04/30/22 Hospital Course Summary of Care Provided Minutes Spent on Discharge: 35 Physical Exam Narrative GENERAL: cooperative HEENT: Atraumatic; normocephalic EYES; Anicteric, Normal Conjunctiva NECK; supple, normal thyroid, RESPIRATORY: Diminished to auscultation CARDIOVASCULAR: Regular S1 S2, GI: soft, normoactive bowel sounds, : No Renal angle tenderness; EXTREMITIES: No edema, no clubbing, MUSCULOSKELETAL: no muscle wasting NEURO: Awake; no lateralizing signs. SKIN: No Rash PSYCH; Flat affect Weight / BMI Weight Weight: 83.4 kg Body Mass Index (BMI) 29.7 ABG / Lab / Microbiology Data Result Diagrams: 06/02/22 05:39 06/02/22 05:39 Laboratory: Laboratory Results - last 24 hr 06/01/22 21:40: POC Glucose 183 H 06/02/22 05:39: WBC 5.9, RBC 4.70, Hgb 13.5, Hct 39.4 L, MCV 83.8, MCH 28.7, MCHC 34.3, RDW Std Deviation 36.2, RDW Coeff of Eben 12.0, Plt Count 164, MPV 10.1, Immature Gran % (Auto) 0.200, Neut % (Auto) 59.1, Lymph % (Auto) 27.9, [place] % (Auto) 10.1 H, Eos % (Auto) 2.2, Baso % (Auto) 0.5, Absolute Neuts (auto) 3.5, Absolute Lymphs (auto) 1.63, Nucleated RBC % 0 06/02/22 05:39: Sodium 136, Potassium 3.1 L, Chloride 102, Carbon Dioxide 28.0, Anion Gap 6, BUN 15, Creatinine 0.84, Estim Creat Clear Calc 78.06, Est GFR (MDRD) Af Amer 118, Est GFR (MDRD) Non-Af 97, BUN/Creatinine Ratio 17.9, Glucose 210 H, Calcium 8.4 L 06/02/22 06:36: POC Glucose 218 H 06/02/22 11:30: POC Glucose 401 H 06/02/22 16:30: POC Glucose 408 H Radiography Diagnostic Testing: Radiology Impression Brain CT 06/01/22 14:31 IMPRESSION: Chronic involutional changes of the brain. Electronically Signed: Ventura Hoffman MD at 17:07 EST Reading Location ID and State: [facility] / [place] , Service support , Head/Neck CTA 06/01/22 14:31 IMPRESSION: Plaques the origin of the vertebral arteries bilaterally. No significant stenosis. Electronically Signed: Ventura Hoffman MD at 17:25 EST , Brain MRI 06/02/22 10:20 IMPRESSION: No evidence for acute infarct. Chronic involutional and white matter changes. Electronically Signed: Iram Zelaya MD at 11:04 EST , D/C Instructions Discharge Diet: 1800 Calorie Control Diet Discharge Activity: Return to Normal Activity Call your doctor if you observe: Fever of 101 or Higher, Shortness of breath, Fainting spells and Chest pain Meaningful Use Info Meaningful Use Diagnoses (Choose all that apply): None applicable Discharge Plan Admission Admit Date/Time: 06/01/22 19:50 Attending Provider: Tr Gutierrez Primary Care Provider: [facility],[place] Consulting Providers: Rocael Walls Discharge Orders/Prescriptions Prescriptions: Continued amlodipine 10 mg tablet 10 mg PO DAILY Entresto 49-51 mg tablet 1 tab PO BID Qty: 180 3RF clopidogrel 75 mg tablet 75 mg PO DAILY Qty: 90 3RF furosemide 40 mg tablet 40 mg PO DAILY Qty: 90 3RF metoprolol tartrate 100 MG tablet 150 mg PO BID nortriptyline 10 MG capsule 30 mg PO DAILY calcium carbonate 500 MG tablet 650 mg PO BID Fish Oil 1 EACH capsule 1,000 mg PO BID cholecalciferol (vitamin D3) [Vitamin D3] 1,000 UNIT tablet 1,000 unit PO BID modafinil 200 MG tablet 200 mg PO DAILY buspirone 10 MG tablet 10 mg PO BID atorvastatin 10 MG tablet 40 mg PO QHS aspirin 81 MG tablet,chewable 81 mg PO DAILY tamsulosin 0.4 mg Capsule 0.4 mg PO DAILY pregabalin 100 mg Capsule 100 mg PO BID sertraline 150 mg Capsule 150 mg PO DAILY acetaminophen 500 mg Tablet 1,000 mg PO Q6H PRN PRN (Reason: Pain Score 1-10) Qty: 1 0RF potassium chloride [Klor-Con M20] 20 mEq Tablet,Er Particles/Crystals 20 meq PO BIDCM Qty: 60 0RF Mag 64 64 mg Tablet,Delayed Release (Dr/Ec) 128 mg PO BID Qty: 60 0RF Humulin R U-500 (Conc) Kwikpen 500 unit/mL (3 mL) Insulin Pen 60 units subcut BREAKFAST Qty: 0 0RF Humulin R U-500 (Conc) Kwikpen 500 unit/mL (3 mL) Insulin Pen 50 units subcut 1130 Qty: 0 0RF Humulin R U-500 (Conc) Kwikpen 500 unit/mL (3 mL) Insulin Pen 50 units subcut 1630 Qty: 0 0RF Referrals / Follow Up: [facility] [Primary Care Provider] - Within 2 Weeks Disposition Disposition (needs filled in before D/C Order can be placed): Home, Self Care Charges/Coding Visit Charges OBSV E&M: 88829 Observation care discharge
== END 2022-06-02 16:59 | disposition home or self-care (01) ==
LOC: ED 14:41 → PCU 20:01
PROVIDERS: Admitting Provider Hospitalist; Emergency Provider Student in an Organized Health Care Education/Training Program; Visit Provider Internal Medicine
DX: I95.1 Orthostatic hypotension (principal); I11.0 Hypertensive heart disease with heart failure; I50.20 Unspecified systolic (congestive) heart failure; E11.42 Type 2 diabetes mellitus with diabetic polyneuropathy; Z79.4 Long term (current) use of insulin; E78.5 Hyperlipidemia, unspecified; H54.7 Unspecified visual loss; G47.33 Obstructive sleep apnea (adult) (pediatric); Z86.16 Personal history of COVID-19; I25.10 Atherosclerotic heart disease of native coronary artery without angina pectoris; G89.29 Other chronic pain; Z79.82 Long term (current) use of aspirin; E55.9 Vitamin D deficiency, unspecified; Z87.891 Personal history of nicotine dependence; Z86.73 Personal history of transient ischemic attack (TIA), and cerebral infarction without residual deficits; Z79.02 Long term (current) use of antithrombotics/antiplatelets; Z79.899 Other long term (current) drug therapy; F41.9 Anxiety disorder, unspecified; F32.A Depression, unspecified; N40.0 Benign prostatic hyperplasia without lower urinary tract symptoms
CPT/HCPCS: 36415; 70450; 70496; 70498; 70551; 80048; 80053; 82962; 84484; 85025; 93005; 96360; 96361; 96372; 97161; 97166; 99218; 99285; J7030; Q9967; A4216; G0378

== ENCOUNTER 2022-06-28 10:28 | Observation (INO) | payer MEDICARE, SELFPAY ==
[2022-06-28] VITALS (12 sets, daily range): BP systolic 166–193; BP diastolic 76–108; PULSE 66–71; RESP 16–20; TEMP 36.2–36.9; O2SAT 95–97; BMI 31.1; BMI 32.5
--- NOTE | 2022-06-28 10:30 | CT_ITS ---
STUDY: CT HEAD STROKE PROTOCOL W/O CONTRAST INJECTION REASON FOR EXAM: Male, 67 years old. Neuro deficit, acute, stroke suspected RADIATION DOSAGE (If Supplied By Facility): CTDIvol = ( 44.99 ) mGy, DLP = ( 745.49 ) mGycm TECHNIQUE: Transaxial CT imaging of the brain was performed without administration of intravenous contrast material. Individualized dose optimization techniques were used for this CT. COMPARISON: Comparison is made with prior study dated 06/01/2022. FINDINGS: Normal soft tissue structures. Normal calvarium. There is mild cerebral atrophy with widening of the extra-axial spaces and ventricular dilatation. There are areas of decreased attenuation within the white matter tracts of the supratentorial brain, consistent with microvascular disease changes. Normal basal ganglia and thalami. Normal brainstem. Normal cerebellum. There is no intracranial hemorrhage. There are no findings of an acute ischemic infarction. Atherosclerotic calcific plaques of the cavernous portions of the internal carotid arteries bilaterally. 1 cm retention cyst or polyp along the posterior aspect of the left sphenoid sinus. ASPECT score: 10 CT/STROKE Brain/Head without Cont IMPRESSION: Chronic involutional changes of the brain. N.B. : The above Results were Read Back by Adi Burroughs MD to Dr Max DO, and understanding confirmed on 06/28/2022 10:43:22 (ET). Electronically Signed: Adi Burroughs MD at 10:44 EST ,
--- NOTE | 2022-06-28 10:30 | EKG12_ITS ---
Test Reason : STROKE TEAM Blood Pressure : / mmHG Vent. Rate : 065 BPM Atrial Rate : 065 BPM P-R Int : 174 ms QRS Dur : 108 ms QT Int : 478 ms P-R-T Axes : 029 005 114 degrees QTc Int : 497 ms Normal sinus rhythm T wave abnormality, consider lateral ischemia Prolonged QT Abnormal ECG Confirmed by ASIYA FERREIRA, MINNIE ([id number]), editorial writer GENARO JIMENEZ ([id number]) on 07/01/2022 11:45:53 AM Referred By: Confirmed By:MINNIE BRADEN MD
--- NOTE | 2022-06-28 10:31 | EDS_ITS ---
HPI History of Present Illness Chief Complaint: Stroke Alert Narrative Narrative: 67-year-old male presenting with left-sided weakness. He states that he woke up this morning at about 8 AM and noticed weakness in the left arm and left leg. He states he could not swing either leg out of bed however. Patient went to bed about 8:00 last evening. He did not have any symptoms then. EMS states that when they arrived on scene the patient was staggering. They did help him to the cot. EMS reports that he had a slight facial droop which appears to be improving on arrival. They also report that he was able to lift his left leg prior to arrival and now he cannot. He denies any sensation difference. He has residual left-sided deficits from previous stroke and states that his left hand and leg are weaker than they were. He denies any head trauma. He states he thinks he might be on Eliquis. He does not appear to have slurred speech or difficulty speaking. He denies headache. He denies visual complaints. [facility] Medical History Anxiety Chest pain Chronic pain Coronary artery disease CPAP (continuous positive airway pressure) dependence Depression Diabetic polyneuropathy Diabetic retinopathy DM2 (diabetes mellitus, type 2) Elevated lipase Elevated troponin Essential (primary) hypertension Former smoker GERD (gastroesophageal reflux disease) GI bleed Hearing loss, left Hearing loss, right Hernia History of COVID-19 Hyperlipidemia Hypothyroidism Ischemic stroke Migraine headache Myocardial infarct Narcolepsy Obstructive sleep apnea Osteoporosis Sleep apnea Vision loss of right eye Vitamin D deficiency Home Medications metoprolol tartrate 100 mg tablet 150 mg PO BID blood pressure 10/05/16 [History Last Taken 06/28/22] nortriptyline 10 mg capsule 30 mg PO DAILY migraines 10/05/16 [History Last Taken 2 Days Ago ~06/26/22] calcium carbonate 500 mg calcium (1,250 mg) tablet 650 mg PO BID supplement 08/17/17 [History Last Taken 06/28/22] cholecalciferol (vitamin D3) 25 mcg (1,000 unit) tablet (Vitamin D3) 1,000 unit PO BID vitamin 08/17/17 [History Last Taken 06/28/22] omega-3 fatty acids-fish oil 340 mg-1,000 mg capsule (Fish Oil) 1,000 mg PO BID supplement 08/17/17 [History Last Taken 06/28/22] buspirone 10 mg tablet 10 mg PO BID mood 06/17/19 [History Last Taken 06/28/22] modafinil 200 mg tablet 200 mg PO DAILY narcolepsy 06/17/19 [History Last Taken 04/03/21 08:00] aspirin 81 mg chewable tablet 81 mg PO DAILY heart health 08/17/19 [History Last Taken 06/28/22] tamsulosin 0.4 mg capsule 0.4 mg PO DAILY urine 03/30/21 [History Last Taken 06/27/22] pregabalin 100 mg capsule 200 - 300 mg PO BID pain 03/19/22 [History Last Taken 06/28/22] sertraline 150 mg capsule 150 mg PO DAILY mood 03/19/22 [History Last Taken 06/28/22] acetaminophen 500 mg tablet 1,000 mg PO Q6H PRN PRN Pain Score 1-10 #1 TAB 04/16/22 [Rx Last Taken Unknown] magnesium chloride 64 mg (magnesium chloride) tablet,delayed release (Mag 64) 128 mg PO BID #60 tabs 04/16/22 [Rx Last Taken 06/28/22] potassium chloride 20 mEq tablet,extended release(part/cryst) (Klor-Con M) 20 meq PO BIDCM #60 tabs 04/16/22 [Rx Last Taken 06/28/22] amlodipine 10 mg tablet 10 mg PO DAILY 04/30/22 [History Last Taken 06/28/22] clopidogrel 75 mg tablet 75 mg PO DAILY Check with primary doctor #90 tabs 04/30/22 [Rx Last Taken 06/28/22] furosemide 40 mg tablet 40 mg PO DAILY #90 tabs 04/30/22 [Rx Last Taken 06/28/22] sacubitril 49 mg-valsartan 51 mg tablet (Entresto) 1 tab PO BID #180 tabs 04/30/22 [Rx Last Taken 06/28/22] atorvastatin 40 mg tablet 40 mg PO DAILY CHOLESTEROL 06/28/22 [History Last Taken 06/27/22] insulin regular hum U-500 conc 500 unit/mL(3 mL) subcut pen (Humulin R U-500 (Conc) Insulin Kwikpen) 75 units subcut 1130 06/28/22 [History Last Taken 06/27/22] insulin regular hum U-500 conc 500 unit/mL(3 mL) subcut pen (Humulin R U-500 (Conc) Insulin Kwikpen) 85 units subcut 1630 06/28/22 [History Last Taken 06/27/22] insulin regular hum U-500 conc 500 unit/mL(3 mL) subcut pen (Humulin R U-500 (Conc) Insulin Kwikpen) 85 units subcut BREAKFAST 06/28/22 [History Last Taken 06/28/22] Allergy/AdvReac Type Severity Reaction Status Date / Time No Known Allergies Allergy Verified 06/28/22 10:51 Family History Mother Diabetes Father Heart disease CVA (cerebral vascular accident) Surgical History History of back surgery History of cholecystectomy History of hernia surgery Social History household members: spouse and children housing: apartment current occupational status: disabled Smoking Status: Former smoker Tobacco: How many years used: 30 how long ago did patient quit smokin alcohol intake: never substance use type: does not use diet: diabetic caffeine: Yes Type: coffee Number of servings: 1 what type of physical activity do you participate in: walking ROS ROS ED Constitutional Constitutional ED: Denies chills or fever(s) Eyes Eyes: Denies blurry vision or change in vision ENT ENT ED: Denies rhinorrhea Cardiovascular Cardiovascular: Denies chest pain or palpitations Respiratory/Chest Respiratory/Chest: Denies cough or dyspnea Gastrointestinal Gastrointestinal: Denies abdominal pain, nausea or vomiting Genitourinary Genitourinary ED: Denies dysuria or hematuria Musculoskeletal Musculoskeletal: Denies arthralgias or back pain Integumentary Denies abscess or Abrasions Neurologic Neurologic: Reports weakness; Denies headache(s) EXAM Physical Exam Const Vital Signs: 06/28/22 10:40 06/28/22 10:49 06/28/22 10:52 Temperature 97.2 F L Temperature Source Temporal Pulse Rate 70 68 Respiratory Rate 19 H 16 Blood Pressure 193/86 H 193/86 H 183/105 H Blood Pressure Mean 121 121 131 Pulse Ox 95 96 Oxygen Delivery Method Room Air Room Air 06/28/22 10:53 06/28/22 10:30 06/28/22 11:00 Temperature 97.2 F L Temperature Source Temporal Pulse Rate 68 68 Respiratory Rate 16 20 H Blood Pressure 193/86 H 167/108 H Blood Pressure Mean 121 127 Pulse Ox 97 95 Oxygen Delivery Method Room Air Room Air Room Air 06/28/22 11:30 06/28/22 12:00 Temperature Temperature Source Pulse Rate 67 66 Respiratory Rate 18 17 Blood Pressure 184/91 H 184/88 H Blood Pressure Mean 122 120 Pulse Ox 96 96 Oxygen Delivery Method Room Air Room Air Positive well nourished General Appearance ED: NAD HEENT Reports moist mucous membranes Eyes PERRL and EOMs intact bilaterally Chest Wall inspection of chest normal and palpation of chest normal Resp normal respiratory effort and clear to auscultation bilaterally Auscultation: Negative for rales, rhonchi or wheezes Cardio Rate: regular rate Rhythm: regular rhythm GI normal to inspection, nondistended, normoactive bowel sounds Extremity General Extremety ED: Negative for deformity General Extremity: Negative for deformity Neuro oriented x3 and CN's II-XII intact bilaterally [place] Coma Scale: document GCS findings Spontaneous Obeys Commands Oriented 15 Sensorium / Orientation: alert Psych mental status grossly normal Skin General Skin Exam: Negative for jaundice NIHSS NIHSS Initial: 1a Level of Consciousness: 0 1b LOC Questions (Score 2 if aphasic/stupor): 0 1c LOC Commands (Only score 1st attempt): 0 2 Best Gaze (If aphasic, use reflexive mvmts.): 0 3 Visual: 0 4 Facial Palsy: 0 5 Motor Arm Right (UN = amputation/fusion): 0 5 Motor Arm Left: 0 6 Motor Leg Right: 2 6 Motor Leg Left: 4 7 Limb ataxia (Only + if out of proportion): 2 8 Sensory (Aphasia/stupor=0 or 1, coma=2): 0 9 Best Language: 0 10 Dysarthria (mute, coma=2, intubated=UN): 0 11 Extinction and Inattention (only scored if +): 0 Total Score: 8 MDM MDM MDM Narrative Medical decision making narrative: Patient seen and evaluated for strokelike symptoms and was met at the door. Last known well 8 PM last evening. Patient woke up at 8 AM this morning. He reports initially he could not move either leg up into bed. NIH stroke scale score does seem to be improving as he is now able to hold his right leg up and do [id number]. He is not able to do this on the left side. Stroke neurologist Dr. Justice stated he should not have tPA. This is a wake-up stroke and his last known well was 8 PM last evening. He did recommend that the patient be admitted for MRI. He also states that if his MRI is negative this time he would recommend outpatient EMG and neurologic follow-up from that standpoint. Patient is on Plavix and I cannot find a record of Eliquis which he had described when I first saw him. NIH stroke scale score initially was 8 and currently it is 4. EMS also reported that his facial droop had improved before arriving to the ER. CT brain was negative for acute stroke. CBC shows a normal white blood cell count and normal hemoglobin and hematocrit. Platelets are normal at 165. PT/INR normal. Renal function electrolytes within normal limits with exception of potassium 3.3. High-sensitivity troponin is 36. Chest x-ray on my interpretation does not show any acute cardiopulmonary process. EKG on my interpretation is sinus rhythm with a ventricular rate of 65 bpm parable 174 ms, QRS duration one-point milliseconds, QTC 497 ms. Patient will be discussed with the hospitalist for admission. Impression: 1. Stroke 2. Left leg weakness 3. Left arm weakness 4. Hypokalemia Lab Data Attestation: I reviewed the patient's lab results. Labs: Laboratory Results - last 24 hr 06/28/22 06/28/22 06/28/22 10:40 10:40 10:40 WBC 6.0 RBC 4.24 L Hgb 12.4 L Hct 36.6 L MCV 86.3 MCH 29.2 MCHC 33.9 RDW Std Deviation 39.4 RDW Coeff of Eben 12.5 Plt Count 165 MPV 10.0 Immature Gran % (Auto) 0.700 Neut % (Auto) 58.3 Lymph % (Auto) 27.3 Garvin % (Auto) 11.6 H Eos % (Auto) 1.8 Baso % (Auto) 0.3 Absolute Neuts (auto) 3.5 Absolute Lymphs (auto) 1.65 Nucleated RBC % 0 PT 13.5 INR 1.1 APTT 22.7 L Sodium 137 Potassium 3.3 L Chloride 100 Carbon Dioxide 32.0 Anion Gap 5 BUN 16 Creatinine 0.92 Estim Creat Clear Calc 71.27 Est GFR (MDRD) Af Amer 106 Est GFR (MDRD) Non-Af 87 BUN/Creatinine Ratio 17.4 Glucose 92 Calcium 7.9 L Troponin I High Sens 36 Radiography Diagnostic Testing: Clinical Impression(s) from Imaging Studies Brain CT 06/28/22 10:30 IMPRESSION: Chronic involutional changes of the brain. N.B. : The above Results were Read Back by Adi Burroughs MD to Dr Max DO, and understanding confirmed on 06/28/2022 10:43:22 (ET). Electronically Signed: Adi Burroughs MD at 10:44 EST , ADDENDUM: 06/28/22 1051 IMPRESSION: Chronic involutional changes of the brain. N.B. : The above Results were Read Back by Adi Burroughs MD to Dr Max DO, and understanding confirmed on 06/28/2022 10:43:22 (ET). Electronically Signed: Adi Burroughs MD at 10:44 EST , Head/Neck CTA 06/28/22 10:31 IMPRESSION: Calcific plaques at the origin of both internal carotid arteries causing less than 50% luminal stenosis. N.B. : The above Results were Read Back by Adi Burroughs MD to Carlo Santana and understanding confirmed on 06/28/2022 10:52:23 (ET). Electronically Signed: Adi Burroughs MD at 10:54 EST , Chest X-Ray 06/28/22 11:30 IMPRESSION: Mild residual increased linear markings at the lung bases although there has been improvement as compared to prior study. Electronically Signed: Adi Burroughs MD at 11:43 EST , Discharge Plan Disposition Disposition: Acute Care Hospital [facility] Discharge Date/Time: 06/28/22 12:50
--- NOTE | 2022-06-28 10:31 | CT_ITS ---
STUDY: CTA HEAD AND NECK WITH CONTRAST REASON FOR EXAM: Male, 67 years old. Neuro deficit, acute, stroke suspected RADIATION DOSAGE (If Supplied By Facility): CTDIvol = ( 24.81 ) mGy, DLP = ( 770.02 ) mGycm TECHNIQUE: CT angiography was performed with a multi-detector CT scanner. Data acquisition was obtained from the skull base through the vertex following intravenous administration of IV 100mL [id number]-[id number]. MIP images were reconstructed from the axial data set. Post-processing of the angiographic images was performed, with multiplanar reformation and 3D reconstruction. Individualized dose optimization techniques were used for this CT. COMPARISON: Comparison is made with prior study dated 06/01/2022. FINDINGS: Normal bilateral petrous carotid arteries. There is calcified plaque formation of the right cavernous carotid artery, with a mild stenosis (less than 50%). There is calcified plaque formation of the left cavernous carotid artery, with a mild stenosis (less than 50%). Normal right A1 segments of the anterior cerebral artery. Normal left A1 segments of the anterior cerebral artery. Normal intact anterior communicating artery (ACOM). Normal bilateral A2 segments of the anterior cerebral arteries. Normal right M1 and M2 segments of the middle cerebral arteries, with a normal M1 bifurcation. Normal left M1 and M2 segments of the middle cerebral arteries, with a normal M1 bifurcation. Normal right posterior communicating artery (PCOM). Normal left posterior communicating artery (PCOM). Normal bilateral vertebral arteries. Normal basilar artery with a normal basilar bifurcation. The visualized bilateral superior cerebellar (SCA) arteries are normal. Normal bilateral P1, P2 and visualized P3 segments of the posterior cerebral arteries. There is no demonstrated aneurysm of the [place]. AORTIC ARCH: There is a mild degree of atherosclerotic calcific plaque formation of the aortic arch and great vessels arising from the aortic arch, without a hemodynamically significant stenosis. There is a normal origin of the brachiocephalic, left common carotid, and left subclavian arteries. RIGHT CAROTID ARTERIES: Normal right common carotid artery (CCA). Normal right common carotid bulb. There is mild atherosclerotic plaque formation of the origin of the right internal carotid artery with less than 50% cross sectional diameter stenosis. Normal visualized cervical portion of the right internal carotid artery. Normal origin of the right external carotid artery (ECA). LEFT CAROTID ARTERIES: There is scattered atherosclerotic plaque formation of the common carotid artery, but without a hemodynamically significant stenosis. Normal left common carotid bulb. There is mild atherosclerotic plaque formation of the origin of the left internal carotid artery with less than 50% cross sectional diameter stenosis. Normal visualized cervical portion of the left internal carotid artery. Normal origin of the left external carotid artery (ECA). VERTEBRAL ARTERIES: Normal bilateral vertebral arteries. CT/STROKE CTA Head AND Neck W/Con IMPRESSION: Calcific plaques at the origin of both internal carotid arteries causing less than 50% luminal stenosis. N.B. : The above Results were Read Back by Adi Burroughs MD to Carlo Santana and understanding confirmed on 06/28/2022 10:52:23 (ET). Electronically Signed: Adi Burroughs MD at 10:54 EST ,
[2022-06-28 10:51] LABS: Absolute Lymphocyte Count 1.65 X10^3/uL (0.83-4.51); Absolute Neutrophil Count 3.5 X10^3/uL (2.0-7.7); Basophil# 0.02 X10^3/uL; Basophil% 0.3 % (0-1); Eosinophil# 0.11 X10^3/uL; Eosinophils% 1.8 % (0-5); Hematocrit 36.6 % (40-54); Hemoglobin 12.4 g/dL (13.0-16.5); Lymphocyte # 1.65 X10^3/ul (0.83-4.51); Lymphocyte % 27.3 % (19-41); Mean Corp Hgb Conc 33.9 g/dL (32-36); Mean Corpuscular Hgb 29.2 pg (27.0-32.0); Mean Corpuscular Volume 86.3 fL (80-94); Monocyte% 11.6 % (0-10); NRBC Flagged by Analyzer 0 % (0-5); Neutrophil # 3.52 X10^3/uL (2.7-7.7); Neutrophil % 58.3 % (47-70); Platelet Count 165 K/mm3 (150-450); RBC Distribution Width CV 12.5 % (11.6-14.6); RBC Distribution Width SD 39.4 fl (35.1-43.9); Red Blood Count 4.24 M/mm3 (4.6-6.2)
[2022-06-28 10:59] LABS: International Normalized Ratio 1.1; Prothrombin Time (Protime)PT. 13.5 SECONDS (11.7-14.9)
[2022-06-28 11:00] LABS: Partial Thromboplast Time 22.7 Seconds (24.1-36.2)
[2022-06-28 11:07] LABS: Anion Gap 5 (5-15); BUN 16 mg/dL (7-18); BUN/Creat Ratio 17.4 RATIO (10-20); Calcium,Total 7.9 mg/dL (8.5-10.1); Chloride 100 mmol/L (98-107); Creatinine, Serum 0.92 mg/dL (0.70-1.30); EST Glomerular Filtration Rate 87 mL/min (>60); Est Glom Filt Rate - Afr Amer 106 mL/min (>60); Estimated Creatinine Clearance 71.27 ml/min; Glucose 92 mg/dL (74-106); Potassium 3.3 mmol/L (3.5-5.1); Sodium Level 137 mmol/L (136-145); Troponin-I HS 36 pg/mL (3.0-78.0)
--- NOTE | 2022-06-28 11:30 | RAD_ITS ---
STUDY: X-RAY CHEST REASON FOR EXAM: Male, 67 years old. Neuro deficit, acute, stroke suspected TECHNIQUE: Single AP portable view of the chest. COMPARISON: Comparison is made with prior study 03/27/2022. FINDINGS: EKG electrodes are seen. Stable elevation of the right hemidiaphragm. Mild increased linear markings at the lung bases although there has been improvement as compared to prior study. There is no demonstrated pleural abnormality. Normal size heart. Normal mediastinum and orin. Normal visualized pulmonary arteries. Normal visualized aortic arch and descending thoracic aorta. Normal visualized thoracic spine. Normal visualized ribs, clavicles, and shoulders. There is no demonstrated abnormality of the visualized soft tissue structures of the upper abdomen. RAD/Chest 1 View IMPRESSION: Mild residual increased linear markings at the lung bases although there has been improvement as compared to prior study. Electronically Signed: Adi Burroughs MD at 11:43 EST ,
--- NOTE | 2022-06-28 12:23 | HP.PCM.HOS_ITS ---
HPI - General General Date of Admission: 06/28/22 Date of Service: 06/28/22 Chief Complaint: Left-sided weakness HPI Narrative OPAL CRUZ, is a 67 M who presents with left-sided weakness. Patient has similar past medical history including hypertension diabetes mellitus type 2 and dyslipidemia. Per patient he was in his usual state of health prior to going back he however woke up on the morning of his presentation with significant le ft-sided weakness. He subsequently presented to the emergency department as a result. CT of the head obtained on admission demonstrated chronic involutional changes of the brain. Patient subsequently admitted to a monitored bed for further management [facility] Medical History Anxiety Chest pain Chronic pain Coronary artery disease CPAP (continuous positive airway pressure) dependence Depression Diabetic polyneuropathy Diabetic retinopathy DM2 (diabetes mellitus, type 2) Elevated lipase Elevated troponin Essential (primary) hypertension Former smoker GERD (gastroesophageal reflux disease) GI bleed Hearing loss, left Hearing loss, right Hernia History of COVID-19 Hyperlipidemia Hypothyroidism Ischemic stroke Migraine headache Myocardial infarct Narcolepsy Obstructive sleep apnea Osteoporosis Sleep apnea Vision loss of right eye Vitamin D deficiency Home Medications metoprolol tartrate 100 mg tablet 150 mg PO BID blood pressure 10/05/16 [History Last Taken 06/28/22] nortriptyline 10 mg capsule 30 mg PO DAILY migraines 10/05/16 [History Last Taken 2 Days Ago ~06/26/22] calcium carbonate 500 mg calcium (1,250 mg) tablet 650 mg PO BID supplement 08/17/17 [History Last Taken 06/28/22] cholecalciferol (vitamin D3) 25 mcg (1,000 unit) tablet (Vitamin D3) 1,000 unit PO BID vitamin 08/17/17 [History Last Taken 06/28/22] omega-3 fatty acids-fish oil 340 mg-1,000 mg capsule (Fish Oil) 1,000 mg PO BID supplement 08/17/17 [History Last Taken 06/28/22] buspirone 10 mg tablet 10 mg PO BID mood 06/17/19 [History Last Taken 06/28/22] modafinil 200 mg tablet 200 mg PO DAILY narcolepsy 06/17/19 [History Last Taken 04/03/21 08:00] aspirin 81 mg chewable tablet 81 mg PO DAILY heart health 08/17/19 [History Last Taken 06/28/22] tamsulosin 0.4 mg capsule 0.4 mg PO DAILY urine 03/30/21 [History Last Taken 06/27/22] pregabalin 100 mg capsule 200 - 300 mg PO BID pain 03/19/22 [History Last Taken 06/28/22] sertraline 150 mg capsule 150 mg PO DAILY mood 03/19/22 [History Last Taken 06/28/22] acetaminophen 500 mg tablet 1,000 mg PO Q6H PRN PRN Pain Score 1-10 #1 TAB 04/16/22 [Rx Last Taken Unknown] magnesium chloride 64 mg (magnesium chloride) tablet,delayed release (Mag 64) 128 mg PO BID #60 tabs 04/16/22 [Rx Last Taken 06/28/22] potassium chloride 20 mEq tablet,extended release(part/cryst) (Klor-Con M) 20 meq PO BIDCM #60 tabs 04/16/22 [Rx Last Taken 06/28/22] amlodipine 10 mg tablet 10 mg PO DAILY 04/30/22 [History Last Taken 06/28/22] clopidogrel 75 mg tablet 75 mg PO DAILY Check with primary doctor #90 tabs 04/30/22 [Rx Last Taken 06/28/22] furosemide 40 mg tablet 40 mg PO DAILY #90 tabs 04/30/22 [Rx Last Taken 06/28/22] sacubitril 49 mg-valsartan 51 mg tablet (Entresto) 1 tab PO BID #180 tabs 04/30/22 [Rx Last Taken 06/28/22] atorvastatin 40 mg tablet 40 mg PO DAILY CHOLESTEROL 06/28/22 [History Last Taken 06/27/22] insulin regular hum U-500 conc 500 unit/mL(3 mL) subcut pen (Humulin R U-500 (Conc) Insulin Kwikpen) 75 units subcut 1130 06/28/22 [History Last Taken 06/27/22] insulin regular hum U-500 conc 500 unit/mL(3 mL) subcut pen (Humulin R U-500 (Conc) Insulin Kwikpen) 85 units subcut 1630 06/28/22 [History Last Taken 06/27/22] insulin regular hum U-500 conc 500 unit/mL(3 mL) subcut pen (Humulin R U-500 ( Conc) Insulin Kwikpen) 85 units subcut BREAKFAST 06/28/22 [History Last Taken 06/28/22] Allergy/AdvReac Type Severity Reaction Status Date / Time No Known Allergies Allergy Verified 06/28/22 10:51 Family History Mother Diabetes Father Heart disease CVA (cerebral vascular accident) Surgical History History of back surgery History of cholecystectomy History of hernia surgery Social History household members: spouse and children housing: apartment current occupational status: disabled Smoking Status: Former smoker Tobacco: How many years used: 30 how long ago did patient quit smokin alcohol intake: never substance use type: does not use diet: diabetic caffeine: Yes Type: coffee Number of servings: 1 what type of physical activity do you participate in: walking ROS ROS Narrative GENERAL: denies fever, chills, night sweats, weight loss, anorexia HEENT: denies headache, sinus congestion, or drainage, dysphagia RESPIRATORY: denies cough, sputum production, shortness of breath, CARDIAC: denies chest pain, palpitations, orthopnea, PND GASTROINTESTINAL: denies abdominal pain, nausea, vomiting, melena, GENITOURINARY: denies dysuria, urgency, frequency, heamaturia EXTREMITY: denies swelling MUSCULOSKELETAL: denies current joint pain or tenderness NEUROLOGIC: Left-sided weakness HEMATOLOGIC: denies easy bruising and/or hemorrhage INTEGUMENT: denies rashes PSYCHIATRIC: denies suicidal or homicidal ideation Vital Signs Vital Signs Vital Signs: 06/28/22 10:40 06/28/22 10:49 06/28/22 10:52 Temperature 97.2 F L Temperature Source Temporal Pulse Rate 70 68 Respiratory Rate 19 H 16 Blood Pressure 193/86 H 193/86 H 183/105 H Blood Pressure Mean 121 121 131 Pulse Ox 95 96 Oxygen Delivery Method Room Air Room Air 06/28/22 10:53 06/28/22 10:30 06/28/22 11:00 Temperature 97.2 F L Temperature Source Temporal Pulse Rate 68 68 Respiratory Rate 16 20 H Blood Pressure 193/86 H 167/108 H Blood Pressure Mean 121 127 Pulse Ox 97 95 Oxygen Delivery Method Room Air Room Air Room Air 06/28/22 11:30 06/28/22 12:00 06/28/22 12:19 Temperature 97.1 F L Temperature Source Temporal Pulse Rate 67 66 68 Respiratory Rate 18 17 20 H Blood Pressure 184/91 H 184/88 H 182/90 H Blood Pressure Mean 122 120 120 Pulse Ox 96 96 95 Oxygen Delivery Method Room Air Room Air Room Air Weight Weight: 91.4 kg Body Mass Index (BMI) 32.5 Results Lab / Micro Data Result Diagrams: 06/28/22 10:40 06/28/22 10:40 Labs: Laboratory Results - last 24 hr 06/28/22 10:40: WBC 6.0, RBC 4.24 L, Hgb 12.4 L, Hct 36.6 L, MCV 86.3, MCH 29.2, MCHC 33.9, RDW Std Deviation 39.4, RDW Coeff of Eben 12.5, Plt Count 165, MPV 10.0, Immature Gran % (Auto) 0.700, Neut % (Auto) 58.3, Lymph % (Auto) 27.3, Latimer % (Auto) 11.6 H, Eos % (Auto) 1.8, Baso % (Auto) 0.3, Absolute Neuts (auto) 3.5, Absolute Lymphs (auto) 1.65, Nucleated RBC % 0 06/28/22 10:40: PT 13.5, INR 1.1, APTT 22.7 L 06/28/22 10:40: Sodium 137, Potassium 3.3 L, Chloride 100, Carbon Dioxide 32.0, Anion Gap 5, BUN 16, Creatinine 0.92, Estim Creat Clear Calc 71.27, Est GFR (MDRD) Af Amer 106, Est GFR (MDRD) Non-Af 87, BUN/Creatinine Ratio 17.4, Glucose 92, Calcium 7.9 L, Troponin I High Sens [address] 06/28/22 10:30 IMPRESSION: Chronic involutional changes of the brain. N.B. : The above Results were Read Back by Adi Burroughs MD to Dr Max DO, and understanding confirmed on 06/28/2022 10:43:22 (ET). Electronically Signed: Adi Burroughs MD at 10:44 EST , ADDENDUM: 06/28/22 1051 IMPRESSION: Chronic involutional changes of the brain. N.B. : The above Results were Read Back by Adi Burroughs MD to Dr Max DO, and understanding confirmed on 06/28/2022 10:43:22 (ET). Electronically Signed: Adi Burroughs MD at 10:44 EST , Head/Neck CTA 06/28/22 10:31 IMPRESSION: Calcific plaques at the origin of both internal carotid arteries causing less than 50% luminal stenosis. N.B. : The above Results were Read Back by Adi Burroughs MD to Carlo Santana and understanding confirmed on 06/28/2022 10:52:23 (ET). Electronically Signed: Adi Burroughs MD at 10:54 EST , Chest X-Ray 06/28/22 11:30 IMPRESSION: Mild residual increased linear markings at the lung bases although there has been improvement as compared to prior study. Electronically Signed: Adi Burroughs MD at 11:43 EST , Assessment & Plan Assessment/Plan (1) Acute left-sided weakness: PLAN: Plan Patient is a 67-year-old gentleman with multiple comorbidities presenting with acute left-sided weakness 1. Acute left-sided weakness ? Initial head CT obtained on admission came back unremarkable. Admitted to monitored bed for subsequent eval. As part of his management ordered MRI of the head as well as MRI of the cervical spine. Patient is already on antiplatelet therapy with aspirin as well as statin therapy with atorvastatin did continue 2.? Essential hypertension ? Patient blood pressure labile Home medications including amlodipine metoprolol continued with close monitoring 3.? Depression with anxiety ? Patient is on sertraline and nortriptyline as well as buspirone did continue 5.? BPH ? Patient Flomax held in view of orthostatic hypotension 6.? Diabetes mellitus type II -patient's oral hypoglycemics held. Placed on long acting insulin, Accu-Cheks a.c. and at bedtime and covered with sliding scale insulin 7.? Dyslipidemia -Patient is on statin therapy, continued at home dose 8.? 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 Currently with no residual effect patient is on dual antiplatelet therapy as well as statin therapy continue 9.? Vitamin D deficiency ? Vitamin D supplement 10.? Nonischemic cardiomyopathy ? With known EF of 45%.? Patient is on Entresto continue 11.? DVT prophylaxis SC Lovenox Time spent in the patient's overall evaluation,decision-making process, review of diagnostic data, adjustment of management, discussion with other providers, nursing nursing and ancillary staff involved in patient's care documentation, 55 Minutes Charges/Coding Visit Charges Inpatient E&M: 62131 Init Hosp L2
--- NOTE | 2022-06-28 12:47 | MRI_ITS ---
We are attempting to reach an attending provider to discuss findings. An addendum with communication details will be sent when the communication is complete. STUDY: MRI BRAIN WITHOUT CONTRAST REASON FOR EXAM: Male, 67 years old. CVA TECHNIQUE: Standardized multiplanar fat and water weighted pulse sequences were obtained. COMPARISON: CT of the brain June 28, 2022 MRI of the brain May 31, 2022 HEMISPHERES, CEREBELLUM AND BRAINSTEM: 1. The cerebral parenchyma, ventricular system, subarachnoid spaces have normal configuration and density. There is a normal gyral pattern. There is normal eng/white differentiation. No midline shift.. 2. Moderate periventricular white matter ischemic change without mass effect or restricted diffusion. 3. No intraparenchymal mass, hemorrhage, or acute territorial infarct. 4. The, basilar and suprasellar cisterns have normal appearance. No Chiari malformation. Mild chronic ischemic changes in the left cerebellar hemisphere Chronic ischemic changes within the right pina. Tiny focus of restricted diffusion in the left pontine nucleus which may be consistent with acute ischemia. PITUITARY: Infundibulum and pituitary have normal configuration. Midline structures appear normal. CSF SPACES: Mild atrophy No hydrocephalus. Basal cisterns are patent. VESSELS: 1. There are normal flow voids noted in the great vessels at the skull base ORBITS AND PARANASAL SINUSES: 1. Postsurgical changes of the right orbit. 2. Minor mucosal thickening of the ethmoid air cells and small polyp in left sphenoid sinus BONY ELEMENTS: Bony elements of the cranial vault, facial skeleton and skull base have normal appearance. Increased signal intensity within the mastoid air cells which may be on the basis of inflammatory changes SCALP AND SOFT TISSUES: Normal appearance of the soft tissues of the scalp and the visualized face OTHER: None MRI/Brain without Contrast IMPRESSION: 1. Periventricular white matter ischemic changes without evidence for acute infarct. Chronic ischemic changes within the left cerebellar hemisphere and right pontine nucleus. Acute ischemic changes of the left pontine nucleus. 2. Mild mucosal thickening of the ethmoid air cells and small polyp in left sphenoid sinus Electronically Signed: Padilla Deras MD at 20:19 EST ,
--- NOTE | 2022-06-28 12:57 | MRI_ITS ---
MRI of the cervical spine INDICATION: Paresthesia TECHNIQUE: MRI of the cervical spine was performed in the sagittal and axial projections utilizing T1, T2 and STIR imaging sequences. FINDINGS: Bony structures are homogeneous in signal intensity. No evidence for acute fracture or subluxation. The craniocervical junction is intact as is the atlantoaxial complex. C2-3: Normal disc space height and disc morphology. Normal central canal and bilateral neuroforamina C3-4: Narrowed disc space and minor bulging disc osteophyte complex. Mild narrowing of the central canal. Moderate left neural foraminal stenosis and severe narrowing on the right secondary to disc and bony hypertrophy C4-5: Narrowed disc space and minor bulging disc complex. Minor narrowing of the central canal. Severe bilateral neural foraminal stenosis secondary to bony hypertrophy. C5-6: Normal disc space height and morphology. Normal central canal and bilateral neuroforamina. C6-7: Normal disc space height and morphology. Normal central canal and bilateral neuroforamina. C7-T1: Normal disc space height and morphology. Normal central canal and bilateral neuroforamina Spinal cord is normal size and homogeneous signal intensity. MRI/Spine Cervical (Routine) IMPRESSION: No evidence for acute fracture or other significant bony pathology. Mild spondylosis and bilateral neural foraminal stenosis at C3-4 C4-5 secondary to disc and bony hypertrophy. Electronically Signed: Padilla Deras MD at 20:39 EST Reading Location ID and State: [facility] / [place] , Service support ,
[2022-06-28] MEDS: Aspirin 81 MG TAB.CHEW 324 MG PO (13:24)
[2022-06-28 13:27] LABS: Troponin-I HS 43 pg/mL (3.0-78.0)
[2022-06-28] MEDS: 0.9% Normal Saline 1,000 ML 100 ML IV (13:28)
[2022-06-28] MEDS: Insulin Lispro 100 UNIT/ML INSULN.PEN SC ×2 (16:13→20:32)
[2022-06-28 16:30] LABS: Bedside Glucose 206 mg/dL (74-106)
[2022-06-28] MEDS: SACUBITRIL/VALSARTAN 49-51 MG TABLET 1 EACH PO (22:00)
[2022-06-28] MEDS: Omega-3 Acid Ethyl Esters 1 GM Capsule PO (22:02)
[2022-06-28] MEDS: Magnesium Chloride 64 MG Delay Rel.Tablet 128 MG PO (22:02)
[2022-06-28] MEDS: busPIRone 5 MG Tablet 10 MG PO (22:02)
[2022-06-28] MEDS: Calcium Carb/Vitamin D 1 TABLET Tablet PO (22:03)
[2022-06-28] MEDS: Cholecalciferol (VIT D3) 25 MCG TABLET (1,000 UNITS) PO (22:03)
[2022-06-28] MEDS: Pregabalin 50 MG Capsule 200 MG PO (22:08)
[2022-06-28 22:11] LABS: Bedside Glucose 313 mg/dL (74-106)
[2022-06-28] MEDS: Atorvastatin Calcium 40 MG Tablet PO (22:34)
--- NOTE | 2022-06-28 22:35 | NURSING ---
Pt reports he still needs lipitor tonight. Administered tonight since has not had today.
[2022-06-29] VITALS (10 sets, daily range): BP systolic 76–154; BP diastolic 57–93; PULSE 70–96; RESP 13–18; TEMP 36.6–37.1; O2SAT 91–95; BMI 31.1
[2022-06-29] MEDS: 0.9% Normal Saline 1,000 ML 100 ML IV (00:10)
[2022-06-29 08:14] LABS: Absolute Lymphocyte Count 1.29 X10^3/uL (0.83-4.51); Absolute Neutrophil Count 4.8 X10^3/uL (2.0-7.7); Basophil# 0.03 X10^3/uL; Basophil% 0.4 % (0-1); Eosinophil# 0.09 X10^3/uL; Eosinophils% 1.3 % (0-5); Hematocrit 46.5 % (40-54); Hemoglobin 15.9 g/dL (13.0-16.5); Lymphocyte # 1.29 X10^3/ul (0.83-4.51); Lymphocyte % 18.6 % (19-41); Mean Corp Hgb Conc 34.2 g/dL (32-36); Mean Corpuscular Hgb 29.2 pg (27.0-32.0); Mean Corpuscular Volume 85.3 fL (80-94); Mean Platelet Vol. 10.4 fl (6.2-12.0); Monocyte# 0.68 X10^3/uL; Monocyte% 9.8 % (0-10); NRBC Flagged by Analyzer 0 % (0-5); Neutrophil % 69.3 % (47-70); Platelet Count 208 K/mm3 (150-450); RBC Distribution Width CV 12.5 % (11.6-14.6); RBC Distribution Width SD 38.5 fl (35.1-43.9); Red Blood Count 5.45 M/mm3 (4.6-6.2); White Blood Count 6.9 K/mm3 (4.4-11.0)
[2022-06-29 08:32] LABS: Anion Gap 9 (5-15); BUN 14 mg/dL (7-18); BUN/Creat Ratio 14.7 RATIO (10-20); Calcium,Total 8.6 mg/dL (8.5-10.1); Chloride 99 mmol/L (98-107); Cholesterol 158 mg/dL (200); Creatinine, Serum 0.95 mg/dL (0.70-1.30); EST Glomerular Filtration Rate 84 mL/min (>60); Est Glom Filt Rate - Afr Amer 102 mL/min (>60); Estimated Creatinine Clearance 69.02 ml/min; Glucose 277 mg/dL (74-106); High Density Lipoprotein 46 mg/dL; Magnesium 1.8 mg/dL (1.6-2.6); Phosphorus 2.7 mg/dL (2.5-4.9); Potassium 3.8 mmol/L (3.5-5.1); Sodium Level 136 mmol/L (136-145); Triglycerides 174 mg/dL; Very Low Density Lipoprotein 35 mg/dL (5-40)
[2022-06-29] MEDS: Insulin U-500 UNITS/ML PEN 85 UNITS SC ×2 (08:35→18:43)
[2022-06-29] MEDS: Insulin Lispro 100 UNIT/ML INSULN.PEN SC ×4 (08:36→20:50)
[2022-06-29] MEDS: Aspirin 81 MG TAB.CHEW PO (08:41)
[2022-06-29] MEDS: Potassium Chloride Oral Tablet 20 MEQ PO ×2 (08:41→16:11)
[2022-06-29] MEDS: Calcium Carb/Vitamin D 1 TABLET Tablet PO ×2 (08:41→16:11)
[2022-06-29 09:06] LABS: Bedside Glucose 279 mg/dL (74-106)
[2022-06-29] MEDS: Furosemide 40 MG Tablet PO (09:38)
[2022-06-29] MEDS: Tamsulosin HCl 0.4 MG Capsule PO (09:38)
[2022-06-29] MEDS: Enoxaparin 40 MG/0.4 ML Syringe SC (09:39)
[2022-06-29] MEDS: Omega-3 Acid Ethyl Esters 1 GM Capsule PO ×2 (09:39→20:40)
[2022-06-29] MEDS: busPIRone 5 MG Tablet 10 MG PO ×2 (09:40→20:40)
[2022-06-29] MEDS: Magnesium Chloride 64 MG Delay Rel.Tablet 128 MG PO ×2 (09:40→20:40)
[2022-06-29] MEDS: Sertraline 100 MG Tablet 150 MG PO (09:41)
[2022-06-29] MEDS: Nortriptyline 10 MG Capsule 30 MG PO (09:42)
[2022-06-29] MEDS: Clopidogrel Bisulfate 75 MG Tablet PO (09:43)
[2022-06-29] MEDS: Cholecalciferol (VIT D3) 25 MCG TABLET (1,000 UNITS) PO ×2 (09:44→20:42)
[2022-06-29] MEDS: Pregabalin 50 MG Capsule 200 MG PO ×2 (09:47→20:43)
--- NOTE | 2022-06-29 10:12 | TELEMED_ITS ---
[facility] Telemed has confirmed receipt of a request for visit. This document confirms receipt of the order initiating the consult. To find the results of the consultation, please view the patient's reports for the scanned Telemed Consult.
[2022-06-29] MEDS: Modafinil 200 MG Tablet PO (11:22)
[2022-06-29 11:50] LABS: Bedside Glucose 317 mg/dL (74-106)
[2022-06-29] MEDS: Insulin U-500 UNITS/ML PEN 75 UNITS SC (12:29)
--- NOTE | 2022-06-29 13:07 | PN.HOSP_ITS ---
Subjective Subjective Follow-up left-sided weakness Patient seen he is experiencing significant improvement in the left-sided weakness. MRI of the brain was negative for CVA MRI of the cervical spine was questionable for possible demyelinating disease. Consult has been placed to telemetry neurology Objective Data Objective Data Vital Signs: Vital Signs Temp Pulse Resp BP Pulse Ox O2 Del Method 98.5 F 82 15 153/93 H 95 Room Air 06/29/22 09:33 06/29/22 09:33 06/29/22 09:33 06/29/22 09:33 06/29/22 09:33 06/29/22 09:33 Oxygen Delivery Method Room Air Weight: 87.6 kg Body Mass Index (BMI) 31.1 Intake & Output: Intake and Output for Last 24 Hours 06/27/22 06/28/22 06/29/22 23:59 23:59 23:59 Intake Total 1480 / 1780 786.67 / 786.67 Output Total 600 / 1050 1950 / 1950 Balance 880 / 730 -1163.33 / -1163.33 Lab / Micro Data Result Diagrams: 06/29/22 07:07 06/29/22 07:07 Labs: Laboratory Results - last 24 hr 06/28/22 13:00: Troponin I High Sens 43 06/28/22 16:07: POC Glucose 206 H 06/28/22 20:26: POC Glucose 313 H 06/29/22 07:07: WBC 6.9, RBC 5.45, Hgb 15.9, Hct 46.5, MCV 85.3, MCH 29.2, MCHC 34.2, RDW Std Deviation 38.5, RDW Coeff of Eben 12.5, Plt Count 208, MPV 10.4, Immature Gran % (Auto) 0.600, Neut % (Auto) 69.3, Lymph % (Auto) 18.6 L, Garrett % (Auto) 9.8, Eos % (Auto) 1.3, Baso % (Auto) 0.4, Absolute Neuts (auto) 4.8, Absolute Lymphs (auto) 1.29, Nucleated RBC % 0 06/29/22 07:07: Sodium 136, Potassium 3.8, Chloride 99, Carbon Dioxide 28.0, Anion Gap 9, BUN 14, Creatinine 0.95, Estim Creat Clear Calc 69.02, Est GFR (MDRD) Af Amer 102, Est GFR (MDRD) Non-Af 84, BUN/Creatinine Ratio 14.7, Glucose 277 H, Calcium 8.6, Phosphorus 2.7, Magnesium 1.8, Triglycerides 174, Cholesterol 158, LDL Cholesterol 77, VLDL Cholesterol 35, HDL Cholesterol 46 06/29/22 08:34: POC Glucose 279 H 06/29/22 11:23: POC Glucose 317 H Radiography Diagnostic Testing: Radiology Impression Brain MRI 06/28/22 12:47 IMPRESSION: 1. Periventricular white matter ischemic changes without evidence for acute infarct. Chronic ischemic changes within the left cerebellar hemisphere and right pontine nucleus. Acute ischemic changes of the left pontine nucleus. 2. Mild mucosal thickening of the ethmoid air cells and small polyp in left sphenoid sinus Electronically Signed: Padilla Deras MD at 20:19 EST , ADDENDUM: 06/28/222131 IMPRESSION: 1. Periventricular white matter ischemic changes without evidence for acute infarct. Chronic ischemic changes within the left cerebellar hemisphere and right pontine nucleus. Acute ischemic changes of the left pontine nucleus. 2. Mild mucosal thickening of the ethmoid air cells and small polyp in left sphenoid sinus N.B. : The above Results were Read Back by Padilla Deras MD to Eliana Sanabria RN, and understanding confirmed on 06/28/2022 21:25:55 (ET). Electronically Signed: Padilla Deras MD at 20:19 EST , ADDENDUM: 06/28/222135 IMPRESSION: undefined Cervical Spine MRI 06/28/22 12:57 IMPRESSION: No evidence for acute fracture or other significant bony pathology. Mild spondylosis and bilateral neural foraminal stenosis at C3-4 C4-5 secondary to disc and bony hypertrophy. Electronically Signed: Padilla Deras MD at 20:39 EST , Physical Exam Narrative GENERAL: cooperative HEENT: Atraumatic; normocephalic EYES; Anicteric, Normal Conjunctiva NECK; supple, normal thyroid, RESPIRATORY: Diminished to auscultation CARDIOVASCULAR: Regular S1 S2, GI: soft, normoactive bowel sounds, : No Renal angle tenderness; EXTREMITIES: No edema, no clubbing, MUSCULOSKELETAL: no muscle wasting NEURO: Awake; no lateralizing signs. SKIN: No Rash PSYCH; Flat affect Assessment & Plan Assessment/Plan (1) Acute left-sided weakness: PLAN: Plan Patient is a 67-year-old gentleman with multiple comorbidities presenting with acute left-sided weakness 1. Acute left-sided weakness ? Initial head CT obtained on admission came back unremarkable. Admitted to monitored bed for subsequent eval. As part of his management ordered MRI of the head as well as MRI of the cervical spine. Patient is already on antiplatelet therapy with aspirin as well as statin therapy with atorvastatin did continue -06/29/2022; Patient seen he is experiencing significant improvement in the left- sided weakness. MRI of the brain was negative for CVA MRI of the cervical spine was questionable for possible demyelinating disease. Consult has been placed to telemetry neurology 2.? Essential hypertension ? Patient blood pressure labile Home medications including amlodipine metoprolol continued with close monitoring 3.? Depression with anxiety ? Patient is on sertraline and nortriptyline as well as buspirone did continue 5.? BPH ? Patient Flomax held in view of orthostatic hypotension 6.? Diabetes mellitus type II -patient's oral hypoglycemics held. Placed on long acting insulin, Accu-Cheks a.c. and at bedtime and covered with sliding scale insulin 7.? Dyslipidemia -Patient is on statin therapy, continued at home dose 8.? 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 Currently with no residual effect patient is on dual antiplatelet therapy as well as statin therapy continue 9.? Vitamin D deficiency ? Vitamin D supplement 10.? Nonischemic cardiomyopathy ? With known EF of 45%.? Patient is on Entresto continue 11.? DVT prophylaxis SC Lovenox Time spent in the patient's overall evaluation,decision-making process, review of diagnostic data, adjustment of management, discussion with other providers, nursing nursing and ancillary staff involved in patient's care documentation, 38 Minutes Charges/Coding Visit Charges Inpatient E&M: 01701 Subs Hosp L2
--- NOTE | 2022-06-29 13:45 | CASEMGMT ---
TRE RODRIGUEZ [place] Planning Assessment: Face to Face with patient for initial transition planning/care coordination assessment. TRE RODRIGUEZ introduced self and role at [facility], pt voices understanding. Pt alert, sitting up in chair with his present. Pt agreeable to participating in assessment and in the presence of his . Care providers, pharmacy, and demographics verified. Admission dx: CVA PCP: PETE, states he was assigned a PCP in [place] through his [facility] but states he has not visited this provider Specialists: scrap sorter and accounts payable specialist at the [place] Preferred Pharmacy: uses [facility] but prefers [facility] on discharge. Insurance: [facility] and [place] benefits Prescription Benefit: Yes, get medications primarily thru the [place] Living Will/HPOA: Yes, Yes- [facility] LNOK: [facility] Living Arrangements: Pt lives in a single story home with no steps to enter with his and stepson. Pt states he requires assistance with ADLs which his assists him with. Pt has had previous CVA with left sided weakness and uses a florecita-cane when ambulating but also has a straight cane and a rollator. Pt states he has a medical alert button but it is currently missing. They have received an eviction notice and are renting month to month. States they are trying to find a two bedroom home to rent but are having difficulty. States he did receive housing resources from during his previous stay. [facility] finances are not prohibitive but finding the right kind of home for them is challenging. Transportation: Pt's drives DME: florecita-cane, rollator, straight cane, medical alert (missing), shower chair, Cpap (from [place]), raised toilet seat SNF: None but pt was in [facility]'s acute rehab unit in March,. HHC: Home PT/OT/ST but states he was discharged a couple of weeks ago. Pt unable to recall provider and states it was from [place]. Based on documentation from pt's acute rehab stay, this was set up with [facility] . Plan: Pt with unclear plan at this time. Reviewed PT notes which state pt ambulate 5 feet on this date. Pt states he feels his left leg is become easier to move. Discussed need to determine what level of acute rehab pt might need at [place] which may include acute rehab unit, SNF, or HH. Will continue to monitor and assist with final DC LOC determination and transition care planning. Rory Melendrez RN CM
--- NOTE | 2022-06-29 15:24 | CASEMGMT ---
SW Note SW met with patient and patient's and introduced herself and role as [facility] General Operations Agent. SW requested permission to speak to the patient with his present, patient agreed. SW provided education regarding the correlation between strokes and depression. SW verified patient was able to read and write to complete the PHQ9 himself, patient agreed to complete the PHQ9. Patient's PHQ9 score was 13, indicating moderate depression. SW inquired if patient was connected to any counseling services, patient stated he wasn't. SW inquired if patient was interested in counseling services, patient stated he was not interested. SW reviewed with patient his PHQ9 score and encouraged him to review resources at a later date, patient was receptive. SW provided patient with a list of local counseling agencies and informed him of local crisis contact information. Patient was receptive and reported [facility] with [facility] on it as well. No other needs voiced at this time. Sadaf Bender MSW, SUZANNA
[2022-06-29 16:36] LABS: Bedside Glucose 328 mg/dL (74-106)
[2022-06-29] MEDS: Atorvastatin Calcium 40 MG Tablet PO (20:40)
[2022-06-29 23:05] LABS: Bedside Glucose 207 mg/dL (74-106)
[2022-06-30] VITALS (8 sets, daily range): BP systolic 98–129; BP diastolic 60–75; PULSE 84–96; RESP 15–17; TEMP 36.5–36.7; O2SAT 89–99; BMI 31.1
[2022-06-30] MEDS: Dextrose 50%-Water 25 GM/50 ML DISP.SYRIN IV ×2 (03:30→03:33)
[2022-06-30 04:01] LABS: Bedside Glucose 44 mg/dL (74-106)
[2022-06-30 04:05] LABS: Bedside Glucose 205 mg/dL (74-106)
[2022-06-30 06:45] LABS: Bedside Glucose 110 mg/dL (74-106)
[2022-06-30 07:33] LABS: Absolute Lymphocyte Count 1.19 X10^3/uL (0.83-4.51); Basophil# 0.02 X10^3/uL; Basophil% 0.2 % (0-1); Eosinophil# 0.04 X10^3/uL; Eosinophils% 0.4 % (0-5); Hematocrit 44.1 % (40-54); Lymphocyte # 1.19 X10^3/ul (0.83-4.51); Lymphocyte % 13.1 % (19-41); Mean Corpuscular Hgb 29.1 pg (27.0-32.0); Mean Corpuscular Volume 85.6 fL (80-94); Mean Platelet Vol. 10.1 fl (6.2-12.0); Monocyte# 0.74 X10^3/uL; Monocyte% 8.2 % (0-10); NRBC Flagged by Analyzer 0 % (0-5); Neutrophil # 7.04 X10^3/uL (2.7-7.7); Neutrophil % 77.9 % (47-70); Platelet Count 200 K/mm3 (150-450); RBC Distribution Width CV 12.6 % (11.6-14.6); RBC Distribution Width SD 39.2 fl (35.1-43.9); Red Blood Count 5.15 M/mm3 (4.6-6.2); White Blood Count 9.1 K/mm3 (4.4-11.0)
[2022-06-30 07:46] LABS: Bedside Glucose 115 mg/dL (74-106)
--- NOTE | 2022-06-30 07:58 | MRI_ITS ---
EXAM: MR HEAD WITH INTRAVENOUS CONTRAST CLINICAL INDICATION: Demyelinating disease TECHNIQUE: Multiplanar and multisequence MR images of the brain were obtained with intravenous contrast. This report was created using [employer] report generation technology. CONTRAST: IV 18ML CLARISCAN COMPARISON: MRI brain without contrast 06/28/2022. FINDINGS: BRAIN AND EXTRA-AXIAL SPACES: Unremarkable. No intra- or extra-axial hemorrhage. No evidence of acute infarct. No intracranial mass or mass effect. There is preservation of the eng/white matter interface. Posterior fossa structures are unremarkable. No hydrocephalus. Basal cisterns are patent. No contrast enhancement of the periventricular white matter T2 FLAIR hyperintensity foci in both cerebral hemispheres. No abnormal enhancing lesions intra-axially and extra-axially. SELLA: Unremarkable. Normal sella turcica, pituitary gland, infundibular stalk, optic chiasm and hypothalamus. AUDITORY SYSTEM: Unremarkable. The internal auditory canals are patent. BONES/JOINTS: Unremarkable. No discrete lytic or blastic abnormalities. SINUSES: Mucous retention cyst in the left sphenoid sinus is unchanged. MASTOID AIR CELLS: Unremarkable as visualized. Clear. ORBITS: Unremarkable as visualized. Both globes, extraocular muscles, optic nerves and retrobulbar fat appear unremarkable. VASCULATURE: Unremarkable as visualized. Normal flow voids in the major intracranial circulation. MRI/Brain WITH Contrast IMPRESSION: 1. No contrast enhancing lesions intra-axially and extra-axially and particularly in the periventricular white matter and the central pontine tegmentum. In my opinion, these are most likely chronic white matter ischemic changes. 2. No significant interval change when compared to 06/28/2022. Electronically Signed: Nelson Kaiser MD at 12:19 EST ,
--- NOTE | 2022-06-30 07:58 | MRI_ITS ---
STUDY: MRI CERVICAL SPINE WITH CONTRAST REASON FOR EXAM: Male, 67 years old. Demyelinating disease TECHNIQUE: Postcontrast T1 sagittal and axial following administration of IV 18ML CLARISCAN. COMPARISON: MRI cervical spine without contrast 06/28/2022. FINDINGS: No abnormal enhancing lesions intradurally and extradurally. Normal cervical cord. Normal included upper thoracic spinal cord. Normal visualized soft tissue structures. MRI/Spine Cervical WITH Contrast IMPRESSION: 1. Limited study due to motion but there are no abnormally enhancing lesions intradurally and extradurally. 2. Normal cervical spinal cord and the included upper thoracic spinal cord. 3. No significant interval change when compared to noncontrast MRI cervical spine 06/28/2022. Electronically Signed: Nelson Kaiser MD at 12:21 EST ,
--- NOTE | 2022-06-30 08:00 | PCM.PN.HOSP ---
Subjective Subjective Follow-up left-sided weakness Case was discussed with telecare teleneurology the day prior. The neurologist recommended obtaining further studies with contrast subsequently ordered MRI of the brain as well as cervical spine with contrast Objective Data Objective Data Vital Signs: Vital Signs Temp Pulse Resp BP Pulse Ox O2 Del Method O2 Flow Rate 97.7 F L 84 16 98/60 96 Nasal Cannula 2 06/30/22 07:25 06/30/22 07:25 06/30/22 07:25 06/30/22 07:25 06/30/22 07:25 06/30/22 07:25 06/30/22 07:25 Oxygen Flow Rate (L/min) 2 Oxygen Delivery Method Nasal Cannula Weight: 87.6 kg Body Mass Index (BMI) 31.1 Intake & Output: Intake and Output for Last 24 Hours 06/28/22 06/29/22 06/30/22 23:59 23:59 23:59 Intake Total 1480 / 1780 2006.67 / 2006.67 480 / 480 Output Total 600 / 1050 2275 / 2275 150 / 150 Balance 880 / 730 -268.33 / -268.33 330 / 330 Lab / Micro Data Result Diagrams: 06/30/22 07:03 06/30/22 07:03 Labs: Laboratory Results - last 24 hr 06/29/22 07:07: WBC 6.9, RBC 5.45, Hgb 15.9, Hct 46.5, MCV 85.3, MCH 29.2, MCHC 34.2, RDW Std Deviation 38.5, RDW Coeff of Eben 12.5, Plt Count 208, MPV 10.4, Immature Gran % (Auto) 0.600, Neut % (Auto) 69.3, Lymph % (Auto) 18.6 L, Addison % (Auto) 9.8, Eos % (Auto) 1.3, Baso % (Auto) 0.4, Absolute Neuts (auto) 4.8, Absolute Lymphs (auto) 1.29, Nucleated RBC % 0 06/29/22 07:07: Sodium 136, Potassium 3.8, Chloride 99, Carbon Dioxide 28.0, Anion Gap 9, BUN 14, Creatinine 0.95, Estim Creat Clear Calc 69.02, Est GFR (MDRD) Af Amer 102, Est GFR (MDRD) Non-Af 84, BUN/Creatinine Ratio 14.7, Glucose 277 H, Calcium 8.6, Phosphorus 2.7, Magnesium 1.8, Triglycerides 174, Cholesterol 158, LDL Cholesterol 77, VLDL Cholesterol 35, HDL Cholesterol 46 06/29/22 08:34: POC Glucose 279 H 06/29/22 11:23: POC Glucose 317 H 06/29/22 16:09: POC Glucose 328 H 06/29/22 20:49: POC Glucose 207 H 06/30/22 03:22: POC Glucose 44 L* 06/30/22 03:43: POC Glucose 205 H 06/30/22 06:09: POC Glucose 110 H 06/30/22 07:03: WBC 9.1, RBC 5.15, Hgb 15.0, Hct 44.1, MCV 85.6, MCH 29.1, MCHC 34.0, RDW Std Deviation 39.2, RDW Coeff of Eben 12.6, Plt Count 200, MPV 10.1, Immature Gran % (Auto) 0.200, Neut % (Auto) 77.9 H, Lymph % (Auto) 13.1 L, Addison % (Auto) 8.2, Eos % (Auto) 0.4, Baso % (Auto) 0.2, Absolute Neuts (auto) 7.0, Absolute Lymphs (auto) 1.19, Nucleated RBC % 0 06/30/22 07:23: POC Glucose 115 H Physical Exam Narrative GENERAL: cooperative HEENT: Atraumatic; normocephalic EYES; Anicteric, Normal Conjunctiva NECK; supple, normal thyroid, RESPIRATORY: Diminished to auscultation CARDIOVASCULAR: Regular S1 S2, GI: soft, normoactive bowel sounds, : No Renal angle tenderness; EXTREMITIES: No edema, no clubbing, MUSCULOSKELETAL: no muscle wasting NEURO: Awake; no lateralizing signs. SKIN: No Rash PSYCH; Flat affect Assessment & Plan Assessment/Plan (1) Acute left-sided weakness: PLAN: Plan Patient is a 67-year-old gentleman with multiple comorbidities presenting with acute left-sided weakness 1. Acute left-sided weakness ? Initial head CT obtained on admission came back unremarkable. Admitted to monitored bed for subsequent eval. As part of his management ordered MRI of the head as well as MRI of the cervical spine. Patient is already on antiplatelet therapy with aspirin as well as statin therapy with atorvastatin did continue -06/29/2022; MRI of the brain was negative for acute CVA -06/30/2022 Case was discussed with telecare teleneurology the day prior. The neurologist recommended obtaining further studies with contrast subsequently ordered MRI of the brain as well as cervical spine with contrast 2.? Essential hypertension ? Patient blood pressure labile Home medications including amlodipine metoprolol continued with close monitoring 3.? Depression with anxiety ? Patient is on sertraline and nortriptyline as well as buspirone did continue 5.? BPH ? Patient Flomax held in view of orthostatic hypotension 6.? Diabetes mellitus type II -patient's oral hypoglycemics held. Placed on long acting insulin, Accu-Cheks a.c. and at bedtime and covered with sliding scale insulin 7.? Dyslipidemia -Patient is on statin therapy, continued at home dose 8.? 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 Currently with no residual effect patient is on dual antiplatelet therapy as well as statin therapy continue 9.? Vitamin D deficiency ? Vitamin D supplement 10.? Nonischemic cardiomyopathy ? With known EF of 45%.? Patient is on Entresto continue 11.? DVT prophylaxis SC Lovenox Time spent in the patient's overall evaluation,decision-making process, review of diagnostic data, adjustment of management, discussion with other providers, nursing nursing and ancillary staff involved in patient's care documentation, 38 Minutes Charges/Coding Visit Charges Inpatient E&M: 15409 Subs Hosp L2
[2022-06-30 08:09] LABS: Anion Gap 7 (5-15); BUN 36 mg/dL (7-18); BUN/Creat Ratio 22.4 RATIO (10-20); Calcium,Total 9.4 mg/dL (8.5-10.1); Chloride 103 mmol/L (98-107); Creatinine, Serum 1.61 mg/dL (0.70-1.30); EST Glomerular Filtration Rate 46 mL/min (>60); Est Glom Filt Rate - Afr Amer 55 mL/min (>60); Estimated Creatinine Clearance 40.73 ml/min; Glucose 106 mg/dL (74-106); Potassium 4.4 mmol/L (3.5-5.1); Sodium Level 138 mmol/L (136-145)
[2022-06-30] MEDS: Calcium Carb/Vitamin D 1 TABLET Tablet PO (08:45)
[2022-06-30] MEDS: Enoxaparin 40 MG/0.4 ML Syringe SC (08:45)
[2022-06-30] MEDS: Cholecalciferol (VIT D3) 25 MCG TABLET (1,000 UNITS) PO (08:45)
[2022-06-30] MEDS: Clopidogrel Bisulfate 75 MG Tablet PO (08:46)
[2022-06-30] MEDS: Magnesium Chloride 64 MG Delay Rel.Tablet 128 MG PO (08:46)
[2022-06-30] MEDS: Potassium Chloride Oral Tablet 20 MEQ PO ×2 (08:46→16:24)
[2022-06-30] MEDS: Omega-3 Acid Ethyl Esters 1 GM Capsule PO (08:47)
[2022-06-30] MEDS: Tamsulosin HCl 0.4 MG Capsule PO (08:47)
[2022-06-30] MEDS: Nortriptyline 10 MG Capsule 30 MG PO (08:48)
[2022-06-30] MEDS: Aspirin 81 MG TAB.CHEW PO (08:48)
[2022-06-30] MEDS: busPIRone 5 MG Tablet 10 MG PO (08:49)
[2022-06-30] MEDS: Sertraline 100 MG Tablet 150 MG PO (08:50)
[2022-06-30] MEDS: Pregabalin 50 MG Capsule 200 MG PO (08:54)
[2022-06-30] MEDS: Modafinil 200 MG Tablet PO (08:54)
--- NOTE | 2022-06-30 11:53 | NURSING ---
1153 This RN gave update to on change in condition from this past night. Explained why patient is receiving another MRI. verbalized understanding.
[2022-06-30 12:50] LABS: Bedside Glucose 104 mg/dL (74-106)
--- NOTE | 2022-06-30 13:01 | PCM.DC.SUM ---
Providers Date of Admission: 06/28/22 Date of Discharge: 06/30/22 Primary Care Physician: [facility] Reason For Visit: POSSIBLE CVA Diagnosis Discharge Diagnosis (1) Acute left-sided weakness: Status: Acute Code(s): R53.1 - Weakness Plan Patient is a 67-year-old gentleman with multiple comorbidities presenting with acute left-sided weakness 1. Acute left-sided weakness ? Initial head CT obtained on admission came back unremarkable. Admitted to monitored bed for subsequent eval. As part of his management ordered MRI of the head as well as MRI of the cervical spine. Patient is already on antiplatelet therapy with aspirin as well as statin therapy with atorvastatin did continue -06/29/2022; MRI of the brain was negative for acute CVA -06/30/2022 Case was discussed with telecare teleneurology the day prior. The neurologist recommended obtaining further studies with contrast subsequently ordered MRI of the brain as well as cervical spine with contrast -Repeat imaging studies did not demonstrate any ring-enhancing lesion. With patient symptoms have been resolved decision was made to discharge patient 2.? Essential hypertension ? Patient blood pressure labile Home medications including amlodipine metoprolol continued with close monitoring 3.? Depression with anxiety ? Patient is on sertraline and nortriptyline as well as buspirone did continue 5.? BPH ? Patient Flomax held in view of orthostatic hypotension 6.? Diabetes mellitus type II -patient's oral hypoglycemics held. Placed on long acting insulin, Accu-Cheks a.c. and at bedtime and covered with sliding scale insulin 7.? Dyslipidemia -Patient is on statin therapy, continued at home dose 8.? 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 Currently with no residual effect patient is on dual antiplatelet therapy as well as statin therapy continue 9.? Vitamin D deficiency ? Vitamin D supplement 10.? Nonischemic cardiomyopathy ? With known EF of 45%.? Patient is on Entresto continue 11.? DVT prophylaxis SC Lovenox Time spent in the patient's overall evaluation,decision-making process, review of diagnostic data, adjustment of management, discussion with other providers, nursing nursing and ancillary staff involved in patient's care documentation, 38 Minutes Medications at Discharge Home Medications metoprolol tartrate 100 mg tablet 150 mg PO BID blood pressure 10/05/16 nortriptyline 10 mg capsule 30 mg PO DAILY migraines 10/05/16 calcium carbonate 500 mg calcium (1,250 mg) tablet 650 mg PO BID supplement 08/17/17 cholecalciferol (vitamin D3) 25 mcg (1,000 unit) tablet (Vitamin D3) 1,000 unit PO BID vitamin 08/17/17 omega-3 fatty acids-fish oil 340 mg-1,000 mg capsule (Fish Oil) 1,000 mg PO BID supplement 08/17/17 buspirone 10 mg tablet 10 mg PO BID mood 06/17/19 modafinil 200 mg tablet 200 mg PO DAILY narcolepsy 06/17/19 aspirin 81 mg chewable tablet 81 mg PO DAILY heart health 08/17/19 tamsulosin 0.4 mg capsule 0.4 mg PO DAILY urine 03/30/21 pregabalin 100 mg capsule 200 - 300 mg PO BID pain 03/19/22 sertraline 150 mg capsule 150 mg PO DAILY mood 03/19/22 acetaminophen 500 mg tablet 1,000 mg PO Q6H PRN PRN Pain Score 1-10 #1 TAB 04/16/22 magnesium chloride 64 mg (magnesium chloride) tablet,delayed release (Mag 64) 128 mg PO BID #60 tabs 04/16/22 potassium chloride 20 mEq tablet,extended release(part/cryst) (Klor-Con M) 20 meq PO BIDCM #60 tabs 04/16/22 amlodipine 10 mg tablet 10 mg PO DAILY 04/30/22 clopidogrel 75 mg tablet 75 mg PO DAILY Check with primary doctor #90 tabs 04/30/22 furosemide 40 mg tablet 40 mg PO DAILY #90 tabs 04/30/22 sacubitril 49 mg-valsartan 51 mg tablet (Entresto) 1 tab PO BID #180 tabs 04/30/22 atorvastatin 40 mg tablet 40 mg PO DAILY CHOLESTEROL 06/28/22 insulin regular hum U-500 conc 500 unit/mL(3 mL) subcut pen (Humulin R U-500 (Conc) Insulin Kwikpen) 75 units subcut 1130 06/28/22 insulin regular hum U-500 conc 500 unit/mL(3 mL) subcut pen (Humulin R U-500 (Conc) Insulin Kwikpen) 85 units subcut 1630 06/28/22 insulin regular hum U-500 conc 500 unit/mL(3 mL) subcut pen (Humulin R U-500 (Conc) Insulin Kwikpen) 85 units subcut BREAKFAST 06/28/22 Hospital Course Summary of Care Provided Minutes Spent on Discharge: 38 Physical Exam Narrative GENERAL: cooperative HEENT: Atraumatic; normocephalic EYES; Anicteric, Normal Conjunctiva NECK; supple, normal thyroid, RESPIRATORY: Diminished to auscultation CARDIOVASCULAR: Regular S1 S2, GI: soft, normoactive bowel sounds, : No Renal angle tenderness; EXTREMITIES: No edema, no clubbing, MUSCULOSKELETAL: no muscle wasting NEURO: Awake; no lateralizing signs. SKIN: No Rash PSYCH; Flat affect Weight / BMI Weight Weight: 87.6 kg Body Mass Index (BMI) 31.1 ABG / Lab / Microbiology Data Result Diagrams: 06/30/22 07:03 06/30/22 07:03 Laboratory: Laboratory Results - last 24 hr 06/29/22 16:09: POC Glucose 328 H 06/29/22 20:49: POC Glucose 207 H 06/30/22 03:22: POC Glucose 44 L* 06/30/22 03:43: POC Glucose 205 H 06/30/22 06:09: POC Glucose 110 H 06/30/22 07:03: WBC 9.1, RBC 5.15, Hgb 15.0, Hct 44.1, MCV 85.6, MCH 29.1, MCHC 34.0, RDW Std Deviation 39.2, RDW Coeff of Eben 12.6, Plt Count 200, MPV 10.1, Immature Gran % (Auto) 0.200, Neut % (Auto) 77.9 H, Lymph % (Auto) 13.1 L, Bracken % (Auto) 8.2, Eos % (Auto) 0.4, Baso % (Auto) 0.2, Absolute Neuts (auto) 7.0, Absolute Lymphs (auto) 1.19, Nucleated RBC % 0 06/30/22 07:03: Sodium 138, Potassium 4.4, Chloride 103, Carbon Dioxide 28.0, Anion Gap 7, BUN 36 H, Creatinine 1.61 H, Estim Creat Clear Calc 40.73, Est GFR (MDRD) Af Amer 55 L, Est GFR (MDRD) Non-Af 46 L, BUN/Creatinine Ratio 22.4 H, Glucose 106, Calcium 9.4 06/30/22 07:23: POC Glucose 115 H 06/30/22 12:20: POC Glucose 104 Radiography Diagnostic Testing: Radiology Impression Brain MRI 06/30/22 07:58 IMPRESSION: 1. No contrast enhancing lesions intra-axially and extra-axially and particularly in the periventricular white matter and the central pontine tegmentum. In my opinion, these are most likely chronic white matter ischemic changes. 2. No significant interval change when compared to 06/28/2022. Electronically Signed: Nelson Kaiser MD at 12:19 EST , Cervical Spine MRI 06/30/22 07:58 IMPRESSION: 1. Limited study due to motion but there are no abnormally enhancing lesions intradurally and extradurally. 2. Normal cervical spinal cord and the included upper thoracic spinal cord. 3. No significant interval change when compared to noncontrast MRI cervical spine 06/28/2022. Electronically Signed: Nelson Kaiser MD at 12:21 EST , D/C Instructions Discharge Diet: 1800 Calorie Control Diet Discharge Activity: Return to Normal Activity Call your doctor if you observe: Fever of 101 or Higher, Shortness of breath, Fainting spells and Chest pain Meaningful Use Info Meaningful Use Diagnoses (Choose all that apply): None applicable Discharge Plan Admission Admit Date/Time: 06/28/22 12:14 Attending Provider: Tr Gutierrez Primary Care Provider: [facility] Discharge Orders/Prescriptions Prescriptions: Continued amlodipine 10 mg tablet 10 mg PO DAILY Entresto 49-51 mg tablet 1 tab PO BID Qty: 180 3RF clopidogrel 75 mg tablet 75 mg PO DAILY Qty: 90 3RF furosemide 40 mg tablet 40 mg PO DAILY Qty: 90 3RF metoprolol tartrate 100 MG tablet 150 mg PO BID nortriptyline 10 MG capsule 30 mg PO DAILY calcium carbonate 500 MG tablet 650 mg PO BID Fish Oil 1 EACH capsule 1,000 mg PO BID cholecalciferol (vitamin D3) [Vitamin D3] 1,000 UNIT tablet 1,000 unit PO BID modafinil 200 MG tablet 200 mg PO DAILY buspirone 10 MG tablet 10 mg PO BID aspirin 81 MG tablet,chewable 81 mg PO DAILY tamsulosin 0.4 mg Capsule 0.4 mg PO DAILY pregabalin 100 mg Capsule 200 - 300 mg PO BID sertraline 150 mg Capsule 150 mg PO DAILY acetaminophen 500 mg Tablet 1,000 mg PO Q6H PRN PRN (Reason: Pain Score 1-10) Qty: 1 0RF potassium chloride [Klor-Con M20] 20 mEq Tablet,Er Particles/Crystals 20 meq PO BIDCM Qty: 60 0RF Mag 64 64 mg Tablet,Delayed Release (Dr/Ec) 128 mg PO BID Qty: 60 0RF atorvastatin 40 mg Tablet 40 mg PO DAILY Humulin R U-500 (Conc) Kwikpen 500 unit/mL (3 mL) insulin pen 85 units subcut BREAKFAST Humulin R U-500 (Conc) Kwikpen 500 unit/mL (3 mL) insulin pen 75 units subcut 1130 Humulin R U-500 (Conc) Kwikpen 500 unit/mL (3 mL) insulin pen 85 units subcut 1630 Referrals / Follow Up: [facility] [Primary Care Provider] - Disposition Disposition (needs filled in before D/C Order can be placed): Home, Self Care Charges/Coding Visit Charges Inpatient E&M: 33717 Disch Hosp >30min
[2022-06-30] MEDS: Insulin Lispro 100 UNIT/ML INSULN.PEN SC (16:17)
[2022-06-30 16:45] LABS: Bedside Glucose 276 mg/dL (74-106)
== END 2022-06-30 18:17 | disposition home health service (06) ==
LOC: ED 11:58 → PCU 12:34
PROVIDERS: Admitting Provider Internal Medicine; Emergency Provider Student in an Organized Health Care Education/Training Program; Visit Provider Internal Medicine
DX: R53.1 Weakness (principal); I69.354 Hemiplegia and hemiparesis following cerebral infarction affecting left non-dominant side; I42.8 Other cardiomyopathies; E11.42 Type 2 diabetes mellitus with diabetic polyneuropathy; Z79.4 Long term (current) use of insulin; E55.9 Vitamin D deficiency, unspecified; E87.6 Hypokalemia; F41.8 Other specified anxiety disorders; E78.5 Hyperlipidemia, unspecified; G47.33 Obstructive sleep apnea (adult) (pediatric); I10 Essential (primary) hypertension; I25.10 Atherosclerotic heart disease of native coronary artery without angina pectoris; H54.7 Unspecified visual loss; M81.0 Age-related osteoporosis without current pathological fracture; Z87.891 Personal history of nicotine dependence; G89.29 Other chronic pain; Z86.16 Personal history of COVID-19; Z79.02 Long term (current) use of antithrombotics/antiplatelets; Z79.82 Long term (current) use of aspirin; N40.0 Benign prostatic hyperplasia without lower urinary tract symptoms; R29.810 Facial weakness; Z79.899 Other long term (current) drug therapy; R29.708 NIHSS score 8; R20.2 Paresthesia of skin
CPT/HCPCS: 36415; 70450; 70496; 70498; 70551; 70552; 71045; 72141; 72142; 80048; 80061; 82962; 83735; 84100; 84484; 85025; 85610; 85730; 92523; 92610; 93005; 94762; 96361; 96372; 96374; 97162; 97166; 97802; 99221; 99285; A9575; J7030; J7040; Q9967; A4216; G0378

== ENCOUNTER 2022-08-23 13:55 | Emergency (ER) | payer MEDICARE, SELFPAY ==
[2022-08-23 13:56] VITALS: BP 160/76; PULSE 68; RESP 16; TEMP 36.9; O2SAT 97; BMI 31.2
[2022-08-23 14:34] LABS: Absolute Lymphocyte Count 1.24 X10^3/uL (0.83-4.51); Absolute Neutrophil Count 5.3 X10^3/uL (2.0-7.7); Basophil# 0.02 X10^3/uL; Basophil% 0.3 % (0-1); Eosinophil# 0.09 X10^3/uL; Eosinophils% 1.2 % (0-5); Hematocrit 43.1 % (40-54); Lymphocyte # 1.24 X10^3/ul (0.83-4.51); Lymphocyte % 16.9 % (19-41); Mean Corp Hgb Conc 34.8 g/dL (32-36); Mean Corpuscular Hgb 29.8 pg (27.0-32.0); Mean Corpuscular Volume 85.5 fL (80-94); Monocyte# 0.66 X10^3/uL; NRBC Flagged by Analyzer 0 % (0-5); Neutrophil # 5.31 X10^3/uL (2.7-7.7); Neutrophil % 72.2 % (47-70); Platelet Count 190 K/mm3 (150-450); RBC Distribution Width CV 12.3 % (11.6-14.6); RBC Distribution Width SD 37.9 fl (35.1-43.9); Red Blood Count 5.04 M/mm3 (4.6-6.2); White Blood Count 7.4 K/mm3 (4.4-11.0)
[2022-08-23 14:42] LABS: Anion Gap 5 (5-15); BUN 23 mg/dL (7-18); BUN/Creat Ratio 17.7 RATIO (10-20); Calcium,Total 9.1 mg/dL (8.5-10.1); Chloride 101 mmol/L (98-107); EST Glomerular Filtration Rate 59 mL/min (>60); Est Glom Filt Rate - Afr Amer 71 mL/min (>60); Estimated Creatinine Clearance 50.44 ml/min; Glucose 184 mg/dL (74-106); Potassium 3.6 mmol/L (3.5-5.1); Sodium Level 138 mmol/L (136-145)
[2022-08-23 15:22] LABS: Bacteria 0 SEEN /hpf (None Seen); Mucous, Urine 0 SEEN /hpf (<or=2+); Red Blood Cells-Urine 0 SEEN /hpf (0-5); Squamous Epithelial Cells - UA 0 SEEN /hpf (0-5); White Blood Cells 0 SEEN /hpf (0-5)
--- NOTE | 2022-08-23 15:34 | EDS_ITS ---
HPI History of Present Illness Chief Complaint: Confusion Detail of Chief Complaint: Disoriented to time while [facility] the [facility] Informant: patient Onset/Context/Timing Onset: Hours Context: Sudden Onset Timing: Intermittent Quality: Disorientation to time Location: Was at home speaking with the [facility] nurse Current Severity: Gone Maximum Severity: Mild Worsened by: Disorientation to time nothing Relieved by: Nothing Associated Symptoms Associated Symptoms: Slight discomfort with urination and urgency Narrative Narrative: Patient is a 67-year-old male with history of diabetes, hypertension, hyperlipidemia, cardiomyopathy, facial droop due to CVA who presents because of disorientation to time when he was speaking with someone prior to arrival. His symptoms are resolved. He also reports blurred vision for 1 week. He states his blood sugar was less than 200 this morning. He has not had any significantly elevated blood sugars. He does report urgency without hematuria or frequency. He did report slight discomfort with urination. He does not describe it as burning. He denies scrotal pain. Denies scrotal swelling or testicular pain. He denies fever, chills night sweats. He denies headache, double vision or change in vision. He denies ringing's ears decreased hearing. He denies trouble speech or swallowing. He denies problems with coordination or balance. He denies cardiac or respiratory symptoms. He denies abdominal pain. He denies nausea, vomiting or diarrhea. Prior similar symptoms: No Recent Illness/Hospitalization: No PFSH PFS Medical History Anxiety Chest pain Chronic pain Coronary artery disease CPAP (continuous positive airway pressure) dependence Depression Diabetic polyneuropathy Diabetic retinopathy DM2 (diabetes mellitus, type 2) Elevated lipase Elevated troponin Essential (primary) hypertension Former smoker GERD (gastroesophageal reflux disease) GI bleed Hearing loss, left Hearing loss, right Hernia History of COVID-19 Hyperlipidemia Hypothyroidism Ischemic stroke Migraine headache Myocardial infarct Narcolepsy Obstructive sleep apnea Osteoporosis Sleep apnea Vision loss of right eye Vitamin D deficiency Home Medications metoprolol tartrate 100 mg tablet 150 mg PO BID blood pressure 10/05/16 [History Last Taken 06/28/22] nortriptyline 10 mg capsule 30 mg PO DAILY migraines 10/05/16 [History Last Taken 2 Days Ago ~06/26/22] calcium carbonate 500 mg calcium (1,250 mg) tablet 650 mg PO BID supplement 08/17/17 [History Last Taken 06/28/22] cholecalciferol (vitamin D3) 25 mcg (1,000 unit) tablet (Vitamin D3) 1,000 unit PO BID vitamin 08/17/17 [History Last Taken 06/28/22] omega-3 fatty acids-fish oil 340 mg-1,000 mg capsule (Fish Oil) 1,000 mg PO BID supplement 08/17/17 [History Last Taken 06/28/22] buspirone 10 mg tablet 10 mg PO BID mood 06/17/19 [History Last Taken 06/28/22] modafinil 200 mg tablet 200 mg PO DAILY narcolepsy 06/17/19 [History Last Taken 04/03/21 08:00] aspirin 81 mg chewable tablet 81 mg PO DAILY heart health 08/17/19 [History Last Taken 06/28/22] tamsulosin 0.4 mg capsule 0.4 mg PO DAILY urine 03/30/21 [History Last Taken 0 06/27/22] pregabalin 100 mg capsule 200 - 300 mg PO BID pain 03/19/22 [History Last Taken 06/28/22] sertraline 150 mg capsule 150 mg PO DAILY mood 03/19/22 [History Last Taken 06/28/22] acetaminophen 500 mg tablet 1,000 mg PO Q6H PRN PRN Pain Score 1-10 #1 TAB 04/16/22 [Rx Last Taken Unknown] magnesium chloride 64 mg (magnesium chloride) tablet,delayed release (Mag 64) 128 mg PO BID #60 tabs 04/16/22 [Rx Last Taken 06/28/22] potassium chloride 20 mEq tablet,extended release(part/cryst) (Klor-Con M) 20 meq PO BIDCM #60 tabs 04/16/22 [Rx Last Taken 06/28/22] amlodipine 10 mg tablet 10 mg PO DAILY 04/30/22 [History Last Taken 06/28/22] clopidogrel 75 mg tablet 75 mg PO DAILY Check with primary doctor #90 tabs 04/30/22 [Rx Last Taken 06/28/22] furosemide 40 mg tablet 40 mg PO DAILY #90 tabs 04/30/22 [Rx Last Taken 06/28/22] sacubitril 49 mg-valsartan 51 mg tablet (Entresto) 1 tab PO BID #180 tabs 04/30/22 [Rx Last Taken 06/28/22] atorvastatin 40 mg tablet 40 mg PO DAILY CHOLESTEROL 06/28/22 [History Last Taken 06/27/22] insulin regular hum U-500 conc 500 unit/mL(3 mL) subcut pen (Humulin R U-500 (Conc) Insulin Kwikpen) 75 units subcut 1130 06/28/22 [History Last Taken 06/27/22] insulin regular hum U-500 conc 500 unit/mL(3 mL) subcut pen (Humulin R U-500 (Conc) Insulin Kwikpen) 85 units subcut 1630 06/28/22 [History Last Taken 06/27/22] insulin regular hum U-500 conc 500 unit/mL(3 mL) subcut pen (Humulin R U-500 (Conc) Insulin Kwikpen) 85 units subcut BREAKFAST 06/28/22 [History Last Taken 06/28/22] Allergy/AdvReac Type Severity Reaction Status Date / Time No Known Allergies Allergy Verified 06/28/22 10:51 Family History Mother Diabetes Father Heart disease CVA (cerebral vascular accident) Surgical History History of back surgery History of cholecystectomy History of hernia surgery Social History household members: spouse and children housing: apartment current occupational status: disabled Smoking Status: Former smoker Tobacco: How many years used: 30 how long ago did patient quit smokin alcohol intake: never substance use type: does not use diet: diabetic caffeine: Yes Type: coffee Number of servings: 1 what type of physical activity do you participate in: walking ROS ROS ED Constitutional Constitutional ED: Denies chills, fever(s), subjective, sweats or weight loss Eyes Eyes: Reports blurry vision bilateral; Denies change in vision or diplopia ENT ENT ED: Denies ear pain, rhinorrhea or sore throat Cardiovascular Cardiovascular: Denies chest pain, orthopnea, palpitations or paroxysmal nocturnal dyspnea Respiratory/Chest Respiratory/Chest: Denies cough, dyspnea, dyspnea on exertion, orthopnea or paroxysmal nocturnal dyspnea Gastrointestinal Gastrointestinal: Denies abdominal pain, diarrhea, nausea or vomiting Genitourinary Genitourinary ED: Reports dysuria; Denies hematuria or urinary frequency Musculoskeletal Musculoskeletal: Denies arthralgias, back pain, myalgias or neck pain Integumentary Denies abscess, Abrasions or rash Neurologic Neurologic: Reports weakness; Denies headache(s) or paresthesias Psychiatric Psychiatric: Reports anxiety Endocrine Endocrinology: Reports polydipsia and polyuria; Denies cold intolerance or heat intolerance Hematologic/Lymphatic Hematologic/Lymphatic: Reports systems reviewed and no addt'l complaints, except as documented EXAM Physical Exam Const Vital Signs: 08/23/22 13:56 Temperature 98.4 F Temperature Source Temporal Pulse Rate 68 Respiratory Rate 16 Blood Pressure 160/76 H Blood Pressure Mean 104 Pulse Ox 97 Oxygen Delivery Method Room Air Positive well nourished, well developed, obese and unkempt General Appearance ED: unkempt, well developed and NAD; Negative for cyanotic, diaphoretic or pallor Nutritional Appearance: obese HEENT Reports dry mucous membranes HEENT Narrative: Head is atraumatic normocephalic. Ears are normal. Nares are patent. Posterior pharynx is normal. Uvula is midline. There is no protrusion. Mouth ED: Yes dry mucous membranes Mouth: dry mucous membranes Eyes PERRL and EOMs intact bilaterally General Eye ED: Negative for pale conjunctiva or scleral icterus Neck no lymphadenopathy, supple and no JVD Chest Wall inspection of chest normal and palpation of chest normal Resp normal respiratory effort and clear to auscultation bilaterally Cardio regular rate, regular rhythm, S1 normal heart sound, S2 normal heart sound and no murmurs GI normal to inspection, nondistended, normoactive bowel sounds, non-tender, non- distended and no masses; Negative for hepatosplenomegaly Narrative: There is no pain over the suprapubic region. Back/Spine no CVA tenderness Extremity normal to inspection Extremity Narrative: Stigmata of peripheral arterial disease. General Extremety ED: Yes edema; Negative for tenderness General Extremity: edema Neuro oriented x3, CN's II-XII intact bilaterally and no sensory deficits noted Sensorium / Orientation: alert Motor Exam: strength 5/5 throughout Psych mental status grossly normal Appearance: unkempt Skin no rashes or lesions noted, no wounds and No skin turgor normal General Skin Exam: Negative for jaundice or pallor MDM MDM MDM Narrative Medical decision making narrative: Patient with transient disorientation to time. He also has urinary symptoms. Will obtain UA and assess for UTI, infection encephalopathy. CBC was obtained assess white count and rule out anemia. Basic metabolic panel to assess renal function and glucose. History & Record Review Additional record(s) reviewed:: Prior outpatient record and Prior labs Lab Data Attestation: I reviewed the patient's lab results. Lab results narrative: See BC is normal. Basic metabolic panel reveals an elevated BUN of 23. Creatinine is 1.3. GFR is 59. Glucose is 184 with a normal CO2 and Anion gap. UA is negative. Labs: Laboratory Results - last 24 hr 08/23/22 08/23/22 08/23/22 14:00 14:00 15:14 WBC 7.4 RBC 5.04 Hgb 15.0 Hct 43.1 MCV 85.5 MCH 29.8 MCHC 34.8 RDW Std Deviation 37.9 RDW Coeff of Eben 12.3 Plt Count 190 MPV 10.0 Immature Gran % (Auto) 0.400 Neut % (Auto) 72.2 H Lymph % (Auto) 16.9 L Letcher % (Auto) 9.0 Eos % (Auto) 1.2 Baso % (Auto) 0.3 Absolute Neuts (auto) 5.3 Absolute Lymphs (auto) 1.24 Nucleated RBC % 0 Sodium 138 Potassium 3.6 Chloride 101 Carbon Dioxide 32.0 Anion Gap 5 BUN 23 H Creatinine 1.30 Estim Creat Clear Calc 50.44 Est GFR (MDRD) Af Amer 71 Est GFR (MDRD) Non-Af 59 L BUN/Creatinine Ratio 17.7 Glucose 184 H Calcium 9.1 Urine Color Yellow Urine Clarity Clear Urine pH 6.5 Ur Specific [place] 1.015 Urine Protein 30 H Urine Glucose (UA) Normal Urine Ketones Negative Urine Occult Blood 10 H Urine Nitrite Negative Urine Bilirubin Negative Urine Urobilinogen 1 H Ur Leukocyte Esterase Negative Urine RBC 0 SEEN Urine WBC 0 SEEN Ur Squamous Epith Cells 0 SEEN Urine Bacteria 0 SEEN Urine Mucus 0 SEEN Treatment and Re-Evaluation :: Patient was informed of his results. Since he had a transient period of disorientation to time he was discharged to home. This could be due to age/dementia. Discharge Plan Triage Chief Complaint: Confusion ED Provider: Real Mendoza Dx/Rx/DC Orders Clinical Impression: Disoriented to time, Cardiomyopathy, Hyperlipemia, Essential hypertension, Diabetes Instructions: ED ALOC Prescriptions: No Action amlodipine 10 mg tablet 10 mg PO DAILY Entresto 49-51 mg tablet 1 tab PO BID Qty: 180 3RF clopidogrel 75 mg tablet 75 mg PO DAILY Qty: 90 3RF furosemide 40 mg tablet 40 mg PO DAILY Qty: 90 3RF metoprolol tartrate 100 MG tablet 150 mg PO BID nortriptyline 10 MG capsule 30 mg PO DAILY calcium carbonate 500 MG tablet 650 mg PO BID Fish Oil 1 EACH capsule 1,000 mg PO BID cholecalciferol (vitamin D3) [Vitamin D3] 1,000 UNIT tablet 1,000 unit PO BID modafinil 200 MG tablet 200 mg PO DAILY buspirone 10 MG tablet 10 mg PO BID aspirin 81 MG tablet,chewable 81 mg PO DAILY tamsulosin 0.4 mg Capsule 0.4 mg PO DAILY pregabalin 100 mg Capsule 200 - 300 mg PO BID sertraline 150 mg Capsule 150 mg PO DAILY acetaminophen 500 mg Tablet 1,000 mg PO Q6H PRN PRN (Reason: Pain Score 1-10) Qty: 1 0RF potassium chloride [Klor-Con M20] 20 mEq Tablet,Er Particles/Crystals 20 meq PO BIDCM Qty: 60 0RF Mag 64 64 mg Tablet,Delayed Release (Dr/Ec) 128 mg PO BID Qty: 60 0RF atorvastatin 40 mg Tablet 40 mg PO DAILY Humulin R U-500 (Conc) Kwikpen 500 unit/mL (3 mL) insulin pen 85 units subcut BREAKFAST Humulin R U-500 (Conc) Kwikpen 500 unit/mL (3 mL) insulin pen 75 units subcut 1130 Humulin R U-500 (Conc) Kwikpen 500 unit/mL (3 mL) insulin pen 85 units subcut 1630 [facility] [[facility] Provider[facility] - Disposition Disposition: Home, Self Care
[2022-08-23 15:44] LABS: Color, Urine Yellow (Yellow); Glucose, Dipstick Normal (Normal); Ketone-Dipstick Negative (Negative); Leukocyte Esterase-Dipstick Negative /ul (Negative); Nitrite-Dipstick Negative (Negative); Occult Blood-Urine 10 /ul (Negative); Protein-Dipstick 30 mg/dl (Negative); Specific Gravity, Urine 1.015 (1.002-1.030); Urine Bilirubin Dipstick Negative (Negative); Urine Clarity Clear (Clear); Urine Urobilinogen 1 mg/dl (Normal); Urine pH 6.5 (5.0 - 8.0)
[2022-08-23 16:49] VITALS: BP 176/93; PULSE 84; RESP 16; O2SAT 97
== END 2022-08-23 16:51 | disposition home or self-care (01) ==
PROVIDERS: Emergency Provider Emergency Medicine; Visit Provider Emergency Medicine
DX: R41.0 Disorientation, unspecified (principal); I42.9 Cardiomyopathy, unspecified; E11.9 Type 2 diabetes mellitus without complications; I25.10 Atherosclerotic heart disease of native coronary artery without angina pectoris; R39.15 Urgency of urination; Z87.891 Personal history of nicotine dependence; H54.7 Unspecified visual loss; Z82.3 Family history of stroke; G47.33 Obstructive sleep apnea (adult) (pediatric); I10 Essential (primary) hypertension; E55.9 Vitamin D deficiency, unspecified; E78.5 Hyperlipidemia, unspecified; M81.0 Age-related osteoporosis without current pathological fracture; Z86.73 Personal history of transient ischemic attack (TIA), and cerebral infarction without residual deficits; Z86.16 Personal history of COVID-19
CPT/HCPCS: 80048; 81001; 85025; 99285; A4216

== ENCOUNTER 2023-01-18 07:34 | Emergency (ER) | payer MEDICARE, SELFPAY ==
[2023-01-18 07:34] VITALS: BP 120/70; PULSE 70; RESP 18; TEMP 35.8; O2SAT 98
--- NOTE | 2023-01-18 08:14 | CT_ITS ---
STUDY: CT BRAIN WITHOUT CONTRAST REASON FOR EXAM: Male, 67 years old. Head trauma RADIATION DOSAGE (If Supplied By Facility): CTDIvol = ( 44.99 ) mGy, DLP = ( 796.11 ) mGycm TECHNIQUE: Transaxial CT imaging of the brain was performed without administration of intravenous contrast material. Individualized dose optimization techniques were used for this CT. COMPARISON: No relevant priors. FINDINGS: Normal soft tissue structures. Normal calvarium. There is mild cerebral atrophy with widening of the extra-axial spaces and ventricular dilatation. There are areas of decreased attenuation within the white matter tracts of the supratentorial brain, consistent with microvascular disease changes. Normal basal ganglia and thalami. Normal brainstem. Normal cerebellum. There is no intracranial hemorrhage. There are no findings of an acute ischemic infarction. Normal visualized paranasal sinuses. CT/Brain/Head without Contrast IMPRESSION: Chronic involutional changes of the brain. Electronically Signed: Isaias Kiran MD at 9:27 EDT ,
--- NOTE | 2023-01-18 08:14 | EKG12_ITS ---
Test Reason : FALL Blood Pressure : / mmHG Vent. Rate : 067 BPM Atrial Rate : 067 BPM P-R Int : 174 ms QRS Dur : 098 ms QT Int : 462 ms P-R-T Axes : 015 010 112 degrees QTc Int : 488 ms Normal sinus rhythm T wave abnormality, consider lateral ischemia Abnormal ECG Confirmed by ASIYA FERREIRA, MINNIE ([id number]), newspaper managing editor GENARO JIMENEZ ([id number]) on 01/20/2023 1:15:24 PM Referred By: Confirmed By:MINNIE BRADEN MD
--- NOTE | 2023-01-18 08:45 | RAD_ITS ---
STUDY: X-RAY CHEST REASON FOR EXAM: Male, 67 years old. FELL LAST NIGHT, +LOC TECHNIQUE: Single AP portable view of the chest. COMPARISON: June 28, 2022 FINDINGS: The lungs are clear and expanded. There is no demonstrated pleural abnormality. Normal size heart. Normal mediastinum and orin. Normal visualized pulmonary arteries. There is atherosclerotic calcification of the aortic arch with tortuosity. There are diffuse degenerative changes of the visualized thoracic spine. Normal visualized ribs, clavicles, and shoulders. There is no demonstrated abnormality of the visualized soft tissue structures of the upper abdomen. RAD/Chest 1 View (Portable) IMPRESSION: Degenerative changes, as described above. No demonstrated acute cardiopulmonary process. Electronically Signed: Joe Johnson MD at 9:46 EDT ,
[2023-01-18 08:49] LABS: Absolute Lymphocyte Count 1.37 X10^3/uL (0.83-4.51); Absolute Neutrophil Count 6.5 X10^3/uL (2.0-7.7); Basophil# 0.03 X10^3/uL; Basophil% 0.3 % (0-1); Eosinophil# 0.17 X10^3/uL; Eosinophils% 1.9 % (0-5); Hematocrit 41.6 % (40-54); Hemoglobin 14.4 g/dL (13.0-16.5); Lymphocyte # 1.37 X10^3/ul (0.83-4.51); Lymphocyte % 15.4 % (19-41); Mean Corp Hgb Conc 34.6 g/dL (32-36); Mean Corpuscular Hgb 29.5 pg (27.0-32.0); Mean Corpuscular Volume 85.2 fL (80-94); Mean Platelet Vol. 9.9 fl (6.2-12.0); Monocyte# 0.77 X10^3/uL; Monocyte% 8.7 % (0-10); NRBC Flagged by Analyzer 0 % (0-5); Neutrophil # 6.53 X10^3/uL (2.7-7.7); Neutrophil % 73.4 % (47-70); Platelet Count 186 K/mm3 (150-450); RBC Distribution Width CV 12.4 % (11.6-14.6); Red Blood Count 4.88 M/mm3 (4.6-6.2); White Blood Count 8.9 K/mm3 (4.4-11.0)
[2023-01-18 08:56] LABS: Anion Gap 5 (5-15); BUN 26 mg/dL (7-18); BUN/Creat Ratio 17.6 RATIO (10-20); Calcium,Total 9.1 mg/dL (8.5-10.1); Chloride 101 mmol/L (98-107); Creatinine, Serum 1.48 mg/dL (0.70-1.30); EST Glomerular Filtration Rate 50 mL/min (>60); Est Glom Filt Rate - Afr Amer 61 mL/min (>60); Glucose 78 mg/dL (74-106); Potassium 3.7 mmol/L (3.5-5.1); Sodium Level 137 mmol/L (136-145); Troponin-I HS 44 pg/mL (3.0-78.0)
[2023-01-18 09:07] LABS: BNP,B-Type NATRIURETIC PEPTIDE 53.7 pg/mL (0-100)
[2023-01-18 09:34] VITALS: RESP 16
--- NOTE | 2023-01-18 11:48 | EX.ED.DYSGE1 ---
HPI History of Present Illness Chief Complaint: Head Injury Narrative Narrative: 67-year-old male presenting after a fall. It is unclear to me whether he fell last night or this morning. Patient states that he has baseline difficulty walking secondary to a stroke and he is also developed visual problems secondary to cataracts which she supposed to have repaired tomorrow. He states that he has been holding his Plavix for this reason. He is not on any other anticoagulation. Apparently got up to go to the bathroom sometime overnight and fell hitting his head. No LOC is reported. He sustained a superficial abrasion to the bridge of his nose and to the left eyebrow. His vision is poor but is unchanged. Denies neck pain. States has been more lightheaded recently but nothing acutely has changed with his balance, however with his poor vision it makes it very hard to get around. [facility] Medical History Anxiety Chest pain Chronic pain Coronary artery disease CPAP (continuous positive airway pressure) dependence Depression Diabetic polyneuropathy Diabetic retinopathy DM2 (diabetes mellitus, type 2) Elevated lipase Elevated troponin Essential (primary) hypertension Former smoker GERD (gastroesophageal reflux disease) GI bleed Hearing loss, left Hearing loss, right Hernia History of COVID-19 Hyperlipidemia Hypothyroidism Ischemic stroke Migraine headache Myocardial infarct Narcolepsy Obstructive sleep apnea Osteoporosis Sleep apnea Vision loss of right eye Vitamin D deficiency Home Medications metoprolol tartrate 100 mg tablet 150 mg PO BID blood pressure 10/05/16 [History Last Taken 06/28/22] nortriptyline 10 mg capsule 30 mg PO DAILY migraines 10/05/16 [History Last Taken 2 Days Ago ~06/26/22] calcium carbonate 500 mg calcium (1,250 mg) tablet 650 mg PO BID supplement 08/17/17 [History Last Taken 06/28/22] cholecalciferol (vitamin D3) 25 mcg (1,000 unit) tablet (Vitamin D3) 1,000 unit PO BID vitamin 08/17/17 [History Last Taken 06/28/22] omega-3 fatty acids-fish oil 340 mg-1,000 mg capsule (Fish Oil) 1,000 mg PO BID supplement 08/17/17 [History Last Taken 06/28/22] buspirone 10 mg tablet 10 mg PO BID mood 06/17/19 [History Last Taken 06/28/22] modafinil 200 mg tablet 200 mg PO DAILY narcolepsy 06/17/19 [History Last Taken 04/03/21 08:00] aspirin 81 mg chewable tablet 81 mg PO DAILY heart health 08/17/19 [History Last Taken 06/28/22] tamsulosin 0.4 mg capsule 0.4 mg PO DAILY urine 03/30/21 [History Last Taken 06/27/22] pregabalin 100 mg capsule 200 - 300 mg PO BID pain 03/19/22 [History Last Taken 06/28/22] sertraline 150 mg capsule 150 mg PO DAILY mood 03/19/22 [History Last Taken 06/28/22] acetaminophen 500 mg tablet 1,000 mg (2 x 500 mg) PO Q6H PRN PRN Pain Score 1-10 #1 TAB 04/16/22 [Rx Last Taken Unknown] magnesium chloride 64 mg (magnesium chloride) tablet,delayed release (Mag 64) 128 mg (2 x 64 mg) PO BID #60 tabs 04/16/22 [Rx Last Taken 06/28/22] potassium chloride 20 mEq tablet,extended release(part/cryst) (Klor-Con M) 20 meq PO BIDCM #60 tabs 04/16/22 [Rx Last Taken 06/28/22] amlodipine 10 mg tablet 10 mg PO DAILY 04/30/22 [History Last Taken 06/28/22] clopidogrel 75 mg tablet 75 mg PO DAILY Check with primary doctor #90 tabs 04/30/22 [Rx Last Taken 06/28/22] furosemide 40 mg tablet 40 mg PO DAILY #90 tabs 04/30/22 [Rx Last Taken 06/28/22] sacubitril 49 mg-valsartan 51 mg tablet (Entresto) 1 tab PO BID #180 tabs 04/30/22 [Rx Last Taken 06/28/22] atorvastatin 40 mg tablet 40 mg PO DAILY CHOLESTEROL 06/28/22 [History Last Taken 06/27/22] insulin regular hum U-500 conc 500 unit/mL(3 mL) subcut pen (Humulin R U-500 (Conc) Insulin Kwikpen) 75 units subcut 1130 06/28/22 [History Last Taken 06/27/22] insulin regular hum U-500 conc 500 unit/mL(3 mL) subcut pen (Humulin R U-500 (Conc) Insulin Kwikpen) 85 units subcut 1630 06/28/22 [History Last Taken 06/27/22] insulin regular hum U-500 conc 500 unit/mL(3 mL) subcut pen (Humulin R U-500 (Conc) Insulin Kwikpen) 85 units subcut BREAKFAST 06/28/22 [History Last Taken 06/28/22] Allergy/AdvReac Type Severity Reaction Status Date / Time No Known Allergies Allergy Verified 06/28/22 10:51 Family History Mother Diabetes Father Heart disease CVA (cerebral vascular accident) Surgical History History of back surgery History of cholecystectomy History of hernia surgery Social History household members: spouse and children housing: apartment current occupational status: disabled Smoking Status: Former smoker Tobacco: How many years used: 30 how long ago did patient quit smokin alcohol intake: never substance use type: does not use diet: diabetic caffeine: Yes Type: coffee Number of servings: 1 what type of physical activity do you participate in: walking ROS ROS ED ROS Narrative Lightheadedness Constitutional Constitutional ED: Denies chills, fever(s) or sweats Eyes Eyes: Denies blurry vision or change in vision ENT ENT ED: Denies ear pain or sore throat Cardiovascular Cardiovascular: Denies chest pain, palpitations or racing heartbeat Respiratory/Chest Respiratory/Chest: Denies cough, dyspnea or sputum Gastrointestinal Gastrointestinal: Denies abdominal pain, constipation, diarrhea, nausea or vomiting Genitourinary Genitourinary ED: Denies dysuria, hematuria or urinary frequency Musculoskeletal Musculoskeletal: Denies arthralgias, myalgias or neck pain Integumentary Reports rash and other Details: Superficial abrasions to the face ; Denies abscess or Abrasions Neurologic Neurologic: Denies headache(s), paresthesias or weakness Psychiatric Psychiatric: Denies anxiety, depression, suicidal ideation or suicidal thoughts Endocrine Endocrinology: Denies polydipsia or polyuria EXAM Physical Exam Const Vital Signs: 01/18/23 07:34 01/18/23 08:33 08/05/23 09:34 Temperature 96.5 F L Temperature Source Temporal Pulse Rate 70 Respiratory Rate 18 16 Blood Pressure 120/70 Blood Pressure Mean 86 Pulse Ox 98 Oxygen Delivery Method Room Air Room Air Positive well nourished General Appearance ED: NAD HEENT Reports moist mucous membranes HEENT Narrative: 1 cm superficial laceration to the bridge of the nose. 1 superficial laceration to the medial eyebrow. Both are about 1 cm. There is no deformity of the nasal bone. Nasal septum midline. No nasal septal hematoma. No hemotympanum. Eyes PERRL and EOMs intact bilaterally Neck no lymphadenopathy Chest Wall inspection of chest normal Resp normal respiratory effort and clear to auscultation bilaterally Auscultation: Negative for rales, rhonchi or wheezes Cardio regular rate and regular rhythm GI normal to inspection, nondistended, normoactive bowel sounds Neuro oriented x3, CN's II-XII intact bilaterally and no sensory deficits noted Sensorium / Orientation: alert Motor Exam: strength 5/5 throughout Skin Skin Narrative: As described above MDM MDM MDM Narrative Medical decision making narrative: Patient presenting with lightheadedness and he fell and hit his head. No LOC. Patient is on Plavix but has been holding it for surgery tomorrow on his cataracts. He has superficial lacerations to the face that do not need suturing. Patient feels well but he is little more lightheaded. Differential includes dehydration, anemia, electrolyte abnormalities, intracranial hemorrhage, dysrhythmia, acute coronary syndrome. Patient not reporting any chest pain however. EKG was obtained and on my interpretation shows a normal sinus rhythm with a ventricular rate of 67 bpm. Chest x-ray my today shows no acute process. CBC was obtained and shows no evidence of leukocytosis or anemia. Platelets are normal. Creatinine slightly elevated today at 1.48. The rest of his BMP is unremarkable. High-sensitivity troponin 44. BNP 53.7. Discussed findings with the patient and he is amenable to going home. I do not believe needs a delta troponin is not reporting any chest pain. He does have chronic debility and this is confirmed by his son who is at the bedside. [facility] getting and followed [facility]. Patient will be discharged home in stable condition. Return precautions were discussed. Impression: 1. mechanical fall 2. Superficial facial lacerations 3. Closed head injury 4. Lightheadedness Lab Data Attestation: I reviewed the patient's lab results. Labs: Laboratory Results - last 24 hr 01/18/23 08:14 WBC 8.9 RBC 4.88 Hgb 14.4 Hct 41.6 MCV 85.2 MCH 29.5 MCHC 34.6 RDW Std Deviation 38.0 RDW Coeff of Eben 12.4 Plt Count 186 MPV 9.9 Immature Gran % (Auto) 0.300 Neut % (Auto) 73.4 H Lymph % (Auto) 15.4 L [place] % (Auto) 8.7 Eos % (Auto) 1.9 Baso % (Auto) 0.3 Absolute Neuts (auto) 6.5 Absolute Lymphs (auto) 1.37 Nucleated RBC % 0 Sodium 137 Potassium 3.7 Chloride 101 Carbon Dioxide 31.0 Anion Gap 5 BUN 26 H Creatinine 1.48 H Est GFR (MDRD) Af Amer 61 Est GFR (MDRD) Non-Af 50 L BUN/Creatinine Ratio 17.6 Glucose 78 Calcium 9.1 Troponin I High Sens 44 B-Natriuretic Peptide 53.7 Radiography Diagnostic Testing: Clinical Impression(s) from Imaging Studies Brain CT 01/18/23 08:14 IMPRESSION: Chronic involutional changes of the brain. Electronically Signed: Isaias Kiran MD at 9:27 EDT , Chest X-Ray 01/18/23 08:45 IMPRESSION: Degenerative changes, as described above. No demonstrated acute cardiopulmonary process. Electronically Signed: Joe Johnson MD at 9:46 EDT , Discharge Plan Triage Chief Complaint: Head Injury Other Complaint: Fall ED Provider: Carlo Santana Dx/Rx/DC Orders Instructions: ED Dizziness, Uncertain Cause, ED Head Injury (Adult), ED Laceration Small or ..., ED Fall Prevention Prescriptions: No Action amlodipine 10 mg tablet 10 mg PO DAILY Entresto 49-51 mg tablet 1 tab PO BID Qty: 180 3RF clopidogrel 75 mg tablet 75 mg PO DAILY Qty: 90 3RF furosemide 40 mg tablet 40 mg PO DAILY Qty: 90 3RF metoprolol tartrate 100 MG tablet 150 mg PO BID nortriptyline 10 MG capsule 30 mg PO DAILY calcium carbonate 500 MG tablet 650 mg PO BID Fish Oil 1 EACH capsule 1,000 mg PO BID cholecalciferol (vitamin D3) [Vitamin D3] 1,000 UNIT tablet 1,000 unit PO BID modafinil 200 MG tablet 200 mg PO DAILY buspirone 10 MG tablet 10 mg PO BID aspirin 81 MG tablet,chewable 81 mg PO DAILY tamsulosin 0.4 mg Capsule 0.4 mg PO DAILY pregabalin 100 mg Capsule 200 - 300 mg PO BID sertraline 150 mg Capsule 150 mg PO DAILY acetaminophen 500 mg Tablet 1,000 mg PO Q6H PRN PRN (Reason: Pain Score 1-10) Qty: 1 0RF potassium chloride [Klor-Con M20] 20 mEq Tablet,Er Particles/Crystals 20 meq PO BIDCM Qty: 60 0RF Mag 64 64 mg Tablet,Delayed Release (Dr/Ec) 128 mg PO BID Qty: 60 0RF atorvastatin 40 mg Tablet 40 mg PO DAILY Humulin R U-500 (Conc) Kwikpen 500 unit/mL (3 mL) insulin pen 85 units subcut BREAKFAST Humulin R U-500 (Conc) Kwikpen 500 unit/mL (3 mL) insulin pen 75 units subcut 1130 Humulin R U-500 (Conc) Kwikpen 500 unit/mL (3 mL) insulin pen 85 units subcut 1630 [facility] [facility] [Primary Care Provider] - Disposition Disposition: Home, Self Care Discharge Date/Time: 01/18/23 11:05
== END 2023-01-18 11:05 | disposition home or self-care (01) ==
PROVIDERS: Emergency Provider Student in an Organized Health Care Education/Training Program; Visit Provider Student in an Organized Health Care Education/Training Program
DX: S01.81XA Laceration without foreign body of other part of head, initial encounter (principal); E11.42 Type 2 diabetes mellitus with diabetic polyneuropathy; E55.9 Vitamin D deficiency, unspecified; E78.5 Hyperlipidemia, unspecified; R42 Dizziness and giddiness; I10 Essential (primary) hypertension; G47.33 Obstructive sleep apnea (adult) (pediatric); I25.10 Atherosclerotic heart disease of native coronary artery without angina pectoris; W19.XXXA Unspecified fall, initial encounter; M81.0 Age-related osteoporosis without current pathological fracture; Z87.891 Personal history of nicotine dependence; S09.90XA Unspecified injury of head, initial encounter; R94.31 Abnormal electrocardiogram [ECG] [EKG]
CPT/HCPCS: 70450; 71045; 80048; 83880; 84484; 85025; 93005; 99285

== ENCOUNTER 2023-04-27 13:55 | Emergency (ER) | payer MEDICARE, SELFPAY ==
[2023-04-27 13:56] VITALS: BP 119/86; PULSE 105; RESP 14; TEMP 37.2; O2SAT 98
--- NOTE | 2023-04-27 14:10 | EKG12_ITS ---
Test Reason : HTN Blood Pressure : / mmHG Vent. Rate : 102 BPM Atrial Rate : 102 BPM P-R Int : 182 ms QRS Dur : 146 ms QT Int : 394 ms P-R-T Axes : 037 105 021 degrees QTc Int : 513 ms Sinus tachycardia Right bundle branch block Abnormal ECG Confirmed by MINNIE BRADEN MD ([id number]), senior technical editor GENARO JIMENEZ ([id number]) on 05/06/2023 2:10:53 PM Referred By: NOEL Confirmed By:MINNIE BRADEN MD
--- NOTE | 2023-04-27 14:11 | EX.ED.DYSGE1 ---
HPI History of Present Illness Chief Complaint: Abd Pain Detail of Chief Complaint: Weakness, nausea, and vomiting. Informant: patient and family Narrative Narrative: Patient presents with family today secondary to generalized weakness with nausea and vomiting. Patient was seen at urgent care yesterday after suffering a dog bite to his right hand and wrist 2 weeks ago. Area is scabbed and he was started on doxycycline. Family reports this morning he seemed very fatigued. They were bringing him to the hospital to be evaluated for his weakness when he had nausea and vomiting in the car. He denies chest or abdominal pain. Family does not believe he is ever had doxycycline in the past. They are unsure if this may be a reaction to the medication. [facility] Medical History Anxiety Chest pain Chronic pain Coronary artery disease CPAP (continuous positive airway pressure) dependence Depression Diabetic polyneuropathy Diabetic retinopathy DM2 (diabetes mellitus, type 2) Elevated lipase Elevated troponin Essential (primary) hypertension Former smoker GERD (gastroesophageal reflux disease) GI bleed Hearing loss, left Hearing loss, right Hernia History of COVID-19 Hyperlipidemia Hypothyroidism Ischemic stroke Migraine headache Myocardial infarct Narcolepsy Obstructive sleep apnea Osteoporosis Sleep apnea Vision loss of right eye Vitamin D deficiency Home Medications metoprolol tartrate 100 mg tablet 150 mg PO BID blood pressure 10/05/16 [History Last Taken 06/28/22] nortriptyline 10 mg capsule 30 mg PO DAILY migraines 10/05/16 [History Last Taken 2 Days Ago ~06/26/22] calcium carbonate 500 mg calcium (1,250 mg) tablet 650 mg PO BID supplement 08/17/17 [History Last Taken 06/28/22] cholecalciferol (vitamin D3) 25 mcg (1,000 unit) tablet (Vitamin D3) 1,000 unit PO BID vitamin 08/17/17 [History Last Taken 06/28/22] omega-3 fatty acids-fish oil 340 mg-1,000 mg capsule (Fish Oil) 1,000 mg PO BID supplement 08/17/17 [History Last Taken 06/28/22] buspirone 10 mg tablet 10 mg PO BID mood 06/17/19 [History Last Taken 06/28/22] modafinil 200 mg tablet 200 mg PO DAILY narcolepsy 06/17/19 [History Last Taken 04/03/21 08:00] aspirin 81 mg chewable tablet 81 mg PO DAILY heart health 08/17/19 [History Last Taken 06/28/22] tamsulosin 0.4 mg capsule 0.4 mg PO DAILY urine 03/30/21 [History Last Taken 06/27/22] pregabalin 100 mg capsule 200 - 300 mg PO BID pain 03/19/22 [History Last Taken 06/28/22] sertraline 150 mg capsule 150 mg PO DAILY mood 03/19/22 [History Last Taken 06/28/22] acetaminophen 500 mg tablet 1,000 mg (2 x 500 mg) PO Q6H PRN PRN Pain Score 1-10 #1 TAB 04/16/22 [Rx Last Taken Unknown] magnesium chloride 64 mg (magnesium chloride) tablet,delayed release (Mag 64) 128 mg (2 x 64 mg) PO BID #60 tabs 04/16/22 [Rx Last Taken 06/28/22] potassium chloride 20 mEq tablet,extended release(part/cryst) (Klor-Con M) 20 meq PO BIDCM #60 tabs 04/16/22 [Rx Last Taken 06/28/22] amlodipine 10 mg tablet 10 mg PO DAILY 04/30/22 [History Last Taken 06/28/22] clopidogrel 75 mg tablet 75 mg PO DAILY Check with primary doctor #90 tabs 04/30/22 [Rx Last Taken 06/28/22] furosemide 40 mg tablet 40 mg PO DAILY #90 tabs 04/30/22 [Rx Last Taken 06/28/22] sacubitril 49 mg-valsartan 51 mg tablet (Entresto) 1 tab PO BID #180 tabs 04/30/22 [Rx Last Taken 06/28/22] atorvastatin 40 mg tablet 40 mg PO DAILY CHOLESTEROL 06/28/22 [History Last Taken 06/27/22] insulin regular hum U-500 conc 500 unit/mL(3 mL) subcut pen (Humulin R U-500 (Conc) Insulin Kwikpen) 75 units subcut 1130 06/28/22 [History Last Taken 06/27/22] insulin regular hum U-500 conc 500 unit/mL(3 mL) subcut pen (Humulin R U-500 (Conc) Insulin Kwikpen) 85 units subcut 1630 06/28/22 [History Last Taken 06/27/22] insulin regular hum U-500 conc 500 unit/mL(3 mL) subcut pen (Humulin R U-500 (Conc) Insulin Kwikpen) 85 units subcut BREAKFAST 06/28/22 [History Last Taken 06/28/22] metoclopramide HCl 10 mg tablet (Reglan) 10 mg PO Q6H PRN nausea and vomiting #10 tabs 04/27/23 [Rx Last Taken Unknown] Allergy/AdvReac Type Severity Reaction Status Date / Time No Known Allergies Allergy Verified 04/27/23 13:56 Family History Mother Diabetes Father Heart disease CVA (cerebral vascular accident) Surgical History History of back surgery History of cholecystectomy History of hernia surgery Social History household members: spouse and children housing: apartment current occupational status: disabled Smoking Status: Former smoker Tobacco: How many years used: 30 how long ago did patient quit smokin alcohol intake: never substance use type: does not use diet: diabetic caffeine: Yes Type: coffee Number of servings: 1 what type of physical activity do you participate in: walking ROS ROS ED Constitutional Constitutional ED: Denies chills or fever(s) Eyes Eyes: Denies discharge from eye(s) ENT ENT ED: Denies discharge from eye(s), rhinorrhea or sore throat Cardiovascular Cardiovascular: Denies chest pain or palpitations Respiratory/Chest Respiratory/Chest: Denies cough or dyspnea Gastrointestinal Gastrointestinal: Reports nausea and vomiting; Denies abdominal pain or diarrhea Genitourinary Genitourinary ED: Denies dysuria Musculoskeletal Musculoskeletal: Denies back pain or extremity pain Integumentary Reports other Details: Scabbed wounds to right wrist and hand Neurologic Neurologic: Reports weakness; Denies headache(s) Psychiatric Psychiatric: Denies anxiety or depression Allergic/Immunologic Allergic/Immunologic ED: Denies lip swelling or urticaria EXAM Physical Exam Const Vital Signs: 04/27/23 13:56 Temperature 99 F Temperature Source Temporal Pulse Rate 105 H Respiratory Rate 14 Blood Pressure 119/86 H Blood Pressure Mean 97 Pulse Ox 98 Oxygen Delivery Method Room Air Positive well nourished and well developed General Appearance ED: well developed Eyes EOMs intact bilaterally Chest Wall inspection of chest normal and palpation of chest normal Resp normal respiratory effort and clear to auscultation bilaterally Cardio regular rate and regular rhythm GI GI Narrative: Abdomen soft with no focal tenderness. Active bowel sounds are noted. No guarding or rebound. Extremity Extremity Narrative: Scabbed wounds noted to the right hand and wrist. No sign of secondary infection at this time. 2-3+ bilateral lower extremity edema, symmetric. Neuro Neuro Narrative: Chronic weakness secondary to prior stroke. No new deficits noted in discussion with family. MDM MDM MDM Narrative Medical decision making narrative: Patient placed on quality assurance monitor. IV line established. EKG obtained to evaluate for cardiac arrhythmia/ischemia. Labwork obtained to evaluate for leukocytosis, anemia, and electrolyte derangement. Patient given IV fluids and reglan. History & Record Review Discussion w/independent historian: Patient and Family Additional record(s) reviewed:: Prior ED visit and Prior labs Lab Data Attestation: I reviewed the patient's lab results. Labs: Laboratory Results - last 24 hr 04/27/23 14:12 WBC 8.5 RBC 4.74 Hgb 13.9 Hct 41.7 MCV 88.0 MCH 29.3 MCHC 33.3 RDW Std Deviation 39.4 RDW Coeff of Eben 12.3 Plt Count 162 MPV 9.5 Immature Gran % (Auto) 0.600 Neut % (Auto) 89.8 H Lymph % (Auto) 2.8 L [place] % (Auto) 5.5 Eos % (Auto) 0.9 Baso % (Auto) 0.4 Absolute Neuts (auto) 7.6 Absolute Lymphs (auto) 0.24 L Nucleated RBC % 0 Sodium 134 L Potassium 4.0 Chloride 100 Carbon Dioxide 29.0 Anion Gap 5 BUN 26 H Creatinine 1.54 H Est GFR (MDRD) Af Amer 58 L Est GFR (MDRD) Non-Af 48 L BUN/Creatinine Ratio 16.9 Glucose 284 H Calcium 8.9 Total Bilirubin 0.60 Direct Bilirubin 0.24 AST 105 H ALT 168 H Alkaline Phosphatase 117 Total Protein 7.8 Albumin 3.6 Globulin 4.2 Lipase 21 Radiography Diagnostic Testing: Clinical Impression(s) from Imaging Studies Abdomen/Pelvis CT 04/27/23 16:42 IMPRESSION: 1. No definite acute visceral pathology in the abdomen and pelvis. 2. Fatty liver. 3. L4 compression fractures status post vertebral augmentation. No definite acute osseous abnormalities. 4. Subpleural banding bilaterally. This is most commonly due to atelectasis. Consider mild pulmonary edema or partially visualized fibrotic changes. Electronically Signed: Jakub Sarabia, at 17:23 EST , EKG Initial EKG: Attestation: I personally reviewed and interpreted this EKG as follows: Interpretation: Sinus Tachycardia (Sinus tach at 102. No acute ischemia. Right bundle branch block noted. QTc is 513.) Treatment and Re-Evaluation :: CBC was normal white count 8.5 with a hemoglobin of 13.9. 89% neutrophils are noted. Chemistry studies reveal a sodium of 134, BUN 26, creatinine 1.54. This is only slightly increased over his baseline. His glucose is 284. ALT and AST are slightly bumped at 168 and 105 respectively. This does not appear to be a chronic condition for him. Lipase is normal at 21. EKG is sinus tach with no acute ischemia. Given the patient's elevated LFTs he was sent for CT scan with IV contrast. This reveals evidence of fatty liver and L4 compression fracture with prior treatment. No acute findings noted. On repeat evaluation test results discussed with patient and family. He does feel improved and his nausea has resolved. I will give him a prescription for Reglan at home to use if needed. In regards to the patient's right wrist and hand wounds from prior dog bite. These appear to be healing well and I do not believe these are infected. I advised family he does not need to continue the antibiotic. Wound will be cleansed and antibiotic ointment placed along with a dressing prior to discharge. Discharge Plan Triage Chief Complaint: Abd Pain ED Provider: Jil Dinero Dx/Rx/DC Orders Clinical Impression: Visit for wound check, Vomiting Instructions: ED Vomiting (Adult), ED Wound Care Prescriptions: New metoclopramide HCl [Reglan] 10 mg tablet 10 mg PO Q6H PRN (Reason: nausea and vomiting) Qty: 10 0RF No Action amlodipine 10 mg tablet 10 mg PO DAILY Entresto 49-51 mg tablet 1 tab PO BID Qty: 180 3RF clopidogrel 75 mg tablet 75 mg PO DAILY Qty: 90 3RF furosemide 40 mg tablet 40 mg PO DAILY Qty: 90 3RF metoprolol tartrate 100 MG tablet 150 mg PO BID nortriptyline 10 MG capsule 30 mg PO DAILY calcium carbonate 500 MG tablet 650 mg PO BID Fish Oil 1 EACH capsule 1,000 mg PO BID cholecalciferol (vitamin D3) [Vitamin D3] 1,000 UNIT tablet 1,000 unit PO BID modafinil 200 MG tablet 200 mg PO DAILY buspirone 10 MG tablet 10 mg PO BID aspirin 81 MG tablet,chewable 81 mg PO DAILY tamsulosin 0.4 mg Capsule 0.4 mg PO DAILY pregabalin 100 mg Capsule 200 - 300 mg PO BID sertraline 150 mg Capsule 150 mg PO DAILY acetaminophen 500 mg Tablet 1,000 mg PO Q6H PRN PRN (Reason: Pain Score 1-10) Qty: 1 0RF potassium chloride [Klor-Con M20] 20 mEq Tablet,Er Particles/Crystals 20 meq PO BIDCM Qty: 60 0RF Mag 64 64 mg Tablet,Delayed Release (Dr/Ec) 128 mg PO BID Qty: 60 0RF atorvastatin 40 mg Tablet 40 mg PO DAILY Humulin R U-500 (Conc) Kwikpen 500 unit/mL (3 mL) insulin pen 85 units subcut BREAKFAST Humulin R U-500 (Conc) Kwikpen 500 unit/mL (3 mL) insulin pen 75 units subcut 1130 Humulin R U-500 (Conc) Kwikpen 500 unit/mL (3 mL) insulin pen 85 units subcut 1630 [facility] [facility] [facility] [Primary Care Provider] - 1 Week if not improving Disposition Disposition: Home, Self Care
[2023-04-27 14:17] LABS: Absolute Lymphocyte Count 0.24 X10^3/uL (0.83-4.51); Absolute Neutrophil Count 7.6 X10^3/uL (2.0-7.7); Basophil# 0.03 X10^3/uL; Basophil% 0.4 % (0-1); Eosinophil# 0.08 X10^3/uL; Eosinophils% 0.9 % (0-5); Hematocrit 41.7 % (40-54); Hemoglobin 13.9 g/dL (13.0-16.5); Lymphocyte # 0.24 X10^3/ul (0.83-4.51); Lymphocyte % 2.8 % (19-41); Mean Corp Hgb Conc 33.3 g/dL (32-36); Mean Corpuscular Hgb 29.3 pg (27.0-32.0); Mean Platelet Vol. 9.5 fl (6.2-12.0); Monocyte# 0.47 X10^3/uL; Monocyte% 5.5 % (0-10); NRBC Flagged by Analyzer 0 % (0-5); Neutrophil # 7.64 X10^3/uL (2.7-7.7); Neutrophil % 89.8 % (47-70); POSITIVE DIFFERENTIAL YES; Platelet Count 162 K/mm3 (150-450); RBC Distribution Width CV 12.3 % (11.6-14.6); RBC Distribution Width SD 39.4 fl (35.1-43.9); Red Blood Count 4.74 M/mm3 (4.6-6.2); White Blood Count 8.5 K/mm3 (4.4-11.0)
[2023-04-27 14:21] LABS: Differential Indicated SCAN CRITERIA MET
[2023-04-27] MEDS: DiphenhydrAMINE 50 MG/ML Syringe 12.5 MG IV (14:37)
[2023-04-27] MEDS: 0.9% Normal Saline (1000mL) 1,000 ML 150 ML IV (14:37)
[2023-04-27 14:38] LABS: AST(SGOT) 105 U/L (15-37); Alanine Aminotransfer ALT/SGPT 168 U/L (16-61); Albumin, Serum 3.6 g/dL (3.2-5.0); Alkaline Phosphatase 117 U/L (45-117); Anion Gap 5 (5-15); BUN 26 mg/dL (7-18); BUN/Creat Ratio 16.9 RATIO (10-20); Bilirubin, Direct 0.24 mg/dL (0.00-0.30); Calcium,Total 8.9 mg/dL (8.5-10.1); Chloride 100 mmol/L (98-107); Creatinine, Serum 1.54 mg/dL (0.70-1.30); EST Glomerular Filtration Rate 48 mL/min (>60); Est Glom Filt Rate - Afr Amer 58 mL/min (>60); Globulin 4.2 g/dL (2.2-4.2); Glucose 284 mg/dL (74-106); Lipase 21 U/L (13-75); Protein, Total 7.8 g/dL (6.4-8.2); Sodium Level 134 mmol/L (136-145)
[2023-04-27] MEDS: Metoclopramide 10 MG/2 ML Vial 5 MG IV (14:40)
--- NOTE | 2023-04-27 16:42 | CT_ITS ---
EXAM: CT ABDOMEN AND PELVIS WITH INTRAVENOUS CONTRAST CLINICAL INDICATION: vomiting, elevated LFTs TECHNIQUE: Helically acquired images were obtained of the abdomen and pelvis with intravenous contrast. This CT exam was performed using one or more of the following dose reduction techniques: automated exposure control, adjustment of the mA and/or kV according to patient size, and/or use of iterative reconstruction technique. CONTRAST: IV 100mL Isovue-370 COMPARISON: CT abdomen and pelvis, 08/17/2019; CT chest exams, 03/29 and 04/04/2021 FINDINGS: LOWER THORAX: Coronary artery calcifications and/or stents. Subpleural banding bilaterally. This is most commonly due to atelectasis. Consider mild pulmonary edema or partially visualized fibrotic changes. Small hiatal hernia. No cardiomegaly. No significant pericardial effusion. ABDOMEN: LIVER: Diffuse low-attenuation throughout the liver suggesting fatty infiltration. GALLBLADDER AND BILE DUCTS: Status post cholecystectomy. No intra- or extrahepatic biliary ductal dilation. PANCREAS: No significant abnormality. No focal cystic or solid mass. SPLEEN: No significant abnormality. Normal size without focal cystic or solid mass. ADRENALS: No significant abnormality. No nodules. KIDNEYS AND URETERS: No significant abnormality. Normal renal size and position. No hydronephrosis. STOMACH AND BOWEL: No significant abnormality. No stomach or bowel distention. No focal inflammatory change. PELVIS: APPENDIX: A normal appendix is identified in the right lower quadrant. BLADDER: No significant abnormality. REPRODUCTIVE: Borderline prostatomegaly. ABDOMEN and PELVIS: INTRAPERITONEAL SPACE: No significant abnormality. No ascites or other fluid collection. No free air. BONES/JOINTS: There are degenerative changes in the spine. L1 compression fracture similar to the 2020 CT chest examinations. L4 compression fractures status post vertebral augmentation. No definite acute osseous abnormalities. No suspicious lytic or blastic abnormality. SOFT TISSUES: Small fat-containing umbilical hernia. VASCULATURE: Atherosclerosis of the aorta and its branch vessels. LYMPH NODES: No significant abnormality. No enlarged lymph nodes. CT/Abdomen/Pelvis W IV Cont ONLY IMPRESSION: 1. No definite acute visceral pathology in the abdomen and pelvis. 2. Fatty liver. 3. L4 compression fractures status post vertebral augmentation. No definite acute osseous abnormalities. 4. Subpleural banding bilaterally. This is most commonly due to atelectasis. Consider mild pulmonary edema or partially visualized fibrotic changes. Electronically Signed: Jakub Sarabia DO at 17:23 EST ,
[2023-04-27 18:07] VITALS: BP 128/77; PULSE 72; RESP 15; O2SAT 98
== END 2023-04-27 18:09 | disposition home or self-care (01) ==
PROVIDERS: Emergency Provider Emergency Medicine; Visit Provider Emergency Medicine
DX: R53.1 Weakness (principal); E11.42 Type 2 diabetes mellitus with diabetic polyneuropathy; Z79.4 Long term (current) use of insulin; R11.2 Nausea with vomiting, unspecified; Z51.89 Encounter for other specified aftercare; Z87.891 Personal history of nicotine dependence; I25.10 Atherosclerotic heart disease of native coronary artery without angina pectoris; E78.5 Hyperlipidemia, unspecified; I10 Essential (primary) hypertension; I25.2 Old myocardial infarction; Z79.899 Other long term (current) drug therapy; G43.909 Migraine, unspecified, not intractable, without status migrainosus; F41.9 Anxiety disorder, unspecified; Z79.82 Long term (current) use of aspirin; Z79.02 Long term (current) use of antithrombotics/antiplatelets; Z90.49 Acquired absence of other specified parts of digestive tract
CPT/HCPCS: 74177; 80048; 80076; 83690; 85025; 93005; 96361; 96374; 96375; 99284; J7030; Q9967

== ENCOUNTER 2023-12-30 15:27 | Inpatient (IN) | payer OTHER, SELFPAY ==
[2023-12-30] VITALS (28 sets, daily range): BP systolic 97–141; BP diastolic 54–103; PULSE 78–87; RESP 14–21; TEMP 36.3–37.3; O2SAT 92–100; BMI 34.8; BMI 34.1
--- NOTE | 2023-12-30 16:16 | ED.VIS.STROK ---
HPI History of Present Illness Chief Complaint: Weakness Narrative Narrative: 68-year-old male presenting with initial complaint of weakness and shortness of breath. Patient states that he was at the [place] today and had his eyes dilated for some testing and then on the way home he started to get a mild headache. When he started walking to his house he states he felt like he was going to collapse. He felt like he was short of breath. He states he is typically short of breath when he walks around the house. He does not wear oxygen. He does deny chest pain. After several minutes of talking with him about his weakness he stated to me that the only other time he had this was when he had a stroke. He states that his left arm feels weaker and his left leg is weaker. [facility] Medical History Diabetic retinopathy Narcolepsy Depression Anxiety Diabetic polyneuropathy Vitamin D deficiency Migraine headache Obstructive sleep apnea Hyperlipidemia Coronary artery disease Ischemic stroke Hernia History of COVID-19 Vision loss of right eye Hearing loss, left Hearing loss, right Hypothyroidism Chronic pain Osteoporosis GERD (gastroesophageal reflux disease) GI bleed Former smoker CPAP (continuous positive airway pressure) dependence Sleep apnea Chest pain Elevated troponin Elevated lipase Myocardial infarct DM2 (diabetes mellitus, type 2) Essential (primary) hypertension Home Medications ?Medication ?Instructions ?Recorded ?Last Taken ?Type metoprolol tartrate 100 mg tablet 25 mg PO BID blood pressure 10/05/16 06/28/22 History nortriptyline 10 mg capsule 30 mg PO DAILY migraines 10/05/16 2 Days Ago History ~06/26/22 modafinil 200 mg tablet 200 mg PO DAILY narcolepsy 06/17/19 04/03/21 08:00 History aspirin 81 mg chewable tablet 81 mg PO DAILY heart health 08/17/19 06/28/22 History tamsulosin 0.4 mg capsule 0.4 mg PO DAILY urine 03/30/21 06/27/22 History pregabalin 100 mg capsule 200 - 300 mg PO BID pain 03/19/22 06/28/22 History sertraline 150 mg capsule 150 mg PO DAILY mood 03/19/22 06/28/22 History acetaminophen 500 mg tablet 1,000 mg (2 x 500 mg) PO Q6H PRN 04/16/22 Unknown Rx PRN Pain Score 1-10 #1 TAB magnesium chloride 64 mg 128 mg (2 x 64 mg) PO BID #60 tabs 04/16/22 06/28/22 Rx (magnesium chloride) tablet,delayed release (Mag 64) potassium chloride 20 mEq 20 meq PO BIDCM #60 tabs 04/16/22 06/28/22 Rx tablet,extended release(part/cryst) (Klor-Con M) amlodipine 10 mg tablet 5 mg PO DAILY 04/30/22 06/28/22 History sacubitril 49 mg-valsartan 51 mg 1 tab PO BID #180 tabs 04/30/22 06/28/22 Rx tablet (Entresto) insulin regular hum U-500 conc 500 75 units subcut 1130 06/28/22 06/27/22 History unit/mL(3 mL) subcut pen (Humulin R U-500 (Conc) Insulin Kwikpen) insulin regular hum U-500 conc 500 85 units subcut 1630 06/28/22 06/27/22 History unit/mL(3 mL) subcut pen (Humulin R U-500 (Conc) Insulin Kwikpen) insulin regular hum U-500 conc 500 85 units subcut BREAKFAST 06/28/22 06/28/22 History unit/mL(3 mL) subcut pen (Humulin R U-500 (Conc) Insulin Kwikpen) metoclopramide HCl 10 mg tablet 10 mg PO Q6H PRN nausea and 04/27/23 Unknown Rx (Reglan) vomiting #10 tabs atorvastatin 40 mg tablet (Lipitor) 40 mg PO QHS 12/30/23 Unknown History furosemide 20 mg tablet 20 mg PO DAILY 12/30/23 Unknown History sertraline 100 mg tablet 100 mg PO DAILY 12/30/23 Unknown History spironolactone 25 mg tablet 25 mg PO DAILY 12/30/23 Unknown History (Aldactone) Allergy/AdvReac Type Severity Reaction Status Date / Time No Known Allergies Allergy Verified 04/27/23 13:56 Family History Mother Diabetes Father Heart disease CVA (cerebral vascular accident) Surgical History History of hernia surgery History of cholecystectomy History of back surgery Social History household members: spouse and children housing: apartment current occupational status: disabled Smoking Status: Former smoker Tobacco: How many years used: 30 how long ago did patient quit smokin alcohol intake: never substance use type: does not use diet: diabetic caffeine: Yes Type: coffee Number of servings: 1 what type of physical activity do you participate in: walking ROS ROS ED Constitutional Constitutional ED: Denies chills, fever(s) or sweats Eyes Eyes: Denies blurry vision or change in vision ENT ENT ED: Denies ear pain or sore throat Cardiovascular Cardiovascular: Denies chest pain, palpitations or racing heartbeat Respiratory/Chest Respiratory/Chest: Reports dyspnea; Denies cough or sputum Gastrointestinal Gastrointestinal: Denies abdominal pain, constipation, diarrhea, nausea or vomiting Genitourinary Genitourinary ED: Denies dysuria, hematuria or urinary frequency Musculoskeletal Musculoskeletal: Denies arthralgias, myalgias or neck pain Integumentary Denies abscess, Abrasions or rash Neurologic Neurologic: Reports paresthesias LUE; Denies headache(s) or weakness Psychiatric Psychiatric: Denies anxiety, depression, suicidal ideation or suicidal thoughts Endocrine Endocrinology: Denies polydipsia or polyuria EXAM Physical Exam Const Vital Signs: 12/30/23 15:28 12/30/23 15:34 12/30/23 16:23 Temperature 99.1 F Temperature Source Oral Pulse Rate 87 Respiratory Rate 16 Respiratory Effort Normal Respiratory Pattern Normal Blood Pressure 109/70 Blood Pressure Mean 83 Blood Pressure Source Blood Pressure Position Blood Pressure Location Pulse Ox 93 Oxygen Delivery Method Room Air Room Air 12/30/23 16:58 12/30/23 17:04 12/30/23 17:13 Temperature Temperature Source Pulse Rate 84 82 Respiratory Rate 16 19 H Respiratory Effort Respiratory Pattern Blood Pressure 123/60 H 124/63 H 132/68 H Blood Pressure Mean 83 89 Blood Pressure Source Monitor Monitor Blood Pressure Position Supine Sitting Blood Pressure Location Left Arm Left Arm Pulse Ox 94 92 Oxygen Delivery Method Room Air Room Air 12/30/23 17:19 12/30/23 17:34 12/30/23 17:36 Temperature 98.1 F Temperature Source Pulse Rate 82 82 82 Respiratory Rate 19 H 16 17 Respiratory Effort Respiratory Pattern Blood Pressure 116/76 133/72 H Blood Pressure Mean 89 92 Blood Pressure Source Monitor Blood Pressure Position Blood Pressure Location Pulse Ox 93 94 93 Oxygen Delivery Method Room Air Room Air Positive well nourished HEENT Reports moist mucous membranes Eyes General Eye ED: Negative for pale conjunctiva Resp normal respiratory effort and clear to auscultation bilaterally Auscultation: Negative for rales, rhonchi or wheezes Cardio Rate: regular rate Rhythm: regular rhythm GI normal to inspection, nondistended, normoactive bowel sounds Extremity General Extremety ED: Negative for deformity General Extremity: Negative for deformity Neuro oriented x3 and CN's II-XII intact bilaterally Sensorium / Orientation: alert Psych mental status grossly normal Skin General Skin Exam: Negative for jaundice NIHSS NIHSS Initial: 1a Level of Consciousness: 0 1b LOC Questions (Score 2 if aphasic/stupor): 0 1c LOC Commands (Only score 1st attempt): 0 2 Best Gaze (If aphasic, use reflexive mvmts.): 0 3 Visual: 0 4 Facial Palsy: 0 5 Motor Arm Right (UN = amputation/fusion): 0 5 Motor Arm Left: 1 6 Motor Leg Right: 1 6 Motor Leg Left: 0 7 Limb ataxia (Only + if out of proportion): 1 8 Sensory (Aphasia/stupor=0 or 1, coma=2): 1 9 Best Language: 0 10 Dysarthria (mute, coma=2, intubated=UN): 0 11 Extinction and Inattention (only scored if +): 0 Total Score: 4 MDM MDM MDM Narrative Medical decision making narrative: Patient had a initially with chief complaint of dyspnea and generalized weakness. After several minutes of speaking with him he then told me that the only other time he felt this way is when he had a stroke. He does have a little bit of weakness in the left arm and left leg. He is having trouble with [id number] with the left leg. He has decreased sensation over the left leg which is chronic but he feels is worse. NIH stroke scale score 4. For this reason a stroke team was called. Last known well was [address] brain and CTA were negative. Discussed with the stroke neurologist. He recommended tenecteplase and this was given. Patient's NIH stroke scale score is now down to a 2. CBC unremarkable. Creatinine slightly elevated at 1.75. PT/INR unremarkable. High-sensitivity troponin is 22. Chest x-ray interpreted by myself shows no acute cardiopulmonary process. Radiologist interprets this and agrees. EKG sinus rhythm at 85 bpm without sign ischemic change. Discussed with hospitalist for admission. Impression: 1. acute CVA 2. Dyspnea Lab Data Attestation: I reviewed the patient's lab results. Labs: Laboratory Results - last 24 hr 12/30/23 15:15 WBC 8.4 RBC 4.89 Hgb 14.2 Hct 42.1 MCV 86.1 MCH 29.0 MCHC 33.7 RDW Std Deviation 39.2 RDW Coeff of Eben 12.6 Plt Count 191 MPV 10.9 Immature Gran % (Auto) 0.500 Neut % (Auto) 62.6 Lymph % (Auto) 23.3 [place] % (Auto) 10.7 H Eos % (Auto) 2.3 Baso % (Auto) 0.6 Absolute Neuts (auto) 5.3 Absolute Lymphs (auto) 1.96 Nucleated RBC % 0 PT 13.6 INR 1.0 APTT 23.0 L Sodium 136 Potassium 4.2 Chloride 101 Carbon Dioxide 25.0 Anion Gap 10 BUN 33 H Creatinine 1.75 H Estim Creat Clear Calc 44.87 Est GFR (MDRD) Af Amer 50 L Est GFR (MDRD) Non-Af 41 L BUN/Creatinine Ratio 18.9 Glucose 161 H Calcium 9.2 Troponin I High Sens 22 Radiography Diagnostic Testing: Clinical Impression(s) from Imaging Studies Brain CT 12/30/23 16:20 IMPRESSION: Chronic involutional changes of the brain. Electronically Signed: Sunil Ann MD at 16:33 EDT , ADDENDUM: 12/30/23 0693 IMPRESSION: Chronic involutional changes of the brain. N.B. : The above Results were Read Back by Sunil Ann MD to Carlo Santana DO, and understanding confirmed on 12/30/2023 17:12:21 (ET). Electronically Signed: Sunil Ann MD at 16:33 EDT , Head/Neck CTA 12/30/23 16:21 IMPRESSION: Normal CTA Head with contrast. Mild (40%) right carotid stenosis. Mild (20%) (left carotid stenosis. Patent vertebral arteries bilaterally. Electronically Signed: Sunil Ann MD at 17:09 EDT , ADDENDUM: 12/30/23 1719 IMPRESSION: Normal CTA Head with contrast. Mild (40%) right carotid stenosis. Mild (20%) (left carotid stenosis. Patent vertebral arteries bilaterally. N.B. : The above Results were Read Back by Sunil Ann MD to Carlo Santana DO, and understanding confirmed on 12/30/2023 17:12:15 (ET). Electronically Signed: Sunil Ann MD at 17:09 EDT , Chest X-Ray 12/30/23 17:10 IMPRESSION: Normal x-ray examination of the chest. Electronically Signed: Jose Mcbride MD at 17:39 EDT , Discharge Plan Triage Chief Complaint: Weakness ED Provider: Carlo Santana Dx/Rx/DC Orders Prescriptions: No Action amlodipine 10 mg tablet 5 mg PO DAILY Entresto 49-51 mg tablet 1 tab PO BID Qty: 180 3RF metoprolol tartrate 100 MG tablet 25 mg PO BID Patient Comments: states yes but it is not on his list nortriptyline 10 MG capsule 30 mg PO DAILY modafinil 200 MG tablet 200 mg PO DAILY aspirin 81 MG tablet,chewable 81 mg PO DAILY tamsulosin 0.4 mg Capsule 0.4 mg PO DAILY pregabalin 100 mg Capsule 200 - 300 mg PO BID Patient Comments: pt. states he takes 50 mg? sertraline 150 mg Capsule 150 mg PO DAILY acetaminophen 500 mg Tablet 1,000 mg PO Q6H PRN PRN (Reason: Pain Score 1-10) Qty: 1 0RF potassium chloride [Klor-Con M20] 20 mEq Tablet,Er Particles/Crystals 20 meq PO BIDCM Qty: 60 0RF Mag 64 64 mg Tablet,Delayed Release (Dr/Ec) 128 mg PO BID Qty: 60 0RF Humulin R U-500 (Conc) Kwikpen 500 unit/mL (3 mL) insulin pen 85 units subcut BREAKFAST Humulin R U-500 (Conc) Kwikpen 500 unit/mL (3 mL) insulin pen 75 units subcut 1130 Humulin R U-500 (Conc) Kwikpen 500 unit/mL (3 mL) insulin pen 85 units subcut 1630 metoclopramide HCl [Reglan] 10 mg tablet 10 mg PO Q6H PRN (Reason: nausea and vomiting) Qty: 10 0RF atorvastatin [Lipitor] 40 mg tablet 40 mg PO QHS furosemide 20 mg tablet 20 mg PO DAILY spironolactone [Aldactone] 25 mg tablet 25 mg PO DAILY sertraline 100 mg tablet 100 mg PO DAILY [facility] [Primary Care Provider] - Print Language: Chinese
--- NOTE | 2023-12-30 16:18 | EKG12_ITS ---
Test Reason : POSS STROKE Blood Pressure : / mmHG Vent. Rate : 083 BPM Atrial Rate : 083 BPM P-R Int : 196 ms QRS Dur : 146 ms QT Int : 426 ms P-R-T Axes : 048 -38 020 degrees QTc Int : 500 ms Sinus rhythm with Fusion complexes Left axis deviation Right bundle branch block Inferior infarct , age undetermined Abnormal ECG Confirmed by VIRGILIO FERREIRA, MATTEO ([id number]), material expeditor GENARO JIMENEZ ([id number]) on 01/01/2024 10:37:34 A M Referred By: Confirmed By:LUNA POOLE MD
--- NOTE | 2023-12-30 16:20 | CT_ITS ---
We are attempting to reach an attending provider to discuss findings. An addendum with communication details will be sent when the communication is complete. STUDY: CT BRAIN WITHOUT CONTRAST REASON FOR EXAM: Male, 68 years old. Neuro deficit, acute, stroke suspected RADIATION DOSAGE (If Supplied By Facility): CTDIvol = ( ) mGy, DLP = ( ) mGycm TECHNIQUE: Transaxial CT imaging of the brain was performed without administration of intravenous contrast material. Individualized dose optimization techniques were used for this CT. COMPARISON: 01/18/2023 FINDINGS: Normal soft tissue structures. Normal calvarium. There is mild cerebral atrophy with widening of the extra-axial spaces and ventricular dilatation. There are areas of decreased attenuation within the white matter tracts of the supratentorial brain, consistent with microvascular disease changes. Normal basal ganglia and thalami. Normal brainstem. Normal cerebellum. There is no intracranial hemorrhage. There are no findings of an acute ischemic infarction. Normal visualized paranasal sinuses. CT/STROKE Brain/Head without Cont IMPRESSION: Chronic involutional changes of the brain. Electronically Signed: Sunil Ann MD at 16:33 EDT ,
--- NOTE | 2023-12-30 16:21 | CT_ITS ---
We are attempting to reach an attending provider to discuss findings. An addendum with communication details will be sent when the communication is complete. STUDY: CTA HEAD AND NECK WITH CONTRAST REASON FOR EXAM: Male, 68 years old. Neuro deficit, acute, stroke suspected RADIATION DOSAGE (If Supplied By Facility): CTDIvol = ( 18.85 ) mGy, DLP = ( 800.86 ) mGycm TECHNIQUE: CT angiography was performed with a multi-detector CT scanner. Data acquisition was obtained from the skull base through the vertex following intravenous administration of IV 100mL Isovue-370. MIP images were reconstructed from the axial data set. Post-processing of the angiographic images was performed, with multiplanar reformation and 3D reconstruction. Individualized dose optimization techniques were used for this CT. COMPARISON: No relevant priors. FINDINGS: Normal bilateral petrous carotid arteries. There is calcified plaque formation of the right cavernous carotid artery, without a cross-sectional luminal stenosis. There is calcified plaque formation of the left cavernous carotid artery, without a cross-sectional luminal stenosis. Normal right A1 segments of the anterior cerebral artery. Normal left A1 segments of the anterior cerebral artery. Normal intact anterior communicating artery (ACOM). Normal bilateral A2 segments of the anterior cerebral arteries. Normal right M1 and M2 segments of the middle cerebral arteries, with a normal M1 bifurcation. Normal left M1 and M2 segments of the middle cerebral arteries, with a normal M1 bifurcation. Normal right posterior communicating artery (PCOM). Normal left posterior communicating artery (PCOM). Normal bilateral vertebral arteries. Normal basilar artery with a normal basilar bifurcation. The visualized bilateral superior cerebellar (SCA) arteries are normal. Normal bilateral P1, P2 and visualized P3 segments of the posterior cerebral arteries. There is no demonstrated aneurysm of the [place]. There is no demonstrated abnormality of the visualized brain. AORTIC ARCH: Normal visualized aortic arch. Normal origins of the brachiocephalic, left common carotid, and left subclavian arteries. RIGHT CAROTID ARTERIES: Normal right common carotid artery (CCA). There is mild atherosclerotic plaque formation with minimal narrowing of the right carotid bulb. There is mild atherosclerotic plaque formation of the origin of the right internal carotid artery with less than 50% cross sectional diameter stenosis. Normal visualized cervical portion of the right internal carotid artery. Normal origin of the right external carotid artery (ECA). LEFT CAROTID ARTERIES: Thin calcified plaque in the left common carotid artery. There is mild atherosclerotic plaque formation with minimal narrowing of the left carotid bulb. There is mild atherosclerotic plaque formation of the origin of the left internal carotid artery with less than 50% cross sectional diameter stenosis. Normal visualized cervical portion of the left internal carotid artery. Normal origin of the left external carotid artery (ECA). VERTEBRAL ARTERIES: Normal bilateral vertebral arteries. CT/STROKE CTA Head AND Neck W/Con IMPRESSION: Normal CTA Head with contrast. Mild (40%) right carotid stenosis. Mild (20%) (left carotid stenosis. Patent vertebral arteries bilaterally. Electronically Signed: Sunil Ann MD at 17:09 EDT ,
[2023-12-30 16:32] LABS: Absolute Lymphocyte Count 1.96 X10^3/uL (0.83-4.51); Absolute Neutrophil Count 5.3 X10^3/uL (2.0-7.7); Basophil# 0.05 X10^3/uL; Basophil% 0.6 % (0-1); Eosinophil# 0.19 X10^3/uL; Eosinophils% 2.3 % (0-5); Hematocrit 42.1 % (40-54); Hemoglobin 14.2 g/dL (13.0-16.5); Lymphocyte # 1.96 X10^3/ul (0.83-4.51); Lymphocyte % 23.3 % (19-41); Mean Corp Hgb Conc 33.7 g/dL (32-36); Mean Corpuscular Volume 86.1 fL (80-94); Mean Platelet Vol. 10.9 fl (6.2-12.0); Monocyte% 10.7 % (0-10); NRBC Flagged by Analyzer 0 % (0-5); Neutrophil # 5.28 X10^3/uL (2.7-7.7); Neutrophil % 62.6 % (47-70); Platelet Count 191 K/mm3 (150-450); RBC Distribution Width CV 12.6 % (11.6-14.6); RBC Distribution Width SD 39.2 fl (35.1-43.9); Red Blood Count 4.89 M/mm3 (4.6-6.2); White Blood Count 8.4 K/mm3 (4.4-11.0)
[2023-12-30 16:51] LABS: Prothrombin Time (Protime)PT. 13.6 SECONDS (11.7-14.9)
[2023-12-30 16:54] LABS: Anion Gap 10 (5-15); BUN 33 mg/dL (7-18); BUN/Creat Ratio 18.9 RATIO (10-20); Calcium,Total 9.2 mg/dL (8.5-10.1); Chloride 101 mmol/L (98-107); Creatinine, Serum 1.75 mg/dL (0.70-1.30); EST Glomerular Filtration Rate 41 mL/min (>60); Est Glom Filt Rate - Afr Amer 50 mL/min (>60); Estimated Creatinine Clearance 44.87 ml/min; Glucose 161 mg/dL (74-106); Potassium 4.2 mmol/L (3.5-5.1); Sodium Level 136 mmol/L (136-145); Troponin-I HS 22 pg/mL (3.0-78.0)
[2023-12-30] MEDS: 0.9% Saline Lock 10 ML Syringe IV ×2 (16:57→16:59)
[2023-12-30] MEDS: TENECTEPLASE 3528 MG IV (16:58)
--- NOTE | 2023-12-30 17:10 | RAD_ITS ---
STUDY: X-RAY CHEST REASON FOR EXAM: Male, 68 years old. Neuro deficit, acute, stroke suspected TECHNIQUE: Single AP portable view of the chest. COMPARISON: 01/18/2023. FINDINGS: The lungs are clear and expanded. There is no demonstrated pleural abnormality. Normal size heart. Normal mediastinum and orin. Normal visualized pulmonary arteries. Normal visualized aortic arch and descending thoracic aorta. Normal visualized thoracic spine. Normal visualized ribs, clavicles, and shoulders. There is no demonstrated abnormality of the visualized soft tissue structures of the upper abdomen. RAD/Chest 1 View IMPRESSION: Normal x-ray examination of the chest. Electronically Signed: Jose Mcbride MD at 17:39 EDT ,
[2023-12-30] MEDS: 0.9% Normal Saline (1000mL) 1,000 ML 100 ML IV (17:19)
--- NOTE | 2023-12-30 17:48 | HP.PCM.HOS_ITS ---
HPI - General General Date of Admission: 12/30/23 Date of Service: 12/30/23 Chief Complaint: Left-sided weakness HPI Narrative OPAL CRUZ, is a 68 M who presented to the emergency department at [facility] on 12/30/2023 with a chief complaint of weakness and shortness of breath. Patient was at the [facility] today and had his eyes dilated for some testing and then on the way home he started to get a mild headache and while he was walking into the house he felt like he was going to collapse due to left- sided weakness. He reported he typically has some mild shortness of breath when he walks and does not wear oxygen at baseline. When the patient was asked by the emergency department physician if he never had anything previously like this he stated he had symptoms like this when he had previous stroke. He did complain that his left arm feels weaker and his left leg felt weaker than his baseline. He does have left-sided residual deficits from previous stroke. Stroke team was then called the emergency department and workup was pursued. He did indicate that he is currently being treated for lower extremity cellulitis and is on Augmentin. He was on a 7-day course with the last day being on the . He states that his legs are better but not completely back to his baseline. Vital signs on presentation showed temperature of 99.1, heart rate 87, respiratory rate 16, blood pressure is 109/70 and oxygen saturations were 93 to 94% on room air. His CBC was unremarkable. Chemistry panel showed CKD stage IIIb with relatively stable serum creatinine at 1.75 (baseline appears to be between 1.45 and 1.6). Blood glucose was 161. Troponin was 22. Coags were normal. CT of the brain showed chronic emotional changes with no acute changes. CTA of the head and neck show mild 40% right carotid stenosis and mild 20% left carotid artery stenosis with patent vertebral arteries bilaterally and no LVO. Chest x-ray is unremarkable. EKG showed normal sinus rhythm with a incomplete right bundle branch block and no ST-T wave changes concerning for acute ischemia. Stroke team was activated emergency department and neurology saw the patient from [facility] in the emergency department and recommended tenecteplase be given. At the time of tenecteplase dosing his NIH was 3. Current NIH is 2. [facility] Medical History (Updated 12/30/23 @ 18:[address] Sofia Treadwell, DO) Right pontine stroke Diabetic retinopathy Narcolepsy Depression Anxiety Diabetic polyneuropathy Vitamin D deficiency Migraine headache Obstructive sleep apnea Hyperlipidemia Coronary artery disease Ischemic stroke Hernia History of COVID-19 Vision loss of right eye Hearing loss, left Hearing loss, right Hypothyroidism Chronic pain Osteoporosis GERD (gastroesophageal reflux disease) GI bleed Former smoker CPAP (continuous positive airway pressure) dependence Sleep apnea Chest pain Elevated troponin Elevated lipase Myocardial infarct DM2 (diabetes mellitus, type 2) Essential (primary) hypertension Home Medications ?Medication ?Instructions ?Recorded ?Last Taken ?Type metoprolol tartrate 100 mg tablet 25 mg PO BID blood pressure 10/05/16 06/28/22 History nortriptyline 10 mg capsule 30 mg PO DAILY migraines 10/05/16 2 Days Ago History ~06/26/22 modafinil 200 mg tablet 200 mg PO DAILY narcolepsy 06/17/19 04/03/21 08:00 History aspirin 81 mg chewable tablet 81 mg PO DAILY heart health 08/17/19 06/28/22 History tamsulosin 0.4 mg capsule 0.4 mg PO DAILY urine 03/30/21 06/27/22 History pregabalin 100 mg capsule 200 - 300 mg PO BID pain 03/19/22 06/28/22 History sertraline 150 mg capsule 150 mg PO DAILY mood 03/19/22 06/28/22 History acetaminophen 500 mg tablet 1,000 mg (2 x 500 mg) PO Q6H PRN 04/16/22 Unknown Rx PRN Pain Score 1-10 #1 TAB magnesium chloride 64 mg 128 mg (2 x 64 mg) PO BID #60 tabs 04/16/22 06/28/22 Rx (magnesium chloride) tablet,delayed release (Mag 64) amlodipine 10 mg tablet 5 mg PO DAILY 04/30/22 06/28/22 History sacubitril 49 mg-valsartan 51 mg 1 tab PO BID #180 tabs 04/30/22 06/28/22 Rx tablet (Entresto) insulin regular hum U-500 conc 500 75 units subcut 1130 06/28/22 06/27/22 History unit/mL(3 mL) subcut pen (Humulin R U-500 (Conc) Insulin Kwikpen) insulin regular hum U-500 conc 500 85 units subcut 1630 06/28/22 06/27/22 History unit/mL(3 mL) subcut pen (Humulin R U-500 (Conc) Insulin Kwikpen) insulin regular hum U-500 conc 500 85 units subcut BREAKFAST 06/28/22 06/28/22 History unit/mL(3 mL) subcut pen (Humulin R U-500 (Conc) Insulin Kwikpen) metoclopramide HCl 10 mg tablet 10 mg PO Q6H PRN nausea and 04/27/23 Unknown Rx (Reglan) vomiting #10 tabs amoxicillin 875 mg-potassium 1 tab PO BID 12/30/23 Unknown History clavulanate 125 mg tablet atorvastatin 40 mg tablet (Lipitor) 40 mg PO QHS 12/30/23 Unknown History furosemide 20 mg tablet 20 mg PO DAILY 12/30/23 Unknown History sertraline 100 mg tablet 100 mg PO DAILY 12/30/23 Unknown History spironolactone 25 mg tablet 25 mg PO DAILY 12/30/23 Unknown History (Aldactone) Allergy/AdvReac Type Severity Reaction Status Date / Time No Known Allergies Allergy Verified 04/27/23 13:56 Family History Mother Diabetes Father Heart disease CVA (cerebral vascular accident) Surgical History History of hernia surgery History of cholecystectomy History of back surgery Social History household members: spouse and children housing: apartment current occupational status: disabled Smoking Status: Former smoker Tobacco: How many years used: 30 how long ago did patient quit smokin alcohol intake: never substance use type: does not use diet: diabetic caffeine: Yes Type: coffee Number of servings: 1 what type of physical activity do you participate in: walking ROS Constitutional Constitutional: Reports weakness; Denies anorexia, change in weight, chills, fatigue, fever(s), malaise, night sweats or other Eyes Eyes: Denies blurry vision, change in eye color, change in vision, discharge from eye(s), double vision, erythema, eye pain, loss of vision or other ENT HEENT: Denies abnormal hearing, dysphagia, ear pain, epistaxis, headache(s), hearing loss, nasal congestion, nasal discharge, post nasal drip, sinus pressure, sore throat or other Cardiovascular Cardiovascular: Reports dyspnea on exertion and edema; Denies chest pain, claudication, lightheadedness, orthopnea, palpitations, paroxysmal nocturnal dyspnea, rapid heart rate, syncope or other Respiratory/Chest Respiratory/Chest: Reports shortness of breath with exertion; Denies cough, dyspnea, excessive phlegm production, hemoptysis, productive cough, shortness of breath at rest, wheezing or other Gastrointestinal Gastrointestinal: Denies abdominal pain, coffee ground emesis, constipation, diarrhea, dyspepsia, hematemesis, hematochezia, loose stools, melena, nausea, vomiting or other Genitourinary Genitourinary: Denies burning urination, difficulty urinating, dysuria, hematuria, nocturia, urinary frequency, urinary hesitancy, urinary incontinence, urinary urgency or other Musculoskeletal Musculoskeletal: Reports joint pain and joint stiffness Neurologic Neurologic: Reports abnormal gait, focal weakness and numbness; Denies abnormal speech, confusion, disequilibrium, dizziness, headache(s), paresthesias, seizure-like activity, seizures, syncope, tingling, tremor(s) or other Psychiatric Psychiatric: Reports anxiety and depression; Denies homicidal ideation, suicidal ideation or other Endocrine Endocrinology: Denies change in body appearance, cold intolerance, excessive sweating, heat intolerance, polydipsia, polyuria or other Hematologic/Lymphatic Hematologic/Lymphatic: Denies anemia, easy bleeding, easy bruising, lymphadenopathy or other Allergic/Immunologic Allergic/Immunologic: Denies rhinitis, hives, eczemia, asthma or other Vital Signs Vital Signs Vital Signs: 12/30/23 15:28 12/30/23 15:34 12/30/23 16:23 Temperature 99.1 F Temperature Source Oral Pulse Rate 87 Respiratory Rate 16 Respiratory Effort Normal Respiratory Pattern Normal Blood Pressure 109/70 Blood Pressure Mean 83 Blood Pressure Source Blood Pressure Position Blood Pressure Location Pulse Ox 93 Oxygen Delivery Method Room Air Room Air 12/30/23 16:58 12/30/23 17:04 12/30/23 17:13 Temperature Temperature Source Pulse Rate 84 82 Respiratory Rate 16 19 H Respiratory Effort Respiratory Pattern Blood Pressure 123/60 H 124/63 H 132/68 H Blood Pressure Mean 83 89 Blood Pressure Source Monitor Monitor Blood Pressure Position Supine Sitting Blood Pressure Location Left Arm Left Arm Pulse Ox 94 92 Oxygen Delivery Method Room Air Room Air 12/30/23 17:19 12/30/23 17:34 12/30/23 17:36 Temperature 98.1 F Temperature Source Pulse Rate 82 82 82 Respiratory Rate 19 H 16 17 Respiratory Effort Respiratory Pattern Blood Pressure 116/76 133/72 H Blood Pressure Mean 89 92 Blood Pressure Source Monitor Blood Pressure Position Blood Pressure Location Pulse Ox 93 94 93 Oxygen Delivery Method Room Air Room Air Weight Weight: 97.9 kg Body Mass Index (BMI) 34.8 Physical Exam Const alert, oriented x3, no apparent distress and well nourished; Negative for average body habitus or healthy appearing Constitutional Narrative: Obese, upper middle-aged, white male, sitting up in bed, appears much older than stated age and appears chronically ill, spouse at bedside, appears comfortable currently, does not appear toxic General Appearance: cooperative HEENT normocephalic, head/scalp atraumatic, hearing grossly normal bilaterally and moist oral mucous membranes HEENT Narrative: Dentition is poor, Mallampati is 3, no thrush Eyes PERRL, EOMs intact bilaterally and conjunctivae normal Eyes Narrative: No scleral icterus Neck no lymphadenopathy and supple Neck Narrative: Neck is short and thick, trachea is midline Resp normal respiratory effort, no retractions, no use of accessory muscles and clear to auscultation bilaterally Auscultation: Negative for rales, rhonchi or wheezes Cardio regular rate, regular rhythm, S1 normal heart sound, S2 normal heart sound, no murmurs, no rub, no gallops and no clicks GI normal to inspection, nondistended, normoactive bowel sounds, soft to palpation and non-tender GI Narrative: Large protuberant abdomen Extremity Extremity Narrative: Trace bilateral lower extremity edema noted, no clubbing or cyanosis, radial pulses are 2+, lower extremity pulses are 1+ bilaterally Skin No no rashes or lesions noted, No no wounds, skin turgor normal, no jaundice and no mottling Skin Narrative: Lower extremity wounds with surrounding erythema however appear to be healing, no significant drainage, mild eschar noted but all wounds appear to be superficial, decreased sensation distal bilateral lower extremities to mid distal leg Neuro oriented x3, CN's II-XII intact bilaterally, moves all extremities and No no focal motor deficits Neuro Narrative: Left-sided weakness lower extremity greater than upper, bilateral lower extremity paresthesias noted left slightly greater than right Speech: speech normal Psych affect normal Psych Narrative: Very pleasant, eye contact is good and patient interacts appropriately Results Lab / Micro Data 12/30/23 15:15 12/30/23 15:15 Labs: Laboratory Results - last 24 hr 12/30/23 15:15: WBC 8.4, RBC 4.89, Hgb 14.2, Hct 42.1, MCV 86.1, MCH 29.0, MCHC 33.7, RDW Std Deviation 39.2, RDW Coeff of Eben 12.6, Plt Count 191, MPV 10.9, Immature Gran % (Auto) 0.500, Neut % (Auto) 62.6, Lymph % (Auto) 23.3, [place] % (Auto) 10.7 H, Eos % (Auto) 2.3, Baso % (Auto) 0.6, Absolute Neuts (auto) 5.3, Absolute Lymphs (auto) 1.96, Nucleated RBC % 0, PT 13.6, INR 1.0, APTT 23.0 L, Sodium 136, Potassium 4.2, Chloride 101, Carbon Dioxide 25.0, Anion Gap 10, BUN 33 H, Creatinine 1.75 H, Estim Creat Clear Calc 44.87, Est GFR (MDRD) Af Amer 50 L, Est GFR (MDRD) Non-Af 41 L, BUN/Creatinine Ratio 18.9, Glucose 161 H, Calcium 9.2, Troponin I High Sens 22 Imaging Radiology Impression Brain CT 12/30/23 16:20 IMPRESSION: Chronic involutional changes of the brain. Electronically Signed: Sunil Ann MD at 16:33 EDT , ADDENDUM: 12/30/23 2619 IMPRESSION: Chronic involutional changes of the brain. N.B. : The above Results were Read Back by Sunil Ann MD to Carlo Santana DO, and understanding confirmed on 12/30/2023 17:12:21 (ET). Electronically Signed: Sunil Ann MD at 16:33 EDT , Head/Neck CTA 12/30/23 16:21 IMPRESSION: Normal CTA Head with contrast. Mild (40%) right carotid stenosis. Mild (20%) (left carotid stenosis. Patent vertebral arteries bilaterally. Electronically Signed: Sunil Ann MD at 17:09 EDT , ADDENDUM: 12/30/23 1719 IMPRESSION: Normal CTA Head with contrast. Mild (40%) right carotid stenosis. Mild (20%) (left carotid stenosis. Patent vertebral arteries bilaterally. N.B. : The above Results were Read Back by Sunil Ann MD to Carlo Santana DO, and understanding confirmed on 12/30/2023 17:12:15 (ET). Electronically Signed: Sunil Ann MD at 17:09 EDT , Chest X-Ray 12/30/23 17:10 IMPRESSION: Normal x-ray examination of the chest. Electronically Signed: Jose Mcbride MD at 17:39 EDT , Assessment & Plan Assessment/Plan (1) Debility: (2) Left-sided weakness: PLAN: Plan Left-sided weakness -Status post tenecteplase at 1648 on 12/30/2023 -NIH 3 with tenecteplase given and follow-up is to currently -Hold home antihypertensives and allow for some permissive hypertension with PRNs available per stroke protocol -NIH per stroke protocol -Check lipids -check hemoglobin A1c -Continue statin but increase dose from 40 mg to 80 mg -Hold aspirin until 24 hours out from tenecteplase dosing and no signs of hemorrhagic transformation on MRI -MRI tomorrow afternoon -Check echocardiogram with bubble study -PT/OT/speech therapy consultation -Bed rest per protocol Left lower extremity cellulitis -Consult wound care -Patient is currently on a course of Augmentin and states he is clinically improving -Will continue Augmentin for another 8 days to complete a 14-day course History of stroke -Previous stroke appears to be pontine -Had left-sided weakness including left facial weakness at that time -Patient indicates current weakness is worse -Treatment as above CAD/essential HTN/HPL/cardiomyopathy-chronic HFrEF -Allowing for permissive hypertension so we will hold most of his hypertensives today and reinitiate as appropriate -Continue home Lasix -Continue home statin but increase dose to 80 mg and check lipid profile -Hold home Aldactone DM-2 -Patient is on U-500 insulin -Will continue home dosing -Cardiac/carb controlled diet once passes bedside swallow -SSI as ordered -Accu-Cheks as ordered -Check hemoglobin A1c CKD stage IIIb -Baseline serum creatinine appears to run between 1.4 and 1.7 -Currently 1.75 -Continue to monitor and repeat in a.m. Diabetic neuropathy -Hold home gabapentin until we can clarify his home dosing as it is written for range currently Narcolepsy -Continue home modafinil Depression -Awaiting confirmation for sertraline and will restart once confirmed BPH with obstruction -Continue home Flomax Migraine headaches -Continue home nortriptyline SEBASTIAN -Continue home CPAP - to bring in home unit Obesity -BMI 34.8 -Recommend weight loss -Complicates treatment, prognosis, outcomes History of tobacco abuse -Remote -Encourage ongoing cessation DVT prophylaxis -SCDs -Chemoprophylaxis contraindicated due to tenecteplase dosing CODE STATUS -Full code as verified at admission Charges/Coding Visit Charges Inpatient E&M: 80011 Init Hosp L2
[2023-12-30 18:19] LABS: Cholesterol 133 mg/dL (200); High Density Lipoprotein 47 mg/dL; Triglycerides 280 mg/dL; Very Low Density Lipoprotein 56 mg/dL (5-40)
--- NOTE | 2023-12-30 19:06 | ECHOD_ITS ---
Reason For Study: TIA/CVA Procedure This was a 2D Doppler, Color Flow transthoracic echocardiogram. Exam performed portable in ICU/CCU. Left Ventricle Normal LV size. The estimated ejection fraction is 65 %. No evidence for diastolic dysfunction. No regional wall motion abnormalities noted. Right Ventricle Normal RV size. Normal systolic function. Atria Normal left atrium. Normal right atrium. No doppler evidence for ASD. Mitral Valve There is no mitral valve stenosis. No mitral valve insufficiency. Tricuspid Valve There is no tricuspid stenosis. No tricuspid valve insufficiency. Aortic Valve Trisinus/trileaflet aortic valve. There is no aortic stenosis. No aortic valve insufficiency. Pulmonic Valve There is no pulmonic valvular stenosis. No pulmonic valve insufficiency. Great Vessels Normal aortic root. Pericardium/Pleural No pericardial effusion. Medication Negative bubble on previous echo. MMode/2D Measurements & Calculations LVIDd: 4.0 cm IVSd: 1.2 cm LVOT diam: 2.1 cm LVIDs: 1.7 cm LVPWd: 1.2 cm RVDd: 3.1 cm FS: 56.4 % LVOT area: 3.4 cm2 Ao root diam: 3.2 cm LAV(MOD-bp): 26.6 ml LVAd ap4: 23.1 cm2 LAV(MOD-bp) Indexed: 13.0 ml/m2 LVLd ap4: 7.7 cm LAV(MOD-sp2): 30.1 ml EDV(MOD-sp4): 58.1 ml LAV(MOD-sp4): 20.5 ml EDV(sp4-el): 58.8 ml LVAs ap4: 14.5 cm2 LVLs ap4: 7.0 cm ESV(MOD-sp4): 25.7 ml ESV(sp4-el): 25.3 ml EF(MOD-sp4): 55.8 % EF(sp4-el): 56.9 % LVAd ap2: 22.9 cm2 SV(MOD-sp4): 32.4 ml SV(MOD-sp2): 31.0 ml LVLd ap2: 8.4 cm EDV(MOD-sp2): 54.8 ml EDV(sp2-el): 53.1 ml LVAs ap2: 13.3 cm2 LVLs ap2: 7.2 cm ESV(MOD-sp2): 23.7 ml ESV(sp2-el): 20.9 ml EF(MOD-sp2): 56.7 % SV(sp4-el): 33.4 ml LA dimension(2D): 3.7 cm LA A4 area: 10.4 cm2 RA A4 area: 9.8 cm2 TAPSE: 1.6 cm Time Measurements MV dec time: 0.22 sec Doppler Measurements & Calculations MV E max eric: 60.0 cm/sec Lat Peak E' Eric: 7.5 cm/sec Med Peak E' Eric: 4.6 cm/sec MV A max eric: 88.2 cm/sec E/E' lat: 8.0 E/E' med: 13.0 MV E/A: 0.68 Ao V2 max: 118.5 cm/sec LV V1 max: 104.3 cm/sec MV dec slope: 271.9 cm/sec2 Ao max P.6 mmHg LV V1 max P.4 mmHg Ao V2 mean: 88.4 cm/sec LV V1 mean P.1 mmHg Ao mean P.4 mmHg LV V1 mean: 66.6 cm/sec Ao V2 VTI: 22.6 cm LV V1 VTI: 19.0 cm AV (velocity ratio): 0.84 ROSA(I,D): 2.9 cm2 ROSA(V,D): 3.0 cm2 SV(LVOT): 65.3 ml PA V2 max: 100.1 cm/sec PA max PG (full): 0.81 mmHg ECHO/Echo Complete Interpretation Summary The estimated ejection fraction is 65 %. No evidence for diastolic dysfunction. Ordering Physician: Sofia Treadwell Referring Physician: [facility] Performed By: Veronica Palomo RDCS and Student
[2023-12-30 20:47] LABS: Hemoglobin A1c 10.3 % (3.8-5.6)
[2023-12-30] MEDS: Atorvastatin Calcium 80 MG Tablet PO (22:04)
[2023-12-30] MEDS: Amox/Clavulanate 875 MG Tablet PO (22:04)
[2023-12-30 22:37] LABS: Bedside Glucose 229 mg/dL (74-106)
[2023-12-31] VITALS (34 sets, daily range): BP systolic 103–179; BP diastolic 64–103; PULSE 78–103; RESP 12–23; TEMP 36.3–36.8; O2SAT 93–100; BMI 34.1
[2023-12-31 05:08] LABS: Absolute Lymphocyte Count 0.94 X10^3/uL (0.83-4.51); Absolute Neutrophil Count 7.2 X10^3/uL (2.0-7.7); Basophil# 0.03 X10^3/uL; Basophil% 0.3 % (0-1); Eosinophil# 0.11 X10^3/uL; Eosinophils% 1.2 % (0-5); Hematocrit 43.7 % (40-54); Hemoglobin 14.5 g/dL (13.0-16.5); Lymphocyte # 0.94 X10^3/ul (0.83-4.51); Lymphocyte % 10.5 % (19-41); Mean Corp Hgb Conc 33.2 g/dL (32-36); Mean Corpuscular Hgb 29.1 pg (27.0-32.0); Mean Corpuscular Volume 87.8 fL (80-94); Mean Platelet Vol. 10.4 fl (6.2-12.0); Monocyte# 0.64 X10^3/uL; Monocyte% 7.1 % (0-10); NRBC Flagged by Analyzer 0 % (0-5); Neutrophil # 7.23 X10^3/uL (2.7-7.7); Neutrophil % 80.5 % (47-70); Platelet Count 142 K/mm3 (150-450); RBC Distribution Width CV 12.9 % (11.6-14.6); RBC Distribution Width SD 41.2 fl (35.1-43.9); Red Blood Count 4.98 M/mm3 (4.6-6.2)
[2023-12-31 05:32] LABS: ALB/GLOB Ratio 0.8 RATIO (0.9-2.4); AST(SGOT) 55 U/L (15-37); Alanine Aminotransfer ALT/SGPT 89 U/L (16-61); Albumin, Serum 3.4 g/dL (3.2-5.0); Alkaline Phosphatase 126 U/L (45-117); Anion Gap 6 (5-15); BUN 28 mg/dL (7-18); BUN/Creat Ratio 19.4 RATIO (10-20); Calcium,Total 8.7 mg/dL (8.5-10.1); Chloride 101 mmol/L (98-107); Creatinine, Serum 1.44 mg/dL (0.70-1.30); EST Glomerular Filtration Rate 52 mL/min (>60); Est Glom Filt Rate - Afr Amer 63 mL/min (>60); Globulin 4.4 g/dL (2.2-4.2); Glucose 250 mg/dL (74-106); Magnesium 2.3 mg/dL (1.6-2.6); Phosphorus 3.5 mg/dL (2.5-4.9); Potassium 5.4 mmol/L (3.5-5.1); Protein, Total 7.8 g/dL (6.4-8.2); Sodium Level 135 mmol/L (136-145)
--- NOTE | 2023-12-31 06:37 | PCMCONS.TICU ---
HPI Consult Data Date of Consult: 12/31/23 HPI Narrative Reason for Consultation: Stroke HPI Narrative: OPAL CRUZ, is a 68 M SEBASTIAN on CPAP, CVA with residual weakness on left, DM, CKD, CAD, HTN, Hypothyroid, GERD, h/o GI bleed, HLD, Depression and Anxiety presented for worsening left sided weakness. Patient had been to his eye appointment on 12/29 at [facility] and after returning home at around 2:30PM he started noticing worsening of his left sided weakness causing him to ambulate with difficult. Patient denies fever, chills, nausea, vomiting, headache, diaphoresis. Patient did have dizziness associated with the above symptoms. Patient LKN 2:30PM and received TNK at round 4:50PM. Patient had no bleeding on CT head. [facility] Medical History (Updated 12/30/23 @ 18:[address] Sofia Treadwell, DO) Right pontine stroke Diabetic retinopathy Narcolepsy Depression Anxiety Diabetic polyneuropathy Vitamin D deficiency Migraine headache Obstructive sleep apnea Hyperlipidemia Coronary artery disease Ischemic stroke Hernia History of COVID-19 Vision loss of right eye Hearing loss, left Hearing loss, right Hypothyroidism Chronic pain Osteoporosis GERD (gastroesophageal reflux disease) GI bleed Former smoker CPAP (continuous positive airway pressure) dependence Sleep apnea Chest pain Elevated troponin Elevated lipase Myocardial infarct DM2 (diabetes mellitus, type 2) Essential (primary) hypertension Home Medications ?Medication ?Instructions ?Recorded ?Last Taken ?Type metoprolol tartrate 100 mg tablet 25 mg PO BID blood pressure 10/05/16 06/28/22 History nortriptyline 10 mg capsule 30 mg PO DAILY migraines 10/05/16 2 Days Ago History ~06/26/22 modafinil 200 mg tablet 200 mg PO DAILY narcolepsy 06/17/19 04/03/21 08:00 History aspirin 81 mg chewable tablet 81 mg PO DAILY heart health 08/17/19 06/28/22 History tamsulosin 0.4 mg capsule 0.4 mg PO DAILY urine 03/30/21 06/27/22 History pregabalin 100 mg capsule 200 - 300 mg PO BID pain 03/19/22 06/28/22 History sertraline 150 mg capsule 150 mg PO DAILY mood 03/19/22 06/28/22 History acetaminophen 500 mg tablet 1,000 mg (2 x 500 mg) PO Q6H PRN 04/16/22 Unknown Rx PRN Pain Score 1-10 #1 TAB magnesium chloride 64 mg 128 mg (2 x 64 mg) PO BID #60 tabs 04/16/22 06/28/22 Rx (magnesium chloride) tablet,delayed release (Mag 64) amlodipine 10 mg tablet 5 mg PO DAILY 04/30/22 06/28/22 History sacubitril 49 mg-valsartan 51 mg 1 tab PO BID #180 tabs 04/30/22 06/28/22 Rx tablet (Entresto) insulin regular hum U-500 conc 500 75 units subcut 1130 06/28/22 06/27/22 History unit/mL(3 mL) subcut pen (Humulin R U-500 (Conc) Insulin Kwikpen) insulin regular hum U-500 conc 500 85 units subcut 1630 06/28/22 06/27/22 History unit/mL(3 mL) subcut pen (Humulin R U-500 (Conc) Insulin Kwikpen) insulin regular hum U-500 conc 500 85 units subcut BREAKFAST 06/28/22 06/28/22 History unit/mL(3 mL) subcut pen (Humulin R U-500 (Conc) Insulin Kwikpen) metoclopramide HCl 10 mg tablet 10 mg PO Q6H PRN nausea and 04/27/23 Unknown Rx (Reglan) vomiting #10 tabs amoxicillin 875 mg-potassium 1 tab PO BID 12/30/23 Unknown History clavulanate 125 mg tablet atorvastatin 40 mg tablet (Lipitor) 40 mg PO QHS 12/30/23 Unknown History furosemide 20 mg tablet 20 mg PO DAILY 12/30/23 Unknown History sertraline 100 mg tablet 100 mg PO DAILY 12/30/23 Unknown History spironolactone 25 mg tablet 25 mg PO DAILY 12/30/23 Unknown History (Aldactone) Allergy/AdvReac Type Severity Reaction Status Date / Time No Known Allergies Allergy Verified 04/27/23 13:56 Family History Mother Diabetes Father Heart disease CVA (cerebral vascular accident) Surgical History History of hernia surgery History of cholecystectomy History of back surgery Social History household members: spouse and children housing: apartment current occupational status: disabled Smoking Status: Unknown if ever smoked Tobacco: How many years used: 30 how long ago did patient quit smokin alcohol intake: never substance use type: does not use diet: diabetic caffeine: Yes Type: coffee Number of servings: 1 what type of physical activity do you participate in: walking ROS ROS Narrative As per HPI Objective Data Objective Data Vital Signs: Vital Signs Last response Temperature 36.6 C 12/31/23 06:00 Temperature Source Temporal 12/31/23 06:00 Pulse Rate 82 12/31/23 06:00 Pulse Strength Normal (2+) 12/30/23 21:48 Respiratory Rate 16 12/31/23 06:00 Respiratory Effort Normal, Non-Labored 12/31/23 04:54 Respiratory Depth Normal 12/31/23 04:54 Respiratory Pattern Normal 12/31/23 04:54 Blood Pressure 159/94 H 12/31/23 06:00 Blood Pressure Mean 115 12/31/23 06:00 Blood Pressure Source Monitor 12/31/23 06:00 Blood Pressure Position Semi-Fowlers 12/31/23 06:00 Blood Pressure Location Right Arm 12/31/23 06:00 Pulse Ox 99 12/31/23 06:00 Oxygen Delivery Method CPAP 12/31/23 06:00 I&O: I&O Last 24 Hours 12/30/23 12/30/23 12/31/23 11:59 23:59 11:59 Intake Total 0 / 0 1000 / 1000 Output Total 2950 / 2950 Balance 0 / -1500 -1950 / -1950 I&O: Total Stay 12/30/23 15:27 thru 12/31/23 06:19 Intake Total 1000 Output Total 2950 Balance -1950 Current Meds Ordered / Administered: Current meds ordered / Administered Generic Name Dose Route Start Last Admin Trade Name Freq PRN Reason Stop Dose Admin Acetaminophen 650 mg 12/30/23 19:06 Acetaminophen 325 Mg Tablet PO Q6H PRN PRN Pain 1-10 Or Fever>100.7 Albuterol Sulfate 2.5 mg 12/30/23 19:06 Albuterol 2.5 Mg/3 Ml Vial.Neb. INHALATION Q2H PRN PRN SOB &/OR WHEEZING Amoxicillin/Clavulanate Potassium 875 mg 12/30/23 22:00 12/30/23 22:04 Amox/Clavulanate 875 Mg Tablet PO 01/07/24 22:01 875 mg BID [facility] Administration Atorvastatin Calcium 80 mg 12/30/23 22:00 12/30/23 22:04 Atorvastatin Calcium 80 Mg Tablet PO 80 mg QHS [facility] Administration Furosemide 20 mg 12/31/23 10:00 Furosemide 20 Mg Tablet PO DAILY [facility] Protocol Nicardipine/Sodium Chloride 20 mg in 200 mls @ 50 mls/hr 12/30/23 19:06 Cardene-Aakash 20 Mg/200 Ml Soln CONT INF Q4H PRN See Instructions Protocol 5 MG/HR Insulin Human Regular 85 units 12/31/23 08:00 Insulin U-500 Units/Ml Pen SC BREAKFAST [facility] Insulin Human Regular 75 units 12/31/23 11:30 Insulin U-500 Units/Ml Pen SC 1130 [facility] Insulin Human Regular 85 units 12/31/23 16:30 Insulin U-500 Units/Ml Pen SC 1630 [facility] Labetalol HCl 20 mg 12/30/23 19:06 Labetalol (Prefilled) 20 Mg/4 Ml IV 12/31/23 19:07 X1 PRN BP Goals Melatonin 3 mg 12/30/23 19:06 Melatonin 3 Mg Tablet PO QHS PRN PRN INSOMNIA Metoclopramide HCl 10 mg 12/30/23 19:06 Metoclopramide 10 Mg Tablet PO Q6H PRN nausea and vomiting Modafinil 200 mg 12/31/23 10:00 Modafinil 200 Mg Tablet PO DAILY [facility] Nortriptyline HCl 30 mg 12/31/23 10:00 Nortriptyline 10 Mg Capsule PO DAILY [facility] Ondansetron HCl 4 mg 12/30/23 19:06 Ondansetron 4 Mg/2 Ml Vial IV Q8H PRN PRN NAUSEA/VOMITING Senna/Docusate Sodium 2 tablet 12/30/23 19:06 Senna/Docusate Sodium 1 Tablet PO BID PRN Constipation Sodium Chloride 10 - 40 ml 12/30/23 18:44 0.9% Saline Lock 10 Ml Syringe IV UD PRN SALINE FLUSH Tamsulosin HCl 0.4 mg 12/31/23 08:30 Tamsulosin Hcl 0.4 Mg Capsule PO DAILY@0830 [facility] Physical Exam Narrative General: no acute distress; alert and oriented x 4 HEENT: PERRL; EOMI; Anicteric Sclera; No thyromegaly, JVD, Lymphadenopathy Cardiovascular: Regular Rate and Rhythm; No murmurs, rubs, gallops; no displaced PMI Respiratory: no crackles, wheezes, or rhonchi Abdominal: Non-tender; Non-distended; Active BS x 4; No Hepatosplenomegaly Extremities: Warm, well perfused; No clubbing, cyanosis, edema; capillary refill < 2sec Neurological: Left lower ext weaknees. Initial NIH of 3 and current NIH is 1 Medical Records Data Attestation: I reviewed the patient's medical records Lab / Micro Data Attestation: I reviewed the patient's lab results. 12/31/23 04:48 12/31/23 04:48 Labs: Laboratory Results - last 24 hr 12/30/23 15:15: WBC 8.4, RBC 4.89, Hgb 14.2, Hct 42.1, MCV 86.1, MCH 29.0, MCHC 33.7, RDW Std Deviation 39.2, RDW Coeff of Eben 12.6, Plt Count 191, MPV 10.9, Immature Gran % (Auto) 0.500, Neut % (Auto) 62.6, Lymph % (Auto) 23.3, Benton % (Auto) 10.7 H, Eos % (Auto) 2.3, Baso % (Auto) 0.6, Absolute Neuts (auto) 5.3, Absolute Lymphs (auto) 1.96, Nucleated RBC % 0, PT 13.6, INR 1.0, APTT 23.0 L, Sodium 136, Potassium 4.2, Chloride 101, Carbon Dioxide 25.0, Anion Gap 10, BUN 33 H, Creatinine 1.75 H, Estim Creat Clear Calc 44.87, Est GFR (MDRD) Af Amer 50 L, Est GFR (MDRD) Non-Af 41 L, BUN/Creatinine Ratio 18.9, Glucose 161 H, Hemoglobin A1c 10.3 H, Calcium 9.2, Troponin I High Sens 22, Triglycerides 280 H, Cholesterol 133, LDL Cholesterol 30, VLDL Cholesterol 56 H, HDL Cholesterol 47 12/30/23 22:03: POC Glucose 229 H 12/31/23 04:48: WBC 9.0, RBC 4.98, Hgb 14.5, Hct 43.7, MCV 87.8, MCH 29.1, MCHC 33.2, RDW Std Deviation 41.2, RDW Coeff of Eben 12.9, Plt Count 142 L, MPV 10.4, Immature Gran % (Auto) 0.400, Neut % (Auto) 80.5 H, Lymph % (Auto) 10.5 L, Benton % (Auto) 7.1, Eos % (Auto) 1.2, Baso % (Auto) 0.3, Absolute Neuts (auto) 7.2, Absolute Lymphs (auto) 0.94, Nucleated RBC % 0, Sodium 135 L, Potassium 5.4 H, Chloride 101, Carbon Dioxide 28.0, Anion Gap 6, BUN 28 H, Creatinine 1.44 H, Estim Creat Clear Calc 54.10, Est GFR (MDRD) Af Amer 63, Est GFR (MDRD) Non-Af 52 L, BUN/Creatinine Ratio 19.4, Glucose 250 H, Calcium 8.7, Phosphorus 3.5, Magnesium 2.3, Total Bilirubin 0.60, AST 55 H, ALT 89 H, Alkaline Phosphatase 126 H, Total Protein 7.8, Albumin 3.4, Globulin 4.4 H, Albumin/Globulin Ratio 0.8 L Imaging Radiology Impression Brain CT 12/30/23 16:20 IMPRESSION: Chronic involutional changes of the brain. Electronically Signed: Sunil Ann MD at 16:33 EDT , ADDENDUM: 12/30/23 1719 IMPRESSION: Chronic involutional changes of the brain. N.B. : The above Results were Read Back by Sunil Ann MD to Carlo Santana DO, and understanding confirmed on 12/30/2023 17:12:21 (ET). Electronically Signed: Sunil Ann MD at 16:33 EDT , Head/Neck CTA 12/30/23 16:21 IMPRESSION: Normal CTA Head with contrast. Mild (40%) right carotid stenosis. Mild (20%) (left carotid stenosis. Patent vertebral arteries bilaterally. Electronically Signed: Sunil Ann MD at 17:09 EDT , ADDENDUM: 12/30/23 1719 IMPRESSION: Normal CTA Head with contrast. Mild (40%) right carotid stenosis. Mild (20%) (left carotid stenosis. Patent vertebral arteries bilaterally. N.B. : The above Results were Read Back by Sunil Ann MD to Carlo Santana DO, and understanding confirmed on 12/30/2023 17:12:15 (ET). Electronically Signed: Sunil Ann MD at 17:09 EDT , Chest X-Ray 12/30/23 17:10 IMPRESSION: Normal x-ray examination of the chest. Electronically Signed: Jose Mcbride MD at 17:39 EDT , Assessment and Plan . Assessment and plan: # Acute Stroke # TONNY # Hyperkalemia # Celluitis # DM # HTN #HLD # SEBASTIAN # CAD Plan -Continue to monitor patient's hemodynamics, neurological status and respiratory status in ICU -Stroke protocol -TNKase as per protocol -Neurochecks every hour -CT head if patient's neurological status worsening -Blood pressure control with goal SBP less than 180 -Start on Cardene drip to keep blood pressure less than 180 -CTA head and neck -Consult neurology -Neurosurgery will be involved if patient has hemorrhage -Repeat CT head in 24 hours -Hemoglobin A1c and lipid panel -2DEcho - At 24 hours after IV TNK administration, start Aspirin EC 81mg orally daily if no contraindications otherwise. -DVT prophylaxis-SCDs for stroke prevention for now, chemoprophylaxis 24 hours post TNKase -Consult PT OT and speech per protocol -Consult case management for rehab needs -Monitor Renal Function daily -Avoid nephrotoxic medications -IVF if no other contraindications -Renal US -Hartley catheter to monitor I/O?s -+/- Nephrology consult -Repeat K+ -Patient started on Lasix -Continue insulin -Continue Augmentin for Cellulitis -Code status - full code. Critical Care Time: 63mins The entirety of this encounter was done via Telemedicine
[2023-12-31 07:26] LABS: Bedside Glucose 222 mg/dL (74-106)
[2023-12-31] MEDS: Furosemide 20 MG Tablet PO (09:05)
[2023-12-31] MEDS: Insulin U-500 UNITS/ML PEN 85 UNITS SC ×2 (09:05→16:24)
[2023-12-31] MEDS: Amox/Clavulanate 875 MG Tablet PO ×2 (09:05→21:42)
[2023-12-31] MEDS: Tamsulosin HCl 0.4 MG Capsule PO (09:05)
[2023-12-31] MEDS: Modafinil 200 MG Tablet PO (09:05)
[2023-12-31] MEDS: Nortriptyline 10 MG Capsule 30 MG PO (09:06)
--- NOTE | 2023-12-31 09:29 | CASEMGMT ---
Addendum entered by Vicente Isaac 12/31/23 09:41: Pt also has scanned insurance cards for [employer] (A/B) and [employer] Original Note: TRE RODRIGUEZ Assessment Face to Face with patient for initial transition planning/care coordination assessment. TRE RODRIGUEZ introduced self and role at [facility], pt voices understanding. Pt is A&Ox4 and is resting comfortably in bed and is calm. Care providers, pharmacy, and demographics verified. Admitting dx: Lt Sided Weakness LACE Strata: 2 [facility] Specialists: Carido, Endo, and Podiatry through the [facility] Preferred [facility]acy: [facility] [place]: [place] Prescription Benefit: Yes LNOK: Viji Ravi (W), Irwin Armando (SSON) Living Arrangements: Pt lives with his and 25 y/o SS in a single level townhouse with a flat entrance ADLs/IADLs: Pt assists the pt and is his service advisor Transportation: , denies concerns DME: CPAP @ HS with no additional oxygen. W/C. Cane. Rollator. Shower chair. Raised toilet seat. Knee scooter HHC/SNF: Hx with [facility]x at [facility] in Mar Pt?s goal: Home Plan: Home with HHC vs Home with no needs. 6-Click is 22. PT is pending as the pt has TNK administered. Pt states that he is unsure if he would like HHC set up or not at this time. Pt educated that therapy will see the pt and then CM will follow. Kaila Isaac RN, CM
--- NOTE | 2023-12-31 10:11 | CASEMGMT ---
Social Work Pt has a living will and health care POA naming his Viji Rodrigues on file at [facility]. ANA Summers
[2023-12-31] MEDS: 0.9% Saline Lock 10 ML Syringe IV (10:40)
[2023-12-31] MEDS: Pregabalin 50 MG Capsule 200 MG PO ×2 (10:40→21:43)
--- NOTE | 2023-12-31 10:47 | WOUNDNOTE ---
wound photo: right lower leg
--- NOTE | 2023-12-31 10:47 | WOUNDNOTE ---
wound photo: left lower leg
[2023-12-31 11:06] LABS: Anion Gap 5 (5-15); BUN 25 mg/dL (7-18); BUN/Creat Ratio 16.9 RATIO (10-20); Calcium,Total 8.9 mg/dL (8.5-10.1); Chloride 101 mmol/L (98-107); Creatinine, Serum 1.48 mg/dL (0.70-1.30); EST Glomerular Filtration Rate 50 mL/min (>60); Est Glom Filt Rate - Afr Amer 61 mL/min (>60); Estimated Creatinine Clearance 52.64 ml/min; Glucose 248 mg/dL (74-106); Sodium Level 134 mmol/L (136-145)
[2023-12-31] MEDS: Insulin U-500 UNITS/ML PEN 75 UNITS SC (11:46)
[2023-12-31 12:07] LABS: Bedside Glucose 218 mg/dL (74-106)
[2023-12-31] MEDS: Acetaminophen 325 MG Tablet 650 MG PO (16:18)
[2023-12-31 16:38] LABS: Bedside Glucose 260 mg/dL (74-106)
--- NOTE | 2023-12-31 16:49 | MRI_ITS ---
STUDY: MRI BRAIN WITHOUT CONTRAST REASON FOR EXAM: Male, 68 years old. Acute CVA 24hrs after Tenecteplase administration. Additional history- prior stroke, lt side weakness, mild headache, prior MR 2022, 2021 TECHNIQUE: Standardized multiplanar fat and water weighted pulse sequences were obtained. MRI examination brain fusion protocol including multiplanar multiecho noncontrast imaging. Contrast: No contrast administered. COMPARISON: CT examination of 12/30/2023 MRI examination of 06/30/2022. HEMISPHERES, CEREBELLUM AND BRAINSTEM: 1. The cerebral parenchyma, ventricular system and gyral pattern have normal configuration. Diffuse involutional change and chronic microvascular deep white matter disease. 2. No areas of fluid restriction or acute ischemia. No areas of intraparenchymal hemorrhage. 3. Prominent perivascular spaces throughout the basal ganglia. 4. Remote lacunar infarct within the RIGHT thalamus. Additional remote lacunar infarct in the RIGHT pina. 5. No intraparenchymal mass, hemorrhage, or acute territorial infarct. 6. The cerebellum, brainstem, basilar and suprasellar cisterns have normal configuration. No Chiari malformation. PITUITARY: Infundibulum and pituitary have normal configuration. Midline structures appear normal. CSF SPACES: Appropriate for age. No hydrocephalus. Basal cisterns are patent. VESSELS: 1. There are normal flow voids noted in the great vessels at the skull base ORBITS AND PARANASAL SINUSES: 1. Both globes, extraocular muscles, optic nerves and retrobulbar fat appear unremarkable. 2. Diffuse mucosal thickening ethmoid complexes without air-fluid levels. 3. Moderate to extensive bilateral mastoid air cell disease. BONY ELEMENTS: Bony elements of the cranial vault, facial skeleton and skull base have normal appearance. SCALP AND SOFT TISSUES: Normal appearance of the soft tissues of the scalp and the visualized face OTHER: None MRI/Brain without Contrast IMPRESSION: 1. Stable exam. 2. Diffuse involutional changes, chronic microvascular deep white matter disease and areas of remote lacunar infarct. 3. No mass, hemorrhage, or acute territorial infarct. 4. Chronic ethmoid sinus mucosal thickening and significant bilateral mastoid air cell disease. Electronically Signed: Sunil Kenny MD at 21:37 EDT ,
--- NOTE | 2023-12-31 18:21 | PN.HOSP_ITS ---
Reason for Visit Reason for Visit: Diagnoses Weakness (12/30/23) Other malaise (12/30/23) Subjective Subjective Patient was seen and examined today, he is having an MRI of the brain performed this afternoon. Patient states he has some cloudy vision over his right eye-he has had a history of an eye bleed on that side in the past. Objective Data Objective Data Vital Signs: Vital Signs Temp Pulse Resp BP Pulse Ox O2 Del Method 98.1 F 100 23 H 103/91 H 93 Room Air 12/31/23 16:00 12/31/23 17:00 12/31/23 17:00 12/31/23 17:00 12/31/23 17:00 12/31/23 17:00 Oxygen Delivery Method Room Air Weight: 96.4 kg Body Mass Index (BMI) 34.1 Intake & Output: Intake and Output for Last 24 Hours 12/29/23 12/30/23 12/31/23 23:59 23:59 23:59 Intake Total 0 / 0 1500 / 1500 Output Total 4500 / 4500 Balance 0 / -1500 -3000 / -3000 Lab / Micro Data 12/31/23 04:48 12/31/23 10:40 Labs: Laboratory Results - last 24 hr 12/30/23 15:15: Hemoglobin A1c 10.3 H 12/30/23 22:03: POC Glucose 229 H 12/31/23 04:48: WBC 9.0, RBC 4.98, Hgb 14.5, Hct 43.7, MCV 87.8, MCH 29.1, MCHC 33.2, RDW Std Deviation 41.2, RDW Coeff of Eben 12.9, Plt Count 142 L, MPV 10.4, Immature Gran % (Auto) 0.400, Neut % (Auto) 80.5 H, Lymph % (Auto) 10.5 L, Miller % (Auto) 7.1, Eos % (Auto) 1.2, Baso % (Auto) 0.3, Absolute Neuts (auto) 7.2, Absolute Lymphs (auto) 0.94, Nucleated RBC % 0, Sodium 135 L, Potassium 5.4 H, Chloride 101, Carbon Dioxide 28.0, Anion Gap 6, BUN 28 H, Creatinine 1.44 H, Estim Creat Clear Calc 54.10, Est GFR (MDRD) Af Amer 63, Est GFR (MDRD) Non-Af 52 L, BUN/Creatinine Ratio 19.4, Glucose 250 H, Calcium 8.7, Phosphorus 3.5, Magnesium 2.3, Total Bilirubin 0.60, AST 55 H, ALT 89 H, Alkaline Phosphatase 126 H, Total Protein 7.8, Albumin 3.4, Globulin 4.4 H, Albumin/Globulin Ratio 0.8 L 12/31/23 07:08: POC Glucose 222 H 12/31/23 10:40: Sodium 134 L, Potassium 5.0, Chloride 101, Carbon Dioxide 28.0, Anion Gap 5, BUN 25 H, Creatinine 1.48 H, Estim Creat Clear Calc 52.64, Est GFR (MDRD) Af Amer 61, Est GFR (MDRD) Non-Af 50 L, BUN/Creatinine Ratio 16.9, G lucose 248 H, Calcium 8.9 12/31/23 11:45: POC Glucose 218 H 12/31/23 16:17: POC Glucose 260 H Radiography Diagnostic Testing: Radiology Impression Echocardiogram 12/30/23 19:06 Interpretation Summary The estimated ejection fraction is 65 %. No evidence for diastolic dysfunction. Ordering Physician: Sofia Treadwell Referring Physician: [facility] Performed By: Veronica Palomo RDCS and Student Physical Exam Const alert, oriented x3 and no apparent distress General Appearance: cooperative, well kempt and well developed Orientation / Consciousness: awake, oriented to person, oriented to place and oriented to time HEENT normocephalic, head/scalp atraumatic and moist oral mucous membranes Eyes PERRL, EOMs intact bilaterally and conjunctivae normal Neck supple, no JVD, thyroid normal and no carotid bruits General: trachea midline Resp normal respiratory effort, no retractions, no use of accessory muscles and clear to auscultation bilaterally Auscultation: Negative for rales, rhonchi or wheezes Cardio regular rate, regular rhythm, S1 normal heart sound, S2 normal heart sound, no murmurs, no rub and no gallops GI normal to inspection, nondistended, normoactive bowel sounds, soft to palpation, non-tender and non-distended Extremity no clubbing, cyanosis or edema Skin no rashes or lesions noted General Skin Exam: no breakdown Neuro oriented x3, CN's II-XII intact bilaterally, no focal motor deficits and no sensory deficits noted Sensorium / Orientation: awake, alert, oriented to person, oriented to place and oriented to time Speech: speech normal Psych affect normal Assessment & Plan Assessment/Plan (1) Left-sided weakness: PLAN: Plan 1. Left-sided weakness-etiology unclear, patient will have an MRI of the brain performed this afternoon, he got tenecteplase yesterday. Continue PT and OT #2 type 2 diabetes-blood sugars will be monitored, sliding scale insulin will be given as indicated #3 essential hypertension-patient will remain on his present medications #4 chronic kidney disease stage IIIb-continue to monitor labs as indicated, complicates care, management, recovery, and prognosis #5 cerebrovascular disease-patient has had a past history of stroke #6 diabetic retinopathy-patient has had a history of diabetic retinopathy and sees an maintenance tech. #7 coronary artery disease-this appears stable at this time, complicates care, management, recovery, and prognosis Total clinical time spent by myself addressing patient's medical issues, reviewing all of his data, and collaborating with the patient's care team: 35 minutes Charges/Coding Visit Charges Inpatient E&M: 93741 Subs Hosp L2
[2023-12-31] MEDS: Atorvastatin Calcium 80 MG Tablet PO (21:42)
[2024-01-01] VITALS (22 sets, daily range): BP systolic 117–166; BP diastolic 69–102; PULSE 72–108; RESP 14–21; TEMP 36–36.6; O2SAT 94–100; BMI 33.9
[2024-01-01 06:56] LABS: Bedside Glucose 88 mg/dL (74-106)
[2024-01-01] MEDS: Pregabalin 50 MG Capsule 200 MG PO ×2 (08:31→20:29)
[2024-01-01] MEDS: Tamsulosin HCl 0.4 MG Capsule PO ×2 (08:31→11:39)
[2024-01-01] MEDS: Nortriptyline 10 MG Capsule 30 MG PO (08:31)
[2024-01-01] MEDS: Insulin U-500 UNITS/ML PEN 85 UNITS SC ×2 (08:31→17:50)
[2024-01-01] MEDS: Furosemide 20 MG Tablet PO (08:32)
[2024-01-01] MEDS: Modafinil 200 MG Tablet PO (08:32)
[2024-01-01] MEDS: Amox/Clavulanate 875 MG Tablet PO ×2 (08:32→20:29)
--- NOTE | 2024-01-01 10:26 | CASEMGMT ---
Social Work SW met with pt and introduced self and role of SW. Pt admitted for stroke, PHQ9 depression screen completed with score of 3 indicating minimal depression. Pt states he does take an anti depressant which is helpful in regulating pt's mood. Pt states he has services through the [facility] including a PCP although pt cannot remember PCP's name. Pt also states that he is 100% service connected. SW left for DONNA Washington at [facility] to veryify. SW spoke with pt regarding discharge plan. Pt states he has been to [facility] in the past. Pt open to possible need for RU/SNF at time of dc. Pt to be evaluated by PT/OT and Care Coordination will follow for dc planning. ANA Summers
--- NOTE | 2024-01-01 10:52 | CASEMGMT ---
Social Work Pt state he has Medicare A&B. Phone call to registration who reports pt has Keith PALOMINO PPO (policy# [id number]). Return call from PETE Washington who states pt is service connected and qualifies for [place] to pay for a SNF stay if needed. DONNA to continue to follow for dc needs. ANA Summers
[2024-01-01] MEDS: Insulin U-500 UNITS/ML PEN 75 UNITS SC (11:39)
[2024-01-01 12:02] LABS: Bedside Glucose 167 mg/dL (74-106)
--- NOTE | 2024-01-01 14:53 | CASEMGMT ---
Social Work SW met with pt and discussed discharge plan. SW reviewed pt ability with therapy. Pt hopeful he can return home. Pt required assist of 2 for transfers and ambulation and pt was unsteady. Pt agreeable SW speak with his . Phone call to pt and updated on pt functional ability with therapy and pt wishes to return home. Pt states that she cannot care for pt at this level and is agreeable to placement. Pt's first choice with [facility] where pt was previously. SW met with pt and a list of SNF and RU providers including quality and resource use data and consistent with the patient?s preferred geographic region, medical needs, and insurance network were provided from the [employer] Guide. Pt's first choice is [facility]. SW is uncertain if insurance will approve this level of care. Referral made to Mae in RU to review. SW requested pt also choose a SNF. Pt preferred provider is [facility]. DC preschool teacher assistant updated and referral to be made. Plan: [facility] vs. [facility], pending acceptance and insurance ANA Ye
--- NOTE | 2024-01-01 15:06 | CASEMGMT ---
Discharge Planning Referral sent to [facility] via [facility]. Pastora Lozano DC Planning Asst.
--- NOTE | 2024-01-01 15:43 | PCM.PN.HOSP ---
Reason for Visit Reason for Visit: Diagnoses Weakness (12/30/23) Other malaise (12/30/23) Subjective Subjective Patient was seen and examined today, he had some urinary retention and I had him undergo straight catheterization. Patient was seen by physical therapy and it was recommended that the patient go to a intermediate facility or rehab facility for inpatient rehab services. Patient does have a Medicare advantage plan in addition to his [place] coverage. MRI yesterday did not show an acute or subacute stroke. Objective Data Objective Data Vital Signs: Vital Signs Temp Pulse Resp BP Pulse Ox O2 Del Method 97 F L 99 19 H 131/79 H 98 Room Air 01/01/24 14:00 01/01/24 15:05 01/01/24 14:00 01/01/24 14:00 01/01/24 14:00 01/01/24 14:00 Oxygen Delivery Method Room Air Weight: 95.7 kg Body Mass Index (BMI) 33.9 Intake & Output: Intake and Output for Last 24 Hours 12/30/23 12/31/23 01/01/24 23:59 23:59 23:59 Intake Total 0 / 0 1700 / 1700 940 / 940 Output Total 5300 / 5300 950 / 950 Balance 0 / -1500 -3600 / -3600 -10 / -10 Lab / Micro Data 12/31/23 04:48 12/31/23 10:40 Labs: Laboratory Results - last 24 hr 12/31/23 16:17: POC Glucose 260 H 01/01/24 06:39: POC Glucose 88 01/01/24 11:42: POC Glucose 167 H Radiography Diagnostic Testing: Radiology Impression Echocardiogram 12/30/23 19:06 Interpretation Summary The estimated ejection fraction is 65 %. No evidence for diastolic dysfunction. Ordering Physician: Sofia Treadwell Referring Physician: [facility] Performed By: Veronica Palomo RDCS and Student Brain MRI 12/31/23 16:49 IMPRESSION: 1. Stable exam. 2. Diffuse involutional changes, chronic microvascular deep white matter disease and areas of remote lacunar infarct. 3. No mass, hemorrhage, or acute territorial infarct. 4. Chronic ethmoid sinus mucosal thickening and significant bilateral mastoid air cell disease. Electronically Signed: uSnil Kenny MD at 21:37 EDT , Physical Exam Narrative alert, oriented x3 and no apparent distress General Appearance: cooperative, well kempt and well developed Orientation / Consciousness: awake, oriented to person, oriented to place and oriented to time HEENT normocephalic, head/scalp atraumatic and moist oral mucous membranes Eyes PERRL, EOMs intact bilaterally and conjunctivae normal Neck supple, no JVD, thyroid normal and no carotid bruits General: trachea midline Resp normal respiratory effort, no retractions, no use of accessory muscles and clear to auscultation bilaterally Auscultation: Negative for rales, rhonchi or wheezes Cardio regular rate, regular rhythm, S1 normal heart sound, S2 normal heart sound, no murmurs, no rub and no gallops GI normal to inspection, nondistended, normoactive bowel sounds, soft to palpation, non-tender and non-distended Extremity no clubbing, cyanosis or edema Skin no rashes or lesions noted General Skin Exam: no breakdown Neuro oriented x3, CN's II-XII intact bilaterally, no focal motor deficits and no sensory deficits noted Sensorium / Orientation: awake, alert, oriented to person, oriented to place and oriented to time Speech: speech normal Psych affect normal Assessment & Plan Assessment/Plan (1) Left-sided weakness: PLAN: Plan 1. Left-sided weakness-etiology unclear, ischemic stroke was ruled out, patient will continue to receive PT and OT, he will need placement in a intermediate facility or rehab facility for inpatient rehab #2 type 2 diabetes-blood sugars will be monitored, sliding scale insulin will be given as indicated #3 essential hypertension-patient will remain on his present medications #4 chronic kidney disease stage IIIb-continue to monitor labs as indicated, complicates care, management, recovery, and prognosis #5 cerebrovascular disease-patient has had a past history of stroke #6 diabetic retinopathy-patient has had a history of diabetic retinopathy and sees an small business banking officer. #7 coronary artery disease-this appears stable at this time, complicates care, management, recovery, and prognosis #8 urinary retention-secondary to BPH, patient's Flomax was increased Total clinical time spent by myself addressing patient's medical issues, reviewing all of his data, and collaborating with the patient's care team: 35 minutes Charges/Coding Visit Charges Inpatient E&M: 49279 Subs Hosp L2
[2024-01-01 16:54] LABS: Bedside Glucose 168 mg/dL (74-106)
[2024-01-01] MEDS: Heparin Injection (Vial) 5,000 UNIT/ML VIAL 5000 UNIT SC (20:29)
[2024-01-01] MEDS: Atorvastatin Calcium 80 MG Tablet PO (20:29)
--- NOTE | 2024-01-01 20:30 | NURSING ---
Bladder scanned patient post-void. Less than 250 left in bladder. Patient emptied 300. Will not straight cath or place vidal at this time.
[2024-01-01 21:44] LABS: Bedside Glucose 208 mg/dL (74-106)
[2024-01-02] VITALS (7 sets, daily range): BP systolic 112–139; BP diastolic 69–82; PULSE 80–108; RESP 16–18; TEMP 36.2–37; O2SAT 93–97; BMI 34.0
[2024-01-02] MEDS: Insulin U-500 UNITS/ML PEN 85 UNITS SC ×2 (08:11→16:49)
[2024-01-02] MEDS: Nortriptyline 10 MG Capsule 30 MG PO (08:12)
[2024-01-02] MEDS: Furosemide 20 MG Tablet PO (08:12)
[2024-01-02] MEDS: Amox/Clavulanate 875 MG Tablet PO ×2 (08:12→21:00)
[2024-01-02] MEDS: Pregabalin 50 MG Capsule 200 MG PO ×2 (08:17→21:00)
[2024-01-02] MEDS: Heparin Injection (Vial) 5,000 UNIT/ML VIAL 5000 UNIT SC ×2 (08:17→21:01)
[2024-01-02 09:22] LABS: Bedside Glucose 158 mg/dL (74-106)
[2024-01-02] MEDS: Modafinil 200 MG Tablet PO (10:06)
[2024-01-02] MEDS: Insulin U-500 UNITS/ML PEN 75 UNITS SC (12:23)
--- NOTE | 2024-01-02 12:28 | CASEMGMT ---
[facility] has declined patient. [facility] has accepted patient and will start pre-cert. will notify patient and his . Plan: d/c to [facility] pending pre-cert. Mayte BRISENO
--- NOTE | 2024-01-02 12:39 | CASEMGMT ---
DONNA notified patient and his that Rehab has declined, but [facility] has accepted. DONNA explained once insurance approves patient will be transferred. Plan: d/c to [facility] pending insurance approval. Mayte BRISENO
[2024-01-02 12:42] LABS: Bedside Glucose 229 mg/dL (74-106)
--- NOTE | 2024-01-02 14:54 | CASEMGMT ---
Addendum entered by Danelle Portillo 01/02/24 16:13: Social Work SW received an email stating the hospital exemption is approved, so pt would be able to go to SNF if he were to get insurance authorization. SW will place green sheet on chart with the caveat that pt can only go if precert is attained. ROBERTO Rice Original Note: Social Work SW completed the Hospital exemption and faxed it to [facility]. SW faxed hospital exemption to [place]. SW called [employer] for clarification, they will send an email stating the exemption is approved. Once SW receives the email, SW will place green sheet on the chart, stating pt can go only if SNF calls to say that precert was attained. ROBERTO Rice
[2024-01-02 16:49] LABS: Bedside Glucose 178 mg/dL (74-106)
[2024-01-02] MEDS: Tamsulosin HCl 0.4 MG Capsule 0.8 MG PO (16:50)
--- NOTE | 2024-01-02 17:23 | PCM.PN.HOSP ---
Reason for Visit Reason for Visit: Diagnoses Weakness (12/30/23) Other malaise (12/30/23) Subjective Subjective Patient was seen and examined today, he is being seen by PT and OT and we are awaiting approval from his insurance carrier for the patient to go to a jail facility or rehab. Objective Data Objective Data Vital Signs: Vital Signs Temp Pulse Resp BP Pulse Ox O2 Del Method 98.6 F 108 H 16 139/82 H 93 Room Air 01/02/24 15:00 01/02/24 15:00 01/02/24 15:00 01/02/24 15:00 01/02/24 15:00 01/02/24 15:00 Oxygen Delivery Method Room Air Weight: 95.9 kg Body Mass Index (BMI) 34.0 Intake & Output: Intake and Output for Last 24 Hours 12/31/23 01/01/24 01/02/24 23:59 23:59 23:59 Intake Total 1700 / 1700 940 / 940 500 / 500 Output Total 5300 / 5300 1400 / 1400 450 / 450 Balance -3600 / -3600 -460 / -460 50 / 50 Lab / Micro Data 12/31/23 04:48 12/31/23 10:40 Labs: Laboratory Results - last 24 hr 01/01/24 21:26: POC Glucose 208 H 01/02/24 08:16: POC Glucose 158 H 01/02/24 12:22: POC Glucose 229 H 01/02/24 16:31: POC Glucose 178 H Physical Exam Narrative alert, oriented x3 and no apparent distress General Appearance: cooperative, well kempt and well developed Orientation / Consciousness: awake, oriented to person, oriented to place and oriented to time HEENT normocephalic, head/scalp atraumatic and moist oral mucous membranes Eyes PERRL, EOMs intact bilaterally and conjunctivae normal Neck supple, no JVD, thyroid normal and no carotid bruits General: trachea midline Resp normal respiratory effort, no retractions, no use of accessory muscles and clear to auscultation bilaterally Auscultation: Negative for rales, rhonchi or wheezes Cardio regular rate, regular rhythm, S1 normal heart sound, S2 normal heart sound, no murmurs, no rub and no gallops GI normal to inspection, nondistended, normoactive bowel sounds, soft to palpation, non-tender and non-distended Extremity no clubbing, cyanosis or edema Skin no rashes or lesions noted General Skin Exam: no breakdown Neuro oriented x3, CN's II-XII intact bilaterally, no focal motor deficits and no sensory deficits noted Sensorium / Orientation: awake, alert, oriented to person, oriented to place and oriented to time Speech: speech normal Psych affect normal Assessment & Plan Assessment/Plan (1) Diabetes: (2) Left-sided weakness: PLAN: Plan 1. Left-sided weakness-etiology unclear, ischemic stroke was ruled out, patient will continue to receive PT and OT, he will need placement in a jail facility or rehab facility for inpatient rehab #2 type 2 diabetes-blood sugars will be monitored, sliding scale insulin will be given as indicated #3 essential hypertension-patient will remain on his present medications #4 chronic kidney disease stage IIIb-continue to monitor labs as indicated, complicates care, management, recovery, and prognosis #5 cerebrovascular disease-patient has had a past history of stroke #6 diabetic retinopathy-patient has had a history of diabetic retinopathy and sees an certified income tax preparer. #7 coronary artery disease-this appears stable at this time, complicates care, management, recovery, and prognosis #8 urinary retention-secondary to BPH, patient is currently on Flomax Total clinical time spent by myself addressing patient's medical issues, reviewing all of his data, and collaborating with the patient's care team: 35 minutes Charges/Coding Visit Charges Inpatient E&M: 52470 Subs Hosp L2
[2024-01-02] MEDS: MELATONIN 3 MG TABLET PO (20:58)
[2024-01-02] MEDS: Senna/Docusate Sodium 1 Tablet 2 TABLET PO (20:59)
[2024-01-02] MEDS: Atorvastatin Calcium 80 MG Tablet PO (21:00)
[2024-01-02] MEDS: 0.9% Saline Lock 10 ML Syringe IV (21:02)
[2024-01-03 00:55] LABS: Bedside Glucose 301 mg/dL (74-106)
[2024-01-03 02:51] VITALS: BP 130/77; PULSE 95; RESP 18; TEMP 36.9; O2SAT 97
[2024-01-03 03:12] LABS: Bedside Glucose 167 mg/dL (74-106)
[2024-01-03 06:00] VITALS: BMI 34.0
[2024-01-03 08:05] VITALS: BP 128/88; PULSE 89; RESP 18; TEMP 35.9; O2SAT 98
[2024-01-03] MEDS: Amox/Clavulanate 875 MG Tablet PO ×2 (08:06→21:54)
[2024-01-03] MEDS: Heparin Injection (Vial) 5,000 UNIT/ML VIAL 5000 UNIT SC ×2 (08:06→21:54)
[2024-01-03] MEDS: Nortriptyline 10 MG Capsule 30 MG PO (08:07)
[2024-01-03] MEDS: Furosemide 20 MG Tablet PO (08:07)
[2024-01-03] MEDS: Modafinil 200 MG Tablet PO (08:14)
[2024-01-03] MEDS: Pregabalin 50 MG Capsule 200 MG PO ×2 (08:14→21:54)
[2024-01-03 08:37] LABS: Bedside Glucose 105 mg/dL (74-106)
--- NOTE | 2024-01-03 09:23 | PCM.PN.HOSP ---
Reason for Visit Reason for Visit: Diagnoses Type 2 diabetes mellitus without complications (12/30/23) Weakness (12/30/23) Other malaise (12/30/23) Subjective Subjective Patient was seen and examined today, he voices no complaints. We are currently awaiting approval for him to go to penitentiary facility. Blood sugar this morning was 105, I have decided to reduce his U-500 insulin and continue to observe his blood sugar. Objective Data Objective Data Vital Signs: Vital Signs Temp Pulse Resp BP Pulse Ox O2 Del Method 96.6 F L 89 18 128/88 H 98 Room Air 01/03/24 08:05 01/03/24 08:05 01/03/24 08:05 01/03/24 08:05 01/03/24 08:05 01/03/24 08:10 Oxygen Delivery Method Room Air Weight: 96.2 kg Body Mass Index (BMI) 34.0 Intake & Output: Intake and Output for Last 24 Hours 01/01/24 01/02/24 01/03/24 23:59 23:59 23:59 Intake Total 940 / 940 500 / 900 800 / 800 Output Total 1400 / 1400 450 / 450 500 / 500 Balance -460 / -460 50 / 450 300 / 300 Lab / Micro Data 12/31/23 04:48 12/31/23 10:40 Labs: Laboratory Results - last 24 hr 01/02/24 08:16: POC Glucose 158 H 01/02/24 12:22: POC Glucose 229 H 01/02/24 16:31: POC Glucose 178 H 01/02/24 21:20: POC Glucose 301 H 01/03/24 02:54: POC Glucose 167 H 01/03/24 08:02: POC Glucose 105 Physical Exam Narrative alert, oriented x3 and no apparent distress General Appearance: cooperative, well kempt and well developed Orientation / Consciousness: awake, oriented to person, oriented to place and oriented to time HEENT normocephalic, head/scalp atraumatic and moist oral mucous membranes Eyes PERRL, EOMs intact bilaterally and conjunctivae normal Neck supple, no JVD, thyroid normal and no carotid bruits General: trachea midline Resp normal respiratory effort, no retractions, no use of accessory muscles and clear to auscultation bilaterally Auscultation: Negative for rales, rhonchi or wheezes Cardio regular rate, regular rhythm, S1 normal heart sound, S2 normal heart sound, no murmurs, no rub and no gallops GI normal to inspection, nondistended, normoactive bowel sounds, soft to palpation, non-tender and non-distended Extremity no clubbing, cyanosis or edema Skin no rashes or lesions noted General Skin Exam: no breakdown Neuro oriented x3, CN's II-XII intact bilaterally, no focal motor deficits and no sensory deficits noted Sensorium / Orientation: awake, alert, oriented to person, oriented to place and oriented to time Speech: speech normal Psych affect normal Assessment & Plan Assessment/Plan (1) Left-sided weakness: (2) Diabetes: PLAN: Plan 1. Left-sided weakness-etiology unclear, ischemic stroke was ruled out, patient will continue to receive PT and OT, he will need placement in a penitentiary facility or rehab facility for inpatient rehab #2 type 2 diabetes-blood sugars will be monitored, sliding scale insulin will be given as indicated, I adjusted his U-500 insulin today, it may be necessary to remove him from the U-500 completely and use Lantus insulin, I will continue to observe his blood sugars. #3 essential hypertension-patient will remain on his present medications #4 chronic kidney disease stage IIIb-continue to monitor labs as indicated, complicates care, management, recovery, and prognosis #5 cerebrovascular disease-patient has had a past history of stroke #6 diabetic retinopathy-patient has had a history of diabetic retinopathy and sees an plaster maker. #7 coronary artery disease-this appears stable at this time, complicates care, management, recovery, and prognosis #8 urinary retention-secondary to BPH, patient is currently on Flomax Total clinical time spent by myself addressing patient's medical issues, reviewing all of his data, and collaborating with the patient's care team: 35 minutes Charges/Coding Visit Charges Inpatient E&M: 17713 Subs Hosp L2
[2024-01-03 11:28] LABS: Bedside Glucose 207 mg/dL (74-106)
[2024-01-03] MEDS: Insulin U-500 UNITS/ML PEN 35 UNITS SC (12:15)
[2024-01-03 13:05] VITALS: BMI 34.0
[2024-01-03 14:36] VITALS: BP 151/90; PULSE 110; RESP 18; TEMP 36.9; O2SAT 98
--- NOTE | 2024-01-03 14:50 | CASEMGMT ---
Social Work SW sent updates to [place] via [employer]. ROBERTO Rice
[2024-01-03] MEDS: Tamsulosin HCl 0.4 MG Capsule 0.8 MG PO (16:17)
[2024-01-03] MEDS: Insulin U-500 UNITS/ML PEN 40 UNITS SC (16:18)
[2024-01-03 16:39] LABS: Bedside Glucose 305 mg/dL (74-106)
[2024-01-03 18:15] VITALS: BP 132/78; PULSE 102; RESP 18; TEMP 37; O2SAT 97
[2024-01-03 20:51] VITALS: BMI 34.0
[2024-01-03 21:45] VITALS: BP 140/82; PULSE 100; RESP 18; TEMP 36.9; O2SAT 96
[2024-01-03] MEDS: Atorvastatin Calcium 80 MG Tablet PO (21:54)
[2024-01-03] MEDS: Senna/Docusate Sodium 1 Tablet 2 TABLET PO (21:54)
[2024-01-03] MEDS: 0.9% Saline Lock 10 ML Syringe IV (21:55)
[2024-01-03 22:45] LABS: Bedside Glucose 261 mg/dL (74-106)
[2024-01-04 04:09] VITALS: BP 150/70; PULSE 93; RESP 18; TEMP 36.4; O2SAT 98
[2024-01-04 04:38] VITALS: BMI 34.4
[2024-01-04] MEDS: Insulin U-500 UNITS/ML PEN 50 UNITS SC (08:04)
[2024-01-04] MEDS: Amox/Clavulanate 875 MG Tablet PO ×2 (08:05→21:33)
[2024-01-04] MEDS: Furosemide 20 MG Tablet PO (08:05)
[2024-01-04] MEDS: Nortriptyline 10 MG Capsule 30 MG PO (08:06)
[2024-01-04] MEDS: Heparin Injection (Vial) 5,000 UNIT/ML VIAL 5000 UNIT SC ×2 (08:06→21:33)
--- NOTE | 2024-01-04 08:08 | PN.HOSP_ITS ---
Reason for Visit Reason for Visit: Diagnoses Type 2 diabetes mellitus without complications (12/30/23) Weakness (12/30/23) Other malaise (12/30/23) Subjective Subjective Patient was seen and examined today, he is in no distress and he is resting quietly. Objective Data Objective Data Vital Signs: Vital Signs Temp Pulse Resp BP Pulse Ox O2 Del Method 97.6 F L 93 18 150/70 H 98 Room Air 01/04/24 04:09 01/04/24 04:09 01/04/24 04:09 01/04/24 04:09 01/04/24 04:09 01/04/24 04:18 Oxygen Delivery Method Room Air Weight: 97.069 kg Body Mass Index (BMI) 34.4 Intake & Output: Intake and Output for Last 24 Hours 01/02/24 01/03/24 01/04/24 23:59 23:59 23:59 Intake Total 500 / 900 1100 / 1100 Output Total 450 / 450 500 / 500 Balance 50 / 450 600 / 600 Lab / Micro Data 12/31/23 04:48 12/31/23 10:40 Labs: Laboratory Results - last 24 hr 01/03/24 08:02: POC Glucose 105 01/03/24 11:04: POC Glucose 207 H 01/03/24 16:16: POC Glucose 305 H 01/03/24 21:53: POC Glucose 261 H Physical Exam Narrative alert, oriented x3 and no apparent distress General Appearance: cooperative, well kempt and well developed Orientation / Consciousness: awake, oriented to person, oriented to place and oriented to time HEENT normocephalic, head/scalp atraumatic and moist oral mucous membranes Eyes PERRL, EOMs intact bilaterally and conjunctivae normal Neck supple, no JVD, thyroid normal and no carotid bruits General: trachea midline Resp normal respiratory effort, no retractions, no use of accessory muscles and clear to auscultation bilaterally Auscultation: Negative for rales, rhonchi or wheezes Cardio regular rate, regular rhythm, S1 normal heart sound, S2 normal heart sound, no murmurs, no rub and no gallops GI normal to inspection, nondistended, normoactive bowel sounds, soft to palpation, non-tender and non-distended Extremity no clubbing, cyanosis or edema Skin no rashes or lesions noted General Skin Exam: no breakdown Neuro oriented x3, CN's II-XII intact bilaterally, no focal motor deficits and no sensory deficits noted Sensorium / Orientation: awake, alert, oriented to person, oriented to place and oriented to time Speech: speech normal Psych affect normal Assessment & Plan Assessment/Plan (1) Left-sided weakness: (2) Diabetes: PLAN: Plan 1. Left-sided weakness-etiology unclear, ischemic stroke was ruled out, patient will continue to receive PT and OT, he will need placement in a [facility] facility or rehab facility for inpatient rehab #2 type 2 diabetes-blood sugars will be monitored, sliding scale insulin will be given as indicated, I adjusted his U-500 insulin today, patient's blood sugars elevated a little bit since yesterday #3 essential hypertension-patient will remain on his present medications #4 chronic kidney disease stage IIIb-continue to monitor labs as indicated, complicates care, management, recovery, and prognosis #5 cerebrovascular disease-patient has had a past history of stroke #6 diabetic retinopathy-patient has had a history of diabetic retinopathy and sees an nautical instrument mechanic. #7 coronary artery disease-this appears stable at this time, complicates care, management, recovery, and prognosis #8 urinary retention-secondary to BPH, patient is currently on Flomax Total clinical time spent by myself addressing patient's medical issues, reviewing all of his data, and collaborating with the patient's care team: 35 minutes Charges/Coding Visit Charges Inpatient E&M: 90875 Subs Hosp L2
[2024-01-04] MEDS: 0.9% Saline Lock 10 ML Syringe IV ×3 (08:29→21:40)
[2024-01-04 08:54] LABS: Bedside Glucose 180 mg/dL (74-106)
[2024-01-04] MEDS: Modafinil 200 MG Tablet PO (10:16)
[2024-01-04] MEDS: Pregabalin 50 MG Capsule 200 MG PO ×2 (10:16→21:35)
[2024-01-04 10:17] VITALS: BP 141/78; PULSE 78; RESP 18; TEMP 36.8; O2SAT 100
[2024-01-04 10:24] VITALS: BP 141/78; PULSE 78; RESP 18; TEMP 36.8; O2SAT 100
[2024-01-04 11:35] LABS: Bedside Glucose 310 mg/dL (74-106)
[2024-01-04] MEDS: Insulin U-500 UNITS/ML PEN 40 UNITS SC (11:37)
[2024-01-04 12:02] VITALS: BMI 34.4
[2024-01-04 15:50] VITALS: BP 143/82; PULSE 92; RESP 18; TEMP 36.9; O2SAT 94
[2024-01-04] MEDS: Insulin U-500 UNITS/ML PEN 45 UNITS SC (16:52)
[2024-01-04] MEDS: Tamsulosin HCl 0.4 MG Capsule 0.8 MG PO (16:52)
[2024-01-04 17:15] LABS: Bedside Glucose 223 mg/dL (74-106)
[2024-01-04 21:18] VITALS: BP 150/97; PULSE 96; RESP 18; TEMP 36.5; O2SAT 98
[2024-01-04] MEDS: Atorvastatin Calcium 80 MG Tablet PO (21:33)
[2024-01-04 22:06] LABS: Bedside Glucose 169 mg/dL (74-106)
[2024-01-04 22:47] VITALS: BMI 34.4
[2024-01-05 03:37] VITALS: BP 138/79; PULSE 83; RESP 18; TEMP 36.4; O2SAT 96
[2024-01-05 04:15] VITALS: BMI 34.4
[2024-01-05 07:00] VITALS: PULSE 80
[2024-01-05] MEDS: Insulin U-500 UNITS/ML PEN 50 UNITS SC (08:39)
[2024-01-05] MEDS: Nortriptyline 10 MG Capsule 30 MG PO (08:40)
[2024-01-05] MEDS: Furosemide 20 MG Tablet PO (08:40)
[2024-01-05] MEDS: Amox/Clavulanate 875 MG Tablet PO (08:40)
[2024-01-05] MEDS: Heparin Injection (Vial) 5,000 UNIT/ML VIAL 5000 UNIT SC (08:40)
--- NOTE | 2024-01-05 08:52 | CASEMGMT ---
Discharge Planning [facility] has obtained auth to admit. SW updated. Pastora Lozano DC Planning Asst.
--- NOTE | 2024-01-05 08:57 | TREXTCAR_ITS ---
Diet Diet Order/Speech Therapy: 12/31/23 08:49 Diet: Cardiac: Calorie-Controlled 1800 [place] Is pt able to select menu?: Yes Diet Comments: Distant sup; Assist cutting food d/t LUE weakness How many daily calories?: 1800 calorie Routine Orders/Code Status O2 Liters per Minute: Patient to use his CPAP machine at night and while sleeping Routine Lab Work: - (Fingerstick blood sugars AC nightly, coverage with Humalog subcu sliding scale: 200-250: 5 units, 251-300: 10 units, 301-350: 12 units) Code Status: Full Code Wound(s) LLE: Wound Type: scabbed over blisters Dressing Change: Adaptic RLE: Wound Type: cluster of open and scabbed over blisters Dressing Change: Adaptic Therapies Physical Therapy: Eval and Treat Occupational Therapy: Eval and Treat Problem/Diagnosis (1) Left-sided weakness: Status: Acute Code(s): R53.1 - Weakness (2) Diabetes: Status: Acute Code(s): E11.9 - Type 2 diabetes mellitus without complications Plan 1. Left-sided weakness-etiology unclear, ischemic stroke was ruled out, patient will continue to receive PT and OT, he will need placement in a [facility] facility or rehab facility for inpatient rehab #2 type 2 diabetes-blood sugars will be monitored, sliding scale insulin will be given as indicated, I adjusted his U-500 insulin today, patient's blood sugars elevated a little bit since yesterday #3 essential hypertension-patient will remain on his present medications #4 chronic kidney disease stage IIIb-continue to monitor labs as indicated, complicates care, management, recovery, and prognosis #5 cerebrovascular disease-patient has had a past history of stroke #6 diabetic retinopathy-patient has had a history of diabetic retinopathy and sees an resin mixer. #7 coronary artery disease-this appears stable at this time, complicates care, management, recovery, and prognosis #8 urinary retention-secondary to BPH, patient is currently on Flomax Total clinical time spent by myself addressing patient's medical issues, reviewing all of his data, and collaborating with the patient's care team: 35 minutes Allergies/Procedures Done in Hospital Allergies No Known Allergies Allergy (Verified 04/27/23 13:56) Procedures: 2-D Echocardiogram Type of Care/Length of Stay Estimated LOS: Convalescent Care Less Than 30 days Type of Care Needed: Skilled Rehab Potential: Good Prognosis: Good Additional Orders/Day of Discharge H&P will serve as current which was dated: 12/30/23 Day of Discharge: 01/05/24 Dietary and Speech Recommendations Dietitian Recommendations/Changes: Continue 1800CCD/Cardiac diet to manage medical conditions. Discharge Plan Admission Admit Date/Time: 12/30/23 17:33 Primary Reason for Your Visit: Debility, left-sided weakness Attending Provider: Stevenson Rodriguez Primary Care Provider: [facility] Consulting Providers: Sofia Treadwell Discharge Orders/Prescriptions Prescriptions: New melatonin 3 mg Tablet 3 mg PO QHS PRN PRN (Reason: Insomnia) Qty: 0 0RF pregabalin 50 mg Capsule 200 mg PO BID Qty: 0 0RF Humulin R U-500 (Conc) Kwikpen 500 unit/mL (3 mL) Insulin Pen 40 unit subcut 1130 Qty: 0 0RF Humulin R U-500 (Conc) Kwikpen 500 unit/mL (3 mL) Insulin Pen 45 unit subcut 1630 Qty: 0 0RF tamsulosin 0.4 mg Capsule 0.8 mg PO DAILY@1730 Qty: 0 0RF Humulin R U-500 (Conc) Kwikpen 500 unit/mL (3 mL) Insulin Pen 50 unit subcut BREAKFAST Qty: 0 0RF Continued amlodipine 10 mg tablet 5 mg PO DAILY Entresto 49-51 mg tablet 1 tab PO BID Qty: 180 3RF metoprolol tartrate 100 MG tablet 25 mg PO BID Patient Comments: states yes but it is not on his list nortriptyline 10 MG capsule 30 mg PO DAILY modafinil 200 MG tablet 200 mg PO DAILY aspirin 81 MG tablet,chewable 81 mg PO DAILY sertraline 150 mg Capsule 150 mg PO DAILY acetaminophen 500 mg Tablet 1,000 mg PO Q6H PRN PRN (Reason: Pain Score 1-10) Qty: 1 0RF magnesium chloride [Mag 64] 64 mg Tablet,Delayed Release (Dr/Ec) 128 mg PO BID Qty: 60 0RF metoclopramide HCl [Reglan] 10 mg tablet 10 mg PO Q6H PRN (Reason: nausea and vomiting) Qty: 10 0RF atorvastatin [Lipitor] 40 mg tablet 40 mg PO QHS furosemide 20 mg tablet 20 mg PO DAILY spironolactone [Aldactone] 25 mg tablet 25 mg PO DAILY sertraline 100 mg tablet 100 mg PO DAILY Discontinued tamsulosin 0.4 mg Capsule 0.4 mg PO DAILY pregabalin 100 mg Capsule 200 - 300 mg PO BID Patient Comments: pt. states he takes 50 mg? Humulin R U-500 (Conc) Kwikpen 500 unit/mL (3 mL) insulin pen 85 units subcut BREAKFAST Humulin R U-500 (Conc) Kwikpen 500 unit/mL (3 mL) insulin pen 75 units subcut 1130 Humulin R U-500 (Conc) Kwikpen 500 unit/mL (3 mL) insulin pen 85 units subcut 1630 amoxicillin-pot clavulanate 875-125 mg tablet 1 tab PO BID Referrals / [facility] [[facility] Provider[facility] - Disposition Disposition (needs filled in before D/C Order can be placed): Detention Facility
--- NOTE | 2024-01-05 09:17 | DS.PCM_ITS ---
Providers Date of Admission: 12/30/23 Date of Discharge: 01/05/24 Primary Care Physician: [facility] Consultations 12/30/23 16:49 Consult: First Line Production Supervisor / Pulmonary Medicine Routine Consulting Provider: Pulmonary Medicine billy Bolivar Reason for Consult: stroke for thrombolytic administration EMERGENT Consult: Yes MD Notified: Yes Date Notified: 12/30/23 Time Notified: 16:49 Method of Notification: Text Comments:: Consult may be done in ED or ICU 12/30/23 18:59 Consult: Onc/Wound/chauffeur airport limousine Routine Comment: Reason for Consult:: Bilateral lower ext cellulitis w/ open wounds 12/30/23 19:06 Consult: Onc/Wound/chauffeur airport limousine Routine Comment: Consult: Tele-Neurology Routine Consulting Provider: [facility] Reason for Consult: Acute Stroke Post Tenecteplase administration EMERGENT Consult: No Notified: No Date Notified: 12/30/23 Time Notified: 17:36 Nursing Unit Staff Notify [facility] of Tele-Neurology Consult: Yes Reason For Visit: L SIDED WEAKNESS Diagnosis Discharge Diagnosis (1) Left-sided weakness: Status: Acute Code(s): R53.1 - Weakness (2) Diabetes: Status: Acute Code(s): E11.9 - Type 2 diabetes mellitus without complications Plan 1. Left-sided weakness-etiology unclear, ischemic stroke was ruled out, patient will continue to receive PT and OT, he will need placement in a correction facility or rehab facility for inpatient rehab #2 type 2 diabetes-blood sugars will be monitored, sliding scale insulin will be given as indicated, I adjusted his U-500 insulin today, patient's blood sugars elevated a little bit since yesterday #3 essential hypertension-patient will remain on his present medications #4 chronic kidney disease stage IIIb-continue to monitor labs as indicated, complicates care, management, recovery, and prognosis #5 cerebrovascular disease-patient has had a past history of stroke #6 diabetic retinopathy-patient has had a history of diabetic retinopathy and 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 #7 coronary artery disease-this appears stable at this time, complicates care, management, recovery, and prognosis #8 urinary retention-secondary to BPH, patient is currently on Flomax #9 dyspnea-etiology unknown Total clinical time spent by myself addressing patient's medical issues, reviewing all of his data, and collaborating with the patient's care team: 35 minutes Medications at Discharge Home Medications metoprolol tartrate 100 mg tablet 25 mg PO BID blood pressure 10/05/16 nortriptyline 10 mg capsule 30 mg PO DAILY migraines 10/05/16 modafinil 200 mg tablet 200 mg PO DAILY narcolepsy 06/17/19 aspirin 81 mg chewable tablet 81 mg PO DAILY heart health 08/17/19 sertraline 150 mg capsule 150 mg PO DAILY mood 03/19/22 acetaminophen 500 mg tablet 1,000 mg (2 x 500 mg) PO Q6H PRN PRN Pain Score 1-10 #1 TAB 04/16/22 magnesium chloride 64 mg (magnesium chloride) tablet,delayed release (Mag 64) 128 mg (2 x 64 mg) PO BID #60 tabs 04/16/22 amlodipine 10 mg tablet 5 mg PO DAILY 04/30/22 sacubitril 49 mg-valsartan 51 mg tablet (Entresto) 1 tab PO BID #180 tabs 04/30/22 metoclopramide HCl 10 mg tablet (Reglan) 10 mg PO Q6H PRN nausea and vomiting #10 tabs 04/27/23 atorvastatin 40 mg tablet (Lipitor) 40 mg PO QHS 12/30/23 furosemide 20 mg tablet 20 mg PO DAILY 12/30/23 sertraline 100 mg tablet 100 mg PO DAILY 12/30/23 spironolactone 25 mg tablet (Aldactone) 25 mg PO DAILY 12/30/23 insulin regular hum U-500 conc 500 unit/mL(3 mL) subcut pen (Humulin R U-500 (Conc) Insulin Kwikpen) 40 unit (0.08 mL) subcut 1130 #0 mL 01/05/24 insulin regular hum U-500 conc 500 unit/mL(3 mL) subcut pen (Humulin R U-500 (Conc) Insulin Kwikpen) 45 unit (0.09 mL) subcut 1630 #0 mL 01/05/24 insulin regular hum U-500 conc 500 unit/mL(3 mL) subcut pen (Humulin R U-500 (Conc) Insulin Kwikpen) 50 unit (0.1 mL) subcut BREAKFAST #0 mL 01/05/24 melatonin 3 mg tablet 3 mg PO QHS PRN PRN Insomnia #0 tabs 01/05/24 pregabalin 50 mg capsule 200 mg (4 x 50 mg) PO BID #0 caps 01/05/24 tamsulosin 0.4 mg capsule 0.8 mg (2 x 0.4 mg) PO DAILY@1730 #0 caps 01/05/24 Hospital Course Operations None Procedures 2-D Echocardiogram Summary of Care Provided Minutes Spent on Discharge: 32 Hospital Course: This 68-year-old white male was seen in the emergency room at [facility] with complaints of weakness and shortness of breath. Patient had been seen at the [facility] for a visit today and on his way back home started having a mild headache, he then stated that he was walking into his house and felt as if he was going to pass out. He also complained of shortness of breath. Patient stated his left arm felt weaker and his left leg was weak. Patient's NIH score was 4, the stroke team was called, they recommended tenecteplase after his CT brain and CTA of his head and neck were unremarkable. Labs showed a slightly elevated creatinine of 1.75, chest x-ray showed no acute cardiopulmonary process. Patient was given tenecteplase and transferred to ICU for further care, MRI was obtained the next day which showed no evidence of acute stroke. Patient was seen by PT and OT and had an echocardiogram performed. Due to persistent weakness and generalized deconditioning, it was recommended that the patient go to an extended care facility for short-term rehab services. Patient was transferred to PCU and on 01/05/2024, patient was seen and examined: On examination he appeared in good health and spirits. Vital signs as documented. Skin warm and dry and without overt rashes. Neck without JVD, neck was supple, trachea midline, thyroid was normal. Lungs clear bilaterally, normal air movement was noted. Heart exam notable for regular rhythm, normal sounds and absence of murmurs, rubs or gallops. Abdomen unremarkable and without evidence of organomegaly, masses, or abdominal aortic enlargement. Bowel sounds are present, abdomen is not distended. Extremities nonedematous, no cyanosis was noted, no clubbing was noted. Neuro: Cranial nerves II through XII are grossly intact, no focal motor deficits were noted, sensation to light touch and pinprick intact, motor exam 5/5 throughout. Psych: Patient is alert and oriented x3, he does not appear anxious or depressed, he does not appear agitated. Patient was felt to be stable for discharge to an extended care facility for inpatient rehab services on 01/05/2024 Weight / BMI Weight Weight: 97.4 kg Body Mass Index (BMI) 34.4 ABG / Lab / Microbiology Data 12/31/23 04:48 12/31/23 10:40 Laboratory: Laboratory Results - last 24 hr 01/04/24 11:16: POC Glucose 310 H 01/04/24 16:51: POC Glucose 223 H 01/04/24 21:26: POC Glucose 169 H Meaningful Use Info Meaningful Use Meaningful Use Diagnoses (Choose all that apply): None applicable Ischemic Stroke Statin Dosing Therapy Reference: STATIN DOSE THERAPY REFERENCE: * Patients > 75 years receive moderate or high dose statin therapy. * Patients 75 years or YOUNGER should receive HIGH intensity statin dose unless contraindicated. You will be required to document reason for non-treatment if statin daily dose does not meet guidelines. HIGH DOSE STATIN THERAPY DAILY Atorvastatin > than or = to 40 mg Rosuvastatin > than or = to 20 mg Amlodipine + Atorvastatin > than or = to 2.5/40 mg Ezetimibe + Simvastatin 10/80 mg Simvastatin 80mg Discharge Plan Admission Admit Date/Time: 12/30/23 17:33 Primary Reason for Your Visit: Debility, left-sided weakness Attending Provider: Stevenson Rodriguez Primary Care Provider: [facility] Consulting Providers: Sofia Treadwell Discharge Orders/Prescriptions Prescriptions: New melatonin 3 mg Tablet 3 mg PO QHS PRN PRN (Reason: Insomnia) Qty: 0 0RF pregabalin 50 mg Capsule 200 mg PO BID Qty: 0 0RF Humulin R U-500 (Conc) Kwikpen 500 unit/mL (3 mL) Insulin Pen 40 unit subcut 1130 Qty: 0 0RF Humulin R U-500 (Conc) Kwikpen 500 unit/mL (3 mL) Insulin Pen 45 unit subcut 1630 Qty: 0 0RF tamsulosin 0.4 mg Capsule 0.8 mg PO DAILY@1730 Qty: 0 0RF Humulin R U-500 (Conc) Kwikpen 500 unit/mL (3 mL) Insulin Pen 50 unit subcut BREAKFAST Qty: 0 0RF Continued amlodipine 10 mg tablet 5 mg PO DAILY Entresto 49-51 mg tablet 1 tab PO BID Qty: 180 3RF metoprolol tartrate 100 MG tablet 25 mg PO BID Patient Comments: states yes but it is not on his list nortriptyline 10 MG capsule 30 mg PO DAILY modafinil 200 MG tablet 200 mg PO DAILY aspirin 81 MG tablet,chewable 81 mg PO DAILY sertraline 150 mg Capsule 150 mg PO DAILY acetaminophen 500 mg Tablet 1,000 mg PO Q6H PRN PRN (Reason: Pain Score 1-10) Qty: 1 0RF magnesium chloride [Mag 64] 64 mg Tablet,Delayed Release (Dr/Ec) 128 mg PO BID Qty: 60 0RF metoclopramide HCl [Reglan] 10 mg tablet 10 mg PO Q6H PRN (Reason: nausea and vomiting) Qty: 10 0RF atorvastatin [Lipitor] 40 mg tablet 40 mg PO QHS furosemide 20 mg tablet 20 mg PO DAILY spironolactone [Aldactone] 25 mg tablet 25 mg PO DAILY sertraline 100 mg tablet 100 mg PO DAILY Discontinued tamsulosin 0.4 mg Capsule 0.4 mg PO DAILY pregabalin 100 mg Capsule 200 - 300 mg PO BID Patient Comments: pt. states he takes 50 mg? Humulin R U-500 (Conc) Kwikpen 500 unit/mL (3 mL) insulin pen 85 units subcut BREAKFAST Humulin R U-500 (Conc) Kwikpen 500 unit/mL (3 mL) insulin pen 75 units subcut 1130 Humulin R U-500 (Conc) Kwikpen 500 unit/mL (3 mL) insulin pen 85 units subcut 1630 amoxicillin-pot clavulanate 875-125 mg tablet 1 tab PO BID Referrals / [facility]: [facility] [[facility] - Disposition Disposition (needs filled in before D/C Order can be placed): Detention Facility Charges/Coding Visit Charges Inpatient E&M: 60545 Disch Hosp >30min
--- NOTE | 2024-01-05 09:26 | CASEMGMT ---
SW notified physician patient was approved for [facility]. Patient will discharge to [facility] today. Plan: d/c to [facility] under skilled level of care on a convalescent stay. Physicians will transport patient via wheelchair van. Mayte BRISENO
[2024-01-05 09:30] VITALS: BP 153/88; PULSE 85; RESP 16; TEMP 36.8; O2SAT 100
--- NOTE | 2024-01-05 09:34 | PHA.DC_ITS ---
Pharmacy [place] Med Reconciliation Pharmacy Service has performed discharge medication reconciliation for this patient upon transfer to [facility] The patient's discharge medication list was reviewed for discrepancies and discrepancies were resolved. Medications at Discharge Home Medications metoprolol tartrate 100 mg tablet 25 mg PO BID blood pressure 10/05/16 nortriptyline 10 mg capsule 30 mg PO DAILY migraines 10/05/16 modafinil 200 mg tablet 200 mg PO DAILY narcolepsy 06/17/19 aspirin 81 mg chewable tablet 81 mg PO DAILY heart health 08/17/19 sertraline 150 mg capsule 150 mg PO DAILY mood 03/19/22 acetaminophen 500 mg tablet 1,000 mg (2 x 500 mg) PO Q6H PRN PRN Pain Score 1-10 #1 TAB 04/16/22 magnesium chloride 64 mg (magnesium chloride) tablet,delayed release (Mag 64) 128 mg (2 x 64 mg) PO BID #60 tabs 04/16/22 amlodipine 10 mg tablet 5 mg PO DAILY 04/30/22 sacubitril 49 mg-valsartan 51 mg tablet (Entresto) 1 tab PO BID #180 tabs 04/30/22 metoclopramide HCl 10 mg tablet (Reglan) 10 mg PO Q6H PRN nausea and vomiting #10 tabs 04/27/23 atorvastatin 40 mg tablet (Lipitor) 40 mg PO QHS 12/30/23 furosemide 20 mg tablet 20 mg PO DAILY 12/30/23 sertraline 100 mg tablet 100 mg PO DAILY 12/30/23 spironolactone 25 mg tablet (Aldactone) 25 mg PO DAILY 12/30/23 insulin regular hum U-500 conc 500 unit/mL(3 mL) subcut pen (Humulin R U-500 (Conc) Insulin Kwikpen) 40 unit (0.08 mL) subcut 1130 #0 mL 01/05/24 insulin regular hum U-500 conc 500 unit/mL(3 mL) subcut pen (Humulin R U-500 (Conc) Insulin Kwikpen) 45 unit (0.09 mL) subcut 1630 #0 mL 01/05/24 insulin regular hum U-500 conc 500 unit/mL(3 mL) subcut pen (Humulin R U-500 (Conc) Insulin Kwikpen) 50 unit (0.1 mL) subcut BREAKFAST #0 mL 01/05/24 melatonin 3 mg tablet 3 mg PO QHS PRN PRN Insomnia #0 tabs 01/05/24 pregabalin 50 mg capsule 200 mg (4 x 50 mg) PO BID #0 caps 01/05/24 tamsulosin 0.4 mg capsule 0.8 mg (2 x 0.4 mg) PO DAILY@1730 #0 caps 01/05/24
[2024-01-05] MEDS: Pregabalin 50 MG Capsule 200 MG PO (10:09)
[2024-01-05] MEDS: Modafinil 200 MG Tablet PO (10:09)
--- NOTE | 2024-01-05 12:44 | CASEMGMT ---
Discharge Planning Discharge orders, signed med list, covid results, and transport time sent to [facility] via [facility]. Physicians will transport patient by wheelchair at 12p. Nursing, SW, patient, and his updated. Pastora Lozano DC Planning Asst.
--- NOTE | 2024-01-05 12:49 | NURSING ---
Report called to Nurse at [facility]
[2024-01-05 12:54] VITALS: BMI 34.4
[2024-01-05 15:03] LABS: Bedside Glucose 178 mg/dL (74-106)
== END 2024-01-05 12:18 | disposition skilled nursing facility (03) | DRG 556 ==
LOC: ED 17:14 → ICU 12-31 07:55 → PCU 01-02 07:27 → ICU 01-02 07:53
PROVIDERS: Internal Medicine; Admitting Provider Internal Medicine; Emergency Provider Student in an Organized Health Care Education/Training Program; Visit Provider Internal Medicine
DX: R29.898 Other symptoms and signs involving the musculoskeletal system (principal); I42.9 Cardiomyopathy, unspecified; I13.0 Hypertensive heart and chronic kidney disease with heart failure and stage 1 through stage 4 chronic kidney disease, or unspecified chronic kidney disease; L03.116 Cellulitis of left lower limb; N17.9 Acute kidney failure, unspecified; I50.22 Chronic systolic (congestive) heart failure; I69.354 Hemiplegia and hemiparesis following cerebral infarction affecting left non-dominant side; N13.8 Other obstructive and reflux uropathy; E11.319 Type 2 diabetes mellitus with unspecified diabetic retinopathy without macular edema; E11.22 Type 2 diabetes mellitus with diabetic chronic kidney disease; N18.32 Chronic kidney disease, stage 3b; E11.42 Type 2 diabetes mellitus with diabetic polyneuropathy; Z79.4 Long term (current) use of insulin; E03.9 Hypothyroidism, unspecified; F32.A Depression, unspecified; I65.23 Occlusion and stenosis of bilateral carotid arteries; I25.10 Atherosclerotic heart disease of native coronary artery without angina pectoris; F41.9 Anxiety disorder, unspecified; G47.33 Obstructive sleep apnea (adult) (pediatric); K21.9 Gastro-esophageal reflux disease without esophagitis; E78.5 Hyperlipidemia, unspecified; H54.7 Unspecified visual loss; I25.2 Old myocardial infarction; I69.392 Facial weakness following cerebral infarction; E87.5 Hyperkalemia; G47.419 Narcolepsy without cataplexy; E66.9 Obesity, unspecified; R33.8 Other retention of urine; N40.1 Benign prostatic hyperplasia with lower urinary tract symptoms; G89.29 Other chronic pain; R53.81 Other malaise; R29.703 NIHSS score 3; H91.93 Unspecified hearing loss, bilateral; M81.0 Age-related osteoporosis without current pathological fracture; Z68.34 Body mass index [BMI] 34.0-34.9, adult; Z86.16 Personal history of COVID-19; Z87.891 Personal history of nicotine dependence; Z82.3 Family history of stroke
CPT/HCPCS: 51702; 70450; 70496; 70498; 70551; 71045; 80048; 80053; 80061; 82962; 83036; 83735; 84100; 84484; 85025; 85610; 85730; 87426; 92523; 92610; 93005; 93306; 94668; 97110; 97116; 97129; 97162; 97166; 97530; 97535; 97802; 99285; J3101; Q9967; A4216

== ENCOUNTER 2024-02-10 14:36 | Inpatient (IN) | payer OTHER, SELFPAY ==
[2024-02-10 14:38] VITALS: BP 113/55; PULSE 80; RESP 17; TEMP 37; O2SAT 92; BMI 34.6
--- NOTE | 2024-02-10 15:07 | EKG12_ITS ---
Test Reason : WEAKNESS Blood Pressure : / mmHG Vent. Rate : 077 BPM Atrial Rate : 077 BPM P-R Int : 200 ms QRS Dur : 154 ms QT Int : 450 ms P-R-T Axes : 023 -22 033 degrees QTc Int : 509 ms Normal sinus rhythm Right bundle branch block Inferior infarct , age undetermined Abnormal ECG Confirmed by Miguel Mejia ([id number]), content editor GENARO JIMENEZ ([id number]) on 02/11/2024 10:14:46 AM Referred By: Confirmed By:Miguel Mejia
--- NOTE | 2024-02-10 15:12 | EX.ED.DYSGE1 ---
HPI History of Present Illness Chief Complaint: Weakness Narrative Narrative: Patient is a 68-year-old male with past medical history of CVA with left-sided weakness, depression, anxiety, hyperlipidemia, SEBASTIAN, GERD, GI bleed, type 2 diabetes, hypertension who presents to the emergency department chief complaint of inability to ambulate. Patient states that prior to him going to bed around 1030 last night he was fine and able to ambulate. He states that when he woke up this morning which was around 9 AM he noted that he was unable to stand up out of his bed. He states that he crawled on the floor to let his dog outside and try to get up however he was unable to do so. Patient states he made it back into a chair and noted that he was evaluated by a nurse that advised him to come here for the evaluation management. Patient denies any recent illnesses or sick contacts. He states that otherwise he feels fine he is just too weak to walk. Patient denies any falls where he hit his head denies any blood thinner medications. [facility] Medical History Left-sided weakness Right pontine stroke Diabetic retinopathy Narcolepsy Depression Anxiety Diabetic polyneuropathy Vitamin D deficiency Migraine headache Obstructive sleep apnea Hyperlipidemia Coronary artery disease Ischemic stroke Hernia History of COVID-19 Vision loss of right eye Hearing loss, left Hearing loss, right Hypothyroidism Chronic pain Osteoporosis GERD (gastroesophageal reflux disease) GI bleed Former smoker CPAP (continuous positive airway pressure) dependence Sleep apnea Chest pain Elevated troponin Elevated lipase Myocardial infarct DM2 (diabetes mellitus, type 2) Essential (primary) hypertension Home Medications ?Medication ?Instructions ?Recorded ?Last Taken ?Type metoprolol tartrate 100 mg tablet 25 mg PO DAILY blood pressure 10/05/16 06/28/22 History nortriptyline 10 mg capsule 30 mg PO DAILY migraines 10/05/16 2 Days Ago History ~06/26/22 aspirin 81 mg chewable tablet 81 mg PO DAILY heart health 08/17/19 06/28/22 History acetaminophen 500 mg tablet 1,000 mg (2 x 500 mg) PO Q6H PRN 04/16/22 Unknown Rx PRN Pain Score 1-10 #1 TAB magnesium chloride 64 mg 128 mg (2 x 64 mg) PO BID #60 tabs 04/16/22 06/28/22 Rx (magnesium chloride) tablet,delayed release (Mag 64) amlodipine 10 mg tablet 5 mg PO DAILY 04/30/22 06/28/22 History sacubitril 49 mg-valsartan 51 mg 1 tab PO BID #180 tabs 04/30/22 06/28/22 Rx tablet (Entresto) metoclopramide HCl 10 mg tablet 10 mg PO Q6H PRN nausea and 04/27/23 Unknown Rx (Reglan) vomiting #10 tabs atorvastatin 40 mg tablet (Lipitor) 40 mg PO QHS 12/30/23 Unknown History furosemide 20 mg tablet 20 mg PO DAILY 12/30/23 Unknown History sertraline 100 mg tablet 100 mg PO DAILY 12/30/23 Unknown History spironolactone 25 mg tablet 25 mg PO DAILY 12/30/23 Unknown History (Aldactone) insulin regular hum U-500 conc 500 50 unit (0.1 mL) subcut BREAKFAST 01/05/24 Unknown Rx unit/mL(3 mL) subcut pen (Humulin #0 mL R U-500 (Conc) Insulin Kwikpen) melatonin 3 mg tablet 3 mg PO QHS PRN PRN Insomnia #0 01/05/24 Unknown Rx tabs tamsulosin 0.4 mg capsule 0.8 mg (2 x 0.4 mg) PO DAILY@1730 01/05/24 Unknown Rx #0 caps insulin regular hum U-500 conc 500 90 unit subcut BID 02/10/24 Unknown History unit/mL(3 mL) subcut pen (Humulin R U-500 (Conc) Insulin Kwikpen) Allergy/AdvReac Type Severity Reaction Status Date / Time No Known Allergies Allergy Verified 02/10/24 14:46 Family History Mother Diabetes Father Heart disease CVA (cerebral vascular accident) Surgical History History of hernia surgery History of cholecystectomy History of back surgery Social History household members: spouse and children housing: apartment current occupational status: disabled Smoking Status: Unknown if ever smoked Tobacco: How many years used: 30 how long ago did patient quit smokin alcohol intake: never substance use type: does not use diet: diabetic caffeine: Yes Type: coffee Number of servings: 1 what type of physical activity do you participate in: walking ROS ROS ED ROS Narrative Constitutional: Denies any fevers, chills, headaches, lightheadedness, dizziness Eyes: Denies any change in vision double vision blurry vision Cardiovascular: Denies chest pain or palpitations Respiratory: Denies coughing wheezing shortness of breath Abdomen: Denies any abdominal pain nausea vomiting diarrhea : Denies any painful urination, hematuria, polyuria Neurological: Complains of bilateral lower extremity weakness as noted above denies any numbness or tingling Musculoskeletal: Denies any back pain Skin: Denies rashes or lesions EXAM Physical Exam Narrative Exam Narrative: General: Patient lying in bed rest comfortably did not appear to be in acute distress Head: Atraumatic, normocephalic Eyes: PERRL bilaterally, EOMI bilateral, no conjunctival injection noted Neck: Soft, supple, trachea midline Cardiovascular: Regular rate and rhythm no murmurs gallops or rubs noted Respiratory: Clear to auscultation bilaterally Abdomen: Soft, nondistended, nontender to palpation, bowel sounds present x 4 Extremities: Plus 4/5 strength in the bilateral upper extremities, +3/5 strength in the bilateral lower extremities, 1+ pitting edema in the bilateral lower extremities Neurological: Patient is following commands knew that he was at [facility] the year is 2023 and that we are in summer. NIH of 0 GCS of 15 sensation is grossly intact Skin: Patient has chronic's wounds noted to his bilateral extremities his right lower extremity is erythematous on the anterior clark that is warm to the touch and has minimal change in redness with elevation of his right leg Psychiatric: Mood affect appropriate Const Vital Signs: 02/10/24 14:38 02/10/24 14:42 02/10/24 16:38 Temperature 98.6 F Temperature Source Oral Pulse Rate 80 79 Respiratory Rate 17 18 Respiratory Pattern Normal Blood Pressure 113/55 L 125/70 H Blood Pressure Mean 74 88 Pulse Ox 92 97 Oxygen Delivery Method Room Air Room Air 02/10/24 17:06 02/10/24 17:06 Temperature 97.8 F Temperature Source Pulse Rate 79 79 Respiratory Rate 18 18 Respiratory Pattern Blood Pressure 136/77 H 136/77 H Blood Pressure Mean 96 96 Pulse Ox 98 97 Oxygen Delivery Method Room Air MDM MDM MDM Narrative Medical decision making narrative: Patient is a 68-year-old male who presented to the emergency department with a chief complaint of bilateral lower extremity weakness and inability ambulate. Patient will have a workup performed here on the differential diagnose includes but not limited to ACS, electrolyte abnormality, UTI, pneumonia. Once workup is obtained and reviewed he will be reevaluated. Patient will be given IV fluids for hydration. Insert general: Patient CBC reviewed and was largely unremarkable no evidence of leukocytosis white blood count normal 8.8, hemoglobin stable 13.6, platelet count was 146. Patient's sodium was noted to be 1 normal at 136, potassium normal at 4.6, creatinine was elevated 1.91 indicating acute kidney injury as his previous kidney function from earlier this year was noted to be normal at 1.18. Patient's glucose noted to be elevated to 21, magnesium was noted to be 2.8. Patient's urinalysis did not reveal any evidence of infection and his TSH was noted to be normal at 0.93. Patient's EKG was reviewed and showed sinus rhythm with a rate of 77 bpm. Patient's chest x-ray reviewed and showed no acute cardiopulmonary processes. Patient was attempted to be ambulated here in the emergency department and was extremely weak. Patient will require admission to the hospital for a right lower extremity cellulitis which she was given a gram of Rocephin, generalized weakness and acute kidney injury. Patient case was discussed with hospitalist Dr. Nava who accept patient for admission. Patient was notified and is agreeable to plan all question concerns answered bedside. Lab Data Labs: Laboratory Results - last 24 hr 02/10/24 02/10/24 15:23 15:55 WBC 8.8 RBC 4.61 Hgb 13.6 Hct 40.8 MCV 88.5 MCH 29.5 MCHC 33.3 RDW Std Deviation 41.0 RDW Coeff of Eben 12.7 Plt Count 146 L MPV 10.7 Immature Gran % (Auto) 0.300 Neut % (Auto) 80.7 H Lymph % (Auto) 10.1 L [place] % (Auto) 7.6 Eos % (Auto) 1.1 Baso % (Auto) 0.2 Absolute Neuts (auto) 7.1 Absolute Lymphs (auto) 0.89 Nucleated RBC % 0 Sodium 136 Potassium 4.6 Chloride 102 Carbon Dioxide 27.0 Anion Gap 7 BUN 38 H Creatinine 1.91 H Estim Creat Clear Calc 41.00 Est GFR (MDRD) Af Amer 45 L Est GFR (MDRD) Non-Af 37 L BUN/Creatinine Ratio 19.9 Glucose 221 H Calcium 8.9 Magnesium 2.8 H Total Bilirubin 0.50 AST 30 ALT 39 Alkaline Phosphatase 96 Troponin I High Sens 23 Total Protein 7.8 Albumin 3.4 Globulin 4.4 H Albumin/Globulin Ratio 0.8 L TSH 0.930 Urine Color Yellow Urine Clarity Clear Urine pH 6.0 Ur Specific [place] 1.015 Urine Protein 15 H Urine Glucose (UA) 1000 H Urine Ketones Negative Urine Occult Blood Negative Urine Nitrite Negative Urine Bilirubin Negative Urine Urobilinogen Normal Ur Leukocyte Esterase Negative Urine RBC 0 SEEN Urine WBC 0 SEEN Ur Squamous Epith Cells 0 SEEN Urine Bacteria 0 SEEN Urine Mucus RARE Radiography Diagnostic Testing: Clinical Impression(s) from Imaging Studies Chest X-Ray 02/10/24 15:29 IMPRESSION: Limited inspiratory effort. The lungs are clear. Electronically Signed: Adi Burroughs MD at 15:38 EDT , Discharge Plan Triage Chief Complaint: Weakness ED Provider: Gerald John Dx/Rx/DC Orders Clinical Impression: Acute kidney injury, Cellulitis of leg, right, Generalized weakness Primary Care Provider: [place] [place]
[2024-02-10] MEDS: 0.9% Normal Saline (1000mL) 1,000 ML 999 ML IV (15:17)
--- NOTE | 2024-02-10 15:29 | RAD_ITS ---
STUDY: X-RAY CHEST REASON FOR EXAM: Male, 68 years old. Weakness TECHNIQUE: Single AP portable view of the chest. COMPARISON: Comparison is made with prior study dated December 30, 2023. FINDINGS: EKG electrodes are seen. Limited inspiratory effort. The lungs are clear. There is no demonstrated pleural abnormality. Normal size heart. Normal mediastinum and orin. Normal visualized pulmonary arteries. Normal visualized aortic arch and descending thoracic aorta. Normal visualized thoracic spine. Normal visualized ribs, clavicles, and shoulders. There is no demonstrated abnormality of the visualized soft tissue structures of the upper abdomen. RAD/Chest 1 View (Portable) IMPRESSION: Limited inspiratory effort. The lungs are clear. Electronically Signed: Adi Burroughs MD at 15:38 EDT ,
[2024-02-10 15:34] LABS: Absolute Lymphocyte Count 0.89 X10^3/uL (0.83-4.51); Absolute Neutrophil Count 7.1 X10^3/uL (2.0-7.7); Basophil# 0.02 X10^3/uL; Basophil% 0.2 % (0-1); Eosinophils% 1.1 % (0-5); Hematocrit 40.8 % (40-54); Hemoglobin 13.6 g/dL (13.0-16.5); Lymphocyte # 0.89 X10^3/ul (0.83-4.51); Lymphocyte % 10.1 % (19-41); Mean Corp Hgb Conc 33.3 g/dL (32-36); Mean Corpuscular Hgb 29.5 pg (27.0-32.0); Mean Corpuscular Volume 88.5 fL (80-94); Mean Platelet Vol. 10.7 fl (6.2-12.0); Monocyte# 0.67 X10^3/uL; Monocyte% 7.6 % (0-10); NRBC Flagged by Analyzer 0 % (0-5); Neutrophil # 7.11 X10^3/uL (2.7-7.7); Neutrophil % 80.7 % (47-70); Platelet Count 146 K/mm3 (150-450); RBC Distribution Width CV 12.7 % (11.6-14.6); Red Blood Count 4.61 M/mm3 (4.6-6.2); White Blood Count 8.8 K/mm3 (4.4-11.0)
[2024-02-10 15:59] LABS: ALB/GLOB Ratio 0.8 RATIO (0.9-2.4); AST(SGOT) 30 U/L (15-37); Alanine Aminotransfer ALT/SGPT 39 U/L (16-61); Albumin, Serum 3.4 g/dL (3.2-5.0); Alkaline Phosphatase 96 U/L (45-117); Anion Gap 7 (5-15); BUN 38 mg/dL (7-18); BUN/Creat Ratio 19.9 RATIO (10-20); Calcium,Total 8.9 mg/dL (8.5-10.1); Chloride 102 mmol/L (98-107); Creatinine, Serum 1.91 mg/dL (0.70-1.30); EST Glomerular Filtration Rate 37 mL/min (>60); Est Glom Filt Rate - Afr Amer 45 mL/min (>60); Globulin 4.4 g/dL (2.2-4.2); Glucose 221 mg/dL (74-106); Magnesium 2.8 mg/dL (1.6-2.6); Potassium 4.6 mmol/L (3.5-5.1); Protein, Total 7.8 g/dL (6.4-8.2); Sodium Level 136 mmol/L (136-145); Troponin-I HS 23 pg/mL (3.0-78.0)
[2024-02-10 16:02] LABS: Bacteria 0 SEEN /hpf (None Seen); Red Blood Cells-Urine 0 SEEN /hpf (0-5); Squamous Epithelial Cells - UA 0 SEEN /hpf (0-5); White Blood Cells 0 SEEN /hpf (0-5)
[2024-02-10 16:38] VITALS: BP 125/70; PULSE 79; RESP 18; O2SAT 97
[2024-02-10 16:38] LABS: Color, Urine Yellow (Yellow); Glucose, Dipstick 1000 mg/dl (Normal); Ketone-Dipstick Negative (Negative); Leukocyte Esterase-Dipstick Negative /ul (Negative); Nitrite-Dipstick Negative (Negative); Occult Blood-Urine Negative /ul (Negative); Protein-Dipstick 15 mg/dl (Negative); Specific Gravity, Urine 1.015 (1.002-1.030); Urine Bilirubin Dipstick Negative (Negative); Urine Clarity Clear (Clear); Urine Urobilinogen Normal (Normal)
[2024-02-10 17:06] VITALS: BP 136/77; PULSE 79; RESP 18; TEMP 36.6; O2SAT 97; O2SAT 98
[2024-02-10 17:14] LABS: Mucous, Urine RARE /hpf (<or=2+)
--- NOTE | 2024-02-10 17:22 | PCM.HP.STD ---
HPI - General General Date of Admission: 02/10/24 Date of Service: 02/10/24 Chief Complaint: Generalized weakness HPI Narrative OPAL CRUZ, is a 68-year-old male history of CVA with chronic left-sided weakness, CAD, bph, depression and anxiety, SEBASTIAN, GERD, type 2 diabetes presented to [facility] ED 02/10/2024 with inability to ambulate. Went to bed at 1030 last night was able to ambulate and was doing fine but woke up this morning at 9 AM and was unable to get out of bed prompting him to present to the hospital for evaluation. Patient has no other acute complaints but just feels too weak to walk. In the ED patient found to have elevated BUN/creatinine at 38 and 1.91 up from 22 and 1.18 less than a month ago but workup otherwise unremarkable, was noted to have some increased erythema on right lower extremity concerning for cellulitis and given Rocephin. Due to weakness, right lower extremity cellulitis, and TONNY hospitalist contacted for admission. Patient evaluated at bedside with significant other present. Patient reports he was in his usual health last night but at 9 AM he was too weak to get up, has had some chronic lower extremity wounds but his right lower extremity is more erythematous compared to the left and that started this morning. Had diarrhea 2 days ago but no present bowel problems. Other than the weakness and right lower extremity cellulitis he denies any new or acute complaints. Was unable to ambulate more than a few steps when attempted in the ED, still feeling generally weak [facility] Medical History Left-sided weakness Right pontine stroke Diabetic retinopathy Narcolepsy Depression Anxiety Diabetic polyneuropathy Vitamin D deficiency Migraine headache Obstructive sleep apnea Hyperlipidemia Coronary artery disease Ischemic stroke Hernia History of COVID-19 Vision loss of right eye Hearing loss, left Hearing loss, right Hypothyroidism Chronic pain Osteoporosis GERD (gastroesophageal reflux disease) GI bleed Former smoker CPAP (continuous positive airway pressure) dependence Sleep apnea Chest pain Elevated troponin Elevated lipase Myocardial infarct DM2 (diabetes mellitus, type 2) Essential (primary) hypertension Home Medications ?Medication ?Instructions ?Recorded ?Last Taken ?Type metoprolol tartrate 100 mg tablet 25 mg PO DAILY blood pressure 10/05/16 06/28/22 History nortriptyline 10 mg capsule 30 mg PO DAILY migraines 10/05/16 2 Days Ago History ~06/26/22 aspirin 81 mg chewable tablet 81 mg PO DAILY heart health 08/17/19 06/28/22 History acetaminophen 500 mg tablet 1,000 mg (2 x 500 mg) PO Q6H PRN 04/16/22 Unknown Rx PRN Pain Score 1-10 #1 TAB magnesium chloride 64 mg 128 mg (2 x 64 mg) PO BID #60 tabs 04/16/22 06/28/22 Rx (magnesium chloride) tablet,delayed release (Mag 64) amlodipine 10 mg tablet 5 mg PO DAILY 04/30/22 06/28/22 History sacubitril 49 mg-valsartan 51 mg 1 tab PO BID #180 tabs 04/30/22 06/28/22 Rx tablet (Entresto) metoclopramide HCl 10 mg tablet 10 mg PO Q6H PRN nausea and 04/27/23 Unknown Rx (Reglan) vomiting #10 tabs atorvastatin 40 mg tablet (Lipitor) 40 mg PO QHS 12/30/23 Unknown History furosemide 20 mg tablet 20 mg PO DAILY 12/30/23 Unknown History sertraline 100 mg tablet 100 mg PO DAILY 12/30/23 Unknown History spironolactone 25 mg tablet 25 mg PO DAILY 12/30/23 Unknown History (Aldactone) insulin regular hum U-500 conc 500 50 unit (0.1 mL) subcut BREAKFAST 01/05/24 Unknown Rx unit/mL(3 mL) subcut pen (Humulin #0 mL R U-500 (Conc) Insulin Kwikpen) melatonin 3 mg tablet 3 mg PO QHS PRN PRN Insomnia #0 01/05/24 Unknown Rx tabs tamsulosin 0.4 mg capsule 0.8 mg (2 x 0.4 mg) PO DAILY@1730 01/05/24 Unknown Rx #0 caps insulin regular hum U-500 conc 500 90 unit subcut BID 02/10/24 Unknown History unit/mL(3 mL) subcut pen (Humulin R U-500 (Conc) Insulin Kwikpen) Allergy/AdvReac Type Severity Reaction Status Date / Time No Known Allergies Allergy Verified 02/10/24 14:46 Family History Mother Diabetes Father Heart disease CVA (cerebral vascular accident) Surgical History History of hernia surgery History of cholecystectomy History of back surgery Social History household members: spouse and children housing: apartment current occupational status: disabled Smoking Status: Unknown if ever smoked Tobacco: How many years used: 30 how long ago did patient quit smokin alcohol intake: never substance use type: does not use diet: diabetic caffeine: Yes Type: coffee Number of servings: 1 what type of physical activity do you participate in: walking ROS ROS Narrative General: Denies fever/chills HENT: Denies headache, denies stuffy nose, denies sore throat EYES: Chronic problems with vision due to his diabetes Resp: Denies cough, denies shortness of breath Cardiac: Denies chest pain GI: Denies abdominal pain, denies changes in bowel, episode of diarrhea 2 days ago that is resolved,, denies nausea/vomiting : Denies changes in urination Extremity: Denies swelling MSK: Weakness especially in legs but bilateral nature Neuro: Denies any numbness/tingling Heme: Denies any bleeding or bruising Skin: Increased right lower extremity erythema around the chronic wound Psychiatric: No complaints voiced Vital Signs Vital Signs Vital Signs: 02/10/24 14:38 02/10/24 14:42 02/10/24 16:38 Temperature 98.6 F Temperature Source Oral Pulse Rate 80 79 Respiratory Rate 17 18 Respiratory Pattern Normal Blood Pressure 113/55 L 125/70 H Blood Pressure Mean 74 88 Pulse Ox 92 97 Oxygen Delivery Method Room Air Room Air 02/10/24 17:06 02/10/24 17:06 Temperature 97.8 F Temperature Source Pulse Rate 79 79 Respiratory Rate 18 18 Respiratory Pattern Blood Pressure 136/77 H 136/77 H Blood Pressure Mean 96 96 Pulse Ox 98 97 Oxygen Delivery Method Room Air Weight Weight: 97.4 kg Body Mass Index (BMI) 34.6 Physical Exam Narrative General: Alert, oriented, no apparent distress HEENT: Atraumatic, normocephalic Eyes: Anicteric, normal conjunctiva, extraocular movements grossly intact Neck: Supple Respiratory: Clear to auscultation bilaterally, normal respiratory effort Cardiovascular: Regular rate and rhythm GI: Nontender, no rebound, guarding, rigidity Extremities: Trace bilateral lower extremity edema Musculoskeletal: Moving all extremities Neuro: No overt focal neurological deficits Skin: Chronic wounds in bilateral lower extremities, some erythema surrounding on right lower extremity Psych: Cooperative Results Lab / Micro Data 02/10/24 15:23 02/10/24 15:23 Labs: Laboratory Results - last 24 hr 02/10/24 15:23: WBC 8.8, RBC 4.61, Hgb 13.6, Hct 40.8, MCV 88.5, MCH 29.5, MCHC 33.3, RDW Std Deviation 41.0, RDW Coeff of Eben 12.7, Plt Count 146 L, MPV 10.7, Immature Gran % (Auto) 0.300, Neut % (Auto) 80.7 H, Lymph % (Auto) 10.1 L, [place] % (Auto) 7.6, Eos % (Auto) 1.1, Baso % (Auto) 0.2, Absolute Neuts (auto) 7.1, Absolute Lymphs (auto) 0.89, Nucleated RBC % 0, Sodium 136, Potassium 4.6, Chloride 102, Carbon Dioxide 27.0, Anion Gap 7, BUN 38 H, Creatinine 1.91 H, Estim Creat Clear Calc 41.00, Est GFR (MDRD) Af Amer 45 L, Est GFR (MDRD) Non-Af 37 L, BUN/Creatinine Ratio 19.9, Glucose 221 H, Calcium 8.9, Magnesium 2.8 H, Total Bilirubin 0.50, AST 30, ALT 39, Alkaline Phosphatase 96, Troponin I High Sens 23, Total Protein 7.8, Albumin 3.4, Globulin 4.4 H, Albumin/Globulin Ratio 0.8 L, TSH 0.930 02/10/24 15:55: Urine Color Yellow, Urine Clarity Clear, Urine pH 6.0, Ur Specific [place] 1.015, Urine Protein 15 H, Urine Glucose (UA) 1000 H, Urine Ketones Negative, Urine Occult Blood Negative, Urine Nitrite Negative, Urine Bilirubin Negative, Urine Urobilinogen Normal, Ur Leukocyte Esterase Negative, Urine RBC 0 SEEN, Urine WBC 0 SEEN, Ur Squamous Epith Cells 0 SEEN, Urine Bacteria 0 SEEN, Urine Mucus RARE Imaging Radiology Impression Chest X-Ray 02/10/24 15:29 IMPRESSION: Limited inspiratory effort. The lungs are clear. Electronically Signed: Adi Burroughs MD at 15:38 EDT , Assessment & Plan Assessment/Plan (1) Cellulitis: PLAN: Plan #TONNY -BUN 38 creatinine 1.91 up from 07/07.18 less than a month ago -IV fluids -Hold diuretics at this time, reports he is on the diuretics as he has had significant swelling in lower extremities before leading to blisters that have popped and caused chronic wounds -Daily weights, I's and O's -Last echo 12/31/2023 with EF of 65 and no evidence of diastolic dysfunction, unclear reason for lower extremity swelling necessitating multiple diuretics however has been maintained on these for period of time -Hold LEON, med list listed as being on Entresto however thinks he is on lisinopril, will need to clarify however given TONNY will hold in the meantime either way # Right lower extremity cellulitis -Has some chronic wounds but worsening cellulitic changes of right lower extremity -Will start patient on Unasyn, no drainage suggestive of purulence, do not suspect MRSA coverage indicated at this time # Generalized weakness -Suspect secondary to dehydration given elevated BUN and creatinine and right lower extremity cellulitis -IVF -PT/OT #Type 2 diabetes mellitus -Glucose checks and sliding scale insulin -Will continue patient's U-500 however at lower dose, can escalate if glucoses remain elevated #SEBASTIAN -Continue home NIPPV if applicable #GERD -Continue PPI #Chronic BPH with obstruction -Continue home medications # Depression -Continue home sertraline # History of CVA/CAD -Cont aspirin and statin -Cont BB, med list lists metoprolol tartrate however on discussion with sounded as though patient was metoprolol succinate. Continue metoprolol succinate, Wilfredo clarified prior to discharge #DVT ppx: Lovenox subcu Emely Nava MD Time spent in the patient's overall evaluation,decision-making process, review of diagnostic data, adjustment of management, discussion with other providers, nursing nursing and ancillary staff involved in patient's care documentation, 57 Minutes Charges/Coding Visit Charges Inpatient E&M: 07823 Init Hosp L2
[2024-02-10] MEDS: Ceftriaxone 1 GM/50 ML BAG IV (17:29)
[2024-02-10 19:02] VITALS: BMI 34.6
[2024-02-10 19:41] VITALS: BP 146/77; PULSE 77; RESP 16; TEMP 36.6; O2SAT 98
[2024-02-10] MEDS: 0.9% Normal Saline (1000mL) 1,000 ML 75 ML IV (19:51)
[2024-02-10] MEDS: Tamsulosin HCl 0.4 MG Capsule 0.8 MG PO (22:21)
[2024-02-10] MEDS: Atorvastatin Calcium 40 MG Tablet PO (22:22)
[2024-02-10] MEDS: Heparin Injection (Vial) 5,000 UNIT/ML VIAL 5000 UNIT SC (22:22)
[2024-02-10] MEDS: Insulin Lispro 100 UNIT/ML INSULN.PEN SC (22:25)
[2024-02-10 22:51] LABS: Bedside Glucose 221 mg/dL (74-106)
[2024-02-11 05:05] VITALS: BP 155/85; PULSE 83; RESP 16; TEMP 36.6; O2SAT 97
[2024-02-11 05:06] VITALS: BMI 33.7
[2024-02-11] MEDS: Ampicillin/Sulbactam 3 GM in 0.9% Normal Saline (100mL MB+) 100 ML IV ×3 (05:19→19:43)
[2024-02-11] MEDS: Insulin Lispro 100 UNIT/ML INSULN.PEN SC ×3 (05:20→17:00)
[2024-02-11 07:05] LABS: Absolute Lymphocyte Count 0.97 X10^3/uL (0.83-4.51); Absolute Neutrophil Count 4.3 X10^3/uL (2.0-7.7); Basophil# 0.03 X10^3/uL; Basophil% 0.5 % (0-1); Eosinophil# 0.12 X10^3/uL; Hematocrit 37.9 % (40-54); Hemoglobin 12.6 g/dL (13.0-16.5); Lymphocyte # 0.97 X10^3/ul (0.83-4.51); Lymphocyte % 16.4 % (19-41); Mean Corp Hgb Conc 33.2 g/dL (32-36); Mean Corpuscular Hgb 29.3 pg (27.0-32.0); Mean Corpuscular Volume 88.1 fL (80-94); Mean Platelet Vol. 10.6 fl (6.2-12.0); Monocyte% 8.5 % (0-10); NRBC Flagged by Analyzer 0 % (0-5); Neutrophil # 4.26 X10^3/uL (2.7-7.7); Neutrophil % 72.3 % (47-70); Platelet Count 134 K/mm3 (150-450); RBC Distribution Width CV 12.3 % (11.6-14.6); RBC Distribution Width SD 39.8 fl (35.1-43.9); White Blood Count 5.9 K/mm3 (4.4-11.0)
[2024-02-11 07:31] LABS: Anion Gap 7 (5-15); BUN 31 mg/dL (7-18); BUN/Creat Ratio 22.8 RATIO (10-20); Calcium,Total 8.7 mg/dL (8.5-10.1); Chloride 104 mmol/L (98-107); Creatinine, Serum 1.36 mg/dL (0.70-1.30); EST Glomerular Filtration Rate 55 mL/min (>60); Est Glom Filt Rate - Afr Amer 67 mL/min (>60); Estimated Creatinine Clearance 56.93 ml/min; Glucose 229 mg/dL (74-106); Magnesium 2.6 mg/dL (1.6-2.6); Potassium 4.5 mmol/L (3.5-5.1); Sodium Level 135 mmol/L (136-145)
[2024-02-11 07:41] LABS: International Normalized Ratio 1.1; Prothrombin Time (Protime)PT. 13.7 SECONDS (11.7-14.9)
[2024-02-11 08:05] LABS: Bedside Glucose 233 mg/dL (74-106)
--- NOTE | 2024-02-11 08:56 | CASEMGMT ---
Social Work- Pt has directives on chart naming Viji, , as primary agent and Irwin, son, as secondary agent on chart. ANA Gifford
[2024-02-11] MEDS: Insulin U-500 UNITS/ML PEN 70 UNITS SC ×2 (09:02→17:01)
[2024-02-11] MEDS: Aspirin 81 MG TAB.CHEW PO (09:04)
[2024-02-11 09:12] LABS: Hemoglobin A1c 9.8 % (3.8-5.6)
[2024-02-11 09:15] VITALS: BP 120/68; PULSE 84; RESP 18; TEMP 36.9; O2SAT 95
[2024-02-11 09:17] VITALS: BP 120/68; PULSE 84
[2024-02-11] MEDS: Metoprolol(XL)Succ 25 MG Tablet PO (09:17)
[2024-02-11] MEDS: amLODIPine 5 MG Tablet PO (09:17)
[2024-02-11] MEDS: Nortriptyline 10 MG Capsule 30 MG PO (09:17)
[2024-02-11] MEDS: Heparin Injection (Vial) 5,000 UNIT/ML VIAL 5000 UNIT SC ×2 (09:18→21:22)
[2024-02-11] MEDS: Sertraline 100 MG Tablet PO (09:18)
[2024-02-11] MEDS: Acetaminophen 325 MG Tablet 650 MG PO ×2 (09:21→19:49)
--- NOTE | 2024-02-11 10:10 | CASEMGMT ---
RN JENNIFER PROPERTY UTILIZATION OFFICER JENNIFER?to room to meet with patient for initial transition planning/care coordination assessment. RN JENNIFER?introduced self and role at [facility]. Pt voices understanding and consents to assessment?at this time. Pt sitting up in chair in no distress at this time. Pt is A/O at this time and answers all questions appropriately. Care providers, pharmacy, and demographics verified/updated at this time. Strata:?3 PCP: [facility] Specialists: drying can worker, diving coach, and resolution specialist--all @ the [place] Preferred Pharmacy: [facility] Insurance:DZZOM, [facility] A/B, [place] Prescription Benefit: Yes LNOK: , Viji. Step-son, Irwin Living Arrangements: Lives w/ and step-son, Irwin, in one-story townhouse w/no steps to enter. assists pt w/ADL's (bathing/dressing), manages pt's medications, and does all IADL's. Transportation: DME: States has the following DME:shower chair, RTS, cane, rollator, W/C, knee scooter, CPAP, CGM/Lea 3. Pt states he is out of the transmitters, but they have been ordered and they are awaiting delivery. He is using back-up glucometer until transmitters arrive. He states has sufficient supply of insulin and needles. He has all pills needed, except ran out of gabapentin and his is in the process of getting this refilled. Pt would like info on medical alert. GUERDA Mcbride RN, CM, made aware. Pt states no need for further DME at this time. HHC/SNF: Pt has been to [facility] and [facility] in the past. Pt's last admit to [facility] was 01/05/24. He states he was only there for about a week before discharging home. Hx of [facility]. He states he is active w/[facility] and would like to resume [place] them [place]. He denies wanting list of other HHC options. GUERDA Mcbride RN, CM, made aware. Pt wishes to return home and states has no concerns with going home at time of discharge. CM?to follow for any further discharge planning/needs. Pt voices no further concerns/needs at this time. Advised pt to ask for CM?if any further questions/concerns/needs arise. Voices understanding. PLAN: Home w/[facility] Vijay HUIZARN RN CM
--- NOTE | 2024-02-11 10:52 | CASEMGMT ---
Per handoff, pt is requesting a list of other HH providers and medic alert information. TRE CM into pt room, pt provided with [facility] medic alert pamphlet and handout of other companies who provide. Pt also provided a list of C providers including quality and resource use data and consistent with the patient?s preferred geographic region, medical needs, and insurance network were provided from the [employer] Guide. Pt denies any further needs at this time.
[2024-02-11] MEDS: 0.9% Saline Lock 10 ML Syringe IV (13:10)
[2024-02-11] MEDS: 0.9% Normal Saline (250mL Bag) 250 ML 15 ML IV (13:13)
[2024-02-11 13:20] LABS: Bedside Glucose 212 mg/dL (74-106)
[2024-02-11 15:36] VITALS: BP 127/61; PULSE 76; RESP 16; TEMP 36.7; O2SAT 94
[2024-02-11 16:32] LABS: Bedside Glucose 199 mg/dL (74-106)
[2024-02-11] MEDS: Tamsulosin HCl 0.4 MG Capsule 0.8 MG PO (18:25)
--- NOTE | 2024-02-11 18:49 | PN.HOSP_ITS ---
Reason for Visit Reason for Visit: Diagnoses Cellulitis, unspecified (02/10/24) Subjective Subjective Patient was seen and examined today, his creatinine has improved, he still has redness and warmth over the his right lower leg particularly on the lateral aspect. I talked briefly with his by phone about his medications. She confirmed he is no longer taking Entresto. Objective Data Objective Data Vital Signs: Vital Signs Temp Pulse Resp BP Pulse Ox O2 Del Method 98.1 F 76 16 127/61 H 94 Room Air 02/11/24 15:36 02/11/24 15:36 02/11/24 15:36 02/11/24 15:36 02/11/24 15:36 02/11/24 16:00 Oxygen Delivery Method Room Air Weight: 95.2 kg Body Mass Index (BMI) 33.7 Intake & Output: Intake and Output for Last 24 Hours 02/09/24 02/10/24 02/11/24 23:59 23:59 23:59 Intake Total 1450 / 1450 2074 / 2074 Output Total 750 / 750 Balance 1450 / 1450 1324 / 1324 Lab / Micro Data 02/11/24 06:29 02/11/24 06:29 Labs: Laboratory Results - last 24 hr 02/10/24 22:19: POC Glucose 221 H 02/11/24 05:18: POC Glucose 233 H 02/11/24 06:29: WBC 5.9, RBC 4.30 L, Hgb 12.6 L, Hct 37.9 L, MCV 88.1, MCH 29.3, MCHC 33.2, RDW Std Deviation 39.8, RDW Coeff of Eben 12.3, Plt Count 134 L, MPV 10.6, Immature Gran % (Auto) 0.300, Neut % (Auto) 72.3 H, Lymph % (Auto) 16.4 L, [place] % (Auto) 8.5, Eos % (Auto) 2.0, Baso % (Auto) 0.5, Absolute Neuts (auto) 4.3, Absolute Lymphs (auto) 0.97, Nucleated RBC % 0, PT 13.7, INR 1.1, Sodium 135 L, Potassium 4.5, Chloride 104, Carbon Dioxide 24.0, Anion Gap 7, BUN 31 H, Creatinine 1.36 H, Estim Creat Clear Calc 56.93, Est GFR (MDRD) Af Amer 67, Est GFR (MDRD) Non-Af 55 L, BUN/Creatinine Ratio 22.8 H, Glucose 229 H, Hemoglobin A1c 9.8 H, Calcium 8.7, Magnesium 2.6 02/11/24 13:00: POC Glucose 212 H 02/11/24 16:13: POC Glucose 199 H Physical Exam Const alert, oriented x3, no apparent distress, average body habitus and healthy appearing General Appearance: cooperative, well kempt and well developed Orientation / Consciousness: awake, oriented to person, oriented to place and oriented to time HEENT normocephalic and moist oral mucous membranes Eyes PERRL, EOMs intact bilaterally and conjunctivae normal Neck supple, no JVD, thyroid normal and no carotid bruits General: trachea midline Resp normal respiratory effort and clear to auscultation bilaterally Auscultation: Negative for rales, rhonchi or wheezes Cardio regular rate, regular rhythm, no murmurs, no rub and no gallops GI normal to inspection, nondistended, normoactive bowel sounds, soft to palpation, non-tender and non-distended Extremity Extremity Narrative: There is generalized edema noted over both lower extremities more so on the right, there is redness and induration with warmth over the lateral aspect of the right lower leg. Skin Skin Narrative: Patient has a reddened area over the right lower leg particularly on the lateral aspect Neuro oriented x3, CN's II-XII intact bilaterally, moves all extremities, no focal motor deficits and no sensory deficits noted Sensorium / Orientation: awake and alert Speech: speech normal Psych affect normal Assessment & Plan Assessment/Plan (1) Cellulitis of leg, right: PLAN: Plan 1. Cellulitis of the right lower leg-patient has reddened areas over both lower extremities indicative of stasis dermatitis changes, the right lower leg however is more indurated and warm to the touch. Continue IV Unasyn at this time, evaluates patient tomorrow #2 generalized debility-PT and OT are seeing the patient #3 acute kidney injury-patient's creatinine is improved today, I have elected to restart his spironolactone, metoprolol, and lisinopril #4 type 2 diabetes-patient's blood sugars will be monitored, sliding scale insulin will be administered as needed Total clinical time spent by myself addressing the patient's medical issues, reviewing all of his data, and collaborating with patient's care team: 35 minutes Charges/Coding Visit Charges Inpatient E&M: 64557 Subs Hosp L2
[2024-02-11] MEDS: Pregabalin 50 MG Capsule PO (21:21)
[2024-02-11] MEDS: Atorvastatin Calcium 40 MG Tablet PO (21:23)
[2024-02-11 22:45] LABS: Bedside Glucose 138 mg/dL (74-106)
[2024-02-12] MEDS: Ampicillin/Sulbactam 3 GM in 0.9% Normal Saline (100mL MB+) 100 ML IV ×3 (00:41→12:14)
[2024-02-12] MEDS: 0.9% Saline Lock 10 ML Syringe IV ×2 (00:41→06:27)
[2024-02-12 02:11] VITALS: BP 152/71; PULSE 75; RESP 16; TEMP 36.4; O2SAT 93
[2024-02-12 06:00] VITALS: BMI 33.6
[2024-02-12 06:20] VITALS: BP 159/82; PULSE 68; RESP 18; TEMP 36.3; O2SAT 100
[2024-02-12 06:58] LABS: Bedside Glucose 78 mg/dL (74-106)
[2024-02-12] MEDS: Insulin U-500 UNITS/ML PEN 70 UNITS SC (08:10)
[2024-02-12] MEDS: Aspirin 81 MG TAB.CHEW PO (08:10)
[2024-02-12 09:07] VITALS: BP 146/81; PULSE 77; RESP 18; TEMP 36.6; O2SAT 97
[2024-02-12] MEDS: Nortriptyline 10 MG Capsule 30 MG PO (09:11)
[2024-02-12 09:12] VITALS: BP 146/81; PULSE 77
[2024-02-12] MEDS: Sertraline 100 MG Tablet PO (09:12)
[2024-02-12] MEDS: amLODIPine 5 MG Tablet PO (09:12)
[2024-02-12] MEDS: Metoprolol(XL)Succ 25 MG Tablet PO (09:12)
[2024-02-12] MEDS: Heparin Injection (Vial) 5,000 UNIT/ML VIAL 5000 UNIT SC (09:13)
[2024-02-12] MEDS: Spironolactone 25 MG Tablet PO (09:15)
[2024-02-12] MEDS: Lisinopril 40 MG Tablet PO (09:15)
[2024-02-12] MEDS: Pregabalin 50 MG Capsule PO (09:17)
[2024-02-12 12:02] LABS: Bedside Glucose 147 mg/dL (74-106)
[2024-02-12] MEDS: Acetaminophen 325 MG Tablet 650 MG PO (12:13)
[2024-02-12] MEDS: Insulin Lispro 100 UNIT/ML INSULN.PEN SC (12:14)
--- NOTE | 2024-02-12 13:26 | DCINST_ITS ---
Discharge Instructions Diet Discharge Diet: No restrictions Activity Discharge Activity: Return to Normal Activity Weight Bearing Status: Full weight bearing Follow Up Care Test Results: Test results from this visit will be discussed in further detail at your follow- up appointment, if applicable. Discharge Plan Admission Admit Date/Time: 02/10/24 17:21 Primary Reason for Your Visit: cellulitis Attending Provider: Stevenson Rodriguez Primary Care Provider: [facility] Consulting Providers: Emely Nava Instructions Additional Instructions / Restrictions: start your home antibiotics tomorrow Discharge Orders/Prescriptions Prescriptions: New cefdinir 300 mg capsule 300 mg PO BID Qty: 14 0RF Continued amlodipine 10 mg tablet 5 mg PO DAILY Entresto 49-51 mg tablet 1 tab PO BID Qty: 180 3RF nortriptyline 10 MG capsule 30 mg PO DAILY aspirin 81 MG tablet,chewable 81 mg PO DAILY acetaminophen 500 mg Tablet 1,000 mg PO Q6H PRN PRN (Reason: Pain Score 1-10) Qty: 1 0RF magnesium chloride [Mag 64] 64 mg Tablet,Delayed Release (Dr/Ec) 128 mg PO BID Qty: 60 0RF metoclopramide HCl [Reglan] 10 mg tablet 10 mg PO Q6H PRN (Reason: nausea and vomiting) Qty: 10 0RF atorvastatin [Lipitor] 40 mg tablet 40 mg PO QHS furosemide 20 mg tablet 20 mg PO DAILY spironolactone [Aldactone] 25 mg tablet 25 mg PO DAILY sertraline 100 mg tablet 100 mg PO DAILY melatonin 3 mg Tablet 3 mg PO QHS PRN PRN (Reason: Insomnia) Qty: 0 0RF tamsulosin 0.4 mg Capsule 0.8 mg PO DAILY@1730 Qty: 0 0RF Humulin R U-500 (Conc) Kwikpen 500 unit/mL (3 mL) Insulin Pen 90 unit subcut BID metoprolol succinate 25 mg tablet extended release 24 hr 25 mg PO DAILY pregabalin [Lyrica] 50 mg capsule 50 mg PO BID empagliflozin 25 mg tablet 25 mg PO DAILY Rx Instructions: patient takes 1/2 tablet daily lisinopril 40 mg tablet 40 mg PO DAILY Referrals / Follow Up: [facility] [Primary Care Provider] - Disposition Disposition (needs filled in before D/C Order can be placed): Home Health Service
--- NOTE | 2024-02-12 13:33 | PCM.DC.SUM ---
Providers Date of Admission: 02/10/24 Date of Discharge: 02/12/24 Primary Care Physician: [facility] Reason For Visit: CELLULITIS RLE, TONNY Diagnosis Discharge Diagnosis (1) Cellulitis of leg, right: Status: Acute Code(s): L03.115 - Cellulitis of right lower limb Plan 1. Cellulitis of the right lower leg-patient has reddened areas over both lower extremities indicative of stasis dermatitis changes, the right lower leg however is more indurated and warm to the touch. Continue IV Unasyn at this time, evaluates patient tomorrow #2 generalized debility-PT and OT are seeing the patient #3 acute kidney injury-patient's creatinine is improved today, I have elected to restart his spironolactone, metoprolol, and lisinopril #4 type 2 diabetes-patient's blood sugars will be monitored, sliding scale insulin will be administered as needed Total clinical time spent by myself addressing the patient's medical issues, reviewing all of his data, and collaborating with patient's care team: 35 minutes Medications at Discharge Home Medications nortriptyline 10 mg capsule 30 mg PO DAILY migraines 10/05/16 aspirin 81 mg chewable tablet 81 mg PO DAILY heart health 08/17/19 acetaminophen 500 mg tablet 1,000 mg (2 x 500 mg) PO Q6H PRN PRN Pain Score 1-10 #1 TAB 04/16/22 magnesium chloride 64 mg (magnesium chloride) tablet,delayed release (Mag 64) 128 mg (2 x 64 mg) PO BID supplement #60 tabs 04/16/22 amlodipine 10 mg tablet 5 mg PO DAILY blood pressure 04/30/22 sacubitril 49 mg-valsartan 51 mg tablet (Entresto) 1 tab PO BID blood pressure #180 tabs 04/30/22 metoclopramide HCl 10 mg tablet (Reglan) 10 mg PO Q6H PRN nausea and vomiting #10 tabs 04/27/23 atorvastatin 40 mg tablet (Lipitor) 40 mg PO QHS cholesterol 12/30/23 furosemide 20 mg tablet 20 mg PO DAILY blood pressure 12/30/23 sertraline 100 mg tablet 100 mg PO DAILY depression 12/30/23 spironolactone 25 mg tablet (Aldactone) 25 mg PO DAILY blood pressure 12/30/23 melatonin 3 mg tablet 3 mg PO QHS PRN PRN Insomnia #0 tabs 01/05/24 tamsulosin 0.4 mg capsule 0.8 mg (2 x 0.4 mg) PO DAILY@1730 #0 caps 01/05/24 empagliflozin 25 mg tablet 25 mg PO DAILY diabetes 02/10/24 insulin regular hum U-500 conc 500 unit/mL(3 mL) subcut pen (Humulin R U-500 (Conc) Insulin Kwikpen) 90 unit subcut BID diabetes 02/10/24 lisinopril 40 mg tablet 40 mg PO DAILY blood pressure 02/10/24 metoprolol succinate 25 mg tablet,extended release 24 hr 25 mg PO DAILY blood pressure 02/10/24 pregabalin 50 mg capsule (Lyrica) 50 mg PO BID neuropathy 02/10/24 cefdinir 300 mg capsule 300 mg PO BID #14 caps 02/12/24 Hospital Course Operations None Procedures None Summary of Care Provided Minutes Spent on Discharge: 31 Hospital Course: This 68-year-old white male was seen in the emergency room at [facility] with complaints of a reddened area over the patient's right lower leg with warmth and tenderness. Patient also complained of generalized fatigue. Workup in the emergency room included labs which were abnormal for a creatinine of 1.91, BUN was 38, patient's white blood cell count was normal. Patient was admitted to [place] [address] for cellulitis of the right lower extremity, he was placed on IV antibiotics and given IV fluids, he was seen by PT and OT. Patient was active as an outpatient with PT and OT. The appearance of the patient's right lower leg improved during his hospitalization, on 02/12/2024, patient was seen and examined: On examination he appeared in good health and spirits. Vital signs as documented. Skin warm and dry and without overt rashes. Neck without JVD, neck was supple, trachea midline, thyroid was normal. Lungs clear bilaterally, normal air movement was noted. Heart exam notable for regular rhythm, normal sounds and absence of murmurs, rubs or gallops. Abdomen unremarkable and without evidence of organomegaly, masses, or abdominal aortic enlargement. Bowel sounds are present, abdomen is not distended. Extremities-there is evidence of edema in both lower legs, there is evidence of stasis dermatitis in both lower legs, there was evidence of increased redness of the right lower leg, no cyanosis was noted, no clubbing was noted. Neuro: Cranial nerves II through XII are grossly intact, no focal motor deficits were noted, sensation to light touch and pinprick intact, motor exam 5/5 throughout. Psych: Patient is alert and oriented x3, he does not appear anxious or depressed, he does not appear agitated. On 02/12/2024, patient was seen and examined and felt to be in stable condition for discharge home Weight / BMI Weight Weight: 95 kg Body Mass Index (BMI) 33.6 ABG / Lab / Microbiology Data 02/11/24 06:29 02/11/24 06:29 Laboratory: Laboratory Results - last 24 hr 02/11/24 16:13: POC Glucose 199 H 02/11/24 21:21: POC Glucose 138 H 02/12/24 06:23: POC Glucose 78 02/12/24 11:33: POC Glucose 147 H D/C Instructions Discharge Diet: No restrictions Weight Bearing Status: Full weight bearing Meaningful Use Info Meaningful Use Meaningful Use Diagnoses (Choose all that apply): None applicable Ischemic Stroke Statin Dosing Therapy Reference: STATIN DOSE THERAPY REFERENCE: * Patients > 75 years receive moderate or high dose statin therapy. * Patients 75 years or YOUNGER should receive HIGH intensity statin dose unless contraindicated. You will be required to document reason for non-treatment if statin daily dose does not meet guidelines. HIGH DOSE STATIN THERAPY DAILY Atorvastatin > than or = to 40 mg Rosuvastatin > than or = to 20 mg Amlodipine + Atorvastatin > than or = to 2.5/40 mg Ezetimibe + Simvastatin 10/80 mg Simvastatin 80mg Discharge Plan Admission Admit Date/Time: 02/10/24 17:21 Primary Reason for Your Visit: cellulitis Attending Provider: Stevenson Rodriguez Primary Care Provider: [facility] Consulting Providers: Emely Nava Instructions Additional Instructions / Restrictions: start your home antibiotics tomorrow Discharge Orders/Prescriptions Prescriptions: New cefdinir 300 mg capsule 300 mg PO BID Qty: 14 0RF Continued amlodipine 10 mg tablet 5 mg PO DAILY Entresto 49-51 mg tablet 1 tab PO BID Qty: 180 3RF nortriptyline 10 MG capsule 30 mg PO DAILY aspirin 81 MG tablet,chewable 81 mg PO DAILY acetaminophen 500 mg Tablet 1,000 mg PO Q6H PRN PRN (Reason: Pain Score 1-10) Qty: 1 0RF magnesium chloride [Mag 64] 64 mg Tablet,Delayed Release (Dr/Ec) 128 mg PO BID Qty: 60 0RF metoclopramide HCl [Reglan] 10 mg tablet 10 mg PO Q6H PRN (Reason: nausea and vomiting) Qty: 10 0RF atorvastatin [Lipitor] 40 mg tablet 40 mg PO QHS furosemide 20 mg tablet 20 mg PO DAILY spironolactone [Aldactone] 25 mg tablet 25 mg PO DAILY sertraline 100 mg tablet 100 mg PO DAILY melatonin 3 mg Tablet 3 mg PO QHS PRN PRN (Reason: Insomnia) Qty: 0 0RF tamsulosin 0.4 mg Capsule 0.8 mg PO DAILY@1730 Qty: 0 0RF Humulin R U-500 (Conc) Kwikpen 500 unit/mL (3 mL) Insulin Pen 90 unit subcut BID metoprolol succinate 25 mg tablet extended release 24 hr 25 mg PO DAILY pregabalin [Lyrica] 50 mg capsule 50 mg PO BID empagliflozin 25 mg tablet 25 mg PO DAILY Rx Instructions: patient takes 1/2 tablet daily lisinopril 40 mg tablet 40 mg PO DAILY Referrals / [facility] [[facility] Provider[facility] - Disposition Disposition (needs filled in before D/C Order can be placed): Home Health Service Charges/Coding Visit Charges Inpatient E&M: 78056 Disch Hosp >30min
[2024-02-12] MEDS: Cefdinir 300 MG Capsule 600 MG PO (13:53)
[2024-02-12 14:08] VITALS: BP 155/89; PULSE 77; RESP 16; TEMP 36.7; O2SAT 97
--- NOTE | 2024-02-12 14:28 | CASEMGMT ---
RN CM into pt room, pt still is agreeable to [facility] and is ready for dc. TC to Jinny at [facility], she is aware pt will be dc'd today. plans to see pt tomorrow. Updated pt.
== END 2024-02-12 16:46 | disposition home health service (06) | DRG 603 ==
LOC: ED 16:22 → MS3 17:09
PROVIDERS: Admitting Provider Internal Medicine; Emergency Provider Emergency Medicine; Visit Provider Internal Medicine
DX: L03.115 Cellulitis of right lower limb (principal); I69.854 Hemiplegia and hemiparesis following other cerebrovascular disease affecting left non-dominant side; N17.9 Acute kidney failure, unspecified; N13.8 Other obstructive and reflux uropathy; E11.42 Type 2 diabetes mellitus with diabetic polyneuropathy; I10 Essential (primary) hypertension; F32.A Depression, unspecified; E03.9 Hypothyroidism, unspecified; E78.5 Hyperlipidemia, unspecified; G47.33 Obstructive sleep apnea (adult) (pediatric); G43.909 Migraine, unspecified, not intractable, without status migrainosus; K21.9 Gastro-esophageal reflux disease without esophagitis; E11.65 Type 2 diabetes mellitus with hyperglycemia; Z79.4 Long term (current) use of insulin; E55.9 Vitamin D deficiency, unspecified; I25.10 Atherosclerotic heart disease of native coronary artery without angina pectoris; H54.7 Unspecified visual loss; F41.9 Anxiety disorder, unspecified; I87.2 Venous insufficiency (chronic) (peripheral); H91.93 Unspecified hearing loss, bilateral; Z82.3 Family history of stroke; Z87.891 Personal history of nicotine dependence; Z79.82 Long term (current) use of aspirin; G89.29 Other chronic pain; R53.1 Weakness; M81.0 Age-related osteoporosis without current pathological fracture; N40.1 Benign prostatic hyperplasia with lower urinary tract symptoms; R53.81 Other malaise
CPT/HCPCS: 36415; 71045; 80048; 80053; 81001; 82962; 83036; 83735; 84443; 84484; 85025; 85610; 93005; 97110; 97162; 97166; 97530; 99284; J7030; J7050; A4216; J0295

== ENCOUNTER 2024-04-04 16:50 | Emergency (ER) | payer OTHER, SELFPAY ==
[2024-04-04 16:50] VITALS: BP 137/78; PULSE 101; RESP 18; TEMP 36.8; O2SAT 99
[2024-04-04 18:50] VITALS: BP 148/80; PULSE 92; RESP 16; O2SAT 100
--- NOTE | 2024-04-04 18:57 | RAD_ITS ---
STUDY: XR Chest 1 View 04/04/2024 7:27 PM REASON FOR EXAM: Male, 69 years old. Vomiting with hyperglycemia COMPARISON: 8.27.24 TECHNIQUE: XR Chest 1 View FINDINGS: There is no demonstrated pleural abnormality. There is an elevated right hemidiaphragm. Normal heart size. Normal mediastinum. Normal orin. Prominent appearing increased interstitial lung markings. Normal visualized pulmonary arteries. There is atherosclerotic calcification of the aortic arch with tortuosity. There are diffuse degenerative changes of the visualized thoracic spine. There is degenerative osteoarthritis of the bilateral shoulders. There are no acute findings of the upper abdomen. RAD/Chest 1 View (Portable) IMPRESSION: There are no acute findings. Electronically Signed: Stef Lyles MD at 20:10 EDT ,
--- NOTE | 2024-04-04 19:04 | EX.ED.DYSGE1 ---
HPI History of Present Illness Chief Complaint: Hyperglycemia Narrative Narrative: Chief complaint and HPI: Hyperglycemia. 69-year-old male with history of DM2, HTN, HLD, CHF presents for evaluation of hyperglycemia and nausea and vomiting. Patient states yesterday he developed nausea and vomiting. He states he checked his blood sugar and it was in the 300s. He states his baseline is usually in the 200s or lower. He takes 95 units of insulin in the morning. He states he takes 70 units of insulin in the evening. He states that he checked his blood sugar again this afternoon and it was in the 300s. He states he does not come until now secondary to him not having a ride. He denies any fever, chills, shortness of breath, chest pain, cough, URI symptoms, abdominal pain, diarrhea, dysuria. He states he did develop a sore throat after the vomiting. Review of systems: See HPI Medications: As listed on the chart Allergies: As listed on the chart PFSH: Per chart Vital signs: As listed on the chart. Reviewed. Physical exam: Gen: A&O x3, NAD Head: Normocephalic, atraumatic Eyes: No sclera icterus, conjunctiva clear, PERRL, EOMI ENT: TMs clear BL, moist mucous membranes, posterior oropharynx unremarkable, uvula midline, tonsils not enlarged, no tonsillar exudate, poor dentition Neck: Trachea midline, No JVD, Full ROM, No meningismus CV: RRR, no murmurs, no peripheral edema Resp: Lungs CTA BL, no w/r/c GI: Abd soft, non-distended, non-tender, no r/r/g Musc: Full ROM, no deformity Skin: Warm, dry, no rash Neuro: Alert, oriented, grossly intact, sensation intact Psych: Cooperative, appropriate mood and affect [facility] Medical History Left-sided weakness Right pontine stroke Diabetic retinopathy Narcolepsy Depression Anxiety Diabetic polyneuropathy Vitamin D deficiency Migraine headache Obstructive sleep apnea Hyperlipidemia Coronary artery disease Ischemic stroke Hernia History of COVID-19 Vision loss of right eye Hearing loss, left Hearing loss, right Hypothyroidism Chronic pain Osteoporosis GERD (gastroesophageal reflux disease) GI bleed Former smoker CPAP (continuous positive airway pressure) dependence Sleep apnea Chest pain Elevated troponin Elevated lipase Myocardial infarct DM2 (diabetes mellitus, type 2) Essential (primary) hypertension Home Medications ?Medication ?Instructions ?Recorded ?Last Taken ?Type nortriptyline 10 mg capsule 30 mg PO DAILY migraines 10/05/16 02/10/24 History aspirin 81 mg chewable tablet 81 mg PO DAILY heart health 08/17/19 02/10/24 History acetaminophen 500 mg tablet 1,000 mg (2 x 500 mg) PO Q6H PRN 04/16/22 Unknown Rx PRN Pain Score 1-10 #1 TAB magnesium chloride 64 mg 128 mg (2 x 64 mg) PO BID 04/16/22 02/09/24 Rx (magnesium chloride) supplement #60 tabs tablet,delayed release (Mag 64) amlodipine 10 mg tablet 5 mg PO DAILY blood pressure 04/30/22 02/09/24 21:00 History sacubitril 49 mg-valsartan 51 mg 1 tab PO BID blood pressure #180 04/30/22 06/28/22 Rx tablet (Entresto) tabs metoclopramide HCl 10 mg tablet 10 mg PO Q6H PRN nausea and 04/27/23 Unknown Rx (Reglan) vomiting #10 tabs atorvastatin 40 mg tablet (Lipitor) 40 mg PO QHS cholesterol 12/30/23 02/09/24 History furosemide 20 mg tablet 20 mg PO DAILY blood pressure 12/30/23 02/10/24 History sertraline 100 mg tablet 100 mg PO DAILY depression 12/30/23 02/10/24 History spironolactone 25 mg tablet 25 mg PO DAILY blood pressure 12/30/23 02/10/24 History (Aldactone) melatonin 3 mg tablet 3 mg PO QHS PRN PRN Insomnia #0 01/05/24 Unknown Rx tabs tamsulosin 0.4 mg capsule 0.8 mg (2 x 0.4 mg) PO DAILY@1730 01/05/24 02/09/24 Rx #0 caps empagliflozin 25 mg tablet 25 mg PO DAILY diabetes 02/10/24 02/10/24 History insulin regular hum U-500 conc 500 90 unit subcut BID diabetes 02/10/24 02/10/24 History unit/mL(3 mL) subcut pen (Humulin R U-500 (Conc) Insulin Kwikpen) lisinopril 40 mg tablet 40 mg PO DAILY blood pressure 02/10/24 02/10/24 History metoprolol succinate 25 mg 25 mg PO DAILY blood pressure 02/10/24 02/09/24 History tablet,extended release 24 hr pregabalin 50 mg capsule (Lyrica) 50 mg PO BID neuropathy 02/10/24 02/10/24 History cefdinir 300 mg capsule 300 mg PO BID #14 caps 02/12/24 Unknown Rx Allergy/AdvReac Type Severity Reaction Status Date / Time No Known Allergies Allergy Verified 04/04/24 16:54 Family History Mother Diabetes Father Heart disease CVA (cerebral vascular accident) Surgical History History of hernia surgery History of cholecystectomy History of back surgery Social History household members: spouse and children housing: apartment current occupational status: disabled Smoking Status: Former smoker Tobacco: How many years used: 30 how long ago did patient quit smokin alcohol intake: never substance use type: does not use diet: diabetic caffeine: Yes Type: coffee Number of servings: 1 what type of physical activity do you participate in: walking EXAM Physical Exam Const Vital Signs: 04/04/24 16:50 04/04/24 17:42 04/04/24 18:50 Temperature 98.3 F Temperature Source Oral Pulse Rate 101 H 92 Respiratory Rate 18 16 Respiratory Effort Normal Non-Labored Respiratory Pattern Normal Blood Pressure 137/78 H 148/80 H Blood Pressure Mean 97 102 Pulse Ox 99 100 Oxygen Delivery Method Room Air Room Air 04/04/24 20:00 04/04/24 20:49 Temperature 97.8 F Temperature Source Pulse Rate 86 85 Respiratory Rate 18 18 Respiratory Effort Respiratory Pattern Blood Pressure 163/94 H 177/96 H Blood Pressure Mean 117 123 Pulse Ox 99 98 Oxygen Delivery Method Room Air MDM MDM MDM Narrative Medical decision making narrative: 69-year-old male who is a type II diabetic presents for evaluation of nausea and vomiting with hyperglycemia. Differential diagnosis includes but is not limited to viral illness, symptomatic hyperglycemia, pneumonia, UTI, electrolyte abnormality, TONNY, HSS. Zofran and 500 cc NS bolus ordered. Diabetic and infectious workup ordered. Chest x-ray and EKG reviewed, see below. CBC without leukocytosis or anemia. VBG without acidosis. Acetone negative. Glucose is mildly elevated at 166. Patient is not in HHS or DKA. CMP relatively unremarkable. Patient has mild ALT elevation at 82. He has baseline renal insufficiency with a creatinine of 1.48. Lipase elevated at 809. Patient not having any abdominal pain. He is nontender on physical exam. On chart review, patient has had elevated lipase in the past. Patient not clinically presenting like pancreatitis. UA positive for glucose but negative for UTI. On reevaluation, patient states his nausea has improved. He has not had any vomiting. He again denies any abdominal pain and is nontender on physical exam. He was able to tolerate p.o. intake without abdominal pain or nausea and vomiting. Patient and his family member were updated on all the results. They were informed that the patient's lipase was elevated and that this can be concerning for pancreatitis however given that patient is not having any abdominal pain and is eating and drinking patient will be discharged home. Return precautions were explained. Patient needs to continue to monitor his sugars at home. He is minimally hyperglycemic here. Follow-up with PCP. They confirmed understand the plan. EKG: Interpreted by me/EM physician: EKG shows normal sinus rhythm with known right bundle branch block. Heart rate 84. This was compared to previous EKG and similar. Diagnostic: Interpreted by me/EM physician: Chest x-ray without pneumonia, effusion, pneumothorax, cardiomegaly Impression: 1. Hyperglycemia with known type 2 diabetes 2. Nausea and vomiting 3. Elevated lipase 4. Renal insufficiency Lab Data Labs: Laboratory Results - last 24 hr 04/04/24 04/04/24 19:25 20:05 WBC 9.3 RBC 5.39 Hgb 15.8 Hct 45.7 MCV 84.8 MCH 29.3 MCHC 34.6 RDW Std Deviation 37.3 RDW Coeff of Eben 12.3 Plt Count 179 MPV 10.2 Immature Gran % (Auto) 0.300 Neut % (Auto) 79.7 H Lymph % (Auto) 11.8 L [place] % (Auto) 7.5 Eos % (Auto) 0.3 Baso % (Auto) 0.4 Absolute Neuts (auto) 7.4 Absolute Lymphs (auto) 1.10 Nucleated RBC % 0 Sodium Cancelled Potassium Cancelled Chloride Cancelled Carbon Dioxide Cancelled Anion Gap Cancelled BUN Cancelled Creatinine Cancelled Estim Creat Clear Calc Cancelled Est GFR (MDRD) Af Amer Cancelled Est GFR (MDRD) Non-Af Cancelled BUN/Creatinine Ratio Cancelled Glucose Cancelled Calcium Cancelled Total Bilirubin Cancelled AST Cancelled ALT Cancelled Alkaline Phosphatase Cancelled Total Protein Cancelled Albumin Cancelled Globulin Cancelled Albumin/Globulin Ratio Cancelled Lipase Cancelled Urine Color Yellow Urine Clarity Clear Urine pH 6.0 Ur Specific [place] 1.015 Urine Protein 30 H Urine Glucose (UA) 1000 H Urine Ketones 15 H Urine Occult Blood 10 H Urine Nitrite Negative Urine Bilirubin Negative Urine Urobilinogen Normal Ur Leukocyte Esterase Negative Urine RBC 0-5 SEEN Urine WBC 0 SEEN Ur Squamous Epith Cells 0 SEEN Urine Bacteria 0 SEEN Urine Mucus 0 SEEN Acetone Level NEGATIVE ABG Data ABG results: ABG 04/04/24 20:11 Specimen Type TARIK Sample Site Not entered VBG pH 7.37 VBG pO2 51 H VBG HCO3 31 H VBG Total CO2 32 VBG O2 Sat (Calc) 84 H VBG Base Excess 5 H POC Mix VBG pCO2 Pt Tmp 52.7 H O2 Delivery Device Room Air Radiography Diagnostic Testing: Clinical Impression(s) from Imaging Studies Chest X-Ray 04/04/24 18:57 IMPRESSION: There are no acute findings. Electronically Signed: Stef Lyles MD at 20:10 EDT Reading Location ID and State: [facility] / [place] , Service support , Discharge Plan Triage Chief Complaint: Hyperglycemia ED Provider: Gilles Cowart Dx/Rx/DC Orders Clinical Impression: Hyperglycemia, Mild nausea and vomiting Instructions: How to Check Your Blood Sugar, Self-Care for Vomiting and Diarrhea, ED Diabetic Hyperglycemia Prescriptions: No Action amlodipine 10 mg tablet 5 mg PO DAILY Entresto 49-51 mg tablet 1 tab PO BID Qty: 180 3RF nortriptyline 10 MG capsule 30 mg PO DAILY aspirin 81 MG tablet,chewable 81 mg PO DAILY acetaminophen 500 mg Tablet 1,000 mg PO Q6H PRN PRN (Reason: Pain Score 1-10) Qty: 1 0RF magnesium chloride [Mag 64] 64 mg Tablet,Delayed Release (Dr/Ec) 128 mg PO BID Qty: 60 0RF metoclopramide HCl [Reglan] 10 mg tablet 10 mg PO Q6H PRN (Reason: nausea and vomiting) Qty: 10 0RF atorvastatin [Lipitor] 40 mg tablet 40 mg PO QHS furosemide 20 mg tablet 20 mg PO DAILY spironolactone [Aldactone] 25 mg tablet 25 mg PO DAILY sertraline 100 mg tablet 100 mg PO DAILY melatonin 3 mg Tablet 3 mg PO QHS PRN PRN (Reason: Insomnia) Qty: 0 0RF tamsulosin 0.4 mg Capsule 0.8 mg PO DAILY@1730 Qty: 0 0RF Humulin R U-500 (Conc) Kwikpen 500 unit/mL (3 mL) Insulin Pen 90 unit subcut BID metoprolol succinate 25 mg tablet extended release 24 hr 25 mg PO DAILY pregabalin [Lyrica] 50 mg capsule 50 mg PO BID empagliflozin 25 mg tablet 25 mg PO DAILY Rx Instructions: patient takes 1/2 tablet daily lisinopril 40 mg tablet 40 mg PO DAILY cefdinir 300 mg capsule 300 mg PO BID Qty: 14 0RF [facility] Referrals[place] [facility] [Primary Care Provider] - 3-5 Days Activity Restrictions/Additional Instructions: Return back to the emergency department if symptoms change or worsen Print Language: Ghanaian Disposition Disposition: Home, Self Care Discharge Date/Time: 04/04/24 20:55
[2024-04-04] MEDS: Ondansetron 4 MG/2 ML Vial IV (19:22)
[2024-04-04] MEDS: 0.9% Normal Saline (500mL Bag) 500 ML 1000 ML IV (19:30)
[2024-04-04 19:39] LABS: Absolute Neutrophil Count 7.4 X10^3/uL (2.0-7.7); Basophil# 0.04 X10^3/uL; Basophil% 0.4 % (0-1); Eosinophil# 0.03 X10^3/uL; Eosinophils% 0.3 % (0-5); Hematocrit 45.7 % (40-54); Hemoglobin 15.8 g/dL (13.0-16.5); Lymphocyte % 11.8 % (19-41); Mean Corp Hgb Conc 34.6 g/dL (32-36); Mean Corpuscular Hgb 29.3 pg (27.0-32.0); Mean Corpuscular Volume 84.8 fL (80-94); Mean Platelet Vol. 10.2 fl (6.2-12.0); Monocyte% 7.5 % (0-10); NRBC Flagged by Analyzer 0 % (0-5); Neutrophil # 7.44 X10^3/uL (2.7-7.7); Neutrophil % 79.7 % (47-70); Platelet Count 179 K/mm3 (150-450); RBC Distribution Width CV 12.3 % (11.6-14.6); RBC Distribution Width SD 37.3 fl (35.1-43.9); Red Blood Count 5.39 M/mm3 (4.6-6.2); White Blood Count 9.3 K/mm3 (4.4-11.0)
[2024-04-04 19:40] LABS: POSITIVE COUNT NO; POSITIVE DIFFERENTIAL NO; POSITIVE MORPHOLOGY NO
[2024-04-04 20:00] VITALS: BP 163/94; PULSE 86; RESP 18; O2SAT 99
[2024-04-04 20:12] LABS: ALB/GLOB Ratio 0.9 RATIO (0.9-2.4); AST(SGOT) 35 U/L (15-37); Alanine Aminotransfer ALT/SGPT 82 U/L (16-61); Albumin, Serum 4.2 g/dL (3.2-5.0); Alkaline Phosphatase 115 U/L (45-117); Anion Gap 7 (5-15); BUN 29 mg/dL (7-18); BUN/Creat Ratio 19.6 RATIO (10-20); Calcium,Total 9.8 mg/dL (8.5-10.1); Chloride 101 mmol/L (98-107); Creatinine, Serum 1.48 mg/dL (0.70-1.30); EST Glomerular Filtration Rate 50 mL/min (>60); Est Glom Filt Rate - Afr Amer 61 mL/min (>60); Globulin 4.8 g/dL (2.2-4.2); Glucose 166 mg/dL (74-106); Lipase 809 U/L (13-75); Potassium 4.2 mmol/L (3.5-5.1); Sodium Level 138 mmol/L (136-145)
[2024-04-04 20:14] LABS: Blood Gas Specimen Type VEN; O2 Delivery Device Room Air; SITE Not entered; VBG BASE EXCESS 5 mmol/L (-1.0-3.5); VBG Bicarbonate 31 mmol/L (22-26); VBG PO2 51 mmHg (25-40); VBG SO2 84 % (50-70); VBG TCO2 32 mmol/L (23-33); VBG pCO2 52.7 mmHg (41-51); VBG pH 7.37 (7.32-7.42)
[2024-04-04 20:27] LABS: Bacteria 0 SEEN /hpf (None Seen); Mucous, Urine 0 SEEN /hpf (<or=2+); Squamous Epithelial Cells - UA 0 SEEN /hpf (0-5); White Blood Cells 0 SEEN /hpf (0-5)
[2024-04-04 20:30] LABS: Color, Urine Yellow (Yellow); Glucose, Dipstick 1000 mg/dl (Normal); Ketone-Dipstick 15 mg/dl (Negative); Leukocyte Esterase-Dipstick Negative /ul (Negative); Nitrite-Dipstick Negative (Negative); Occult Blood-Urine 10 /ul (Negative); Protein-Dipstick 30 mg/dl (Negative); Specific Gravity, Urine 1.015 (1.002-1.030); Urine Bilirubin Dipstick Negative (Negative); Urine Clarity Clear (Clear); Urine Urobilinogen Normal (Normal)
[2024-04-04 20:36] LABS: Red Blood Cells-Urine 0-5 SEEN /hpf (0-5)
[2024-04-04 20:49] VITALS: BP 177/96; PULSE 85; RESP 18; TEMP 36.6; O2SAT 98
== END 2024-04-04 20:55 | disposition home or self-care (01) ==
PROVIDERS: Emergency Provider Surgery; Visit Provider Surgery
DX: E11.65 Type 2 diabetes mellitus with hyperglycemia (principal); E11.42 Type 2 diabetes mellitus with diabetic polyneuropathy; Z79.4 Long term (current) use of insulin; H54.7 Unspecified visual loss; E78.5 Hyperlipidemia, unspecified; F41.9 Anxiety disorder, unspecified; E55.9 Vitamin D deficiency, unspecified; G89.29 Other chronic pain; Z87.891 Personal history of nicotine dependence; H91.93 Unspecified hearing loss, bilateral; N28.9 Disorder of kidney and ureter, unspecified; I10 Essential (primary) hypertension; G43.909 Migraine, unspecified, not intractable, without status migrainosus; E03.9 Hypothyroidism, unspecified; G47.33 Obstructive sleep apnea (adult) (pediatric); I25.10 Atherosclerotic heart disease of native coronary artery without angina pectoris; M81.0 Age-related osteoporosis without current pathological fracture; Z86.16 Personal history of COVID-19; Z90.49 Acquired absence of other specified parts of digestive tract; R11.2 Nausea with vomiting, unspecified; Z99.89 Dependence on other enabling machines and devices
CPT/HCPCS: 71045; 80053; 81001; 82009; 82803; 83690; 85025; 87631; 93005; 96361; 96374; 99284; J7030; A4216; J2405

== ENCOUNTER 2024-04-05 13:47 | Emergency (ER) | payer OTHER, SELFPAY ==
[2024-04-05 13:47] VITALS: BP 140/73; PULSE 81; RESP 16; TEMP 36.4; O2SAT 100
--- NOTE | 2024-04-05 14:44 | CT_ITS ---
STUDY: CT ABDOMEN AND PELVIS WITH CONTRAST REASON FOR EXAM: Male, 69 years old. Pancreatitis, no history of alcohol, status post c RADIATION DOSAGE (If Supplied By Facility): CTDIvol = ( 17.64 ) mGy, DLP = ( 1238.95 ) mGycm TECHNIQUE: Transaxial images were obtained from the dome of the diaphragm to the symphysis pubis without oral contrast. IV 100mL Isovue-300 was administered. Sagittal and coronal images were reconstructed. Individualized dose optimization techniques were used for this CT. COMPARISON: None. FINDINGS: The visualized lung bases are unremarkable. The visualized portions of the heart are within normal limits. Normal liver. There are surgical clips in the gallbladder fossa consistent with a prior cholecystectomy. Normal spleen. Normal pancreas. Normal bilateral adrenal glands. Normal right kidney. Normal left kidney. Evaluation of the GI tract is limited by absence of oral contrast. Cannot exclude stomach wall thickening. No dilated loops of bowel or evidence for obstruction. Cannot exclude segmental thickening of the bhatti of the small or large bowel. Cannot exclude enteritis or colitis. Moderate diffuse fecal retention. Appendix within normal limits. There is diffuse atherosclerotic calcification of the abdominal aorta, without a demonstrated aneurysm. Normal inferior vena cava. Normal retroperitoneum. Normal urinary bladder. There is a small left-sided inguinal hernia containing adipose tissue. There are diffuse degenerative changes of the visualized lumbar spine. Compression fractures are seen of L1 and L4, probably old. CT/Abdomen/Pelvis W IV Cont ONLY IMPRESSION: No definite acute or significant abnormality seen. Electronically Signed: Jose Mcbride MD at 16:40 EDT ,
[2024-04-05] MEDS: 0.9% Normal Saline (1000mL) 1,000 ML 1000 ML IV (15:01)
[2024-04-05] MEDS: Ondansetron 4 MG/2 ML Vial IV (15:02)
[2024-04-05] MEDS: Morphine 4 MG/ML Syringe IV (15:02)
[2024-04-05 15:10] LABS: Hematocrit 43.3 % (40-54); Hemoglobin 14.4 g/dL (13.0-16.5); Mean Corp Hgb Conc 33.3 g/dL (32-36); Mean Corpuscular Hgb 28.9 pg (27.0-32.0); Mean Corpuscular Volume 86.9 fL (80-94); Mean Platelet Vol. 10.2 fl (6.2-12.0); Platelet Count 168 K/mm3 (150-450); RBC Distribution Width CV 12.6 % (11.6-14.6); RBC Distribution Width SD 39.7 fl (35.1-43.9); Red Blood Count 4.98 M/mm3 (4.6-6.2); White Blood Count 8.7 K/mm3 (4.4-11.0)
[2024-04-05 15:42] LABS: Anion Gap 7 (5-15); BUN 23 mg/dL (7-18); BUN/Creat Ratio 16.4 RATIO (10-20); Calcium,Total 9.2 mg/dL (8.5-10.1); Chloride 102 mmol/L (98-107); EST Glomerular Filtration Rate 54 mL/min (>60); Est Glom Filt Rate - Afr Amer 65 mL/min (>60); Glucose 130 mg/dL (74-106); Lipase 199 U/L (13-75); Potassium 3.9 mmol/L (3.5-5.1); Sodium Level 138 mmol/L (136-145)
[2024-04-05 15:47] VITALS: BP 165/91; PULSE 71
--- NOTE | 2024-04-05 16:02 | EX.ED.DYSGE1 ---
HPI History of Present Illness Chief Complaint: Nausea/Vomiting Detail of Chief Complaint: Upper epigastric/left upper quadrant abdominal pain with nausea and vomitin Informant: patient Onset/Context/Timing Onset: Yesterday (Lipase was greater than 800 yesterday.) Timing: Continuous and Intermittent Quality: Pain Location: Upper abdomen previously described Current Severity: Mild Maximum Severity: Moderate Worsened by: Palpation and movement Relieved by: Nothing Associated Symptoms Associated Symptoms: Nausea and vomiting Narrative Narrative: Patient is a 69-year-old male. He was seen yesterday for hyperglycemia and found to have an elevated lipase. Lipase at that time was 809. He is status postcholecystectomy. He has not had a any alcoholic beverage in decades. He is vomited several times since yesterday. He does endorse thirst, dry mouth and lightheadedness. Patient's creatinine yesterday was elevated 1.48. Patient's creatinine was normal January 12, 2024. It has varied between 1.36 and 1.91. He denies history of pancreatitis. He was seen today by Dr. Bridges who sent him to the ER for CAT scan of the abdomen. Patient does endorse decreased urine output. He denies dysuria, frequency, urgency or hematuria. He does have a history of diabetes, essential hypertension, hyperlipidemia and cardiomyopathy. Prior similar symptoms: Yes Recent Illness/Hospitalization: Yes [facility] Medical History Generalized weakness Cellulitis of leg, right Acute kidney injury Cellulitis Left-sided weakness Right pontine stroke Diabetic retinopathy Narcolepsy Depression Anxiety Diabetic polyneuropathy Vitamin D deficiency Migraine headache Obstructive sleep apnea Hyperlipidemia Coronary artery disease Ischemic stroke Hernia History of COVID-19 Vision loss of right eye Hearing loss, left Hearing loss, right Hypothyroidism Chronic pain Osteoporosis GERD (gastroesophageal reflux disease) GI bleed Former smoker CPAP (continuous positive airway pressure) dependence Sleep apnea Chest pain Elevated troponin Elevated lipase Myocardial infarct DM2 (diabetes mellitus, type 2) Essential (primary) hypertension Home Medications ?Medication ?Instructions ?Recorded ?Last Taken ?Type nortriptyline 10 mg capsule 30 mg PO DAILY migraines 10/05/16 02/10/24 History aspirin 81 mg chewable tablet 81 mg PO DAILY heart health 08/17/19 02/10/24 History acetaminophen 500 mg tablet 1,000 mg (2 x 500 mg) PO Q6H PRN 04/16/22 Unknown Rx PRN Pain Score 1-10 #1 TAB amlodipine 10 mg tablet 5 mg PO DAILY blood pressure 04/30/22 02/09/24 21:00 History atorvastatin 40 mg tablet (Lipitor) 40 mg PO QHS cholesterol 12/30/23 02/09/24 History furosemide 20 mg tablet 20 mg PO DAILY blood pressure 12/30/23 02/10/24 History spironolactone 25 mg tablet 25 mg PO DAILY blood pressure 12/30/23 02/10/24 History (Aldactone) tamsulosin 0.4 mg capsule 0.8 mg (2 x 0.4 mg) PO DAILY@1730 01/05/24 02/09/24 Rx #0 caps insulin regular hum U-500 conc 500 90 unit subcut BID diabetes 02/10/24 02/10/24 History unit/mL(3 mL) subcut pen (Humulin R U-500 (Conc) Insulin Kwikpen) lisinopril 40 mg tablet 40 mg PO DAILY blood pressure 02/10/24 02/10/24 History metoprolol succinate 25 mg 25 mg PO DAILY blood pressure 02/10/24 02/09/24 History tablet,extended release 24 hr empagliflozin 25 mg tablet 12.5 mg PO DAILY diabetes 04/05/24 Unknown History magnesium oxide 420 mg tablet 420 mg PO ONCE 04/05/24 Unknown History omega 1-rhy-liu-fish oil 300 1 cap PO BID 04/05/24 Unknown History mg-1,000 mg capsule,delayed release (Fish Oil) ondansetron 4 mg disintegrating 4 mg PO Q8H PRN PRN Nausea #10 tabs 04/05/24 Unknown Rx tablet pregabalin 50 mg capsule (Lyrica) 150 mg PO BID neuropathy 04/05/24 Unknown History sertraline 100 mg tablet 150 mg PO DAILY depression 04/05/24 Unknown History Allergy/AdvReac Type Severity Reaction Status Date / Time No Known Allergies Allergy Verified 04/05/24 13:25 Family History Mother Diabetes Father Heart disease CVA (cerebral vascular accident) Surgical History History of hernia surgery History of cholecystectomy History of back surgery Social History household members: spouse and children housing: apartment current occupational status: disabled Smoking Status: Former smoker Tobacco: How many years used: 30 how long ago did patient quit smokin alcohol intake: never substance use type: does not use diet: diabetic caffeine: Yes Type: coffee Number of servings: 1 what type of physical activity do you participate in: walking ROS ROS ED Constitutional Constitutional ED: Denies chills, fever(s), subjective or sweats Eyes Eyes: Denies blurry vision or change in vision ENT ENT ED: Denies ear pain, rhinorrhea or sore throat Cardiovascular Cardiovascular: Denies chest pain or palpitations Respiratory/Chest Respiratory/Chest: Denies cough, dyspnea or dyspnea on exertion Gastrointestinal Gastrointestinal: Reports nausea, vomiting and other Details: He denies hematemesis or coffee-ground emesis. ; Denies abdominal pain, constipation, diarrhea or melena Genitourinary Genitourinary ED: Denies dysuria, hematuria or urinary frequency Musculoskeletal Musculoskeletal: Denies back pain, myalgias or neck pain Integumentary Denies rash Neurologic Neurologic: Reports weakness Psychiatric Psychiatric: Denies anxiety or depression Endocrine Endocrinology: Denies cold intolerance or heat intolerance Hematologic/Lymphatic Hematologic/Lymphatic: Reports systems reviewed and no addt'l complaints, except as documented EXAM Physical Exam Const Vital Signs: 04/05/24 13:47 04/05/24 15:47 04/05/24 17:00 Temperature 97.5 F L Temperature Source Temporal Pulse Rate 81 71 Respiratory Rate 16 Blood Pressure 140/73 H 165/91 H 154/82 H Blood Pressure Mean 95 115 106 Pulse Ox 100 Oxygen Delivery Method Room Air Positive well nourished and well developed General Appearance ED: well developed and NAD; Negative for cyanotic, diaphoretic or pallor HEENT Reports dry mucous membranes HEENT Narrative: Head is atraumatic and normocephalic. Ears are normal. Nares are patent. he denies sore throat. Mouth ED: Yes dry mucous membranes Mouth: dry mucous membranes Eyes PERRL and EOMs intact bilaterally General Eye ED: Negative for pale conjunctiva or scleral icterus Neck no lymphadenopathy and supple Chest Wall inspection of chest normal and palpation of chest normal Resp normal respiratory effort and clear to auscultation bilaterally Cardio regular rate, regular rhythm, S1 normal heart sound, S2 normal heart sound and no murmurs GI non-distended; Negative for normal to inspection, nondistended, normoactive bowel sounds, non-tender or hepatosplenomegaly Inspection: Negative for abdominal distention Auscultation: hypoactive bowel sounds Palpation: soft and tender epigastric and LUQ; Negative for guarding, splenomegaly or mass Back/Spine no CVA tenderness Cervical Spine: Negative for cervical spine tenderness Thoracic Spine / Upper Back: Negative for thoracic spinal tenderness Lumbar Spine / Lower Back: Negative for lumbar spinal tenderness Extremity normal to inspection Extremity Narrative: Patient has stigmata of peripheral arterial disease. He has a wound that is healing without evidence infection. General Extremety ED: Negative for edema or tenderness General Extremity: Negative for edema Neuro oriented x3 and CN's II-XII intact bilaterally Sensorium / Orientation: alert Psych mental status grossly normal Skin no rashes or lesions noted, no wounds and skin turgor normal Skin Narrative: Patient has shiny skin. Absence of hair lower extremity exam area General Skin Exam: Negative for jaundice or pallor MDM MDM MDM Narrative Medical decision making narrative: Clinically patient is dehydrated. Since his creatinine has risen from baseline we will administer 1 L of normal saline. Lipase was repeated. CBC was obtained as well. Since Dr. Bridges did call down and requested a CAT scan this was ordered. Lab Data Attestation: I reviewed the patient's lab results. Lab results narrative: CBC is normal. Basic metabolic panel was elevated BUN/creatinine of 23 and 1.40. Lipase is 2-1/2 times normal at 199. There is a significant improvement from yesterday. Patient was treated with Zofran and morphine for his nausea vomiting and pain. Labs: Laboratory Results - last 24 hr 04/05/24 14:59 WBC 8.7 RBC 4.98 Hgb 14.4 Hct 43.3 MCV 86.9 MCH 28.9 MCHC 33.3 RDW Std Deviation 39.7 RDW Coeff of Eben 12.6 Plt Count 168 MPV 10.2 Sodium 138 Potassium 3.9 Chloride 102 Carbon Dioxide 29.0 Anion Gap 7 BUN 23 H Creatinine 1.40 H Est GFR (MDRD) Af Amer 65 Est GFR (MDRD) Non-Af 54 L BUN/Creatinine Ratio 16.4 Glucose 130 H Calcium 9.2 Lipase 199 H Radiography Diagnostic Testing: Clinical Impression(s) from Imaging Studies Abdomen/Pelvis CT 04/05/24 14:44 IMPRESSION: No definite acute or significant abnormality seen. Electronically Signed: Jose Mcbride MD at 16:40 EDT , Treatment and Re-Evaluation :: Spoke to Dr. Miguel Larson who is on-call. He contacted Dr. Bridges after I informed him of patient's history, CAT scan results and the fact that he was sent to the emergency room by Dr. Bridges. She states he was vomiting. She was seeing him for screening colonoscopy. Plan is to discharge if he passes p.o. challenge. Passing did pass p.o. challenge. Discharge Plan Triage Chief Complaint: Nausea/Vomiting Other Complaint: Abd Pain ED Provider: Mendoza,Real Dx/Rx/DC Orders Clinical Impression: Nausea & vomiting, Elevated lipase, Debility, Cardiomyopathy, Diabetes, Hypertension, Acute dehydration, Mild renal insufficiency Instructions: ED Vomiting (Adult), ED Renal Insufficiency Prescriptions: New ondansetron 4 mg tablet,disintegrating 4 mg PO Q8H PRN PRN (Reason: Nausea) Qty: 10 0RF No Action amlodipine 10 mg tablet 5 mg PO DAILY omega 2-tir-rie-fish oil [Fish Oil] 300-1,000 mg capsule,delayed release(DR/EC) 1 cap PO BID magnesium oxide 420 mg tablet 420 mg PO ONCE nortriptyline 10 MG capsule 30 mg PO DAILY aspirin 81 MG tablet,chewable 81 mg PO DAILY acetaminophen 500 mg Tablet 1,000 mg PO Q6H PRN PRN (Reason: Pain Score 1-10) Qty: 1 0RF atorvastatin [Lipitor] 40 mg tablet 40 mg PO QHS furosemide 20 mg tablet 20 mg PO DAILY spironolactone [Aldactone] 25 mg tablet 25 mg PO DAILY tamsulosin 0.4 mg Capsule 0.8 mg PO DAILY@1730 Qty: 0 0RF sertraline 100 mg tablet 150 mg PO DAILY Humulin R U-500 (Conc) Kwikpen 500 unit/mL (3 mL) Insulin Pen 90 unit subcut BID metoprolol succinate 25 mg tablet extended release 24 hr 25 mg PO DAILY lisinopril 40 mg tablet 40 mg PO DAILY empagliflozin 25 mg tablet 12.5 mg PO DAILY Rx Instructions: patient takes 1/2 tablet daily pregabalin [Lyrica] 50 mg capsule 150 mg PO BID [facility] [Primary Care Provider] - 5-7 Days Activity Restrictions/Additional Instructions: 1. You should contact your doctor for repeat blood work to assess your kidney function 2. Take the Zofran for nausea and vomiting 3. If you are unable to eat or drink anything over the next 12 hours return to the emergency department Print Language: Kyrgyz Disposition Disposition: Home, Self Care
[2024-04-05] MEDS: Morphine 4 MG/ML Syringe 2 MG IV (16:28)
[2024-04-05 17:00] VITALS: BP 154/82
== END 2024-04-05 17:58 | disposition home or self-care (01) ==
PROVIDERS: Emergency Provider Emergency Medicine; Visit Provider Emergency Medicine
DX: R11.2 Nausea with vomiting, unspecified (principal); I42.9 Cardiomyopathy, unspecified; E11.9 Type 2 diabetes mellitus without complications; R10.12 Left upper quadrant pain; H91.93 Unspecified hearing loss, bilateral; G43.909 Migraine, unspecified, not intractable, without status migrainosus; R10.13 Epigastric pain; F41.9 Anxiety disorder, unspecified; E86.0 Dehydration; G89.29 Other chronic pain; R53.81 Other malaise; M81.0 Age-related osteoporosis without current pathological fracture; I25.10 Atherosclerotic heart disease of native coronary artery without angina pectoris; E78.5 Hyperlipidemia, unspecified; N28.9 Disorder of kidney and ureter, unspecified; R74.8 Abnormal levels of other serum enzymes; I10 Essential (primary) hypertension; E03.9 Hypothyroidism, unspecified; E55.9 Vitamin D deficiency, unspecified; Z87.891 Personal history of nicotine dependence; G47.33 Obstructive sleep apnea (adult) (pediatric); Z86.16 Personal history of COVID-19; Z90.49 Acquired absence of other specified parts of digestive tract
CPT/HCPCS: 74177; 80048; 83690; 85027; 96361; 96374; 96375; 96376; 99284; J7030; Q9967; A4216; J2405

== ENCOUNTER 2024-06-15 05:56 | Day surgery (SDC) | payer OTHER, SELFPAY ==
--- NOTE | 2024-06-14 08:25 | H&P.OPEN ---
HPI - General General Date of Service: 06/14/24 [facility] Narrative OPAL CRUZ, is a 69 M who presents for colonoscopy due to history of colon polyps and EGD due to GERD. Patient denies any further nausea and vomiting which she had previously at the time of office visit. Patient has been has bowel movements mostly daily denies any blood. Patient's prep is currently liquid brown. Office visit 04/05/2024 [facility] HPI: 69-year-old male presents for colonoscopy due to history of colon polyps. Patient last colonoscopy of 2016 with tubular adenomas at that time, patient did receive movie prep from the [place]. Patient has bowel movements about every 2 to 3 days. Denies any blood. Patient denies any family history of colon cancer. Patient still having nausea and vomiting unable to keep anything down since yesterday. Patient did go to the ER yesterday was found to have lipase of 809 as well as an ALT that was elevated the rest liver functions were normal. Patient states that he is has had some reflux and burning upper esophagus for the past couple days states its constant did try Pepcid however he did throw back up. Patient denies any long history of reflux states he has been on omeprazole previously maybe about 3 months total. Patient also denies any heavy alcohol use or history of pancreatitis prior to the elevated lipase yesterday. Patient had an EGD screen greater than 20 years ago in the . [facility] Medical History Wears glasses Wears dentures Depression Anxiety History of edema Blister Walker as ambulation aid BPH (benign prostatic hyperplasia) Prostate disease Low iron High cholesterol Migraine headache Stroke/cerebrovascular accident Heartburn Gastric reflux Shortness of breath on exertion Non-smoker History of stress test History of echocardiogram Cardiology follow-up encounter Generalized weakness Cellulitis of leg, right Acute kidney injury Cellulitis Left-sided weakness Diabetic retinopathy Narcolepsy Depression Anxiety Diabetic polyneuropathy Vitamin D deficiency Migraine headache Obstructive sleep apnea Hyperlipidemia Coronary artery disease Right pontine stroke Ischemic stroke Hernia History of COVID-19 Vision loss of right eye Hearing loss, left Hearing loss, right Hypothyroidism Chronic pain Osteoporosis GERD (gastroesophageal reflux disease) GI bleed Former smoker CPAP (continuous positive airway pressure) dependence Sleep apnea Chest pain Elevated troponin Elevated lipase Myocardial infarct DM2 (diabetes mellitus, type 2) Essential (primary) hypertension Home Medications ?Medication ?Instructions ?Recorded ?Last Taken ?Type nortriptyline 10 mg capsule 30 mg PO QHS migraines 10/05/16 02/10/24 History aspirin 81 mg chewable tablet 81 mg PO DAILY heart health 08/17/19 06/07/24 History acetaminophen 500 mg tablet 1,000 mg (2 x 500 mg) PO Q6H PRN 04/16/22 Unknown Rx PRN Pain Score 1-10 #1 TAB atorvastatin 40 mg tablet (Lipitor) 40 mg PO QHS cholesterol 12/30/23 02/09/24 History furosemide 20 mg tablet 20 mg PO DAILY blood pressure 12/30/23 02/10/24 History spironolactone 25 mg tablet 25 mg PO DAILY blood pressure 12/30/23 02/10/24 History (Aldactone) tamsulosin 0.4 mg capsule 0.8 mg (2 x 0.4 mg) PO DAILY@1730 01/05/24 06/09/24 Rx #0 caps insulin regular hum U-500 conc 500 90 unit subcut BID diabetes 02/10/24 02/10/24 History unit/mL(3 mL) subcut pen (Humulin R U-500 (Conc) Insulin Kwikpen) lisinopril 40 mg tablet 40 mg PO DAILY blood pressure 02/10/24 02/10/24 History metoprolol succinate 25 mg 25 mg PO QHS blood pressure 02/10/24 06/09/24 History tablet,extended release 24 hr empagliflozin 25 mg tablet 12.5 mg PO DAILY diabetes 04/05/24 Unknown History magnesium oxide 420 mg tablet 420 mg PO ONCE 04/05/24 Unknown History omega 9-hkt-ylb-fish oil 300 1 cap PO BID 04/05/24 Unknown History mg-1,000 mg capsule,delayed release (Fish Oil) pregabalin 50 mg capsule (Lyrica) 150 mg PO BID neuropathy 04/05/24 Unknown History sertraline 100 mg tablet 150 mg PO DAILY depression 04/05/24 Unknown History Allergy/AdvReac Type Severity Reaction Status Date / Time No Known Allergies Allergy Verified 06/14/24 08:33 Family History Mother Diabetes Father Heart disease CVA (cerebral vascular accident) Surgical History History of cataract extraction with lens replacement History of colonoscopy History of esophagogastroduodenoscopy (EGD) History of hernia surgery History of cholecystectomy History of back surgery Social History household members: spouse and children housing: apartment current occupational status: disabled Smoking Status: Former smoker Tobacco: How many years used: 30 how long ago did patient quit smokin alcohol intake: never substance use type: does not use diet: diabetic caffeine: Yes Type: coffee Number of servings: 1 what type of physical activity do you participate in: walking Past Medical/Surgical History Planned Operation Planned Operative Procedure(s): EGD, CSCOPE Previous Hospitalizations/Surgeries HX Hospitalizations: Yes (POSSIBLE STROKE 01/2024) HX of Surgeries: sx Spinal Stenosis Mar, Cement for compression fx in [place] Jul, [place], x2 inginal hernia repair, Vasectomy, Teeth removed Any Problems With Anesthesia: No You/Your Family Experience Fever (Hyperthermia) With Anes: No Cholinesterase deficiency: No Cardiovascular Hx Chest Pain within Last 2 months: Yes Hx of Irregular Heartbeat and/or Afib: No Hx Heart Attack: No (not quite sure) Hx Congestive Heart Failure: No Hx Rheumatic Fever: No Hx Hypertension: Yes (CONTROLLED WITH MED) Hx Internal Defibrillator: No Hx Pacemaker: No Hx Cardiac Catheterization: Yes (heart cath in jul, 2013) Hx Cardiac Surgery/Stents/Etc.: No Hx Stress Test: Yes Hx Pain in Legs when Walking/Leg Cramps: Yes (leg cramps) Respiratory Chronic Cough: No HX of Shortness of Breath: No Hoarseness: No Hx Chronic Obstructive Pulmonary Disease (COPD): No Hx Asthma: No Hx Emphysema: No Hx Sleep Apnea: Yes CPAP: Yes BIPAP: No Hx Respiratory Tract Infection/Cold (presently): No Result (for STOP score): Positive Hx Smoking: Yes Smoking Status: Former smoker Gastrointestinal Controlled With Meds: No Hx Gastrointestinal Disorders: No Hx Gastrointestinal Bleed: Yes Hx Ulcer: No Hx Hiatal Hernia: No Difficulty Chewing/Swallowing: No Hx Unplanned Weight Loss of 20#: Yes Neurological Hx Seizures: No HX Syncope/Blackout Spells/Unconsciousness: Yes (passed out possibably d/t DM) Hx Transient Ischemic Attacks (TIA): No Hx Multiple Sclerosis: No Hx Parkinson's Disease: No Hx Head/Neck Injury: No Hx Headaches: Yes Hx Back Injury/Pain: Yes (sx aug 02/ stenosis Mar) Restless Legs: No Does patient have nerve stimulator: No Blood Disorder Hx Leukemia: No Bleeding Tendencies: No Hx Deep Vein Thrombosis: No Hx High Cholesterol: Yes Hx Hepatitis: No Hx Cirrhosis: No Hx Anemia: No Hx Blood Disorders: No Genitourinary Hx Renal Disease: No Hx Dialysis: No Musculoskeletal Hx Arthritis: Yes Hx Rheumatoid Arthritis: No Endocrine Hx Diabetes: Yes Insulin: Yes Thyroid Disease: No Hx Steroid Therapy: No Psycho/Social Hx Substance Use: No Hx Alcohol Use: No Hx Anxiety: Yes Hx Depression: Yes Mental Illness: No Hx Dementia: No Miscellaneous Hx Cancer: No Recent Exposure to Contagious Disease: No Any Loose Teeth: No Allergies No Known Allergies Allergy (Verified 06/14/24 08:33) Paternal: Family History Mother Diabetes Father Heart disease CVA (cerebral vascular accident) Diabetes and Heart Disease Sibling: Family History Mother Diabetes Father Heart disease CVA (cerebral vascular accident) Heart Disease and Stroke Discharge Is Pt Admitted From a [facility]ci, or a Snf: No After D/C, Where Do you Plan to Go: Return Home From the PAT History Number of Risk Factors: 7 Physical Exam Const alert, oriented x3 and no apparent distress HEENT normocephalic and head/scalp atraumatic Resp normal respiratory effort Cardio regular rate GI soft to palpation and non-tender; Negative for non-distended Palpation: Negative for guarding Extremity no clubbing, cyanosis or edema Skin no rashes or lesions noted Neuro CN's II-XII intact bilaterally Psych mental status grossly normal Assessment & Plan Assessment/Plan (1) Hx of colonic polyps: (2) GERD (gastroesophageal reflux disease): Surgery Risks - Colonoscopy I discussed with the patient the risks of the procedure: Yes Risks Include but are not Limited To: Plan for an EGD and colonoscopy risks include but are not limited to: Bleeding, perforation requiring further surgery, inability to complete colonoscopy requiring barium enema.
[2024-06-14 08:34] VITALS: BP 178/87; PULSE 81; RESP 16; TEMP 36.1; O2SAT 100; BMI 33.2
--- NOTE | 2024-06-14 08:58 | PRE.ANES_ITS ---
ASA Classification* ASA Classification ASA Classification: 3 Assessment & Plan Anesthesia* Anesthesia Assessment Anesthesia Assessment: Discussed sedation and/or anesthesia options, risks, benefits, and alternatives with patient/parents/legal guardian/POA. Questions invited. The patient/parents/legal guardian/POA seems to understand and agrees to proceed with anesthesia plan. Reviewed the physical assessment, medical history, allergy history and patient home medications list prior to surgery/procedure/anesthetic and documented any changes. Performed airway and anesthesia risk assessments. Anesthesia Type Anesthesia Type: MAC History Source History Obtained from:: Patient and Chart Anesthesia Focused Assessment* Temperature: 96.9 F Pulse Rate: 81 Blood Pressure: 178/87 Respiratory Rate: 16 Pulse Ox: 100 Oxygen Delivery Method: Room Air Airway Assessment Mouth opens: >3 cm Mallampati Score: IV Teeth Condition: Missing (Patient has multiple missing teeth. Rest are tight.) Neck Range of motion (ROM): Limited ROM (Slight decrease in extension) Focused Labs Anesthesia Preop lab: CBC WBC 8.7 K/mm3 (4.4-11.0) 04/05/24 14:59 RBC 4.98 M/mm3 (4.6-6.2) 04/05/24 14:59 Hgb 14.4 g/dL (13.0-16.5) 04/05/24 14:59 Hct 43.3 % (40-54) 04/05/24 14:59 Plt Count 168 K/mm3 (150-450) 04/05/24 14:59 CHEMISTRY Potassium 3.9 mmol/L (3.5-5.1) 04/05/24 14:59 Sodium 138 mmol/L (136-145) 04/05/24 14:59 Magnesium 2.6 mg/dL (1.6-2.6) 02/11/24 06:29 Phosphorus 3.5 mg/dL (2.5-4.9) 12/31/23 04:48 BUN 23 mg/dL (7-18) H 04/05/24 14:59 Creatinine 1.40 mg/dL (0.70-1.30) H 04/05/24 14:59 Glucose 130 mg/dL (74-106) H 04/05/24 14:59 POC Glucose 147 mg/dL (74-106) H 02/12/24 11:33 TSH 0.930 uIU/mL (0.358-3.740) 02/10/24 15:23 COAG PT 13.7 SECONDS (11.7-14.9) 02/11/24 06:29 Pre-Assessment Diagnosis/Proposed Procedure Planned Operative Procedure(s): EGD, CSCOPE Anesthesia History Anesthesia History - supply chain coordinator: Anesthesia History - supply chain coordinator Hx Hospitalization Yes: POSSIBLE STROKE 01/202406/14/24 08:26 Any Problems With Anesthesia No 06/14/24 08:26 Cholinesterase deficiency No 06/14/24 08:26 You/Your Family Experience No 06/14/24 08:26 fever (hyperthermia) with Relationship Recent Exposure to Contagious No 06/14/24 08:34 Disease Does patient have nerve No 06/14/24 08:26 stimulator Patient instructed to have device shut off --Does patient have Pacemaker No 06/14/24 08:34 or ICD? When Was Last Pacemaker Check QUESTION #4 FULL TEXT: You/Your Family Experience fever (hyperthermia) with Anesthesia Last Oral Intake Last Oral intake: Last Oral Intake NPO since 07:30 06/14/24 08:34 Meds taken in AM with sips of water? Meds patient instructed to take am of surgery Any additional information?: Yes NPO since: 07:30 (Patient took some prep at 7:30 AM.) PONV PONV - supply chain coordinator: PONV - supply chain coordinator Female No 05/10/24 14:23 HX of Motion Sickness No 05/10/24 14:23 HX of N/V After Surgery No 05/10/24 14:23 Non-Smoker Yes 05/10/24 14:23 Duration of Surgery greater No 05/10/24 14:23 than 60 minutes Number of Risk Factors 1 05/10/24 14:23 PONV Score Low Risk 05/10/24 14:23 Height & Weight Height & Weight: Anesthesia: Height & Weight Height 5 ft 6 in 06/14/24 08:34 Weight: 93.44 kg 06/14/24 08:34 Body Mass Index (BMI) 33.2 06/14/24 08:34 Respiratory Assessment Respiratory Assessment - supply chain coordinator: Respiratory Tract Infection Hx - supply chain coordinator Hx Respiratory Tract Infection No 06/14/24 08:26 STOP Sleep Apnea STOP Sleep Apnea - supply chain coordinator: STOP Sleep Apnea - supply chain coordinator Hx Hypertension Yes: CONTROLLED WITH MED 06/14/24 08:26 Hx Sleep Apnea Yes 06/14/24 08:26 CPAP Yes 06/14/24 08:26 BIPAP No 06/14/24 08:26 Do you snore loudly (louder than talking or can be heard Do you often feel tired/ fatigued/ sleepy during daytime? Has anyone observed you stop breathing during sleep? STOP Results Positive 06/14/24 08:26 QUESTION #5 FULL TEXT : Do you snore loudly (louder than talking or can be heard through closed doors)? 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 Specify any problems Hx of Preganancy in last 3 N/A 05/10/24 14:23 Months Nurse Filling Out Transfusion NBU[facility]ER 05/10/24 14:23 & Questions: Date: 05/10/24 05/10/24 14:23 Time: 14:25 05/10/24 14:23 Patient unable to answer at this time (ie. confused, unrespo /Reproduction History /Reproductive History - supply chain coordinator: /Reproductive Hx- supply chain coordinator Hx Now Gestational Age (in weeks): EDC: Hx Hx Para Hx Section SAB PFSH Medical History Wears glasses Wears dentures Depression Anxiety History of edema Blister Walker as ambulation aid BPH (benign prostatic hyperplasia) Prostate disease Low iron High cholesterol Migraine headache Stroke/cerebrovascular accident Heartburn Gastric reflux Shortness of breath on exertion Non-smoker History of stress test History of echocardiogram Cardiology follow-up encounter Generalized weakness Cellulitis of leg, right Acute kidney injury Cellulitis Left-sided weakness Diabetic retinopathy Narcolepsy Depression Anxiety Diabetic polyneuropathy Vitamin D deficiency Migraine headache Obstructive sleep apnea Hyperlipidemia Coronary artery disease Right pontine stroke Ischemic stroke Hernia History of COVID-19 Vision loss of right eye Hearing loss, left Hearing loss, right Hypothyroidism Chronic pain Osteoporosis GERD (gastroesophageal reflux disease) GI bleed Former smoker CPAP (continuous positive airway pressure) dependence Sleep apnea Chest pain Elevated troponin Elevated lipase Myocardial infarct DM2 (diabetes mellitus, type 2) Essential (primary) hypertension Home Medications ?Medication ?Instructions ?Recorded ?Last Taken ?Type nortriptyline 10 mg capsule 30 mg PO QHS migraines 10/05/16 02/10/24 History aspirin 81 mg chewable tablet 81 mg PO DAILY heart health 08/17/19 06/07/24 History acetaminophen 500 mg tablet 1,000 mg (2 x 500 mg) PO Q6H PRN 04/16/22 Unknown Rx PRN Pain Score 1-10 #1 TAB atorvastatin 40 mg tablet (Lipitor) 40 mg PO QHS cholesterol 12/30/23 02/09/24 History furosemide 20 mg tablet 20 mg PO DAILY blood pressure 12/30/23 02/10/24 History spironolactone 25 mg tablet 25 mg PO DAILY blood pressure 12/30/23 02/10/24 History (Aldactone) tamsulosin 0.4 mg capsule 0.8 mg (2 x 0.4 mg) PO DAILY@1730 01/05/24 06/09/24 Rx #0 caps insulin regular hum U-500 conc 500 90 unit subcut BID diabetes 02/10/24 02/10/24 History unit/mL(3 mL) subcut pen (Humulin R U-500 (Conc) Insulin Kwikpen) lisinopril 40 mg tablet 40 mg PO DAILY blood pressure 02/10/24 02/10/24 History metoprolol succinate 25 mg 25 mg PO QHS blood pressure 02/10/24 06/09/24 History tablet,extended release 24 hr empagliflozin 25 mg tablet 12.5 mg PO DAILY diabetes 04/05/24 Unknown History magnesium oxide 420 mg tablet 420 mg PO ONCE 04/05/24 Unknown History omega 1-amx-vze-fish oil 300 1 cap PO BID 04/05/24 Unknown History mg-1,000 mg capsule,delayed release (Fish Oil) pregabalin 50 mg capsule (Lyrica) 150 mg PO BID neuropathy 04/05/24 Unknown History sertraline 100 mg tablet 150 mg PO DAILY depression 04/05/24 Unknown History Allergy/AdvReac Type Severity Reaction Status Date / Time No Known Allergies Allergy Verified 06/14/24 08:33 Family History Mother Diabetes Father Heart disease CVA (cerebral vascular accident) Surgical History History of cataract extraction with lens replacement History of colonoscopy History of esophagogastroduodenoscopy (EGD) History of hernia surgery History of cholecystectomy History of back surgery Social History household members: spouse and children housing: apartment current occupational status: disabled Smoking Status: Former smoker Tobacco: How many years used: 30 how long ago did patient quit smokin alcohol intake: never substance use type: does not use diet: diabetic caffeine: Yes Type: coffee Number of servings: 1 what type of physical activity do you participate in: walking Review of Systems (Anesthesia) ROS Narrative System reviewed and no additional complaints, except as documented.
[2024-06-14 09:05] VITALS: BP 178/87; PULSE 81; RESP 16; TEMP 36.1; O2SAT 100
[2024-06-14 09:08] LABS: Bedside Glucose 119 mg/dL (74-106)
[2024-06-15] VITALS (9 sets, daily range): BP systolic 79–142; BP diastolic 52–83; PULSE 68–85; RESP 16; TEMP 36.3–36.4; O2SAT 95–98; BMI 33.0
--- NOTE | 2024-06-15 06:50 | PCM.PRE.AN2 ---
ASA Classification* ASA Classification ASA Classification: 3 Assessment & Plan Anesthesia* Anesthesia Assessment Anesthesia Assessment: Discussed sedation and/or anesthesia options, risks, benefits, and alternatives with patient/parents/legal guardian/POA. Questions invited. The patient/parents/legal guardian/POA seems to understand and agrees to proceed with anesthesia plan. Reviewed the physical assessment, medical history, allergy history and patient home medications list prior to surgery/procedure/anesthetic and documented any changes. Performed airway and anesthesia risk assessments. Anesthesia Type Anesthesia Type: MAC Anesthesia Focused Assessment* Temperature: 97.5 F Pulse Rate: 85 Blood Pressure: 142/78 Respiratory Rate: 16 Pulse Ox: 98 Airway Assessment Mouth opens: >3 cm Mallampati Score: II Focused Labs Anesthesia Preop lab: CBC WBC 8.7 K/mm3 (4.4-11.0) 04/05/24 14:59 RBC 4.98 M/mm3 (4.6-6.2) 04/05/24 14:59 Hgb 14.4 g/dL (13.0-16.5) 04/05/24 14:59 Hct 43.3 % (40-54) 04/05/24 14:59 Plt Count 168 K/mm3 (150-450) 04/05/24 14:59 CHEMISTRY Potassium 3.9 mmol/L (3.5-5.1) 04/05/24 14:59 Sodium 138 mmol/L (136-145) 04/05/24 14:59 Magnesium 2.6 mg/dL (1.6-2.6) 02/11/24 06:29 Phosphorus 3.5 mg/dL (2.5-4.9) 12/31/23 04:48 BUN 23 mg/dL (7-18) H 04/05/24 14:59 Creatinine 1.40 mg/dL (0.70-1.30) H 04/05/24 14:59 Glucose 130 mg/dL (74-106) H 04/05/24 14:59 POC Glucose 119 mg/dL (74-106) H 06/14/24 08:39 TSH 0.930 uIU/mL (0.358-3.740) 02/10/24 15:23 COAG PT 13.7 SECONDS (11.7-14.9) 02/11/24 06:29 Pre-Assessment Diagnosis/Proposed Procedure Planned Operative Procedure(s): EGD, CSCOPE Anesthesia History Anesthesia History - hospital wellness coordinator: Anesthesia History - hospital wellness coordinator Hx Hospitalization Yes: POSSIBLE STROKE 01/202406/14/24 08:26 Any Problems With Anesthesia No 06/14/24 08:26 Cholinesterase deficiency No 06/14/24 08:26 You/Your Family Experience No 06/14/24 08:26 fever (hyperthermia) with Relationship Recent Exposure to Contagious No 06/15/24 06:36 Disease Does patient have nerve No 06/14/24 08:26 stimulator Patient instructed to have device shut off --Does patient have Pacemaker No 06/15/24 06:40 or ICD? When Was Last Pacemaker Check QUESTION #4 FULL TEXT: You/Your Family Experience fever (hyperthermia) with Anesthesia Last Oral Intake Last Oral intake: Last Oral Intake NPO since 00:00 06/15/24 06:40 Meds taken in AM with sips of No 06/15/24 06:40 water? Meds patient instructed to take am of surgery PONV PONV - hospital wellness coordinator: PONV - hospital wellness coordinator Female No 05/10/24 14:23 HX of Motion Sickness No 05/10/24 14:23 HX of N/V After Surgery No 05/10/24 14:23 Non-Smoker Yes 05/10/24 14:23 Duration of Surgery greater No 05/10/24 14:23 than 60 minutes Number of Risk Factors 1 05/10/24 14:23 PONV Score Low Risk 05/10/24 14:23 Height & Weight Height & Weight: Anesthesia: Height & Weight Height 5 ft 6 in 06/15/24 06:40 Weight: 93 kg 06/15/24 06:40 Body Mass Index (BMI) 33.0 06/15/24 06:40 Respiratory Assessment Respiratory Assessment - hospital wellness coordinator: Respiratory Tract Infection Hx - hospital wellness coordinator Hx Respiratory Tract Infection No 06/14/24 08:26 STOP Sleep Apnea STOP Sleep Apnea - hospital wellness coordinator: STOP Sleep Apnea - hospital wellness coordinator Hx Hypertension Yes: CONTROLLED WITH MED 06/14/24 08:26 Hx Sleep Apnea Yes 06/14/24 08:26 CPAP Yes 06/14/24 08:26 BIPAP No 06/14/24 08:26 Do you snore loudly (louder than talking or can be heard Do you often feel tired/ fatigued/ sleepy during daytime? Has anyone observed you stop breathing during sleep? STOP Results Positive 06/14/24 09:50 QUESTION #5 FULL TEXT : Do you snore loudly (louder than talking or can be heard through closed doors)? 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 Specify any problems Hx of Preganancy in last 3 N/A 05/10/24 14:23 Months Nurse Filling Out Transfusion [facility] 05/10/24 14:23 & Questions: Date: 05/10/24 05/10/24 14:23 Time: 14:25 05/10/24 14:23 Patient unable to answer at this time (ie. confused, unrespo /Reproduction History /Reproductive History - hospital wellness coordinator: /Reproductive Hx- hospital wellness coordinator Hx Now Gestational Age (in weeks): EDC: Hx Hx Para Hx Section SAB PFSH Medical History Wears glasses Wears dentures Depression Anxiety History of edema Blister Walker as ambulation aid BPH (benign prostatic hyperplasia) Prostate disease Low iron High cholesterol Migraine headache Stroke/cerebrovascular accident Heartburn Gastric reflux Shortness of breath on exertion Non-smoker History of stress test History of echocardiogram Cardiology follow-up encounter Generalized weakness Cellulitis of leg, right Acute kidney injury Cellulitis Left-sided weakness Diabetic retinopathy Narcolepsy Depression Anxiety Diabetic polyneuropathy Vitamin D deficiency Migraine headache Obstructive sleep apnea Hyperlipidemia Coronary artery disease Right pontine stroke Ischemic stroke Hernia History of COVID-19 Vision loss of right eye Hearing loss, left Hearing loss, right Hypothyroidism Chronic pain Osteoporosis GERD (gastroesophageal reflux disease) GI bleed Former smoker CPAP (continuous positive airway pressure) dependence Sleep apnea Chest pain Elevated troponin Elevated lipase Myocardial infarct DM2 (diabetes mellitus, type 2) Essential (primary) hypertension Home Medications ?Medication ?Instructions ?Recorded ?Last Taken ?Type nortriptyline 10 mg capsule 30 mg PO QHS migraines 10/05/16 06/14/24 History aspirin 81 mg chewable tablet 81 mg PO DAILY heart health 08/17/19 06/07/24 History acetaminophen 500 mg tablet 1,000 mg (2 x 500 mg) PO Q6H PRN 04/16/22 Unknown Rx PRN Pain Score 1-10 #1 TAB atorvastatin 40 mg tablet (Lipitor) 40 mg PO QHS cholesterol 12/30/23 02/09/24 History furosemide 20 mg tablet 20 mg PO DAILY blood pressure 12/30/23 02/10/24 History spironolactone 25 mg tablet 25 mg PO DAILY blood pressure 12/30/23 02/10/24 History (Aldactone) tamsulosin 0.4 mg capsule 0.8 mg (2 x 0.4 mg) PO DAILY@1730 01/05/24 06/09/24 Rx #0 caps insulin regular hum U-500 conc 500 90 unit subcut BID diabetes 02/10/24 02/10/24 History unit/mL(3 mL) subcut pen (Humulin R U-500 (Conc) Insulin Kwikpen) lisinopril 40 mg tablet 40 mg PO DAILY blood pressure 02/10/24 02/10/24 History metoprolol succinate 25 mg 25 mg PO QHS blood pressure 02/10/24 06/09/24 History tablet,extended release 24 hr empagliflozin 25 mg tablet 12.5 mg PO DAILY diabetes 04/05/24 Unknown History magnesium oxide 420 mg tablet 420 mg PO ONCE 04/05/24 Unknown History omega 6-uvi-eyc-fish oil 300 1 cap PO BID 04/05/24 Unknown History mg-1,000 mg capsule,delayed release (Fish Oil) pregabalin 50 mg capsule (Lyrica) 150 mg PO BID neuropathy 04/05/24 06/14/24 History sertraline 100 mg tablet 150 mg PO DAILY depression 04/05/24 Unknown History Allergy/AdvReac Type Severity Reaction Status Date / Time No Known Allergies Allergy Verified 06/14/24 08:33 Family History Mother Diabetes Father Heart disease CVA (cerebral vascular accident) Surgical History History of cataract extraction with lens replacement History of colonoscopy History of esophagogastroduodenoscopy (EGD) History of hernia surgery History of cholecystectomy History of back surgery Social History household members: spouse and children housing: apartment current occupational status: disabled Smoking Status: Former smoker Tobacco: How many years used: 30 how long ago did patient quit smokin alcohol intake: never substance use type: does not use diet: diabetic caffeine: Yes Type: coffee Number of servings: 1 what type of physical activity do you participate in: walking Review of Systems (Anesthesia) ROS Narrative System reviewed and no additional complaints, except as documented.
[2024-06-15 07:09] LABS: Bedside Glucose 179 mg/dL (74-106)
--- NOTE | 2024-06-15 07:11 | PCM.HP.BLA ---
History and Physical Date of Admission: 06/15/24 06/14/24 0825 MR#: [id number] Acct: [id number] Name: OPAL CRUZ Rep #: [id number] : 1955 69 From: Vandana Gutierrez MD PCP: [facility] Hospital Status: REG [facility] [place] Location: [place] [address] HPI - General General Date of Service: 06/14/24 HPI Narrative OPAL CRUZ, is a 69 M who presents for colonoscopy due to history of colon polyps and EGD due to GERD. Patient denies any further nausea and vomiting which she had previously at the time of office visit. Patient has been has bowel movements mostly daily denies any blood. Patient's prep is currently liquid brown. Office visit 04/05/2024 HPI HPI: 69-year-old male presents for colonoscopy due to history of colon polyps. Patient last colonoscopy of 2016 with tubular adenomas at that time, patient did receive movie prep from the [place]. Patient has bowel movements about every 2 to 3 days. Denies any blood. Patient denies any family history of colon cancer. Patient still having nausea and vomiting unable to keep anything down since yesterday. Patient did go to the ER yesterday was found to have lipase of 809 as well as an ALT that was elevated the rest liver functions were normal. Patient states that he is has had some reflux and burning upper esophagus for the past couple days states its constant did try Pepcid however he did throw back up. Patient denies any long history of reflux states he has been on omeprazole previously maybe about 3 months total. Patient also denies any heavy alcohol use or history of pancreatitis prior to the elevated lipase yesterday. Patient had an EGD screen greater than 20 years ago in the . [facility] Medical History Wears glasses Wears dentures Depression Anxiety History of edema Blister Walker as ambulation aid BPH (benign prostatic hyperplasia) Prostate disease Low iron High cholesterol Migraine headache Stroke/cerebrovascular accident Heartburn Gastric reflux Shortness of breath on exertion Non-smoker History of stress test History of echocardiogram Cardiology follow-up encounter Generalized weakness Cellulitis of leg, right Acute kidney injury Cellulitis Left-sided weakness Diabetic retinopathy Narcolepsy Depression Anxiety Diabetic polyneuropathy Vitamin D deficiency Migraine headache Obstructive sleep apnea Hyperlipidemia Coronary artery disease Right pontine stroke Ischemic stroke Hernia History of COVID-19 Vision loss of right eye Hearing loss, left Hearing loss, right Hypothyroidism Chronic pain Osteoporosis GERD (gastroesophageal reflux disease) GI bleed Former smoker CPAP (continuous positive airway pressure) dependence Sleep apnea Chest pain Elevated troponin Elevated lipase Myocardial infarct DM2 (diabetes mellitus, type 2) Essential (primary) hypertension Home Medications ?Medication ?Instructions ?Recorded ?Last Taken ?Type nortriptyline 10 mg capsule 30 mg PO QHS migraines 10/05/16 02/10/24 History aspirin 81 mg chewable tablet 81 mg PO DAILY heart health 08/17/19 06/07/24 History acetaminophen 500 mg tablet 1,000 mg (2 x 500 mg) PO Q6H PRN 04/16/22 Unknown Rx PRN Pain Score 1-10 #1 TAB atorvastatin 40 mg tablet (Lipitor) 40 mg PO QHS cholesterol 12/30/23 02/09/24 History furosemide 20 mg tablet 20 mg PO DAILY blood pressure 12/30/23 02/10/24 History spironolactone 25 mg tablet 25 mg PO DAILY blood pressure 12/30/23 02/10/24 History (Aldactone) tamsulosin 0.4 mg capsule 0.8 mg (2 x 0.4 mg) PO DAILY@1730 01/05/24 06/09/24 Rx #0 caps insulin regular hum U-500 conc 500 90 unit subcut BID diabetes 02/10/24 02/10/24 History unit/mL(3 mL) subcut pen (Humulin R U-500 (Conc) Insulin Kwikpen) lisinopril 40 mg tablet 40 mg PO DAILY blood pressure 02/10/24 02/10/24 History metoprolol succinate 25 mg 25 mg PO QHS blood pressure 02/10/24 06/09/24 History tablet,extended release 24 hr empagliflozin 25 mg tablet 12.5 mg PO DAILY diabetes 04/05/24 Unknown History magnesium oxide 420 mg tablet 420 mg PO ONCE 04/05/24 Unknown History omega 5-oii-ttq-fish oil 300 1 cap PO BID 04/05/24 Unknown History mg-1,000 mg capsule,delayed release (Fish Oil) pregabalin 50 mg capsule (Lyrica) 150 mg PO BID neuropathy 04/05/24 Unknown History sertraline 100 mg tablet 150 mg PO DAILY depression 04/05/24 Unknown History Allergy/AdvReac Type Severity Reaction Status Date / Time No Known Allergies Allergy Verified 06/14/24 08:33 Family History Mother DiabetesFather Heart disease CVA (cerebral vascular accident) Surgical History History of cataract extraction with lens replacement History of colonoscopy History of esophagogastroduodenoscopy (EGD) History of hernia surgery History of cholecystectomy History of back surgery Social History household members: spouse and children housing: apartment current occupational status: disabled Smoking Status: Former smoker Tobacco: How many years used: 30 how long ago did patient quit smokin alcohol intake: never substance use type: does not use diet: diabetic caffeine: Yes Type: coffee Number of servings: 1 what type of physical activity do you participate in: walking Past Medical/Surgical History Planned Operation Planned Operative Procedure(s): EGD, CSCOPE Previous Hospitalizations/Surgeries HX Hospitalizations: Yes (POSSIBLE STROKE 01/2024) HX of Surgeries: sx Spinal Stenosis Mar, Cement for compression fx in [place] Jul, [place], x2 inginal hernia repair, Vasectomy, Teeth removed Any Problems With Anesthesia: No You/Your Family Experience Fever (Hyperthermia) With Anes: No Cholinesterase deficiency: No Cardiovascular Hx Chest Pain within Last 2 months: Yes Hx of Irregular Heartbeat and/or Afib: No Hx Heart Attack: No (not quite sure) Hx Congestive Heart Failure: No Hx Rheumatic Fever: No Hx Hypertension: Yes (CONTROLLED WITH MED) Hx Internal Defibrillator: No Hx Pacemaker: No Hx Cardiac Catheterization: Yes (heart cath in jul, 2013) Hx Cardiac Surgery/Stents/Etc.: No Hx Stress Test: Yes Hx Pain in Legs when Walking/Leg Cramps: Yes (leg cramps) Respiratory Chronic Cough: No HX of Shortness of Breath: No Hoarseness: No Hx Chronic Obstructive Pulmonary Disease (COPD): No Hx Asthma: No Hx Emphysema: No Hx Sleep Apnea: Yes CPAP: Yes BIPAP: No Hx Respiratory Tract Infection/Cold (presently): No Result (for STOP score): Positive Hx Smoking: Yes Smoking Status: Former smoker Gastrointestinal Controlled With Meds: No Hx Gastrointestinal Disorders: No Hx Gastrointestinal Bleed: Yes Hx Ulcer: No Hx Hiatal Hernia: No Difficulty Chewing/Swallowing: No Hx Unplanned Weight Loss of 20#: Yes Neurological Hx Seizures: No HX Syncope/Blackout Spells/Unconsciousness: Yes (passed out possibably d/t DM) Hx Transient Ischemic Attacks (TIA): No Hx Multiple Sclerosis: No Hx Parkinson's Disease: No Hx Head/Neck Injury: No Hx Headaches: Yes Hx Back Injury/Pain: Yes (sx aug 02/ stenosis Mar) Restless Legs: No Does patient have nerve stimulator: No Blood Disorder Hx Leukemia: No Bleeding Tendencies: No Hx Deep Vein Thrombosis: No Hx High Cholesterol: Yes Hx Hepatitis: No Hx Cirrhosis: No Hx Anemia: No Hx Blood Disorders: No Genitourinary Hx Renal Disease: No Hx Dialysis: No Musculoskeletal Hx Arthritis: Yes Hx Rheumatoid Arthritis: No Endocrine Hx Diabetes: Yes Insulin: Yes Thyroid Disease: No Hx Steroid Therapy: No Psycho/Social Hx Substance Use: No Hx Alcohol Use: No Hx Anxiety: Yes Hx Depression: Yes Mental Illness: No Hx Dementia: No Miscellaneous Hx Cancer: No Recent Exposure to Contagious Disease: No Any Loose Teeth: No Allergies No Known Allergies Allergy (Verified 06/14/24 08:33) Paternal: Family History Mother DiabetesFather Heart disease CVA (cerebral vascular accident) Diabetes and Heart Disease Sibling: Family History Mother DiabetesFather Heart disease CVA (cerebral vascular accident) Heart Disease and Stroke Discharge Is Pt Admitted From a Jail, or a Care Home: No After D/C, Where Do you Plan to Go: Return Home From the PAT History Number of Risk Factors: 7 Physical Exam Const alert, oriented x3 and no apparent distress HEENT normocephalic and head/scalp atraumatic Resp normal respiratory effort Cardio regular rate GI soft to palpation and non-tender; Negative for non-distended Palpation: Negative for guarding Extremity no clubbing, cyanosis or edema Skin no rashes or lesions noted Neuro CN's II-XII intact bilaterally Psych mental status grossly normal Assessment & Plan Assessment/Plan (1) Hx of colonic polyps: (2) GERD (gastroesophageal reflux disease): Surgery Risks - Colonoscopy I discussed with the patient the risks of the procedure: Yes Risks Include but are not Limited To: Plan for an EGD and colonoscopy risks include but are not limited to: Bleeding, perforation requiring further surgery, inability to complete colonoscopy requiring barium enema. 06/14/24 0950 <Electronically signed by Vandana Gutierrez MD> Cosigner Signature (if applicable): CC: Dr. Vandana Gutierrez MD; [facility]~ Signed ADDENDUM by Dr. Vandana Gutierrez MD on 06/14/24 at 1023 Addendum Patient did have a poor prep still having dark brown stools even after several attempts at tapwater enemas. Discussed with patient and his will plan to have patient redo prep today and come back for 730 tomorrow morning. Did tell patient and his okay for eggs and toast as he is diabetic today ideally earlier today. 06/14/24 1023<Electronically signed by Vandana Gutierrez MD>
--- NOTE | 2024-06-15 07:30 | COLBX_PTH ---
PATIENT: OPAL CRUZ LOC: EN U#:[id number] AGE/SX: 69/M ROOM: RE06/15/[address]: Dr. Vandana Gutierrez MD : 1955 BED: DIS: 06/15/2024 SPEC #: [id number] RECD: 06/15/24 10:57 STATUS: ARAMIS MARK #: [id number] BETTY: 06/15/24 07:[address]: Vandana Gutierrez DEPT: SURGICAL PATHOLOGY RECD BY: Efraín Sandhu ENTERED: 06/15/24 11:40 SP TYPE: COLON BX OTHR DR: [facility] Tissues: A - Gastric mucous membrane B - Esophagus, NOS C - Sigmoid colon biopsy D - Sigmoid colon biopsy Procedures: Surgery Specimen Level IV HEADER OPERATION: Colonoscopy with biopsy, EGD with biopsy PRE-OP DIAGNOSIS: History of colonic polyps, GERD TISSUE SUBMITTED: A- Gastric antrum biopsy, B- Distal esophagus biopsy, C- Sigmoid colon polyp biopsy #1, D- Sigmoid colon biopsy #2 MICROSCOPIC DIAGNOSIS A. Gastric antrum, biopsy: Mild gastritis. See microscopic description and comment. B. Distal esophagus, biopsy: Fragments of squamous mucosa with changes consistent with gastroesophageal reflux disease. See comment. C. Sigmoid colon polyp #1, biopsy: Fragments of tubular adenoma. Fragments of hyperplastic polyp. D. Sigmoid colon polyp #2, biopsy: Hyperplastic polyp. . 06/17/2024 COMMENT A. The results of immunohistochemistry for Helicobacter pylori will be reported separately ([id number]). B. Mild increase of eosinophils is also noted. MICROSCOPIC DESCRIPTION Slides are reviewed. A. The specimen shows fragments of gastric mucosa with chronic inflammatory cell infiltrates in the lamina propria consisting of lymphocytes and plasma cells, consistent with mild chronic gastritis. GROSS DESCRIPTION A. Received in fixative is one container labeled with the patient's name and designated Gastric antrum biopsy. The specimen consists of one irregular fragment of light li soft tissue that measures 0.5 x 0.2 x 0.1 cm. The specimen is totally submitted in one cassette. B. Received in fixative is one container labeled with the patient's name and designated Distal esophagus biopsy. The specimen consists of multiple irregular fragments of light li soft tissue that in aggregate measure 1.2 x 0.5 x 0.2 cm. The specimen is totally submitted in one cassette. C. Received in fixative is one container labeled with the patient's name and designated Sigmoid colon polyp biopsy #1. The specimen consists of multiple irregular fragments of light li soft tissue that in aggregate measure 1.5 x 0.3 x 0.2 cm. The specimen is totally submitted in one cassette. D. Received in fixative is one container labeled with the patient's name and designated Sigmoid colon biopsy #2. The specimen consists of one irregular fragment of light li soft tissue that measures 0.5 x 0.4 x 0.2 cm. The specimen is totally submitted in one cassette. 06/15/2024 TC:1 CPT:76869a7
--- NOTE | 2024-06-15 07:30 | IMM_PTH ---
PATIENT: OPAL CRUZ LOC: EN U#:[id number] AGE/SX: 69/M ROOM: RE06/15/[address]: Dr. Vandana Gutierrez MD : 1955 BED: DIS: 06/15/2024 SPEC #: [id number] RECD: 06/15/24 11:23 STATUS: ARAMIS REAfua #: [id number] BETTY: 06/15/24 07:[address]: Vandana Gutierrez DEPT: IMMUNOHISTOCHEMISTRY RECD BY: Yunier Tejada ENTERED: 06/15/24 11:23 SP TYPE: IMMUNO OTHR DR: [facility] Tissues: A - Gastric mucous membrane Procedures: H Pylori (initial) PHYSICIAN & INSTITUTION [place] [address] SPECIMEN INFORMATION: Tissue Source: A- Gastric antrum biopsy Clinical Info: History of colonic polyps, GERD Specimen Number: [id number] CPT code: 18434 METHODOLOGY: Deparaffinized sections of prefer/formalin-fixed tissue or PAP/DQ stained slides are incubated with monoclonal/polyclonal antibodies/oligonucleotide probes. Localization is made via biotin free immunoperoxidase method. Appropriate controls are performed and reacted as expected. Results on target cell population are indicated in the following table: RESULTS: ANTIBODY / CLONE RESULT Block A H Pylori (polyclonal) negative These tests were developed and their performance characteristics determined by [facility]. They may not have been cleared or approved by the U.S. Food and Drug Administration. The FDA has determined that such clearance or approval is not necessary. The above immunohistochemical/dualISH markers are ordered and reviewed by the Pathologist. INTERPRETATION: A. Gastric antrum, biopsy: Negative for Helicobacter pylori organisms. 06/17/2024
--- NOTE | 2024-06-15 08:17 | PCM.POST.ANE ---
Anesthesia: Postop Eval I Current Vital Signs Temperature: 97.3 F Pulse Rate: 74 Blood Pressure: 85/52 Respiratory Rate: 16 Pulse Ox: 97 Oxygen Delivery Method: Room Air Assessment Airway patent: Yes Spontaneous unlabored respirations: Yes Mental status: Asleep nausea: No Vomiting: No Anesthesia Complication: No Fluid Hydration Crystalloid volume administer (ml): 60 Total IV fluid infused: 60 Progress Note Anesthesia document: Postop Eval 1 completed: Yes
--- NOTE | 2024-06-15 08:19 | OP.COLON_ITS ---
Patient Name: Faraz Rodrigues Procedure Date: 06/15/2024 7:49 AM Date of : 1955 Age: 69 Procedure: Colonoscopy Indications: High risk colon cancer surveillance: Personal history of colonic polyps Providers: Vandana Gutierrez MD Referring MD: [facility] Medicines: Monitored Anesthesia Care Patient Profile: This is a 69 year old male. Last Colonoscopy: 2017. Complications: No immediate complications. Procedure: Pre-Anesthesia Assessment: - Prior to the procedure, a History and Physical was performed, and patient medications and allergies were reviewed. The patient's tolerance of previous anesthesia was also reviewed. The risks and benefits of the procedure and the sedation options and risks were discussed with the patient. All questions were answered, and informed consent was obtained. Prior Anticoagulants: The patient has taken no anticoagulant or antiplatelet agents except for aspirin. ASA Grade Assessment: Per anesthesia. After reviewing the risks and benefits, the patient was deemed in satisfactory condition to undergo the procedure. After I obtained informed consent, the scope was passed under direct vision. Throughout the procedure, the patient's blood pressure, pulse, and oxygen saturations were monitored continuously. The colonoscope was introduced through the anus and advanced to the cecum, identified by the appendiceal orifice, ileocecal valve and palpation. The colonoscopy was performed without difficulty. The patient tolerated the procedure well. The quality of the bowel preparation was adequate to identify polyps. Scope In: 7:49:56 AM Scope Withdrawal Time 0 hours 13 minutes 30 seconds Scope Out: 8:07:14 AM Total Procedure Duration Time 0 hours 17 minutes 18 seconds Findings: The perianal and digital rectal examinations were normal. Five sessile polyps were found in the sigmoid colon. The polyps were less than 5 mm in size. These polyps were removed with a cold biopsy forceps. Resection and retrieval were complete. The exam was otherwise without abnormality on direct and retroflexion views. Impression: - Five less than 5 mm polyps in the sigmoid colon, removed with a cold biopsy forceps. Resected and retrieved. - The examination was otherwise normal on direct and retroflexion views. Recommendation: - Discharge patient to home. - Resume previous diet. - Continue present medications. - Await pathology results. - Repeat colonoscopy in 3 - 5 years for surveillance based on pathology results. Procedure Code(s): --- Professional --- 83381, PT, Colonoscopy, flexible; with biopsy, single or multiple Diagnosis Code(s): --- Professional --- Z86.010, Personal history of colonic polyps D12.5, Benign neoplasm of sigmoid colon CPT copyright 2021 [employer]. All rights reserved. The codes documented in this report are preliminary and upon survey project manager review may be revised to meet current compliance requirements. MD Vandana Tian MD 06/15/2024 8:19:12 AM This report has been signed electronically. Number of Addenda: 0 Note Initiated On: 06/15/2024 7:49 AM
--- NOTE | 2024-06-15 08:19 | OP.CCLET_ITS ---
06/15/2024 [facility] Re : Colonoscopy procedure for [facility] This procedure was performed on Saturday, June 15, 2024. My impressions and recommendations are as follows: Impressions : - Five less than 5 mm polyps in the sigmoid colon, removed with a cold biopsy forceps. Resected and retrieved. - The examination was otherwise normal on direct and retroflexion views. Recommendations : - Discharge patient to home. - Resume previous diet. - Continue present medications. - Await pathology results. - Repeat colonoscopy in 3 - 5 years for surveillance based on pathology results. My findings are described in the full procedure note, which is enclosed. If I can be of further assistance, please feel free to contact me at Doctor phone number(s): , Work: . Sincerely, MD Vandana Tian MD 06/15/2024 8:19:12 AM This report has been signed electronically.
--- NOTE | 2024-06-15 08:23 | OP.EGD_ITS ---
Patient Name: Faraz Rodrigues Procedure Date: 06/15/2024 7:27 AM Date of : 1955 Age: 69 Procedure: Upper GI endoscopy Indications: Heartburn Providers: Vandana Gutierrez MD Referring MD: [facility] Medicines: Monitored Anesthesia Care Patient Profile: This is a 69 year old male. Complications: No immediate complications. Procedure: Pre-Anesthesia Assessment: - Prior to the procedure, a History and Physical was performed, and patient medications and allergies were reviewed. The patient's tolerance of previous anesthesia was also reviewed. The risks and benefits of the procedure and the sedation options and risks were discussed with the patient. All questions were answered, and informed consent was obtained. Prior Anticoagulants: The patient has taken no anticoagulant or antiplatelet agents. ASA Grade Assessment: Per anesthesia. After reviewing the risks and benefits, the patient was deemed in satisfactory condition to undergo the procedure. After obtaining informed consent, the endoscope was passed under direct vision. Throughout the procedure, the patient's blood pressure, pulse, and oxygen saturations were monitored continuously. The colonoscope was introduced through the mouth, and advanced to the second part of duodenum. The upper GI endoscopy was accomplished without difficulty. The patient tolerated the procedure well. Scope In: 7:42:37 AM Scope Out: 7:48:55 AM Total Procedure Duration Time 0 hours 6 minutes 18 seconds Findings: LA Grade D (one or more mucosal breaks involving at least 75% of esophageal circumference) esophagitis with no bleeding was found 40 to 44 cm from the incisors. Biopsies were taken with a cold forceps for histology. Moderately erythematous mucosa without bleeding was found in the gastric antrum. Biopsies were taken with a cold forceps for histology. Biopsies were taken with a cold forceps for Helicobacter pylori cultures. The cardia and gastric fundus were normal on retroflexion. The examined duodenum was normal. The Z-line was irregular and was found 40 cm from the incisors. Impression: - LA Grade D esophagitis with no bleeding. Biopsied. - Erythematous mucosa in the antrum. Biopsied. - Normal examined duodenum. Recommendation: - Await pathology results. - Discharge patient to home. - Resume previous diet. - Continue present medications. - Use Prilosec (omeprazole) 40 mg PO daily. - Use sucralfate tablets 1 gram PO QID for 1 month. Procedure Code(s): --- Professional --- 65905, Esophagogastroduodenoscopy, flexible, transoral; with biopsy, single or multiple Diagnosis Code(s): --- Professional --- K20.90, Esophagitis, unspecified without bleeding K31.89, Other diseases of stomach and duodenum R12, Heartburn CPT copyright 2021 [employer]. All rights reserved. The codes documented in this report are preliminary and upon cranberry sorter review may be revised to meet current compliance requirements. MD Vandana Tian MD 06/15/2024 8:23:14 AM This report has been signed electronically. Number of Addenda: 0 Note Initiated On: 06/15/2024 7:27 AM
--- NOTE | 2024-06-15 08:23 | OP.CCLET_ITS ---
06/15/2024 [facility] Re : Upper GI endoscopy procedure for [facility] This procedure was performed on Saturday, June 15, 2024. My impressions and recommendations are as follows: Impressions : - LA Grade D esophagitis with no bleeding. Biopsied. - Erythematous mucosa in the antrum. Biopsied. - Normal examined duodenum. Recommendations : - Await pathology results. - Discharge patient to home. - Resume previous diet. - Continue present medications. - Use Prilosec (omeprazole) 40 mg PO daily. - Use sucralfate tablets 1 gram PO QID for 1 month. My findings are described in the full procedure note, which is enclosed. If I can be of further assistance, please feel free to contact me at Doctor phone number(s): , Work: . Sincerely, MD Vandana Tian MD 06/15/2024 8:23:14 AM This report has been signed electronically.
[2024-06-15] MEDS: Pantoprazole Sodium 40 MG in 0.9% Normal Saline (100mL MB+) 100 ML 330 MG IV (08:30)
--- NOTE | 2024-06-15 08:34 | PCM.POSTANE2 ---
Anesthesia Postop Eval I Sum Postop Eval Completion status Anesthesia document: Postop Eval 1 completed: Yes Anesthesia Postop Eval I Summary Anesthesia Postop Eval I Summary: Anesthesia Postop Eval I: Assessment Summary Airway patent Yes 06/15/24 08:23 [email or web address] Spontaneous unlabored Yes 06/15/24 08:23 [email or web address] respirations Mental status Asleep 06/15/24 08:23 [email or web address] nausea No 06/15/24 08:23 [email or web address] Vomiting No 06/15/24 08:23 [email or web address] Anesthesia Postop Eval I: Fluid Summary Crystalloid volume administer 60 06/15/24 08:23 [email or web address] (ml) Colloids volume administered ( ml) Blood Product volume administered (ml) Total IV fluid infused 60 06/15/24 08:23 [email or web address] Anesthesia Postop Eval I: Summary Notes Anesthesia Complication No 06/15/24 08:23 [email or web address] Anesthesia Complication Comment: Post-operative progress note Anesthesia: Postop Eval II Evaluation Mental status: Awake Pain Level: 0 nausea: No Vomiting: No
== END 2024-06-15 09:45 | disposition home or self-care (01) ==
LOC: EN 05:57 → AC 05:58
PROVIDERS: Visit Provider Surgery
PROC: 0DJD8ZZ Inspection of Lower Intestinal Tract, Via Natural or Artificial Opening Endoscopic (ICD-10-PCS; CPT 45378; principal; 2024-06-15 07:25)
DX: Z12.11 Encounter for screening for malignant neoplasm of colon (principal); Z79.4 Long term (current) use of insulin; E11.9 Type 2 diabetes mellitus without complications; Z86.0100 Personal history of colon polyps, unspecified; I25.10 Atherosclerotic heart disease of native coronary artery without angina pectoris; I10 Essential (primary) hypertension; Z79.84 Long term (current) use of oral hypoglycemic drugs; Z87.891 Personal history of nicotine dependence; G43.909 Migraine, unspecified, not intractable, without status migrainosus; K21.00 Gastro-esophageal reflux disease with esophagitis, without bleeding; E03.9 Hypothyroidism, unspecified; F32.A Depression, unspecified; F41.9 Anxiety disorder, unspecified; G47.33 Obstructive sleep apnea (adult) (pediatric); E78.00 Pure hypercholesterolemia, unspecified; I25.2 Old myocardial infarction; Z99.89 Dependence on other enabling machines and devices; Z86.73 Personal history of transient ischemic attack (TIA), and cerebral infarction without residual deficits; Z79.82 Long term (current) use of aspirin; Z79.899 Other long term (current) drug therapy; N40.0 Benign prostatic hyperplasia without lower urinary tract symptoms; Z98.49 Cataract extraction status, unspecified eye; Z90.49 Acquired absence of other specified parts of digestive tract; K22.89 Other specified disease of esophagus; K29.70 Gastritis, unspecified, without bleeding; K63.5 Polyp of colon
CPT/HCPCS: 43239; 45380; 82962; 88305; 88342; A4216; J2405

== ENCOUNTER 2025-04-30 11:37 | Emergency (ER) | payer OTHER, SELFPAY ==
[2025-04-30 11:37] VITALS: BP 143/76; PULSE 91; RESP 14; TEMP 36.1; O2SAT 98
[2025-04-30 11:41] VITALS: BMI 34.6
--- NOTE | 2025-04-30 11:56 | EDS_ITS ---
HPI History of Present Illness Chief Complaint: Weakness Detail of Chief Complaint: Neuropathy and medication refill Informant: patient Narrative Narrative: Patient presents to the emergency department with complaint of pain in his left foot related to neuropathy. He has had the same pain multiple times in the past. He normally takes pregabalin and he ran out yesterday. He was told by the [facility] to come in and get a refill as they cannot get it to him for more than 10 days. Patient has an appointment with his primary care physician in 2 days. Patient also sees a automotive parts specialist that he saw 2 days ago and had dressings applied to both lower extremities and is scheduled to see him again next week as well. No new injury. He had no fever chills or sweats. His states that the legs look the same as they did on . They were hoping to get a prescription for the pregabalin. Patient does have history of prior stroke with some left-sided weakness and he does ambulate. [facility] Medical History Wears glasses Wears dentures Depression Anxiety History of edema Blister Walker as ambulation aid BPH (benign prostatic hyperplasia) Prostate disease Low iron High cholesterol Migraine headache Stroke/cerebrovascular accident Heartburn Gastric reflux Shortness of breath on exertion Non-smoker History of stress test History of echocardiogram Cardiology follow-up encounter Generalized weakness Cellulitis of leg, right Acute kidney injury Cellulitis Left-sided weakness Diabetic retinopathy Narcolepsy Depression Anxiety Diabetic polyneuropathy Vitamin D deficiency Migraine headache Obstructive sleep apnea Hyperlipidemia Coronary artery disease Right pontine stroke Ischemic stroke Hernia History of COVID-19 Vision loss of right eye Hearing loss, left Hearing loss, right Hypothyroidism Chronic pain Osteoporosis GERD (gastroesophageal reflux disease) GI bleed Former smoker CPAP (continuous positive airway pressure) dependence Sleep apnea Chest pain Elevated troponin Elevated lipase Myocardial infarct DM2 (diabetes mellitus, type 2) Essential (primary) hypertension Home Medications Medication Instructions Recorded Last Taken Type nortriptyline 10 mg capsule 30 mg PO QHS migraines 06/14/24 History aspirin 81 mg chewable tablet 81 mg PO DAILY heart hea lth 08/17/19 06/07/24 History Held on 06/15/24. Instructions: Resume on 06/16/24. acetaminophen 500 mg tablet 1,000 mg (2 x 500 mg) PO Q 6H PRN 04/16/22 Unknown Rx PRN Pain Score 1-10 #1 TAB atorvastatin 40 mg tablet (Lipitor) 40 mg PO QHS javier sterol 12/30/23 02/09/24 History furosemide 20 mg tablet 20 mg PO DAILY blood pressur e 12/30/23 02/10/24 History spironolactone 25 mg tablet 25 mg PO DAILY blood press ure 12/30/23 02/10/24 History (Aldactone) tamsulosin 0.4 mg capsule 0.8 mg (2 x 0.4 mg) PO DAILY @1730 01/05/24 06/09/24 Rx #0 caps insulin regular hum U-500 conc 500 90 unit subcut BID diabetes 02/10/24 02/10/24 History unit/mL(3 mL) subcut pen (Humulin R U-500 (Conc) Insulin Kwikpen) lisinopril 40 mg tablet 40 mg PO DAILY blood pressur e 02/10/24 02/10/24 History metoprolol succinate 25 mg 25 mg PO QHS blood pressure 02/10/24 06/09/24 History tablet,extended release 24 hr empagliflozin 25 mg tablet 12.5 mg PO DAILY diabetes 1 Unknown History magnesium oxide 420 mg tablet 420 mg PO ONCE 04/05/24 Unknown History omega 5-ahp-san-fish oil 300 1 cap PO BID 04/05/24 Unk nown History mg-1,000 mg capsule,delayed release (Fish Oil) pregabalin 50 mg capsule (Lyrica) 150 mg PO BID neurop athy 04/05/24 06/14/24 History sertraline 100 mg tablet 150 mg PO DAILY depression 1 Unknown History omeprazole 40 mg capsule,delayed 40 mg PO DAILY #30 ca ps 06/15/24 Unknown Rx release sucralfate 1 gram tablet 1 g PO 4X/DAY #56 tabs 06/15 Unknown Rx pregabalin 150 mg capsule 150 mg PO BID #60 caps 04/30 Unknown Rx Allergy/AdvReac Type Severity Reaction Status Date / Time No Known Allergies Allergy Verified 04/30/25 11:38 Family History Mother Diabetes Father Heart disease CVA (cerebral vascular accident) Surgical History History of cataract extraction with lens replacement History of colonoscopy History of esophagogastroduodenoscopy (EGD) History of hernia surgery History of cholecystectomy History of back surgery Social History household members: spouse and children housing: apartment current occupational status: disabled Smoking Status: Former smoker Tobacco: How many years used: 30 how long ago did patient quit smokin alcohol intake: never substance use type: does not use diet: diabetic caffeine: Yes Type: coffee Number of servings: 1 what type of physical activity do you participate in: walking ROS ROS ED Review of Systems ROS Unobtainable: other Constitutional Constitutional ED: Reports lethargy; Denies chills, fever(s), sweats or weight loss Eyes Eyes: Denies blurry vision, change in vision or diplopia ENT ENT ED: Denies rhinorrhea or sore throat Cardiovascular Cardiovascular: Denies chest pain, orthopnea or racing heartbeat Respiratory/Chest Respiratory/Chest: Denies cough, dyspnea, dyspnea on exertion, orthopnea or sputum Gastrointestinal Gastrointestinal: Denies abdominal pain, diarrhea, nausea or vomiting Genitourinary Genitourinary ED: Denies dysuria, hematuria or urinary frequency Musculoskeletal Musculoskeletal: Reports other Details: Left foot pain ; Denies arthralgias, back pain, myalgias or neck pain Integumentary Denies abscess, Abrasions or rash Neurologic Neurologic: Denies headache(s) or weakness Psychiatric Psychiatric: Denies anxiety, depression or suicidal thoughts Endocrine Endocrinology: Denies polydipsia, polyphagia or polyuria Hematologic/Lymphatic Hematologic/Lymphatic: Denies easy bleeding, easy bruising or lymphadenopathy Allergic/Immunologic Allergic/Immunologic ED: Denies mouth swelling, tongue swelling or urticaria EXAM Physical Exam Const Vital Signs: 04/30/25 11:37 Temperature 96.9 F L Temperature Source Temporal Pulse Rate 91 Respiratory Rate 14 Blood Pressure 143/76 H Blood Pressure Mean 98 Pulse Ox 98 Oxygen Delivery Method Room Air Positive well nourished and well developed General Appearance ED: well developed and NAD HEENT Reports TM's clear and moist mucous membranes normocephalic and atraumatic; Negative for trauma or tenderness Tympanic Membrane ED: Yes TM's clear Eyes PERRL and EOMs intact bilaterally General Eye ED: Negative for pale conjunctiva or scleral icterus Neck no lymphadenopathy, supple and no JVD General: Negative for tenderness Chest Wall inspection of chest normal and palpation of chest normal Chest: Negative for tenderness Resp normal respiratory effort and clear to auscultation bilaterally Effort and Inspection: Negative for respiratory distress or pain with movement Auscultation: Negative for rhonchi, wheezes or diminished lung sounds Cardio regular rate, regular rhythm, S1 normal heart sound, S2 normal heart sound and no murmurs Peripheral Pulses: pulses 2+ throughout GI normal to inspection, nondistended, normoactive bowel sounds, soft to palpation, non-tender, non-distended and no masses Back/Spine no CVA tenderness and no thoracic nor lumbar tenderness Extremity Negative for normal to inspection Extremity Narrative: Lower extremities-patient has have dressings covering both lower extremities from the knees to the feet. Toes are pink. No foul odor noted. Per he just had these dressings placed because he has some blisters to the anterior shins bilaterally. Patient able to move his toes and has normal cap refill. General Extremety ED: Negative for edema General Extremity: Negative for edema Neuro oriented x3, CN's II-XII intact bilaterally, no sensory deficits noted and gait normal Sensorium / Orientation: awake, alert, oriented to person, oriented to place and oriented to time Motor Exam: strength 5/5 throughout and strength abnormal Psych mental status grossly normal Skin no rashes or lesions noted and no wounds MDM MDM MDM Narrative Medical decision making narrative: Patient presents with left foot pain that he chronically has from time to time this is no different than his neuropathy pain. His only request is to get a prescription for his pregabalin. He does not want a thing else for pain. I will write him a prescription for pregabalin and he will keep his appointment with his primary care physician in 2 days and he will follow-up with the wound specialists and keep his appointment. Discharge Plan Triage Chief Complaint: Weakness ED Provider: Frances Merida Dx/Rx/DC Orders Clinical Impression: Arch pain of left foot, Neuropathy Instructions: ED Neuropathy, Peripheral Prescriptions: New pregabalin 150 mg capsule 150 mg PO BID Qty: 60 0RF No Action omega 3-wdl-uao-fish oil [Fish Oil] 300-1,000 mg capsule,delayed release(DR/EC) 1 cap PO BID magnesium oxide 420 mg tablet 420 mg PO ONCE nortriptyline 10 MG capsule 30 mg PO QHS aspirin 81 MG tablet,chewable 81 mg PO DAILY acetaminophen 500 mg Tablet 1,000 mg PO Q6H PRN PRN (Reason: Pain Score 1-10) Qty: 1 0RF atorvastatin [Lipitor] 40 mg tablet 40 mg PO QHS furosemide 20 mg tablet 20 mg PO DAILY spironolactone [Aldactone] 25 mg tablet 25 mg PO DAILY tamsulosin 0.4 mg Capsule 0.8 mg PO DAILY@1730 Qty: 0 0RF sertraline 100 mg tablet 150 mg PO DAILY Humulin R U-500 (Conc) Kwikpen 500 unit/mL (3 mL) Insulin Pen 90 unit subcut BID metoprolol succinate 25 mg tablet extended release 24 hr 25 mg PO QHS lisinopril 40 mg tablet 40 mg PO DAILY empagliflozin 25 mg tablet 12.5 mg PO DAILY Rx Instructions: patient takes 1/2 tablet daily pregabalin [Lyrica] 50 mg capsule 150 mg PO BID sucralfate 1 gram tablet 1 g PO 4X/DAY Qty: 56 1RF Rx Instructions: Take 1 hour before meals and at bedtime-if you miss a dose okay just take the next dose as scheduled, must be taken on empty stomach omeprazole 40 mg capsule,delayed release(DR/EC) 40 mg PO DAILY Qty: 30 5RF [facility] [Primary Care Provider, None] - 2 Days Print Language: Korean Disposition Disposition: Home, Self Care
[2025-04-30 12:00] VITALS: BP 137/70; PULSE 86; RESP 14; TEMP 37.1; O2SAT 93
--- OUTSIDE RECORDS SUMMARY | 2025-04-30 12:13 | XMS RPT_ITS | CCD ---
Author Organization [facility] Care Team Providers Care Supervisor Cartography Name Role Phone [place] Primary Care Provider Dr. Alfredo Cohen Emergency Provider Dr. Stevenson Rodriguez Admit Provider Dr. Stevenson Rodriguez Attending Provider Dr. Stevenson Rodriguez Other Provider Dr. Anant Artis Attending Provider Korandrea, Dr. Julianna Carreon Attending Provider Korandrea, Dr. Julianna Carreon Other Provider Trevon, Dr. Asad Castano Admit Provider Trevon, Dr. Asad Castano Other Provider Dr. Alison Dee Attending Provider Semenjadon, Dr. Alison Walden Other Provider [place] Primary Care Provider Dr. Alfredo Cohen Emergency Provider Dr. Stevenson Rodriguez Admit Provider Dr. Stevenson Rodriguez Attending Provider Dr. Stevenson Rodriguez Other Provider Dr. Anant Artis Attending Provider Korandrea, Dr. Julianna Carreon Attending Provider Korandrea, Dr. Julianna Carreon Other Provider Trevon, Dr. Asad Castano Admit Provider Trevon, Dr. Asad Castano Other Provider Sementi, Dr. Alison Walden Attending Provider Leila, Dr. Alison Walden Other Provider [facility], [place] Referring Provider Unavailable MOOSE Garcia Attending Provider Dr. Carlo Santana Emergency Provider Kavita, Dr. Cote Admit Provider Kavita, Dr. Cote Other Provider [phone] Tr Gutierrez Attending Provider Unavailable Dr. Tr Gutierrez Other Provider Unavailable Brenda, Dr. Armando Admit Provider Unavailable [facility], [place] [facility] Gilles Cowart Attending [place] Primary [facility] Unavailable Sofia Treadwell Admitting Unavailable Sofia Treadwell Consulting Unavailable [facility], [place] Primary Care Unavailable Sofia Treadwell Attending Unavailable Emely Nava Consulting Unavailable Elijah, Emely Admitting Unavailable [facility] Primary [facility] Unavailable Stevenson Rodriguez Attending Unavailable Stevenson Rodriguez Consulting Unavailable Stevenson Rodriguez Attending Unavailable Stevenson Rodriguez Consulting Unavailable Nava, Emely Admitting Unavailable Nava, Emely Consulting Unavailable Emely Nava Attending Unavailable [facility], [place] Primary Care Unavailable Shaye Dutton [place] Unavailable Sofia Treadwell Admitting Unavailable Sofia Treadwell Consulting Unavailable Stevenson Rodriguez Attending Unavailable [facility], [place] Primary Care Unavailable Nava, Emely Admitting Unavailable Nava, Emely Consulting Unavailable [facility] Primary [place] Unavailable Stevenson Rodriguez Attending Unavailable Vandana Gutierrez Attending Unavailable [facility], [place] Referring [place] [facility] [facility] [place] [facility]utton [facility] [place] [facility] Tobi Spencer Consulting Unavailable Angel Cline Consulting Unavailable Terrell Rendon Consulting Unavailable Tristian Aguero Consulting Unavailable Sharif Lacey Consulting Unavailable Kasia Navarrete Consulting Unavailab Golden Avalos Consulting Unavailable Lugo, Wilmar Consulting Unavailable El, July Consulting Unavailable Aljundi, Lamia Consulting Unavailable Red, Neville Consulting Unavailable Sampson Rosadoan Consulting Unavailable Hollis, Francesco Consulting Unavailable Panchabhai, Jaun Consulting Unavailable Bobo Florez Consulting Unavailable Brian Abdi Consulting Unavailable Марина REVIEW ENGINEER, Criss Consulting Unavailable Selwyn Yañez Attending [facility] [place] [facility] Unavailable Robotham, Vandana Consulting Unavailable Robotham, Vandana Attending [facility] [place] [facility] [place] [facility] Unavailable Robotham, Vandana Consulting Unavailable Robotham, Vandana Attending Un[facility] [place] [facility] [place] [facility] Unavailable Rosalva Durand NP Attending [facility] [place] [facility] Unavailable Robotham, Vandana Attending Un[facility] [place] [facility] Unavailable Mendoza, Real Attending Unavailable Medications Current Medications Medication Drug Class(es) Dates Sig (Normalized) Sig (Original) acetaminophen 500 mg oral tablet (8 sources) Start: 04-16-2022 take 1000 mg by mouth every six hours as needed Acetaminophen Active 1000 MG PO EVERY 6 HOURS NEEDED April 16, 2022 12:00am aspirin 81 mg chewable tablet (11 sources) Platelet Aggregation Inhibitor, Nonsteroidal Anti-inflammatory Drug Start: 08-17-2019 take 81 mg by mouth once daily Aspirin Active 81 MG PO DAILY August 17, 2019 1:00am atorvastatin 40 mg oral tablet (12 sources) HMG-CoA Reductase Inhibitor Start: 06-28-2022 take 40 mg by mouth once daily Atorvastatin Active 40 MG PO DAILY June 28, 2022 1:00am Start: 08-17-2019 take 40 mg by mouth at bedtime Atorvastatin Active 40 MG PO AT BEDTIME August 17, 2019 12:00am take 1 tablet by lisa th once daily atorvastatin (LIPITOR) 20 mg tablet Take 20 mg by mouth once daily. 0 Active Comment on above: Take 20 mg by mouth once daily. busPIRone hydrochloride 10 mg oral tablet (12 sources) Start: 06-17-2019 take 10 mg by mouth twice daily Buspirone Active 10 MG PO TWICE A DAY June 17, 2019 1:00am take 1 tablet by mouth three nicole es daily busPIRone (BUSPAR) 10 mg tablet Take 10 mg by mouth three times daily. 0 Active Comment on above: Take 10 mg by mouth three times daily. calcium carbonate 1250 mg oral tablet (11 sources) Start: 08-17-2017 take 650 mg by mouth twice daily Calcium Carbonate Active 650 MG PO TWICE A DAY August 17, 2017 1:00am Start: 08-17-2017 take 500 mg by mouth twice precious ly Calcium Carbonate Active 500 MG PO TWICE A DAY August 17, 2017 11:52am cholecalciferol 0.025 mg oral tablet (11 sources) Vitamin D Start: 08-17-2017 take 1 tablet by mouth twice daily Cholecalciferol (Vitamin D3) (Vitamin D3) 1,000 UNIT tablet Active 1000 UNIT PO TWICE A DAY August 17, 2017 1:00am Start: 08-17-2017 take 1 tablet by lisa th once daily Cholecalciferol (Vitamin D3) (Vitamin D3) 1,000 UNIT tablet Active 1000 UNIT PO DAILY August 17, 2017 9:04pm doxycycline monohydrate 100 mg oral tablet (1 source) Tetracycline-class Drug Start: 04-26-2023 End: 05-03-2023 take 1 tablet by mouth twice daily doxycycline monohydrate 100 mg tablet Indications: Puncture wound Take 1 tablet by mouth two times a day for 7 days. 14 tablet 0 04/26/2023 05/03/2023 Active Comment on above: Take 1 tablet by lisa th two times a day for 7 days. furosemide 40 mg oral tablet (15 sources) Loop Diuretic Start: 04-16-2022 End: 04-30-2022 take 40 mg by mouth once daily Furosemide Active 40 MG PO DAILY April 30, 2022 2:59pm 3 ml insulin, regular, human 500 unt/ml pen injector (20 sources) Insulin Start: 06-28-2022 Insulin Regular Hum U-500 Conc (Humulin R U-500 (Conc) Kwikpen) 500 unit/mL (3 mL) insulin pen Active 85 UNITS SC WITH BREAKFAST June 28, 2022 1:27pm Start: 06-28-2022 Insulin Regula r Hum U-500 Conc (Humulin R U-500 (Conc) Kwikpen) 500 unit/mL (3 mL) insulin pen Active 75 UNITS SC 1130 June 28, 2022 1:27pm Start: 04-16-2022 End: 06-28-2022 Insulin Regular Hum U-500 Co nc (Humulin R U-500 (Conc) Kwikpen) 500 unit/mL (3 mL) Insulin Pen Discontinued 60 UNITS SC WITH BREAKFAST 0 April 16, 2022 12:00am June 28, 2022 1:27pm Start: 04-16-2022 End: 06-28-2022 Insulin Regular Hum U-500 Co nc (Humulin R U-500 (Conc) Meraryikpen) 500 unit/mL (3 mL) Insulin Pen Discontinued 50 UNITS SC 1130 0 April 16, 2022 12:00am June 28, 2022 1:27pm 3 ml liraglutide 6 mg/ml pen injector (3 sources) GLP-1 Receptor Agonist Start: 08-17-2017 Liraglutide (Victoza 2-Ahsan) 0.6 MG/0.1 ML pen injector Active 1.8 MG SQ DAILY August 17, 2017 9:04pm liraglutide (MARIFER TOZA 3-AHSAN SUBCUTANEOUS) Inject subcutaneously. 0 Active Comment on above: Inject subcutaneousl y. magnesium chloride 535 mg delayed release oral tablet (8 sources) Start: 04-16-20 Magnesium Chloride (Mag 64) 64 mg Tablet,Delayed Release (Dr/Ec) Active 128 MG PO TWICE A DAY 60 April 16, 2022 12:00am metFORMIN hydrochloride 500 mg oral tablet (14 sources) Biguanide Start: 04-16-20 take 500 mg by mouth three times daily at mealtime Metformin Active 500 MG PO THREE TIMES A DAY April 16, 2022 1:09pm take this medication with meals Start: 03-19-2022 End: 04-16-2022 take 500 mg by mouth twice daily Metformin Discontinue d 500 MG PO TWICE A DAY March 19, 2022 12:00am April 16, 2022 2:09pm Start: 10-05-2016 take 500 mg by mouth twice precious ly Metformin Active 500 MG PO TWICE A DAY October 05, 2016 12:00am Start: 10-05-2016 take 1000 mg by mouth once precious ly Metformin Active 1000 MG PO DAILY October 05, 2016 6:19pm take 1 tablet by lisa th once daily at breakfast metFORMIN ER (FORTAMET) 500 mg 24 hr tablet Take 500 mg by mouth daily with breakfast. 0 Active Comment on above: Take 500 mg by mouth daily with breakfast. metoprolol tartrate 100 mg oral tablet (12 sources) beta-Adrenergic Keisha Start: 10-05-2016 take 150 mg by mouth twice daily Metoprolol Tartrate Active 150 MG PO TWICE A DAY October 05, 2016 12:00am take 1 tablet by mouth twice precious ly metoprolol tartrate, short acting, (LOPRESSOR) 100 mg tablet Take 100 mg by mouth twice daily. 0 Active Comment on above: Take 100 mg by mouth twice daily. modafinil 200 mg oral tablet (12 sources) Sympathomimetic-like Agent Start: 06-17-19 20 take 200 mg by mouth once daily Modafinil Active 200 MG PO DAILY June 17, 2019 1:00am Comment on above: Take 200 mg by mouth once daily. nortriptyline 10 mg oral capsule (12 sources) Tricyclic Antidepressant Start: 10-06-19 17 take 30 mg by mouth once daily Nortriptyline Active 30 MG PO DAILY October 05, 2016 12:00am Start: 10-05-2016 take 20 mg by mouth once daily Nortriptyline Active 20 MG PO DAILY October 05, 2016 6:19pm take 1 capsule by [facility] once daily at bedtime nortriptyline (PAMELOR) 10 mg capsule Take 10 mg by mouth daily at bedtime. 0 Active Comment on above: Take 10 mg by mouth daily at bedtime. [place]-3 Fatty Acids-Fish Oil (Fish Oil) 1 EACH capsule (11 sources) Start: 08-17-2017 take 1 capsule by mouth twice daily [place]-3 Fatty Acids-Fish Oil (Fish Oil) 1 EACH capsule Active 1000 MG PO TWICE A DAY August 17, 2017 11:52am Start: 08-17-2017 take 1 capsule by [facility] twice daily Kingston-3 Fatty Acids-Fish Oil (Fish Oil) 1 EACH capsule Active 1000 MG PO TWICE A DAY August 17, 2017 12:00am Start: 08-17-2017 take 1 capsule by [facility] twice daily Kingston-3 Fatty Acids-Fish Oil (Fish Oil) 1 EACH capsule Active 1000 MG PO TWICE A DAY August 17, 2017 1:00am microencapsulated potassium chloride 20 meq extended release oral tablet (8 sources) Start: 04-16-2022 Potassium Chlo ride (Klor-Con M20) 20 mEq Tablet,Er Particles/Crystals Active 20 MEQ PO TWICE DAILY WITH MEALS 60 April 16, 2022 12:00am pregabalin 100 mg oral capsule (12 sources) Start: 03-19-2022 take 200-300 mg by mouth twice daily Pregabalin Active 200 - 300 MG PO TWICE A DAY March 19, 2022 12:00am Start: 08-17-2017 take 100 mg by mouth twice precious ly Pregabalin Active 100 MG PO TWICE A DAY August 17, 2017 1:00am take 1 capsule by [facility] twice daily Pregabalin (LYRICA) 200 mg capsule Take 200 mg by mouth twice daily. 0 Active Comment on above: Take 200 mg by mouth twice daily. sacubitril 49 mg / valsartan 51 mg oral tablet (7 sources) Angiotensin 2 Receptor Keisha Start: 04-30-2022 take 1 tablet by mouth twice daily Sacubitril-Valsarta n (Entresto) 49-51 mg tablet Active 1 TABLET PO TWICE A DAY 180 April 30, 2022 1:00am sertraline 150 mg oral tablet (12 sources) Serotonin Reuptake Inhibitor Start: 03-19-2022 take 150 mg by mouth once daily Sertraline Active 150 MG PO DAILY March 19, 2022 12:00am Start: 06-17-2019 take 150 mg by mouth once erik y Sertraline Active 150 MG PO DAILY June 17, 2019 1:00am take 1 tablet by [facility] once daily sertraline (ZOLOFT) 100 mg tablet Take 100 mg by mouth once daily. 0 Active Comment on above: Take 100 mg by mouth once daily. tamsulosin hydrochloride 0.4 mg oral capsule (12 sources) alpha-Adrenergic Keisha Start: 03-30-2021 take 0.4 mg by mouth once daily Tamsulosin Active 0.4 MG PO DAILY March 30, 2021 12:00am Comment on above: Take 0.4 mg by mouth once daily. Completed/Discontinued Medications Medication Drug Class(es) Dates Sig (Normalized) Sig (Original) acetaminophen 325 mg / HYDROcodone bitartrate 5 mg oral tablet (11 sources) Opioid Agonist Start: 10-05-2021 End: 03-19-2022 take 1 tablet by mouth every six hours Hydrocodone-Aceta minophen Discontinued 1 TABLET PO EVERY 6 HOURS 03 18October 05, 2021 March 19, 2022 3:14pm amLODIPine 10 mg oral tablet (20 sources) Dihydropyridine Calcium Channel Keisha Start: 04-30-2022 End: 04-30-2022 take 10 mg by mouth twice daily Amlodipine Discontinued 10 MG PO TWICE A DAY April 30, 2022 2:28pm April 30, 2022 2:59pm Start: 04-16-2022 End: 04-30-2022 take 10 mg by mouth once daily Amlodipine Active 10 MG PO DAILY April 30, 2022 2:54pm Start: 10-05-2016 End: 04-16-2022 take 10 mg by mouth twice daily Amlodipine Discontinued 10 MG PO TWICE A DAY October 05, 2016 12:00am April 16, 2022 1:59pm Start: 10-05-2016 take 10 mg by mouth once daily Amlodipine Active 10 MG PO DAILY October 05, 2016 6:19pm amLODIPine (NORV ASC) 5 mg tablet Take by mouth once daily. 0 Active Comment on above: Take by mouth once d aily. apixaban 2.5 mg oral tablet (11 sources) Factor Xa Inhibitor Start: 1 End: 2 take 1 tablet by mouth twice daily Apixaban (Eliquis) 2.5 mg tablet Discontinued 2.5 MG PO TWICE A DAY April 19, 2021 12:00am March 19, 2022 3:14pm clopidogrel 75 mg oral tablet (20 sources) P2Y12 Platelet Inhibitor Start: 1 End: 2 take 75 mg by mouth once daily Clopidogrel Discontinued 75 MG PO DAILY April 16, 2022 2:09pm April 30, 2022 3:00pm 0.4 ml enoxaparin sodium 100 mg/ml prefilled syringe (8 sources) Low Molecular Weight Heparin Start: 2 End: 2 Enoxaparin (Lovenox) 40 mg/0.4 mL Syringe Discontinued 40 MG SC DAILY March 19, 2022 12:00am April 16, 2022 2:01pm 3 ml insulin aspart, human 100 unt/ml pen injector (12 sources) Insulin Analog Start: 7 End: 1 Insulin Aspart U-100 (Novolog Flexpen U-100 Insulin) 100 UNITS/ML insulin pen Discontinued 50 UNITS SC THREE TIMES A DAY October 05, 2016 12:00am March 31, 2021 12:54pm with every meal insulin aspart ( NOVOLOG FLEXPEN U-100 INSULIN SUBCUTANEOUS) Inject subcutaneously. 0 Active Comment on above: Inject subcutaneousl y. insulin glargine 100 unt/ml injectable solution (11 sources) Insulin Analog Start: 018 End: inject 100 [IU] by subcutaneous injection twice daily Insulin Glargine (Lantus U-100 Insulin) 100 UNIT/ML solution Discontinued 100 UNIT SQ TWICE A DAY August 17, 2017 1:00am March 31, 2021 12:54pm insulin glargine,hum.rec.a nlog (LANTUS SUBCUTANEOUS) (1 source) insulin glargine,hum.rec.an log (LANTUS SUBCUTANEOUS) Inject subcutaneously. 0 Active Comment on above: Inject subcutaneousl y. lisinopril 40 mg oral tablet (20 sources) Angiotensin Converting Enzyme Inhibitor Start: 022 End: take 40 mg by mouth once daily Lisinopril Discontinued 40 MG PO DAILY April 16, 2022 12:00am April 30, 2022 2:57pm Start: 10-05-2016 End: 04-16-2022 take 4 tablets by mouth once daily Lisinopril (Prinivil) 10 MG tablet Discontinued 40 MG PO DAILY October 05, 2016 12:00am April 16, 2022 2:01pm Start: 10-05-2016 take 2 tablets by mo uth once daily Lisinopril (Prinivil) 10 MG tablet Active 20 MG PO DAILY October 05, 2016 6:19pm take 1 tablet by lisa th once daily lisinopril (ZESTRIL, PRINIVIL) 20 mg tablet Take 20 mg by mouth once daily. 0 Active Comment on above: Take 20 mg by mouth once daily. ondansetron 4 mg disintegrating oral tablet (11 sources) Serotonin-3 Receptor Antagonist Start: 2 End: 2 take 4 mg by mouth every eight hours Ondansetron Discontinued 4 MG PO Q8H October 05, 2021 12:00am April 16, 2022 2:03pm pantoprazole 40 mg delayed release oral tablet (11 sources) Proton Pump Inhibitor Start: 0 End: 0 take 40 mg by mouth twice daily Pantoprazole Discontinued 40 MG PO TWICE A DAY 28 14 August 18, 2019 1:00am September 01, 2019 12:07am Problems Active Problems Problem Classification Problem Date Documented Date Episodic/Chronic Abdominal pain (1 source) Epigastric pain; Translations: [Epigastric pain] Onset: 04-27-2024 Episodic Acute cerebrovascular disease (20 sources) Cerebrovascular accident; Translations: [Cerebral infarction, unspecified] Onset: 02-24-2024 Chronic Anxiety disorders (8 sources) Anxiety; Translations: [Anxiety disorder, unspecified] 04-25-2022 Chronic Conditions associated with dizziness or vertigo (11 sources) Lightheadedness; Translations: [Dizziness and giddiness] Episodic Congestive heart failure; nonhypertensive (14 sources) Acute systolic heart failure; Translations: [Acute systolic (congestive) heart failure] Chronic Coronary atherosclerosis and other heart disease (9 sources) Coronary arteriosclerosis; Translations: [Atherosclerotic heart disease of [place] coronary artery without angina pectoris] Chronic Diabetes mellitus with complications (20 sources) Neuropathy due to diabetes mellitus; Translations: [Type 2 diabetes mellitus with diabetic neuropathy, unspecified] Onset: 04-26-2024 Chronic Diabetes mellitus without complication (20 sources) Type 2 diabetes mellitus; Translations: [Type 2 diabetes mellitus without complications] Onset: 01-05-2024 Chronic Disorders of lipid metabolism (20 sources) Hyperlipidemia; Translations: [Hyperlipidemia, unspecified] Chronic E Codes: Fall (11 sources) Fall; Translations: [Unspecified fall, initial encounter] Episodic Esophageal disorders (1 source) Gastro-esophageal reflux disease without esophagitis; Translations: [Gastro-esophageal reflux disease without esophagitis] Onset: 07-06-2024 Chronic Essential hypertension (20 sources) Essential hypertension; Translations: [Essential (primary) hypertension] Chronic Headache; including migraine (8 sources) Migraine; Translations: [Migraine, unspecified, not intractable, without status migrainosus] 04-25-2022 Chronic Hypertension with complications and secondary hypertension (11 sources) Hypertensive urgency ; Translations: [Hypertensive urgency] 04-08-2021 Chronic Mood disorders (8 sources) Depressive disorder; Translations: [Depression] 04-25-2022 Chronic Noninfectious gastroenteritis (11 sources) Acute gastroenteritis; Translations: [Noninfective gastroenteritis and colitis, unspecified] 03-29-2022 Episodic Nutritional deficiencies (8 sources) Vitamin D deficiency; Translations: [Vitamin D deficiency, unspecified] 04-25-2022 Chronic Other circulatory disease (7 sources) Transient hypotension; Translations: [Hypotension, unspecified] 05-15-2022 Episodic Other circulatory disease (6 sources) Orthostatic hypotension; Translations: [Orthostatic hypotension] 06-10-2022 Episodic Other circulatory disease (5 sources) Orthostatic hypotension; Translations: [Orthostatic hypotension] Episodic Other hematologic conditions (11 sources) Raised cardiac enzyme or marker; Translations: [Other specified abnormalities of plasma proteins] 03-27-2022 Episodic Other hematologic conditions (2 sources) Other specified abnormalities of plasma proteins; Translations: [Other abnormal blood chemistry] Episodic Other injuries and conditions due to external causes (1 source) Puncture wound - injury; Translations: [Other injury of unspecified body region, initial encounter] 04-26-2023 Episodic Other lower respiratory disease (11 sources) Hypoxia; Translations: [Hypoxemia] 03-29-2022 Episodic Other nervous system disorders (8 sources) Narcolepsy; Translations: [Narcolepsy without cataplexy] 04-25-2022 Chronic Other nervous system disorders (1 source) Narcolepsy without cataplexy; Translations: [Narcolepsy, without cataplexy] Chronic Other nutritional; endocrine; and metabolic disorders (8 sources) Hypomagnesemia; Translations: [Hypomagnesemia] 04-25-2022 Chronic Other nutritional; endocrine; and metabolic disorders (6 sources) Hypomagnesemia; Translations: [Disorders of magnesium metabolism] Chronic Other screening for suspected conditions (not mental disorders or infectious disease) (1 source) Encounter for screening for malignant neoplasm of colon; Translations: [Encounter for screening for malignant neoplasm of colon] Onset: 07-06-2024 Episodic Pancreatic disorders (not diabetes) (11 sources) Acute pancreatitis; Translations: [Acute pancreatitis without necrosis or infection, unspecified] 10-13-2021 Episodic Inna-; endo-; and myocarditis; cardiomyopathy (except that caused by tuberculosis or sexually transmitted disease) (20 sources) Cardiomyopathy; Translations: [Cardiomyopathy, unspecified] Chronic Residual codes; unclassified (11 sources) Obstructive sleep apnea syndrome; Translations: [Obstructive sleep apnea (adult) (pediatric)] 04-25-2022 Chronic Residual codes; unclassified (1 source) Obstructive sleep apnea (adult) (pediatric); Translations: [Obstructive sleep apnea (adult)(pediatric)] Chronic Residual codes; unclassified (2 sources) Disorientated in time; Translations: [Other specified health status] 08-23-2022 Episodic Syncope (3 sources) Syncope and collapse; Translations: [Syncope and collapse] Episodic Unclassified (1 source) Personal history of colon polyps, unspecified; Translations: [Personal history of colon polyps, unspecified] Onset: 07-06-2024 Viral infection (20 sources) Disease caused by 2019-nCoV; Translations: [COVID-19] 03-29-2022 Episodic Past or Other Problems Problem Classification Problem Date Documented Da te Episodic/Chronic Malaise and fatigue (20 sources) Muscle weakness; Translations: [Weakness] Onset: 01-05-2024 Episodic Skin and subcutaneous tissue infections (3 sources) Cellulitis of right lower limb; Translations: [Cellulitis, unspecified] Onset: 02-14-2024 Episodic Results Test Name Value Interpretation Reference Range Facility Bedside Glucoseon 06-15-2024 [facility] GLU 179 mg/dL High 74-[address] [facility] Comment on above: Result Comment: [place] OF PATIENT CARE PER NURSING PROTOCOL Performed By: #### L [id number], L500.2500, L300.4310, L300.3900, L100.0100 #### [facility] [address] [place], [address] Colonoscopy Reporton 024 Colonoscopy Report [facility] Medical Records Department [address] [place] [address] Colonoscopy Report MR#: [id number] Acct: [id number] Name: OPAL CRUZ Rep #: [id number] : 1955 69 From: Vandana Gutierrez MD PCP: [facility] Status:REG [facility] Patient Name: Opal Cruz Procedure Date: 06/15/2024 7:49 AM Date of : 1955 Age: 69 Procedure: Colonoscopy Indications: High risk colon cancer surveillance: Personal history of colonic polyps Providers: Vandana Gutierrez MD Referring MD: Medicines: Monitored Anesthesia Care Patient Profile: This is a 69 year old male. Last Colonoscopy: 2016. Complications: No immediate complications. Procedure: Pre-Anesthesia Assessment: - Prior to the procedure, a History and Physical was performed, and patient medications and allergies were reviewed. The patient's tolerance of previous anesthesia was also reviewed. The risks and benefits of the procedure and the sedation options and risks were discussed with the patient. All questions were answered, and informed consent was obtained. Prior Anticoagulants: The patient has taken no anticoagulant or antiplatelet agents except for aspirin. ASA Grade Assessment: Per anesthesia. After reviewing the risks and benefits, the patient was deemed in satisfactory condition to undergo the procedure. After I obtained informed consent, the scope was passed under direct vision. Throughout the procedure, the patient's blood pressure, pulse, and oxygen saturations were monitored continuously. The colonoscope was introduced through the anus and advanced to the cecum, identified by the appendiceal orifice, ileocecal valve and palpation. The colonoscopy was performed without difficulty. The patient tolerated the procedure well. The quality of the bowel preparation was adequate to identify polyps. Scope In: 7:49:56 AM Scope Withdrawal Time 0 hours 13 minutes 30 seconds Scope Out: 8:07:14 AM Total Procedure Duration Time 0 hours 17 minutes 18 seconds Findings: The perianal and digital rectal examinations were normal. Five sessile polyps were found in the sigmoid colon. The polyps were less than 5 mm in size. These polyps were removed with a cold biopsy forceps. Resection and retrieval were complete. The exam was otherwise without abnormality on direct and retroflexion views. Impression: - Five less than 5 mm polyps in the sigmoid colon, removed with a cold biopsy forceps. Resected and retrieved. - The examination was otherwise normal on direct and retroflexion views. Recommendation: - Discharge patient to home. - Resume previous diet. - Continue present medications. - Await pathology results. - Repeat colonoscopy in 3 - 5 years for surveillance based on pathology results. Procedure Code(s): --- Professional --- 36464, PT, Colonoscopy, flexible; with biopsy, single or multiple Diagnosis Code(s): --- Professional --- Z86.010, Personal history of colonic polyps D12.5, Benign neoplasm of sigmoid colon CPT copyright 2021 [employer]. All rights reserved. The codes documented in this report are preliminary and upon health information director review may be revised to meet current compliance requirements. MD Vandana Tian MD 06/15/2024 8:19:12 AM This report has been signed electronically. Number of Addenda: 0 Note Initiated On: 06/15/2024 7:49 AM 06/15/24 0819 Date Vandana Gutierrez MD Cosigner Signature: Date (if indicated) CC: Dr. Vandana Gutierrez MD; [facility] Date Dictated: 06/15/24 0749 Date Transcribed: Towel Distributor: TR Signed Normal [facility] EGD Reporton 06-15-2024 EGD Report [facility] Medical Records Department [address] [place] [address] EGD Report MR#: [id number] Acct: [id number] Name: OPLA CRUZ Rep #: [id number] : 1955 69 From: Vandana Gutierrez MD PCP: [facility] Status:REG [facility] Patient Name: Opal Cruz Procedure Date: 06/15/2024 7:27 AM Date of : 1955 Age: 69 Procedure: Upper GI endoscopy Indications: Heartburn Providers: Vandana Gutierrez MD Referring MD: Medicines: Monitored Anesthesia Care Patient Profile: This is a 69 year old male. Complications: No immediate complications. Procedure: Pre-Anesthesia Assessment: - Prior to the procedure, a History and Physical was performed, and patient medications and allergies were reviewed. The patient's tolerance of previous anesthesia was also reviewed. The risks and benefits of the procedure and the sedation options and risks were discussed with the patient. All questions were answered, and informed consent was obtained. Prior Anticoagulants: The patient has taken no anticoagulant or antiplatelet agents. ASA Grade Assessment: Per anesthesia. After reviewing the risks and benefits, the patient was deemed in satisfactory condition to undergo the procedure. After obtaining informed consent, the endoscope was passed under direct vision. Throughout the procedure, the patient's blood pressure, pulse, and oxygen saturations were monitored continuously. The colonoscope was introduced through the mouth, and advanced to the second part of duodenum. The upper GI endoscopy was accomplished without difficulty. The patient tolerated the procedure well. Scope In: 7:42:37 AM Scope Out: 7:48:55 AM Total Procedure Duration Time 0 hours 6 minutes 18 seconds Findings: LA Grade D (one or more mucosal breaks involving at least 75% of esophageal circumference) esophagitis with no bleeding was found 40 to 44 cm from the incisors. Biopsies were taken with a cold forceps for histology. Moderately erythematous mucosa without bleeding was found in the gastric antrum. Biopsies were taken with a cold forceps for histology. Biopsies were taken with a cold forceps for Helicobacter pylori cultures. The cardia and gastric fundus were normal on retroflexion. The examined duodenum was normal. The Z-line was irregular and was found 40 cm from the incisors. Impression: - LA Grade D esophagitis with no bleeding. Biopsied. - Erythematous mucosa in the antrum. Biopsied. - Normal examined duodenum. Recommendation: - Await pathology results. - Discharge patient to home. - Resume previous diet. - Continue present medications. - Use Prilosec (omeprazole) 40 mg PO daily. - Use sucralfate tablets 1 gram PO QID for 1 month. Procedure Code(s): --- Professional --- 59449, Esophagogastroduodenosc opy, flexible, transoral; with biopsy, single or multiple Diagnosis Code(s): --- Professional --- K20.90, Esophagitis, unspecified without bleeding K31.89, Other diseases of stomach and duodenum R12, Heartburn CPT copyright 2021 [employer]. All rights reserved. The codes documented in this report are preliminary and upon health information director review may be revised to meet current compliance requirements. MD Vandana Tian MD 06/15/2024 8:23:14 AM This report has been signed electronically. Number of Addenda: 0 Note Initiated On: 06/15/2024 7:27 AM 06/15/24 0823 Date Vandana Gutierrez MD Cosigner Signature: Date (if indicated) CC: Dr. Vandana Gutierrez MD; [facility] Date Dictated: 06/15/24726 Date Transcribed: Towel Distributor: TR Signed Normal [facility] H Pylori (initial)on 024 H Pylori (initial) --- Patient Age/Sex Location Account Attending Physician OPAL CRUZ 69/M EN [id number] Dr. Vandana Gutierrez MD Specimen: [id number] Received: 06/15/24 Status: ARAMIS Yeager Num: [id number] Spec Type: IMMUNO Subm Dr: Dr. Vandana Gutierrez MD PHYSICIAN INSTITUTION [place] [address] SPECIMEN INFORMATION: Tissue Source: A- Gastric antrum biopsy Clinical Info: History of colonic polyps, GERD Specimen Number: [id number] CPT code: 30807 METHODOLOGY: Deparaffinized sections of prefer/formalin-fixed tissue or PAP/DQ stained slides are incubated with monoclonal/polyclonal antibodies/oligonucleot judit probes. Localization is made via biotin free immunoperoxidase method. Appropriate controls are performed and reacted as expected. Results on target cell population are indicated in the following table: RESULTS: ANTIBODY / CLONE RESULT Block A H Pylori (polyclonal) negative These tests were developed and their performance characteristics determined by [facility]. They may not have been cleared or approved by the U.S. Food and Drug Administration. The FDA has determined that such clearance or approval is not necessary. The above immunohistochemical/mg Felix markers are ordered and reviewed by the Pathologist. INTERPRETATION: A. Gastric antrum, biopsy: Negative for Helicobacter pylori organisms. 06/17/2024 Signed (signature on file) Dr. Enmanuel Hawthorne MD 06/17/[address] [facility] Comment on above: Performed By: #### L 501.4020, L500.2500, L300.4310, L300.3900, L100.0100 #### [facility] [address] [place], [address] MR/POSTOP.Kg 06-15-2024 MR/POSTOP.[facility] Medical Records Department [address] [place] [address] Anesthesia Postop Eval I 06/15/24 0817 MR#: [id number] Acct: [id number] Name: OPAL CRUZ Rep #: [id number] : 1955 69 From: Fernando John PCP: [facility] Status:REG SDC Y Race: C Location: [place] [address] Anesthesia: Postop Eval I Current Vital Signs Temperature: 97.3 F Pulse Rate: 74 Blood Pressure: 85/52 Respiratory Rate: 16 Pulse Ox: 97 Oxygen Delivery Method: Room Air Assessment Airway patent: Yes Spontaneous unlabored respirations: Yes Mental status: Asleep nausea: No Vomiting: No Anesthesia Complication: No Fluid Hydration Crystalloid volume administer (ml): 60 Total IV fluid infused: 60 Progress Note Anesthesia document: Postop Eval 1 completed: Yes 06/15/24822 Date Fernando Bunnignjovana Signature: Date CC: Signed Normal [facility] MR/[id number] 06-15-2024 [facility] Medical Records Department [address] [place] [address] Anesthesia Postop Eval II 06/15/24833 MR#: [id number] Acct: [id number] Name: OPAL CRUZ Rep #: [id number] : 1955 69 From: Lamont Ledesma MD PCP: [facility] Status:REG [facility] Y Race: C Location: [place] [address] Anesthesia Postop Eval I Sum Postop Eval Completion status Anesthesia document: Postop Eval 1 completed: Yes Anesthesia Postop Eval I Summary Anesthesia Postop Eval I Summary: Anesthesia Postop Eval I: Assessment Summary Airway patent Yes 06/15/24 08:23 [email or web address] Spontaneous unlabored Yes 06/15/24 08:23 [email or web address] respirations Mental status Asleep 06/15/24 08:23 [email or web address] nausea No 06/15/24 08:23 [email or web address] Vomiting No 06/15/24 08:23 [email or web address] Anesthesia Postop Eval I: Fluid Summary Crystalloid volume administer 60 06/15/24 08:23 [email or web address] (ml) Colloids volume administered ( ml) Blood Product volume administered (ml) Total IV fluid infused 60 06/15/24 08:23 [email or web address] Anesthesia Postop Eval I: Summary Notes Anesthesia Complication No 06/15/24 08:23 [email or web address] Anesthesia Complication Comment: Post-operative progress note Anesthesia: Postop Eval II Evaluation Mental status: Awake Pain Level: 0 nausea: No Vomiting: No 06/15/2434 Date Lamont Graham Signature: Date CC: Signed Normal [facility] Surgery Specimen Level Wu 06-15-2024 Surgery Specimen Level IV Patient Age/Sex Location Account Attending Physician OPAL CRUZ 69/M EN [id number] Dr. Vandana Gutierrez MD Specimen: [id number] Received: 06/15/24 Status: ARAMIS Yeager Num: [id number] Spec Type: COLON BX Subm Dr: Dr. Vandana Gutierrez MD HEADER OPERATION: Colonoscopy with biopsy, EGD with biopsy PRE-OP DIAGNOSIS: History of colonic polyps, GERD TISSUE SUBMITTED: A- Gastric antrum biopsy, B- Distal esophagus biopsy, C- Sigmoid colon polyp biopsy #1, D- Sigmoid colon biopsy #2 MICROSCOPIC DIAGNOSIS A. Gastric antrum, biopsy: Mild gastritis. See microscopic description and comment. B. Distal esophagus, biopsy: Fragments of squamous mucosa with changes consistent with gastroesophageal reflux disease. See comment. C. Sigmoid colon polyp #1, biopsy: Fragments of tubular adenoma. Fragments of hyperplastic polyp. D. Sigmoid colon polyp #2, biopsy: Hyperplastic polyp. SJ.mr 06/17/2024 COMMENT A. The results of immunohistochemistry for Helicobacter pylori will be reported separately ([id number]). B. Mild increase of eosinophils is also noted. MICROSCOPIC DESCRIPTION Slides are reviewed. A. The specimen shows fragments of gastric mucosa with chronic inflammatory cell infiltrates in the lamina propria consisting of lymphocytes and plasma cells, consistent with mild chronic gastritis. GROSS DESCRIPTION A. Received in fixative is one container labeled with the patient's name and designated Gastric antrum biopsy." The specimen consists of one irregular fragment of light li soft tissue that measures 0.5 x 0.2 x 0.1 cm. The specimen is totally submitted in one cassette. B. Received in fixative is one container labeled with the patient's name and designated Distal esophagus biopsy." The specimen consists of multiple irregular fragments of light li soft tissue that in aggregate measure 1.2 x 0.5 x 0.2 cm. The specimen is totally submitted in one cassette. Patient Age/Sex Location Account Attending Physician OPAL CRUZ 69/M EN [id number] Dr. Vandana Gutierrez MD C. Received in fixative is one container labeled with the patient's name and designated Sigmoid colon polyp biopsy #1." The specimen consists of multiple irregular fragments of light li soft tissue that in aggregate measure 1.5 x 0.3 x 0.2 cm. The specimen is totally submitted in one cassette. D. Received in fixative is one container labeled with the patient's name and designated Sigmoid colon biopsy #2." The specimen consists of one irregular fragment of light li soft tissue that measures 0.5 x 0.4 x 0.2 cm. The specimen is totally submitted in one cassette. 06/15/2024 TC:1 [facility]:[id number] Patient Age/Sex Location Account Attending Physician OPAL CRUZ 69/M EN [id number] Dr. Vandana Gutierrez MD Signed (signature on file) Dr. Enmanuel Hawthorne MD 06/17/[address] [facility] Comment on above: Performed By: #### L 500.4050, L501.6900, L100.0100, L501.2450 #### [facility] [address] [place], [place], [id number] Bedside Glucoseon 06-14-2024 FINGERSTICK GLU 119 mg/dL High 74-[address] [facility] Comment on above: Result Comment: REN LOCKWOOD OF PATIENT CARE PER NURSING PROTOCOL Performed By: #### L 501.080 #### [facility] [address] [place], [place], [id number] Abdomen/Pelvis W IV Cont ONL Yon 04-05-2024 Abdomen/Pelvis W IV Cont ONLY [facility] Imaging Services [address] [place], [place] [address] Abdomen/Pelvis W IV Cont ONLY MR#: [id number] Acct: [id number] Name: OPAL CRUZ Rep #: [id number] : 1955 M 69 From: Jose lyle MD PCP: [facility] Status: REG ER Study: Abdomen/Pelvis W IV Cont ONLY Date of Exam: Exam# [id number] Ordering Dr: [place] [id number] STUDY: CT ABDOMEN AND PELVIS WITH CONTRAST REASON FOR EXAM: Male, 69 years old. Pancreatitis, no history of alcohol, status post c RADIATION DOSAGE (If Supplied By Facility): CTDIvol = ( 17.64 ) mGy, DLP = ( 1238.95 ) mGycm TECHNIQUE: Transaxial images were obtained from the dome of the diaphragm to the symphysis pubis without oral contrast. IV 100mL Isovue-300 was administered. Sagittal and coronal images were reconstructed. Individualized dose optimization techniques were used for this CT. COMPARISON: None. FINDINGS: The visualized lung bases are unremarkable. The visualized portions of the heart are within normal limits. Normal liver. There are surgical clips in the gallbladder fossa consistent with a prior cholecystectomy. Normal spleen. Normal pancreas. Normal bilateral adrenal glands. Normal right kidney. Normal left kidney. Evaluation of the GI tract is limited by absence of oral contrast. Cannot exclude stomach wall thickening. No dilated loops of bowel or evidence for obstruction. Cannot exclude segmental thickening of the bahtti of the small or large bowel. Cannot exclude enteritis or colitis. Moderate diffuse fecal retention. Appendix within normal limits. There is diffuse atherosclerotic calcification of the abdominal aorta, without a demonstrated aneurysm. Normal inferior vena cava. Normal retroperitoneum. Normal urinary bladder. There is a small left-sided inguinal hernia containing adipose tissue. There are diffuse degenerative changes of the visualized lumbar spine. Compression fractures are seen of L1 and L4, probably old. CT/Abdomen/Pelvis W IV Cont ONLY IMPRESSION: No definite acute or significant abnormality seen. Electronically Signed: Jose Mcbride MD at 16:40 EDT , CC: Dr. Real Mendoza MD; [facility] Towel Distributor: Signed Normal [facility] Basic Metabolic Profile (BMP )on 04-05-2024 BUN/CRE 16.4 RATIO Normal 04-[address] [facility] Comment on above: Performed By: #### L 501.4020, L500.2500, L300.4310, L300.3900, L100.0100 #### [facility] [address] [place], [address] CA,Total 9.2 mg/dL Normal 8.5-10.[address] [facility] Comment on above: Performed By: #### L 501.4020, L500.2500, L300.4310, L300.3900, L100.0100 #### [facility] [address] [place], [address] Chloride [Moles/Vol] 102 mmol/L Normal 98-107 [facility] Comment on above: Performed By: #### L 501.4020, L500.2500, L300.4310, L300.3900, L100.0100 #### [facility] [address] [place], [address] CO2 [Moles/Vol] 29.0 mmol/L Normal 21.0-32.[address] [facility] Comment on above: Performed By: #### L 501.4020, L500.2500, L300.4310, L300.3900, L100.0100 #### [facility] [address] [place], [address] Creatinine [Mass/Vol] 1.40 mg/dL High 0.70-1.30 [facility] Comment on above: Result Comment: The validity of the calculated GFR GFRAA in patients over 70 years has not been determined. Clinical correlation is essential. Performed By: #### L 501.4020, L500.2500, L300.4310, L300.3900, L100.0100 #### [facility] [address] [place], [address] EST GFR - AA 65 mL/min Normal >[address] [facility] Comment on above: Result Comment: Afri can [place] GFR Calc Performed By: #### L 501.4020, L500.2500, L300.4310, L300.3900, L100.0100 #### [facility] [address] [place], [address] GAP 7 Normal 5-[address] [facility] Comment on above: Performed By: #### L 501.4020, L500.2500, L300.4310, L300.3900, L100.0100 #### [facility] [address] [place], [address] GFR/1.73 sq M.predicted among non-blacks MDRD (S/P/Bld) [Vol rate/Area] 54 mL/min/{1.73_m2} Low >[address] [facility] Comment on above: Result Comment: Non- GFR Calc Performed By: #### L 501.4020, L500.2500, L300.4310, L300.3900, L100.0100 #### [facility] [address] [place], [address] Glucose [Mass/Vol] 130 mg/dL High 74-106 [facility] Comment on above: Result Comment: Fast ing Glucose result greater than or equal to 126 mg/dL suggests DIABETES MELLITUS per A.D.A. criteria. Performed By: #### L 501.4020, L500.2500, L300.4310, L300.3900, L100.0100 #### [facility] [address] [place], [address] Potassium [Moles/Vol] 3.9 mmol/L Normal 3.5-5.1 [facility] Comment on above: Performed By: #### L 501.4020, L500.2500, L300.4310, L300.3900, L100.0100 #### [facility] [address] [place], [address] Sodium [Moles/Vol] 138 mmol/L Normal 136-145 [facility] Comment on above: Performed By: #### L 501.4020, L500.2500, L300.4310, L300.3900, L100.0100 #### [facility] [address] [place], [address] Urea nitrogen [Mass/Vol] 23 mg/dL High 7-[address] [facility] Comment on above: Performed By: #### L 501.4020, L500.2500, L300.4310, L300.3900, L100.0100 #### [facility] [address] [place], [address] CBC-Complete Blood Cnt No Di ffon 04-05-2024 Erythrocyte distribution width (RBC) [Ratio] 12.6 % Normal 11.6-14.[address] [facility] Comment on above: Performed By: #### L 501.4020, L500.2500, L300.4310, L300.3900, L100.0100 #### [facility] [address] [place], [address] Hematocrit (Bld) [Volume fraction] 43.3 % Normal 40-[address] [facility] Comment on above: Performed By: #### L 501.4020, L500.2500, L300.4310, L300.3900, L100.0100 #### [facility] [address] [place], [address] Hemoglobin (Bld) [Mass/Vol] 14.4 g/dL Normal 13.0-16.[address] [facility] Comment on above: Performed By: #### L 501.4020, L500.2500, L300.4310, L300.3900, L100.0100 #### [facility] [address] [place], [address] MCH (RBC) [Entitic mass] 28.9 pg Normal 27.0-32.[address] [facility] Comment on above: Performed By: #### L 501.4020, L500.2500, L300.4310, L300.3900, L100.0100 #### [facility] [address] [place], [address] MCHC (RBC) [Mass/Vol] 33.3 g/dL Normal 32-36 [facility] Comment on above: Performed By: #### L 501.4020, L500.2500, L300.4310, L300.3900, L100.0100 #### [facility] [address] [place], [address] MCV (RBC) [Entitic vol] 86.9 fL Normal 80-94 [facility] Comment on above: Performed By: #### L 501.4020, L500.2500, L300.4310, L300.3900, L100.0100 #### [facility] [address] [place], [address] Platelet mean volume (Bld) [Entitic vol] 10.2 fL Normal 6.2-12.[address] [facility] Comment on above: Performed By: #### L 501.4020, L500.2500, L300.4310, L300.3900, L100.0100 #### [facility] [address] [place], [address] Platelets (Bld) [#/Vol] 168 10*3/uL Normal 150-[address] [facility] Comment on above: Performed By: #### L 501.4020, L500.2500, L300.4310, L300.3900, L100.0100 #### [facility] [address] [place], [address] RBC (Bld) [#/Vol] 4.98 10*6/uL Normal 4.6-6.2 [facility] Comment on above: Performed By: #### L 501.4020, L500.2500, L300.4310, L300.3900, L100.0100 #### [facility] [address] [place], [address] RDW SD 39.7 fl Normal 35.1-43.[address] [facility] Comment on above: Performed By: #### L 501.4020, L500.2500, L300.4310, L300.3900, L100.0100 #### [facility] [address] [place], [address] WBC (Bld) [#/Vol] 8.7 10*3/uL Normal 4.4-11.0 [facility] Comment on above: Performed By: #### L 501.4020, L500.2500, L300.4310, L300.3900, L100.0100 #### [facility] [address] [place], [address] Emergency Department Summary on 04-05-2024 Emergency Department Summary [facility] Medical Records Department [address] [place] [address] Emergency Department Summary 04/05/24 MR#: [id number] Acct: [id number] Name: OPAL CRUZ Rep #: [id number] : 1955 69 From: Real Mendoza MD PCP: [facility] Status:REG ER Location: ED HPI History of Present Illness Chief Complaint: Nausea/Vomiting Detail of Chief Complaint: Upper epigastric/left upper quadrant abdominal pain with nausea and vomitin Informant: patient Onset/Context/Timing Onset: Yesterday (Lipase was greater than 800 yesterday.) Timing: Continuous and Intermittent Quality: Pain Location: Upper abdomen previously described Current Severity: Mild Maximum Severity: Moderate Worsened by: Palpation and movement Relieved by: Nothing Associated Symptoms Associated Symptoms: Nausea and vomiting Narrative Narrative: Patient is a 69-year-old male. He was seen yesterday for hyperglycemia and found to have an elevated lipase. Lipase at that time was 809. He is status postcholecystectomy. He has not had a any alcoholic beverage in decades. He is vomited several times since yesterday. He does endorse thirst, dry mouth and lightheadedness. Patient's creatinine yesterday was elevated 1.48. Patient's creatinine was normal January 12, 2024. It has varied between 1.36 and 1.91. He denies history of pancreatitis. He was seen today by Dr. Bridges who sent him to the ER for CAT scan of the abdomen. Patient does endorse decreased urine output. He denies dysuria, frequency, urgency or hematuria. He does have a history of diabetes, essential hypertension, hyperlipidemia and cardiomyopathy. Prior similar symptoms: Yes Recent Illness/Hospitalization : Yes [facility] Medical History Generalized weakness Cellulitis of leg, right Acute kidney injury Cellulitis Left-sided weakness Right pontine stroke Diabetic retinopathy Narcolepsy Depression Anxiety Diabetic polyneuropathy Vitamin D deficiency Migraine headache Obstructive sleep apnea Hyperlipidemia Coronary artery disease Ischemic stroke Hernia History of COVID-19 Vision loss of right eye Hearing loss, left Hearing loss, right Hypothyroidism Chronic pain Osteoporosis GERD (gastroesophageal reflux disease) GI bleed Former smoker CPAP (continuous positive airway pressure) dependence Sleep apnea Chest pain Elevated troponin Elevated lipase Myocardial infarct DM2 (diabetes mellitus, type 2) Essential (primary) hypertension Home Medications ???Medication ???Instructions ???Recorded ???Last Taken ???Type nortriptyline 10 mg capsule 30 mg PO DAILY migraines 10/05/16 02/10/24 History aspirin 81 mg chewable tablet 81 mg PO DAILY heart health 08/17/19 02/10/24 History acetaminophen 500 mg tablet 1,000 mg (2 x 500 mg) PO Q6H PRN 04/16/22 Unknown Rx PRN Pain Score 1-10 #1 TAB amlodipine 10 mg tablet 5 mg PO DAILY blood pressure 04/30/22 02/09/24 21:00 History atorvastatin 40 mg tablet (Lipitor) 40 mg PO QHS cholesterol 12/30/23 02/09/24 History furosemide 20 mg tablet 20 mg PO DAILY blood pressure 12/30/23 02/10/24 History spironolactone 25 mg tablet 25 mg PO DAILY blood pressure 12/30/23 02/10/24 History (Aldactone) tamsulosin 0.4 mg capsule 0.8 mg (2 x 0.4 mg) PO DAILY@1730 01/05/24 02/09/24 Rx #0 caps insulin regular hum U-500 conc 500 90 unit subcut BID diabetes 02/10/24 02/10/24 History unit/mL(3 mL) subcut pen (Humulin R U-500 (Conc) Insulin Kwikpen) lisinopril 40 mg tablet 40 mg PO DAILY blood pressure 02/10/24 02/10/24 History metoprolol succinate 25 mg 25 mg PO DAILY blood pressure 02/10/24 02/09/24 History tablet,extended release 24 hr empagliflozin 25 mg tablet 12.5 mg PO DAILY diabetes 04/05/24 Unknown History magnesium oxide 420 mg tablet 420 mg PO ONCE 04/05/24 Unknown History omega 0-ezh-fvs-fish oil 300 1 cap PO BID 04/05/24 Unknown History mg-1,000 mg capsule,delayed release (Fish Oil) ondansetron 4 mg disintegrating 4 mg PO Q8H PRN PRN Nausea #10 tabs 04/05/24 Unknown Rx tablet pregabalin 50 mg capsule (Lyrica) 150 mg PO BID neuropathy 04/05/24 Unknown History sertraline 100 mg tablet 150 mg PO DAILY depression 04/05/24 Unknown History Allergy/AdvReac Type Severity Reaction Status Date / Time No Known Allergies Allergy Verified 04/05/24 13:25 Family History Mother Diabetes Father Heart disease CVA (cerebral vascular accident) Surgical History History of hernia surgery History of cholecystectomy History of back surgery Social History household members: spouse and children housing: apartment current occupational status: (more content not included)... Normal [facility] Lipaseon 04-05-2024 Lipase [Catalytic activity/Vol] 199 U/L High 13-[address] [facility] Comment on above: Result Comment: Andrez lugo note: LIPASE revised reference range effective 22. New Lipase methodology. Expected to produce lower values than the previous assay method. NEW Reference Range: 13 - 75 U/L Performed By: #### L 501.4020, L500.2500, L300.4310, L300.3900, L100.0100 #### [facility] [address] [place], [address] Surgery Visit Reporton 04-05 Surgery Visit Report [facility] [address] [place] [address] OFFICE VISIT Date of Service: 04/05/24 MR#: [id number] Acct: [id number] Name: OPAL CRUZ Rep #: [id number] : 1955 Provider: Dr. Vandana denton MD Age/Sex: 69/M Location: [facility] Status: Signed Intake Vital Signs 02/10/24 19:02 04/04/24 16:50 04/05/24 13:24 Height 5 ft 6 in 5 ft 6 in 5 ft 6 in Weight: 201 lb BMI 32.4 BP 177/91 H Blood Pressure Location Lt brachial Position Sitting Respiration 18 Intake Visit Reasons: COLONOSCOPY Chief Complaint: c-scope Chief Lending Officer Required: No Is patient in pain?: Yes (ruq abd) Allergies No Known Allergies Allergy (Verified 04/05/24 13:25) Medications ???Medication ???Instructions ???Recorded ???Confirmed ???Type nortriptyline 10 mg capsule 30 mg PO DAILY migraines 10/05/16 04/05/24 History aspirin 81 mg chewable tablet 81 mg PO DAILY heart health 08/17/19 04/05/24 History acetaminophen 500 mg tablet 1,000 mg (2 x 500 mg) PO Q6H PRN 04/16/22 04/05/24 Rx PRN Pain Score 1-10 #1 TAB amlodipine 10 mg tablet 5 mg PO DAILY blood pressure 04/30/22 04/05/24 History atorvastatin 40 mg tablet (Lipitor) 40 mg PO QHS cholesterol 12/30/23 04/05/24 History furosemide 20 mg tablet 20 mg PO DAILY blood pressure 12/30/23 04/05/24 History spironolactone 25 mg tablet 25 mg PO DAILY blood pressure 12/30/23 04/05/24 History (Aldactone) tamsulosin 0.4 mg capsule 0.8 mg (2 x 0.4 mg) PO DAILY@1730 01/05/24 04/05/24 Rx #0 caps insulin regular hum U-500 conc 500 90 unit subcut BID diabetes 02/10/24 04/05/24 History unit/mL(3 mL) subcut pen (Humulin R U-500 (Conc) Insulin Kwikpen) lisinopril 40 mg tablet 40 mg PO DAILY blood pressure 02/10/24 04/05/24 History metoprolol succinate 25 mg 25 mg PO DAILY blood pressure 02/10/24 04/05/24 History tablet,extended release 24 hr empagliflozin 25 mg tablet 12.5 mg PO DAILY diabetes 04/05/24 04/05/24 History magnesium oxide 420 mg tablet 420 mg PO ONCE 04/05/24 04/05/24 History omega 0-gmu-qro-fish oil 300 1 cap PO BID 04/05/24 04/05/24 History mg-1,000 mg capsule,delayed release (Fish Oil) ondansetron 4 mg disintegrating 4 mg PO Q8H PRN PRN Nausea #10 tabs 04/05/24 Rx tablet pregabalin 50 mg capsule (Lyrica) 150 mg PO BID neuropathy 04/05/24 04/05/24 History sertraline 100 mg tablet 150 mg PO DAILY depression 04/05/24 04/05/24 History Have you fallen in the past year?: Yes PFSH Medical History Generalized weakness Cellulitis of leg, right Acute kidney injury Cellulitis Left-sided weakness Right pontine stroke Diabetic retinopathy Narcolepsy Depression Anxiety Diabetic polyneuropathy Vitamin D deficiency Migraine headache Obstructive sleep apnea Hyperlipidemia Coronary artery disease Ischemic stroke Hernia History of COVID-19 Vision loss of right eye Hearing loss, left Hearing loss, right Hypothyroidism Chronic pain Osteoporosis GERD (gastroesophageal reflux disease) GI bleed Former smoker CPAP (continuous positive airway pressure) dependence Sleep apnea Chest pain Elevated troponin Elevated lipase Myocardial infarct DM2 (diabetes mellitus, type 2) Essential (primary) hypertension Surgical History History of hernia surgery History of cholecystectomy History of back surgery Family History Mother Diabetes Father Heart disease CVA (cerebral vascular accident) Social History household members: spouse and children housing: apartment current occupational status: disabled Smoking Status: Former smoker Tobacco: How many years used: 30 how long ago did patient quit smokin alcohol intake: never substance use type: does not use diet: diabetic caffeine: Yes Type: coffee Number of servings: 1 what type of physical activity do you participate in: walking HPI HPI HPI: 69-year-old male presents for colonoscopy due to history of colon polyps. Patient last colonoscopy of 2016 with tubular adenomas at that time, [facility] Patient has bowel movements about every 2 to 3 days. Denies any blood. Patient denies any family history of colon cancer. Patient still having nausea and vomiting unable to keep anything down since yesterday. Patient did go to the ER yesterday was found to have lipase of 809 as well as an ALT that was elevated the rest liver functions were normal. Patient states that he is has had some reflux and burning upper esophagus for the past couple days states its constant did try Pepcid however he did (more content not included)... Normal [facility] Acetone Serumon 04-04-2024 ACETONE SERUM Negative Normal NEG [facility] Comment on above: Performed By: #### L 500.4050, L501.6900, L100.0100, L501.2450 #### [facility] [place], [address] CBC W/Diff, Automatedon 10-2 0-2024 Absolute Lymph 1.10 X10 3/uL Normal 0.83-4.[address] [facility] Comment on above: Performed By: #### L 500.4050, L501.6900, L100.0100, L501.2450 #### [facility] [address] [place], [address] Absolute Neut 7.4 X10 3/uL Normal 2.0-7.[address] [facility] Comment on above: Performed By: #### L 500.4050, L501.6900, L100.0100, L501.2450 #### [facility] [address] [place], [address] Basophils/100 WBC (Bld) 0.4 % Normal 0-1 [facility] Comment on above: Performed By: #### L 500.4050, L501.6900, L100.0100, L501.2450 #### [facility] [address] [place], [address] Eosinophils/100 WBC (Bld) 0.3 % Normal 0-[address] [facility] Comment on above: Performed By: #### L 500.4050, L501.6900, L100.0100, L501.2450 #### [facility] [address] [place], [address] Erythrocyte distribution width (RBC) [Ratio] 12.3 % Normal 11.6-14.[address] [facility] Comment on above: Performed By: #### L 500.4050, L501.6900, L100.0100, L501.2450 #### [facility] [address] [place], [address] Hematocrit (Bld) [Volume fraction] 45.7 % Normal 40-[address] [facility] Comment on above: Performed By: #### L 500.4050, L501.6900, L100.0100, L501.2450 #### [facility] [address] [place], [address] Hemoglobin (Bld) [Mass/Vol] 15.8 g/dL Normal 13.0-16.[address] [facility] Comment on above: Performed By: #### L 500.4050, L501.6900, L100.0100, L501.2450 #### [facility] [address] [place], [address] IG% 0.300 Normal 0.0-0.[address] [facility] Comment on above: Result Comment: IG% - Immature Granulocytes (promyelocytes, myelocytes and metamyelocytes) > 1% indicates that a LEFT SHIFT is Present. Performed By: #### L 500.4050, L501.6900, L100.0100, L501.2450 #### [facility] [address] [place], [address] Lymphocytes/100 WBC (Bld) 11.8 % Low 19-[address] [facility] Comment on above: Performed By: #### L 500.4050, L501.6900, L100.0100, L501.2450 #### [facility] [address] [place], [address] MCH (RBC) [Entitic mass] 29.3 pg Normal 27.0-32.[address] [facility] Comment on above: Performed By: #### L 500.4050, L501.6900, L100.0100, L501.2450 #### [facility] [address] [place], [address] MCHC (RBC) [Mass/Vol] 34.6 g/dL Normal 32-36 [facility] Comment on above: Performed By: #### L 500.4050, L501.6900, L100.0100, L501.2450 #### [facility] [address] [place], [address] MCV (RBC) [Entitic vol] 84.8 fL Normal 80-94 [facility] Comment on above: Performed By: #### L 500.4050, L501.6900, L100.0100, L501.2450 #### [facility] [address] [place], [address] Monocytes/100 WBC (Bld) 7.5 % Normal 0-10 [facility] Comment on above: Performed By: #### L 500.4050, L501.6900, L100.0100, L501.2450 #### [facility] [address] [place], [address] Neutrophils/100 WBC (Bld) 79.7 % High 47-[address] [facility] Comment on above: Performed By: #### L 500.4050, L501.6900, L100.0100, L501.2450 #### [facility] [address] [place], [address] Nucleated RBC (Bld) [#/Vol] 0 10*3/uL Normal 0-[address] [facility] Comment on above: Performed By: #### L 500.4050, L501.6900, L100.0100, L501.2450 #### [facility] [address] [place], [address] Platelet mean volume (Bld) [Entitic vol] 10.2 fL Normal 6.2-12.[address] [facility] Comment on above: Performed By: #### L 500.4050, L501.6900, L100.0100, L501.2450 #### [facility] [address] [place], [address] Platelets (Bld) [#/Vol] 179 10*3/uL Normal 150-[address] [facility] Comment on above: Performed By: #### L 500.4050, L501.6900, L100.0100, L501.2450 #### [facility] [address] [place], [address] RBC (Bld) [#/Vol] 5.39 10*6/uL Normal 4.6-6.2 [facility] Comment on above: Performed By: #### L 500.4050, L501.6900, L100.0100, L501.2450 #### [facility] [address] [place], [address] RDW SD 37.3 fl Normal 35.1-43.[address] [facility] Comment on above: Performed By: #### L 500.4050, L501.6900, L100.0100, L501.2450 #### [facility] [address] [place], [address] WBC (Bld) [#/Vol] 9.3 10*3/uL Normal 4.4-11.0 [facility] Comment on above: Performed By: #### L 500.4050, L501.6900, L100.0100, L501.2450 #### [facility] [address] [place] [place], [address] Chest 1 View (Portable)on Chest 1 View (Portable) [facility] Imaging Services [address] [place] [address] Chest 1 View (Portable) MR#: [id number] Acct: [id number] Name: OPAL CRUZ Rep #: [id number] : 1955 M 69 From: Stef Spear PCP: [facility] Status: REG ER Study: Chest 1 View (Portable) Date of Exam: 04/04/24 Exam# [id number] Ordering [place]: [place] [id number] STUDY: XR Chest 1 View 04/04/2024 7:27 PM REASON FOR EXAM: Male, 69 years old. Vomiting with hyperglycemia COMPARISON: 8.27.24 TECHNIQUE: XR Chest 1 View FINDINGS: There is no demonstrated pleural abnormality. There is an elevated right hemidiaphragm. Normal heart size. Normal mediastinum. Normal orin. Prominent appearing increased interstitial lung markings. Normal visualized pulmonary arteries. There is atherosclerotic calcification of the aortic arch with tortuosity. There are diffuse degenerative changes of the visualized thoracic spine. There is degenerative osteoarthritis of the bilateral shoulders. There are no acute findings of the upper abdomen. RAD/Chest 1 View (Portable) IMPRESSION: There are no acute findings. Electronically Signed: Stef Lyles MD at 20:10 EDT , CC: Dr. Gilles Miranda-Caden, ; [facility] Towel Distributor: Signed Normal [facility] Comprehensive Metabolic Prof ilon 04-04-2024 Albumin [Mass/Vol] 4.2 g/dL Normal 3.2-5.0 [facility] Comment on above: Result Comment: PT D ISCHARGED Performed By: #### L 500.4050, L501.6900, L100.0100, L501.2450 #### [facility] [address] [place], [address] Albumin/Globulin [Mass ratio] 0.9 {ratio} Normal 0.9-2.[address] [facility] Comment on above: Result Comment: PT D ISCHARGED Performed By: #### L 500.4050, L501.6900, L100.0100, L501.2450 #### [facility] [address] [place], [address] ALK P 115 U/L Normal 45-[address] [facility] Comment on above: Result Comment: PT D ISCHARGED Performed By: #### L 500.4050, L501.6900, L100.0100, L501.2450 #### [facility] [address] [place], [address] ALT [Catalytic activity/Vol] 82 U/L High 16-[address] [facility] Comment on above: Result Comment: PT D ISCHARGED Performed By: #### L 500.4050, L501.6900, L100.0100, L501.2450 #### [facility] [address] [place], [address] AST [Catalytic activity/Vol] 35 U/L Normal 15-[address] [facility] Comment on above: Result Comment: PT D ISCHARGED Performed By: #### L 500.4050, L501.6900, L100.0100, L501.2450 #### [facility] [address] [place], [address] Bilirubin [Mass/Vol] 0.50 mg/dL Normal 0.20-1.00 [facility] Comment on above: Result Comment: For patients on eltrombopag therapy, use of Dimension [place] TBIL is not recommended. Performed By: #### L 500.4050, L501.6900, L100.0100, L501.2450 #### [facility] [address] [place], [address] BUN/CRE 19.6 RATIO Normal 10-[address] [facility] Comment on above: Result Comment: PT D ISCHARGED Performed By: #### L 500.4050, L501.6900, L100.0100, L501.2450 #### [facility] [address] [place], [address] CA,Total 9.8 mg/dL Normal 8.5-10.[address] [facility] Comment on above: Result Comment: PT D ISCHARGED Performed By: #### L 500.4050, L501.6900, L100.0100, L501.2450 #### [facility] [address] [place], [address] Chloride [Moles/Vol] 101 mmol/L Normal 98-107 [facility] Comment on above: Result Comment: PT D ISCHARGED Performed By: #### L 500.4050, L501.6900, L100.0100, L501.2450 #### [facility] [address] [place], [address] CO2 [Moles/Vol] 29.0 mmol/L Normal 21.0-32.[address] [facility] Comment on above: Result Comment: PT D ISCHARGED Performed By: #### L 500.4050, L501.6900, L100.0100, L501.2450 #### [facility] [address] [place], [address] Creatinine [Mass/Vol] 1.48 mg/dL High 0.70-1.30 [facility] Comment on above: Result Comment: The validity of the calculated GFR GFRAA in patients over 70 years has not been determined. Clinical correlation is essential. Performed By: #### L 500.4050, L501.6900, L100.0100, L501.2450 #### [facility] [address] [place], [address] EST GFR - AA 61 mL/min Normal >[address] [facility] Comment on above: Result Comment: Afri can Ecuadorean GFR Calc Performed By: #### L 500.4050, L501.6900, L100.0100, L501.2450 #### [facility] [address] [place], [address] GAP 7 Normal 5-[address] [facility] Comment on above: Result Comment: PT D ISCHARGED Performed By: #### L 500.4050, L501.6900, L100.0100, L501.2450 #### [facility] [address] [place], [address] GFR/1.73 sq M.predicted among non-blacks MDRD (S/P/Bld) [Vol rate/Area] 50 mL/min/{1.73_m2} Low >[address] [facility] Comment on above: Result Comment: Non- GFR Calc Performed By: #### L 500.4050, L501.6900, L100.0100, L501.2450 #### [facility] [address] [place], [address] Globulin (S) [Mass/Vol] 4.8 g/dL High 2.2-4.2 [facility] Comment on above: Result Comment: PT D ISCHARGED Performed By: #### L 500.4050, L501.6900, L100.0100, L501.2450 #### [facility] [address] [place], [address] Glucose [Mass/Vol] 166 mg/dL High 74-106 [facility] Comment on above: Result Comment: Fast ing Glucose result greater than or equal to 126 mg/dL suggests DIABETES MELLITUS per A.D.A. criteria. Performed By: #### L 500.4050, L501.6900, L100.0100, L501.2450 #### [facility] [address] [place], [address] Potassium [Moles/Vol] 4.2 mmol/L Normal 3.5-5.1 [facility] Comment on above: Result Comment: PT D ISCHARGED Performed By: #### L 500.4050, L501.6900, L100.0100, L501.2450 #### [facility] [address] [place], [address] Sodium [Moles/Vol] 138 mmol/L Normal 136-145 [facility] Comment on above: Result Comment: PT D ISCHARGED Performed By: #### L 500.4050, L501.6900, L100.0100, L501.2450 #### [facility] [address] [place], [address] T PROT 9.0 g/dL High 6.4-8.[address] [facility] Comment on above: Result Comment: PT D ISCHARGED Performed By: #### L 500.4050, L501.6900, L100.0100, L501.2450 #### [facility] [address] [place], [address] Urea nitrogen [Mass/Vol] 29 mg/dL High 7-[address] [facility] Comment on above: Result Comment: PT D ISCHARGED Performed By: #### L 500.4050, L501.6900, L100.0100, L501.2450 #### [facility] [address] [place], [address] Emergency Department Summary on 04-04-2024 Emergency Department Summary [facility] Medical Records Department [address] [place] [address] Emergency Department Summary 04/04/24 MR#: [id number] Acct: [id number] Name: OPAL CRUZ Rep #: [id number] : 1955 69 From: Gilles Cowart DO PCP: [facility] Status:[facility] ER Location: ED HPI History of Present Illness Chief Complaint: Hyperglycemia Narrative Narrative: Chief complaint and HPI: Hyperglycemia. 69-year-old male with history of DM2, HTN, HLD, CHF presents for evaluation of hyperglycemia and nausea and vomiting. Patient states yesterday he developed nausea and vomiting. He states he checked his blood sugar and it was in the 300s. He states his baseline is usually in the 200s or lower. He takes 95 units of insulin in the morning. He states he takes 70 units of insulin in the evening. He states that he checked his blood sugar again this afternoon and it was in the 300s. He states he does not come until now secondary to him not having a ride. He denies any fever, chills, shortness of breath, chest pain, cough, URI symptoms, abdominal pain, diarrhea, dysuria. He states he did develop a sore throat after the vomiting. Review of systems: See HPI Medications: As listed on the chart Allergies: As listed on the chart PFSH: Per chart Vital signs: As listed on the chart. Reviewed. Physical exam: Gen: A O x3, NAD Head: Normocephalic, atraumatic Eyes: No sclera icterus, conjunctiva clear, PERRL, EOMI ENT: TMs clear BL, moist mucous membranes, posterior oropharynx unremarkable, uvula midline, tonsils not enlarged, no tonsillar exudate, poor dentition Neck: Trachea midline, No JVD, Full ROM, No meningismus CV: RRR, no murmurs, no peripheral edema Resp: Lungs CTA BL, no w/r/c GI: Abd soft, non-distended, non-tender, no r/r/g Musc: Full ROM, no deformity Skin: Warm, dry, no rash Neuro: Alert, oriented, grossly intact, sensation intact Psych: Cooperative, appropriate mood and affect [facility] Medical History Left-sided weakness Right pontine stroke Diabetic retinopathy Narcolepsy Depression Anxiety Diabetic polyneuropathy Vitamin D deficiency Migraine headache Obstructive sleep apnea Hyperlipidemia Coronary artery disease Ischemic stroke Hernia History of COVID-19 Vision loss of right eye Hearing loss, left Hearing loss, right Hypothyroidism Chronic pain Osteoporosis GERD (gastroesophageal reflux disease) GI bleed Former smoker CPAP (continuous positive airway pressure) dependence Sleep apnea Chest pain Elevated troponin Elevated lipase Myocardial infarct DM2 (diabetes mellitus, type 2) Essential (primary) hypertension Home Medications ???Medication ???Instructions ???Recorded ???Last Taken ???Type nortriptyline 10 mg capsule 30 mg PO DAILY migraines 10/05/16 02/10/24 History aspirin 81 mg chewable tablet 81 mg PO DAILY heart health 08/17/19 02/10/24 History acetaminophen 500 mg tablet 1,000 mg (2 x 500 mg) PO Q6H PRN 04/16/22 Unknown Rx PRN Pain Score 1-10 #1 TAB magnesium chloride 64 mg 128 mg (2 x 64 mg) PO BID 04/16/22 02/09/24 Rx (magnesium chloride) supplement #60 tabs tablet,delayed release (Mag 64) amlodipine 10 mg tablet 5 mg PO DAILY blood pressure 04/30/22 02/09/24 21:00 History sacubitril 49 mg-valsartan 51 mg 1 tab PO BID blood pressure #180 04/30/22 06/28/22 Rx tablet (Entresto) tabs metoclopramide HCl 10 mg tablet 10 mg PO Q6H PRN nausea and 04/27/23 Unknown Rx (Reglan) vomiting #10 tabs atorvastatin 40 mg tablet (Lipitor) 40 mg PO QHS cholesterol 12/30/23 02/09/24 History furosemide 20 mg tablet 20 mg PO DAILY blood pressure 12/30/23 02/10/24 History sertraline 100 mg tablet 100 mg PO DAILY depression 12/30/23 02/10/24 History spironolactone 25 mg tablet 25 mg PO DAILY blood pressure 12/30/23 02/10/24 History (Aldactone) melatonin 3 mg tablet 3 mg PO QHS PRN PRN Insomnia #0 01/05/24 Unknown Rx tabs tamsulosin 0.4 mg capsule 0.8 mg (2 x 0.4 mg) PO DAILY@1730 01/05/24 02/09/24 Rx #0 caps empagliflozin 25 mg tablet 25 mg PO DAILY diabetes 02/10/24 02/10/24 History insulin regular hum U-500 conc 500 90 unit subcut BID diabetes 02/10/24 02/10/24 History unit/mL(3 mL) subcut pen (Humulin R U-500 (Conc) Insulin Kwikpen) lisinopril 40 mg tablet 40 mg PO DAILY blood pressure 02/10/24 02/10/24 History metoprolol succinate 25 mg 25 mg PO DAILY blood pressure 02/10/24 02/09/24 History tablet,extended release 24 hr pregabalin 50 mg capsule (Lyrica) 50 mg PO BID neuropathy 02/10/24 02/10/24 History cefdinir 300 mg capsule 300 mg PO BID #14 caps 02/12/24 Unknown Rx Allergy/AdvReac Type Severity Reaction Status Date / Time No Known Allergies Allergy Verified 04/04/24 16:54 Family History (Reviewed (more content not included)... Normal [facility] Lipaseon 10-20-2024 Lipase [Catalytic activity/Vol] 809 U/L High 13-[address] [facility] Comment on above: Order Comment: LYLA WAGNER Result Comment: Andrez lugo note: LIPASE revised reference range effective 22. New Lipase methodology. Expected to produce lower values than the previous assay method. NEW Reference Range: 13 - 75 U/L Performed By: #### L 500.4050, L501.6900, L100.0100, L501.2450 #### [facility] [address] [place], [address] M100.678on 04-04-2024 M100.678 Pending SARS-CoV-2 (COVID 19) Negative INFLUENZA A Negative INFLUENZA B Negative RSV PCR Negative Normal [facility] Comment on above: Performed By: #### L 501.4020, L500.2500, L300.4310, L300.3900, L100.0100 #### [facility] [address] [place], [address] Urinalysis, Completeon 04-04 RBC 0-5 SEEN Normal 0-[address] [facility] Comment on above: Order Comment: 'TROP ' Serial specimen #1, #2 or #3: 1 Performed By: #### L 501.4020, L500.2500, L300.4310, L300.3900, L100.0100 #### [facility] [address] [place], [address] BACTERIA 0 SEEN Normal None Seen [facility] Comment on above: Order Comment: 'TROP ' Serial specimen #1, #2 or #3: 1 Performed By: #### L 501.4020, L500.2500, L300.4310, L300.3900, L100.0100 #### [facility] [address] [place], [address] EPI,SQUAMOUS 0 SEEN Normal 0-[address] [facility] Comment on above: Order Comment: 'TROP ' Serial specimen #1, #2 or #3: 1 Performed By: #### L 501.4020, L500.2500, L300.4310, L300.3900, L100.0100 #### [facility] [address] [place], [address] Mucus Ql (Urine sed) 0 SEEN Normal [facility] Comment on above: Order Comment: 'TROP ' Serial specimen #1, #2 or #3: 1 Performed By: #### L 501.4020, L500.2500, L300.4310, L300.3900, L100.0100 #### [facility] [address] [place], [address] WBC 0 SEEN Normal 0-[address] [facility] Comment on above: Order Comment: 'TROP ' Serial specimen #1, #2 or #3: 1 Performed By: #### L 501.4020, L500.2500, L300.4310, L300.3900, L100.0100 #### [facility] [address] [place], [address] Venous Blood Gason 4 Blood Gas Type TARIK Normal [facility] Comment on above: Performed By: #### L 500.4050, L501.6900, L100.0100, L501.2450 #### [facility] [address] [place], [address] CO2 [Moles/Vol] 32 mmol/L Normal 23-[address] [facility] Comment on above: Performed By: #### L 500.4050, L501.6900, L100.0100, L501.2450 #### [facility] [address] [place], [address] HCO3 (Bld) [Moles/Vol] 31 mmol/L High 22-26 [facility] Comment on above: Performed By: #### L 500.4050, L501.6900, L100.0100, L501.2450 #### [facility] [address] [place], [address] O2 Delivery Dev Room Air Normal [facility] Comment on above: Performed By: #### L 500.4050, L501.6900, L100.0100, L501.2450 #### [facility] [address] [place], [address] SITE Not entered Normal [facility] Comment on above: Performed By: #### L 500.4050, L501.6900, L100.0100, L501.2450 #### [facility] [address] [place], [address] VBG BE 5 mmol/L High -1.0-3.[address] [facility] Comment on above: Performed By: #### L 500.4050, L501.6900, L100.0100, L501.2450 #### [facility] [address] [place], [address] VBG pCO2 52.7 mmHg High 41-[address] [facility] Comment on above: Performed By: #### L 500.4050, L501.6900, L100.0100, L501.2450 #### [facility] [address] [place], [address] VBG pH 7.37 Normal 7.32-7.[address] [facility] Comment on above: Performed By: #### L 500.4050, L501.6900, L100.0100, L501.2450 #### [facility] [address] [place], [address] VBG PO2 51 mmHg High 25-[address] [facility] Comment on above: Performed By: #### L 500.4050, L501.6900, L100.0100, L501.2450 #### [facility] [address] [place], [address] VBG SO2 84 High 50-[address] [facility] Comment on above: Performed By: #### L 500.4050, L501.6900, L100.0100, L501.2450 #### [facility] [address] [place], [address] Bedside Glucoseon 02-12-2024 FINGERSTICK GLU 147 mg/dL High 74-[address] [facility] Comment on above: Result Comment: REN GEMENT OF PATIENT CARE PER NURSING PROTOCOL Performed By: #### L 501.4020, L500.2500, L300.4310, L300.3900, L100.0100 #### [facility] [address] [place], [address] FINGERSTICK GLU 78 mg/dL Normal 74-[address] [facility] Comment on above: Result Comment: REN GEMENT OF PATIENT CARE PER NURSING PROTOCOL Performed By: #### L 501.4020, L500.2500, L300.4310, L300.3900, L100.0100 #### [facility] [address] [place], [address] Discharge Instructionon 01-15 Discharge Instruction [facility] Medical Records Department [address] [place] [address] Instructions for Home/Discharge Instructions 02/12/24 1326 MR#: [id number] Acct: [id number] Name: NANCYOPAL JON Rep #: [id number] : [id number] From: Stevenson Rodriguez DO PCP: [facility] Status:ADM IN Discharge Instructions Diet Discharge Diet: No restrictions Activity Discharge Activity: Return to Normal Activity Weight Bearing Status: Full weight bearing Follow Up Care Test Results: Test results from this visit will be discussed in further detail at your follow-up appointment, if applicable. Discharge Plan Admission Admit Date/Time: 02/10/24 17:21 Primary Reason for Your Visit: cellulitis Attending Provider: Stevenson Rodriguez Primary Care Provider: [facility] Consulting Providers: Emely Nava Instructions Additional Instructions / Restrictions: start your home antibiotics tomorrow Discharge Orders/Prescriptions Prescriptions: New cefdinir 300 mg capsule 300 mg PO BID Qty: 14 0RF Continued amlodipine 10 mg tablet 5 mg PO DAILY Entresto 49-51 mg tablet 1 tab PO BID Qty: 180 3RF nortriptyline 10 MG capsule 30 mg PO DAILY aspirin 81 MG tablet,chewable 81 mg PO DAILY acetaminophen 500 mg Tablet 1,000 mg PO Q6H PRN PRN (Reason: Pain Score 1-10) Qty: 1 0RF magnesium chloride [Mag 64] 64 mg Tablet,Delayed Release (Dr/Ec) 128 mg PO BID Qty: 60 0RF metoclopramide HCl [Reglan] 10 mg tablet 10 mg PO Q6H PRN (Reason: nausea and vomiting) Qty: 10 0RF atorvastatin [Lipitor] 40 mg tablet 40 mg PO QHS furosemide 20 mg tablet 20 mg PO DAILY spironolactone [Aldactone] 25 mg tablet 25 mg PO DAILY sertraline 100 mg tablet 100 mg PO DAILY melatonin 3 mg Tablet 3 mg PO QHS PRN PRN (Reason: Insomnia) Qty: 0 0RF tamsulosin 0.4 mg Capsule 0.8 mg PO DAILY@1730 Qty: 0 0RF Humulin R U-500 (Conc) Kwikpen 500 unit/mL (3 mL) Insulin Pen 90 unit subcut BID metoprolol succinate 25 mg tablet extended release 24 hr 25 mg PO DAILY pregabalin [Lyrica] 50 mg capsule 50 mg PO BID empagliflozin 25 mg tablet 25 mg PO DAILY Rx Instructions: patient takes 1/2 tablet daily lisinopril 40 mg tablet 40 mg PO DAILY Referrals / Follow Up[facility] [[facility] - Disposition Disposition (needs filled in before D/C Order can be placed): Home Health Service 02/12/24 1333 Stevenson Rodriguez DO CC: Dr. Emely Nava MD; [facility] Signed Normal [facility] Basic Metabolic Profile (BMP )on 02-11-2024 BUN/CRE 22.8 RATIO High 10- [facility] Comment on above: Performed By: #### L 501.4020, L500.2500, L300.4310, L300.3900, L100.0100 #### [facility] [address] [place], [address] CA,Total 8.7 mg/dL Normal 8.5-10.[address] [facility] Comment on above: Performed By: #### L 501.4020, L500.2500, L300.4310, L300.3900, L100.0100 #### [facility] [address] [place], [address] Chloride [Moles/Vol] 104 mmol/L Normal 98-107 [facility] Comment on above: Performed By: #### L 501.4020, L500.2500, L300.4310, L300.3900, L100.0100 #### [facility] [address] [place], [address] CO2 [Moles/Vol] 24.0 mmol/L Normal 21.0-32.[address] [facility] Comment on above: Performed By: #### L 501.4020, L500.2500, L300.4310, L300.3900, L100.0100 #### [facility] [address] [place], [address] Creatinine [Mass/Vol] 1.36 mg/dL High 0.70-1.30 [facility] Comment on above: Result Comment: The validity of the calculated GFR GFRAA in patients over 70 years has not been determined. Clinical correlation is essential. Performed By: #### L 501.4020, L500.2500, L300.4310, L300.3900, L100.0100 #### [facility] [address] [place], [address] ECRCL 56.93 ml/min Normal [facility] Comment on above: Performed By: #### L 501.4020, L500.2500, L300.4310, L300.3900, L100.0100 #### [facility] [address] [place], [address] EST GFR - AA 67 mL/min Normal >[address] [facility] Comment on above: Result Comment: Afri can Ecuadorean GFR Calc Performed By: #### L 501.4020, L500.2500, L300.4310, L300.3900, L100.0100 #### [facility] [address] [place], [address] GAP 7 Normal 5-[address] [facility] Comment on above: Performed By: #### L 501.4020, L500.2500, L300.4310, L300.3900, L100.0100 #### [facility] [address] [place], [address] GFR/1.73 sq M.predicted among non-blacks MDRD (S/P/Bld) [Vol rate/Area] 55 mL/min/{1.73_m2} Low >[address] [facility] Comment on above: Result Comment: Non- GFR Calc Performed By: #### L 501.4020, L500.2500, L300.4310, L300.3900, L100.0100 #### [facility] [address] [place], [address] Glucose [Mass/Vol] 229 mg/dL High 74-106 [facility] Comment on above: Result Comment: Gluc ose result greater than or equal to 200 mg/dL suggests DIABETES MELLITUS per A.D.A. criteria. Performed By: #### L 501.4020, L500.2500, L300.4310, L300.3900, L100.0100 #### [facility] [address] [place], [address] Potassium [Moles/Vol] 4.5 mmol/L Normal 3.5-5.1 [facility] Comment on above: Performed By: #### L 501.4020, L500.2500, L300.4310, L300.3900, L100.0100 #### [facility] [address] [place], [address] Sodium [Moles/Vol] 135 mmol/L Low 136-145 [facility] Comment on above: Performed By: #### L 501.4020, L500.2500, L300.4310, L300.3900, L100.0100 #### [facility] [address] [place], [address] Urea nitrogen [Mass/Vol] 31 mg/dL High 7-[address] [facility] Comment on above: Performed By: #### L 501.4020, L500.2500, L300.4310, L300.3900, L100.0100 #### [facility] [address] [place], [address] Bedside Glucoseon 02-11-2024 FINGERSTICK GLU 138 mg/dL High 74-[address] [facility] Comment on above: Result Comment: REN GEMENT OF PATIENT CARE PER NURSING PROTOCOL Performed By: #### L 501.4020, L500.2500, L300.4310, L300.3900, L100.0100 #### [facility] [address] [place], [address] FINGERSTICK GLU 199 mg/dL High 74-[address] [facility] Comment on above: Result Comment: REN GEMENT OF PATIENT CARE PER NURSING PROTOCOL Performed By: #### L 500.4050, L501.6900, L100.0100, L501.2450 #### [facility] [address] [place], [address] FINGERSTICK GLU 212 mg/dL High 74-[address] [facility] Comment on above: Result Comment: REN GEMENT OF PATIENT CARE PER NURSING PROTOCOL Performed By: #### L 500.4050, L501.6900, L100.0100, L501.2450 #### [facility] [address] [place], [address] FINGERSTICK GLU 233 mg/dL High 74-[address] [facility] Comment on above: Result Comment: REN GEMENT OF PATIENT CARE PER NURSING PROTOCOL Performed By: #### L 500.4050, L501.6900, L100.0100, L501.2450 #### [facility] [address] [place], [address] CBC W/Diff, Automatedon 08-2 Absolute Lymph 0.97 X10 3/uL Normal 0.83-4.[address] [facility] Comment on above: Performed By: #### L 501.4020, L500.2500, L300.4310, L300.3900, L100.0100 #### [facility] [address] [place], [address] Absolute Neut 4.3 X10 3/uL Normal 2.0-7.[address] [facility] Comment on above: Performed By: #### L 501.4020, L500.2500, L300.4310, L300.3900, L100.0100 #### [facility] [address] [place], [address] Basophils/100 WBC (Bld) 0.5 % Normal 0-1 [facility] Comment on above: Performed By: #### L 501.4020, L500.2500, L300.4310, L300.3900, L100.0100 #### [facility] [address] [place], [address] Eosinophils/100 WBC (Bld) 2.0 % Normal 0-[address] [facility] Comment on above: Performed By: #### L 501.4020, L500.2500, L300.4310, L300.3900, L100.0100 #### [facility] [address] [place], [address] Erythrocyte distribution width (RBC) [Ratio] 12.3 % Normal 11.6-14.[address] [facility] Comment on above: Performed By: #### L 501.4020, L500.2500, L300.4310, L300.3900, L100.0100 #### [facility] [address] [place], [address] Hematocrit (Bld) [Volume fraction] 37.9 % Low 40-[address] [facility] Comment on above: Performed By: #### L 501.4020, L500.2500, L300.4310, L300.3900, L100.0100 #### [facility] [address] [place], [address] Hemoglobin (Bld) [Mass/Vol] 12.6 g/dL Low 13.0-16.[address] [facility] Comment on above: Performed By: #### L 501.4020, L500.2500, L300.4310, L300.3900, L100.0100 #### [facility] [address] [place], [address] IG% 0.300 Normal 0.0-0.[address] [facility] Comment on above: Result Comment: IG% - Immature Granulocytes (promyelocytes, myelocytes and metamyelocytes) > 1% indicates that a LEFT SHIFT is Present. Performed By: #### L 501.4020, L500.2500, L300.4310, L300.3900, L100.0100 #### [facility] [address] [place], [address] Lymphocytes/100 WBC (Bld) 16.4 % Low 19-[address] [facility] Comment on above: Performed By: #### L 501.4020, L500.2500, L300.4310, L300.3900, L100.0100 #### [facility] [address] [place], [address] MCH (RBC) [Entitic mass] 29.3 pg Normal 27.0-32.[address] [facility] Comment on above: Performed By: #### L 501.4020, L500.2500, L300.4310, L300.3900, L100.0100 #### [facility] [address] [place], [address] MCHC (RBC) [Mass/Vol] 33.2 g/dL Normal 32-36 [facility] Comment on above: Performed By: #### L 501.4020, L500.2500, L300.4310, L300.3900, L100.0100 #### [facility] [address] [place], [address] MCV (RBC) [Entitic vol] 88.1 fL Normal 80-94 [facility] Comment on above: Performed By: #### L 501.4020, L500.2500, L300.4310, L300.3900, L100.0100 #### [facility] [address] [place], [address] Monocytes/100 WBC (Bld) 8.5 % Normal 0-10 [facility] Comment on above: Performed By: #### L 501.4020, L500.2500, L300.4310, L300.3900, L100.0100 #### [facility] [address] [place], [address] Neutrophils/100 WBC (Bld) 72.3 % High 47-[address] [facility] Comment on above: Performed By: #### L 501.4020, L500.2500, L300.4310, L300.3900, L100.0100 #### [facility] [address] [place], [address] Nucleated RBC (Bld) [#/Vol] 0 10*3/uL Normal 0-[address] [facility] Comment on above: Performed By: #### L 501.4020, L500.2500, L300.4310, L300.3900, L100.0100 #### [facility] [address] [place], [address] Platelet mean volume (Bld) [Entitic vol] 10.6 fL Normal 6.2-12.[address] [facility] Comment on above: Performed By: #### L 501.4020, L500.2500, L300.4310, L300.3900, L100.0100 #### [facility] [address] [place], [address] Platelets (Bld) [#/Vol] 134 10*3/uL Low 150-[address] [facility] Comment on above: Performed By: #### L 501.4020, L500.2500, L300.4310, L300.3900, L100.0100 #### [facility] [address] [place], [address] RBC (Bld) [#/Vol] 4.30 10*6/uL Low 4.6-6.2 [facility] Comment on above: Performed By: #### L 501.4020, L500.2500, L300.4310, L300.3900, L100.0100 #### [facility] [address] [place], [address] RDW SD 39.8 fl Normal 35.1-43.[address] [facility] Comment on above: Performed By: #### L 501.4020, L500.2500, L300.4310, L300.3900, L100.0100 #### [facility] [address] [place], [address] WBC (Bld) [#/Vol] 5.9 10*3/uL Normal 4.4-11.0 [facility] Comment on above: Performed By: #### L 501.4020, L500.2500, L300.4310, L300.3900, L100.0100 #### [facility] [address] [place], [address] Hemoglobin A1con 02-11-2024 HbA1c (Bld) [Mass fraction] 9.8 % High 3.8-5.[address] [facility] Comment on above: Result Comment: Norm al < 5.7 % Prediabetic 5.7 - 6.4 % Diabetic >or= 6.5 % Please note range changes. Performed By: #### L 501.4020, L500.2500, L300.4310, L300.3900, L100.0100 #### [facility] [address] [place], [address] Magnesiumon 02-11-2024 Magnesium [Mass/Vol] 2.6 mg/dL Normal 1.6-2.6 [facility] Comment on above: Performed By: #### L 501.4020, L500.2500, L300.4310, L300.3900, L100.0100 #### [facility] [address] [place], [address] Prothrombin Time w/INRon INR Coag (PPP) [Relative time] 1.1 {INR} Normal [facility] Comment on above: Performed By: #### L 501.4020, L500.2500, L300.4310, L300.3900, L100.0100 #### [facility] [address] [place], [address] PT Coag (PPP) [Time] 13.7 s Normal 11.7-14.9 [facility] Comment on above: Performed By: #### L 501.4020, L500.2500, L300.4310, L300.3900, L100.0100 #### [facility] [address] [place], [address] 12 Lead EKGon 02-10-2024 12 Lead EKG [facility] [address] [place] [address] 12 Lead EKG 02/10/24 1519 MR#: [id number] Acct: [id number] Name: OPAL CRUZ Rep #: [id number] : [id number] From: Miguel Mejia MD Attending Dr: Dr. Stevenson Rodriguez DO Status: A DM IN Ordering Dr: Gerald John DO Date: 02/10/24 Location: MS3 Sex: M C Admitted: 02/10/24 Test Reason : WEAKNESS Blood Pressure : / mmHG Vent. Rate : 077 BPM Atrial Rate : 077 BPM P-R Int : 200 ms QRS Dur : 154 ms QT Int : 450 ms P-R-T Axes : 023 -22 033 degrees QTc Int : 509 ms Normal sinus rhythm Right bundle branch block Inferior infarct , age undetermined Abnormal ECG Confirmed by Miguel Mejia ([id number]), news video editor GENARO JIMENEZ ([id number]) on 02/11/2024 10:14:46 AM Referred By: Confirmed By:Miguel Mejia 02/11/24 1014 Date Miguel Mejia MD CC: Dr. Stevenson Rodriguez, ; Dr. Gerald John, DO; [facility] Signed Normal [facility] Bedside Glucoseon 02-10-2024 FINGERSTICK GLU 221 mg/dL High 74-[address] [facility] Comment on above: Result Comment: REN LOCKWOOD OF PATIENT CARE PER NURSING PROTOCOL Performed By: #### L 501.4020, L500.2500, L300.4310, L300.3900, L100.0100 #### [facility] [address] [place], [address] CBC W/Diff, Automatedon 01-15 Absolute Lymph 0.89 X10 3/uL Normal 0.83-4.[address] [facility] Comment on above: Performed By: #### L 501.4020, L500.2500, L300.4310, L300.3900, L100.0100 #### [facility] [address] [place], [address] Absolute Neut 7.1 X10 3/uL Normal 2.0-7.[address] [facility] Comment on above: Performed By: #### L 501.4020, L500.2500, L300.4310, L300.3900, L100.0100 #### [facility] [address] [place], [address] Basophils/100 WBC (Bld) 0.2 % Normal 0-1 [facility] Comment on above: Performed By: #### L 501.4020, L500.2500, L300.4310, L300.3900, L100.0100 #### [facility] [address] [place], [address] Eosinophils/100 WBC (Bld) 1.1 % Normal 0-[address] [facility] Comment on above: Performed By: #### L 501.4020, L500.2500, L300.4310, L300.3900, L100.0100 #### [facility] [address] [place], [address] Erythrocyte distribution width (RBC) [Ratio] 12.7 % Normal 11.6-14.[address] [facility] Comment on above: Performed By: #### L 501.4020, L500.2500, L300.4310, L300.3900, L100.0100 #### [facility] [address] [place], [address] Hematocrit (Bld) [Volume fraction] 40.8 % Normal 40-[address] [facility] Comment on above: Performed By: #### L 501.4020, L500.2500, L300.4310, L300.3900, L100.0100 #### [facility] [address] [place], [address] Hemoglobin (Bld) [Mass/Vol] 13.6 g/dL Normal 13.0-16.[address] [facility] Comment on above: Performed By: #### L 501.4020, L500.2500, L300.4310, L300.3900, L100.0100 #### [facility] [address] [place], [address] IG% 0.300 Normal 0.0-0.[address] [facility] Comment on above: Result Comment: IG% - Immature Granulocytes (promyelocytes, myelocytes and metamyelocytes) > 1% indicates that a LEFT SHIFT is Present. Performed By: #### L 501.4020, L500.2500, L300.4310, L300.3900, L100.0100 #### [facility] [address] [place], [address] Lymphocytes/100 WBC (Bld) 10.1 % Low 19-[address] [facility] Comment on above: Performed By: #### L 501.4020, L500.2500, L300.4310, L300.3900, L100.0100 #### [facility] [address] [place], [address] MCH (RBC) [Entitic mass] 29.5 pg Normal 27.0-32.[address] [facility] Comment on above: Performed By: #### L 501.4020, L500.2500, L300.4310, L300.3900, L100.0100 #### [facility] [address] [place], [address] MCHC (RBC) [Mass/Vol] 33.3 g/dL Normal 32-36 [facility] Comment on above: Performed By: #### L 501.4020, L500.2500, L300.4310, L300.3900, L100.0100 #### [facility] [address] [place], [address] MCV (RBC) [Entitic vol] 88.5 fL Normal 80-94 [facility] Comment on above: Performed By: #### L 501.4020, L500.2500, L300.4310, L300.3900, L100.0100 #### [facility] [address] [place], [address] Monocytes/100 WBC (Bld) 7.6 % Normal 0-10 [facility] Comment on above: Performed By: #### L 501.4020, L500.2500, L300.4310, L300.3900, L100.0100 #### [facility] [address] [place], [address] Neutrophils/100 WBC (Bld) 80.7 % High 47-[address] [facility] Comment on above: Performed By: #### L 501.4020, L500.2500, L300.4310, L300.3900, L100.0100 #### [facility] [address] [place], [address] Nucleated RBC (Bld) [#/Vol] 0 10*3/uL Normal 0-[address] [facility] Comment on above: Performed By: #### L 501.4020, L500.2500, L300.4310, L300.3900, L100.0100 #### [facility] [address] [place], [address] Platelet mean volume (Bld) [Entitic vol] 10.7 fL Normal 6.2-12.[address] [facility] Comment on above: Performed By: #### L 501.4020, L500.2500, L300.4310, L300.3900, L100.0100 #### [facility] [address] [place], [address] Platelets (Bld) [#/Vol] 146 10*3/uL Low 150-[address] [facility] Comment on above: Performed By: #### L 501.4020, L500.2500, L300.4310, L300.3900, L100.0100 #### [facility] [address] [place], [address] RBC (Bld) [#/Vol] 4.61 10*6/uL Normal 4.6-6.2 [facility] Comment on above: Performed By: #### L 501.4020, L500.2500, L300.4310, L300.3900, L100.0100 #### [facility] [address] [place], [address] RDW SD 41.0 fl Normal 35.1-43.[address] [facility] Comment on above: Performed By: #### L 501.4020, L500.2500, L300.4310, L300.3900, L100.0100 #### [facility] [address] [place], [address] WBC (Bld) [#/Vol] 8.8 10*3/uL Normal 4.4-11.0 [facility] Comment on above: Performed By: #### L 501.4020, L500.2500, L300.4310, L300.3900, L100.0100 #### [facility] [address] [place] [place], [address] Chest 1 View (Portable)on Chest 1 View (Portable) [facility] Imaging Services [address] [place] [address] Chest 1 View (Portable) MR#: [id number] Acct: [id number] Name: OPAL CRUZ Rep #: [id number] : 1955 M 68 From: Adi trevizo MD PCP: [facility] Status: [facility] ER Study: Chest 1 View (Portable) Date of Exam: 02/10/24 Exam# [id number] Ordering [place]: [place] [id number] STUDY: X-RAY CHEST REASON FOR EXAM: Male, 68 years old. Weakness TECHNIQUE: Single AP portable view of the chest. COMPARISON: Comparison is made with prior study dated December 30, 2023. FINDINGS: EKG electrodes are seen. Limited inspiratory effort. The lungs are clear. There is no demonstrated pleural abnormality. Normal size heart. Normal mediastinum and orin. Normal visualized pulmonary arteries. Normal visualized aortic arch and descending thoracic aorta. Normal visualized thoracic spine. Normal visualized ribs, clavicles, and shoulders. There is no demonstrated abnormality of the visualized soft tissue structures of the upper abdomen. RAD/Chest 1 View (Portable) IMPRESSION: Limited inspiratory effort. The lungs are clear. Electronically Signed: Adi Burroughs MD at 15:38 EDT Reading Location ID and State: [facility] / [place] , Service support , CC: Dr. Gerald John, DO; [facility] Towel Distributor: Signed Normal [facility] Comprehensive Metabolic Prof wvon 02-10-2024 Albumin [Mass/Vol] 3.4 g/dL Normal 3.2-5.0 [facility] Comment on above: Order Comment: 'TROP ' Serial specimen #1, #2 or #3: 1 Performed By: #### L 501.4020, L500.2500, L300.4310, L300.3900, L100.0100 #### [facility] [address] [place], [address] Albumin/Globulin [Mass ratio] 0.8 {ratio} Low 0.9-2.[address] [facility] Comment on above: Order Comment: 'TROP ' Serial specimen #1, #2 or #3: 1 Performed By: #### L 501.4020, L500.2500, L300.4310, L300.3900, L100.0100 #### [facility] [address] [place], [address] ALK P 96 U/L Normal 45-[address] [facility] Comment on above: Order Comment: 'TROP ' Serial specimen #1, #2 or #3: 1 Performed By: #### L 501.4020, L500.2500, L300.4310, L300.3900, L100.0100 #### [facility] [address] [place], [address] ALT [Catalytic activity/Vol] 39 U/L Normal 16-[address] [facility] Comment on above: Order Comment: 'TROP ' Serial specimen #1, #2 or #3: 1 Performed By: #### L 501.4020, L500.2500, L300.4310, L300.3900, L100.0100 #### [facility] [address] [place], [address] AST [Catalytic activity/Vol] 30 U/L Normal 15-[address] [facility] Comment on above: Order Comment: 'TROP ' Serial specimen #1, #2 or #3: 1 Performed By: #### L 501.4020, L500.2500, L300.4310, L300.3900, L100.0100 #### [facility] [address] [place], [address] Bilirubin [Mass/Vol] 0.50 mg/dL Normal 0.20-1.00 [facility] Comment on above: Order Comment: 'TROP ' Serial specimen #1, #2 or #3: 1 Result Comment: For patients on eltrombopag therapy, use of Dimension Keenes TBIL is not recommended. Performed By: #### L 501.4020, L500.2500, L300.4310, L300.3900, L100.0100 #### [facility] [address] [place], [address] BUN/CRE 19.9 RATIO Normal 10-[address] [facility] Comment on above: Order Comment: 'TROP ' Serial specimen #1, #2 or #3: 1 Performed By: #### L 501.4020, L500.2500, L300.4310, L300.3900, L100.0100 #### [facility] [address] [place], [address] CA,Total 8.9 mg/dL Normal 8.5-10.[address] [facility] Comment on above: Order Comment: 'TROP ' Serial specimen #1, #2 or #3: 1 Performed By: #### L 501.4020, L500.2500, L300.4310, L300.3900, L100.0100 #### [facility] [address] [place], [address] Chloride [Moles/Vol] 102 mmol/L Normal 98-107 [facility] Comment on above: Order Comment: 'TROP ' Serial specimen #1, #2 or #3: 1 Performed By: #### L 501.4020, L500.2500, L300.4310, L300.3900, L100.0100 #### [facility] [address] [place], [address] CO2 [Moles/Vol] 27.0 mmol/L Normal 21.0-32.[address] [facility] Comment on above: Order Comment: 'TROP ' Serial specimen #1, #2 or #3: 1 Performed By: #### L 501.4020, L500.2500, L300.4310, L300.3900, L100.0100 #### [facility] [address] [place], [address] Creatinine [Mass/Vol] 1.91 mg/dL High 0.70-1.30 [facility] Comment on above: Order Comment: 'TROP ' Serial specimen #1, #2 or #3: 1 Result Comment: The validity of the calculated GFR GFRAA in patients over 70 years has not been determined. Clinical correlation is essential. Performed By: #### L 501.4020, L500.2500, L300.4310, L300.3900, L100.0100 #### [facility] [address] [place], [address] ECRCL 41.00 ml/min Normal [facility] Comment on above: Order Comment: 'TROP ' Serial specimen #1, #2 or #3: 1 Performed By: #### L 501.4020, L500.2500, L300.4310, L300.3900, L100.0100 #### [facility] [address] [place], [address] EST GFR - AA 45 mL/min Low >[address] [facility] Comment on above: Order Comment: 'TROP ' Serial specimen #1, #2 or #3: 1 Result Comment: Afri can Ecuadorean GFR Calc Performed By: #### L 501.4020, L500.2500, L300.4310, L300.3900, L100.0100 #### [facility] [address] [place], [address] GAP 7 Normal 5-[address] [facility] Comment on above: Order Comment: 'TROP ' Serial specimen #1, #2 or #3: 1 Performed By: #### L 501.4020, L500.2500, L300.4310, L300.3900, L100.0100 #### [facility] [address] [place], [address] GFR/1.73 sq M.predicted among non-blacks MDRD (S/P/Bld) [Vol rate/Area] 37 mL/min/{1.73_m2} Low >[address] [facility] Comment on above: Order Comment: 'TROP ' Serial specimen #1, #2 or #3: 1 Result Comment: Non- GFR Calc Performed By: #### L 501.4020, L500.2500, L300.4310, L300.3900, L100.0100 #### [facility] [address] [place], [address] Globulin (S) [Mass/Vol] 4.4 g/dL High 2.2-4.2 [facility] Comment on above: Order Comment: 'TROP ' Serial specimen #1, #2 or #3: 1 Performed By: #### L 501.4020, L500.2500, L300.4310, L300.3900, L100.0100 #### [facility] [address] [place], [address] Glucose [Mass/Vol] 221 mg/dL High 74-106 [facility] Comment on above: Order Comment: 'TROP ' Serial specimen #1, #2 or #3: 1 Result Comment: Gluc ose result greater than or equal to 200 mg/dL suggests DIABETES MELLITUS per A.D.A. criteria. Performed By: #### L 501.4020, L500.2500, L300.4310, L300.3900, L100.0100 #### [facility] [address] [place], [address] Potassium [Moles/Vol] 4.6 mmol/L Normal 3.5-5.1 [facility] Comment on above: Order Comment: 'TROP ' Serial specimen #1, #2 or #3: 1 Performed By: #### L 501.4020, L500.2500, L300.4310, L300.3900, L100.0100 #### [facility] [address] [place], [address] Sodium [Moles/Vol] 136 mmol/L Normal 136-145 [facility] Comment on above: Order Comment: 'TROP ' Serial specimen #1, #2 or #3: 1 Performed By: #### L 501.4020, L500.2500, L300.4310, L300.3900, L100.0100 #### [facility] [address] [place], [address] T PROT 7.8 g/dL Normal 6.4-8.[address] [facility] Comment on above: Order Comment: 'TROP ' Serial specimen #1, #2 or #3: 1 Performed By: #### L 501.4020, L500.2500, L300.4310, L300.3900, L100.0100 #### [facility] [address] [place], [address] Urea nitrogen [Mass/Vol] 38 mg/dL High 7-[address] [facility] Comment on above: Order Comment: 'TROP ' Serial specimen #1, #2 or #3: 1 Performed By: #### L 501.4020, L500.2500, L300.4310, L300.3900, L100.0100 #### [facility] [address] [place], [address] Emergency Department Summary on 02-10-2024 Emergency Department Summary [facility] Medical Records Department [address] [facility] [place] [address] Emergency Department Summary 02/10/24 MR#: [id number] Acct: [id number] Name: OPAL CRUZ Rep #: [id number] : 1955 68 From: Gerald John DO PCP: [facility] Status:ADM ARLENE Location: [address] History of Present Illness Chief Complaint: Weakness Narrative Narrative: Patient is a 68-year-old male with past medical history of CVA with left-sided weakness, depression, anxiety, hyperlipidemia, SEBASTIAN, GERD, GI bleed, type 2 diabetes, hypertension who presents to the emergency department chief complaint of inability to ambulate. Patient states that prior to him going to bed around 1030 last night he was fine and able to ambulate. He states that when he woke up this morning which was around 9 AM he noted that he was unable to stand up out of his bed. He states that he crawled on the floor to let his dog outside and try to get up however he was unable to do so. Patient states he made it back into a chair and noted that he was evaluated by a nurse that advised him to come here for the evaluation management. Patient denies any recent illnesses or sick contacts. He states that otherwise he feels fine he is just too weak to walk. Patient denies any falls where he hit his head denies any blood thinner medications. [facility] Medical History Left-sided weakness Right pontine stroke Diabetic retinopathy Narcolepsy Depression Anxiety Diabetic polyneuropathy Vitamin D deficiency Migraine headache Obstructive sleep apnea Hyperlipidemia Coronary artery disease Ischemic stroke Hernia History of COVID-19 Vision loss of right eye Hearing loss, left Hearing loss, right Hypothyroidism Chronic pain Osteoporosis GERD (gastroesophageal reflux disease) GI bleed Former smoker CPAP (continuous positive airway pressure) dependence Sleep apnea Chest pain Elevated troponin Elevated lipase Myocardial infarct DM2 (diabetes mellitus, type 2) Essential (primary) hypertension Home Medications ???Medication ???Instructions ???Recorded ???Last Taken ???Type metoprolol tartrate 100 mg tablet 25 mg PO DAILY blood pressure 10/05/16 06/28/22 History nortriptyline 10 mg capsule 30 mg PO DAILY migraines 10/05/16 2 Days Ago History 06/26/22 aspirin 81 mg chewable tablet 81 mg PO DAILY heart health 08/17/19 06/28/22 History acetaminophen 500 mg tablet 1,000 mg (2 x 500 mg) PO Q6H PRN 04/16/22 Unknown Rx PRN Pain Score 1-10 #1 TAB magnesium chloride 64 mg 128 mg (2 x 64 mg) PO BID #60 tabs 04/16/22 06/28/22 Rx (magnesium chloride) tablet,delayed release (Mag 64) amlodipine 10 mg tablet 5 mg PO DAILY 04/30/22 06/28/22 History sacubitril 49 mg-valsartan 51 mg 1 tab PO BID #180 tabs 04/30/22 06/28/22 Rx tablet (Entresto) metoclopramide HCl 10 mg tablet 10 mg PO Q6H PRN nausea and 04/27/23 Unknown Rx (Reglan) vomiting #10 tabs atorvastatin 40 mg tablet (Lipitor) 40 mg PO QHS 12/30/23 Unknown History furosemide 20 mg tablet 20 mg PO DAILY 12/30/23 Unknown History sertraline 100 mg tablet 100 mg PO DAILY 12/30/23 Unknown History spironolactone 25 mg tablet 25 mg PO DAILY 12/30/23 Unknown History (Aldactone) insulin regular hum U-500 conc 500 50 unit (0.1 mL) subcut BREAKFAST 01/05/24 Unknown Rx unit/mL(3 mL) subcut pen (Humulin #0 mL R U-500 (Conc) Insulin Kwikpen) melatonin 3 mg tablet 3 mg PO QHS PRN PRN Insomnia #0 01/05/24 Unknown Rx tabs tamsulosin 0.4 mg capsule 0.8 mg (2 x 0.4 mg) PO DAILY@1730 01/05/24 Unknown Rx #0 caps insulin regular hum U-500 conc 500 90 unit subcut BID 02/10/24 Unknown History unit/mL(3 mL) subcut pen (Humulin R U-500 (Conc) Insulin Kwikpen) Allergy/AdvReac Type Severity Reaction Status Date / Time No Known Allergies Allergy Verified 02/10/24 14:46 Family History Mother Diabetes Father Heart disease CVA (cerebral vascular accident) Surgical History History of hernia surgery History of cholecystectomy History of back surgery Social History household members: spouse and children housing: apartment current occupational status: disabled Smoking Status: Unknown if ever smoked Tobacco: How many years used: 30 how long ago did patient quit smokin alcohol intake: never substance use type: does not use diet: diabetic caffeine: Yes Type: coffee Number of servings: 1 what type of physical activity do you participate in: walking ROS ROS ED ROS Narrative Constitutional: Denies any fevers, chills, headaches, lightheadedness, dizziness Eyes: Denies any change in visio (more content not included)... Normal [facility] H AND P Exam - Hospitaliston 02-10-2024 H&P Exam - Hospitalist [facility] Medical Records Department [address] [place] [address] H P Exam - Hospitalist 02/10/24 1722 MR#: [id number] Acct: [id number] Name: OPAL CRUZ Rep #: [id number] : 1955 68 From: Emely Nava MD PCP: [facility] Status:ADM [facility] Location: MS3 [id number] HPI - General General Date of Admission: 02/10/24 Date of Service: 02/10/24 Chief Complaint: Generalized weakness HPI Narrative OPAL CRUZ, is a 68-year-old male history of CVA with chronic left-sided weakness, CAD, bph, depression and anxiety, SEBASTIAN, GERD, type [address] [facility] ED 02/10/2024 with inability to ambulate. Went to bed at 1030 last night was able to ambulate and was doing fine but woke up this morning at 9 AM and was unable to get out of bed prompting him to present to the hospital for evaluation. Patient has no other acute complaints but just feels too weak to walk. In the ED patient found to have elevated BUN/creatinine at 38 and 1.91 up from 22 and 1.18 less than a month ago but workup otherwise unremarkable, was noted to have some increased erythema on right lower extremity concerning for cellulitis and given Rocephin. Due to weakness, right lower extremity cellulitis, and TONNY hospitalist contacted for admission. Patient evaluated at bedside with significant other present. Patient reports he was in his usual health last night but at 9 AM he was too weak to get up, has had some chronic lower extremity wounds but his right lower extremity is more erythematous compared to the left and that started this morning. Had diarrhea 2 days ago but no present bowel problems. Other than the weakness and right lower extremity cellulitis he denies any new or acute complaints. Was unable to ambulate more than a few steps when attempted in the ED, still feeling generally weak [facility] Medical History Left-sided weakness Right pontine stroke Diabetic retinopathy Narcolepsy Depression Anxiety Diabetic polyneuropathy Vitamin D deficiency Migraine headache Obstructive sleep apnea Hyperlipidemia Coronary artery disease Ischemic stroke Hernia History of COVID-19 Vision loss of right eye Hearing loss, left Hearing loss, right Hypothyroidism Chronic pain Osteoporosis GERD (gastroesophageal reflux disease) GI bleed Former smoker CPAP (continuous positive airway pressure) dependence Sleep apnea Chest pain Elevated troponin Elevated lipase Myocardial infarct DM2 (diabetes mellitus, type 2) Essential (primary) hypertension Home Medications ???Medication ???Instructions ???Recorded ???Last Taken ???Type metoprolol tartrate 100 mg tablet 25 mg PO DAILY blood pressure 10/05/16 06/28/22 History nortriptyline 10 mg capsule 30 mg PO DAILY migraines 10/05/16 2 Days Ago History 06/26/22 aspirin 81 mg chewable tablet 81 mg PO DAILY [facility] health 08/17/19 06/28/22 History acetaminophen 500 mg tablet 1,000 mg (2 x 500 mg) PO Q6H PRN 04/16/22 Unknown Rx PRN Pain Score 1-10 #1 TAB magnesium chloride 64 mg 128 mg (2 x 64 mg) PO BID #60 tabs 04/16/22 06/28/22 Rx (magnesium chloride) tablet,delayed release (Mag 64) amlodipine 10 mg tablet 5 mg PO DAILY 04/30/22 06/28/22 History sacubitril 49 mg-valsartan 51 mg 1 tab PO BID #180 tabs 04/30/22 06/28/22 Rx tablet (Entresto) metoclopramide HCl 10 mg tablet 10 mg PO Q6H PRN nausea and 04/27/23 Unknown Rx (Reglan) vomiting #10 tabs atorvastatin 40 mg tablet (Lipitor) 40 mg PO QHS 12/30/23 Unknown History furosemide 20 mg tablet 20 mg PO DAILY 12/30/23 Unknown History sertraline 100 mg tablet 100 mg PO DAILY 12/30/23 Unknown History spironolactone 25 mg tablet 25 mg PO DAILY 12/30/23 Unknown History (Aldactone) insulin regular hum U-500 conc 500 50 unit (0.1 mL) subcut BREAKFAST 01/05/24 Unknown Rx unit/mL(3 mL) subcut pen (Humulin #0 mL R U-500 (Conc) Insulin Kwikpen) melatonin 3 mg tablet 3 mg PO QHS PRN PRN Insomnia #0 01/05/24 Unknown Rx tabs tamsulosin 0.4 mg capsule 0.8 mg (2 x 0.4 mg) PO DAILY@1730 01/05/24 Unknown Rx #0 caps insulin regular hum U-500 conc 500 90 unit subcut BID 02/10/24 Unknown History unit/mL(3 mL) subcut pen (Humulin R U-500 (Conc) Insulin Kwikpen) Allergy/AdvReac Type Severity Reaction Status Date / Time No Known Allergies Allergy Verified 02/10/24 14:46 Family History Mother Diabetes Father Heart disease CVA (cerebral vascular accident) Surgical History History of hernia surgery History of cholecystectomy History of back surgery Social History household members: spouse and children housing: apartme (more content not included)... Normal [facility] L501.4020on 02-10-2024 TROPONIN-I HS 23 pg/mL Normal 3.0-78.[address] [facility] Comment on above: Order Comment: 'TROP ' Serial specimen #1, #2 or #3: 1 Result Comment: Andrez lugo Note: New Test Units and Gender Specific Reference Ranges. For more information see Policy Stat Procedure Keenes High Sensitivity Troponin (TNIH) and attachments. Performed By: #### L 501.4020, L500.2500, L300.4310, L300.3900, L100.0100 #### [facility] [address] [place], [address] Magnesiumon 02-10-2024 Magnesium [Mass/Vol] 2.8 mg/dL High 1.6-2.6 [facility] Comment on above: Order Comment: 'TROP ' Serial specimen #1, #2 or #3: 1 Performed By: #### L 501.4020, L500.2500, L300.4310, L300.3900, L100.0100 #### [facility] [address] [place], [address] Thyroid Stim Hormone (TSH)on 02-10-2024 TSH 0.930 uIU/mL Normal 0.358-3.[address] [facility] Comment on above: Order Comment: 'TROP ' Serial specimen #1, #2 or #3: 1 Performed By: #### L 501.4020, L500.2500, L300.4310, L300.3900, L100.0100 #### [facility] [address] [place], [address] Urinalysis, Completeon 02-09 Mucus Ql (Urine sed) RARE Normal [facility] Comment on above: Order Comment: CLEAN CATCH Performed By: #### L 501.4020, L500.2500, L300.4310, L300.3900, L100.0100 #### [facility] [address] [place], [address] BACTERIA 0 SEEN Normal None Seen [facility] Comment on above: Order Comment: CLEAN CATCH Performed By: #### L 501.4020, L500.2500, L300.4310, L300.3900, L100.0100 #### [facility] [address] [place], [address] EPI,SQUAMOUS 0 SEEN Normal 0-[address] [facility] Comment on above: Order Comment: CLEAN CATCH Performed By: #### L 501.4020, L500.2500, L300.4310, L300.3900, L100.0100 #### [facility] [address] [place], [address] RBC 0 SEEN Normal 0-[address] [facility] Comment on above: Order Comment: CLEAN CATCH Performed By: #### L 501.4020, L500.2500, L300.4310, L300.3900, L100.0100 #### [facility] [address] [place], [address] WBC 0 SEEN Normal 0-[address] [facility] Comment on above: Order Comment: CLEAN CATCH Performed By: #### L 501.4020, L500.2500, L300.4310, L300.3900, L100.0100 #### [facility] [address] [place], [address] Bedside Glucoseon 01-05-2024 FINGERSTICK GLU 178 mg/dL High 74-[address] [facility] Comment on above: Result Comment: REN LOCKWOOD OF PATIENT CARE PER NURSING PROTOCOL Performed By: #### L 501.4020, L500.2500, L300.4310, L300.3900, L100.0100 #### [facility] [address] [place], [address] COVID 19 AG RAPID (TRE Mabry)on 01-05-2024 SARS-CoV-2 (COVID-19) RNA MATILDA+probe Ql (Unsp spec) *Negative results from patients with symptom onset beyond five days should be treated as presumptive and confirmed by a molecular assay if clinically necessary. Negative results should not be used as the sole basis for treatment or for patient management. SARS-CoV-2 Ag Resp Ql IA.rapid *Positive results do not differentiate between SARS-CoV and SARS-CoV-2. If differentiation of the specific SARS virus is desired an additional sample and an additional order is required. SARS-CoV-2 Ag Resp Ql IA.rapid * This test has not been FDA cleared or approved; the test has been authorized by FDA under an Emergency Use Authorization (EAU) for use by laboratories certified under CLIA that meet the requirements to perform moderate, high, or waived complexity tests. SARS-CoV-2 Ag Resp Ql IA.rapid Normal Reference Range: Negative SARS-CoV-2 (COVID 19) Negative RAPID METHOD Quidel Ro Analyzer JENIFFER Normal [facility] Comment on above: Performed By: #### L 501.4020, L500.2500, L300.4310, L300.3900, L100.0100 #### [facility] [address] [facility] [place], [address] Bedside Glucoseon 01-04-2024 FINGERSTICK GLU 169 mg/dL High 74-[address] [facility] Comment on above: Result Comment: REN GEMENT OF PATIENT CARE PER NURSING PROTOCOL Performed By: #### L 501.4020, L500.2500, L300.4310, L300.3900, L100.0100 #### [facility] [address] [place], [address] FINGERSTICK GLU 223 mg/dL High 74-[address] [facility] Comment on above: Result Comment: REN GEMENT OF PATIENT CARE PER NURSING PROTOCOL Performed By: #### L 501.4020, L500.2500, L300.4310, L300.3900, L100.0100 #### [facility] [address] [place], [address] FINGERSTICK GLU 310 mg/dL High [address] [place] [address] Comment on above: Result Comment: REN GEMENT OF PATIENT CARE PER NURSING PROTOCOL Performed By: #### L 501.4020, L500.2500, L300.4310, L300.3900, L100.0100 #### [facility] [address] [place], [address] FINGERSTICK GLU 180 mg/dL High -[address] [facility] Comment on above: Result Comment: REN GEMENT OF PATIENT CARE PER NURSING PROTOCOL Performed By: #### L 501.080 #### [facility] [address] [place], [address] Bedside Glucoseon 01-03-2024 FINGERSTICK GLU 261 mg/dL High [address] [place] [address] Comment on above: Result Comment: REN GEMENT OF PATIENT CARE PER NURSING PROTOCOL Performed By: #### L 501.4020, L500.2500, L300.4310, L300.3900, L100.0100 #### [facility] [address] [place], [address] FINGERSTICK GLU 305 mg/dL High [address] [place] [address] Comment on above: Result Comment: REN GEMENT OF PATIENT CARE PER NURSING PROTOCOL Performed By: #### L 501.4020, L500.2500, L300.4310, L300.3900, L100.0100 #### [facility] [address] [place], [address] FINGERSTICK GLU 207 mg/dL High [address] [place] [address] Comment on above: Result Comment: REN GEMENT OF PATIENT CARE PER NURSING PROTOCOL Performed By: #### L 501.4020, L500.2500, L300.4310, L300.3900, L100.0100 #### [facility] [address] [place], [address] FINGERSTICK GLU 105 mg/dL Normal 74-[address] [facility] Comment on above: Result Comment: REN GEMENT OF PATIENT CARE PER NURSING PROTOCOL Performed By: #### L 501.4020, L500.2500, L300.4310, L300.3900, L100.0100 #### [facility] [address] [place], [address] FINGERSTICK GLU 167 mg/dL High 74-[address] [facility] Comment on above: Result Comment: REN GEMENT OF PATIENT CARE PER NURSING PROTOCOL Performed By: #### L 500.4050, L501.6900, L100.0100, L501.2450 #### [facility] [address] [place], [address] FINGERSTICK GLU 301 mg/dL High 74-[address] [facility] Comment on above: Result Comment: REN GEMENT OF PATIENT CARE PER NURSING PROTOCOL Performed By: #### L 500.4050, L501.6900, L100.0100, L501.2450 #### [facility] [address] [place], [address] Bedside Glucoseon 01-02-2024 FINGERSTICK GLU 178 mg/dL High -[address] [place] [address] Comment on above: Result Comment: REN GEMENT OF PATIENT CARE PER NURSING PROTOCOL Performed By: #### L 501.4020, L500.2500, L300.4310, L300.3900, L100.0100 #### [facility] [address] [place], [address] FINGERSTICK GLU 229 mg/dL High [facility] [facility] Comment on above: Result Comment: REN GEMENT OF PATIENT CARE PER NURSING PROTOCOL Performed By: #### L 501.4020, L500.2500, L300.4310, L300.3900, L100.0100 #### [facility] [address] [place], [address] FINGERSTICK GLU 158 mg/dL High 74-[address] [facility] Comment on above: Result Comment: REN GEMENT OF PATIENT CARE PER NURSING PROTOCOL Performed By: #### L 501.080 #### [facility] [address] [place], [address] Bedside Glucoseon 01-01-2024 FINGERSTICK GLU 208 mg/dL High -[address] [facility] Comment on above: Result Comment: REN GEMENT OF PATIENT CARE PER NURSING PROTOCOL Performed By: #### L 501.4020, L500.2500, L300.4310, L300.3900, L100.0100 #### [facility] [address] [place], [address] FINGERSTICK GLU 168 mg/dL High -[address] [facility] Comment on above: Result Comment: REN GEMENT OF PATIENT CARE PER NURSING PROTOCOL Performed By: #### L 501.080 #### [facility] [address] [place], [address] FINGERSTICK GLU 167 mg/dL High -[address] [place] [address] Comment on above: Result Comment: REN GEMENT OF PATIENT CARE PER NURSING PROTOCOL Performed By: #### L 501.4020, L500.2500, L300.4310, L300.3900, L100.0100 #### [facility] [address] [place], [address] FINGERSTICK GLU 88 mg/dL Normal -[address] [facility] Comment on above: Result Comment: REN GEMENT OF PATIENT CARE PER NURSING PROTOCOL Performed By: #### L 501.4020, L500.2500, L300.4310, L300.3900, L100.0100 #### [facility] [address] [place], [address] Basic Metabolic Profile (BMP )on 12-31-2023 BUN/CRE 16.9 RATIO Normal 10-[address] [facility] Comment on above: Performed By: #### L 500.4050, L501.6900, L100.0100, L501.2450 #### [facility] [address] [place], [address] CA,Total 8.9 mg/dL Normal 8.5-10.[address] [facility] Comment on above: Performed By: #### L 500.4050, L501.6900, L100.0100, L501.2450 #### [facility] [address] [place], [address] Chloride [Moles/Vol] 101 mmol/L Normal 98-107 [facility] Comment on above: Performed By: #### L 500.4050, L501.6900, L100.0100, L501.2450 #### [facility] [address] [place], [address] CO2 [Moles/Vol] 28.0 mmol/L Normal 21.0-32.[address] [facility] Comment on above: Performed By: #### L 500.4050, L501.6900, L100.0100, L501.2450 #### [facility] [address] [place], [address] Creatinine [Mass/Vol] 1.48 mg/dL High 0.70-1.30 [facility] Comment on above: Result Comment: The validity of the calculated GFR GFRAA in patients over 70 years has not been determined. Clinical correlation is essential. Performed By: #### L 500.4050, L501.6900, L100.0100, L501.2450 #### [facility] [address] [place], [address] ECRCL 52.64 ml/min Normal [facility] Comment on above: Performed By: #### L 500.4050, L501.6900, L100.0100, L501.2450 #### [facility] [address] [place], [address] EST GFR - AA 61 mL/min Normal >[address] [facility] Comment on above: Result Comment: Afri can Ecuadorean GFR Calc Performed By: #### L 500.4050, L501.6900, L100.0100, L501.2450 #### [facility] [address] [place], [address] GAP 5 Normal 5-[address] [facility] Comment on above: Performed By: #### L 500.4050, L501.6900, L100.0100, L501.2450 #### [facility] [address] [place], [address] GFR/1.73 sq M.predicted among non-blacks MDRD (S/P/Bld) [Vol rate/Area] 50 mL/min/{1.73_m2} Low >[address] [facility] Comment on above: Result Comment: Non- GFR Calc Performed By: #### L 500.4050, L501.6900, L100.0100, L501.2450 #### [facility] [address] [place], [address] Glucose [Mass/Vol] 248 mg/dL High 74-106 [facility] Comment on above: Result Comment: Gluc ose result greater than or equal to 200 mg/dL suggests DIABETES MELLITUS per A.D.A. criteria. Performed By: #### L 500.4050, L501.6900, L100.0100, L501.2450 #### [facility] [address] [place], [address] Potassium [Moles/Vol] 5.0 mmol/L Normal 3.5-5.1 [facility] Comment on above: Result Comment: Slig ht Hemolysis, Result may be falsely increased. Performed By: #### L 500.4050, L501.6900, L100.0100, L501.2450 #### [facility] [address] [place], [address] Sodium [Moles/Vol] 134 mmol/L Low 136-145 [facility] Comment on above: Performed By: #### L 500.4050, L501.6900, L100.0100, L501.2450 #### [facility] [address] [place], [address] Urea nitrogen [Mass/Vol] 25 mg/dL High 7-[address] [facility] Comment on above: Performed By: #### L 500.4050, L501.6900, L100.0100, L501.2450 #### [facility] [address] [place], [address] Bedside Glucoseon 12-31-2023 FINGERSTICK GLU 260 mg/dL High 74-[address] [facility] Comment on above: Result Comment: REN GEMENT OF PATIENT CARE PER NURSING PROTOCOL Performed By: #### L 501.4020, L500.2500, L300.4310, L300.3900, L100.0100 #### [facility] [address] [place], [address] FINGERSTICK GLU 218 mg/dL High 74-[address] [facility] Comment on above: Result Comment: REN GEMENT OF PATIENT CARE PER NURSING PROTOCOL Performed By: #### L 501.080 #### [facility] [address] [place], [address] FINGERSTICK GLU 222 mg/dL High 74-[address] [facility] Comment on above: Result Comment: REN GEMENT OF PATIENT CARE PER NURSING PROTOCOL Performed By: #### L 500.4050, L501.6900, L100.0100, L501.2450 #### [facility] [address] [place], [address] Brain without Contraston Brain without Contrast [facility] Services [address] [place] [address] Brain without Contrast MR#: [id number] Acct: [id number] Name: OPAL CRUZ Rep #: [id number] : 1955 M 68 From: Sunil Spear PCP: [facility] Status: ADM IN Study: Brain without Contrast Date of Exam: 12/31/23 Exam# [id number] Ordering Dr: [place] [id number] STUDY: MRI BRAIN WITHOUT CONTRAST REASON FOR EXAM: Male, 68 years old. Acute CVA 24hrs after Tenecteplase administration. Additional history- prior stroke, lt side weakness, mild headache, prior MR 2022, 2021 TECHNIQUE: Standardized multiplanar fat and water weighted pulse sequences were obtained. MRI examination brain fusion protocol including multiplanar multiecho noncontrast imaging. Contrast: No contrast administered. COMPARISON: CT examination of 12/30/2023 MRI examination of 06/30/2022. HEMISPHERES, CEREBELLUM AND BRAINSTEM: 1. The cerebral parenchyma, ventricular system and gyral pattern have normal configuration. Diffuse involutional change and chronic microvascular deep white matter disease. 2. No areas of fluid restriction or acute ischemia. No areas of intraparenchymal hemorrhage. 3. Prominent perivascular spaces throughout the basal ganglia. 4. Remote lacunar infarct within the RIGHT thalamus. Additional remote lacunar infarct in the RIGHT pina. 5. No intraparenchymal mass, hemorrhage, or acute territorial infarct. 6. The cerebellum, brainstem, basilar and suprasellar cisterns have normal configuration. No Chiari malformation. PITUITARY: Infundibulum and pituitary have normal configuration. Midline structures appear normal. CSF SPACES: Appropriate for age. No hydrocephalus. Basal cisterns are patent. VESSELS: 1. There are normal flow voids noted in the great vessels at the skull base ORBITS AND PARANASAL SINUSES: 1. Both globes, extraocular muscles, optic nerves and retrobulbar fat appear unremarkable. 2. Diffuse mucosal thickening ethmoid complexes without air-fluid levels. 3. Moderate to extensive bilateral mastoid air cell disease. BONY ELEMENTS: Bony elements of the cranial vault, facial skeleton and skull base have normal appearance. SCALP AND SOFT TISSUES: Normal appearance of the soft tissues of the scalp and the visualized face OTHER: None MRI/Brain without Contrast IMPRESSION: 1. Stable exam. 2. Diffuse involutional changes, chronic microvascular deep white matter disease and areas of remote lacunar infarct. 3. No mass, hemorrhage, or acute territorial infarct. 4. Chronic ethmoid sinus mucosal thickening and significant bilateral mastoid air cell disease. Electronically Signed: Sunil Kenny MD at 21:37 EDT , CC: Dr. Sofia Treadwell, DO; [facility] Towel Distributor: Signed Normal [facility] CBC W/Diff, Automatedon 12-14 Absolute Lymph 0.94 X10 3/uL Normal 0.83-4.[address] [facility] Comment on above: Performed By: #### L 501.080 #### [facility] [address] [place], [address] Absolute Neut 7.2 X10 3/uL Normal 2.0-7.[address] [facility] Comment on above: Performed By: #### L 501.080 #### [facility] [address] [place], [address] Basophils/100 WBC (Bld) 0.3 % Normal 0-1 [facility] Comment on above: Performed By: #### L 501.080 #### [facility] [address] [place], [address] Eosinophils/100 WBC (Bld) 1.2 % Normal 0-[address] [facility] Comment on above: Performed By: #### L 501.080 #### [facility] [address] [place], [address] Erythrocyte distribution width (RBC) [Ratio] 12.9 % Normal 11.6-14.[address] [facility] Comment on above: Performed By: #### L 501.080 #### [facility] [address] [place], [address] Hematocrit (Bld) [Volume fraction] 43.7 % Normal 40-[address] [facility] Comment on above: Performed By: #### L 501.080 #### [facility] [address] [place], [address] Hemoglobin (Bld) [Mass/Vol] 14.5 g/dL Normal 13.0-16.[address] [facility] Comment on above: Performed By: #### L 501.080 #### [facility] [address] [place], [address] IG% 0.400 Normal 0.0-0.[address] [facility] Comment on above: Result Comment: IG% - Immature Granulocytes (promyelocytes, myelocytes and metamyelocytes) > 1% indicates that a LEFT SHIFT is Present. Performed By: #### L 501.080 #### [facility] [address] [place], [address] Lymphocytes/100 WBC (Bld) 10.5 % Low 19-[address] [facility] Comment on above: Performed By: #### L 501.080 #### [facility] [address] [place], [address] MCH (RBC) [Entitic mass] 29.1 pg Normal 27.0-32.[address] [facility] Comment on above: Performed By: #### L 501.080 #### [facility] [address] [place], [address] MCHC (RBC) [Mass/Vol] 33.2 g/dL Normal 32-36 [facility] Comment on above: Performed By: #### L 501.080 #### [facility] [address] [place], [address] MCV (RBC) [Entitic vol] 87.8 fL Normal 80-94 [facility] Comment on above: Performed By: #### L 501.080 #### [facility] [address] [place], [address] Monocytes/100 WBC (Bld) 7.1 % Normal 0-10 [facility] Comment on above: Performed By: #### L 501.080 #### [facility] [address] [place], [address] Neutrophils/100 WBC (Bld) 80.5 % High 47-[address] [facility] Comment on above: Performed By: #### L 501.080 #### [facility] [address] [place], [address] Nucleated RBC (Bld) [#/Vol] 0 10*3/uL Normal 0-[address] [facility] Comment on above: Performed By: #### L 501.080 #### [facility] [address] [place], [address] Platelet mean volume (Bld) [Entitic vol] 10.4 fL Normal 6.2-12.[address] [facility] Comment on above: Performed By: #### L 501.080 #### [facility] [address] [place], [address] Platelets (Bld) [#/Vol] 142 10*3/uL Low 150-[address] [facility] Comment on above: Performed By: #### L 501.080 #### [facility] [address] [place], [address] RBC (Bld) [#/Vol] 4.98 10*6/uL Normal 4.6-6.2 [facility] Comment on above: Performed By: #### L 501.080 #### [facility] [address] [place], [address] RDW SD 41.2 fl Normal 35.1-43.[address] [facility] Comment on above: Performed By: #### L 501.080 #### [facility] [address] [place], [address] WBC (Bld) [#/Vol] 9.0 10*3/uL Normal 4.4-11.0 [facility] Comment on above: Performed By: #### L 501.080 #### [facility] [address] [place], [address] Comprehensive Metabolic Prof ilon 12-31-2023 Albumin [Mass/Vol] 3.4 g/dL Normal 3.2-5.0 [facility] Comment on above: Performed By: #### L 501.080 #### [facility] [address] [place], [address] Albumin/Globulin [Mass ratio] 0.8 {ratio} Low 0.9-2.[address] [facility] Comment on above: Performed By: #### L 501.080 #### [facility] [address] [place], [address] ALK P 126 U/L High 45-[address] [facility] Comment on above: Performed By: #### L 501.080 #### [facility] [address] [place], [address] ALT [Catalytic activity/Vol] 89 U/L High 16-[address] [facility] Comment on above: Performed By: #### L 501.080 #### [facility] [address] [place], [address] AST [Catalytic activity/Vol] 55 U/L High 15-[address] [facility] Comment on above: Result Comment: Mode rate Hemolysis, Result may be falsely increased. Performed By: #### L 501.080 #### [facility] [address] [place], [address] Bilirubin [Mass/Vol] 0.60 mg/dL Normal 0.20-1.00 [facility] Comment on above: Result Comment: For patients on eltrombopag therapy, use of Dimension [place] TBIL is not recommended. Performed By: #### L 501.080 #### [facility] [address] [place], [address] BUN/CRE 19.4 RATIO Normal 10-[address] [facility] Comment on above: Performed By: #### L 501.080 #### [facility] [address] [place], [address] CA,Total 8.7 mg/dL Normal 8.5-10.[address] [facility] Comment on above: Performed By: #### L 501.080 #### [facility] [address] [place], [address] Chloride [Moles/Vol] 101 mmol/L Normal 98-107 [facility] Comment on above: Performed By: #### L 501.080 #### [facility] [address] [place], [address] CO2 [Moles/Vol] 28.0 mmol/L Normal 21.0-32.[address] [facility] Comment on above: Performed By: #### L 501.080 #### [facility] [address] [place], [address] Creatinine [Mass/Vol] 1.44 mg/dL High 0.70-1.30 [facility] Comment on above: Result Comment: The validity of the calculated GFR GFRAA in patients over 70 years has not been determined. Clinical correlation is essential. Performed By: #### L 501.080 #### [facility] [address] [place], [address] ECRCL 54.10 ml/min Normal [facility] Comment on above: Performed By: #### L 501.080 #### [facility] [address] [place], [address] EST GFR - AA 63 mL/min Normal >[address] [facility] Comment on above: Result Comment: Afri can Ecuadorean GFR Calc Performed By: #### L 501.080 #### [facility] [address] [place], [address] GAP 6 Normal 5-[address] [facility] Comment on above: Performed By: #### L 501.080 #### [facility] [address] [place], [address] GFR/1.73 sq M.predicted among non-blacks MDRD (S/P/Bld) [Vol rate/Area] 52 mL/min/{1.73_m2} Low >[address] [facility] Comment on above: Result Comment: Non- GFR Calc Performed By: #### L 501.080 #### [facility] [address] [place], [address] Globulin (S) [Mass/Vol] 4.4 g/dL High 2.2-4.2 [facility] Comment on above: Performed By: #### L 501.080 #### [facility] [address] [place], [address] Glucose [Mass/Vol] 250 mg/dL High 74-106 [facility] Comment on above: Result Comment: Gluc ose result greater than or equal to 200 mg/dL suggests DIABETES MELLITUS per A.D.A. criteria. Performed By: #### L 501.080 #### [facility] [address] [place], [address] Potassium [Moles/Vol] 5.4 mmol/L High 3.5-5.1 [facility] Comment on above: Result Comment: Mode rate Hemolysis, Result may be falsely increased. Performed By: #### L 501.080 #### [facility] [address] [place], [address] Sodium [Moles/Vol] 135 mmol/L Low 136-145 [facility] Comment on above: Performed By: #### L 501.080 #### [facility] [address] [place], [address] T PROT 7.8 g/dL Normal 6.4-8.[address] [facility] Comment on above: Performed By: #### L 501.080 #### [facility] [address] [place], [address] Urea nitrogen [Mass/Vol] 28 mg/dL High 7-[address] [facility] Comment on above: Performed By: #### L 501.080 #### [facility] [address] [place], [address] Consultation - Intensiviston 12-31-2023 Consultation - Beam Department Supervisor [facility] Medical Records Department [address] [place] [address] Consultation - Beam Department Supervisor 12/31/23 0637 MR#: [id number] Acct: [id number] Name: OPAL CRUZ Rep #: [id number] : 1955 68 From: Elias Rosado MD PCP: [facility] Status:ADM IN Location: ICU ICU01-1 HPI Consult Data Date of Consult: 12/31/23 HPI Narrative Reason for Consultation: Stroke HPI Narrative: OPAL CRUZ, is a 68 M SEBASTIAN on CPAP, CVA with residual weakness on left, DM, CKD, CAD, HTN, Hypothyroid, GERD, h/o GI bleed, HLD, Depression and Anxiety presented for worsening left sided weakness. Patient had been to his eye appointment on 12/29 at [facility] and after returning home at around 2:30PM he started noticing worsening of his left sided weakness causing him to ambulate with difficult. Patient denies fever, chills, nausea, vomiting, headache, diaphoresis. Patient did have dizziness associated with the above symptoms. Patient LKN 2:30PM and received TNK at round 4:50PM. Patient had no bleeding on CT head. [facility] Medical History (Updated 12/30/23 @ 18:[address] Sofia Treadwell, DO) Right pontine stroke Diabetic retinopathy Narcolepsy Depression Anxiety Diabetic polyneuropathy Vitamin D deficiency Migraine headache Obstructive sleep apnea Hyperlipidemia Coronary artery disease Ischemic stroke Hernia History of COVID-19 Vision loss of right eye Hearing loss, left Hearing loss, right Hypothyroidism Chronic pain Osteoporosis GERD (gastroesophageal reflux disease) GI bleed Former smoker CPAP (continuous positive airway pressure) dependence Sleep apnea Chest pain Elevated troponin Elevated lipase Myocardial infarct DM2 (diabetes mellitus, type 2) Essential (primary) hypertension Home Medications ???Medication ???Instructions ???Recorded ???Last Taken ???Type metoprolol tartrate 100 mg tablet 25 mg PO BID blood pressure 10/05/16 06/28/22 History nortriptyline 10 mg capsule 30 mg PO DAILY migraines 10/05/16 2 Days Ago History 06/26/22 modafinil 200 mg tablet 200 mg PO DAILY narcolepsy 06/17/19 04/03/21 08:00 History aspirin 81 mg chewable tablet 81 mg PO DAILY heart health 08/17/19 06/28/22 History tamsulosin 0.4 mg capsule 0.4 mg PO DAILY urine 03/30/21 06/27/22 History pregabalin 100 mg capsule 200 - 300 mg PO BID pain 03/19/22 06/28/22 History sertraline 150 mg capsule 150 mg PO DAILY mood 03/19/22 06/28/22 History acetaminophen 500 mg tablet 1,000 mg (2 x 500 mg) PO Q6H PRN 04/16/22 Unknown Rx PRN Pain Score 1-10 #1 TAB magnesium chloride 64 mg 128 mg (2 x 64 mg) PO BID #60 tabs 04/16/22 06/28/22 Rx (magnesium chloride) tablet,delayed release (Mag 64) amlodipine 10 mg tablet 5 mg PO DAILY 04/30/22 06/28/22 History sacubitril 49 mg-valsartan 51 mg 1 tab PO BID #180 tabs 04/30/22 06/28/22 Rx tablet (Entresto) insulin regular hum U-500 conc 500 75 units subcut 1130 06/28/22 06/27/22 History unit/mL(3 mL) subcut pen (Humulin R U-500 (Conc) Insulin Kwikpen) insulin regular hum U-500 conc 500 85 units subcut 1630 06/28/22 06/27/22 History unit/mL(3 mL) subcut pen (Humulin R U-500 (Conc) Insulin Kwikpen) insulin regular hum U-500 conc 500 85 units subcut BREAKFAST 06/28/22 06/28/22 History unit/mL(3 mL) subcut pen (Humulin R U-500 (Conc) Insulin Kwikpen) metoclopramide HCl 10 mg tablet 10 mg PO Q6H PRN nausea and 04/27/23 Unknown Rx (Reglan) vomiting #10 tabs amoxicillin 875 mg-potassium 1 tab PO BID 12/30/23 Unknown History clavulanate 125 mg tablet atorvastatin 40 mg tablet (Lipitor) 40 mg PO QHS 12/30/23 Unknown History furosemide 20 mg tablet 20 mg PO DAILY 12/30/23 Unknown History sertraline 100 mg tablet 100 mg PO DAILY 12/30/23 Unknown History spironolactone 25 mg tablet 25 mg PO DAILY 12/30/23 Unknown History (Aldactone) Allergy/AdvReac Type Severity Reaction Status Date / Time No Known Allergies Allergy Verified 04/27/23 13:56 Family History Mother Diabetes Father Heart disease CVA (cerebral vascular accident) Surgical History History of hernia surgery History of cholecystectomy History of back surgery Social History household members: spouse and children housing: apartment current occupational status: disabled Smoking Status: Unknown if ever smoked Tobacco: How many years used: 30 how long ago did patient quit smokin alcohol intake: never substance use type: does not use diet: diabetic caffeine: Yes Type: coffee Number of servings: 1 what type of physical activity do you participate in: walking ROS ROS Narrative As per HPI Objective Data Objective Data Vital Signs: (more content not included)... Normal [facility] Magnesiumon 12-31-2023 Magnesium [Mass/Vol] 2.3 mg/dL Normal 1.6-2.6 [facility] Comment on above: Result Comment: Mode rate Hemolysis, Result may be falsely increased. Performed By: #### L 501.080 #### [facility] [address] [place], [address] Phosphoruson 12-31-2023 Phosphate [Mass/Vol] 3.5 mg/dL Normal 2.5-4.9 [facility] Comment on above: Performed By: #### L 501.080 #### [facility] [address] [place], [address] 12 Lead EKGon 12-30-2023 12 Lead EKG [facility] Services [address] [facility] [place] [address] 12 Lead EKG 12/30/23 1653 MR#: [id number] Acct: [id number] Name: OPAL CRUZ Rep #: [id number] : 1955 68 From: Selwyn Yañez MD Attending Dr: Dr. Stevenson Rodriguez DO Status: A DM IN Ordering Dr: Carlo Santana DO Date: 12/30/23 Location: ICU Sex: M C Admitted: 12/30/23 Test Reason : POSS STROKE Blood Pressure : / mmHG Vent. Rate : 083 BPM Atrial Rate : 083 BPM P-R Int : 196 ms QRS Dur : 146 ms QT Int : 426 ms P-R-T Axes : 048 -38 020 degrees QTc Int : 500 ms Sinus rhythm with Fusion complexes Left axis deviation Right bundle branch block Inferior infarct , age undetermined Abnormal ECG Confirmed by VIRGILIO FERREIRA, BLAYNE ([id number]), news video editor GENARO JIMENEZ ([id number]) on 01/01/2024 10:37:34 AM Referred By: Confirmed By:LUNA YAÑEZ MD 01/01/24 1037 Date Selwyn Yañez MD CC: Dr. Carlo Santana DO; Dr. Stevenson Rodriguez DO; [facility] Signed Normal [facility] Basic Metabolic Profile (BMP )on 12-30-2023 BUN/CRE 18.9 RATIO Normal 10-[address] [facility] [facility] Comment on above: Order Comment: 'TROP ' Serial specimen #1, #2 or #3: 1 Performed By: #### L 501.4020, L500.2500, L300.4310, L300.3900, L100.0100 #### [facility] [address] [place], [address] CA,Total 9.2 mg/dL Normal 8.5-10.[address] [facility] Comment on above: Order Comment: 'TROP ' Serial specimen #1, #2 or #3: 1 Performed By: #### L 501.4020, L500.2500, L300.4310, L300.3900, L100.0100 #### [facility] [address] [place], [address] Chloride [Moles/Vol] 101 mmol/L Normal 98-107 [facility] Comment on above: Order Comment: 'TROP ' Serial specimen #1, #2 or #3: 1 Performed By: #### L 501.4020, L500.2500, L300.4310, L300.3900, L100.0100 #### [facility] [address] [place], [address] CO2 [Moles/Vol] 25.0 mmol/L Normal 21.0-32.[address] [facility] Comment on above: Order Comment: 'TROP ' Serial specimen #1, #2 or #3: 1 Performed By: #### L 501.4020, L500.2500, L300.4310, L300.3900, L100.0100 #### [facility] [address] [place], [address] Creatinine [Mass/Vol] 1.75 mg/dL High 0.70-1.30 [facility] Comment on above: Order Comment: 'TROP ' Serial specimen #1, #2 or #3: 1 Result Comment: The validity of the calculated GFR GFRAA in patients over 70 years has not been determined. Clinical correlation is essential. Performed By: #### L 501.4020, L500.2500, L300.4310, L300.3900, L100.0100 #### [facility] [address] [place], [address] ECRCL 44.87 ml/min Normal [facility] Comment on above: Order Comment: 'TROP ' Serial specimen #1, #2 or #3: 1 Performed By: #### L 501.4020, L500.2500, L300.4310, L300.3900, L100.0100 #### [facility] [address] [place], [address] EST GFR - AA 50 mL/min Low >[address] [facility] Comment on above: Order Comment: 'TROP ' Serial specimen #1, #2 or #3: 1 Result Comment: Afri can Ecuadorean GFR Calc Performed By: #### L 501.4020, L500.2500, L300.4310, L300.3900, L100.0100 #### [facility] [address] [place], [address] GAP 10 Normal 5-[address] [facility] Comment on above: Order Comment: 'TROP ' Serial specimen #1, #2 or #3: 1 Performed By: #### L 501.4020, L500.2500, L300.4310, L300.3900, L100.0100 #### [facility] [address] [place], [address] GFR/1.73 sq M.predicted among non-blacks MDRD (S/P/Bld) [Vol rate/Area] 41 mL/min/{1.73_m2} Low >[address] [facility] Comment on above: Order Comment: 'TROP ' Serial specimen #1, #2 or #3: 1 Result Comment: Non- GFR Calc Performed By: #### L 501.4020, L500.2500, L300.4310, L300.3900, L100.0100 #### [facility] [address] [place], [address] Glucose [Mass/Vol] 161 mg/dL High 74-106 [facility] Comment on above: Order Comment: 'TROP ' Serial specimen #1, #2 or #3: 1 Result Comment: Fast ing Glucose result greater than or equal to 126 mg/dL suggests DIABETES MELLITUS per A.D.A. criteria. Performed By: #### L 501.4020, L500.2500, L300.4310, L300.3900, L100.0100 #### [facility] [address] [place], [address] Potassium [Moles/Vol] 4.2 mmol/L Normal 3.5-5.1 [facility] Comment on above: Order Comment: 'TROP ' Serial specimen #1, #2 or #3: 1 Performed By: #### L 501.4020, L500.2500, L300.4310, L300.3900, L100.0100 #### [facility] [address] [place], [address] Sodium [Moles/Vol] 136 mmol/L Normal 136-145 [facility] Comment on above: Order Comment: 'TROP ' Serial specimen #1, #2 or #3: 1 Performed By: #### L 501.4020, L500.2500, L300.4310, L300.3900, L100.0100 #### [facility] [address] [place], [address] Urea nitrogen [Mass/Vol] 33 mg/dL High 7-[address] [facility] Comment on above: Order Comment: 'TROP ' Serial specimen #1, #2 or #3: 1 Performed By: #### L 501.4020, L500.2500, L300.4310, L300.3900, L100.0100 #### [facility] [address] [place], [address] Bedside Glucoseon 12-30-2023 FINGERSTICK GLU 229 mg/dL High 74-[address] [facility] Comment on above: Result Comment: REN LOCKWOOD OF PATIENT CARE PER NURSING PROTOCOL Performed By: #### L 501.4020, L500.2500, L300.4310, L300.3900, L100.0100 #### [facility] [address] [place], [address] CBC W/Diff, Automatedon 12-14 Absolute Lymph 1.96 X10 3/uL Normal 0.83-4.[address] [facility] Comment on above: Performed By: #### L 501.4020, L500.2500, L300.4310, L300.3900, L100.0100 #### [facility] [address] [place], [address] Absolute Neut 5.3 X10 3/uL Normal 2.0-7.[address] [facility] Comment on above: Performed By: #### L 501.4020, L500.2500, L300.4310, L300.3900, L100.0100 #### [facility] [address] [place], [address] Basophils/100 WBC (Bld) 0.6 % Normal 0-1 [facility] Comment on above: Performed By: #### L 501.4020, L500.2500, L300.4310, L300.3900, L100.0100 #### [facility] [address] [place], [address] Eosinophils/100 WBC (Bld) 2.3 % Normal 0-[address] [facility] Comment on above: Performed By: #### L 501.4020, L500.2500, L300.4310, L300.3900, L100.0100 #### [facility] [address] [place], [address] Erythrocyte distribution width (RBC) [Ratio] 12.6 % Normal 11.6-14.[address] [facility] Comment on above: Performed By: #### L 501.4020, L500.2500, L300.4310, L300.3900, L100.0100 #### [facility] [address] [place], [address] Hematocrit (Bld) [Volume fraction] 42.1 % Normal 40-[address] [facility] Comment on above: Performed By: #### L 501.4020, L500.2500, L300.4310, L300.3900, L100.0100 #### [facility] [address] [place], [address] Hemoglobin (Bld) [Mass/Vol] 14.2 g/dL Normal 13.0-16.[address] [facility] Comment on above: Performed By: #### L 501.4020, L500.2500, L300.4310, L300.3900, L100.0100 #### [facility] [address] [place], [address] IG% 0.500 Normal 0.0-0.[address] [facility] Comment on above: Result Comment: IG% - Immature Granulocytes (promyelocytes, myelocytes and metamyelocytes) > 1% indicates that a LEFT SHIFT is Present. Performed By: #### L 501.4020, L500.2500, L300.4310, L300.3900, L100.0100 #### [facility] [address] [place], [address] Lymphocytes/100 WBC (Bld) 23.3 % Normal 19-[address] [facility] Comment on above: Performed By: #### L 501.4020, L500.2500, L300.4310, L300.3900, L100.0100 #### [facility] [address] [place], [address] MCH (RBC) [Entitic mass] 29.0 pg Normal 27.0-32.[address] [facility] Comment on above: Performed By: #### L 501.4020, L500.2500, L300.4310, L300.3900, L100.0100 #### [facility] [address] [place], [address] MCHC (RBC) [Mass/Vol] 33.7 g/dL Normal 32-36 [facility] Comment on above: Performed By: #### L 501.4020, L500.2500, L300.4310, L300.3900, L100.0100 #### [facility] [address] [place], [address] MCV (RBC) [Entitic vol] 86.1 fL Normal 80-94 [facility] Comment on above: Performed By: #### L 501.4020, L500.2500, L300.4310, L300.3900, L100.0100 #### [facility] [address] [place], [address] Monocytes/100 WBC (Bld) 10.7 % High 0-10 [facility] Comment on above: Performed By: #### L 501.4020, L500.2500, L300.4310, L300.3900, L100.0100 #### [facility] [address] [place], [address] Neutrophils/100 WBC (Bld) 62.6 % Normal 47-[address] [facility] Comment on above: Performed By: #### L 501.4020, L500.2500, L300.4310, L300.3900, L100.0100 #### [facility] [address] [place], [address] Nucleated RBC (Bld) [#/Vol] 0 10*3/uL Normal 0-[address] [facility] Comment on above: Performed By: #### L 501.4020, L500.2500, L300.4310, L300.3900, L100.0100 #### [facility] [address] [place], [address] Platelet mean volume (Bld) [Entitic vol] 10.9 fL Normal 6.2-12.[address] [facility] Comment on above: Performed By: #### L 501.4020, L500.2500, L300.4310, L300.3900, L100.0100 #### [facility] [address] [place], [address] Platelets (Bld) [#/Vol] 191 10*3/uL Normal 150-[address] [facility] Comment on above: Performed By: #### L 501.4020, L500.2500, L300.4310, L300.3900, L100.0100 #### [facility] [address] [place], [address] RBC (Bld) [#/Vol] 4.89 10*6/uL Normal 4.6-6.2 [facility] Comment on above: Performed By: #### L 501.4020, L500.2500, L300.4310, L300.3900, L100.0100 #### [facility] [address] [place], [address] RDW SD 39.2 fl Normal 35.1-43.[address] [facility] Comment on above: Performed By: #### L 501.4020, L500.2500, L300.4310, L300.3900, L100.0100 #### [facility] [address] [place], [address] WBC (Bld) [#/Vol] 8.4 10*3/uL Normal 4.4-11.0 [facility] Comment on above: Performed By: #### L 501.4020, L500.2500, L300.4310, L300.3900, L100.0100 #### [facility] [address] [place], [address] Chest 1 Viewon 12-30-2023 Chest 1 View [facility] [address] [place] [address] Chest 1 View MR#: [id number] Acct: [id number] Name: OPAL CRUZ Rep #: [id number] : 1955 M 68 From: Jose lyle MD PCP: [facility] Status: REG ER Study: Chest 1 View Date of Exam: 12/30/23 Exam# [id number] Ordering Dr: [place] [id number] STUDY: X-RAY CHEST REASON FOR EXAM: Male, 68 years old. Neuro deficit, acute, stroke suspected TECHNIQUE: Single AP portable view of the chest. COMPARISON: 01/18/2023. FINDINGS: The lungs are clear and expanded. There is no demonstrated pleural abnormality. Normal size heart. Normal mediastinum and orin. Normal visualized pulmonary arteries. Normal visualized aortic arch and descending thoracic aorta. Normal visualized thoracic spine. Normal visualized ribs, clavicles, and shoulders. There is no demonstrated abnormality of the visualized soft tissue structures of the upper abdomen. RAD/Chest 1 View IMPRESSION: Normal x-ray examination of the chest. Electronically Signed: Jose Mcbride MD at 17:39 EDT , CC: Dr. 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 Echo Completeon 12-30-[address] [facility] [address] [place] [address] Echo Complete 12/31/23 1000 MR#: [id number] Acct: [id number] Name: OPAL CRUZ Rep #: [id number] : 1955 68 From: Selwyn Yañez MD Attending Dr: Dr. Stevenson Rodriguez DO Status: A DM IN Ordering Dr: Sofia Treadwell DO Date: 12/30/23 Location: ICU Sex: M C Admitted: 12/30/23 Reason For Study: TIA/CVA Procedure This was a 2D Doppler, Color Flow transthoracic echocardiogram. Exam performed portable in ICU/CCU. Left Ventricle Normal LV size. The estimated ejection fraction is 65 %. No evidence for diastolic dysfunction. No regional wall motion abnormalities noted. Right Ventricle Normal RV size. Normal systolic function. Atria Normal left atrium. Normal right atrium. No doppler evidence for ASD. Mitral Valve There is no mitral valve stenosis. No mitral valve insufficiency. Tricuspid Valve There is no tricuspid stenosis. No tricuspid valve insufficiency. Aortic Valve Trisinus/trileaflet aortic valve. There is no aortic stenosis. No aortic valve insufficiency. Pulmonic Valve There is no pulmonic valvular stenosis. No pulmonic valve insufficiency. Great Vessels Normal aortic root. Pericardium/Pleural No pericardial effusion. Medication Negative bubble on previous echo. MMode/2D Measurements Calculations LVIDd: 4.0 cm IVSd: 1.2 cm LVOT diam: 2.1 cm LVIDs: 1.7 cm LVPWd: 1.2 cm RVDd: 3.1 cm FS: 56.4 % LVOT area: 3.4 cm2 Ao root diam: 3.2 cm LAV(MOD-bp): 26.6 ml LVAd ap4: 23.1 cm2 LAV(MOD-bp) Indexed: 13.0 ml/m2 LVLd ap4: 7.7 cm LAV(MOD-sp2): 30.1 ml EDV(MOD-sp4): 58.1 ml LAV(MOD-sp4): 20.5 ml EDV(sp4-el): 58.8 ml LVAs ap4: 14.5 cm2 LVLs ap4: 7.0 cm ESV(MOD-sp4): 25.7 ml ESV(sp4-el): 25.3 ml EF(MOD-sp4): 55.8 % EF(sp4-el): 56.9 % LVAd ap2: 22.9 cm2 SV(MOD-sp4): 32.4 ml SV(MOD-sp2): 31.0 ml LVLd ap2: 8.4 cm EDV(MOD-sp2): 54.8 ml EDV(sp2-el): 53.1 ml LVAs ap2: 13.3 cm2 LVLs ap2: 7.2 cm ESV(MOD-sp2): 23.7 ml ESV(sp2-el): 20.9 ml EF(MOD-sp2): 56.7 % SV(sp4-el): 33.4 ml LA dimension(2D): 3.7 cm LA A4 area: 10.4 cm2 RA A4 area: 9.8 cm2 TAPSE: 1.6 cm Time Measurements MV dec time: 0.22 sec Doppler Measurements Calculations MV E max iram: 60.0 cm/sec Lat Peak E' Iram: 7.5 cm/sec Med Peak E' Iram: 4.6 cm/sec MV A max iram: 88.2 cm/sec E/E' lat: 8.0 E/E' med: 13.0 MV E/A: 0.68 Ao V2 max: 118.5 cm/sec LV V1 max: 104.3 cm/sec MV dec slope: 271.9 cm/sec2 Ao max P.6 mmHg LV V1 max P.4 mmHg Ao V2 mean: 88.4 cm/sec LV V1 mean P.1 mmHg Ao mean P.4 mmHg LV V1 mean: 66.6 cm/sec Ao V2 VTI: 22.6 cm LV V1 VTI: 19.0 cm AV (velocity ratio): 0.84 ROSA(I,D): 2.9 cm2 ROSA(V,D): 3.0 cm2 SV(LVOT): 65.3 ml PA V2 max: 100.1 cm/sec PA max PG (full): 0.81 mmHg ECHO/Echo Complete Interpretation Summary The estimated ejection fraction is 65 %. No evidence for diastolic dysfunction. Ordering Physician: Sofia Treadwell Referring Physician: [facility] Performed By: Veronica Palomo RDCS and Student 12/31/23 1545 Date Selwyn Yañez MD CC: Dr. Sofia Treadwell DO; Dr. Stevenson Rodriguez DO; [facility] Date Dictated: 12/31/23 1000 Date Transcribed: 12/31/231544 Towel Distributor: Signed Normal [facility] Emergency Department Summary on 12-30-2023 Emergency Department Summary [facility] Medical Records Department [address] [place] [address] Emergency Department Summary 12/30/23 MR#: [id number] Acct: [id number] Name: OPAL CRUZ Rep #: [id number] : 1955 68 From: Carlo Santana DO PCP: [facility] Status:REG ER Location: ED HPI History of Present Illness Chief Complaint: Weakness Narrative Narrative: 68-year-old male presenting with initial complaint of weakness and shortness of breath. Patient states that he was at the [facility] today and had his eyes dilated for some testing and then on the way home he started to get a mild headache. When he started walking to his house he states he felt like he was going to collapse. He felt like he was short of breath. He states he is typically short of breath when he walks around the house. He does not wear oxygen. He does deny chest pain. After several minutes of talking with him about his weakness he stated to me that the only other time he had this was when he had a stroke. He states that his left arm feels weaker and his left leg is weaker. [facility] Medical History Diabetic retinopathy Narcolepsy Depression Anxiety Diabetic polyneuropathy Vitamin D deficiency Migraine headache Obstructive sleep apnea Hyperlipidemia Coronary artery disease Ischemic stroke Hernia History of COVID-19 Vision loss of right eye Hearing loss, left Hearing loss, right Hypothyroidism Chronic pain Osteoporosis GERD (gastroesophageal reflux disease) GI bleed Former smoker CPAP (continuous positive airway pressure) dependence Sleep apnea Chest pain Elevated troponin Elevated lipase Myocardial infarct DM2 (diabetes mellitus, type 2) Essential (primary) hypertension Home Medications ???Medication ???Instructions ???Recorded ???Last Taken ???Type metoprolol tartrate 100 mg tablet 25 mg PO BID blood pressure 10/05/16 06/28/22 History nortriptyline 10 mg capsule 30 mg PO DAILY migraines 10/05/16 2 Days Ago History 06/26/22 modafinil 200 mg tablet 200 mg PO DAILY narcolepsy 06/17/19 04/03/21 08:00 History aspirin 81 mg chewable tablet 81 mg PO DAILY heart health 08/17/19 06/28/22 History tamsulosin 0.4 mg capsule 0.4 mg PO DAILY urine 03/30/21 06/27/22 History pregabalin 100 mg capsule 200 - 300 mg PO BID pain 03/19/22 06/28/22 History sertraline 150 mg capsule 150 mg PO DAILY mood 03/19/22 06/28/22 History acetaminophen 500 mg tablet 1,000 mg (2 x 500 mg) PO Q6H PRN 04/16/22 Unknown Rx PRN Pain Score 1-10 #1 TAB magnesium chloride 64 mg 128 mg (2 x 64 mg) PO BID #60 tabs 04/16/22 06/28/22 Rx (magnesium chloride) tablet,delayed release (Mag 64) potassium chloride 20 mEq 20 meq PO BIDCM #60 tabs 04/16/22 06/28/22 Rx tablet,extended release(part/cryst) (Klor-Con M) amlodipine 10 mg tablet 5 mg PO DAILY 04/30/22 06/28/22 History sacubitril 49 mg-valsartan 51 mg 1 tab PO BID #180 tabs 04/30/22 06/28/22 Rx tablet (Entresto) insulin regular hum U-500 conc 500 75 units subcut 1130 06/28/22 06/27/22 History unit/mL(3 mL) subcut pen (Humulin R U-500 (Conc) Insulin Kwikpen) insulin regular hum U-500 conc 500 85 units subcut 1630 06/28/22 06/27/22 History unit/mL(3 mL) subcut pen (Humulin R U-500 (Conc) Insulin Kwikpen) insulin regular hum U-500 conc 500 85 units subcut BREAKFAST 06/28/22 06/28/22 History unit/mL(3 mL) subcut pen (Humulin R U-500 (Conc) Insulin Kwikpen) metoclopramide HCl 10 mg tablet 10 mg PO Q6H PRN nausea and 04/27/23 Unknown Rx (Reglan) vomiting #10 tabs atorvastatin 40 mg tablet (Lipitor) 40 mg PO QHS 12/30/23 Unknown History furosemide 20 mg tablet 20 mg PO DAILY 12/30/23 Unknown History sertraline 100 mg tablet 100 mg PO DAILY 12/30/23 Unknown History spironolactone 25 mg tablet 25 mg PO DAILY 12/30/23 Unknown History (Aldactone) Allergy/AdvReac Type Severity Reaction Status Date / Time No Known Allergies Allergy Verified 04/27/23 13:56 Family History Mother Diabetes Father Heart disease CVA (cerebral vascular accident) Surgical History History of hernia surgery History of cholecystectomy History of back surgery Social History household members: spouse and children housing: apartment current occupational status: disabled Smoking Status: Former smoker Tobacco: How many years used: 30 how long ago did patient quit smokin alcohol intake: never substance use type: does not use diet: diabetic caffeine: Yes Type: coffee Number of servings: 1 what type of physical activity do you participate in: walking ROS ROS ED Constitutional Constitut (more content not included)... Normal [facility] H AND P Exam - Hospitaliston 12-30-2023 H&P Exam - Hospitalist [facility] Medical Records Department [address] [place] [address] H P Exam - Hospitalist 12/30/23 7198 MR#: [id number] Acct: [id number] Name: NANCYOPAL JON Rep #: [id number] : 1955 68 From: Sofia Treadwell DO PCP: [facility] Status:ADM IN Location: ICU ICU01-1 HPI - General General Date of Admission: 12/30/23 Date of Service: 12/30/23 Chief Complaint: Left-sided weakness HPI Narrative OPAL CRUZ, is a 68 M who presented to the emergency department at [facility] on 12/30/2023 with a chief complaint of weakness and shortness of breath. Patient was at [facility] today and had his eyes dilated for some testing and then on the way home he started to get a mild headache and while he was walking into the house he felt like he was going to collapse due to left-sided weakness. He reported he typically has some mild shortness of breath when he walks and does not wear oxygen at baseline. When the patient was asked by the emergency department physician if he never had anything previously like this he stated he had symptoms like this when he had previous stroke. He did complain that his left arm feels weaker and his left leg felt weaker than his baseline. He does have left-sided residual deficits from previous stroke. Stroke team was then called the emergency department and workup was pursued. He did indicate that he is currently being treated for lower extremity cellulitis and is on Augmentin. He was on a 7-day course with the last day being on the . He states that his legs are better but not completely back to his baseline. Vital signs on presentation showed temperature of 99.1, heart rate 87, respiratory rate 16, blood pressure is 109/70 and oxygen saturations were 93 to 94% on room air. His CBC was unremarkable. Chemistry panel showed CKD stage IIIb with relatively stable serum creatinine at 1.75 (baseline appears to be between 1.45 and 1.6). Blood glucose was 161. Troponin was 22. Coags were normal. CT of the brain showed chronic emotional changes with no acute changes. CTA of the head and neck show mild 40% right carotid stenosis and mild 20% left carotid artery stenosis with patent vertebral arteries bilaterally and no LVO. Chest x-ray is unremarkable. EKG showed normal sinus rhythm with a incomplete right bundle branch block and no ST-T wave changes concerning for acute ischemia. Stroke team was activated emergency department and neurology saw the patient from [facility] in the emergency department and recommended tenecteplase be given. At the time of tenecteplase dosing his NIH was 3. Current NIH is 2. [facility] Medical History (Updated 12/30/23 @ 18:[address] Sofia Treadwell, DO) Right pontine stroke Diabetic retinopathy Narcolepsy Depression Anxiety Diabetic polyneuropathy Vitamin D deficiency Migraine headache Obstructive sleep apnea Hyperlipidemia Coronary artery disease Ischemic stroke Hernia History of COVID-19 Vision loss of right eye Hearing loss, left Hearing loss, right Hypothyroidism Chronic pain Osteoporosis GERD (gastroesophageal reflux disease) GI bleed Former smoker CPAP (continuous positive airway pressure) dependence Sleep apnea Chest pain Elevated troponin Elevated lipase Myocardial infarct DM2 (diabetes mellitus, type 2) Essential (primary) hypertension Home Medications ???Medication ???Instructions ???Recorded ???Last Taken ???Type metoprolol tartrate 100 mg tablet 25 mg PO BID blood pressure 10/05/16 06/28/22 History nortriptyline 10 mg capsule 30 mg PO DAILY migraines 10/05/16 2 Days Ago History 06/26/22 modafinil 200 mg tablet 200 mg PO DAILY narcolepsy 06/17/19 04/03/21 08:00 History aspirin 81 mg chewable tablet 81 mg PO DAILY heart health 08/17/19 06/28/22 History tamsulosin 0.4 mg capsule 0.4 mg PO DAILY urine 03/30/21 06/27/22 History pregabalin 100 mg capsule 200 - 300 mg PO BID pain 03/19/22 06/28/22 History sertraline 150 mg capsule 150 mg PO DAILY mood 03/19/22 06/28/22 History acetaminophen 500 mg tablet 1,000 mg (2 x 500 mg) PO Q6H PRN 04/16/22 Unknown Rx PRN Pain Score 1-10 #1 TAB magnesium chloride 64 mg 128 mg (2 x 64 mg) PO BID #60 tabs 04/16/22 06/28/22 Rx (magnesium chloride) tablet,delayed release (Mag 64) amlodipine 10 mg tablet 5 mg PO DAILY 04/30/22 06/28/22 History sacubitril 49 mg-valsartan 51 mg 1 tab PO BID #180 tabs 04/30/22 06/28/22 Rx tablet (Entresto) insulin regular hum U-500 conc 500 75 units subcut 1130 06/28/22 06/27/22 History unit/mL(3 mL) subcut pen (Humulin R U-500 (Conc) Insulin Kwikpen) insulin regular hum U-500 conc 500 85 units subcut 1630 06/28/22 06/27/22 History unit/mL(3 mL) subcut pen (Humulin R U-500 (Conc) Insulin Kwikpen) insulin regular hum U-500 conc 500 85 units subcut BREAKFAST 06/28/22 06/28/22 History (more content not included)... Normal [facility] Hemoglobin A1con 12-30-2023 HbA1c (Bld) [Mass fraction] 10.3 % High 3.8-5.[address] [facility] Comment on above: Result Comment: Norm al < 5.7 % Prediabetic 5.7 - 6.4 % Diabetic >or= 6.5 % Please note range changes. Performed By: #### L 501.080 #### [facility] [address] [place], [address] L501.4020on 12-30-2023 TROPONIN-I HS 22 pg/mL Normal 3.0-78.[address] [facility] Comment on above: Order Comment: 'TROP ' Serial specimen #1, #2 or #3: 1 Result Comment: Andrez lugo Note: New Test Units and Gender Specific Reference Ranges. For more information see Policy Stat Procedure [place] High Sensitivity Troponin (TNIH) and attachments. Performed By: #### L 501.4020, L500.2500, L300.4310, L300.3900, L100.0100 #### [facility] [facility] [address] [place], [address] Lipid Profileon 12-30-2023 Cholesterol [Mass/Vol] 133 mg/dL Normal 200 [facility] Comment on above: Order Comment: Comme nts: Fasting lipid profile Result Comment: <200 mg/dL Desirable 200-240 mg/dL Borderline >240 mg/dL High Risk Performed By: #### L 501.080 #### [facility] [address] [place], [address] Cholesterol in HDL [Mass/Vol] 47 mg/dL Normal [facility] Comment on above: Order Comment: Comme nts: Fasting lipid profile Result Comment: The drugs N-Acetylcysteine and Metamizole may falsely depress this assay. Reference Range HDL <40 mg/dL Low HDL Cholesterol HDL >or= 60 mg/dL High HDL Cholesterol Performed By: #### L 501.080 #### [facility] [address] [place], [address] Cholesterol in LDL [Mass/Vol] 30 mg/dL Normal 0-[address] [facility] Comment on above: Order Comment: Comme nts: Fasting lipid profile Performed By: #### L 501.080 #### [facility] [address] [place], [address] Cholesterol in VLDL [Mass/Vol] 56 mg/dL High 5-[address] [facility] Comment on above: Order Comment: Comme nts: Fasting lipid profile Performed By: #### L 501.080 #### [facility] [address] [place], [address] Triglyceride [Mass/Vol] 280 mg/dL High [facility] Comment on above: Order Comment: Comme nts: Fasting lipid profile Result Comment: The drugs N-Acetylcysteine and Metamizole may falsely depress this assay. Serum Triglycerides Reference Interval Normal <150 mg/dL Borderline high 150 - 199 mg/dL High 200 - 499 mg/dL Very High > or = 500 mg/dL Performed By: #### L 501.080 #### [facility] [address] [place], [address] Partial Thromboplast Timeon 12-30-2023 aPTT Coag (Bld) [Time] 23.0 s Low 24.1-36.2 [facility] Comment on above: Performed By: #### L 501.4020, L500.2500, L300.4310, L300.3900, L100.0100 #### [facility] [address] [place], [address] Prothrombin Time w/INRon INR Coag (PPP) [Relative time] 1.0 {INR} Normal [facility] Comment on above: Performed By: #### L 501.4020, L500.2500, L300.4310, L300.3900, L100.0100 #### [facility] [address] [place], [address] PT Coag (PPP) [Time] 13.6 s Normal 11.7-14.9 [facility] Comment on above: Performed By: #### L 501.4020, L500.2500, L300.4310, L300.3900, L100.0100 #### [facility] [address] [place], [address] STROKE Brain/Head without Co nton 12-30-2023 STROKE Brain/Head without Cont [facility] [address] [place] [address] STROKE Brain/Head without Cont MR#: [id number] Acct: [id number] Name: OPAL CRUZ Rep #: [id number] : 1955 M 68 From: Sunil Ann MD PCP: [facility] Status: REG ER Study: STROKE Brain/Head without Cont Date of Exam: 0 12/30/23 Exam# [id number] Ordering Dr: Carlo Santana DO ADDENDUM by Dr. Sunil Ann MD on 12/30/23 at 1633 [id number] STUDY: CT BRAIN WITHOUT CONTRAST REASON FOR EXAM: Male, 68 years old. Neuro deficit, acute, stroke suspected RADIATION DOSAGE (If Supplied By Facility): CTDIvol = ( ) mGy, DLP = ( ) mGycm TECHNIQUE: Transaxial CT imaging of the brain was performed without administration of intravenous contrast material. Individualized dose optimization techniques were used for this CT. COMPARISON: 01/18/2023 FINDINGS: Normal soft tissue structures. Normal calvarium. There is mild cerebral atrophy with widening of the extra-axial spaces and ventricular dilatation. There are areas of decreased attenuation within the white matter tracts of the supratentorial brain, consistent with microvascular disease changes. Normal basal ganglia and thalami. Normal brainstem. Normal cerebellum. There is no intracranial hemorrhage. There are no findings of an acute ischemic infarction. Normal visualized paranasal sinuses. 12/30/23 1633 Date cc: Dr. Carlo Santana DO; [facility] * Signed ADDENDUM by Dr. Sunil Ann MD on 12/30/[address]/STROKE Brain/Head without Cont IMPRESSION: Chronic involutional changes of the brain. N.B. : The above Results were Read Back by Sunil Ann MD to Carlo Santana DO, and understanding confirmed on 12/30/2023 17:12:21 (ET). Electronically Signed: Sunil Ann MD at 16:33 EDT , 12/30/23 1719 Date cc: Dr. Carlo Santana DO; [facility] * Signed We are attempting to reach an attending provider to discuss findings. An addendum with communication details will be sent when the communication is complete. [id number] STUDY: CT BRAIN WITHOUT CONTRAST REASON FOR EXAM: Male, 68 years old. Neuro deficit, acute, stroke suspected RADIATION DOSAGE (If Supplied By Facility): CTDIvol = ( ) mGy, DLP = ( ) mGycm TECHNIQUE: Transaxial CT imaging of the brain was performed without administration of intravenous contrast material. Individualized dose optimization techniques were used for this CT. COMPARISON: 01/18/2023 FINDINGS: Normal soft tissue structures. Normal calvarium. There is mild cerebral atrophy with widening of the extra-axial spaces and ventricular dilatation. There are areas of decreased attenuation within the white matter tracts of the supratentorial brain, consistent with microvascular disease changes. Normal basal ganglia and thalami. Normal brainstem. Normal cerebellum. There is no intracranial hemorrhage. There are no findings of an acute ischemic infarction. Normal visualized paranasal sinuses. CT/STROKE Brain/Head without Cont IMPRESSION: Chronic involutional changes of the brain. Electronically Signed: Sunil Ann MD at 16:33 EDT , CC: Dr. 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 STROKE CTA Head AND Neck W/C onon 12-30-2023 STROKE CTA Head AND Neck W/Con [facility] [address] [place] [address] STROKE CTA Head AND Neck W/Con MR#: [id number] Acct: [id number] Name: OPAL CRUZ Rep #: [id number] : 1955 68 From: Sunil Ann MD PCP: [facility] Status: REG ER Study: STROKE CTA Head AND Neck W/Con Date of Exam: 0 12/30/23 Exam# [id number] Ordering Dr: Carlo Santana DO ADDENDUM by Dr. Sunil Ann MD on 12/30/23 at 1708 [id number] STUDY: CTA HEAD AND NECK WITH CONTRAST REASON FOR EXAM: Male, 68 years old. Neuro deficit, acute, stroke suspected RADIATION DOSAGE (If Supplied By Facility): CTDIvol = ( 18.85 ) mGy, DLP = ( 800.86 ) mGycm TECHNIQUE: CT angiography was performed with a multi-detector CT scanner. Data acquisition was obtained from the skull base through the vertex following intravenous administration of IV 100mL Isovue-370. MIP images were reconstructed from the axial data set. Post-processing of the angiographic images was performed, with multiplanar reformation and 3D reconstruction. Individualized dose optimization techniques were used for this CT. COMPARISON: No relevant priors. FINDINGS: Normal bilateral petrous carotid arteries. There is calcified plaque formation of the right cavernous carotid artery, without a cross-sectional luminal stenosis. There is calcified plaque formation of the left cavernous carotid artery, without a cross-sectional luminal stenosis. Normal right A1 segments of the anterior cerebral artery. Normal left A1 segments of the anterior cerebral artery. Normal intact anterior communicating artery (ACOM). Normal bilateral A2 segments of the anterior cerebral arteries. Normal right M1 and M2 segments of the middle cerebral arteries, with a normal M1 bifurcation. Normal left M1 and M2 segments of the middle cerebral arteries, with a normal M1 bifurcation. Normal right posterior communicating artery (PCOM). Normal left posterior communicating artery (PCOM). Normal bilateral vertebral arteries. Normal basilar artery with a normal basilar bifurcation. The visualized bilateral superior cerebellar (SCA) arteries are normal. Normal bilateral P1, P2 and visualized P3 segments of the posterior cerebral arteries. There is no demonstrated aneurysm of the [place]. There is no demonstrated abnormality of the visualized brain. AORTIC ARCH: Normal visualized aortic arch. Normal origins of the brachiocephalic, left common carotid, and left subclavian arteries. RIGHT CAROTID ARTERIES: Normal right common carotid artery (CCA). There is mild atherosclerotic plaque formation with minimal narrowing of the right carotid bulb. There is mild atherosclerotic plaque formation of the origin of the right internal carotid artery with less than 50% cross sectional diameter stenosis. Normal visualized cervical portion of the right internal carotid artery. Normal origin of the right external carotid artery (ECA). LEFT CAROTID ARTERIES: Thin calcified plaque in the left common carotid artery. There is mild atherosclerotic plaque formation with minimal narrowing of the left carotid bulb. There is mild atherosclerotic plaque formation of the origin of the left internal carotid artery with less than 50% cross sectional diameter stenosis. Normal visualized cervical portion of the left internal carotid artery. Normal origin of the left external carotid artery (ECA). VERTEBRAL ARTERIES: Normal bilateral vertebral arteries. 12/30/23 1709 Date cc: Dr. Carlo Santana DO; [facility] * Signed ADDENDUM by Dr. Sunil Ann MD on 12/30/[address]/STROKE CTA Head AND Neck W/Con IMPRESSION: Normal CTA Head with contrast. Mild (40%) right carotid stenosis. Mild (20%) (left carotid stenosis. Patent vertebral arteries bilaterally. N.B. : The above Results were Read Back by Sunil Ann MD to Carlo Santana DO, and understanding confirmed on 12/30/2023 17:12:15 (ET). Electronically Signed: Sunil Ann MD at 17:09 EDT , 12/30/23 1719 Date cc: Dr. Carlo Santana DO; [facility] * Signed We are attempting to reach an attending provider to discuss findings. An addendum with communication details will be sent when the communication is complete. [id number] STUDY: CTA HEAD AND NECK WITH CONTRAST REASON FOR EXAM: Male, 68 years old. Neuro deficit, acute, stroke suspected RADIATION DOSAGE (If Supplied By Facility): CTDIvol = ( 18.85 ) mGy, DLP = ( 800.86 ) mGycm TECHNIQUE: CT angiography was performed with a mu (more content not included)... Normal [facility] CNOVon 04-26-2023 CNOV Office Visit (UCWSTR ) OPAL CRUZ ([id number]) 1955 M Date Time Provider Department 04/26/23 2:45 PM CALLY WEBB UCWSTR During your visit today, we recorded the following information about you: Temperature Pulse Respiration Blood pressure 98.4 degrees 86/minute 16/minute 132/80 Weight 98.4 kg Cally Webb APRN.[facility] 04/26/2023 3:11 PM Signed Subjective HPI ROS Objective Physical Exam Cally Webb APRN.[facility] 04/26/2023 3:11 PM Signed Subjective Patient came in with complaints of multiple puncture wounds on right arm and hand. Patient says he was messing around with his own dog and the dog nipped at him. Patient says it was about 2 weeks ago and now the areas seem to get red and warm. The history is provided by the patient. No manager language was used. Review of Systems Constitutional: Negative. Skin: Negative. Objective Physical Exam Constitutional: Appearance: Normal appearance. Pulmonary: Effort: Pulmonary effort is normal. Musculoskeletal: Arms: Comments: Mild to moderate erythema around wounds that are scabbed. No drainage noted. Neurological: Mental Status: He is alert. No past medical history on file. No past surgical history on file. ALLERGIES Patient has no known allergies. MEDICATIONS metoprolol tartrate, short acting, (LOPRESSOR) 100 mg tablet Take 100 mg by mouth twice daily. amLODIPine (NORVASC) 5 mg tablet Take by mouth once daily. lisinopril (ZESTRIL, PRINIVIL) 20 mg tablet Take 20 mg by mouth once daily. atorvastatin (LIPITOR) 20 mg tablet Take 20 mg by mouth once daily. modafinil (PROVIGIL) 200 mg tablet Take 200 mg by mouth once daily. Pregabalin (LYRICA) 200 mg capsule Take 200 mg by mouth twice daily. sertraline (ZOLOFT) 100 mg tablet Take 100 mg by mouth once daily. nortriptyline (PAMELOR) 10 mg capsule Take 10 mg by mouth daily at bedtime. tamsulosin (FLOMAX) 0.4 mg Take 0.4 mg by mouth once daily. busPIRone (BUSPAR) 10 mg tablet Take 10 mg by mouth three times daily. insulin glargine,hum.rec.anlog (LANTUS SUBCUTANEOUS) Inject subcutaneously. metFORMIN ER (FORTAMET) 500 mg 24 hr tablet Take 500 mg by mouth daily with breakfast. liraglutide (VICTOZA 3-AHSAN SUBCUTANEOUS) Inject subcutaneously. insulin aspart (NOVOLOG FLEXPEN U-100 INSULIN SUBCUTANEOUS) Inject subcutaneously. doxycycline monohydrate 100 mg tablet Take 1 tablet by mouth two times a day for 7 days. No family history on file. Social History Tobacco Use Smoking status: Never Smokeless tobacco: Never ASSESSMENT/PLAN: 1. Puncture wound - ICD9: 879.8, ICD10: T14.8XXA - DOXYCYCLINE MONOHYDRATE 100 MG TABLET Patient was educated about proper use of medication and supportive therapies. Patient was educated to monitor for signs and symptoms of worsening. Patient will follow-up if anything changes. Patient was okay with this care plan Cally Webb APRN.DIRECTOR OF PRIMARY CARE Allergies As of Date: 04/26/2023 (No Known Allergies) Date Reviewed: 04/26/2023 Reviewed by: Emma Awan - Fully Assessed Reason for Visit: Dog Bite [77152] Cmt: his dog, x 2 weeks, accident, right wrist and forearm Primary Visit Diagnosis:Puncture wound [T14.8XXA] Order(s):doxycycline monohydrate 100 mg tabletTake 1 tablet by mouth two times a day for 7 days.Disp: 14 tabletRfl: 0 Prescriptions as of 04/26/2023 - doxycycline monohydrate 100 mg tablet Take 1 tablet by mouth two times a day for 7 days. - metoprolol tartrate, short acting, (LOPRESSOR) 100 mg tablet Take 100 mg by mouth twice daily. - amLODIPine (NORVASC) 5 mg tablet Take by mouth once daily. - lisinopril (ZESTRIL, PRINIVIL) 20 mg tablet Take 20 mg by mouth once daily. - atorvastatin (LIPITOR) 20 mg tablet Take 20 mg by mouth once daily. - modafinil (PROVIGIL) 200 mg tablet Take 200 mg by mouth once daily. - Pregabalin (LYRICA) 200 mg capsule Take 200 mg by mouth twice daily. - sertraline (ZOLOFT) 100 mg tablet Take 100 mg by mouth once daily. - nortriptyline (PAMELOR) 10 mg capsule Take 10 mg by mouth daily at bedtime. - tamsulosin (FLOMAX) 0.4 mg Take 0.4 mg by mouth once daily. - busPIRone (BUSPAR) 10 mg tablet Take 10 mg by mouth three times daily. - insulin glargine,hum.rec.anlog (LANTUS SUBCUTANEOUS) Inject subcutaneously. - metFORMIN ER (FORTAMET) 500 mg 24 hr tablet Take 500 mg by mouth daily with breakfast. - liraglutide (VICTOZA 3-AHSAN SUBCUTANEOUS) Inject subcutaneously. - insulin aspart (NOVOLOG FLEXPEN U-100 INSULIN SUBCUTANEOUS) Inject subcutaneously. Problem List As Of Date: 04/26/2023 (None) Prescriptions ordered this encounter Disp Refills Start End DOXYCYCLINE MONOHYDRATE 100 MG TABLET 14 t* 0 04/26/2023 05/03/2023 Route: ORAL Sig: Take 1 tablet by mouth two times a day for 7 days. Encounter Status:Closed by CALLY WEBB on (more content not included)... Normal [facility] Absolute lymphocyte countOrd ered By: Carlo Santana on 01-18-2023 Lymphocytes Auto (Unsp spec) [#/Vol] 1.37 10*3/uL 0.83-4.[address] [facility] Basophil percentageOrdered B y: Carlo Santana on 01-18-2023 Basophils/100 WBC (Bld) 0.3 % 0-1 [facility] Chloride [Moles/Vol] 101 mmol/L 98-107 [facility] Eosinophils/100 WBC (Bld) 1.9 % 0-[address] [facility] Glucose [Mass/Vol] 78 mg/dL 74-106 [facility] Neutrophils (Bld) [#/Vol] 6.5 10*3/uL 2.0-7.[address] [facility] Neutrophils/100 WBC (Bld) 73.4 % 47-[address] [facility] Potassium [Moles/Vol] 3.7 mmol/L 3.5-5.1 [facility] Sodium [Moles/Vol] 137 mmol/L 136-145 [facility] WBC (Bld) [#/Vol] 8.9 10*3/uL 4.4-11.0 [facility] Blood erythrocytes count (nu mber/volume)Ordered By: Carlo Santana on 01-18-2023 RBC (Bld) [#/Vol] 4.88 10*6/uL 4.6-6.2 [facility] Blood hemoglobin measurement (mass/volume)Ordered By: Carlo Santana on 01-18-2023 Hemoglobin (Bld) [Mass/Vol] 14.4 g/dL 13.0-16.[address] [facility] Blood lymphocytes/100 leukoc ytesOrdered By: Carlo Santana on 01-18-2023 Lymphocytes/100 WBC (Bld) 15.4 % 19-[address] [facility] Blood monocytes/100 leukocyt esOrdered By: Carlo Santana on 01-18-2023 Monocytes/100 WBC (Bld) 8.7 % 0-10 [facility] Blood platelet mean volumeOr dered By: Carlo Santana on 01-18-2023 Platelet mean volume (Bld) [Entitic vol] 9.9 fL 6.2-12.[address] [facility] Determination of erythrocyte mean corpuscular volume (MCV)Ordered By: Carlo Santana on 01-18-2023 MCV (RBC) [Entitic vol] 85.2 fL 80-94 [facility] Hematocrit Auto (Bld) [Volum e fraction]Ordered By: Carlo Santana on 01-18-2023 Hematocrit (Bld) [Volume fraction] 41.6 % 40-[address] [facility] - Chemistry and C hemistry - challengeOrdered By: Carlo Santana on 01-18-2023 CO2 [Moles/Vol] 31.0 mmol/L 21.0-32.[address] [facility] Natriuretic peptide B (Bld) [Mass/Vol] 53.7 pg/mL 0-[address] [facility] Urea nitrogen/Creatinine [Mass ratio] 17.6 mg/mg 10-[address] [facility] - Hematology and Cell countsOrdered By: Carlo Santana on 01-18-2023 Erythrocyte distribution width (RBC) [Entitic vol] 38.0 fL 35.1-43.[address] [facility] Erythrocyte distribution width (RBC) [Ratio] 12.4 % 11.6-14.[address] [facility] Immature granulocytes/100 WBC (Bld) 0.300 % 0.0-0.[address] [facility] Comment on above: IG% - Immature Granu locytes (promyelocytes, myelocytes and metamyelocytes) > 1% indicates that a LEFT SHIFT is Present. MCH (RBC) [Entitic mass] 29.5 pg 27.0-32.[address] [facility] Nucleated RBC/100 WBC (Bld) [Ratio] 0 % 0-[address] [facility] MCHC Auto (RBC) [Mass/Vol]Or dered By: Carlo Santana on 01-18-2023 MCHC (RBC) [Mass/Vol] 34.6 g/dL 32-36 [facility] No Panel InformationOrdered By: Carlo Santana on 01-18-2023 Estimated GFR (MDRD) Amer 61 mL/min >[address] [facility] Comment on above: GFR Calc Estimated GFR (MDRD) Non-Af Amer 50 mL/min >[address] [facility] Comment on above: Non- GFR Calc Troponin I High Sensitivity 44 pg/mL 3.0-78.[address] [facility] Comment on above: Please Note: New Denisha t Units and Gender Specific Reference Ranges. For more information see Policy Stat Procedure [place] High Sensitivity Troponin (TNIH) and attachments. Platelets bldOrdered By: Nitesh Santana on 01-18-2023 Platelets (Bld) [#/Vol] 186 10*3/uL 150-[address] [facility] Serum or plasma calcium lawson urement (mass/volume)Ordered By: Carlo Santana on 01-18-2023 Calcium [Mass/Vol] 9.1 mg/dL 8.5-10.1 [facility] Serum or plasma creatinine m easurement (mass/volume)Ordered By: Carlo Santana on 01-18-2023 Creatinine [Mass/Vol] 1.48 mg/dL 0.70-1.30 [facility] Comment on above: The validity of the calculated GFR & GFRAA in patients over 70 years has not been determined. Clinical correlation is essential. Serum or plasma urea nitroge n measurement (mass/volume)Ordered By: Carlo Santana on 01-18-2023 Urea nitrogen [Mass/Vol] 26 mg/dL 7-[address] [facility] Thin prep Papanicolaou smear with manual screeningOrdered By: Carlo Santana on 01-18-2023 Thin prep Papanicolaou smear with manual screening 5 5-[address] [facility] Absolute lymphocyte countOrd ered By: Dr. Mendoza on 08-23-2022 Lymphocytes Auto (Unsp spec) [#/Vol] 1.24 10*3/uL 0.83-4.[address] [facility] Basophil percentageOrdered B y: Dr. Mendoza on 08-23-2022 Basophil percentage 0 SEEN /hpf 0-5 [facility] Basophils/100 WBC (Bld) 0.3 % 0-1 [facility] Chloride [Moles/Vol] 101 mmol/L 98-107 [facility] Eosinophils/100 WBC (Bld) 1.2 % 0-[address] [facility] Glucose [Mass/Vol] 184 mg/dL 74-106 [facility] Comment on above: Fasting Glucose resu lt greater than or equal to 126 mg/dL suggests DIABETES MELLITUS per A.D.A. criteria. Neutrophils (Bld) [#/Vol] 5.3 10*3/uL 2.0-7.[address] [facility] Neutrophils/100 WBC (Bld) 72.2 % 47-[address] [facility] Potassium [Moles/Vol] 3.6 mmol/L 3.5-5.1 [facility] Sodium [Moles/Vol] 138 mmol/L 136-145 [facility] WBC (Bld) [#/Vol] 7.4 10*3/uL 4.4-11.0 [facility] Bilirubin Test strip Ql (U)O rdered By: Dr. Mendoza on 08-23-2022 Bilirubin Ql (U) Negative Negative [facility] Blood erythrocytes count (nu mber/volume)Ordered By: Dr. Mendoza on 08-23-2022 RBC (Bld) [#/Vol] 5.04 10*6/uL 4.6-6.2 [facility] Blood hemoglobin measurement (mass/volume)Ordered By: Dr. Mendoza on 08-23-2022 Hemoglobin (Bld) [Mass/Vol] 15.0 g/dL 13.0-16.[address] [facility] Blood lymphocytes/100 leukoc ytesOrdered By: Dr. Mendoza on 03-10-2023 Lymphocytes/100 WBC (Bld) 16.9 % 19-[address] [facility] Blood monocytes/100 leukocyt esOrdered By: Dr. Mendoza on 08-23-2022 Monocytes/100 WBC (Bld) 9.0 % 0-10 [facility] Blood platelet mean volumeOr dered By: Dr. Mendoza on 08-23-2022 Platelet mean volume (Bld) [Entitic vol] 10.0 fL 6.2-12.[address] [facility] Determination of erythrocyte mean corpuscular volume (MCV)Ordered By: Dr. Mendoza on 08-23-2022 MCV (RBC) [Entitic vol] 85.5 fL 80-94 [facility] Hematocrit Auto (Bld) [Volum e fraction]Ordered By: Dr. Mendoza on 08-23-2022 Hematocrit (Bld) [Volume fraction] 43.1 % 40-[address] [facility] Ketones Test strip Ql (U)Ord ered By: Dr. Mendoza on 08-23-2022 Ketones Ql (U) Negative Negative [facility] - Chemistry and C hemistry - challengeOrdered By: Dr. Mendoza on 08-23-2022 CO2 [Moles/Vol] 32.0 mmol/L 21.0-32.[address] [facility] Urea nitrogen/Creatinine [Mass ratio] 17.7 mg/mg 10-[address] [facility] - Hematology and Cell countsOrdered By: Dr. Mendoza on 08-23-2022 Erythrocyte distribution width (RBC) [Entitic vol] 37.9 fL 35.1-43.[address] [facility] Erythrocyte distribution width (RBC) [Ratio] 12.3 % 11.6-14.[address] [facility] Immature granulocytes/100 WBC (Bld) 0.400 % 0.0-0.[address] [facility] Comment on above: IG% - Immature Granu locytes (promyelocytes, myelocytes and metamyelocytes) > 1% indicates that a LEFT SHIFT is Present. MCH (RBC) [Entitic mass] 29.8 pg 27.0-32.[address] [facility] Nucleated RBC/100 WBC (Bld) [Ratio] 0 % 0-[address] [facility] MCHC Auto (RBC) [Mass/Vol]Or dered By: Dr. Mendoza on 08-23-2022 MCHC (RBC) [Mass/Vol] 34.8 g/dL 32-36 [facility] Mucus LM Ql (Urine sed)Order ed By: Dr. Mendoza on 08-23-2022 Mucus Ql (Urine sed) 0 SEEN /hpf [facility] Nitrite Test strip Ql (U)Ord ered By: Dr. Mendoza on 08-23-2022 Nitrite Ql (U) Negative Negative [facility] No Panel InformationOrdered By: Dr. Mendoza on 08-23-2022 Estimated Creatinine Clearance Calc 50.44 ml/min [facility] Estimated GFR (MDRD) Amer 71 mL/min >[address] [facility] Comment on above: GFR Calc Estimated GFR (MDRD) Non-Af Amer 59 mL/min >[address] [facility] Comment on above: Non- GFR Calc Platelets bldOrdered By: Dr. Mendoza on 08-23-2022 Platelets (Bld) [#/Vol] 190 10*3/uL 150-[address] [facility] Protein Test strip Ql (U)Ord ered By: Dr. Mendoza on 08-23-2022 Protein Ql (U) 30 mg/dl Negative [facility] Serum or plasma calcium lawson urement (mass/volume)Ordered By: Dr. Mendoza on 08-23-2022 Calcium [Mass/Vol] 9.1 mg/dL 8.5-10.1 [facility] Serum or plasma creatinine m easurement (mass/volume)Ordered By: Dr. Mendoza on 08-23-2022 Creatinine [Mass/Vol] 1.30 mg/dL 0.70-1.30 [facility] Comment on above: The validity of the calculated GFR & GFRAA in patients over 70 years has not been determined. Clinical correlation is essential. Serum or plasma urea nitroge n measurement (mass/volume)Ordered By: Dr. Mendoza on 08-23-2022 Urea nitrogen [Mass/Vol] 23 mg/dL 7-[address] [facility] Squamous epithelial cells de tection in urine sediment by light microscopyOrdered By: Dr. Mendoza on 08-23-2022 Epithelial cells.squamous LM Ql (Urine sed) 0 SEEN /hpf 0-[address] [facility] Thin prep Papanicolaou smear with manual screeningOrdered By: Dr. Mendoza on 08-23-2022 Thin prep Papanicolaou smear with manual screening 5 5-[address] [facility] Urine blood detectionOrdered By: Dr. Mendoza on 08-23-2022 RBC Ql (U) 10 /ul Negative [facility] RBC Ql (U) 0 SEEN /hpf 0-[address] [facility] Urine clarityOrdered By: Dr. Mendoza on 08-23-2022 Clarity (U) Clear Clear [facility] Urine color determinationOrd ered By: Dr. Mendoza on 08-23-2022 Color (U) Yellow Yellow [facility] Urine glucose detectionOrder ed By: Dr. Mendoza on 08-23-2022 Glucose Ql (U) Normal mg/dl Normal [facility] Urine leukocyte esterase det ection by dipstickOrdered By: Dr. Mendoza on 08-23-2022 Leukocyte esterase Test strip Ql (U) Negative Negative [facility] Urine pHOrdered By: Dr. Torie lyle on 08-23-2022 pH (U) 6.5 [pH] 5.0 - 8.[address] [facility] Urine sediment bacteria coun t by microscopy (number/high power field)Ordered By: Dr. Mendoza on 08-23-2022 Bacteria LM.HPF (Urine sed) [#/Area] 0 /[HPF] None Seen [facility] Urine specific gravity measu rementOrdered By: Dr. Mendoza on 08-23-2022 Specific gravity (U) [Rel density] 1.015 1.002-1.[address] [facility] Urobilinogen Auto test strip Ql (U)Ordered By: Dr. Mendoza on 08-23-2022 Urobilinogen Ql (U) 1 mg/dl Normal [facility] Absolute lymphocyte countOrd ered By: Dr. Gutierrez on 06-30-2022 Lymphocytes Auto (Unsp spec) [#/Vol] 1.19 10*3/uL 0.83-4.[address] [facility] Basophil percentageOrdered B y: Dr. Gutierrez on 06-30-2022 Basophils/100 WBC (Bld) 0.2 % 0-1 [facility] Chloride [Moles/Vol] 103 mmol/L 98-107 [facility] Eosinophils/100 WBC (Bld) 0.4 % 0-[address] [facility] Glucose [Mass/Vol] 106 mg/dL 74-106 [facility] Comment on above: Fasting Glucose resu lt from 100 to 125 mg/dL suggests IMPAIRED HOMEOSTASIS per A.D.A. criteria. Neutrophils (Bld) [#/Vol] 7.0 10*3/uL 2.0-7.[address] [facility] Neutrophils/100 WBC (Bld) 77.9 % 47-[address] [facility] Potassium [Moles/Vol] 4.4 mmol/L 3.5-5.1 [facility] Sodium [Moles/Vol] 138 mmol/L 136-145 [facility] WBC (Bld) [#/Vol] 9.1 10*3/uL 4.4-11.0 [facility] Blood erythrocytes count (nu mber/volume)Ordered By: Dr. Gutierrez on 06-30-2022 RBC (Bld) [#/Vol] 5.15 10*6/uL 4.6-6.2 [facility] Blood hemoglobin measurement (mass/volume)Ordered By: Dr. Gutierrez on 06-30-2022 Hemoglobin (Bld) [Mass/Vol] 15.0 g/dL 13.0-16.[address] [facility] Blood lymphocytes/100 leukoc ytesOrdered By: Dr. Gutierrez on 06-30-2022 Lymphocytes/100 WBC (Bld) 13.1 % 19-[address] [facility] Blood monocytes/100 leukocyt esOrdered By: Dr. Gutierrez on 06-30-2022 Monocytes/100 WBC (Bld) 8.2 % 0-10 [facility] Blood platelet mean volumeOr dered By: Dr. Gutierrez on 06-30-2022 Platelet mean volume (Bld) [Entitic vol] 10.1 fL 6.2-12.[address] [facility] Determination of erythrocyte mean corpuscular volume (MCV)Ordered By: Dr. Gutierrez on 06-30-2022 MCV (RBC) [Entitic vol] 85.6 fL 80-94 [facility] Glucose Glucometer (BldC) [M ass/Vol]Ordered By: Dr. Gutierrez on 06-30-2022 Glucose [Mass/Vol] 276 mg/dL 74-106 [facility] Comment on above: MANAGEMENT OF PATIEN T CARE PER NURSING PROTOCOL Hematocrit Auto (Bld) [Volum e fraction]Ordered By: Dr. Gutierrez on 06-30-2022 Hematocrit (Bld) [Volume fraction] 44.1 % 40-[address] [facility] Laboratory - Chemistry and C hemistry - challengeOrdered By: Dr. Gutierrez on 06-30-2022 CO2 [Moles/Vol] 28.0 mmol/L 21.0-32.[address] [facility] Urea nitrogen/Creatinine [Mass ratio] 22.4 mg/mg 10-[address] [facility] Laboratory - Hematology and Cell countsOrdered By: Dr. Gutierrez on 06-30-2022 Erythrocyte distribution width (RBC) [Entitic vol] 39.2 fL 35.1-43.[address] [facility] Erythrocyte distribution width (RBC) [Ratio] 12.6 % 11.6-14.[address] [facility] Immature granulocytes/100 WBC (Bld) 0.200 % 0.0-0.[address] [facility] Comment on above: IG% - Immature Granu locytes (promyelocytes, myelocytes and metamyelocytes) > 1% indicates that a LEFT SHIFT is Present. MCH (RBC) [Entitic mass] 29.1 pg 27.0-32.[address] [facility] Nucleated RBC/100 WBC (Bld) [Ratio] 0 % 0-[address] [facility] MCHC Auto (RBC) [Mass/Vol]Or dered By: Dr. Gutierrez on 06-30-2022 MCHC (RBC) [Mass/Vol] 34.0 g/dL 32-36 [facility] No Panel InformationOrdered By: Dr. Gutierrez on 06-30-2022 Estimated Creatinine Clearance Calc 40.73 ml/min [facility] Estimated GFR (MDRD) Amer 55 mL/min >[address] [facility] Comment on above: GFR Calc Estimated GFR (MDRD) Non-Af Amer 46 mL/min >[address] [facility] Comment on above: Non- GFR Calc Platelets bldOrdered By: Dr. Gutierrez on 06-30-2022 Platelets (Bld) [#/Vol] 200 10*3/uL 150-[address] [facility] Serum or plasma calcium lawson urement (mass/volume)Ordered By: Dr. Guiterrez on 06-30-2022 Calcium [Mass/Vol] 9.4 mg/dL 8.5-10.1 [facility] Serum or plasma creatinine m easurement (mass/volume)Ordered By: Dr. Gutierrez on 06-30-2022 Creatinine [Mass/Vol] 1.61 mg/dL 0.70-1.30 [facility] Comment on above: The validity of the calculated GFR & GFRAA in patients over 70 years has not been determined. Clinical correlation is essential. Serum or plasma urea nitroge n measurement (mass/volume)Ordered By: Dr. Gutierrez on 06-30-2022 Urea nitrogen [Mass/Vol] 36 mg/dL 7-[address] [facility] Thin prep Papanicolaou smear with manual screeningOrdered By: Dr. Gutierrez on 06-30-2022 Thin prep Papanicolaou smear with manual screening 7 -[address] [facility] Basophil percentageOrdered B y: Dr. Gutierrez on 06-29-2022 Basophil percentage 2.7 mg/dL 2.5-4.9 [facility] Cholesterol [Mass/Vol] 158 mg/dL <200 [facility] Comment on above: <200 mg/dL Desirable 200-240 mg/dL Borderline >240 mg/dL High Risk Triglyceride [Mass/Vol] 174 mg/dL <199 [facility] Comment on above: The drugs N-Acetylcy steine and Metamizole may falsely depress this assay.Serum Triglycerides Reference Interval Normal <150 mg/dL Borderline high 150 - 199 mg/dL High 200 - 499 mg/dL Very High > or = 500 mg/dL Laboratory - Chemistry and C hemistry - challengeOrdered By: Dr. Gutierrez on 06-29-2022 Magnesium [Mass/Vol] 1.8 mg/dL 1.6-2.6 [facility] Serum or plasma cholesterol in HDL measurement (mass/volume)Ordered By: Dr. Gutierrez on 06-29-2022 Cholesterol in HDL [Mass/Vol] 46 mg/dL >[address] [facility] Comment on above: The drugs N-Acetylcy steine and Metamizole may falsely depress this assay. Reference Range HDL <40 mg/dL Low HDL Cholesterol HDL >or= 60 mg/dL High HDL Cholesterol Serum or plasma cholesterol in VLDL measurement (mass/volume)Ordered By: Dr. Gutierrez on 06-29-2022 Cholesterol in VLDL [Mass/Vol] 35 mg/dL 5-[address] [facility] Serum or plasma low density lipoprotein (LDL) cholesterol measurement (mass/volume)Ordered By: Dr. Gutierrez on 06-29-2022 Cholesterol in LDL [Mass/Vol] 77 mg/dL 0-[address] [facility] Absolute lymphocyte counton 06-28-2022 Lymphocytes Auto (Unsp spec) [#/Vol] 1.65 10*3/uL 0.83-4.[address] [facility] Work Phone: Basophil percentageon 2022 Basophils/100 WBC (Bld) 0.3 % 0-1 [facility] Work Phone: Chloride [Moles/Vol] 100 mmol/L 98-107 [facility] Work Phone: Eosinophils/100 WBC (Bld) 1.8 % 0-[address] [facility] Work Phone: Glucose [Mass/Vol] 92 mg/dL 74-106 [facility] Work Phone: Neutrophils (Bld) [#/Vol] 3.5 10*3/uL 2.0-7.[address] [facility] Work Phone: Neutrophils/100 WBC (Bld) 58.3 % 47-[address] [facility] Work Phone: Potassium [Moles/Vol] 3.3 mmol/L 3.5-5.1 [facility] Work Phone: Sodium [Moles/Vol] 137 mmol/L 136-145 [facility] Work Phone: WBC (Bld) [#/Vol] 6.0 10*3/uL 4.4-11.0 [facility] Work Phone: Blood erythrocytes count (nu mber/volume)on 06-28-2022 RBC (Bld) [#/Vol] 4.24 10*6/uL 4.6-6.2 [facility] Work Phone: Blood hemoglobin measurement (mass/volume)on 06-28-2022 Hemoglobin (Bld) [Mass/Vol] 12.4 g/dL 13.0-16.[address] [facility] Work Phone: Blood lymphocytes/100 leukoc yteson 06-28-2022 Lymphocytes/100 WBC (Bld) 27.3 % 19-[address] [facility] Work Phone: Blood monocytes/100 leukocyt eson 06-28-2022 Monocytes/100 WBC (Bld) 11.6 % 0-10 [facility] Work Phone: Blood platelet mean volumeon 06-28-2022 Platelet mean volume (Bld) [Entitic vol] 10.0 fL 6.2-12.[address] [facility] Work Phone: Determination of erythrocyte mean corpuscular volume (MCV)on 06-28-2022 MCV (RBC) [Entitic vol] 86.3 fL 80-94 [facility] Work Phone: Hematocrit Auto (Bld) [Volum e fraction]on 06-28-2022 Hematocrit (Bld) [Volume fraction] 36.6 % 40-[address] [facility] Work Phone: INR in Blood by Coagulation assayOrdered By: Dr. Santana on 06-28-2022 INR Coag (Bld) [Relative time] 1.1 {INR} [facility] Laboratory - Chemistry and C hemistry - challengeon 06-28-2022 CO2 [Moles/Vol] 32.0 mmol/L 21.0-32.[address] [facility] Work Phone: Urea nitrogen/Creatinine [Mass ratio] 17.4 mg/mg 10-[address] [facility] Work Phone: [phone] Laboratory - CoagulationOrde red By: Dr. Santana on 06-28-2022 aPTT Coag (Bld) [Time] 22.7 s 24.1-36.2 [facility] PT Coag (PPP) [Time] 13.5 s 11.7-14.9 [facility] Laboratory - Hematology and Cell countson 06-28-2022 Erythrocyte distribution width (RBC) [Entitic vol] 39.4 fL 35.1-43.[address] [facility] Work Phone: [phone] Erythrocyte distribution width (RBC) [Ratio] 12.5 % 11.6-14.[address] [facility] Work Phone: [phone] Immature granulocytes/100 WBC (Bld) 0.700 % 0.0-0.[address] [facility] Work Phone: [phone] Comment on above: IG% - Immature Granu locytes (promyelocytes, myelocytes and metamyelocytes) > 1% indicates that a LEFT SHIFT is Present. MCH (RBC) [Entitic mass] 29.2 pg 27.0-32.[address] [facility] Work Phone: [phone] Nucleated RBC/100 WBC (Bld) [Ratio] 0 % 0-[address] [facility] Work Phone: [phone] MCHC Auto (RBC) [Mass/Vol]on 06-28-2022 MCHC (RBC) [Mass/Vol] 33.9 g/dL 32-36 [facility] Work Phone: [phone] No Panel InformationOrdered By: Dr. Gutierrez on 06-28-2022 Troponin I High Sensitivity 43 pg/mL 3.0-78.[address] [facility] Comment on above: Please Note: New Denisha t Units and Gender Specific Reference Ranges. For more information see Policy Stat Procedure [place] High Sensitivity Troponin (TNIH) and attachments. No Panel Informationon 06-28 Estimated Creatinine Clearance Calc 71.27 ml/min [facility] Work Phone: [phone] Estimated GFR (MDRD) Amer 106 mL/min >[address] [facility] Work Phone: [phone] Comment on above: GFR Calc Estimated GFR (MDRD) Non-Af Amer 87 mL/min >[address] [facility] Work Phone: [phone] Comment on above: Non- GFR Calc Troponin I High Sensitivity 36 pg/mL 3.0-78.[address] [facility] Work Phone: Comment on above: Please Note: New Denisha t Units and Gender Specific Reference Ranges. For more information see Policy Stat Procedure [place] High Sensitivity Troponin (TNIH) and attachments. Platelets bldon 06-28-2022 Platelets (Bld) [#/Vol] 165 10*3/uL 150-[address] [facility] Work Phone: Serum or plasma calcium lawson urement (mass/volume)on 06-28-2022 Calcium [Mass/Vol] 7.9 mg/dL 8.5-10.1 [facility] Work Phone: Serum or plasma creatinine m easurement (mass/volume)on 06-28-2022 Creatinine [Mass/Vol] 0.92 mg/dL 0.70-1.30 [facility] Work Phone: Comment on above: The validity of the calculated GFR & GFRAA in patients over 70 years has not been determined. Clinical correlation is essential. Serum or plasma urea nitroge n measurement (mass/volume)on 06-28-2022 Urea nitrogen [Mass/Vol] 16 mg/dL 7-[address] [facility] Work Phone: Thin prep Papanicolaou smear with manual screeningon 06-28-2022 Thin prep Papanicolaou smear with manual screening 5 5-[address] [facility] Work Phone: Absolute lymphocyte countOrd ered By: Dr. Walls on 06-02-2022 Lymphocytes Auto (Unsp spec) [#/Vol] 1.63 10*3/uL 0.83-4.[address] [facility] Basophil percentageOrdered B y: Dr. Walls on 06-02-2022 Basophils/100 WBC (Bld) 0.5 % 0-1 [facility] Chloride [Moles/Vol] 102 mmol/L 98-107 [facility] Eosinophils/100 WBC (Bld) 2.2 % 0-[address] [facility] Glucose [Mass/Vol] 210 mg/dL 74-106 [facility] Comment on above: Glucose result great er than or equal to 200 mg/dLsuggests DIABETES MELLITUS per A.D.A. criteria. Neutrophils (Bld) [#/Vol] 3.5 10*3/uL 2.0-7.[address] [facility] Neutrophils/100 WBC (Bld) 59.1 % 47-[address] [facility] Potassium [Moles/Vol] 3.1 mmol/L 3.5-5.1 [facility] Sodium [Moles/Vol] 136 mmol/L 136-145 [facility] WBC (Bld) [#/Vol] 5.9 10*3/uL 4.4-11.0 [facility] Blood erythrocytes count (nu mber/volume)Ordered By: Dr. Walls on 06-02-2022 RBC (Bld) [#/Vol] 4.70 10*6/uL 4.6-6.2 [facility] Blood hemoglobin measurement (mass/volume)Ordered By: Dr. Walls on 06-02-2022 Hemoglobin (Bld) [Mass/Vol] 13.5 g/dL 13.0-16.[address] [facility] Blood lymphocytes/100 leukoc ytesOrdered By: Dr. Walls on 06-02-2022 Lymphocytes/100 WBC (Bld) 27.9 % 19-[address] [facility] Blood monocytes/100 leukocyt esOrdered By: Dr. Walls on 06-02-2022 Monocytes/100 WBC (Bld) 10.1 % 0-10 [facility] Blood platelet mean volumeOr dered By: Dr. Walls on 06-02-2022 Platelet mean volume (Bld) [Entitic vol] 10.1 fL 6.2-12.[address] [facility] Determination of erythrocyte mean corpuscular volume (MCV)Ordered By: Dr. Walls on 06-02-2022 MCV (RBC) [Entitic vol] 83.8 fL 80-94 [facility] Glucose Glucometer (BldC) [M ass/Vol]Ordered By: Dr. Gutierrez on 06-02-2022 Glucose [Mass/Vol] 408 mg/dL 74-106 [facility] Comment on above: MANAGEMENT OF PATIEN T CARE PER NURSING PROTOCOL Hematocrit Auto (Bld) [Volum e fraction]Ordered By: Dr. Walls on 06-02-2022 Hematocrit (Bld) [Volume fraction] 39.4 % 40-[address] [facility] Laboratory - Chemistry and C hemistry - challengeOrdered By: Dr. Walls on 06-02-2022 CO2 [Moles/Vol] 28.0 mmol/L 21.0-32.[address] [facility] Urea nitrogen/Creatinine [Mass ratio] 17.9 mg/mg 10-[address] [facility] Laboratory - Hematology and Cell countsOrdered By: Dr. Walls on 06-02-2022 Erythrocyte distribution width (RBC) [Entitic vol] 36.2 fL 35.1-43.[address] [facility] Erythrocyte distribution width (RBC) [Ratio] 12.0 % 11.6-14.[address] [facility] Immature granulocytes/100 WBC (Bld) 0.200 % 0.0-0.[address] [facility] Comment on above: IG% - Immature Granu locytes (promyelocytes, myelocytes and metamyelocytes) > 1% indicates that a LEFT SHIFT is Present. MCH (RBC) [Entitic mass] 28.7 pg 27.0-32.[address] [facility] Nucleated RBC/100 WBC (Bld) [Ratio] 0 % 0-[address] [facility] MCHC Auto (RBC) [Mass/Vol]Or dered By: Dr. Walls on 06-02-2022 MCHC (RBC) [Mass/Vol] 34.3 g/dL 32-36 [facility] No Panel InformationOrdered By: Dr. Walls on 06-02-2022 Estimated Creatinine Clearance Calc 78.06 ml/min [facility] Estimated GFR (MDRD) Amer 118 mL/min >[address] [facility] Comment on above: GFR Calc Estimated GFR (MDRD) Non-Af Amer 97 mL/min >[address] [facility] Comment on above: Non- GFR Calc Platelets bldOrdered By: Dr. Walls on 06-02-2022 Platelets (Bld) [#/Vol] 164 10*3/uL 150-[address] [facility] Serum or plasma calcium lawson urement (mass/volume)Ordered By: Dr. Walls on 06-02-2022 Calcium [Mass/Vol] 8.4 mg/dL 8.5-10.1 [facility] Serum or plasma creatinine m easurement (mass/volume)Ordered By: Dr. Walls on 06-02-2022 Creatinine [Mass/Vol] 0.84 mg/dL 0.70-1.30 [facility] Comment on above: The validity of the calculated GFR & GFRAA in patients over 70 years has not been determined. Clinical correlation is essential. Serum or plasma urea nitroge n measurement (mass/volume)Ordered By: Dr. Walls on 06-02-2022 Urea nitrogen [Mass/Vol] 15 mg/dL 12-[address] [facility] Thin prep Papanicolaou smear with manual screeningOrdered By: Dr. Walls on 06-02-2022 Thin prep Papanicolaou smear with manual screening 6 10-[address] [facility] Absolute lymphocyte counton 06-01-2022 Lymphocytes Auto (Unsp spec) [#/Vol] 0.92 10*3/uL 0.83-4.[address] [facility] Work Phone: Basophil percentageon 2021 Basophils/100 WBC (Bld) 0.7 % 0-1 [facility] Work Phone: Chloride [Moles/Vol] 97 mmol/L 98-107 [facility] Work Phone: Eosinophils/100 WBC (Bld) 1.2 % 0-[address] [facility] Work Phone: Glucose [Mass/Vol] 426 mg/dL 74-106 [facility] Work Phone: Comment on above: Glucose result great er than or equal to 200 mg/dLsuggests DIABETES MELLITUS per A.D.A. criteria. Neutrophils (Bld) [#/Vol] 4.4 10*3/uL 2.0-7.[address] [facility] Work Phone: Neutrophils/100 WBC (Bld) 75.2 % 47-[address] [facility] Work Phone: Potassium [Moles/Vol] 3.9 mmol/L 3.5-5.1 [facility] Work Phone: Sodium [Moles/Vol] 133 mmol/L 136-145 [facility] Work Phone: WBC (Bld) [#/Vol] 5.9 10*3/uL 4.4-11.0 [facility] Work Phone: Basophil percentageOrdered B y: Dr. Santana on 06-01-2022 Bilirubin [Mass/Vol] 0.70 mg/dL 0.20-1.00 [facility] Comment on above: For patients on eltr ombopag therapy, use of Dimension [place] TBIL is not recommended. Protein [Mass/Vol] 8.1 g/dL 6.4-8.2 [facility] Blood erythrocytes count (nu mber/volume)on 06-01-2022 RBC (Bld) [#/Vol] 5.35 10*6/uL 4.6-6.2 [facility] Work Phone: Blood hemoglobin measurement (mass/volume)on 06-01-2022 Hemoglobin (Bld) [Mass/Vol] 15.3 g/dL 13.0-16.[address] [facility] Work Phone: Blood lymphocytes/100 leukoc yteson 06-01-2022 Lymphocytes/100 WBC (Bld) 15.6 % 19-[address] [facility] Work Phone: Blood monocytes/100 leukocyt eson 06-01-2022 Monocytes/100 WBC (Bld) 7.0 % 0-10 [facility] Work Phone: Blood platelet mean volumeon 06-01-2022 Platelet mean volume (Bld) [Entitic vol] 10.2 fL 6.2-12.[address] [facility] Work Phone: Determination of erythrocyte mean corpuscular volume (MCV)on 06-01-2022 MCV (RBC) [Entitic vol] 84.1 fL 80-94 [facility] Work Phone: Glucose Glucometer (BldC) [M ass/Vol]on 06-01-2022 Glucose [Mass/Vol] 372 mg/dL 74-106 [facility] Work Phone: Comment on above: MANAGEMENT OF PATIEN T CARE PER NURSING PROTOCOL Hematocrit Auto (Bld) [Volum e fraction]on 06-01-2022 Hematocrit (Bld) [Volume fraction] 45.0 % 40-[address] [facility] Work Phone: Laboratory - Chemistry and C hemistry - challengeOrdered By: Dr. Santana on 06-01-2022 ALP [Catalytic activity/Vol] 112 U/L 45-[address] [facility] ALT [Catalytic activity/Vol] 40 U/L 16-[address] [facility] Globulin (S) [Mass/Vol] 4.3 g/dL 2.2-4.2 [facility] Laboratory - Chemistry and C hemistry - challengeon 06-01-2022 CO2 [Moles/Vol] 30.0 mmol/L 21.0-32.[address] [facility] Work Phone: Urea nitrogen/Creatinine [Mass ratio] 13.1 mg/mg 10-[address] [facility] Work Phone: Laboratory - Hematology and Cell countson 06-01-2022 Erythrocyte distribution width (RBC) [Entitic vol] 36.8 fL 35.1-43.[address] [facility] Work Phone: Erythrocyte distribution width (RBC) [Ratio] 12.2 % 11.6-14.[address] [facility] Work Phone: [phone] Immature granulocytes/100 WBC (Bld) 0.300 % 0.0-0.[address] [facility] Work Phone: Comment on above: IG% - Immature Granu locytes (promyelocytes, myelocytes and metamyelocytes) > 1% indicates that a LEFT SHIFT is Present. MCH (RBC) [Entitic mass] 28.6 pg 27.0-32.[address] [facility] Work Phone: Nucleated RBC/100 WBC (Bld) [Ratio] 0 % 0-[address] [facility] Work Phone: [phone] MCHC Auto (RBC) [Mass/Vol]on 06-01-2022 MCHC (RBC) [Mass/Vol] 34.0 g/dL 32-36 [facility] Work Phone: No Panel Informationon 06-01 Estimated Creatinine Clearance Calc 47.86 ml/min [facility] Work Phone: Estimated GFR (MDRD) Amer 67 mL/min >[address] [facility] Work Phone: Comment on above: GFR Calc Estimated GFR (MDRD) Non-Af Amer 55 mL/min >[address] [facility] Work Phone: Comment on above: Non- GFR Calc No Panel InformationOrdered By: Dr. Santana on 06-01-2022 Troponin I High Sensitivity 44 pg/mL 3.0-78.[address] [facility] Comment on above: Please Note: New Denisha t Units and Gender Specific Reference Ranges. For more information see Policy Stat Procedure [place] High Sensitivity Troponin (TNIH) and attachments. Platelets bldon 06-01-2022 Platelets (Bld) [#/Vol] 189 10*3/uL 150-[address] [facility] Work Phone: Serum or plasma albumin lawson urement (mass/volume)Ordered By: Dr. Santana on 06-01-2022 Albumin [Mass/Vol] 3.8 g/dL 3.2-5.0 [facility] Serum or plasma albumin/glob ulin mass ratioOrdered By: Dr. Santana on 06-01-2022 Albumin/Globulin [Mass ratio] 0.9 {ratio} 0.9-2.[address] [facility] Serum or plasma calcium lawson urement (mass/volume)on 06-01-2022 Calcium [Mass/Vol] 9.3 mg/dL 8.5-10.1 [facility] Work Phone: Serum or plasma creatinine m easurement (mass/volume)on 06-01-2022 Creatinine [Mass/Vol] 1.37 mg/dL 0.70-1.30 [facility] Work Phone: Comment on above: The validity of the calculated GFR & GFRAA in patients over 70 years has not been determined. Clinical correlation is essential. Serum or plasma urea nitroge n measurement (mass/volume)on 06-01-2022 Urea nitrogen [Mass/Vol] 18 mg/dL 7-[address] [facility] Work Phone: Thin prep Papanicolaou smear with manual screeningOrdered By: Dr. Santana on 06-01-2022 Thin prep Papanicolaou smear with manual screening 16 U/L 15-[address] [facility] Thin prep Papanicolaou smear with manual screeningon 06-01-2022 Thin prep Papanicolaou smear with manual screening 6 5-[address] [facility] Work Phone: Absolute lymphocyte countOrd ered By: Dr. Dinero on 05-07-2022 Lymphocytes Auto (Unsp spec) [#/Vol] 1.73 10*3/uL 0.83-4.[address] [facility] Basophil percentageOrdered B y: Dr. Dinero on 05-07-2022 Basophils/100 WBC (Bld) 0.3 % 0-1 [facility] Chloride [Moles/Vol] 101 mmol/L 98-107 [facility] [facility] Eosinophils/100 WBC (Bld) 1.5 % 0-[address] [facility] Glucose [Mass/Vol] 252 mg/dL 74-106 [facility] Comment on above: Glucose result great er than or equal to 200 mg/dLsuggests DIABETES MELLITUS per A.D.A. criteria. Neutrophils (Bld) [#/Vol] 6.1 10*3/uL 2.0-7.[address] [facility] Neutrophils/100 WBC (Bld) 69.8 % 47-[address] [facility] Potassium [Moles/Vol] 4.0 mmol/L 3.5-5.1 [facility] Sodium [Moles/Vol] 136 mmol/L 136-145 [facility] WBC (Bld) [#/Vol] 8.7 10*3/uL 4.4-11.0 [facility] Blood erythrocytes count (nu mber/volume)Ordered By: Dr. Dinero on 05-07-2022 RBC (Bld) [#/Vol] 4.99 10*6/uL 4.6-6.2 [facility] Blood hemoglobin measurement (mass/volume)Ordered By: Dr. Dinero on 05-07-2022 Hemoglobin (Bld) [Mass/Vol] 14.9 g/dL 13.0-16.[address] [facility] Blood lymphocytes/100 leukoc ytesOrdered By: Dr. Dinero on 05-07-2022 Lymphocytes/100 WBC (Bld) 19.9 % 19-[address] [facility] Blood monocytes/100 leukocyt esOrdered By: Dr. Dinero on 05-07-2022 Monocytes/100 WBC (Bld) 8.3 % 0-10 [facility] Blood platelet mean volumeOr dered By: Dr. Dinero on 05-07-2022 Platelet mean volume (Bld) [Entitic vol] 10.2 fL 6.2-12.[address] [facility] Determination of erythrocyte mean corpuscular volume (MCV)Ordered By: Dr. Dinero on 05-07-2022 MCV (RBC) [Entitic vol] 81.6 fL 80-94 [facility] Hematocrit Auto (Bld) [Volum e fraction]Ordered By: Dr. Dinero on 05-07-2022 Hematocrit (Bld) [Volume fraction] 40.7 % 40-[address] [facility] Laboratory - Chemistry and C hemistry - challengeOrdered By: Dr. Dinero on 05-07-2022 CO2 [Moles/Vol] 27.0 mmol/L 21.0-32.[address] [facility] Urea nitrogen/Creatinine [Mass ratio] 19.6 mg/mg 10-[address] [facility] Laboratory - Hematology and Cell countsOrdered By: Dr. Dinero on 05-07-2022 Erythrocyte distribution width (RBC) [Entitic vol] 35.1 fL 35.1-43.[address] [facility] Erythrocyte distribution width (RBC) [Ratio] 11.9 % 11.6-14.[address] [facility] Immature granulocytes/100 WBC (Bld) 0.200 % 0.0-0.[address] [facility] Comment on above: IG% - Immature Granu locytes (promyelocytes, myelocytes and metamyelocytes) > 1% indicates that a LEFT SHIFT is Present. MCH (RBC) [Entitic mass] 29.9 pg 27.0-32.[address] [facility] Nucleated RBC/100 WBC (Bld) [Ratio] 0 % 0-[address] [facility] MCHC Auto (RBC) [Mass/Vol]Or dered By: Dr. Dinero on 05-07-2022 MCHC (RBC) [Mass/Vol] 36.6 g/dL 32-36 [facility] No Panel InformationOrdered By: Dr. Dinero on 05-07-2022 Estimated Creatinine Clearance Calc 40.23 ml/min [facility] Estimated GFR (MDRD) Amer 55 mL/min >[address] [facility] Comment on above: GFR Calc Estimated GFR (MDRD) Non-Af Amer 45 mL/min >[address] [facility] Comment on above: Non- GFR Calc Platelets bldOrdered By: Dr. Dinero on 05-07-2022 Platelets (Bld) [#/Vol] 234 10*3/uL 150-[address] [facility] Serum or plasma calcium lawson urement (mass/volume)Ordered By: Dr. Dinero on 05-07-2022 Calcium [Mass/Vol] 9.4 mg/dL 8.5-10.1 [facility] Serum or plasma creatinine m easurement (mass/volume)Ordered By: Dr. Dinero on 05-07-2022 Creatinine [Mass/Vol] 1.63 mg/dL 0.70-1.30 [facility] Comment on above: The validity of the calculated GFR & GFRAA in patients over 70 years has not been determined. Clinical correlation is essential. Serum or plasma urea nitroge n measurement (mass/volume)Ordered By: Dr. Dinero on 05-07-2022 Urea nitrogen [Mass/Vol] 32 mg/dL 7-[address] [facility] Thin prep Papanicolaou smear with manual screeningOrdered By: Dr. Dinero on 05-07-2022 Thin prep Papanicolaou smear with manual screening 8 5-[address] [facility] Glucose Glucometer (BldC) [M ass/Vol]on 04-17-2022 Glucose [Mass/Vol] 92 mg/dL 74-106 [facility] Work Phone: Comment on above: MANAGEMENT OF PATIEN T CARE PER NURSING PROTOCOL Basophil percentageon 2021 Chloride [Moles/Vol] 104 mmol/L 98-107 [facility] Work Phone: Glucose [Mass/Vol] 164 mg/dL 74-106 [facility] Work Phone: Comment on above: Fasting Glucose resu lt greater than or equal to 126 mg/dL suggests DIABETES MELLITUS per A.D.A. criteria. Potassium [Moles/Vol] 3.9 mmol/L 3.5-5.1 [facility] Work Phone: Sodium [Moles/Vol] 138 mmol/L 136-145 [facility] Work Phone: Laboratory - Chemistry and C hemistry - challengeon 04-15-2022 CO2 [Moles/Vol] 30.0 mmol/L 21.0-32.[address] [facility] Work Phone: Magnesium [Mass/Vol] 1.9 mg/dL 1.6-2.6 [facility] Work Phone: [phone] Urea nitrogen/Creatinine [Mass ratio] 20.5 mg/mg 10- [facility] Work Phone: No Panel Informationon 04-15 Estimated Creatinine Clearance Calc 53.75 ml/min [facility] Work Phone: Estimated GFR (MDRD) Amer 76 mL/min >[address] [facility] Work Phone: Comment on above: GFR Calc Estimated GFR (MDRD) Non-Af Amer 63 mL/min >[address] [facility] Work Phone: Comment on above: Non- GFR Calc Serum or plasma calcium lawson urement (mass/volume)on 04-15-2022 Calcium [Mass/Vol] 8.7 mg/dL 8.5-10.1 [facility] Work Phone: Serum or plasma creatinine m easurement (mass/volume)on 04-15-2022 Creatinine [Mass/Vol] 1.22 mg/dL 0.70-1.30 [facility] Work Phone: Comment on above: The validity of the calculated GFR & GFRAA in patients over 70 years has not been determined. Clinical correlation is essential. Serum or plasma urea nitroge n measurement (mass/volume)on 04-15-2022 Urea nitrogen [Mass/Vol] 25 mg/dL 7-[address] [facility] Work Phone: Thin prep Papanicolaou smear with manual screeningon 04-15-2022 Thin prep Papanicolaou smear with manual screening 4 5-[address] [facility] Work Phone: Basophil percentageon 2021 Basophil percentage 0 SEEN /hpf 0-5 [facility] Work Phone: Bilirubin Test strip Ql (U)o n 04-10-2022 Bilirubin Ql (U) Negative Negative [facility] Work Phone: Ketones Test strip Ql (U)on 04-10-2022 Ketones Ql (U) Negative Negative [facility] Work Phone: Mucus LM Ql (Urine sed)on Mucus Ql (Urine sed) 0 SEEN /hpf [facility] Work Phone: Nitrite Test strip Ql (U)on 04-10-2022 Nitrite Ql (U) Negative Negative [facility] Work Phone: Protein Test strip Ql (U)on 04-10-2022 Protein Ql (U) 15 mg/dl Negative [facility] Work Phone: Squamous epithelial cells de tection in urine sediment by light microscopyon 04-10-2022 Epithelial cells.squamous LM Ql (Urine sed) 0 SEEN /hpf 0-[address] [facility] Work Phone: Urine blood detectionon 03-17 RBC Ql (U) Negative Negative [facility] Work Phone: RBC Ql (U) 0 SEEN /hpf 0-[address] [facility] Work Phone: Urine clarityon 04-10-2022 Clarity (U) Clear Clear [facility] Work Phone: Urine color determinationon 04-10-2022 Color (U) Yellow Yellow [facility] Work Phone: Urine glucose detectionon Glucose Ql (U) 50 mg/dl Normal [facility] Work Phone: Urine leukocyte esterase det ection by dipstickon 04-10-2022 Leukocyte esterase Test strip Ql (U) Negative Negative [facility] Work Phone: [phone] Urine pHon 04-10-2022 pH (U) 7.0 [pH] 5.0 - 8.[address] [facility] Work Phone: Urine sediment bacteria coun t by microscopy (number/high power field)on 04-10-2022 Bacteria LM.HPF (Urine sed) [#/Area] 0 /[HPF] None Seen [facility] Work Phone: [phone] Urine specific gravity measu rementon 04-10-2022 Specific gravity (U) [Rel density] 1.010 1.002-1.[address] [facility] Work Phone: [phone] Urobilinogen Auto test strip Ql (U)on 04-10-2022 Urobilinogen Ql (U) Normal mg/dl Normal [facility] Work Phone: Basophil percentageon 2021 Bilirubin [Mass/Vol] 0.30 mg/dL 0.20-1.00 [facility] Work Phone: [phone] Comment on above: For patients on eltr ombopag therapy, use of Dimension [place] TBIL is not recommended. Protein [Mass/Vol] 7.2 g/dL 6.4-8.2 [facility] Work Phone: [phone] Blood hemoglobin measurement (mass/volume)on 04-09-2022 Hemoglobin (Bld) [Mass/Vol] 13.6 g/dL 13.0-16.[address] [facility] Work Phone: [phone] Hematocrit Auto (Bld) [Volum e fraction]on 04-09-2022 Hematocrit (Bld) [Volume fraction] 39.8 % 40-[address] [facility] Work Phone: [phone] Laboratory - Chemistry and C hemistry - challengeon 04-09-2022 ALP [Catalytic activity/Vol] 153 U/L 45-[address] [facility] Work Phone: [phone] ALT [Catalytic activity/Vol] 53 U/L 16-[address] [facility] Work Phone: Globulin (S) [Mass/Vol] 3.9 g/dL 2.2-4.2 [facility] Work Phone: [phone] Serum or plasma albumin lawson urement (mass/volume)on 04-09-2022 Albumin [Mass/Vol] 3.3 g/dL 3.2-5.0 [facility] Work Phone: Serum or plasma albumin/glob ulin mass ratioon 04-09-2022 Albumin/Globulin [Mass ratio] 0.8 {ratio} 0.9-2.[address] [facility] Work Phone: Thin prep Papanicolaou smear with manual screeningon 04-09-2022 Thin prep Papanicolaou smear with manual screening 37 U/L 15-[address] [facility] Work Phone: Laboratory - Chemistry and C hemistry - challengeon 03-30-2022 Free T4 [Mass/Vol] 0.96 ng/dL 0.76-1.46 [facility] Work Phone: Natriuretic peptide B (Bld) [Mass/Vol] 82.5 pg/mL 0-[address] [facility] Work Phone: No Panel Informationon 03-30 Thyroid Stimulating Hormone (TSH) 5.79 uIU/mL 0.358-3.[address] [facility] Work Phone: [phone] Whole blood hemoglobin A1c/t otal hemoglobin ratio (mass fraction)on 03-30-2022 HbA1c (Bld) [Mass fraction] 7.7 % 3.8-5.[address] [facility] Work Phone: Comment on above: Normal < 5.7 % Predi abetic 5.7 - 6.4 % Diabetic >or= 6.5 % Please note range changes. Absolute lymphocyte counton 03-19-2022 Lymphocytes Auto (Unsp spec) [#/Vol] 1.35 10*3/uL 0.83-4.[address] [facility] Work Phone: Basophil percentageon 2021 Basophils/100 WBC (Bld) 0.5 % 0-1 [facility] Work Phone: Chloride [Moles/Vol] 101 mmol/L 98-107 [facility] Work Phone: Eosinophils/100 WBC (Bld) 2.1 % 0-[address] [facility] Work Phone: Glucose [Mass/Vol] 289 mg/dL 74-106 [facility] Work Phone: Comment on above: Glucose result great er than or equal to 200 mg/dLsuggests DIABETES MELLITUS per A.D.A. criteria. Neutrophils (Bld) [#/Vol] 4.4 10*3/uL 2.0-7.[address] [facility] Work Phone: Neutrophils/100 WBC (Bld) 67.1 % 47-[address] [facility] Work Phone: Potassium [Moles/Vol] 4.1 mmol/L 3.5-5.1 [facility] Work Phone: Sodium [Moles/Vol] 135 mmol/L 136-145 [facility] Work Phone: WBC (Bld) [#/Vol] 6.6 10*3/uL 4.4-11.0 [facility] Work Phone: Blood erythrocytes count (nu mber/volume)on 03-19-2022 RBC (Bld) [#/Vol] 4.23 10*6/uL 4.6-6.2 [facility] Work Phone: Blood hemoglobin measurement (mass/volume)on 03-19-2022 Hemoglobin (Bld) [Mass/Vol] 12.8 g/dL 13.0-16.[address] [facility] Work Phone: Blood lymphocytes/100 leukoc yteson 03-19-2022 Lymphocytes/100 WBC (Bld) 20.6 % 19-[address] [facility] Work Phone: Blood monocytes/100 leukocyt eson 03-19-2022 Monocytes/100 WBC (Bld) 9.5 % 0-10 [facility] Work Phone: [phone] Blood platelet mean volumeon 03-19-2022 Platelet mean volume (Bld) [Entitic vol] 11.3 fL 6.2-12.[address] [facility] Work Phone: [phone] Determination of erythrocyte mean corpuscular volume (MCV)on 03-19-2022 MCV (RBC) [Entitic vol] 84.4 fL 80-94 [facility] Work Phone: [phone] Glucose Glucometer (BldC) [M ass/Vol]on 03-19-2022 Glucose [Mass/Vol] 347 mg/dL 74-106 [facility] Work Phone: [phone] Comment on above: MANAGEMENT OF PATIEN T CARE PER NURSING PROTOCOL Hematocrit Auto (Bld) [Volum e fraction]on 03-19-2022 Hematocrit (Bld) [Volume fraction] 35.7 % 40-[address] [facility] Work Phone: [phone] Laboratory - Chemistry and C hemistry - challengeon 03-19-2022 CO2 [Moles/Vol] 27.0 mmol/L 21.0-32.[address] [facility] Work Phone: [phone] Urea nitrogen/Creatinine [Mass ratio] 29.6 mg/mg 10-[address] [facility] Work Phone: [phone] Laboratory - Hematology and Cell countson 03-19-2022 Erythrocyte distribution width (RBC) [Entitic vol] 36.8 fL 35.1-43.[address] [facility] Work Phone: [phone] Erythrocyte distribution width (RBC) [Ratio] 12.1 % 11.6-14.[address] [facility] Work Phone: [phone] Immature granulocytes/100 WBC (Bld) 0.200 % 0.0-0.[address] [facility] Work Phone: [phone] Comment on above: IG% - Immature Granu locytes (promyelocytes, myelocytes and metamyelocytes) > 1% indicates that a LEFT SHIFT is Present. MCH (RBC) [Entitic mass] 30.3 pg 27.0-32.[address] [facility] Work Phone: Nucleated RBC/100 WBC (Bld) [Ratio] 0 % 0-[address] [facility] Work Phone: MCHC Auto (RBC) [Mass/Vol]on 03-19-2022 MCHC (RBC) [Mass/Vol] 35.9 g/dL 32-36 [facility] Work Phone: No Panel Informationon 03-19 Estimated Creatinine Clearance Calc 46.18 ml/min [facility] Work Phone: Estimated GFR (MDRD) Amer 64 mL/min >[address] [facility] Work Phone: Comment on above: GFR Calc Estimated GFR (MDRD) Non-Af Amer 53 mL/min >[address] [facility] Work Phone: Comment on above: Non- GFR Calc Platelets bldon 03-19-2022 Platelets (Bld) [#/Vol] 144 10*3/uL 150-[address] [facility] Work Phone: Serum or plasma calcium lawson urement (mass/volume)on 03-19-2022 Calcium [Mass/Vol] 8.8 mg/dL 8.5-10.1 [facility] Work Phone: Serum or plasma creatinine m easurement (mass/volume)on 03-19-2022 Creatinine [Mass/Vol] 1.42 mg/dL 0.70-1.30 [facility] Work Phone: Comment on above: The validity of the calculated GFR & GFRAA in patients over 70 years has not been determined. Clinical correlation is essential. Serum or plasma urea nitroge n measurement (mass/volume)on 03-19-2022 Urea nitrogen [Mass/Vol] 42 mg/dL 7-[address] [facility] Work Phone: Thin prep Papanicolaou smear with manual screeningon 03-19-2022 Thin prep Papanicolaou smear with manual screening 7 5-[address] [facility] Work Phone: Basophil percentageon 2021 Cholesterol [Mass/Vol] 137 mg/dL <200 [facility] Work Phone: Comment on above: <200 mg/dL Desirable 200-240 mg/dL Borderline >240 mg/dL High Risk Triglyceride [Mass/Vol] 215 mg/dL <199 [facility] Work Phone: Comment on above: The drugs N-Acetylcy steine and Metamizole may falsely depress this assay.Serum Triglycerides Reference Interval Normal <150 mg/dL Borderline high 150 - 199 mg/dL High 200 - 499 mg/dL Very High > or = 500 mg/dL Serum or plasma cholesterol in HDL measurement (mass/volume)on 03-17-2022 Cholesterol in HDL [Mass/Vol] 36 mg/dL >[address] [facility] Work Phone: Comment on above: The drugs N-Acetylcy steine and Metamizole may falsely depress this assay. Reference Range HDL <40 mg/dL Low HDL Cholesterol HDL >or= 60 mg/dL High HDL Cholesterol Serum or plasma cholesterol in VLDL measurement (mass/volume)on 03-17-2022 Cholesterol in VLDL [Mass/Vol] 43 mg/dL 5-[address] [facility] Work Phone: Serum or plasma low density lipoprotein (LDL) cholesterol measurement (mass/volume)on 03-17-2022 Cholesterol in LDL [Mass/Vol] 58 mg/dL 0-[address] [facility] Work Phone: Absolute lymphocyte counton 03-16-2022 Lymphocytes Auto (Unsp spec) [#/Vol] 1.77 10*3/uL 0.83-4.[address] [facility] Work Phone: Basophil percentageon 2021 Basophils/100 WBC (Bld) 0.8 % 0-1 [facility] Work Phone: Chloride [Moles/Vol] 104 mmol/L 98-107 [facility] Work Phone: Eosinophils/100 WBC (Bld) 1.6 % 0-[address] [facility] Work Phone: Glucose [Mass/Vol] 131 mg/dL 74-106 [facility] Work Phone: Comment on above: Fasting Glucose resu lt greater than or equal to 126 mg/dL suggests DIABETES MELLITUS per A.D.A. criteria. Neutrophils (Bld) [#/Vol] 4.5 10*3/uL 2.0-7.[address] [facility] Work Phone: Neutrophils/100 WBC (Bld) 61.8 % 47-[address] [facility] Work Phone: [phone] Potassium [Moles/Vol] 3.6 mmol/L 3.5-5.1 [facility] Work Phone: Sodium [Moles/Vol] 139 mmol/L 136-145 [facility] Work Phone: [phone] WBC (Bld) [#/Vol] 7.4 10*3/uL 4.4-11.0 [facility] Work Phone: [phone] Blood erythrocytes count (nu mber/volume)on 03-16-2022 RBC (Bld) [#/Vol] 4.86 10*6/uL 4.6-6.2 [facility] Work [facility]: Blood hemoglobin measurement (mass/volume)on 03-16-2022 Hemoglobin (Bld) [Mass/Vol] 14.5 g/dL 13.0-16.[address] [facility] Work Phone: Blood lymphocytes/100 leukoc yteson 03-16-2022 Lymphocytes/100 WBC (Bld) 24.1 % 19-[address] [facility] Work Phone: Blood monocytes/100 leukocyt eson 03-16-2022 Monocytes/100 WBC (Bld) 11.4 % 0-10 [facility] Work Phone: Blood platelet mean volumeon 03-16-2022 Platelet mean volume (Bld) [Entitic vol] 11.0 fL 6.2-12.[address] [facility] Work Phone: Determination of erythrocyte mean corpuscular volume (MCV)on 03-16-2022 MCV (RBC) [Entitic vol] 86.4 fL 80-94 [facility] Work Phone: Hematocrit Auto (Bld) [Volum e fraction]on 03-16-2022 Hematocrit (Bld) [Volume fraction] 42.0 % 40-[address] [facility] Work Phone: INR in Blood by Coagulation assayon 03-16-2022 INR Coag (Bld) [Relative time] 1.0 {INR} [facility] Work Phone: [phone] Laboratory - Chemistry and C hemistry - challengeon 03-16-2022 CO2 [Moles/Vol] 29.0 mmol/L 21.0-32.[address] [facility] Work Phone: [phone] Urea nitrogen/Creatinine [Mass ratio] 16.4 mg/mg 10- [facility] Work Phone: [phone] Laboratory - Coagulationon 1 aPTT Coag (Bld) [Time] 23.1 s 24[facility]1-36.[facility] Work Phone: [phone] PT Coag (PPP) [Time] 12.9 s 11.7-14.9 [facility] Work Phone: Laboratory - Hematology and Cell countson 03-16-2022 Erythrocyte distribution width (RBC) [Entitic vol] 38.6 fL 35.1-43.[address] [facility] Work Phone: [phone] Erythrocyte distribution width (RBC) [Ratio] 12.4 % 11.6-14.[address] [facility] Work Phone: [phone] Immature granulocytes/100 WBC (Bld) 0.300 % 0.0-0.[address] [facility] Work Phone: [phone] Comment on above: IG% - Immature Granu locytes (promyelocytes, myelocytes and metamyelocytes) > 1% indicates that a LEFT SHIFT is Present. MCH (RBC) [Entitic mass] 29.8 pg 27.0-32.[address] [facility] Work Phone: Nucleated RBC/100 WBC (Bld) [Ratio] 0 % 0-[address] [facility] Work Phone: MCHC Auto (RBC) [Mass/Vol]on 03-16-2022 MCHC (RBC) [Mass/Vol] 34.5 g/dL 32-36 [facility] Work Phone: No Panel Informationon 03-16 Estimated Creatinine Clearance Calc 71.94 ml/min [facility] Work Phone: Estimated GFR (MDRD) Amer 72 mL/min >[address] [facility] Work Phone: [phone] Comment on above: GFR Calc Estimated GFR (MDRD) Non-Af Amer 60 mL/min >[address] [facility] Work Phone: Comment on above: Non- GFR Calc Troponin I High Sensitivity 112 pg/mL 3.0-78.[address] [facility] Work Phone: Comment on above: Please Note: New Denisha t Units and Gender Specific Reference Ranges. For more information see Policy Stat Procedure [place] High Sensitivity Troponin (TNIH) and attachments. Platelets bldon 03-16-2022 Platelets (Bld) [#/Vol] 214 10*3/uL 150-[address] [facility] Work Phone: Serum or plasma calcium lawson urement (mass/volume)on 03-16-2022 Calcium [Mass/Vol] 8.9 mg/dL 8.5-10.1 [facility] Work Phone: Serum or plasma creatinine m easurement (mass/volume)on 03-16-2022 Creatinine [Mass/Vol] 1.28 mg/dL 0.70-1.30 [facility] Work Phone: Comment on above: The validity of the calculated GFR & GFRAA in patients over 70 years has not been determined. Clinical correlation is essential. Serum or plasma urea nitroge n measurement (mass/volume)on 03-16-2022 Urea nitrogen [Mass/Vol] 21 mg/dL 7-[address] [facility] Work Phone: Thin prep Papanicolaou smear with manual screeningon 03-16-2022 Thin prep Papanicolaou smear with manual screening 6 5-[address] [facility] Work Phone: Absolute lymphocyte counton 10-05-2021 Lymphocytes Auto (Unsp spec) [#/Vol] 1.74 10*3/uL 0.83-4.[address] [facility] Work Phone: Basophil percentageon 2021 Basophils/100 WBC (Bld) 0.5 % 0-1 [facility] Work Phone: [phone] Bilirubin [Mass/Vol] 0.60 mg/dL 0.20-1.00 [facility] Work Phone: Comment on above: For patients on eltr ombopag therapy, use of Dimension [place] TBIL is not recommended. Chloride [Moles/Vol] 102 mmol/L 98-107 [facility] Work Phone: Eosinophils/100 WBC (Bld) 3.3 % 0-[address] [facility] Work Phone: Glucose [Mass/Vol] 257 mg/dL 74-106 [facility] Work Phone: Comment on above: Glucose result great er than or equal to 200 mg/dLsuggests DIABETES MELLITUS per A.D.A. criteria. Neutrophils (Bld) [#/Vol] 3.8 10*3/uL 2.0-7.[address] [facility] Work Phone: Neutrophils/100 WBC (Bld) 59.9 % 47-[address] [facility] Work Phone: [phone] Potassium [Moles/Vol] 3.9 mmol/L 3.5-5.1 [facility] Work Phone: Protein [Mass/Vol] 7.6 g/dL 6.4-8.2 [facility] Work Phone: Sodium [Moles/Vol] 137 mmol/L 136-145 [facility] Work Phone: WBC (Bld) [#/Vol] 6.3 10*3/uL 4.4-11.0 [facility] Work Phone: Blood erythrocytes count (nu mber/volume)on 10-05-2021 RBC (Bld) [#/Vol] 4.99 10*6/uL 4.6-6.2 [facility] Work Phone: Blood hemoglobin measurement (mass/volume)on 10-05-2021 Hemoglobin (Bld) [Mass/Vol] 14.7 g/dL 13.0-16.[address] [facility] Work Phone: [phone] Blood lymphocytes/100 leukoc yteson 10-05-2021 Lymphocytes/100 WBC (Bld) 27.5 % 19-[address] [facility] Work Phone: [phone] Blood monocytes/100 leukocyt eson 10-05-2021 Monocytes/100 WBC (Bld) 8.5 % 0-10 [facility] Work Phone: [phone] Blood platelet mean volumeon 10-05-2021 Platelet mean volume (Bld) [Entitic vol] 10.2 fL 6.2-12.[address] [facility] Work Phone: Determination of erythrocyte mean corpuscular volume (MCV)on 10-05-2021 MCV (RBC) [Entitic vol] 83.4 fL 80-94 [facility] Work Phone: Direct bilirubinon Bilirubin.direct [Mass/Vol] 0.15 mg/dL 0.00-0.[address] [facility] Work Phone: [phone] Hematocrit Auto (Bld) [Volum e fraction]on 10-05-2021 Hematocrit (Bld) [Volume fraction] 41.6 % 40-[address] [facility] Work Phone: Laboratory - Chemistry and C hemistry - challengeon 10-05-2021 ALP [Catalytic activity/Vol] 120 U/L 45-[address] [facility] Work Phone: ALT [Catalytic activity/Vol] 67 U/L 16-[address] [facility] Work Phone: [phone] CO2 [Moles/Vol] 31.0 mmol/L 21.0-32.[address] [facility] Work Phone: Globulin (S) [Mass/Vol] 4.1 g/dL 2.2-4.2 [facility] Work Phone: [phone] Lipase [Catalytic activity/Vol] 1086 U/L 73-[address] [facility] Work Phone: [phone] nitrogen/Creatinine [Mass ratio] 11.9 mg/mg 10-[address] [facility] Work Phone: [phone] Laboratory - Hematology and Cell countson 10-05-2021 Erythrocyte distribution width (RBC) [Entitic vol] 36.8 fL 35.1-43.[address] [facility] Work Phone: [phone] Erythrocyte distribution width (RBC) [Ratio] 12.1 % 11.6-14.[address] [facility] Work Phone: [phone] Immature granulocytes/100 WBC (Bld) 0.300 % 0.0-0.[address] [facility] Work Phone: [phone] Comment on above: IG% - Immature Granu locytes (promyelocytes, myelocytes and metamyelocytes) > 1% indicates that a LEFT SHIFT is Present. MCH (RBC) [Entitic mass] 29.5 pg 27.0-32.[address] [facility] Work Phone: [phone] Nucleated RBC/100 WBC (Bld) [Ratio] 0 % 0-[address] [facility] Work Phone: [phone] MCHC Auto (RBC) [Mass/Vol]on 10-05-2021 MCHC (RBC) [Mass/Vol] 35.3 g/dL 32-36 [facility] Work Phone: [phone] Panel Informationon 10-05 Estimated Creatinine Clearance Calc 60.97 ml/min [facility] Work Phone: [phone] Estimated GFR (MDRD) Amer 87 mL/min >[address] [facility] Work Phone: [phone] Comment on above: GFR Calc Estimated GFR (MDRD) Non-Af Amer 72 mL/min >[address] [facility] Work Phone: [phone] Comment on above: Non- GFR Calc Troponin I High Sensitivity 54 pg/mL 3.0-78.[address] [facility] Work Phone: Comment on above: Please Note: New Denisha t Units and Gender Specific Reference Ranges. For more information see Policy Stat Procedure [place] High Sensitivity Troponin (TNIH) and attachments. Platelets bldon 10-05-2021 Platelets (Bld) [#/Vol] 182 10*3/uL 150-[address] [facility] Work Phone: [phone] Serum or plasma albumin lawson urement (mass/volume)on 10-05-2021 Albumin [Mass/Vol] 3.5 g/dL 3.2-5.0 [facility] Work Phone: [phone] Serum or plasma calcium lawson urement (mass/volume)on 10-05-2021 Calcium [Mass/Vol] 8.9 mg/dL 8.5-10.1 [facility] Work Phone: [phone] Serum or plasma creatinine m easurement (mass/volume)on 10-05-2021 Creatinine [Mass/Vol] 1.09 mg/dL 0.70-1.30 [facility] Work Phone: Comment on above: The validity of the calculated GFR & GFRAA in patients over 70 years has not been determined. Clinical correlation is essential. Serum or plasma urea nitroge n measurement (mass/volume)on 10-05-2021 Urea nitrogen [Mass/Vol] 13 mg/dL 7-[address] [facility] Work Phone: [phone] Thin prep Papanicolaou smear with manual screeningon 10-05-2021 Thin prep Papanicolaou smear with manual screening 34 U/L 15-[address] [facility] Work Phone: [phone] Thin prep Papanicolaou smear with manual screening 4 5-[address] [facility] Work Phone: [phone] Clostridium difficile detect ion by polymerase chain reaction C. difficile DNA MATILDA+probe Ql (Unsp spec) [facility] Work Phone: [phone] Culture, urine Bacteria identified Cx Nom (U) Enterococcus faecalis [facility] Work Phone: [phone] Vital Signs Date Time Vital Sign Value Performing Clinician Faci lity 04-26-2023 14:51-0500 Body temperature 98.4 [degF] Callymirtha Webb ANDRA.DIRECTOR OF PRIMARY CARE Work Phone: [facility] 04-26-2023 14:51-0500 Body weight 98.43 kg Cally James ANDRA.DIRECTOR OF PRIMARY CARE Work Phone: [facility] 04-26-2023 14:51-0500 Diastolic blood pressure 80 mm[Hg] Cally Jon SILVERMAN.DIRECTOR OF PRIMARY CARE Work Phone: [facility] 04-26-2023 14:51-0500 Heart rate 86 /min Cally Jon SILVERMAN.DIRECTOR OF PRIMARY CARE Work Phone: [facility] 04-26-2023 14:51-0500 Respiratory rate 16 /min Callymirtha Webb APRN.DIRECTOR OF PRIMARY CARE Work Phone: [facility] 04-26-2023 14:51-0500 SaO2% (BldA) [Mass fraction] 100 % Cally Webb APRN.DIRECTOR OF PRIMARY CARE Work Phone: [facility] 04-26-2023 14:51-0500 Systolic blood pressure 132 mm[Hg] Cally Webb ANDRA.DIRECTOR OF PRIMARY CARE Work Phone: [facility] 01-18-2023 09:34-0400 Respiratory rate 16 /min [facility] 01-18-2023 07:34-0400 Body height 167.64 cm [facility] 01-18-2023 07:34-0400 Body temperature 96.5 [degF] [facility] 01-18-2023 07:34-0400 Diastolic blood pressure 70 mm[Hg] [facility] 01-18-2023 07:34-0400 Heart rate 70 /min [facility] 01-18-2023 07:34-0400 SaO2% (BldA) [Mass fraction] 98 % [facility] 01-18-2023 07:34-0400 Systolic blood pressure 120 mm[Hg] [facility] 08-23-2022 16:49-0500 Diastolic blood pressure 93 mm[Hg] [facility] 08-23-2022 16:49-0500 Heart rate 84 /min [facility] 08-23-2022 16:49-0500 Respiratory rate 16 /min [facility] 08-23-2022 16:49-0500 SaO2% (BldA) [Mass fraction] 97 % [facility] 08-23-2022 16:49-0500 Systolic blood pressure 176 mm[Hg] [facility] 08-23-2022 13:56-0500 Body height 167.64 cm [facility] 08-23-2022 13:56-0500 Body mass index (BMI) [Ratio] 31.2 kg/m2 [facility] 08-23-2022 13:56-0500 Body temperature 98.4 [degF] [facility] 08-23-2022 13:56-0500 Body weight 87.8 kg [facility] 06-30-2022 16:52-0500 Body temperature 98.1 [degF] [facility] 06-30-2022 16:52-0500 Diastolic blood pressure 68 mm[Hg] [facility] 06-30-2022 16:52-0500 Heart rate 96 /min [facility] 06-30-2022 16:52-0500 Respiratory rate 15 /min [facility] 06-30-2022 16:52-0500 SaO2% (BldA) [Mass fraction] 94 % [facility] 06-30-2022 16:52-0500 Systolic blood pressure 118 mm[Hg] [facility] 06-30-2022 14:06-0500 Body mass index (BMI) [Ratio] 31.1 kg/m2 [facility] 06-30-2022 07:50-0500 Inhaled oxygen flow rate 2 L/min [facility] 06-28-2022 14:32-0500 Body height 167.64 cm [facility] Work Phone: 06-28-2022 14:32-0500 Body weight 87.6 kg [facility] 06-28-2022 12:19-0500 Body temperature 97.1 [degF] [facility] Work Phone: 06-28-2022 12:19-0500 Diastolic blood pressure 90 mm[Hg] [facility] Work Phone: 06-28-2022 12:19-0500 Heart rate 68 /min [facility] Work Phone: 06-28-2022 12:19-0500 Respiratory rate 20 /min [facility] Work Phone: 06-28-2022 12:19-0500 SaO2% (BldA) [Mass fraction] 95 % [facility] Work Phone: 06-28-2022 12:19-0500 Systolic blood pressure 182 mm[Hg] [facility] Work Phone: 06-28-2022 10:55-0500 Body height 167.64 cm [facility] Work Phone: 06-28-2022 10:55-0500 Body mass index (BMI) [Ratio] 32.5 kg/m2 [facility] Work Phone: 06-28-2022 10:55-0500 Body weight 91.4 kg [facility] Work Phone: 06-02-2022 14:50-0500 Body temperature 98.5 [degF] [facility] 06-02-2022 14:50-0500 Diastolic blood pressure 71 mm[Hg] [facility] 06-02-2022 14:50-0500 Heart rate 69 /min [facility] 06-02-2022 14:50-0500 Respiratory rate 16 /min [facility] 06-02-2022 14:50-0500 SaO2% (BldA) [Mass fraction] 99 % [facility] 06-02-2022 14:50-0500 Systolic blood pressure 146 mm[Hg] [facility] 06-01-2022 20:38-0500 Body height 167.64 cm [facility] Work Phone: 06-01-2022 20:38-0500 Body mass index (BMI) [Ratio] 29.7 kg/m2 [facility] 06-01-2022 20:38-0500 Body weight 83.4 kg [facility] 06-01-2022 20:04-0500 Body temperature 97.9 [degF] [facility] Work Phone: 06-01-2022 20:04-0500 Diastolic blood pressure 100 mm[Hg] [facility] Work Phone: 06-01-2022 20:04-0500 Heart rate 61 /min [facility] Work Phone: 06-01-2022 20:04-0500 Respiratory rate 15 /min [facility] Work Phone: 06-01-2022 20:04-0500 SaO2% (BldA) [Mass fraction] 98 % [facility] Work Phone: 06-01-2022 20:04-0500 Systolic blood pressure 204 mm[Hg] [facility] Work Phone: 06-01-2022 14:17-0500 Body height 167.64 cm [facility] Work Phone: 06-01-2022 14:17-0500 Body mass index (BMI) [Ratio] 30.7 kg/m2 [facility] Work Phone: 06-01-2022 14:17-0500 Body weight 86.18 kg [facility] Work Phone: 05-07-2022 14:06-0500 Diastolic blood pressure 91 mm[Hg] [facility] 05-07-2022 14:06-0500 Heart rate 65 /min [facility] 05-07-2022 14:06-0500 Respiratory rate 16 /min [facility] 05-07-2022 14:06-0500 SaO2% (BldA) [Mass fraction] 95 % [facility] 05-07-2022 14:06-0500 Systolic blood pressure 140 mm[Hg] [facility] 05-07-2022 07:22-0500 Body height 167.64 cm [facility] Work Phone: 05-07-2022 07:22-0500 Body mass index (BMI) [Ratio] 29 kg/m2 [facility] 05-07-2022 07:22-0500 Body temperature 97.1 [degF] [facility] 05-07-2022 07:22-0500 Body weight 81.64 kg [facility] 04-30-2022 13:27-0500 Body mass index (BMI) [Ratio] 29.9 kg/m2 [facility] 04-30-2022 13:27-0500 Body weight 84.36 kg [facility] 04-30-2022 13:27-0500 Diastolic blood pressure 98 mm[Hg] [facility] 04-30-2022 13:27-0500 Heart rate 83 /min [facility] 04-30-2022 13:27-0500 Respiratory rate 16 /min [facility] 04-30-2022 13:27-0500 Systolic blood pressure 162 mm[Hg] [facility] 04-17-2022 08:51-0400 Body mass index (BMI) [Ratio] 32.3 kg/m2 [facility] Work Phone: 04-17-2022 08:26-0400 Body temperature 97.1 [degF] [facility] Work Phone: 04-17-2022 08:26-0400 Diastolic blood pressure 85 mm[Hg] [facility] Work Phone: 04-17-2022 08:26-0400 Heart rate 62 /min [facility] Work Phone: 04-17-2022 08:26-0400 Respiratory rate 17 /min [facility] Work Phone: 04-17-2022 08:26-0400 SaO2% (BldA) [Mass fraction] 100 % [facility] Work Phone: 04-17-2022 08:26-0400 Systolic blood pressure 159 mm[Hg] [facility] Work Phone: 04-17-2022 06:00-0400 Body weight 91.7 kg [facility] Work Phone: 03-27-2022 10:28-0400 Body height 167.64 cm [facility] Work Phone: 03-19-2022 15:49-0400 Body temperature 98.5 [degF] [facility] Work Phone: 03-19-2022 15:49-0400 Diastolic blood pressure 76 mm[Hg] [facility] Work Phone: 03-19-2022 15:49-0400 Heart rate 66 /min [facility] Work Phone: 03-19-2022 15:49-0400 Respiratory rate 16 /min [facility] Work Phone: 03-19-2022 15:49-0400 SaO2% (BldA) [Mass fraction] 95 % [facility] Work Phone: 03-19-2022 15:49-0400 Systolic blood pressure 114 mm[Hg] [facility] Work Phone: 03-19-2022 08:31-0400 Body mass index (BMI) [Ratio] 31.6 kg/m2 [facility] Work Phone: 03-17-2022 11:06-0400 Body height 167.64 cm [facility] Work Phone: 03-17-2022 11:06-0400 Body weight 88.8 kg [facility] Work Phone: 03-16-2022 08:01-0400 Body temperature 97.5 [degF] [facility] Work Phone: 03-16-2022 08:01-0400 Diastolic blood pressure 88 mm[Hg] [facility] Work Phone: 03-16-2022 08:01-0400 Heart rate 74 /min [facility] Work Phone: 03-16-2022 08:01-0400 Respiratory rate 19 /min [facility] Work Phone: 03-16-2022 08:01-0400 SaO2% (BldA) [Mass fraction] 97 % [facility] Work Phone: 03-16-2022 08:01-0400 Systolic blood pressure 132 mm[Hg] [facility] Work Phone: 03-16-2022 07:11-0400 Body height 2011.68 cm [facility] Work Phone: 03-16-2022 07:11-0400 Body mass index (BMI) [Ratio] 0.2 kg/m2 [facility] Work Phone: 03-16-2022 07:11-0400 Body weight 89.6 kg [facility] Work Phone: 10-05-2021 17:55-0400 Diastolic blood pressure 100 mm[Hg] [facility] Work Phone: 10-05-2021 17:55-0400 Heart rate 84 /min [facility] Work Phone: 10-05-2021 17:55-0400 Respiratory rate 17 /min [facility] Work Phone: 10-05-2021 17:55-0400 SaO2% (BldA) [Mass fraction] 98 % [facility] Work Phone: 10-05-2021 17:55-0400 Systolic blood pressure 176 mm[Hg] [facility] Work Phone: 10-05-2021 14:36-0400 Body height 167.64 cm [facility] Work Phone: 10-05-2021 14:36-0400 Body mass index (BMI) [Ratio] 29.7 kg/m2 [facility] Work Phone: 10-05-2021 14:36-0400 Body temperature 97.6 [degF] [facility] Work Phone: 10-05-2021 14:36-0400 Body weight 83.6 kg [facility] Work Phone: Encounters Encounter Date Encounter Type Care Provider Facility Start: 06-15-2024 [facility] Start: 06-15-2024 End: 06-15-2024 ambulatory Vandana Robotham Facility:[facility] Start: 06-14-2024 ambulatory Vandana Robotham Facilit y:[facility] Start: 04-05-2024 End: 04-05-2024 Emergency department patient visit [facility] Facility:[facility] Start: 04-05-2024 End: 04-05-2024 ambulatory [facility] Facility:[facility] Start: 04-04-2024 End: 04-04-2024 Emergency department patient visit Gilles Cowart Facility:[facility] Start: 02-10-2024 End: 02-12-2024 Evaluation and management of inpatient Emely Nava Facility:[facility] Start: 02-10-2024 ambulatory Emely Nava Facility:[facility] Start: 01-12-2024 ambulatory Shaye Abraham OLS Fa cility:[facility] Start: 01-06-2024 ambulatory Shaye Abraham OLS Fa cility:[facility] Start: 01-05-2024 End: 01-05-2024 ambulatory Rosalva Durand NP Facility:[facility] Start: 12-31-2023 ambulatory Selwyn Yañez Fa cility:[facility] Start: 12-30-2023 ambulatory Sofia Treadwell Facility:[facility] Start: 12-30-2023 End: 01-05-2024 Evaluation and management of inpatient Sofia Treadwell Facility:[facility] Start: 04-26-2023 End: 04-26-2023 ambulatory Facility:[facility] Start: 04-26-2023 End: 04-26-2023 Patient encounter procedure Cally Webb APRN.DIRECTOR OF PRIMARY CARE Work Phone: [facility] Comment on above: Puncture wound (Prim vijay Dx) Start: 01-18-2023 End: 01-18-2023 Emergency department patient visit [facility] Work Phone: Start: 08-23-2022 End: 08-23-2022 Emergency department patient visit [facility] Start: 06-30-2022 Non-patient / Non-visit [facility] Start: 06-29-2022 Non-patient / Non-visit [facility] Start: 06-28-2022 Non-patient / Non-visit [facility] Start: 06-28-2022 End: 06-30-2022 Evaluation and management of inpatient [facility]Progressive Care Unit Start: 06-02-2022 Non-patient / Non-visit [facility] Start: 06-01-2022 End: 06-02-2022 Evaluation and management of inpatient [facility] Start: 06-01-2022 End: 06-02-2022 observation encounter [facility] Work Phone: Start: 05-07-2022 End: 05-07-2022 Emergency department patient visit [facility]Emergency [facility] Start: 04-30-2022 End: 04-30-2022 Patient encounter procedure [facility] Start: 04-16-2022 Non-patient / Non-visit [facility] Start: 04-15-2022 Non-patient / Non-visit [facility] Start: 04-14-2022 Non-patient / Non-visit [facility] Start: 04-10-2022 Non-patient / Non-visit [facility] Start: 04-09-2022 Non-patient / Non-visit [facility] Start: 04-08-2022 Non-patient / Non-visit [facility] Start: 04-04-2022 Non-patient / Non-visit [facility] Start: 04-02-2022 Non-patient / Non-visit [facility] Start: 04-01-2022 Non-patient / Non-visit [facility] Start: 03-29-2022 Non-patient / Non-visit [facility] Start: 03-19-2022 End: 04-17-2022 Evaluation and management of inpatient [facility]Re[facility] Start: 03-19-2022 Non-patient / Non-visit [facility] Start: 03-18-2022 Non-patient / Non-visit [facility] Start: 03-18-2022 Non-patient / Non-visit [facility] Start: 03-17-2022 Non-patient / Non-visit [facility] Start: 03-17-2022 End: 03-19-2022 Evaluation and management of inpatient [facility] Start: 03-16-2022 Non-patient / Non-visit [facility] Start: 03-16-2022 Evaluation and management of inpatient [facility] Start: 03-16-2022 observation encounter [facility] Work Phone: Start: 10-05-2021 End: 10-05-2021 Emergency department patient visit [facility] Procedures Date Procedure Procedure Detail Performing Clinician Start: 01-18-2023 Plain chest X-ray Start: 01-18-2023 CT of head without contrast Start: 06-30-2022 MRI of brain with contrast [facility] Start: 06-30-2022 MRI of cervical spin e with contrast [facility] Start: 06-28-2022 [facility] Start: 06-28-2022 MRI of brain without contrast [facility] Start: 06-28-2022 Plain chest X-ray [facility] Start: 06-28-2022 CT angiography of he ad and neck [facility] Start: 06-28-2022 CT of head without contrast [facility] Start: 06-02-2022 MRI of brain without contrast [facility] Start: 06-01-2022 CT angiography of he ad and neck [facility] Start: 06-01-2022 CT of head without contrast [facility] Start: 05-07-2022 MRI of brain without contrast [facility] Start: 05-07-2022 CT angiography of he ad and neck [facility] Start: 03-28-2022 [facility] Start: 03-27-2022 Plain chest X-ray [facility] Start: 03-16-2022 MRI of brain without contrast [facility] Start: 03-16-2022 Plain chest X-ray Start: 03-16-2022 CT angiography of he ad and neck Start: 03-16-2022 CT of head without contrast Start: 10-05-2021 Plain chest X-ray Clostridium difficil e detection [facility] Urine culture [facility] Plan of Treatment Date Care Activity Detail Author Start: 12-09-2024 Urine microalbumin profile DTaP,Tdap,Td Vaccine (2 - Td or Tdap) [facility] Start: 02-14-2023 Influenza vaccination Influenza Vaccine (#1) [facility] Start: 01-18-[address] [facility] Start: 06-30-[address] [facility] Start: 06-28-2022 Application of intermittent pneumatic compression device [facility] Start: 06-28-2022 Ambulation without limitation [facility] Start: 06-28-2022 Assessment of risk of venous thromboembolism [facility] Start: 06-28-[address] [facility] Start: 06-28-2022 Care regimes management [facility] Start: 06-28-2022 Catheterization of vein [facility] Start: 06-28-2022 Elevation of head of bed [facility] Start: 06-28-[address] [facility] Start: 06-28-2022 Implementation of planned interventions [facility] Start: 06-28-2022 Insertion of catheter into peripheral vein [facility] Start: 06-28-2022 Measuring intake and output [facility] Start: 06-28-2022 Notification of physician [facility] Start: 06-28-[address] [facility] Start: 06-28-2022 Patient referral to dietitian [facility] Start: 06-28-2022 Providing care according to standard [facility] Start: 06-28-2022 Referral to occupational therapist [facility] Start: 06-28-2022 Referral to service [facility] Start: 06-28-2022 Speech therapy assessment [facility] Start: 06-28-2022 Tobacco use cessation education [facility] Start: 06-28-[address] [facility] Start: 06-28-2022 MRI of brain without contrast Brain without Contrast [facility] Work Phone: Start: 06-28-2022 Troponin I measurement [facility] Work Phone: Start: 06-28-[address] [facility] Work Phone: Start: 06-28-2022 Following clinical pathway protocol [facility] Start: 06-28-[address] [facility] Start: 06-28-[address] [facility] Work Phone: Start: 06-28-[address] [facility] Start: 06-16-2022 Advance Directive Discussion Advance Directive Discussion [facility] Start: 06-16-2022 Depression Assessment Depression Assessment [facility] Start: 06-02-[address] [facility] Start: 06-01-2022 Following clinical pathway protocol [facility] Start: 06-01-2022 Assessment of risk of venous thromboembolism [facility] Start: 06-01-[address] [facility] Start: 06-01-2022 Care regimes management [facility] Start: 06-01-2022 Insertion of catheter into peripheral vein [facility] Start: 06-01-2022 Measuring intake and output [facility] Start: 06-01-2022 Notification of physician [facility] Start: 06-01-[address] [facility] Start: 06-01-2022 Providing care according to standard [facility] Start: 06-01-2022 Provision of activity privileges [facility] Start: 06-01-2022 Referral to occupational therapist [facility] Start: 06-01-2022 Referral to service [facility] Start: 06-01-[address] [facility] Start: 06-01-[address] [facility] Work Phone: Start: 06-01-[address] [facility] Start: 04-17-[address] [facility] Work Phone: Start: 04-16-[address] [facility] Work Phone: Start: 04-15-2022 Referral to service [facility] Work Phone: Start: 04-09-[address] [facility] Work Phone: Start: 04-01-[address] [facility] Work Phone: Start: 03-29-[address] [facility] Work Phone: Start: 03-29-2022 Measuring intake and output [facility] Work Phone: Start: 03-26-[address] [facility] Work Phone: Start: 03-25-[address] [facility] Work Phone: Start: 03-24-[address] [facility] Work Phone: Start: 03-23-[address] [facility] Work Phone: Start: 03-22-[address] [facility] Work Phone: Start: 03-21-[address] [facility] Work Phone: Start: 03-20-2022 Introduction of urinary catheter [facility] Work Phone: Start: 03-20-[address] [facility] Work Phone: Start: 03-19-2022 Care regimes management [facility] Work Phone: Start: 03-19-[address] [facility] Work Phone: Start: 03-19-2022 Notification of physician [facility] Work Phone: Start: 03-19-2022 Urinary bladder training [facility] Work Phone: Start: 03-19-2022 Referral to service [facility] Work Phone: Start: 03-19-[address] [facility] Work Phone: Start: 03-19-2022 Patient referral to dietitian [facility] Work Phone: Start: 03-19-2022 Referral to occupational therapist [facility] Work Phone: Start: 03-19-2022 Vital signs measurements [facility] Work Phone: Start: 03-19-2022 End: 03-19-[address] [facility] Work Phone: Start: 03-19-[address] [facility] Work Phone: Start: 03-19-[address] [facility] Work Phone: Start: 03-19-2022 Speech therapy assessment [facility] Work Phone: Start: 03-17-[address] [facility] Work Phone: Start: 03-17-[address] [facility] Work Phone: Start: 03-16-2022 Care regimes management [facility] Work Phone: Start: 03-16-2022 Notification of physician [facility] Work Phone: Start: 03-16-[address] [facility] Work Phone: Start: 03-16-2022 Following clinical pathway protocol [facility] Work Phone: Start: 03-16-2022 Assessment of risk of venous thromboembolism [facility] Work Phone: Start: 03-16-[address] [facility] Work Phone: Start: 03-16-2022 Catheterization of vein [facility] Work Phone: Start: 03-16-[address] [facility] Work Phone: Start: 03-16-2022 Implementation of planned interventions [facility] Work Phone: Start: 03-16-2022 Insertion of catheter into peripheral vein [facility] Work Phone: Start: 03-16-2022 Measuring intake and output [facility] Work Phone: Start: 03-16-2022 Notification of physician [facility] Work Phone: Start: 03-16-[address] [facility] Work Phone: Start: 03-16-2022 Patient referral to dietitian [facility] Work Phone: Start: 03-16-2022 Providing care according to standard [facility] Work Phone: Start: 03-16-2022 Provision of activity privileges [facility] Work Phone: Start: 03-16-2022 Referral to occupational therapist [facility] Work Phone: Start: 03-16-2022 Referral to service [facility] Work Phone: Start: 03-16-2022 Speech therapy assessment [facility] Work Phone: Start: 03-16-2022 Tobacco use cessation education [facility] Work Phone: Start: 03-16-[address] [facility] Work Phone: Start: 03-16-[address] [facility] Work Phone: Start: 03-16-2022 MRI of brain without contrast Brain without Contrast [facility] Work Phone: Start: 03-16-[address] [facility] Work Phone: Start: 03-16-[address] [facility] Work Phone: Start: 02-25-2021 Pneumococcal Vaccine: 65+ (1 - PCV) Pneumococcal Vaccine: 65+ (1 - PCV) [facility] Start: 2016 RSV Vaccine (1 - 1-dose 60+ series) RSV Vaccine (1 - 1-dose 60+ series) [facility] Start: 02-25-2011 Prostate Cancer Screening Discussion Prostate Cancer Screening Discussion [facility] Start: 02-25-2006 Shingrix Vaccine (1 of 2) Shingrix Vaccine (1 of 2) [facility] Start: 02-25-2001 Cologuard (FIT-DNA) Cologuard (FIT-DNA) [facility] Start: 02-25-2001 Colonoscopy Colonoscopy [facility] Start: 02-25-2001 Colorectal Cancer Screening Colorectal Cancer Screening [facility] Start: 02-25-[address] Colonography [facility] Start: 02-25-2001 Diabetes Screening Diabetes Screening [facility] Start: 02-25-2001 Fecal Occult Blood Fecal Occult Blood [facility] Start: 02-25-2001 Sigmoidoscopy Sigmoidoscopy [facility] Start: 02-25-1991 Lipid 1996 panel - Serum or Plasma Lipid Screening [facility] Start: 02-25-1974 Hepatitis C Screening Hepatitis C Screening [facility] Start: 1955 Covid-19 Vaccine (#1) Covid-19 Vaccine (#1) [facility] Patient Education [facility] Work Phone: Patient referral [facility] Work Phone: Troponin I measurement [facility] Work Phone: Payers Date Payer Category Payer Unknown [id number] 13 2024 Medicare [id number] 2023 Self-pay [id number] 2023 Unknown [id number] 2021 Unknown ANTHEM BLUE CROS S AND BLUE SHIELD ANTHEM MEDIBLUE ACCESS [id number] 2021-[facility] [phone] [address] [place] [address] PPO [id number] Medicare [id number] Unknown [id number] Unknown [id number] Unknown [id number] [id number] Unknown [id number] [id number] Unknown [id number] [id number] Unknown [id number] [id number] Unknown [id number] [id number] Unknown [id number] 2.16840.1.350049.3.579.2.462 Unknown [id number] 2.16.840.1.223274.3.579.2.462 Unknown [id number] [id number] Unknown [id number] 2.16840.1.576705.3.579.2.462 Unknown [id number] 2.16.840.1.426022.3.579.2.462 Unknown [id number] 2.16.840.1.288068.3.579.2.462 Unknown [id number] 2.16.840.1.155538.3.579.2.462 Unknown [id number] 2.16.840.1.949986.3.579.2.462 Unknown [id number] 2.16.840.1.263296.3.579.2.462 Unknown [id number] 2.16.840.1.650160.3.579.2.462 Unknown [id number] 2.16.840.1.076624.3.579.2.462 Unknown [id number] [id number]2 Unknown [id number] [id number] Social History Date Type Detail Facility Start: 10-05-2021 End: 01-18-2023 Tobacco smoking status NHIS Unknown if ever smoked [facility] Start: 06-17-2019 None [facility] Start: 08-17-2019 Cigarettes [facility] Start: 1955 Sex Assigned At Male W [facility] Start: 04-26-2023 Tobacco smoking stat us ARIS Never smoked tobacco [facility] Work Phone: Start: 04-26-2023 Tobacco use and exposure Smokeless tobacco non-user [facility] Work Phone: Start: 10-30-2020 End: 04-26-2023 History of Social function [facility] Start: 10-30-2020 End: 04-26-2023 Tobacco use panel [facility] National Score (1-100), lower number is lower risk Not on file [facility] Start: 1955 Sex Assigned At Not on file [facility] Goals Date Patient Goal Desired Activity /State Functional Status Date Assessment Result Facility 06-30-2022 Functional status Activity Abili ty With Assist of [address] [facility] Work Phone: 06-30-2022 Functional status Patient Activity Ambula denisha [facility] Work Phone: 06-02-2022 Functional status Ambulates;Farshad r;Bathroom Privilege [facility] Work Phone: 04-17-2022 Functional status Activity Abili ty With Assist of [address] [facility] Work Phone: 04-13-2022 Functional status Chair;Bathroom Privileg e [facility] Work Phone: 03-19-2022 Functional status Ambulates [facility] Work Phone: Mental Status Date Assessment Result Facility 08-23-2022 Cognitive function [facility]/Name [facility] Work Phone: 06-30-2022 Cognitive function Voice/Name [facility] Work Phone: 06-28-2022 Cognitive function Voice/Name [facility] Work Phone: 06-02-2022 Cognitive function Voice/Name [facility] Work Phone: 06-01-2022 Cognitive function Level Of Cons ciousness Awake;Alert;Appropriate;Follow s Commands [facility] Work Phone: 05-07-2022 Cognitive function Level Of Cons ciousness Awake;Alert;Appropriate;Follow s Commands [facility] Work Phone: 04-17-2022 Cognitive function Voice/Name [facility] Work Phone: 03-19-2022 Cognitive function Voice/Name [facility] Work Phone: 03-16-2022 Cognitive function Voice/Name [facility] Work Phone: 10-05-2021 Cognitive function Level Of Cons ciousness Awake;Alert;Appropriate;Follow s Commands;Responds to vocal stimuli [facility] Work Phone: Clinical Notes 06-02-2022 to 06-15-2024 Cally Webb APRN.DIRECTOR OF PRIMARY CARE - 04/26/2023 3:09 PM Cally Ansari APRN.DIRECTOR OF PRIMARY CARE - 04/26/2023 2:55 PM EST Note Date & Type Note Facility 06-15-2024 Note [facility] Medical Records Department [address] [place] [address] History Physical Exam 06/15/24 0711 MR#: [id number] Acct: [id number] Name: OPAL CRUZ Rep #: [id number] : 1955 69 From: Vandana Gutierrez MD [facility]CP: [facility] Status:[facility] Location: [facility] History and Physical Date of Admission: 06/15/24 06/14/24824 MR#: [id number] Acct: [id number] Name: OPAL CRUZ Rep #: [id number] : 1955 69 From: Vandana Gutierrez MD PCP: [facility] Status: REG [facility] Location: [place] [address]-1 HPI - General General Date of Service: 06/14/24 HPI Narrative OPAL CRUZ, is a 69 M who presents for colonoscopy due to history of colon polyps and EGD due to GERD. Patient denies any further nausea and vomiting which she had previously at the time of office visit. Patient has been has bowel movements mostly daily denies any blood. Patient's prep is currently liquid brown. Office visit 04/05/2024 HPI HPI: 69-year-old male presents for colonoscopy due to history of colon polyps. Patient last colonoscopy of 2017 with tubular adenomas at that time, patient did receive movie prep from the [facility]. Patient has bowel movements about every 2 to 3 days. Denies any blood. Patient denies any family history of colon cancer. Patient still having nausea and vomiting unable to keep anything down since yesterday. Patient did go to the ER yesterday was found to have lipase of 809 as well as an ALT that was elevated the rest liver functions were normal. Patient states that he is has had some reflux and burning upper esophagus for the past couple days states its constant did try Pepcid however he did throw back up. Patient denies any long history of reflux states he has been on omeprazole previously maybe about 3 months total. Patient also denies any heavy alcohol use or history of pancreatitis prior to the elevated lipase yesterday. Patient had an EGD screen greater than 20 years ago in the . [facility] Medical History Wears glasses Wears dentures Depression Anxiety History of edema Blister Walker as ambulation aid BPH (benign prostatic hyperplasia) Prostate disease Low iron High cholesterol Migraine headache Stroke/cerebrovascular accident Heartburn Gastric reflux Shortness of breath on exertion Non-smoker History of stress test History of echocardiogram Cardiology follow-up encounter Generalized weakness Cellulitis of leg, right Acute kidney injury Cellulitis Left-sided weakness Diabetic retinopathy Narcolepsy Depression Anxiety Diabetic polyneuropathy Vitamin D deficiency Migraine headache Obstructive sleep apnea Hyperlipidemia Coronary artery disease Right pontine stroke Ischemic stroke Hernia History of COVID-19 Vision loss of right eye Hearing loss, left Hearing loss, right Hypothyroidism Chronic pain Osteoporosis GERD (gastroesophageal reflux disease) GI bleed Former smoker CPAP (continuous positive airway pressure) dependence Sleep apnea Chest pain Elevated troponin Elevated lipase Myocardial infarct DM2 (diabetes mellitus, type 2) Essential (primary) hypertension Home Medications ???Medication ???Instructions ???Recorded ???Last Taken ???Type nortriptyline 10 mg capsule 30 mg PO QHS migraines 10/05/16 02/10/24 History aspirin 81 mg chewable tablet 81 mg PO DAILY heart health 08/17/19 06/07/24 History acetaminophen 500 mg tablet 1,000 mg (2 x 500 mg) PO Q6H PRN 04/16/22 Unknown Rx PRN Pain Score 1-10 #1 TAB atorvastatin 40 mg tablet (Lipitor) 40 mg PO QHS cholesterol 12/30/23 02/09/24 History furosemide 20 mg tablet 20 mg PO DAILY blood pressure 12/30/23 02/10/24 History spironolactone 25 mg tablet 25 mg PO DAILY blood pressure 12/30/23 02/10/24 History (Aldactone) tamsulosin 0.4 mg capsule 0.8 mg (2 x 0.4 mg) PO DAILY@1730 01/05/24 06/09/24 Rx #0 caps insulin regular hum U-500 conc 500 90 unit subcut BID diabetes 02/10/24 02/10/24 History unit/mL(3 mL) subcut pen (Humulin R U-500 (Conc) Insulin Kwikpen) lisinopril 40 mg tablet 40 mg PO DAILY blood pressure 02/10/24 02/10/24 History metoprolol succinate 25 mg 25 mg PO QHS blood pressure 02/10/24 06/09/24 History tablet,extended release 24 hr empagliflozin 25 mg tablet 12.5 mg PO DAILY diabetes 04/05/24 Unknown History magnesium oxide 420 mg tablet 420 mg PO ONCE 04/05/24 Unknown History omega 2-vch-myv-fish oil 300 1 cap PO BID 04/05/24 Unknown History mg-1,000 mg capsule,delayed release (Fish Oil) pregabalin 50 mg capsule (Lyrica) 150 mg PO BID neuropathy 04/05/24 Unknown History sertraline 100 mg tablet 150 mg PO DAILY depression 03/17 (more content not included)... [facility] 06-14-2024 Note [facility] Medical Records Department [address] [place] [address] History Physical Exam 06/14/24824 MR#: [id number] Acct: [id number] Name: OPAL CRUZ Rep #: [id number] : 1955 69 From: Vandana Gutierrez MD PCP: [facility] Status[facility] Location: [place] [address] HPI - General General Date of Service: 06/14/24 HPI Narrative OPAL CRUZ, is a 69 M who presents for colonoscopy due to history of colon polyps and EGD due to GERD. Patient denies any further nausea and vomiting which she had previously at the time of office visit. Patient has been has bowel movements mostly daily denies any blood. Patient's prep is currently liquid brown. Office visit 04/05/2024 HPI HPI: 69-year-old male presents for colonoscopy due to history of colon polyps. Patient last colonoscopy of 2017 with tubular adenomas at that time, patient did receive movie prep from the [facility]. Patient has bowel movements about every 2 to 3 days. Denies any blood. Patient denies any family history of colon cancer. Patient still having nausea and vomiting unable to keep anything down since yesterday. Patient did go to the ER yesterday was found to have lipase of 809 as well as an ALT that was elevated the rest liver functions were normal. Patient states that he is has had some reflux and burning upper esophagus for the past couple days states its constant did try Pepcid however he did throw back up. Patient denies any long history of reflux states he has been on omeprazole previously maybe about 3 months total. Patient also denies any heavy alcohol use or history of pancreatitis prior to the elevated lipase yesterday. Patient had an EGD screen greater than 20 years ago in the . [facility] Medical History Wears glasses Wears dentures Depression Anxiety History of edema Blister Walker as ambulation aid BPH (benign prostatic hyperplasia) Prostate disease Low iron High cholesterol Migraine headache Stroke/cerebrovascular accident Heartburn Gastric reflux Shortness of breath on exertion Non-smoker History of stress test History of echocardiogram Cardiology follow-up encounter Generalized weakness Cellulitis of leg, right Acute kidney injury Cellulitis Left-sided weakness Diabetic retinopathy Narcolepsy Depression Anxiety Diabetic polyneuropathy Vitamin D deficiency Migraine headache Obstructive sleep apnea Hyperlipidemia Coronary artery disease Right pontine stroke Ischemic stroke Hernia History of COVID-19 Vision loss of right eye Hearing loss, left Hearing loss, right Hypothyroidism Chronic pain Osteoporosis GERD (gastroesophageal reflux disease) GI bleed Former smoker CPAP (continuous positive airway pressure) dependence Sleep apnea Chest pain Elevated troponin Elevated lipase Myocardial infarct DM2 (diabetes mellitus, type 2) Essential (primary) hypertension Home Medications ???Medication ???Instructions ???Recorded ???Last Taken ???Type nortriptyline 10 mg capsule 30 mg PO QHS migraines 10/05/16 02/10/24 History aspirin 81 mg chewable tablet 81 mg PO DAILY heart health 08/17/19 06/07/24 History acetaminophen 500 mg tablet 1,000 mg (2 x 500 mg) PO Q6H PRN 04/16/22 Unknown Rx PRN Pain Score 1-10 #1 TAB atorvastatin 40 mg tablet (Lipitor) 40 mg PO QHS cholesterol 12/30/23 02/09/24 History furosemide 20 mg tablet 20 mg PO DAILY blood pressure 12/30/23 02/10/24 History spironolactone 25 mg tablet 25 mg PO DAILY blood pressure 12/30/23 02/10/24 History (Aldactone) tamsulosin 0.4 mg capsule 0.8 mg (2 x 0.4 mg) PO DAILY@1730 01/05/24 06/09/24 Rx #0 caps insulin regular hum U-500 conc 500 90 unit subcut BID diabetes 02/10/24 02/10/24 History unit/mL(3 mL) subcut pen (Humulin R U-500 (Conc) Insulin Kwikpen) lisinopril 40 mg tablet 40 mg PO DAILY blood pressure 02/10/24 02/10/24 History metoprolol succinate 25 mg 25 mg PO QHS blood pressure 02/10/24 06/09/24 History tablet,extended release 24 hr empagliflozin 25 mg tablet 12.5 mg PO DAILY diabetes 04/05/24 Unknown History magnesium oxide 420 mg tablet 420 mg PO ONCE 04/05/24 Unknown History omega 9-uon-wxt-fish oil 300 1 cap PO BID 04/05/24 Unknown History mg-1,000 mg capsule,delayed release (Fish Oil) pregabalin 50 mg capsule (Lyrica) 150 mg PO BID neuropathy 04/05/24 Unknown History sertraline 100 mg tablet 150 mg PO DAILY depression 04/05/24 Unknown History Allergy/AdvReac Type Severity Reaction Status Date / Time No Known Allergies Allergy Verified 06/14/24 08:33 Family History Mother Diabetes Father Heart disease CVA (cerebral vascular accident) Surgical History ... [facility] 02-12-2024 Note [facility] Medical Records Department [address] [place] [address] Discharge Summary 02/12/24 1333 MR#: [id number] Acct: [id number] Name: OPAL CRUZ Rep #: [id number] : 1955 68 From: Stevenson Rodriguez DO PCP: [facility] Status:DIS IN Location: [id number] Providers Date of Admission: 02/10/24 Date of Discharge: 02/12/24 Primary Care Physician: [facility] Reason For Visit: CELLULITIS RLE, TONNY Diagnosis Discharge Diagnosis (1) Cellulitis of leg, right: Status: Acute Code(s): L03.115 - Cellulitis of right lower limb Plan 1. Cellulitis of the right lower leg-patient has reddened areas over both lower extremities indicative of stasis dermatitis changes, the right lower leg however is more indurated and warm to the touch. Continue IV Unasyn at this time, evaluates patient tomorrow #2 generalized debility-PT and OT are seeing the patient #3 acute kidney injury-patient's creatinine is improved today, I have elected to restart his spironolactone, metoprolol, and lisinopril #4 type 2 diabetes-patient's blood sugars will be monitored, sliding scale insulin will be administered as needed Total clinical time spent by myself addressing the patient's medical issues, reviewing all of his data, and collaborating with patient's care team: 35 minutes Medications at Discharge Home Medications nortriptyline 10 mg capsule 30 mg PO DAILY migraines 10/05/16 aspirin 81 mg chewable tablet 81 mg PO DAILY heart health 08/17/19 acetaminophen 500 mg tablet 1,000 mg (2 x 500 mg) PO Q6H PRN PRN Pain Score 1-10 #1 TAB 04/16/22 magnesium chloride 64 mg (magnesium chloride) tablet,delayed release (Mag 64) 128 mg (2 x 64 mg) PO BID supplement #60 tabs 04/16/22 amlodipine 10 mg tablet 5 mg PO DAILY blood pressure 04/30/22 sacubitril 49 mg-valsartan 51 mg tablet (Entresto) 1 tab PO BID blood pressure #180 tabs 04/30/22 metoclopramide HCl 10 mg tablet (Reglan) 10 mg PO Q6H PRN nausea and vomiting #10 tabs 04/27/23 atorvastatin 40 mg tablet (Lipitor) 40 mg PO QHS cholesterol 12/30/23 furosemide 20 mg tablet 20 mg PO DAILY blood pressure 12/30/23 sertraline 100 mg tablet 100 mg PO DAILY depression 12/30/23 spironolactone 25 mg tablet (Aldactone) 25 mg PO DAILY blood pressure 12/30/23 melatonin 3 mg tablet 3 mg PO QHS PRN PRN Insomnia #0 tabs 01/05/24 tamsulosin 0.4 mg capsule 0.8 mg (2 x 0.4 mg) PO DAILY@1730 #0 caps 01/05/24 empagliflozin 25 mg tablet 25 mg PO DAILY diabetes 02/10/24 insulin regular hum U-500 conc 500 unit/mL(3 mL) subcut pen (Humulin R U-500 (Conc) Insulin Kwikpen) 90 unit subcut BID diabetes 02/10/24 lisinopril 40 mg tablet 40 mg PO DAILY blood pressure 02/10/24 metoprolol succinate 25 mg tablet,extended release 24 hr 25 mg PO DAILY blood pressure 02/10/24 pregabalin 50 mg capsule (Lyrica) 50 mg PO BID neuropathy 02/10/24 cefdinir 300 mg capsule 300 mg PO BID #14 caps 02/12/24 Hospital Course Operations None Procedures None Summary of Care Provided Minutes Spent on Discharge: 31 Hospital Course: This 68-year-old white male was seen in the emergency room at [facility] with complaints of a reddened area over the patient's right lower leg with warmth and tenderness. Patient also complained of generalized fatigue. Workup in the emergency room included labs which were abnormal for a creatinine of 1.91, BUN was 38, patient's white blood cell count was normal. Patient was admitted to [place] [address] for cellulitis of the right lower extremity, he was placed on IV antibiotics and given IV fluids, he was seen by PT and OT. Patient was active as an outpatient with PT and OT. The appearance of the patient's right lower leg improved during his hospitalization, on 02/12/2024, patient was seen and examined: On examination he appeared in good health and spirits. Vital signs as documented. Skin warm and dry and without overt rashes. Neck without JVD, neck was supple, trachea midline, thyroid was normal. Lungs clear bilaterally, normal air movement was noted. Heart exam notable for regular rhythm, normal sounds and absence of murmurs, rubs or gallops. Abdomen unremarkable and without evidence of organomegaly, masses, or abdominal aortic enlargement. Bowel sounds are present, abdomen is not distended. Extremities-there is evidence of edema in both lower legs, there is evidence of stasis dermatitis in both lower legs, there was evidence of increased redness of the right lower leg, no cyanosis was noted, no clubbing was noted. Neuro: Cranial nerves II through XII are grossly intact, no focal motor deficits were noted, sensation to light touch and pinprick intact, motor exam 5/5 throughout. Psych: Patient is alert and oriented x3, he does not appear anxious or depressed, he does not appear agitated. On 02/12/2024, patient was seen and examined and felt to be in stable condition for discharge (more content not included)... [facility] 01-05-2024 Note [facility] Medical Records Department [address] [place] [address] Discharge Summary 01/05/24 0917 MR#: [id number] Acct: [id number] Name: OPAL CRUZ Rep #: [id number] : 1955 68 From: Stevenson Rodriguez DO PCP: [facility] Status:DIS IN Location: [facility] [id number] Providers Date of Admission: 12/30/23 Date of Discharge: 01/05/24 Primary Care Physician: [facility] Consultations 12/30/23 16:49 Consult: Beam Department Supervisor / Pulmonary Medicine Routine Consulting Provider: [facility] Reason for Consult: stroke for thrombolytic administration EMERGENT Consult: Yes MD Notified: Yes Date Notified: 12/30/23 Time Notified: 16:49 Method of Notification: Text Comments:: Consult may be done in ED or ICU 12/30/23 18:59 Consult: Onc/Wound/manifold operator Routine Comment: Reason for Consult:: Bilateral lower ext cellulitis w/ open wounds 12/30/23 19:06 Consult: Onc/Wound/manifold operator Routine Comment: Consult: Tele-Neurology Routine Consulting Provider: [facility] Reason for Consult: Acute Stroke Post Tenecteplase administration EMERGENT Consult: No MD Notified: No Date Notified: 12/30/23 Time Notified: 17:36 Nursing Unit Staff Notify [facility] of Tele-Neurology Consult: Yes Reason For Visit: L SIDED WEAKNESS Diagnosis Discharge Diagnosis (1) Left-sided weakness: Status: Acute Code(s): R53.1 - Weakness (2) Diabetes: Status: Acute Code(s): E11.9 - Type 2 diabetes mellitus without complications Plan 1. Left-sided weakness-etiology unclear, ischemic stroke was ruled out, patient will continue to receive PT and OT, he will need placement in a nursing home facility or rehab facility for inpatient rehab #2 type 2 diabetes-blood sugars will be monitored, sliding scale insulin will be given as indicated, I adjusted his U-500 insulin today, patient's blood sugars elevated a little bit since yesterday #3 essential hypertension-patient will remain on his present medications #4 chronic kidney disease stage IIIb-continue to monitor labs as indicated, complicates care, management, recovery, and prognosis #5 cerebrovascular disease-patient has had a past history of stroke #6 diabetic retinopathy-patient has had a history of diabetic retinopathy and sees an chlorinator operator. #7 coronary artery disease-this appears stable at this time, complicates care, management, recovery, and prognosis #8 urinary retention-secondary to BPH, patient is currently on Flomax #9 dyspnea-etiology unknown Total clinical time spent by myself addressing patient's medical issues, reviewing all of his data, and collaborating with the patient's care team: 35 minutes Medications at Discharge Home Medications metoprolol tartrate 100 mg tablet 25 mg PO BID blood pressure 10/05/16 nortriptyline 10 mg capsule 30 mg PO DAILY migraines 10/05/16 modafinil 200 mg tablet 200 mg PO DAILY narcolepsy 06/17/19 aspirin 81 mg chewable tablet 81 mg PO DAILY heart health 08/17/19 sertraline 150 mg capsule 150 mg PO DAILY mood 03/19/22 acetaminophen 500 mg tablet 1,000 mg (2 x 500 mg) PO Q6H PRN PRN Pain Score 1-10 #1 TAB 04/16/22 magnesium chloride 64 mg (magnesium chloride) tablet,delayed release (Mag 64) 128 mg (2 x 64 mg) PO BID #60 tabs 04/16/22 amlodipine 10 mg tablet 5 mg PO DAILY 04/30/22 sacubitril 49 mg-valsartan 51 mg tablet (Entresto) 1 tab PO BID #180 tabs 04/30/22 metoclopramide HCl 10 mg tablet (Reglan) 10 mg PO Q6H PRN nausea and vomiting #10 tabs 04/27/23 atorvastatin 40 mg tablet (Lipitor) 40 mg PO QHS 12/30/23 furosemide 20 mg tablet 20 mg PO DAILY 12/30/23 sertraline 100 mg tablet 100 mg PO DAILY 12/30/23 spironolactone 25 mg tablet (Aldactone) 25 mg PO DAILY 12/30/23 insulin regular hum U-500 conc 500 unit/mL(3 mL) subcut pen (Humulin R U-500 (Conc) Insulin Kwikpen) 40 unit (0.08 mL) subcut 1130 #0 mL 01/05/24 insulin regular hum U-500 conc 500 unit/mL(3 mL) subcut pen (Humulin R U-500 (Conc) Insulin Kwikpen) 45 unit (0.09 mL) subcut 1630 #0 mL 01/05/24 insulin regular hum U-500 conc 500 unit/mL(3 mL) subcut pen (Humulin R U-500 (Conc) Insulin Kwikpen) 50 unit (0.1 mL) subcut BREAKFAST #0 mL 01/05/24 melatonin 3 mg tablet 3 mg PO QHS PRN PRN Insomnia #0 tabs 01/05/24 pregabalin 50 mg capsule 200 mg (4 x 50 mg) PO BID #0 caps 01/05/24 tamsulosin 0.4 mg capsule 0.8 mg (2 x 0.4 mg) PO DAILY@1730 #0 caps 01/05/24 Hospital Course Operations None Procedures 2-D Echocardiogram Summary of Care Provided Minutes Spent on Discharge: 32 Hospital Course: This 68-year-old white male was seen in the emergency room at [facility] with complaints of weakness and shortness of breath. Patient had been seen at the [facility] for a visit today and on his way back home started having a mild headache, he then stated that he was walking into his house an (more content not included)... [facility] 04-26-2023 Note HNO ID: [id number] Author: Cally Webb APRN.DIRECTOR OF PRIMARY CARE Service: ? Author Type: Nurse Practitioner Type: Progress Notes Filed: 04/26/2023 3:11 PM Note Text: Subjective Patient came in with complaints of multiple puncture wounds on right arm and hand. Patient says he was messing around with his own dog and the dog nipped at him. Patient says it was about 2 weeks ago and now the areas seem to get red and warm. The history is provided by the patient. No manager language was used. Review of Systems Constitutional: Negative. Skin: Negative. Objective Physical Exam Constitutional: Appearance: Normal appearance. Pulmonary: Effort: Pulmonary effort is normal. Musculoskeletal: Arms: Comments: Mild to moderate erythema around wounds that are scabbed. No drainage noted. Neurological: Mental Status: He is alert. No past medical history on file. No past surgical history on file. ALLERGIES Patient has no known allergies. MEDICATIONS metoprolol tartrate, short acting, (LOPRESSOR) 100 mg tablet Take 100 mg by mouth twice daily. amLODIPine (NORVASC) 5 mg tablet Take by mouth once daily. lisinopril (ZESTRIL, PRINIVIL) 20 mg tablet Take 20 mg by mouth once daily. atorvastatin (LIPITOR) 20 mg tablet Take 20 mg by mouth once daily. modafinil (PROVIGIL) 200 mg tablet Take 200 mg by mouth once daily. Pregabalin (LYRICA) 200 mg capsule Take 200 mg by mouth twice daily. sertraline (ZOLOFT) 100 mg tablet Take 100 mg by mouth once daily. nortriptyline (PAMELOR) 10 mg capsule Take 10 mg by mouth daily at bedtime. tamsulosin (FLOMAX) 0.4 mg Take 0.4 mg by mouth once daily. busPIRone (BUSPAR) 10 mg tablet Take 10 mg by mouth three times daily. insulin glargine,hum.rec.anlog (LANTUS SUBCUTANEOUS) Inject subcutaneously. metFORMIN ER (FORTAMET) 500 mg 24 hr tablet Take 500 mg by mouth daily with breakfast. liraglutide (VICTOZA 3-AHSAN SUBCUTANEOUS) Inject subcutaneously. insulin aspart (NOVOLOG FLEXPEN U-100 INSULIN SUBCUTANEOUS) Inject subcutaneously. doxycycline monohydrate 100 mg tablet Take 1 tablet by mouth two times a day for 7 days. No family history on file. Social History Tobacco Use Smoking status: Never Smokeless tobacco: Never ASSESSMENT/PLAN: 1. Puncture wound - ICD9: 879.8, ICD10: T14.8XXA - DOXYCYCLINE MONOHYDRATE 100 MG TABLET Patient was educated about proper use of medication and supportive therapies. Patient was educated to monitor for signs and symptoms of worsening. Patient will follow-up if anything changes. Patient was okay with this care plan Cally Webb APRN.DIRECTOR OF PRIMARY CARE [facility] 04-26-2023 Note HNO ID: [id number] Author: Cally Webb APRN.SEBAS Service: ? Author Type: Nurse Practitioner Type: Progress Notes Filed: 04/26/2023 3:11 PM Note Text: Subjective HPI ROS Objective Physical Exam [facility] 04-26-2023 History of Present illness Narrative Images from the original note were not included. Subjective Patient came in with complaints of multiple puncture wounds on right arm and hand. Patient says he was messing around with his own dog and the dog nipped at him. Patient says it was about 2 weeks ago and now the areas seem to get red and warm. The history is provided by the patient. No manager language was used. Review of Systems Constitutional: Negative. Skin: Negative. Objective Physical Exam Constitutional: Appearance: Normal appearance. Pulmonary: Effort: Pulmonary effort is normal. Musculoskeletal: Arms: Comments: Mild to moderate erythema around wounds that are scabbed. No drainage noted. Neurological: Mental Status: He is alert. No past medical history on file. No past surgical history on file. ALLERGIES Patient has no known allergies. MEDICATIONS metoprolol tartrate, short acting, (LOPRESSOR) 100 mg tablet Take 100 mg by mouth twice daily. amLODIPine (NORVASC) 5 mg tablet Take by mouth once daily. lisinopril (ZESTRIL, PRINIVIL) 20 mg tablet Take 20 mg by mouth once daily. atorvastatin (LIPITOR) 20 mg tablet Take 20 mg by mouth once daily. modafinil (PROVIGIL) 200 mg tablet Take 200 mg by mouth once daily. Pregabalin (LYRICA) 200 mg capsule Take 200 mg by mouth twice daily. sertraline (ZOLOFT) 100 mg tablet Take 100 mg by mouth once daily. nortriptyline (PAMELOR) 10 mg capsule Take 10 mg by mouth daily at bedtime. tamsulosin (FLOMAX) 0.4 mg Take 0.4 mg by mouth once daily. busPIRone (BUSPAR) 10 mg tablet Take 10 mg by mouth three times daily. insulin glargine,hum.rec.anlog (LANTUS SUBCUTANEOUS) Inject subcutaneously. metFORMIN ER (FORTAMET) 500 mg 24 hr tablet Take 500 mg by mouth daily with breakfast. liraglutide (VICTOZA 3-AHSAN SUBCUTANEOUS) Inject subcutaneously. insulin aspart (NOVOLOG FLEXPEN U-100 INSULIN SUBCUTANEOUS) Inject subcutaneously. doxycycline monohydrate 100 mg tablet Take 1 tablet by mouth two times a day for 7 days. No family history on file. Social History Tobacco Use Smoking status: Never Smokeless tobacco: Never ASSESSMENT/PLAN: 1. Puncture wound - ICD9: 879.8, ICD10: T14.8XXA - DOXYCYCLINE MONOHYDRATE 100 MG TABLET Patient was educated about proper use of medication and supportive therapies. Patient was educated to monitor for signs and symptoms of worsening. Patient will follow-up if anything changes. Patient was okay with this care plan Cally Webb APRN.DIRECTOR OF PRIMARY CARE Subjective HPI ROS Objective Physical Exam documented in this encounter [facility] 08-23-2022 Discharge summary Note Date/Time August 23, 2022 3:41pm [facility] Medical Records Department [address] [place] [address] Emergency Department Summary 08/23/22 MR#: [id number] Acct: [id number] Name: OPAL CRUZ Rep #:[id number] 67 From: Real Mendoza MD PCP: [facility] Status:REG ER Location: ED HPI History of Present Illness Chief Complaint: Confusion Detail of Chief Complaint: Disoriented to time while speaking to the [facility] Informant: patient Onset/Context/Timing Onset: Hours Context: Sudden Onset Timing: Intermittent Quality: Disorientation to time Location: Was at home speaking with the [place] nurse Current Severity: Gone Maximum Severity: Mild Worsened by: Disorientation to time nothing Relieved by: Nothing Associated Symptoms Associated Symptoms: Slight discomfort with urination and urgency Narrative Narrative: Patient is a 67-year-old male with history of diabetes, hypertension, hyperlipidemia, cardiomyopathy, facial droop due to CVA who presents because of disorientation to time when he was speaking with someone prior to arrival. His symptoms are resolved. He also reports blurred vision for 1 week. He states his blood sugar was less than 200 this morning. He has not had any significantly elevated blood sugars. He does report urgency without hematuria or frequency. He did report slight discomfort with urination. He does not describe it as burning. He denies scrotal pain. Denies scrotal swelling or testicular pain. He denies fever, chills night sweats. He denies headache, double vision or change in vision. He denies ringing's earsdecreased hearing. He denies trouble speech or swallowing. He denies problems with coordination or balance. He denies cardiac or respiratory symptoms. He denies abdominal pain. He denies nausea, vomiting or diarrhea. Prior similar symptoms: No Recent Illness/Hospitalization: No PFSH PFSH Medical History Anxiety Chest pain Chronic pain Coronary artery disease CPAP (continuous positive airway pressure) dependence Depression Diabetic polyneuropathy Diabetic retinopathy DM2 (diabetes mellitus, type 2) Elevated lipase Elevated troponin Essential (primary) hypertension Former smoker GERD (gastroesophageal reflux disease) GI bleed Hearing loss, left Hearing loss, right Hernia History of COVID-19 Hyperlipidemia Hypothyroidism Ischemic stroke Migraine headache Myocardial infarct Narcolepsy Obstructive sleep apnea Osteoporosis Sleep apnea Vision loss of right eye Vitamin D deficiency Home Medications metoprolol tartrate 100 mg tablet 150 mg PO BID blood pressure 10/05/16 [History Last Taken 06/28/22] nortriptyline 10 mg capsule 30 mg PO DAILY migraines 10/05/16 [History Last Taken 2 Days Ago ~06/26/22] calcium carbonate 500 mg calcium (1,250 mg) tablet 650 mg PO BID supplement 08/17/17 [History Last Taken 06/28/22] cholecalciferol (vitamin D3) 25 mcg (1,000 unit) tablet (Vitamin D3) 1,000 unit PO BID vitamin 08/17/17 [History Last Taken 06/28/22] omega-3 fatty acids-fish oil 340 mg-1,000 mg capsule (Fish Oil) 1,000 mg PO BID supplement 08/17/17 [History Last Taken 06/28/22] buspirone 10 mg tablet 10 mg PO BID mood 06/17/19 [History Last Taken 06/28/22] modafinil 200 mg tablet 200 mg PO DAILY narcolepsy 06/17/19 [History Last Taken 04/03/21 08:00] aspirin 81 mg chewable tablet 81 mg PO DAILY heart health 08/17/19 [History Last Taken 06/28/22] tamsulosin 0.4 mg capsule 0.4 mg PO DAILY urine 03/30/21 [History Last Taken 06/27/22] pregabalin 100 mg capsule 200 - 300 mg PO BID pain 03/19/22 [History Last Taken 06/28/22] sertraline 150 mg capsule 150 mg PO DAILY mood 03/19/22 [History Last Taken 06/28/22] acetaminophen 500 mg tablet 1,000 mg PO Q6H PRN PRN Pain Score 1-10 #1 TAB 04/16/22 [Rx Last Taken Unknown] magnesium chloride 64 mg (magnesium chloride) tablet,delayed release (Mag 64) 128 mg PO BID #60 tabs 04/16/22 [Rx Last Taken 06/28/22] potassium chloride 20 mEq tablet,extended release(part/cryst) (Klor-Con M) 20 meq PO BIDCM #60 tabs 04/16/22 [Rx Last Taken 06/28/22] amlodipine 10 mg tablet 10 mg PO DAILY 04/30/22 [History Last Taken 06/28/22] clopidogrel 75 mg tablet 75 mg PO DAILY Check with primary doctor #90 tabs 04/30/22 [Rx Last Taken 06/28/22] furosemide 40 mg tablet 40 mg PO DAILY #90 tabs 04/30/22 [Rx Last Taken 06/28/22] sacubitril 49 mg-valsartan 51 mg tablet (Entresto) 1 tab PO BID #180 tabs 04/30/22 [Rx Last Taken 06/28/22] atorvastatin 40 mg tablet 40 mg PO DAILY CHOLESTEROL 06/28/22 [History Last Taken 06/27/22] insulin regular hum U-500 conc 500 unit/mL(3 mL) subcut pen (Humulin R U-500 (Conc) Insulin Kwikpen) 75 units subcut 1130 06/28/22 [History Last Taken 06/27/22] insulin regular hum U-500 conc 500 unit/mL(3 mL) subcut pen (Humulin R U-500 (Conc) Insulin Kwikpen) 85 units subcut 1630 06/28/22 [History Last Taken 06/27/22] insulin regular hum U-500 conc 500 unit/mL(3 mL) subcut pen (Humulin R U-500 (Conc) Insulin Kwikpen) 85 units subcut BREAKFAST 06/28/22 [History Last Taken 06/28/22] Allergy/AdvReac Type Severity Reaction Status Date / Time No Known Allergies Allergy Verified 06/28/22 10:51 Family History Mother Diabetes Father Heart disease CVA (cerebral vascular accident) Surgical History History of back surgery History of cholecystectomy History of hernia surgery Social History household members: spouse and children housing: apartment current occupational status: disabled Smoking Status: Former smoker Tobacco: How many years used: 30 how long ago did patient quit smokin alcohol intake: never substance use type: does not use diet: diabetic caffeine: Yes Type: coffee Number of servings: 1 what type of physical activity do you participate in: walking ROS ROS ED Constitutional Constitutional ED: Denies chills, fever(s), subjective, sweats or weight loss Eyes Eyes: Reports blurry vision bilateral; Denies change in vision or diplopia ENT ENT ED: Denies ear pain, rhinorrhea or sore throat Cardiovascular Cardiovascular: Denies chest pain, orthopnea, palpitations or paroxysmal nocturnal dyspnea Respiratory/Chest Respiratory/Chest: Denies cough, dyspnea, dyspnea on exertion, orthopnea or paroxysmal nocturnal dyspnea Gastrointestinal Gastrointestinal: Denies abdominal pain, diarrhea, nausea or vomiting Genitourinary Genitourinary ED: Reports dysuria; Denies hematuria or urinary frequency Musculoskeletal Musculoskeletal: Denies arthralgias, back pain, myalgias or neck pain Integumentary Denies abscess, Abrasions or rash Neurologic Neurologic: Reports weakness; Denies headache(s) or paresthesias Psychiatric Psychiatric: Reports anxiety Endocrine Endocrinology: Reports polydipsia and polyuria; Denies cold intolerance or heat intolerance Hematologic/Lymphatic Hematologic/Lymphatic: Reports systems reviewed and no addt'l complaints, exceptas documented EXAM Physical Exam Const Vital Signs: 08/23/22 13:56 Temperature 98.4 F Temperature Source Temporal Pulse Rate 68 Respiratory Rate 16 Blood Pressure 160/76 H Blood Pressure Mean 104 Pulse Ox 97 Oxygen Delivery Method Room Air Positive well nourished, well developed, obese and unkempt General Appearance ED: unkempt, well developed and NAD; Negative for cyanotic, diaphoretic or pallor Nutritional Appearance: obese HEENT Reports dry mucous membranes HEENT Narrative: Head is atraumatic normocephalic. Ears are normal. Nares are patent. Posterior pharynx is normal. Uvula is midline. There is no protrusion. Mouth ED: Yes dry mucous membranes Mouth: dry mucous membranes Eyes PERRL and EOMs intact bilaterally General Eye ED: Negative for pale conjunctiva or scleral icterus Neck no lymphadenopathy, supple and no JVD Chest Wall inspection of chest normal and palpation of chest normal Resp normal respiratory effort and clear to auscultation bilaterally Cardio regular rate, regular rhythm, S1 normal heart sound, S2 normal heart sound and no murmurs GI normal to inspection, nondistended, normoactive bowel sounds, non-tender, non-distended and no masses; Negative for hepatosplenomegaly Narrative: There is no pain over the suprapubic region. Back/Spine no CVA tenderness Extremity normal to inspection Extremity Narrative: Stigmata of peripheral arterial disease. General Extremety ED: Yes edema; Negative for tenderness General Extremity: edema Neuro oriented x3, CN's II-XII intact bilaterally and no sensory deficits noted Sensorium / Orientation: alert Motor Exam: strength 5/5 throughout Psych mental status grossly normal Appearance: unkempt Skin no rashes or lesions noted, no wounds and No skin turgor normal General Skin Exam: Negative for jaundice or pallor MDM MDM MDM Narrative Medical decision making narrative: Patient with transient disorientation to time. He also has urinary symptoms. Will obtain UA and assess for UTI, infection encephalopathy. CBC was obtained assess white count and rule out anemia. Basic metabolic panel to assess renal function and glucose. History & Record Review Additional record(s) reviewed:: Prior outpatient record and Prior labs Lab Data Attestation: I reviewed the patient's lab results. Lab results narrative: See BC is normal. Basic metabolic panel reveals an elevated BUN of 23. Creatinine is 1.3. GFR is 59. Glucose is 184 with a normal CO2 and Anion gap. UA is negative. Labs: Laboratory Results - last 24 hr 08/23/22 08/23/22 08/23/22 14:00 14:00 15:14 WBC 7.4 RBC 5.04 Hgb 15.0 Hct 43.1 MCV 85.5 MCH 29.8 MCHC 34.8 RDW Std Deviation 37.9 RDW Coeff of Eben 12.3 Plt Count 190 MPV 10.0 Immature Gran % (Auto) 0.400 Neut % (Auto) 72.2 H Lymph % (Auto) 16.9 L [place] % (Auto) 9.0 Eos % (Auto) 1.2 Baso % (Auto) 0.3 Absolute Neuts (auto) 5.3 Absolute Lymphs (auto) 1.24 Nucleated RBC % 0 Sodium 138 Potassium 3.6 Chloride 101 Carbon Dioxide 32.0 Anion Gap 5 BUN 23 H Creatinine 1.30 Estim Creat Clear Calc 50.44 Est GFR (MDRD) Af Amer 71 Est GFR (MDRD) Non-Af 59 L BUN/Creatinine Ratio 17.7 Glucose 184 H Calcium 9.1 Urine Color Yellow Urine Clarity Clear Urine pH 6.5 Ur Specific [place] 1.015 Urine Protein 30 H Urine Glucose (UA) Normal Urine Ketones Negative Urine Occult Blood 10 H Urine Nitrite Negative Urine Bilirubin Negative Urine Urobilinogen 1 H Ur Leukocyte Esterase Negative Urine RBC 0 SEEN Urine WBC 0 SEEN Ur Squamous Epith Cells 0 SEEN Urine Bacteria 0 SEEN Urine Mucus 0 SEEN Treatment and Re-Evaluation :: Patient was informed of his results. Since he had a transient period of disorientation to time he was discharged to home. This could be due to age/dementia. Discharge Plan Triage Chief Complaint: Confusion ED Provider: Real Mendoza Dx/Rx/DC Orders Clinical Impression: Disoriented to time, Cardiomyopathy, Hyperlipemia, Essential hypertension, Diabetes Instructions: ED ALOC Prescriptions: No Action amlodipine 10 mg tablet 10 mg PO DAILY Entresto 49-51 mg tablet 1 tab PO BID Qty: 180 3RF clopidogrel 75 mg tablet 75 mg PO DAILY Qty: 90 3RF furosemide 40 mg tablet 40 mg PO DAILY Qty: 90 3RF metoprolol tartrate 100 MG tablet 150 mg PO BID nortriptyline 10 MG capsule 30 mg PO DAILY calcium carbonate 500 MG tablet 650 mg PO BID Fish Oil 1 EACH capsule 1,000 mg PO BID cholecalciferol (vitamin D3) [Vitamin D3] 1,000 UNIT tablet 1,000 unit PO BID modafinil 200 MG tablet 200 mg PO DAILY buspirone 10 MG tablet 10 mg PO BID aspirin 81 MG tablet,chewable 81 mg PO DAILY tamsulosin 0.4 mg Capsule 0.4 mg PO DAILY pregabalin 100 mg Capsule 200 - 300 mg PO BID sertraline 150 mg Capsule 150 mg PO DAILY acetaminophen 500 mg Tablet 1,000 mg PO Q6H PRN PRN (Reason: Pain Score 1-10) Qty: 1 0RF potassium chloride [Klor-Con M20] 20 mEq Tablet,Er Particles/Crystals 20 meq PO BIDCM Qty: 60 0RF Mag 64 64 mg Tablet,Delayed Release (Dr/Ec) 128 mg PO BID Qty: 60 0RF atorvastatin 40 mg Tablet 40 mg PO DAILY Humulin R U-500 (Conc) Kwikpen 500 unit/mL (3 mL) insulin pen 85 units subcut BREAKFAST Humulin R U-500 (Conc) Kwikpen 500 unit/mL (3 mL) insulin pen 75 units subcut 1130 Humulin R U-500 (Conc) Kwikpen 500 unit/mL (3 mL) insulin pen 85 units subcut 1630 [facility] Provider: [facility] Referrals: [facility] [Primary Care Provider] - Disposition Disposition: Home, Self Care What to do if you have Problems For any increased pain, shortness of breath, bleeding, nausea or vomiting, chestpain, or any unexpected problems, contact your Primary Care Provider. Call [facility] ([phone]) or report to the closest Emergency Room. Call 911 if necessary. 08/23/22 1618 <Electronically signed by Real Mendoza MD> Cosigner Signature (if applicable): CC: [facility] ~ Signed [facility] Work Phone: [phone] Hospital Discharge instructions Additional Instructions Date of Discharge: 06/02/22[facility] Work Phone: Evaluation noteNo assessment information available [facility] Work Phone: Evaluhespw note* Diagnosis Onset Date Resolution Status Acute CVA (cerebrovascular accident) acute Elevated troponin acute DM2 (diabetes mellitus, type 2) chronic Essential (primary) hypertension [facility] Work Phone: Evaluation note* Diagnosis Onset Date Resolution Status Acute CVA (cerebrovascular accident) acute Elevated troponin acute Ischemic stroke acute DM2 (diabetes mellitus, type 2) chronic Essential (primary) hypertension [facility] Work Phone: Evaluation note* Diagnosis Onset Date Resolution Status DM2 (diabetes mellitus, type 2) chronic Acute left-sided weakness ac [place] Cardiomyopathy acute Debility acute Facial droop due to acute ce rebrovascular accident (CVA) acute Right pontine stroke acute Coronary artery disease contact lens blocker and cutter malou Diabetic polyneuropathy contact lens blocker and cutter malou DM2 (diabetes mellitus, type 2) chronic Hyperlipidemia chronic Hypertension chronic Narcolepsy chronic Obstructive sleep apnea contact lens blocker and cutter malou Acute systolic CHF (congestive heart failure) resolved Hypomagnesemia resolved [facility] Work Phone: Evaluation note* Diagnosis Onset Date Resolution Status Acute left-sided weakness ac [place] Cardiomyopathy acute Debility acute Facial droop due to acute ce rebrovascular accident (CVA) acute Right pontine stroke acute Hypertension chronic Acute systolic CHF (congestive heart failure) resolved Hypomagnesemia resolved Cardiomyopathy acute Essential hypertension acute Hyperlipemia acute Right pontine stroke acute [facility] Work Phone: Evaluation note* Diagnosis Onset Date Resolution Status Acute left-sided weakness ac [place] Cardiomyopathy acute Debility acute Facial droop due to acute ce rebrovascular accident (CVA) acute Right pontine stroke acute Hypertension chronic Acute systolic CHF (congestive heart failure) resolved Hypomagnesemia resolved Cardiomyopathy acute Essential hypertension acute Hyperlipemia acute Right pontine stroke acute Diabetes acute Essential hypertension acute Fall acute Lightheadedness acute Orthostatic hypotension acut e [facility] Work Phone: Evaluation note* Diagnosis Onset Date Resolution Status Acute left-sided weakness ac [place] Cardiomyopathy acute Debility acute Facial droop due to acute ce rebrovascular accident (CVA) acute Right pontine stroke acute Hypertension chronic Acute systolic CHF (congestive heart failure) resolved Hypomagnesemia resolved Cardiomyopathy acute Essential hypertension acute Hyperlipemia acute Right pontine stroke acute Diabetes acute Essential hypertension acute Fall resolved Lightheadedness resolved Orthostatic hypotension reso lved [facility] Work Phone: Evaluation note* Diagnosis Onset Date Resolution Status Acute left-sided weakness ac [place] Cardiomyopathy acute Debility acute Facial droop due to acute ce rebrovascular accident (CVA) acute Right pontine stroke acute Hypertension chronic Acute systolic CHF (congestive heart failure) resolved Hypomagnesemia resolved Cardiomyopathy acute Essential hypertension acute Hyperlipemia acute Right pontine stroke acute Diabetes acute Essential hypertension acute Fall resolved Lightheadedness resolved Orthostatic hypotension reso lved Acute left-sided weakness ac [place] [facility] Work Phone: Evaluation note* Diagnosis Onset Date Resolution Status Cardiomyopathy acute Essential hypertension acute Hyperlipemia acute Right pontine stroke acute Diabetes acute Essential hypertension acute Fall resolved Lightheadedness resolved Orthostatic hypotension reso lved Acute left-sided weakness re solved [facility] Work Phone: Evaluation note* Diagnosis Puncture wound- Primary Open wound(s) (multiple) of unspecified site(s), without mention of complication documented in this encounter [facility] Discharge instructions Additional Instructions Please follow-up for your blood pressure, please follow-up with your acute pancreatitis with your PCP. Please have a bland diet, clear liquids for the next 24 hours. Please use pain medicine, nausea medicine as needed. Please return for any worsening symptoms.[facility] Work Phone: Chief Complaint and Reason for Visit Chief Complaint hypertension Chief Complaint CVA Reason for Visit Acute CVA (cerebrova scular accident) Elevated troponin DM2 (diabetes mellitus, type 2) Essential (primary) hypertension Chief Complaint LOWER EXTREMITY WEAK NESS, DYSARTHRIA LOWER EXTREMITY WEAKNESS, DYSARTHRIA LOWER EXTREMITY WEAKNESS, DYSARTHRIA LOWER EXTREMITY WEAKNESS, DYSARTHRIA LOWER EXTREMITY WEAKNESS, DYSARTHRIA Reason for Visit Acute CVA (cerebrova scular accident) Elevated troponin Ischemic stroke DM2 (diabetes mellitus, type 2) Essential (primary) hypertension Chief Complaint LOWER EXTREMITY WEAK NESS, DYSARTHRIA LOWER EXTREMITY WEAKNESS, DYSARTHRIA LOWER EXTREMITY WEAKNESS, DYSARTHRIA LOWER EXTREMITY WEAKNESS, DYSARTHRIA LOWER EXTREMITY WEAKNESS, DYSARTHRIA Post stroke Debility Cerebrovascular accident Cerebrovascular accident Cerebrovascular accident Cerebrovascular accident Cerebrovascular accident Cerebrovascular accident Cerebrovascular accident Cerebrovascular accident Cerebrovascular accident Reason for Visit DM2 (diabetes mellit us, type 2) Acute left-sided weakness Cardiomyopathy Debility Facial droop due to acute cerebrovascular accident (CVA) Right pontine stroke Coronary artery disease Diabetic polyneuropathy DM2 (diabetes mellitus, type 2) Hyperlipidemia Hypertension Narcolepsy Obstructive sleep apnea Acute systolic CHF (congestive heart failure) Hypomagnesemia Chief Complaint LOWER EXTREMITY WEAK NESS, DYSARTHRIA LOWER EXTREMITY WEAKNESS, DYSARTHRIA LOWER EXTREMITY WEAKNESS, DYSARTHRIA LOWER EXTREMITY WEAKNESS, DYSARTHRIA LOWER EXTREMITY WEAKNESS, DYSARTHRIA Post stroke Debility Cerebrovascular accident Cerebrovascular accident Cerebrovascular accident Cerebrovascular accident Cerebrovascular accident Cerebrovascular accident Cerebrovascular accident Cerebrovascular accident Cerebrovascular accident Post stroke Debility s/p TIA hypotension Reason for Visit Acute left-sided [place]a kness Cardiomyopathy Debility Facial droop due to acute cerebrovascular accident (CVA) Right pontine stroke Hypertension Acute systolic CHF (congestive heart failure) Hypomagnesemia Cardiomyopathy Essential hypertension Hyperlipemia Right pontine stroke Chief Complaint LOWER EXTREMITY WEAK NESS, DYSARTHRIA LOWER EXTREMITY WEAKNESS, DYSARTHRIA LOWER EXTREMITY WEAKNESS, DYSARTHRIA LOWER EXTREMITY WEAKNESS, DYSARTHRIA LOWER EXTREMITY WEAKNESS, DYSARTHRIA Post stroke Debility Cerebrovascular accident Cerebrovascular accident Cerebrovascular accident Cerebrovascular accident Cerebrovascular accident Cerebrovascular accident Cerebrovascular accident Cerebrovascular accident Cerebrovascular accident Post stroke Debility s/p TIA hypotension ORTHOSTATIC HYPOTENSION Reason for Visit Acute left-sided [place] ac Cardiomyopathy Debility Facial droop due to acute cerebrovascular accident (CVA) Right pontine stroke Hypertension Acute systolic CHF (congestive heart failure) Hypomagnesemia Cardiomyopathy Essential hypertension Hyperlipemia Right pontine stroke Diabetes Essential hypertension Fall Lightheadedness Orthostatic hypotension Chief Complaint LOWER EXTREMITY WEAK NESS, DYSARTHRIA LOWER EXTREMITY WEAKNESS, DYSARTHRIA LOWER EXTREMITY WEAKNESS, DYSARTHRIA LOWER EXTREMITY WEAKNESS, DYSARTHRIA LOWER EXTREMITY WEAKNESS, DYSARTHRIA Post stroke Debility Cerebrovascular accident Cerebrovascular accident Cerebrovascular accident Cerebrovascular accident Cerebrovascular accident Cerebrovascular accident Cerebrovascular accident Cerebrovascular accident Cerebrovascular accident Post stroke Debility s/p TIA hypotension ORTHOSTATIC HYPOTENSION ORTHOSTATIC HYPOTENSION Reason for Visit Acute left-sided [place] ac Cardiomyopathy Debility Facial droop due to acute cerebrovascular accident (CVA) Right pontine stroke Hypertension Acute systolic CHF (congestive heart failure) Hypomagnesemia Cardiomyopathy Essential hypertension Hyperlipemia Right pontine stroke Diabetes Essential hypertension Fall Lightheadedness Orthostatic hypotension Chief Complaint LOWER EXTREMITY WEAK NESS, DYSARTHRIA LOWER EXTREMITY WEAKNESS, DYSARTHRIA LOWER EXTREMITY WEAKNESS, DYSARTHRIA LOWER EXTREMITY WEAKNESS, DYSARTHRIA LOWER EXTREMITY WEAKNESS, DYSARTHRIA Post stroke Debility Cerebrovascular accident Cerebrovascular accident Cerebrovascular accident Cerebrovascular accident Cerebrovascular accident Cerebrovascular accident Cerebrovascular accident Cerebrovascular accident Cerebrovascular accident Post stroke Debility s/p TIA hypotension ORTHOSTATIC HYPOTENSION ORTHOSTATIC HYPOTENSION POSSIBLE CVA Reason for Visit Acute left-sided [place] ac Cardiomyopathy Debility Facial droop due to acute cerebrovascular accident (CVA) Right pontine stroke Hypertension Acute systolic CHF (congestive heart failure) Hypomagnesemia Cardiomyopathy Essential hypertension Hyperlipemia Right pontine stroke Diabetes Essential hypertension Fall Lightheadedness Orthostatic hypotension Chief Complaint LOWER EXTREMITY WEAK NESS, DYSARTHRIA LOWER EXTREMITY WEAKNESS, DYSARTHRIA LOWER EXTREMITY WEAKNESS, DYSARTHRIA LOWER EXTREMITY WEAKNESS, DYSARTHRIA LOWER EXTREMITY WEAKNESS, DYSARTHRIA Post stroke Debility Cerebrovascular accident Cerebrovascular accident Cerebrovascular accident Cerebrovascular accident Cerebrovascular accident Cerebrovascular accident Cerebrovascular accident Cerebrovascular accident Cerebrovascular accident Post stroke Debility s/p TIA hypotension ORTHOSTATIC HYPOTENSION ORTHOSTATIC HYPOTENSION POSSIBLE CVA POSSIBLE CVA POSSIBLE CVA POSSIBLE CVA Reason for Visit Acute left-sided [place] Cardiomyopathy Debility Facial droop due to acute cerebrovascular accident (CVA) Right pontine stroke Hypertension Acute systolic CHF (congestive heart failure) Hypomagnesemia Cardiomyopathy Essential hypertension Hyperlipemia Right pontine stroke Diabetes Essential hypertension Fall Lightheadedness Orthostatic hypotension Acute left-sided weakness Chief Complaint s/p TIA hypotension ORTHOSTATIC HYPOTENSION ORTHOSTATIC HYPOTENSION POSSIBLE CVA POSSIBLE CVA POSSIBLE CVA POSSIBLE CVA confusion Reason for Visit Cardiomyopathy Essential hypertension Hyperlipemia Right pontine stroke Diabetes Essential hypertension Fall Lightheadedness Orthostatic hypotension Acute left-sided weakness Chief Complaint HEAD INJURY, FALL Family History No Family History Records Found Relationship Condition Age at Onset Recorded Date/T ab mother Diabetes mellitus Unknown father Cardiac disease Unknown Cerebrovascular accident (CVA) Unknown Advance Directives No Advanced Directives Records Found Advance Directive Response Recorded Date/ Time Living Will Yes October 05, 2021 3:48pm Power of Space Control Agent Yes October 05 3:48pm Advance Directive Response Recorded Date/ Time Living Will Yes March 16 3:47pm Power of Space Control Agent No March 16 3:47pm Advance Directive Response Recorded Date/ Time Living Will No March 21 11:55am Power of Space Control Agent No March 21 11:55am Advance Directive Response Recorded Date/ Time Name of Medical Power of Space Control Agent Viji Cruz May 07, 2022 7:31am Living Will Yes May 07 7:31am Power of Space Control Agent Yes May 07, 2022 7:31am Advance Directive Response Recorded Date/ Time Name of Medical Power of Space Control Agent Viji Cruz May 07, 2022 7:31am Name of Medical Power of Space Control Agent skylar cruz June 01, 2022 3:27pm Living Will Yes June 01 3:27pm Power of Space Control Agent Yes June 01, 2022 3:27pm Advance Directive Response Recorded Date/ Time Name of Medical Power of Space Control Agent Viji Cruz May 07, 2022 7:31am Name of Medical Power of Space Control Agent Viji Cruz June 01, 2022 8:38pm Living Will Yes June 01 8:38pm Power of Space Control Agent Yes June 01, 2022 8:38pm Advance Directive Response Recorded Date/ Time Name of Medical Power of Space Control Agent Viji Cruz May 07, 2022 7:31am Name of Medical Power of Space Control Agent Viji Cruz June 01, 2022 8:38pm Name of Medical Power of Space Control Agent June 28, 2022 10:51am Living Will Yes June 28 10:51am Power of Space Control Agent Yes June 28, 2022 10:51am Advance Directive Response Recorded Date/ Time Name of Medical Power of Space Control Agent Viji Cruz May 07, 2022 7:31am Name of Medical Power of Space Control Agent Viji Cruz June 01, 2022 8:38pm Name of Medical Power of Space Control Agent Viji Cruz June 28, 2022 12:30pm Living Will Yes June 28 12:30pm Power of Space Control Agent Yes June 28, 2022 12:30pm Advance Directive Response Recorded Date/ Time Name of Medical Power of Space Control Agent Viji Cruz May 07, 2022 7:31am Name of Medical Power of Space Control Agent Viji Cruz June 01, 2022 8:38pm Name of Medical Power of Space Control Agent Viji Cruz June 28, 2022 12:30pm Name of Medical Power of Space Control Agent Viji Cruz August 23, 2022 2:00pm Living Will Yes August 23, 2022 2:00pm Power of Space Control Agent Yes August 23 2:00pm Advance Directive Response Recorded Date/ Time Living Will Yes January 18, 2023 7:34am Power of Space Control Agent Yes January 18 7:34am Name of Medical Power of Space Control Agent . January 18, 2023 7:34am Summary Purpose Additional Source Comments Goals (unrecognized section and content) Goals may be documented in a n alternate sectionGoals may be documented in an alternate sectionGoals may be documented in an alternate section Care Teams (unrecognized sec tion and content) Team Status: Active Member Role Status Dates [facility] Family Provider Active [facility] Primary Care Provider Active Team Status: Inactive Member Role Status Dates [facility] Primary Care Provider, Referring Provider Active Zeynep Blackman PA, PA Attending Provider Active Team Status: Active Member Role Status Dates [facility] Primary Care Provider Active Dr. Carlo Santana , Emergency Provider Active Dr. Rocael Walls MD Admit Provider, Other Provide r Active Dr. Tr Gutierrez MD Attending Provider, Other Provid er Active Team Status: Active Member Role Status Dates [facility] Primary Care Provider Active Dr. Carlo Santana , Emergency Provider Active Dr. Tr Gutierrez MD Admit Provider, At tending Provider, Other Provider Active Team Status: Inactive Member Role Status Dates [facility] Primary Care Provider Active Dr. Jil Dinero MD Attending Provider, Emergency Provider Active Team Status: Inactive Member Role Status Dates [facility] Primary Care Provider Active Dr. Carlo Santana , Emergency Provider Active Dr. Rocael Walls MD Admit Provider, Other Provide r Active Dr. Tr Gutierrez MD Attending Provider Active Team Status: Inactive Member Role Status Dates [facility] Primary Care Provider Active Dr. Carlo Santana DO Emergency Provider Active Dr. Tr Gutierrez MD Admit Provider, Attending Provid er Active Team Status: Inactive Member Role Status [facility] Primary Care Provider Active Dr. Real Mendoza MD Emergency Provider Active Team Status: Inactive Member Role Status [facility] Primary Care Provider Active Dr. Carlo Santana DO Emergency Provider Active Source Comments (unrecognize d section and content) In the event this informatio n is protected by the Federal Confidentiality of Alcohol and Drug Abuse Patient Records regulations: The Federal rules restrict any use of the information to criminally investigate or prosecute any alcohol or drug abuse patient.[facility] Reason for Visit (unrecogniz ed section and content) Reason Comments Dog Bite his dog, x 2 weeks, accident, right wrist and forearm (unrecognized sect ion and content) No Status Records FoundNo Status Records Found INFORMATION SOURCE (unrecogn ized section and content) DATE CREATED AUTHOR 04/27/2023 [facility] DATE CREATED AUTHOR AUTHOR'S KEVIN BEYCINDY 07/08/2024 [facility] FOR RECORDS PERTAINING TO PATIENTS WHO ARE OR HAVE BEEN ENROLLED IN A CHEMICAL DEPENDENCY/SUBSTANCEABUSE PROGRAM, SOME INFORMATION MAY BE OMITTED. This clinical summary was aggregated from multiple sources. Caution should be exercised in using it in the provision of clinical care. This summary normalizes information from multiple sources, and as a consequence, information in this document may materially change the coding, format and clinical context of patient data. In addition, data may be omitted in some cases. CLINICAL DECISIONS SHOULD BE BASED ON THE PRIMARY CLINICAL RECORDS. [employer] [facility]. provides no warranty or guarantee of the accuracy or completeness of information in this document.
== END 2025-04-30 12:18 | disposition home or self-care (01) ==
LOC: ED 12:09
PROVIDERS: Emergency Provider Emergency Medicine; Visit Provider Emergency Medicine
DX: M79.672 Pain in left foot (principal); E11.40 Type 2 diabetes mellitus with diabetic neuropathy, unspecified; H54.7 Unspecified visual loss; E55.9 Vitamin D deficiency, unspecified; F41.9 Anxiety disorder, unspecified; I10 Essential (primary) hypertension; E78.00 Pure hypercholesterolemia, unspecified; G47.33 Obstructive sleep apnea (adult) (pediatric); R74.8 Abnormal levels of other serum enzymes; G89.29 Other chronic pain; E03.9 Hypothyroidism, unspecified; I25.10 Atherosclerotic heart disease of native coronary artery without angina pectoris; M81.0 Age-related osteoporosis without current pathological fracture; H91.93 Unspecified hearing loss, bilateral; Z90.49 Acquired absence of other specified parts of digestive tract; Z87.891 Personal history of nicotine dependence; Z99.89 Dependence on other enabling machines and devices; I25.2 Old myocardial infarction; Z79.899 Other long term (current) drug therapy; Z86.16 Personal history of COVID-19; Z86.73 Personal history of transient ischemic attack (TIA), and cerebral infarction without residual deficits
CPT/HCPCS: 99282